=== PATIENT | female | born 1940 | race Caucasian/White ===

== ENCOUNTER 2017-07-27 16:49 | Inpatient (IN) | payer MEDICARE, SELFPAY ==
[2017-07-27] VITALS (15 sets, daily range): BP systolic 124–160; BP diastolic 57–112; PULSE 88–135; RESP 16–28; TEMP 36.9–37.1; O2SAT 94–100; BMI 30.7; BMI 30.8
--- NOTE | 2017-07-27 17:00 | EKG12_ITS ---
Test Reason : CP/SOB Blood Pressure : / mmHG Vent. Rate : 104 BPM Atrial Rate : 104 BPM P-R Int : 168 ms QRS Dur : 090 ms QT Int : 366 ms P-R-T Axes : 075 -05 166 degrees QTc Int : 481 ms Sinus tachycardia Left ventricular hypertrophy with repolarization abnormality , inferior lateral ischemia Abnormal ECG Confirmed by SILVINA CHEW, NILSON ([id number]), editor greeting card THAD HOOKER ([id number]) on 08/01/2017 9:07:45 AM Referred By: DR PEREZ Confirmed By:NILSON COOL MD
--- NOTE | 2017-07-27 17:09 | CT_ITS ---
STUDY: CTA CHEST REASON FOR EXAM: Female, 77 years old. Extreme shortness of breath and abdominal pain RADIATION DOSAGE (If Supplied By Facility): CTDIvol = ( 22.83 ) mGy, DLP = ( 1308.29 ) mGycm TECHNIQUE: The examination was performed with the intravenous administration of 100ML ml of Isovue 370 contrast material. Post-processing of the angiographic images was performed, with multiplanar reformation and 3D reconstruction. Individualized dose optimization techniques were used for this CT. COMPARISON: None. FINDINGS: Unremarkable thyroid Normal enhancement of the main pulmonary artery and right and left pulmonary arteries. Normal enhancement of the bilateral peripheral pulmonary arteries. There is no demonstrated pulmonary embolism. Normal thoracic aorta and visualized great vessels. There is no demonstrated aortic dissection. There is cardiomegaly. Normal pericardium. Several small mediastinal lymph nodes. Normal hilar regions. Normal visualized trachea and bronchi. Lungs are mildly hypoinflated. Diffuse interstitial edema and vascular congestion is noted with air trapping. Bibasilar consolidation and effusions. Normal chest wall structures. There are degenerative changes of thoracic spine. IMPRESSION: 1. Negative for pulmonary embolism or thoracic aortic dissection. Diffuse interstitial edema, vascular congestion and CHF with bibasilar effusions 2. Small mediastinal lymph nodes Electronically Signed: Jhoan Myers DO at 19:06 EST Tel , Service support , STUDY: CTA OF THE ABDOMINAL AORTA REASON FOR EXAM: Female, 77 years old. Abdominal pain RADIATION DOSAGE (If Supplied By Facility): CTDIvol = ( ) mGy, DLP = ( ) mGycm TECHNIQUE: Axial CT angiography multi-detector data acquisition was obtained from the hemidiaphragms to the pubic symphysis following intravenous administration of 100ML ml of Isovue 370 contrast. Axial images and MIP images were reconstructed from the axial data set. Post-processing of the angiographic images was performed, with multiplanar reformation and 3D reconstruction. Individualized dose optimization techniques were used for this CT. TECHNICAL QUALITY: Good COMPARISON: None. Descriptors of Narrowing: None (0%) Mild (< 50%) Moderate (50-70%) Severe (70-90%) Subtotal/Total Occlusion (90-100%) Non-Evaluable (technically non-diagnostic FINDINGS: Abdominal aorta: There is mild diffuse narrowing. Celiac and superior mesenteric arteries: There is moderate diffuse narrowing. Inferior mesenteric artery: No demonstrated narrowing. Right renal artery(arteries): There is moderate diffuse narrowing. Left renal artery(arteries): There is mild diffuse narrowing. Right common iliac artery: There is mild diffuse narrowing. Right external iliac artery: There is mild diffuse narrowing. Right internal iliac artery: There is mild diffuse narrowing. Left common iliac artery: There is mild diffuse narrowing. Left external iliac artery: There is mild diffuse narrowing. Left internal iliac artery: There is mild diffuse narrowing. Grossly unremarkable liver outside of nodular contour suggesting cirrhosis. Status post cholecystectomy. Unremarkable spleen. Heavily calcified splenic artery. Fatty atrophy of the pancreas. Unremarkable adrenal glands. Mild atrophy of the kidneys, otherwise within normal limits. Unremarkable stomach and small bowel. Large bowel demonstrates chronic diverticulosis without evidence of acute diverticulitis. Nonvisualized appendix. No concerning lymphadenopathy. Unremarkable bladder. Atrophy of the uterus. No pelvic free fluid. Small fat-containing periumbilical hernia. Osseous degenerative changes CT/CTA Pelvis W/WO Contrast IMPRESSION: Mild to moderate atherosclerotic disease of the abdominal aorta with mild narrowing. 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 Remainder as detailed above. No dissection or aneurysm. Electronically Signed: Jhoan Myers DO at 19:09 EST Tel , Service support ,
--- NOTE | 2017-07-27 17:09 | CT_ITS ---
STUDY: CTA CHEST REASON FOR EXAM: Female, 77 years old. Extreme shortness of breath and abdominal pain RADIATION DOSAGE (If Supplied By Facility): CTDIvol = ( 22.83 ) mGy, DLP = ( 1308.29 ) mGycm TECHNIQUE: The examination was performed with the intravenous administration of 100ML ml of Isovue 370 contrast material. Post-processing of the angiographic images was performed, with multiplanar reformation and 3D reconstruction. Individualized dose optimization techniques were used for this CT. COMPARISON: None. FINDINGS: Unremarkable thyroid Normal enhancement of the main pulmonary artery and right and left pulmonary arteries. Normal enhancement of the bilateral peripheral pulmonary arteries. There is no demonstrated pulmonary embolism. Normal thoracic aorta and visualized great vessels. There is no demonstrated aortic dissection. There is cardiomegaly. Normal pericardium. Several small mediastinal lymph nodes. Normal hilar regions. Normal visualized trachea and bronchi. Lungs are mildly hypoinflated. Diffuse interstitial edema and vascular congestion is noted with air trapping. Bibasilar consolidation and effusions. Normal chest wall structures. There are degenerative changes of thoracic spine. IMPRESSION: 1. Negative for pulmonary embolism or thoracic aortic dissection. Diffuse interstitial edema, vascular congestion and CHF with bibasilar effusions 2. Small mediastinal lymph nodes Electronically Signed: Jhoan Myers DO at 19:06 EST Tel , Service support , STUDY: CTA OF THE ABDOMINAL AORTA REASON FOR EXAM: Female, 77 years old. Abdominal pain RADIATION DOSAGE (If Supplied By Facility): CTDIvol = ( ) mGy, DLP = ( ) mGycm TECHNIQUE: Axial CT angiography multi-detector data acquisition was obtained from the hemidiaphragms to the pubic symphysis following intravenous administration of 100ML ml of Isovue 370 contrast. Axial images and MIP images were reconstructed from the axial data set. Post-processing of the angiographic images was performed, with multiplanar reformation and 3D reconstruction. Individualized dose optimization techniques were used for this CT. TECHNICAL QUALITY: Good COMPARISON: None. Descriptors of Narrowing: None (0%) Mild (< 50%) Moderate (50-70%) Severe (70-90%) Subtotal/Total Occlusion (90-100%) Non-Evaluable (technically non-diagnostic FINDINGS: Abdominal aorta: There is mild diffuse narrowing. Celiac and superior mesenteric arteries: There is moderate diffuse narrowing. Inferior mesenteric artery: No demonstrated narrowing. Right renal artery(arteries): There is moderate diffuse narrowing. Left renal artery(arteries): There is mild diffuse narrowing. Right common iliac artery: There is mild diffuse narrowing. Right external iliac artery: There is mild diffuse narrowing. Right internal iliac artery: There is mild diffuse narrowing. Left common iliac artery: There is mild diffuse narrowing. Left external iliac artery: There is mild diffuse narrowing. Left internal iliac artery: There is mild diffuse narrowing. Grossly unremarkable liver outside of nodular contour suggesting cirrhosis. Status post cholecystectomy. Unremarkable spleen. Heavily calcified splenic artery. Fatty atrophy of the pancreas. Unremarkable adrenal glands. Mild atrophy of the kidneys, otherwise within normal limits. Unremarkable stomach and small bowel. Large bowel demonstrates chronic diverticulosis without evidence of acute diverticulitis. Nonvisualized appendix. No concerning lymphadenopathy. Unremarkable bladder. Atrophy of the uterus. No pelvic free fluid. Small fat-containing periumbilical hernia. 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 Remainder as detailed above. No dissection or aneurysm. Electronically Signed: Jhoan Myers DO at 19:09 EST Tel , Service support ,
--- NOTE | 2017-07-27 17:09 | CT_ITS ---
STUDY: CTA CHEST REASON FOR EXAM: Female, 77 years old. Extreme shortness of breath and abdominal pain RADIATION DOSAGE (If Supplied By Facility): CTDIvol = ( 22.83 ) mGy, DLP = ( 1308.29 ) mGycm TECHNIQUE: The examination was performed with the intravenous administration of 100ML ml of Isovue 370 contrast material. Post-processing of the angiographic images was performed, with multiplanar reformation and 3D reconstruction. Individualized dose optimization techniques were used for this CT. COMPARISON: None. FINDINGS: Unremarkable thyroid Normal enhancement of the main pulmonary artery and right and left pulmonary arteries. Normal enhancement of the bilateral peripheral pulmonary arteries. There is no demonstrated pulmonary embolism. Normal thoracic aorta and visualized great vessels. There is no demonstrated aortic dissection. There is cardiomegaly. Normal pericardium. Several small mediastinal lymph nodes. Normal hilar regions. Normal visualized trachea and bronchi. Lungs are mildly hypoinflated. Diffuse interstitial edema and vascular congestion is noted with air trapping. Bibasilar consolidation and effusions. Normal chest wall structures. There are degenerative changes of thoracic spine. IMPRESSION: 1. Negative for pulmonary embolism or thoracic aortic dissection. Diffuse interstitial edema, vascular congestion and CHF with bibasilar effusions 2. Small mediastinal lymph nodes Electronically Signed: Jhoan Myers DO at 19:06 EST Tel , Service support , STUDY: CTA OF THE ABDOMINAL AORTA REASON FOR EXAM: Female, 77 years old. Abdominal pain RADIATION DOSAGE (If Supplied By Facility): CTDIvol = ( ) mGy, DLP = ( ) mGycm TECHNIQUE: Axial CT angiography multi-detector data acquisition was obtained from the hemidiaphragms to the pubic symphysis following intravenous administration of 100ML ml of Isovue 370 contrast. Axial images and MIP images were reconstructed from the axial data set. Post-processing of the angiographic images was performed, with multiplanar reformation and 3D reconstruction. Individualized dose optimization techniques were used for this CT. TECHNICAL QUALITY: Good COMPARISON: None. Descriptors of Narrowing: None (0%) Mild (< 50%) Moderate (50-70%) Severe (70-90%) Subtotal/Total Occlusion (90-100%) Non-Evaluable (technically non-diagnostic FINDINGS: Abdominal aorta: There is mild diffuse narrowing. Celiac and superior mesenteric arteries: There is moderate diffuse narrowing. Inferior mesenteric artery: No demonstrated narrowing. Right renal artery(arteries): There is moderate diffuse narrowing. Left renal artery(arteries): There is mild diffuse narrowing. Right common iliac artery: There is mild diffuse narrowing. Right external iliac artery: There is mild diffuse narrowing. Right internal iliac artery: There is mild diffuse narrowing. Left common iliac artery: There is mild diffuse narrowing. Left external iliac artery: There is mild diffuse narrowing. Left internal iliac artery: There is mild diffuse narrowing. Grossly unremarkable liver outside of nodular contour suggesting cirrhosis. Status post cholecystectomy. Unremarkable spleen. Heavily calcified splenic artery. Fatty atrophy of the pancreas. Unremarkable adrenal glands. Mild atrophy of the kidneys, otherwise within normal limits. Unremarkable stomach and small bowel. Large bowel demonstrates chronic diverticulosis without evidence of acute diverticulitis. Nonvisualized appendix. No concerning lymphadenopathy. Unremarkable bladder. Atrophy of the uterus. No pelvic free fluid. Small fat-containing periumbilical hernia. 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 Remainder as detailed above. No dissection or aneurysm. Electronically Signed: Jhoan Myers DO at 19:09 EST Tel , Service support ,
[2017-07-27] MEDS: Ipratropium/Albuterol Sulfate 3 ML AMPUL.NEB INHALATION (17:42)
[2017-07-27] MEDS: Albuterol 2.5 MG/3 ML VIAL.NEB. INHALATION ×3 (17:42)
[2017-07-27] MEDS: LORazepam 1 MG Tablet PO (17:47)
[2017-07-27 18:18] LABS: Mucous, Urine 0 SEEN /hpf (<or=2+); White Blood Cells 0 SEEN /hpf (0-5)
[2017-07-27 18:20] LABS: Color, Urine Yellow (Yellow); Glucose, Dipstick 250 mg/dl (Normal); Ketone-Dipstick Negative (Negative); Leukocyte Esterase-Dipstick Negative /ul (Negative); Nitrite-Dipstick Negative (Negative); Occult Blood-Urine 25 /ul (Negative); Protein-Dipstick 500 mg/dl (Negative); Urine Bilirubin Dipstick Negative (Negative); Urine Clarity Sl. Cloudy (Clear); Urine Urobilinogen 1 mg/dl (Normal)
[2017-07-27 18:26] LABS: Absolute Lymphocyte Count 1.26 X10^3/ul (0.83-4.51); Absolute Neutrophil Count 3.8 X10^3/uL (2.0-7.7); Basophil# 0.03 X10^3/uL; Basophil% 0.5 % (0-1); Eosinophil# 0.18 X10^3/uL; Eosinophils% 3.3 % (0-5); Hematocrit 40.4 % (37-47); Lymphocyte # 1.26 X10^3/ul (4.0); Mean Corp Hgb Conc 32.2 g/gl (32-36); Mean Corpuscular Hgb 30.4 pg (27.0-32.0); Mean Corpuscular Volume 94.6 fL (81-99); Mean Platelet Vol. 9.8 fl (6.2-12.0); Monocyte# 0.25 X10^3/uL; Monocyte% 4.6 % (0-10); Neutrophil # 3.76 X10^3/uL (2.7-7.7); Neutrophil % 68.4 % (47-70); POSITIVE COUNT NO; POSITIVE DIFFERENTIAL NO; POSITIVE MORPHOLOGY NO; Platelet Count 132 K/mm3 (150-450); RBC Distribution Width CV 13.8 % (11.6-14.6); RBC Distribution Width SD 47.7 fl (35.1-43.9); Red Blood Count 4.27 M/mm3 (4.2-5.4); White Blood Count 5.5 K/mm3 (4.4-11.0)
[2017-07-27 18:29] LABS: Amorphous Sediment 2+ URATE; Bacteria RARE /hpf (None Seen); Hyaline Cast 0-5 SEEN /lpf (0-5); Red Blood Cells-Urine 5-10 SEEN /hpf (0-5); Squamous Epithelial Cells - UA 0-5 SEEN /hpf (5-10)
[2017-07-27] MEDS: Ondansetron 4 MG/2 ML Vial IV (18:37)
--- NOTE | 2017-07-27 18:41 | ED.VISSUMM ---
- ER Visit Summary Date of Service: 07/27/17 Chief Complaint: Shortness of breath History of Present Illness: The patient is a 77 F presenting with shortness of breath. Patient states that she suddenly became short of breath today. She is having trouble taking a deep breath. She is agitated on arrival. She complains of abdominal pain. She initially denies chest pain. She is agitated and continually states that she cannot breathe. Physical Examination: Vitals are stable. Patient is afebrile. Alert mild distress. HEENT exam is unremarkable. Neck is supple. Lungs are diminished bilaterally. Tachypnea. Retractions. Heart is regular and tachycardic. Abdomen is soft nontender nondistended. No guarding or rebound Extremities are unremarkable. Skin is warm and dry. No focal neurologic deficit. Remainder of exam is unremarkable. Emergency Department Course and Treatment: Patient refuses nonrebreather mask as well as BiPAP. She states she is unable to tolerate the mask. She was given Ativan p.o. She had some improvement and we are able to obtain an IV and blood work. EKG shows sinus tachycardia rate 104 with LVH, inferior lateral ST depression. This is changed from previous. CBC shows platelets 132. Chemistries show glucose 267. Urinalysis shows 5-10 red blood cells otherwise unremarkable. Troponin is 0.69. Lactic acid 3.9. When her lactic acid returned at 3.9 she was given IV fluids. She then had a CTA chest abdomen pelvis which showed no PE or dissection. Diffuse edema, vascular congestion, CHF. Bilateral effusions. CT abdomen and pelvis shows no evidence of dissection. Fluids were stopped and she was given IV Lasix. On repeat evaluation she has no chest pain. She has mild upper abdominal pain. She is resting comfortably on nasal cannula. Discussed with Dr. Rodas for admission. Disposition: Admission Impression: CHF exacerbation, elevated troponin This note was generated with [employer] dictation software. It may contain incorrect words, spelling, and punctuation that were not noted in review of the chart prior to signing ED Disposition - Plan for ED Patient: Chief Complaint: Shortness of Breath Referrals: Diana Cohen MD [Primary Care Provider] -
[2017-07-27] MEDS: Aspirin 81 MG TAB.CHEW 324 MG PO (18:42)
[2017-07-27 18:49] LABS: Lactic Acid 3.9 mmol/L (0.4-2.0)
[2017-07-27 18:51] LABS: Anion Gap 10 (5-15); BUN 11 mg/dL (7-18); BUN/Creat Ratio 15.1 RATIO (10-20); Chloride 104 mmol/L (98-107); Creatinine, Serum 0.73 mg/dL (0.55-1.02); EST Glomerular Filtration Rate 82 mL/min (>60); Est Glom Filt Rate - Afr Amer 99 mL/min (>60); Estimated Creatinine Clearance 45.09 ml/min; Glucose 267 mg/dL (70-110); Sodium Level 139 mmol/L (136-145)
--- NOTE | 2017-07-27 18:56 | ED.RN ---
LACTIC ACID 3.9 AND TROP 0.[address] LAB. DR PEREZ AWARE
[2017-07-27] MEDS: Furosemide 40 MG/4 ML Vial IV (20:00)
--- NOTE | 2017-07-27 20:49 | PCM.HP.STD ---
Problem List (1) Obesity (BMI 30.0-34.9) Status: Chronic (2) CAD (coronary artery disease) Status: Chronic Qualifiers: Coronary Disease-Associated Artery/Lesion type: unspecified vessel or lesion type [place] vs. 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 of insulin; Z79.4 - shelter (current) use of insulin; Z79.4 - assistant terminal manager (current) use of insulin; Z79.4 - shelter (current) use of insulin (4) Hyperlipidemia Status: Chronic Qualifiers: Hyperlipidemia type: unspecified Qualified Code(s): E78.5 - Hyperlipidemia, unspecified (5) Hypothyroidism Status: Chronic Qualifiers: Hypothyroidism type: unspecified Qualified Code(s): E03.9 - Hypothyroidism, unspecified (6) Hypertension Status: Chronic Qualifiers: Hypertension type: essential hypertension Qualified Code(s): I10 - Essential (primary) hypertension (7) Cognitive changes Status: Chronic (8) Pancytopenia Status: Chronic (9) S/P PTCA (percutaneous transluminal coronary angioplasty) Status: Chronic (10) Mitral valve insufficiency Status: Chronic Qualifiers: Cardiac valve disease etiology: etiology unspecified Qualified Code(s): I34.0 - Nonrheumatic mitral (valve) insufficiency (11) Tricuspid valve insufficiency Status: Chronic Qualifiers: Cardiac valve disease etiology: etiology unspecified Qualified Code(s): I07.1 - Rheumatic tricuspid insufficiency (12) CHF (congestive heart failure) Status: Chronic Qualifiers: Congestive heart failure type: diastolic Congestive heart failure chronicity: chronic Qualified Code(s): I50.32 - Chronic diastolic (congestive) heart failure (13) Venous insufficiency Status: Chronic History of Present Illness Date of Admission: 07/27/17 Chief Complaint: Dsypnea, epigastric pain The patient is a 77 y/o F w/ PMHx: Obesity, CAD, HTN, HLD, Diabetes mellitus type II, Chronic Pancytopenia, Valvular Heart Disease, PVD, Diastolic CHF, Cognitive changes, Hypothyroidism, recent admission 06/30/17-07/03/17 w/ NSTEMI, acute diastolic CHF exacerbation with notable history multivessel CAD not amenable to PCI w/ transfer to [facility] for consideration for CABG x 2 however declined per patient who now re-presents to the [facility] ED on 07/27/17 w/ progressively worsening dyspnea over the last several days, severely worse today with onset additionally epigastric pain with nausea. In the ED she was initially very agitated, would not calm down, noting severe shortness of breath with increased RR, accessory muscle usage, diaphoresis, but was eventually given ativan and following interventions and work-up were initiated. In the ED work-up included T 98.5, heart rate 125, BP 127/86, respiratory rate 25, 95% on 6 L nasal cannula, unremarkable CBC, BMP with glucose 267, lactic acid 3.9, troponin 0 0.69 with most recent end STEMI admission with last troponin 06/30/17 1.11, UA without evidence of UTI, influenza rapid negative, EKG w/ sinus tachycardia with inferior ST depressions worse than prior, CTA abdomen with moderate atherosclerotic disease of the abdominal aorta with mild narrowing, atherosclerotic disease of the takeoff of the SMA and bilateral renal arteries with mild to moderate ring with no evidence of dissection or aneurysm, CTA Chest w/ no evidence of PE or thoracic aortic dissection, diffuse interstitial edema, vascular congestion with bibasilar effusions, small mediastinal lymph nodes noted. In the ED patient administered zofran, ativan, lasix 40 mg IV x 1, asa 325 mg po x 1, duonebs, albuterol. Past Medical History Past Medical History (Chronic Problems): Chronic Problems Obesity (BMI 30.0-34.9) (Chronic) CAD (coronary artery disease) (Chronic) Diabetes mellitus, type II (Chronic) Hyperlipidemia (Chronic) Hypothyroidism (Chronic) Hypertension (Chronic) Cognitive changes (Chronic) Pancytopenia (Chronic) S/P PTCA (percutaneous transluminal coronary angioplasty) (Chronic) Mitral valve insufficiency (Chronic) Tricuspid valve insufficiency (Chronic) Intermittent claudication (Chronic) CHF (congestive heart failure) (Chronic) Venous insufficiency (Chronic) Allergies atorvastatin calcium [From Lipitor] Adverse Reaction (Verified 06/30/17 04:58) Unknown rosiglitazone maleate [From Avandia] Adverse Reaction (Verified 06/30/17 04:58) Other Home Medications: Ambulatory Orders Medication Instructions Recorded Aspirin [Aspirin, Baby] 81 mg PO DAILY@0800 06/30/17 Carvedilol [Coreg] 12.5 mg PO BID 06/30/17 Clopidogrel Bisulfate [Clopidogrel] 75 mg PO DAILY 06/30/17 Furosemide [Lasix] 40 mg PO DAILY 06/30/17 Insulin Glargine,Hum.rec.anlog 30 unit SQ DAILY 06/30/17 [[place]o Solostar] Insulin Regular, Human [Humulin R] 0 unit ACHS 06/30/17 Isosorbide Mononitrate [Isosorbide 30 mg PO DAILY 06/30/17 Mononitrate ER] Levothyroxine [Synthroid] 175 mcg PO DAILY 06/30/17 Losartan Potassium [Cozaar] 50 mg PO DAILY 06/30/17 Nitroglycerin [Nitrostat] 0.4 mg SL PRN PRN 06/30/17 Potassium Chloride [K-Tab ER] 8 meq PO DAILY 06/30/17 Pravastatin [Pravachol] 80 mg PO DAILY 06/30/17 Ranolazine [Ranexa] 500 mg PO BID 06/30/17 TraMADol [Ultram] 50 mg PO BID PRN 07/02/17 Surgical History: angioplasty, appendectomy, cholecystectomy, tonsillectomy, - - Spinal fusion Psychiatric History: No pertinent psych hx 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 Denies: Chills, Fever, Weight Change HEENT: Denies: Head Aches, Sinus Congestion, Sinus Drainage Cardiovascular: Denies: Chest Pain, Palpitations Respiratory: Reports: Shortness of Breath, Shortness of breath at rest, Shortness of breath upon exertion. Denies: Cough, Sputum production, Wheezing Gastrointestinal: Reports: Abdominal Pain, Nausea. Denies: Vomiting Genitourinary: Denies: Dysuria Musculoskeletal: Denies: Joint Pain, Joint Tenderness Skin: Denies: Rash, Wounds Neurological: Denies: Numbness, Tingling, Focal weakness Psychiatric: Denies: Anxiety, Depression, Homicidal Ideations, Suicidal Ideations Hematologic/ Lymphatic: Reports: Anemia, Easy Bruising, Easy Bleeding VTE Information - Inpt Only VTE Present on Admission: No VTE Mechan Device Prophylaxis: SCD's VTE Pharm Prophylaxis ordered?: Yes Subjective: Seated upright in the ED, currently more calm, RR decreased from initial presentation, not currently using accessory muscles which has improved since initial presentation. Objective: Physical Examination: General: awake, alert, oriented x 3 and cooperative, seated upright in the ED bed, now calm, improved RR, improved lessened accessory muscle usage. Skin: normal color, turgor, no icterus, cyanosis except occasional strongly ecchymoses. HEENT: AT/NC, EOMI, PERRLA, MMM, no carotid bruits, + JVD noted. Lungs: Severely diminished breath sounds diffusely, greater bases, close to midlung bilaterally, poor effort, no wheezing. Heart: Tachycardic with regular rhythm; no gallop, rub audible. Abdomen: soft, obese, NTTP, ND, normal BS, no HSM. Extremities: no cyanosis, clubbing, BL LE 2+ pitting edema foot to proximal thigh, L >R which is chronic she notes. Neurological: patient awake, alert, oriented x 3; cognitive function baseline intact, baseline decreased; pupils equally reactive to light and accomodation; cranial nerves II-XII grossly normal, moving all 4 extremities, no focal deficits, strength severely globally decreased secondary to acute presentation. Psychiatric: affect appears flat, no acute evidence of depressive or anxiety feelings. - Physical Exam Vital Signs Temp Pulse Resp BP Pulse Ox 98.5 F 104 H 19 H 144/78 H 100 07/27/17 20:00 07/27/17 20:00 07/27/17 20:00 07/27/17 20:00 07/27/17 20:00 Oxygen Flow Rate 4 Oxygen Delivery Method Nasal Cannula Weight: 196 lb 6.557 oz Body Mass Index (BMI) 30.7 Finger Stick Blood Glucose 270 Microbiology Past 72 Hours 07/27/17 17:35 Influenza Types A,B Direct FA (TARUN) - Final Mucosa - Nasopharyngeal Laboratory Tests Past 24 Hrs 07/27/17 07/27/17 07/27/17 18:00 18:00 18:00 WBC 5.5 RBC 4.27 Hgb 13.0 Hct 40.4 MCV 94.6 MCH 30.4 MCHC 32.2 RDW 13.8 RDW Differential 47.7 H Plt Count 132 L MPV 9.8 Immature Gran % (Auto) 0.200 Neut % (Auto) 68.4 Lymph % (Auto) 23.0 [place] % (Auto) 4.6 Eos % (Auto) 3.3 Baso % (Auto) 0.5 Absolute Neuts (auto) 3.8 Absolute Lymphs (auto) 1.26 Total Counted Not Reportable Sodium 139 Potassium 4.0 Chloride 104 Carbon Dioxide 25.0 Anion Gap 10 BUN 11 Creatinine 0.73 Estim Creat Clear Calc 45.09 Est GFR (MDRD) Af Amer 99 Est GFR (MDRD) Non-Af 82 BUN/Creatinine Ratio 15.1 Glucose 267 H Lactic Acid 3.9 H Calcium 9.0 Troponin I 0.69 H* Urine Color Urine Clarity Urine pH Ur Specific [place] Urine Protein Urine Glucose (UA) Urine Ketones Urine Occult Blood Urine Nitrite Urine Bilirubin Urine Urobilinogen Ur Leukocyte Esterase Urine RBC Urine WBC Ur Squamous Epith Cells Amorphous Sediment Urine Bacteria Hyaline Casts Urine Mucus 07/27/17 18:15 WBC RBC Hgb Hct MCV MCH MCHC RDW RDW Differential Plt Count MPV Immature Gran % (Auto) Neut % (Auto) Lymph % (Auto) [place] % (Auto) Eos % (Auto) Baso % (Auto) Absolute Neuts (auto) Absolute Lymphs (auto) Total Counted Sodium Potassium Chloride Carbon Dioxide Anion Gap BUN Creatinine Estim Creat Clear Calc Est GFR (MDRD) Af Amer Est GFR (MDRD) Non-Af BUN/Creatinine Ratio Glucose Lactic Acid Calcium Troponin I Urine Color Yellow Urine Clarity Sl. Cloudy Urine pH 6.0 Ur Specific [place] 1.020 Urine Protein 500 H Urine Glucose (UA) 250 H Urine Ketones Negative Urine Occult Blood 25 H Urine Nitrite Negative Urine Bilirubin Negative Urine Urobilinogen 1 H Ur Leukocyte Esterase Negative Urine RBC 5-10 SEEN Urine WBC 0 SEEN Ur Squamous Epith Cells 0-5 SEEN Amorphous Sediment 2+ URATE Urine Bacteria RARE Hyaline Casts 0-5 SEEN Urine Mucus 0 SEEN Assessment/Plan The patient is a 77 y/o F w/ PMHx: Obesity, CAD, HTN, HLD, Diabetes mellitus type II, Chronic Pancytopenia, Valvular Heart Disease, PVD, Diastolic CHF, Cognitive changes, Hypothyroidism, recent admission 06/30/17-07/03/17 w/ NSTEMI, acute diastolic CHF exacerbation with notable history multivessel CAD not amenable to PCI w/ transfer to [facility] for consideration for CABG x 2 however declined per patient who now re-presents to the [facility] ED on 07/27/17 w/ progressively worsening dyspnea over the last several days, severely worse today with onset additionally epigastric pain with nausea. (1) Acute Hypoxic Respiratory Failure secondary to Acute Decompensated Diastolic CHF: CTPA obtained in the ED w/ notable congestion, BL effusions, no evidence dissection or aneurysm on CTA abdomen and chest. Patient administered IV lasix in the ED, will admit to PCU, maintain on cardiac telemetry, obtain cardiac enzyme series, obtain serial EKGs, continue IV lasix diuresis, monitor I/Os, maintain on intake restriction, continue medical therapy w/ asa, statin, BB, ACEI, aldosterone antagonists. Will obtain TSH and magnesium level. Most recent ECHO noted 2014 thus will repeat. Cardiology consulted, pending. PRN morphine to decrease afterload, continue oxygen supplementation, if necessary will position w/ upright position with legs off bed to decrease preload. (2) Recent NSTEMI w/ Epigastric Discomfort w/ Inferior EKG depressions (Prior Noted Admission also): Unclear specific etiology, recent admission w/ NSTEMI w/ CAD w/ transfer to [facility] for CABG x 2 which she then declined and notes still declines currently. Admission trop 0.69, last 1.11 prior to this, will as noted maintain on telemetry, cycle cardiac enzymes, obtain magnesium and supplement if needed, repeat EKG in AM. Will obtain lipase also given atypical presentation. Maintain on asa, plavix, statin, coreg, ARB, isosorbide. Will consult Cardiology as noted #1. (2) Diabetes mellitus type II: Hold oral home regimen, continue home insulin regimen, ADA diet, accu checks w/ ISS. (3) CAD: Multivessel disease as noted, not candidate for PCI thus prior admission with transition to [facility] for planned CABG however she declined. Will continue home regimen asa, plavix, statin, BB. (4) Hypertension: Continue home regimen including Coreg, losartan, IV Lasix as noted, isosorbide, PRN hydralazine. (5) Hyperlipidemia: Continue home statin regimen. AM FLP. (6) Hypothyroidism: Continue home synthroid regimen, TSH pending. (7) Obesity: Weight loss and lifestyle changes encouraged. (8) DVT prophylaxis: SCD, lovenox. (9) CODE status: Discussed CODE status at length including difference between FULL code, DNR-CCA and DNR-CC status. Following discussions about the differences in these status, requested continued FULL CODE despite lengthy discussions about recent refusal of CABG. Advanced Care Planning Face to Face Time: 25 minutes. Code Visit Inpatient E&M: 84711 Init Hosp L3 Procedures: 72581 Advncd Care Plan 30 Min
--- NOTE | 2017-07-27 21:00 | HP.PCM_ITS ---
Problem List (1) Obesity (BMI 30.0-34.9) Status: Chronic (2) CAD (coronary artery disease) Status: Chronic Qualifiers: Coronary Disease-Associated Artery/Lesion type: unspecified vessel or lesion type [place] vs. transplanted heart: unspecified whether [place] or transplanted heart Associated angina: angina presence unspecified Qualified Code(s): I25.10 - Atherosclerotic heart disease of [place] coronary artery without angina pectoris (3) Diabetes mellitus, type II Status: Chronic Qualifiers: Diabetes mellitus complication status: with unspecified complications Diabetes mellitus [facility] insulin use: with [facility] use Qualified Code(s) : E11.8 - Type 2 diabetes mellitus with unspecified complications; Z79.4 - [facility] (current) use of insulin; Z79.4 - technician terminal and repeater (current) use of insulin; Z79.4 - technician terminal and repeater (current) use of insulin; Z79.4 - [facility] (current) use of insulin (4) Hyperlipidemia Status: Chronic Qualifiers: Hyperlipidemia type: unspecified Qualified Code(s): E78.5 - Hyperlipidemia , unspecified (5) Hypothyroidism Status: Chronic Qualifiers: Hypothyroidism type: unspecified Qualified Code(s): E03.9 - Hypothyroidism , unspecified (6) Hypertension Status: Chronic Qualifiers: Hypertension type: essential hypertension Qualified Code(s): I10 - Essential (primary) hypertension (7) Cognitive changes Status: Chronic (8) Pancytopenia Status: Chronic (9) S/P PTCA (percutaneous transluminal coronary angioplasty) Status: Chronic (10) Mitral valve insufficiency Status: Chronic Qualifiers: Cardiac valve disease etiology: etiology unspecified Qualified Code(s): I34.0 - Nonrheumatic mitral (valve) insufficiency (11) Tricuspid valve insufficiency Status: Chronic Qualifiers: Cardiac valve disease etiology: etiology unspecified Qualified Code(s): I07.1 - Rheumatic tricuspid insufficiency (12) CHF (congestive heart failure) Status: Chronic Qualifiers: Congestive heart failure type: diastolic Congestive heart failure chronicity: chronic Qualified Code(s): I50.32 - Chronic diastolic (congestive ) heart failure (13) Venous insufficiency Status: Chronic History of Present Illness Date of Admission: 07/27/17 Chief Complaint: Dsypnea, epigastric pain The patient is a 77 y/o F w/ PMHx: Obesity, CAD, HTN, HLD, Diabetes mellitus type II, Chronic Pancytopenia, Valvular Heart Disease, PVD, Diastolic CHF, Cognitive changes, Hypothyroidism, recent admission 06/30/17-07/03/17 w/ NSTEMI , acute diastolic CHF exacerbation with notable history multivessel CAD not amenable to PCI w/ transfer to [facility] for consideration for CABG x 2 however declined per patient who now re-presents to the [facility] ED on 07/27/17 w/ progressively worsening dyspnea over the last several days, severely worse today with onset additionally epigastric pain with nausea. In the ED she was initially very agitated, would not calm down, noting severe shortness of breath with increased RR, accessory muscle usage, diaphoresis, but was eventually given ativan and following interventions and work-up were initiated. In the ED work-up included T 98.5, heart rate 125, BP 127/86, respiratory rate 25, 95% on 6 L nasal cannula, unremarkable CBC, BMP with glucose 267, lactic acid 3.9, troponin 0 0.69 with most recent end STEMI admission with last troponin 1.11, UA without evidence of UTI, influenza rapid negative, EKG w/ sinus tachycardia with inferior ST depressions worse than prior, CTA abdomen with moderate atherosclerotic disease of the abdominal aorta with mild narrowing, atherosclerotic disease of the takeoff of the SMA and bilateral renal arteries with mild to moderate ring with no evidence of dissection or aneurysm, CTA Chest w/ no evidence of PE or thoracic aortic dissection, diffuse interstitial edema, vascular congestion with bibasilar effusions, small mediastinal lymph nodes noted. In the ED patient administered zofran, ativan, lasix 40 mg IV x 1, asa 325 mg po x 1, duonebs, albuterol. Past Medical History Past Medical History (Chronic Problems): Chronic Problems Obesity (BMI 30.0-34.9) (Chronic) CAD (coronary artery disease) (Chronic) Diabetes mellitus, type II (Chronic) Hyperlipidemia (Chronic) Hypothyroidism (Chronic) Hypertension (Chronic) Cognitive changes (Chronic) Pancytopenia (Chronic) S/P PTCA (percutaneous transluminal coronary angioplasty) (Chronic) Mitral valve insufficiency (Chronic) Tricuspid valve insufficiency (Chronic) Intermittent claudication (Chronic) CHF (congestive heart failure) (Chronic) Venous insufficiency (Chronic) Allergies atorvastatin calcium [From Lipitor] Adverse Reaction (Verified 06/30/17 04:58) Unknown rosiglitazone maleate [From Avandia] Adverse Reaction (Verified 06/30/17 04:58) Other Home Medications: Ambulatory Orders Medication Instructions Recorded Aspirin [Aspirin, Baby] 81 mg PO DAILY@0800 06/30/17 Carvedilol [Coreg] 12.5 mg PO BID 06/30/17 Clopidogrel Bisulfate [Clopidogrel] 75 mg PO DAILY 06/30/17 Furosemide [Lasix] 40 mg PO DAILY 06/30/17 Insulin Glargine,Hum.rec.anlog 30 unit SQ DAILY 06/30/17 [Toujeo Solostar] Insulin Regular, Human [Humulin R] 0 unit ACHS 06/30/17 Isosorbide Mononitrate [Isosorbide 30 mg PO DAILY 06/30/17 Mononitrate ER] Levothyroxine [Synthroid] 175 mcg PO DAILY 06/30/17 Losartan Potassium [Cozaar] 50 mg PO DAILY 06/30/17 Nitroglycerin [Nitrostat] 0.4 mg SL PRN PRN 06/30/17 Potassium Chloride [K-Tab ER] 8 meq PO DAILY 06/30/17 Pravastatin [Pravachol] 80 mg PO DAILY 06/30/17 Ranolazine [Ranexa] 500 mg PO BID 06/30/17 TraMADol [Ultram] 50 mg PO BID PRN 07/02/17 Surgical History: angioplasty, appendectomy, cholecystectomy, tonsillectomy, - - Spinal fusion Psychiatric History: No pertinent psych hx LEAD CASTER History: No pertinent LEAD CASTER history Lives: Alone Smoking Status: Never smoker Tobacco Use: Non-smoker Alcohol: None Drugs: None - *Family History Maternal History Items: No pertinent history Paternal History Items: No pertinent history Review of Systems Constitutional: Reports: Malaise, Weakness, Fatigue. Denies: Chills, Fever, Weight Change HEENT: Denies: Head Aches, Sinus Congestion, Sinus Drainage Cardiovascular: Denies: Chest Pain, Palpitations Respiratory: Reports: Shortness of Breath, Shortness of breath at rest, Shortness of breath upon exertion. Denies: Cough, Sputum production, Wheezing Gastrointestinal: Reports: Abdominal Pain, Nausea. Denies: Vomiting Genitourinary: Denies: Dysuria Musculoskeletal: Denies: Joint Pain, Joint Tenderness Skin: Denies: Rash, Wounds Neurological: Denies: Numbness, Tingling, Focal weakness Psychiatric: Denies: Anxiety, Depression, Homicidal Ideations, Suicidal Ideations Hematologic/ Lymphatic: Reports: Anemia, Easy Bruising, Easy Bleeding VTE Information - Inpt Only VTE Present on Admission: No VTE Mechan Device Prophylaxis: SCD's VTE Pharm Prophylaxis ordered?: Yes Subjective: Seated upright in the ED, currently more calm, RR decreased from initial presentation, not currently using accessory muscles which has improved since initial presentation. Objective: Physical Examination: General: awake, alert, oriented x 3 and cooperative, seated upright in the ED bed, now calm, improved RR, improved lessened accessory muscle usage. Skin: normal color, turgor, no icterus, cyanosis except occasional strongly ecchymoses. HEENT: AT/NC, EOMI, PERRLA, MMM, no carotid bruits, + JVD noted. Lungs: Severely diminished breath sounds diffusely, greater bases, close to midlung bilaterally, poor effort, no wheezing. Heart: Tachycardic with regular rhythm; no gallop, rub audible. Abdomen: soft, obese, NTTP, ND, normal BS, no HSM. Extremities: no cyanosis, clubbing, BL LE 2+ pitting edema foot to proximal thigh, L >R which is chronic she notes. Neurological: patient awake, alert, oriented x 3; cognitive function baseline intact, baseline decreased; pupils equally reactive to light and accomodation; cranial nerves II-XII grossly normal, moving all 4 extremities, no focal deficits, strength severely globally decreased secondary to acute presentation. Psychiatric: affect appears flat, no acute evidence of depressive or anxiety feelings. - Physical Exam Vital Signs Temp Pulse Resp BP Pulse Ox 98.5 F 104 H 19 H 144/78 H 100 07/27/17 20:00 07/27/17 20:00 07/27/17 20:00 07/27/17 20:00 07/27/17 20:00 Oxygen Flow Rate 4 Oxygen Delivery Method Nasal Cannula Weight: 196 lb 6.557 oz Body Mass Index (BMI) 30.7 Finger Stick Blood Glucose 270 Microbiology Past 72 Hours 07/27/17 17:35 Influenza Types A,B Direct FA (TARUN) - Final Mucosa - Nasopharyngeal Laboratory Tests Past 24 Hrs 07/27/17 07/27/17 07/27/17 18:00 18:00 18:00 WBC 5.5 RBC 4.27 Hgb 13.0 Hct 40.4 MCV 94.6 MCH 30.4 MCHC 32.2 RDW 13.8 RDW Differential 47.7 H Plt Count 132 L MPV 9.8 Immature Gran % (Auto) 0.200 Neut % (Auto) 68.4 Lymph % (Auto) 23.0 [place] % (Auto) 4.6 Eos % (Auto) 3.3 Baso % (Auto) 0.5 Absolute Neuts (auto) 3.8 Absolute Lymphs (auto) 1.26 Total Counted Not Reportable Sodium 139 Potassium 4.0 Chloride 104 Carbon Dioxide 25.0 Anion Gap 10 BUN 11 Creatinine 0.73 Estim Creat Clear Calc 45.09 Est GFR (MDRD) Af Amer 99 Est GFR (MDRD) Non-Af 82 BUN/Creatinine Ratio 15.1 Glucose 267 H Lactic Acid 3.9 H Calcium 9.0 Troponin I 0.69 H* Urine Color Urine Clarity Urine pH Ur Specific [place] Urine Protein Urine Glucose (UA) Urine Ketones Urine Occult Blood Urine Nitrite Urine Bilirubin Urine Urobilinogen Ur Leukocyte Esterase Urine RBC Urine WBC Ur Squamous Epith Cells Amorphous Sediment Urine Bacteria Hyaline Casts Urine Mucus 07/27/17 18:15 WBC RBC Hgb Hct MCV MCH MCHC RDW RDW Differential Plt Count MPV Immature Gran % (Auto) Neut % (Auto) Lymph % (Auto) [place] % (Auto) Eos % (Auto) Baso % (Auto) Absolute Neuts (auto) Absolute Lymphs (auto) Total Counted Sodium Potassium Chloride Carbon Dioxide Anion Gap BUN Creatinine Estim Creat Clear Calc Est GFR (MDRD) Af Amer Est GFR (MDRD) Non-Af BUN/Creatinine Ratio Glucose Lactic Acid Calcium Troponin I Urine Color Yellow Urine Clarity Sl. Cloudy Urine pH 6.0 Ur Specific [place] 1.020 Urine Protein 500 H Urine Glucose (UA) 250 H Urine Ketones Negative Urine Occult Blood 25 H Urine Nitrite Negative Urine Bilirubin Negative Urine Urobilinogen 1 H Ur Leukocyte Esterase Negative Urine RBC 5-10 SEEN Urine WBC 0 SEEN Ur Squamous Epith Cells 0-5 SEEN Amorphous Sediment 2+ URATE Urine Bacteria RARE Hyaline Casts 0-5 SEEN Urine Mucus 0 SEEN Assessment/Plan The patient is a 77 y/o F w/ PMHx: Obesity, CAD, HTN, HLD, Diabetes mellitus type II, Chronic Pancytopenia, Valvular Heart Disease, PVD, Diastolic CHF, Cognitive changes, Hypothyroidism, recent admission 06/30/17-07/03/17 w/ NSTEMI , acute diastolic CHF exacerbation with notable history multivessel CAD not amenable to PCI w/ transfer to [facility] for consideration for CABG x 2 however declined per patient who now re-presents to the [facility] ED on 07/27/17 w/ progressively worsening dyspnea over the last several days, severely worse today with onset additionally epigastric pain with nausea. (1) Acute Hypoxic Respiratory Failure secondary to Acute Decompensated Diastolic CHF: CTPA obtained in the ED w/ notable congestion, BL effusions, no evidence dissection or aneurysm on CTA abdomen and chest. Patient administered IV lasix in the ED, will admit to PCU, maintain on cardiac telemetry, obtain cardiac enzyme series, obtain serial EKGs, continue IV lasix diuresis, monitor I /Os, maintain on intake restriction, continue medical therapy w/ asa, statin, BB , ACEI, aldosterone antagonists. Will obtain TSH and magnesium level. Most recent ECHO noted 2014 thus will repeat. Cardiology consulted, pending. PRN morphine to decrease afterload, continue oxygen supplementation, if necessary will position w/ upright position with legs off bed to decrease preload. (2) Recent NSTEMI w/ Epigastric Discomfort w/ Inferior EKG depressions (Prior Noted Admission also): Unclear specific etiology, recent admission w/ NSTEMI w/ CAD w/ transfer to [facility] for CABG x 2 which she then declined and notes still declines currently. Admission trop 0.69, last 1.11 prior to this, will as noted maintain on telemetry, cycle cardiac enzymes, obtain magnesium and supplement if needed, repeat EKG in AM. Will obtain lipase also given atypical presentation. Maintain on asa, plavix, statin, coreg, ARB, isosorbide. Will consult Cardiology as noted #1. (2) Diabetes mellitus type II: Hold oral home regimen, continue home insulin regimen, ADA diet, accu checks w/ ISS. (3) CAD: Multivessel disease as noted, not candidate for PCI thus prior admission with transition to [facility] for planned CABG however she declined. Will continue home regimen asa, plavix, statin, BB. (4) Hypertension: Continue home regimen including Coreg, losartan, IV Lasix as noted, isosorbide, PRN hydralazine. (5) Hyperlipidemia: Continue home statin regimen. AM FLP. (6) Hypothyroidism: Continue home synthroid regimen, TSH pending. (7) Obesity: Weight loss and lifestyle changes encouraged. (8) DVT prophylaxis: SCD, lovenox. (9) CODE status: Discussed CODE status at length including difference between FULL code, DNR-CCA and DNR-CC status. Following discussions about the differences in these status, requested continued FULL CODE despite lengthy discussions about recent refusal of CABG. Advanced Care Planning Face to Face Time: 25 minutes. Code Visit Inpatient E&M: 41975 Init Hosp L3 Procedures: 95893 Advncd Care Plan 30 Min
[2017-07-27 22:14] LABS: Reflex Lactate? Y
[2017-07-28] VITALS (12 sets, daily range): BP systolic 95–115; BP diastolic 44–69; PULSE 64–80; RESP 15–18; TEMP 36.1–36.9; O2SAT 95–100
[2017-07-28] MEDS: Furosemide 40 MG/4 ML Vial IV ×4 (00:29→21:17)
[2017-07-28] MEDS: Ranolazine 500 MG Tablet PO ×3 (00:29→21:17)
[2017-07-28] MEDS: Carvedilol 12.5 MG Tablet PO ×3 (00:29→21:17)
[2017-07-28] MEDS: Enoxaparin 40 MG/0.4 ML Syringe SC (00:29)
[2017-07-28] MEDS: Famotidine 20 MG Tablet PO ×3 (00:29→21:17)
[2017-07-28 00:46] LABS: Bedside Glucose 292 mg/dL (70-110)
[2017-07-28 00:57] LABS: Lactic Acid 1.8 mmol/L (0.4-2.0)
[2017-07-28 01:19] LABS: Lipase 106 U/L (73-393); Thyroid Stim Hormone (TSH) 0.06 uIU/mL (0.358-3.74)
[2017-07-28] MEDS: Enoxaparin 60 MG/0.6 ML Syringe 50 MG SC (01:45)
[2017-07-28 04:57] LABS: Absolute Lymphocyte Count 0.92 X10^3/ul (0.83-4.51); Absolute Neutrophil Count 3.3 X10^3/uL (2.0-7.7); Basophil# 0.02 X10^3/uL; Basophil% 0.4 % (0-1); Eosinophil# 0.03 X10^3/uL; Eosinophils% 0.6 % (0-5); Hematocrit 35.7 % (37-47); Hemoglobin 11.5 g/dl (12.0-15.0); Lymphocyte # 0.92 X10^3/ul (4.0); Lymphocyte % 19.4 % (19-41); Mean Corp Hgb Conc 32.2 g/gl (32-36); Mean Corpuscular Hgb 31.2 pg (27.0-32.0); Mean Corpuscular Volume 96.7 fL (81-99); Mean Platelet Vol. 9.9 fl (6.2-12.0); Monocyte# 0.44 X10^3/uL; Monocyte% 9.3 % (0-10); Neutrophil # 3.32 X10^3/uL (2.7-7.7); Neutrophil % 70.1 % (47-70); Platelet Count 100 K/mm3 (150-450); RBC Distribution Width CV 13.9 % (11.6-14.6); RBC Distribution Width SD 47.4 fl (35.1-43.9); Red Blood Count 3.69 M/mm3 (4.2-5.4); White Blood Count 4.7 K/mm3 (4.4-11.0)
[2017-07-28] MEDS: Levothyroxine 175 MCG Tablet PO (05:12)
[2017-07-28 05:15] LABS: POSITIVE COUNT NO; POSITIVE DIFFERENTIAL NO; POSITIVE MORPHOLOGY NO
--- NOTE | 2017-07-28 05:55 | ECHOD_ITS ---
Reason For Study: CHF Procedure This was a 2D Doppler, Color Flow transthoracic echocardiogram. Exam performed portable in patient room. Left Ventricle Normal LV size. Mild concentric left ventricular hypertrophy. The estimated ejection fraction is 25 %. Moderately severe segmental systolic dysfunction (see wall motion). [place] : Akinetic. Mid- anteroseptal : Akinetic. There is moderate to severe global hypokinesis of the left ventricle. Right Ventricle Normal RV size. Normal systolic function. Atria The left atrium is mildly enlarged. Normal right atrium. Mitral Valve There is mild mitral annular calcification. Mild-Moderate (1-2+) eccentric mitral valve insufficiency. Tricuspid Valve Normal tricuspid valve. Mild to moderate (1-2+) tricuspid valve insufficiency. Pulmonary artery systolic pressure is 50 mmHg. Moderate pulmonary hypertension. Aortic Valve Trisinus/trileaflet aortic valve. Mild focal aortic valve calcification. Mild aortic stenosis. Mean aortic valve gradient is 6 mmHg. Pulmonic Valve Normal pulmonic valve. Great Vessels Normal aortic root. The pulmonary artery is normal size. Normal inferior vena cava. Pericardium/Pleural No pericardial effusion. MMode/2D Measurements & Calculations LVIDd: 4.8 cm IVSd: 1.4 cm LVOT diam: 2.0 cm LVIDs: 3.0 cm LVPWd: 1.4 cm LVOT area: 3.2 cm2 RVDd: 3.6 cm FS: 37.4 % Ao root diam: 3.0 cm LAV(MOD-bp): 68.5 ml LVAd ap4: 40.7 cm2 LA dimension: 4.1 cm LAV(MOD-bp) Indexed: 34.2 ml/m2 EDV(MOD-sp4): 146.2 ml LAV(MOD-sp2): 64.0 ml EDV(sp4-el): 146.5 ml LAV(MOD-sp4): 65.8 ml LVAs ap4: 26.8 cm2 ESV(MOD-sp4): 76.0 ml ESV(sp4-el): 78.3 ml EF(MOD-sp4): 48.0 % EF(sp4-el): 46.6 % SV(MOD-sp4): 70.3 ml SV(sp4-el): 68.3 ml LA A4 area: 21.7 cm2 RA A4 area: 15.7 cm2 Time Measurements MV dec time: 0.22 sec Doppler Measurements & Calculations MV E max melo: 114.3 cm/sec Lat Peak E' Melo: 6.4 cm/sec Med Peak E' Melo: 5.9 cm/sec MV A max melo: 104.1 cm/sec E/E' lat: 17.9 E/E' med: 19.3 MV E/A: 1.1 MV V2 max: 126.2 cm/sec MV P1/2t max melo: 127.1 cm/sec Ao V2 max: 180.8 cm/sec MV max P.4 mmHg MV P1/2t: 86.1 msec Ao max P.1 mmHg MV V2 mean: 72.1 cm/sec MV dec slope: 432.5 cm/sec2 Ao V2 mean: 116.5 cm/sec MV mean P.4 mmHg MVA(P1/2t): 2.6 cm2 Ao mean P.1 mmHg MV V2 VTI: 34.6 cm Ao V2 VTI: 38.0 cm MVA(VTI): 2.0 cm2 CASH(I,D): 1.8 cm2 CASH(V,D): 1.7 cm2 LV V1 max: 95.2 cm/sec SV(LVOT): 68.4 ml PA V2 max: 109.8 cm/sec LV V1 max P.6 mmHg LV V1 mean P.9 mmHg LV V1 mean: 64.0 cm/sec LV V1 VTI: 21.6 cm TR max melo: 333.8 cm/sec TR max P.6 mmHg Interpretation Summary Normal LV size. Mild concentric left ventricular hypertrophy. The estimated ejection fraction is 25 %. Moderately severe segmental systolic dysfunction (see wall motion). Mild-Moderate (1-2+) eccentric mitral valve insufficiency. Moderate pulmonary hypertension. Compared to the previous ther has been a sigificant decline in EF Ordering Physician: Keara Rodas Referring Physician: Diana Cohen Performed By: Brodwolf, Louie, RCS
--- NOTE | 2017-07-28 05:55 | EKG12_ITS ---
Test Reason : AM EKG Blood Pressure : / mmHG Vent. Rate : 080 BPM Atrial Rate : 080 BPM P-R Int : 172 ms QRS Dur : 088 ms QT Int : 448 ms P-R-T Axes : 062 006 198 degrees QTc Int : 516 ms Normal sinus rhythm ST & T wave abnormality, consider inferior ischemia ST & T wave abnormality, consider anterolateral ischemia Prolonged QT Abnormal ECG Confirmed by SILVINA CHEW, NILSON ([id number]), assistant film editor THAD HOOKER ([id number]) on 08/02/2017 12:56:43 PM Referred By: MODE Confirmed By:NILSON COOL MD
[2017-07-28 07:12] LABS: Cholesterol 165 mg/dL (200); High Density Lipoprotein 72 mg/dL; Triglycerides 64 mg/dL; Very Low Density Lipoprotein 13 mg/dL (5-40)
[2017-07-28 08:01] LABS: Bedside Glucose 290 mg/dL (70-110)
[2017-07-28] MEDS: Isosorbide Mononitrate 30 MG Tablet PO (10:19)
[2017-07-28] MEDS: Aspirin 81 MG TAB.CHEW PO (10:19)
[2017-07-28] MEDS: Losartan Potassium 50 MG Tablet PO (10:19)
[2017-07-28] MEDS: Clopidogrel Bisulfate 75 MG Tablet PO (10:20)
[2017-07-28 10:41] LABS: Bedside Glucose 254 mg/dL (70-110)
--- NOTE | 2017-07-28 10:44 | CASEMGMT ---
Addendum entered by Lucero Lizama 07/28/17 13:47: Social Work Call from [place] with [facility] confirming that they can see the pt for PT/OT and to let them know when discharge. Green sheet placed on the chart to follow. Plan: Home with [facility]. JERRI Packer Original Note: Social Work Face to face with the pt to discuss discharge planning. Introduced self and role at [facility]. The pt reports to live alone and denies access issues. She has aids 2 hrs/day 5 days/week through [facility] via her waiver program. Discuss that PT/OT is recommending home health care PT/OT and pt is agreeable. Will setup services through [facility]. Alexis Hinojosa updated via voicemail of admission and anticipate discharge plan. Will place green sheet on chart to follow in case pt discharges over holiday weekend. No additional needs identified at this time. Plan: Home with resumption of services, and initiation of C PT/OT. JERRI Packer
--- NOTE | 2017-07-28 11:12 | CON.PCM_ITS ---
Reason for Consult Date of Consultation: 07/28/17 Reason for Consultation: Shortness of breath and abnormal troponin enzymes History of Present Illness: The patient is a 77 year old F with an extensive cardiac history who presented to the emergency room yesterday complaining of shortness of breath. She was noted to be in mild congestive heart failure she was given intravenous Lasix and also had a CT scan performed of her abdomen because it was not clear whether she had a pulmonary problem going on. You do remember that she does have a history of hypertension diabetes mellitus hyperlipidemia and severe coronary artery disease. She is status post previous angioplasty and rotablation of the left anterior descending artery in 2013. Presented in 2013 with chest discomfort and underwent a cardiac catheterization which demonstrated a widely patent stent in the left anterior descending artery and significant proximal circumflex artery disease. The right coronary artery had moderate diffuse disease and medical therapy was recommended. In February 2015 she presented again with chest discomfort and underwent a repeat cardiac catheterization demonstrated similar disease and medical therapy was recommended. In February 2017 she presented again with chest discomfort repeat cardiac catheterization demonstrated a similar patent and medical therapy was once again recommended. In April 2017 she went to [facility] where she underwent balloon angioplasty with an angioscope of the ostium of the circumflex artery with a 2.75 noncompliant balloon angioplasty there was minimal dissection but no impediment of flow and medical therapy was pursued. She more recently in June 2018 presented with chest discomfort she underwent a cardiac catheterization which demonstrated a right coronary artery which was large dominant with mild diffuse disease a left main coronary artery [ ]Mild calcification and a 40-50% stenosis. The left anterior descending artery had a previously placed stent which was patent the distal LAD was diffusely diseased up to 75% stenosis in the first diagonal branch had a proximal 75% stenosis. The ostial circumflex artery had an 85% stenosis. She was transferred to [facility] where she underwent repeat angioplasty to the circumflex artery distribution. There was a consideration as to whether she should have coronary artery bypass surgery but the patient apparently refused and she was not thought to be the greatest candidate because of poor distal targets. She has been apparently compliant with her medications. At this particular time she denies any chest pain. Her shortness of breath she says has improved. Past Medical History Allergies/Adverse Reactions: Allergies atorvastatin calcium [From Lipitor] Adverse Reaction (Verified 06/30/17 04:58) Unknown rosiglitazone maleate [From Avandia] Adverse Reaction (Verified 06/30/17 04:58) Other Home Medications: Ambulatory Orders Medication Instructions Recorded Aspirin [Aspirin, Baby] 81 mg PO DAILY@0800 06/30/17 Carvedilol [Coreg] 12.5 mg PO BID 06/30/17 Clopidogrel Bisulfate [Clopidogrel] 75 mg PO DAILY 06/30/17 Furosemide [Lasix] 40 mg PO DAILY 06/30/17 Insulin Glargine,Hum.rec.anlog 30 unit SQ DAILY 06/30/17 [Toujeo Solostar] Insulin Regular, Human [Humulin R] 0 unit TID 06/30/17 Isosorbide Mononitrate [Isosorbide 30 mg PO DAILY 06/30/17 Mononitrate ER] Levothyroxine [Synthroid] 175 mcg PO DAILY 06/30/17 Losartan Potassium [Cozaar] 50 mg PO DAILY 06/30/17 Nitroglycerin [Nitrostat] 0.4 mg SL PRN PRN 06/30/17 Potassium Chloride [K-Tab ER] 8 meq PO DAILY 06/30/17 Pravastatin [Pravachol] 80 mg PO DAILY 06/30/17 Ranolazine [Ranexa] 500 mg PO BID 06/30/17 TraMADol [Ultram] 50 mg PO BID PRN 07/02/17 Past Medical History (Chronic Problems): Chronic Problems Obesity (BMI 30.0-34.9) (Chronic) CAD (coronary artery disease) (Chronic) Diabetes mellitus, type II (Chronic) Hyperlipidemia (Chronic) Hypothyroidism (Chronic) Hypertension (Chronic) Cognitive changes (Chronic) Pancytopenia (Chronic) S/P PTCA (percutaneous transluminal coronary angioplasty) (Chronic) Mitral valve insufficiency (Chronic) Tricuspid valve insufficiency (Chronic) Intermittent claudication (Chronic) CHF (congestive heart failure) (Chronic) Venous insufficiency (Chronic) Surgical History: angioplasty, appendectomy, cholecystectomy, tonsillectomy, - - Spinal fusion Psychiatric History: No pertinent psych hx [employer] History: No pertinent [employer] history - *Family History Maternal History Items: No pertinent history Paternal History Items: No pertinent history Lives: Alone Smoking Status: Never smoker Tobacco Use: Non-smoker Alcohol: None Drugs: None Review of Systems - Review of Systems General: Denies: Fever, Night Sweats, Fatigue Cardiovascular: Reports: Shortness of Breath. Denies: Chest Discomfort, Orthopnea, PND, Peripheral Edema, Palpitations, Lightheadedness, Dizziness, Near Syncope, Syncope Respiratory: Denies: Cough, Sputum Production, Hemoptysis Gastrointestinal: Denies: Hematemesis, Hematochezia, Melena Genitourinary: Denies: Dysuria, Hematuria Skin: Denies: Rash Subjectve: Pleasant lady in no apparent distress Objective: Vital Signs Temp Pulse Resp BP Pulse Ox 98 F 70 17 113/52 L 98 07/28/17 10:23 07/28/17 10:23 07/28/17 10:23 07/28/17 10:23 07/28/17 10:23 Oxygen Flow Rate 3 Oxygen Delivery Method Nasal Cannula Weight: 196 lb 6.91 oz Body Mass Index (BMI) 30.7 Intake and Output for Last 24 Hours 07/26/17 07/27/17 07/28/17 23:59 23:59 23:59 Intake Total 240 / 240 Output Total 200 / 200 Balance 40 / 40 General: Awake, Alert, Oriented x 3 HEENT: PERRL, EOMI, Sclera Non Icteric Neck: Supple, Good ROM, No Lymph Node Enlargement Lungs: Clear to auscultation Cardiovascular: Regular Rhythm, Normal S1, Normal S2, No Murmurs, No Rubs, No Gallops Vascular: No Carotid Bruits, Normal Femoral Pulses, Normal Radial Pulses, Normal Dorsalis Pedal Pulse, Normal Posterior Tibial Pulses Abdomen: Bowel Sounds Present, Soft, Non Tender, No HSM, No Organomegaly Extremities: No Cyanosis, No Clubbing, No edema Neurological: No Focal Motor or Sensory Deficit 07/28/17 00:07: Magnesium 2.0, Troponin I 10.70 H* 07/28/17 00:07: Triglycerides 64, Cholesterol 165, LDL Cholesterol 80, VLDL Cholesterol 13, HDL Cholesterol 72 07/28/17 00:07: Lactic Acid 1.8 07/28/17 04:15: WBC 4.7, RBC 3.69 L, Hgb 11.5 L, Hct 35.7 L, MCV 96.7, MCH 31.2 , MCHC 32.2, RDW 13.9, RDW Differential 47.4 H, Plt Count 100 L, MPV 9.9, Immature Gran % (Auto) 0.200, Neut % (Auto) 70.1 H, Lymph % (Auto) 19.4, George % (Auto) 9.3, Eos % (Auto) 0.6, Baso % (Auto) 0.4, Absolute Neuts (auto) 3.3, Total Counted Not Reportable 07/28/17 04:15: Troponin I 19.60 H* 07/28/17 08:25: Troponin I 30.50 H* Rhythm: EKG: Normal sinus rhythm with noted inferior lateral leads II, III and aVF and V4 through V6. Assessment/Plan 1. Non-ST elevation myocardial infarction. She presents once again with a non-ST elevation myocardial infarction. Her coronary anatomy has been reviewed in detail. It does not appear that she is a good candidate for either bypass surgery or repeat angioplasty. She has not been a candidate for EECP therapy either. At this time the recommendation will be to maintain her on maximum medical therapy with aspirin Plavix losartan and isosorbide Coreg and Ranexa. The patient does well with the above regimen we may consider a repeat cardiac catheterization later on to see whether the circumflex artery distribution is open or closed. Depending on what it is a decision about the left anterior descending artery and distal left main will be undertaken. This may involve stenting to this area. 2. Hyperlipidemia We will continue with her high intensity statin on the current medical therapy. 3. Congestive heart failure She did present with congestive heart failure secondary to coronary artery disease unlikely coronary occlusion. My recommendation will be to continue her on Lasix for the next 24 hours and then switch her to oral Lasix. Thank you for allowing me to participate in the care of this rather complicated lady.
[2017-07-28] MEDS: oxyCODONE 5 MG Tablet PO ×2 (12:31→21:24)
[2017-07-28 12:36] LABS: Bedside Glucose 282 mg/dL (70-110)
[2017-07-28] MEDS: 0.9% NaCl Peripheral Flush Adult/Peds IV (14:39)
[2017-07-28] MEDS: Enoxaparin 100 MG/ML Syringe 90 MG SC (17:32)
[2017-07-28 17:51] LABS: Bedside Glucose 181 mg/dL (70-110)
[2017-07-28] MEDS: Pravastatin 80 MG Tablet PO (21:17)
--- NOTE | 2017-07-28 21:18 | PN_ITS ---
Subjective: Patient is a 77-year-old female with a past medical history of obesity, CAD, diabetes mellitus type 2, hyperlipidemia, hypothyroidism, hypertension, cognitive dysfunction, pancytopenia, history of PTCA, mitral regurgitation, tricuspid regurgitation, chronic diastolic congestive heart failure, schizophrenia and venous insufficiency who presented to the [facility] emergency department on 07/27 with complaints of increasing dyspnea and epigastric pain with nausea. Troponin in the emergency room was increased to 0.69. Lactic acid was 3.9. Heart rate was 125 and she was 95% saturated on a 6 L nasal cannula. EKG showed sinus tachycardia with inferior ST depression. CTA of the abdomen with moderate atherosclerotic disease of the abdominal aorta with mild narrowing of the takeoff of the SMA and bilateral renal arteries. CTA of the chest showed no evidence of PE. She was admitted to the hospital with a diagnosis of non-ST segment elevation. Dr. Floyd Foster was consulted to see the patient. Today her troponin is 30.5. - Physical Exam General: Alert, Oriented x3, - - States her shortness of breath is somewhat better today. He still appears mildly anxious. HEENT: Atraumatic, Normocephalic Oral: Moist Mucosa Neck: JVD, Bilateral Lungs: No wheeze, Diminished, Rales - Bilateral bases Cardiovascular: Regular Rhythm, Normal S1, Normal S2, No Gallop, Tachycardic Abdomen: Bowel Sounds Present, Soft, Non Tender, Non-Distended Extremities: Edema Vital Signs Temp Pulse Resp BP Pulse Ox 97 F L 67 16 107/44 L 100 07/28/17 20:21 07/28/17 20:21 07/28/17 20:21 07/28/17 20:21 07/28/17 20:27 Oxygen Flow Rate 2 Oxygen Delivery Method Nasal Cannula Weight: 196 lb 6.91 oz Body Mass Index (BMI) 30.7 Intake and Output for Last 24 Hours 07/26/17 07/27/17 07/28/17 23:59 23:59 23:59 Intake Total 1200 / 1200 Output Total 450 / 450 Balance 750 / 750 Laboratory Tests Past 24 Hrs 07/28/17 07/28/17 07/28/17 00:07 00:07 00:07 WBC RBC Hgb Hct MCV MCH MCHC RDW RDW Differential Plt Count MPV Immature Gran % (Auto) Neut % (Auto) Lymph % (Auto) [place] % (Auto) Eos % (Auto) Baso % (Auto) Absolute Neuts (auto) Absolute Lymphs (auto) Total Counted Lactic Acid 1.8 Magnesium 2.0 Troponin I 10.70 H* Triglycerides 64 Cholesterol 165 LDL Cholesterol 80 VLDL Cholesterol 13 HDL Cholesterol 72 Lipase 106 TSH 0.06 L 07/28/17 07/28/17 07/28/17 04:15 04:15 08:25 WBC 4.7 RBC 3.69 L Hgb 11.5 L Hct 35.7 L MCV 96.7 MCH 31.2 MCHC 32.2 RDW 13.9 RDW Differential 47.4 H Plt Count 100 L MPV 9.9 Immature Gran % (Auto) 0.200 Neut % (Auto) 70.1 H Lymph % (Auto) 19.4 [place] % (Auto) 9.3 Eos % (Auto) 0.6 Baso % (Auto) 0.4 Absolute Neuts (auto) 3.3 Absolute Lymphs (auto) 0.92 Total Counted Not Reportable Lactic Acid Magnesium Troponin I 19.60 H* 30.50 H* Triglycerides Cholesterol LDL Cholesterol VLDL Cholesterol HDL Cholesterol Lipase TSH POC Glucose 07/28/17 07/28/17 07/28/17 17:24 12:24 10:16 POC Glucose 181 H 282 H 254 H 07/28/17 07/28/17 06:49 00:36 POC Glucose 290 H 292 H Assessment/Plan Impressions 1. NSTEMI with troponin of 30.5 today. 2. Acute congestive heart failure 3. Acute hypoxic respiratory failure 4. Coronary artery disease 5. Diabetes mellitus type 2 8. Hypertension 7. Hyperlipidemia 8. Hypothyroidism 9. Schizophrenia Discussed with Dr. Foster. 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 Patient tells me she does not want a CABG. She will be maintained on maximal medical therapy with aspirin, Plavix, losartan , Imdur, Coreg and Ranexa. Possible cardiac catheterization on Sunday. Continue Lasix IV Code Visit Inpatient E&M: 41368 Subs Hosp L3
[2017-07-28 21:41] LABS: Bedside Glucose 140 mg/dL (70-110)
[2017-07-29] VITALS (11 sets, daily range): BP systolic 94–135; BP diastolic 44–56; PULSE 59–72; RESP 15–18; TEMP 36.6–37; O2SAT 96–99
[2017-07-29] MEDS: Levothyroxine 175 MCG Tablet PO (07:45)
[2017-07-29] MEDS: Furosemide 40 MG/4 ML Vial IV ×3 (07:45→21:32)
[2017-07-29 09:18] LABS: Bedside Glucose 70 mg/dL (70-110)
--- NOTE | 2017-07-29 09:39 | PCM.PN.CARD ---
Subjectve: Doing better this am . sitting in chair Objective: Vital Signs Temp Pulse Resp BP Pulse Ox 98.2 F 62 16 94/48 L 98 07/29/17 02:20 07/29/17 03:23 07/29/17 02:20 07/29/17 02:20 07/29/17 06:40 Oxygen Flow Rate 2 Oxygen Delivery Method Nasal Cannula Weight: 196 lb 6.91 oz Body Mass Index (BMI) 30.7 Intake and Output for Last 24 Hours 07/27/17 07/28/17 07/29/17 23:59 23:59 23:59 Intake Total 1440 / 1440 Output Total 700 / 700 Balance 740 / 740 General: Awake, Alert, Oriented x 3 HEENT: PERRL, EOMI, Sclera Non Icteric Neck: Supple, Good ROM, No Lymph Node Enlargement Lungs: Diminished [place]ilo Bases Cardiovascular: Regular Rhythm, Normal S1, Normal S2, No Murmurs, No Rubs, No Gallops Vascular: No Carotid Bruits, Normal Femoral Pulses, Normal Radial Pulses, Normal Dorsalis Pedal Pulse, Normal Posterior Tibial Pulses Abdomen: Bowel Sounds Present, Soft, Non Tender, No HSM, No Organomegaly Extremities: No Cyanosis, No Clubbing, Bilateral Edema +1 Neurological: No Focal Motor or Sensory Deficit Rhythm:NSR EKG: ECHO: EF 25% global Assessment/Plan 1. Non-ST elevation myocardial infarction. She presents once again with a non-ST elevation myocardial infarction. Her coronary anatomy has been reviewed in detail. It does not appear that she is a good candidate for either bypass surgery or repeat angioplasty. She has not been a candidate for EECP therapy either. At this time the recommendation will be to maintain her on maximum medical therapy with aspirin Plavix losartan and isosorbide Coreg and Ranexa. The patient does well with the above regimen we may consider a repeat cardiac catheterization later on to see whether the circumflex artery distribution is open or closed. This will be undertaken prior to discharge. Depending on what it is a decision about the left anterior descending artery and distal left main will be undertaken. This may involve stenting to this area. 2. Hyperlipidemia We will continue with her high intensity statin on the current medical therapy. 3. Congestive heart failure She did present with congestive heart failure secondary to coronary artery disease with likely coronary occlusion. My recommendation will be to continue her on Lasix for the next 24 hours and then switch her to oral Lasix. Thank you for allowing me to participate in the care of this rather complicated lady.
[2017-07-29] MEDS: Carvedilol 12.5 MG Tablet PO ×2 (09:46→21:32)
[2017-07-29] MEDS: Clopidogrel Bisulfate 75 MG Tablet PO (09:46)
[2017-07-29] MEDS: Aspirin 81 MG TAB.CHEW PO (09:47)
[2017-07-29] MEDS: Ranolazine 500 MG Tablet PO ×2 (09:47→21:33)
[2017-07-29] MEDS: Isosorbide Mononitrate 30 MG Tablet PO (09:48)
[2017-07-29] MEDS: Famotidine 20 MG Tablet PO ×2 (09:48→21:33)
[2017-07-29 11:15] LABS: Absolute Lymphocyte Count 1.53 X10^3/ul (0.83-4.51); Absolute Neutrophil Count 1.3 X10^3/uL (2.0-7.7); Basophil# 0.01 X10^3/uL; Basophil% 0.3 % (0-1); Eosinophil# 0.11 X10^3/uL; Eosinophils% 3.4 % (0-5); Hematocrit 30.2 % (37-47); Hemoglobin 9.5 g/dl (12.0-15.0); Lymphocyte # 1.53 X10^3/ul (4.0); Lymphocyte % 46.8 % (19-41); Mean Corp Hgb Conc 31.5 g/gl (32-36); Mean Corpuscular Hgb 30.4 pg (27.0-32.0); Mean Corpuscular Volume 96.8 fL (81-99); Mean Platelet Vol. 10.4 fl (6.2-12.0); Monocyte# 0.28 X10^3/uL; Monocyte% 8.6 % (0-10); Neutrophil # 1.34 X10^3/uL (2.7-7.7); Neutrophil % 40.9 % (47-70); Platelet Count 90 K/mm3 (150-450); RBC Distribution Width CV 14.1 % (11.6-14.6); RBC Distribution Width SD 49.6 fl (35.1-43.9); Red Blood Count 3.12 M/mm3 (4.2-5.4); White Blood Count 3.3 K/mm3 (4.4-11.0)
[2017-07-29 11:18] LABS: POSITIVE COUNT NO; POSITIVE DIFFERENTIAL NO; POSITIVE MORPHOLOGY NO
[2017-07-29] MEDS: Enoxaparin 100 MG/ML Syringe 90 MG SC ×2 (11:55→18:07)
[2017-07-29 11:56] LABS: Bedside Glucose 184 mg/dL (70-110)
[2017-07-29] MEDS: 0.9% NaCl Peripheral Flush Adult/Peds IV (15:55)
[2017-07-29] MEDS: Losartan Potassium 50 MG Tablet PO (15:56)
[2017-07-29 16:16] LABS: Bedside Glucose 187 mg/dL (70-110)
[2017-07-29] MEDS: Pravastatin 80 MG Tablet PO (21:33)
[2017-07-29 22:52] LABS: Bedside Glucose 153 mg/dL (70-110)
[2017-07-29] MEDS: oxyCODONE 5 MG Tablet PO (23:16)
[2017-07-30] VITALS (11 sets, daily range): BP systolic 105–136; BP diastolic 46–58; PULSE 56–68; RESP 16; TEMP 36.2–36.8; O2SAT 93–98
[2017-07-30] MEDS: Levothyroxine 175 MCG Tablet PO (05:11)
[2017-07-30] MEDS: Furosemide 40 MG/4 ML Vial IV (05:11)
[2017-07-30] MEDS: Enoxaparin 100 MG/ML Syringe 90 MG SC ×2 (05:11→16:56)
[2017-07-30 06:39] LABS: Absolute Lymphocyte Count 1.18 X10^3/ul (0.83-4.51); Absolute Neutrophil Count 1.4 X10^3/uL (2.0-7.7); Basophil# 0.01 X10^3/uL; Basophil% 0.3 % (0-1); Eosinophil# 0.13 X10^3/uL; Eosinophils% 4.3 % (0-5); Hematocrit 33.5 % (37-47); Hemoglobin 10.9 g/dl (12.0-15.0); Lymphocyte # 1.18 X10^3/ul (4.0); Lymphocyte % 39.2 % (19-41); Mean Corp Hgb Conc 32.5 g/gl (32-36); Mean Corpuscular Hgb 31.4 pg (27.0-32.0); Mean Corpuscular Volume 96.5 fL (81-99); Mean Platelet Vol. 10.3 fl (6.2-12.0); Monocyte# 0.25 X10^3/uL; Monocyte% 8.3 % (0-10); Neutrophil # 1.44 X10^3/uL (2.7-7.7); Neutrophil % 47.9 % (47-70); Platelet Count 105 K/mm3 (150-450); RBC Distribution Width CV 13.3 % (11.6-14.6); RBC Distribution Width SD 44.1 fl (35.1-43.9); Red Blood Count 3.47 M/mm3 (4.2-5.4)
[2017-07-30 06:40] LABS: POSITIVE COUNT NO; POSITIVE DIFFERENTIAL NO; POSITIVE MORPHOLOGY NO
[2017-07-30 06:56] LABS: Bedside Glucose 83 mg/dL (70-110)
[2017-07-30] MEDS: Carvedilol 12.5 MG Tablet PO ×2 (09:19→21:41)
[2017-07-30] MEDS: Isosorbide Mononitrate 30 MG Tablet PO (09:19)
[2017-07-30] MEDS: Losartan Potassium 50 MG Tablet PO (09:19)
[2017-07-30] MEDS: Famotidine 20 MG Tablet PO ×2 (09:19→21:44)
[2017-07-30] MEDS: Aspirin 81 MG TAB.CHEW PO (09:19)
[2017-07-30] MEDS: Clopidogrel Bisulfate 75 MG Tablet PO (09:20)
[2017-07-30] MEDS: Ranolazine 500 MG Tablet PO ×2 (09:20→21:41)
--- NOTE | 2017-07-30 09:52 | PCM.PN.CARD ---
Subjectve: The patient was seen and evaluated and appears to be doing quite well. Objective: Vital Signs Temp Pulse Resp BP Pulse Ox 97.7 F L 59 L 16 105/46 L 97 07/30/17 09:11 07/30/17 09:11 07/30/17 09:11 07/30/17 09:11 07/30/17 09:11 Oxygen Flow Rate 2 Oxygen Delivery Method Room Air Weight: 191 lb 2.252 oz Body Mass Index (BMI) 30.7 Intake and Output for Last 24 Hours 07/28/17 07/29/17 07/30/17 23:59 23:59 23:59 Intake Total 1440 / 1440 910 / 910 660 / 660 Output Total 700 / 700 500 / 500 600 / 600 Balance 740 / 740 410 / 410 60 / 60 General: Awake, Alert, Oriented x 3 HEENT: PERRL, EOMI, Sclera Non Icteric Neck: Supple, Good ROM, No Lymph Node Enlargement Lungs: Clear to auscultation Cardiovascular: Regular Rhythm, Normal S1, Normal S2, No Murmurs, No Rubs, No Gallops Vascular: No Carotid Bruits, Normal Femoral Pulses, Normal Radial Pulses, Normal Dorsalis Pedal Pulse, Normal Posterior Tibial Pulses Abdomen: Bowel Sounds Present, Soft, Non Tender, No HSM, No Organomegaly Extremities: No Cyanosis, No Clubbing, No edema Neurological: No Focal Motor or Sensory Deficit 07/29/17 04:55: WBC 3.3 L, RBC 3.12 L, Hgb 9.5 L, Hct 30.2 L, MCV 96.8, MCH 30.4, MCHC 31.5 L, RDW 14.1, RDW Differential 49.6 H, Plt Count 90 L, MPV 10.4, Immature Gran % (Auto) 0.000, Neut % (Auto) 40.9 L, Lymph % (Auto) 46.8 H, [place] % (Auto) 8.6, Eos % (Auto) 3.4, Baso % (Auto) 0.3, Absolute Neuts (auto) 1.3 L, Total Counted Not Reportable 07/30/17 06:10: WBC 3.0 L, RBC 3.47 L, Hgb 10.9 L, Hct 33.5 L, MCV 96.5, MCH 31.4, MCHC 32.5, RDW 13.3, RDW Differential 44.1 H, Plt Count 105 L, MPV 10.3, Immature Gran % (Auto) 0.000, Neut % (Auto) 47.9, Lymph % (Auto) 39.2, [place] % (Auto) 8.3, Eos % (Auto) 4.3, Baso % (Auto) 0.3, Absolute Neuts (auto) 1.4 L, Total Counted Not Reportable Assessment/Plan 1. Non-ST elevation myocardial infarction. She presents once again with a non-ST elevation myocardial infarction. Her coronary anatomy has been reviewed in detail. It does not appear that she is a good candidate for either bypass surgery or repeat angioplasty. She has not been a candidate for EECP therapy either. At this time the recommendation will be to maintain her on maximum medical therapy with aspirin Plavix losartan and isosorbide Coreg and Ranexa. Due to the significant decline in her left ventricular ejection fraction it may be prudent to perform a cardiac catheterization at this time to figure out her coronary anatomy. Discussion will then be undertaken as to the best modality of revascularization or whether to continue on medical therapy only. I have discussed the above with her and she understands and agrees to proceed and the above will be performed tomorrow morning in the a.m. 2. Hyperlipidemia We will continue with her high intensity statin on the current medical therapy. 3. Congestive heart failure She did present with congestive heart failure secondary to coronary artery disease with likely coronary occlusion. We will switch to oral Lasix. Thank you for allowing me to participate in the care of this rather complicated lady.
[2017-07-30 10:49] LABS: Anion Gap 7 (5-15); BUN 16 mg/dL (7-18); BUN/Creat Ratio 20.9 RATIO (10-20); Calcium,Total 9.1 mg/dL (8.5-10.1); Chloride 100 mmol/L (98-107); Creatinine, Serum 0.77 mg/dL (0.55-1.02); EST Glomerular Filtration Rate 77 mL/min (>60); Est Glom Filt Rate - Afr Amer 94 mL/min (>60); Estimated Creatinine Clearance 45.09 ml/min; Glucose 176 mg/dL (70-110); Sodium Level 139 mmol/L (136-145)
--- NOTE | 2017-07-30 10:59 | PCM.PN.BLA ---
Progress Note late entry for 07/29/17 All events of the past 24 hours were reviewed. Urine output on 07/28 was 700 cc total. Intake was 1440. She is afebrile and vital signs are stable. She is 98% saturated on a 2 L nasal cannula. She tells me that her breathing is improving. She also has last lower extremity edema per her account. LDL was 80 and the HDL is 72. TSH is low at 0.06 T3 and T4 in June 2017 were within normal limits. Echocardiogram done on 07/28 showed mild concentric left ventricular hypertrophy with an ejection fraction of 25% which is significantly decreased over the preceding echocardiogram. There are moderately severe segmental wall motion abnormalities. She is awake, alert and oriented ?3 today. She is hearing voices but they are not telling her bad things to do. She tells me they are unhappy with her. Lungs-diminished in the bases with very minimal fine crackles Heart-regular rate and rhythm, no gallop, no rub Abdomen-soft, nontender, nondistended, no guarding with palpation, normal bowel sounds +1 bilateral peripheral edema, no cyanosis, no clubbing Skin is warm and dry Impressions 1. 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 Acute congestive heart failure 3. Acute hypoxic respiratory failure 4. Coronary artery disease 5. Diabetes mellitus type 2 8. Hypertension 7. Hyperlipidemia 8. Hypothyroidism 9. Schizophrenia discussed with Dr. Foster....plan on cardiac cath 07/31 Continue IV Lasix today Recheck lab in the a.m. Code Visit Inpatient E&M: 51260 Subs Hosp L2
--- NOTE | 2017-07-30 11:01 | PCM.PN.BLA ---
Progress Note No CP today. States breathing has improved since admission She is sitting in a chair and appears to be in no distress She is pleasant and oriented X 3 She is afebrile and vital signs are stable. Pulse ox is 97% on room air. Lab today shows normal electrolytes and the BUN is 16 with a creatinine of 0.77. CBC shows a low white blood cell count at 2.2 and hemoglobin stable at 10.2 with platelets of 94,000 Fluid balance is +2049 since admission despite intravenous Lasix. She was converted to oral Lasix by Dr. Foster today. Alert, oriented ?3, appears to be in no acute distress. She is not tachypneic and has no conversational dyspnea. Lungs very minimal crackles in the bases....much improved Heart-regular rate and rhythm, no gallop, no rub, no murmur, normal S1, normal S2 Abdomen-soft, nontender, nondistended, bowel sounds present improved LE edema Skin is warm and dry Nonfocal neurologic exam Impressions 1. NSTEMI with troponin of 30.5 and new ischemic cardiomyopathy with a 25% ejection fraction and segmental wall motion abnormalities 2. Acute systolic congestive heart failure 3. Acute hypoxic respiratory failure 4. Coronary artery disease 5. Diabetes mellitus type 2 8. Hypertension 7. Hyperlipidemia 8. Hypothyroidism 9. Schizophrenia Cath in the AM NPO after MN Pt does not want a CABG but, she is on maximal medical therapy She wants to be a full code. Code Visit Inpatient E&M: 59549 Subs Hosp L2
[2017-07-30 11:26] LABS: Bedside Glucose 176 mg/dL (70-110)
[2017-07-30] MEDS: Furosemide 40 MG Tablet PO ×2 (13:17→16:57)
[2017-07-30 17:06] LABS: Bedside Glucose 223 mg/dL (70-110)
[2017-07-30] MEDS: Pravastatin 80 MG Tablet PO (21:42)
[2017-07-30 22:36] LABS: Bedside Glucose 244 mg/dL (70-110)
[2017-07-31] VITALS (14 sets, daily range): BP systolic 105–129; BP diastolic 42–60; PULSE 56–71; RESP 16–18; TEMP 36.4–36.6; O2SAT 94–98
[2017-07-31] MEDS: oxyCODONE 5 MG Tablet PO (02:59)
[2017-07-31] MEDS: 0.9% Normal Saline 1,000 ML 15 ML IV (04:58)
--- NOTE | 2017-07-31 05:55 | EKG12_ITS ---
Test Reason : AM EKG Blood Pressure : / mmHG Vent. Rate : 060 BPM Atrial Rate : 060 BPM P-R Int : 160 ms QRS Dur : 086 ms QT Int : 508 ms P-R-T Axes : 043 -10 240 degrees QTc Int : 508 ms Normal sinus rhythm ST & T wave abnormality, consider inferior ischemia ST & T wave abnormality, consider anterolateral ischemia Confirmed by SILVINA CHEW, NILSON ([id number]), editor greeting card THAD HOOKER ([id number]) on 08/02/2017 12:51:35 PM Referred By: YANN Confirmed By:NILSON COOL MD
[2017-07-31 05:58] LABS: International Normalized Ratio 1.1; Prothrombin Time (Protime)PT. 13.8 SECONDS (11.7-14.9)
[2017-07-31 05:59] LABS: Partial Thromboplast Time 37.7 Seconds (24.1-36.2)
[2017-07-31] MEDS: Clopidogrel Bisulfate 75 MG Tablet PO (06:35)
[2017-07-31] MEDS: Isosorbide Mononitrate 30 MG Tablet PO (06:35)
[2017-07-31] MEDS: Levothyroxine 175 MCG Tablet PO (06:35)
[2017-07-31] MEDS: Aspirin 81 MG TAB.CHEW PO (06:35)
[2017-07-31] MEDS: Losartan Potassium 50 MG Tablet PO (06:35)
[2017-07-31] MEDS: Carvedilol 12.5 MG Tablet PO (06:35)
[2017-07-31 06:37] LABS: Absolute Lymphocyte Count 0.89 X10^3/ul (0.83-4.51); Absolute Neutrophil Count 0.9 X10^3/uL (2.0-7.7); Basophil# 0.01 X10^3/uL; Basophil% 0.5 % (0-1); Eosinophil# 0.09 X10^3/uL; Eosinophils% 4.1 % (0-5); Hematocrit 31.5 % (37-47); Hemoglobin 10.2 g/dl (12.0-15.0); Lymphocyte # 0.89 X10^3/ul (4.0); Lymphocyte % 40.5 % (19-41); Mean Corp Hgb Conc 32.4 g/gl (32-36); Mean Corpuscular Hgb 31.2 pg (27.0-32.0); Mean Corpuscular Volume 96.3 fL (81-99); Mean Platelet Vol. 10.9 fl (6.2-12.0); Monocyte# 0.27 X10^3/uL; Monocyte% 12.3 % (0-10); Neutrophil # 0.94 X10^3/uL (2.7-7.7); Neutrophil % 42.6 % (47-70); Platelet Count 94 K/mm3 (150-450); RBC Distribution Width CV 13.2 % (11.6-14.6); RBC Distribution Width SD 44.4 fl (35.1-43.9); Red Blood Count 3.27 M/mm3 (4.2-5.4); White Blood Count 2.2 K/mm3 (4.4-11.0)
[2017-07-31 06:39] LABS: Differential Indicated SCAN CRITERIA MET; POSITIVE COUNT NO; POSITIVE DIFFERENTIAL YES; POSITIVE MORPHOLOGY NO
[2017-07-31 07:06] LABS: Bedside Glucose 173 mg/dL (70-110)
[2017-07-31 07:28] LABS: Anion Gap 7 (5-15); BUN 17 mg/dL (7-18); BUN/Creat Ratio 25.4 RATIO (10-20); Chloride 99 mmol/L (98-107); Creatinine, Serum 0.67 mg/dL (0.55-1.02); EST Glomerular Filtration Rate 91 mL/min (>60); Est Glom Filt Rate - Afr Amer 110 mL/min (>60); Estimated Creatinine Clearance 45.09 ml/min; Glucose 191 mg/dL (70-110); Potassium 3.8 mmol/L (3.5-5.1); Sodium Level 138 mmol/L (136-145)
--- NOTE | 2017-07-31 08:55 | CASEMGMT ---
According to [facility] website, the following are in-network tertiary facilities: [facility], [place], [facility], [facility], [facility], [facility], [facility], and . Rolando TREVINO CM
--- NOTE | 2017-07-31 09:40 | PCM.PN.CARD ---
Subjectve: Seen and evaluated and underwent cardiac catheterization today Objective: Vital Signs Temp Pulse Resp BP Pulse Ox 98 F 67 16 120/53 L 95 07/31/17 06:31 07/31/17 06:55 07/31/17 06:31 07/31/17 06:31 07/31/17 07:51 Oxygen Flow Rate 2 Oxygen Delivery Method Room Air Weight: 190 lb 0.615 oz Body Mass Index (BMI) 30.7 Intake and Output for Last 24 Hours 07/29/17 07/30/17 07/31/17 23:59 23:59 23:59 Intake Total 910 / 910 1500 / 1500 Output Total 500 / 500 600 / 600 Balance 410 / 410 900 / 900 General: Awake, Alert, Oriented x 3 HEENT: PERRL, EOMI, Sclera Non Icteric Neck: Supple, Good ROM, No Lymph Node Enlargement Lungs: Clear to auscultation Cardiovascular: Regular Rhythm, Normal S1, Normal S2, No Murmurs, No Rubs, No Gallops Vascular: No Carotid Bruits, Normal Femoral Pulses, Normal Radial Pulses, Normal Dorsalis Pedal Pulse, Normal Posterior Tibial Pulses Abdomen: Bowel Sounds Present, Soft, Non Tender, No HSM, No Organomegaly Extremities: No Cyanosis, No Clubbing, No edema Neurological: No Focal Motor or Sensory Deficit 07/30/17 10:13: Sodium 139, Potassium 4.0, Chloride 100, Carbon Dioxide 32.0, Anion Gap 7, BUN 16, Creatinine 0.77, Est GFR (MDRD) Af Amer 94, Est GFR (MDRD) Non-Af 77, BUN/Creatinine Ratio 20.9 H, Glucose 176 H, Calcium 9.1 07/31/17 05:05: WBC 2.2 L, RBC 3.27 L, Hgb 10.2 L, Hct 31.5 L, MCV 96.3, MCH 31.2, MCHC 32.4, RDW 13.2, RDW Differential 44.4 H, Plt Count 94 L, MPV 10.9, Immature Gran % (Auto) 0.000, Neut % (Auto) 42.6 L, Lymph % (Auto) 40.5, [place] % (Auto) 12.3 H, Eos % (Auto) 4.1, Baso % (Auto) 0.5, Absolute Neuts (auto) 0.9 L, Total Counted Not Reportable 07/31/17 05:05: PT 13.8, INR 1.1, APTT 37.7 H 07/31/17 05:05: Sodium 138, Potassium 3.8, Chloride 99, Carbon Dioxide 32.0, Anion Gap 7, BUN 17, Creatinine 0.67, Est GFR (MDRD) Af Amer 110, Est GFR (MDRD) Non-Af 91, BUN/Creatinine Ratio 25.4 H, Glucose 191 H, Calcium 9.0 Rhythm: EKG: ECHO: Stress Test: Cardiac Cath: PCI: CT Surgery: Holter monitor: EPS: PPM: CXR: Chest CT Scan: Assessment/Plan 1. Non-ST elevation myocardial infarction. She presents once again with a non-ST elevation myocardial infarction. Cardiac catheterization today demonstrated the following: Main coronary artery with mild disease Left anterior descending artery with severe mid segments to distal segment disease. Disease also involving diagonal vessel 1 and 2. Left circumflex artery with ostial 40% stenosis. This vessel was recently stented. Moderate disease in the rest of the circumflex artery. Dominant right coronary artery with mild diffuse disease. Left ventricular ejection fraction reduction with anterior hypokinesis estimated ejection fraction of 40%. The Above is suggestive of a takotsubo like patent. This time I do not think that any intervention would need to be undertaken. Patient can be discharged later today on the current medications. 2. Hyperlipidemia We will continue with her high intensity statin on the current medical therapy. 3. Congestive heart failure She did present with congestive heart failure secondary to coronary artery disease with likely coronary occlusion. We will continue oral Lasix Thank you for allowing me to participate in the care of this rather complicated lady. Patient is stable for discharge later today.
--- NOTE | 2017-07-31 09:52 | CL.D_ITS ---
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 The above appeared to be moderate at this time and appear to be improved from her previo us study of 07/03/2017 RECOMMENDATIONS Medical therapy ASA Indefinitely Risk factor modification Plavix for at least 12 months DESCRIPTION OF PROCEDURE The patient arrived to the procedure lab. The risks and benefits of the procedure as well as a full d escription of our services here and current unavailability of surgical backup were fully explained to the patient and/or their significant other prior to the catheterization. The Timeout was completed, verifying the correct patient and procedure. The patient's procedural site was prepped and draped in the usual fashion. Local anesthetic was given subcutaneously to right radial region with Lidocaine 2% . Using a modified Seldinger technique, arterial access was obtained via the right radial artery, a 6 Fr sheath was inserted. Left Coronary Artery selective angiography was performed in multiple views u sing a 5 Fr. 4.0 Rhodes catheter. Left Ventriculography was performed in CEE projection using a 5 Fr. Pigtail catheter. LV to AO pullback pressures were then recorded.The arterial sheath was pulled and a TR Band was applied for hemostasis w/ 15ml air CORONARY ANGIOGRAPHY DOMINANCE: Right Dominant LEFT HEART ASSESSMENT Left Ventricular Ejection Fraction: by LV Gram 40 % Anterior Hypokinesis - Moderate Depressed Left Ventricular systolic function LEFT MAIN: Mild calcification, Mild luminal irregularities less than 30% LEFT ANTERIOR DECENDING ARTERY: MID LAD: Instent restenosis 10 %, Previously placed stent is patent DISTAL LAD: Diffusely diseased up to 75 % DIAGONAL 1: Ostial - 60 % Stenosis CIRCUMFLEX ARTERY: OSTIAL CIRC: 40 % Stenosis, Previously placed stent is patent MID CIRC: Mild luminal irregularities less than 30% RIGHT CORONARY ARTERY: Mild luminal irregularities less than 30% MID RCA: Mild luminal irregularities less than 30% DISTAL RCA: Previously placed stent is patent RT PLV: Previously placed stent is patent COMPLICATIONS No Complications PROCEDURE MEDICATIONS Fentanyl 50 mcg IV Versed 1 mg IV Oxygen: 2 L/min via nasal cannula Heparin diluted in 23cc Heparinized saline. Patient given 10cc IA of this solution. 07/31/2017 09:18 :42 Verapamil 2.5mg, Ntg 100mcgs, 2000 units of Heparin diluted in 23cc Heparinized saline. Patient give n 10cc IA of this solution. 07/31/2017 09:18:42 SUMMARY OF HEMODYNAMIC DATA Time AIR REST ECG 08:44:48 AO 108/40 (66) SA 09:22:04 LV 129/5, 19 09:29:33 LV 134/12, 22 09:29:52 LV 131/8, 21 09:31:35 LVp 132/6, 21 09:31:39 AOp 132/45 (79) 09:31:44 Signed By Floyd Foster MD On 07/31/2017 09:50:27 Floyd Foster MD
[2017-07-31] MEDS: Famotidine 20 MG Tablet PO (10:32)
[2017-07-31] MEDS: Furosemide 40 MG Tablet PO (10:32)
[2017-07-31] MEDS: Ranolazine 500 MG Tablet PO (10:32)
[2017-07-31] MEDS: 0.9% Normal Saline 1,000 ML 60 ML IV (10:33)
[2017-07-31 12:01] LABS: Bedside Glucose 204 mg/dL (70-110)
--- NOTE | 2017-07-31 12:36 | DCINST_ITS ---
You will use the following diet at home:: Calorie/Carbohydrate Controlled ( specify 1200, 1400, etc) Discharge Activity: Return to Normal Activity Allergies/Adverse Reactions: Allergies atorvastatin calcium [From Lipitor] Adverse Reaction (Verified 06/30/17 04:58) Unknown rosiglitazone maleate [From Avandia] Adverse Reaction (Verified 06/30/17 04:58) Other Medications to take at Discharge Aspirin [Aspirin, Baby] 81 mg PO DAILY@0800 06/30/17 Carvedilol [Coreg] 12.5 mg PO BID 06/30/17 Clopidogrel Bisulfate [Clopidogrel] 75 mg PO DAILY 06/30/17 Furosemide [Lasix] 40 mg PO DAILY 06/30/17 Insulin Glargine,Hum.rec.anlog [Toujeo Solostar] 30 unit SQ DAILY 06/30/17 Insulin Regular, Human [Humulin R] 0 unit TID 06/30/17 Isosorbide Mononitrate [Isosorbide Mononitrate ER] 30 mg PO DAILY 06/30/17 Levothyroxine [Synthroid] 175 mcg PO DAILY 06/30/17 Losartan Potassium [Cozaar] 50 mg PO DAILY 06/30/17 Nitroglycerin [Nitrostat] 0.4 mg SL PRN PRN 06/30/17 Potassium Chloride [K-Tab ER] 8 meq PO DAILY 06/30/17 Pravastatin [Pravachol] 80 mg PO DAILY 06/30/17 Ranolazine [Ranexa] 500 mg PO BID 06/30/17 TraMADol [Ultram] 50 mg PO BID PRN 07/02/17 Docusate Sodium [Colace] 200 mg PO BID PRN PRN capsule 07/31/17 Furosemide [Lasix] 40 mg PO DAILY 3 Days #30 tablet 07/31/17 The following prescriptions were given: Furosemide [Lasix] 40 mg PO DAILY 3 Days #30 tablet Primary Care Physician: Diana Cohen MD [Primary Care Provider] - Within 2 Weeks Proposed Discharge Date: 07/31/17
--- NOTE | 2017-07-31 12:36 | PCM.DC.SUM ---
Discharge Date and Diagnosis Date of Admission: 07/27/17 Date of Discharge: 07/31/17 - Secondary Discharge Diagnosis Chronic Problems Obesity (BMI 30.0-34.9) (Chronic) CAD (coronary artery disease) (Chronic) Diabetes mellitus, type II (Chronic) Hyperlipidemia (Chronic) Hypothyroidism (Chronic) Hypertension (Chronic) Cognitive changes (Chronic) Pancytopenia (Chronic) S/P PTCA (percutaneous transluminal coronary angioplasty) (Chronic) Mitral valve insufficiency (Chronic) Tricuspid valve insufficiency (Chronic) Intermittent claudication (Chronic) CHF (congestive heart failure) (Chronic) Venous insufficiency (Chronic) Hospital Course and Treatment Operations: None Summary of Care Provided: 1. NSTEMI ; treat as acute coronary syndrome with guideline directed medical therapy and she underwent left heart catheterization that did not require any stenting. 2. Acute congestive heart failure; treated with IV Lasix and transitioned to oral Lasix at the time of discharge. 3. Acute hypoxic respiratory failure; due to #1 improved 4. Coronary artery disease; will continue her on cardioprotective medications 5. Diabetes mellitus type 2 8. Hypertension; controlled at the time of discharge 7. Hyperlipidemia; will continue on his statin 8. Hypothyroidism; she is on Synthroid 9. Schizophrenia; this is stable This is a 77 year old F with an extensive cardiac history who presented to the emergency room complaining of shortness of breath. She was noted to be in mild congestive heart failure she was given intravenous Lasix and also had a CT scan performed of her chest because it was not clear whether she had a pulmonary problem going on. CT angiogram of the chest was negative for PE. Her troponin was elevated consistent with non-ST elevation myocardial infarction. Cardiology was consulted and Dr. Foster saw this patient and performed left heart catheterization on July 31, 2017 and it showed; Left anterior descending artery with severe mid segments to distal segment disease. Disease also involving diagonal vessel 1 and 2. Left circumflex artery with ostial 40% stenosis. This vessel was recently stented. Moderate disease in the rest of the circumflex artery. Dominant right coronary artery with mild diffuse disease. Left ventricular ejection fraction reduction with anterior hypokinesis estimated ejection fraction of 40%. The Above is suggestive of a takotsubo like patent. Patient was discharged home in a stable condition. On exam at the time of discharge; vital signs were stable. He was alert and oriented to time place and person. He did not appear to be any form of distress. S1 and S2 heard no murmur or gallop Lung exam was clear to auscultation with no adventitious sounds. Abdomen was soft nontender with normal bowel sounds. extremity exam did not reveal any edema, palpable pulses bilaterally. Neurologic exam was grossly intact. Discharge Diet: No Restrictions Discharge Activity: Return to Normal Activity Home Medications: Medications to take at Discharge Aspirin [Aspirin, Baby] 81 mg PO DAILY@0800 06/30/17 Carvedilol [Coreg] 12.5 mg PO BID 06/30/17 Clopidogrel Bisulfate [Clopidogrel] 75 mg PO DAILY 06/30/17 Furosemide [Lasix] 40 mg PO DAILY 06/30/17 Insulin Glargine,Hum.rec.anlog [Toujeo Solostar] 30 unit SQ DAILY 06/30/17 Insulin Regular, Human [Humulin R] 0 unit TID 06/30/17 Isosorbide Mononitrate [Isosorbide Mononitrate ER] 30 mg PO DAILY 06/30/17 Levothyroxine [Synthroid] 175 mcg PO DAILY 06/30/17 Losartan Potassium [Cozaar] 50 mg PO DAILY 06/30/17 Nitroglycerin [Nitrostat] 0.4 mg SL PRN PRN 06/30/17 Potassium Chloride [K-Tab ER] 8 meq PO DAILY 06/30/17 Pravastatin [Pravachol] 80 mg PO DAILY 06/30/17 Ranolazine [Ranexa] 500 mg PO BID 06/30/17 TraMADol [Ultram] 50 mg PO BID PRN 07/02/17 Docusate Sodium [Colace] 200 mg PO BID PRN PRN capsule 07/31/17 Furosemide [Lasix] 40 mg PO DAILY 3 Days #30 tablet 07/31/17 Following Prescrptions Were Given to Patient: Furosemide [Lasix] 40 mg PO DAILY 3 Days #30 tablet Primary Care Physician: Diana Cohen MD [Primary Care Provider] - Within 2 Weeks Meaningful Use Info Meaningful Use Diagnoses (Choose all that apply): None applicable Code Visit Inpatient E&M: 56428 Disch Hosp
--- NOTE | 2017-07-31 13:20 | CASEMGMT ---
Discharge instructions, as well as, HHC order, and F2F for [facility] and [facility] faxed to [facility] at this time. Message left with pt's embedded case manager thru waiver program to notify her of pt discharge at this time. Rolando TREVINO CM
== END 2017-07-31 13:56 | disposition home health service (06) | DRG 280 ==
LOC: ED 21:48 → PCU 23:26
PROVIDERS: Internal Medicine; Internal Medicine Cardiovascular Disease; Admitting Provider Family Medicine; Emergency Provider Emergency Medicine; Family Provider Internal Medicine; PCP Internal Medicine; Visit Provider Internal Medicine
DX: I22.2 Subsequent non-ST elevation (NSTEMI) myocardial infarction (principal); I50.33 Acute on chronic diastolic (congestive) heart failure; D61.818 Other pancytopenia; I21.4 Non-ST elevation (NSTEMI) myocardial infarction; E03.9 Hypothyroidism, unspecified; E78.5 Hyperlipidemia, unspecified; I11.0 Hypertensive heart disease with heart failure; Z79.4 Long term (current) use of insulin; I25.10 Atherosclerotic heart disease of native coronary artery without angina pectoris; E66.9 Obesity, unspecified; Z68.30 Body mass index [BMI] 30.0-30.9, adult; I87.2 Venous insufficiency (chronic) (peripheral); Z95.5 Presence of coronary angioplasty implant and graft; I08.1 Rheumatic disorders of both mitral and tricuspid valves; E11.9 Type 2 diabetes mellitus without complications; I73.9 Peripheral vascular disease, unspecified; F20.9 Schizophrenia, unspecified
CPT/HCPCS: 36415; 71275; 72191; 74175; 80048; 80061; 81001; 82962; 83605; 83690; 83735; 84443; 84484; 85025; 85610; 85730; 87804; 93005; 93306; 93458; 94640; 97110; 97162; 97166; 97530; 97535; 97802; 99152; 99153; 99285; J7030; Q9967; A4216; C1769; C1894; J1940; J2405

== ENCOUNTER 2017-09-15 22:40 | Emergency (ER) | payer MEDICARE, SELFPAY ==
[2017-09-15 22:43] VITALS: BP 163/68; PULSE 85; RESP 19; TEMP 36.8; O2SAT 96; BMI 31.4
--- NOTE | 2017-09-15 22:50 | EKG12_ITS ---
Test Reason : CP Blood Pressure : / mmHG Vent. Rate : 083 BPM Atrial Rate : 083 BPM P-R Int : 174 ms QRS Dur : 086 ms QT Int : 436 ms P-R-T Axes : 057 -05 092 degrees QTc Int : 512 ms Normal sinus rhythm ST & T wave abnormality, consider inferior and lateral ischemia Prolonged QT Abnormal ECG Confirmed by JUAN ALBERTO CHEW, RC ([id number]), science editor THAD HOOKER ([id number]) on 09/17/2017 1:27:15 PM Referred By: ALDAIR Confirmed By:RC AVENDANO MD
--- NOTE | 2017-09-15 22:50 | RAD_ITS ---
STUDY: X-RAY CHEST REASON FOR EXAM: Female, 77 years old. Chest pain TECHNIQUE: A single frontal view of the chest was obtained. COMPARISON: June 30, 2017 FINDINGS: The lungs are underaerated. There are increased interstitial markings throughout the lungs. There are no focal airspace opacities. There is no demonstrated pleural abnormality. There is borderline enlargement of the cardiac silhouette. The mediastinum and hilar regions are unremarkable. The central vessels are indistinct. There is atherosclerotic calcification of the thoracic aorta. There are diffuse degenerative changes of the visualized spine. There are degenerative changes in both shoulders. There is no demonstrated abnormality of the visualized upper abdomen. RAD/Chest 1 View (Portable) IMPRESSION: No acute cardiopulmonary abnormalities or changes. There is stable prominence of the cardiac silhouette with vascular congestion. There is no evidence of pleural effusion. There is stable diffuse fibrosis. Electronically Signed: Aziza Holland MD at 23:31 EST Tel Direct: [phone], Service support ,
[2017-09-15 23:20] VITALS: O2SAT 98
[2017-09-15 23:48] LABS: Absolute Lymphocyte Count 0.86 X10^3/ul (0.83-4.51); Absolute Neutrophil Count 1.2 X10^3/uL (2.0-7.7); Basophil# 0.03 X10^3/uL; Basophil% 1.3 % (0-1); Eosinophil# 0.12 X10^3/uL; Hematocrit 32.5 % (37-47); Hemoglobin 10.6 g/dl (12.0-15.0); Lymphocyte # 0.86 X10^3/ul (4.0); Mean Corp Hgb Conc 32.6 g/gl (32-36); Mean Corpuscular Hgb 30.9 pg (27.0-32.0); Mean Corpuscular Volume 94.8 fL (81-99); Mean Platelet Vol. 10.3 fl (6.2-12.0); Monocyte# 0.18 X10^3/uL; Monocyte% 7.5 % (0-10); Neutrophil % 50.2 % (47-70); Platelet Count 95 K/mm3 (150-450); RBC Distribution Width CV 13.2 % (11.6-14.6); RBC Distribution Width SD 43.6 fl (35.1-43.9); Red Blood Count 3.43 M/mm3 (4.2-5.4); White Blood Count 2.4 K/mm3 (4.4-11.0)
[2017-09-15 23:58] LABS: POSITIVE COUNT NO; POSITIVE DIFFERENTIAL NO; POSITIVE MORPHOLOGY NO
[2017-09-16 00:02] VITALS: BP 157/58; PULSE 71; RESP 15; O2SAT 100
[2017-09-16] MEDS: Furosemide 40 MG/4 ML Vial IV (00:16)
[2017-09-16] MEDS: 0.9% Normal Saline 1,000 ML 150 ML IV (00:16)
[2017-09-16 00:33] LABS: Anion Gap 8 (5-15); BUN 15 mg/dL (7-18); BUN/Creat Ratio 22.6 RATIO (10-20); Calcium,Total 8.3 mg/dL (8.5-10.1); Chloride 108 mmol/L (98-107); Creatinine, Serum 0.66 mg/dL (0.55-1.02); EST Glomerular Filtration Rate 91 mL/min (>60); Est Glom Filt Rate - Afr Amer 111 mL/min (>60); Estimated Creatinine Clearance 45.09 ml/min; Glucose 247 mg/dL (74-106); Potassium 3.7 mmol/L (3.5-5.1); Sodium Level 145 mmol/L (136-145)
--- NOTE | 2017-09-16 01:05 | EKG12_ITS ---
Test Reason : REPEAT Blood Pressure : / mmHG Vent. Rate : 067 BPM Atrial Rate : 067 BPM P-R Int : 180 ms QRS Dur : 090 ms QT Int : 466 ms P-R-T Axes : 053 000 115 degrees QTc Int : 492 ms Normal sinus rhythm Left ventricular hypertrophy ST/ T wave abnormality: consider LVH repolarization; myocardial ischemia Prolonged QT Abnormal ECG Confirmed by JUAN ALBERTO CHEW, RC ([id number]), order editor THAD HOOKER ([id number]) on 09/17/2017 1:28:35 PM Referred By: GUSTABO Confirmed By:RC AVENDANO MD
[2017-09-16 01:34] VITALS: BP 160/63; PULSE 66; RESP 15; O2SAT 100
[2017-09-16 02:19] VITALS: BP 140/82; PULSE 67; RESP 17; O2SAT 100
--- NOTE | 2017-09-16 02:47 | ED.VISSUMM ---
- ER Visit Summary Date of Service: 09/16/17 Chief Complaint: Chest pain History of Present Illness: The patient is a [address] Cohen and Dr. Malik. She is a poor informant. She reports that she has a burning chest pain that began approximately 1 week ago. It is 10 out of 10 with exertion and 6 out of 10 at rest. She reports that tonight it got acutely worse. She was nauseated and short of breath. Physical Examination: Vitals: Stable. Afebrile. General: Well-nourished and well-developed. Head: Normocephalic atraumatic. Neck: Supple, no lymphadenopathy. No JVD. Nontender. Cardiovascular: Regular rate and rhythm. 2 out of 6 systolic murmur. Respiratory: No respiratory distress. Crackles at the bases bilaterally. Abdominal: Soft, nontender, nondistended, normal bowel sounds. No guarding, rebound, or peritoneal signs. Back: Nontender. Extremities: Nontender, 2+ pitting edema of her lower extremities bilaterally. Skin: Normal color, no rash. Neurologic: Alert and oriented ?3. Cranial nerves II through XII are intact. Normal strength and sensation. Psych: Normal affect. Test Results: EKG is sinus at [address] depression. The ST depression is worse than her last EKG in July 2017. Repeat EKG shows the ST depression to have been improved from the prior tonight. Chest x-ray shows cardiomegaly and vascular congestion. CBC is marked for white count of 2.4, H&H of 10.6 and 32.5, platelets of 95. Chem-7 is more for chloride of 108, glucose of 247, calcium 8.3. Initial troponin is 0.22. Emergency Department Course and Treatment: Patient was treated with 40 mg of Lasix IV. She was given aspirin by EMS this was not repeated. She is given heparin IV. Treatment Plan: She was discussed with Dr. Kumar after reviewing her records. She has had multiple heart catheterizations in the past year that shows she has disease that is not amenable to stenting. I had a prolonged discussion with the patient about the fact that she needs to opt for either medical management or bypass grafting for this. She had a heart catheterization at [facility] last fall and at that time refused a bypass. After answering all of her questions in a prolonged discussion the patient reports that she is not ready to give up and just do medical management. She is asking for transfer back to [facility]. She was discussed with Dr. Cheung who has accepted her in transfer. Disposition: Transferred in improved but serious condition. Impression: 1. Chest pain. 2. Pancytopenia. 3. Critical care time 30 minutes. This note was generated with [employer] dictation software. It may contain incorrect words, spelling, and punctuation that were not noted in review of the chart prior to signing ED Disposition - Plan for ED Patient: Chief Complaint: Chest Pain Referrals: Diana Cohen MD [Primary Care Provider] -
--- NOTE | 2017-09-16 02:53 | ED.DCSUM_ITS ---
- ER Visit Summary Date of Service: 09/16/17 Chief Complaint: Chest pain History of Present Illness: The patient is a [address] Cohen and Dr. Malik. She is a poor informant. She reports that she has a burning chest pain that began approximately 1 week ago. It is 10 out of 10 with exertion and 6 out of 10 at rest. She reports that tonight it got acutely worse. She was nauseated and short of breath. Physical Examination: Vitals: Stable. Afebrile. General: Well-nourished and well-developed. Head: Normocephalic atraumatic. Neck: Supple, no lymphadenopathy. No JVD. Nontender. Cardiovascular: Regular rate and rhythm. 2 out of 6 systolic murmur. Respiratory: No respiratory distress. Crackles at the bases bilaterally. Abdominal: Soft, nontender, nondistended, normal bowel sounds. No guarding, rebound, or peritoneal signs. Back: Nontender. Extremities: Nontender, 2+ pitting edema of her lower extremities bilaterally. Skin: Normal color, no rash. Neurologic: Alert and oriented ?3. Cranial nerves II through XII are intact. Normal strength and sensation. Psych: Normal affect. Test Results: EKG is sinus at [address] depression. The ST depression is worse than her last EKG in July 2017. Repeat EKG shows the ST depression to have been improved from the prior tonight. Chest x-ray shows cardiomegaly and vascular congestion. CBC is marked for white count of 2.4, H& H of 10.6 and 32.5, platelets of 95. Chem-7 is more for chloride of 108, glucose of 247, calcium 8.3. Initial troponin is 0.22. Emergency Department Course and Treatment: Patient was treated with 40 mg of Lasix IV. She was given aspirin by EMS this was not repeated. She is given heparin IV. Treatment Plan: She was discussed with Dr. Kumar after reviewing her records. She has had multiple heart catheterizations in the past year that shows she has disease that is not amenable to stenting. I had a prolonged discussion with the patient about the fact that she needs to opt for either medical management or bypass grafting for this. She had a heart catheterization at [facility] last fall and at that time refused a bypass. After answering all of her questions in a prolonged discussion the patient reports that she is not ready to give up and just do medical management. She is asking for transfer back to [facility]. She was discussed with Dr. Cheung who has accepted her in transfer. Disposition: Transferred in improved but serious condition. Impression: 1. Chest pain. 2. Pancytopenia. 3. Critical care time 30 minutes. This note was generated with [employer] dictation software. It may contain incorrect words, spelling, and punctuation that were not noted in review of the chart prior to signing ED Disposition - Plan for ED Patient: Chief Complaint: Chest Pain Referrals: Diana Cohen MD [Primary Care Provider] -
[2017-09-16 03:06] VITALS: BP 155/57; PULSE 62; RESP 12; O2SAT 99
[2017-09-16] MEDS: HEPARIN/D5w 25,000 UNITS 25,000 UNITS/250 ML IV.SOLN. 14 UNITS IV (03:32)
[2017-09-16 03:37] LABS: International Normalized Ratio 1.1; Prothrombin Time (Protime)PT. 14.1 SECONDS (11.7-14.9)
[2017-09-16 04:21] VITALS: BP 161/67; PULSE 67; RESP 17; TEMP 36.7; O2SAT 99
--- NOTE | 2017-09-16 04:23 | ED.RN ---
PT TRANSFERRED TO [facility]. THIS RN ASSISTED PT IN DIALING PHONE CALL PRIOR TO LEAVING. PT DECLINED OFFER TO CONTACT FAMILY. PT REPORTS SHE WILL CALL WITH HER PHONE. PT ASSISTED TO BEDSIDE COMMODE. THIS RN ASSISTED PT TO TRANSFER COT. PT TAKING 4 PURSES FULL OF PERSONAL BELONGINGS, CELLPHONE, WALLET, PINK SHIRT, BLACK BOOTIES WITH HER ON TRANSPORT. [facility] UNABLE TO TRANSPORT PT WALKER. THIS RN LABELED PT WALER WITH BELONGING STICKER AND PLACED WALKER WITH MEDIATION COMMISSIONER. PT TO CONTACT SOMEONE TO PICK IT UP WITHIN A COUPLE DAYS. RN CONTACTED GENERAL AND INFORMED THEM OF PT DEPARTURE WITH TRANSPORT.
== END 2017-09-16 04:27 | disposition short-term general hospital (02) ==
LOC: ED 23:21
PROVIDERS: Emergency Provider Emergency Medicine; Family Provider Internal Medicine; PCP Internal Medicine
DX: R07.9 Chest pain, unspecified (principal); D61.818 Other pancytopenia; I51.7 Cardiomegaly; I25.10 Atherosclerotic heart disease of native coronary artery without angina pectoris; Z82.49 Family history of ischemic heart disease and other diseases of the circulatory system; Z79.82 Long term (current) use of aspirin; Z79.899 Other long term (current) drug therapy
CPT/HCPCS: 71045; 80048; 84484; 85025; 85610; 93005; 96361; 96365; 96375; 99285; J7030; A4216; J1940

== ENCOUNTER → 2017-10-16 11:05 | Outpatient (CLI) | payer MEDICARE, SELFPAY ==
[2017-10-16 11:59] LABS: Anion Gap 3 (5-15); BUN 18 mg/dL (7-18); BUN/Creat Ratio 23.7 RATIO (10-20); Calcium,Total 8.9 mg/dL (8.5-10.1); Chloride 103 mmol/L (98-107); Creatinine, Serum 0.76 mg/dL (0.55-1.02); EST Glomerular Filtration Rate 78 mL/min (>60); Est Glom Filt Rate - Afr Amer 95 mL/min (>60); Glucose 164 mg/dL (74-106); Potassium 3.9 mmol/L (3.5-5.1); Sodium Level 139 mmol/L (136-145)
== END ==
PROVIDERS: Physician Assistant Medical; Family Provider Internal Medicine; PCP Internal Medicine
DX: I25.119 Atherosclerotic heart disease of native coronary artery with unspecified angina pectoris (principal); I10 Essential (primary) hypertension; Z95.5 Presence of coronary angioplasty implant and graft
CPT/HCPCS: 36415; 80048

== ENCOUNTER 2017-11-03 14:51 | Inpatient (IN) | payer MEDICARE, MEDICAID, SELFPAY ==
[2017-11-03] VITALS (15 sets, daily range): BP systolic 118–230; BP diastolic 63–113; PULSE 72–106; RESP 13–26; TEMP 36.4–36.9; O2SAT 94–98; BMI 30.8; BMI 30.7
--- NOTE | 2017-11-03 15:25 | RAD_ITS ---
STUDY: X-RAY CHEST REASON FOR EXAM: Female, 77 years old. Chest pain and shortness of breath TECHNIQUE: Single AP portable view of the chest. COMPARISON: September 15, 2017 FINDINGS: The lungs are hypoinflated. Diffuse interstitial prominence noted throughout suggesting pulmonary edema or chronic process. There is no demonstrated pleural abnormality. There is mild cardiac enlargement. Normal mediastinum and rell. Normal visualized pulmonary arteries. Normal visualized aortic arch and descending thoracic aorta. There are diffuse degenerative changes of the visualized thoracic spine. There is degenerative osteoarthritis of the bilateral shoulders. There is no demonstrated abnormality of the visualized soft tissue structures of the upper abdomen. RAD/Chest 1 View (Portable) IMPRESSION: Stable diffuse interstitial prominence suggesting edema or interstitial chronic process Electronically Signed: Jhoan Myers DO at 16:21 EDT Tel , Service support ,
--- NOTE | 2017-11-03 15:25 | EKG12_ITS ---
Test Reason : CP Blood Pressure : / mmHG Vent. Rate : 085 BPM Atrial Rate : 085 BPM P-R Int : 178 ms QRS Dur : 090 ms QT Int : 412 ms P-R-T Axes : 074 -06 128 degrees QTc Int : 490 ms Normal sinus rhythm Left ventricular hypertrophy with repolarization abnormality Prolonged QT Abnormal ECG Anterolateral ischemia Confirmed by SILVINA CHEW, NILSON ([id number]), deputy editor in chief THAD HOOKER ([id number]) on 11/05/2017 1:45:55 PM Referred By: MANJULA Confirmed By:NILSON COOL MD
[2017-11-03] MEDS: 0.9% Normal Saline 1,000 ML 150 ML IV (16:01)
[2017-11-03] MEDS: Aspirin 81 MG TAB.CHEW 324 MG PO (16:01)
--- NOTE | 2017-11-03 16:01 | ED.RN ---
COMPUTER IN ROOM NOT WORKING, MULTI CRAFT MAINTENANCE TECHNICIAN NOTIFIED.
--- NOTE | 2017-11-03 16:15 | ED.RN ---
PT C/O CHEST PAIN AND TIGHTNESS. AWARE. NO ORDERS YET FOR PAIN MEDS.
[2017-11-03 16:17] LABS: Absolute Lymphocyte Count 1.05 X10^3/ul (0.83-4.51); Basophil# 0.01 X10^3/uL; Basophil% 0.3 % (0-1); Eosinophil# 0.12 X10^3/uL; Eosinophils% 3.6 % (0-5); Hematocrit 36.8 % (37-47); Lymphocyte # 1.05 X10^3/ul (4.0); Lymphocyte % 31.8 % (19-41); Mean Corp Hgb Conc 32.6 g/gl (32-36); Mean Corpuscular Hgb 30.4 pg (27.0-32.0); Mean Corpuscular Volume 93.2 fL (81-99); Mean Platelet Vol. 9.5 fl (6.2-12.0); Monocyte# 0.13 X10^3/uL; Monocyte% 3.9 % (0-10); Neutrophil # 1.99 X10^3/uL (2.7-7.7); Neutrophil % 60.4 % (47-70); Platelet Count 119 K/mm3 (150-450); RBC Distribution Width CV 13.6 % (11.6-14.6); RBC Distribution Width SD 46.3 fl (35.1-43.9); Red Blood Count 3.95 M/mm3 (4.2-5.4); White Blood Count 3.3 K/mm3 (4.4-11.0)
[2017-11-03 16:19] LABS: POSITIVE COUNT NO; POSITIVE DIFFERENTIAL NO; POSITIVE MORPHOLOGY NO
--- NOTE | 2017-11-03 16:27 | ED.DCSUM_ITS ---
- ER Visit Summary Date of Service: 11/03/17 Chief Complaint: Chest pain History of Present Illness: The patient is a 77 F presenting for evaluation secondary chest pain. Patient has a underlying history of coronary artery disease with multiple stents in the past. Patient states that she was evaluated for coronary artery bypass, and was told that she would be of no benefit from the surgery. Patient states that over the course of last 2 days she has been having continuous chest pain that is a aching type pain that goes from her left chest down her left arm. Patient states that it has not been alleviated by aspirin tramadol or nitroglycerin. She denies that there is any sort of exacerbating relieving factors no exertional component to this. Patient states that her chest pain seems to be worse on Fridays and Saturdays. Physical Examination: Vital signs are within normal limits, patient is afebrile. General: Patient is well-nourished well-developed and in no acute distress. Head: Normocephalic, atraumatic Eyes: Pupils equal round and reactive bilaterally, extra occular motion intact bialterally ENT: Moist mucous membranes Neck: Supple, no lymphadenopathy, no JVD, no meningismus CVS: Heart regular rate and rhythm, 3 out of 6 systolic murmur noted, radial pulses 2+ bilaterally Resp: Respirations nondistressed, lung sounds clear bilaterally Abdomen: Soft, nontender, nondistended, no palpable masses, normal bowel sounds Back: Nontender Extremities: Nontender, atraumatic, active full range of motion, 1+ bilaterally symmetric peripheral edema Skin: warm, no rashes, no petechia Neuro: Alert and oriented x 4, CN 2-12 intact, no lateralizing neurological defecits Psyc: Normal affect Test Results: EKG shows sinus rhythm of 85. QTc is prolonged at 490. There are T-wave inversions noted in leads I and aVL and chronic ST depressions noted anterolaterally in the precordium that are unchanged from prior EKG. CBC and chemistry unremarkable. Troponin elevated at 0.13. Chest x-ray shows chronic changes. Emergency Department Course and Treatment: Patient presented for evaluation secondary chest pain. I reviewed patient's records, she does have a history of significant coronary artery disease and her last stay in the hospital her troponin elevated to 30 and she required transfer to [facility]. Patient was worked up today, she was found to have an elevated troponin of 0.13 with no evidence of acute EKG changes. Patient's heart score is 7, her SUMMER score is 6. Her elevated troponin and her reports chest pain and do not believe that she can safely be sent home. I contacted the hospitalist, the patient will be admitted for further observation. Disposition: Admission Impression: 1. Elevated troponin 2. Chest pain 3. History of coronary artery disease This note was generated with [employer] dictation software. It may contain incorrect words, spelling, and punctuation that were not noted in review of the chart prior to signing ED Disposition - Plan for ED Patient: Chief Complaint: Chest Pain Referrals: Diana Cohen MD [Primary Care Provider] -
[2017-11-03 16:29] LABS: Anion Gap 7 (5-15); BUN 19 mg/dL (7-18); Chloride 105 mmol/L (98-107); Creatinine, Serum 0.66 mg/dL (0.55-1.02); EST Glomerular Filtration Rate 93 mL/min (>60); Est Glom Filt Rate - Afr Amer 112 mL/min (>60); Estimated Creatinine Clearance 45.09 ml/min; Glucose 224 mg/dL (74-106); Potassium 3.9 mmol/L (3.5-5.1); Sodium Level 141 mmol/L (136-145)
[2017-11-03] MEDS: Morphine 4 MG/ML Syringe IV (17:01)
--- NOTE | 2017-11-03 17:03 | PCM.HP.STD ---
Problem List (1) Schizophrenia Status: Chronic (2) S/P PTCA (percutaneous transluminal coronary angioplasty) Status: Chronic (3) History of coronary artery stent placement Status: Chronic (4) Atherosclerotic heart disease [place] coronary artery w/angina pectoris Status: Chronic (5) Hypertension Status: Chronic Qualifiers: (6) Hypothyroidism Status: Chronic Qualifiers: (7) Hyperlipidemia Status: Chronic Qualifiers: (8) Diabetes mellitus, type II Status: Chronic Qualifiers: (9) CHF (congestive heart failure) Status: Chronic Qualifiers: History of Present Illness Date of Admission: 11/03/17 Chief Complaint: Chest pain. The patient is a 77 year old F with multiple medical comorbidities as mentioned above presented to the emergency room because of chest pain. The patient is poor informant and not able to provide good history. She mentioned that her pain started today on walking, sharp pain, radiates to her left upper extremity as well as left shoulder, associated with shortness of breath and without aggravating or relieving factors. She informed the ER physician that her pain has been going on for the last 2 days. She mentioned that her pain is not alleviated by aspirin, tramadol or nitroglycerin. She has significant complicated cardiac history and recently, she was transferred to a tertiary care center for possible CABG but apparently, she is not a good candidate for CABG. She mentioned that she saw Dr. Malik after that and her dose of isosorbide mononitrate increased but she continued to have intermittent chest pain on exertion. In the emergency room, blood pressure was elevated, other vital signs were stable. Her routine blood work is remarkable for chronic leukopenia and thrombocytopenia, otherwise normal. Her troponin is 0.13. EKG revealed normal sinus rhythm with ST segment depression and T-wave inversion in lateral chest leads. Those changes are chronic. Chest x-ray revealed minimal pulmonary vascular congestion, no infiltrate. She is being admitted for chest pain with borderline elevated troponin for evaluation. 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[place] coronary artery w/angina pectoris (Chronic) Pancytopenia (Chronic) Cognitive changes (Chronic) Hypertension (Chronic) Hypothyroidism (Chronic) Hyperlipidemia (Chronic) Diabetes mellitus, type II (Chronic) Venous insufficiency (Chronic) CHF (congestive heart failure) (Chronic) NSTEMI (non-ST elevated myocardial infarction) (Chronic) Intermittent claudication (Chronic) Tricuspid valve insufficiency (Chronic) Mitral valve insufficiency (Chronic) Obesity (BMI 30.0-34.9) (Chronic) Allergies atorvastatin calcium [From Lipitor] Adverse Reaction (Verified 11/03/17 15:19) Unknown rosiglitazone maleate [From Avandia] Adverse Reaction (Verified 11/03/17 15:19) Other Home Medications: Ambulatory Orders Medication Instructions Recorded Aspirin [Aspirin, Baby] 81 mg PO DAILY@0800 06/30/17 Carvedilol [Coreg] 12.5 mg PO BID 06/30/17 Clopidogrel Bisulfate [Clopidogrel] 75 mg PO DAILY 06/30/17 Insulin Glargine,Hum.rec.anlog 30 unit SQ DAILY 06/30/17 [Touj[place]antelle Solostar] Insulin Regular, Human [Humulin R] 8 unit SQ TIDCM 06/30/17 Levothyroxine [Synthroid] 175 mcg PO DAILY 06/30/17 Losartan Potassium [Cozaar] 50 mg PO DAILY 06/30/17 Nitroglycerin [Nitrostat] 0.4 mg SL PRN PRN 06/30/17 Pravastatin [Pravachol] 80 mg PO DAILY 06/30/17 traMADol [Ultram] 50 mg PO BID PRN 07/02/17 Docusate Sodium [Colace] 200 mg PO BID PRN PRN capsule 07/31/17 furosemide 40 mg tablet 40 mg PO BID 3 Days #60 tab 10/02/17 potassium chloride ER 8 mEq 8 meq PO DAILY #90 tab 10/02/17 tablet,extended release isosorbide mononitrate ER 30 mg 60 mg PO DAILY #90 tab 10/16/17 tablet,extended release 24 hr ranolazine ER 1,000 mg 1,000 mg PO Q12H #180 tab 10/22/17 tablet,extended release,12 hr Ascorbic Acid [Vitamin C] 1,000 mg PO DAILY 11/03/17 Cholecalciferol (Vitamin D3) 5,000 unit PO DAILY 11/03/17 [Vitamin D3] Folic Acid 0.4 mg PO DAILY@0800 11/03/17 Multivitamin [Multiple Vitamins] 1 each PO DAILY 11/03/17 Surgical History: angioplasty, appendectomy, cholecystectomy, tonsillectomy, - - Spinal fusion Psychiatric History: No pertinent psych hx [employer] History: No pertinent [employer] 5 [employer] history Smoking Status: Never smoker Alcohol: None Drugs: None - *Family History Maternal History Items: No pertinent history Paternal History Items: No pertinent history Review of Systems Constitutional: Denies: Anorexia, Chills, Fever, Weakness Eyes: Denies: Blurred vision, Double vision, Drainage, Vision Change HEENT: Denies: Difficulty Hearing, Ear Pain, Eye Pain, Nasal Congestion, Sore Throat Cardiovascular: Reports: Chest Pain. Denies: Chest Pressure, Chest Tightness, Edema, Heaviness, Light Headedness, Orthopnea, Palpitations, Paroxysmal Noc. Dyspnea, Syncope Respiratory: Reports: Shortness of Breath. Denies: Cough, Pleuritic Pain, Sputum production, Wheezing Gastrointestinal: Reports: Nausea. Denies: Abdominal Pain, Constipation, Diarrhea, Vomiting Genitourinary: Denies: Dysuria, Frequency, Hematuria Musculoskeletal: Denies: Arm Pain, Back Pain, Foot Pain Skin: Denies: Dryness, Rash Neurological: Denies: Balance problems, Double vision, Slurred speech, Confusion, Headaches, Incoordination Psychiatric: Denies: Anxiety, Depression Endocrine: Denies: Change in Body Habitus, Polydipsia VTE Information - Inpt Only VTE Present on Admission: No VTE Mechan Device Prophylaxis: None VTE Pharm Prophylaxis ordered?: Yes - Physical Exam General: Alert, Oriented x3, Cooperative, No apparent distress HEENT: Atraumatic, PERRLA, EOMI Oral: Moist Mucosa, No Gingival or Mucosal Lesions/ Ulcerations Neck: Supple, No JVD, Negative Carotid Bruits, Trachea Midline, Thyroid Normal Size and Texture Lungs: Clear to auscultation, No rhonchi, No wheeze, No rales, Diminished Cardiovascular: Regular rate, Regular Rhythm, Normal S1, Normal S2, PMI Normal Abdomen: Bowel Sounds Present, Soft, Non Tender, Non-Distended, No Hepato-splenomegaly Extremities: No clubbing, No cyanosis, Edema - ++ Edema. Skin: No rashes, No breakdown Lymphatic: No Cervical, Supraclavicular, or Inguinal Adenopathy Neurological: Cranial nerves II-XII grossly intact, Motor Exam 5/5 strength throughout Psych/Mental Status: Normal Affect, Appropriate, Alert and oriented to time, place, person, mood and affect Vital Signs Temp Pulse Resp BP Pulse Ox 98.2 F 87 24 H 118/90 H 98 11/03/17 16:51 11/03/17 16:51 11/03/17 16:51 11/03/17 16:51 11/03/17 16:51 Oxygen Flow Rate (L/min) 2 Oxygen Delivery Method Nasal Cannula Weight: 197 lb Body Mass Index (BMI) 30.8 Finger Stick Blood Glucose 270 Laboratory Tests Past 24 Hrs 11/03/17 11/03/17 15:58 15:58 WBC 3.3 L RBC 3.95 L Hgb 12.0 Hct 36.8 L MCV 93.2 MCH 30.4 MCHC 32.6 RDW 13.6 RDW Differential 46.3 H Plt Count 119 L MPV 9.5 Immature Gran % (Auto) 0.000 Neut % (Auto) 60.4 Lymph % (Auto) 31.8 [place] % (Auto) 3.9 Eos % (Auto) 3.6 Baso % (Auto) 0.3 Absolute Neuts (auto) 2.0 Absolute Lymphs (auto) 1.05 Total Counted Not Reportable Sodium 141 Potassium 3.9 Chloride 105 Carbon Dioxide 29.0 Anion Gap 7 BUN 19 H Creatinine 0.66 Estim Creat Clear Calc 45.09 Est GFR (MDRD) Af Amer 112 Est GFR (MDRD) Non-Af 93 BUN/Creatinine Ratio 29.0 H Glucose 224 H Calcium 9.0 Troponin I 0.13 H Clinical Impression(s) from Imaging Studies Chest X-Ray 11/03/17 15:25 IMPRESSION: Stable diffuse interstitial prominence suggesting edema or interstitial chronic process Electronically Signed: Jhoan Myers DO at 16:21 EDT Tel , Service support , Assessment/Plan This is a 77 years old female patient with complicated past cardiac history presented to the medicine because of chest pain and she was found to have borderline elevated troponin and she is being admitted for evaluation. #1 chest pain/borderline elevated troponin: In context of history of complicated cardiac history with multivessel disease, not a candidate for CABG. her EKG revealed normal sinus rhythm with ST segment depression and T-wave inversion in lateral chest leads and those changes are chronic, no acute ST elevation. Her troponin is 0.13. At this time, she does have chest pain which seemed to be atypical. She had cardiac catheterization on July, that revealed triple-vessel disease of the LAD, ostial circumflex and proximal diagonal branch which appeared to be moderate and improved compared to previous cardiac catheterization that was done on June, and at that time, medical therapy recommended. Also, patient mentioned that her pain goes to the epigastric region and across her upper abdomen associated with heartburn and reflux. Plan: Admit to PCU, cardiac monitoring, serial cardiac enzymes, Nitropaste, IV morphine as needed, lipid profile, lipase, continue aspirin, Plavix, beta blockers and nitrates and losartan, cardiology consult, repeat CBC and BMP tomorrow morning. #2 CAD status post multiple stents: As mentioned above, cardiac catheterization on July 2017 and revealed triple-vessel disease which appears to be moderate and improved compared to heart cath on June,. Plan as above, continue aspirin, statins, Plavix, beta blockers and losartan, cardiology consult. #3 hypertension: Blood pressure upon arrival to ER was elevated, maximum was 176/76. Plan to continue Coreg, losartan, isosorbide mononitrate and start IV hydralazine as needed. #4 type 2 diabetes mellitus: ADA diet, Accu-Cheks, insulin sliding scale, continue home dosage of Levemir insulin and pre-meal NovoLog. #5 hypothyroidism: Continue levothyroxine. #6 hyperlipidemia: Continue statins. #7 chronic pancytopenia: Unclear etiology. She does have history of chronic anemia which is likely anemia of chronic disease. Her platelet count is chronically low as well as her total white blood cell count. No evidence of neutropenia. She is afebrile. #8 DVT prophylaxis: Subcu Lovenox. This note was generated with [employer] dictation software. It may contain incorrect words, spelling, and punctuation that were not noted in checking the note before signing. Code Visit Inpatient E&M: 70960 Init Hosp L3
--- NOTE | 2017-11-03 17:11 | HP.PCM_ITS ---
Problem List (1) Schizophrenia Status: Chronic (2) S/P PTCA (percutaneous transluminal coronary angioplasty) Status: Chronic (3) History of coronary artery stent placement Status: Chronic (4) Atherosclerotic heart disease [place] coronary artery w/angina pectoris Status: Chronic (5) Hypertension Status: Chronic Qualifiers: (6) Hypothyroidism Status: Chronic Qualifiers: (7) Hyperlipidemia Status: Chronic Qualifiers: (8) Diabetes mellitus, type II Status: Chronic Qualifiers: (9) CHF (congestive heart failure) Status: Chronic Qualifiers: History of Present Illness Date of Admission: 11/03/17 Chief Complaint: Chest pain. The patient is a 77 year old F with multiple medical comorbidities as mentioned above presented to the emergency room because of chest pain. The patient is poor informant and not able to provide good history. She mentioned that her pain started today on walking, sharp pain, radiates to her left upper extremity as well as left shoulder, associated with shortness of breath and without aggravating or relieving factors. She informed the ER physician that her pain has been going on for the last 2 days. She mentioned that her pain is not alleviated by aspirin, tramadol or nitroglycerin. She has significant complicated cardiac history and recently, she was transferred to a tertiary care center for possible CABG but apparently, she is not a good candidate for CABG. She mentioned that she saw Dr. Malik after that and her dose of isosorbide mononitrate increased but she continued to have intermittent chest pain on exertion. In the emergency room, blood pressure was elevated, other vital signs were stable. Her routine blood work is remarkable for chronic leukopenia and thrombocytopenia, otherwise normal. Her troponin is 0.13. EKG revealed normal sinus rhythm with ST segment depression and T-wave inversion in lateral chest leads. Those changes are chronic. Chest x-ray revealed minimal pulmonary vascular congestion, no infiltrate. She is being admitted for chest pain with borderline elevated troponin for evaluation. 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 (Chronic) Pancytopenia (Chronic) Cognitive changes (Chronic) Hypertension (Chronic) Hypothyroidism (Chronic) Hyperlipidemia (Chronic) Diabetes mellitus, type II (Chronic) Venous insufficiency (Chronic) CHF (congestive heart failure) (Chronic) NSTEMI (non-ST elevated myocardial infarction) (Chronic) Intermittent claudication (Chronic) Tricuspid valve insufficiency (Chronic) Mitral valve insufficiency (Chronic) Obesity (BMI 30.0-34.9) (Chronic) Allergies atorvastatin calcium [From Lipitor] Adverse Reaction (Verified 11/03/17 15:19) Unknown rosiglitazone maleate [From Avandia] Adverse Reaction (Verified 11/03/17 15:19) Other Home Medications: Ambulatory Orders Medication Instructions Recorded Aspirin [Aspirin, Baby] 81 mg PO DAILY@0800 06/30/17 Carvedilol [Coreg] 12.5 mg PO BID 06/30/17 Clopidogrel Bisulfate [Clopidogrel] 75 mg PO DAILY 06/30/17 Insulin Glargine,Hum.rec.anlog 30 unit SQ DAILY 06/30/17 [Toujehcantelle Solostar] Insulin Regular, Human [Humulin R] 8 unit SQ TIDCM 06/30/17 Levothyroxine [Synthroid] 175 mcg PO DAILY 06/30/17 Losartan Potassium [Cozaar] 50 mg PO DAILY 06/30/17 Nitroglycerin [Nitrostat] 0.4 mg SL PRN PRN 06/30/17 Pravastatin [Pravachol] 80 mg PO DAILY 06/30/17 traMADol [Ultram] 50 mg PO BID PRN 07/02/17 Docusate Sodium [Colace] 200 mg PO BID PRN PRN capsule 07/31/17 furosemide 40 mg tablet 40 mg PO BID 3 Days #60 tab 10/02/17 potassium chloride ER 8 mEq 8 meq PO DAILY #90 tab 10/02/17 tablet,extended release isosorbide mononitrate ER 30 mg 60 mg PO DAILY #90 tab 10/16/17 tablet,extended release 24 hr ranolazine ER 1,000 mg 1,000 mg PO Q12H #180 tab 10/22/17 tablet,extended release,12 hr Ascorbic Acid [Vitamin C] 1,000 mg PO DAILY 11/03/17 Cholecalciferol (Vitamin D3) 5,000 unit PO DAILY 11/03/17 [Vitamin D3] Folic Acid 0.4 mg PO DAILY@0800 11/03/17 Multivitamin [Multiple Vitamins] 1 each PO DAILY 11/03/17 Surgical History: angioplasty, appendectomy, cholecystectomy, tonsillectomy, - - Spinal fusion Psychiatric History: No pertinent psych hx [employer] History: No pertinent [employer] history Smoking Status: Never smoker Alcohol: None Drugs: None - *Family History Maternal History Items: No pertinent history Paternal History Items: No pertinent history Review of Systems Constitutional: Denies: Anorexia, Chills, Fever, Weakness Eyes: Denies: Blurred vision, Double vision, Drainage, Vision Change HEENT: Denies: Difficulty Hearing, Ear Pain, Eye Pain, Nasal Congestion, Sore Throat Cardiovascular: Reports: Chest Pain. Denies: Chest Pressure, Chest Tightness, Edema, Heaviness, Light Headedness, Orthopnea, Palpitations, Paroxysmal Noc. Dyspnea, Syncope Respiratory: Reports: Shortness of Breath. Denies: Cough, Pleuritic Pain, Sputum production, Wheezing Gastrointestinal: Reports: Nausea. Denies: Abdominal Pain, Constipation, Diarrhea, Vomiting Genitourinary: Denies: Dysuria, Frequency, Hematuria Musculoskeletal: Denies: Arm Pain, Back Pain, Foot Pain Skin: Denies: Dryness, Rash Neurological: Denies: Balance problems, Double vision, Slurred speech, Confusion , Headaches, Incoordination Psychiatric: Denies: Anxiety, Depression Endocrine: Denies: Change in Body Habitus, Polydipsia VTE Information - Inpt Only VTE Present on Admission: No VTE Mechan Device Prophylaxis: None VTE Pharm Prophylaxis ordered?: Yes - Physical Exam General: Alert, Oriented x3, Cooperative, No apparent distress HEENT: Atraumatic, PERRLA, EOMI Oral: Moist Mucosa, No Gingival or Mucosal Lesions/ Ulcerations Neck: Supple, No JVD, Negative Carotid Bruits, Trachea Midline, Thyroid Normal Size and Texture Lungs: Clear to auscultation, No rhonchi, No wheeze, No rales, Diminished Cardiovascular: Regular rate, Regular Rhythm, Normal S1, Normal S2, PMI Normal Abdomen: Bowel Sounds Present, Soft, Non Tender, Non-Distended, No Hepato- splenomegaly Extremities: No clubbing, No cyanosis, Edema - ++ Edema. Skin: No rashes, No breakdown Lymphatic: No Cervical, Supraclavicular, or Inguinal Adenopathy Neurological: Cranial nerves II-XII grossly intact, Motor Exam 5/5 strength throughout Psych/Mental Status: Normal Affect, Appropriate, Alert and oriented to time, place, person, mood and affect Vital Signs Temp Pulse Resp BP Pulse Ox 98.2 F 87 24 H 118/90 H 98 11/03/17 16:51 11/03/17 16:51 11/03/17 16:51 11/03/17 16:51 11/03/17 16:51 Oxygen Flow Rate (L/min) 2 Oxygen Delivery Method Nasal Cannula Weight: 197 lb Body Mass Index (BMI) 30.8 Finger Stick Blood Glucose 270 Laboratory Tests Past 24 Hrs 11/03/17 11/03/17 15:58 15:58 WBC 3.3 L RBC 3.95 L Hgb 12.0 Hct 36.8 L MCV 93.2 MCH 30.4 MCHC 32.6 RDW 13.6 RDW Differential 46.3 H Plt Count 119 L MPV 9.5 Immature Gran % (Auto) 0.000 Neut % (Auto) 60.4 Lymph % (Auto) 31.8 [place] % (Auto) 3.9 Eos % (Auto) 3.6 Baso % (Auto) 0.3 Absolute Neuts (auto) 2.0 Absolute Lymphs (auto) 1.05 Total Counted Not Reportable Sodium 141 Potassium 3.9 Chloride 105 Carbon Dioxide 29.0 Anion Gap 7 BUN 19 H Creatinine 0.66 Estim Creat Clear Calc 45.09 Est GFR (MDRD) Af Amer 112 Est GFR (MDRD) Non-Af 93 BUN/Creatinine Ratio 29.0 H Glucose 224 H Calcium 9.0 Troponin I 0.13 H Clinical Impression(s) from Imaging Studies Chest X-Ray 11/03/17 15:25 IMPRESSION: Stable diffuse interstitial prominence suggesting edema or interstitial chronic process Electronically Signed: Jhoan Myers DO at 16:21 EDT Tel , Service support , Assessment/Plan This is a 77 years old female patient with complicated past cardiac history presented to the medicine because of chest pain and she was found to have borderline elevated troponin and she is being admitted for evaluation. #1 chest pain/borderline elevated troponin: In context of history of complicated cardiac history with multivessel disease, not a candidate for CABG. her EKG revealed normal sinus rhythm with ST segment depression and T-wave inversion in lateral chest leads and those changes are chronic, no acute ST elevation. Her troponin is 0.13. At this time, she does have chest pain which seemed to be atypical. She had cardiac catheterization on July, that revealed triple-vessel disease of the LAD, ostial circumflex and proximal diagonal branch which appeared to be moderate and improved compared to previous cardiac catheterization that was done on June, and at that time, medical therapy recommended. Also, patient mentioned that her pain goes to the epigastric region and across her upper abdomen associated with heartburn and reflux. Plan: Admit to PCU, cardiac monitoring, serial cardiac enzymes, Nitropaste, IV morphine as needed, lipid profile, lipase, continue aspirin, Plavix, beta blockers and nitrates and losartan, cardiology consult, repeat CBC and BMP tomorrow morning. #2 CAD status post multiple stents: As mentioned above, cardiac catheterization on July 2017 and revealed triple-vessel disease which appears to be moderate and improved compared to heart cath on June,. Plan as above, continue aspirin, statins, Plavix, beta blockers and losartan, cardiology consult. #3 hypertension: Blood pressure upon arrival to ER was elevated, maximum was 176 /76. Plan to continue Coreg, losartan, isosorbide mononitrate and start IV hydralazine as needed. #4 type 2 diabetes mellitus: ADA diet, Accu-Cheks, insulin sliding scale, continue home dosage of Levemir insulin and pre-meal NovoLog. #5 hypothyroidism: Continue levothyroxine. #6 hyperlipidemia: Continue statins. #7 chronic pancytopenia: Unclear etiology. She does have history of chronic anemia which is likely anemia of chronic disease. Her platelet count is chronically low as well as her total white blood cell count. No evidence of neutropenia. She is afebrile. #8 DVT prophylaxis: Subcu Lovenox. This note was generated with [employer] dictation software. It may contain incorrect words, spelling, and punctuation that were not noted in checking the note before signing. Code Visit Inpatient E&M: 23047 Init Hosp L3
[2017-11-03 17:40] LABS: AST(SGOT) 47 U/L (15-37); Alanine Aminotransfer ALT/SGPT 34 U/L (13-56); Albumin, Serum 3.6 g/dL (3.2-5.0); Alkaline Phosphatase 146 U/L (45-117); Bilirubin, Direct 0.23 mg/dL (0.00-0.30); Globulin 4.1 g/dL (2.2-4.2); Lipase 151 U/L (73-393); Protein, Total 7.7 g/dL (6.4-8.2)
[2017-11-03] MEDS: Nitroglycerin Oint 1 INCH PACKET TRANSDERM. (18:08)
[2017-11-03] MEDS: Furosemide 40 MG Tablet PO (18:09)
[2017-11-03 18:20] LABS: Bedside Glucose 240 mg/dL (70-110)
[2017-11-03] MEDS: Morphine 2 MG/ML Syringe 1 MG IV (20:37)
[2017-11-03] MEDS: 0.9% NaCl Peripheral Flush Adult/Peds IV (20:38)
[2017-11-03] MEDS: Carvedilol 12.5 MG Tablet PO (21:59)
[2017-11-03] MEDS: Pravastatin 80 MG Tablet PO (22:00)
[2017-11-03] MEDS: Zolpidem Tartrate 5 MG Tablet PO (22:00)
[2017-11-03] MEDS: Ranolazine 500 MG Tablet 1000 MG PO (22:00)
[2017-11-03] MEDS: Pantoprazole Sodium 40 MG Tablet PO (22:00)
[2017-11-03 22:51] LABS: Bedside Glucose 218 mg/dL (70-110)
[2017-11-04] VITALS (11 sets, daily range): BP systolic 110–128; BP diastolic 52–59; PULSE 57–69; RESP 14–18; TEMP 36.6–37.1; O2SAT 96–97
[2017-11-04] MEDS: Clopidogrel Bisulfate 300 MG Tablet PO (01:17)
[2017-11-04] MEDS: Levothyroxine 175 MCG Tablet PO (05:19)
--- NOTE | 2017-11-04 05:55 | EKG12_ITS ---
Test Reason : AM EKG Blood Pressure : / mmHG Vent. Rate : 060 BPM Atrial Rate : 060 BPM P-R Int : 186 ms QRS Dur : 090 ms QT Int : 480 ms P-R-T Axes : 046 -03 174 degrees QTc Int : 480 ms Normal sinus rhythm Left ventricular hypertrophy with repolarization abnormality Abnormal ECG When compared with ECG of 03-NOV-2017 15:11, MANUAL COMPARISON REQUIRED, DATA IS UNCONFIRMED Confirmed by SILVINA CHEW, NILSON ([id number]), desk editor THAD HOOKER ([id number]) on 11/06/2017 1:39:33 PM Referred By: ANGEL Confirmed By:NILSON COOL MD
[2017-11-04 07:01] LABS: Bedside Glucose 142 mg/dL (70-110)
[2017-11-04 07:05] LABS: Basophil# 0.01 X10^3/uL; Basophil% 0.4 % (0-1); Eosinophils% 4.3 % (0-5); Hematocrit 29.3 % (37-47); Hemoglobin 9.5 g/dl (12.0-15.0); Lymphocyte % 43.5 % (19-41); Mean Corp Hgb Conc 32.4 g/gl (32-36); Mean Corpuscular Hgb 30.3 pg (27.0-32.0); Mean Corpuscular Volume 93.3 fL (81-99); Mean Platelet Vol. 9.9 fl (6.2-12.0); Monocyte# 0.22 X10^3/uL; Monocyte% 9.6 % (0-10); Neutrophil # 0.97 X10^3/uL (2.7-7.7); Neutrophil % 42.2 % (47-70); Platelet Count 92 K/mm3 (150-450); RBC Distribution Width CV 13.7 % (11.6-14.6); RBC Distribution Width SD 46.5 fl (35.1-43.9); Red Blood Count 3.14 M/mm3 (4.2-5.4); White Blood Count 2.3 K/mm3 (4.4-11.0)
[2017-11-04 07:14] LABS: Differential Indicated SCAN CRITERIA MET; POSITIVE COUNT NO; POSITIVE DIFFERENTIAL YES; POSITIVE MORPHOLOGY NO
--- NOTE | 2017-11-04 07:49 | PCM.PROGNOTE ---
Subjective: Chief complaint: Follow-up after admission for chest pain with borderline elevated troponin, found to have acute non-ST elevation DC. Patient seen and examined. No acute events overnight. This morning, she reports that her chest pain is getting better. She denied shortness of breath at rest but she is not sure what would happen with ambulation. Denied dizziness or lightheadedness. Her vital signs are stable. - Physical Exam General: Alert, Oriented x3, Cooperative, No apparent distress HEENT: Atraumatic, PERRLA, EOMI Oral: Moist Mucosa, No Gingival or Mucosal Lesions/ Ulcerations Neck: Supple, No JVD, Negative Carotid Bruits, Trachea Midline, Thyroid Normal Size and Texture Lungs: Clear to auscultation, No rhonchi, No wheeze, No rales, Diminished Cardiovascular: Regular rate, Regular Rhythm, Normal S1, Normal S2, PMI Normal Abdomen: Bowel Sounds Present, Soft, Non Tender, Non-Distended, No Hepato-splenomegaly Extremities: No clubbing, No cyanosis, Edema Skin: No rashes, No breakdown Lymphatic: No Cervical, Supraclavicular, or Inguinal Adenopathy Neurological: Cranial nerves II-XII grossly intact, Neuro grossly intact Psych/Mental Status: Normal Affect, Appropriate, Alert and oriented to time, place, person, mood and affect Vital Signs Temp Pulse Resp BP Pulse Ox 98.8 F 59 L 14 113/52 L 97 11/04/17 03:52 11/04/17 06:49 11/04/17 03:52 11/04/17 03:52 11/04/17 03:52 Oxygen Flow Rate (L/min) 2 Oxygen Delivery Method Room Air Weight: 195 lb 12.328 oz Body Mass Index (BMI) 30.7 Intake and Output for Last 24 Hours 11/02/17 11/03/17 11/04/17 23:59 23:59 23:59 Intake Total 340 / 340 220 / 220 Balance 340 / 340 220 / 220 Laboratory Tests Past 24 Hrs 11/03/17 11/03/17 11/04/17 19:45 23:40 05:50 WBC 2.3 L RBC 3.14 L Hgb 9.5 L Hct 29.3 L MCV 93.3 MCH 30.3 MCHC 32.4 RDW 13.7 RDW Differential 46.5 H Plt Count 92 L MPV 9.9 Immature Gran % (Auto) 0.000 Neut % (Auto) 42.2 L Lymph % (Auto) 43.5 H [place] % (Auto) 9.6 Eos % (Auto) 4.3 Baso % (Auto) 0.4 Absolute Neuts (auto) 1.0 L Absolute Lymphs (auto) 1.00 Total Counted Not Reportable Sodium Potassium Chloride Carbon Dioxide Anion Gap BUN Creatinine Est GFR (MDRD) Af Amer Est GFR (MDRD) Non-Af BUN/Creatinine Ratio Glucose Calcium Troponin I 0.63 H* 2.54 H* 11/04/17 11/04/17 05:50 05:50 WBC RBC Hgb Hct MCV MCH MCHC RDW RDW Differential Plt Count MPV Immature Gran % (Auto) Neut % (Auto) Lymph % (Auto) [place] % (Auto) Eos % (Auto) Baso % (Auto) Absolute Neuts (auto) Absolute Lymphs (auto) Total Counted Sodium Pending Potassium Pending Chloride Pending Carbon Dioxide Pending Anion Gap Pending BUN Pending Creatinine Pending Est GFR (MDRD) Af Amer Pending Est GFR (MDRD) Non-Af Pending BUN/Creatinine Ratio Pending Glucose Pending Calcium Pending Troponin I Pending POC Glucose 11/04/17 11/03/17 11/03/17 06:42 21:54 18:08 POC Glucose 142 H 218 H 240 H Medical Necessity - Tobacco Use Smoking Status: Never smoker Assessment/Plan This is a 77 years old female patient with complicated past cardiac history presented to the medicine because of chest pain and she was found to have borderline elevated troponin and she is being admitted for evaluation. #1 Acute non-ST elevation DC: Troponin went up to 4.6. Repeat EKG from today revealed same ST segment depression and T-wave inversion in lateral chest leads which are as prominent and chronic, no acute ST elevation. Patient still complaining of chest pain but improved. Her vital signs are stable, blood pressure improved. Her LFT and lipase were unremarkable. She is on aspirin, Plavix, Coreg, statins, losartan, isosorbide mononitrate and Ranexa. Cardiology consulted, plan for cardiac catheterization tomorrow morning. #2 CAD status post multiple stents: Plan as above. Cardiac catheterization on July 2017 and revealed triple-vessel disease which appears to be moderate and improved compared to heart cath on June,. continue aspirin, statins, Plavix, beta blockers and losartan. #3 hypertension: Blood pressure stabilized. continue Coreg, losartan, isosorbide mononitrate and continue IV hydralazine as needed. #4 type 2 diabetes mellitus: Blood sugar stable, continue ADA diet, Accu-Cheks, insulin sliding scale, continue home dosage of Levemir insulin and pre-meal NovoLog. #5 hypothyroidism: Continue levothyroxine. #6 hyperlipidemia: Continue statins. #7 chronic pancytopenia: Unclear etiology. She does have history of chronic anemia which is likely anemia of chronic disease. Her platelet count is chronically low as well as her total white blood cell count. No evidence of neutropenia. She is afebrile. #8 DVT prophylaxis: Subcu Lovenox. This note was generated with [employer] dictation software. It may contain incorrect words, spelling, and punctuation that were not noted in checking the note before signing. Code Visit Inpatient E&M: 42352 Subs Hosp L3
[2017-11-04] MEDS: Aspirin 81 MG TAB.CHEW PO (08:08)
[2017-11-04] MEDS: Folic Acid 1 MG Tablet 0.5 MG PO (08:08)
[2017-11-04 08:13] LABS: Anion Gap 6 (5-15); BUN 16 mg/dL (7-18); BUN/Creat Ratio 33.3 RATIO (10-20); Calcium,Total 8.2 mg/dL (8.5-10.1); Chloride 108 mmol/L (98-107); Creatinine, Serum 0.48 mg/dL (0.55-1.02); EST Glomerular Filtration Rate 133 mL/min (>60); Est Glom Filt Rate - Afr Amer 161 mL/min (>60); Estimated Creatinine Clearance 45.09 ml/min; Glucose 135 mg/dL (74-106); Potassium 3.5 mmol/L (3.5-5.1); Sodium Level 144 mmol/L (136-145)
[2017-11-04 08:24] LABS: Differential Comment SCANNED
[2017-11-04] MEDS: Pantoprazole Sodium 40 MG Tablet PO ×2 (09:43→21:43)
[2017-11-04] MEDS: Clopidogrel Bisulfate 75 MG Tablet PO (09:44)
[2017-11-04] MEDS: Carvedilol 12.5 MG Tablet PO ×2 (09:44→21:42)
[2017-11-04] MEDS: Furosemide 40 MG Tablet PO ×2 (09:44→17:48)
[2017-11-04] MEDS: Losartan Potassium 50 MG Tablet PO (09:44)
[2017-11-04] MEDS: Isosorbide Mononitrate 60 MG Tablet PO (09:44)
[2017-11-04] MEDS: Enoxaparin 30 MG/0.3 ML Syringe SC (09:45)
[2017-11-04] MEDS: Ranolazine 500 MG Tablet 1000 MG PO ×2 (09:45→21:43)
--- NOTE | 2017-11-04 10:29 | CON.PCM_ITS ---
Reason for Consult Date of Consultation: 11/04/17 Reason for Consultation: Chest tightness. History of Present Illness: The patient is a 77 year old F with an extensive cardiac history who presented to the emergency room yesterday complaining of chest discomfort. She says that the chest discomfort had been going on for approximately 2 days and was not getting any better. She did have some EKG changes when she presented with approximately [address] depression noted in the lateral leads. You do remember that she does have a history of hypertension diabetes mellitus hyperlipidemia and severe coronary artery disease. She is status post previous angioplasty and rotablation of the left anterior descending artery in 2013. She had presented in 2013 with chest discomfort and underwent a cardiac catheterization which demonstrated a widely patent stent in the left anterior descending artery and significant proximal circumflex artery disease. The right coronary artery had moderate diffuse disease and medical therapy was recommended. In February 2015 she presented again with chest discomfort and underwent a repeat cardiac catheterization demonstrated similar disease and medical therapy was recommended. In February 2017 she presented again with chest discomfort repeat cardiac catheterization demonstrated a similar patent and medical therapy was once again recommended. In April 2017 she went to [facility] where she underwent balloon angioplasty with an angiosculpt of the ostium of the circumflex artery with a 2.75 noncompliant balloon angioplasty there was minimal dissection but no impediment of flow and medical therapy was pursued. She more recently in June 2017 presented with chest discomfort she underwent a cardiac catheterization which demonstrated a right coronary artery which was large dominant with mild diffuse disease a left main coronary artery []Mild calcification and a 40-50% stenosis. The left anterior descending artery had a previously placed stent which was patent the distal LAD was diffusely diseased up to 75% stenosis in the first diagonal branch had a proximal 75% stenosis. The ostial circumflex artery had an 85% stenosis. She was transferred to [facility] where she underwent repeat angioplasty to the circumflex artery distribution. There was a consideration as to whether she should have coronary artery bypass surgery but the patient apparently refused and she was not thought to be the greatest candidate because of poor distal targets. In July 2017 she presented again and underwent a cardiac catheterization which demonstrated diffuse disease in the right coronary artery, the left main coronary artery had mild disease the left anterior descending artery had distal diffuse disease with severe long stenosis but no good targets for revascularization. The ostium of the left circumflex artery had disease but the entire vessel appeared to be much better than previously noted and medical therapy was recommended. She has been apparently compliant with her medications. At this particular time she denies any chest pain. Her shortness of breath she says has improved. [] Past Medical History Allergies/Adverse Reactions: Allergies atorvastatin calcium [From Lipitor] Adverse Reaction (Verified 11/03/17 15:19) Unknown rosiglitazone maleate [From Avandia] Adverse Reaction (Verified 11/03/17 15:19) Other Home Medications: Ambulatory Orders Medication Instructions Recorded Aspirin [Aspirin, Baby] 81 mg PO DAILY@0800 06/30/17 Carvedilol [Coreg] 12.5 mg PO BID 06/30/17 Clopidogrel Bisulfate [Clopidogrel] 75 mg PO DAILY 06/30/17 Insulin Glargine,Hum.rec.anlog 30 unit SQ DAILY 06/30/17 [Toujeo Solostar] Insulin Regular, Human [Humulin R] 8 unit SQ TIDCM 06/30/17 Levothyroxine [Synthroid] 175 mcg PO DAILY 06/30/17 Losartan Potassium [Cozaar] 50 mg PO DAILY 06/30/17 Nitroglycerin [Nitrostat] 0.4 mg SL PRN PRN 06/30/17 Pravastatin [Pravachol] 80 mg PO DAILY 06/30/17 traMADol [Ultram] 50 mg PO BID PRN 07/02/17 Docusate Sodium [Colace] 200 mg PO BID PRN PRN capsule 07/31/17 furosemide 40 mg tablet 40 mg PO BID 3 Days #60 tab 10/02/17 potassium chloride ER 8 mEq 8 meq PO DAILY #90 tab 10/02/17 tablet,extended release isosorbide mononitrate ER 30 mg 60 mg PO DAILY #90 tab 10/16/17 tablet,extended release 24 hr ranolazine ER 1,000 mg 1,000 mg PO Q12H #180 tab 10/22/17 tablet,extended release,12 hr Ascorbic Acid [Vitamin C] 1,000 mg PO DAILY 11/03/17 Cholecalciferol (Vitamin D3) 5,000 unit PO DAILY 11/03/17 [Vitamin D3] Folic Acid 0.4 mg PO DAILY@0800 11/03/17 Multivitamin [Multiple Vitamins] 1 each PO DAILY 11/03/17 Past Medical History (Chronic Problems): Chronic Problems (Last Updated 10/02/17 @ 14:47 by Ginna Fitzgerald) Schizophrenia (Chronic) S/P PTCA (percutaneous transluminal coronary angioplasty) (Chronic) History of coronary artery stent placement (Chronic) Atherosclerotic heart disease [place] coronary artery w/angina pectoris (Chronic) Pancytopenia (Chronic) Cognitive changes (Chronic) Hypertension (Chronic) Hypothyroidism (Chronic) Hyperlipidemia (Chronic) Diabetes mellitus, type II (Chronic) Venous insufficiency (Chronic) CHF (congestive heart failure) (Chronic) NSTEMI (non-ST elevated myocardial infarction) (Chronic) Intermittent claudication (Chronic) Tricuspid valve insufficiency (Chronic) Mitral valve insufficiency (Chronic) Obesity (BMI 30.0-34.9) (Chronic) Surgical History: angioplasty, appendectomy, cholecystectomy, tonsillectomy, - - Spinal fusion Psychiatric History: No pertinent psych hx 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 Denies: Fever, Night Sweats Cardiovascular: Reports: Chest Discomfort, Chest Discomfort at Rest, Chest Discomfort with Exertion. Denies: Shortness of Breath, Orthopnea, PND, Peripheral Edema, Palpitations, Lightheadedness, Dizziness, Near Syncope, Syncope Respiratory: Denies: Cough, Sputum Production, Hemoptysis Gastrointestinal: Denies: Hematemesis, Hematochezia, Melena Genitourinary: Denies: Dysuria, Hematuria Skin: Denies: Rash Subjectve: Pleasant lady in no apparent distress Objective: Vital Signs Temp Pulse Resp BP Pulse Ox 97.8 F 60 18 117/54 L 97 11/04/17 09:49 11/04/17 09:49 11/04/17 09:49 11/04/17 09:49 11/04/17 09:49 Oxygen Flow Rate (L/min) 2 Oxygen Delivery Method Room Air Weight: 195 lb 12.328 oz Body Mass Index (BMI) 30.7 Intake and Output for Last 24 Hours 11/02/17 11/03/17 11/04/17 23:59 23:59 23:59 Intake Total 340 / 340 220 / 220 Balance 340 / 340 220 / 220 General: Awake, Alert, Oriented x 3 HEENT: PERRL, EOMI, Sclera Non Icteric Neck: Supple, Good ROM, No Lymph Node Enlargement Lungs: Clear to auscultation Cardiovascular: Regular Rhythm, Normal S1, Normal S2, No Murmurs, No Rubs, No Gallops Vascular: No Carotid Bruits, Normal Femoral Pulses, Normal Radial Pulses, Normal Dorsalis Pedal Pulse, Normal Posterior Tibial Pulses Abdomen: Bowel Sounds Present, Soft, Non Tender, No HSM, No Organomegaly Extremities: No Cyanosis, No Clubbing, No edema Neurological: No Focal Motor or Sensory Deficit 11/03/17 19:45: Troponin I 0.63 H* 11/03/17 23:40: Troponin I 2.54 H* 11/04/17 05:50: WBC 2.3 L, RBC 3.14 L, Hgb 9.5 L, Hct 29.3 L, MCV 93.3, MCH 30.3 , MCHC 32.4, RDW 13.7, RDW Differential 46.5 H, Plt Count 92 L, MPV 9.9, Immature Gran % (Auto) 0.000, Neut % (Auto) 42.2 L, Lymph % (Auto) 43.5 H, [place] % (Auto) 9.6, Eos % (Auto) 4.3, Baso % (Auto) 0.4, Absolute Neuts (auto) 1.0 L, Total Counted Not Reportable 11/04/17 05:50: Sodium 144, Potassium 3.5, Chloride 108 H, Carbon Dioxide 30.0, Anion Gap 6, BUN 16, Creatinine 0.48 L, Est GFR (MDRD) Af Amer 161, Est GFR ( MDRD) Non-Af 133, BUN/Creatinine Ratio 33.3 H, Glucose 135 H, Calcium 8.2 L 11/04/17 05:50: Troponin I 4.60 H* Rhythm: EKG: Sinus rhythm with ST depression noted laterally; EKG from this morning demonstrates sinus rhythm with less ST depression laterally ECHO: Reduced global left ventricular systolic dysfunction estimated at 25% with segmental wall motion abnormalities involving the apex with apical akinesis present Stress Test: Cardiac Cath: See HPI Assessment/Plan 1. Non-ST elevation myocardial infarction. She presents once again with a non-ST elevation myocardial infarction barely 3 months after her previous catheterization. Her coronary anatomy is as described above in the history of presenting illness. Unfortunately we may have to relook at her coronary anatomy to see whether there is any vessel that can be revascularized. She certainly is high risk and chances at that she would need to be transferred to a tertiary care facility if she needs any interventional work done. I will suggest continuing her beta-radha aspirin clopidogrel and add Ranexa. She has had a drop in hemoglobin the etiology of which is not clear at this time. 2. Hypertension-benign Her blood pressure appears to be under good control on the current medical therapy. The plan will be to continue her current medical therapy without making any changes. 3. Risk factor modification. She will continue with aggressive risk factor modification.
[2017-11-04 11:41] LABS: Bedside Glucose 249 mg/dL (70-110)
--- NOTE | 2017-11-04 13:58 | CASEMGMT ---
See attached RN CM assessment. Met face to face with patient earlier today. States she is currently working on living will and DPOA for healthcare. States she has 2 case maker: Andie Sanders and Alexis Hinojosa from [facility]. Denies anticipating any additional needs upon returning home. Marnie Daniels RN, CCM.
--- NOTE | 2017-11-04 14:04 | CASEMGMT ---
Insurance review for possible cardiac intervention. According to [facility] mycare provider directory the following hospitals (among others) are in-network: [facility] For any questions, contact Case management.
[2017-11-04 14:33] LABS: Bacteria 0 SEEN /hpf (None Seen); Mucous, Urine 0 SEEN /hpf (<or=2+); Red Blood Cells-Urine 0 SEEN /hpf (0-5); Squamous Epithelial Cells - UA 0 SEEN /hpf (5-10)
[2017-11-04 14:41] LABS: Color, Urine Yellow (Yellow); Glucose, Dipstick Normal (Normal); Ketone-Dipstick Negative (Negative); Leukocyte Esterase-Dipstick 25 /ul (Negative); Nitrite-Dipstick Negative (Negative); Occult Blood-Urine Negative /ul (Negative); Protein-Dipstick Negative (Negative); Urine Bilirubin Dipstick Negative (Negative); Urine Clarity Clear (Clear); Urine Urobilinogen 1 mg/dl (Normal)
[2017-11-04 15:15] LABS: Hyaline Cast 0-5 SEEN /lpf (0-5); White Blood Cells 0-5 SEEN /hpf (0-5)
[2017-11-04 16:45] LABS: Bedside Glucose 169 mg/dL (70-110)
[2017-11-04] MEDS: Morphine 2 MG/ML Syringe 1 MG IV (19:56)
[2017-11-04] MEDS: 0.9% NaCl Peripheral Flush Adult/Peds IV (19:57)
[2017-11-04] MEDS: Pravastatin 80 MG Tablet PO (21:42)
[2017-11-04] MEDS: Zolpidem Tartrate 5 MG Tablet PO (21:47)
[2017-11-04 22:30] LABS: Bedside Glucose 71 mg/dL (70-110)
[2017-11-05] VITALS (14 sets, daily range): BP systolic 109–135; BP diastolic 40–72; PULSE 58–67; RESP 14–16; TEMP 36.6–36.9; O2SAT 95–98
[2017-11-05 05:41] LABS: Absolute Lymphocyte Count 1.11 X10^3/ul (0.83-4.51); Absolute Neutrophil Count 0.9 X10^3/uL (2.0-7.7); Eosinophil# 0.12 X10^3/uL; Eosinophils% 5.3 % (0-5); Hematocrit 27.5 % (37-47); Lymphocyte # 1.11 X10^3/ul (4.0); Lymphocyte % 49.3 % (19-41); Mean Corp Hgb Conc 32.7 g/gl (32-36); Mean Corpuscular Hgb 30.3 pg (27.0-32.0); Mean Corpuscular Volume 92.6 fL (81-99); Mean Platelet Vol. 9.4 fl (6.2-12.0); Monocyte# 0.14 X10^3/uL; Monocyte% 6.2 % (0-10); Neutrophil # 0.88 X10^3/uL (2.7-7.7); Neutrophil % 39.2 % (47-70); Platelet Count 84 K/mm3 (150-450); RBC Distribution Width CV 13.7 % (11.6-14.6); RBC Distribution Width SD 46.9 fl (35.1-43.9); Red Blood Count 2.97 M/mm3 (4.2-5.4); White Blood Count 2.3 K/mm3 (4.4-11.0)
[2017-11-05 05:43] LABS: BUN 17 mg/dL (7-18); Creatinine, Serum 0.66 mg/dL (0.55-1.02); Estimated Creatinine Clearance 45.09 ml/min; Glucose 95 mg/dL (74-106)
[2017-11-05 05:44] LABS: Anion Gap 7 (5-15); BUN/Creat Ratio 25.8 RATIO (10-20); Calcium,Total 8.2 mg/dL (8.5-10.1); Chloride 104 mmol/L (98-107); EST Glomerular Filtration Rate 92 mL/min (>60); Est Glom Filt Rate - Afr Amer 111 mL/min (>60); Potassium 3.3 mmol/L (3.5-5.1); Sodium Level 142 mmol/L (136-145)
[2017-11-05] MEDS: Clopidogrel Bisulfate 75 MG Tablet PO (05:50)
[2017-11-05] MEDS: Levothyroxine 175 MCG Tablet PO (05:50)
[2017-11-05] MEDS: 0.9% Normal Saline 1,000 ML 15 ML IV (05:50)
[2017-11-05] MEDS: Isosorbide Mononitrate 60 MG Tablet PO (05:51)
[2017-11-05] MEDS: Carvedilol 12.5 MG Tablet PO (05:52)
[2017-11-05] MEDS: Ranolazine 500 MG Tablet 1000 MG PO (05:52)
[2017-11-05] MEDS: Losartan Potassium 50 MG Tablet PO (05:53)
[2017-11-05 05:55] LABS: Partial Thromboplast Time 31.5 Seconds (24.1-36.2)
--- NOTE | 2017-11-05 05:55 | EKG12_ITS ---
Test Reason : AM EKG Blood Pressure : / mmHG Vent. Rate : 061 BPM Atrial Rate : 061 BPM P-R Int : 176 ms QRS Dur : 092 ms QT Int : 488 ms P-R-T Axes : 055 000 172 degrees QTc Int : 491 ms Normal sinus rhythm ST & T wave abnormality, consider anterolateral ischemia Prolonged QT Abnormal ECG When compared with ECG of 04-NOV-2017 04:57, MANUAL COMPARISON REQUIRED, DATA IS UNCONFIRMED Confirmed by SILVINA CHEW, NILSON ([id number]), managing editor THAD HOOKER ([id number]) on 11/06/2017 1:31:59 PM Referred By: ANGEL Confirmed By:NILSON COOL MD
[2017-11-05] MEDS: Aspirin 81 MG TAB.CHEW PO (05:58)
[2017-11-05 06:11] LABS: International Normalized Ratio 1.3; Prothrombin Time (Protime)PT. 15.7 SECONDS (11.7-14.9)
[2017-11-05 06:21] LABS: Differential Indicated SCAN CRITERIA MET; POSITIVE COUNT NO; POSITIVE DIFFERENTIAL YES; POSITIVE MORPHOLOGY NO
[2017-11-05 06:54] LABS: Differential Comment SCANNED
[2017-11-05 07:01] LABS: Bedside Glucose 84 mg/dL (70-110)
--- NOTE | 2017-11-05 07:40 | PCM.PROGNOTE ---
Subjective: Chief complaint: Follow-up after admission for acute non-STEMI. Patient seen and examined. No acute events overnight. Chest pain improved but still there, minimal. Her vital signs are stable - Physical Exam General: Alert, Oriented x3, Cooperative, No apparent distress HEENT: Atraumatic, PERRLA, EOMI Oral: Moist Mucosa, No Gingival or Mucosal Lesions/ Ulcerations Neck: Supple, No JVD, Negative Carotid Bruits, Trachea Midline, Thyroid Normal Size and Texture Lungs: Clear to auscultation, No rhonchi, No wheeze, No rales, Diminished Cardiovascular: Regular rate, Regular Rhythm, Normal S1, Normal S2, PMI Normal Abdomen: Bowel Sounds Present, Soft, Non Tender, Non-Distended, No Hepato-splenomegaly Extremities: No clubbing, No cyanosis, Edema - Trace edema. Skin: No rashes, No breakdown Lymphatic: No Cervical, Supraclavicular, or Inguinal Adenopathy Neurological: Cranial nerves II-XII grossly intact, Neuro grossly intact Psych/Mental Status: Normal Affect, Appropriate Vital Signs Temp Pulse Resp BP Pulse Ox 98.3 F 60 14 119/64 96 11/05/17 06:41 11/05/17 07:10 11/05/17 06:41 11/05/17 06:41 11/05/17 06:41 Oxygen Flow Rate (L/min) 2 Oxygen Delivery Method Room Air Weight: 195 lb 12.328 oz Body Mass Index (BMI) 30.7 Intake and Output for Last 24 Hours 11/03/17 11/04/17 11/05/17 23:59 23:59 23:59 Intake Total 340 / 340 900 / 900 120 / 120 Balance 340 / 340 900 / 900 120 / 120 Laboratory Tests Past 24 Hrs 11/04/17 11/04/17 11/04/17 05:50 05:50 05:50 WBC RBC Hgb Hct MCV MCH MCHC RDW RDW Differential Plt Count MPV Immature Gran % (Auto) Neut % (Auto) Lymph % (Auto) [place] % (Auto) Eos % (Auto) Baso % (Auto) Absolute Neuts (auto) Absolute Lymphs (auto) Total Counted Differential Comment SCANNED PT INR APTT Sodium 144 Potassium 3.5 Chloride 108 H Carbon Dioxide 30.0 Anion Gap 6 BUN 16 Creatinine 0.48 L Estim Creat Clear Calc 45.09 Est GFR (MDRD) Af Amer 161 Est GFR (MDRD) Non-Af 133 BUN/Creatinine Ratio 33.3 H Glucose 135 H Calcium 8.2 L Troponin I 4.60 H* Urine Color Urine Clarity Urine pH Ur Specific [place] Urine Protein Urine Glucose (UA) Urine Ketones Urine Occult Blood Urine Nitrite Urine Bilirubin Urine Urobilinogen Ur Leukocyte Esterase Urine RBC Urine WBC Ur Squamous Epith Cells Urine Bacteria Hyaline Casts Urine Mucus 11/04/17 11/05/17 11/05/17 14:25 05:15 05:15 WBC 2.3 L RBC 2.97 L Hgb 9.0 L Hct 27.5 L MCV 92.6 MCH 30.3 MCHC 32.7 RDW 13.7 RDW Differential 46.9 H Plt Count 84 L MPV 9.4 Immature Gran % (Auto) 0.000 Neut % (Auto) 39.2 L Lymph % (Auto) 49.3 H [place] % (Auto) 6.2 Eos % (Auto) 5.3 H Baso % (Auto) 0.0 Absolute Neuts (auto) 0.9 L Absolute Lymphs (auto) 1.11 Total Counted Not Reportable Differential Comment SCANNED PT 15.7 H INR 1.3 APTT 31.5 Sodium Potassium Chloride Carbon Dioxide Anion Gap BUN Creatinine Estim Creat Clear Calc Est GFR (MDRD) Af Amer Est GFR (MDRD) Non-Af BUN/Creatinine Ratio Glucose Calcium Troponin I Urine Color Yellow Urine Clarity Clear Urine pH 6.0 Ur Specific [place] 1.020 Urine Protein Negative Urine Glucose (UA) Normal Urine Ketones Negative Urine Occult Blood Negative Urine Nitrite Negative Urine Bilirubin Negative Urine Urobilinogen 1 H Ur Leukocyte Esterase 25 H Urine RBC 0 SEEN Urine WBC 0-5 SEEN Ur Squamous Epith Cells 0 SEEN Urine Bacteria 0 SEEN Hyaline Casts 0-5 SEEN Urine Mucus 0 SEEN 11/05/17 05:15 WBC RBC Hgb Hct MCV MCH MCHC RDW RDW Differential Plt Count MPV Immature Gran % (Auto) Neut % (Auto) Lymph % (Auto) [place] % (Auto) Eos % (Auto) Baso % (Auto) Absolute Neuts (auto) Absolute Lymphs (auto) Total Counted Differential Comment PT INR APTT Sodium 142 Potassium 3.3 L Chloride 104 Carbon Dioxide 31.0 Anion Gap 7 BUN 17 Creatinine 0.66 Estim Creat Clear Calc 45.09 Est GFR (MDRD) Af Amer 111 Est GFR (MDRD) Non-Af 92 BUN/Creatinine Ratio 25.8 H Glucose 95 Calcium 8.2 L Troponin I Urine Color Urine Clarity Urine pH Ur Specific [place] Urine Protein Urine Glucose (UA) Urine Ketones Urine Occult Blood Urine Nitrite Urine Bilirubin Urine Urobilinogen Ur Leukocyte Esterase Urine RBC Urine WBC Ur Squamous Epith Cells Urine Bacteria Hyaline Casts Urine Mucus POC Glucose 11/05/17 11/04/17 11/04/17 06:44 21:39 16:43 POC Glucose 84 71 169 H 11/04/17 11:27 POC Glucose 249 H Medical Necessity - Tobacco Use Smoking Status: Never smoker Assessment/Plan This is a 77 years old female patient with complicated past cardiac history presented to the medicine because of chest pain and she was found to have borderline elevated troponin and she is being admitted for evaluation. #1 Acute non-ST elevation PA: She is on aspirin, Plavix, nitrates, coronary and losartan as well as statins. Chest pain has improved. Vital signs are stable troponin went up to 4.6. Repeat EKG from today revealed same ST segment depression and T-wave inversion in lateral chest leads which are as prominent and chronic, no acute ST elevation. Plan for cardiac catheterization today. #2 CAD status post multiple stents: Plan as above. Cardiac catheterization on July 2017 and revealed triple-vessel disease which appears to be moderate and improved compared to heart cath on June,. continue aspirin, statins, Plavix, beta blockers and losartan. #3 hypertension: Blood pressure stable. continue Coreg, losartan, isosorbide mononitrate and continue IV hydralazine as needed. #4 type 2 diabetes mellitus: Blood sugar stable, continue ADA diet, Accu-Cheks, insulin sliding scale, continue home dosage of Levemir insulin and pre-meal NovoLog. #5 hypothyroidism: Continue levothyroxine. #6 hyperlipidemia: Continue statins. #7 chronic pancytopenia: Unclear etiology. According to the patient, she was diagnosed with nonalcoholic liver cirrhosis and she has been told that this was the reason for her low platelet count. She does have history of chronic anemia which is likely anemia of chronic disease. Her platelet count is chronically low as well as her total white blood cell count. No evidence of neutropenia. She is afebrile. #8 DVT prophylaxis: Subcu Lovenox. This note was generated with Dragon dictation software. It may contain incorrect words, spelling, and punctuation that were not noted in checking the note before signing.
--- NOTE | 2017-11-05 07:56 | NURSING ---
nOTIFIED monotype machinist, REPORT GIVEN TO RAKEL.
--- NOTE | 2017-11-05 09:05 | CASEMGMT ---
Addendum entered by Karina Simmons 11/05/17 11:02: SUAD called Helena Hinojosa and let her know that patient is going to be transferred to [facility]. Karina GUTHRIE Original Note: SUAD called [facility] and let Gage Chapin on the coverage line know that patient is in the hospital. Her Blow Down Operator is Helena Hinojosa ([phone]). She has [facility] and [employer] for home health aides. [facility] also does some skilled care. [facility] does 6 hrs a week of aides and [facility] does 10 hrs a week. She has a emergency response button and she gets 7 [employer] a week. SUAD reviewed PT/OT and she did really well. Plan: Home with resumption of [employer] services. Karina SERRATO CLERICAL ASSOCIATE
--- NOTE | 2017-11-05 09:15 | PCM.PN.CARD ---
Subjectve: Patient seen and evaluated and underwent cardiac catheterization today. Objective: Vital Signs Temp Pulse Resp BP Pulse Ox 98.3 F 60 14 119/64 96 11/05/17 06:41 11/05/17 07:10 11/05/17 06:41 11/05/17 06:41 11/05/17 07:45 Oxygen Flow Rate (L/min) 2 Oxygen Delivery Method Room Air Weight: 195 lb 12.328 oz Body Mass Index (BMI) 30.7 Intake and Output for Last 24 Hours 11/03/17 11/04/17 11/05/17 23:59 23:59 23:59 Intake Total 340 / 340 900 / 900 120 / 120 Balance 340 / 340 900 / 900 120 / 120 General: Awake, Alert, Oriented x 3 HEENT: PERRL, EOMI, Sclera Non Icteric Neck: Supple, Good ROM, No Lymph Node Enlargement Lungs: Clear to auscultation Cardiovascular: Regular Rhythm, Normal S1, Normal S2, No Murmurs, No Rubs, No Gallops Vascular: No Carotid Bruits, Normal Femoral Pulses, Normal Radial Pulses, Normal Dorsalis Pedal Pulse, Normal Posterior Tibial Pulses Abdomen: Bowel Sounds Present, Soft, Non Tender, No HSM, No Organomegaly Extremities: No Cyanosis, No Clubbing, No edema Neurological: No Focal Motor or Sensory Deficit 11/04/17 14:25: Urine Color Yellow, Urine Clarity Clear, Urine pH 6.0, Ur Specific [place] 1.020, Urine Protein Negative, Urine Glucose (UA) Normal, Urine Ketones Negative, Urine Occult Blood Negative, Urine Nitrite Negative, Urine Bilirubin Negative, Urine Urobilinogen 1 H, Ur Leukocyte Esterase 25 H, Urine RBC 0 SEEN, Urine WBC 0-5 SEEN 11/05/17 05:15: WBC 2.3 L, RBC 2.97 L, Hgb 9.0 L, Hct 27.5 L, MCV 92.6, MCH 30.3, MCHC 32.7, RDW 13.7, RDW Differential 46.9 H, Plt Count 84 L, MPV 9.4, Immature Gran % (Auto) 0.000, Neut % (Auto) 39.2 L, Lymph % (Auto) 49.3 H, [place] % (Auto) 6.2, Eos % (Auto) 5.3 H, Baso % (Auto) 0.0, Absolute Neuts (auto) 0.9 L, Total Counted Not Reportable 11/05/17 05:15: PT 15.7 H, INR 1.3, APTT 31.5 11/05/17 05:15: Sodium 142, Potassium 3.3 L, Chloride 104, Carbon Dioxide 31.0, Anion Gap 7, BUN 17, Creatinine 0.66, Est GFR (MDRD) Af Amer 111, Est GFR (MDRD) Non-Af 92, BUN/Creatinine Ratio 25.8 H, Glucose 95, Calcium 8.2 L Rhythm: EKG: ECHO: Stress Test: Cardiac Cath: PCI: CT Surgery: Holter monitor: EPS: PPM: CXR: Chest CT Scan: Medical Necessity - Tobacco Use Smoking Status: Never smoker Assessment/Plan 1. Non-ST elevation myocardial infarction. She presents once again with a non-ST elevation myocardial infarction barely 3 months after her previous catheterization. Her coronary anatomy is as described above in the history of presenting illness. She underwent a cardiac catheterization which demonstrated the following: Left main coronary artery with mild disease. Left anterior descending artery previously stented and patent proximally and mid with severe distal disease. Ostial 95% circumflex artery stenosis and a diffusely diseased vessel. First obtuse marginal branch with ostial stenosis. Second obtuse marginal branch with diffuse disease. Dominant right coronary artery with diffuse disease. Preserved ejection fraction. I discussed the above with his previous interventional list at [facility] and he does not think that there is anything else he can offer. I will make an attempt at contacting the [facility] to see whether they may be willing to perform an angioplasty to the circumflex artery. 2. Hypertension-benign Her blood pressure appears to be under good control on the current medical therapy. The plan will be to continue her current medical therapy without making any changes. 3. Risk factor modification. She will continue with aggressive risk factor modification. Thank you for allowing me to participate in the care of your patient. Please don't hesitate to call if any issues arise
--- NOTE | 2017-11-05 09:18 | PN.CARD_ITS ---
Subjectve: Patient seen and evaluated and underwent cardiac catheterization today. Objective: Vital Signs Temp Pulse Resp BP Pulse Ox 98.3 F 60 14 119/64 96 11/05/17 06:41 11/05/17 07:10 11/05/17 06:41 11/05/17 06:41 11/05/17 07:45 Oxygen Flow Rate (L/min) 2 Oxygen Delivery Method Room Air Weight: 195 lb 12.328 oz Body Mass Index (BMI) 30.7 Intake and Output for Last 24 Hours 11/03/17 11/04/17 11/05/17 23:59 23:59 23:59 Intake Total 340 / 340 900 / 900 120 / 120 Balance 340 / 340 900 / 900 120 / 120 General: Awake, Alert, Oriented x 3 HEENT: PERRL, EOMI, Sclera Non Icteric Neck: Supple, Good ROM, No Lymph Node Enlargement Lungs: Clear to auscultation Cardiovascular: Regular Rhythm, Normal S1, Normal S2, No Murmurs, No Rubs, No Gallops Vascular: No Carotid Bruits, Normal Femoral Pulses, Normal Radial Pulses, Normal Dorsalis Pedal Pulse, Normal Posterior Tibial Pulses Abdomen: Bowel Sounds Present, Soft, Non Tender, No HSM, No Organomegaly Extremities: No Cyanosis, No Clubbing, No edema Neurological: No Focal Motor or Sensory Deficit 11/04/17 14:25: Urine Color Yellow, Urine Clarity Clear, Urine pH 6.0, Ur Specific [place] 1.020, Urine Protein Negative, Urine Glucose (UA) Normal, Urine Ketones Negative, Urine Occult Blood Negative, Urine Nitrite Negative, Urine Bilirubin Negative, Urine Urobilinogen 1 H, Ur Leukocyte Esterase 25 H, Urine RBC 0 SEEN, Urine WBC 0-5 SEEN 11/05/17 05:15: WBC 2.3 L, RBC 2.97 L, Hgb 9.0 L, Hct 27.5 L, MCV 92.6, MCH 30.3 , MCHC 32.7, RDW 13.7, RDW Differential 46.9 H, Plt Count 84 L, MPV 9.4, Immature Gran % (Auto) 0.000, Neut % (Auto) 39.2 L, Lymph % (Auto) 49.3 H, Clinch % (Auto) 6.2, Eos % (Auto) 5.3 H, Baso % (Auto) 0.0, Absolute Neuts (auto) 0.9 L , Total Counted Not Reportable 11/05/17 05:15: PT 15.7 H, INR 1.3, APTT 31.5 11/05/17 05:15: Sodium 142, Potassium 3.3 L, Chloride 104, Carbon Dioxide 31.0, Anion Gap 7, BUN 17, Creatinine 0.66, Est GFR (MDRD) Af Amer 111, Est GFR (MDRD ) Non-Af 92, BUN/Creatinine Ratio 25.8 H, Glucose 95, Calcium 8.2 L Rhythm: EKG: ECHO: Stress Test: Cardiac Cath: PCI: CT Surgery: Holter monitor: EPS: PPM: CXR: Chest CT Scan: Medical Necessity - Tobacco Use Smoking Status: Never smoker Assessment/Plan 1. Non-ST elevation myocardial infarction. She presents once again with a non-ST elevation myocardial infarction barely 3 months after her previous catheterization. Her coronary anatomy is as described above in the history of presenting illness. She underwent a cardiac catheterization which demonstrated the following: Left main coronary artery with mild disease. Left anterior descending artery previously stented and patent proximally and mid with severe distal disease. Ostial 95% circumflex artery stenosis and a diffusely diseased vessel. First obtuse marginal branch with ostial stenosis. Second obtuse marginal branch with diffuse disease. Dominant right coronary artery with diffuse disease. Preserved ejection fraction. I discussed the above with his previous interventional list at [facility] and he does not think that there is anything else he can offer. I will make an attempt at contacting the [facility] to see whether they may be willing to perform an angioplasty to the circumflex artery. 2. Hypertension-benign Her blood pressure appears to be under good control on the current medical therapy. The plan will be to continue her current medical therapy without making any changes. 3. Risk factor modification. She will continue with aggressive risk factor modification. Thank you for allowing me to participate in the care of your patient. Please don't hesitate to call if any issues arise
--- NOTE | 2017-11-05 09:26 | CASEMGMT ---
According to [facility] website, the following are in-network tertiary facilities: [facility], [place], [facility], [place], [facility], [facility], [facility], [place], and . Rolando TREVINO CM
--- NOTE | 2017-11-05 09:34 | CL.D_ITS ---
Patient Name: DANI JOHNSON Study Date: 11/05/2017 Performing: Floyd Foster MD Ht: 67 inches 170 cm : 1940 Wt: 196.5 lbs 89 kg Age: 77 Gender: female BSA: 2 PROCEDURE(S) PERFORMED [id number] CLINICAL PROFILE AND INDICATIONS INDICATIONS: Unstable Angina, ACS <= 24 hrs, Acute Coronary Syndrome, Non-Q MD HEART FAILURE: None Stress/Imaging Stress/Image Study Performed: No CAD Presentations: Non-STEMI. Symptom onset Date/Time: 11/03/2017 Time Not Available CONCLUSIONS Severe [place] vessel disease involving the proximal/ostial circumflex artery, Severe disease involvin g the distal left anterior descending artery with patent proximal LAD stents and diffuse right otero ry artery stenosis RECOMMENDATIONS Referred for immediate PCI DESCRIPTION OF PROCEDURE The patient arrived to the procedure lab. The risks and benefits of the procedure as well as a full d escription of our services here and current unavailability of surgical backup were fully explained to the patient and/or their significant other prior to the catheterization. The Timeout was completed, verifying the correct patient and procedure. The patient's procedural site was prepped and draped in the usual fashion. Local anesthetic was given subcutaneously to right radial region with Lidocaine 2% . Using a modified Seldinger technique, arterial access was obtained via the right radial artery, a 6 Fr sheath was inserted. Left Coronary Artery selective angiography was performed in multiple views u sing a 5 Fr. 4.0 Center catheter. Right Coronary Artery selective angiography was then performed in mu ltiple views using a 5 Fr. 4.0 Center catheter. Left Ventriculography was performed in CEE projection using a 5 Fr. Pigtail catheter. LV to AO pullback pressures were then recorded.The arterial sheath wa s pulled and a TR Band was applied for hemostasis CORONARY ANGIOGRAPHY DOMINANCE: Right Dominant LEFT HEART ASSESSMENT Left Ventricular Ejection Fraction: by LV Gram 60 % Normal LV wall motion LEFT MAIN: Non-obstructive LEFT ANTERIOR DECENDING ARTERY: PROX LAD: Mild luminal irregularities less than 30%, Previously placed stent has an instent 30 % rest enosis MID LAD: Moderate luminal irregularities up to 50% DISTAL LAD: Severe diffuse disease with small distal targets CIRCUMFLEX ARTERY: OSTIAL CIRC: 95 % Stenosis OM 1: Proximal - Diffusely diseased up to 60 % OM 2: Ostial - Diffusely diseased up to 70 % RIGHT CORONARY ARTERY: Mild luminal irregularities less than 30% COMPLICATIONS No Complications PROCEDURE MEDICATIONS Versed 1 mg IV Fentanyl 25 mcg IV Oxygen: 2 L/min via nasal cannula Heparin diluted in 23cc Heparinized saline. Patient given 10cc IA of this solution. 11/05/2017 08:47:0 9 Verapamil 2.5mg, Ntg 100mcgs, 2000 units of Heparin diluted in 23cc Heparinized saline. Patient give n 10cc IA of this solution. 11/05/2017 08:47:09 SUMMARY OF HEMODYNAMIC DATA Time AIR REST ECG 08:27:34 AO 105/38 (62) SA 08:51:10 LV 130/9, 24 09:00:37 LV 129/9, 23 09:01:09 LV 127/9, 22 09:02:28 LVp 132/15, 35 09:02:37 AOp 125/44 (73) 09:02:42 Signed By Floyd Foster MD On 11/05/2017 9:33:57 AM Floyd Foster MD
[2017-11-05] MEDS: Folic Acid 1 MG Tablet 0.5 MG PO (10:21)
[2017-11-05] MEDS: Pantoprazole Sodium 40 MG Tablet PO (10:22)
[2017-11-05] MEDS: Furosemide 40 MG Tablet PO (10:22)
[2017-11-05 12:01] LABS: Bedside Glucose 129 mg/dL (70-110)
--- NOTE | 2017-11-05 13:53 | PCM.DC.SUM ---
Discharge Date and Diagnosis Date of Admission: 11/03/17 Date of Discharge: 11/05/17 - Primary Discharge Diagnosis #1 acute non-ST elevation [place]. #2 severe jena vessel disease of the proximal/ostial circumflex artery, severe disease of the distal left anterior descending artery with patent proximal LAD stent and diffuse right coronary artery stenosis. 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) Pancytopenia (Chronic) Cognitive changes (Chronic) Hypertension (Chronic) Hypothyroidism (Chronic) Hyperlipidemia (Chronic) Diabetes mellitus, type II (Chronic) Venous insufficiency (Chronic) CHF (congestive heart failure) (Chronic) NSTEMI (non-ST elevated myocardial infarction) (Chronic) Intermittent claudication (Chronic) Tricuspid valve insufficiency (Chronic) Mitral valve insufficiency (Chronic) Obesity (BMI 30.0-34.9) (Chronic) Hospital Course and Treatment Imaging Results: Clinical Impression(s) from Imaging Studies Chest X-Ray 11/03/17 15:25 IMPRESSION: Stable diffuse interstitial prominence suggesting edema or interstitial chronic process Electronically Signed: Jhoan Myers DO at 16:21 EDT Tel , Service support , Dr. Foster, cardiology. Operations: None Procedures: Cardiac catheterization, EKG Summary of Care Provided: The patient is a 77 year old F admitted because of chest pain with shortness of breath and she was found to have acute non-ST elevation [place]. This patient has history of complicated cardiac disease and she had cardiac catheterization back in July, that revealed triple-vessel disease which appeared to be moderate and improved compared to the cardiac catheterization that was done on June,. At that time, decision was made to treat the patient medically. During this admission, she was found to have acute non-ST elevation [place]. Her troponin was up to 4.6. His EKG revealed ST segment depression and T-wave inversion in lateral chest leads which are chronic changes. There was no evidence of acute ST elevation. She was treated with aspirin, Plavix, statins, beta blockers, nitrates and CAROL inhibitors as well as Ranexa. Cardiology consulted and patient underwent cardiac catheterization that revealed severe jena vessel disease of the proximal/ostial circumflex artery, severe disease of the distal left anterior descending artery with patent proximal LAD stents and diffuse RCA stenosis. Cardiology recommended to transfer patient to a tertiary care center for immediate PCI. Dr. Foster made the arrangements for the patient to be transferred to [facility] for PCI. Patient was transferred to [facility] in a stable medical condition. Home Medications: Medications to take at Discharge Aspirin [Aspirin, Baby] 81 mg PO DAILY@0800 06/30/17 Carvedilol [Coreg] 12.5 mg PO BID 06/30/17 Clopidogrel Bisulfate [Clopidogrel] 75 mg PO DAILY 06/30/17 Insulin Glargine,Hum.rec.anlog [Toujeo Solostar] 30 unit SQ DAILY 06/30/17 Insulin Regular, Human [Humulin R] 8 unit SQ TIDCM 06/30/17 Levothyroxine [Synthroid] 175 mcg PO DAILY 06/30/17 Losartan Potassium [Cozaar] 50 mg PO DAILY 06/30/17 Nitroglycerin [Nitrostat] 0.4 mg SL PRN PRN 06/30/17 Pravastatin [Pravachol] 80 mg PO DAILY 06/30/17 traMADol [Ultram] 50 mg PO BID PRN 07/02/17 Docusate Sodium [Colace] 200 mg PO BID PRN PRN capsule 07/31/17 furosemide 40 mg tablet 40 mg PO BID 3 Days #60 tab 10/02/17 potassium chloride ER 8 mEq tablet,extended release 8 meq PO DAILY #90 tab 10/02/17 isosorbide mononitrate ER 30 mg tablet,extended release 24 hr 60 mg PO DAILY #90 tab 10/16/17 ranolazine ER 1,000 mg tablet,extended release,12 hr 1,000 mg PO Q12H #180 tab 10/22/17 Ascorbic Acid [Vitamin C] 1,000 mg PO DAILY 11/03/17 Cholecalciferol (Vitamin D3) [Vitamin D3] 5,000 unit PO DAILY 11/03/17 Folic Acid 0.4 mg PO DAILY@0800 11/03/17 Multivitamin [Multiple Vitamins] 1 each PO DAILY 11/03/17 Primary Care Physician: Diana Cohen MD [Primary Care Provider] - Disposition: Acute care Hospital Minutes spent on discharge:: 32 Patient Condition:: Stable Medical Necessity - Tobacco Use Smoking Status: Never smoker Meaningful Use Info Meaningful Use Diagnoses (Choose all that apply): None applicable Code Visit Inpatient E&M: 86158 Disch Hosp
--- NOTE | 2017-11-05 13:59 | DS.PCM_ITS ---
Discharge Date and Diagnosis Date of Admission: 11/03/17 Date of Discharge: 11/05/17 - Primary Discharge Diagnosis #1 acute non-ST elevation [place]. #2 severe [place] vessel disease of the proximal/ostial circumflex artery, severe disease of the distal left anterior descending artery with patent proximal LAD stent and diffuse right coronary artery stenosis. - Secondary Discharge Diagnosis Chronic Problems (Last Updated 10/02/17 @ 14:47 by Ginna Fitzgerald) Schizophrenia (Chronic) S/P PTCA (percutaneous transluminal coronary angioplasty) (Chronic) History of coronary artery stent placement (Chronic) Atherosclerotic heart disease [place] coronary artery w/angina pectoris (Chronic) Pancytopenia (Chronic) Cognitive changes (Chronic) Hypertension (Chronic) Hypothyroidism (Chronic) Hyperlipidemia (Chronic) Diabetes mellitus, type II (Chronic) Venous insufficiency (Chronic) CHF (congestive heart failure) (Chronic) NSTEMI (non-ST elevated myocardial infarction) (Chronic) Intermittent claudication (Chronic) Tricuspid valve insufficiency (Chronic) Mitral valve insufficiency (Chronic) Obesity (BMI 30.0-34.9) (Chronic) Hospital Course and Treatment Imaging Results: Clinical Impression(s) from Imaging Studies Chest X-Ray 11/03/17 15:25 IMPRESSION: Stable diffuse interstitial prominence suggesting edema or interstitial chronic process Electronically Signed: Jhoan Myers DO at 16:21 EDT Tel , Service support , Dr. Foster, cardiology. Operations: None Procedures: Cardiac catheterization, EKG Summary of Care Provided: The patient is a 77 year old F admitted because of chest pain with shortness of breath and she was found to have acute non-ST elevation [place]. This patient has history of complicated cardiac disease and she had cardiac catheterization back in July, that revealed triple-vessel disease which appeared to be moderate and improved compared to the cardiac catheterization that was done on June,. At that time, decision was made to treat the patient medically. During this admission, she was found to have acute non-ST elevation [place]. Her troponin was up to 4.6. His EKG revealed ST segment depression and T- wave inversion in lateral chest leads which are chronic changes. There was no evidence of acute ST elevation. She was treated with aspirin, Plavix, statins, beta blockers, nitrates and CAROL inhibitors as well as Ranexa. Cardiology consulted and patient underwent cardiac catheterization that revealed severe [place] vessel disease of the proximal/ostial circumflex artery, severe disease of the distal left anterior descending artery with patent proximal LAD stents and diffuse RCA stenosis. Cardiology recommended to transfer patient to a tertiary care center for immediate PCI. Dr. Foster made the arrangements for the patient to be transferred to [facility] for PCI. Patient was transferred to [facility] in a stable medical condition. Home Medications: Medications to take at Discharge Aspirin [Aspirin, Baby] 81 mg PO DAILY@0800 06/30/17 Carvedilol [Coreg] 12.5 mg PO BID 06/30/17 Clopidogrel Bisulfate [Clopidogrel] 75 mg PO DAILY 06/30/17 Insulin Glargine,Hum.rec.anlog [Toujeo Solostar] 30 unit SQ DAILY 06/30/17 Insulin Regular, Human [Humulin R] 8 unit SQ TIDCM 06/30/17 Levothyroxine [Synthroid] 175 mcg PO DAILY 06/30/17 Losartan Potassium [Cozaar] 50 mg PO DAILY 06/30/17 Nitroglycerin [Nitrostat] 0.4 mg SL PRN PRN 06/30/17 Pravastatin [Pravachol] 80 mg PO DAILY 06/30/17 traMADol [Ultram] 50 mg PO BID PRN 07/02/17 Docusate Sodium [Colace] 200 mg PO BID PRN PRN capsule 07/31/17 furosemide 40 mg tablet 40 mg PO BID 3 Days #60 tab 10/02/17 potassium chloride ER 8 mEq tablet,extended release 8 meq PO DAILY #90 tab 10/02 isosorbide mononitrate ER 30 mg tablet,extended release 24 hr 60 mg PO DAILY # 90 tab 10/16/17 ranolazine ER 1,000 mg tablet,extended release,12 hr 1,000 mg PO Q12H #180 tab 10/22/17 Ascorbic Acid [Vitamin C] 1,000 mg PO DAILY 11/03/17 Cholecalciferol (Vitamin D3) [Vitamin D3] 5,000 unit PO DAILY 11/03/17 Folic Acid 0.4 mg PO DAILY@0800 11/03/17 Multivitamin [Multiple Vitamins] 1 each PO DAILY 11/03/17 Primary Care Physician: Diana Cohen MD [Primary Care Provider] - Disposition: Acute care Hospital Minutes spent on discharge:: 32 Patient Condition:: Stable Medical Necessity - Tobacco Use Smoking Status: Never smoker Meaningful Use Info Meaningful Use Diagnoses (Choose all that apply): None applicable Code Visit Inpatient E&M: 64546 Disch Hosp
== END 2017-11-05 13:44 | disposition short-term general hospital (02) | DRG 281 ==
LOC: ED 15:41 → PCU 17:07
PROVIDERS: Emergency Medicine; Internal Medicine Cardiovascular Disease; Admitting Provider Hospitalist; Emergency Provider Emergency Medicine; Family Provider Internal Medicine; PCP Internal Medicine; Visit Provider Hospitalist
DX: I21.4 Non-ST elevation (NSTEMI) myocardial infarction (principal); D61.818 Other pancytopenia; I11.0 Hypertensive heart disease with heart failure; I50.9 Heart failure, unspecified; F20.9 Schizophrenia, unspecified; E03.9 Hypothyroidism, unspecified; E11.9 Type 2 diabetes mellitus without complications; D63.8 Anemia in other chronic diseases classified elsewhere; I25.110 Atherosclerotic heart disease of native coronary artery with unstable angina pectoris; I25.2 Old myocardial infarction; R41.89 Other symptoms and signs involving cognitive functions and awareness; E78.5 Hyperlipidemia, unspecified; I87.2 Venous insufficiency (chronic) (peripheral); E66.9 Obesity, unspecified; K74.60 Unspecified cirrhosis of liver; Z68.30 Body mass index [BMI] 30.0-30.9, adult; Z79.82 Long term (current) use of aspirin; Z79.899 Other long term (current) drug therapy; Z79.01 Long term (current) use of anticoagulants; Z79.4 Long term (current) use of insulin; Z95.5 Presence of coronary angioplasty implant and graft; Z98.1 Arthrodesis status
CPT/HCPCS: 36415; 71045; 80048; 80076; 81001; 82962; 83690; 84484; 85025; 85610; 85730; 87086; 87088; 93005; 93458; 97161; 97165; 99152; 99153; 99285; J3010; J7030; Q9967; A4216; C1769; C1894

== ENCOUNTER 2018-02-01 22:56 | Inpatient (IN) | payer MEDICARE, MEDICAID, SELFPAY ==
[2018-02-01 22:57] VITALS: BP 176/84; PULSE 93; RESP 24; TEMP 36.8; O2SAT 94; BMI 33.7
--- NOTE | 2018-02-01 23:12 | EKG12_ITS ---
Test Reason : CP Blood Pressure : / mmHG Vent. Rate : 092 BPM Atrial Rate : 092 BPM P-R Int : 138 ms QRS Dur : 094 ms QT Int : 362 ms P-R-T Axes : 085 000 127 degrees QTc Int : 447 ms Normal sinus rhythm Marked ST abnormality, possible inferior subendocardial injury Marked ST abnormality, possible anterolateral subendocardial injury Abnormal ECG Confirmed by SILVINA CHEW, NILSON ([id number]), assignment editor THAD HOOKER ([id number]) on 02/07/2018 3:34:34 PM Referred By: DR QUINTEROS Confirmed By:NILSON COOL MD
[2018-02-01 23:20] VITALS: PULSE 90; RESP 12; RESP 22; O2SAT 97
[2018-02-01 23:25] VITALS: O2SAT 99
--- NOTE | 2018-02-01 23:30 | RAD_ITS ---
STUDY: X-RAY CHEST REASON FOR EXAM: Female, 77 years old. Chest pain TECHNIQUE: A single frontal view of the chest was obtained. COMPARISON: November 03, 2017 FINDINGS: The lungs are underaerated. There are increased interstitial markings throughout the lungs. There are no focal airspace opacities. There is no demonstrated pleural abnormality. The cardiac silhouette is normal in size. The mediastinum and hilar regions are unremarkable. Normal visualized pulmonary arteries. There is atherosclerotic calcification of the thoracic aorta. There are diffuse degenerative changes of the visualized spine. There are degenerative changes in both shoulders. There is no demonstrated abnormality of the visualized upper abdomen. RAD/Chest 1 View (Portable) IMPRESSION: No acute cardiopulmonary abnormalities. Diffuse coarse interstitial opacities likely represent fibrosis. Electronically Signed: Aziza Holland MD at 0:22 EDT Tel Direct: [phone], Service support ,
[2018-02-01 23:31] LABS: Absolute Lymphocyte Count 1.05 X10^3/ul (0.83-4.51); Absolute Neutrophil Count 1.9 X10^3/uL (2.0-7.7); Basophil# 0.02 X10^3/uL; Basophil% 0.6 % (0-1); Eosinophils% 3.1 % (0-5); Hemoglobin 10.5 g/dl (12.0-15.0); Lymphocyte # 1.05 X10^3/ul (4.0); Lymphocyte % 32.5 % (19-41); Mean Corp Hgb Conc 32.8 g/gl (32-36); Mean Corpuscular Hgb 30.4 pg (27.0-32.0); Mean Corpuscular Volume 92.8 fL (81-99); Monocyte# 0.17 X10^3/uL; Monocyte% 5.3 % (0-10); Neutrophil # 1.89 X10^3/uL (2.7-7.7); Neutrophil % 58.5 % (47-70); Platelet Count 138 K/mm3 (150-450); RBC Distribution Width CV 13.9 % (11.6-14.6); RBC Distribution Width SD 46.2 fl (35.1-43.9); Red Blood Count 3.45 M/mm3 (4.2-5.4); White Blood Count 3.2 K/mm3 (4.4-11.0)
[2018-02-01 23:32] LABS: POSITIVE COUNT NO; POSITIVE DIFFERENTIAL NO; POSITIVE MORPHOLOGY NO
[2018-02-01 23:45] VITALS: BP 147/62; PULSE 72; RESP 16; O2SAT 100
[2018-02-01 23:54] LABS: Anion Gap 8 (5-15); BUN 18 mg/dL (7-18); BUN/Creat Ratio 19.5 RATIO (10-20); Calcium,Total 8.6 mg/dL (8.5-10.1); Chloride 107 mmol/L (98-107); Creatinine, Serum 0.92 mg/dL (0.55-1.02); EST Glomerular Filtration Rate 62 mL/min (>60); Est Glom Filt Rate - Afr Amer 75 mL/min (>60); Estimated Creatinine Clearance 49.01 ml/min; Glucose 319 mg/dL (74-106); Sodium Level 142 mmol/L (136-145)
[2018-02-02] VITALS (17 sets, daily range): BP systolic 122–167; BP diastolic 53–83; PULSE 53–87; RESP 12–18; TEMP 36.4–36.9; O2SAT 97–100; BMI 30.9
[2018-02-02] LABS: BNP,B-Type NATRIURETIC PEPTIDE 141.9 pg/mL (0-100)
--- NOTE | 2018-02-02 01:12 | PCM.HP.STD ---
Problem List (1) Chest pain Status: Acute Qualifiers: Chest pain type: precordial pain Qualified Code(s): R07.2 - Precordial pain History of Present Illness Date of Admission: 02/02/18 Chief Complaint: Chest pain The patient is a 77 year old F who was seen in the emergency room at [facility] with a chief complaint of precordial chest pain which she described as sharp in nature, nonradiating, started at rest, chest pain started at 7 PM tonight, she took 4 nitros at home without relief and was given 1 nitro in the squad. Patient also complained of dyspnea but was nonspecific about the dyspnea. Patient has a long history of coronary artery disease and has multivessel coronary artery disease, patient had a stent put in her circumflex ostial artery in November of this year at [facility]. It has been recommended in 2016 that the patient undergo bypass surgery but according to the ER physician who talked with Dr. Foster early this morning, patient refused bypass surgery. Evaluation in the emergency room included labs which revealed an elevated troponin 0.213, glucose was 319, white blood cell count was 3.2, hemoglobin was 10.5. Patient's beta natruretic peptide was 141, chest x-ray revealed evidence of pulmonary fibrosis but no evidence of congestive heart failure or pneumonia. Patient had an EKG performed that showed a normal sinus rhythm at [address]-T wave depressions and aVL, aVF, and leads V4 through V6. This was compared to an EKG which had been done in October 2017 before she had her stent placement at [facility] and was very similar to this EKG. Dr. Foster was aware of this according to the emergency room physician. Dr. Foster was contacted by the emergency room physician and he recommended admission with cycling of cardiac enzymes. Patient will be admitted to PCU for non-STEMI. Past Medical History Past Medical History (Chronic Problems): Chronic Problems (Last Updated 11/19/17 @ 11:02 by Ginna Fitzgerald) Non-rheumatic aortic stenosis (Chronic) History of coronary artery stent placement (Chronic) PTCA-ostail/prox LCx @ [facility] 11/09/2017 PTCA-Cutting Balloon Atherectomy w/ placement of 2.5 x 20 mm Synergy Stent, Distal LM-into the Ostium of LAD Stented w/ 4.0 x 16 mm Synergy Stent 06/2017[facility] 04/2017 PCI-LAD with a 2.75x38 Promus Premier drug eluting stent. 12/15/13 RAYMON of Right Posterior Lateral (Mid) wIth 3.0 x 2.8 Cypher, followed upstream with 3.0 x 8 Cypher, RAYMON of Right PDA (Ostial) with 25 x 28 Cypher 09/17/2007 Chronic systolic (congestive) heart failure (Chronic) Schizophrenia (Chronic) S/P PTCA (percutaneous transluminal coronary angioplasty) (Chronic ~11/09/17) PTCA-ostail/prox LCx @ [facility] 11/09/2017 PTCA-Cutting Balloon Atherectomy w/ placement of 2.5 x 20 mm Synergy Stent, Distal LM-into the Ostium of LAD Stented w/ 4.0 x 16 mm Synergy Stent 06/2017[facility] 04/2017 PCI-LAD with a 2.75x38 Promus Premier drug eluting stent. 12/15/13 RAYMON of Right Posterior Lateral (Mid) wIth 3.0 x 2.8 Cypher, followed upstream with 3.0 x 8 Cypher, RAYMON of Right PDA (Ostial) with 25 x 28 Cypher 09/17/2007 History of coronary artery stent placement (Chronic) Atherosclerotic heart disease [place] coronary artery w/angina pectoris (Chronic) PTCA-ostail/prox LCx @ [facility] 11/09/2017 PTCA-Cutting Balloon Atherectomy w/ placement of 2.5 x 20 mm Synergy Stent, Distal LM-into the Ostium of LAD Stented w/ 4.0 x 16 mm Synergy Stent 06/2017[facility]- 04/2017 PCI-LAD with a 2.75x38 Promus Premier drug eluting stent. 12/15/13 RAYMON of Right Posterior Lateral (Mid) wIth 3.0 x 2.8 Cypher, followed upstream with 3.0 x 8 Cypher, RAYMON of Right PDA (Ostial) with 25 x 28 Cypher 09/17/2007 Pancytopenia (Chronic) Hypertension (Chronic) Hypothyroidism (Chronic) Hyperlipidemia (Chronic) Diabetes mellitus, type II (Chronic) Venous insufficiency (Chronic) CHF (congestive heart failure) (Chronic) NSTEMI (non-ST elevated myocardial infarction) (Chronic ~09/16/17) Intermittent claudication (Chronic) Tricuspid valve insufficiency (Chronic) Mitral valve insufficiency (Chronic) Obesity (BMI 30.0-34.9) (Chronic) Medical History: Medical History (Last Updated 11/19/17 @ 11:02 by Ginna Fitzgerald) Non-rheumatic aortic stenosis (Chronic) I35.0 Chronic systolic (congestive) heart failure (Chronic) I50.22 Schizophrenia (Chronic) F20.9 History of coronary artery stent placement (Chronic) Z95.5 Atherosclerotic heart disease [place] coronary artery w/angina pectoris (Chronic) I25.119 PTCA-ostail/prox LCx @ [facility] 11/09/2017 PTCA-Cutting Balloon Atherectomy w/ placement of 2.5 x 20 mm Synergy Stent, Distal LM-into the Ostium of LAD Stented w/ 4.0 x 16 mm Synergy Stent 06/2017[facility] 04/2017 PCI-LAD with a 2.75x38 Promus Premier drug eluting stent. 12/15/13 RAYMON of Right Posterior Lateral (Mid) wIth 3.0 x 2.8 Cypher, followed upstream with 3.0 x 8 Cypher, RAYMON of Right PDA (Ostial) with 25 x 28 Cypher 09/17/2007 Pancytopenia (Chronic) D61.818 Hypertension (Chronic) I10 Hypothyroidism (Chronic) E03.9 Hyperlipidemia (Chronic) E78.5 Diabetes mellitus, type II (Chronic) E11.9 Venous insufficiency (Chronic) CHF (congestive heart failure) (Chronic) I50.9 NSTEMI (non-ST elevated myocardial infarction) (Chronic) Onset Date: ~09/16/17 I21.4 Intermittent claudication (Chronic) I73.9 Tricuspid valve insufficiency (Chronic) I07.1 Mitral valve insufficiency (Chronic) I34.0 Obesity (BMI 30.0-34.9) (Chronic) E66.9 Anemia D64.[address] Joyce 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) K75.81, K74.60 Allergies atorvastatin calcium [From Lipitor] Adverse Reaction (Verified 11/30/17 10:22) Unknown rosiglitazone maleate [From Avandia] Adverse Reaction (Verified 11/30/17 10:22) Other Home Medications: Ambulatory Orders Medication Instructions Recorded Aspirin [Aspirin, Baby] 81 mg PO DAILY@0800 06/30/17 Carvedilol [Coreg] 12.5 mg PO BIDCM 06/30/17 Clopidogrel Bisulfate [Clopidogrel] 75 mg PO DAILY 06/30/17 Insulin Glargine,Hum.rec.anlog 30 unit SQ DAILY 06/30/17 [Toujeo Solostar] Insulin Regular, Human [Humulin R] 8 unit SQ TIDCM 06/30/17 Losartan Potassium [Cozaar] 50 mg PO DAILY 06/30/17 Nitroglycerin [Nitrostat] 0.4 mg SL PRN PRN 06/30/17 Pravastatin [Pravachol] 80 mg PO DAILY 06/30/17 potassium chloride ER 8 mEq 8 meq PO DAILY #90 tab 10/02/17 tablet,extended release Ascorbic Acid [Vitamin C] 1,000 mg PO DAILY 11/03/17 Cholecalciferol (Vitamin D3) 5,000 unit PO DAILY 11/03/17 [Vitamin D3] Folic Acid 0.4 mg PO DAILY@0800 11/03/17 Multivitamin [Multiple Vitamins] 1 tablet PO DAILY 11/03/17 furosemide 40 mg tablet 40 mg PO BID tab 11/19/17 olanzapine 5 mg tablet 5 mg PO QHS tab 11/19/17 ranolazine ER 1,000 mg 1,000 mg PO Q12H tab 11/30/17 tablet,extended release,12 hr Isosorbide Mononitrate [Isosorbide 60 mg PO BID 02/01/18 Mononitrate ER] Levothyroxine Sodium [Synthroid] 125 mcg PO DAILY 02/01/18 Multivitamins,Therapeutic 1 tablet PO DAILY 02/01/18 [Multivitamin] Albuterol Inhaler [Ventolin Hfa 2 puff INHALATION PRN PRN 02/02/18 (SP)] Surgical History: Surgical History (Last Reviewed 11/30/17 @ 10:22 by Leydi Potts) History of coronary artery stent placement (Chronic) Z95.5 PTCA-ostail/prox LCx @ [facility] 11/09/2017 PTCA-Cutting Balloon Atherectomy w/ placement of 2.5 x 20 mm Synergy Stent, Distal LM-into the Ostium of LAD Stented w/ 4.0 x 16 mm Synergy Stent 06/2017[facility] 04/2017 PCI-LAD with a 2.75x38 Promus Premier drug eluting stent. 12/15/13 RAYMON of Right Posterior Lateral (Mid) wIth 3.0 x 2.8 Cypher, followed upstream with 3.0 x 8 Cypher, RAYMON of Right PDA (Ostial) with 25 x 28 Cypher 09/17/2007 S/P PTCA (percutaneous transluminal coronary angioplasty) (Chronic) Onset Date: ~11/09/17 Z98.61 PTCA-ostail/prox LCx @ [facility] 11/09/2017 PTCA-Cutting Balloon Atherectomy w/ placement of 2.5 x 20 mm Synergy Stent, Distal LM-into the Ostium of LAD Stented w/ 4.0 x 16 mm Synergy Stent 06/2017[facility] 04/2017 PCI-LAD with a 2.75x38 Promus Premier drug eluting stent. 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: No pertinent CLINICAL TRIALS ASSISTANT history Lives: Alone Smoking Status: Never smoker Tobacco Use: Non-smoker Alcohol: None Drugs: None - *Family History Maternal Family History: Family History (Last Reviewed 11/30/17 @ 10:22 by Leydi Potts) Mother CAD (coronary artery disease) Father CAD (coronary artery disease) History Items: No pertinent history Paternal Family History: Family History (Last Reviewed 11/30/17 @ 10:22 by Leydi Potts) Mother CAD (coronary artery disease) Father CAD (coronary artery disease) History Items: No pertinent history Review of Systems Constitutional: Denies: Anorexia, Chills, Fever, Night Sweats, Malaise, Weakness, Weight Change, Fatigue Eyes: Denies: Blurred vision, Cataracts, Conjunctivae Inflammation, Double vision, Drainage, Eyelid Inflammation HEENT: Denies: Difficulty Hearing, Difficulty Swallowing, Dysphasia, Ear Pain, Head Aches, Hearing Changes, Nasal bleeding, Nasal Congestion Cardiovascular: Reports: Chest Pain. Denies: Claudication, Chest Pressure, Chest Tightness, Edema, Heaviness, Light Headedness, Palpitations, Syncope Respiratory: Reports: Shortness of Breath, Shortness of breath at rest. Denies: Cough, Hemoptysis, Pleuritic Pain, Shortness of breath upon exertion, Sputum production, Wheezing Gastrointestinal: Denies: Abdominal Pain, Constipation, Diarrhea, Hematemesis, Hematochezia, Nausea, Melena, Vomiting Genitourinary: Denies: Dysuria, Frequency, Hematuria, Hesitancy, Incontinence, Nocturia, Urgency Gynecological: Denies: Breast symptoms Musculoskeletal: Denies: Foot Pain, Hand Pain, Joint Pain, Joint stiffness, Joint swelling, Joint Tenderness, Leg Pain Skin: Denies: Dryness, Pruritis, Rash Neurological: Denies: Blurred vision, Double vision, Slurred speech, Difficulty swallowing, Focal weakness, Headaches, Incoordination, Numbness, Tingling Psychiatric: Denies: Anxiety, Depression, Homicidal Ideations, Suicidal Ideations Endocrine: Denies: Change in Body Habitus, Heat/ Cold Intolerance, Polydipsia, Polyuria Hematologic/ Lymphatic: Denies: Adenopathy, Anemia, Easy Bruising, Easy Bleeding, Petechiae, Purpura VTE Information - Inpt Only VTE Present on Admission: No VTE Mechan Device Prophylaxis: None VTE Pharm Prophylaxis ordered?: Yes Patient Problems: Active and Suspected Problems (Last Updated 11/19/17 @ 11:02 by Ginna Fitzgerald) Chest pain (Acute) - Physical Exam General: Alert, Oriented x3, Cooperative, No apparent distress, Well developed, Well nourished HEENT: Atraumatic, PERRLA, EOMI, Normocephalic Oral: Moist Mucosa Neck: Supple, No JVD, Negative Carotid Bruits, No Nuchal Rigidity, Trachea Midline, Thyroid Normal Size and Texture Lungs: Normal air movement, Rales - Inspiratory rales are noted over the lower lung clemente bilaterally Cardiovascular: Regular rate, Regular Rhythm, Normal S1, Normal S2, No murmurs, No Ectopic Activity, PMI Normal, No rub noted, No Gallop Abdomen: Bowel Sounds Present, Soft, Non Tender, Non-Distended, No hernias noted Extremities: No clubbing, No cyanosis, No edema, Capillary Refill Less than 3 Seconds Skin: No rashes, No breakdown Musculoskeletal: No Tenderness to Palpation of Joints or Extremities Neurological: Cranial nerves II-XII grossly intact, Neuro grossly intact, Sensory exam intact to light touch and pain, Coordination normal Psych/Mental Status: Normal Affect, Appropriate, Alert and oriented to time, place, person, mood and affect Vital Signs Temp Pulse Resp BP Pulse Ox 98.2 F 64 13 142/75 H 99 02/01/18 22:57 02/02/18 00:55 02/02/18 00:55 02/02/18 00:55 02/02/18 00:55 Oxygen Delivery Method Bi-pap Weight: 97.6 kg Body Mass Index (BMI) 33.7 Finger Stick Blood Glucose 270 Laboratory Tests Past 24 Hrs 02/01/18 02/01/18 02/01/18 23:20 23:20 23:20 WBC 3.2 L RBC 3.45 L Hgb 10.5 L Hct 32.0 L MCV 92.8 MCH 30.4 MCHC 32.8 RDW 13.9 RDW Differential 46.2 H Plt Count 138 L MPV 10.0 Immature Gran % (Auto) 0.000 Neut % (Auto) 58.5 Lymph % (Auto) 32.5 [place] % (Auto) 5.3 Eos % (Auto) 3.1 Baso % (Auto) 0.6 Absolute Neuts (auto) 1.9 L Absolute Lymphs (auto) 1.05 Total Counted Not Reportable Sodium 142 Potassium 4.0 Chloride 107 Carbon Dioxide 27.0 Anion Gap 8 BUN 18 Creatinine 0.92 Estim Creat Clear Calc 49.01 Est GFR (MDRD) Af Amer 75 Est GFR (MDRD) Non-Af 62 BUN/Creatinine Ratio 19.5 Glucose 319 H Calcium 8.6 Troponin I 0.213 H B-Natriuretic Peptide 141.9 H Assessment/Plan All Active Problems (Last Updated 11/19/17 @ 11:02 by Ginna Fitzgerald) Chest pain (Acute) Cognitive changes (Resolved) NSTEMI (non-ST elevated myocardial infarction) (Resolved) Unstable angina (Resolved) #1 [id number] will be admitted to PCU, she will be seen in consultation by cardiology, cardiac enzymes will be cycled, she will be medicated for chest pain as needed. Patient's current medications will be continued. #2 dyspnea-etiology unclear, patient's pulse ox on room air is 94%, continue to monitor O2 sat #3 schizophrenia #4 type 2 diabetes-blood sugars will be monitored and she will be given sliding scale insulin per protocol #5 Chronic anemia-etiology unclear, iron studies were ordered #6 Chronic leukopenia-etiology unclear #7 pulmonary fibrosis Code Visit Inpatient E&M: 43309 Init Hosp L3
--- NOTE | 2018-02-02 01:22 | HP.PCM_ITS ---
Problem List (1) Chest pain Status: Acute Qualifiers: Chest pain type: precordial pain Qualified Code(s): R07.2 - Precordial pain History of Present Illness Date of Admission: 02/02/18 Chief Complaint: Chest pain The patient is a 77 year old F who was seen in the emergency room at [facility] with a chief complaint of precordial chest pain which she described as sharp in nature, nonradiating, started at rest, chest pain started at 7 PM tonight, she took 4 nitros at home without relief and was given 1 nitro in the squad. Patient also complained of dyspnea but was nonspecific about the dyspnea. Patient has a long history of coronary artery disease and has multivessel coronary artery disease, patient had a stent put in her circumflex ostial artery in November of this year at [facility]. It has been recommended in 2016 that the patient undergo bypass surgery but according to the ER physician who talked with Dr. Foster early this morning, patient refused bypass surgery. Evaluation in the emergency room included labs which revealed an elevated troponin 0.213, glucose was 319, white blood cell count was 3.2, hemoglobin was 10.5. Patient's beta natruretic peptide was 141, chest x-ray revealed evidence of pulmonary fibrosis but no evidence of congestive heart failure or pneumonia. Patient had an EKG performed that showed a normal sinus rhythm at [address]-T wave depressions and aVL, aVF, and leads V4 through V6. This was compared to an EKG which had been done in October 2017 before she had her stent placement at [facility] and was very similar to this EKG. Dr. Foster was aware of this according to the emergency room physician. Dr. Foster was contacted by the emergency room physician and he recommended admission with cycling of cardiac enzymes. Patient will be admitted to PCU for non-STEMI. Past Medical History Past Medical History (Chronic Problems): Chronic Problems (Last Updated 11/19/17 @ 11:02 by Ginna Fitzgerald) Non-rheumatic aortic stenosis (Chronic) History of coronary artery stent placement (Chronic) PTCA-ostail/prox LCx @ [facility] 11/09/2017 PTCA-Cutting Balloon Atherectomy w/ placement of 2.5 x 20 mm Synergy Stent, Distal LM-into the Ostium of LAD Stented w/ 4.0 x 16 mm Synergy Stent 2016[facility] 04/2017 PCI-LAD with a 2.75x38 Promus Premier drug eluting stent. 12/15/13 RAYMON of Right Posterior Lateral (Mid) wIth 3.0 x 2.8 Cypher, followed upstream with 3.0 x 8 Cypher, RAYMON of Right PDA (Ostial) with 25 x 28 Cypher 09/17/2007 Chronic systolic (congestive) heart failure (Chronic) Schizophrenia (Chronic) S/P PTCA (percutaneous transluminal coronary angioplasty) (Chronic ~11/09/17) PTCA-ostail/prox LCx @ [facility] 11/09/2017 PTCA-Cutting Balloon Atherectomy w/ placement of 2.5 x 20 mm Synergy Stent, Distal LM-into the Ostium of LAD Stented w/ 4.0 x 16 mm Synergy Stent 2016[facility] 04/2017 PCI-LAD with a 2.75x38 Promus Premier drug eluting stent. 12/15/13 RAYMON of Right Posterior Lateral (Mid) wIth 3.0 x 2.8 Cypher, followed upstream with 3.0 x 8 Cypher, RAYMON of Right PDA (Ostial) with 25 x 28 Cypher 09/17/2007 History of coronary artery stent placement (Chronic) Atherosclerotic heart disease [place] coronary artery w/angina pectoris (Chronic) PTCA-ostail/prox LCx @ [facility] 11/09/2017 PTCA-Cutting Balloon Atherectomy w/ placement of 2.5 x 20 mm Synergy Stent, Distal LM-into the Ostium of LAD Stented w/ 4.0 x 16 mm Synergy Stent 2016[facility]- 04/2017 PCI-LAD with a 2.75x38 Promus Premier drug eluting stent. 12/15/13 RAYMON of Right Posterior Lateral (Mid) wIth 3.0 x 2.8 Cypher, followed upstream with 3.0 x 8 Cypher, RAYMON of Right PDA (Ostial) with 25 x 28 Cypher 09/17/2007 Pancytopenia (Chronic) Hypertension (Chronic) Hypothyroidism (Chronic) Hyperlipidemia (Chronic) Diabetes mellitus, type II (Chronic) Venous insufficiency (Chronic) CHF (congestive heart failure) (Chronic) NSTEMI (non-ST elevated myocardial infarction) (Chronic ~09/16/17) Intermittent claudication (Chronic) Tricuspid valve insufficiency (Chronic) Mitral valve insufficiency (Chronic) Obesity (BMI 30.0-34.9) (Chronic) Medical History: Medical History (Last Updated 11/19/17 @ 11:02 by Ginna Fitzegrald) Non-rheumatic aortic stenosis (Chronic) I35.0 Chronic systolic (congestive) heart failure (Chronic) I50.22 Schizophrenia (Chronic) F20.9 History of coronary artery stent placement (Chronic) Z95.5 Atherosclerotic heart disease [place] coronary artery w/angina pectoris (Chronic ) I25.119 PTCA-ostail/prox LCx @ [facility] 11/09/2017 PTCA-Cutting Balloon Atherectomy w/ placement of 2.5 x 20 mm Synergy Stent, Distal LM-into the Ostium of LAD Stented w/ 4.0 x 16 mm Synergy Stent 2016[facility] 04/2017 PCI-LAD with a 2.75x38 Promus Premier drug eluting stent. 12/15/13 RAYMON of Right Posterior Lateral (Mid) wIth 3.0 x 2.8 Cypher, followed upstream with 3.0 x 8 Cypher, RAYMON of Right PDA (Ostial) with 25 x 28 Cypher 09/17/2007 Pancytopenia (Chronic) D61.818 Hypertension (Chronic) I10 Hypothyroidism (Chronic) E03.9 Hyperlipidemia (Chronic) E78.5 Diabetes mellitus, type II (Chronic) E11.9 Venous insufficiency (Chronic) CHF (congestive heart failure) (Chronic) I50.9 NSTEMI (non-ST elevated myocardial infarction) (Chronic) Onset Date: ~ I21.4 Intermittent claudication (Chronic) I73.9 Tricuspid valve insufficiency (Chronic) I07.1 Mitral valve insufficiency (Chronic) I34.0 Obesity (BMI 30.0-34.9) (Chronic) E66.9 Anemia D64.[address] Joyce 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) K75.81, K74.60 Allergies atorvastatin calcium [From Lipitor] Adverse Reaction (Verified 11/30/17 10:22) Unknown rosiglitazone maleate [From Avandia] Adverse Reaction (Verified 11/30/17 10:22) Other Home Medications: Ambulatory Orders Medication Instructions Recorded Aspirin [Aspirin, Baby] 81 mg PO DAILY@0800 06/30/17 Carvedilol [Coreg] 12.5 mg PO BIDCM 06/30/17 Clopidogrel Bisulfate [Clopidogrel] 75 mg PO DAILY 06/30/17 Insulin Glargine,Hum.rec.anlog 30 unit SQ DAILY 06/30/17 [Toujeo Solostar] Insulin Regular, Human [Humulin R] 8 unit SQ TIDCM 06/30/17 Losartan Potassium [Cozaar] 50 mg PO DAILY 06/30/17 Nitroglycerin [Nitrostat] 0.4 mg SL PRN PRN 06/30/17 Pravastatin [Pravachol] 80 mg PO DAILY 06/30/17 potassium chloride ER 8 mEq 8 meq PO DAILY #90 tab 10/02/17 tablet,extended release Ascorbic Acid [Vitamin C] 1,000 mg PO DAILY 11/03/17 Cholecalciferol (Vitamin D3) 5,000 unit PO DAILY 11/03/17 [Vitamin D3] Folic Acid 0.4 mg PO DAILY@0800 11/03/17 Multivitamin [Multiple Vitamins] 1 tablet PO DAILY 11/03/17 furosemide 40 mg tablet 40 mg PO BID tab 11/19/17 olanzapine 5 mg tablet 5 mg PO QHS tab 11/19/17 ranolazine ER 1,000 mg 1,000 mg PO Q12H tab 11/30/17 tablet,extended release,12 hr Isosorbide Mononitrate [Isosorbide 60 mg PO BID 02/01/18 Mononitrate ER] Levothyroxine Sodium [Synthroid] 125 mcg PO DAILY 02/01/18 Multivitamins,Therapeutic 1 tablet PO DAILY 02/01/18 [Multivitamin] Albuterol Inhaler [Ventolin Hfa 2 puff INHALATION PRN PRN 02/02/18 (SP)] Surgical History: Surgical History (Last Reviewed 11/30/17 @ 10:22 by Leydi Potts) History of coronary artery stent placement (Chronic) Z95.5 PTCA-ostail/prox LCx @ [facility] 11/09/2017 PTCA-Cutting Balloon Atherectomy w/ placement of 2.5 x 20 mm Synergy Stent, Distal LM-into the Ostium of LAD Stented w/ 4.0 x 16 mm Synergy Stent 2016[facility] 04/2017 PCI-LAD with a 2.75x38 Promus Premier drug eluting stent. 12/15/13 RAYMON of Right Posterior Lateral (Mid) wIth 3.0 x 2.8 Cypher, followed upstream with 3.0 x 8 Cypher, RAYMON of Right PDA (Ostial) with 25 x 28 Cypher 09/17/2007 S/P PTCA (percutaneous transluminal coronary angioplasty) (Chronic) Onset Date : ~11/09/17 Z98.61 PTCA-ostail/prox LCx @ [facility] 11/09/2017 PTCA-Cutting Balloon Atherectomy w/ placement of 2.5 x 20 mm Synergy Stent, Distal LM-into the Ostium of LAD Stented w/ 4.0 x 16 mm Synergy Stent 2016[facility] 04/2017 PCI-LAD with a 2.75x38 Promus Premier drug eluting stent. 12/15/13 RAYMON of Right Posterior Lateral (Mid) wIth 3.0 x 2.8 Cypher, followed upstream with 3.0 x 8 Cypher, RAYMON of Right PDA (Ostial) with 25 x 28 Cypher 09/17/2007 Surgical History: angioplasty, appendectomy, cholecystectomy, tonsillectomy, - - Spinal fusion Psychiatric History: No pertinent psych hx TAX SPECIALIST History: No pertinent TAX SPECIALIST history Lives: Alone Smoking Status: Never smoker Tobacco Use: Non-smoker Alcohol: None Drugs: None - *Family History Maternal Family History: Family History (Last Reviewed 11/30/17 @ 10:22 by Leydi Potts) Mother CAD (coronary artery disease) Father CAD (coronary artery disease) History Items: No pertinent history Paternal Family History: Family History (Last Reviewed 11/30/17 @ 10:22 by Leydi Potts) Mother CAD (coronary artery disease) Father CAD (coronary artery disease) History Items: No pertinent history Review of Systems Constitutional: Denies: Anorexia, Chills, Fever, Night Sweats, Malaise, Weakness , Weight Change, Fatigue Eyes: Denies: Blurred vision, Cataracts, Conjunctivae Inflammation, Double vision, Drainage, Eyelid Inflammation HEENT: Denies: Difficulty Hearing, Difficulty Swallowing, Dysphasia, Ear Pain, Head Aches, Hearing Changes, Nasal bleeding, Nasal Congestion Cardiovascular: Reports: Chest Pain. Denies: Claudication, Chest Pressure, Chest Tightness, Edema, Heaviness, Light Headedness, Palpitations, Syncope Respiratory: Reports: Shortness of Breath, Shortness of breath at rest. Denies : Cough, Hemoptysis, Pleuritic Pain, Shortness of breath upon exertion, Sputum production, Wheezing Gastrointestinal: Denies: Abdominal Pain, Constipation, Diarrhea, Hematemesis, Hematochezia, Nausea, Melena, Vomiting Genitourinary: Denies: Dysuria, Frequency, Hematuria, Hesitancy, Incontinence, Nocturia, Urgency Gynecological: Denies: Breast symptoms Musculoskeletal: Denies: Foot Pain, Hand Pain, Joint Pain, Joint stiffness, Joint swelling, Joint Tenderness, Leg Pain Skin: Denies: Dryness, Pruritis, Rash Neurological: Denies: Blurred vision, Double vision, Slurred speech, Difficulty swallowing, Focal weakness, Headaches, Incoordination, Numbness, Tingling Psychiatric: Denies: Anxiety, Depression, Homicidal Ideations, Suicidal Ideations Endocrine: Denies: Change in Body Habitus, Heat/ Cold Intolerance, Polydipsia, Polyuria Hematologic/ Lymphatic: Denies: Adenopathy, Anemia, Easy Bruising, Easy Bleeding , Petechiae, Purpura VTE Information - Inpt Only VTE Present on Admission: No VTE Mechan Device Prophylaxis: None VTE Pharm Prophylaxis ordered?: Yes Patient Problems: Active and Suspected Problems (Last Updated 11/19/17 @ 11:02 by Ginna Fitzgerald) Chest pain (Acute) - Physical Exam General: Alert, Oriented x3, Cooperative, No apparent distress, Well developed, Well nourished HEENT: Atraumatic, PERRLA, EOMI, Normocephalic Oral: Moist Mucosa Neck: Supple, No JVD, Negative Carotid Bruits, No Nuchal Rigidity, Trachea Midline, Thyroid Normal Size and Texture Lungs: Normal air movement, Rales - Inspiratory rales are noted over the lower lung clemente bilaterally Cardiovascular: Regular rate, Regular Rhythm, Normal S1, Normal S2, No murmurs, No Ectopic Activity, PMI Normal, No rub noted, No Gallop Abdomen: Bowel Sounds Present, Soft, Non Tender, Non-Distended, No hernias noted Extremities: No clubbing, No cyanosis, No edema, Capillary Refill Less than 3 Seconds Skin: No rashes, No breakdown Musculoskeletal: No Tenderness to Palpation of Joints or Extremities Neurological: Cranial nerves II-XII grossly intact, Neuro grossly intact, Sensory exam intact to light touch and pain, Coordination normal Psych/Mental Status: Normal Affect, Appropriate, Alert and oriented to time, place, person, mood and affect Vital Signs Temp Pulse Resp BP Pulse Ox 98.2 F 64 13 142/75 H 99 02/01/18 22:57 02/02/18 00:55 02/02/18 00:55 02/02/18 00:55 02/02/18 00:55 Oxygen Delivery Method Bi-pap Weight: 97.6 kg Body Mass Index (BMI) 33.7 Finger Stick Blood Glucose 270 Laboratory Tests Past 24 Hrs 02/01/18 02/01/18 02/01/18 23:20 23:20 23:20 WBC 3.2 L RBC 3.45 L Hgb 10.5 L Hct 32.0 L MCV 92.8 MCH 30.4 MCHC 32.8 RDW 13.9 RDW Differential 46.2 H Plt Count 138 L MPV 10.0 Immature Gran % (Auto) 0.000 Neut % (Auto) 58.5 Lymph % (Auto) 32.5 [place] % (Auto) 5.3 Eos % (Auto) 3.1 Baso % (Auto) 0.6 Absolute Neuts (auto) 1.9 L Absolute Lymphs (auto) 1.05 Total Counted Not Reportable Sodium 142 Potassium 4.0 Chloride 107 Carbon Dioxide 27.0 Anion Gap 8 BUN 18 Creatinine 0.92 Estim Creat Clear Calc 49.01 Est GFR (MDRD) Af Amer 75 Est GFR (MDRD) Non-Af 62 BUN/Creatinine Ratio 19.5 Glucose 319 H Calcium 8.6 Troponin I 0.213 H B-Natriuretic Peptide 141.9 H Assessment/Plan All Active Problems (Last Updated 11/19/17 @ 11:02 by Ginna Fitzgerald) Chest pain (Acute) Cognitive changes (Resolved) NSTEMI (non-ST elevated myocardial infarction) (Resolved) Unstable angina (Resolved) #1 [id number] will be admitted to PCU, she will be seen in consultation by cardiology, cardiac enzymes will be cycled, she will be medicated for chest pain as needed. Patient's current medications will be continued. #2 dyspnea-etiology unclear, patient's pulse ox on room air is 94%, continue to monitor O2 sat #3 schizophrenia #4 type 2 diabetes-blood sugars will be monitored and she will be given sliding scale insulin per protocol #5 Chronic anemia-etiology unclear, iron studies were ordered #6 Chronic leukopenia-etiology unclear #7 pulmonary fibrosis Code Visit Inpatient E&M: 57121 Init Hosp L3
--- NOTE | 2018-02-02 01:30 | ED.VISSUMM ---
- ER Visit Summary Date of Service: 02/02/18 Chief Complaint: Chest pain History of Present Illness: The patient is a [address] Malik and Dr. Cohen. Patient is a poor informant. She reports that she has chest pain that began today at 7 PM. There is a continuous sharp pain that is 10 out of 10 at worst and 8 out of 10 currently. States that it is worsened by exertion and transiently had minimal relief with nitroglycerin. Reports she has been nauseated and short of breath as well. She denies any diaphoresis or vomiting. On review of systems patient complains of a nonproductive cough, sneezing, and runny nose. She also reports she has generalized weakness. Physical Examination: Vitals: Stable. Afebrile. General: Well-nourished and well-developed. Head: Normocephalic atraumatic. Neck: Supple, no lymphadenopathy. No JVD. Nontender. Cardiovascular: Regular rate and rhythm. No murmurs. Respiratory: Mild respiratory distress. Clear to auscultation bilaterally. Abdominal: Soft, nontender, nondistended, normal bowel sounds. No guarding, rebound, or peritoneal signs. Back: Nontender. Extremities: Nontender, 3+ pitting edema of her lower extremities bilaterally Skin: Normal color, no rash. Neurologic: Alert and oriented ?3. Cranial nerves II through XII are intact. Normal strength and sensation. Psych: Normal affect. Test Results: EKG is sinus at 92 with 1-[address] depression inferiorly, lead I, leads V4 to V6. This is unchanged from November 032017. However, it is changed from November 052017. Chest x-ray shows chronic interstitial changes and cardiomegaly. No overt pulmonary edema. No change from previous. CBC is marked for white count of 3.2, H&H of 10.5 and 32.0, platelets 138. Chem-7 is more for glucose of 319. Initial troponin 0 0.213. 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 Emergency Department Course and Treatment: Patient was treated with aspirin. She was placed on BiPAP for her comfort. The patient's charts were reviewed. She has a very complicated cardiac history. She had a heart catheterization in November here and was transferred to [facility] where it appears she received a stent to the ostial and proximal circumflex artery. Treatment Plan: Patient was discussed with Dr. Foster who asked that she be admitted here. She was discussed with Dr. Jose who is seen her in the emergency department. Disposition: Admitted in serious condition. Impression: 1. Chest pain. 2. Indeterminate troponin. 3. Inferolateral ST depression. 4. SUMMER score 5. This note was generated with [employer] dictation software. It may contain incorrect words, spelling, and punctuation that were not noted in review of the chart prior to signing ED Disposition - Plan for ED Patient: Chief Complaint: Chest Pain
--- NOTE | 2018-02-02 01:33 | ED.DCSUM_ITS ---
- ER Visit Summary Date of Service: 02/02/18 Chief Complaint: Chest pain History of Present Illness: The patient is a [address] Malik and Dr. Cohen. Patient is a poor informant. She reports that she has chest pain that began today at 7 PM. There is a continuous sharp pain that is 10 out of 10 at worst and 8 out of 10 currently. States that it is worsened by exertion and transiently had minimal relief with nitroglycerin. Reports she has been nauseated and short of breath as well. She denies any diaphoresis or vomiting. On review of systems patient complains of a nonproductive cough, sneezing, and runny nose. She also reports she has generalized weakness. Physical Examination: Vitals: Stable. Afebrile. General: Well-nourished and well-developed. Head: Normocephalic atraumatic. Neck: Supple, no lymphadenopathy. No JVD. Nontender. Cardiovascular: Regular rate and rhythm. No murmurs. Respiratory: Mild respiratory distress. Clear to auscultation bilaterally. Abdominal: Soft, nontender, nondistended, normal bowel sounds. No guarding, rebound, or peritoneal signs. Back: Nontender. Extremities: Nontender, 3+ pitting edema of her lower extremities bilaterally Skin: Normal color, no rash. Neurologic: Alert and oriented ?3. Cranial nerves II through XII are intact. Normal strength and sensation. Psych: Normal affect. Test Results: EKG is sinus at 92 with 1-[address] depression inferiorly, lead I , leads V4 to V6. This is unchanged from November 032017. However, it is changed from November 052017. Chest x-ray shows chronic interstitial changes and cardiomegaly. No overt pulmonary edema. No change from previous. CBC is marked for white count of 3.2, H&H of 10.5 and 32.0, platelets 138. Chem-7 is more for glucose of 319. Initial troponin 0 0.213. 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 Emergency Department Course and Treatment: Patient was treated with aspirin. She was placed on BiPAP for her comfort. The patient's charts were reviewed. She has a very complicated cardiac history. She had a heart catheterization in November here and was transferred to [facility] where it appears she received a stent to the ostial and proximal circumflex artery. Treatment Plan: Patient was discussed with Dr. Foster who asked that she be admitted here. She was discussed with Dr. Jose who is seen her in the emergency department. Disposition: Admitted in serious condition. Impression: 1. Chest pain. 2. Indeterminate troponin. 3. Inferolateral ST depression. 4. SUMMER score 5. This note was generated with [employer] dictation software. It may contain incorrect words, spelling, and punctuation that were not noted in review of the chart prior to signing ED Disposition - Plan for ED Patient: Chief Complaint: Chest Pain
[2018-02-02 01:56] LABS: Iron 54 ug/dL (50-170); Iron Binding Capacity,Total 399 ug/dL (250-450); PERCENT IRON SATURATION 13.5 % (15.0-55.0)
[2018-02-02] MEDS: Morphine 4 MG/ML Syringe IV (02:15)
[2018-02-02] MEDS: 0.9% NaCl Peripheral Flush Adult/Peds IV ×2 (02:15→08:52)
--- NOTE | 2018-02-02 02:33 | CPS ---
decreased IPAP to 14 cm H2O and FIO2 to 35%
[2018-02-02 02:41] LABS: Bedside Glucose 251 mg/dL (70-110)
[2018-02-02] MEDS: Acetaminophen 325 MG Tablet 650 MG PO ×2 (05:22→16:44)
[2018-02-02] MEDS: Heparin Injection (Vial) 5,000 UNIT/ML VIAL 5000 UNIT SC (05:23)
[2018-02-02] MEDS: Levothyroxine 125 MCG Tablet PO (05:23)
--- NOTE | 2018-02-02 05:55 | EKG12_ITS ---
Test Reason : ADMIT EKG Blood Pressure : / mmHG Vent. Rate : 071 BPM Atrial Rate : 071 BPM P-R Int : 174 ms QRS Dur : 092 ms QT Int : 436 ms P-R-T Axes : 049 002 156 degrees QTc Int : 473 ms Normal sinus rhythm Left ventricular hypertrophy with repolarization abnormality Abnormal ECG When compared with ECG of 05-NOV-2017 05:22, No significant change was found Confirmed by SILVINA CHEW, NILSON ([id number]), scientific editor THAD HOOKER ([id number]) on 02/07/2018 3:59:19 PM Referred By: EDUARDO Confirmed By:NILSON COOL MD
--- NOTE | 2018-02-02 05:55 | ECHOD_ITS ---
Reason For Study: CAD/ASHD Procedure This was a 2D Doppler, Color Flow transthoracic echocardiogram. Exam performed portable in patient room. Left Ventricle Normal LV size. Transmitral diastolic flow velocities suggest mild (stage 1) diastolic dysfunction (reversed pattern). Left ventricular systolic function is lower limits of normal. The estimated ejection fraction is 50 %. [place] : Hypokinetic. Right Ventricle Normal RV size. Normal systolic function. Atria Normal left atrium. Normal right atrium. Mitral Valve Normal mitral valve. Mild (1+) eccentric mitral valve insufficiency. Tricuspid Valve Normal tricuspid valve. Mild to moderate (1-2+) tricuspid valve insufficiency. Pulmonary artery systolic pressure is 50 mmHg. Aortic Valve Trisinus/trileaflet aortic valve. Mild focal aortic valve calcification. Peak aortic valve gradient 17 mmHg. Mean aortic valve gradient 8 mmHg. Mild aortic stenosis. Calculated aortic valve area (continuity equation) is 1.5 cm2. Mild (1+) aortic valve insufficiency. Pulmonic Valve Normal pulmonic valve. Great Vessels Normal aortic root. The pulmonary artery is normal size. Normal inferior vena cava. Pericardium/Pleural No pericardial effusion. MMode/2D Measurements & Calculations LVIDd: 5.2 cm IVSd: 1.0 cm LVOT diam: 2.0 cm LVIDs: 3.2 cm LVPWd: 1.1 cm LVOT area: 3.2 cm2 RVDd: 3.9 cm FS: 37.5 % Ao root diam: 3.5 cm LAV(MOD-sp4): 83.5 ml LVAd ap4: 37.1 cm2 LA dimension: 3.7 cm EDV(MOD-sp4): 124.3 ml EDV(sp4-el): 130.3 ml LVAs ap4: 23.5 cm2 ESV(MOD-sp4): 57.4 ml ESV(sp4-el): 59.1 ml EF(MOD-sp4): 53.8 % EF(sp4-el): 54.7 % SV(MOD-sp4): 66.9 ml SV(sp4-el): 71.2 ml LA A4 area: 25.9 cm2 RA A4 area: 17.2 cm2 Time Measurements MV dec time: 0.24 sec Doppler Measurements & Calculations MV E max melo: 98.5 cm/sec Lat Peak E' Melo: 11.2 cm/sec Med Peak E' Melo: 7.3 cm/sec MV A max melo: 118.9 cm/sec E/E' lat: 8.8 E/E' med: 13.5 MV E/A: 0.83 MV V2 max: 117.8 cm/sec MV P1/2t max melo: 97.4 cm/sec Ao V2 max: 206.1 cm/sec MV max P.5 mmHg MV P1/2t: 66.6 msec Ao max P.0 mmHg MV V2 mean: 60.2 cm/sec MV dec slope: 428.1 cm/sec2 Ao V2 mean: 136.5 cm/sec MV mean P.7 mmHg MVA(P1/2t): 3.3 cm2 Ao mean P.4 mmHg MV V2 VTI: 35.5 cm Ao V2 VTI: 53.1 cm MVA(VTI): 2.6 cm2 CASH(I,D): 1.8 cm2 CASH(V,D): 1.5 cm2 AI max melo: 286.0 cm/sec LV V1 max: 96.6 cm/sec SV(LVOT): 93.6 ml AI max P.7 mmHg LV V1 max P.7 mmHg AI dec slope: 177.8 cm/sec2 LV V1 mean P.2 mmHg AI P1/2t: 471.1 msec LV V1 mean: 69.7 cm/sec LV V1 VTI: 29.3 cm PA V2 max: 98.9 cm/sec TR max melo: 339.6 cm/sec TR max P.1 mmHg Interpretation Summary Normal LV size. Transmitral diastolic flow velocities suggest mild (stage 1) diastolic dysfunction (reversed pattern). Mild (1+) eccentric mitral valve insufficiency. Mild (1+) aortic valve insufficiency. Calculated aortic valve area (continuity equation) is 1.5 cm2. The estimated ejection fraction is 50 %. [place] : Hypokinetic. Compared to the previous improvement noted Ordering Physician: Zenon Jose Referring Physician: VERONICA HERR Performed By: Louie Ledbetter RCS
[2018-02-02 07:01] LABS: Bedside Glucose 95 mg/dL (70-110)
[2018-02-02] MEDS: Insulin Lispro 100 UNIT/ML INSULN.PEN 8 UNIT SC ×3 (08:48→16:47)
[2018-02-02] MEDS: Aspirin 81 MG TAB.CHEW PO (08:49)
[2018-02-02] MEDS: Carvedilol 12.5 MG Tablet PO ×2 (08:50→16:48)
[2018-02-02] MEDS: Losartan Potassium 50 MG Tablet PO (08:50)
[2018-02-02] MEDS: Isosorbide Mononitrate 60 MG Tablet PO ×2 (08:50→21:33)
[2018-02-02] MEDS: Clopidogrel Bisulfate 75 MG Tablet PO (08:51)
[2018-02-02] MEDS: Nystatin Powder 15gm Bottle 1 APPLIC TOPICAL ×2 (08:51→21:35)
[2018-02-02] MEDS: Furosemide 40 MG Tablet PO ×2 (08:51→16:48)
[2018-02-02] MEDS: Ranolazine 500 MG Tablet 1000 MG PO ×2 (08:52→21:34)
[2018-02-02] MEDS: Enoxaparin 80 MG/0.8 ML Syringe SC ×2 (09:06→16:49)
--- NOTE | 2018-02-02 09:40 | PCM.CONS.C ---
Reason for Consult Date of Consultation: 02/02/18 Reason for Consultation: Chest pain an abnormal cardiac enzymes History of Present Illness: The patient is a 77 year old F with a complicated cardiac history who presented to the emergency room with chest discomfort. She describes some of this as sharp and others as dull but radiating to the right side of her neck. She says that she has had similar pain to this before and this was preceded by what appeared to be an upper respiratory tract infection. She does have a past medical history significant for hypertension coronary artery disease nonalcoholic steatohepatitis is aortic valve disease. You do remember that she had sustained an non-ST elevation myocardial infarction previously and had undergone multiple cardiac procedures. In August 2017 she had a non-ST elevation myocardial infarction she was transferred to [facility] where she underwent a cardiac catheterization which demonstrated left main coronary artery which had mild disease of proximal LAD which had disease for which she underwent fractional flow reserve which was 0.86. She had a 99% left circumflex artery stenosis for which she underwent angioplasty atherectomy and the placement of a 2.5?20 mm Synergy stent. The distal left main to the LAD also had a 70-80% stenosis for which she underwent a 4.0?16 mm Synergy stent. In November of this year she presented again with chest discomfort was the hospital underwent a repeat cardiac catheterization demonstrated a left main coronary artery with no significant stenosis, a left anterior descending artery with the proximal to mid 30% in-stent stenotic area and a mid 50% stenotic lesion. The ostium of the circumflex artery had a 95% stenotic lesion with a proximal 60% and a distal 70% stenosis. Due to the complexity and the right angle bend of this vessel she was transferred to the [facility]. While there she went a PET scan which demonstrated 20% ischemia noted in the anterior anterolateral and apical regions with transient ischemic dilatation. On the basis of this she underwent angioplasty with a 3.5?12 mm TR EK balloon. No stenting was done. She had apparently been doing well had an office follow-up and then presented to the emergency room with yesterday's issues. She was noted to have T-wave inversions in 1 and aVL as well as ST depression in V4 to V6. She is currently not having pain but her troponin did elevate to 8. [] Past Medical History Allergies/Adverse Reactions: Allergies atorvastatin calcium [From Lipitor] Adverse Reaction (Verified 02/02/18 01:54) Unknown rosiglitazone maleate [From [employer]] Adverse Reaction (Verified 02/02/18 01:54) Other Home Medications: Ambulatory Orders Medication Instructions Recorded Aspirin [Aspirin, Baby] 81 mg PO DAILY@0800 06/30/17 Carvedilol [Coreg] 12.5 mg PO BIDCM 06/30/17 Clopidogrel Bisulfate [Clopidogrel] 75 mg PO DAILY 06/30/17 Insulin Glargine,Hum.rec.anlog 30 unit SQ DAILY 06/30/17 [Toujeo Solostar] Insulin Regular, Human [Humulin R] 8 unit SQ TIDCM 06/30/17 Losartan Potassium [Cozaar] 50 mg PO DAILY 06/30/17 Nitroglycerin [Nitrostat] 0.4 mg SL PRN PRN 06/30/17 Pravastatin [Pravachol] 80 mg PO DAILY 06/30/17 potassium chloride ER 8 mEq 8 meq PO DAILY #90 tab 10/02/17 tablet,extended release Ascorbic Acid [Vitamin C] 1,000 mg PO DAILY 11/03/17 Cholecalciferol (Vitamin D3) 5,000 unit PO DAILY 11/03/17 [Vitamin D3] Folic Acid 0.4 mg PO DAILY@0800 11/03/17 Multivitamin [Multiple Vitamins] 1 tablet PO DAILY 11/03/17 furosemide 40 mg tablet 40 mg PO BID tab 11/19/17 olanzapine 5 mg tablet 5 mg PO QHS tab 11/19/17 ranolazine ER 1,000 mg 1,000 mg PO Q12H tab 11/30/17 tablet,extended release,12 hr Isosorbide Mononitrate [Isosorbide 60 mg PO BID 02/01/18 Mononitrate ER] Levothyroxine Sodium [Synthroid] 125 mcg PO DAILY 02/01/18 Multivitamins,Therapeutic 1 tablet PO DAILY 02/01/18 [Multivitamin] Albuterol Inhaler [Ventolin Hfa 2 puff INHALATION PRN PRN 02/02/18 (SP)] Past Medical History (Chronic Problems): Chronic Problems (Last Updated 11/19/17 @ 11:02 by Ginna Fitzgerald) Non-rheumatic aortic stenosis (Chronic) History of coronary artery stent placement (Chronic) PTCA-ostail/prox LCx @ [facility] 11/09/2017 PTCA-Cutting Balloon Atherectomy w/ placement of 2.5 x 20 mm Synergy Stent, Distal LM-into the Ostium of LAD Stented w/ 4.0 x 16 mm Synergy Stent 06/2017[facility] 04/2017 PCI-LAD with a 2.75x38 Promus Premier drug eluting stent. 12/15/13 RAYMON of Right Posterior Lateral (Mid) wIth 3.0 x 2.8 Cypher, followed upstream with 3.0 x 8 Cypher, RAYMON of Right PDA (Ostial) with 25 x 28 Cypher 09/17/2007 Chronic systolic (congestive) heart failure (Chronic) Schizophrenia (Chronic) S/P PTCA (percutaneous transluminal coronary angioplasty) (Chronic ~11/09/17) PTCA-ostail/prox LCx @ [facility] 11/09/2017 PTCA-Cutting Balloon Atherectomy w/ placement of 2.5 x 20 mm Synergy Stent, Distal LM-into the Ostium of LAD Stented w/ 4.0 x 16 mm Synergy Stent 06/2017[facility] 04/2017 PCI-LAD with a 2.75x38 Promus Premier drug eluting stent. 12/15/13 RAYMON of Right Posterior Lateral (Mid) wIth 3.0 x 2.8 Cypher, followed upstream with 3.0 x 8 Cypher, RAYMON of Right PDA (Ostial) with 25 x 28 Cypher 09/17/2007 History of coronary artery stent placement (Chronic) Atherosclerotic heart disease [place] coronary artery w/angina pectoris (Chronic) PTCA-ostail/prox LCx @ [facility] 11/09/2017 PTCA-Cutting Balloon Atherectomy w/ placement of 2.5 x 20 mm Synergy Stent, Distal LM-into the Ostium of LAD Stented w/ 4.0 x 16 mm Synergy Stent 06/2017[facility]- 04/2017 PCI-LAD with a 2.75x38 Promus Premier drug eluting stent. 12/15/13 RAYMON of Right Posterior Lateral (Mid) wIth 3.0 x 2.8 Cypher, followed upstream with 3.0 x 8 Cypher, RAYMON of Right PDA (Ostial) with 25 x 28 Cypher 09/17/2007 Pancytopenia (Chronic) Hypertension (Chronic) Hypothyroidism (Chronic) Hyperlipidemia (Chronic) Diabetes mellitus, type II (Chronic) Venous insufficiency (Chronic) CHF (congestive heart failure) (Chronic) NSTEMI (non-ST elevated myocardial infarction) (Chronic ~09/16/17) Intermittent claudication (Chronic) Tricuspid valve insufficiency (Chronic) Mitral valve insufficiency (Chronic) Obesity (BMI 30.0-34.9) (Chronic) Surgical History: angioplasty, appendectomy, cholecystectomy, tonsillectomy, - - Spinal fusion 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 - *Family History Maternal Family History: Family History (Last Reviewed 11/30/17 @ 10:22 by Leydi Potts) Mother CAD (coronary artery disease) Father CAD (coronary artery disease) History Items: No pertinent history Paternal Family History: Family History (Last Reviewed 11/30/17 @ 10:22 by Leydi Potts) Mother CAD (coronary artery disease) Father CAD (coronary artery disease) History Items: No pertinent history Lives: Alone Smoking Status: Never smoker Tobacco Use: Non-smoker Alcohol: None Drugs: None Review of Systems - Review of Systems General: Denies: Fever, Night Sweats, Fatigue Cardiovascular: Reports: Chest Discomfort, Chest Discomfort at Rest. Denies: Shortness of Breath, Orthopnea, PND, Peripheral Edema, Palpitations, Lightheadedness, Dizziness, Near Syncope, Syncope Respiratory: Denies: Cough, Sputum Production, Hemoptysis Gastrointestinal: Denies: Hematemesis, Hematochezia, Melena Genitourinary: Denies: Dysuria, Hematuria Skin: Denies: Rash Subjectve: Pleasant lady no apparent distress at this time Objective: Vital Signs Temp Pulse Resp BP Pulse Ox 97.7 F L 62 17 144/76 H 99 02/02/18 08:50 02/02/18 08:50 02/02/18 08:50 02/02/18 08:50 02/02/18 08:50 Oxygen Flow Rate (L/min) 2 Oxygen Delivery Method Nasal Cannula Weight: 197 lb 5.019 oz Body Mass Index (BMI) 30.9 Intake and Output for Last 24 Hours 01/31/18 02/01/18 02/02/18 23:59 23:59 23:59 Intake Total 60 / 60 Balance 60 / 60 General: Awake, Alert, Oriented x 3 HEENT: PERRL, EOMI, Sclera Non Icteric Neck: Supple, Good ROM, No Lymph Node Enlargement Lungs: Clear to auscultation Cardiovascular: Regular Rhythm, Normal S1, Normal S2, No Rubs, No Gallops Murmur Murmur: Grade 2/6, Early Systolic, LLSB Vascular: No Carotid Bruits, Normal Femoral Pulses, Normal Radial Pulses, Normal Dorsalis Pedal Pulse, Normal Posterior Tibial Pulses Abdomen: Bowel Sounds Present, Soft, Non Tender, No HSM, No Organomegaly Extremities: Bilateral Edema +1 Neurological: No Focal Motor or Sensory Deficit 02/02/18 02:28: Troponin I 3.690 H* 02/02/18 05:25: Troponin I 8.180 H* Rhythm: EKG: Normal sinus rhythm with ST depression noted in V4 through V6. Assessment/Plan 1.1. Atherosclerosis of [place] coronary artery of [place] heart with non-ST elevation myocardial infarction. She presents with chest discomfort and has previously undergone the following procedures: PTCA-ostail/prox LCx @ [facility] 11/09/2017; PTCA-Cutting Balloon Atherectomy w/ placement of 2.5 x 20 mm Synergy Stent, Distal LM-into the Ostium of LAD Stented w/ 4.0 x 16 mm Synergy Stent 06/2017[facility] 04/2017 PCI-LAD with a 2.75x38 Promus Premier drug eluting stent. 12/15/13 RAYMON of Right Posterior Lateral (Mid) wIth 3.0 x 2.8 Cypher, followed upstream with 3.0 x 8 Cypher, RAYMON of Right PDA (Ostial) with 25 x 28 Cypher 09/17/2007 Based on the above as well as the complexity of her disease it would be prudent to transfer her back to the tertiary care facility to see whether she can be further intervened on. I have discussed the above with her and her primary care physician. She will be anticoagulated with Lovenox continue her statin as well as her clopidogrel and aspirin. Her beta-radha would also be continued. 2. Hypertension She does have a history of hypertension which appears to be under good control at this time. I would not recommend we make any changes. 3. Aortic valve disease. She does have aortic valve stenosis which appears to be mild to moderate. She appears to be tolerating this well though she may be in mild heart failure. She will be cautiously diuresed. 4. Mild diastolic heart failure acute She does appear to be mild diastolic heart failure likely secondary to her coronary disease on top of her concomitant valvular heart disease. She will be given a dose of diuretic prior to her transfer. 5. Hyperlipidemia She does have a history of hyperlipidemia and will be treated with aggressive risk factor modification. Thank you for allowing me to participate in the care of your patient. Please don't hesitate to call if any issues arise
--- NOTE | 2018-02-02 09:49 | CON.PCM_ITS ---
Reason for Consult Date of Consultation: 02/02/18 Reason for Consultation: Chest pain an abnormal cardiac enzymes History of Present Illness: The patient is a 77 year old F with a complicated cardiac history who presented to the emergency room with chest discomfort. She describes some of this as sharp and others as dull but radiating to the right side of her neck. She says that she has had similar pain to this before and this was preceded by what appeared to be an upper respiratory tract infection. She does have a past medical history significant for hypertension coronary artery disease nonalcoholic steatohepatitis is aortic valve disease. You do remember that she had sustained an non-ST elevation myocardial infarction previously and had undergone multiple cardiac procedures. In August 2017 she had a non-ST elevation myocardial infarction she was transferred to [facility] where she underwent a cardiac catheterization which demonstrated left main coronary artery which had mild disease of proximal LAD which had disease for which she underwent fractional flow reserve which was 0.86. She had a 99% left circumflex artery stenosis for which she underwent angioplasty atherectomy and the placement of a 2.5?20 mm Synergy stent. The distal left main to the LAD also had a 70-80% stenosis for which she underwent a 4.0?16 mm Synergy stent. In November of this year she presented again with chest discomfort was the hospital underwent a repeat cardiac catheterization demonstrated a left main coronary artery with no significant stenosis, a left anterior descending artery with the proximal to mid 30% in-stent stenotic area and a mid 50% stenotic lesion. The ostium of the circumflex artery had a 95% stenotic lesion with a proximal 60% and a distal 70% stenosis. Due to the complexity and the right angle bend of this vessel she was transferred to the [facility]. While there she went a PET scan which demonstrated 20% ischemia noted in the anterior anterolateral and apical regions with transient ischemic dilatation. On the basis of this she underwent angioplasty with a 3.5?12 mm TR EK balloon. No stenting was done. She had apparently been doing well had an office follow-up and then presented to the emergency room with yesterday's issues. She was noted to have T-wave inversions in 1 and aVL as well as ST depression in V4 to V6. She is currently not having pain but her troponin did elevate to 8. [] Past Medical History Allergies/Adverse Reactions: Allergies atorvastatin calcium [From Lipitor] Adverse Reaction (Verified 02/02/18 01:54) Unknown rosiglitazone maleate [From [employer]] Adverse Reaction (Verified 02/02/18 01:54) Other Home Medications: Ambulatory Orders Medication Instructions Recorded Aspirin [Aspirin, Baby] 81 mg PO DAILY@0800 06/30/17 Carvedilol [Coreg] 12.5 mg PO BIDCM 06/30/17 Clopidogrel Bisulfate [Clopidogrel] 75 mg PO DAILY 06/30/17 Insulin Glargine,Hum.rec.anlog 30 unit SQ DAILY 06/30/17 [Toujeo Solostar] Insulin Regular, Human [Humulin R] 8 unit SQ TIDCM 06/30/17 Losartan Potassium [Cozaar] 50 mg PO DAILY 06/30/17 Nitroglycerin [Nitrostat] 0.4 mg SL PRN PRN 06/30/17 Pravastatin [Pravachol] 80 mg PO DAILY 06/30/17 potassium chloride ER 8 mEq 8 meq PO DAILY #90 tab 10/02/17 tablet,extended release Ascorbic Acid [Vitamin C] 1,000 mg PO DAILY 11/03/17 Cholecalciferol (Vitamin D3) 5,000 unit PO DAILY 11/03/17 [Vitamin D3] Folic Acid 0.4 mg PO DAILY@0800 11/03/17 Multivitamin [Multiple Vitamins] 1 tablet PO DAILY 11/03/17 furosemide 40 mg tablet 40 mg PO BID tab 11/19/17 olanzapine 5 mg tablet 5 mg PO QHS tab 11/19/17 ranolazine ER 1,000 mg 1,000 mg PO Q12H tab 11/30/17 tablet,extended release,12 hr Isosorbide Mononitrate [Isosorbide 60 mg PO BID 02/01/18 Mononitrate ER] Levothyroxine Sodium [Synthroid] 125 mcg PO DAILY 02/01/18 Multivitamins,Therapeutic 1 tablet PO DAILY 02/01/18 [Multivitamin] Albuterol Inhaler [Ventolin Hfa 2 puff INHALATION PRN PRN 02/02/18 (SP)] Past Medical History (Chronic Problems): Chronic Problems (Last Updated 11/19/17 @ 11:02 by Ginna Fitzgerald) Non-rheumatic aortic stenosis (Chronic) History of coronary artery stent placement (Chronic) PTCA-ostail/prox LCx @ [facility] 11/09/2017 PTCA-Cutting Balloon Atherectomy w/ placement of 2.5 x 20 mm Synergy Stent, Distal LM-into the Ostium of LAD Stented w/ 4.0 x 16 mm Synergy Stent 2016[facility] 04/2017 PCI-LAD with a 2.75x38 Promus Premier drug eluting stent. 12/15/13 RAYMON of Right Posterior Lateral (Mid) wIth 3.0 x 2.8 Cypher, followed upstream with 3.0 x 8 Cypher, RAYMON of Right PDA (Ostial) with 25 x 28 Cypher 09/17/2007 Chronic systolic (congestive) heart failure (Chronic) Schizophrenia (Chronic) S/P PTCA (percutaneous transluminal coronary angioplasty) (Chronic ~11/09/17) PTCA-ostail/prox LCx @ [facility] 11/09/2017 PTCA-Cutting Balloon Atherectomy w/ placement of 2.5 x 20 mm Synergy Stent, Distal LM-into the Ostium of LAD Stented w/ 4.0 x 16 mm Synergy Stent 2016[facility] 04/2017 PCI-LAD with a 2.75x38 Promus Premier drug eluting stent. 12/15/13 RAYMON of Right Posterior Lateral (Mid) wIth 3.0 x 2.8 Cypher, followed upstream with 3.0 x 8 Cypher, RAYMON of Right PDA (Ostial) with 25 x 28 Cypher 09/17/2007 History of coronary artery stent placement (Chronic) Atherosclerotic heart disease [place] coronary artery w/angina pectoris (Chronic) PTCA-ostail/prox LCx @ [facility] 11/09/2017 PTCA-Cutting Balloon Atherectomy w/ placement of 2.5 x 20 mm Synergy Stent, Distal LM-into the Ostium of LAD Stented w/ 4.0 x 16 mm Synergy Stent 2016[facility]- 04/2017 PCI-LAD with a 2.75x38 Promus Premier drug eluting stent. 12/15/13 RAYMON of Right Posterior Lateral (Mid) wIth 3.0 x 2.8 Cypher, followed upstream with 3.0 x 8 Cypher, RAYMON of Right PDA (Ostial) with 25 x 28 Cypher 09/17/2007 Pancytopenia (Chronic) Hypertension (Chronic) Hypothyroidism (Chronic) Hyperlipidemia (Chronic) Diabetes mellitus, type II (Chronic) Venous insufficiency (Chronic) CHF (congestive heart failure) (Chronic) NSTEMI (non-ST elevated myocardial infarction) (Chronic ~09/16/17) Intermittent claudication (Chronic) Tricuspid valve insufficiency (Chronic) Mitral valve insufficiency (Chronic) Obesity (BMI 30.0-34.9) (Chronic) Surgical History: angioplasty, appendectomy, cholecystectomy, tonsillectomy, - - Spinal fusion Psychiatric 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 - *Family History Maternal Family History: Family History (Last Reviewed 11/30/17 @ 10:22 by Leydi Potts) Mother CAD (coronary artery disease) Father CAD (coronary artery disease) History Items: No pertinent history Paternal Family History: Family History (Last Reviewed 11/30/17 @ 10:22 by Leydi Potts) Mother CAD (coronary artery disease) Father CAD (coronary artery disease) History Items: No pertinent history Lives: Alone Smoking Status: Never smoker Tobacco Use: Non-smoker Alcohol: None Drugs: None Review of Systems - Review of Systems General: Denies: Fever, Night Sweats, Fatigue Cardiovascular: Reports: Chest Discomfort, Chest Discomfort at Rest. Denies: Shortness of Breath, Orthopnea, PND, Peripheral Edema, Palpitations, Lightheadedness, Dizziness, Near Syncope, Syncope Respiratory: Denies: Cough, Sputum Production, Hemoptysis Gastrointestinal: Denies: Hematemesis, Hematochezia, Melena Genitourinary: Denies: Dysuria, Hematuria Skin: Denies: Rash Subjectve: Pleasant lady no apparent distress at this time Objective: Vital Signs Temp Pulse Resp BP Pulse Ox 97.7 F L 62 17 144/76 H 99 02/02/18 08:50 02/02/18 08:50 02/02/18 08:50 02/02/18 08:50 02/02/18 08:50 Oxygen Flow Rate (L/min) 2 Oxygen Delivery Method Nasal Cannula Weight: 197 lb 5.019 oz Body Mass Index (BMI) 30.9 Intake and Output for Last 24 Hours 01/31/18 02/01/18 02/02/18 23:59 23:59 23:59 Intake Total 60 / 60 Balance 60 / 60 General: Awake, Alert, Oriented x 3 HEENT: PERRL, EOMI, Sclera Non Icteric Neck: Supple, Good ROM, No Lymph Node Enlargement Lungs: Clear to auscultation Cardiovascular: Regular Rhythm, Normal S1, Normal S2, No Rubs, No Gallops Murmur Murmur: Grade 2/6, Early Systolic, LLSB Vascular: No Carotid Bruits, Normal Femoral Pulses, Normal Radial Pulses, Normal Dorsalis Pedal Pulse, Normal Posterior Tibial Pulses Abdomen: Bowel Sounds Present, Soft, Non Tender, No HSM, No Organomegaly Extremities: Bilateral Edema +1 Neurological: No Focal Motor or Sensory Deficit 02/02/18 02:28: Troponin I 3.690 H* 02/02/18 05:25: Troponin I 8.180 H* Rhythm: EKG: Normal sinus rhythm with ST depression noted in V4 through V6. Assessment/Plan 1.1. Atherosclerosis of [place] coronary artery of [place] heart with non-ST elevation myocardial infarction. She presents with chest discomfort and has previously undergone the following procedures: PTCA-ostail/prox LCx @ [facility] 11/09/2017; PTCA-Cutting Balloon Atherectomy w/ placement of 2.5 x 20 mm Synergy Stent , Distal LM-into the Ostium of LAD Stented w/ 4.0 x 16 mm Synergy Stent 2016[facility] 04/2017 PCI-LAD with a 2.75x38 Promus Premier drug eluting stent. 12/15/13 RAYMON of Right Posterior Lateral (Mid) wIth 3.0 x 2.8 Cypher, followed upstream with 3.0 x 8 Cypher, RAYMON of Right PDA (Ostial) with 25 x 28 Cypher 09/17 Based on the above as well as the complexity of her disease it would be prudent to transfer her back to the tertiary care facility to see whether she can be further intervened on. I have discussed the above with her and her primary care physician. She will be anticoagulated with Lovenox continue her statin as well as her clopidogrel and aspirin. Her beta-radha would also be continued. 2. Hypertension She does have a history of hypertension which appears to be under good control at this time. I would not recommend we make any changes. 3. Aortic valve disease. She does have aortic valve stenosis which appears to be mild to moderate. She appears to be tolerating this well though she may be in mild heart failure. She will be cautiously diuresed. 4. Mild diastolic heart failure acute She does appear to be mild diastolic heart failure likely secondary to her coronary disease on top of her concomitant valvular heart disease. She will be given a dose of diuretic prior to her transfer. 5. Hyperlipidemia She does have a history of hyperlipidemia and will be treated with aggressive risk factor modification. Thank you for allowing me to participate in the care of your patient. Please don't hesitate to call if any issues arise
[2018-02-02] MEDS: Morphine 2 MG/ML Syringe IV (10:20)
[2018-02-02 11:30] LABS: Bedside Glucose 116 mg/dL (70-110)
--- NOTE | 2018-02-02 16:27 | DS.PCM_ITS ---
Discharge Date and Diagnosis - Problem List Patient Problems: Active and Suspected Problems (Last Updated 11/19/17 @ 11:02 by Ginna Fitzgerald) Chest pain (Acute) Date of Admission: 02/02/18 Date of Discharge: 02/02/18 - Primary Discharge Diagnosis Active and Suspected Problems (Last Updated 11/19/17 @ 11:02 by Ginna Fitzgerald) Chest pain (Acute) - Secondary Discharge Diagnosis Chronic Problems (Last Updated 11/19/17 @ 11:02 by Ginna Fitzgerald) Non-rheumatic aortic stenosis (Chronic) History of coronary artery stent placement (Chronic) PTCA-ostail/prox LCx @ [facility] 11/09/2017 PTCA-Cutting Balloon Atherectomy w/ placement of 2.5 x 20 mm Synergy Stent, Distal LM-into the Ostium of LAD Stented w/ 4.0 x 16 mm Synergy Stent 2016PTCA- 04/2017 PCI-LAD with a 2.75x38 Promus Premier drug eluting stent. 12/15/13 RAYMON of Right Posterior Lateral (Mid) wIth 3.0 x 2.8 Cypher, followed upstream with 3.0 x 8 Cypher, RAYMON of Right PDA (Ostial) with 25 x 28 Cypher 09/17/2007 Chronic systolic (congestive) heart failure (Chronic) Schizophrenia (Chronic) S/P PTCA (percutaneous transluminal coronary angioplasty) (Chronic ~11/09/17) PTCA-ostail/prox LCx @ [facility] 11/09/2017 PTCA-Cutting Balloon Atherectomy w/ placement of 2.5 x 20 mm Synergy Stent, Distal LM-into the Ostium of LAD Stented w/ 4.0 x 16 mm Synergy Stent 2016PTCA-OM 04/2017 PCI-LAD with a 2.75x38 Promus Premier drug eluting stent. 12/15/13 RAYMON of Right Posterior Lateral (Mid) wIth 3.0 x 2.8 Cypher, followed upstream with 3.0 x 8 Cypher, RAYMON of Right PDA (Ostial) with 25 x 28 Cypher 09/17/2007 History of coronary artery stent placement (Chronic) Atherosclerotic heart disease [place] coronary artery w/angina pectoris (Chronic) PTCA-ostail/prox LCx @ [facility] 11/09/2017 PTCA-Cutting Balloon Atherectomy w/ placement of 2.5 x 20 mm Synergy Stent, Distal LM-into the Ostium of LAD Stented w/ 4.0 x 16 mm Synergy Stent 2016PTCA-OM 04/2017 PCI-LAD with a 2.75x38 Promus Premier drug eluting stent. 12/15/13 RAYMON of Right Posterior Lateral (Mid) wIth 3.0 x 2.8 Cypher, followed upstream with 3.0 x 8 Cypher, RYAMON of Right PDA (Ostial) with 25 x 28 Cypher 09/17/2007 Pancytopenia (Chronic) Hypertension (Chronic) Hypothyroidism (Chronic) Hyperlipidemia (Chronic) Diabetes mellitus, type II (Chronic) Venous insufficiency (Chronic) CHF (congestive heart failure) (Chronic) NSTEMI (non-ST elevated myocardial infarction) (Chronic ~09/16/17) Intermittent claudication (Chronic) Tricuspid valve insufficiency (Chronic) Mitral valve insufficiency (Chronic) Obesity (BMI 30.0-34.9) (Chronic) Hospital Course and Treatment Imaging Results: Clinical Impression(s) from Imaging Studies Chest X-Ray 02/01/18 23:30 IMPRESSION: No acute cardiopulmonary abnormalities. Diffuse coarse interstitial opacities likely represent fibrosis. Electronically Signed: Aziza Holland MD at 0:22 EDT Tel Direct: [phone], Service support , Operations: None Summary of Care Provided: The patient is a 77 year old F [] Home Medications: Medications to take at Discharge Aspirin [Aspirin, Baby] 81 mg PO DAILY@0800 06/30/17 Carvedilol [Coreg] 12.5 mg PO BIDCM 06/30/17 Clopidogrel Bisulfate [Clopidogrel] 75 mg PO DAILY 06/30/17 Insulin Glargine,Hum.rec.anlog [Toujeo Solostar] 30 unit SQ DAILY 06/30/17 Insulin Regular, Human [Humulin R] 8 unit SQ TIDCM 06/30/17 Losartan Potassium [Cozaar] 50 mg PO DAILY 06/30/17 Nitroglycerin [Nitrostat] 0.4 mg SL PRN PRN 06/30/17 Pravastatin [Pravachol] 80 mg PO DAILY 06/30/17 potassium chloride ER 8 mEq tablet,extended release 8 meq PO DAILY #90 tab 10/02 Ascorbic Acid [Vitamin C] 1,000 mg PO DAILY 11/03/17 Cholecalciferol (Vitamin D3) [Vitamin D3] 5,000 unit PO DAILY 11/03/17 Folic Acid 0.4 mg PO DAILY@0800 11/03/17 Multivitamin [Multiple Vitamins] 1 tablet PO DAILY 11/03/17 furosemide 40 mg tablet 40 mg PO BID tab 11/19/17 olanzapine 5 mg tablet 5 mg PO QHS tab 11/19/17 ranolazine ER 1,000 mg tablet,extended release,12 hr 1,000 mg PO Q12H tab 11/30 Isosorbide Mononitrate [Isosorbide Mononitrate ER] 60 mg PO BID 02/01/18 Levothyroxine Sodium [Synthroid] 125 mcg PO DAILY 02/01/18 Multivitamins,Therapeutic [Multivitamin] 1 tablet PO DAILY 02/01/18 Albuterol Inhaler [Ventolin Hfa (SP)] 2 puff INHALATION PRN PRN 02/02/18 Primary Care Physician: Diana Cohen MD [Primary Care Provider] - Medical Necessity - Tobacco Use Smoking Status: Never smoker Tobacco Use: Non-smoker
[2018-02-02 17:36] LABS: Bedside Glucose 107 mg/dL (70-110)
[2018-02-02] MEDS: Pravastatin 80 MG Tablet PO (21:34)
[2018-02-02] MEDS: OLANZapine 5 MG/TAB TAB.RAPDIS PO (21:41)
[2018-02-02 21:51] LABS: Bedside Glucose 104 mg/dL (70-110)
[2018-02-03 02:20] VITALS: BP 107/44; PULSE 63; RESP 16; TEMP 37.2; O2SAT 97
[2018-02-03 03:12] VITALS: PULSE 63
[2018-02-03 06:50] VITALS: BP 125/45; PULSE 63; RESP 16; TEMP 36.9; O2SAT 99
[2018-02-03 07:14] VITALS: PULSE 66
[2018-02-03 07:30] LABS: Bedside Glucose 87 mg/dL (70-110)
--- NOTE | 2018-02-03 07:37 | PCM.DC.SUM ---
Discharge Date and Diagnosis Date of Admission: 02/02/18 Date of Discharge: 02/03/18 - Primary Discharge Diagnosis Active and Suspected Problems (Last Updated 11/19/17 @ 11:02 by Ginna Fitzgerald) #1 acute non-ST elevation NC. #2 mild acute on chronic diastolic CHF. - Secondary Discharge Diagnosis Chronic Problems (Last Updated 11/19/17 @ 11:02 by Ginna Fitzgerald) Non-rheumatic aortic stenosis (Chronic) History of coronary artery stent placement (Chronic) PTCA-ostail/prox LCx @ [facility] 11/09/2017 PTCA-Cutting Balloon Atherectomy w/ placement of 2.5 x 20 mm Synergy Stent, Distal LM-into the Ostium of LAD Stented w/ 4.0 x 16 mm Synergy Stent 06/2017PTCA- 04/2017 PCI-LAD with a 2.75x38 Promus Premier drug eluting stent. 12/15/13 RAYMON of Right Posterior Lateral (Mid) wIth 3.0 x 2.8 Cypher, followed upstream with 3.0 x 8 Cypher, RAYMON of Right PDA (Ostial) with 25 x 28 Cypher 09/17/2007 Chronic systolic (congestive) heart failure (Chronic) Schizophrenia (Chronic) S/P PTCA (percutaneous transluminal coronary angioplasty) (Chronic ~11/09/17) PTCA-ostail/prox LCx @ [facility] 11/09/2017 PTCA-Cutting Balloon Atherectomy w/ placement of 2.5 x 20 mm Synergy Stent, Distal LM-into the Ostium of LAD Stented w/ 4.0 x 16 mm Synergy Stent 06/2017PTCA-OM 04/2017 PCI-LAD with a 2.75x38 Promus Premier drug eluting stent. 12/15/13 RAYMON of Right Posterior Lateral (Mid) wIth 3.0 x 2.8 Cypher, followed upstream with 3.0 x 8 Cypher, RAYMON of Right PDA (Ostial) with 25 x 28 Cypher 09/17/2007 History of coronary artery stent placement (Chronic) Atherosclerotic heart disease [place] coronary artery w/angina pectoris (Chronic) PTCA-ostail/prox LCx @ [facility] 11/09/2017 PTCA-Cutting Balloon Atherectomy w/ placement of 2.5 x 20 mm Synergy Stent, Distal LM-into the Ostium of LAD Stented w/ 4.0 x 16 mm Synergy Stent 06/2017PTCA-OM 04/2017 PCI-LAD with a 2.75x38 Promus Premier drug eluting stent. 12/15/13 RAYMON of Right Posterior Lateral (Mid) wIth 3.0 x 2.8 Cypher, followed upstream with 3.0 x 8 Cypher, RAYMON of Right PDA (Ostial) with 25 x 28 Cypher 09/17/2007 Pancytopenia (Chronic) Hypertension (Chronic) Hypothyroidism (Chronic) Hyperlipidemia (Chronic) Diabetes mellitus, type II (Chronic) Venous insufficiency (Chronic) CHF (congestive heart failure) (Chronic) NSTEMI (non-ST elevated myocardial infarction) (Chronic ~09/16/17) Intermittent claudication (Chronic) Tricuspid valve insufficiency (Chronic) Mitral valve insufficiency (Chronic) Obesity (BMI 30.0-34.9) (Chronic) Hospital Course and Treatment Imaging Results: Clinical Impression(s) from Imaging Studies Chest X-Ray 02/01/18 23:30 IMPRESSION: No acute cardiopulmonary abnormalities. Diffuse coarse interstitial opacities likely represent fibrosis. Electronically Signed: Aziza Holland MD at 0:22 EDT Tel Direct: [phone], Service support , Dr. Foster, cardiology. Operations: None Procedures: EKG Summary of Care Provided: Patient seen and examined on the day of the transfer. She mentioned that her chest pain is improved but still having some chest soreness as she described it denies shortness of breath today. Her vital signs are stable. - Physical Exam General: Alert, Oriented x3, Cooperative, No apparent distress. HEENT: Atraumatic, PERRLA, EOMI. Neck: Supple, No JVD, Negative Carotid Bruits, Trachea Midline, Thyroid Normal. Lungs: Decreased breath sounds bilateral, bilateral basal crackles, no rhonchi or wheezes.. Cardiovascular: Regular rate, Regular Rhythm, Normal S1, Normal S2, PMI Normal. Abdomen: Bowel Sounds Present, Soft, Non Tender, Non-Distended, No Hepato-splenomegaly. Extremities: No clubbing, No cyanosis, No edema Skin: No rashes, No breakdown Neurological: Neuro grossly intact Vital Signs are stable. Hospital course: The patient is a 77 year old F admitted because of chest pain and she was found to have acute non-ST elevation NC. An EKG revealed deep ST segment depression in leads V4, V5 and V6 and those changes are new compared to her previous EKG. Her troponin was elevated and went up to 8.18. On November,, patient was admitted because of chest pain and she underwent cardiac catheterization that revealed 30% in-stent stenotic area of the left anterior descending artery, ostium of the circumflex artery had 95% stenotic lesion, proximal 60% and distal 70% stenosis of the circumflex artery and at that time, she was transferred to [facility] for further evaluation. She underwent angioplasty without stenting at [facility]. She was treated with aspirin, Plavix, therapeutic Lovenox twice daily, Coreg, isosorbide mononitrate and losartan. Her vital signs were stable. Her routine blood work was remarkable for chronic anemia, otherwise normal. Cardiology consulted and recommended to transfer patient to [facility] for further treatment. I spoke with the [facility] transfer line, arrangement was made for the patient to be transferred to [facility] for further management. Patient transferred to [facility] in a stable medical condition. Home Medications: Medications to take at Discharge Aspirin [Aspirin, Baby] 81 mg PO DAILY@0800 06/30/17 Carvedilol [Coreg] 12.5 mg PO BIDCM 06/30/17 Clopidogrel Bisulfate [Clopidogrel] 75 mg PO DAILY 06/30/17 Insulin Glargine,Hum.rec.anlog [[place]yungo Solostmarisabel] 30 unit SQ DAILY 06/30/17 Insulin Regular, Human [Humulin R] 8 unit SQ TIDCM 06/30/17 Losartan Potassium [Cozaar] 50 mg PO DAILY 06/30/17 Nitroglycerin [Nitrostat] 0.4 mg SL PRN PRN 06/30/17 Pravastatin [Pravachol] 80 mg PO DAILY 06/30/17 potassium chloride ER 8 mEq tablet,extended release 8 meq PO DAILY #90 tab 10/02/17 Ascorbic Acid [Vitamin C] 1,000 mg PO DAILY 11/03/17 Cholecalciferol (Vitamin D3) [Vitamin D3] 5,000 unit PO DAILY 11/03/17 Folic Acid 0.4 mg PO DAILY@0800 11/03/17 Multivitamin [Multiple Vitamins] 1 tablet PO DAILY 11/03/17 furosemide 40 mg tablet 40 mg PO BID tab 11/19/17 olanzapine 5 mg tablet 5 mg PO QHS tab 11/19/17 ranolazine ER 1,000 mg tablet,extended release,12 hr 1,000 mg PO Q12H tab 11/30/17 Isosorbide Mononitrate [Isosorbide Mononitrate ER] 60 mg PO BID 02/01/18 Levothyroxine Sodium [Synthroid] 125 mcg PO DAILY 02/01/18 Multivitamins,Therapeutic [Multivitamin] 1 tablet PO DAILY 02/01/18 Albuterol Inhaler [Ventolin Hfa (SP)] 2 puff INHALATION PRN PRN 02/02/18 Primary Care Physician: Diana Cohen MD [Primary Care Provider] - Disposition: Acute care Hospital Minutes spent on discharge:: 32 Patient Condition:: Guarded Medical Necessity - Tobacco Use Smoking Status: Never smoker Tobacco Use: Non-smoker Meaningful Use Info Meaningful Use Diagnoses (Choose all that apply): None applicable
--- NOTE | 2018-02-03 07:41 | DS.PCM_ITS ---
Discharge Date and Diagnosis Date of Admission: 02/02/18 Date of Discharge: 02/03/18 - Primary Discharge Diagnosis Active and Suspected Problems (Last Updated 11/19/17 @ 11:02 by Ginna Fitzgerald) #1 acute non-ST elevation CT. #2 mild acute on chronic diastolic CHF. - Secondary Discharge Diagnosis Chronic Problems (Last Updated 11/19/17 @ 11:02 by Ginna Fitzgerald) Non-rheumatic aortic stenosis (Chronic) History of coronary artery stent placement (Chronic) PTCA-ostail/prox LCx @ [facility] 11/09/2017 PTCA-Cutting Balloon Atherectomy w/ placement of 2.5 x 20 mm Synergy Stent, Distal LM-into the Ostium of LAD Stented w/ 4.0 x 16 mm Synergy Stent 2016PTCA- 04/2017 PCI-LAD with a 2.75x38 Promus Premier drug eluting stent. 12/15/13 RAYMON of Right Posterior Lateral (Mid) wIth 3.0 x 2.8 Cypher, followed upstream with 3.0 x 8 Cypher, RAYMON of Right PDA (Ostial) with 25 x 28 Cypher 09/17/2007 Chronic systolic (congestive) heart failure (Chronic) Schizophrenia (Chronic) S/P PTCA (percutaneous transluminal coronary angioplasty) (Chronic ~11/09/17) PTCA-ostail/prox LCx @ [facility] 11/09/2017 PTCA-Cutting Balloon Atherectomy w/ placement of 2.5 x 20 mm Synergy Stent, Distal LM-into the Ostium of LAD Stented w/ 4.0 x 16 mm Synergy Stent 2016PTCA-OM 04/2017 PCI-LAD with a 2.75x38 Promus Premier drug eluting stent. 12/15/13 RAYMON of Right Posterior Lateral (Mid) wIth 3.0 x 2.8 Cypher, followed upstream with 3.0 x 8 Cypher, RAYMON of Right PDA (Ostial) with 25 x 28 Cypher 09/17/2007 History of coronary artery stent placement (Chronic) Atherosclerotic heart disease [place] coronary artery w/angina pectoris (Chronic) PTCA-ostail/prox LCx @ [facility] 11/09/2017 PTCA-Cutting Balloon Atherectomy w/ placement of 2.5 x 20 mm Synergy Stent, Distal LM-into the Ostium of LAD Stented w/ 4.0 x 16 mm Synergy Stent 2016PTCA-OM 04/2017 PCI-LAD with a 2.75x38 Promus Premier drug eluting stent. 12/15/13 RAYMON of Right Posterior Lateral (Mid) wIth 3.0 x 2.8 Cypher, followed upstream with 3.0 x 8 Cypher, RAYMON of Right PDA (Ostial) with 25 x 28 Cypher 09/17/2007 Pancytopenia (Chronic) Hypertension (Chronic) Hypothyroidism (Chronic) Hyperlipidemia (Chronic) Diabetes mellitus, type II (Chronic) Venous insufficiency (Chronic) CHF (congestive heart failure) (Chronic) NSTEMI (non-ST elevated myocardial infarction) (Chronic ~09/16/17) Intermittent claudication (Chronic) Tricuspid valve insufficiency (Chronic) Mitral valve insufficiency (Chronic) Obesity (BMI 30.0-34.9) (Chronic) Hospital Course and Treatment Imaging Results: Clinical Impression(s) from Imaging Studies Chest X-Ray 02/01/18 23:30 IMPRESSION: No acute cardiopulmonary abnormalities. Diffuse coarse interstitial opacities likely represent fibrosis. Electronically Signed: Aziza Holland MD at 0:22 EDT Tel Direct: [phone], Service support , Dr. Foster, cardiology. Operations: None Procedures: EKG Summary of Care Provided: Patient seen and examined on the day of the transfer. She mentioned that her chest pain is improved but still having some chest soreness as she described it denies shortness of breath today. Her vital signs are stable. - Physical Exam General: Alert, Oriented x3, Cooperative, No apparent distress. HEENT: Atraumatic, PERRLA, EOMI. Neck: Supple, No JVD, Negative Carotid Bruits, Trachea Midline, Thyroid Normal. Lungs: Decreased breath sounds bilateral, bilateral basal crackles, no rhonchi or wheezes.. Cardiovascular: Regular rate, Regular Rhythm, Normal S1, Normal S2, PMI Normal. Abdomen: Bowel Sounds Present, Soft, Non Tender, Non-Distended, No Hepato- splenomegaly. Extremities: No clubbing, No cyanosis, No edema Skin: No rashes, No breakdown Neurological: Neuro grossly intact Vital Signs are stable. Hospital course: The patient is a 77 year old F admitted because of chest pain and she was found to have acute non-ST elevation CT. An EKG revealed deep ST segment depression in leads V4, V5 and V6 and those changes are new compared to her previous EKG. Her troponin was elevated and went up to 8.18. On November,, patient was admitted because of chest pain and she underwent cardiac catheterization that revealed 30% in-stent stenotic area of the left anterior descending artery, ostium of the circumflex artery had 95% stenotic lesion, proximal 60% and distal 70% stenosis of the circumflex artery and at that time, she was transferred to [facility] for further evaluation. She underwent angioplasty without stenting at [facility]. She was treated with aspirin, Plavix, therapeutic Lovenox twice daily, Coreg, isosorbide mononitrate and losartan. Her vital signs were stable. Her routine blood work was remarkable for chronic anemia, otherwise normal. Cardiology consulted and recommended to transfer patient to [facility] for further treatment. I spoke with the [facility] transfer line, arrangement was made for the patient to be transferred to [facility] for further management. Patient transferred to [facility] in a stable medical condition. Home Medications: Medications to take at Discharge Aspirin [Aspirin, Baby] 81 mg PO DAILY@0800 06/30/17 Carvedilol [Coreg] 12.5 mg PO BIDCM 06/30/17 Clopidogrel Bisulfate [Clopidogrel] 75 mg PO DAILY 06/30/17 Insulin Glargine,Hum.rec.anlog [[place]o Solostmarisabel] 30 unit SQ DAILY 06/30/17 Insulin Regular, Human [Humulin R] 8 unit SQ TIDCM 06/30/17 Losartan Potassium [Cozaar] 50 mg PO DAILY 06/30/17 Nitroglycerin [Nitrostat] 0.4 mg SL PRN PRN 06/30/17 Pravastatin [Pravachol] 80 mg PO DAILY 06/30/17 potassium chloride ER 8 mEq tablet,extended release 8 meq PO DAILY #90 tab 10/02 Ascorbic Acid [Vitamin C] 1,000 mg PO DAILY 11/03/17 Cholecalciferol (Vitamin D3) [Vitamin D3] 5,000 unit PO DAILY 11/03/17 Folic Acid 0.4 mg PO DAILY@0800 11/03/17 Multivitamin [Multiple Vitamins] 1 tablet PO DAILY 11/03/17 furosemide 40 mg tablet 40 mg PO BID tab 11/19/17 olanzapine 5 mg tablet 5 mg PO QHS tab 11/19/17 ranolazine ER 1,000 mg tablet,extended release,12 hr 1,000 mg PO Q12H tab 11/30 Isosorbide Mononitrate [Isosorbide Mononitrate ER] 60 mg PO BID 02/01/18 Levothyroxine Sodium [Synthroid] 125 mcg PO DAILY 02/01/18 Multivitamins,Therapeutic [Multivitamin] 1 tablet PO DAILY 02/01/18 Albuterol Inhaler [Ventolin Hfa (SP)] 2 puff INHALATION PRN PRN 02/02/18 Primary Care Physician: Diana Cohen MD [Primary Care Provider] - Disposition: Acute care Hospital Minutes spent on discharge:: 32 Patient Condition:: Guarded Medical Necessity - Tobacco Use Smoking Status: Never smoker Tobacco Use: Non-smoker Meaningful Use Info Meaningful Use Diagnoses (Choose all that apply): None applicable
== END 2018-02-03 07:39 | disposition short-term general hospital (02) | DRG 280 ==
LOC: ED 23:23 → PCU 02-02 01:24
PROVIDERS: Admitting Provider Internal Medicine; Emergency Provider Emergency Medicine; Family Provider Internal Medicine; PCP Internal Medicine; Visit Provider Hospitalist
DX: I21.4 Non-ST elevation (NSTEMI) myocardial infarction (principal); I50.33 Acute on chronic diastolic (congestive) heart failure; D61.818 Other pancytopenia; F20.9 Schizophrenia, unspecified; I11.0 Hypertensive heart disease with heart failure; E66.9 Obesity, unspecified; Z68.30 Body mass index [BMI] 30.0-30.9, adult; E78.5 Hyperlipidemia, unspecified; E03.9 Hypothyroidism, unspecified; I87.2 Venous insufficiency (chronic) (peripheral); E11.9 Type 2 diabetes mellitus without complications; Z95.5 Presence of coronary angioplasty implant and graft; Z79.4 Long term (current) use of insulin; Z82.49 Family history of ischemic heart disease and other diseases of the circulatory system; I25.10 Atherosclerotic heart disease of native coronary artery without angina pectoris; I35.0 Nonrheumatic aortic (valve) stenosis; I08.1 Rheumatic disorders of both mitral and tricuspid valves
CPT/HCPCS: 36415; 71045; 80048; 82962; 83540; 83550; 83880; 84484; 85025; 93005; 93306; 94002; 94003; 99285; J7030; A4216

== ENCOUNTER 2018-02-24 19:48 | Emergency (ER) | payer MEDICARE, MEDICAID, SELFPAY ==
[2018-02-24] VITALS (9 sets, daily range): BP systolic 93–144; BP diastolic 40–87; PULSE 54–78; RESP 12–18; TEMP 36.6; O2SAT 97–99; BMI 31.8
--- NOTE | 2018-02-24 20:04 | EKG12_ITS ---
Test Reason : CP Blood Pressure : / mmHG Vent. Rate : 074 BPM Atrial Rate : 074 BPM P-R Int : 180 ms QRS Dur : 088 ms QT Int : 438 ms P-R-T Axes : 054 -05 090 degrees QTc Int : 486 ms Normal sinus rhythm Left ventricular hypertrophy Nonspecific ST and T wave abnormality Abnormal ECG Confirmed by JUAN ALBERTO CHEW, RC ([id number]), science editor THAD HOOKER ([id number] on 02/26/2018 1:13:01 PM Referred By: RADHA/SRAVANI Confirmed By:RC AVENDANO MD
--- NOTE | 2018-02-24 20:04 | RAD_ITS ---
STUDY: X-RAY CHEST REASON FOR EXAM: Female, 77 years old. Chest pain TECHNIQUE: Single AP portable view of the chest. COMPARISON: Prior study of 02/01/2018 FINDINGS: pvc monitor leads are present. The lungs are clear and expanded. There is no demonstrated pleural abnormality. Normal size heart. Normal mediastinum and rell. There has been interval resolution of CHF noted on the previous study. Normal visualized aortic arch and descending thoracic aorta. There are diffuse degenerative changes of the visualized thoracic spine. Normal visualized ribs, clavicles, and shoulders. There is no demonstrated abnormality of the visualized soft tissue structures of the upper abdomen. RAD/Chest 1 View (Portable) IMPRESSION: Degenerative changes of the thoracic spine. No acute cardiopulmonary disease process is seen. There has been interval resolution of CHF noted on the previous study. Electronically Signed: Paul Barrow MD at 20:44 EDT , Service support ,
--- NOTE | 2018-02-24 20:04 | ED.RN ---
CALLED FOR EKG PER RN REQUEST, PULLED OLD EKG'S FOR
[2018-02-24] MEDS: Morphine 4 MG/ML Syringe IV ×2 (20:46→22:34)
[2018-02-24] MEDS: Ondansetron 4 MG/2 ML Vial IV (20:47)
[2018-02-24 20:48] LABS: Absolute Lymphocyte Count 0.89 X10^3/ul (0.83-4.51); Absolute Neutrophil Count 1.4 X10^3/uL (2.0-7.7); Basophil# 0.02 X10^3/uL; Basophil% 0.8 % (0-1); Eosinophil# 0.06 X10^3/uL; Eosinophils% 2.4 % (0-5); Hematocrit 29.2 % (37-47); Hemoglobin 9.6 g/dl (12.0-15.0); Lymphocyte # 0.89 X10^3/ul (4.0); Lymphocyte % 36.3 % (19-41); Mean Corp Hgb Conc 32.9 g/gl (32-36); Mean Corpuscular Volume 91.3 fL (81-99); Mean Platelet Vol. 9.6 fl (6.2-12.0); Monocyte# 0.07 X10^3/uL; Monocyte% 2.9 % (0-10); Neutrophil # 1.41 X10^3/uL (2.7-7.7); Neutrophil % 57.6 % (47-70); POSITIVE COUNT NO; POSITIVE DIFFERENTIAL NO; POSITIVE MORPHOLOGY NO; Platelet Count 128 K/mm3 (150-450); RBC Distribution Width CV 15.1 % (11.6-14.6); RBC Distribution Width SD 50.4 fl (35.1-43.9); White Blood Count 2.5 K/mm3 (4.4-11.0)
[2018-02-24 20:57] LABS: Anion Gap 8 (5-15); BUN 16 mg/dL (7-18); Calcium,Total 8.5 mg/dL (8.5-10.1); Chloride 109 mmol/L (98-107); Creatinine, Serum 0.84 mg/dL (0.55-1.02); EST Glomerular Filtration Rate 69 mL/min (>60); Est Glom Filt Rate - Afr Amer 84 mL/min (>60); Estimated Creatinine Clearance 53.68 ml/min; Glucose 234 mg/dL (74-106); Potassium 3.9 mmol/L (3.5-5.1); Sodium Level 142 mmol/L (136-145)
--- NOTE | 2018-02-24 21:12 | ED.VISSUMM ---
- ER Visit Summary Date of Service: 02/24/18 Chief Complaint: Chest pain History of Present Illness: The patient is a 77 F who presents with chest pain. It is been occurring intermittently for the past 1 week. It can last hours at a time. Her current episode of pain began about 2 hours prior to presentation. She describes this as in the left side of the chest rated at 7 out of 10. She does report sweats nausea and shortness of breath. She also complains of numbness in her fingertips. She was recently admitted to this facility in January. She has high risk disease and had a ostial circumflex stenosis as well as in-stent stenosis and was felt to be high risk so was transferred to [facility]. She had a laser atherectomy. Physical Examination: Afebrile vitals are stable Moist mucous members Heart regular rate and rhythm Lungs clear Abdomen soft 2+ radial pulses Alert Test Results: EKG shows sinus rhythm at a rate of [address] depression in leads I and aVL. She has ST depression in leads V3 through V6. Overall this appears similar to prior. Labs notable for pancytopenia which has been seen on prior labs. Troponin is 0.183. Chest x-ray shows no acute process. Emergency Department Course and Treatment: Patient was given aspirin, sublingual nitroglycerin, morphine and Zofran here for symptomatic treatment. She does have an elevated troponin. I spoke to Dr. Malik who was familiar with the patient. Given that she is high risk felt that she should be transferred back to [facility]. Treatment Plan: [] Disposition: Transfer Impression: Chest pain Elevated troponin This note was generated with [employer] dictation software. It may contain incorrect words, spelling, and punctuation that were not noted in review of the chart prior to signing ED Disposition - Plan for ED Patient: Chief Complaint: Chest Pain Referrals: Diana Cohen MD [Primary Care Provider] -
--- NOTE | 2018-02-24 21:15 | ED.DCSUM_ITS ---
- ER Visit Summary Date of Service: 02/24/18 Chief Complaint: Chest pain History of Present Illness: The patient is a 77 F who presents with chest pain. It is been occurring intermittently for the past 1 week. It can last hours at a time. Her current episode of pain began about 2 hours prior to presentation. She describes this as in the left side of the chest rated at 7 out of 10. She does report sweats nausea and shortness of breath. She also complains of numbness in her fingertips. She was recently admitted to this facility in January. She has high risk disease and had a ostial circumflex stenosis as well as in-stent stenosis and was felt to be high risk so was transferred to [facility]. She had a laser atherectomy. Physical Examination: Afebrile vitals are stable Moist mucous members Heart regular rate and rhythm Lungs clear Abdomen soft 2+ radial pulses Alert Test Results: EKG shows sinus rhythm at a rate of [address] depression in leads I and aVL. She has ST depression in leads V3 through V6. Overall this appears similar to prior. Labs notable for pancytopenia which has been seen on prior labs. Troponin is 0.183. Chest x-ray shows no acute process. Emergency Department Course and Treatment: Patient was given aspirin, sublingual nitroglycerin, morphine and Zofran here for symptomatic treatment. She does have an elevated troponin. I spoke to Dr. Malik who was familiar with the patient. Given that she is high risk felt that she should be transferred back to [facility]. Treatment Plan: [] Disposition: Transfer Impression: Chest pain Elevated troponin This note was generated with [employer] dictation software. It may contain incorrect words, spelling, and punctuation that were not noted in review of the chart prior to signing ED Disposition - Plan for ED Patient: Chief Complaint: Chest Pain Referrals: Diana Cohen MD [Primary Care Provider] -
== END 2018-02-24 23:57 | disposition short-term general hospital (02) ==
PROVIDERS: Emergency Provider Emergency Medicine; Family Provider Internal Medicine; PCP Internal Medicine
DX: R07.9 Chest pain, unspecified (principal); R79.89 Other specified abnormal findings of blood chemistry; I25.10 Atherosclerotic heart disease of native coronary artery without angina pectoris; I25.2 Old myocardial infarction; I11.0 Hypertensive heart disease with heart failure; I50.9 Heart failure, unspecified; E11.9 Type 2 diabetes mellitus without complications; E78.00 Pure hypercholesterolemia, unspecified; E03.9 Hypothyroidism, unspecified; Z95.5 Presence of coronary angioplasty implant and graft; Z79.4 Long term (current) use of insulin; Z79.82 Long term (current) use of aspirin; Z79.899 Other long term (current) drug therapy
CPT/HCPCS: 71045; 80048; 84484; 85025; 93005; 96374; 96375; 96376; 99285; A4216; J2405

== ENCOUNTER 2018-06-21 17:15 | Inpatient (IN) | payer MEDICARE, MEDICAID, SELFPAY ==
[2018-06-21] VITALS (9 sets, daily range): BP systolic 149–189; BP diastolic 54–72; PULSE 61–69; RESP 12–20; TEMP 36.6–37.3; O2SAT 96–100; BMI 29.5; BMI 30.4; BMI 30.5
--- NOTE | 2018-06-21 17:18 | NURSING ---
NO OLD EKGS
--- NOTE | 2018-06-21 17:47 | EKG12_ITS ---
Test Reason : CP Blood Pressure : / mmHG Vent. Rate : 069 BPM Atrial Rate : 069 BPM P-R Int : 176 ms QRS Dur : 088 ms QT Int : 410 ms P-R-T Axes : 059 -09 056 degrees QTc Int : 439 ms Normal sinus rhythm Left ventricular hypertrophy with repolarization abnormality Abnormal ECG Confirmed by SILVINA CHEW, NILSON ([id number]), supervising film or videotape editor THAD HOOKER ([id number]) on 06/26/2018 11:38:50 AM Referred By: NIHARIKA Confirmed By:NILSON COOL MD
[2018-06-21] MEDS: Aspirin 81 MG TAB.CHEW 324 MG PO (17:57)
--- NOTE | 2018-06-21 18:05 | RAD_ITS ---
STUDY: X-RAY CHEST REASON FOR EXAM: Female, 78 years old. Chest pain TECHNIQUE: Frontal view of the chest COMPARISON: 02/24/2018 FINDINGS: The lungs are clear. There are no pleural effusions. There is no pneumothorax. The heart is normal in size. The visualized osseous structures are within normal limits. RAD/Chest 1 View (Portable) IMPRESSION: No acute thoracic pathology. Electronically Signed: Roge Win, at 18:35 EST Tel , Service support ,
[2018-06-21 18:06] LABS: Absolute Lymphocyte Count 1.21 X10^3/ul (0.83-4.51); Basophil# 0.02 X10^3/uL; Basophil% 0.6 % (0-1); Eosinophil# 0.13 X10^3/uL; Eosinophils% 3.7 % (0-5); Hematocrit 32.7 % (37-47); Hemoglobin 10.6 g/dl (12.0-15.0); Lymphocyte # 1.21 X10^3/ul (4.0); Lymphocyte % 34.6 % (19-41); Mean Corp Hgb Conc 32.4 g/gl (32-36); Mean Corpuscular Hgb 30.5 pg (27.0-32.0); Mean Platelet Vol. 9.8 fl (6.2-12.0); Monocyte# 0.12 X10^3/uL; Monocyte% 3.4 % (0-10); Neutrophil # 2.02 X10^3/uL (2.7-7.7); Neutrophil % 57.7 % (47-70); Platelet Count 134 K/mm3 (150-450); RBC Distribution Width SD 47.8 fl (35.1-43.9); Red Blood Count 3.48 M/mm3 (4.2-5.4); White Blood Count 3.5 K/mm3 (4.4-11.0)
[2018-06-21 18:08] LABS: POSITIVE COUNT NO; POSITIVE DIFFERENTIAL NO; POSITIVE MORPHOLOGY NO
[2018-06-21 18:26] LABS: Anion Gap 4 (5-15); BUN 18 mg/dL (7-18); BUN/Creat Ratio 21.1 RATIO (10-20); Chloride 106 mmol/L (98-107); Creatinine, Serum 0.86 mg/dL (0.55-1.02); EST Glomerular Filtration Rate 68 mL/min (>60); Est Glom Filt Rate - Afr Amer 82 mL/min (>60); Estimated Creatinine Clearance 51.58 ml/min; Glucose 295 mg/dL (74-106); Potassium 3.9 mmol/L (3.5-5.1); Sodium Level 140 mmol/L (136-145)
[2018-06-21 18:34] LABS: BNP,B-Type NATRIURETIC PEPTIDE 112.8 pg/mL (0-100)
--- NOTE | 2018-06-21 19:14 | ED.VISSUMM ---
- ER Visit Summary Date of Service: 06/21/18 Chief Complaint: Chest pain History of Present Illness: The patient is a 78 F with substernal chest pain and right-sided chest pain that started today. Patient has some mild shortness of breath with this and was worried she had a pneumonia. She denies any fevers or sputum. She denies any history of PE. She does have an extensive history of coronary disease and had similar chest pain in the past with MIs. She is taking her medications faithfully. She had a cardiac catheterization in February of this year with diffuse coronary disease. They advised aggressive medical management. Physical Examination: Hypertensive but otherwise vitals unremarkable. Afebrile. No acute distress. Heart regular rate and rhythm. Lungs clear except for mild rales in the right base. Abdomen soft. Pulses strong and equal. Calf soft and supple. Test Results: EKG showed diffuse ST depression, mild, slightly worsening since February of this year. No sign of infarction. White count 3.5 and hemoglobin 10.6, stable. Troponin indeterminate, not new. BNP 112. Chest x-ray showed no acute findings. Emergency Department Course and Treatment: Patient received aspirin and was placed on the monitor. I reviewed her old records. I spoke with Dr. Morgan who advised that she may benefit from increased carvedilol to 25 mg twice daily if her blood pressure will tolerate. He advised admission for rule out ACS. I spoke with the hospitalist who will admit for observation. Treatment Plan: As above Disposition: Admission Impression: 1. Chest pain This note was generated with [employer] dictation software. It may contain incorrect words, spelling, and punctuation that were not noted in review of the chart prior to signing ED Disposition - Plan for ED Patient: Chief Complaint: Chest Pain Referrals: Diana Cohen MD [Primary Care Provider] -
--- NOTE | 2018-06-21 19:20 | PCM.HP.STD ---
Problem List (1) Chest pain Status: Acute Qualifiers: Chest pain type: unspecified Qualified Code(s): R07.9 - Chest pain, unspecified (2) Non-rheumatic aortic stenosis Status: Chronic (3) History of coronary artery stent placement Status: Chronic Comment: PTCA-ostail/prox LCx @ [facility] 11/09/2017 PTCA-Cutting Balloon Atherectomy w/ placement of 2.5 x 20 mm Synergy Stent, Distal LM-into the Ostium of LAD Stented w/ 4.0 x 16 mm Synergy Stent 06/2017PTCA-OM 04/2017 PCI-LAD with a 2.75x38 Promus Premier drug eluting stent. 12/15/13 RAYMON of Right Posterior Lateral (Mid) wIth 3.0 x 2.8 Cypher, followed upstream with 3.0 x 8 Cypher, RAYMON of Right PDA (Ostial) with 25 x 28 Cypher 09/17/2007 (4) Chronic systolic (congestive) heart failure Status: Chronic (5) Schizophrenia Status: Chronic Qualifiers: Schizophrenia type: unspecified Qualified Code(s): F20.9 - Schizophrenia, unspecified (6) Hypertension Status: Chronic Qualifiers: Hypertension type: essential hypertension Qualified Code(s): I10 - Essential (primary) hypertension (7) Hypothyroidism Status: Chronic Qualifiers: Hypothyroidism type: unspecified (8) Hyperlipidemia Status: Chronic Qualifiers: Hyperlipidemia type: unspecified Qualified Code(s): E78.5 - Hyperlipidemia, unspecified (9) Diabetes mellitus, type II Status: Chronic Qualifiers: 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: with skilled nursing use Diabetes mellitus complication status: with unspecified complications Qualified Code(s): E11.8 - Type 2 diabetes mellitus with unspecified complications; 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 She states that she has had this chest pain but she has been ignoring it. It comes and goes. In the last few days chest pain is not relieved with nitro. Denies any diaphoresis or dizziness or palpitations or orthopnea or PND. Vitals in the ED, temperature of 99.2F, heart rate of 68, blood pressure 149/57, respiratory rate of 18, SPO2 is 98% on room air. Admitting blood work showed WBC count of 3.5, hemoglobin 10.6, platelet count 134, BMP was unremarkable except for elevated blood sugar of 295, troponin was 0.096. Her admitting EKG was unchanged from previous, no acute ST-T changes, showed diffuse T wave inversion which is no new Past Medical History Past Medical History (Chronic Problems): Chronic Problems (Last Reviewed 04/05/18 @ 13:48 by Genet Barger) History of spinal fusion (Chronic) anterior Non-rheumatic aortic stenosis (Chronic) History of coronary artery stent placement (Chronic) PTCA-ostail/prox LCx @ [facility] 11/09/2017 PTCA-Cutting Balloon Atherectomy w/ placement of 2.5 x 20 mm Synergy Stent, Distal LM-into the Ostium of LAD Stented w/ 4.0 x 16 mm Synergy Stent 06/2017PTCA-OM 04/2017 PCI-LAD with a 2.75x38 Promus Premier drug eluting stent. 12/15/13 RAYMON of Right Posterior Lateral (Mid) wIth 3.0 x 2.8 Cypher, followed upstream with 3.0 x 8 Cypher, RAYMON of Right PDA (Ostial) with 25 x 28 Cypher 09/17/2007 Chronic systolic (congestive) heart failure (Chronic) Schizophrenia (Chronic) S/P PTCA (percutaneous transluminal coronary angioplasty) (Chronic ~11/09/17) PCI PTCA and laser atherectomy of proximal Circumflex 02/03/2018 PTCA-ostial/prox LCx @ [facility] 11/09/2017 PTCA-Cutting Balloon Atherectomy w/ placement of 2.5 x 20 mm Synergy Stent, Distal LM-into the Ostium of LAD Stented w/ 4.0 x 16 mm Synergy Stent 06/2017PTCA-OM 04/2017 PCI-LAD with a 2.75x38 Promus Premier drug eluting stent. 12/15/13 RAYMON of Right Posterior Lateral (Mid) wIth 3.0 x 2.8 Cypher, followed upstream with 3.0 x 8 Cypher, RAYMON of Right PDA (Ostial) with 25 x 28 Cypher 09/17/2007 History of coronary artery stent placement (Chronic) Atherosclerotic heart disease [place] coronary artery w/angina pectoris (Chronic) PCI PTCA and laser atherectomy of proximal Circumflex 02/03/2018 PTCA-ostail/prox LCx @ [facility] 11/09/2017 PTCA-Cutting Balloon Atherectomy w/ placement of 2.5 x 20 mm Synergy Stent, Distal LM-into the Ostium of LAD Stented w/ 4.0 x 16 mm Synergy Stent 06/2017PTCA- 04/2017 PCI-LAD with a 2.75x38 Promus Premier drug eluting stent. 12/15/13 RAYMON of Right Posterior Lateral (Mid) wIth 3.0 x 2.8 Cypher, followed upstream with 3.0 x 8 Cypher, RAYMON of Right PDA (Ostial) with 25 x 28 Cypher 09/17/2007 Pancytopenia (Chronic) Hypertension (Chronic) Hypothyroidism (Chronic) Hyperlipidemia (Chronic) Diabetes mellitus, type II (Chronic) Venous insufficiency (Chronic) CHF (congestive heart failure) (Chronic) NSTEMI (non-ST elevated myocardial infarction) (Chronic ~09/16/17) Intermittent claudication (Chronic) Tricuspid valve insufficiency (Chronic) Mitral valve insufficiency (Chronic) Obesity (BMI 30.0-34.9) (Chronic) Medical History: Medical History (Last Reviewed 04/05/18 @ 13:48 by Genet Barger) Non-rheumatic aortic stenosis (Chronic) I35.0 Chronic systolic (congestive) heart failure (Chronic) I50.22 Schizophrenia (Chronic) F20.9 Atherosclerotic heart disease [place] coronary artery w/angina pectoris (Chronic) I25.119 PCI PTCA and laser atherectomy of proximal Circumflex 02/03/2018 PTCA-ostail/prox LCx @ [facility] 11/09/2017 PTCA-Cutting Balloon Atherectomy w/ placement of 2.5 x 20 mm Synergy Stent, Distal LM-into the Ostium of LAD Stented w/ 4.0 x 16 mm Synergy Stent 06/2017PTCA- 04/2017 PCI-LAD with a 2.75x38 Promus Premier drug eluting stent. 12/15/13 RAYMON of Right Posterior Lateral (Mid) wIth 3.0 x 2.8 Cypher, followed upstream with 3.0 x 8 Cypher, RAYMON of Right PDA (Ostial) with 25 x 28 Cypher 09/17/2007 Pancytopenia (Chronic) D61.818 Hypertension (Chronic) I10 Hypothyroidism (Chronic) E03.9 Hyperlipidemia (Chronic) E78.5 Diabetes mellitus, type II (Chronic) E11.9 Venous insufficiency (Chronic) CHF (congestive heart failure) (Chronic) I50.9 NSTEMI (non-ST elevated myocardial infarction) (Chronic) Onset Date: ~09/16/17 I21.4 Intermittent claudication (Chronic) I73.9 Tricuspid valve insufficiency (Chronic) I07.1 Mitral valve insufficiency (Chronic) I34.0 Obesity (BMI 30.0-34.9) (Chronic) E66.9 Anemia D64.[address] Joyce 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) K75.81, K74.60 Allergies atorvastatin calcium [From Lipitor] Adverse Reaction (Verified 06/21/18 17:15) Unknown rosiglitazone maleate [From Avandia] Adverse Reaction (Verified 06/21/18 17:15) Other Home Medications: Ambulatory Orders Medication Instructions Recorded Aspirin [Aspirin, Baby] 81 mg PO DAILY@0800 06/30/17 Nitroglycerin [Nitrostat] 0.4 mg SL PRN PRN 06/30/17 Pravastatin [Pravachol] 80 mg PO DAILY 06/30/17 Folic Acid 1 mg PO DAILY@0800 11/03/17 furosemide 40 mg tablet 40 mg PO BID tab 11/19/17 Multivitamins,Therapeutic 1 tab PO DAILY 02/01/18 [Multivitamin] Albuterol Inhaler [Ventolin Hfa 2 puff INHALATION PRN PRN 02/02/18 (SP)] Ticagrelor [Brilinta] 90 mg PO BID 02/24/18 isosorbide mononitrate ER 60 mg 60 mg PO QDAY tab 03/01/18 tablet,extended release 24 hr ranolazine ER 1,000 mg 500 mg PO Q12H tab 03/01/18 tablet,extended release,12 hr carvedilol 12.5 mg tablet 6.25 mg PO BID 04/05/18 losartan 50 mg tablet 50 mg PO DAILY #90 tab 04/05/18 amlodipine 5 mg tablet 2.5 mg PO QDAY tab 04/30/18 insulin glargine (U-300) conc. 300 30 unit SC DAILY ml 04/30/18 unit/mL (3 mL) subcutaneous pen levothyroxine 175 mcg tablet 175 mcg PO DAILY 04/30/18 tramadol 50 mg tablet 50 mg PO Q6H PRN 04/30/18 Cholecalciferol (Vitamin D3) 1,000 unit PO DAILY 06/21/18 [Vitamin D3] Insulin Regular, Human [Humulin R] 8 units SQ TID 06/21/18 Levothyroxine Sodium [Synthroid] 100 mcg PO DAILY 06/21/18 Surgical History: Surgical History (Last Reviewed 04/05/18 @ 13:48 by Genet Barger) History of spinal fusion (Chronic) Z98.1 anterior History of coronary artery stent placement (Chronic) Z95.5 PTCA-ostail/prox LCx @ [facility] 11/09/2017 PTCA-Cutting Balloon Atherectomy w/ placement of 2.5 x 20 mm Synergy Stent, Distal LM-into the Ostium of LAD Stented w/ 4.0 x 16 mm Synergy Stent 06/2017[facility] 04/2017 PCI-LAD with a 2.75x38 Promus Premier drug eluting stent. 12/15/13 RAYMON of Right Posterior Lateral (Mid) wIth 3.0 x 2.8 Cypher, followed upstream with 3.0 x 8 Cypher, RAYMON of Right PDA (Ostial) with 25 x 28 Cypher 09/17/2007 S/P PTCA (percutaneous transluminal coronary angioplasty) (Chronic) Onset Date: ~11/09/17 Z98.61 PCI PTCA and laser atherectomy of proximal Circumflex 02/03/2018 PTCA-ostial/prox LCx @ [facility] 11/09/2017 PTCA-Cutting Balloon Atherectomy w/ placement of 2.5 x 20 mm Synergy Stent, Distal LM-into the Ostium of LAD Stented w/ 4.0 x 16 mm Synergy Stent 06/2017PTCA- 04/2017 PCI-LAD with a 2.75x38 Promus Premier drug eluting stent. 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 Denies: Anorexia, Chills, Fever, Malaise, Weight Change Eyes: Denies: Blurred vision, Conjunctivae Inflammation, Pain HEENT: Denies: Difficulty Hearing, Difficulty Swallowing, Head Aches, Hearing Changes, Nasal bleeding, Sinus Congestion, Sinus Drainage Cardiovascular: Reports: Chest Pain, Chest Pressure, Chest Tightness. Denies: Claudication, Orthopnea, Palpitations, Paroxysmal Noc. Dyspnea Respiratory: Denies: Cough, Hemoptysis, Pleuritic Pain, Shortness of breath at rest, Shortness of breath upon exertion, Sputum production, Wheezing Gastrointestinal: Denies: Abdominal Pain, Hematemesis, Hematochezia, Nausea, Vomiting Genitourinary: Denies: Dysuria, Frequency, Incontinence Musculoskeletal: Denies: Joint Pain, Joint Tenderness Skin: Denies: Rash, Wounds Neurological: Denies: Difficulty swallowing, Focal weakness, Numbness, Tingling Psychiatric: Denies: Anxiety, Depression, Homicidal Ideations, Suicidal Ideations Hematologic/ Lymphatic: Denies: Easy Bruising, Easy Bleeding VTE Information - Inpt Only VTE Present on Admission: No VTE Pharm Prophylaxis ordered?: Yes - Physical Exam General: Alert, Oriented x3, Cooperative, No apparent distress, - - on 2L oxygen HEENT: Atraumatic, PERRLA, EOMI, Normocephalic Oral: Moist Mucosa Neck: Supple, No JVD, Negative Carotid Bruits Lungs: Clear to auscultation, Normal air movement Cardiovascular: Regular rate, Regular Rhythm, Normal S1, Normal S2, No murmurs, - - Tenderness over anterior chest wall Abdomen: Bowel Sounds Present, Soft, Non Tender, Non-Distended, No Hepato-splenomegaly Extremities: No edema Skin: No rashes, No breakdown Musculoskeletal: No Tenderness to Palpation of Joints or Extremities Lymphatic: No Cervical, Supraclavicular, or Inguinal Adenopathy Neurological: Cranial nerves II-XII grossly intact, Neuro grossly intact Psych/Mental Status: Normal Affect, Appropriate Vital Signs Temp Pulse Resp BP Pulse Ox 99.2 F H 63 12 162/59 H 100 06/21/18 17:16 18 18:24 06/21/18 18:24 06/21/18 18:24 06/21/18 18:24 Oxygen Flow Rate (L/min) 2 Oxygen Delivery Method Nasal Cannula Weight: 85.4 kg Body Mass Index (BMI) 29.5 Finger Stick Blood Glucose 270 Laboratory Tests Past 24 Hrs 06/21/18 06/21/18 06/21/18 17:30 17:30 17:30 WBC 3.5 L RBC 3.48 L Hgb 10.6 L Hct 32.7 L MCV 94.0 MCH 30.5 MCHC 32.4 RDW 14.0 RDW Differential 47.8 H Plt Count 134 L MPV 9.8 Immature Gran % (Auto) 0.000 Neut % (Auto) 57.7 Lymph % (Auto) 34.6 [place] % (Auto) 3.4 Eos % (Auto) 3.7 Baso % (Auto) 0.6 Absolute Neuts (auto) 2.0 Absolute Lymphs (auto) 1.21 Total Counted Not Reportable Sodium 140 Potassium 3.9 Chloride 106 Carbon Dioxide 30.0 Anion Gap 4 L BUN 18 Creatinine 0.86 Estim Creat Clear Calc 51.58 Est GFR (MDRD) Af Amer 82 Est GFR (MDRD) Non-Af 68 BUN/Creatinine Ratio 21.1 H Glucose 295 H Calcium 9.0 Troponin I 0.096 H B-Natriuretic Peptide 112.8 H Assessment/Plan All Active Problems (Last Reviewed 04/05/18 @ 13:48 by Genet Barger) Chest pain (Acute) Cognitive changes (Resolved) NSTEMI (non-ST elevated myocardial infarction) (Resolved) Unstable angina (Resolved) 78 year old F past medical history of schizophrenia, type II DM, chronic systolic CHF, hypertension, hyperlipidemia, hypothyroidism, CAD status post stent to her ostial/proximal circumflex seen with complaints of chest pain that is across her whole chest but sometimes in the left side ongoing for days. 1. Chest pain, atypical, history of CAD status post stent, no acute ST changes, troponin on admission is indeterminate Plan: Mid to PCU, monitor on telemetry, trend cardiac enzymes, cardiology consult-Dr. Morgan, informed by the ED 2. Hypertension, uncontrolled, will increase carvedilol to 25 mg p.o. twice daily, to to monitor vitals 3. Type 2 DM, on insulin, continue same home regimen, would add Accu-Cheks with insulin sliding scale 4. Hyperlipidemia, on statin, lipid profile in a.m. 5. Hypothyroidism, on levothyroxine 100mcg daily 6. Chronic schizophrenia, not on medications according to med list 7. Chronic systolic CHF, not in acute exacerbation, continue with losartan and Lasix 8. DVT prophylaxis - Lovenox SC Code Visit OBSV E&M: [id number] Initial observation care L3
--- NOTE | 2018-06-21 19:55 | EKG12_ITS ---
Test Reason : CP ADMIT Blood Pressure : / mmHG Vent. Rate : 063 BPM Atrial Rate : 063 BPM P-R Int : 172 ms QRS Dur : 092 ms QT Int : 454 ms P-R-T Axes : 055 000 031 degrees QTc Int : 464 ms Normal sinus rhythm ST & T wave abnormality, consider lateral ischemia Abnormal ECG When compared with ECG of 21-JUN-2018 17:14, MANUAL COMPARISON REQUIRED, DATA IS UNCONFIRMED Confirmed by SILVINA CHEW, NILSON ([id number]), editor news THAD HOOKER ([id number]) on 06/28/2018 2:01:15 PM Referred By: DR SOLORZANO Confirmed By:NILSON COOL MD
[2018-06-21] MEDS: Ranolazine 500 MG Tablet PO (21:50)
[2018-06-21] MEDS: Furosemide 40 MG Tablet PO (21:51)
[2018-06-21] MEDS: Pravastatin 80 MG Tablet PO (21:51)
[2018-06-21] MEDS: TICAGRELOR 90 MG TABLET PO (21:51)
[2018-06-21] MEDS: Carvedilol 25 MG Tablet PO (21:51)
[2018-06-21] MEDS: Insulin Lispro 100 UNIT/ML INSULN.PEN SQ (21:59)
[2018-06-21 22:36] LABS: Bedside Glucose 197 mg/dL (70-110)
[2018-06-21] MEDS: Ipratropium/Albuterol Sulfate 3 ML AMPUL.NEB INHALATION (23:14)
[2018-06-22] VITALS (20 sets, daily range): BP systolic 96–135; BP diastolic 37–51; PULSE 40–64; RESP 14–18; TEMP 36.4–37.1; O2SAT 96–100
[2018-06-22] MEDS: traMADol 50 MG Tablet PO (04:48)
--- NOTE | 2018-06-22 05:46 | EKG12_ITS ---
Test Reason : BRADYCARDIA Blood Pressure : / mmHG Vent. Rate : 047 BPM Atrial Rate : 047 BPM P-R Int : 180 ms QRS Dur : 092 ms QT Int : 564 ms P-R-T Axes : 049 -11 010 degrees QTc Int : 499 ms Sinus bradycardia Left ventricular hypertrophy with repolarization abnormality Prolonged QT Abnormal ECG When compared with ECG of 22-JUN-2018 05:54, MANUAL COMPARISON REQUIRED, DATA IS UNCONFIRMED Confirmed by SILVINA CHEW, NILSON ([id number]), editor city THAD HOOKER ([id number]) on 06/28/2018 2:00:26 PM Referred By: JEANINE Confirmed By:NILSON COOL MD
[2018-06-22] MEDS: Levothyroxine 100 MCG Tablet PO (05:50)
[2018-06-22] MEDS: Ipratropium/Albuterol Sulfate 3 ML AMPUL.NEB INHALATION ×4 (06:43→19:20)
[2018-06-22 06:55] LABS: Bedside Glucose 205 mg/dL (70-110)
[2018-06-22 06:56] LABS: Anion Gap 10 (5-15); BUN 16 mg/dL (7-18); BUN/Creat Ratio 21.3 RATIO (10-20); Calcium,Total 8.4 mg/dL (8.5-10.1); Chloride 105 mmol/L (98-107); Cholesterol 126 mg/dL (200); Creatinine, Serum 0.75 mg/dL (0.55-1.02); EST Glomerular Filtration Rate 79 mL/min (>60); Est Glom Filt Rate - Afr Amer 96 mL/min (>60); Estimated Creatinine Clearance 44.36 ml/min; Glucose 230 mg/dL (74-106); High Density Lipoprotein 55 mg/dL; Potassium 3.4 mmol/L (3.5-5.1); Sodium Level 142 mmol/L (136-145); Triglycerides 73 mg/dL; Very Low Density Lipoprotein 15 mg/dL (5-40)
[2018-06-22] MEDS: Insulin Lispro 100 UNIT/ML INSULN.PEN SQ ×4 (08:34→22:02)
--- NOTE | 2018-06-22 09:55 | PCM.PROGNOTE ---
Subjective: Pt state that she is still having intermittent CP. Reports that exertion makes it worse. Nitro does seem to help. She states that she has also had a dry non-productive cough, runny nose, sneezing and watery eyes. Denies fever or chills. States that she has chronic leg swelling and that her legs look better now than they usually do. Did have LE doppler 2 weeks ago and states that it was negative. - Physical Exam General: Alert, Oriented x3, Cooperative, No apparent distress, Well developed, Well nourished, - - up in a chair and appears comfortable HEENT: Atraumatic, PERRLA, EOMI, Normocephalic, EAC Clear Oral: Moist Mucosa, No Gingival or Mucosal Lesions/ Ulcerations, - - upper dentures in place Neck: Supple, No JVD, Negative Carotid Bruits, No Nodes Lungs: Normal air movement, No rhonchi, No wheeze, - - crackles at bases B Cardiovascular: Regular rate, Regular Rhythm, Normal S1, Normal S2, Murmur - 3/6 SM loudest at R upper sternal border Abdomen: Bowel Sounds Present, Soft, Non Tender, Non-Distended, No Hepato-splenomegaly, Obese, No hernias noted Extremities: No clubbing, No cyanosis, Edema - trace R LE and 1+ L LE, Peripheral Pulses Normal, Tenderness - anterior tibia, calves not tender Skin: No rashes, No breakdown Musculoskeletal: No Tenderness to Palpation of Joints or Extremities, No Muscle Wasting, Arthritic Changes Vital Signs Temp Pulse Resp BP Pulse Ox 98.8 F 57 L 18 105/40 L 96 06/22/18 08:28 06/22/18 08:28 06/22/18 08:28 06/22/18 08:28 06/22/18 08:28 Oxygen Flow Rate (L/min) 2 Oxygen Delivery Method Room Air Weight: 86.772 kg Body Mass Index (BMI) 30.4 Finger Stick Blood Glucose 270 Laboratory Tests Past 24 Hrs 06/21/18 06/21/18 06/21/18 17:30 17:30 17:30 WBC 3.5 L RBC 3.48 L Hgb 10.6 L Hct 32.7 L MCV 94.0 MCH 30.5 MCHC 32.4 RDW 14.0 RDW Differential 47.8 H Plt Count 134 L MPV 9.8 Immature Gran % (Auto) 0.000 Neut % (Auto) 57.7 Lymph % (Auto) 34.6 [place] % (Auto) 3.4 Eos % (Auto) 3.7 Baso % (Auto) 0.6 Absolute Neuts (auto) 2.0 Absolute Lymphs (auto) 1.21 Total Counted Not Reportable Sodium 140 Potassium 3.9 Chloride 106 Carbon Dioxide 30.0 Anion Gap 4 L BUN 18 Creatinine 0.86 Estim Creat Clear Calc 51.58 Est GFR (MDRD) Af Amer 82 Est GFR (MDRD) Non-Af 68 BUN/Creatinine Ratio 21.1 H Glucose 295 H Calcium 9.0 Troponin I 0.096 H B-Natriuretic Peptide 112.8 H Triglycerides Cholesterol LDL Cholesterol VLDL Cholesterol HDL Cholesterol 06/21/18 06/21/18 06/22/18 20:38 23:19 05:15 WBC RBC Hgb Hct MCV MCH MCHC RDW RDW Differential Plt Count MPV Immature Gran % (Auto) Neut % (Auto) Lymph % (Auto) [place] % (Auto) Eos % (Auto) Baso % (Auto) Absolute Neuts (auto) Absolute Lymphs (auto) Total Counted Sodium 142 Potassium 3.4 L Chloride 105 Carbon Dioxide 27.0 Anion Gap 10 BUN 16 Creatinine 0.75 Estim Creat Clear Calc 44.36 Est GFR (MDRD) Af Amer 96 Est GFR (MDRD) Non-Af 79 BUN/Creatinine Ratio 21.3 H Glucose 230 H Calcium 8.4 L Troponin I 0.107 H 0.109 H B-Natriuretic Peptide Triglycerides 73 Cholesterol 126 LDL Cholesterol 56 VLDL Cholesterol 15 HDL Cholesterol 55 POC Glucose 06/22/18 06/21/18 06:41 21:55 POC Glucose 205 H 197 H Medical Necessity - Tobacco Use Smoking Status: Never smoker Tobacco Use: Non-smoker Assessment/Plan All Active Problems (Last Reviewed 04/05/18 @ 13:48 by Genet Barger) Chest pain (Acute) Cognitive changes (Resolved) NSTEMI (non-ST elevated myocardial infarction) (Resolved) Unstable angina (Resolved) 1. CP -no ECG changes -Troponins are elevated slightly and trending up-->cycling -still with intermittent CP--> states Nitro does help -Cards consulted -PCI to prox circ 02/20/NSTEMI 07/22 with RAYMON to distal LM/Angio and rotablade to LAD 2013--> pt states she has had recent cath at [facility] main 2.DM-2 -increase Lantus to 36 units -pt NPO-->SSI -when eating 8 units tid -npo now in case need intervention 3. HFpEF -last EF was 66% -stage 1 diastolic dysfunction 4. HTN/CAD/HPL/PAD -continue Norvasc 2.5 mg daily -continue ASA 81 mg daily -continue Coreg 25 mg BID -continue Imdur 60 mg -continue Losartan 50 mg -continue Pravastatin 80 mg daily -continue Ranolazine 500 mg BID -continue Brilinta 90 mg BID -prn nitro 5. Hypothyroidism -continue home Synthroid 6. CHENEY -aggressive medical mgt 7. Pancytopenia -follow with Dr. Son 8. Obesity -recommend wgt loss -appears that wgt is stable 9. Recent Suicide -documented in Dr. Malik note from 03/23 10. Prolonged Qtc-chronic -521 -electrolyte replacement 11. Hypokalemia -PO Kdur 40 mEq -check am Mag 12. LE Edema -states this is chronic for her and that she has had multiple US in past 13. Dry Cough -non-productive -CXR WNL--> reviewed by me this date and compared to last available film--> stable -new in last few weeks -eliezer blanco -add IS
--- NOTE | 2018-06-22 10:46 | PN_ITS ---
Subjective: Pt state that she is still having intermittent CP. Reports that exertion makes it worse. Nitro does seem to help. She states that she has also had a dry non- productive cough, runny nose, sneezing and watery eyes. Denies fever or chills. States that she has chronic leg swelling and that her legs look better now than they usually do. Did have LE doppler 2 weeks ago and states that it was negative. - Physical Exam General: Alert, Oriented x3, Cooperative, No apparent distress, Well developed, Well nourished, - - up in a chair and appears comfortable HEENT: Atraumatic, PERRLA, EOMI, Normocephalic, EAC Clear Oral: Moist Mucosa, No Gingival or Mucosal Lesions/ Ulcerations, - - upper dentures in place Neck: Supple, No JVD, Negative Carotid Bruits, No Nodes Lungs: Normal air movement, No rhonchi, No wheeze, - - crackles at bases B Cardiovascular: Regular rate, Regular Rhythm, Normal S1, Normal S2, Murmur - 3/6 SM loudest at R upper sternal border Abdomen: Bowel Sounds Present, Soft, Non Tender, Non-Distended, No Hepato- splenomegaly, Obese, No hernias noted Extremities: No clubbing, No cyanosis, Edema - trace R LE and 1+ L LE, Peripheral Pulses Normal, Tenderness - anterior tibia, calves not tender Skin: No rashes, No breakdown Musculoskeletal: No Tenderness to Palpation of Joints or Extremities, No Muscle Wasting, Arthritic Changes Vital Signs Temp Pulse Resp BP Pulse Ox 98.8 F 57 L 18 105/40 L 96 06/22/18 08:28 06/22/18 08:28 06/22/18 08:28 06/22/18 08:28 06/22/18 08:28 Oxygen Flow Rate (L/min) 2 Oxygen Delivery Method Room Air Weight: 86.772 kg Body Mass Index (BMI) 30.4 Finger Stick Blood Glucose 270 Laboratory Tests Past 24 Hrs 06/21/18 06/21/18 06/21/18 17:30 17:30 17:30 WBC 3.5 L RBC 3.48 L Hgb 10.6 L Hct 32.7 L MCV 94.0 MCH 30.5 MCHC 32.4 RDW 14.0 RDW Differential 47.8 H Plt Count 134 L MPV 9.8 Immature Gran % (Auto) 0.000 Neut % (Auto) 57.7 Lymph % (Auto) 34.6 [place] % (Auto) 3.4 Eos % (Auto) 3.7 Baso % (Auto) 0.6 Absolute Neuts (auto) 2.0 Absolute Lymphs (auto) 1.21 Total Counted Not Reportable Sodium 140 Potassium 3.9 Chloride 106 Carbon Dioxide 30.0 Anion Gap 4 L BUN 18 Creatinine 0.86 Estim Creat Clear Calc 51.58 Est GFR (MDRD) Af Amer 82 Est GFR (MDRD) Non-Af 68 BUN/Creatinine Ratio 21.1 H Glucose 295 H Calcium 9.0 Troponin I 0.096 H B-Natriuretic Peptide 112.8 H Triglycerides Cholesterol LDL Cholesterol VLDL Cholesterol HDL Cholesterol 06/21/18 06/21/18 06/22/18 20:38 23:19 05:15 WBC RBC Hgb Hct MCV MCH MCHC RDW RDW Differential Plt Count MPV Immature Gran % (Auto) Neut % (Auto) Lymph % (Auto) [place] % (Auto) Eos % (Auto) Baso % (Auto) Absolute Neuts (auto) Absolute Lymphs (auto) Total Counted Sodium 142 Potassium 3.4 L Chloride 105 Carbon Dioxide 27.0 Anion Gap 10 BUN 16 Creatinine 0.75 Estim Creat Clear Calc 44.36 Est GFR (MDRD) Af Amer 96 Est GFR (MDRD) Non-Af 79 BUN/Creatinine Ratio 21.3 H Glucose 230 H Calcium 8.4 L Troponin I 0.107 H 0.109 H B-Natriuretic Peptide Triglycerides 73 Cholesterol 126 LDL Cholesterol 56 VLDL Cholesterol 15 HDL Cholesterol 55 POC Glucose 06/22/18 06/21/18 06:41 21:55 POC Glucose 205 H 197 H Medical Necessity - Tobacco Use Smoking Status: Never smoker Tobacco Use: Non-smoker Assessment/Plan All Active Problems (Last Reviewed 04/05/18 @ 13:48 by Genet Barger) Chest pain (Acute) Cognitive changes (Resolved) NSTEMI (non-ST elevated myocardial infarction) (Resolved) Unstable angina (Resolved) 1. CP -no ECG changes -Troponins are elevated slightly and trending up-->cycling -still with intermittent CP--> states Nitro does help -Cards consulted -PCI to prox circ 02/20/NSTEMI 07/22 with RAYOMN to distal LM/Angio and rotablade to LAD 2013--> pt states she has had recent cath at [facility] main 2.DM-2 -increase Lantus to 36 units -pt NPO-->SSI -when eating 8 units tid -npo now in case need intervention 3. HFpEF -last EF was 66% -stage 1 diastolic dysfunction 4. HTN/CAD/HPL/PAD -continue Norvasc 2.5 mg daily -continue ASA 81 mg daily -continue Coreg 25 mg BID -continue Imdur 60 mg -continue Losartan 50 mg -continue Pravastatin 80 mg daily -continue Ranolazine 500 mg BID -continue Brilinta 90 mg BID -prn nitro 5. Hypothyroidism -continue home Synthroid 6. CHENEY -aggressive medical mgt 7. Pancytopenia -follow with Dr. Son 8. Obesity -recommend wgt loss -appears that wgt is stable 9. Recent Suicide -documented in Dr. Malik note from 03/23 10. Prolonged Qtc-chronic -521 -electrolyte replacement 11. Hypokalemia -PO Kdur 40 mEq -check am Mag 12. LE Edema -states this is chronic for her and that she has had multiple US in past 13. Dry Cough -non-productive -CXR WNL--> reviewed by me this date and compared to last available film--> stable -new in last few weeks -eliezer blanco -add IS
[2018-06-22] MEDS: Aspirin 81 MG TAB.CHEW PO (11:14)
[2018-06-22] MEDS: Multivitamins,Therapeutic Tablet 1 TABLET PO (11:14)
[2018-06-22] MEDS: Carvedilol 25 MG Tablet PO (11:15)
[2018-06-22] MEDS: TICAGRELOR 90 MG TABLET PO ×2 (11:15→22:01)
[2018-06-22] MEDS: Losartan Potassium 50 MG Tablet PO (11:15)
[2018-06-22] MEDS: Furosemide 40 MG Tablet PO ×2 (11:16→17:44)
[2018-06-22] MEDS: amLODIPine 2.5 MG Tablet PO (11:16)
[2018-06-22] MEDS: Ranolazine 500 MG Tablet PO ×2 (11:16→22:01)
[2018-06-22] MEDS: Isosorbide Mononitrate 60 MG Tablet PO (11:16)
[2018-06-22] MEDS: Enoxaparin 40 MG/0.4 ML Syringe SC (11:19)
[2018-06-22] MEDS: Insulin Lispro 100 UNIT/ML INSULN.PEN 8 UNIT SC ×2 (11:23→16:08)
--- NOTE | 2018-06-22 11:26 | PCM.CONS.C ---
Problem List (1) Chest pain Status: Acute Qualifiers: Chest pain type: unspecified Qualified Code(s): R07.9 - Chest pain, unspecified Reason for Consult Date of Consultation: 06/22/18 History of Present Illness: The patient is a 78 year old F with past medical history significant for schizophrenia and extensive coronary artery disease. He has had multiple cardiac catheterizations in the past with numerous percutaneous interventions. ER physician reported to me that her last heart catheterization was at an outside facility in February of this year. It showed diffuse coronary artery disease and medical management was recommended. According to the patient, she presented at an urgent care center with complaints of right-sided chest discomfort. This was worse with coughing. According to patient, she was worried that she may have pneumonia or even 'tuberculosis'. According to her, she was advised at the urgent care center to go to the emergency room. According to her, they advised her this as they did not have any electricity. Per patient, she also gets some left-sided chest pains. She describes these as sharp, lasting only a second or two. Not related to exertion. Not associated with shortness of breath. She denies any exertional angina. No orthopnea. No PND. No palpitations. [] Past Medical History Allergies/Adverse Reactions: Allergies atorvastatin calcium [From Lipitor] Adverse Reaction (Verified 06/21/18 17:15) Unknown rosiglitazone maleate [From Avandia] Adverse Reaction (Verified 06/21/18 17:15) Other Home Medications: Ambulatory Orders Medication Instructions Recorded Aspirin [Aspirin, Baby] 81 mg PO DAILY@0800 06/30/17 Nitroglycerin [Nitrostat] 0.4 mg SL PRN PRN 06/30/17 Pravastatin [Pravachol] 80 mg PO DAILY 06/30/17 furosemide 40 mg tablet 40 mg PO BID tab 11/19/17 Multivitamins,Therapeutic 1 tab PO DAILY 02/01/18 [Multivitamin] Albuterol Inhaler [Ventolin Hfa 2 puff INHALATION PRN PRN 02/02/18 (SP)] Ticagrelor [Brilinta] 90 mg PO BID 02/24/18 isosorbide mononitrate ER 60 mg 60 mg PO QDAY tab 03/01/18 tablet,extended release 24 hr ranolazine ER 1,000 mg 500 mg PO Q12H tab 03/01/18 tablet,extended release,12 hr carvedilol 12.5 mg tablet 6.25 mg PO BID 04/05/18 losartan 50 mg tablet 50 mg PO DAILY #90 tab 04/05/18 amlodipine 5 mg tablet 2.5 mg PO QDAY tab 04/30/18 insulin glargine (U-300) conc. 300 30 unit SC DAILY ml 04/30/18 unit/mL (3 mL) subcutaneous pen tramadol 50 mg tablet 50 mg PO Q6H PRN 04/30/18 Cholecalciferol (Vitamin D3) 1,000 unit PO DAILY 06/21/18 [Vitamin D3] Insulin Regular, Human [Humulin R] 8 units SQ TID 06/21/18 Levothyroxine Sodium [Synthroid] 100 mcg PO DAILY 06/21/18 Past Medical History (Chronic Problems): Chronic Problems (Last Reviewed 04/05/18 @ 13:48 by Genet Barger) History of spinal fusion (Chronic) anterior Non-rheumatic aortic stenosis (Chronic) History of coronary artery stent placement (Chronic) PTCA-ostail/prox LCx @ [facility] 11/09/2017 PTCA-Cutting Balloon Atherectomy w/ placement of 2.5 x 20 mm Synergy Stent, Distal LM-into the Ostium of LAD Stented w/ 4.0 x 16 [facility]-LAD with a 2.75x38 Promus Premier drug eluting stent. 12/15/13 RAYMON of Right Posterior Lateral (Mid) wIth 3.0 x 2.8 Cypher, followed upstream with 3.0 x 8 Cypher, RAYMON of Right PDA (Ostial) with 25 x 28 Cypher 09/17/2007 Chronic systolic (congestive) heart failure (Chronic) Schizophrenia (Chronic) S/P PTCA (percutaneous transluminal coronary angioplasty) (Chronic ~11/09/17) PCI PTCA and laser atherectomy of proximal Circumflex 02/03/2018 PTCA-ostial/prox LCx @ [facility] 11/09/2017 PTCA-Cutting Balloon Atherectomy w/ placement of 2.5 x 20 mm Synergy Stent, Distal LM-into the Ostium of LAD Stented w/ 4.0 x 16 mm Synergy Stent 06/2017[facility] 04/2017 PCI-LAD with a 2.75x38 Promus Premier drug eluting stent. 12/15/13 RAYMON of Right Posterior Lateral (Mid) wIth 3.0 x 2.8 Cypher, followed upstream with 3.0 x 8 Cypher, RAYMON of Right PDA (Ostial) with 25 x 28 Cypher 09/17/2007 History of coronary artery stent placement (Chronic) Atherosclerotic heart disease [place] coronary artery w/angina pectoris (Chronic) PCI PTCA and laser atherectomy of proximal Circumflex 02/03/2018 PTCA-ostail/prox LCx @ [facility] 11/09/2017 PTCA-Cutting Balloon Atherectomy w/ placement of 2.5 x 20 mm Synergy Stent, Distal LM-into the Ostium of LAD Stented w/ 4.0 x 16 mm Synergy Stent 06/2017[facility] 04/2017 PCI-LAD with a 2.75x38 Promus Premier drug eluting stent. 12/15/13 RAYMON of Right Posterior Lateral (Mid) wIth 3.0 x 2.8 Cypher, followed upstream with 3.0 x 8 Cypher, RAYMON of Right PDA (Ostial) with 25 x 28 Cypher 09/17/2007 Pancytopenia (Chronic) Hypertension (Chronic) Hypothyroidism (Chronic) Hyperlipidemia (Chronic) Diabetes mellitus, type II (Chronic) Venous insufficiency (Chronic) CHF (congestive heart failure) (Chronic) NSTEMI (non-ST elevated myocardial infarction) (Chronic ~09/16/17) Intermittent claudication (Chronic) Tricuspid valve insufficiency (Chronic) Mitral valve insufficiency (Chronic) Obesity (BMI 30.0-34.9) (Chronic) Surgical History: angioplasty, appendectomy, cholecystectomy, tonsillectomy, - - Spinal fusion Psychiatric History: No pertinent psych hx [employer] History: No pertinent [employer] history - *Family History Maternal Family History: Family History (Last Reviewed 04/05/18 @ 13:48 by Genet Barger) Mother CAD (coronary artery disease) Father CAD (coronary artery disease) History Items: Heart Disease - CAD, - - Schizophrenia Paternal Family History: Family History (Last Reviewed 04/05/18 @ 13:48 by Genet Barger) Mother CAD (coronary artery disease) Father CAD (coronary artery disease) History Items: Heart Disease Lives: Alone Smoking Status: Never smoker Tobacco Use: Non-smoker Alcohol: Occasional Drugs: None Review of Systems - Review of Systems General: Denies: Fever, Chills Cardiovascular: Reports: Chest Discomfort - As noted in history of presenting illness. Denies: Shortness of Breath, Orthopnea, PND Gastrointestinal: Denies: Abdominal Discomfort, Hematemesis Neurological: Denies: History of TIA, History of CVA Psychiatric: Reports: - - History of schizophrenia Hematologic/ Lymphatic: Denies: Easy Brusing, Easy Bleeding Subjectve: Comfortable. No apparent distress. Sitting up in a chair Objective: Vital Signs Temp Pulse Resp BP Pulse Ox 98.8 F 57 L 18 105/40 L 96 06/22/18 08:28 06/22/18 08:28 06/22/18 08:28 06/22/18 08:28 06/22/18 08:28 Oxygen Flow Rate (L/min) 2 Oxygen Delivery Method Room Air Weight: 86.772 kg Body Mass Index (BMI) 30.4 Finger Stick Blood Glucose 270 General: Healthy Appearing, Awake, Alert, Oriented x 3, No Acute Distress HEENT: Atraumatic, Normocephalic Oral: Moist Mucosa Neck: No JVD Lungs: Diminished Kilo Bases Cardiovascular: Regular Rhythm, Normal S1, Normal S2 Murmur Murmur: Grade 2/6 - Systolic murmur at base Extremities: No edema Neurological: No Focal Motor or Sensory Deficit Psych/Mental Status: Appropriate 06/21/18 17:30: WBC 3.5 L, RBC 3.48 L, Hgb 10.6 L, Hct 32.7 L, MCV 94.0, MCH 30.5, MCHC 32.4, RDW 14.0, RDW Differential 47.8 H, Plt Count 134 L, MPV 9.8, Immature Gran % (Auto) 0.000, Neut % (Auto) 57.7, Lymph % (Auto) 34.6, [place] % (Auto) 3.4, Eos % (Auto) 3.7, Baso % (Auto) 0.6, Absolute Neuts (auto) 2.0, Total Counted Not Reportable 06/21/18 17:30: Sodium 140, Potassium 3.9, Chloride 106, Carbon Dioxide 30.0, Anion Gap 4 L, BUN 18, Creatinine 0.86, Est GFR (MDRD) Af Amer 82, Est GFR (MDRD) Non-Af 68, BUN/Creatinine Ratio 21.1 H, Glucose 295 H, Calcium 9.0, Troponin I 0.096 H 06/21/18 17:30: B-Natriuretic Peptide 112.8 H 06/21/18 20:38: Troponin I 0.107 H 06/21/18 23:19: Troponin I 0.109 H 06/22/18 05:15: Sodium 142, Potassium 3.4 L, Chloride 105, Carbon Dioxide 27.0, Anion Gap 10, BUN 16, Creatinine 0.75, Est GFR (MDRD) Af Amer 96, Est GFR (MDRD) Non-Af 79, BUN/Creatinine Ratio 21.3 H, Glucose 230 H, Calcium 8.4 L, Triglycerides 73, Cholesterol 126, LDL Cholesterol 56, VLDL Cholesterol 15, HDL Cholesterol 55 Rhythm: Normal sinus rhythm EKG: EKG with ST depressions. No new change. ECHO: Stress Test: Cardiac Cath: PCI: CT Surgery: Holter monitor: EPS: PPM: CXR: Chest CT Scan: Assessment/Plan 1. Sharp left-sided chest pain lasting a few seconds only. Atypical. Consider noncardiac. 2. History of extensive coronary artery disease. Medical management recommended after last heart catheterization in February of this year. Continue. 3. Right-sided chest pain exacerbated with coughing. Manage as per internal medicine 4. Diabetes mellitus. 5. Schizophrenia. 6. Hypertension. 7. Dyslipidemia 8. Continue to follow with Dr. Malik as outpatient. Recommend follow-up as outpatient in 1-2 weeks.
--- NOTE | 2018-06-22 11:31 | CON.PCM_ITS ---
Problem List (1) Chest pain Status: Acute Qualifiers: Chest pain type: unspecified Qualified Code(s): R07.9 - Chest pain, unspecified Reason for Consult Date of Consultation: 06/22/18 History of Present Illness: The patient is a 78 year old F with past medical history significant for schizophrenia and extensive coronary artery disease. He has had multiple cardiac catheterizations in the past with numerous percutaneous interventions. ER physician reported to me that her last heart catheterization was at an outside facility in February of this year. It showed diffuse coronary artery disease and medical management was recommended. According to the patient, she presented at an urgent care center with complaints of right-sided chest discomfort. This was worse with coughing. According to patient, she was worried that she may have pneumonia or even 'tuberculosis'. According to her, she was advised at the urgent care center to go to the emergency room. According to her, they advised her this as they did not have any electricity. Per patient, she also gets some left-sided chest pains. She describes these as sharp, lasting only a second or two. Not related to exertion. Not associated with shortness of breath. She denies any exertional angina. No orthopnea. No PND. No palpitations. [] Past Medical History Allergies/Adverse Reactions: Allergies atorvastatin calcium [From Lipitor] Adverse Reaction (Verified 06/21/18 17:15) Unknown rosiglitazone maleate [From Avandia] Adverse Reaction (Verified 06/21/18 17:15) Other Home Medications: Ambulatory Orders Medication Instructions Recorded Aspirin [Aspirin, Baby] 81 mg PO DAILY@0800 06/30/17 Nitroglycerin [Nitrostat] 0.4 mg SL PRN PRN 06/30/17 Pravastatin [Pravachol] 80 mg PO DAILY 06/30/17 furosemide 40 mg tablet 40 mg PO BID tab 11/19/17 Multivitamins,Therapeutic 1 tab PO DAILY 02/01/18 [Multivitamin] Albuterol Inhaler [Ventolin Hfa 2 puff INHALATION PRN PRN 02/02/18 (SP)] Ticagrelor [Brilinta] 90 mg PO BID 02/24/18 isosorbide mononitrate ER 60 mg 60 mg PO QDAY tab 03/01/18 tablet,extended release 24 hr ranolazine ER 1,000 mg 500 mg PO Q12H tab 03/01/18 tablet,extended release,12 hr carvedilol 12.5 mg tablet 6.25 mg PO BID 04/05/18 losartan 50 mg tablet 50 mg PO DAILY #90 tab 04/05/18 amlodipine 5 mg tablet 2.5 mg PO QDAY tab 04/30/18 insulin glargine (U-300) conc. 300 30 unit SC DAILY ml 04/30/18 unit/mL (3 mL) subcutaneous pen tramadol 50 mg tablet 50 mg PO Q6H PRN 04/30/18 Cholecalciferol (Vitamin D3) 1,000 unit PO DAILY 06/21/18 [Vitamin D3] Insulin Regular, Human [Humulin R] 8 units SQ TID 06/21/18 Levothyroxine Sodium [Synthroid] 100 mcg PO DAILY 06/21/18 Past Medical History (Chronic Problems): Chronic Problems (Last Reviewed 04/05/18 @ 13:48 by Genet Barger) History of spinal fusion (Chronic) anterior Non-rheumatic aortic stenosis (Chronic) History of coronary artery stent placement (Chronic) PTCA-ostail/prox LCx @ [facility] 11/09/2017 PTCA-Cutting Balloon Atherectomy w/ placement of 2.5 x 20 mm Synergy Stent, Distal LM-into the Ostium of LAD Stented w/ 4.0 x 16 mm Synergy Stent 06/2017[facility] 04/2017 PCI-LAD with a 2.75x38 Promus Premier drug eluting stent. 12/15/13 RAYMON of Right Posterior Lateral (Mid) wIth 3.0 x 2.8 Cypher, followed upstream with 3.0 x 8 Cypher, RAYMON of Right PDA (Ostial) with 25 x 28 Cypher 09/17/2007 Chronic systolic (congestive) heart failure (Chronic) Schizophrenia (Chronic) S/P PTCA (percutaneous transluminal coronary angioplasty) (Chronic ~11/09/17) PCI PTCA and laser atherectomy of proximal Circumflex 02/03/2018 PTCA-ostial/prox LCx @ [facility] 11/09/2017 PTCA-Cutting Balloon Atherectomy w/ placement of 2.5 x 20 mm Synergy Stent, Distal LM-into the Ostium of LAD Stented w/ 4.0 x 16 mm Synergy Stent 06/[facility] 04/2017 PCI-LAD with a 2.75x38 Promus Premier drug eluting stent. 12/15/13 RAYMON of Right Posterior Lateral (Mid) wIth 3.0 x 2.8 Cypher, followed upstream with 3.0 x 8 Cypher, RAYMON of Right PDA (Ostial) with 25 x 28 Cypher 09/17/2007 History of coronary artery stent placement (Chronic) Atherosclerotic heart disease [place] coronary artery w/angina pectoris (Chronic) PCI PTCA and laser atherectomy of proximal Circumflex 02/03/2018 PTCA-ostail/prox LCx @ [facility] 11/09/2017 PTCA-Cutting Balloon Atherectomy w/ placement of 2.5 x 20 mm Synergy Stent, Distal LM-into the Ostium of LAD Stented w/ 4.0 x 16 mm Synergy Stent 06/2017[facility] 04/2017 PCI-LAD with a 2.75x38 Promus Premier drug eluting stent. 12/15/13 RAYMON of Right Posterior Lateral (Mid) wIth 3.0 x 2.8 Cypher, followed upstream with 3.0 x 8 Cypher, RAYMON of Right PDA (Ostial) with 25 x 28 Cypher 09/17/2007 Pancytopenia (Chronic) Hypertension (Chronic) Hypothyroidism (Chronic) Hyperlipidemia (Chronic) Diabetes mellitus, type II (Chronic) Venous insufficiency (Chronic) CHF (congestive heart failure) (Chronic) NSTEMI (non-ST elevated myocardial infarction) (Chronic ~09/16/17) Intermittent claudication (Chronic) Tricuspid valve insufficiency (Chronic) Mitral valve insufficiency (Chronic) Obesity (BMI 30.0-34.9) (Chronic) Surgical History: angioplasty, appendectomy, cholecystectomy, tonsillectomy, - - Spinal fusion Psychiatric History: No pertinent psych hx [employer] 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 - *Family History Maternal Family History: Family History (Last Reviewed 04/05/18 @ 13:48 by Genet Barger) Mother CAD (coronary artery disease) Father CAD (coronary artery disease) History Items: Heart Disease - CAD, - - Schizophrenia Paternal Family History: Family History (Last Reviewed 04/05/18 @ 13:48 by Genet Barger) Mother CAD (coronary artery disease) Father CAD (coronary artery disease) History Items: Heart Disease Lives: Alone Smoking Status: Never smoker Tobacco Use: Non-smoker Alcohol: Occasional Drugs: None Review of Systems - Review of Systems General: Denies: Fever, Chills Cardiovascular: Reports: Chest Discomfort - As noted in history of presenting illness. Denies: Shortness of Breath, Orthopnea, PND Gastrointestinal: Denies: Abdominal Discomfort, Hematemesis Neurological: Denies: History of TIA, History of CVA Psychiatric: Reports: - - History of schizophrenia Hematologic/ Lymphatic: Denies: Easy Brusing, Easy Bleeding Subjectve: Comfortable. No apparent distress. Sitting up in a chair Objective: Vital Signs Temp Pulse Resp BP Pulse Ox 98.8 F 57 L 18 105/40 L 96 06/22/18 08:28 06/22/18 08:28 06/22/18 08:28 06/22/18 08:28 06/22/18 08:28 Oxygen Flow Rate (L/min) 2 Oxygen Delivery Method Room Air Weight: 86.772 kg Body Mass Index (BMI) 30.4 Finger Stick Blood Glucose 270 General: Healthy Appearing, Awake, Alert, Oriented x 3, No Acute Distress HEENT: Atraumatic, Normocephalic Oral: Moist Mucosa Neck: No JVD Lungs: Diminished Kilo Bases Cardiovascular: Regular Rhythm, Normal S1, Normal S2 Murmur Murmur: Grade 2/6 - Systolic murmur at base Extremities: No edema Neurological: No Focal Motor or Sensory Deficit Psych/Mental Status: Appropriate 06/21/18 17:30: WBC 3.5 L, RBC 3.48 L, Hgb 10.6 L, Hct 32.7 L, MCV 94.0, MCH 30.5, MCHC 32.4, RDW 14.0, RDW Differential 47.8 H, Plt Count 134 L, MPV 9.8, Immature Gran % (Auto) 0.000, Neut % (Auto) 57.7, Lymph % (Auto) 34.6, [place] % (Auto) 3.4, Eos % (Auto) 3.7, Baso % (Auto) 0.6, Absolute Neuts (auto) 2.0, Tot al Counted Not Reportable 06/21/18 17:30: Sodium 140, Potassium 3.9, Chloride 106, Carbon Dioxide 30.0, Anion Gap 4 L, BUN 18, Creatinine 0.86, Est GFR (MDRD) Af Amer 82, Est GFR (MDRD) Non-Af 68, BUN/Creatinine Ratio 21.1 H, Glucose 295 H, Calcium 9.0, Troponin I 0.096 H 06/21/18 17:30: B-Natriuretic Peptide 112.8 H 06/21/18 20:38: Troponin I 0.107 H 06/21/18 23:19: Troponin I 0.109 H 06/22/18 05:15: Sodium 142, Potassium 3.4 L, Chloride 105, Carbon Dioxide 27.0, Anion Gap 10, BUN 16, Creatinine 0.75, Est GFR (MDRD) Af Amer 96, Est GFR (MDRD) Non-Af 79, BUN/Creatinine Ratio 21.3 H, Glucose 230 H, Calcium 8.4 L, Triglycerides 73, Cholesterol 126, LDL Cholesterol 56, VLDL Cholesterol 15, HDL Cholesterol 55 Rhythm: Normal sinus rhythm EKG: EKG with ST depressions. No new change. ECHO: Stress Test: Cardiac Cath: PCI: CT Surgery: Holter monitor: EPS: PPM: CXR: Chest CT Scan: Assessment/Plan 1. Sharp left-sided chest pain lasting a few seconds only. Atypical. Consider noncardiac. 2. History of extensive coronary artery disease. Medical management recommended after last heart catheterization in February of this year. Continue. 3. Right-sided chest pain exacerbated with coughing. Manage as per internal medicine 4. Diabetes mellitus. 5. Schizophrenia. 6. Hypertension. 7. Dyslipidemia 8. Continue to follow with Dr. Malik as outpatient. Recommend follow-up as outpatient in 1-2 weeks.
[2018-06-22 11:41] LABS: Bedside Glucose 205 mg/dL (70-110)
--- NOTE | 2018-06-22 12:22 | CT_ITS ---
STUDY: CTA CHEST REASON FOR EXAM: Female, 78 years old. Left-sided chest pain RADIATION DOSAGE (If Supplied By Facility): CTDIvol = ( 17.56 ) mGy, DLP = ( 553.42 ) mGycm TECHNIQUE: The examination was performed with the intravenous administration of 100CC ml of Isovue 370 contrast material. Post-processing of the angiographic images was performed, with multiplanar reformation and 3D reconstruction. Individualized dose optimization techniques were used for this CT. COMPARISON: None. FINDINGS: There is dependent atelectasis is noted in the lung bases. There are no pulmonary infiltrates or pleural effusions. There is no pneumothorax. There is no evidence of pulmonary embolus. There is no evidence of thoracic aortic aneurysm or dissection. The heart is normal in size. There is no pericardial effusion. There are coronary artery calcifications noted. There is no thoracic lymphadenopathy. Images through the upper abdomen demonstrate nodularity of the liver, suggesting cirrhosis. The spleen is enlarged, measuring 14.2 cm. There are no destructive osseous lesions. CT/CTA Chest W/WO Contrast IMPRESSION: No evidence of pulmonary embolus. No evidence of thoracic aortic aneurysm or dissection. Bibasilar atelectasis. Otherwise, clear lungs. Coronary artery disease. Nodular liver, suggesting cirrhosis. Clinically. Electronically Signed: Roge iWn, at 14:30 EST Tel , Service support ,
--- NOTE | 2018-06-22 13:14 | EKG12_ITS ---
Test Reason : CP Blood Pressure : / mmHG Vent. Rate : 056 BPM Atrial Rate : 056 BPM P-R Int : 186 ms QRS Dur : 090 ms QT Int : 540 ms P-R-T Axes : 053 -02 010 degrees QTc Int : [address] & T wave abnormality, consider anterolateral ischemia Prolonged QT Abnormal ECG When compared with ECG of 21-JUN-2018 20:28, MANUAL COMPARISON REQUIRED, DATA IS UNCONFIRMED Confirmed by SILVINA CHEW, NILSON ([id number]), makeup editor THAD HOOKER ([id number]) on 06/28/2018 2:01:00 PM Referred By: DR RIOS Confirmed By:NILSON COOL MD
[2018-06-22 13:15] LABS: Bedside Glucose 312 mg/dL (70-110)
--- NOTE | 2018-06-22 16:12 | CM.UR ---
See network infrastructure architect. Met face to face with patient. Denies any additional needs upon returning home. Is aware that CM is available should any needs arise. Marnie Daniels RN, CCM.
[2018-06-22 16:16] LABS: Bedside Glucose 341 mg/dL (70-110)
[2018-06-22] MEDS: Benzonatate 100 MG Capsule PO (17:45)
[2018-06-22] MEDS: Pravastatin 80 MG Tablet PO (22:01)
[2018-06-22 22:16] LABS: Bedside Glucose 275 mg/dL (70-110)
[2018-06-23] VITALS (10 sets, daily range): BP systolic 101–117; BP diastolic 36–62; PULSE 53–78; RESP 16–18; TEMP 36.3–37.1; O2SAT 95–99
[2018-06-23] MEDS: Enoxaparin 40 MG/0.4 ML Syringe SC (05:34)
[2018-06-23] MEDS: Levothyroxine 100 MCG Tablet PO (05:34)
[2018-06-23 06:08] LABS: International Normalized Ratio 1.2
[2018-06-23 06:22] LABS: Magnesium 2.1 mg/dL (1.6-2.6)
[2018-06-23] MEDS: Ipratropium/Albuterol Sulfate 3 ML AMPUL.NEB INHALATION ×2 (06:41→10:55)
[2018-06-23 07:01] LABS: Bedside Glucose 133 mg/dL (70-110)
[2018-06-23 07:32] LABS: Hemoglobin A1c 8.3 % (4.2-6.3)
[2018-06-23 07:37] LABS: Absolute Lymphocyte Count 1.38 X10^3/ul (0.83-4.51); Absolute Neutrophil Count 1.8 X10^3/uL (2.0-7.7); Basophil# 0.01 X10^3/uL; Basophil% 0.3 % (0-1); Eosinophil# 0.16 X10^3/uL; Eosinophils% 4.5 % (0-5); Hematocrit 29.1 % (37-47); Hemoglobin 9.4 g/dl (12.0-15.0); Lymphocyte # 1.38 X10^3/ul (4.0); Lymphocyte % 38.4 % (19-41); Mean Corp Hgb Conc 32.3 g/gl (32-36); Mean Corpuscular Hgb 30.3 pg (27.0-32.0); Mean Corpuscular Volume 93.9 fL (81-99); Mean Platelet Vol. 9.9 fl (6.2-12.0); Monocyte% 5.6 % (0-10); Neutrophil # 1.84 X10^3/uL (2.7-7.7); Neutrophil % 51.2 % (47-70); Platelet Count 119 K/mm3 (150-450); RBC Distribution Width SD 47.8 fl (35.1-43.9); White Blood Count 3.6 K/mm3 (4.4-11.0)
[2018-06-23 07:40] LABS: Anion Gap 7 (5-15); BUN 19 mg/dL (7-18); BUN/Creat Ratio 22.5 RATIO (10-20); Calcium,Total 8.3 mg/dL (8.5-10.1); Chloride 105 mmol/L (98-107); Creatinine, Serum 0.85 mg/dL (0.55-1.02); EST Glomerular Filtration Rate 69 mL/min (>60); Est Glom Filt Rate - Afr Amer 83 mL/min (>60); Estimated Creatinine Clearance 52.19 ml/min; Glucose 144 mg/dL (74-106); Potassium 3.7 mmol/L (3.5-5.1); Sodium Level 141 mmol/L (136-145)
[2018-06-23 07:44] LABS: POSITIVE COUNT NO; POSITIVE DIFFERENTIAL NO; POSITIVE MORPHOLOGY NO
[2018-06-23] MEDS: Insulin Lispro 100 UNIT/ML INSULN.PEN 8 UNIT SC ×2 (08:25→11:01)
[2018-06-23] MEDS: Aspirin 81 MG TAB.CHEW PO (08:25)
[2018-06-23] MEDS: Multivitamins,Therapeutic Tablet 1 TABLET PO (08:26)
[2018-06-23] MEDS: amLODIPine 2.5 MG Tablet PO (09:51)
[2018-06-23] MEDS: Furosemide 40 MG Tablet PO (09:51)
[2018-06-23] MEDS: Ranolazine 500 MG Tablet PO (09:51)
[2018-06-23] MEDS: Losartan Potassium 50 MG Tablet PO (09:51)
[2018-06-23] MEDS: TICAGRELOR 90 MG TABLET PO (09:51)
[2018-06-23] MEDS: Isosorbide Mononitrate 60 MG Tablet PO (09:52)
[2018-06-23] MEDS: Insulin Lispro 100 UNIT/ML INSULN.PEN SQ (11:00)
[2018-06-23 11:16] LABS: Bedside Glucose 155 mg/dL (70-110)
--- NOTE | 2018-06-23 12:25 | DS.PCM_ITS ---
Discharge Date and Diagnosis Date of Admission: 06/21/18 Date of Discharge: 06/23/18 - Primary Discharge Diagnosis CHEST PAIN - Secondary Discharge Diagnosis Chronic Problems (Last Reviewed 04/05/18 @ 13:48 by Genet Barger) History of spinal fusion (Chronic) anterior Non-rheumatic aortic stenosis (Chronic) History of coronary artery stent placement (Chronic) PTCA-ostail/prox LCx @ [facility] 11/09/2017 PTCA-Cutting Balloon Atherectomy w/ placement of 2.5 x 20 mm Synergy Stent, Distal LM-into the Ostium of LAD Stented w/ 4.0 x 16 mm Synergy Stent 06/2017PTCA-OM 04/2017 PCI-LAD with a 2.75x38 Promus Premier drug eluting stent. 12/15/13 RAYMON of Right Posterior Lateral (Mid) wIth 3.0 x 2.8 Cypher, followed upstream with 3.0 x 8 Cypher, RAYMON of Right PDA (Ostial) with 25 x 28 Cypher 09/17/2007 Chronic systolic (congestive) heart failure (Chronic) Schizophrenia (Chronic) S/P PTCA (percutaneous transluminal coronary angioplasty) (Chronic ~11/09/17) PCI PTCA and laser atherectomy of proximal Circumflex 02/03/2018 PTCA-ostial/prox LCx @ [facility] 11/09/2017 PTCA-Cutting Balloon Atherectomy w/ placement of 2.5 x 20 mm Synergy Stent, Distal LM-into the Ostium of LAD Stented w/ 4.0 x 16 mm Synergy Stent 06/2017PTCA-OM 04/2017 PCI-LAD with a 2.75x38 Promus Premier drug eluting stent. 12/15/13 RAYMON of Right Posterior Lateral (Mid) wIth 3.0 x 2.8 Cypher, followed upstream with 3.0 x 8 Cypher, RAYMON of Right PDA (Ostial) with 25 x 28 Cypher 09/17/2007 History of coronary artery stent placement (Chronic) Atherosclerotic heart disease [place] coronary artery w/angina pectoris (Chronic) PCI PTCA and laser atherectomy of proximal Circumflex 02/03/2018 PTCA-ostail/prox LCx @ [facility] 11/09/2017 PTCA-Cutting Balloon Atherectomy w/ placement of 2.5 x 20 mm Synergy Stent, Distal LM-into the Ostium of LAD Stented w/ 4.0 x 16 mm Synergy Stent 06/2017PTCA-OM 04/2017 PCI-LAD with a 2.75x38 Promus Premier drug eluting stent. 12/15/13 RAYMON of Right Posterior Lateral (Mid) wIth 3.0 x 2.8 Cypher, followed upstream with 3.0 x 8 Cypher, RAYMON of Right PDA (Ostial) with 25 x 28 Cypher 09/17/2007 Pancytopenia (Chronic) Hypertension (Chronic) Hypothyroidism (Chronic) Hyperlipidemia (Chronic) Diabetes mellitus, type II (Chronic) Venous insufficiency (Chronic) CHF (congestive heart failure) (Chronic) NSTEMI (non-ST elevated myocardial infarction) (Chronic ~09/16/17) Intermittent claudication (Chronic) Tricuspid valve insufficiency (Chronic) Mitral valve insufficiency (Chronic) Obesity (BMI 30.0-34.9) (Chronic) Hospital Course and Treatment Imaging Results: Ms Zaidi is a 78 year old F past medical history of schizophrenia, type II DM, chronic systolic CHF, hypertension, hyperlipidemia, hypothyroidism, CAD status post stent to her ostial/proximal circumflex who presented to the ED on 06/21/18 with c/o chest pain that was across her whole chest but sometimes had been on the L the left side and had been ongoing for days. She stated that she had this chest pain but she had been ignoring it. It had waxed and wane and she reported that exertion sometimes made it worse. In the few days prior to admission her chest pain was not relieved with nitro but it had been helping in the past. She denied any diaphoresis or dizziness or palpitations or orthopnea or PND. Her troponin on admission was 0.096 and repeat was roughly the same. Her admitting EKG was unchanged from previous, no acute ST-T changes, showed diffuse T wave inversion which is not new. Cardiology saw her and was not concerned that this was cardiac in nature and a CTA was done which was essentially neg except for atelectasis and cirrhotic liver. She did have a vagal event on the afternoon of the with having a BM but was fine through the night and this am. Her A1c was 8.3 and he basal insulin was increased to 36 units and her bolus insulin was increased to 11 units with meals. She was discharged in stable condition. Assessment and Plan 1. CP -no ECG changes -CTA without PE or other significant findings -CP resolved -Cards feels that this is non -cardiac and has s/o -PCI to prox circ 02/20/NSTEMI 07/22 with RAYMON to distal LM/Angio and rotablade to LAD 2013--> pt states she has had recent cath at [facility] [id number] -increased Lantus to 36 units--> am fasting BGT better -increase to 11 units tid with meals -A1c was 8.3 -need tighter control if able with cardiac disease 3. HFpEF -last EF was 66% -stage 1 diastolic dysfunction 4. HTN/CAD/HPL/PAD -continue Norvasc 2.5 mg daily -continue ASA 81 mg daily -decrease back to home dose of Coreg 12.5 mg BID -continue Imdur 60 mg -continue Losartan 50 mg -continue Pravastatin 80 mg daily -continue Ranolazine 500 mg BID -continue Brilinta 90 mg BID -prn nitro -will try to improve DM control 5. Hypothyroidism -continue home Synthroid 6. CHENEY/Cirrhosis -aggressive medical mgt -cirrhosis noted on CT--> may explain thrombocytopenia -INR remains normal -severity of cirrhosis remains low at this time--> will need followed/discussed with pt 7. Pancytopenia -follow with Dr. Son 8. Obesity -recommend wgt loss -appears that wgt is stable 9. Recent Suicide -documented in Dr. Malik note from 03/23 10. Prolonged Qtc-chronic -521 -electrolyte replacement 11. Hypokalemia -resolved -Mg wnl 12. LE Edema -states this is chronic for her and that she has had multiple US in past 13. Dry Cough -non-productive -seems improved today 14. Dispo -d/c home CARDIOLOGY Operations: None Summary of Care Provided: The patient is a 78 year old F [] Subjective: Vagal episode yesterday afternoon with BR and BM. Has been fine since. Feeling well with resolved CP today. Asking if she gets to go home. - Physical Exam General: Alert, Oriented x3, Cooperative, No apparent distress, Well developed, Well nourished, - - sitting up in chair, non-toxic HEENT: Atraumatic, PERRLA, EOMI, Normocephalic, EAC Clear Oral: Moist Mucosa, No Gingival or Mucosal Lesions/ Ulcerations Neck: Supple, No JVD, Negative Carotid Bruits, Negative Hepatojugular Reflux, No Nodes, Trachea Midline, Thyroid Normal Size and Texture Lungs: Clear to auscultation, Normal air movement, No rhonchi, No wheeze, No rales - crackles at bases resolved Cardiovascular: Regular rate, Regular Rhythm, Normal S1, Normal S2, Murmur - 3/6 sm, No rub noted, No Gallop Abdomen: Bowel Sounds Present, Soft, Non Tender, Non-Distended, No Hepato- splenomegaly, Obese, No hernias noted Extremities: No clubbing, No cyanosis, Edema - B LE L > R-chronic Skin: No rashes, No breakdown Musculoskeletal: No Muscle Wasting, Arthritic Changes, Tenderness - B LE at pretibial area Lymphatic: No Cervical, Supraclavicular, or Inguinal Adenopathy Neurological: Cranial nerves II-XII grossly intact, Neuro grossly intact Psych/Mental Status: Normal Affect, Appropriate, Alert and oriented to time, place, person, mood and affect Vital Signs Temp Pulse Resp BP Pulse Ox 97.4 F L 68 16 107/47 L 96 06/23/18 09:54 06/23/18 10:55 06/23/18 10:55 06/23/18 09:55 06/23/18 09:54 Oxygen Flow Rate (L/min) 2 Oxygen Delivery Method Room Air Weight: 87.5 kg Body Mass Index (BMI) 30.4 Finger Stick Blood Glucose 270 Intake and Output for Last 24 Hours 06/21/18 06/22/18 06/23/18 23:59 23:59 23:59 Intake Total 1300 / 1300 120 / 120 Balance 1300 / 1300 120 / 120 Laboratory Tests Past 24 Hrs 06/23/18 06/23/18 06/23/18 05:29 05:29 05:29 WBC RBC Hgb Hct MCV MCH MCHC RDW RDW Differential Plt Count MPV Immature Gran % (Auto) Neut % (Auto) Lymph % (Auto) [place] % (Auto) Eos % (Auto) Baso % (Auto) Absolute Neuts (auto) Absolute Lymphs (auto) Total Counted PT 15.0 H INR 1.2 Sodium Potassium Chloride Carbon Dioxide Anion Gap BUN Creatinine Estim Creat Clear Calc Est GFR (MDRD) Af Amer Est GFR (MDRD) Non-Af BUN/Creatinine Ratio Glucose Hemoglobin A1c 8.3 H Calcium Magnesium 2.1 06/23/18 06/23/18 05:29 05:29 WBC 3.6 L RBC 3.10 L Hgb 9.4 L Hct 29.1 L MCV 93.9 MCH 30.3 MCHC 32.3 RDW 14.0 RDW Differential 47.8 H Plt Count 119 L MPV 9.9 Immature Gran % (Auto) 0.000 Neut % (Auto) 51.2 Lymph % (Auto) 38.4 [place] % (Auto) 5.6 Eos % (Auto) 4.5 Baso % (Auto) 0.3 Absolute Neuts (auto) 1.8 L Absolute Lymphs (auto) 1.38 Total Counted Not Reportable PT INR Sodium 141 Potassium 3.7 Chloride 105 Carbon Dioxide 29.0 Anion Gap 7 BUN 19 H Creatinine 0.85 Estim Creat Clear Calc 52.19 Est GFR (MDRD) Af Amer 83 Est GFR (MDRD) Non-Af 69 BUN/Creatinine Ratio 22.5 H Glucose 144 H Hemoglobin A1c Calcium 8.3 L Magnesium POC Glucose 06/23/18 06/23/18 06/22/18 10:58 06:54 21:59 POC Glucose 155 H 133 H 275 H 06/22/18 06/22/18 16:06 13:11 POC Glucose 341 H 312 H Discharge Diet: Low fat/ Low Cholesterol, Carb Control Diet Discharge Activity: Return to Normal Activity May resume sexual activity in: No Restrictions Call your doctor if you observe: Fever of 101 or Higher, Numbness or Tingling, Shortness of breath, Dizziness, Fainting spells, Chest pain, Increased palpitations (irregular heartbeat) Home Medications: Medications to take at Discharge Aspirin [Aspirin, Baby] 81 mg PO DAILY@0800 06/30/17 Nitroglycerin [Nitrostat] 0.4 mg SL PRN PRN 06/30/17 Pravastatin [Pravachol] 80 mg PO DAILY 06/30/17 furosemide 40 mg tablet 40 mg PO BID tab 11/19/17 Multivitamins,Therapeutic [Multivitamin] 1 tab PO DAILY 02/01/18 Albuterol Inhaler [Ventolin Hfa (SP)] 2 puff INHALATION PRN PRN 02/02/18 Ticagrelor [Brilinta] 90 mg PO BID 02/24/18 isosorbide mononitrate ER 60 mg tablet,extended release 24 hr 60 mg PO QDAY tab 03/01/18 ranolazine ER 1,000 mg tablet,extended release,12 hr 500 mg PO Q12H tab 03/01/18 carvedilol 12.5 mg tablet 6.25 mg PO BID 04/05/18 losartan 50 mg tablet 50 mg PO DAILY #90 tab 04/05/18 amlodipine 5 mg tablet 2.5 mg PO QDAY tab 04/30/18 insulin glargine (U-300) conc. 300 unit/mL (3 mL) subcutaneous pen 30 unit SC DAILY ml 04/30/18 tramadol 50 mg tablet 50 mg PO Q6H PRN 04/30/18 Cholecalciferol (Vitamin D3) [Vitamin D3] 1,000 unit PO DAILY 06/21/18 Insulin Regular, Human [Humulin R] 8 units SQ TID 06/21/18 Levothyroxine Sodium [Synthroid] 100 mcg PO DAILY 06/21/18 Primary Care Physician: Diana Cohen MD [Primary Care Provider] - Disposition: Home Patient Condition:: Good Medical Necessity - Tobacco Use Smoking Status: Never smoker Tobacco Use: Non-smoker Meaningful Use Info Meaningful Use Diagnoses (Choose all that apply): None applicable Code Visit Inpatient E&M: 13721 Disch Hosp
--- NOTE | 2018-06-23 12:31 | DCINST_ITS ---
- Discharge Diagnoses Current Active Problems: CP-resolved Reason(s) for Visit for Discharge Instructions: CP You will use the following diet at home:: Calorie/Carbohydrate Controlled (specify 1200, 1400, etc), Cardiac Your food should be the consistency of: Regular Your liquids should be the consistency of: Regular/Thin Discharge Activity: Return to Normal Activity May resume sexual activity in: No Restrictions Call your doctor if you observe: Fever of 101 or Higher, Numbness or Tingling, Shortness of breath, Dizziness, Fainting spells, Chest pain, Increased palpit ations (irregular heartbeat) Instructions: ED Chest Pain NonCardiac Allergies/Adverse Reactions: Allergies atorvastatin calcium [From Lipitor] Adverse Reaction (Verified 06/21/18 17:15) Unknown rosiglitazone maleate [From Avandia] Adverse Reaction (Verified 06/21/18 17:15) Other Medications to take at Discharge Aspirin [Aspirin, Baby] 81 mg PO DAILY@0800 06/30/17 Nitroglycerin [Nitrostat] 0.4 mg SL PRN PRN 06/30/17 Pravastatin [Pravachol] 80 mg PO DAILY 06/30/17 furosemide 40 mg tablet 40 mg PO BID tab 11/19/17 Multivitamins,Therapeutic [Multivitamin] 1 tab PO DAILY 02/01/18 Albuterol Inhaler [Ventolin Hfa (SP)] 2 puff INHALATION PRN PRN 02/02/18 Ticagrelor [Brilinta] 90 mg PO BID 02/24/18 isosorbide mononitrate ER 60 mg tablet,extended release 24 hr 60 mg PO QDAY tab 03/01/18 ranolazine ER 1,000 mg tablet,extended release,12 hr 500 mg PO Q12H tab 03/01/18 carvedilol 12.5 mg tablet 6.25 mg PO BID 04/05/18 losartan 50 mg tablet 50 mg PO DAILY #90 tab 04/05/18 amlodipine 5 mg tablet 2.5 mg PO QDAY tab 04/30/18 insulin glargine (U-300) conc. 300 unit/mL (3 mL) subcutaneous pen 30 unit SC DAILY ml 04/30/18 tramadol 50 mg tablet 50 mg PO Q6H PRN 04/30/18 Cholecalciferol (Vitamin D3) [Vitamin D3] 1,000 unit PO DAILY 06/21/18 Insulin Regular, Human [Humulin R] 8 units SQ TID 06/21/18 Levothyroxine Sodium [Synthroid] 100 mcg PO DAILY 06/21/18 Primary Care Physician: Diana Cohen MD [Primary Care Provider] - Test Results: Test results from this visit will be discussed in further detail at your follow- up appointment, if applicable.
--- NOTE | 2018-06-24 15:29 | CASEMGMT ---
RN CM Discharge F/U Phone Call LACE: 12 Strata: 4 Discharge date: 06/21/18 Call date: 06/24/18 Call time: 1531 Attempted to reach pt without success at this time, message left for pt to call this RN CM back when able. SStaten RN CM Admission dx: Chest pain
== END 2018-06-23 14:55 | disposition home or self-care (01) | DRG 313 ==
LOC: ED 19:21 → PCU 19:33
PROVIDERS: Admitting Provider Internal Medicine; Emergency Provider Emergency Medicine; Family Provider Internal Medicine; PCP Internal Medicine; Visit Provider Internal Medicine
DX: R07.89 Other chest pain (principal); D61.818 Other pancytopenia; I50.30 Unspecified diastolic (congestive) heart failure; I25.10 Atherosclerotic heart disease of native coronary artery without angina pectoris; F20.9 Schizophrenia, unspecified; E78.5 Hyperlipidemia, unspecified; E03.9 Hypothyroidism, unspecified; Z95.5 Presence of coronary angioplasty implant and graft; Z79.4 Long term (current) use of insulin; Z98.1 Arthrodesis status; I25.2 Old myocardial infarction; I11.0 Hypertensive heart disease with heart failure; K75.81 Nonalcoholic steatohepatitis (NASH); E66.9 Obesity, unspecified; Z68.30 Body mass index [BMI] 30.0-30.9, adult; E87.6 Hypokalemia; E11.65 Type 2 diabetes mellitus with hyperglycemia; K74.60 Unspecified cirrhosis of liver; R05 Cough
CPT/HCPCS: 36415; 71045; 71275; 80048; 80061; 82962; 83036; 83735; 83880; 84484; 85025; 85610; 93005; 94640; 99283; Q9967; A4216

== ENCOUNTER 2018-08-16 15:28 | Observation (INO) | payer MEDICARE, MEDICAID, SELFPAY ==
[2018-06-21 20:06] VITALS: BMI 30.4
[2018-08-16] VITALS (8 sets, daily range): BP systolic 109–137; BP diastolic 49–59; PULSE 53–70; RESP 12–18; TEMP 36.6–37.2; O2SAT 97–100; BMI 32.1; BMI 31.5
--- NOTE | 2018-08-16 16:09 | RAD_ITS ---
STUDY: X-RAY CHEST REASON FOR EXAM: Female, 78 years old. Chest pain TECHNIQUE: 1 view COMPARISON: Prior chest radiograph of June 21, 2018 FINDINGS: The lungs are clear and expanded. There is no demonstrated pleural abnormality. Normal size heart. Normal mediastinum and rell. Normal visualized pulmonary arteries. Normal visualized aortic arch and descending thoracic aorta. Normal visualized thoracic spine. Normal visualized ribs, clavicles, and shoulders. There is no demonstrated abnormality of the visualized soft tissue structures of the upper abdomen. RAD/Chest 1 View (Portable) IMPRESSION: Normal x-ray examination of the chest. Electronically Signed: Maria Alejandra Mullen MD at 20:03 EST , Service support ,
--- NOTE | 2018-08-16 16:09 | EKG12_ITS ---
Test Reason : CP Blood Pressure : / mmHG Vent. Rate : 073 BPM Atrial Rate : 073 BPM P-R Int : 170 ms QRS Dur : 084 ms QT Int : 462 ms P-R-T Axes : 058 000 103 degrees QTc Int : 508 ms Normal sinus rhythm Nonspecific ST and T wave abnormality Prolonged QT Abnormal ECG Confirmed by SILVINA CHEW, NILSON ([id number]), visual effects editor THAD HOOKER ([id number]) on 08/20/2018 5:05:42 PM Referred By: RADHA Confirmed By:NILSON COOL MD
[2018-08-16] MEDS: Nitroglycerin Oint 1 INCH PACKET TRANSDERM. (16:37)
[2018-08-16] MEDS: 0.9% Normal Saline 1,000 ML 150 ML IV (16:37)
[2018-08-16] MEDS: Aspirin 81 MG TAB.CHEW 324 MG PO (16:37)
[2018-08-16 17:08] LABS: Absolute Lymphocyte Count 0.93 X10^3/ul (0.83-4.51); Absolute Neutrophil Count 1.7 X10^3/uL (2.0-7.7); Basophil# 0.02 X10^3/uL; Basophil% 0.7 % (0-1); Eosinophil# 0.13 X10^3/uL; Eosinophils% 4.5 % (0-5); Hematocrit 31.5 % (37-47); Hemoglobin 10.2 g/dl (12.0-15.0); Lymphocyte # 0.93 X10^3/ul (4.0); Lymphocyte % 32.1 % (19-41); Mean Corp Hgb Conc 32.4 g/gl (32-36); Mean Corpuscular Hgb 30.4 pg (27.0-32.0); Mean Corpuscular Volume 93.8 fL (81-99); Mean Platelet Vol. 10.2 fl (6.2-12.0); Monocyte# 0.13 X10^3/uL; Monocyte% 4.5 % (0-10); Neutrophil # 1.69 X10^3/uL (2.7-7.7); Neutrophil % 58.2 % (47-70); Platelet Count 36 K/mm3 (150-450); RBC Distribution Width CV 14.2 % (11.6-14.6); RBC Distribution Width SD 48.4 fl (35.1-43.9); Red Blood Count 3.36 M/mm3 (4.2-5.4); White Blood Count 2.9 K/mm3 (4.4-11.0)
[2018-08-16 17:09] LABS: POSITIVE COUNT YES; POSITIVE DIFFERENTIAL NO
[2018-08-16 17:10] LABS: Differential Indicated SCAN CRITERIA MET; POSITIVE MORPHOLOGY NO
[2018-08-16 17:13] LABS: Anion Gap 9 (5-15); BUN 14 mg/dL (7-18); BUN/Creat Ratio 17.9 RATIO (10-20); Calcium,Total 8.5 mg/dL (8.5-10.1); Chloride 106 mmol/L (98-107); Creatinine, Serum 0.78 mg/dL (0.55-1.02); EST Glomerular Filtration Rate 76 mL/min (>60); Est Glom Filt Rate - Afr Amer 91 mL/min (>60); Estimated Creatinine Clearance 44.36 ml/min; Glucose 257 mg/dL (74-106); Potassium 4.6 mmol/L (3.5-5.1); Sodium Level 139 mmol/L (136-145)
[2018-08-16 17:43] LABS: Platelet Estimate MKD DEC (ADEQ); Red Cell Morphology NORM C+C NORMAL (NORM C&C)
--- NOTE | 2018-08-16 17:46 | CT_ITS ---
STUDY: CTA CHEST REASON FOR EXAM: Female, 78 years old. Chest pain for one week RADIATION DOSAGE (If Supplied By Facility): CTDIvol = ( 17.55 ) mGy, DLP = ( 575.69 ) mGycm TECHNIQUE: The examination was performed with the intravenous administration of 100 ml of Isovue 370 contrast material. Post-processing of the angiographic images was performed, with multiplanar reformation and 3D reconstruction. Individualized dose optimization techniques were used for this CT. COMPARISON: 06/22/2018 FINDINGS: Normal enhancement of the main pulmonary artery and right and left pulmonary arteries. Normal enhancement of the bilateral peripheral pulmonary arteries. There is no demonstrated pulmonary embolism. Normal thoracic aorta and visualized great vessels. There is no demonstrated aortic dissection. Normal heart and pericardium. There are calcifications of the coronary arteries. Normal mediastinum. Normal hilar regions. Normal visualized trachea and bronchi. The lungs are well expanded. There are bandlike parenchymal changes most consistent with atelectasis of the bilateral lungs. Normal pleura. Normal chest wall structures. Normal osseous structures. Nodular contours of the liver with recanalized umbilical vein and splenomegaly compatible with cirrhosis. No abdominal ascites demonstrated. CT/CTA Chest W/WO Contrast IMPRESSION: 1. No central or segmental pulmonary embolism. 2. Coronary artery atherosclerosis. 3. Atelectasis. 4. Cirrhosis with splenomegaly and recanalized umbilical vein. Electronically Signed: Zen Barnett MD at 18:56 EST , Service support ,
--- NOTE | 2018-08-16 17:48 | ED.RN ---
lab called platelets of 36. dr schwartz aware
--- NOTE | 2018-08-16 19:21 | ED.VISSUMM ---
- ER Visit Summary Date of Service: 08/16/18 Chief Complaint: [Chest pain] History of Present Illness: The patient is a 78 F [presents the emergency department complaint of chest discomfort that she is had off and on for the last 2 weeks. Patient describes the pain is sharp at times and a full feeling in the left chest and at times radiating to her left arm. Patient feels short of breath with it. Patient states she has been taking frequent nitroglycerin at home which seems to help her pain. Patient's complaint of some swelling in her right leg which she states is been there for years off and on. Patient has history of coronary artery disease with cardiac stents x6. Patient has history of diabetes, hypertension, high cholesterol, CHF, schizophrenia, and hypothyroidism. Patient denies recent travel or surgery.] Physical Examination: [JOSE JUAREZ. Cranial nerves II through XII grossly intact. TMs clear. Mucous membranes moist. No adenopathy. Cardiovascular-regular rate and rhythm without murmur or ectopy Lungs-clear to auscultation, chest wall stable without crepitus or subcu emphysema Abdomen-normoactive bowel sounds, soft, nontender, no rebound or rigidity, no peritoneal signs. Extremities-intact ?4, normal range of motion, normal pulses, atraumatic]. Patient does have +2 edema of lower extremity and +1 edema right lower extremity. Negative Homans sign. No ropes or cords palpated. Test Results: [EKG obtained on arrival showed a sinus rhythm with a ventricular rate of [address] changes noted with flipped T waves in 1 and aVL. There is subtle ST depression in V4, V5, and V6. When compared with prior EKG these changes appear to be new. Prior EKG is from June 22, 2018. CBC with differential showing a 2.9, hemoglobin 10, hematocrit 31, platelets 36,000. Chemistries unremarkable. BUN was 14 and creatinine 0.78. Troponin was 0.181. D-dimer was elevated 2.[address] of the chest was obtained which showed no PE or dissection. Patient was noted to have some cirrhosis of the liver.] Emergency Department Course and Treatment: [Patient had already taken aspirin at home and Brilinta therefore none was given here. Patient had an inch of Nitropaste placed to the anterior chest wall. Patient was ordered morphine 4 mg IV.] Treatment Plan: [Case was discussed with hospitalist will evaluate patient for admission] Disposition: [Admit] Impression: [Chest pain-rule out acute coronary syndrome Pancytopenia] This note was generated with [employer] dictation software. It may contain incorrect words, spelling, and punctuation that were not noted in review of the chart prior to signing ED Disposition - Plan for ED Patient: Chief Complaint: Chest Pain Referrals: Diana Cohen MD [Primary Care Provider] -
--- NOTE | 2018-08-16 19:24 | ED.DCSUM_ITS ---
- ER Visit Summary Date of Service: 08/16/18 Chief Complaint: [Chest pain] History of Present Illness: The patient is a 78 F [presents the emergency department complaint of chest discomfort that she is had off and on for the last 2 weeks. Patient describes the pain is sharp at times and a full feeling in t he left chest and at times radiating to her left arm. Patient feels short of breath with it. Patient states she has been taking frequent nitroglycerin at home which seems to help her pain. Patient's complaint of some swelling in her right leg which she states is been there for years off and on. Patient has history of coronary artery disease with cardiac stents x6. Patient has history of diabetes, hypertension, high cholesterol, CHF, schizophrenia, and hypothyroidism. Patient denies recent travel or surgery.] Physical Examination: [HEROMEL-PERRLA, JAVEDMI. Cranial nerves II through XII grossly intact. TMs clear. Mucous membranes moist. No adenopathy. Cardiovascular-regular rate and rhythm without murmur or ectopy Lungs-clear to auscultation, chest wall stable without crepitus or subcu emphysema Abdomen-normoactive bowel sounds, soft, nontender, no rebound or rigidity, no peritoneal signs. Extremities-intact ?4, normal range of motion, normal pulses, atraumatic]. Patient does have +2 edema of lower extremity and +1 edema right lower extremity. Negative Homans sign. No ropes or cords palpated. Test Results: [EKG obtained on arrival showed a sinus rhythm with a ventricular rate of [address] changes noted with flipped T waves in 1 and aVL. There is subtle ST depression in V4, V5, and V6. When compared with prior EKG these changes appear to be new. Prior EKG is from June 22, 2018. CBC with differential showing a 2.9, hemoglobin 10, hematocrit 31, platelets 36,000. Chemistries unremarkable. BUN was 14 and creatinine 0.78. Troponin was 0.181. D-dimer was elevated 2.[address] of the chest was obtained which showed no PE or dissection. Patient was noted to have some cirrhosis of the liver.] Emergency Department Course and Treatment: [Patient had already taken aspirin at home and Brilinta therefore none was given here. Patient had an inch of Ni tropaste placed to the anterior chest wall. Patient was ordered morphine 4 mg IV.] Treatment Plan: [Case was discussed with hospitalist will evaluate patient for admission] Disposition: [Admit] Impression: [Chest pain-rule out acute coronary syndrome Pancytopenia] This note was generated with [employer] dictation software. It may contain incorrect words, spelling, and punctuation that were not noted in review of the chart prior to signing ED Disposition - Plan for ED Patient: Chief Complaint: Chest Pain Referrals: Diana Cohen MD [Primary Care Provider] -
[2018-08-16] MEDS: Morphine 4 MG/ML Syringe IV (19:29)
--- NOTE | 2018-08-16 20:08 | PCM.HP.STD ---
Problem List (1) Chest pain Status: Acute (2) Elevated troponin Status: Acute (3) Thrombocytopenia Status: Acute History of Present Illness Date of Admission: 08/16/18 Chief Complaint: chest pain The patient is a 78 year old F presents with several day history of chest pain. Patient states that she has been taking nitroglycerin sublingual 6-8 times per day. Given the symptoms have not abated patient present for evaluation. In the emergency room, patient was noted to have troponin of 0.18, platelets of 36,000 and a d-dimer of 2.5. CT angiogram of the chest was negative for pulmonary embolism, pneumonia or any granulomatous disease. Patient stated this chest pain is similar to prior episodes including times where she is required stents. Patient did have intervention to [facility] this summer but she does not recall when. Patient was seen here in June and to have noncardiac chest pain. 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 She is also concerned with having pneumonia because she had pneumonia 20 years ago. [] Past Medical History Past Medical History (Chronic Problems): Chronic Problems (Last Reviewed 04/05/18 @ 13:48 by Genet Barger) History of spinal fusion (Chronic) anterior Non-rheumatic aortic stenosis (Chronic) History of coronary artery stent placement (Chronic) PTCA-ostail/prox LCx @ [facility] 11/09/2017 PTCA-Cutting Balloon Atherectomy w/ placement of 2.5 x 20 mm Synergy Stent, Distal LM-into the Ostium of LAD Stented w/ 4.0 x 16 mm Synergy Stent 06/2017PTCA-OM 04/2017 PCI-LAD with a 2.75x38 Promus Premier drug eluting stent. 12/15/13 RAYMON of Right Posterior Lateral (Mid) wIth 3.0 x 2.8 Cypher, followed upstream with 3.0 x 8 Cypher, RAYMON of Right PDA (Ostial) with 25 x 28 Cypher 09/17/2007 Chronic systolic (congestive) heart failure (Chronic) Schizophrenia (Chronic) S/P PTCA (percutaneous transluminal coronary angioplasty) (Chronic ~11/09/17) PCI PTCA and laser atherectomy of proximal Circumflex 02/03/2018 PTCA-ostial/prox LCx @ [facility] 11/09/2017 PTCA-Cutting Balloon Atherectomy w/ placement of 2.5 x 20 mm Synergy Stent, Distal LM-into the Ostium of LAD Stented w/ 4.0 x 16 mm Synergy Stent 06/2017PTCA-OM 04/2017 PCI-LAD with a 2.75x38 Promus Premier drug eluting stent. 12/15/13 RAYMON of Right Posterior Lateral (Mid) wIth 3.0 x 2.8 Cypher, followed upstream with 3.0 x 8 Cypher, RAYMON of Right PDA (Ostial) with 25 x 28 Cypher 09/17/2007 History of coronary artery stent placement (Chronic) Atherosclerotic heart disease [place] coronary artery w/angina pectoris (Chronic) PCI PTCA and laser atherectomy of proximal Circumflex 02/03/2018 PTCA-ostail/prox LCx @ [facility] 11/09/2017 PTCA-Cutting Balloon Atherectomy w/ placement of 2.5 x 20 mm Synergy Stent, Distal LM-into the Ostium of LAD Stented w/ 4.0 x 16 mm Synergy Stent 06/2017PTCA-OM 04/2017 PCI-LAD with a 2.75x38 Promus Premier drug eluting stent. 12/15/13 RAYMON of Right Posterior Lateral (Mid) wIth 3.0 x 2.8 Cypher, followed upstream with 3.0 x 8 Cypher, RAYMON of Right PDA (Ostial) with 25 x 28 Cypher 09/17/2007 Pancytopenia (Chronic) Hypertension (Chronic) Hypothyroidism (Chronic) Hyperlipidemia (Chronic) Diabetes mellitus, type II (Chronic) Venous insufficiency (Chronic) CHF (congestive heart failure) (Chronic) NSTEMI (non-ST elevated myocardial infarction) (Chronic ~09/16/17) Intermittent claudication (Chronic) Tricuspid valve insufficiency (Chronic) Mitral valve insufficiency (Chronic) Obesity (BMI 30.0-34.9) (Chronic) Medical History: Medical History (Last Reviewed 08/16/18 @ 20:11 by Marty Castillo DO) Non-rheumatic aortic stenosis (Chronic) I35.0 Chronic systolic (congestive) heart failure (Chronic) I50.22 Schizophrenia (Chronic) F20.9 Atherosclerotic heart disease [place] coronary artery w/angina pectoris (Chronic) I25.119 PCI PTCA and laser atherectomy of proximal Circumflex 02/03/2018 PTCA-ostail/prox LCx @ [facility] 11/09/2017 PTCA-Cutting Balloon Atherectomy w/ placement of 2.5 x 20 mm Synergy Stent, Distal LM-into the Ostium of LAD Stented w/ 4.0 x 16 mm Synergy Stent 06/2017PTCA-OM 04/2017 PCI-LAD with a 2.75x38 Promus Premier drug eluting stent. 12/15/13 RAYMON of Right Posterior Lateral (Mid) wIth 3.0 x 2.8 Cypher, followed upstream with 3.0 x 8 Cypher, RAYMON of Right PDA (Ostial) with 25 x 28 Cypher 09/17/2007 Pancytopenia (Chronic) D61.818 Hypertension (Chronic) I10 Hypothyroidism (Chronic) E03.9 Hyperlipidemia (Chronic) E78.5 Diabetes mellitus, type II (Chronic) E11.9 Venous insufficiency (Chronic) CHF (congestive heart failure) (Chronic) I50.9 NSTEMI (non-ST elevated myocardial infarction) (Chronic) Onset Date: ~09/16/17 I21.4 Intermittent claudication (Chronic) I73.9 Tricuspid valve insufficiency (Chronic) I07.1 Mitral valve insufficiency (Chronic) I34.0 Obesity (BMI 30.0-34.9) (Chronic) E66.9 Anemia D64.[address] Joyce 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) K75.81, K74.60 Allergies atorvastatin calcium [From Lipitor] Adverse Reaction (Verified 08/16/18 15:29) Unknown rosiglitazone maleate [From Avandia] Adverse Reaction (Verified 08/16/18 15:29) Other Home Medications: Ambulatory Orders Medication Instructions Recorded Aspirin [Aspirin, Baby] 81 mg PO DAILY@0800 06/30/17 Nitroglycerin [Nitrostat] 0.4 mg SL PRN PRN 06/30/17 Pravastatin [Pravachol] 80 mg PO DAILY 06/30/17 furosemide 40 mg tablet 40 mg PO BID tab 11/19/17 Multivitamins,Therapeutic 1 tab PO DAILY 02/01/18 [Multivitamin] Albuterol Inhaler [Ventolin Hfa] 2 puff INHALATION PRN PRN 02/02/18 Ticagrelor [Brilinta] 90 mg PO BID 02/24/18 isosorbide mononitrate ER 60 mg 60 mg PO BID tab 03/01/18 tablet,extended release 24 hr ranolazine ER 1,000 mg 500 mg PO BID tab 03/01/18 tablet,extended release,12 hr carvedilol 12.5 mg tablet 6.25 mg PO BID 04/05/18 losartan 50 mg tablet 50 mg PO DAILY #90 tab 04/05/18 amlodipine 5 mg tablet 2.5 mg PO QDAY tab 04/30/18 tramadol 50 mg tablet 50 mg PO Q6H PRN 04/30/18 Cholecalciferol (Vitamin D3) 5,000 unit PO DAILY 06/21/18 [Vitamin D3] Levothyroxine Sodium [Synthroid] 100 mcg PO DAILY 06/21/18 Insulin Glargine,Hum.rec.anlog 30 unit SC DAILY 08/16/18 [Toujeo Max Solostar] Insulin Regular, Human [Humulin R] 8 units SQ TID 08/16/18 Surgical History: Surgical History (Last Reviewed 08/16/18 @ 20:11 by Marty Castillo DO) History of spinal fusion (Chronic) Z98.1 anterior History of coronary artery stent placement (Chronic) Z95.5 PTCA-ostail/prox LCx @ [facility] 11/09/2017 PTCA-Cutting Balloon Atherectomy w/ placement of 2.5 x 20 mm Synergy Stent, Distal LM-into the Ostium of LAD Stented w/ 4.0 x 16 mm Synergy Stent 06/2017PTCA-OM 04/2017 PCI-LAD with a 2.75x38 Promus Premier drug eluting stent. 12/15/13 RAYMON of Right Posterior Lateral (Mid) wIth 3.0 x 2.8 Cypher, followed upstream with 3.0 x 8 Cypher, RAYMON of Right PDA (Ostial) with 25 x 28 Cypher 09/17/2007 S/P PTCA (percutaneous transluminal coronary angioplasty) (Chronic) Onset Date: ~11/09/17 Z98.61 PCI PTCA and laser atherectomy of proximal Circumflex 02/03/2018 PTCA-ostial/prox LCx @ [facility] 11/09/2017 PTCA-Cutting Balloon Atherectomy w/ placement of 2.5 x 20 mm Synergy Stent, Distal LM-into the Ostium of LAD Stented w/ 4.0 x 16 mm Synergy Stent 06/2017PTCA-OM 04/2017 PCI-LAD with a 2.75x38 Promus Premier drug eluting stent. 12/15/13 RAYMON of Right Posterior Lateral (Mid) wIth 3.0 x 2.8 Cypher, followed upstream with 3.0 x 8 Cypher, RAYMON of Right PDA (Ostial) with 25 x 28 Cypher 09/17/2007 History of coronary artery stent placement (Chronic) Z95.5 History of appendectomy Z90.49 History of cholecystectomy Z90.49 History of tonsillectomy and adenoidectomy Z98.890 Surgical History: angioplasty, appendectomy, cholecystectomy, tonsillectomy, - - Spinal fusion Psychiatric History: No pertinent psych hx NEONATOLOGIST History: No pertinent NEONATOLOGIST history Smoking Status: Never smoker Tobacco Use: Non-smoker Alcohol: None Drugs: None - *Family History Maternal Family History: Family History (Last Reviewed 08/16/18 @ 20:11 by Marty Castillo DO) Mother CAD (coronary artery disease) Father CAD (coronary artery disease) History Items: Heart Disease - CAD, - - Schizophrenia Paternal Family History: Family History (Last Reviewed 08/16/18 @ 20:11 by Marty Castillo DO) Mother CAD (coronary artery disease) Father CAD (coronary artery disease) History Items: Heart Disease Review of Systems Constitutional: Denies: Anorexia, Chills, Fever Eyes: Denies: Blurred vision, Double vision HEENT: Denies: Head Aches, Sinus Congestion, Sinus Drainage Cardiovascular: Reports: Chest Pain, Edema Respiratory: Reports: Cough, Shortness of Breath, Shortness of breath upon exertion Gastrointestinal: Reports: Nausea, Vomiting. Denies: Abdominal Pain Genitourinary: Denies: Dysuria Musculoskeletal: Denies: Joint Pain, Joint Tenderness Skin: Denies: Dryness, Jaundice Neurological: Denies: Numbness, Tingling, Focal weakness Psychiatric: Denies: Anxiety, Depression Hematologic/ Lymphatic: Denies: Easy Bruising, Easy Bleeding, Hx of blood clot Comment: A 10 point review of systems were negative except as mentioned in the history of present illness and the other review of systems. VTE Information - Inpt Only VTE Present on Admission: No VTE Mechan Device Prophylaxis: SCD's VTE Pharm Prophylaxis ordered?: No Reason prophylaxis not ordered:: Medical Contraindication Patient Problems: Active and Suspected Problems (Last Reviewed 04/05/18 @ 13:48 by Genet Barger) Chest pain (Acute) Elevated troponin (Acute) Thrombocytopenia (Acute) - Physical Exam General: Alert, Cooperative, No apparent distress, Well developed, Well nourished HEENT: Atraumatic, Normocephalic, - - No scleral icterus Oral: Moist Mucosa, No Gingival or Mucosal Lesions/ Ulcerations Neck: No Nodes, Thyroid Normal Size and Texture Lungs: Clear to auscultation, Normal air movement, No rhonchi, No wheeze Cardiovascular: Regular rate, Regular Rhythm, Normal S1, Normal S2, No murmurs Abdomen: Bowel Sounds Present, Soft, Non Tender, Non-Distended Extremities: No Calf Tenderness, Edema Skin: No rashes, No breakdown Musculoskeletal: No Tenderness to Palpation of Joints or Extremities, No Muscle Wasting Neurological: Sensory exam intact to light touch and pain Psych/Mental Status: Appropriate, Anxious Vital Signs Temp Pulse Resp BP Pulse Ox 37.2 C 55 L 14 133/58 H 99 08/16/18 15:29 08/16/18 18:07 08/16/18 18:07 08/16/18 18:07 08/16/18 18:07 Oxygen Delivery Method Room Air Weight: 93.077 kg Body Mass Index (BMI) 32.1 Finger Stick Blood Glucose 270 Laboratory Tests Past 24 Hrs 08/16/18 08/16/18 08/16/18 16:30 16:30 16:30 WBC 2.9 L RBC 3.36 L Hgb 10.2 L Hct 31.5 L MCV 93.8 MCH 30.4 MCHC 32.4 RDW 14.2 RDW Differential 48.4 H Plt Count 36 L* MPV 10.2 Immature Gran % (Auto) 0.000 Neut % (Auto) 58.2 Lymph % (Auto) 32.1 [place] % (Auto) 4.5 Eos % (Auto) 4.5 Baso % (Auto) 0.7 Absolute Neuts (auto) 1.7 L Absolute Lymphs (auto) 0.93 Total Counted Not Reportable Diff Path Review May foll Platelet Estimate MKD DEC RBC Morphology NORM C+C D-Dimer Quant (PE/DVT) 2.50 H* Sodium 139 Potassium 4.6 Chloride 106 Carbon Dioxide 24.0 Anion Gap 9 BUN 14 Creatinine 0.78 Estim Creat Clear Calc 44.36 Est GFR (MDRD) Af Amer 91 Est GFR (MDRD) Non-Af 76 BUN/Creatinine Ratio 17.9 Glucose 257 H Calcium 8.5 Troponin I 0.181 H Assessment/Plan All Active Problems (Last Reviewed 04/05/18 @ 13:48 by Genet Barger) Chest pain (Acute) Elevated troponin (Acute) Thrombocytopenia (Acute) Chest pain (Acute) Cognitive changes (Resolved) NSTEMI (non-ST elevated myocardial infarction) (Resolved) Unstable angina (Resolved) 1. Chest pain Concern is for cardiac equivalent given the patient's extensive coronary artery disease She had a left circumflex stent placed in November Heart cath in February showed severe diffuse disease involving the LAD, left circumflex RCA and PDA. It was recommended that time for the patient to continue with aggressive medical management. Discussed with Dr. Kumar, plan as of right now is to have her undergo a nuclear chemical stress test in the morning Patient will continue with aspirin, carvedilol, ticagrelor 2. Elevated troponins Has consistently been elevated and her labs back to 2016 We will continue to monitor and make adjustments accordingly 3. Thrombocytopenia Appears to be chronic Unclear etiology Given the patient's elevated d-dimer I think be important to rule out an indolent DIC We will check a peripheral smear as well as an INR Would be a limitation if patient does require repeat cardiac catheterization 4. Diabetes mellitus type 2 Continue with her home insulins plus sliding scale to supplement prandial insulin regimen if needed 5. Psychiatric disorder Per history, patient has schizophrenia Given the patient's concern about things have been adequately treated, including tuberculosis and a remote history of pneumonia, patient is very perseverant on these issues. I brought this up to the patient's attention and express that her CT angiogram of the chest was completely normal rule ruling out pneumonia and did not show any evidence of any tuberculosis though the patient is never been diagnosed with tuberculosis itself but may have had latent TB. Nonetheless, patient has a salmon health anxiety and I did encourage patient follow-up with counselor which she stated that she saw several days ago. Patient seem to be dismissive that it would be of benefit for her but I did continue to encourage her to follow-up to help her coping with her multiple medical issues. 6. DVT prophylaxis with SCDs. Hold off on chemical prophylaxis given thrombocytopenia 7. Advanced care planning: Discussed with the patient. Patient wishes to be full CODE STATUS. She wishes to have intubation in the event of respiratory arrest and PEG tube in the event that she cannot swallow safely on her own. Code Visit OBSV E&M: [id number] Initial observation care L3
[2018-08-16 20:43] LABS: International Normalized Ratio 1.2; Prothrombin Time (Protime)PT. 14.7 SECONDS (11.7-14.9)
[2018-08-16 21:25] LABS: Bedside Glucose 217 mg/dL (70-110)
[2018-08-16] MEDS: traMADol 50 MG Tablet PO (23:15)
[2018-08-16] MEDS: Isosorbide Mononitrate 60 MG Tablet PO (23:16)
[2018-08-16] MEDS: TICAGRELOR 90 MG TABLET PO (23:16)
[2018-08-16] MEDS: Carvedilol 6.25 MG Tablet PO (23:16)
[2018-08-16] MEDS: Ranolazine 500 MG Tablet PO (23:16)
[2018-08-16] MEDS: Pravastatin 80 MG Tablet PO (23:16)
[2018-08-16] MEDS: Furosemide 40 MG Tablet PO (23:18)
[2018-08-16 23:26] LABS: Bedside Glucose 194 mg/dL (70-110)
[2018-08-17] VITALS (11 sets, daily range): BP systolic 97–129; BP diastolic 48–69; PULSE 50–60; RESP 12–18; TEMP 36.4–36.7; O2SAT 97–99
[2018-08-17] MEDS: Losartan Potassium 50 MG Tablet PO (05:50)
[2018-08-17] MEDS: Levothyroxine 100 MCG Tablet PO (05:50)
[2018-08-17] MEDS: Aspirin 81 MG TAB.CHEW PO (05:50)
[2018-08-17] MEDS: TICAGRELOR 90 MG TABLET PO ×2 (05:50→22:30)
--- NOTE | 2018-08-17 05:55 | EKG12_ITS ---
Test Reason : AM EKG Blood Pressure : / mmHG Vent. Rate : 049 BPM Atrial Rate : 049 BPM P-R Int : 202 ms QRS Dur : 096 ms QT Int : 596 ms P-R-T Axes : 057 -02 091 degrees QTc Int : [address] & T wave abnormality, consider lateral ischemia Prolonged QT Abnormal ECG When compared with ECG of 16-AUG-2018 20:19, MANUAL COMPARISON REQUIRED, DATA IS UNCONFIRMED Confirmed by SILVINA CHEW, NILSON ([id number]), editor continuity and script THAD HOOKER ([id number]) on 08/20/2018 5:34:10 PM Referred By: MARLENE Confirmed By:NILSON COOL MD
[2018-08-17 06:05] LABS: Bedside Glucose 166 mg/dL (70-110)
[2018-08-17 06:47] LABS: Hematocrit 28.5 % (37-47); Hemoglobin 9.3 g/dl (12.0-15.0); Mean Corp Hgb Conc 32.6 g/gl (32-36); Mean Corpuscular Hgb 30.5 pg (27.0-32.0); Mean Corpuscular Volume 93.4 fL (81-99); Mean Platelet Vol. 9.7 fl (6.2-12.0); Platelet Count 112 K/mm3 (150-450); RBC Distribution Width CV 14.2 % (11.6-14.6); RBC Distribution Width SD 48.1 fl (35.1-43.9); Red Blood Count 3.05 M/mm3 (4.2-5.4); White Blood Count 2.7 K/mm3 (4.4-11.0)
[2018-08-17 06:52] LABS: International Normalized Ratio 1.2; Prothrombin Time (Protime)PT. 14.8 SECONDS (11.7-14.9)
[2018-08-17 06:53] LABS: Partial Thromboplast Time 30.8 Seconds (24.1-36.2)
[2018-08-17 06:54] LABS: Scan Indicated on CBC? Y/N NO
[2018-08-17 07:06] LABS: ALB/GLOB Ratio 0.9 RATIO (0.9-2.4); AST(SGOT) 32 U/L (15-37); Alanine Aminotransfer ALT/SGPT 27 U/L (13-56); Alkaline Phosphatase 82 U/L (45-117); Anion Gap 10 (5-15); BUN 14 mg/dL (7-18); BUN/Creat Ratio 21.2 RATIO (10-20); Chloride 105 mmol/L (98-107); Cholesterol 123 mg/dL (200); Creatinine, Serum 0.66 mg/dL (0.55-1.02); EST Glomerular Filtration Rate 92 mL/min (>60); Est Glom Filt Rate - Afr Amer 111 mL/min (>60); Estimated Creatinine Clearance 44.36 ml/min; Globulin 3.2 g/dL (2.2-4.2); Glucose 152 mg/dL (74-106); High Density Lipoprotein 52 mg/dL; Potassium 3.5 mmol/L (3.5-5.1); Protein, Total 6.2 g/dL (6.4-8.2); Sodium Level 142 mmol/L (136-145); Triglycerides 75 mg/dL; Very Low Density Lipoprotein 15 mg/dL (5-40)
--- NOTE | 2018-08-17 10:45 | PCM.CONS.C ---
Problem List (1) Chest pain Status: Acute (2) Elevated troponin Status: Acute (3) CAD (coronary artery disease) Status: Chronic Qualifiers: Coronary Disease-Associated Artery/Lesion type: jackson artery [place] vs. transplanted heart: jackson heart (4) S/P PTCA (percutaneous transluminal coronary angioplasty) Status: Chronic Comment: PCI PTCA and laser atherectomy of proximal Circumflex 02/03/2018 PTCA-ostial/prox LCx @ [facility] 11/09/2017 PTCA-Cutting Balloon Atherectomy w/ placement of 2.5 x 20 mm Synergy Stent, Distal LM-into the Ostium of LAD Stented w/ 4.0 x 16 mm Synergy Stent 06/2017PTCA-OM 04/2017 PCI-LAD with a 2.75x38 Promus Premier drug eluting stent. 12/15/13 RAYMON of Right Posterior Lateral (Mid) wIth 3.0 x 2.8 Cypher, followed upstream with 3.0 x 8 Cypher, RAYMON of Right PDA (Ostial) with 25 x 28 Cypher 09/17/2007 (5) Non-rheumatic aortic stenosis Status: Chronic (6) Hyperlipidemia Status: Chronic Qualifiers: Hyperlipidemia type: unspecified Qualified Code(s): E78.5 - Hyperlipidemia, unspecified (7) Hypertension Status: Chronic Qualifiers: Hypertension type: essential hypertension Qualified Code(s): I10 - Essential (primary) hypertension (8) Diabetes mellitus, type II Status: Chronic Qualifiers: Diabetes mellitus long-term insulin use: with tank terminal gauger use Diabetes mellitus complication status: with unspecified complications Qualified Code(s): E11.8 - Type 2 diabetes mellitus with unspecified complications; Z79.4 - alf (current) use of insulin (9) Pancytopenia Status: Chronic (10) Schizophrenia Status: Chronic Qualifiers: Schizophrenia type: unspecified Qualified Code(s): F20.9 - Schizophrenia, unspecified Reason for Consult Date of Consultation: 08/17/18 History of Present Illness: The patient is a 78 year old F White female with a past cardiovascular history which has included hyperlipidemia, hypertension, CAD, PCI, superimposed upon diabetes mellitus, pancytopenia, and a report of schizophrenia who was referred for evaluation of recurrent chest pain and recurrent indeterminate troponin I levels. The patient states she has had chest pain which has been both sharp and off. She describes it over the left side of her chest to her left shoulder. May or may not have been associated with any sensation of nausea or emesis. She does not recall having any acute respiratory issues are becoming acutely diaphoretic. There has been no near syncope or syncope. She has chronic lower extremity peripheral pitting edema especially of the left lower extremity. She presented back to the hospital for her 4 mentioned symptoms. She was found to have indeterminate troponin levels which she has had notation of chronically indeterminate and/or elevated troponin I levels in the past. Her ECG did not appear to demonstrate any acute changes. Her chest x-ray did not appear to demonstrate any acute changes per radiology. She was placed in the PCU for further evaluation care. She was requested to have further evaluation with a pharmacologic stress nuclear imaging study. She has denied any obvious ongoing orthopnea or PND. There has been no obvious palpitations. Again there has been no near syncope or syncope. Past Medical History Allergies/Adverse Reactions: Allergies atorvastatin calcium [From Lipitor] Adverse Reaction (Verified 08/16/18 15:29) Unknown rosiglitazone maleate [From Avandia] Adverse Reaction (Verified 08/16/18 15:29) Other Home Medications: Ambulatory Orders Medication Instructions Recorded RX: Aspirin [Aspirin, Baby] 81 mg PO DAILY@0800 06/30/17 RX: Nitroglycerin [Nitrostat] 0.4 mg SL PRN PRN 06/30/17 RX: Pravastatin [Pravachol] 80 mg PO DAILY 06/30/17 furosemide 40 mg tablet 40 mg PO BID tab 11/19/17 RX: Multivitamins,Therapeutic 1 tab PO DAILY 02/01/18 [Multivitamin] RX: Albuterol Inhaler [Ventolin 2 puff INHALATION PRN PRN 02/02/18 Hfa] RX: Ticagrelor [Brilinta] 90 mg PO BID 02/24/18 isosorbide mononitrate ER 60 mg 60 mg PO BID tab 03/01/18 tablet,extended release 24 hr ranolazine ER 1,000 mg 500 mg PO BID tab 03/01/18 tablet,extended release,12 hr carvedilol 12.5 mg tablet 6.25 mg PO BID 04/05/18 losartan 50 mg tablet 50 mg PO DAILY #90 tab 04/05/18 amlodipine 5 mg tablet 2.5 mg PO QDAY tab 04/30/18 tramadol 50 mg tablet 50 mg PO Q6H PRN 04/30/18 RX: Cholecalciferol (Vitamin D3) 5,000 unit PO DAILY 06/21/18 [Vitamin D3] RX: Levothyroxine Sodium 100 mcg PO DAILY 06/21/18 [Synthroid] RX: Insulin Glargine,Hum.rec.anlog 30 unit SC DAILY 08/16/18 [Toujeo Max Solostar] RX: Insulin Regular, Human 8 units SQ TID 08/16/18 [Humulin R] Past Medical History (Chronic Problems): Chronic Problems (Last Reviewed 08/16/18 @ 20:11 by Marty Castillo DO) Thrombocytopenia (Chronic) CAD (coronary artery disease) (Chronic) History of spinal fusion (Chronic) anterior Non-rheumatic aortic stenosis (Chronic) History of coronary artery stent placement (Chronic) PTCA-ostail/prox LCx @ [facility] 11/09/2017 PTCA-Cutting Balloon Atherectomy w/ placement of 2.5 x 20 mm Synergy Stent, Distal LM-into the Ostium of LAD Stented w/ 4.0 x 16 mm Synergy Stent 06/2017PTCA- 04/2017 PCI-LAD with a 2.75x38 Promus Premier drug eluting stent. 12/15/13 RAYMON of Right Posterior Lateral (Mid) wIth 3.0 x 2.8 Cypher, followed upstream with 3.0 x 8 Cypher, RAYMON of Right PDA (Ostial) with 25 x 28 Cypher 09/17/2007 Chronic systolic (congestive) heart failure (Chronic) Schizophrenia (Chronic) S/P PTCA (percutaneous transluminal coronary angioplasty) (Chronic ~11/09/17) PCI PTCA and laser atherectomy of proximal Circumflex 02/03/2018 PTCA-ostial/prox LCx @ [facility] 11/09/2017 PTCA-Cutting Balloon Atherectomy w/ placement of 2.5 x 20 mm Synergy Stent, Distal LM-into the Ostium of LAD Stented w/ 4.0 x 16 mm Synergy Stent 06/2017PTCA- 04/2017 PCI-LAD with a 2.75x38 Promus Premier drug eluting stent. 12/15/13 RAYMON of Right Posterior Lateral (Mid) wIth 3.0 x 2.8 Cypher, followed upstream with 3.0 x 8 Cypher, RAYMON of Right PDA (Ostial) with 25 x 28 Cypher 09/17/2007 History of coronary artery stent placement (Chronic) Atherosclerotic heart disease jackson coronary artery w/angina pectoris (Chronic) PCI PTCA and laser atherectomy of proximal Circumflex 02/03/2018 PTCA-ostail/prox LCx @ [facility] 11/09/2017 PTCA-Cutting Balloon Atherectomy w/ placement of 2.5 x 20 mm Synergy Stent, Distal LM-into the Ostium of LAD Stented w/ 4.0 x 16 mm Synergy Stent 06/2017PTCA-OM 04/2017 PCI-LAD with a 2.75x38 Promus Premier drug eluting stent. 12/15/13 RAYMON of Right Posterior Lateral (Mid) wIth 3.0 x 2.8 Cypher, followed upstream with 3.0 x 8 Cypher, RAYMON of Right PDA (Ostial) with 25 x 28 Cypher 09/17/2007 Pancytopenia (Chronic) Hypertension (Chronic) Hypothyroidism (Chronic) Hyperlipidemia (Chronic) Diabetes mellitus, type II (Chronic) Venous insufficiency (Chronic) CHF (congestive heart failure) (Chronic) NSTEMI (non-ST elevated myocardial infarction) (Chronic ~09/16/17) Intermittent claudication (Chronic) Tricuspid valve insufficiency (Chronic) Mitral valve insufficiency (Chronic) Obesity (BMI 30.0-34.9) (Chronic) Surgical History: angioplasty, appendectomy, cholecystectomy, tonsillectomy, - - Spinal fusion Psychiatric History: No pertinent psych hx 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: 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 history - *Family History Maternal Family History: Family History (Last Reviewed 08/16/18 @ 20:11 by Marty Castillo DO) Mother CAD (coronary artery disease) Father CAD (coronary artery disease) History Items: Heart Disease - CAD, - - Schizophrenia Paternal Family History: Family History (Last Reviewed 08/16/18 @ 20:11 by Marty Castillo DO) Mother CAD (coronary artery disease) Father CAD (coronary artery disease) History Items: Heart Disease Smoking Status: Never smoker Tobacco Use: Non-smoker Alcohol: None Drugs: None Review of Systems - Review of Systems General: Denies: Fever, Night Sweats, Fatigue Cardiovascular: Reports: Chest Discomfort, Chest Discomfort at Rest. Denies: Shortness of Breath, Orthopnea, PND, Peripheral Edema, Palpitations, Lightheadedness, Dizziness, Near Syncope, Syncope Respiratory: Denies: Cough, Sputum Production, Hemoptysis Gastrointestinal: Reports: Nausea, Emesis. Denies: Hematemesis, Hematochezia, Melena Genitourinary: Denies: Dysuria, Hematuria Skin: Denies: Rash Subjectve: This is a 78-year-old white female who appears be resting comfortably at the moment in no acute distress. Objective: Vital Signs Temp Pulse Resp BP Pulse Ox 97.9 F 60 18 101/59 L 99 08/17/18 05:48 08/17/18 07:32 08/17/18 05:48 08/17/18 05:48 08/17/18 05:48 Oxygen Delivery Method Room Air Weight: 198 lb 6.656 oz Body Mass Index (BMI) 31.5 Finger Stick Blood Glucose 270 Intake and Output for Last 24 Hours 08/15/18 08/16/18 08/17/18 23:59 23:59 23:59 Intake Total 300 / 300 Balance 300 / 300 General: Awake, Alert, Oriented x 3, Cooperative, No Acute Distress HEENT: Atraumatic, Normocephalic, PERRL, EOMI, Sclera Non Icteric Oral: Moist Mucosa Neck: Supple, Good ROM, No JVD Lungs: Clear to auscultation Cardiovascular: Regular Rhythm, Normal S1, Normal S2 Murmur Murmur: Grade 2/6, Soft, Mid Systolic, LLSB, LVOT, Sternal Notch Vascular: No Carotid Bruits Abdomen: Bowel Sounds Present, Soft, Non Tender Extremities: Trace RLE Edema, Mild LLE Edema Psych/Mental Status: Appropriate 08/16/18 16:30: WBC 2.9 L, RBC 3.36 L, Hgb 10.2 L, Hct 31.5 L, MCV 93.8, MCH 30.4, MCHC 32.4, RDW 14.2, RDW Differential 48.4 H, Plt Count 36 L*, MPV 10.2, Immature Gran % (Auto) 0.000, Neut % (Auto) 58.2, Lymph % (Auto) 32.1, Dickson % (Auto) 4.5, Eos % (Auto) 4.5, Baso % (Auto) 0.7, Absolute Neuts (auto) 1.7 L, Total Counted Not Reportable 08/16/18 16:30: D-Dimer Quant (PE/DVT) 2.50 H* 08/16/18 16:30: Sodium 139, Potassium 4.6, Chloride 106, Carbon Dioxide 24.0, Anion Gap 9, BUN 14, Creatinine 0.78, Est GFR (MDRD) Af Amer 91, Est GFR (MDRD) Non-Af 76, BUN/Creatinine Ratio 17.9, Glucose 257 H, Calcium 8.5, Troponin I 0.181 H 08/16/18 20:27: PT 14.7, INR 1.2 08/16/18 20:27: Troponin I 0.197 H 08/16/18 22:54: Troponin I 0.184 H 08/17/18 02:36: Troponin I 0.181 H 08/17/18 06:11: WBC 2.7 L, RBC 3.05 L, Hgb 9.3 L, Hct 28.5 L, MCV 93.4, MCH 30.5, MCHC 32.6, RDW 14.2, RDW Differential 48.1 H, Plt Count 112 L, MPV 9.7 08/17/18 06:11: Sodium 142, Potassium 3.5, Chloride 105, Carbon Dioxide 27.0, Anion Gap 10, BUN 14, Creatinine 0.66, Est GFR (MDRD) Af Amer 111, Est GFR (MDRD) Non-Af 92, BUN/Creatinine Ratio 21.2 H, Glucose 152 H, Calcium 8.0 L, Total Bilirubin 1.00, Triglycerides 75, Cholesterol 123, LDL Cholesterol 56, VLDL Cholesterol 15, HDL Cholesterol 52 08/17/18 06:11: PT 14.8, INR 1.2, APTT 30.8 Rhythm:Sinus rhythm EKG:Sinus rhythm; nonspecific ST/T-wave abnormality Echocardiogram: 02/25/2018, [facility]: Left ventricular systolic function were reported as mildly decreased; sclerotic aortic valve; no pericardial effusion reported 70 09/25/17: [facility]: Left ventricle considered to have mild concentric LVH with mildly decreased LVEF of 53% was subtle hypokinesis in the mid lateral and posterior clarke on some views; mild left atrial enlargement; aortic valve sclerosis without significant stenosis; trivial to 1+ AI; mild to moderate MR; mild TR; estimated RV systolic pressure approximately 45 mmHg Cardiac Cath: 02/26/2018: [facility]: Impression: Severe diffuse disease involving the mid to distal aspect of the LAD; overall patent LCx stent in the proximal segment with the distal LCx has severe diffuse disease that appears similar to the previous angiogram; mild disease involving the proximal RCA and severe diffuse disease involving the distal RCA and PDA and a right dominant system; recommendation for medical therapy PCI: 02/05/20: F: PTCA and laser atherectomy of the proximal LCx with severe in-stent restenosis CXR:Preliminary evaluation: No acute cardiopulmonary disease process reported Chest CT no reported great vessel disease or thromboembolic disease Assessment/Plan 1. Chest pain The patient has recurrent chest pain. It appears to be somewhat atypical. Mrs. Coupled with chronically indeterminate troponin I levels. This is superimposed on a history of underlying CAD requiring tertiary care center evaluation and care/intervention. At the present time the patient will continue non invasive evaluation. This will include a pharmacologic stress nuclear imaging study. Depending upon the evaluation/findings she may or may not need repeat evaluation in the cardiac catheterization laboratory. If this does require consideration can be given, based on her past history, if she requires transferred back to a tertiary care center as such as the [facility] for additional evaluation and care. 2. Indeterminate troponin I level The patient has chronically elevated troponin I levels. This does make it challenging to further evaluate her symptoms, etc., without additional objective findings. This at the present time she will continue her current medical management is deemed appropriate and she will undergo her noninvasive evaluation. 3. CAD status post PCI The patient has a history of previous LAD and PCI. Again she has had intervention performed at the [facility] based upon the complexity of her underlying disease process. At the present time she will continue to be monitored. She will continue medical management. She will continue her noninvasive evaluation. 4. Aortic valve disease She does have a history of aortic valve sclerosis with no report of significant aortic valve stenosis. The same time she does have a reported both MR and TR. Her valvular heart disease can be reassessed is deemed appropriate. 5. Hyperlipidemia She will continue risk factor evaluation care is deemed appropriate. 6. Hypertension Her blood pressures will be followed. She will continue medical therapy. 7. Diabetes mellitus She will continue under the care of internal medicine. 8. Pancytopenia The patient has had waxing and waning concerns with respect to her WBC, H&H, and her platelet level. This has to be taken into consideration with respect to her medical therapy and her candidacy for further invasive evaluation her care. 9. Schizophrenia The patient carries a diagnosis of schizophrenia. It is unclear as to how this interacts with her ongoing symptoms, etc. Comment: The patient's case was discussed and reviewed with patient and previously with The [facility] emergency department staff. This note was generated using a voice recognition system and there may be incorrect words, spelling or punctuation that were not noted when reviewing the office note prior to saving.
--- NOTE | 2018-08-17 10:49 | CON.PCM_ITS ---
Problem List (1) Chest pain Status: Acute (2) Elevated troponin Status: Acute (3) CAD (coronary artery disease) Status: Chronic Qualifiers: Coronary Disease-Associated Artery/Lesion type: comanche artery [place] vs. transplanted heart: comanche heart (4) S/P PTCA (percutaneous transluminal coronary angioplasty) Status: Chronic Comment: PCI PTCA and laser atherectomy of proximal Circumflex 02/03/2018 PTCA-ostial/prox LCx @ [facility] 11/09/2017 PTCA-Cutting Balloon Atherectomy w/ placement of 2.5 x 20 mm Synergy Stent, Dis james LM-into the Ostium of LAD Stented w/ 4.0 x 16 mm Synergy Stent 06/2017PTCA- OM 04/2017 PCI-LAD with a 2.75x38 Promus Premier drug eluting stent. 12/15/13 RAYMON of Right Posterior Lateral (Mid) wIth 3.0 x 2.8 Cypher, followed upstream with 3.0 x 8 Cypher, RAYMON of Right PDA (Ostial) with 25 x 28 Cypher 09/17/2007 (5) Non-rheumatic aortic stenosis Status: Chronic (6) Hyperlipidemia Status: Chronic Qualifiers: Hyperlipidemia type: unspecified Qualified Code(s): E78.5 - Hyperlipidemia, unspecified (7) Hypertension Status: Chronic Qualifiers: Hypertension type: essential hypertension Qualified Code(s): I10 - Essential (primary) hypertension (8) Diabetes mellitus, type II Status: Chronic Qualifiers: Diabetes mellitus termite exterminator insulin use: with termite exterminator use Diabetes mellitus complication status: with unspecified complications Qualified Code(s): E11.8 - Type 2 diabetes mellitus with unspecified complications; Z79.4 - termite exterminator (current) use of insulin (9) Pancytopenia Status: Chronic (10) Schizophrenia Status: Chronic Qualifiers: Schizophrenia type: unspecified Qualified Code(s): F20.9 - Schizophrenia, unspecified Reason for Consult Date of Consultation: 08/17/18 History of Present Illness: The patient is a 78 year old F White female with a past cardiovascular history which has included hyperlipidemia, hypertension, CAD, PCI, superimposed upon diabetes mellitus, pancytopenia, and a report of schizophrenia who was referred for evaluation of recurrent chest pain and recurrent indeterminate troponin I levels. The patient states she has had chest pain which has been both sharp and off. She describes it over the left side of her chest to her left shoulder. May or may not have been associated with any sensation of nausea or emesis. She does not recall having any acute respiratory issues are becoming acutely diaphoretic. There has been no near syncope or syncope. She has chronic lower extremity peripheral pitting edema especially of the left lower extremity. She presented back to the hospital for her 4 mentioned symptoms. She was found to have indeterminate troponin levels which she has had notation of chronically indeterminate and/or elevated troponin I levels in the past. Her ECG did not appear to demonstrate any acute changes. Her chest x-ray did not appear to demonstrate any acute changes per radiology. She was placed in the PCU for further evaluation care. She was requested to have further evaluation with a pharmacologic stress nuclear imaging study. She has denied any obvious ongoing orthopnea or PND. There has been no obvious palpitations. Again there has been no near syncope or syncope. Past Medical History Allergies/Adverse Reactions: Allergies atorvastatin calcium [From Lipitor] Adverse Reaction (Verified 08/16/18 15:29) Unknown rosiglitazone maleate [From Avandia] Adverse Reaction (Verified 08/16/18 15:29) Other Home Medications: Ambulatory Orders Medication Instructions Recorded RX: Aspirin [Aspirin, Baby] 81 mg PO DAILY@0800 06/30/17 RX: Nitroglycerin [Nitrostat] 0.4 mg SL PRN PRN 06/30/17 RX: Pravastatin [Pravachol] 80 mg PO DAILY 06/30/17 furosemide 40 mg tablet 40 mg PO BID tab 11/19/17 RX: Multivitamins,Therapeutic 1 tab PO DAILY 02/01/18 [Multivitamin] RX: Albuterol Inhaler [Ventolin 2 puff INHALATION PRN PRN 02/02/18 Hfa] RX: Ticagrelor [Brilinta] 90 mg PO BID 02/24/18 isosorbide mononitrate ER 60 mg 60 mg PO BID tab 03/01/18 tablet,extended release 24 hr ranolazine ER 1,000 mg 500 mg PO BID tab 03/01/18 tablet,extended release,12 hr carvedilol 12.5 mg tablet 6.25 mg PO BID 04/05/18 losartan 50 mg tablet 50 mg PO DAILY #90 tab 04/05/18 amlodipine 5 mg tablet 2.5 mg PO QDAY tab 04/30/18 tramadol 50 mg tablet 50 mg PO Q6H PRN 04/30/18 RX: Cholecalciferol (Vitamin D3) 5,000 unit PO DAILY 06/21/18 [Vitamin D3] RX: Levothyroxine Sodium 100 mcg PO DAILY 06/21/18 [Synthroid] RX: Insulin Glargine,Hum.rec.anlog 30 unit SC DAILY 08/16/18 [Toujeo Max Solostar] RX: Insulin Regular, Human 8 units SQ TID 08/16/18 [Humulin R] Past Medical History (Chronic Problems): Chronic Problems (Last Reviewed 08/16/18 @ 20:11 by Marty Castillo DO) Thrombocytopenia (Chronic) CAD (coronary artery disease) (Chronic) History of spinal fusion (Chronic) anterior Non-rheumatic aortic stenosis (Chronic) History of coronary artery stent placement (Chronic) PTCA-ostail/prox LCx @ [facility] 11/09/2017 PTCA-Cutting Balloon Atherectomy w/ placement of 2.5 x 20 mm Synergy Stent, Distal LM-into the Ostium of LAD Stented w/ 4.0 x 16 mm Synergy Stent 06/2017PTCA- 04/2017 PCI-LAD with a 2.75x38 Promus Premier drug eluting stent. 12/15/13 RAYMON of Right Posterior Lateral (Mid) wIth 3.0 x 2.8 Cypher, followed upstream with 3.0 x 8 Cypher, RAYMON of Right PDA (Ostial) with 25 x 28 Cypher 09/17/2007 Chronic systolic (congestive) heart failure (Chronic) Schizophrenia (Chronic) S/P PTCA (percutaneous transluminal coronary angioplasty) (Chronic ~11/09/17) PCI PTCA and laser atherectomy of proximal Circumflex 02/03/2018 PTCA-ostial/prox LCx @ [facility] 11/09/2017 PTCA-Cutting Balloon Atherectomy w/ placement of 2.5 x 20 mm Synergy Stent, Distal LM-into the Ostium of LAD Stented w/ 4.0 x 16 mm Synergy Stent 06/2017PTCA- 04/2017 PCI-LAD with a 2.75x38 Promus Premier drug eluting stent. 12/15/13 RAYMON of Right Posterior Lateral (Mid) wIth 3.0 x 2.8 Cypher, followed upstream with 3.0 x 8 Cypher, RAYMON of Right PDA (Ostial) with 25 x 28 Cypher 09/17/2007 History of coronary artery stent placement (Chronic) Atherosclerotic heart disease comanche coronary artery w/angina pectoris (Chronic) PCI PTCA and laser atherectomy of proximal Circumflex 02/03/2018 PTCA-ostail/prox LCx @ [facility] 11/09/2017 PTCA-Cutting Balloon Atherectomy w/ placement of 2.5 x 20 mm Synergy Stent, Distal LM-into the Ostium of LAD Stented w/ 4.0 x 16 mm Synergy Stent 06/2017PTCA-OM 04/2017 PCI-LAD with a 2.75x38 Promus Premier drug eluting stent. 12/15/13 RAYMON of Right Posterior Lateral (Mid) wIth 3.0 x 2.8 Cypher, followed upstream with 3.0 x 8 Cypher, RAYMON of Right PDA (Ostial) with 25 x 28 Cypher 09/17/2007 Pancytopenia (Chronic) Hypertension (Chronic) Hypothyroidism (Chronic) Hyperlipidemia (Chronic) Diabetes mellitus, type II (Chronic) Venous insufficiency (Chronic) CHF (congestive heart failure) (Chronic) NSTEMI (non-ST elevated myocardial infarction) (Chronic ~09/16/17) Intermittent claudication (Chronic) Tricuspid valve insufficiency (Chronic) Mitral valve insufficiency (Chronic) Obesity (BMI 30.0-34.9) (Chronic) Surgical History: angioplasty, appendectomy, cholecystectomy, tonsillectomy, - - Spinal fusion Psychiatric History: No pertinent psych hx TELECOMMUNICATIONS 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 History: No pertinent TELECOMMUNICATIONS ENGINEER history - *Family History Maternal Family History: Family History (Last Reviewed 08/16/18 @ 20:11 by Marty Castillo DO) Mother CAD (coronary artery disease) Father CAD (coronary artery disease) History Items: Heart Disease - CAD, - - Schizophrenia Paternal Family History: Family History (Last Reviewed 08/16/18 @ 20:11 by Marty Castillo DO) Mother CAD (coronary artery disease) Father CAD (coronary artery disease) History Items: Heart Disease Smoking Status: Never smoker Tobacco Use: Non-smoker Alcohol: None Drugs: None Review of Systems - Review of Systems General: Denies: Fever, Night Sweats, Fatigue Cardiovascular: Reports: Chest Discomfort, Chest Discomfort at Rest. Denies: Shortness of Breath, Orthopnea, PND, Peripheral Edema, Palpitations, Lightheadedness, Dizziness, Near Syncope, Syncope Respiratory: Denies: Cough, Sputum Production, Hemoptysis Gastrointestinal: Reports: Nausea, Emesis. Denies: Hematemesis, Hematochezia, Melena Genitourinary: Denies: Dysuria, Hematuria Skin: Denies: Rash Subjectve: This is a 78-year-old white female who appears be resting comfortably at the moment in no acute distress. Objective: Vital Signs Temp Pulse Resp BP Pulse Ox 97.9 F 60 18 101/59 L 99 08/17/18 05:48 08/17/18 07:32 08/17/18 05:48 08/17/18 05:48 08/17/18 05:48 Oxygen Delivery Method Room Air Weight: 198 lb 6.656 oz Body Mass Index (BMI) 31.5 Finger Stick Blood Glucose 270 Intake and Output for Last 24 Hours 08/15/18 08/16/18 08/17/18 23:59 23:59 23:59 Intake Total 300 / 300 Balance 300 / 300 General: Awake, Alert, Oriented x 3, Cooperative, No Acute Distress HEENT: Atraumatic, Normocephalic, PERRL, EOMI, Sclera Non Icteric Oral: Moist Mucosa Neck: Supple, Good ROM, No JVD Lungs: Clear to auscultation Cardiovascular: Regular Rhythm, Normal S1, Normal S2 Murmur Murmur: Grade 2/6, Soft, Mid Systolic, LLSB, LVOT, Sternal Notch Vascular: No Carotid Bruits Abdomen: Bowel Sounds Present, Soft, Non Tender Extremities: Trace RLE Edema, Mild LLE Edema Psych/Mental Status: Appropriate 08/16/18 16:30: WBC 2.9 L, RBC 3.36 L, Hgb 10.2 L, Hct 31.5 L, MCV 93.8, MCH 30.4, MCHC 32.4, RDW 14.2, RDW Differential 48.4 H, Plt Count 36 L*, MPV 10.2, Immature Gran % (Auto) 0.000, Neut % (Auto) 58.2, Lymph % (Auto) 32.1, [place] % (Auto) 4.5, Eos % (Auto) 4.5, Baso % (Auto) 0.7, Absolute Neuts (auto) 1.7 L, Total Counted Not Reportable 08/16/18 16:30: D-Dimer Quant (PE/DVT) 2.50 H* 08/16/18 16:30: Sodium 139, Potassium 4.6, Chloride 106, Carbon Dioxide 24.0, Anion Gap 9, BUN 14, Creatinine 0.78, Est GFR (MDRD) Af Amer 91, Est GFR (MDRD) Non-Af 76, BUN/Creatinine Ratio 17.9, Glucose 257 H, Calcium 8.5, Troponin I 0.181 H 08/16/18 20:27: PT 14.7, INR 1.2 08/16/18 20:27: Troponin I 0.197 H 08/16/18 22:54: Troponin I 0.184 H 08/17/18 02:36: Troponin I 0.181 H 08/17/18 06:11: WBC 2.7 L, RBC 3.05 L, Hgb 9.3 L, Hct 28.5 L, MCV 93.4, MCH 30.5, MCHC 32.6, RDW 14.2, RDW Differential 48.1 H, Plt Count 112 L, MPV 9.7 08/17/18 06:11: Sodium 142, Potassium 3.5, Chloride 105, Carbon Dioxide 27.0, Anion Gap 10, BUN 14, Creatinine 0.66, Est GFR (MDRD) Af Amer 111, Est GFR (MDRD) Non-Af 92, BUN/Creatinine Ratio 21.2 H, Glucose 152 H, Calcium 8.0 L, Total Bilirubin 1.00, Triglycerides 75, Cholesterol 123, LDL Cholesterol 56, VLDL Cholesterol 15, HDL Cholesterol 52 08/17/18 06:11: PT 14.8, INR 1.2, APTT 30.8 Rhythm:Sinus rhythm EKG:Sinus rhythm; nonspecific ST/T-wave abnormality Echocardiogram: 02/25/2018, [facility]: Left ventricular systolic function were reported as mildly decreased; sclerotic aortic valve; no pericardial effusion reported 70 09/25/17: [facility]: Left ventricle considered to have mild concentric LVH with mildly decreased LVEF of 53% was subtle hypokinesis in the mid lateral and posterior clarke on some views; mild left atrial enlargement; aortic valve sclerosis without significant stenosis; trivial to 1+ AI; mild to moderate MR; mild TR; estimated RV systolic pressure approximately 45 mmHg Cardiac Cath: 02/26/2018: [facility]: Impression: Severe diffuse disease involving the mid to distal aspect of the LAD; overall patent LCx stent in the proximal segment with the distal LCx has severe diffuse disease that appears similar to the previous angiogram; mild disease involving the proximal RCA and severe diffuse disease involving the distal RCA and PDA and a right dominant system; recommendation for medical therapy PCI: 02/05/20: F: PTCA and laser atherectomy of the proximal LCx with severe in- stent restenosis CXR:Preliminary evaluation: No acute cardiopulmonary disease process reported Chest CT no reported great vessel disease or thromboembolic disease Assessment/Plan 1. Chest pain The patient has recurrent chest pain. It appears to be somewhat atypical. Mrs. Coupled with chronically indeterminate troponin I levels. This is superimposed on a history of underlying CAD requiring tertiary care center evaluation and care/intervention. At the present time the patient will continue non invasive evaluation. This will include a pharmacologic stress nuclear imaging study. Depending upon the evaluation/findings she may or may not need repeat evaluation in the cardiac catheterization laboratory. If this does require consideration can be given, based on her past history, if she requires transferred back to a tertiary care center as such as the [facility] for additional evaluation and care. 2. Indeterminate troponin I level The patient has chronically elevated troponin I levels. This does make it challenging to further evaluate her symptoms, etc., without additional objective findings. This at the present time she will continue her current medical management is deemed appropriate and she will undergo her noninvasive evaluation. 3. CAD status post PCI The patient has a history of previous LAD and PCI. Again she has had intervention performed at the [facility] based upon the complexity of her underlying disease process. At the present time she will continue to be monitored. She will continue medical management. She will continue her noninvasive evaluation. 4. Aortic valve disease She does have a history of aortic valve sclerosis with no report of significant aortic valve stenosis. The same time she does have a reported both MR and TR. Her valvular heart disease can be reassessed is deemed appropriate. 5. Hyperlipidemia She will continue risk factor evaluation care is deemed appropriate. 6. Hypertension Her blood pressures will be followed. She will continue medical therapy. 7. Diabetes mellitus She will continue under the care of internal medicine. 8. Pancytopenia The patient has had waxing and waning concerns with respect to her WBC, H&H, and her platelet level. This has to be taken into consideration with respect to her medical therapy and her candidacy for further invasive evaluation her care. 9. Schizophrenia The patient carries a diagnosis of schizophrenia. It is unclear as to how this interacts with her ongoing symptoms, etc. Comment: The patient's case was discussed and reviewed with patient and previously with The [facility] emergency department staff. This note was generated using a voice recognition system and there may be incorrect words, spelling or punctuation that were not noted when reviewing the office note prior to saving.
--- NOTE | 2018-08-17 12:07 | PCM.PN.HOSP ---
Patient Problems: Active and Suspected Problems (Last Reviewed 08/16/18 @ 20:11 by Marty Castillo DO) Chest pain (Acute) Elevated troponin (Acute) Subjective: Patient was admitted overnight with a complaint of chest pain of several days for which she had been taking sublingual nitroglycerin about 6-8 times daily. Symptoms did not improve and so she came to the ED. She was initially noted to have troponin of 0.18 with platelets of 36,000 and d-dimer of 2.5. CT angiogram was negative for PE. She has a history of CAD status post stents. She was admitted and managed for chest pain to rule out ACS. Patient seen and examined. Chest pain had resolved. She denied any fever or chills, any palpitations or dizziness, any chest pain, any abdominal pain, any diarrhea vomiting. Review of systems otherwise negative. Labs and vitals reviewed. Cardiology on board. Vitals/I&O's: Vital Signs Temp Pulse Resp BP Pulse Ox 97.9 F 60 18 101/59 L 99 08/17/18 05:48 08/17/18 07:32 08/17/18 05:48 08/17/18 05:48 08/17/18 05:48 Oxygen Delivery Method Room Air Weight: 198 lb 6.656 oz Body Mass Index (BMI) 31.5 Finger Stick Blood Glucose 270 Intake and Output for Last 24 Hours 08/15/18 08/16/18 08/17/18 23:59 23:59 23:59 Intake Total 300 / 300 Balance 300 / 300 General: Alert, Oriented x3, Cooperative, No apparent distress HEENT: Atraumatic, PERRLA, EOMI, Normocephalic Oral: Moist Mucosa Neck: Supple, No JVD, Negative Carotid Bruits, Negative Hepatojugular Reflux, No Nodes, No Nuchal Rigidity Lungs: - - has coarse crackles in mid and lower lung clemente bilaterally. No wheezing or rhonchi Cardiovascular: Regular rate, Regular Rhythm, Normal S1, Normal S2, No murmurs Abdomen: Bowel Sounds Present, Soft, Non Tender, Non-Distended, No Hepato-splenomegaly Extremities: No clubbing, No cyanosis, No edema, Capillary Refill Less than 3 Seconds Skin: No rashes, No breakdown Musculoskeletal: No Tenderness to Palpation of Joints or Extremities Lymphatic: No Cervical, Supraclavicular, or Inguinal Adenopathy Neurological: Cranial nerves II-XII grossly intact, Neuro grossly intact, Motor Exam 5/5 strength throughout Psych/Mental Status: Flat Affect, Alert and oriented to time, place, person, mood and affect Laboratory Results 08/16/18 16:30: WBC 2.9 L, RBC 3.36 L, Hgb 10.2 L, Hct 31.5 L, MCV 93.8, MCH 30.4, MCHC 32.4, RDW 14.2, RDW Differential 48.4 H, Plt Count 36 L*, MPV 10.2, Immature Gran % (Auto) 0.000, Neut % (Auto) 58.2, Lymph % (Auto) 32.1, [place] % (Auto) 4.5, Eos % (Auto) 4.5, Baso % (Auto) 0.7, Absolute Neuts (auto) 1.7 L, Absolute Lymphs (auto) 0.93, Total Counted Not Reportable, Diff Path Review December, Platelet Estimate MKD DEC, RBC Morphology NORM C+C 08/16/18 16:30: D-Dimer Quant (PE/DVT) 2.50 H* 08/16/18 16:30: Sodium 139, Potassium 4.6, Chloride 106, Carbon Dioxide 24.0, Anion Gap 9, BUN 14, Creatinine 0.78, Estim Creat Clear Calc 44.36, Est GFR (MDRD) Af Amer 91, Est GFR (MDRD) Non-Af 76, BUN/Creatinine Ratio 17.9, Glucose 257 H, Calcium 8.5, Troponin I 0.181 H 08/16/18 20:27: PT 14.7, INR 1.2 08/16/18 20:27: Troponin I 0.197 H 08/16/18 20:42: POC Glucose 217 H 08/16/18 22:54: Troponin I 0.184 H 08/16/18 23:22: POC Glucose 194 H 08/17/18 02:36: Troponin I 0.181 H 08/17/18 05:58: POC Glucose 166 H 08/17/18 06:11: WBC 2.7 L, RBC 3.05 L, Hgb 9.3 L, Hct 28.5 L, MCV 93.4, MCH 30.5, MCHC 32.6, RDW 14.2, RDW Differential 48.1 H, Plt Count 112 L, MPV 9.7 08/17/18 06:11: Sodium 142, Potassium 3.5, Chloride 105, Carbon Dioxide 27.0, Anion Gap 10, BUN 14, Creatinine 0.66, Estim Creat Clear Calc 44.36, Est GFR (MDRD) Af Amer 111, Est GFR (MDRD) Non-Af 92, BUN/Creatinine Ratio 21.2 H, Glucose 152 H, Calcium 8.0 L, Total Bilirubin 1.00, AST 32, ALT 27, Alkaline Phosphatase 82, Total Protein 6.2 L, Albumin 3.0 L, Globulin 3.2, Albumin/Globulin Ratio 0.9, Triglycerides 75, Cholesterol 123, LDL Cholesterol 56, VLDL Cholesterol 15, HDL Cholesterol 52 08/17/18 06:11: PT 14.8, INR 1.2, APTT 30.8 Current Medications Albuterol Sulfate (Ventolin Aerosols) 2.5 mg INHALATION Q4H PRN PRN PRN Reason: SHORTNESS OF BREATH Amlodipine Besylate (Norvasc) 2.5 mg PO DAILY [facility] Aspirin (Aspirin, Baby) 81 mg PO DAILY@0800 [facility] Last Admin: 08/17/18 05:50 Dose: 81 mg Carvedilol (Coreg) 6.25 mg PO BID [facility] Last Admin: 08/16/18 23:16 Dose: 6.25 mg Cholecalciferol (Vitamin D) 5,000 unit PO DAILY [facility] Dextrose (D50w Syringe) 0 gm IV X1 PRN; Protocol PRN Reason: Hypoglycemia Furosemide (Lasix) 40 mg PO BIDLX [facility] Last Admin: 08/16/18 23:18 Dose: 40 mg Glucagon () 1 mg IM .X1 PRN PRN Reason: Hypoglycemia Insulin Glargine (Lantus (Bkc)) 30 units SC DAILY [facility] Insulin Human Lispro (Humalog Kwikpen (Bkc)) 0 unit SQ TIDAC [facility]; Protocol Last Admin: 08/17/18 10:46 Dose: Not Given Insulin Human Lispro (Humalog Kwikpen (Bkc)) 8 unit SC TIDAC [facility] Last Admin: 08/17/18 10:46 Dose: Not Given Isosorbide Mononitrate (Imdur) 60 mg PO BID [facility] Last Admin: 08/16/18 23:16 Dose: 60 mg Levothyroxine Sodium (Synthroid) 100 mcg PO DAILY@0600 [facility] Last Admin: 08/17/18 05:50 Dose: 100 mcg Losartan Potassium (Cozaar) 50 mg PO DAILY [facility] Last Admin: 08/17/18 05:50 Dose: 50 mg Magnesium Hydroxide (Milk Of Magnesia) 30 ml PO DAILY PRN PRN Reason: Constipation [facility] Nitroglycerin (Nitrostat) 0.4 mg SUBLINGUAL Q5M PRN PRN Reason: CHEST PAIN Nitroglycerin (Nitrobid) 1 inch TRANSDERM. Q6 [facility] Last Admin: 08/17/18 05:51 Dose: Not Given Pravastatin Sodium (Pravachol) 80 mg PO DAILY@2200 [facility] Last Admin: 08/16/18 23:16 Dose: 80 mg Ranolazine (Ranexa) 500 mg PO BID [facility] Last Admin: 08/16/18 23:16 Dose: 500 mg Sodium Chloride () 5 - 15 ml IV UD PRN PRN Reason: SALINE FLUSH Ticagrelor (Brilinta) 90 mg PO BID [facility] Last Admin: 08/17/18 05:50 Dose: 90 mg Tramadol HCl (Ultram) 50 mg PO Q6H PRN PRN PRN Reason: PAIN Last Admin: 08/16/18 23:15 Dose: 50 mg Medical Necessity - Tobacco Use Smoking Status: Never smoker Tobacco Use: Non-smoker Assessment/Plan All Active Problems (Last Reviewed 08/16/18 @ 20:11 by Marty Castillo DO) Chest pain (Acute) Elevated troponin (Acute) Chest pain (Acute) Cognitive changes (Resolved) NSTEMI (non-ST elevated myocardial infarction) (Resolved) Unstable angina (Resolved) 1. Chest pain to rule out ACS chest pain has resolved. troponins x 3 were 0.181->0.197->1.184 has CAD with stents in place and left heart cath in February showed severe diffuse disease involving th LAD, left circumflexa RCA and PDA. on aspirin, statin and Sl nitroglycerin prn as well as Brilinta for stress test today 2. CAD s/p stents: On aspirin, statin, carvedilol and Brilinta. 3. Type 2 diabetes mellitus: -80 units daily. Insulin sliding scale. Accu-Cheks AC at bedtime. 4. Thrombocytopenia: Improved. Will monitor. 5. Hypertension: On amlodipine, carvedilol as well as losartan. 6. Hypothyroidism: On Synthroid 7. Schizophrenia: Not on any medication for schizophrenia. To follow-up with PCP and psychiatrist upon discharge. DVT prophylaxis: SCDs. CODE STATUS: Full code Code Visit OBSV E&M: 35674 Subsequent observation care L3
--- NOTE | 2018-08-17 12:11 | PN_ITS ---
Patient Problems: Active and Suspected Problems (Last Reviewed 08/16/18 @ 20:11 by Marty Castillo DO) Chest pain (Acute) Elevated troponin (Acute) Subjective: Patient was admitted overnight with a complaint of chest pain of several days for which she had been taking sublingual nitroglycerin about 6-8 times daily. Symptoms did not improve and so she came to the ED. She was initially noted to have troponin of 0.18 with platelets of 36,000 and d-dimer of 2.5. CT angiogram was negative for PE. She has a history of CAD status post stents. She was admitted and managed for chest pain to rule out ACS. Patient seen and examined. Chest pain had resolved. She denied any fever or chills, any palpitations or dizziness, any chest pain, any abdominal pain, any diarrhea vomiting. Review of systems otherwise negative. Labs and vitals reviewed. Cardiology on board. Vitals/I&O's: Vital Signs Temp Pulse Resp BP Pulse Ox 97.9 F 60 18 101/59 L 99 08/17/18 05:48 08/17/18 07:32 08/17/18 05:48 08/17/18 05:48 08/17/18 05:48 Oxygen Delivery Method Room Air Weight: 198 lb 6.656 oz Body Mass Index (BMI) 31.5 Finger Stick Blood Glucose 270 Intake and Output for Last 24 Hours 08/15/18 08/16/18 08/17/18 23:59 23:59 23:59 Intake Total 300 / 300 Balance 300 / 300 General: Alert, Oriented x3, Cooperative, No apparent distress HEENT: Atraumatic, PERRLA, EOMI, Normocephalic Oral: Moist Mucosa Neck: Supple, No JVD, Negative Carotid Bruits, Negative Hepatojugular Reflux, No Nodes, No Nuchal Rigidity Lungs: - - has coarse crackles in mid and lower lung clemente bilaterally. No wheezing or rhonchi Cardiovascular: Regular rate, Regular Rhythm, Normal S1, Normal S2, No murmurs Abdomen: Bowel Sounds Present, Soft, Non Tender, Non-Distended, No Hepato- splenomegaly Extremities: No clubbing, No cyanosis, No edema, Capillary Refill Less than 3 Seconds Skin: No rashes, No breakdown Musculoskeletal: No Tenderness to Palpation of Joints or Extremities Lymphatic: No Cervical, Supraclavicular, or Inguinal Adenopathy Neurological: Cranial nerves II-XII grossly intact, Neuro grossly intact, Motor Exam 5/5 strength throughout Psych/Mental Status: Flat Affect, Alert and oriented to time, place, person, mood and affect Laboratory Results 08/16/18 16:30: WBC 2.9 L, RBC 3.36 L, Hgb 10.2 L, Hct 31.5 L, MCV 93.8, MCH 30.4, MCHC 32.4, RDW 14.2, RDW Differential 48.4 H, Plt Count 36 L*, MPV 10.2, Immature Gran % (Auto) 0.000, Neut % (Auto) 58.2, Lymph % (Auto) 32.1, [place] % (Auto) 4.5, Eos % (Auto) 4.5, Baso % (Auto) 0.7, Absolute Neuts (auto) 1.7 L, Absolute Lymphs (auto) 0.93, Total Counted Not Reportable, Diff Path Review December, Platelet Estimate MKD DEC, RBC Morphology NORM C+C 08/16/18 16:30: D-Dimer Quant (PE/DVT) 2.50 H* 08/16/18 16:30: Sodium 139, Potassium 4.6, Chloride 106, Carbon Dioxide 24.0, Anion Gap 9, BUN 14, Creatinine 0.78, Estim Creat Clear Calc 44.36, Est GFR (MDRD) Af Amer 91, Est GFR (MDRD) Non-Af 76, BUN/Creatinine Ratio 17.9, Glucose 257 H, Calcium 8.5, Troponin I 0.181 H 08/16/18 20:27: PT 14.7, INR 1.2 08/16/18 20:27: Troponin I 0.197 H 08/16/18 20:42: POC Glucose 217 H 08/16/18 22:54: Troponin I 0.184 H 08/16/18 23:22: POC Glucose 194 H 08/17/18 02:36: Troponin I 0.181 H 08/17/18 05:58: POC Glucose 166 H 08/17/18 06:11: WBC 2.7 L, RBC 3.05 L, Hgb 9.3 L, Hct 28.5 L, MCV 93.4, MCH 30.5, MCHC 32.6, RDW 14.2, RDW Differential 48.1 H, Plt Count 112 L, MPV 9.7 08/17/18 06:11: Sodium 142, Potassium 3.5, Chloride 105, Carbon Dioxide 27.0, Anion Gap 10, BUN 14, Creatinine 0.66, Estim Creat Clear Calc 44.36, Est GFR (MDRD) Af Amer 111, Est GFR (MDRD) Non-Af 92, BUN/Creatinine Ratio 21.2 H, Glucose 152 H, Calcium 8.0 L, Total Bilirubin 1.00, AST 32, ALT 27, Alkaline Phosphatase 82, Total Protein 6.2 L, Albumin 3.0 L, Globulin 3.2, Albumin/ Globulin Ratio 0.9, Triglycerides 75, Cholesterol 123, LDL Cholesterol 56, VLDL Cholesterol 15, HDL Cholesterol 52 08/17/18 06:11: PT 14.8, INR 1.2, APTT 30.8 Current Medications Albuterol Sulfate (Ventolin Aerosols) 2.5 mg INHALATION Q4H PRN PRN PRN Reason: SHORTNESS OF BREATH Amlodipine Besylate (Norvasc) 2.5 mg PO DAILY [facility] Aspirin (Aspirin, Baby) 81 mg PO DAILY@0800 [facility] Last Admin: 08/17/18 05:50 Dose: 81 mg Carvedilol (Coreg) 6.25 mg PO BID [facility] Last Admin: 08/16/18 23:16 Dose: 6.25 mg Cholecalciferol (Vitamin D) 5,000 unit PO DAILY [facility] Dextrose (D50w Syringe) 0 gm IV X1 PRN; Protocol PRN Reason: Hypoglycemia Furosemide (Lasix) 40 mg PO BIDLX [facility] Last Admin: 08/16/18 23:18 Dose: 40 mg Glucagon () 1 mg IM .X1 PRN PRN Reason: Hypoglycemia Insulin Glargine (Lantus (Bkc)) 30 units SC DAILY [facility] Insulin Human Lispro (Humalog Kwikpen (Bkc)) 0 unit SQ TIDAC [facility]; Protocol Last Admin: 08/17/18 10:46 Dose: Not Given Insulin Human Lispro (Humalog Kwikpen (Bkc)) 8 unit SC TIDAC [facility] Last Admin: 08/17/18 10:46 Dose: Not Given Isosorbide Mononitrate (Imdur) 60 mg PO BID [facility] Last Admin: 08/16/18 23:16 Dose: 60 mg Levothyroxine Sodium (Synthroid) 100 mcg PO DAILY@0600 [facility] Last Admin: 08/17/18 05:50 Dose: 100 mcg Losartan Potassium (Cozaar) 50 mg PO DAILY [facility] Last Admin: 08/17/18 05:50 Dose: 50 mg Magnesium Hydroxide (Milk Of Magnesia) 30 ml PO DAILY PRN PRN Reason: Constipation [facility] ([facility] Nitroglycerin (Nitrostat) 0.4 mg SUBLINGUAL Q5M PRN PRN Reason: CHEST PAIN Nitroglycerin (Nitrobid) 1 inch TRANSDERM. Q6 [facility] Last Admin: 08/17/18 05:51 Dose: Not Given Pravastatin Sodium (Pravachol) 80 mg PO DAILY@2200 [facility] Last Admin: 08/16/18 23:16 Dose: 80 mg Ranolazine (Ranexa) 500 mg PO BID [facility] Last Admin: 08/16/18 23:16 Dose: 500 mg Sodium Chloride () 5 - 15 ml IV UD PRN PRN Reason: SALINE FLUSH Ticagrelor (Brilinta) 90 mg PO BID [facility] Last Admin: 08/17/18 05:50 Dose: 90 mg Tramadol HCl (Ultram) 50 mg PO Q6H PRN PRN PRN Reason: PAIN Last Admin: 08/16/18 23:15 Dose: 50 mg Medical Necessity - Tobacco Use Smoking Status: Never smoker Tobacco Use: Non-smoker Assessment/Plan All Active Problems (Last Reviewed 08/16/18 @ 20:11 by Marty Castillo DO) Chest pain (Acute) Elevated troponin (Acute) Chest pain (Acute) Cognitive changes (Resolved) NSTEMI (non-ST elevated myocardial infarction) (Resolved) Unstable angina (Resolved) 1. Chest pain to rule out ACS * chest pain has resolved. * troponins x 3 were 0.181->0.197->1.184 * has CAD with stents in place and left heart cath in February showed severe diffuse disease involving th LAD, left circumflexa RCA and PDA. * on aspirin, statin and Sl nitroglycerin prn as well as Brilinta * for stress test today * 2. CAD s/p stents: On aspirin, statin, carvedilol and Brilinta. 3. Type 2 diabetes mellitus: -80 units daily. Insulin sliding scale. Accu- Cheks AC at bedtime. 4. Thrombocytopenia: Improved. Will monitor. 5. Hypertension: On amlodipine, carvedilol as well as losartan. 6. Hypothyroidism: On Synthroid 7. Schizophrenia: Not on any medication for schizophrenia. To follow-up with PCP and psychiatrist upon discharge. DVT prophylaxis: SCDs. CODE STATUS: Full code Code Visit OBSV E&M: 11580 Subsequent observation care L3
[2018-08-17] MEDS: Nitroglycerin Oint 1 INCH PACKET TRANSDERM. ×2 (12:34→17:51)
[2018-08-17] MEDS: traMADol 50 MG Tablet PO ×2 (12:44→18:44)
[2018-08-17 12:51] LABS: Bedside Glucose 149 mg/dL (70-110)
[2018-08-17 14:04] LABS: BNP,B-Type NATRIURETIC PEPTIDE 140.4 pg/mL (0-100)
--- NOTE | 2018-08-17 14:12 | STRESSREP_ITS ---
Stress Test Report Date: 08/17/18 Procedure: Pharmacologic stress nuclear imaging study Indications: Chest pain; CAD; PCI Consent: Per the patient Procedure: The patient underwent pharmacologic (regadenoson) evaluation with a peak heart rate of 75 beats per minute (53% predicted maximal heart rate) and a peak blood pressure of 140/60 mmHg. The baseline ECG demonstrated sinus bradycardia with nonspecific ST and T-wave abnormality. The peak pharmacologic ECG demonstrated continue nonspecific ST and T-wave abnormality. There were no cardiac dysrhythmias pretest, during pharmacologic infusion, or recovery. The patient had no complaint of chest discomfort during pharmacologic infusion or recovery. The examination was discontinued secondary to completion of protocol. Impression: 1. Pharmacologic (regadenoson) evaluation 2. Peak pharmacologic ECG with continued nonspecific ST-T wave abnormality 3. Nuclear images pending Myocardial perfusion imaging study: Technique: The patient was injected with 4.0 mci of technetium-99m Cardiolite and subsequently rest SPECT Cardiolite nuclear imaging was obtained in the horizontal long, vertical long, and short axis views. The patient underwent pharmacologic (regadenoson) evaluation with a peak heart rate of 75 beats per minute (33% predicted maximal heart rate) with peak blood pressure of 140/60 mmHg. The patient was injected with 36.0 mci of technetium-99m Cardiolite and subsequently stress SPECT Cardiolite nuclear imaging was obtained in the horizontal, vertical loading, and short axis views. Gated Cardiolite study at peak stress was obtained. Interpretation: Rest and stress SPECT Cardiolite nuclear imaging status post realignment, normalization, and attenuation correction, demonstrates at rest a small area diminished tracer uptake near the distal plantar lateral segments. Status post stressors notation diminished myocardial perfusion sinus tracer uptake and portions of the mid to distal anterior lateral, distal inferior lateral, anterior apical, lateral apical, and inferior apical segments. There is diminished LV systolic thickening on brightening. The gated Cardiolite study demonstrates myocardial thickening and wall motion. A reported LVEF is 58%. Impression: 1. Rest and stress SPECT Cardiolite nuclear imaging demonstrates myocardial perfusion changes potentially compatible with an small area of previous myocardial injury site infarction portions of the distal anterolateral segments and with post stress myocardial perfusion changes appearing compatible with asso ciated stress induced myocardial ischemia and portions of the mid to distal anterior lateral, distal infra lateral, anterior apical, lateral apical, and inferoapical segments. 2. The gated LVEF was reported at 58%. This note was generated using a voice recognition system and there may be incorrect words, spelling or punctuation that were not noted when reviewing the office note prior to saving.
[2018-08-17] MEDS: Multivitamins,Therapeutic Tablet 1 TABLET PO (15:22)
[2018-08-17] MEDS: Furosemide 40 MG Tablet PO ×2 (15:22→17:51)
[2018-08-17] MEDS: Ranolazine 500 MG Tablet PO ×2 (15:23→22:30)
[2018-08-17] MEDS: Carvedilol 6.25 MG Tablet PO ×2 (15:23→22:30)
[2018-08-17] MEDS: amLODIPine 2.5 MG Tablet PO (15:24)
[2018-08-17] MEDS: Isosorbide Mononitrate 60 MG Tablet PO (15:24)
[2018-08-17 16:46] LABS: Bedside Glucose 126 mg/dL (70-110)
[2018-08-17] MEDS: Insulin Lispro 100 UNIT/ML INSULN.PEN 8 UNIT SC (17:56)
[2018-08-17] MEDS: Pravastatin 80 MG Tablet PO (22:30)
[2018-08-18] VITALS (15 sets, daily range): BP systolic 103–129; BP diastolic 40–55; PULSE 50–66; RESP 12–16; TEMP 36.3–36.8; O2SAT 98–100
[2018-08-18] LABS: Bedside Glucose 68 mg/dL (70-110)
[2018-08-18 00:20] LABS: Bedside Glucose 82 mg/dL (70-110)
[2018-08-18] MEDS: Nitroglycerin Oint 1 INCH PACKET TRANSDERM. ×4 (01:04→17:44)
[2018-08-18] MEDS: Levothyroxine 100 MCG Tablet PO (06:00)
[2018-08-18 06:45] LABS: Bedside Glucose 116 mg/dL (70-110)
[2018-08-18 06:56] LABS: Bedside Glucose 84 mg/dL (70-110)
[2018-08-18 07:33] LABS: Absolute Lymphocyte Count 1.11 X10^3/ul (0.83-4.51); Absolute Neutrophil Count 1.5 X10^3/uL (2.0-7.7); Basophil# 0.01 X10^3/uL; Basophil% 0.3 % (0-1); Eosinophil# 0.15 X10^3/uL; Hematocrit 31.3 % (37-47); Hemoglobin 10.2 g/dl (12.0-15.0); Lymphocyte # 1.11 X10^3/ul (4.0); Mean Corp Hgb Conc 32.6 g/gl (32-36); Mean Corpuscular Hgb 30.2 pg (27.0-32.0); Mean Corpuscular Volume 92.6 fL (81-99); Mean Platelet Vol. 9.3 fl (6.2-12.0); Monocyte# 0.25 X10^3/uL; Monocyte% 8.3 % (0-10); Neutrophil # 1.48 X10^3/uL (2.7-7.7); Neutrophil % 49.4 % (47-70); Platelet Count 112 K/mm3 (150-450); RBC Distribution Width CV 14.3 % (11.6-14.6); RBC Distribution Width SD 48.4 fl (35.1-43.9); Red Blood Count 3.38 M/mm3 (4.2-5.4)
[2018-08-18 07:35] LABS: POSITIVE COUNT NO; POSITIVE DIFFERENTIAL NO; POSITIVE MORPHOLOGY NO
[2018-08-18 08:10] LABS: Anion Gap 8 (5-15); BUN 16 mg/dL (7-18); BUN/Creat Ratio 17.6 RATIO (10-20); Calcium,Total 8.3 mg/dL (8.5-10.1); Chloride 102 mmol/L (98-107); Creatinine, Serum 0.91 mg/dL (0.55-1.02); EST Glomerular Filtration Rate 63 mL/min (>60); Est Glom Filt Rate - Afr Amer 77 mL/min (>60); Estimated Creatinine Clearance 48.75 ml/min; Glucose 83 mg/dL (74-106); Potassium 3.4 mmol/L (3.5-5.1); Sodium Level 140 mmol/L (136-145)
[2018-08-18] MEDS: Insulin Lispro 100 UNIT/ML INSULN.PEN 8 UNIT SC (08:39)
[2018-08-18] MEDS: Aspirin 81 MG TAB.CHEW PO (08:50)
[2018-08-18] MEDS: Multivitamins,Therapeutic Tablet 1 TABLET PO (08:50)
[2018-08-18] MEDS: amLODIPine 2.5 MG Tablet PO (08:51)
[2018-08-18] MEDS: Ranolazine 500 MG Tablet PO (08:51)
[2018-08-18] MEDS: TICAGRELOR 90 MG TABLET PO ×2 (08:51→21:58)
[2018-08-18] MEDS: Carvedilol 6.25 MG Tablet PO ×2 (08:51→21:58)
[2018-08-18] MEDS: Furosemide 40 MG Tablet PO ×2 (08:51→17:44)
[2018-08-18] MEDS: Losartan Potassium 50 MG Tablet PO (08:51)
[2018-08-18] MEDS: Isosorbide Mononitrate 60 MG Tablet PO ×2 (08:51→21:59)
[2018-08-18] MEDS: traMADol 50 MG Tablet PO (09:08)
--- NOTE | 2018-08-18 11:47 | NURSING ---
Addendum entered by Genet Bonilla 08/18/18 11:53: pt is alert, and oriented x4, sitting up in bed, asymptomatic except for stating that I felt funny, kind of like I was going to faint Original Note: Pt called nurse into the room stating that she feels funny and needs her blood sugar checked. blood glucose result was 38, pt was given 8 ounces of orange juice and some ronna crackers with peanut butter. test repeated and was 42
[2018-08-18 12:05] LABS: Bedside Glucose 72 mg/dL (70-110)
--- NOTE | 2018-08-18 12:15 | PCM.PN.HOSP ---
Patient Problems: Active and Suspected Problems (Last Reviewed 08/16/18 @ 20:11 by Marty Castillo DO) Chest pain (Acute) Elevated troponin (Acute) Subjective: Patient seen and examined. She had no active complaints. Chest pain did not recur overnight. She denies any palpitations or dizziness, lightheadedness, shortness of breath, abdominal pain, diarrhea or vomiting. Review of systems otherwise negative. Patient was informed about her abnormal stress test and need for further workup. Patient has a lot of concerns about having another cath again as he had one recently. She is unable to decide whether she wants to stay in [place] for the cardiac cath or go to [place] where she had her previous catheterization. She wishes to speak to cardiology for further information before she makes up her mind. Vitals/I&O's: Vital Signs Temp Pulse Resp BP Pulse Ox 97.4 F L 58 L 16 113/43 L 98 08/18/18 08:45 08/18/18 12:07 08/18/18 08:45 08/18/18 12:07 08/18/18 08:55 Oxygen Delivery Method Room Air Weight: 198 lb 6.656 oz Body Mass Index (BMI) 31.5 Finger Stick Blood Glucose 270 Intake and Output for Last 24 Hours 08/16/18 08/17/18 08/18/18 23:59 23:59 23:59 Intake Total 1190 / 1190 800 / 800 Balance 1190 / 1190 800 / 800 General: Alert, Oriented x3, Cooperative, No apparent distress HEENT: Atraumatic, PERRLA, EOMI, Normocephalic Oral: Moist Mucosa Neck: Supple, No JVD, Negative Carotid Bruits, Negative Hepatojugular Reflux, No Nodes, No Nuchal Rigidity Lungs: - - has coarse crackles in mid and lower lung clemente bilaterally. No wheezing or rhonchi Cardiovascular: Regular rate, Regular Rhythm, Normal S1, Normal S2, No murmurs Abdomen: Bowel Sounds Present, Soft, Non Tender, Non-Distended, No Hepato-splenomegaly Extremities: No clubbing, No cyanosis, No edema, Capillary Refill Less than 3 Seconds Skin: No rashes, No breakdown Musculoskeletal: No Tenderness to Palpation of Joints or Extremities Lymphatic: No Cervical, Supraclavicular, or Inguinal Adenopathy Neurological: Cranial nerves II-XII grossly intact, Neuro grossly intact, Motor Exam 5/5 strength throughout Psych/Mental Status: Flat Affect, Alert and oriented to time, place, person, mood and affect Laboratory Results 08/17/18 06:11: B-Natriuretic Peptide 140.4 H 08/17/18 12:30: POC Glucose 149 H 08/17/18 16:15: POC Glucose 126 H 08/17/18 22:34: POC Glucose 82 08/17/18 23:52: POC Glucose 68 L 08/18/18 00:30: POC Glucose 116 H 08/18/18 06:46: POC Glucose 84 08/18/18 06:55: WBC 3.0 L, RBC 3.38 L, Hgb 10.2 L, Hct 31.3 L, MCV 92.6, MCH 30.2, MCHC 32.6, RDW 14.3, RDW Differential 48.4 H, Plt Count 112 L, MPV 9.3, Immature Gran % (Auto) 0.000, Neut % (Auto) 49.4, Lymph % (Auto) 37.0, [place] % (Auto) 8.3, Eos % (Auto) 5.0, Baso % (Auto) 0.3, Absolute Neuts (auto) 1.5 L, Absolute Lymphs (auto) 1.11, Total Counted Not Reportable 08/18/18 06:55: Sodium 140, Potassium 3.4 L, Chloride 102, Carbon Dioxide 30.0, Anion Gap 8, BUN 16, Creatinine 0.91, Estim Creat Clear Calc 48.75, Est GFR (MDRD) Af Amer 77, Est GFR (MDRD) Non-Af 63, BUN/Creatinine Ratio 17.6, Glucose 83, Calcium 8.3 L 08/18/18 12:03: POC Glucose 72 Current Medications Albuterol Sulfate (Ventolin Aerosols) 2.5 mg INHALATION Q4H PRN PRN PRN Reason: SHORTNESS OF BREATH Amlodipine Besylate (Norvasc) 2.5 mg PO DAILY [facility] Last Admin: 08/18/18 08:51 Dose: 2.5 mg Aspirin (Aspirin, Baby) 81 mg PO DAILY@0800 [facility] Last Admin: 08/18/18 08:50 Dose: 81 mg Carvedilol (Coreg) 6.25 mg PO BID [facility] Last Admin: 08/18/18 08:51 Dose: 6.25 mg Cholecalciferol (Vitamin D) 5,000 unit PO DAILY [facility] Last Admin: 08/18/18 08:50 Dose: 5,000 unit Dextrose (D50w Syringe) 0 gm IV X1 PRN; Protocol PRN Reason: Hypoglycemia Furosemide (Lasix) 40 mg PO BIDLX [facility] Last Admin: 08/18/18 08:51 Dose: 40 mg Glucagon () 1 mg IM .X1 PRN PRN Reason: Hypoglycemia Insulin Glargine (Lantus (Bkc)) 30 units SC DAILY [facility] Last Admin: 08/18/18 08:41 Dose: 30 u Insulin Human Lispro (Humalog Kwikpen ([facility])) 0 unit SQ TIDAC [facility]; Protocol Last Admin: 08/18/18 12:04 Dose: Not Given Insulin Human Lispro (Humalog Kwikpen ([facility])) 8 unit SC TIDAC [facility] Last Admin: 08/18/18 12:04 Dose: Not Given Isosorbide Mononitrate (Imdur) 60 mg PO BID [facility] Last Admin: 08/18/18 08:51 Dose: 60 mg Levothyroxine Sodium (Synthroid) 100 mcg PO DAILY@0600 [facility] Last Admin: 08/18/18 06:00 Dose: 100 mcg Losartan Potassium (Cozaar) 50 mg PO DAILY [facility] Last Admin: 08/18/18 08:51 Dose: 50 mg Magnesium Hydroxide (Milk Of Magnesia) 30 ml PO DAILY PRN PRN Reason: Constipation Multivitamins (Multivitamin) 1 tablet PO DAILYCM [facility] Last Admin: 08/18/18 08:50 Dose: 1 tablet Nitroglycerin (Nitrostat) 0.4 mg SUBLINGUAL Q5M PRN PRN Reason: CHEST PAIN Nitroglycerin (Nitrobid) 1 inch TRANSDERM. Q6 [facility] Last Admin: 08/18/18 12:07 Dose: 1 inch Pravastatin Sodium (Pravachol) 80 mg PO DAILY@2200 [facility] Last Admin: 08/17/18 22:30 Dose: 80 mg Ranolazine (Ranexa) 1,000 mg PO BID [facility] Sodium Chloride () 5 - 15 ml IV UD PRN PRN Reason: SALINE FLUSH Ticagrelor (Brilinta) 90 mg PO BID [facility] Last Admin: 08/18/18 08:51 Dose: 90 mg Tramadol HCl (Ultram) 50 mg PO Q6H PRN PRN PRN Reason: PAIN Last Admin: 08/18/18 09:08 Dose: 50 mg Medical Necessity - Tobacco Use Smoking Status: Never smoker Tobacco Use: Non-smoker Assessment/Plan All Active Problems (Last Reviewed 08/16/18 @ 20:11 by Marty Castillo DO) Chest pain (Acute) Elevated troponin (Acute) Chest pain (Acute) Cognitive changes (Resolved) NSTEMI (non-ST elevated myocardial infarction) (Resolved) Unstable angina (Resolved) 1. Chest pain to rule out ACS chest pain has resolved. troponins x 3 were 0.181->0.197->1.184 has CAD with stents in place and left heart cath in February showed severe diffuse disease involving the LAD, left circumflex, RCA and PDA. on aspirin, statin and Sl nitroglycerin prn as well as Brilinta stress test showed stress-induced ischemia in portions of the mid to distal anterior lateral, distal inferior lateral, anterior apical, lateral apical and inferoapical segments. EF was 58%. Cardiology on board. Patient to make up her mind about whether she will not stay in [place] for further intervention or to be transferred to [place] for cardiac cath. 2. CAD s/p stents: On aspirin, statin, carvedilol and Brilinta. 3. Type 2 diabetes mellitus: -80 units daily. Insulin sliding scale. Accu-Cheks AC at bedtime. 4. Thrombocytopenia: Improved. Will monitor. 5. Hypertension: On amlodipine, carvedilol as well as losartan. 6. Hypothyroidism: On Synthroid 7. Schizophrenia: Not on any medication for schizophrenia. To follow-up with PCP and psychiatrist upon discharge. 8. Pancytopenia: wbc is 3 with hemoglobin of 10.2 and platelets of 112. This is chronic. Will monitor. DVT prophylaxis: SCDs. CODE STATUS: Full code Code Visit OBSV E&M: 04275 Subsequent observation care L3
--- NOTE | 2018-08-18 12:19 | PN_ITS ---
Patient Problems: Active and Suspected Problems (Last Reviewed 08/16/18 @ 20:11 by Marty Castillo DO) Chest pain (Acute) Elevated troponin (Acute) Subjective: Patient seen and examined. She had no active complaints. Chest pain did not recur overnight. She denies any palpitations or dizziness, lightheadedness, shortness of breath, abdominal pain, diarrhea or vomiting. Review of systems otherwise negative. Patient was informed about her abnormal stress test and need for further workup. Patient has a lot of concerns about having another cath again as he had one recently. She is unable to decide whether she wants to stay in [place] for the cardiac cath or go to [place] where she had her previous catheterization. She wishes to speak to cardiology for further information before she makes up her mind. Vitals/I&O's: Vital Signs Temp Pulse Resp BP Pulse Ox 97.4 F L 58 L 16 113/43 L 98 08/18/18 08:45 08/18/18 12:07 08/18/18 08:45 08/18/18 12:07 08/18/18 08:55 Oxygen Delivery Method Room Air Weight: 198 lb 6.656 oz Body Mass Index (BMI) 31.5 Finger Stick Blood Glucose 270 Intake and Output for Last 24 Hours 08/16/18 08/17/18 08/18/18 23:59 23:59 23:59 Intake Total 1190 / 1190 800 / 800 Balance 1190 / 1190 800 / 800 General: Alert, Oriented x3, Cooperative, No apparent distress HEENT: Atraumatic, PERRLA, EOMI, Normocephalic Oral: Moist Mucosa Neck: Supple, No JVD, Negative Carotid Bruits, Negative Hepatojugular Reflux, No Nodes, No Nuchal Rigidity Lungs: - - has coarse crackles in mid and lower lung clemente bilaterally. No wheezing or rhonchi Cardiovascular: Regular rate, Regular Rhythm, Normal S1, Normal S2, No murmurs Abdomen: Bowel Sounds Present, Soft, Non Tender, Non-Distended, No Hepato- splenomegaly Extremities: No clubbing, No cyanosis, No edema, Capillary Refill Less than 3 Seconds Skin: No rashes, No breakdown Musculoskeletal: No Tenderness to Palpation of Joints or Extremities Lymphatic: No Cervical, Supraclavicular, or Inguinal Adenopathy Neurological: Cranial nerves II-XII grossly intact, Neuro grossly intact, Motor Exam 5/5 strength throughout Psych/Mental Status: Flat Affect, Alert and oriented to time, place, person, mood and affect Laboratory Results 08/17/18 06:11: B-Natriuretic Peptide 140.4 H 08/17/18 12:30: POC Glucose 149 H 08/17/18 16:15: POC Glucose 126 H 08/17/18 22:34: POC Glucose 82 08/17/18 23:52: POC Glucose 68 L 08/18/18 00:30: POC Glucose 116 H 08/18/18 06:46: POC Glucose 84 08/18/18 06:55: WBC 3.0 L, RBC 3.38 L, Hgb 10.2 L, Hct 31.3 L, MCV 92.6, MCH 30.2, MCHC 32.6, RDW 14.3, RDW Differential 48.4 H, Plt Count 112 L, MPV 9.3, Immature Gran % (Auto) 0.000, Neut % (Auto) 49.4, Lymph % (Auto) 37.0, [place] % (Auto) 8.3, Eos % (Auto) 5.0, Baso % (Auto) 0.3, Absolute Neuts (auto) 1.5 L, Absolute Lymphs (auto) 1.11, Total Counted Not Reportable 08/18/18 06:55: Sodium 140, Potassium 3.4 L, Chloride 102, Carbon Dioxide 30.0, Anion Gap 8, BUN 16, Creatinine 0.91, Estim Creat Clear Calc 48.75, Est GFR (MDRD) Af Amer 77, Est GFR (MDRD) Non-Af 63, BUN/Creatinine Ratio 17.6, Glucose 83, Calcium 8.3 L 08/18/18 12:03: POC Glucose 72 Current Medications Albuterol Sulfate (Ventolin Aerosols) 2.5 mg INHALATION Q4H PRN PRN PRN Reason: SHORTNESS OF BREATH Amlodipine Besylate (Norvasc) 2.5 mg PO DAILY [facility] Last Admin: 08/18/18 08:51 Dose: 2.5 mg Aspirin (Aspirin, Baby) 81 mg PO DAILY@0800 [facility] Last Admin: 08/18/18 08:50 Dose: 81 mg Carvedilol (Coreg) 6.25 mg PO BID [facility] Last Admin: 08/18/18 08:51 Dose: 6.25 mg Cholecalciferol (Vitamin D) 5,000 unit PO DAILY [facility] Last Admin: 08/18/18 08:50 Dose: 5,000 unit Dextrose (D50w Syringe) 0 gm IV X1 PRN; Protocol PRN Reason: Hypoglycemia Furosemide (Lasix) 40 mg PO BIDLX [facility] Last Admin: 08/18/18 08:51 Dose: 40 mg Glucagon () 1 mg IM .X1 PRN PRN Reason: Hypoglycemia Insulin Glargine (Lantus (Bkc)) 30 units SC DAILY [facility] Last Admin: 08/18/18 08:41 Dose: 30 u Insulin Human Lispro (Humalog Kwikpen ([facility])) 0 unit SQ TIDAC [facility]; Protocol Last Admin: 08/18/18 12:04 Dose: Not Given Insulin Human Lispro (Humalog Kwikpen ([facility])) 8 unit SC TIDAC [facility] Last Admin: 08/18/18 12:04 Dose: Not Given Isosorbide Mononitrate (Imdur) 60 mg PO BID [facility] Last Admin: 08/18/18 08:51 Dose: 60 mg Levothyroxine Sodium (Synthroid) 100 mcg PO DAILY@0600 [facility] Last Admin: 08/18/18 06:00 Dose: 100 mcg Losartan Potassium (Cozaar) 50 mg PO DAILY [facility] Last Admin: 08/18/18 08:51 Dose: 50 mg Magnesium Hydroxide (Milk Of Magnesia) 30 ml PO DAILY PRN PRN Reason: Constipation Multivitamins (Multivitamin) 1 tablet PO DAILYCM [facility] Last Admin: 08/18/18 08:50 Dose: 1 tablet Nitroglycerin (Nitrostat) 0.4 mg SUBLINGUAL Q5M PRN PRN Reason: CHEST PAIN Nitroglycerin (Nitrobid) 1 inch TRANSDERM. Q6 [facility] Last Admin: 08/18/18 12:07 Dose: 1 inch Pravastatin Sodium (Pravachol) 80 mg PO DAILY@2200 [facility] Last Admin: 08/17/18 22:30 Dose: 80 mg Ranolazine (Ranexa) 1,000 mg PO BID [facility] Sodium Chloride () 5 - 15 ml IV UD PRN PRN Reason: SALINE FLUSH Ticagrelor (Brilinta) 90 mg PO BID [facility] Last Admin: 08/18/18 08:51 Dose: 90 mg Tramadol HCl (Ultram) 50 mg PO Q6H PRN PRN PRN Reason: PAIN Last Admin: 08/18/18 09:08 Dose: 50 mg Medical Necessity - Tobacco Use Smoking Status: Never smoker Tobacco Use: Non-smoker Assessment/Plan All Active Problems (Last Reviewed 08/16/18 @ 20:11 by Marty Castillo DO) Chest pain (Acute) Elevated troponin (Acute) Chest pain (Acute) Cognitive changes (Resolved) NSTEMI (non-ST elevated myocardial infarction) (Resolved) Unstable angina (Resolved) 1. Chest pain to rule out ACS * chest pain has resolved. * troponins x 3 were 0.181->0.197->1.184 * has CAD with stents in place and left heart cath in February showed severe diffuse disease involving the LAD, left circumflex, RCA and PDA. * on aspirin, statin and Sl nitroglycerin prn as well as Brilinta * stress test showed stress-induced ischemia in portions of the mid to distal anterior lateral, distal inferior lateral, anterior apical, lateral apical and inferoapical segments. EF was 58%. * Cardiology on board. Patient to make up her mind about whether she will not stay in [place] for further intervention or to be transferred to [place] for cardiac cath. * 2. CAD s/p stents: On aspirin, statin, carvedilol and Brilinta. 3. Type 2 diabetes mellitus: -80 units daily. Insulin sliding scale. Accu- Cheks AC at bedtime. 4. Thrombocytopenia: Improved. Will monitor. 5. Hypertension: On amlodipine, carvedilol as well as losartan. 6. Hypothyroidism: On Synthroid 7. Schizophrenia: Not on any medication for schizophrenia. To follow-up with PCP and psychiatrist upon discharge. 8. Pancytopenia: * wbc is 3 with hemoglobin of 10.2 and platelets of 112. * This is chronic. * Will monitor. * DVT prophylaxis: SCDs. CODE STATUS: Full code Code Visit OBSV E&M: 93403 Subsequent observation care L3
--- NOTE | 2018-08-18 12:42 | CASEMGMT ---
RN CM [facility], [facility], [facility], [facility], [facility], [facility].
--- NOTE | 2018-08-18 13:13 | PCM.PN.CARD ---
Subjectve: The patient's denies any acute chest discomfort or difficulty breathing since yesterday evening. Objective: Vital Signs Temp Pulse Resp BP Pulse Ox 97.4 F L 58 L 16 113/43 L 98 08/18/18 08:45 08/18/18 12:07 08/18/18 08:45 08/18/18 12:07 08/18/18 08:55 Oxygen Delivery Method Room Air Weight: 198 lb 6.656 oz Body Mass Index (BMI) 31.5 Finger Stick Blood Glucose 270 Intake and Output for Last 24 Hours 08/16/18 08/17/18 08/18/18 23:59 23:59 23:59 Intake Total 1190 / 1190 800 / 800 Balance 1190 / 1190 800 / 800 General: Awake, Cooperative, No Acute Distress HEENT: Atraumatic Oral: Moist Mucosa Neck: No JVD Lungs: Clear to auscultation Cardiovascular: Regular Rhythm, Normal S1, Normal S2 Murmur Murmur: Grade 2/6, Soft, Mid Systolic, LLSB, LVOT, Sternal Notch Abdomen: Bowel Sounds Present, Soft, Non Tender Extremities: No edema Psych/Mental Status: - - The patient does admit to hearing voices . 08/17/18 06:11: B-Natriuretic Peptide 140.4 H 08/18/18 06:55: WBC 3.0 L, RBC 3.38 L, Hgb 10.2 L, Hct 31.3 L, MCV 92.6, MCH 30.2, MCHC 32.6, RDW 14.3, RDW Differential 48.4 H, Plt Count 112 L, MPV 9.3, Immature Gran % (Auto) 0.000, Neut % (Auto) 49.4, Lymph % (Auto) 37.0, [place] % (Auto) 8.3, Eos % (Auto) 5.0, Baso % (Auto) 0.3, Absolute Neuts (auto) 1.5 L, Total Counted Not Reportable 08/18/18 06:55: Sodium 140, Potassium 3.4 L, Chloride 102, Carbon Dioxide 30.0, Anion Gap 8, BUN 16, Creatinine 0.91, Est GFR (MDRD) Af Amer 77, Est GFR (MDRD) Non-Af 63, BUN/Creatinine Ratio 17.6, Glucose 83, Calcium 8.3 L Rhythm: Sinus rhythm Stress Test: 08/17/2018 Pharmacologic stress nuclear imaging study: Impression: 1. Rest and stress SPECT Cardiolite nuclear imaging demonstrates myocardial perfusion changes potentially compatible with an small area of previous myocardial injury site infarction portions of the distal anterolateral segments and with post stress myocardial perfusion changes appearing compatible with associated stress induced myocardial ischemia and portions of the mid to distal anterior lateral, distal infra lateral, anterior apical, lateral apical, and inferoapical segments. 2. The gated LVEF was reported at 58%. Medical Necessity - Tobacco Use Smoking Status: Never smoker Tobacco Use: Non-smoker Assessment/Plan 1. Chest pain The patient has recurrent chest pain. It appears to be somewhat atypical. Patient has been noted to have indeterminate troponin I levels. This is superimposed on a history of underlying CAD requiring tertiary care center evaluation and care/intervention. She has undergone evaluation with a pharmacologic stress nuclear imaging study. The results are as noted above. 2. Indeterminate troponin I level The patient has chronically elevated troponin I levels. This does make it challenging to further evaluate her symptoms, etc., without additional objective findings. She has undergone further noninvasive evaluation. Her pharmacologic stress nuclear imaging study is as noted above. 3. CAD status post PCI The patient has a history of previous LAD and PCI. Again she has had intervention performed at the [facility] main campus based upon the complexity of her underlying disease process. She is continuing medical management. Her Ranexa dose has been increased. She has been recommended to consider reevaluation in the cardiac catheterization laboratory. Lengthy discussions have been held with her with respect to the pros and cons and risks and benefits. At the present time she appears agreeable to doing so at [facility]. Thus she will be tentatively scheduled for a diagnostic cardiac catheterization performed by her primary plisse machine operator helper-Dr. Malik. 4. Aortic valve disease She does have a history of aortic valve sclerosis with no report of significant aortic valve stenosis. The same time she does have a reported both MR and TR. Her valvular heart disease can be reassessed is deemed appropriate. 5. Hyperlipidemia She will continue risk factor evaluation care is deemed appropriate. 6. Hypertension Her blood pressures will be followed. She will continue medical therapy. 7. Diabetes mellitus She will continue under the care of internal medicine. 8. Pancytopenia The patient has had waxing and waning concerns with respect to her WBC, H&H, and her platelet level. At the present time her platelet counts are greater than 100,000. Thus she will be tenably scheduled for her upcoming diagnostic cardiac catheterization. If her laboratory studies change then her clinical course and procedure will need to be reconsidered. 9. Schizophrenia The patient carries a diagnosis of schizophrenia. She does admit to hearing voices . She will continue evaluation care by internal medicine. Comment: The patient's case was discussed and reviewed with patient. This note was generated using a voice recognition system and there may be incorrect words, spelling or punctuation that were not noted when reviewing the office note prior to saving.
[2018-08-18 14:26] LABS: Bedside Glucose 42 mg/dL (70-110)
[2018-08-18 14:26] LABS: Bedside Glucose 38 mg/dL (70-110)
[2018-08-18 14:26] LABS: Bedside Glucose 156 mg/dL (70-110)
[2018-08-18 16:41] LABS: Bedside Glucose 189 mg/dL (70-110)
[2018-08-18] MEDS: Pravastatin 80 MG Tablet PO (21:59)
[2018-08-18] MEDS: Ranolazine 500 MG Tablet 1000 MG PO (22:00)
[2018-08-18 23:10] LABS: Bedside Glucose 153 mg/dL (70-110)
[2018-08-19] VITALS (21 sets, daily range): BP systolic 103–125; BP diastolic 42–59; PULSE 55–66; RESP 10–16; TEMP 36.6–37; O2SAT 98–100
[2018-08-19] MEDS: Nitroglycerin Oint 1 INCH PACKET TRANSDERM. ×2 (00:09→06:45)
--- NOTE | 2018-08-19 05:55 | EKG12_ITS ---
Test Reason : AM EKG Blood Pressure : / mmHG Vent. Rate : 061 BPM Atrial Rate : 061 BPM P-R Int : 198 ms QRS Dur : 094 ms QT Int : 496 ms P-R-T Axes : 064 -05 042 degrees QTc Int : 499 ms Normal sinus rhythm ST & T wave abnormality, consider lateral ischemia Prolonged QT Abnormal ECG When compared with ECG of 17-AUG-2018 05:05, MANUAL COMPARISON REQUIRED, DATA IS UNCONFIRMED Confirmed by SILVINA CHEW, NILSON ([id number]), loan expeditor THAD HOOKER ([id number]) on 08/20/2018 5:30:05 PM Referred By: DR KRUSE Confirmed By:NILSON COOL MD
[2018-08-19 06:27] LABS: International Normalized Ratio 1.1; Prothrombin Time (Protime)PT. 14.5 SECONDS (11.7-14.9)
[2018-08-19 06:28] LABS: Partial Thromboplast Time 30.9 Seconds (24.1-36.2)
[2018-08-19 06:29] LABS: Absolute Lymphocyte Count 1.15 X10^3/ul (0.83-4.51); Absolute Neutrophil Count 1.6 X10^3/uL (2.0-7.7); Basophil# 0.02 X10^3/uL; Basophil% 0.6 % (0-1); Eosinophil# 0.14 X10^3/uL; Eosinophils% 4.4 % (0-5); Hematocrit 31.2 % (37-47); Hemoglobin 10.2 g/dl (12.0-15.0); Lymphocyte # 1.15 X10^3/ul (4.0); Lymphocyte % 35.8 % (19-41); Mean Corp Hgb Conc 32.7 g/gl (32-36); Mean Corpuscular Hgb 30.8 pg (27.0-32.0); Mean Corpuscular Volume 94.3 fL (81-99); Mean Platelet Vol. 10.2 fl (6.2-12.0); Monocyte# 0.28 X10^3/uL; Monocyte% 8.7 % (0-10); Neutrophil # 1.61 X10^3/uL (2.7-7.7); Neutrophil % 50.2 % (47-70); Platelet Count 118 K/mm3 (150-450); RBC Distribution Width CV 13.9 % (11.6-14.6); RBC Distribution Width SD 45.9 fl (35.1-43.9); Red Blood Count 3.31 M/mm3 (4.2-5.4); White Blood Count 3.2 K/mm3 (4.4-11.0)
[2018-08-19 06:33] LABS: Anion Gap 7 (5-15); BUN 17 mg/dL (7-18); BUN/Creat Ratio 18.6 RATIO (10-20); Calcium,Total 8.5 mg/dL (8.5-10.1); Chloride 104 mmol/L (98-107); Creatinine, Serum 0.91 mg/dL (0.55-1.02); EST Glomerular Filtration Rate 63 mL/min (>60); Est Glom Filt Rate - Afr Amer 76 mL/min (>60); Estimated Creatinine Clearance 48.75 ml/min; Glucose 130 mg/dL (74-106); Potassium 3.8 mmol/L (3.5-5.1); Sodium Level 140 mmol/L (136-145)
[2018-08-19] MEDS: Aspirin 81 MG TAB.CHEW PO (06:46)
[2018-08-19] MEDS: TICAGRELOR 90 MG TABLET PO (06:46)
[2018-08-19] MEDS: Levothyroxine 100 MCG Tablet PO (06:46)
[2018-08-19 07:11] LABS: POSITIVE COUNT NO; POSITIVE DIFFERENTIAL NO; POSITIVE MORPHOLOGY NO
--- NOTE | 2018-08-19 09:56 | CL.D_ITS ---
Patient Name: DANI JOHNSON Study Date: 08/19/2018 Performing: Yvan Malik MD Ht: 26.37 inches 67 cm : 1940 Wt: 198.99 lbs 90.26 kg Age: 78 Gender: female BSA: 1.03 PROCEDURE(S) PERFORMED [id number]/LV CLINICAL PROFILE AND INDICATIONS Indications: Worsening Angina, Stable Known CAD Heart Failure: None Stress/Imaging Stress Test w/SPECT MPI: Yes Result: Positive Intermediate RiskStress Test with SP ECT MPI: Positive Intermediate Risk Angina Classification Anginal Classification w/in 2 Weeks: CCS III CAD Presentations: Unstable angina. Comorbidities/Risk Factors: Hypertension Dyslipidemia Prior PCI CONCLUSIONS Single vessel CAD of the proximal LCX ISR of 85% Non obstructive coronary arteries Normal LV size, wall motion,and systolic function RECOMMENDATIONS Referred for immediate PCI Manual sheath removal, tx to [facility] or [facility] for high risk PCI of LCX ISR at bifurcation of LM/LAD. DESCRIPTION OF PROCEDURE The patient arrived to the procedure lab. The risks and benefits of the procedure as well as a full d escription of our services here and current unavailability of surgical backup were fully explained to the patient and/or their significant other prior to the catheterization. The Timeout was completed, verifying the correct patient and procedure. The patient's procedural site was prepped and draped in the usual fashion. Local anesthetic was given subcutaneously to right groin region with Lidocaine 2%. Using a modified Seldinger technique, arterial access was obtained via the right femoral artery, a 4 Fr sheath was inserted Left Coronary Artery selective angiography was performed in multiple views us ing a 4 Fr. JL5 catheter. Right Coronary Artery selective angiography was then performed in multiple views using a 4 Fr. 3DRC catheter. Left Ventriculography was performed in CEE projection using a 4 Fr . Pigtail catheter. LV to AO pullback pressures were then recorded.The arterial sheath was pulled and manual compression applied until hemostasis is achieved. CORONARY ANGIOGRAPHY DOMINANCE: Right Dominant LEFT HEART ASSESSMENT Left Ventricular Ejection Fraction: by LV Gram 65 % Normal LV wall motion Normal Left Ventricular systolic function Normal Left Ventricular End Diastolic Pressure LVEDP: 9 mmHg LEFT MAIN: Instent restenosis 10 % LEFT ANTERIOR DECENDING ARTERY: PROX LAD: Instent restenosis 20 % MID LAD: Instent restenosis 30 % DISTAL LAD: 75 % Stenosis DIAGONAL 1: Proximal - 75% Stenosis, small vessel CIRCUMFLEX ARTERY: OSTIAL CIRC: Instent restenosis 85 % RIGHT CORONARY ARTERY: DISTAL RCA: Moderate calcification RT PLV: Instent restenosis 10 % COMPLICATIONS No Complications PROCEDURE MEDICATIONS Oxygen: 2 L/min via nasal cannula SUMMARY OF HEMODYNAMIC DATA Time AIR REST ECG 08:38:06 AO 116/51 (78) SA 08:42:52 LV 149/-12, 11 08:47:47 LV 147/-13, 9 08:47:53 LV 143/-12, 13 08:48:44 LVp 147/-11, 10 08:48:58 AOp 141/45 (80) 08:49:03 Signed By Yvan Malik MD On 08/19/2018 09:02:22 Yvan Malik MD
[2018-08-19] MEDS: Multivitamins,Therapeutic Tablet 1 TABLET PO (10:17)
[2018-08-19] MEDS: Isosorbide Mononitrate 60 MG Tablet PO (10:18)
[2018-08-19 11:20] LABS: Bedside Glucose 120 mg/dL (70-110)
[2018-08-19 11:41] LABS: Bedside Glucose 125 mg/dL (70-110)
[2018-08-19] MEDS: Furosemide 40 MG Tablet PO ×2 (12:50→17:59)
[2018-08-19] MEDS: Carvedilol 6.25 MG Tablet PO (12:50)
[2018-08-19] MEDS: Ranolazine 500 MG Tablet 1000 MG PO (12:50)
[2018-08-19 14:45] LABS: Pathologist Review Reviewed
[2018-08-19 16:40] LABS: Bedside Glucose 163 mg/dL (70-110)
--- NOTE | 2018-08-19 16:50 | NURSING ---
report called to [facility] [id number] [id number]
--- NOTE | 2018-08-20 08:47 | PCM.DC.SUM ---
Discharge Date and Diagnosis Date of Admission: 08/16/18 Date of Discharge: 08/19/18 - Primary Discharge Diagnosis #1 angina #2 coronary artery disease-occlusive #3 intermediate troponin-etiology unknown #4 hypertension #5 type 2 diabetes #6 aortic valve disease #7 schizophrenia #8 pancytopenia-etiology unknown - Secondary Discharge Diagnosis Chronic Problems (Last Reviewed 08/16/18 @ 20:11 by Marty Castillo DO) Thrombocytopenia (Chronic) CAD (coronary artery disease) (Chronic) History of spinal fusion (Chronic) anterior Non-rheumatic aortic stenosis (Chronic) History of coronary artery stent placement (Chronic) PTCA-ostail/prox LCx @ [facility] 11/09/2017 PTCA-Cutting Balloon Atherectomy w/ placement of 2.5 x 20 mm Synergy Stent, Distal LM-into the Ostium of LAD Stented w/ 4.0 x 16 mm Synergy Stent 06/2017PTCA-OM 04/2017 PCI-LAD with a 2.75x38 Promus Premier drug eluting stent. 12/15/13 RAYMON of Right Posterior Lateral (Mid) wIth 3.0 x 2.8 Cypher, followed upstream with 3.0 x 8 Cypher, RAYMON of Right PDA (Ostial) with 25 x 28 Cypher 09/17/2007 Chronic systolic (congestive) heart failure (Chronic) Schizophrenia (Chronic) S/P PTCA (percutaneous transluminal coronary angioplasty) (Chronic ~11/09/17) PCI PTCA and laser atherectomy of proximal Circumflex 02/03/2018 PTCA-ostial/prox LCx @ [facility] 11/09/2017 PTCA-Cutting Balloon Atherectomy w/ placement of 2.5 x 20 mm Synergy Stent, Distal LM-into the Ostium of LAD Stented w/ 4.0 x 16 mm Synergy Stent 06/2017PTCA-OM 04/2017 PCI-LAD with a 2.75x38 Promus Premier drug eluting stent. 12/15/13 RAYMON of Right Posterior Lateral (Mid) wIth 3.0 x 2.8 Cypher, followed upstream with 3.0 x 8 Cypher, RAYMON of Right PDA (Ostial) with 25 x 28 Cypher 09/17/2007 History of coronary artery stent placement (Chronic) Atherosclerotic heart disease [place] coronary artery w/angina pectoris (Chronic) PCI PTCA and laser atherectomy of proximal Circumflex 02/03/2018 PTCA-ostail/prox LCx @ [facility] 11/09/2017 PTCA-Cutting Balloon Atherectomy w/ placement of 2.5 x 20 mm Synergy Stent, Distal LM-into the Ostium of LAD Stented w/ 4.0 x 16 mm Synergy Stent 06/2017PTCA-OM 04/2017 PCI-LAD with a 2.75x38 Promus Premier drug eluting stent. 12/15/13 RAYMON of Right Posterior Lateral (Mid) wIth 3.0 x 2.8 Cypher, followed upstream with 3.0 x 8 Cypher, RAYMON of Right PDA (Ostial) with 25 x 28 Cypher 09/17/2007 Pancytopenia (Chronic) Hypertension (Chronic) Hypothyroidism (Chronic) Hyperlipidemia (Chronic) Diabetes mellitus, type II (Chronic) Venous insufficiency (Chronic) CHF (congestive heart failure) (Chronic) NSTEMI (non-ST elevated myocardial infarction) (Chronic ~09/16/17) Intermittent claudication (Chronic) Tricuspid valve insufficiency (Chronic) Mitral valve insufficiency (Chronic) Obesity (BMI 30.0-34.9) (Chronic) Hospital Course and Treatment Operations: None Procedures: Cardiac catheterization, Nuclear stress test Summary of Care Provided: The patient is a 78 year old F who was seen in the emergency room at [facility] with chief complaint of chest pain which have been intermittent over 2 weeks. Patient has a history of coronary arterie disease with stent placement in the past. Workup in the emergency room included an EKG which showed a sinus rhythm and nonspecific ST-T wave changes with flipped T waves in 1 and aVL. CBC showed a pancytopenia, troponin was 0.18, CTA of the chest was obtained due to an elevated d-dimer and this did not show any evidence of thrombosis. Patient was placed into observation status on PCU and her cardiac enzymes were cycled, they remained in the intermediate range, she was seen in consultation by cardiology who performed a nuclear stress test on the patient which showed reversible ischemia. Patient then underwent a cardiac catheterization on 08/19/18, it showed single-vessel coronary artery disease with occlusion of the circumflex artery at 85%. Interventional cardiology recommended that the patient be transferred to an acute care facility for further treatment and possible stent placement. On 08/19/18, patient was seen and examined: On examination she appeared in good health and spirits. Vital signs as documented. Skin warm and dry and without overt rashes. Neck without JVD. Lungs clear. Heart exam notable for regular rhythm, normal sounds and absence of murmurs, rubs or gallops. Abdomen unremarkable and without evidence of organomegaly, masses, or abdominal aortic enlargement. Extremities nonedematous. Neuro: Cranial nerves II through XII are grossly intact, no focal motor deficits were noted, sensation to light touch and pinprick is intact. Psych: Patient is alert and oriented x3, she does not appear anxious or depressed On 08/19/18, patient was seen and examined and felt to be in stable condition for transfer to [facility] for further treatment. - Physical Exam Vital Signs Temp Pulse Resp BP Pulse Ox 97.9 F 66 16 118/51 L 99 08/19/18 20:08 08/19/18 20:08 08/19/18 20:08 08/19/18 20:08 08/19/18 20:08 Oxygen Delivery Method Room Air Weight: 90 kg Body Mass Index (BMI) 31.5 Finger Stick Blood Glucose 270 Intake and Output for Last 24 Hours 08/18/18 08/19/18 08/20/18 23:59 23:59 23:59 Intake Total 1620 / 1620 890 / 890 Balance 1620 / 1620 890 / 890 Laboratory Tests Past 24 Hrs 08/16/18 16:30 Diff Path Review Reviewed POC Glucose 08/19/18 08/19/18 08/19/18 16:33 11:35 06:55 POC Glucose 163 H 125 H 120 H Home Medications: Medications to take at Discharge Aspirin [Aspirin, Baby] 81 mg PO DAILY@0800 06/30/17 Nitroglycerin [Nitrostat] 0.4 mg SL PRN PRN 06/30/17 Pravastatin [Pravachol] 80 mg PO DAILY 06/30/17 furosemide 40 mg tablet 40 mg PO BID tab 11/19/17 Multivitamins,Therapeutic [Multivitamin] 1 tab PO DAILY 02/01/18 Albuterol Inhaler [Ventolin Hfa] 2 puff INHALATION PRN PRN 02/02/18 Ticagrelor [Brilinta] 90 mg PO BID 02/24/18 isosorbide mononitrate ER 60 mg tablet,extended release 24 hr 60 mg PO BID tab 03/01/18 ranolazine ER 1,000 mg tablet,extended release,12 hr 500 mg PO BID tab 03/01/18 carvedilol 12.5 mg tablet 6.25 mg PO BID 04/05/18 losartan 50 mg tablet 50 mg PO DAILY #90 tab 04/05/18 amlodipine 5 mg tablet 2.5 mg PO QDAY tab 04/30/18 tramadol 50 mg tablet 50 mg PO Q6H PRN 04/30/18 Cholecalciferol (Vitamin D3) [Vitamin D3] 5,000 unit PO DAILY 06/21/18 Levothyroxine Sodium [Synthroid] 100 mcg PO DAILY 06/21/18 Insulin Glargine,Hum.rec.anlog [Toujeo Max Solostar] 30 unit SC DAILY 08/16/18 Insulin Regular, Human [Humulin R] 8 units SQ TID 08/16/18 Primary Care Physician: Diana Cohen MD [Primary Care Provider] - Disposition: Acute care Hospital Minutes spent on discharge:: 30 Patient Condition:: Stable Medical Necessity - Tobacco Use Smoking Status: Never smoker Tobacco Use: Non-smoker Meaningful Use Info Meaningful Use Diagnoses (Choose all that apply): None applicable Code Visit OBSV E&M: 17886 Observation care discharge
--- NOTE | 2018-08-20 08:53 | DS.PCM_ITS ---
Discharge Date and Diagnosis Date of Admission: 08/16/18 Date of Discharge: 08/19/18 - Primary Discharge Diagnosis #1 angina #2 coronary artery disease-occlusive #3 intermediate troponin-etiology unknown #4 hypertension #5 type 2 diabetes #6 aortic valve disease #7 schizophrenia #8 pancytopenia-etiology unknown - Secondary Discharge Diagnosis Chronic Problems (Last Reviewed 08/16/18 @ 20:11 by Marty Castillo DO) Thrombocytopenia (Chronic) CAD (coronary artery disease) (Chronic) History of spinal fusion (Chronic) anterior Non-rheumatic aortic stenosis (Chronic) History of coronary artery stent placement (Chronic) PTCA-ostail/prox LCx @ [facility] 11/09/2017 PTCA-Cutting Balloon Atherectomy w/ placement of 2.5 x 20 mm Synergy Stent, Distal LM-into the Ostium of LAD Stented w/ 4.0 x 16 mm Synergy Stent 06/2017PTCA-OM 04/2017 PCI-LAD with a 2.75x38 Promus Premier drug eluting stent. 12/15/13 RAYMON of Right Posterior Lateral (Mid) wIth 3.0 x 2.8 Cypher, followed upstream with 3.0 x 8 Cypher, RAYMON of Right PDA (Ostial) with 25 x 28 Cypher 09/17/2007 Chronic systolic (congestive) heart failure (Chronic) Schizophrenia (Chronic) S/P PTCA (percutaneous transluminal coronary angioplasty) (Chronic ~11/09/17) PCI PTCA and laser atherectomy of proximal Circumflex 02/03/2018 PTCA-ostial/prox LCx @ [facility] 11/09/2017 PTCA-Cutting Balloon Atherectomy w/ placement of 2.5 x 20 mm Synergy Stent, Distal LM-into the Ostium of LAD Stented w/ 4.0 x 16 mm Synergy Stent 06/2017PTCA-OM 04/2017 PCI-LAD with a 2.75x38 Promus Premier drug eluting stent. 12/15/13 RAYMON of Right Posterior Lateral (Mid) wIth 3.0 x 2.8 Cypher, followed upstream with 3.0 x 8 Cypher, RAYMON of Right PDA (Ostial) with 25 x 28 Cypher 09/17/2007 History of coronary artery stent placement (Chronic) Atherosclerotic heart disease [place] coronary artery w/angina pectoris (Chronic) PCI PTCA and laser atherectomy of proximal Circumflex 02/03/2018 PTCA-ostail/prox LCx @ [facility] 11/09/2017 PTCA-Cutting Balloon Atherectomy w/ placement of 2.5 x 20 mm Synergy Stent, Distal LM-into the Ostium of LAD Stented w/ 4.0 x 16 mm Synergy Stent 06/2017PTCA-OM 04/2017 PCI-LAD with a 2.75x38 Promus Premier drug eluting stent. 12/15/13 RAYMON of Right Posterior Lateral (Mid) wIth 3.0 x 2.8 Cypher, followed upstream with 3.0 x 8 Cypher, RAYMON of Right PDA (Ostial) with 25 x 28 Cypher 09/17/2007 Pancytopenia (Chronic) Hypertension (Chronic) Hypothyroidism (Chronic) Hyperlipidemia (Chronic) Diabetes mellitus, type II (Chronic) Venous insufficiency (Chronic) CHF (congestive heart failure) (Chronic) NSTEMI (non-ST elevated myocardial infarction) (Chronic ~09/16/17) Intermittent claudication (Chronic) Tricuspid valve insufficiency (Chronic) Mitral valve insufficiency (Chronic) Obesity (BMI 30.0-34.9) (Chronic) Hospital Course and Treatment Operations: None Procedures: Cardiac catheterization, Nuclear stress test Summary of Care Provided: The patient is a 78 year old F who was seen in the emergency room at [facility] with chief complaint of chest pain which have been intermittent over 2 weeks. Patient has a history of coronary arterie disease w ith stent placement in the past. Workup in the emergency room included an EKG which showed a sinus rhythm and nonspecific ST-T wave changes with flipped T waves in 1 and aVL. CBC showed a pancytopenia, troponin was 0.18, CTA of the chest was obtained due to an elevated d-dimer and this did not show any evidence of thrombosis. Patient was placed into observation status on PCU and her cardiac enzymes were cycled, they remained in the intermediate range, she was seen in consultation by cardiology who performed a nuclear stress test on the patient which showed reversible ischemia. Patient then underwent a cardiac catheterization on 08/19/18, it showed single-vessel coronary artery disease with occlusion of the circumflex artery at 85%. Interventional cardiology recommended that the patient be transferred to an acute care facility for further treatment and possible stent placement. On 08/19/18, patient was seen and examined: On examination she appeared in good health and spirits. Vital signs as documented. Skin warm and dry and without overt rashes. Neck without JVD. Lungs clear. Heart exam notable for regular rhythm, normal sounds and absence of murmurs, rubs or gallops. Abdomen un remarkable and without evidence of organomegaly, masses, or abdominal aortic enlargement. Extremities nonedematous. Neuro: Cranial nerves II through XII are grossly intact, no focal motor deficits were noted, sensation to light touch and pinprick is intact. Psych: Patient is alert and oriented x3, she does not appear anxious or depressed On 08/19/18, patient was seen and examined and felt to be in stable condition for transfer to [facility] for further treatment. - Physical Exam Vital Signs Temp Pulse Resp BP Pulse Ox 97.9 F 66 16 118/51 L 99 08/19/18 20:08 08/19/18 20:08 08/19/18 20:08 08/19/18 20:08 08/19/18 20:08 Oxygen Delivery Method Room Air Weight: 90 kg Body Mass Index (BMI) 31.5 Finger Stick Blood Glucose 270 Intake and Output for Last 24 Hours 08/18/18 08/19/18 08/20/18 23:59 23:59 23:59 Intake Total 1620 / 1620 890 / 890 Balance 1620 / 1620 890 / 890 Laboratory Tests Past 24 Hrs 08/16/18 16:30 Diff Path Review Reviewed POC Glucose 08/19/18 08/19/18 08/19/18 16:33 11:35 06:55 POC Glucose 163 H 125 H 120 H Home Medications: Medications to take at Discharge Aspirin [Aspirin, Baby] 81 mg PO DAILY@0800 06/30/17 Nitroglycerin [Nitrostat] 0.4 mg SL PRN PRN 06/30/17 Pravastatin [Pravachol] 80 mg PO DAILY 06/30/17 furosemide 40 mg tablet 40 mg PO BID tab 11/19/17 Multivitamins,Therapeutic [Multivitamin] 1 tab PO DAILY 02/01/18 Albuterol Inhaler [Ventolin Hfa] 2 puff INHALATION PRN PRN 02/02/18 Ticagrelor [Brilinta] 90 mg PO BID 02/24/18 isosorbide mononitrate ER 60 mg tablet,extended release 24 hr 60 mg PO BID tab 03/01/18 ranolazine ER 1,000 mg tablet,extended release,12 hr 500 mg PO BID tab 03/01/18 carvedilol 12.5 mg tablet 6.25 mg PO BID 04/05/18 losartan 50 mg tablet 50 mg PO DAILY #90 tab 04/05/18 amlodipine 5 mg tablet 2.5 mg PO QDAY tab 04/30/18 tramadol 50 mg tablet 50 mg PO Q6H PRN 04/30/18 Cholecalciferol (Vitamin D3) [Vitamin D3] 5,000 unit PO DAILY 06/21/18 Levothyroxine Sodium [Synthroid] 100 mcg PO DAILY 06/21/18 Insulin Glargine,Hum.rec.anlog [Toujeo Max Solostar] 30 unit SC DAILY 08/16/18 Insulin Regular, Human [Humulin R] 8 units SQ TID 08/16/18 Primary Care Physician: Diaan Cohen MD [Primary Care Provider] - Disposition: Acute care Hospital Minutes spent on discharge:: 30 Patient Condition:: Stable Medical Necessity - Tobacco Use Smoking Status: Never smoker Tobacco Use: Non-smoker Meaningful Use Info Meaningful Use Diagnoses (Choose all that apply): None applicable Code Visit OBSV E&M: 03848 Observation care discharge
== END 2018-08-19 20:15 | disposition short-term general hospital (02) ==
LOC: ED 17:10 → PCU 19:35
PROVIDERS: Internal Medicine Cardiovascular Disease; Student in an Organized Health Care Education/Training Program; Emergency Provider Emergency Medicine; Family Provider Internal Medicine; PCP Internal Medicine; Visit Provider Internal Medicine
DX: I25.119 Atherosclerotic heart disease of native coronary artery with unspecified angina pectoris (principal); Z95.5 Presence of coronary angioplasty implant and graft; E11.9 Type 2 diabetes mellitus without complications; I11.0 Hypertensive heart disease with heart failure; I50.9 Heart failure, unspecified; M79.89 Other specified soft tissue disorders; Z79.899 Other long term (current) drug therapy; Z79.4 Long term (current) use of insulin; Z79.82 Long term (current) use of aspirin; R60.0 Localized edema; K74.60 Unspecified cirrhosis of liver; D61.818 Other pancytopenia; I25.2 Old myocardial infarction; E66.9 Obesity, unspecified; Z68.31 Body mass index [BMI] 31.0-31.9, adult; Z71.3 Dietary counseling and surveillance; F20.9 Schizophrenia, unspecified; E78.5 Hyperlipidemia, unspecified
CPT/HCPCS: 36415; 71045; 71275; 78452; 80048; 80053; 80061; 82962; 83880; 84484; 85025; 85027; 85379; 85610; 85730; 93005; 93017; 93458; 96361; 96374; 97802; 99218; 99285; A9500; J7030; Q9967; A4216; C1769; G0378; J2785

== ENCOUNTER 2018-09-25 21:49 | Emergency (ER) | payer MEDICARE, MEDICAID, SELFPAY ==
[2018-09-16 10:54] VITALS: BMI 30.2
[2018-09-25 21:50] VITALS: PULSE 74; RESP 17; TEMP 37; O2SAT 99; BMI 32.8
--- NOTE | 2018-09-25 22:19 | EKG12_ITS ---
Test Reason : Blood Pressure : / mmHG Vent. Rate : 067 BPM Atrial Rate : 174 BPM P-R Int : 000 ms QRS Dur : 086 ms QT Int : 440 ms P-R-T Axes : 000 -04 070 degrees QTc Int : 464 ms Normal rhythm Nonspecific ST and T wave abnormality Prolonged QT Abnormal ECG Confirmed by SILVINA CHEW, NILSON ([id number]), department editor FRANNIE MARTI ([id number] on 09/30/2018 5:10:14 PM Referred By: SANJUANA Confirmed By:NILSON COOL MD
[2018-09-25 22:22] VITALS: BP 152/71; PULSE 74; RESP 17; TEMP 37; O2SAT 99
[2018-09-25 22:31] LABS: Absolute Lymphocyte Count 0.74 X10^3/ul (0.83-4.51); Absolute Neutrophil Count 0.9 X10^3/uL (2.0-7.7); Basophil# 0.01 X10^3/uL; Basophil% 0.5 % (0-1); Eosinophil# 0.08 X10^3/uL; Eosinophils% 4.2 % (0-5); Hematocrit 29.4 % (37-47); Hemoglobin 9.5 g/dl (12.0-15.0); Lymphocyte # 0.74 X10^3/ul (4.0); Lymphocyte % 39.2 % (19-41); Mean Corp Hgb Conc 32.3 g/gl (32-36); Mean Corpuscular Hgb 30.2 pg (27.0-32.0); Mean Corpuscular Volume 93.3 fL (81-99); Mean Platelet Vol. 10.1 fl (6.2-12.0); Monocyte# 0.13 X10^3/uL; Monocyte% 6.9 % (0-10); Neutrophil # 0.93 X10^3/uL (2.7-7.7); Neutrophil % 49.2 % (47-70); Platelet Count 119 K/mm3 (150-450); RBC Distribution Width CV 13.8 % (11.6-14.6); RBC Distribution Width SD 47.1 fl (35.1-43.9); Red Blood Count 3.15 M/mm3 (4.2-5.4); White Blood Count 1.9 K/mm3 (4.4-11.0)
[2018-09-25] MEDS: Ipratropium/Albuterol Sulfate 3 ML AMPUL.NEB INHALATION (22:31)
[2018-09-25 22:32] VITALS: PULSE 67; RESP 16
[2018-09-25 22:32] LABS: Differential Indicated SCAN CRITERIA MET; POSITIVE COUNT NO; POSITIVE DIFFERENTIAL YES; POSITIVE MORPHOLOGY NO
--- NOTE | 2018-09-25 22:40 | RAD_ITS ---
STUDY: X-RAY CHEST REASON FOR EXAM: Female, 78 years old. Cough TECHNIQUE: PA and lateral views of the chest. COMPARISON: 08/16/2018 chest x-ray and CT chest. FINDINGS: There are superimposed monitor leads. Stable areas of hyperinflation. There is no focal parenchymal abnormality. There is no demonstrated pleural abnormality. There are calcifications of the coronary arteries. Possible stent placement. Normal mediastinum and rell. Normal visualized pulmonary arteries. There is atherosclerotic calcification of the aortic arch with tortuosity. There are diffuse degenerative changes of the visualized thoracic spine. There is degenerative osteoarthritis of the bilateral shoulders. There is no demonstrated abnormality of the visualized soft tissue structures of the upper abdomen. RAD/Chest PA and Lateral IMPRESSION: Stable areas of hyperinflation and interstitial prominence. No pulmonary edema, congestive heart failure or confluent pneumonia. Other nonacute findings as outlined above. Electronically Signed: Cesia Vines MD at 23:35 EST , Service support ,
[2018-09-25 22:42] LABS: Anion Gap 9 (5-15); BUN 17 mg/dL (7-18); BUN/Creat Ratio 18.6 RATIO (10-20); Chloride 107 mmol/L (98-107); Creatinine, Serum 0.91 mg/dL (0.55-1.02); EST Glomerular Filtration Rate 63 mL/min (>60); Est Glom Filt Rate - Afr Amer 76 mL/min (>60); Estimated Creatinine Clearance 48.75 ml/min; Glucose 267 mg/dL (74-106); Potassium 3.8 mmol/L (3.5-5.1); Sodium Level 145 mmol/L (136-145)
[2018-09-25 22:52] LABS: Differential Comment SCANNED
[2018-09-26 00:07] VITALS: BP 147/61; PULSE 69; RESP 14; O2SAT 97
--- NOTE | 2018-09-26 00:13 | ED.DCSUM_ITS ---
- ER Visit Summary Date of Service: 09/26/18 Chief Complaint: Cough and abdominal pain is History of Present Illness: The patient is a 78 F presents with cough and abdominal pain that is been getting worse over the past 2-3 days. Patient states she has pressure over her upper abdomen. Patient states the pain goes into her chest. Patient states her chest pain is different from her cardiac chest pain. Patient admits to some nausea but denies any vomiting. Patient admits to some shortness of breath and a cough. Patient states she has noted some swelling in her legs. Patient also admits to some rhinorrhea and upper respiratory congestion. Patient denies any fevers or chills. Physical Examination: Vital signs are stable. Patient is afebrile. Patient is in no acute distress. Oral mucosa is pink and moist. Neck is supple. Trachea is midline. There is no JVD noted. Heart was regular rate and rhythm. Lungs were diminished in the bases bilaterally. Abdomen is soft. Bowel sounds are normal. There is some mild upper abdominal tenderness. There is no rebound or guarding noted. Cranial nerves II through XII are intact. There are no focal motor or sensory deficits noted. The remaining physical exam is within normal limits. Test Results: PA and lateral chest x-ray shows hyperinflation. There is no evidence of pulmonary edema or congestive heart failure. There is no evidence of pneumonia. EKG showed normal sinus rhythm with a rate of 67. There are no acute ST or T wave changes. This is unchanged compared to previous EKG dated 09/16/2018. CBC shows white blood cell count of 1.9, hemoglobin of 9.5, and platelet count of 119. Patient has a history of pancytopenia. Basic metabolic profile was essentially within normal limits. Troponin was 0.089. This was improved compared to previous result of 0.18. Emergency Department Course and Treatment: Patient states that after she ate she did feel a little bloated. Patient was advised to eat smaller amounts of food. Patient was instructed to follow-up with her primary care physician in 5-7 days. Patient understood and was agreeable with the plan. All questions were answered. Disposition: Discharge home Impression: Abdominal pain This note was generated with [employer] dictation software. It may contain incorrect words, spelling, and punctuation that were not noted in review of the chart prior to signing ED Disposition - Plan for ED Patient: Disposition: Home or Assisted Living Diagnosis: Abdominal pain Instructions: ED Abdominal Pain Unkn Cause Referrals: Diana Cohen MD [Primary Care Provider] -
--- NOTE | 2018-09-26 00:32 | ED.RN ---
PT CALLING TAXI FOR A RIDE HOME. PT INFORMED THAT SHE COULD WAIT IN ROOM UNTIL TAXI COMES. IV REMOVED.
--- NOTE | 2018-09-26 00:50 | ED.RN ---
PT NEEDED TO USE RESTROOM. USED HER ROLLATOR TO USE RESTROOM IN LOBBY AND TOOK ALL OF HER PERSONAL BELONGINGS AND CHOSE TO WAIT IN LOBBY.
== END 2018-09-26 00:51 | disposition home or self-care (01) ==
PROVIDERS: Emergency Provider Emergency Medicine; Family Provider Internal Medicine; PCP Internal Medicine
DX: R10.10 Upper abdominal pain, unspecified (principal); R05 Cough; I25.10 Atherosclerotic heart disease of native coronary artery without angina pectoris; I50.9 Heart failure, unspecified; E11.9 Type 2 diabetes mellitus without complications; D61.818 Other pancytopenia; Z79.4 Long term (current) use of insulin; Z79.82 Long term (current) use of aspirin; Z79.899 Other long term (current) drug therapy
CPT/HCPCS: 71046; 80048; 84484; 85025; 93005; 94640; 99285

== ENCOUNTER 2018-10-06 09:10 | Observation (INO) | payer MEDICARE, MEDICAID, SELFPAY ==
[2018-10-06] VITALS (11 sets, daily range): BP systolic 117–141; BP diastolic 44–69; PULSE 62–75; RESP 13–18; TEMP 36.4–38.8; O2SAT 96–99; BMI 30.5; BMI 29.7
--- NOTE | 2018-10-06 09:12 | EKG12_ITS ---
Test Reason : SOB Blood Pressure : / mmHG Vent. Rate : 068 BPM Atrial Rate : 068 BPM P-R Int : 194 ms QRS Dur : 090 ms QT Int : 484 ms P-R-T Axes : 059 -07 036 degrees QTc Int : 514 ms Normal sinus rhythm Nonspecific ST and T wave abnormality Prolonged QT Abnormal ECG Confirmed by PAOLO CUEVAS ([id number]), features editor THAD HOOKER ([id number]) on 10/11/2018 1:39:56 PM Referred By: FRANK Confirmed By:PAOLO CUEVAS
--- NOTE | 2018-10-06 09:18 | RAD_ITS ---
STUDY: X-RAY CHEST REASON FOR EXAM: Female, 78 years old. Cough. TECHNIQUE: Single AP portable view of the chest. COMPARISON: September 25, 2018. FINDINGS: The lungs are clear and expanded. There is no demonstrated pleural abnormality. There are endovascular stent(s) present. Normal mediastinum and rell. Normal visualized pulmonary arteries. Normal visualized aortic arch and descending thoracic aorta. There is demineralization of the osseous structures. There are diffuse degenerative changes of the visualized thoracic spine. Normal visualized ribs, clavicles, and shoulders. There is no demonstrated abnormality of the visualized soft tissue structures of the upper abdomen. RAD/Chest 1 View (Portable) IMPRESSION: Degenerative changes, as described above. No demonstrated acute cardiopulmonary process. Electronically Signed: Manny Lopez MD at 9:49 EST , Service support ,
[2018-10-06] MEDS: Ipratropium/Albuterol Sulfate 3 ML AMPUL.NEB INHALATION (09:26)
[2018-10-06 09:42] LABS: Absolute Lymphocyte Count 0.62 X10^3/ul (0.83-4.51); Absolute Neutrophil Count 1.6 X10^3/uL (2.0-7.7); Basophil# 0.01 X10^3/uL; Basophil% 0.4 % (0-1); Eosinophil# 0.11 X10^3/uL; Eosinophils% 4.2 % (0-5); Hemoglobin 9.2 g/dl (12.0-15.0); Lymphocyte # 0.62 X10^3/ul (4.0); Lymphocyte % 23.8 % (19-41); Mean Corp Hgb Conc 31.7 g/gl (32-36); Mean Corpuscular Hgb 29.9 pg (27.0-32.0); Mean Corpuscular Volume 94.2 fL (81-99); Mean Platelet Vol. 9.1 fl (6.2-12.0); Monocyte# 0.23 X10^3/uL; Monocyte% 8.8 % (0-10); Neutrophil # 1.64 X10^3/uL (2.7-7.7); Neutrophil % 62.8 % (47-70); Platelet Count 107 K/mm3 (150-450); RBC Distribution Width CV 13.5 % (11.6-14.6); RBC Distribution Width SD 44.5 fl (35.1-43.9); Red Blood Count 3.08 M/mm3 (4.2-5.4); White Blood Count 2.6 K/mm3 (4.4-11.0)
[2018-10-06 09:43] LABS: POSITIVE COUNT NO; POSITIVE DIFFERENTIAL NO; POSITIVE MORPHOLOGY NO
[2018-10-06 09:53] LABS: D-Dimer Quantitative (DVT/PE) 2.17 FEU/ug/m (0.27-0.49)
[2018-10-06 09:57] LABS: Anion Gap 6 (5-15); BUN 14 mg/dL (7-18); BUN/Creat Ratio 18.3 RATIO (10-20); Calcium,Total 8.3 mg/dL (8.5-10.1); Chloride 105 mmol/L (98-107); Creatinine, Serum 0.76 mg/dL (0.55-1.02); EST Glomerular Filtration Rate 78 mL/min (>60); Est Glom Filt Rate - Afr Amer 94 mL/min (>60); Estimated Creatinine Clearance 44.36 ml/min; Glucose 133 mg/dL (74-106); Potassium 3.3 mmol/L (3.5-5.1); Sodium Level 138 mmol/L (136-145)
--- NOTE | 2018-10-06 10:08 | CT_ITS ---
STUDY: CTA CHEST REASON FOR EXAM: Female, 78 years old. Elevated d-dimer. CHF. RADIATION DOSAGE (If Supplied By Facility): CTDIvol = ( 16.47 ) mGy, DLP = ( 665.85 ) mGycm TECHNIQUE: The examination was performed with the intravenous administration of Isovue 370 100 IV. Post-processing of the angiographic images was performed, with multiplanar reformation and 3D reconstruction. Individualized dose optimization techniques were used for this CT. COMPARISON: Chest x-ray October 06, 2018. Chest CT August 16, 2018 FINDINGS: Normal enhancement of the main pulmonary artery and right and left pulmonary arteries. Normal enhancement of the bilateral peripheral pulmonary arteries. There is no demonstrated pulmonary embolism. There is atherosclerotic calcification of the aortic arch. There is no demonstrated aortic dissection. There are calcifications of the coronary arteries. There are endovascular stent(s) present. Normal mediastinum. Normal hilar regions. Normal visualized trachea and bronchi. The lungs are well expanded. There are patchy groundglass opacities in the right upper lobe, series 2 images 134/231 through 160/231. Normal pleura. Normal chest wall structures. There are degenerative changes of thoracic spine. There is a diffuse contour abnormality of the liver consistent with cirrhotic changes. There is splenomegaly.. A small hiatal hernia. There are cholecystectomy clips CT/CTA Chest W/WO Contrast IMPRESSION: CTA chest examination, without a demonstrated pulmonary embolism or arterial dissection. Right upper lung infiltrate or edema. Electronically Signed: Manny Lopez MD at 11:33 EST , Service support ,
--- NOTE | 2018-10-06 10:40 | ED.VISSUMM ---
- ER Visit Summary Date of Service: 10/06/18 Chief Complaint: [] Cough for months History of Present Illness: The patient is a 78 F [] she believes she might have COPD she has a history of chronic coughing for months she has had an extensive outpatient and ED evaluation by her history that was unremarkable she was seen by her physicians put on a cough suppressant type medicine that did not help she presents today again complaining of the cough, she denies actual shortness of breath chest pain no numbness weakness paresthesias normal bowel bladder habits she does report she has chronic pain in multiple joints for which she takes tramadol and none of that is no Physical Examination: [] Vital signs show blood pressure of 117/55 her pulse ox is 98% she is afebrile General, no distress resting comfortably HEENT is generally unremarkable The neck is supple no adenopathy Cardiovascular, regular rate and rhythm Lungs, clear bilateral there is no cough she has good excursion Abdomen, soft nontender Extremities, no clubbing cyanosis or edema Neurologic, awake alert answering questions appropriately moving all 4 extremities Test Results: [] Emergency Department Course and Treatment: [] All the above screening labs are obtained that are generally unremarkable, except her d-dimer is elevated at 2.5 her EKG shows a sinus rhythm and her troponin slightly elevated to about 0.075, CTA of the chest is ordered Patient screening labs are otherwise unremarkable chronic anemia to 9.2, CTA shows no PE but right upper lobe infiltrate versus edema given the abnormal chest x-ray the chronic coughing failure outpatient therapy the abnormal troponin we have asked the hospital see her for admission Treatment Plan: [] Disposition: [] Admit stable Impression: [] rt Upper lobe pneumonia, chronic cough, abnormal troponin, failed outpatient therapy This note was generated with [employer] dictation software. It may contain incorrect words, spelling, and punctuation that were not noted in review of the chart prior to signing ED Disposition - Plan for ED Patient: Referrals: Diana Cohen MD [Primary Care Provider] -
--- NOTE | 2018-10-06 12:26 | HP.PCM_ITS ---
Problem List (1) URI Status: Acute (2) Atypical chest pain Status: Acute (3) Non-rheumatic mitral regurgitation Status: Chronic (4) Nonrheumatic tricuspid valve regurgitation Status: Chronic (5) Essential hypertension Status: Chronic (6) Elevated troponin Status: Acute (7) Thrombocytopenia Status: Chronic (8) CAD (coronary artery disease) Status: Chronic Qualifiers: Coronary Disease-Associated Artery/Lesion type: [place] artery [place] vs. transplanted heart: [place] heart (9) History of spinal fusion Status: Chronic Comment: anterior (10) Non-rheumatic aortic stenosis Status: Chronic (11) History of coronary artery stent placement Status: Chronic Comment: PTCA-ostail/prox LCx @ [facility] 11/09/2017 PTCA-Cutting Balloon Atherectomy w/ placement of 2.5 x 20 mm Synergy Stent, Distal LM-into the Ostium of LAD Stented w/ 4.0 x 16 mm Synergy Stent 06/2017PTCA-OM 04/2017 PCI-LAD with a 2.75x38 Promus Premier drug eluting stent. 12/15/13 RAYMON of Right Posterior Lateral (Mid) wIth 3.0 x 2.8 Cypher, followed upstream with 3.0 x 8 Cypher, RAYMON of Right PDA (Ostial) with 25 x 28 Cypher 09/17/2007 (12) Chronic systolic (congestive) heart failure Status: Chronic (13) Schizophrenia Status: Chronic Qualifiers: Schizophrenia type: unspecified Qualified Code(s): F20.9 - Schizophrenia, unspecified (14) S/P PTCA (percutaneous transluminal coronary angioplasty) Status: Chronic Comment: PCI of ostial and mid LCX in-stent restenosis with laser atherectomy, balloon angioplasty per Dr. Rodriguez [facility] 08/20/18 PCI PTCA and laser atherectomy of proximal Circumflex 02/03/2018 PTCA-ostial/prox LCx @ [facility] 11/09/2017 PTCA-Cutting Balloon Atherectomy w/ placement of 2.5 x 20 mm Synergy Stent, Distal LM-into the Ostium of LAD Stented w/ 4.0 x 16 mm Synergy Stent 06/2017PTCA-OM 04/2017 PCI-LAD with a 2.75x38 Promus Premier drug eluting stent. 12/15/13 RAYMON of Right Posterior Lateral (Mid) wIth 3.0 x 2.8 Cypher, followed upstream with 3.0 x 8 Cypher, RAYMON of Right PDA (Ostial) with 25 x 28 Cypher 09/17/2007 (15) History of coronary artery stent placement Status: Chronic (16) Atherosclerotic heart disease [place] coronary artery w/angina pectoris Status: Chronic Qualifiers: [place] vs. transplanted heart: [place] heart Qualified Code(s): I25.119 - Atherosclerotic heart disease of [place] coronary artery with unspecified angina pectoris Comment: PCI of ostial and mid LCX in-stent restenosis with laser atherectomy, balloon angioplasty per Dr. Rodriguez [facility] 08/20/18 PCI PTCA and laser atherectomy of proximal Circumflex 02/03/2018 PTCA-ostail/prox LCx @ [facility] 11/09/2017 PTCA-Cutting Balloon Atherectomy w/ placement of 2.5 x 20 mm Synergy Stent, Distal LM-into the Ostium of LAD Stented w/ 4.0 x 16 mm Synergy Stent 06/2017PTCA-OM 04/2017 PCI-LAD with a 2.75x38 Promus Premier drug eluting stent. 12/15/13 RAYMON of Right Posterior Lateral (Mid) wIth 3.0 x 2.8 Cypher, followed upstream with 3.0 x 8 Cypher, RAYMON of Right PDA (Ostial) with 25 x 28 Cypher 09/17/2007 (17) Pancytopenia Status: Chronic (18) Hypothyroidism Status: Chronic Qualifiers: Hypothyroidism type: unspecified (19) Hyperlipidemia Status: Chronic Qualifiers: Hyperlipidemia type: unspecified Qualified Code(s): E78.5 - Hyperlipidemia, unspecified (20) Diabetes mellitus, type II Status: Chronic Qualifiers: Diabetes mellitus fdc insulin use: with terminal gauger use Diabetes mellitus complication status: with unspecified complications Qualified Code(s): E11.8 - Type 2 diabetes mellitus with unspecified complications; Z79.4 - MCFP (current) use of insulin (21) Venous insufficiency Status: Chronic (22) NSTEMI (non-ST elevated myocardial infarction) Status: Chronic (23) Intermittent claudication Status: Chronic (24) Obesity (BMI 30.0-34.9) Status: Chronic History of Present Illness Date of Admission: 10/06/18 Chief Complaint: Multiple symptoms including shortness of breath, URI for 2 weeks The patient is a 78 year old F with multiple comorbidities including coronary artery disease status post multiple stents, last one in August 2017 came to ED with URI symptoms including sore throat, postnasal drip for 2 weeks. Patient also for subjective chills, generalized muscle weakness, on and off chest wall pain in front and left scapular region, seems mainly pleuritic/musculoskeletal type for about 2 weeks. Patient does not have shortness of breath at rest but it gets worse on walking/exertion. Bilateral lower leg edema, swelling and chronic pain, gotten worse after discharge. 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 Denies new lower urinary tract symptoms including burning micturition/dysuria. Has chronic urinary incontinence and urgency. In ED, she was found mild hypokalemic. Chest x-ray did not show acute process but later CTA was done most probably from positive d-dimer and reported as right upper lung infiltrate/edema. It more looks like atelectasis but does not seem typical pneumonic consolidation. Patient was given vancomycin and Zosyn in the ED because of recent hospital visit. [] Past Medical History Past Medical History (Chronic Problems): Chronic Problems (Last Reviewed 09/16/18 @ 11:02 by Zoila Piedra) Non-rheumatic mitral regurgitation (Chronic) Nonrheumatic tricuspid valve regurgitation (Chronic) Essential hypertension (Chronic) Thrombocytopenia (Chronic) CAD (coronary artery disease) (Chronic) History of spinal fusion (Chronic) anterior Non-rheumatic aortic stenosis (Chronic) History of coronary artery stent placement (Chronic) PTCA-ostail/prox LCx @ [facility] 11/09/2017 PTCA-Cutting Balloon Atherectomy w/ placement of 2.5 x 20 mm Synergy Stent, Distal LM-into the Ostium of LAD Stented w/ 4.0 x 16 mm Synergy Stent 06/2017PTCA-OM 04/2017 PCI-LAD with a 2.75x38 Promus Premier drug eluting stent. 12/15/13 RAYMON of Right Posterior Lateral (Mid) wIth 3.0 x 2.8 Cypher, followed upstream with 3.0 x 8 Cypher, RAYMON of Right PDA (Ostial) with 25 x 28 Cypher 09/17/2007 Chronic systolic (congestive) heart failure (Chronic) Schizophrenia (Chronic) S/P PTCA (percutaneous transluminal coronary angioplasty) (Chronic ~11/09/17) PCI of ostial and mid LCX in-stent restenosis with laser atherectomy, balloon angioplasty per Dr. Rodriguez [facility] 08/20/18 PCI PTCA and laser atherectomy of proximal Circumflex 02/03/2018 PTCA-ostial/prox LCx @ [facility] 11/09/2017 PTCA-Cutting Balloon Atherectomy w/ placement of 2.5 x 20 mm Synergy Stent, Distal LM-into the Ostium of LAD Stented w/ 4.0 x 16 mm Synergy Stent 06/2017PTCA-OM 04/2017 PCI-LAD with a 2.75x38 Promus Premier drug eluting stent. 12/15/13 RAYMON of Right Posterior Lateral (Mid) wIth 3.0 x 2.8 Cypher, followed upstream with 3.0 x 8 Cypher, RAYMON of Right PDA (Ostial) with 25 x 28 Cypher 09/17/2007 History of coronary artery stent placement (Chronic) Atherosclerotic heart disease [place] coronary artery w/angina pectoris (Chronic) PCI of ostial and mid LCX in-stent restenosis with laser atherectomy, balloon angioplasty per Dr. Rodriguez [facility] 08/20/18 PCI PTCA and laser atherectomy of proximal Circumflex 02/03/2018 PTCA-ostail/prox LCx @ [facility] 11/09/2017 PTCA-Cutting Balloon Atherectomy w/ placement of 2.5 x 20 mm Synergy Stent, Distal LM-into the Ostium of LAD Stented w/ 4.0 x 16 mm Synergy Stent 06/2017PTCA-OM 04/2017 PCI-LAD with a 2.75x38 Promus Premier drug eluting stent. 12/15/13 RAYMON of Right Posterior Lateral (Mid) wIth 3.0 x 2.8 Cypher, followed upstream with 3.0 x 8 Cypher, RAYMON of Right PDA (Ostial) with 25 x 28 Cypher 09/17/2007 Pancytopenia (Chronic) Hypothyroidism (Chronic) Hyperlipidemia (Chronic) Diabetes mellitus, type II (Chronic) Venous insufficiency (Chronic) NSTEMI (non-ST elevated myocardial infarction) (Chronic ~09/16/17) Intermittent claudication (Chronic) Obesity (BMI 30.0-34.9) (Chronic) Medical History: Medical History (Last Reviewed 09/16/18 @ 11:02 by Zoila Piedra) Non-rheumatic mitral regurgitation (Chronic) I34.0 Nonrheumatic tricuspid valve regurgitation (Chronic) I36.1 Essential hypertension (Chronic) I10 Non-rheumatic aortic stenosis (Chronic) I35.0 Chronic systolic (congestive) heart failure (Chronic) I50.22 Schizophrenia (Chronic) F20.9 Atherosclerotic heart disease [place]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 Rodriguez [facility] 08/20/18 PCI PTCA and laser atherectomy of proximal Circumflex 02/03/2018 PTCA-ostail/prox LCx @ [facility] 11/09/2017 PTCA-Cutting Balloon Atherectomy w/ placement of 2.5 x 20 mm Synergy Stent, Distal LM-into the Ostium of LAD Stented w/ 4.0 x 16 mm Synergy Stent 06/2017PTCA-OM 04/2017 PCI-LAD with a 2.75x38 Promus Premier drug eluting stent. 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) K75.81, K74.60 CHF (congestive heart failure) (Inactive) I50.9 Hypertension (Inactive) I10 Mitral valve insufficiency (Inactive) I34.0 Tricuspid valve insufficiency (Inactive) I07.1 Allergies atorvastatin calcium [From Lipitor] Adverse Reaction (Verified 09/16/18 10:57) Unknown rosiglitazone maleate [From Avandia] Adverse Reaction (Verified 09/16/18 10:57) Other Home Medications: Ambulatory Orders Medication Instructions Recorded Aspirin [Aspirin, Baby] 81 mg PO DAILY@0800 06/30/17 Nitroglycerin [Nitrostat] 0.4 mg SL PRN PRN 06/30/17 Multivitamins,Therapeutic 1 tab PO DAILY 02/01/18 [Multivitamin] Albuterol Inhaler [Ventolin Hfa] 2 puff INHALATION PRN PRN 02/02/18 tramadol 50 mg tablet 50 mg PO Q6H PRN 04/30/18 Levothyroxine Sodium [Synthroid] 100 mcg PO DAILY 06/21/18 ascorbic acid (vitamin C) 500 mg 500 mg PO DAILY 09/13/18 tablet benzonatate 100 mg capsule 100 mg PO TID PRN 09/13/18 fluticasone 50 mcg/actuation nasal 2 spray INTRANASAL DAILY 09/13/18 spray,suspension folic acid 1 mg tablet 1 mg PO DAILY 09/13/18 insulin U- 100 regular human 100 0.8 unit SC TID ml 09/13/18 unit/mL injection solution insulin glargine (U-300) conc. 300 30 unit SC DAILY 09/13/18 unit/mL (3 mL) subcutaneous pen cholecalciferol (vitamin D3) 1,000 2,000 unit PO DAILY cap 09/16/18 unit capsule amlodipine 2.5 mg tablet 2.5 mg PO DAILY #30 tab 10/03/18 carvedilol 6.25 mg tablet 6.25 mg PO BID #60 tab 10/03/18 furosemide 40 mg tablet 40 mg PO BID #60 tab 10/03/18 isosorbide mononitrate ER 60 mg 60 mg PO DAILY #30 tab 10/03/18 tablet,extended release 24 hr losartan 50 mg tablet 50 mg PO DAILY #30 tab 10/03/18 pravastatin 80 mg tablet 80 mg PO DAILY #30 tab 10/03/18 ranolazine ER 1,000 mg 1,000 mg PO BID #60 tab 10/03/18 tablet,extended release,12 hr ticagrelor 90 mg tablet 90 mg PO BID #60 tab 10/03/18 Surgical History: Surgical History (Last Reviewed 09/16/18 @ 11:02 by Zoila Piedra) History of spinal fusion (Chronic) Z98.1 anterior History of coronary artery stent placement (Chronic) Z95.5 PTCA-ostail/prox LCx @ [facility] 11/09/2017 PTCA-Cutting Balloon Atherectomy w/ placement of 2.5 x 20 mm Synergy Stent, Distal LM-into the Ostium of LAD Stented w/ 4.0 x 16 mm Synergy Stent 06/2017PTCA-OM 04/2017 PCI-LAD with a 2.75x38 Promus Premier drug eluting stent. 12/15/13 RAYMON of Right Posterior Lateral (Mid) wIth 3.0 x 2.8 Cypher, followed upstream with 3.0 x 8 Cypher, RAYMON of Right PDA (Ostial) with 25 x 28 Cypher 09/17/2007 S/P PTCA (percutaneous transluminal coronary angioplasty) (Chronic) Onset Date: ~11/09/17 Z98.61 PCI of ostial and mid LCX in-stent restenosis with laser atherectomy, balloon angioplasty per Dr. Rodriguez [facility] 08/20/18 PCI PTCA and laser atherectomy of proximal Circumflex 02/03/2018 PTCA-ostial/prox LCx @ [facility] 11/09/2017 PTCA-Cutting Balloon Atherectomy w/ placement of 2.5 x 20 mm Synergy Stent, Distal LM-into the Ostium of LAD Stented w/ 4.0 x 16 mm Synergy Stent 06/2017PTCA-OM 04/2017 PCI-LAD with a 2.75x38 Promus Premier drug eluting stent. 12/15/13 RAYMON of Right Posterior Lateral (Mid) wIth 3.0 x 2.8 Cypher, followed upstream with 3.0 x 8 Cypher, RAYMON of Right PDA (Ostial) with 25 x 28 Cypher 09/17/2007 History of coronary artery stent placement (Chronic) Z95.5 History of appendectomy Z90.49 History of cholecystectomy Z90.49 History of tonsillectomy and adenoidectomy Z98.890 Surgical History: angioplasty, appendectomy, cholecystectomy, tonsillectomy, - - Spinal fusion Psychiatric History: No pertinent psych hx OSD CLERK History: No pertinent OSD CLERK history Smoking Status: Unknown if ever smoked - *Family History Maternal Family History: Family History (Last Reviewed 09/16/18 @ 11:02 by Zoila Piedra) Mother CAD (coronary artery disease) Father CAD (coronary artery disease) History Items: Heart Disease - CAD, - - Schizophrenia Paternal Family History: Family History (Last Reviewed 09/16/18 @ 11:02 by Zoila Piedra) Mother CAD (coronary artery disease) Father CAD (coronary artery disease) History Items: Heart Disease Review of Systems Constitutional: Reports: Chills, Malaise, Weakness, Fatigue. Denies: Fever HEENT: Reports: Difficulty Hearing, Difficulty Swallowing - Due to sore throat, Post Nasal Drip, Sore Throat. Denies: Head Aches, Sinus Congestion, Sinus Drainage Cardiovascular: Reports: Chest Pain. Denies: Palpitations Respiratory: Reports: Cough - For 2-3 months on and off, Shortness of breath upon exertion. Denies: Shortness of breath at rest, Sputum production Gastrointestinal: Denies: Abdominal Pain, Nausea, Vomiting Genitourinary: Reports: Incontinence - Chronic. Denies: Dysuria Musculoskeletal: Denies: Joint Pain, Joint Tenderness Skin: Denies: Rash, Wounds Neurological: Denies: Numbness, Tingling, Focal weakness Psychiatric: Denies: Anxiety, Depression, Homicidal Ideations, Suicidal Ideations Hematologic/ Lymphatic: Denies: Easy Bruising, Easy Bleeding VTE Information - Inpt Only VTE Present on Admission: No VTE Mechan Device Prophylaxis: None VTE Pharm Prophylaxis ordered?: Yes Patient Problems: Active and Suspected Problems (Last Reviewed 09/16/18 @ 11:02 by Zoila Piedra) URI (Acute) Atypical chest pain (Acute) - Physical Exam General: Alert, Oriented x3, Cooperative, - - Cognitive deficit possible MDI or dementia HEENT: Atraumatic, PERRLA, EOMI, Normocephalic Oral: Dry Mucosa, - - Inflammation of deep pharyngeal wall/soft palate Neck: Supple, No JVD, Negative Carotid Bruits Lungs: Diminished - Diminished in bilateral lung bases, Rhonchi Cardiovascular: Regular rate, Normal S1, Normal S2, No murmurs, Murmur - Systolic murmur present over left lower sternal border Abdomen: Bowel Sounds Present, Soft, Non Tender, Non-Distended Extremities: Capillary Refill Less than 3 Seconds, Edema Skin: No rashes, No breakdown Musculoskeletal: No Tenderness to Palpation of Joints or Extremities, Arthritic Changes, Muscle Wasting Neurological: Cranial nerves II-XII grossly intact, Deep Tendon Reflexes 2+/4 and Symmetrical, Neuro grossly intact Psych/Mental Status: Normal Affect, Appropriate Vital Signs Temp Pulse Resp BP Pulse Ox 97.6 F L 62 13 117/55 L 98 10/06/18 09:11 10/06/18 11:11 10/06/18 11:11 10/06/18 09:11 10/06/18 11:11 Oxygen Delivery Method Room Air Weight: 195 lb Body Mass Index (BMI) 30.5 Finger Stick Blood Glucose 270 Laboratory Tests Past 24 Hrs 10/06/18 10/06/18 10/06/18 07:33 07:33 07:33 WBC 2.6 L RBC 3.08 L Hgb 9.2 L Hct 29.0 L MCV 94.2 MCH 29.9 MCHC 31.7 L RDW 13.5 RDW Differential 44.5 H Plt Count 107 L MPV 9.1 Immature Gran % (Auto) 0.000 Neut % (Auto) 62.8 Lymph % (Auto) 23.8 [place] % (Auto) 8.8 Eos % (Auto) 4.2 Baso % (Auto) 0.4 Absolute Neuts (auto) 1.6 L Absolute Lymphs (auto) 0.62 L Total Counted Not Reportable D-Dimer Quant (PE/DVT) 2.17 H* Sodium 138 Potassium 3.3 L Chloride 105 Carbon Dioxide 27.0 Anion Gap 6 BUN 14 Creatinine 0.76 Estim Creat Clear Calc 44.36 Est GFR (MDRD) Af Amer 94 Est GFR (MDRD) Non-Af 78 BUN/Creatinine Ratio 18.3 Glucose 133 H Calcium 8.3 L Troponin I 0.076 H Assessment/Plan All Active Problems (Last Reviewed 09/16/18 @ 11:02 by Zoila Piedra) URI (Acute) Atypical chest pain (Acute) Elevated troponin (Acute) Cognitive changes (Resolved) NSTEMI (non-ST elevated myocardial infarction) (Resolved) Unstable angina (Resolved) The patient is a 78 year old F with multiple comorbidities including coronary artery disease status post multiple stents, last one in August 2017 came to ED with URI symptoms including sore throat, postnasal drip for 2 weeks. Patient also for subjective chills, generalized muscle weakness, on and off chest wall pain in front and left scapular region, seems mainly pleuritic/musculoskeletal type for about 2 weeks. Patient has on and off chronic cough, mainly dry for about 3 months since July 2018. Patient does not have shortness of breath at rest but it gets worse on walking/exertion. Bilateral lower leg edema, swelling and chronic pain, gotten worse after discharge. 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 Denies new lower urinary tract symptoms including burning micturition/dysuria. Has chronic urinary incontinence and urgency. In ED, she was found mild hypokalemic. Troponin mildly elevated. Chest x-ray did not show acute process but later CTA was done most probably from positive d- dimer and reported as right upper lung infiltrate/edema. It more looks like atelectasis but does not seem typical pneumonic consolidation. Patient was given vancomycin and Zosyn in the ED because of recent hospital visit. 1. URI, most probably viral bronchitis with low suspicion of right upper lobe pneumonia: Patient is being admitted on PCU. Pneumonia workup. Empirically started on IV Rocephin and Zithromax. Respiratory panel, sputum culture ordered. Bronchodilator as needed. Incentive spirometry and chest physiotherapy. History of COPD not clear. It seems patient has never had PFT. 2. Atypical chest pain with intermittent troponin: The patient's chest pain is not typical of angina. Cycle serial troponins. During patient's last admission in August 2018, patient was admitted for unstable angina but nuclear stress test shows reversible ischemia and patient underwent heart cath on August 19, 2018 showed single-vessel coronary artery disease, occlusion of 85% proximal circumflex for which patient was transferred to [facility] for PCI on gas shovel operator recommendation and had stenting done. Patient states she is compliant to her antiplatelet regimen. Normal LV size, wall motion and systolic function was noted on cardiac cath. EF by LV gram 65%. patient does not have echo here; we will try to get echo from [facility] if it was done there. 3. Chronic heart failure most probably his heart failure of preserved EF,: As mentioned above. Continue heart medications. Patient has MR,TR initially problem list but has not had echo in our record. 4. Diabetes mellitus type 2, Accu-Chek before meals and at bedtime and cover with NovoLog sliding scale. 5. Hypothyroidism, dyslipidemia, chronic venous insufficiency: TSH and free T4 tomorrow a.m. Fasting profile done on August 17, 2018 shows LDL 56, HDL 52, total cholesterol 123 and TG 75. Multiple comorbidities complicates the present care and expect difficult and delay recovery 6. Schizophrenia and possible mild cognitive deficit, MDR early dementia: Complete history is unobtainable DVT prophylaxis: On Lovenox 40 mg subcu daily. Discontinue if platelet count drops less than 50,000 or hemoglobin less than 8 g% Laboratory Results 10/06/18 07:33: WBC 2.6 L, RBC 3.08 L, Hgb 9.2 L, Hct 29.0 L, MCV 94.2, MCH 29.9, MCHC 31.7 L, RDW 13.5, RDW Differential 44.5 H, Plt Count 107 L, MPV 9.1, Immature Gran % (Auto) 0.000, Neut % (Auto) 62.8, Lymph % (Auto) 23.8, [place] % (Auto) 8.8, Eos % (Auto) 4.2, Baso % (Auto) 0.4, Absolute Neuts (auto) 1.6 L, Absolute Lymphs (auto) 0.62 L, Total Counted Not Reportable 10/06/18 07:33: D-Dimer Quant (PE/DVT) 2.17 H* 10/06/18 07:33: Sodium 138, Potassium 3.3 L, Chloride 105, Carbon Dioxide 27.0, Anion Gap 6, BUN 14, Creatinine 0.76, Estim Creat Clear Calc 44.36, Est GFR (MDRD) Af Amer 94, Est GFR (MDRD) Non-Af 78, BUN/Creatinine Ratio 18.3, Glucose 133 H, Calcium 8.3 L, Troponin I 0.076 H Clinical Impression(s) from Imaging Studies Chest X-Ray 10/06/18 09:18 IMPRESSION: Degenerative changes, as described above. No demonstrated acute cardiopulmonary process. Chest CTA 10/06/18 10:08 IMPRESSION: CTA chest examination, without a demonstrated pulmonary embolism or arterial dissection. Right upper lung infiltrate or edema. Code Visit OBSV E&M: [id number] Initial observation care L3
--- NOTE | 2018-10-06 12:45 | ED.RN ---
CALLED PHARMACY FOR ATJames.
[2018-10-06] MEDS: Doxycycline 100 MG CAPSULE PO ×2 (15:32→22:55)
[2018-10-06] MEDS: 0.9% Normal Saline 1,000 ML 75 ML IV (15:32)
[2018-10-06] MEDS: Enoxaparin 40 MG/0.4 ML Syringe SC (15:33)
[2018-10-06] MEDS: Ceftriaxone 1 GM/50 ML BAG IV (15:33)
[2018-10-06] MEDS: Furosemide 40 MG Tablet PO (15:33)
[2018-10-06 15:51] LABS: Bedside Glucose 76 mg/dL (70-110)
[2018-10-06 19:54] LABS: Color, Urine Yellow (Yellow); Glucose, Dipstick Normal (Normal); Ketone-Dipstick Negative (Negative); Leukocyte Esterase-Dipstick Negative /ul (Negative); Nitrite-Dipstick Negative (Negative); Occult Blood-Urine Negative /ul (Negative); Protein-Dipstick Negative (Negative); Specific Gravity, Urine 1.005 (1.002-1.030); Urine Bilirubin Dipstick Negative (Negative); Urine Clarity Clear (Clear); Urine Urobilinogen Normal (Normal)
[2018-10-06] MEDS: Ranolazine 500 MG Tablet 1000 MG PO (22:53)
[2018-10-06] MEDS: TICAGRELOR 90 MG TABLET PO (22:53)
[2018-10-06] MEDS: Acetaminophen 325 MG Tablet 650 MG PO (22:53)
[2018-10-06] MEDS: Pravastatin 80 MG Tablet PO (22:53)
[2018-10-06] MEDS: Benzonatate 100 MG Capsule PO (22:53)
[2018-10-06] MEDS: guaiFENesin 1,200 MG Tablet 1200 MG PO (22:53)
[2018-10-06] MEDS: Famotidine 20 MG Tablet PO (22:53)
[2018-10-06] MEDS: Carvedilol 6.25 MG Tablet PO (22:53)
[2018-10-07] VITALS (7 sets, daily range): BP systolic 114–127; BP diastolic 49–63; PULSE 60–74; RESP 15–18; TEMP 36.6–37.7; O2SAT 95–97
[2018-10-07 00:50] LABS: Bedside Glucose 161 mg/dL (70-110)
[2018-10-07] MEDS: Levothyroxine 100 MCG Tablet PO (05:27)
--- NOTE | 2018-10-07 05:55 | EKG12_ITS ---
Test Reason : AM EKG Blood Pressure : / mmHG Vent. Rate : 059 BPM Atrial Rate : 059 BPM P-R Int : 148 ms QRS Dur : 092 ms QT Int : 506 ms P-R-T Axes : 035 006 022 degrees QTc Int : 500 ms Sinus bradycardia Nonspecific ST and T wave abnormality Prolonged QT Abnormal ECG When compared with ECG of 06-OCT-2018 09:24, MANUAL COMPARISON REQUIRED, DATA IS UNCONFIRMED Confirmed by SILVINA CEHW, NILSON ([id number]), senior editor THAD HOOKER ([id number]) on 10/08/2018 1:08:36 PM Referred By: WALI Confirmed By:NILSON COOL MD
[2018-10-07 06:31] LABS: Absolute Lymphocyte Count 0.86 X10^3/ul (0.83-4.51); Absolute Neutrophil Count 1.3 X10^3/uL (2.0-7.7); Basophil# 0.01 X10^3/uL; Basophil% 0.4 % (0-1); Eosinophil# 0.09 X10^3/uL; Eosinophils% 3.6 % (0-5); Hematocrit 29.4 % (37-47); Hemoglobin 9.5 g/dl (12.0-15.0); Lymphocyte # 0.86 X10^3/ul (4.0); Lymphocyte % 34.1 % (19-41); Mean Corp Hgb Conc 32.3 g/gl (32-36); Mean Corpuscular Hgb 30.1 pg (27.0-32.0); Mean Platelet Vol. 9.9 fl (6.2-12.0); Monocyte# 0.24 X10^3/uL; Monocyte% 9.5 % (0-10); Neutrophil # 1.32 X10^3/uL (2.7-7.7); Neutrophil % 52.4 % (47-70); Platelet Count 105 K/mm3 (150-450); RBC Distribution Width CV 14.1 % (11.6-14.6); RBC Distribution Width SD 47.9 fl (35.1-43.9); Red Blood Count 3.16 M/mm3 (4.2-5.4); White Blood Count 2.5 K/mm3 (4.4-11.0)
[2018-10-07 06:37] LABS: POSITIVE COUNT NO; POSITIVE DIFFERENTIAL NO; POSITIVE MORPHOLOGY NO
[2018-10-07 06:52] LABS: Anion Gap 10 (5-15); BUN 12 mg/dL (7-18); BUN/Creat Ratio 14.5 RATIO (10-20); Calcium,Total 8.5 mg/dL (8.5-10.1); Chloride 108 mmol/L (98-107); Creatinine, Serum 0.83 mg/dL (0.55-1.02); EST Glomerular Filtration Rate 71 mL/min (>60); Est Glom Filt Rate - Afr Amer 85 mL/min (>60); Estimated Creatinine Clearance 53.45 ml/min; Glucose 94 mg/dL (74-106); Potassium 3.6 mmol/L (3.5-5.1); Sodium Level 143 mmol/L (136-145); T4 Free Direct 1.12 ng/dL (0.76-1.46)
[2018-10-07 06:56] LABS: Bedside Glucose 102 mg/dL (70-110)
[2018-10-07 08:18] LABS: BNP,B-Type NATRIURETIC PEPTIDE 156.5 pg/mL (0-100)
[2018-10-07] MEDS: Folic Acid 1 MG Tablet PO (08:48)
[2018-10-07] MEDS: Ascorbic Acid 500 MG Tablet PO (08:48)
[2018-10-07] MEDS: Multivitamins,Therapeutic Tablet 1 TABLET PO (08:48)
[2018-10-07] MEDS: Aspirin 81 MG TAB.CHEW PO (08:48)
[2018-10-07] MEDS: TICAGRELOR 90 MG TABLET PO (08:54)
[2018-10-07] MEDS: Furosemide 40 MG Tablet PO (08:55)
[2018-10-07] MEDS: guaiFENesin 1,200 MG Tablet 1200 MG PO (08:55)
[2018-10-07] MEDS: Carvedilol 6.25 MG Tablet PO (08:55)
[2018-10-07] MEDS: Doxycycline 100 MG CAPSULE PO (08:55)
[2018-10-07] MEDS: Losartan Potassium 50 MG Tablet PO (08:55)
[2018-10-07] MEDS: Famotidine 20 MG Tablet PO (08:55)
[2018-10-07] MEDS: Isosorbide Mononitrate 60 MG Tablet PO (08:57)
[2018-10-07] MEDS: Enoxaparin 40 MG/0.4 ML Syringe SC (08:57)
[2018-10-07] MEDS: Fluticasone 0.05% 1 SPRAY NASAL.SRY 2 SPRAY NASAL (09:10)
[2018-10-07] MEDS: Ranolazine 500 MG Tablet 1000 MG PO (09:10)
[2018-10-07] MEDS: Ceftriaxone 1 GM/50 ML BAG IV (09:11)
[2018-10-07] MEDS: Insulin Lispro 100 UNIT/ML INSULN.PEN 8 UNIT SC ×2 (09:11→12:06)
[2018-10-07] MEDS: Polyethylene Glycol 3350 17 GM PACKET PO (09:19)
[2018-10-07] MEDS: 0.9% NaCl Peripheral Flush Adult/Peds IV (09:23)
[2018-10-07 12:15] LABS: Bedside Glucose 176 mg/dL (70-110)
--- NOTE | 2018-10-07 12:24 | DCINST_ITS ---
- Discharge Diagnoses Current Active Problems: Current Active and Chronic Problems (Last Reviewed 09/16/18 @ 11:02 by Zoila Piedra) URI (Acute) Atypical chest pain (Acute) Reason(s) for Visit for Discharge Instructions: Cough, Shortness of breath You will use the following diet at home:: Calorie/Carbohydrate Controlled (specify 1200, 1400, etc), Cardiac Your food should be the consistency of: Regular Your liquids should be the consistency of: Regular/Thin Discharge Activity: Return to Normal Activity Additional Instructions: Complete your antibiotics and prednisone. Continue to use your inhaler as needed for shortness of breath, wheezing or coughing spells. Follow-up with your primary care doctor within 1-2 weeks Allergies/Adverse Reactions: Allergies atorvastatin calcium [From Lipitor] Adverse Reaction (Verified 09/16/18 10:57) Unknown rosiglitazone maleate [From Avandia] Adverse Reaction (Verified 09/16/18 10:57) Other Medications to take at Discharge Aspirin [Aspirin, Baby] 81 mg PO DAILY@0800 06/30/17 Nitroglycerin [Nitrostat] 0.4 mg SL PRN PRN 06/30/17 Multivitamins,Therapeutic [Multivitamin] 1 tab PO DAILY 02/01/18 tramadol 50 mg tablet 50 mg PO Q6H PRN 04/30/18 Levothyroxine Sodium [Synthroid] 100 mcg PO DAILY 06/21/18 ascorbic acid (vitamin C) 500 mg tablet 500 mg PO DAILY 09/13/18 benzonatate 100 mg capsule 100 mg PO TID PRN 09/13/18 fluticasone 50 mcg/actuation nasal spray,suspension 2 spray INTRANASAL DAILY 09/13/18 folic acid 1 mg tablet 1 mg PO DAILY 09/13/18 insulin U- 100 regular human 100 unit/mL injection solution 8 unit SC TID ml 09/13/18 insulin glargine (U-300) conc. 300 unit/mL (3 mL) subcutaneous pen 30 unit SC DAILY 09/13/18 cholecalciferol (vitamin D3) 1,000 unit capsule 2,000 unit PO DAILY cap 09/16/18 amlodipine 2.5 mg tablet 2.5 mg PO DAILY #30 tab 10/03/18 carvedilol 6.25 mg tablet 6.25 mg PO BID #60 tab 10/03/18 furosemide 40 mg tablet 40 mg PO BID #60 tab 10/03/18 isosorbide mononitrate ER 60 mg tablet,extended release 24 hr 60 mg PO DAILY #30 tab 10/03/18 losartan 50 mg tablet 50 mg PO DAILY #30 tab 10/03/18 pravastatin 80 mg tablet 80 mg PO DAILY #30 tab 10/03/18 ranolazine ER 1,000 mg tablet,extended release,12 hr 1,000 mg PO BID #60 tab 10/03/18 ticagrelor 90 mg tablet 90 mg PO BID #60 tab 10/03/18 Albuterol Inhaler [Ventolin Hfa] 2 puff INHALATION PRN PRN #1 inhaler 10/07/18 Amox/Clavulanate Tablet [Augmentin Tablet] 875 mg PO Q12H #14 tablet 10/07/18 Guaifenesin [Mucinex] 1,200 mg PO BID #20 tablet 10/07/18 Prednisone 40 mg PO DAILY #10 tablet 10/07/18 The following prescriptions were given: Albuterol Inhaler [Ventolin Hfa] 2 puff INHALATION PRN PRN #1 inhaler PRN Reason: Shortness Of Breath Amox/Clavulanate Tablet [Augmentin Tablet] 875 mg PO Q12H #14 tablet Prednisone 40 mg PO DAILY #10 tablet Guaifenesin [Mucinex] 1,200 mg PO BID #20 tablet Primary Care Physician: Diana Cohen MD [Primary Care Provider] - Please follow up with your Primary Care Physician in: within 1-2 weeks Test Results: Test results from this visit will be discussed in further detail at your follow- up appointment, if applicable. Proposed Discharge Date: 10/07/18
--- NOTE | 2018-10-07 12:32 | DS.PCM_ITS ---
Discharge Date and Diagnosis Date of Admission: 10/06/18 Date of Discharge: 10/07/18 - Primary Discharge Diagnosis Active and Suspected Problems (Last Reviewed 09/16/18 @ 11:02 by Zoila Piedra) URI (Acute) Atypical chest pain (Acute) Community-acquired pneumonia Hypokalemia Indeterminate troponins - Secondary Discharge Diagnosis Chronic Problems (Last Reviewed 09/16/18 @ 11:02 by Zoila Piedra) Non-rheumatic mitral regurgitation (Chronic) Nonrheumatic tricuspid valve regurgitation (Chronic) Essential hypertension (Chronic) Thrombocytopenia (Chronic) CAD (coronary artery disease) (Chronic) History of spinal fusion (Chronic) anterior Non-rheumatic aortic stenosis (Chronic) History of coronary artery stent placement (Chronic) PTCA-ostail/prox LCx @ [facility] 11/09/2017 PTCA-Cutting Balloon Atherectomy w/ placement of 2.5 x 20 mm Synergy Stent, Distal LM-into the Ostium of LAD Stented w/ 4.0 x 16 mm Synergy Stent 06/2017PTCA- 04/2017 PCI-LAD with a 2.75x38 Promus Premier drug eluting stent. 12/15/13 RAYMON of Right Posterior Lateral (Mid) wIth 3.0 x 2.8 Cypher, followed upstream with 3.0 x 8 Cypher, RAYMON of Right PDA (Ostial) with 25 x 28 Cypher 09/17/2007 Chronic systolic (congestive) heart failure (Chronic) Schizophrenia (Chronic) S/P PTCA (percutaneous transluminal coronary angioplasty) (Chronic ~11/09/17) PCI of ostial and mid LCX in-stent restenosis with laser atherectomy, balloon angioplasty per Dr. Rodriguez [facility] 08/20/18 PCI PTCA and laser atherectomy of proximal Circumflex 02/03/2018 PTCA-ostial/prox LCx @ [facility] 11/09/2017 PTCA-Cutting Balloon Atherectomy w/ placement of 2.5 x 20 mm Synergy Stent, Distal LM-into the Ostium of LAD Stented w/ 4.0 x 16 mm Synergy Stent 06/2017PTCA-OM 04/2017 PCI-LAD with a 2.75x38 Promus Premier drug eluting stent. 12/15/13 RAYMON of Right Posterior Lateral (Mid) wIth 3.0 x 2.8 Cypher, followed upstream with 3.0 x 8 Cypher, RAYMON of Right PDA (Ostial) with 25 x 28 Cypher 09/17/2007 History of coronary artery stent placement (Chronic) Atherosclerotic heart disease [place] coronary artery w/angina pectoris (Chronic) PCI of ostial and mid LCX in-stent restenosis with laser atherectomy, balloon angioplasty per Dr. Rodriguez [facility] 08/20/18 PCI PTCA and laser atherectomy of proximal Circumflex 02/03/2018 PTCA-ostail/prox LCx @ [facility] 11/09/2017 PTCA-Cutting Balloon Atherectomy w/ placement of 2.5 x 20 mm Synergy Stent, Distal LM-into the Ostium of LAD Stented w/ 4.0 x 16 mm Synergy Stent 06/2017PTCA-OM 04/2017 PCI-LAD with a 2.75x38 Promus Premier drug eluting stent. 12/15/13 RAYMON of Right Posterior Lateral (Mid) wIth 3.0 x 2.8 Cypher, followed upstream with 3.0 x 8 Cypher, RAYMON of Right PDA (Ostial) with 25 x 28 Cypher 09/17/2007 Pancytopenia (Chronic) Hypothyroidism (Chronic) Hyperlipidemia (Chronic) Diabetes mellitus, type II (Chronic) Venous insufficiency (Chronic) NSTEMI (non-ST elevated myocardial infarction) (Chronic ~09/16/17) Intermittent claudication (Chronic) Obesity (BMI 30.0-34.9) (Chronic) Hospital Course and Treatment Imaging Results: Clinical Impression(s) from Imaging Studies Chest X-Ray 10/06/18 09:18 IMPRESSION: Degenerative changes, as described above. No demonstrated acute cardiopulmonary process. Electronically Signed: Manny Lopez MD at 9:49 EST , Service support , Chest CTA 10/06/18 10:08 IMPRESSION: CTA chest examination, without a demonstrated pulmonary embolism or arterial dissection. Right upper lung infiltrate or edema. Electronically Signed: Manny Lopez MD at 11:33 EST , Service support , None Operations: None Procedures: None Summary of Care Provided: The patient is a 78 year old female with multiple comorbidities including CAD status post stents, type II DM, heart failure with preserved EF, hypothyroidism, schizophrenia who comes in with complaints of sore throat, postnasal drip, subjective chills, generalized muscle weakness ongoing for about 2 weeks. Patient admitted to an on and off cough ongoing for more than 3 months. She had shortness of breath with exertion. She was seen in the emergency department, found to be hypokalemic, with potassium 3.3 which was replaced, troponins was mildly elevated. Chest x-ray did not show any acute process. D-dimer was elevated. CT of the chest did not show any PE but showed right upper lung infiltrate. Patient was admitted to the telemetry bed, patient panel showed human meta pneumo virus. She was started on IV ceftriaxone and azithromycin. Continue to improve and was much better the next day. She had an appointment with pain management Dr. Jiménez to adjust her pain pump. She was discharged on Augmentin to complete 1 week. She also received a prednisone taper. She did not qualify for oxygen on ambulation Subjective: On the day of discharge, patient denied any new complaints. She was found dressed in sitting the chair. She had an 8:30 appointment with pain management, Dr. Jiménez - Physical Exam General: Alert, Oriented x3, Cooperative, No apparent distress HEENT: Atraumatic, PERRLA, EOMI, Normocephalic Oral: Moist Mucosa Neck: Supple Lungs: Clear to auscultation, Normal air movement Cardiovascular: Regular rate, Regular Rhythm, Normal S1, Normal S2, No murmurs Abdomen: Bowel Sounds Present, Soft, Non Tender, Non-Distended, No Hepato- splenomegaly Extremities: No edema Skin: No rashes, No breakdown Musculoskeletal: No Tenderness to Palpation of Joints or Extremities Lymphatic: No Cervical, Supraclavicular, or Inguinal Adenopathy Neurological: Cranial nerves II-XII grossly intact, Neuro grossly intact Psych/Mental Status: Normal Affect, Appropriate Vital Signs Temp Pulse Resp BP Pulse Ox 98.5 F 62 18 127/63 H 97 10/07/18 08:52 10/07/18 11:01 10/07/18 08:52 10/07/18 08:52 10/07/18 08:52 Oxygen Delivery Method Room Air Weight: 86.3 kg Body Mass Index (BMI) 29.7 Finger Stick Blood Glucose 270 Intake and Output for Last 24 Hours 10/05/18 10/06/18 10/07/18 23:59 23:59 23:59 Intake Total 1231 / 1231 Output Total 1100 / 1100 Balance 131 / 131 Microbiology Past 72 Hours 10/06/18 15:25 Respiratory Panel (PCR) - Final Mucosa - Nasopharyngeal Human [place] 10/06/18 19:00 Streptococcus pneumoniae Antigen (M - Final Urine, Clean Catch 10/06/18 19:00 Legionella Antigen - Final Urine, Clean Catch Laboratory Tests Past 24 Hrs 10/06/18 10/06/18 10/06/18 14:45 17:53 19:00 WBC RBC Hgb Hct MCV MCH MCHC RDW RDW Differential Plt Count MPV Immature Gran % (Auto) Neut % (Auto) Lymph % (Auto) [place] % (Auto) Eos % (Auto) Baso % (Auto) Absolute Neuts (auto) Absolute Lymphs (auto) Total Counted Sodium Potassium Chloride Carbon Dioxide Anion Gap BUN Creatinine Estim Creat Clear Calc Est GFR (MDRD) Af Amer Est GFR (MDRD) Non-Af BUN/Creatinine Ratio Glucose Calcium Troponin I 0.069 H 0.069 H B-Natriuretic Peptide TSH Free T4 Urine Color Yellow Urine Clarity Clear Urine pH 7.0 Ur Specific [place] 1.005 Urine Protein Negative Urine Glucose (UA) Normal Urine Ketones Negative Urine Occult Blood Negative Urine Nitrite Negative Urine Bilirubin Negative Urine Urobilinogen Normal Ur Leukocyte Esterase Negative 10/06/18 10/07/18 10/07/18 20:40 06:00 06:00 WBC 2.5 L RBC 3.16 L Hgb 9.5 L Hct 29.4 L MCV 93.0 MCH 30.1 MCHC 32.3 RDW 14.1 RDW Differential 47.9 H Plt Count 105 L MPV 9.9 Immature Gran % (Auto) 0.000 Neut % (Auto) 52.4 Lymph % (Auto) 34.1 [place] % (Auto) 9.5 Eos % (Auto) 3.6 Baso % (Auto) 0.4 Absolute Neuts (auto) 1.3 L Absolute Lymphs (auto) 0.86 Total Counted Not Reportable Sodium 143 Potassium 3.6 Chloride 108 H Carbon Dioxide 25.0 Anion Gap 10 BUN 12 Creatinine 0.83 Estim Creat Clear Calc 53.45 Est GFR (MDRD) Af Amer 85 Est GFR (MDRD) Non-Af 71 BUN/Creatinine Ratio 14.5 Glucose 94 Calcium 8.5 Troponin I 0.074 H B-Natriuretic Peptide TSH 1.50 Free T4 1.12 Urine Color Urine Clarity Urine pH Ur Specific [place] Urine Protein Urine Glucose (UA) Urine Ketones Urine Occult Blood Urine Nitrite Urine Bilirubin Urine Urobilinogen Ur Leukocyte Esterase 10/07/18 06:00 WBC RBC Hgb Hct MCV MCH MCHC RDW RDW Differential Plt Count MPV Immature Gran % (Auto) Neut % (Auto) Lymph % (Auto) [place] % (Auto) Eos % (Auto) Baso % (Auto) Absolute Neuts (auto) Absolute Lymphs (auto) Total Counted Sodium Potassium Chloride Carbon Dioxide Anion Gap BUN Creatinine Estim Creat Clear Calc Est GFR (MDRD) Af Amer Est GFR (MDRD) Non-Af BUN/Creatinine Ratio Glucose Calcium Troponin I B-Natriuretic Peptide 156.5 H TSH Free T4 Urine Color Urine Clarity Urine pH Ur Specific [place] Urine Protein Urine Glucose (UA) Urine Ketones Urine Occult Blood Urine Nitrite Urine Bilirubin Urine Urobilinogen Ur Leukocyte Esterase POC Glucose 10/07/18 10/07/18 10/06/18 12:04 06:52 23:07 POC Glucose 176 H 102 161 H 10/06/18 15:45 POC Glucose 76 Discharge Diet: No Restrictions Discharge Activity: Return to Normal Activity Home Medications: Medications to take at Discharge Aspirin [Aspirin, Baby] 81 mg PO DAILY@0800 06/30/17 Nitroglycerin [Nitrostat] 0.4 mg SL PRN PRN 06/30/17 Multivitamins,Therapeutic [Multivitamin] 1 tab PO DAILY 02/01/18 tramadol 50 mg tablet 50 mg PO Q6H PRN 04/30/18 Levothyroxine Sodium [Synthroid] 100 mcg PO DAILY 06/21/18 ascorbic acid (vitamin C) 500 mg tablet 500 mg PO DAILY 09/13/18 benzonatate 100 mg capsule 100 mg PO TID PRN 09/13/18 fluticasone 50 mcg/actuation nasal spray,suspension 2 spray INTRANASAL DAILY 09/13/18 folic acid 1 mg tablet 1 mg PO DAILY 09/13/18 insulin U- 100 regular human 100 unit/mL injection solution 8 unit SC TID ml 09/13/18 insulin glargine (U-300) conc. 300 unit/mL (3 mL) subcutaneous pen 30 unit SC DAILY 09/13/18 cholecalciferol (vitamin D3) 1,000 unit capsule 2,000 unit PO DAILY cap 09/16/18 amlodipine 2.5 mg tablet 2.5 mg PO DAILY #30 tab 10/03/18 carvedilol 6.25 mg tablet 6.25 mg PO BID #60 tab 10/03/18 furosemide 40 mg tablet 40 mg PO BID #60 tab 10/03/18 isosorbide mononitrate ER 60 mg tablet,extended release 24 hr 60 mg PO DAILY #30 tab 10/03/18 losartan 50 mg tablet 50 mg PO DAILY #30 tab 10/03/18 pravastatin 80 mg tablet 80 mg PO DAILY #30 tab 10/03/18 ranolazine ER 1,000 mg tablet,extended release,12 hr 1,000 mg PO BID #60 tab 10/03/18 ticagrelor 90 mg tablet 90 mg PO BID #60 tab 10/03/18 Albuterol Inhaler [Ventolin Hfa] 2 puff INHALATION PRN PRN #1 inhaler 10/07/18 Amox/Clavulanate Tablet [Augmentin Tablet] 875 mg PO Q12H #14 tablet 10/07/18 Guaifenesin [Mucinex] 1,200 mg PO BID #20 tablet 10/07/18 Prednisone 40 mg PO DAILY #10 tablet 10/07/18 Following Prescrptions Were Given to Patient: Albuterol Inhaler [Ventolin Hfa] 2 puff INHALATION PRN PRN #1 inhaler PRN Reason: Shortness Of Breath Amox/Clavulanate Tablet [Augmentin Tablet] 875 mg PO Q12H #14 tablet Prednisone 40 mg PO DAILY #10 tablet Guaifenesin [Mucinex] 1,200 mg PO BID #20 tablet Primary Care Physician: Diana Cohen MD [Primary Care Provider] - Please follow up with your Primary Care Physician in: within 1-2 weeks Disposition: Home Minutes spent on discharge:: 40 Patient Condition:: Stable Medical Necessity - Tobacco Use Smoking Status: Never smoker Tobacco Use: Non-smoker Meaningful Use Info Meaningful Use Diagnoses (Choose all that apply): None applicable Code Visit Inpatient E&M: 26080 Disch Hosp OBSV E&M: 09479 Observation care discharge
[2018-10-07] MEDS: Benzonatate 100 MG Capsule PO (15:15)
[2018-10-07] MEDS: traMADol 50 MG Tablet PO (15:16)
--- NOTE | 2018-10-08 13:29 | PCM.DC.SUM ---
Discharge Date and Diagnosis Date of Admission: 10/06/18 Date of Discharge: 10/07/18 - Primary Discharge Diagnosis URI (Acute) Atypical chest pain (Acute) Community-acquired pneumonia Hypokalemia Indeterminate troponins - Secondary Discharge Diagnosis Chronic Problems (Last Reviewed 09/16/18 @ 11:02 by Zoila Piedra) Non-rheumatic mitral regurgitation (Chronic) Nonrheumatic tricuspid valve regurgitation (Chronic) Essential hypertension (Chronic) Thrombocytopenia (Chronic) CAD (coronary artery disease) (Chronic) History of spinal fusion (Chronic) anterior Non-rheumatic aortic stenosis (Chronic) History of coronary artery stent placement (Chronic) PTCA-ostail/prox LCx @ [facility] 11/09/2017 PTCA-Cutting Balloon Atherectomy w/ placement of 2.5 x 20 mm Synergy Stent, Distal LM-into the Ostium of LAD Stented w/ 4.0 x 16 mm Synergy Stent 06/2017PTCA-OM 04/2017 PCI-LAD with a 2.75x38 Promus Premier drug eluting stent. 12/15/13 RAYMON of Right Posterior Lateral (Mid) wIth 3.0 x 2.8 Cypher, followed upstream with 3.0 x 8 Cypher, RAYMON of Right PDA (Ostial) with 25 x 28 Cypher 09/17/2007 Chronic systolic (congestive) heart failure (Chronic) Schizophrenia (Chronic) S/P PTCA (percutaneous transluminal coronary angioplasty) (Chronic ~11/09/17) PCI of ostial and mid LCX in-stent restenosis with laser atherectomy, balloon angioplasty per Dr. Rodriguez [facility] 08/20/18 PCI PTCA and laser atherectomy of proximal Circumflex 02/03/2018 PTCA-ostial/prox LCx @ [facility] 11/09/2017 PTCA-Cutting Balloon Atherectomy w/ placement of 2.5 x 20 mm Synergy Stent, Distal LM-into the Ostium of LAD Stented w/ 4.0 x 16 mm Synergy Stent 06/2017PTCA-OM 04/2017 PCI-LAD with a 2.75x38 Promus Premier drug eluting stent. 12/15/13 RAYMON of Right Posterior Lateral (Mid) wIth 3.0 x 2.8 Cypher, followed upstream with 3.0 x 8 Cypher, RAYMON of Right PDA (Ostial) with 25 x 28 Cypher 09/17/2007 History of coronary artery stent placement (Chronic) Atherosclerotic heart disease [place] coronary artery w/angina pectoris (Chronic) PCI of ostial and mid LCX in-stent restenosis with laser atherectomy, balloon angioplasty per Dr. Rodriguez [facility] 08/20/18 PCI PTCA and laser atherectomy of proximal Circumflex 02/03/2018 PTCA-ostail/prox LCx @ [facility] 11/09/2017 PTCA-Cutting Balloon Atherectomy w/ placement of 2.5 x 20 mm Synergy Stent, Distal LM-into the Ostium of LAD Stented w/ 4.0 x 16 mm Synergy Stent 06/2017PTCA-OM 04/2017 PCI-LAD with a 2.75x38 Promus Premier drug eluting stent. 12/15/13 RAYMON of Right Posterior Lateral (Mid) wIth 3.0 x 2.8 Cypher, followed upstream with 3.0 x 8 Cypher, RAYMON of Right PDA (Ostial) with 25 x 28 Cypher 09/17/2007 Pancytopenia (Chronic) Hypothyroidism (Chronic) Hyperlipidemia (Chronic) Diabetes mellitus, type II (Chronic) Venous insufficiency (Chronic) NSTEMI (non-ST elevated myocardial infarction) (Chronic ~09/16/17) Intermittent claudication (Chronic) Obesity (BMI 30.0-34.9) (Chronic) Hospital Course and Treatment Imaging Results: Clinical Impression(s) from Imaging Studies Chest X-Ray 10/06/18 09:18 IMPRESSION: Degenerative changes, as described above. No demonstrated acute cardiopulmonary process. Electronically Signed: Manny Lopez MD at 9:49 EST , Service support , Chest CTA 10/06/18 10:08 IMPRESSION: CTA chest examination, without a demonstrated pulmonary embolism or arterial dissection. Right upper lung infiltrate or edema. Electronically Signed: Manny Lopez MD at 11:33 EST , Service support , None Operations: None Procedures: None Summary of Care Provided: The patient is a 78 year old female with multiple comorbidities including CAD status post stents, type II DM, heart failure with preserved EF, hypothyroidism, schizophrenia who comes in with complaints of sore throat, postnasal drip, subjective chills, generalized muscle weakness ongoing for about 2 weeks. Patient admitted to an on and off cough ongoing for more than 3 months. She had shortness of breath with exertion. She was seen in the emergency department, found to be hypokalemic, with potassium 3.3 which was replaced, troponins was mildly elevated. Chest x-ray did not show any acute process. D-dimer was elevated. CT of the chest did not show any PE but showed right upper lung infiltrate. Patient was admitted to the telemetry bed, patient panel showed human meta pneumo virus. She was started on IV ceftriaxone and azithromycin. Continue to improve and was much better the next day. She was discharged on Augmentin to complete 1 week. She also received a prednisone taper. She did not qualify for oxygen on ambulation Subjective: On the day of discharge, patient felt improved. She had no complains. Denied fever or chills. Objective: Physical Exam General: Alert, Oriented x3, Cooperative, No apparent distress HEENT: Atraumatic, PERRLA, EOMI, Normocephalic Oral: Moist Mucosa Neck: Supple Lungs: Clear to auscultation, Normal air movement Cardiovascular: Regular rate, Regular Rhythm, Normal S1, Normal S2, No murmurs Abdomen: Bowel Sounds Present, Soft, Non Tender, Non-Distended, No Hepato-splenomegaly Extremities: No edema Skin: No rashes, No breakdown Musculoskeletal: No Tenderness to Palpation of Joints or Extremities Lymphatic: No Cervical, Supraclavicular, or Inguinal Adenopathy Neurological: Cranial nerves II-XII grossly intact, Neuro grossly intact Psych/Mental Status: Normal Affect, Appropriate - Physical Exam Vital Signs Temp Pulse Resp BP Pulse Ox 97.9 F 67 15 122/59 H 97 10/07/18 15:19 10/07/18 15:19 10/07/18 15:19 10/07/18 15:19 10/07/18 15:19 Oxygen Delivery Method Room Air Weight: 86.3 kg Body Mass Index (BMI) 29.7 Finger Stick Blood Glucose 270 Intake and Output for Last 24 Hours 10/06/18 10/07/18 10/08/18 23:59 23:59 23:59 Intake Total 1851 / 1851 Output Total 1100 / 1100 Balance 751 / 751 Microbiology Past 72 Hours 10/06/18 15:25 Respiratory Panel (PCR) - Final Mucosa - Nasopharyngeal Human [place] 10/06/18 19:00 Streptococcus pneumoniae Antigen (M - Final Urine, Clean Catch 10/06/18 19:00 Legionella Antigen - Final Urine, Clean Catch Discharge Diet: No Restrictions Discharge Activity: Return to Normal Activity Home Medications: Medications to take at Discharge Aspirin [Aspirin, Baby] 81 mg PO DAILY@0800 06/30/17 Nitroglycerin [Nitrostat] 0.4 mg SL PRN PRN 06/30/17 Multivitamins,Therapeutic [Multivitamin] 1 tab PO DAILY 02/01/18 tramadol 50 mg tablet 50 mg PO Q6H PRN 04/30/18 Levothyroxine Sodium [Synthroid] 100 mcg PO DAILY 06/21/18 ascorbic acid (vitamin C) 500 mg tablet 500 mg PO DAILY 09/13/18 benzonatate 100 mg capsule 100 mg PO TID PRN 09/13/18 fluticasone 50 mcg/actuation nasal spray,suspension 2 spray INTRANASAL DAILY 09/13/18 folic acid 1 mg tablet 1 mg PO DAILY 09/13/18 insulin U- 100 regular human 100 unit/mL injection solution 8 unit SC TID ml 09/13/18 insulin glargine (U-300) conc. 300 unit/mL (3 mL) subcutaneous pen 30 unit SC DAILY 09/13/18 cholecalciferol (vitamin D3) 1,000 unit capsule 2,000 unit PO DAILY cap 09/16/18 amlodipine 2.5 mg tablet 2.5 mg PO DAILY #30 tab 10/03/18 carvedilol 6.25 mg tablet 6.25 mg PO BID #60 tab 10/03/18 furosemide 40 mg tablet 40 mg PO BID #60 tab 10/03/18 isosorbide mononitrate ER 60 mg tablet,extended release 24 hr 60 mg PO DAILY #30 tab 10/03/18 losartan 50 mg tablet 50 mg PO DAILY #30 tab 10/03/18 pravastatin 80 mg tablet 80 mg PO DAILY #30 tab 10/03/18 ranolazine ER 1,000 mg tablet,extended release,12 hr 1,000 mg PO BID #60 tab 10/03/18 ticagrelor 90 mg tablet 90 mg PO BID #60 tab 10/03/18 Albuterol Inhaler [Ventolin Hfa] 2 puff INHALATION PRN PRN #1 inhaler 10/07/18 Amox/Clavulanate Tablet [Augmentin Tablet] 875 mg PO Q12H #14 tablet 10/07/18 Guaifenesin [Mucinex] 1,200 mg PO BID #20 tablet 10/07/18 Prednisone 40 mg PO DAILY #10 tablet 10/07/18 Following Prescrptions Were Given to Patient: Albuterol Inhaler [Ventolin Hfa] 2 puff INHALATION PRN PRN #1 inhaler PRN Reason: Shortness Of Breath Amox/Clavulanate Tablet [Augmentin Tablet] 875 mg PO Q12H #14 tablet Prednisone 40 mg PO DAILY #10 tablet Guaifenesin [Mucinex] 1,200 mg PO BID #20 tablet Primary Care Physician: Diana Cohen MD [Primary Care Provider] - Please follow up with your Primary Care Physician in: within 1-2 weeks Disposition: Home Minutes spent on discharge:: 40 Patient Condition:: Stable Medical Necessity - Tobacco Use Smoking Status: Never smoker Tobacco Use: Non-smoker Meaningful Use Info Meaningful Use Diagnoses (Choose all that apply): None applicable Code Visit Inpatient E&M: 60987 Disch Hosp
--- NOTE | 2018-10-08 13:33 | DS.PCM_ITS ---
Discharge Date and Diagnosis Date of Admission: 10/06/18 Date of Discharge: 10/07/18 - Primary Discharge Diagnosis URI (Acute) Atypical chest pain (Acute) Community-acquired pneumonia Hypokalemia Indeterminate troponins - Secondary Discharge Diagnosis Chronic Problems (Last Reviewed 09/16/18 @ 11:02 by Zoila Piedra) Non-rheumatic mitral regurgitation (Chronic) Nonrheumatic tricuspid valve regurgitation (Chronic) Essential hypertension (Chronic) Thrombocytopenia (Chronic) CAD (coronary artery disease) (Chronic) History of spinal fusion (Chronic) anterior Non-rheumatic aortic stenosis (Chronic) History of coronary artery stent placement (Chronic) PTCA-ostail/prox LCx @ [facility] 11/09/2017 PTCA-Cutting Balloon Atherectomy w/ placement of 2.5 x 20 mm Synergy Stent, Distal LM-into the Ostium of LAD Stented w/ 4.0 x 16 mm Synergy Stent 06/2017PTCA-OM 04/2017 PCI-LAD with a 2.75x38 Promus Premier drug eluting stent. 12/15/13 RAYMON of Right Posterior Lateral (Mid) wIth 3.0 x 2.8 Cypher, followed upstream with 3.0 x 8 Cypher, RAYMON of Right PDA (Ostial) with 25 x 28 Cypher 09/17/2007 Chronic systolic (congestive) heart failure (Chronic) Schizophrenia (Chronic) S/P PTCA (percutaneous transluminal coronary angioplasty) (Chronic ~11/09/17) PCI of ostial and mid LCX in-stent restenosis with laser atherectomy, balloon angioplasty per Dr. Rodriguez [facility] 08/20/18 PCI PTCA and laser atherectomy of proximal Circumflex 02/03/2018 PTCA-ostial/prox LCx @ [facility] 11/09/2017 PTCA-Cutting Balloon Atherectomy w/ placement of 2.5 x 20 mm Synergy Stent, Distal LM-into the Ostium of LAD Stented w/ 4.0 x 16 mm Synergy Stent 06/2017PTCA-OM 04/2017 PCI-LAD with a 2.75x38 Promus Premier drug eluting stent. 12/15/13 RAYMON of Right Posterior Lateral (Mid) wIth 3.0 x 2.8 Cypher, followed upstream with 3.0 x 8 Cypher, RAYMON of Right PDA (Ostial) with 25 x 28 Cypher 09/17/2007 History of coronary artery stent placement (Chronic) Atherosclerotic heart disease rincon coronary artery w/angina pectoris (Chronic) PCI of ostial and mid LCX in-stent restenosis with laser atherectomy, balloon angioplasty per Dr. Rodriguez [facility] 08/20/18 PCI PTCA and laser atherectomy of proximal Circumflex 02/03/2018 PTCA-ostail/prox LCx @ [facility] 11/09/2017 PTCA-Cutting Balloon Atherectomy w/ placement of 2.5 x 20 mm Synergy Stent, Distal LM-into the Ostium of LAD Stented w/ 4.0 x 16 mm Synergy Stent 06/2017PTCA-OM 04/2017 PCI-LAD with a 2.75x38 Promus Premier drug eluting stent. 12/15/13 RAYMON of Right Posterior Lateral (Mid) wIth 3.0 x 2.8 Cypher, followed upstream with 3.0 x 8 Cypher, RAYMON of Right PDA (Ostial) with 25 x 28 Cypher 09/17/2007 Pancytopenia (Chronic) Hypothyroidism (Chronic) Hyperlipidemia (Chronic) Diabetes mellitus, type II (Chronic) Venous insufficiency (Chronic) NSTEMI (non-ST elevated myocardial infarction) (Chronic ~09/16/17) Intermittent claudication (Chronic) Obesity (BMI 30.0-34.9) (Chronic) Hospital Course and Treatment Imaging Results: Clinical Impression(s) from Imaging Studies Chest X-Ray 10/06/18 09:18 IMPRESSION: Degenerative changes, as described above. No demonstrated acute cardiopulmonary process. Electronically Signed: Manny Lopez MD at 9:49 EST , Service support , Chest CTA 10/06/18 10:08 IMPRESSION: CTA chest examination, without a demonstrated pulmonary embolism or arterial dissection. Right upper lung infiltrate or edema. Electronically Signed: Manny Lopez MD at 11:33 EST , Service support , None Operations: None Procedures: None Summary of Care Provided: The patient is a 78 year old female with multiple comorbidities including CAD status post stents, type II DM, heart failure with preserved EF, hypothyroidism, schizophrenia who comes in with complaints of sore throat, postnasal drip, subjective chills, generalized muscle weakness ongoing for about 2 weeks. Patient admitted to an on and off cough ongoing for more than 3 months. She had shortness of breath with exertion. She was seen in the emergency department, found to be hypokalemic, with potassium 3.3 which was replaced, troponins was mildly elevated. Chest x-ray did not show any acute process. D-dimer was elevated. CT of the chest did not show any PE but showed right upper lung infiltrate. Patient was admitted to the telemetry bed, patient panel showed human meta pneumo virus. She was started on IV ceftriaxone and azithromycin. Continue to improve and was much better the next day. She was discharged on Augmentin to complete 1 week. She also received a prednisone taper. She did not qualify for oxygen on ambulation Subjective: On the day of discharge, patient felt improved. She had no complains. Denied fever or chills. Objective: Physical Exam General: Alert, Oriented x3, Cooperative, No apparent distress HEENT: Atraumatic, PERRLA, EOMI, Normocephalic Oral: Moist Mucosa Neck: Supple Lungs: Clear to auscultation, Normal air movement Cardiovascular: Regular rate, Regular Rhythm, Normal S1, Normal S2, No murmurs Abdomen: Bowel Sounds Present, Soft, Non Tender, Non-Distended, No Hepato- splenomegaly Extremities: No edema Skin: No rashes, No breakdown Musculoskeletal: No Tenderness to Palpation of Joints or Extremities Lymphatic: No Cervical, Supraclavicular, or Inguinal Adenopathy Neurological: Cranial nerves II-XII grossly intact, Neuro grossly intact Psych/Mental Status: Normal Affect, Appropriate - Physical Exam Vital Signs Temp Pulse Resp BP Pulse Ox 97.9 F 67 15 122/59 H 97 10/07/18 15:19 10/07/18 15:19 10/07/18 15:19 10/07/18 15:19 10/07/18 15:19 Oxygen Delivery Method Room Air Weight: 86.3 kg Body Mass Index (BMI) 29.7 Finger Stick Blood Glucose 270 Intake and Output for Last 24 Hours 10/06/18 10/07/18 10/08/18 23:59 23:59 23:59 Intake Total 1851 / 1851 Output Total 1100 / 1100 Balance 751 / 751 Microbiology Past 72 Hours 10/06/18 15:25 Respiratory Panel (PCR) - Final Mucosa - Nasopharyngeal Human [place] 10/06/18 19:00 Streptococcus pneumoniae Antigen (M - Final Urine, Clean Catch 10/06/18 19:00 Legionella Antigen - Final Urine, Clean Catch Discharge Diet: No Restrictions Discharge Activity: Return to Normal Activity Home Medications: Medications to take at Discharge Aspirin [Aspirin, Baby] 81 mg PO DAILY@0800 06/30/17 Nitroglycerin [Nitrostat] 0.4 mg SL PRN PRN 06/30/17 Multivitamins,Therapeutic [Multivitamin] 1 tab PO DAILY 02/01/18 tramadol 50 mg tablet 50 mg PO Q6H PRN 04/30/18 Levothyroxine Sodium [Synthroid] 100 mcg PO DAILY 06/21/18 ascorbic acid (vitamin C) 500 mg tablet 500 mg PO DAILY 09/13/18 benzonatate 100 mg capsule 100 mg PO TID PRN 09/13/18 fluticasone 50 mcg/actuation nasal spray,suspension 2 spray INTRANASAL DAILY 09/13/18 folic acid 1 mg tablet 1 mg PO DAILY 09/13/18 insulin U- 100 regular human 100 unit/mL injection solution 8 unit SC TID ml 09/13/18 insulin glargine (U-300) conc. 300 unit/mL (3 mL) subcutaneous pen 30 unit SC DAILY 09/13/18 cholecalciferol (vitamin D3) 1,000 unit capsule 2,000 unit PO DAILY cap 09/16/18 amlodipine 2.5 mg tablet 2.5 mg PO DAILY #30 tab 10/03/18 carvedilol 6.25 mg tablet 6.25 mg PO BID #60 tab 10/03/18 furosemide 40 mg tablet 40 mg PO BID #60 tab 10/03/18 isosorbide mononitrate ER 60 mg tablet,extended release 24 hr 60 mg PO DAILY #30 tab 10/03/18 losartan 50 mg tablet 50 mg PO DAILY #30 tab 10/03/18 pravastatin 80 mg tablet 80 mg PO DAILY #30 tab 10/03/18 ranolazine ER 1,000 mg tablet,extended release,12 hr 1,000 mg PO BID #60 tab 10/03/18 ticagrelor 90 mg tablet 90 mg PO BID #60 tab 10/03/18 Albuterol Inhaler [Ventolin Hfa] 2 puff INHALATION PRN PRN #1 inhaler 10/07/18 Amox/Clavulanate Tablet [Augmentin Tablet] 875 mg PO Q12H #14 tablet 10/07/18 Guaifenesin [Mucinex] 1,200 mg PO BID #20 tablet 10/07/18 Prednisone 40 mg PO DAILY #10 tablet 10/07/18 Following Prescrptions Were Given to Patient: Albuterol Inhaler [Ventolin Hfa] 2 puff INHALATION PRN PRN #1 inhaler PRN Reason: Shortness Of Breath Amox/Clavulanate Tablet [Augmentin Tablet] 875 mg PO Q12H #14 tablet Prednisone 40 mg PO DAILY #10 tablet Guaifenesin [Mucinex] 1,200 mg PO BID #20 tablet Primary Care Physician: Diana Cohen MD [Primary Care Provider] - Please follow up with your Primary Care Physician in: within 1-2 weeks Disposition: Home Minutes spent on discharge:: 40 Patient Condition:: Stable Medical Necessity - Tobacco Use Smoking Status: Never smoker Tobacco Use: Non-smoker Meaningful Use Info Meaningful Use Diagnoses (Choose all that apply): None applicable Code Visit Inpatient E&M: 92009 Disch Hosp
== END 2018-10-07 14:16 | disposition home or self-care (01) ==
LOC: ED 10:22 → PCU 10-07 07:09
PROVIDERS: Admitting Provider Internal Medicine; Emergency Provider Emergency Medicine; Family Provider Internal Medicine; PCP Internal Medicine; Visit Provider Internal Medicine
DX: J18.9 Pneumonia, unspecified organism (principal); I25.10 Atherosclerotic heart disease of native coronary artery without angina pectoris; E11.9 Type 2 diabetes mellitus without complications; I11.0 Hypertensive heart disease with heart failure; I50.22 Chronic systolic (congestive) heart failure; F20.9 Schizophrenia, unspecified; E78.5 Hyperlipidemia, unspecified; I25.2 Old myocardial infarction; I87.2 Venous insufficiency (chronic) (peripheral); E87.6 Hypokalemia; N39.41 Urge incontinence; D61.818 Other pancytopenia; K75.81 Nonalcoholic steatohepatitis (NASH); E03.9 Hypothyroidism, unspecified; Z79.899 Other long term (current) drug therapy; Z79.82 Long term (current) use of aspirin; Z79.51 Long term (current) use of inhaled steroids; Z79.4 Long term (current) use of insulin; Z95.5 Presence of coronary angioplasty implant and graft; Z98.1 Arthrodesis status
CPT/HCPCS: 36415; 71045; 71275; 80048; 81002; 82962; 83880; 84439; 84443; 84484; 85025; 85379; 87449; 87633; 93005; 94640; 94667; 96361; 96365; 96366; 96367; 96372; 99218; 99285; J7030; J7040; J7050; Q9967; A4216; G0378

== ENCOUNTER → 2018-11-12 | Outpatient (CLI) | payer MEDICARE, MEDICAID, SELFPAY ==
[2018-10-06 14:38] VITALS: BMI 29.7
--- NOTE | 2018-11-12 11:22 | CDU_ITS ---
Reason For Study: stenosis Rt. Velocities/BP Lt. Velocities/BP Prox CCA 69.5/10.8 cm/sec. Prox CCA 91.3/10.2 cm/sec. Mid CCA 85.2/10.8 cm/sec. Mid CCA 81.4/10.2 cm/sec. Dist CCA 79.9/13.4 cm/sec. Dist CCA 72.8/10.2 cm/sec. Prox ICA 202.8/29.3 cm/sec. Prox ICA 95.5/11.5 cm/sec. Mid ICA 187.3/29.3 cm/sec. Mid ICA 82.7/20.6 cm/sec. Dist ICA 110.8/24.9 cm/sec. Dist ICA 75.4/17.0 cm/sec. Rt. ICA/CCA = 2.4. Lt. ICA/CCA = 1.2. Prox ECA 156.5 cm/sec. Prox ECA 137.5/6.0 cm/sec. Rt. Vert. 56.4/16.0 cm/sec. Lt. Vert. 42.1/9.1 cm/sec. Right Extracranial There is intimal thickening but no significant atherosclerotic plaque noted in the right common carotid artery. There is heterogeneous, irregular atherosclerotic plaque noted in the right internal carotid artery. There is heterogeneous, irregular atherosclerotic plaque noted in the right external carotid artery. Antegrade flow is noted in the right vertebral artery. Left Extracranial There is intimal thickening but no significant atherosclerotic plaque noted in the left common carotid artery. There is heterogeneous, irregular atherosclerotic plaque noted in the left internal carotid artery. There is intimal thickening but no significant atherosclerotic plaque noted in the left external carotid artery. Antegrade flow is noted in the left vertebral artery. Procedure Carotid Duplex [id number]. The exam was diagnostic. Exam performed in department. Interpretation Summary Moderate (50-69%) stenosis right extracranial internal carotid. Mild (<50%) stenosis left extracranial internal carotid. Flow within the vertebral arteries is antegrade bilaterally. Ordering Physician: Manfred Tom Performed By: Joshua Morris RVT
== END | disposition home or self-care (01) ==
PROVIDERS: Family Provider Internal Medicine; PCP Internal Medicine; Referring Provider Ophthalmology; Visit Provider Ophthalmology
DX: I25.10 Atherosclerotic heart disease of native coronary artery without angina pectoris (principal); H53.10 Unspecified subjective visual disturbances; E11.319 Type 2 diabetes mellitus with unspecified diabetic retinopathy without macular edema
CPT/HCPCS: 93880

== ENCOUNTER → 2018-12-19 10:40 | Outpatient (CLI) | payer MEDICARE, MEDICAID, SELFPAY ==
[2018-12-12 10:55] VITALS: BMI 30.7
[2018-12-19 11:33] LABS: Anion Gap 6 (5-15); BUN 18 mg/dL (7-18); BUN/Creat Ratio 19.5 RATIO (10-20); Calcium,Total 8.9 mg/dL (8.5-10.1); Chloride 104 mmol/L (98-107); Creatinine, Serum 0.92 mg/dL (0.55-1.02); EST Glomerular Filtration Rate 62 mL/min (>60); Est Glom Filt Rate - Afr Amer 75 mL/min (>60); Glucose 163 mg/dL (74-106); Potassium 3.8 mmol/L (3.5-5.1); Sodium Level 141 mmol/L (136-145)
== END ==
PROVIDERS: Family Provider Internal Medicine; PCP Internal Medicine; Referring Provider Internal Medicine Cardiovascular Disease; Visit Provider Internal Medicine Cardiovascular Disease
DX: I50.22 Chronic systolic (congestive) heart failure (principal)
CPT/HCPCS: 36415; 80048

== ENCOUNTER 2018-12-31 15:04 | Emergency (ER) | payer MEDICARE, MEDICAID, SELFPAY ==
[2018-12-19 11:04] VITALS: BMI 29.9
[2018-12-31 15:06] VITALS: BP 128/62; PULSE 65; PULSE 66; RESP 17; RESP 18; TEMP 36.9; O2SAT 97; O2SAT 98; BMI 29.5
--- NOTE | 2018-12-31 17:20 | EKG12_ITS ---
Test Reason : SOB Blood Pressure : / mmHG Vent. Rate : 058 BPM Atrial Rate : 058 BPM P-R Int : 176 ms QRS Dur : 094 ms QT Int : 488 ms P-R-T Axes : 050 -10 022 degrees QTc Int : 479 ms Sinus bradycardia Minimal voltage criteria for LVH, may be normal variant Nonspecific ST and T wave abnormality Prolonged QT Abnormal ECG Confirmed by PAOLO CUEVAS ([id number]), supervising film or videotape editor LAURIE MCCLELLAND ([id number]) on 01/02/2019 8:30:34 AM Referred By: EDILSON Confirmed By:PAOLO CUEVAS
--- NOTE | 2018-12-31 17:30 | RAD_ITS ---
STUDY: X-RAY CHEST REASON FOR EXAM: Female, 78 years old. CHEST PAIN, SOB, DIZZINESS TECHNIQUE: Single AP portable view of the chest. COMPARISON: 10/06/2018 FINDINGS: The lungs are clear and expanded. There is no demonstrated pleural abnormality. There are endovascular stent(s) present. Normal heart size. Normal mediastinum and rell. Normal visualized pulmonary arteries. Normal visualized aortic arch and descending thoracic aorta. There are diffuse degenerative changes of the visualized thoracic spine. There is degenerative osteoarthritis of the bilateral shoulders. There is no demonstrated abnormality of the visualized soft tissue structures of the upper abdomen. RAD/Chest 1 View (Portable) IMPRESSION: No change and no acute chest disease. Electronically Signed: Vishal Hsieh MD at 17:55 EDT , Service support ,
[2018-12-31 17:43] VITALS: O2SAT 99
[2018-12-31 17:52] VITALS: O2SAT 99
[2018-12-31 17:57] LABS: Absolute Lymphocyte Count 1.13 X10^3/ul (0.83-4.51); Absolute Neutrophil Count 1.8 X10^3/uL (2.0-7.7); Basophil# 0.01 X10^3/uL; Basophil% 0.3 % (0-1); Eosinophil# 0.09 X10^3/uL; Eosinophils% 2.8 % (0-5); Hematocrit 32.5 % (37-47); Hemoglobin 10.7 g/dl (12.0-15.0); Lymphocyte # 1.13 X10^3/ul (4.0); Lymphocyte % 35.2 % (19-41); Mean Corp Hgb Conc 32.9 g/gl (32-36); Mean Corpuscular Hgb 30.1 pg (27.0-32.0); Mean Corpuscular Volume 91.3 fL (81-99); Mean Platelet Vol. 9.7 fl (6.2-12.0); Monocyte# 0.23 X10^3/uL; Monocyte% 7.2 % (0-10); Neutrophil # 1.75 X10^3/uL (2.7-7.7); Neutrophil % 54.5 % (47-70); POSITIVE COUNT NO; POSITIVE DIFFERENTIAL NO; POSITIVE MORPHOLOGY NO; Platelet Count 127 K/mm3 (150-450); RBC Distribution Width CV 14.5 % (11.6-14.6); RBC Distribution Width SD 48.7 fl (35.1-43.9); Red Blood Count 3.56 M/mm3 (4.2-5.4); White Blood Count 3.2 K/mm3 (4.4-11.0)
[2018-12-31 18:34] LABS: Anion Gap 5 (5-15); BUN 21 mg/dL (7-18); BUN/Creat Ratio 20.4 RATIO (10-20); Chloride 96 mmol/L (98-107); Creatinine, Serum 1.03 mg/dL (0.55-1.02); EST Glomerular Filtration Rate 55 mL/min (>60); Est Glom Filt Rate - Afr Amer 66 mL/min (>60); Estimated Creatinine Clearance 41.46 ml/min; Glucose 177 mg/dL (74-106); Potassium 3.2 mmol/L (3.5-5.1); Sodium Level 137 mmol/L (136-145)
[2018-12-31 20:34] VITALS: BP 118/70; PULSE 65; RESP 14; O2SAT 98
--- NOTE | 2018-12-31 21:08 | ED.VISSUMM ---
- ER Visit Summary Date of Service: 12/31/18 Chief Complaint: Shortness of breath History of Present Illness: The patient is a 78 F history of cardiac stents, TIA, CAD, CHF insulin-dependent diabetes. Patient has a upcoming appointment with a gardener florist at [facility] in late January. She denies any chest pain. No recent travel or surgery. No recent hospitalization. Mild nonproductive cough. No fever. No hemoptysis. Physical Examination: Elderly female no acute distress. Vital signs are stable. Pulse ox 90% on room air no signs of hypoxia. HEENT exam unremarkable neck nontender no JVD lungs clear to auscultation bilaterally. Heart regular rate and rhythm no murmur rate about 60. Abdomen is soft and nontender normal bowel sounds no peritoneal signs. Extremities moves all 4. Calves nontender without edema or cords. Normal motor strength. Back nontender. Neurologically she is awake and alert with no focal motor deficits. Test Results: CBC shows a white count of 3. Hemoglobin of 10 with her baseline chronic anemia. Electrolytes unremarkable potassium 3.2 she is on potassium replacement at home. Normal creatinine and gap. Troponin is slightly elevated 0.069. She is not having chest pain. And her last troponin was 0.074. Is a history of chronic heart disease and has elevated troponins. EKG is a sinus rhythm rate of 58 with chronic changes but no change from prior EKG from 10/17/2018. Chest x-ray shows chronic changes no acute process read both by myself and the radiologist. Emergency Department Course and Treatment: Repeat exam patient is doing well. She is a extended period time in the emergency department due to the volume and acuity today. She was ambulated and her pulse ox remained in the mid to high 90s. And she had no labored breathing. Treatment Plan: Follow-up with her primary care physician and she has appointment to see a gardener florist in the end of January. Disposition: dc Impression: Dyspnea of uncertain etiology Chronic anemia Chronic coronary disease with cardiac stents and chronically elevated troponin History of diabetes This note was generated with [employer] dictation software. It may contain incorrect words, spelling, and punctuation that were not noted in review of the chart prior to signing ED Disposition - Plan for ED Patient: Referrals: Diana Cohen MD [Primary Care Provider] -
--- NOTE | 2018-12-31 21:12 | ED.DCSUM_ITS ---
- ER Visit Summary Date of Service: 12/31/18 Chief Complaint: Shortness of breath History of Present Illness: The patient is a 78 F history of cardiac stents, TIA, CAD, CHF insulin-dependent diabetes. Patient has a upcoming appointment with a orchid superintendent at [facility] in late January. She denies any chest pain. No recent travel or surgery. No recent hospitalization. Mild nonproductive cough. No fever. No hemoptysis. Physical Examination: Elderly female no acute distress. Vital signs are stable. Pulse ox 90% on room air no signs of hypoxia. HEENT exam unremarkable neck nontender no JVD lungs clear to auscultation bilaterally. Heart regular rate and rhythm no murmur rate about 60. Abdomen is soft and nontender normal bowel sounds no peritoneal signs. Extremities moves all 4. Calves nontender without edema or cords. Normal motor strength. Back nontender. Neurologically she is awake and alert with no focal motor deficits. Test Results: CBC shows a white count of 3. Hemoglobin of 10 with her baseline chronic anemia. Electrolytes unremarkable potassium 3.2 she is on potassium replacement at home. Normal creatinine and gap. Troponin is slightly elevated 0.069. She is not having chest pain. And her last troponin was 0.074. Is a history of chronic heart disease and has elevated troponins. EKG is a sinus rhythm rate of 58 with chronic changes but no change from prior EKG from 10/17/2018. Chest x-ray shows chronic changes no acute process read both by myself and the radiologist. Emergency Department Course and Treatment: Repeat exam patient is doing well. She is a extended period time in the emergency department due to the volume and acuity today. She was ambulated and her pulse ox remained in the mid to high 90s. And she had no labored breathing. Treatment Plan: Follow-up with her primary care physician and she has appointment to see a orchid superintendent in the end of January. Disposition: dc Impression: Dyspnea of uncertain etiology Chronic anemia Chronic coronary disease with cardiac stents and chronically elevated troponin History of diabetes This note was generated with [employer] dictation software. It may contain incorrect words, spelling, and punctuation that were not noted in review of the chart prior to signing ED Disposition - Plan for ED Patient: Referrals: Diana Cohen MD [Primary Care Provider] -
--- NOTE | 2018-12-31 21:12 | ED.DEP ---
ED Disposition - Plan for ED Patient: Disposition: Home or Assisted Living Instructions: ED Dyspnea Shortness of Breath Referrals: Diana Cohen MD [Primary Care Provider] - As soon as possible Additional Instructions: Call follow-up with your doctor. Your labs are not specifically different today than they have been in the past. Your chest x-ray was unremarkable.
[2018-12-31 21:23] VITALS: BP 115/74; PULSE 60; RESP 14; O2SAT 98
== END 2018-12-31 21:25 | disposition home or self-care (01) ==
PROVIDERS: Emergency Provider Emergency Medicine; Family Provider Internal Medicine; PCP Internal Medicine
DX: R06.02 Shortness of breath (principal); D64.9 Anemia, unspecified; I25.10 Atherosclerotic heart disease of native coronary artery without angina pectoris; R79.89 Other specified abnormal findings of blood chemistry; E11.9 Type 2 diabetes mellitus without complications; Z95.5 Presence of coronary angioplasty implant and graft; I50.9 Heart failure, unspecified; Z79.4 Long term (current) use of insulin; Z79.82 Long term (current) use of aspirin; Z79.899 Other long term (current) drug therapy; Z86.73 Personal history of transient ischemic attack (TIA), and cerebral infarction without residual deficits
CPT/HCPCS: 71045; 80048; 84484; 85025; 93005; 99285; A4216

== ENCOUNTER → 2019-02-04 11:42 | Outpatient (CLI) | payer MEDICARE, MEDICAID, SELFPAY ==
[2019-01-13 09:57] VITALS: BMI 30.3
[2019-02-04 12:53] LABS: Anion Gap 8 (5-15); BUN 23 mg/dL (7-18); BUN/Creat Ratio 21.1 RATIO (10-20); Calcium,Total 9.2 mg/dL (8.5-10.1); Chloride 100 mmol/L (98-107); Creatinine, Serum 1.09 mg/dL (0.55-1.02); EST Glomerular Filtration Rate 51 mL/min (>60); Est Glom Filt Rate - Afr Amer 62 mL/min (>60); Glucose 361 mg/dL (74-106); Potassium 4.2 mmol/L (3.5-5.1); Sodium Level 139 mmol/L (136-145)
== END ==
PROVIDERS: Family Provider Internal Medicine; PCP Internal Medicine; Referring Provider Physician Assistant Medical; Visit Provider Physician Assistant Medical
DX: I25.10 Atherosclerotic heart disease of native coronary artery without angina pectoris (principal); I87.2 Venous insufficiency (chronic) (peripheral); I10 Essential (primary) hypertension; E78.5 Hyperlipidemia, unspecified
CPT/HCPCS: 36415; 80048

== ENCOUNTER 2019-04-23 18:36 | Emergency (ER) | payer MEDICARE, MEDICAID, SELFPAY ==
[2019-04-16 13:06] VITALS: BMI 31.4
[2019-04-23 18:36] VITALS: BP 129/51; PULSE 64; RESP 16; TEMP 36.6; O2SAT 97; BMI 29.9
--- NOTE | 2019-04-23 18:58 | RAD_ITS ---
STUDY: X-RAY - LEFT SHOULDER REASON FOR EXAM: Female, 78 years old. Fall. TECHNIQUE: 4 view(s) of the shoulder. COMPARISON: 08/30/15 FINDINGS: Normal glenohumeral articulation. There is degenerative arthrosis of the acromioclavicular joint without inferior osseous spur formation. Normal acromion. Normal humeral head and visualized proximal humerus. The soft tissue structures are unremarkable. There is no demonstrated fracture. Normal visualized pulmonary apex. RAD/Shoulder min 2 Views IMPRESSION: Degenerative changes of the AC joint. No acute fracture or dislocation. Electronically Signed: Vishal Hsieh MD at 20:15 EDT , Service support ,
--- NOTE | 2019-04-23 18:58 | RAD_ITS ---
STUDY: X-RAY CHEST REASON FOR EXAM: Female, 78 years old. Fall. TECHNIQUE: Frontal and lateral views of the chest. COMPARISON: 12/31/2018. FINDINGS: The lungs are clear and expanded. There is no demonstrated pleural abnormality. Normal size heart. Normal mediastinum and rell. Normal visualized pulmonary arteries. Normal visualized aortic arch and descending thoracic aorta. There are diffuse degenerative changes of the visualized thoracic spine. Normal visualized ribs, clavicles, and shoulders. There is no demonstrated abnormality of the visualized soft tissue structures of the upper abdomen. RAD/Chest PA and Lateral IMPRESSION: There is no acute abnormality. Electronically Signed: Vishal Hsieh MD at 20:10 EDT , Service support ,
--- NOTE | 2019-04-23 18:58 | RAD_ITS ---
STUDY: X-RAY - PELVIS AND LEFT HIP REASON FOR EXAM: Female, 78 years old. Fall. Pain. TECHNIQUE: 3 views of the pelvis and hip. COMPARISON: None. FINDINGS: There is a non-specific bowel gas pattern. Normal visualized soft tissue structures. Normal bilateral iliac wings, sacroiliac joints and visualized sacrum. Normal bilateral superior and inferior pubic rami. Normal pubic symphysis. Normal bilateral ischial tuberosities. Moderate osteoarthritic changes are seen including tiny subchondral cysts. Sclerosis of the acetabulum. There is mild articular joint space narrowing of the hip. RAD/HIP, UNI W/ Pelvis 2-3 Views IMPRESSION: No acute fracture or dislocation. 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 Electronically Signed: Vishal Hsieh MD at 20:18 EDT , Service support ,
--- NOTE | 2019-04-23 18:58 | CT_ITS ---
STUDY: CT BRAIN WITHOUT CONTRAST REASON FOR EXAM: Female, 78 years old. Injury. Fall. RADIATION DOSAGE (If Supplied By Facility): CTDIvol = ( 44.99 ) mGy, DLP = ( 829.85 ) mGycm TECHNIQUE: Transaxial CT imaging of the brain was performed without administration of intravenous contrast material. Individualized dose optimization techniques were used for this CT. COMPARISON: 06/28/2016 FINDINGS: Normal soft tissue structures. Normal calvarium. There is mild cerebral atrophy with widening of the extra-axial spaces and ventricular dilatation. There are areas of decreased attenuation within the white matter tracts of the supratentorial brain, consistent with microvascular disease changes. There are bilateral lacunar infarcts of the basal ganglia and thalami. Normal brainstem. Normal cerebellum. There is no intracranial hemorrhage. There are no findings of an acute ischemic infarction. Normal visualized paranasal sinuses. CT/Brain/Head without Contrast IMPRESSION: No acute abnormality or change. Mild atrophy and white matter disease. Electronically Signed: Vishal Hsieh MD at 19:47 EDT , Service support ,
--- NOTE | 2019-04-23 18:58 | EKG12_ITS ---
Test Reason : FALL Blood Pressure : / mmHG Vent. Rate : 056 BPM Atrial Rate : 056 BPM P-R Int : 122 ms QRS Dur : 098 ms QT Int : 432 ms P-R-T Axes : -24 -09 073 degrees QTc Int : 416 ms Sinus bradycardia Left ventricular hypertrophy with repolarization abnormality Abnormal ECG Confirmed by SEVERINO CHEW, LIN ([id number]), video tape editor LAURIE MCCLELLAND ([id number]) on 04/25/2019 1:30:11 PM Referred By: ALDAIR Confirmed By:RICHIE HAQ MD
[2019-04-23] MEDS: Acetaminophen 500 MG Tablet 1000 MG PO (19:26)
--- NOTE | 2019-04-23 19:36 | ED.DCSUM_ITS ---
- ER Visit Summary Date of Service: 04/23/19 Chief Complaint: Fall History of Present Illness: The patient is a [address] Malik and Dr. Uriostegui. She reports that 2 days ago she bent over to pick something up and lost her balance. She fell and hit her head. She did not have a loss of consciousness. However, she is on Brilinta and aspirin. She reports that she has had left hip pain that is 8 out of 10 severity and left shoulder pain that is 4 out of 10 in severity. Reports the pain is worsened by moving. Is relieved by tramadol and rest. Patient reports that she was seen by the home health nurse who said that she had fluid in her lungs after listening with her stethoscope. Patient reports that she has chest pain that she describes as a soreness for the past few days. She been taking nitro once a day. She is unable to further describe this. She is a poor informant. She does report she is short of breath with exertion. However, this sounds to be chronic and unchanged. Physical Examination: Vitals: Stable. Afebrile. General: Well-nourished and well-developed. Head: Normocephalic, there is a faint contusion to the right side of her forehead. Neck: Supple, no lymphadenopathy. No JVD. Nontender. Cardiovascular: Regular rate and rhythm. 2 out of 6 systolic murmur. Respiratory: No respiratory distress. Clear to auscultation bilaterally. Chest is nontender. Abdominal: Soft, nontender, nondistended, normal bowel sounds. No guarding, rebound, or peritoneal signs. Back: Nontender. Extremities: She has a contusion just inferior to her left buttock. She has moderate tenderness palpation of her greater trochanter. There is no pain with internal or external rotation of her legs. She has 2+ pitting edema without extremes bilaterally. She has mild tenderness palpation over the posterior surface of her left shoulder. There is no pain over the deltoid. She has good range of motion without any difficulty. She is neurovascular intact distal to these injuries. Skin: Normal color, no rash. Neurologic: Alert and oriented ?3. Cranial nerves II through XII are intact. Normal strength and sensation. Psych: Normal affect. Test Results: EKG shows sinus bradycardia rate of 56. Is unchanged from December of this year. Troponin is 0.039. This is the lowest troponin she has had since November 03, 2017. Chem-7 shows a potassium of 2.8, chloride 95, CO2 of 38, BUN 32, creatinine 1.3, glucose of 244. Creatinine is range between 0.66 and 1.09 and 2019. CBC shows an H&H 10.9 and 31.8, platelets 128. Clinical Impression(s) from Imaging Studies Brain CT 04/23/19 18:58 IMPRESSION: No acute abnormality or change. Mild atrophy and white matter disease. Electronically Signed: Vishal Hsieh MD at 19:47 EDT , Service support , Chest X-Ray 04/23/19 18:58 IMPRESSION: There is no acute abnormality. Electronically Signed: Vishal Hsieh MD at 20:10 EDT , Service support , Hip/Pelvis X-Ray 04/23/19 18:58 IMPRESSION: No acute fracture or dislocation. 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 Electronically Signed: Vishal Hsieh MD at 20:18 EDT , Service support , Shoulder X-Ray 04/23/19 18:58 IMPRESSION: Degenerative changes of the AC joint. No acute fracture or dislocation. Electronically Signed: Vishal Hsieh MD at 20:15 EDT , Service support , Emergency Department Course and Treatment: Patient was treated with Tylenol. She is resting comfortably. Patient was given 40 mEq of potassium p.o. 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 Malik. He would like her potassium increased from 10 mEq to 20 mEq a day. He wants to continue the Lasix at the same rate. She will be discharged instructions to follow-up with her primary care physician in 1 week for another exam. Return to the emergency department for any worsening symptoms. Disposition: To home in [facility] and stable condition. Impression: 1. Fall. 2. Hypokalemia. 3. Stable chronic chest pain. 4. Left buttock contusion. This note was generated with [employer] dictation software. It may contain incorrect words, spelling, and punctuation that were not noted in review of the chart prior to signing ED Disposition - Plan for ED Patient: Disposition: Home or Assisted Living Instructions: Hypokalemia, Hip Contusion Prescriptions: Potassium Chloride [K-Dur] 20 meq PO DAILY #30 tab Prescription Printed Referrals: Diana Cohen MD [Primary Care Provider] - 1 Week
[2019-04-23 20:30] LABS: Absolute Lymphocyte Count 1.52 X10^3/uL (0.83-4.51); Basophil# 0.02 X10^3/uL; Basophil% 0.4 % (0-1); Eosinophil# 0.11 X10^3/uL; Eosinophils% 2.2 % (0-5); Hematocrit 31.8 % (37-47); Hemoglobin 10.9 g/dL (12.0-15.0); Lymphocyte # 1.52 X10^3/ul (4.0); Lymphocyte % 30.2 % (19-41); Mean Corp Hgb Conc 34.3 g/dL (32-36); Mean Corpuscular Hgb 32.3 pg (27.0-32.0); Mean Corpuscular Volume 94.4 fL (81-99); Mean Platelet Vol. 9.5 fl (6.2-12.0); Monocyte# 0.39 X10^3/uL; Monocyte% 7.7 % (0-10); NRBC Flagged by Analyzer 0 % (0-5); Neutrophil # 2.99 X10^3/uL (2.7-7.7); Neutrophil % 59.3 % (47-70); Platelet Count 128 K/mm3 (150-450); RBC Distribution Width CV 13.4 % (11.6-14.6); RBC Distribution Width SD 46.4 fl (35.1-43.9); Red Blood Count 3.37 M/mm3 (4.2-5.4)
[2019-04-23 20:47] LABS: Anion Gap 3 (5-15); BUN 32 mg/dL (7-18); BUN/Creat Ratio 24.6 RATIO (10-20); Calcium,Total 8.9 mg/dL (8.5-10.1); Chloride 95 mmol/L (98-107); EST Glomerular Filtration Rate 42 mL/min (>60); Est Glom Filt Rate - Afr Amer 51 mL/min (>60); Estimated Creatinine Clearance 34.12 ml/min; Glucose 244 mg/dL (74-106); Potassium 2.8 mmol/L (3.5-5.1); Sodium Level 136 mmol/L (136-145)
[2019-04-23 20:49] VITALS: BP 108/50; PULSE 54; RESP 16; O2SAT 99
[2019-04-23 21:45] VITALS: BP 102/64; PULSE 54; RESP 17; O2SAT 100
== END 2019-04-23 21:55 | disposition home or self-care (01) ==
LOC: ED 19:04
PROVIDERS: Emergency Provider Emergency Medicine; Family Provider Internal Medicine; PCP Internal Medicine
DX: S30.0XXA Contusion of lower back and pelvis, initial encounter (principal); W19.XXXA Unspecified fall, initial encounter; Y93.89 Activity, other specified; E87.6 Hypokalemia; R07.9 Chest pain, unspecified; G89.29 Other chronic pain; M19.012 Primary osteoarthritis, left shoulder; M16.12 Unilateral primary osteoarthritis, left hip; I25.10 Atherosclerotic heart disease of native coronary artery without angina pectoris; I11.0 Hypertensive heart disease with heart failure; I50.9 Heart failure, unspecified; E11.9 Type 2 diabetes mellitus without complications; F20.9 Schizophrenia, unspecified; E03.9 Hypothyroidism, unspecified; K75.81 Nonalcoholic steatohepatitis (NASH); Z79.4 Long term (current) use of insulin; Z79.82 Long term (current) use of aspirin; Z79.899 Other long term (current) drug therapy
CPT/HCPCS: 70450; 71046; 73030; 73502; 80048; 84484; 85025; 93005; 99285; A4216

== ENCOUNTER 2019-06-24 14:26 | Observation (INO) | payer MEDICARE, MEDICAID, SELFPAY ==
[2019-06-24 14:27] VITALS: BP 109/54; PULSE 71; RESP 18; TEMP 36.8; O2SAT 96; BMI 34.6
--- NOTE | 2019-06-24 14:45 | RAD_ITS ---
STUDY: X-RAY CHEST REASON FOR EXAM: Female, 79 years old. Chest pain. TECHNIQUE: Single AP portable view of the chest. COMPARISON: Comparison is made with prior study dated April 23, 2019. FINDINGS: EKG electrodes are seen. The lungs are clear and expanded. There is no demonstrated pleural abnormality. Normal size heart. Normal mediastinum and rell. Normal visualized pulmonary arteries. There is atherosclerotic tortuosity of the aortic arch and descending thoracic aorta. There are diffuse degenerative changes of the visualized thoracic spine. There is degenerative osteoarthritis of the bilateral shoulders. There is no demonstrated abnormality of the visualized soft tissue structures of the upper abdomen. RAD/Chest 1 View (Portable) IMPRESSION: No acute abnormalities. Electronically Signed: Jasiel Luna, at 15:11 EST , Service support ,
--- NOTE | 2019-06-24 14:45 | EKG12_ITS ---
Test Reason : CP Blood Pressure : / mmHG Vent. Rate : 070 BPM Atrial Rate : 070 BPM P-R Int : 184 ms QRS Dur : 086 ms QT Int : 482 ms P-R-T Axes : 053 -13 -05 degrees QTc Int : 520 ms Normal sinus rhythm Left ventricular hypertrophy with repolarization abnormality Prolonged QT Abnormal ECG Confirmed by SEVERINO CHEW, LIN ([id number]), tape editor MAO MAIER ([id number]) on 06/27/2019 12:21:40 PM Referred By: ОЛЕГ Confirmed By:RICHIE HAQ MD
[2019-06-24 15:19] LABS: Absolute Lymphocyte Count 0.77 X10^3/uL (0.83-4.51); Absolute Neutrophil Count 1.4 X10^3/uL (2.0-7.7); Basophil# 0.03 X10^3/uL; Basophil% 1.2 % (0-1); Eosinophil# 0.09 X10^3/uL; Eosinophils% 3.7 % (0-5); Hemoglobin 9.8 g/dL (12.0-15.0); Lymphocyte # 0.77 X10^3/ul (4.0); Lymphocyte % 31.3 % (19-41); Mean Corp Hgb Conc 32.7 g/dL (32-36); Mean Platelet Vol. 9.7 fl (6.2-12.0); Monocyte# 0.19 X10^3/uL; Monocyte% 7.7 % (0-10); NRBC Flagged by Analyzer 0 % (0-5); Neutrophil # 1.38 X10^3/uL (2.7-7.7); Neutrophil % 56.1 % (47-70); Platelet Count 108 K/mm3 (150-450); RBC Distribution Width CV 13.3 % (11.6-14.6); RBC Distribution Width SD 47.7 fl (35.1-43.9); Red Blood Count 3.06 M/mm3 (4.2-5.4); White Blood Count 2.5 K/mm3 (4.4-11.0)
[2019-06-24 15:36] LABS: Anion Gap 5 (5-15); BUN 14 mg/dL (7-18); BUN/Creat Ratio 14.6 RATIO (10-20); Chloride 104 mmol/L (98-107); Creatinine, Serum 0.96 mg/dL (0.55-1.02); EST Glomerular Filtration Rate 60 mL/min (>60); Est Glom Filt Rate - Afr Amer 72 mL/min (>60); Estimated Creatinine Clearance 42.06 ml/min; Glucose 418 mg/dL (74-106); Potassium 3.8 mmol/L (3.5-5.1); Sodium Level 139 mmol/L (136-145)
[2019-06-24 16:25] VITALS: BP 125/56; PULSE 61; RESP 14; O2SAT 97
--- NOTE | 2019-06-24 16:28 | ED.DCSUM_ITS ---
History of Present Illness Chief Complaint: Chest Pain Informant: Patient Onset: Days - 3 Narrative: Patient sent here from urgent care due to chest pain symptoms. She reports cough, production for 3 days with pulsatile left-sided chest symptoms. History of coronary disease with stenting, states she has been cath multiple times last year. She is followed by Dr. Malik. Denies fever. She is on aspirin and Brilinta took her doses this morning. No recent travel, surgeries, or immobilizations. No history of PE or DVT. Denies tobacco history. Last seen cardiology this past April. Her last heart cath was August of this year. Denies history of COPD. Prior similar symptoms: Yes Past Medical History - Allergies and Home Meds Allergies/Adverse Reactions: Allergies aripiprazole [From Abilify] Allergy (Intermediate, Verified 06/24/19 14:32) it over powered me lisinopril Allergy (Intermediate, Verified 06/24/19 14:32) GI upset atorvastatin calcium [From Lipitor] Adverse Reaction (Verified 06/24/19 14:32) Unknown rosiglitazone maleate [From Avandia] Adverse Reaction (Verified 06/24/19 14:32) Other Primary Care Physician: Diana Cohen MD [Primary Care Provider] - Surgical History: angioplasty, appendectomy, cholecystectomy, tonsillectomy, - - Spinal fusion Smoking Status: Never smoker - Family History Maternal Family History: Family History (Last Reviewed 01/13/19 @ 10:12 by Cesia Lucero) Mother CAD (coronary artery disease) Father CAD (coronary artery disease) Family History: Reports: Heart Disease - CAD, - - Schizophrenia Paternal Family History: Family History (Last Reviewed 01/13/19 @ 10:12 by Cesia Lucero) Mother CAD (coronary artery disease) Father CAD (coronary artery disease) Family History: Reports: Heart Disease Review of Systems General: Denies: Chills, Fever, Sweats Eyes: Denies: Visual changes - bilaterally, Diplopia ENT: Denies: Rhinorrhea, Sore throat Cardiovascular: Reports: Chest pain. Denies: Palpitations Respiratory: Reports: Dyspnea, Cough, Sputum. Denies: Dyspnea on exertion Gastrointestinal: Denies: Abdominal pain, Nausea, Vomiting, Diarrhea, Melena, Hematochezia Genitourinary: Denies: Dysuria, Hematuria, Frequency Musculoskeletal: Denies: Back pain, Extremity Pain Skin: Denies: Rash, Wounds Neurological: Denies: Headache, Weakness, Numbness Physical Exam Vital Signs/Narrative: Vital Signs Temp Pulse Resp BP Pulse Ox 06/24/19 16:25 61 14 125/56 H 97 06/24/19 14:27 98.3 F 71 18 109/54 L 96 Inital Vital Signs reviewed: Yes General: Well nourished, Well developed, No Acute Distress Head: Normocephalic, Atraumatic Eyes: Perrl, EOMI ENT: Moist mucous membranes, No rhinorrhea Neck: Supple, Nontender Cardiovascular: Regular rate, Regular rhythm, No murmurs Respiratory: No distress, CTA bilaterally, Chest nontender Abdomen: Soft, Nontender, Nondistended, Normal bowel sounds Back: Nontender, Normal Inspection Extremities: Nontender, No edema Skin: Normal color, No rash Neurological: Alert, Oriented x3, Cranial nerves II-XII grossly intact, Normal Strength, Normal Sensation Psychological: Normal affect, Normal Mood Diagnostic/Tx/Re-eval Clinical Impression(s) from Imaging Studies Chest X-Ray 06/24/19 14:45 IMPRESSION: No acute abnormalities. Electronically Signed: Jasiel uLna, at 15:11 EST , Service support , Abnormal Lab Results 06/24/19 06/24/19 15:14 15:14 WBC 2.5 L RBC 3.06 L Hgb 9.8 L Hct 30.0 L MCV 98.0 MCH 32.0 MCHC 32.7 RDW Std Deviation 47.7 H RDW Coeff of Conchis 13.3 Plt Count 108 L MPV 9.7 Immature Gran % (Auto) 0.000 Neut % (Auto) 56.1 Lymph % (Auto) 31.3 Wagoner % (Auto) 7.7 Eos % (Auto) 3.7 Baso % (Auto) 1.2 H Absolute Neuts (auto) 1.4 L Absolute Lymphs (auto) 0.77 L Nucleated RBC % 0 Sodium 139 Potassium 3.8 Chloride 104 Carbon Dioxide 30.0 Anion Gap 5 BUN 14 Creatinine 0.96 Estim Creat Clear Calc 42.06 Est GFR (MDRD) Af Amer 72 Est GFR (MDRD) Non-Af 60 BUN/Creatinine Ratio 14.6 Glucose 418 H Calcium 9.0 Troponin I 0.067 H - Medical Decision Making Patient EKG with no acute findings. Chest x-ray with no infiltrates. Patient with labs noting slight neutropenia however is been neutropenic previously. Troponin elevated at 0.067, she has had chronic elevations in the past, most recent elevation was in December of this year 0.069. She had normalized troponin this past April. For evaluation and notes and records she had no chest pains on her recent elevation however today complaint of chest pain symptoms over 3 days. On reevaluation she is symptom-free. She had concerns of dyspnea however she is 100% room air, she has no PE risk factors. With her significant cardiac history multiple heart caths, and now slight elevation of troponin I do feel she will benefit from inpatient management. Will discussed with hospitalist for admission. 1651: Discussed with Dr. Madrid, accepts admission to PCU for further management. ED Disposition - Plan for ED Patient: Disposition: Acute Care Hospital [facility] Diagnosis: Chest pain, Elevated troponin, URI Referrals: Diana Cohen MD [Primary Care Provider] -
--- NOTE | 2019-06-24 17:01 | NURSING ---
105 OBS CP, ELEVATED TROP STACIE
[2019-06-24 17:02] VITALS: BMI 34.6
[2019-06-24 17:08] VITALS: PULSE 67
[2019-06-24 17:20] VITALS: BMI 31.4
[2019-06-24 17:28] VITALS: BP 132/66; PULSE 74; RESP 16; TEMP 36.9; O2SAT 98
--- NOTE | 2019-06-24 18:38 | HP.PCM_ITS ---
History of Present Illness Date of Admission: 06/24/19 The patient is a 79 year old F with a past medical history of schizophrenia, DM-2, hypertension, hyperlipidemia, hypothyroidism, CAD status post stent to her ostial/proximal circumflex. She does have a complicated history of coronary artery disease with angioplasty and rotablation of her LAD in 2013. She then had an acute non-ST myocardial infarction in July 2017. The patient was transferred to [facility] at that time where she did have angioplasty and stenting of her distal left main into the ostium of her LAD. In November 2017 she was hospitalized for a non-ST myocardial infarction. She underwent a diagnostic heart catheterization which demonstrated Left main coronary artery with mild disease. Left anterior descending artery previously stented and patent proximally and mid with severe distal disease. Ostial 95% circumflex artery stenosis and a diffusely diseased vessel. First obtuse marginal branch with ostial stenosis. Second obtuse marginal branch with diffuse disease. Dominant right coronary artery with diffuse disease. She had a preserved ejection fraction at that time. In August 2018 she presented with unstable angina and repeat catheterization demonstrated a critical in-stent restenosis i at the bifurcation of her left main and left circumflex. She was transferred to [facility] where she underwent successful laser atherectomy for mid left circumflex in-stent restenosis, followed by balloon angioplasty only with a 3.0 ex-15 noncompliant balloon with minimal residual stenosis. Her last ECHO showed an EF of 50% 10/06/18.She presented to the ED today after being sent from an Urgent care where she reported for CP and SOB. She is a poor historian. She states that she has a cough but it is chronic. Her primary complaint is SOB that was relieved by nitro SL. She has had multiple cardiac interventions as noted above. She takes asa and Brilinta and took her doses this am. Her last cardiac cath was 08/2018. She follows with Dr. Malik and it appears that he last saw her in December with f/u scheduled for October 2019. Her troponins are mildly elevated currently but when I reviewed her overall trend it appears that they are always a bit elevated. She currently is pain free and ordering dinner. Past Medical History Past Medical History (Chronic Problems): Chronic Problems (Last Reviewed 12/19/18 @ 11:18 by Genet Barger) Non-rheumatic mitral regurgitation (Chronic) Nonrheumatic tricuspid valve regurgitation (Chronic) Essential hypertension (Chronic) Thrombocytopenia (Chronic) CAD (coronary artery disease) (Chronic) History of spinal fusion (Chronic) anterior Non-rheumatic aortic stenosis (Chronic) History of coronary artery stent placement (Chronic) PTCA-ostail/prox LCx @ [facility] 11/09/2017 PTCA-Cutting Balloon Atherectomy w/ placement of 2.5 x 20 mm Synergy Stent, Distal LM-into the Ostium of LAD Stented w/ 4.0 x 16 mm Synergy Stent 06/2017PTCA-OM 04/2017 PCI-LAD with a 2.75x38 Promus Premier drug eluting stent. 12/15/13 RAYMON of Right Posterior Lateral (Mid) wIth 3.0 x 2.8 Cypher, followed upstream with 3.0 x 8 Cypher, RAYMON of Right PDA (Ostial) with 25 x 28 Cypher 09/17/2007 Chronic systolic (congestive) heart failure (Chronic) Schizophrenia (Chronic) S/P PTCA (percutaneous transluminal coronary angioplasty) (Chronic ~11/09/17) PCI of ostial and mid LCX in-stent restenosis with laser atherectomy, balloon angioplasty per Dr. Rodriguez [facility] 08/20/18 PCI PTCA and laser atherectomy of proximal Circumflex 02/03/2018 PTCA-ostial/prox LCx @ [facility] 11/09/2017 PTCA-Cutting Balloon Atherectomy w/ placement of 2.5 x 20 mm Synergy Stent, Distal LM-into the Ostium of LAD Stented w/ 4.0 x 16 mm Synergy Stent 06/2017PTCA-OM 04/2017 PCI-LAD with a 2.75x38 Promus Premier drug eluting stent. 12/15/13 RAYMON of Right Posterior Lateral (Mid) wIth 3.0 x 2.8 Cypher, followed upstream with 3.0 x 8 Cypher, RAYMON of Right PDA (Ostial) with 25 x 28 Cypher 09/17/2007 History of coronary artery stent placement (Chronic) Atherosclerotic heart disease [place] coronary artery w/angina pectoris (Chronic) PCI of ostial and mid LCX in-stent restenosis with laser atherectomy, balloon angioplasty per Dr. Rodriguez [facility] 08/20/18 PCI PTCA and laser atherectomy of proximal Circumflex 02/03/2018 PTCA-ostail/prox LCx @ [facility] 11/09/2017 PTCA-Cutting Balloon Atherectomy w/ placement of 2.5 x 20 mm Synergy Stent, Distal LM-into the Ostium of LAD Stented w/ 4.0 x 16 mm Synergy Stent 06/2017PTCA- 04/2017 PCI-LAD with a 2.75x38 Promus Premier drug eluting stent. 12/15/13 RAYMON of Right Posterior Lateral (Mid) wIth 3.0 x 2.8 Cypher, followed upstream with 3.0 x 8 Cypher, RAYMON of Right PDA (Ostial) with 25 x 28 Cypher 09/17/2007 Pancytopenia (Chronic) Hypothyroidism (Chronic) Hyperlipidemia (Chronic) Diabetes mellitus, type II (Chronic) Venous insufficiency (Chronic) NSTEMI (non-ST elevated myocardial infarction) (Chronic ~09/16/17) Intermittent claudication (Chronic) Obesity (BMI 30.0-34.9) (Chronic) Medical History: Medical History (Last Reviewed 12/19/18 @ 11:18 by Genet Barger) Non-rheumatic mitral regurgitation (Chronic) I34.0 Nonrheumatic tricuspid valve regurgitation (Chronic) I36.1 Essential hypertension (Chronic) I10 Non-rheumatic aortic stenosis (Chronic) I35.0 Chronic systolic (congestive) heart failure (Chronic) I50.22 Schizophrenia (Chronic) F20.9 Atherosclerotic heart disease [place]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 Rodriguez [facility] 08/20/18 PCI PTCA and laser atherectomy of proximal Circumflex 02/03/2018 PTCA-ostail/prox LCx @ [facility] 11/09/2017 PTCA-Cutting Balloon Atherectomy w/ placement of 2.5 x 20 mm Synergy Stent, Distal LM-into the Ostium of LAD Stented w/ 4.0 x 16 mm Synergy Stent 06/2017PTCA-OM 04/2017 PCI-LAD with a 2.75x38 Promus Premier drug eluting stent. 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) K75.81, K74.60 CHF (congestive heart failure) (Inactive) I50.9 Hypertension (Inactive) I10 Mitral valve insufficiency (Inactive) I34.0 Tricuspid valve insufficiency (Inactive) I07.1 Allergies aripiprazole [From Abilify] Allergy (Intermediate, Verified 06/24/19 14:32) it over powered me lisinopril Allergy (Intermediate, Verified 06/24/19 17:00) Unknown atorvastatin calcium [From Lipitor] Adverse Reaction (Verified 06/24/19 14:32) Unknown rosiglitazone maleate [From Avandia] Adverse Reaction (Verified 06/24/19 14:32) Other Home Medications: Ambulatory Orders Medication Instructions Recorded Aspirin [Aspirin, Baby] 81 mg PO DAILY@0800 06/30/17 Nitroglycerin [Nitrostat] 0.4 mg SL PRN PRN 06/30/17 Multivitamins,Therapeutic 1 tab PO DAILY 02/01/18 [Multivitamin] Levothyroxine Sodium [Synthroid] 100 mcg PO DAILY 06/21/18 ascorbic acid (vitamin C) 500 mg 500 mg PO DAILY 09/13/18 tablet insulin U-100 regular human 100 5 - 10 unit SC TID ml 09/13/18 unit/mL injection solution amlodipine 2.5 mg tablet 2.5 mg PO DAILY #30 tab 10/03/18 losartan 50 mg tablet 50 mg PO DAILY #30 tab 10/03/18 pravastatin 80 mg tablet 80 mg PO DAILY #30 tab 10/03/18 ranolazine ER 1,000 mg 1,000 mg PO BID #60 tab 10/03/18 tablet,extended release,12 hr ticagrelor 90 mg tablet 90 mg PO BID #60 tab 10/03/18 Insulin Glargine,Hum.rec.anlog 34 unit SC DAILY 04/23/19 [Soha Vianneydeonna] Potassium Chloride [K-Dur] 20 meq PO DAILY #30 tab 04/23/19 Carvedilol [Coreg] 3.125 mg PO BIDCM 06/24/19 Cholecalciferol (Vitamin D3) 5,000 unit PO DAILY 06/24/19 [Vitamin D3] Fluphenazine Decanoate 12.5 mg IJ UD 06/24/19 Folic Acid 0.4 mg PO DAILY@0800 06/24/19 Furosemide 40 mg PO BID 06/24/19 Isosorbide Mononitrate [Imdur] 60 mg PO DAILY 06/24/19 Metolazone 2.5 mg PO WE 06/24/19 Surgical History: Surgical History (Last Reviewed 01/13/19 @ 10:11 by Cesia Lucero) History of spinal fusion (Chronic) Z98.1 anterior History of coronary artery stent placement (Chronic) Z95.5 PTCA-ostail/prox LCx @ [facility] 11/09/2017 PTCA-Cutting Balloon Atherectomy w/ placement of 2.5 x 20 mm Synergy Stent, Distal LM-into the Ostium of LAD Stented w/ 4.0 x 16 mm Synergy Stent 06/2017PTCA-OM 04/2017 PCI-LAD with a 2.75x38 Promus Premier drug eluting stent. 12/15/13 RAYMON of Right Posterior Lateral (Mid) wIth 3.0 x 2.8 Cypher, followed upstream with 3.0 x 8 Cypher, RAYMON of Right PDA (Ostial) with 25 x 28 Cypher 09/17/2007 S/P PTCA (percutaneous transluminal coronary angioplasty) (Chronic) Onset Date: ~11/09/17 Z98.61 PCI of ostial and mid LCX in-stent restenosis with laser atherectomy, balloon angioplasty per Dr. Rodriguez [facility] 08/20/18 PCI PTCA and laser atherectomy of proximal Circumflex 02/03/2018 PTCA-ostial/prox LCx @ [facility] 11/09/2017 PTCA-Cutting Balloon Atherectomy w/ placement of 2.5 x 20 mm Synergy Stent, Distal LM-into the Ostium of LAD Stented w/ 4.0 x 16 mm Synergy Stent 06/2017PTCA-OM 04/2017 PCI-LAD with a 2.75x38 Promus Premier drug eluting stent. 12/15/13 RAYMON of Right Posterior Lateral (Mid) wIth 3.0 x 2.8 Cypher, followed upstream with 3.0 x 8 Cypher, RAYMON of Right PDA (Ostial) with 25 x 28 Cypher 09/17/2007 History of coronary artery stent placement (Chronic) Z95.5 History of appendectomy Z90.49 History of cholecystectomy Z90.49 History of tonsillectomy and adenoidectomy Z98.890 Surgical History: angioplasty, appendectomy, cholecystectomy, tonsillectomy, - - Spinal fusion Psychiatric History: No pertinent psych hx [employer] History: No pertinent [employer] history Lives: Alone Smoking Status: Never smoker Tobacco Use: Non-smoker Alcohol: None Drugs: None - *Family History Maternal Family History: Family History (Last Reviewed 01/13/19 @ 10:12 by Cesia Lucero) Mother CAD (coronary artery disease) Father CAD (coronary artery disease) History Items: Heart Disease - CAD, - - Schizophrenia Paternal Family History: Family History (Last Reviewed 01/13/19 @ 10:12 by Cesia Lucero) Mother CAD (coronary artery disease) Father CAD (coronary artery disease) History Items: Heart Disease Review of Systems Constitutional: Denies: Anorexia, Chills, Fever, Night Sweats, Malaise, Weakness, Weight Change, Fatigue Eyes: Denies: Blurred vision, Cataracts, Conjunctivae Inflammation, Double vision, Drainage, Eyelid Inflammation, Pain, Redness, Vision Change HEENT: Denies: Difficulty Hearing, Difficulty Swallowing, Dysphasia, Ear Pain, Eye Pain, Hard of Hearing, Head Aches, Hearing Changes, Nasal bleeding, Nasal Congestion, Post Nasal Drip, Sinus Congestion, Sinus Drainage, Sore Throat, Visual Changes Cardiovascular: Reports: Chest Pain, Chest Pressure, Chest Tightness, Edema - chronic. Denies: Heaviness, Light Headedness, Orthopnea, Palpitations, Paroxysmal Noc. Dyspnea, Syncope Respiratory: Reports: Cough - chronic, Shortness of Breath - none currently, Shortness of breath upon exertion. Denies: Hemoptysis, Pleuritic Pain, Shortness of breath at rest, Sputum production, Wheezing Gastrointestinal: Denies: Abdominal Pain, Constipation, Diarrhea, Dyspepsia, Hematemesis, Hematochezia, Nausea, Melena, Vomiting Genitourinary: Denies: Dysuria, Frequency, Hematuria, Hesitancy, Incontinence, Nocturia, Retention, Urgency Musculoskeletal: Reports: Leg Pain - R 2/2 trauma recently, Neck Pain, Shoulder Pain. Denies: Arm Pain, Back Pain, Foot Pain, Hand Pain, Joint Pain, Joint stiffness, Joint swelling, Joint Tenderness, Muscle pain Skin: Reports: Dryness, - - ecchymosis R LE. Denies: Jaundice, Lesions, Pruritis, Rash, Skin Changes, Wounds Neurological: Denies: Balance problems, Blurred vision, Double vision, Change in Speech, Slurred speech, Confusion, Difficulty swallowing, Focal weakness, Headaches, Incoordination, Numbness, Tingling, Tremor, Seizures Psychiatric: Reports: Anxiety, Depression. Denies: Suicidal Ideations Endocrine: Denies: Change in Body Habitus, Heat/ Cold Intolerance, Polydipsia, Polyuria Hematologic/ Lymphatic: Reports: Easy Bruising, Easy Bleeding. Denies: Adenopathy, Anemia, Petechiae, Purpura VTE Information - Inpt Only VTE Present on Admission: No VTE Mechan Device Prophylaxis: SCD's VTE Pharm Prophylaxis ordered?: Yes Patient Problems: Active and Suspected Problems (Last Reviewed 12/19/18 @ 11:18 by Genet Barger) Chest pain (Acute) Elevated troponin (Acute) - Physical Exam Vitals/I&O's: Vital Signs Temp Pulse Resp BP Pulse Ox 98.4 F 74 16 132/66 H 98 06/24/19 17:28 06/24/19 17:28 06/24/19 17:28 06/24/19 17:28 06/24/19 17:28 Oxygen Flow Rate (L/min) 2 Oxygen Delivery Method Room Air Weight: 88.3 kg Body Mass Index (BMI) 31.4 Finger Stick Blood Glucose 270 General: Alert, Oriented x3, Cooperative, No apparent distress, Well developed, Well nourished, - - sitting up but reclining in bed, on phone upon my arrival, non-toxic and appears comfortable HEENT: Atraumatic, PERRLA, EOMI, Normocephalic, EAC Clear Oral: Moist Mucosa, No Gingival or Mucosal Lesions/ Ulcerations, - - upper dentures Neck: Supple, No JVD, Negative Carotid Bruits, Negative Hepatojugular Reflux, Trachea Midline, Thyroid Normal Size and Texture Lungs: Clear to auscultation, Normal air movement, No rhonchi, No wheeze, No rales Cardiovascular: Regular rate, Regular Rhythm, Normal S1, Normal S2, No murmurs, No rub noted, No Gallop, - - tender anterior chest wall Abdomen: Bowel Sounds Present, Soft, Non Tender, Non-Distended, No Hepato- splenomegaly, Passing Flatus, Obese, No hernias noted Extremities: No clubbing, No cyanosis, Capillary Refill Less than 3 Seconds, Edema - trace B LE, Peripheral Pulses Normal Skin: No rashes, No breakdown, - - ecchymosis R LE, tender Musculoskeletal: No Tenderness to Palpation of Joints or Extremities, No Muscle Wasting Lymphatic: No Cervical, Supraclavicular, or Inguinal Adenopathy Neurological: Cranial nerves II-XII grossly intact, Deep Tendon Reflexes 2+/4 and Symmetrical, Neuro grossly intact, Motor Exam 5/5 strength throughout Psych/Mental Status: Appropriate, Anxious - mild Laboratory Results 06/24/19 15:14: WBC 2.5 L, RBC 3.06 L, Hgb 9.8 L, Hct 30.0 L, MCV 98.0, MCH 32.0, MCHC 32.7, RDW Std Deviation 47.7 H, RDW Coeff of Conchis 13.3, Plt Count 108 L, MPV 9.7, Immature Gran % (Auto) 0.000, Neut % (Auto) 56.1, Lymph % (Auto) 31.3, Millard % (Auto) 7.7, Eos % (Auto) 3.7, Baso % (Auto) 1.2 H, Absolute Neuts (auto) 1.4 L, Absolute Lymphs (auto) 0.77 L, Nucleated RBC % 0 06/24/19 15:14: Sodium 139, Potassium 3.8, Chloride 104, Carbon Dioxide 30.0, Anion Gap 5, BUN 14, Creatinine 0.96, Estim Creat Clear Calc 42.06, Est GFR (MDRD) Af Amer 72, Est GFR (MDRD) Non-Af 60, BUN/Creatinine Ratio 14.6, Glucose 418 H, Calcium 9.0, Troponin I 0.067 H Current Medications Sodium Chloride () 10 - 40 ml IV UD PRN PRN Reason: SALINE FLUSH Assessment/Plan All Active Problems (Last Reviewed 12/19/18 @ 11:18 by Genet Hdz Chest pain (Acute) URI (Acute) Atypical chest pain (Acute) Elevated troponin (Acute) Cognitive changes (Resolved) NSTEMI (non-ST elevated myocardial infarction) (Resolved) Unstable angina (Resolved) CP -no ECG changes -troponin with mild elevation -cycle x3 -CP resolved -Cards consulted -continue home meds [id number] -Lantus to 34 units -6 units tid with meals -ssi HFpEF -last EF was 50% -restart metolazone and Lasix HTN/CAD/HPL/PAD -continue Norvasc 2.5 mg daily -continue ASA 81 mg daily -Coreg 3.125 mg BID -continue Imdur 60 mg -continue Losartan 50 mg -continue Pravastatin 80 mg daily -continue Ranolazine 1000 mg BID -continue Brilinta 90 mg BID -prn nitro Hypothyroidism -continue home Synthroid CHENEY/Cirrhosis -aggressive medical mgt -cirrhosis noted on previous CT Pancytopenia -follow with Dr. Son -chronic Obesity -recommend wgt loss -appears that wgt is stable LE Edema -states this is chronic for her and that she has had multiple US in past -appears to be at baseline per pt Dry Cough -non-productive -chronic -lung exam WNL Code Visit Inpatient E&M: 84802 Init Hosp L3
[2019-06-24 19:00] VITALS: PULSE 68
[2019-06-24 22:20] VITALS: BP 141/60; PULSE 66; RESP 16; TEMP 36.8; O2SAT 97
[2019-06-24] MEDS: Ranolazine 500 MG Tablet 1000 MG PO (22:28)
[2019-06-24] MEDS: TICAGRELOR 90 MG TABLET PO (22:29)
[2019-06-24] MEDS: Heparin Injection (Vial) 5,000 UNIT/ML VIAL 5000 UNIT SC (22:29)
[2019-06-24] MEDS: Pravastatin 80 MG Tablet PO (22:29)
[2019-06-24] MEDS: Carvedilol 3.125 MG TABLET PO (22:29)
[2019-06-24 22:30] LABS: Magnesium 2.1 mg/dL (1.6-2.6)
[2019-06-24] MEDS: Insulin Lispro 100 UNIT/ML INSULN.PEN SC (22:53)
[2019-06-24] MEDS: traMADol 50 MG Tablet PO (23:01)
[2019-06-24 23:11] LABS: Bedside Glucose 272 mg/dL (70-110)
[2019-06-25 03:00] VITALS: PULSE 64
[2019-06-25 03:55] VITALS: BP 117/52; PULSE 65; RESP 18; TEMP 36.6; O2SAT 96
[2019-06-25 05:03] LABS: Hematocrit 28.5 % (37-47); Hemoglobin 9.5 g/dL (12.0-15.0); Mean Corp Hgb Conc 33.3 g/dL (32-36); Mean Corpuscular Hgb 32.2 pg (27.0-32.0); Mean Corpuscular Volume 96.6 fL (81-99); Mean Platelet Vol. 9.4 fl (6.2-12.0); POSITIVE COUNT YES; Platelet Count 96 K/mm3 (150-450); RBC Distribution Width CV 13.1 % (11.6-14.6); RBC Distribution Width SD 46.6 fl (35.1-43.9); Red Blood Count 2.95 M/mm3 (4.2-5.4); White Blood Count 2.3 K/mm3 (4.4-11.0)
[2019-06-25] MEDS: Levothyroxine 100 MCG Tablet PO (05:25)
[2019-06-25 05:33] LABS: ALB/GLOB Ratio 0.9 RATIO (0.9-2.4); AST(SGOT) 23 U/L (15-37); Alanine Aminotransfer ALT/SGPT 25 U/L (13-56); Alkaline Phosphatase 77 U/L (45-117); Anion Gap 7 (5-15); BUN 11 mg/dL (7-18); BUN/Creat Ratio 17.2 RATIO (10-20); Bilirubin, Direct 0.27 mg/dL (0.00-0.30); Calcium,Total 8.4 mg/dL (8.5-10.1); Chloride 108 mmol/L (98-107); Cholesterol 136 mg/dL (200); Creatinine, Serum 0.64 mg/dL (0.55-1.02); EST Glomerular Filtration Rate 95 mL/min (>60); Est Glom Filt Rate - Afr Amer 115 mL/min (>60); Globulin 3.3 g/dL (2.2-4.2); Glucose 100 mg/dL (74-106); High Density Lipoprotein 55 mg/dL; Potassium 3.5 mmol/L (3.5-5.1); Protein, Total 6.3 g/dL (6.4-8.2); Sodium Level 144 mmol/L (136-145); Triglycerides 69 mg/dL; Very Low Density Lipoprotein 14 mg/dL (5-40)
--- NOTE | 2019-06-25 05:55 | EKG12_ITS ---
Test Reason : AM EKG Blood Pressure : / mmHG Vent. Rate : 061 BPM Atrial Rate : 061 BPM P-R Int : 184 ms QRS Dur : 092 ms QT Int : 480 ms P-R-T Axes : 062 002 077 degrees QTc Int : 483 ms Normal sinus rhythm ST & T wave abnormality, consider lateral ischemia Prolonged QT Abnormal ECG When compared with ECG of 24-JUN-2019 17:26, MANUAL COMPARISON REQUIRED, DATA IS UNCONFIRMED Confirmed by SILVINA CHEW, NILSON ([id number]), newspaper photo editor MAO MAIER ([id number]) on 06/30/2019 10:05:32 AM Referred By: DR QUINONES Confirmed By:NILSON COOL MD
[2019-06-25 06:22] LABS: Scan Indicated on CBC? Y/N NO
[2019-06-25 06:50] VITALS: BP 144/78; PULSE 69; RESP 18; TEMP 36.4; O2SAT 98
[2019-06-25] MEDS: Carvedilol 3.125 MG TABLET PO (06:58)
[2019-06-25] MEDS: TICAGRELOR 90 MG TABLET PO (06:58)
[2019-06-25] MEDS: Losartan Potassium 50 MG Tablet PO (06:59)
[2019-06-25] MEDS: Isosorbide Mononitrate 60 MG Tablet PO (06:59)
[2019-06-25] MEDS: Ranolazine 500 MG Tablet 1000 MG PO (07:00)
[2019-06-25 07:03] VITALS: PULSE 71
[2019-06-25] MEDS: amLODIPine 2.5 MG Tablet PO (07:03)
[2019-06-25] MEDS: Aspirin 81 MG TAB.CHEW PO (07:03)
[2019-06-25 07:05] LABS: Bedside Glucose 104 mg/dL (70-110)
--- NOTE | 2019-06-25 08:04 | NURSING ---
Called report to Sulema TREVINO in ICU
--- NOTE | 2019-06-25 08:09 | CL.D_ITS ---
Patient Name: DANI JOHNSON Study Date: 06/25/2019 Performing: Yvan Malik MD Ht: 66.14 inches 168 cm : 1940 Wt: 194.01 lbs 88 kg Age: 79 Gender: female BSA: 1.98 PROCEDURE(S) PERFORMED CG63-DLR/COR/LV CLINICAL PROFILE AND INDICATIONS Patient presents with NSTEMI for urgent cardiac cath Indications: New Onset Angina <= 2 months, Worsening Angina, Stable Known CAD, LV Dysfunction Heart Failure: NYHA Class: 1, Heart Failure Type: Systolic, Newly Diagnosed: No Stress/Imaging Stress/Image Study Performed: No Angina Classification Anginal Classification w/in 2 Weeks: CCS IV CAD Presentations: Unstable angina. Non-STEMI. Symptom onset Date/Time: 06/24/2019 Time Not Avail able Other: Dyspnea on exertion Comorbidities/Risk Factors: Hypertension Dyslipidemia Prior PCI Diabetes Mellitus: Diabetes Therapy: Insulin CONCLUSIONS Global LV systolic dysfunction- Mild LVEF: by LV gram 45-50 % Depressed Left Ventricular systolic function - Mild Single vessel CAD of the ostial/proximal LCX in stent restenosis. Non obstructive coronary arteries of LM, LAD and RCA. RECOMMENDATIONS Referred for immediate PCI to Dr Yao at [facility] given high risk nature and proximity to LM and LAD. Suture sheath in place and place on pressure bag. D/w Dr Najma Urbina notified of findings and plan for care. DESCRIPTION OF PROCEDURE The patient arrived to the procedure lab. The risks and benefits of the procedure as well as a full d escription of our services here and current unavailability of surgical backup were fully explained to the patient and/or their significant other prior to the catheterization. The Timeout was completed, verifying the correct patient and procedure. The patient's procedural site was prepped and draped in the usual fashion. Local anesthetic was given subcutaneously to right groin region with Lidocaine 2%. Using a modified Seldinger technique, arterial access was obtained via the right femoral artery, a 4 Fr sheath was inserted Left Coronary Artery selective angiography was performed in multiple views us ing a 4 Fr. JL5 catheter. Right Coronary Artery selective angiography was then performed in multiple views using a 4 Fr. 3DRC catheter. Left Ventriculography was performed in CEE projection using a 4 Fr . Pigtail catheter. LV to AO pullback pressures were then recorded.The arterial sheath was sutured in place with heparinized normal saline under pressure CORONARY ANGIOGRAPHY DOMINANCE: Right Dominant LEFT HEART ASSESSMENT Left Ventricular Ejection Fraction: by LV Gram 45-50 % Global Hypokinesis - Mild Depressed Left Ventricular systolic function LVEDP: 12 mmHg LEFT MAIN: Instent restenosis 10 % LEFT ANTERIOR DESCENDING ARTERY: PROX LAD: Previously placed stent is patent MID LAD: Instent restenosis 20 % DISTAL LAD: Severe calcification CIRCUMFLEX ARTERY: OSTIAL CIRC: Instent restenosis 90 % PROX CIRC: Instent restenosis 85 % RIGHT CORONARY ARTERY: PROX RCA: Moderate calcification RT PLV: Previously placed stent is patent RT PDA: Mid - Previously placed stent is patent COLLATERAL FLOW: Collateral flow from Right to Left COMPLICATIONS No Complications PROCEDURE MEDICATIONS Oxygen: 2 L/min via nasal cannula SUMMARY OF HEMODYNAMIC DATA Time AIR REST ECG 07:24:29 ECG 07:25:55 AO 136/53 (85) SA 07:39:11 LV 139/-9, 14 07:45:32 LV 145/-8, 15 07:45:40 LVp 142/-7, 12 07:45:58 AOp 138/44 (80) 07:46:03 Signed By Yvan Malik MD On 06/25/2019 08:08:47 Yvan Malik MD
--- NOTE | 2019-06-25 09:56 | PCM.DC.SUM ---
Discharge Date and Diagnosis Date of Admission: 06/24/19 Date of Discharge: 06/25/19 - Primary Discharge Diagnosis Active and Suspected Problems (Last Reviewed 12/19/18 @ 11:18 by Genet Barger) Chest pain (Acute) Elevated troponin (Acute) - Secondary Discharge Diagnosis Chronic Problems (Last Reviewed 12/19/18 @ 11:18 by Genet Barger) Non-rheumatic mitral regurgitation (Chronic) Nonrheumatic tricuspid valve regurgitation (Chronic) Essential hypertension (Chronic) Thrombocytopenia (Chronic) CAD (coronary artery disease) (Chronic) History of spinal fusion (Chronic) anterior Non-rheumatic aortic stenosis (Chronic) History of coronary artery stent placement (Chronic 06/25/19) PTCA-ostial/prox LCx @ [facility] 11/09/2017 PTCA-Cutting Balloon Atherectomy w/ placement of 2.5 x 20 mm Synergy Stent, Distal LM-into the Ostium of LAD Stented w/ 4.0 x 16 mm Synergy Stent 06/2017PTCA-OM 04/2017 PCI-LAD with a 2.75x38 Promus Premier drug eluting stent. 12/15/13 RAYMON of Right Posterior Lateral (Mid) wIth 3.0 x 2.8 Cypher, followed upstream with 3.0 x 8 Cypher, RAYMON of Right PDA (Ostial) with 25 x 28 Cypher 09/17/2007; 06/25/2019:LVEF: by LV gram 45-50 % Depressed Left Ventricular systolic function - Mild; Single vessel CAD of the ostial/proximal LCX in stent restenosis. Non obstructive coronary arteries of LM, LAD and RCA. Referred for immediate PCI to Dr Yao at [facility] given high risk nature and proximity to LM and LAD. Chronic systolic (congestive) heart failure (Chronic) Schizophrenia (Chronic) S/P PTCA (percutaneous transluminal coronary angioplasty) (Chronic ~11/09/17) PCI of ostial and mid LCX in-stent restenosis with laser atherectomy, balloon angioplasty per Dr. Rodriguez [facility] 08/20/18 PCI PTCA and laser atherectomy of proximal Circumflex 02/03/2018 PTCA-ostial/prox LCx @ [facility] 11/09/2017 PTCA-Cutting Balloon Atherectomy w/ placement of 2.5 x 20 mm Synergy Stent, Distal LM-into the Ostium of LAD Stented w/ 4.0 x 16 mm Synergy Stent 06/2017PTCA-OM 04/2017 PCI-LAD with a 2.75x38 Promus Premier drug eluting stent. 12/15/13 RAYMON of Right Posterior Lateral (Mid) wIth 3.0 x 2.8 Cypher, followed upstream with 3.0 x 8 Cypher, RAYMON of Right PDA (Ostial) with 25 x 28 Cypher 09/17/2007 History of coronary artery stent placement (Chronic) Atherosclerotic heart disease [place] coronary artery w/angina pectoris (Chronic) PCI of ostial and mid LCX in-stent restenosis with laser atherectomy, balloon angioplasty per Dr. Rodriguez [facility] 08/20/18 PCI PTCA and laser atherectomy of proximal Circumflex 02/03/2018 PTCA-ostail/prox LCx @ [facility] 11/09/2017 PTCA-Cutting Balloon Atherectomy w/ placement of 2.5 x 20 mm Synergy Stent, Distal LM-into the Ostium of LAD Stented w/ 4.0 x 16 mm Synergy Stent 06/2017PTCA-OM 04/2017 PCI-LAD with a 2.75x38 Promus Premier drug eluting stent. 12/15/13 RAYMON of Right Posterior Lateral (Mid) wIth 3.0 x 2.8 Cypher, followed upstream with 3.0 x 8 Cypher, RAYMON of Right PDA (Ostial) with 25 x 28 Cypher 09/17/2007 Pancytopenia (Chronic) Hypothyroidism (Chronic) Hyperlipidemia (Chronic) Diabetes mellitus, type II (Chronic) Venous insufficiency (Chronic) NSTEMI (non-ST elevated myocardial infarction) (Chronic ~09/16/17) Intermittent claudication (Chronic) Obesity (BMI 30.0-34.9) (Chronic) Hospital Course and Treatment Imaging Results: Diagnostic Data Chest X-Ray 06/24/19 14:45 IMPRESSION: No acute abnormalities. Electronically Signed: Jasiel Luna, at 15:11 EST , Service support , cardiology- dr Malik Operations: None Procedures: Cardiac catheterization Summary of Care Provided: The patient is a 79 year old F with an extensive past medical history as listed. History includes CAD status post angioplasty of her LAD in 2013 followed by non-STEMI in July 2017 when she was transferred to [facility] and had angioplasty and stenting of her distal left main into the ostium of the LAD. In November 2017 she had non-STEMI and underwent diagnostic cardiac cath which showed left main coronary artery with mild disease. February 2019 she was also seen with unstable angina and repeat cath showed a critical in-stent stenosis was transferred to [facility] where she had successful laser atherectomy of the left mid circumflex in-stent restenosis followed by angioplasty. She was admitted through the ED on 06/24/2019 with a complaint of chest pain and shortness of breath. She had presented to an urgent care center for the symptoms and said her shortness of breath was relieved by sublingual nitroglycerin. On admission, initial troponin was 0.067 and this gradually trended up to a peak of 0.085 and trended down slightly to 0.072. EKG showed no acute EKG changes. She was admitted to be managed for nonstemi. Cardiology was consulted in light of her extensive cardiac history. She had cardiac cath on 06/25/2019 which demonstrated single-vessel coronary artery disease of the ostial and proximal left circumflex with in-stent restenosis. Per cardiology recommendation, she was referred for immediate PCI to Dr. Yao at [facility] giving her high risk nature and proximity to left marginal and LAD. She was transferred to [facility] on 06/25/19. Patient was seen and examined in the [facility] prior to transfer to [facility]. She felt well and had no complaints. Review of systems otherwise negative. Labs and vitals reviewed. [] o/e: Vital Signs Height 5 ft 6 in Weight: 194 lb 10.691 oz Weight in Pounds 194.7 lbs Pulse Ox 98 Temperature 97.5 F Pulse Rate 71 Respiratory Rate 18 Blood Pressure 144/78 Blood Pressure Position Semi-Fowlers - Physical Exam Vitals/I&O's: Vital Signs Temp Pulse Resp BP Pulse Ox 97.5 F L 71 18 144/78 H 98 06/25/19 06:50 06/25/19 07:03 06/25/19 06:50 06/25/19 06:50 06/25/19 06:50 Oxygen Flow Rate (L/min) 2 Oxygen Delivery Method Room Air Weight: 194 lb 10.691 oz Body Mass Index (BMI) 31.4 Finger Stick Blood Glucose 270 General: Alert, Oriented x3, Cooperative, No apparent distress HEENT: Atraumatic, PERRLA, EOMI, Normocephalic Oral: Moist Mucosa Neck: Supple, No JVD, Negative Carotid Bruits Lungs: Clear to auscultation, Normal air movement, No rhonchi, No wheeze, No rales Cardiovascular: Regular rate, Regular Rhythm, Normal S1, Normal S2, No murmurs Abdomen: Bowel Sounds Present, Soft, Non Tender, Non-Distended, No Hepato-splenomegaly Extremities: No clubbing, No cyanosis, No edema, Capillary Refill Less than 3 Seconds Skin: No rashes, No breakdown Musculoskeletal: No Tenderness to Palpation of Joints or Extremities, - - sheath in right groin Lymphatic: No Cervical, Supraclavicular, or Inguinal Adenopathy Neurological: Cranial nerves II-XII grossly intact, Neuro grossly intact, Motor Exam 5/5 strength throughout Psych/Mental Status: Normal Affect, Appropriate, Alert and oriented to time, place, person, mood and affect Laboratory Results 06/24/19 15:14: WBC 2.5 L, RBC 3.06 L, Hgb 9.8 L, Hct 30.0 L, MCV 98.0, MCH 32.0, MCHC 32.7, RDW Std Deviation 47.7 H, RDW Coeff of Conchis 13.3, Plt Count 108 L, MPV 9.7, Immature Gran % (Auto) 0.000, Neut % (Auto) 56.1, Lymph % (Auto) 31.3, [place] % (Auto) 7.7, Eos % (Auto) 3.7, Baso % (Auto) 1.2 H, Absolute Neuts (auto) 1.4 L, Absolute Lymphs (auto) 0.77 L, Nucleated RBC % 0 06/24/19 15:14: Sodium 139, Potassium 3.8, Chloride 104, Carbon Dioxide 30.0, Anion Gap 5, BUN 14, Creatinine 0.96, Estim Creat Clear Calc 42.06, Est GFR (MDRD) Af Amer 72, Est GFR (MDRD) Non-Af 60, BUN/Creatinine Ratio 14.6, Glucose 418 H, Calcium 9.0, Troponin I 0.067 H 06/24/19 18:48: Troponin I 0.067 H 06/24/19 21:54: Troponin I 0.085 H 06/24/19 21:54: Magnesium 2.1 06/24/19 22:25: POC Glucose 272 H 06/25/19 04:38: WBC 2.3 L, RBC 2.95 L, Hgb 9.5 L, Hct 28.5 L, MCV 96.6, MCH 32.2 H, MCHC 33.3, RDW Std Deviation 46.6 H, RDW Coeff of Conchis 13.1, Plt Count 96 L, MPV 9.4 06/25/19 04:38: Sodium 144, Potassium 3.5, Chloride 108 H, Carbon Dioxide 29.0, Anion Gap 7, BUN 11, Creatinine 0.64, Estim Creat Clear Calc 42.00, Est GFR (MDRD) Af Amer 115, Est GFR (MDRD) Non-Af 95, BUN/Creatinine Ratio 17.2, Glucose 100, Calcium 8.4 L, Total Bilirubin 0.80, Direct Bilirubin 0.27, AST 23, ALT 25, Alkaline Phosphatase 77, Troponin I 0.072 H, Total Protein 6.3 L, Albumin 3.0 L, Globulin 3.3, Albumin/Globulin Ratio 0.9, Triglycerides 69, Cholesterol 136, LDL Cholesterol 67, VLDL Cholesterol 14, HDL Cholesterol 55, TSH 2.90 06/25/19 06:56: POC Glucose 104 Current Medications Acetaminophen (Tylenol) 650 mg PO Q6H PRN PRN PRN Reason: Non-cardiac pain (-05/15) Al Hydroxide/Mg Hydroxide (Mylanta Ii) 15 - 30 ml PO Q4H PRN PRN PRN Reason: INDIGESTION Amlodipine Besylate (Norvasc) 2.5 mg PO DAILY [facility] Last Admin: 06/25/19 07:03 Dose: 2.5 mg Documented by: Aspirin (Aspirin, Baby) 81 mg PO DAILY@0800 [facility] Last Admin: 06/25/19 07:03 Dose: 81 mg Documented by: Carvedilol (Coreg) 3.125 mg PO BID [facility] Last Admin: 06/25/19 06:58 Dose: 3.125 mg Documented by: Dextrose (D50w Syringe) 0 gm IV X1 PRN; Protocol PRN Reason: Hypoglycemia Folic Acid (Folic Acid) 0.5 mg PO DAILY@0800 [facility] Furosemide (Lasix) 40 mg PO BID@1000,1800 [facility] Glucagon () 1 mg IM .X1 PRN PRN Reason: Hypoglycemia Heparin Sodium (Beef Lung) (Heparin 500 Unit/5 Ml (100/Ml)) 500 unit IV UD PRN PRN Reason: HEPARIN FLUSH Heparin Sodium (Porcine) (Heparin Na) 5,000 unit SC Q8 [facility] Last Admin: 06/25/19 05:26 Dose: Not Given Documented by: Hydralazine HCl (Apresoline Iv) 10 mg IV Q4H PRN PRN PRN Reason: SBP > 160 Insulin Glargine (Lantus (Bkc)) 34 units SC BREAKFAST [facility] Insulin Human Lispro (Humalog Kwikpen ([facility])) 6 unit SC TIDAC [facility] Insulin Human Lispro (Humalog Kwikpen ([facility])) 0 unit SC ACHS [facility]; Protocol Last Admin: 06/25/19 07:35 Dose: Not Given Documented by: Isosorbide Mononitrate (Imdur) 60 mg PO DAILY [facility] Last Admin: 06/25/19 06:59 Dose: 60 mg Documented by: Labetalol HCl (Trandate) 5 mg IV X1 PRN PRN Reason: SBP > 160 prior to sheath pull Stop: 06/27/19 07:52 Levothyroxine Sodium (Synthroid) 100 mcg PO DAILY@0600 [facility] Last Admin: 06/25/19 05:25 Dose: 100 mcg Documented by: Losartan Potassium (Cozaar) 50 mg PO DAILY [facility] Last Admin: 06/25/19 06:59 Dose: 50 mg Documented by: Magnesium Hydroxide (Milk Of Magnesia) 30 ml PO DAILY PRN PRN Reason: Constipation Metolazone (Zaroxolyn) 2.5 mg PO X1 ONE Stop: 06/25/19 10:01 Morphine Sulfate () 1 - 2 mg IV Q4H PRN PRN PRN Reason: Pain Score 1-10/10 Nitroglycerin (Nitrostat) 0.4 mg SUBLINGUAL Q5M PRN PRN Reason: CHEST PAIN Potassium Chloride (K-Dur) 20 meq PO DAILYCM [facility] Pravastatin Sodium (Pravachol) 80 mg PO QHS [facility] Last Admin: 06/24/19 22:29 Dose: 80 mg Documented by: Ranolazine (Ranexa) 1,000 mg PO BID [facility] Last Admin: 06/25/19 07:00 Dose: 1,000 mg Documented by: Sodium Chloride () 10 - 40 ml IV UD PRN PRN Reason: SALINE FLUSH Ticagrelor (Brilinta) 90 mg PO BID [facility] Last Admin: 06/25/19 06:58 Dose: 90 mg Documented by: Tramadol HCl (Ultram) 50 mg PO Q6H PRN PRN PRN Reason: pain (4-05/15) Last Admin: 06/24/19 23:01 Dose: 50 mg Documented by: Home Medications: Medications to take at Discharge Aspirin [Aspirin, Baby] 81 mg PO DAILY@0800 06/30/17 Nitroglycerin [Nitrostat] 0.4 mg SL PRN PRN 06/30/17 Multivitamins,Therapeutic [Multivitamin] 1 tab PO DAILY 02/01/18 Levothyroxine Sodium [Synthroid] 100 mcg PO DAILY 06/21/18 ascorbic acid (vitamin C) 500 mg tablet 500 mg PO DAILY 09/13/18 insulin U-100 regular human 100 unit/mL injection solution 5 - 10 unit SC TID ml 09/13/18 amlodipine 2.5 mg tablet 2.5 mg PO DAILY #30 tab 10/03/18 losartan 50 mg tablet 50 mg PO DAILY #30 tab 10/03/18 pravastatin 80 mg tablet 80 mg PO DAILY #30 tab 10/03/18 ranolazine ER 1,000 mg tablet,extended release,12 hr 1,000 mg PO BID #60 tab 10/03/18 ticagrelor 90 mg tablet 90 mg PO BID #60 tab 10/03/18 Insulin Glargine,Hum.rec.anlog [Torola Bejarano] 34 unit SC DAILY 04/23/19 Potassium Chloride [K-Dur] 20 meq PO DAILY #30 tab 04/23/19 Carvedilol [Coreg] 3.125 mg PO BIDCM 06/24/19 Cholecalciferol (Vitamin D3) [Vitamin D3] 5,000 unit PO DAILY 06/24/19 Fluphenazine Decanoate 12.5 mg IJ UD 06/24/19 Folic Acid 0.4 mg PO DAILY@0800 06/24/19 Furosemide 40 mg PO BID 06/24/19 Isosorbide Mononitrate [Imdur] 60 mg PO DAILY 06/24/19 Metolazone 2.5 mg PO WE 06/24/19 Other Amb Orders: Phase II, Outpatient Cardiac Rehab Location: None Selected Primary Care Physician: Diana Cohen MD [Primary Care Provider] - Please follow up with your Primary Care Physician in: 1-2 weeks Disposition: Acute care Hospital Minutes spent on discharge:: 40 Patient Condition:: Stable Medical Necessity - Tobacco Use Smoking Status: Never smoker Tobacco Use: Non-smoker Meaningful Use Info Meaningful Use Diagnoses (Choose all that apply): AMI - AMI Aspirin given w/in 24hrs of arrival?: Yes ASA at discharge?: Yes Statins at discharge?: Yes Grupo/ARB at discharge?: Yes Beta Slade at discharge?: Yes Done w/ Acute UT measure.: Yes Documented LVEF (%): 45 Code Visit OBSV E&M: 92407 Observation care discharge
== END 2019-06-25 11:19 | disposition short-term general hospital (02) ==
LOC: ED 16:54 → PCU 17:05 → ICU 06-25 08:13
PROVIDERS: Family Medicine; Admitting Provider Internal Medicine; Emergency Provider Emergency Medicine; Family Provider Internal Medicine; PCP Internal Medicine; Visit Provider Student in an Organized Health Care Education/Training Program
DX: I21.4 Non-ST elevation (NSTEMI) myocardial infarction (principal); E78.5 Hyperlipidemia, unspecified; E03.9 Hypothyroidism, unspecified; F20.9 Schizophrenia, unspecified; I25.2 Old myocardial infarction; I25.110 Atherosclerotic heart disease of native coronary artery with unstable angina pectoris; T82.858A Stenosis of other vascular prosthetic devices, implants and grafts, initial encounter; I11.0 Hypertensive heart disease with heart failure; I50.9 Heart failure, unspecified; K75.81 Nonalcoholic steatohepatitis (NASH); K74.60 Unspecified cirrhosis of liver; E66.9 Obesity, unspecified; E11.51 Type 2 diabetes mellitus with diabetic peripheral angiopathy without gangrene; D61.818 Other pancytopenia; Z79.899 Other long term (current) drug therapy; Y71.8 Miscellaneous cardiovascular devices associated with adverse incidents, not elsewhere classified; Z79.82 Long term (current) use of aspirin; Z79.4 Long term (current) use of insulin; Z68.31 Body mass index [BMI] 31.0-31.9, adult; Z71.3 Dietary counseling and surveillance
CPT/HCPCS: 36415; 71045; 80048; 80053; 80061; 82248; 82962; 83735; 84443; 84484; 85025; 85027; 93005; 93458; 96372; 99218; 99251; 99285; J7040; A4216; C1769; C1894; G0378; G0463; Q9967

== ENCOUNTER 2019-07-24 19:22 | Inpatient (IN) | payer MEDICARE, MEDICAID, SELFPAY ==
[2019-07-24] VITALS (7 sets, daily range): BP systolic 128–159; BP diastolic 53–88; PULSE 73–94; RESP 13–18; TEMP 36.4–36.7; O2SAT 94–99; BMI 34.0; BMI 31.6
--- NOTE | 2019-07-24 20:28 | RAD_ITS ---
STUDY: X-RAY CHEST REASON FOR EXAM: Female, 79 years old. Chest pain TECHNIQUE: Single AP portable view of the chest. COMPARISON: 06/24/2019 FINDINGS: The lungs are clear and expanded. There is no demonstrated pleural abnormality. Normal size heart. Normal mediastinum and rell. Normal visualized pulmonary arteries. Normal visualized aortic arch and descending thoracic aorta. Normal visualized thoracic spine. Normal visualized ribs, clavicles, and shoulders. There is no demonstrated abnormality of the visualized soft tissue structures of the upper abdomen. RAD/Chest 1 View (Portable) IMPRESSION: Normal x-ray examination of the chest. Electronically Signed: Jhoan Myers DO at 20:57 EST Tel , Service support ,
--- NOTE | 2019-07-24 20:28 | EKG12_ITS ---
Test Reason : CP Blood Pressure : / mmHG Vent. Rate : 085 BPM Atrial Rate : 085 BPM P-R Int : 188 ms QRS Dur : 092 ms QT Int : 356 ms P-R-T Axes : 073 -10 213 degrees QTc Int : 423 ms Normal sinus rhythm Marked ST abnormality, possible inferior subendocardial injury Marked ST abnormality, possible anterior subendocardial injury Abnormal ECG Confirmed by NILSON COOL MD ([id number]), editor at large LAURIE MCCLELLAND ([id number]) on 07/28/2019 11:34:23 AM Referred By: Reji Galindo Confirmed By:NILSON COOL MD
[2019-07-24 20:41] LABS: Absolute Lymphocyte Count 0.77 X10^3/uL (0.83-4.51); Absolute Neutrophil Count 1.4 X10^3/uL (2.0-7.7); Basophil# 0.01 X10^3/uL; Basophil% 0.4 % (0-1); Eosinophil# 0.05 X10^3/uL; Eosinophils% 2.1 % (0-5); Hematocrit 29.8 % (37-47); Hemoglobin 9.7 g/dL (12.0-15.0); Lymphocyte # 0.77 X10^3/ul (4.0); Mean Corp Hgb Conc 32.6 g/dL (32-36); Mean Corpuscular Hgb 32.1 pg (27.0-32.0); Mean Corpuscular Volume 98.7 fL (81-99); Mean Platelet Vol. 10.2 fl (6.2-12.0); Monocyte# 0.16 X10^3/uL; Monocyte% 6.6 % (0-10); NRBC Flagged by Analyzer 0 % (0-5); Neutrophil # 1.41 X10^3/uL (2.7-7.7); Neutrophil % 58.5 % (47-70); Platelet Count 120 K/mm3 (150-450); RBC Distribution Width CV 13.5 % (11.6-14.6); RBC Distribution Width SD 48.3 fl (35.1-43.9); Red Blood Count 3.02 M/mm3 (4.2-5.4); White Blood Count 2.4 K/mm3 (4.4-11.0)
[2019-07-24] MEDS: 0.9% Normal Saline 1,000 ML 150 ML IV (20:41)
[2019-07-24] MEDS: Nitroglycerin SL (ED/IMG/CATH) 0.4 MG TABLET SUBLINGUAL (20:45)
[2019-07-24 21:00] LABS: Anion Gap 6 (5-15); BUN 16 mg/dL (7-18); BUN/Creat Ratio 16.9 RATIO (10-20); Calcium,Total 8.6 mg/dL (8.5-10.1); Chloride 108 mmol/L (98-107); Creatinine, Serum 0.95 mg/dL (0.55-1.02); EST Glomerular Filtration Rate 60 mL/min (>60); Est Glom Filt Rate - Afr Amer 73 mL/min (>60); Estimated Creatinine Clearance 44.21 ml/min; Glucose 224 mg/dL (74-106); Potassium 3.9 mmol/L (3.5-5.1); Sodium Level 144 mmol/L (136-145)
--- NOTE | 2019-07-24 21:27 | ED.DCSUM_ITS ---
- ER Visit Summary Date of Service: 07/24/19 Chief Complaint: [Chest pain] History of Present Illness: The patient is a 79 F [presents to the emergency department complaint of chest pain for the last 2 days. Patient states that she has been taking nitroglycerin at home and it has helped with her discomfort but today did not help so she called the squad to bring her in. Patient states that she received a nitro by EMS on the way to the hospital and that seemed to help her discomfort somewhat now rates her pain about a 6 out of 10. Patient states that she was admitted to this hospital about a month ago with complaint of chest pain and had a heart catheterization and she states that she was then transferred with the sheath in place over 2 [facility] however once there no further intervention was undertaken. Patient states that she is not a surgical candidate. Patient states that I told her she would be medical management. Patient also has had a cough and cold symptoms for several days and is currently on doxycycline. Patient has history of diabetes, hypertension, prior NV, high cholesterol. Patient has had multiple cardiac stents.] Physical Examination: [HEENT-PERRLA, EOMI. Cranial nerves II through XII grossly intact. TMs clear. Mucous membranes moist. No adenopathy. Cardiovascular-regular rate and rhythm without murmur or ectopy Lungs-clear to auscultation, chest wall stable without crepitus or subcu emphysema Abdomen-normoactive bowel sounds, soft, nontender, no rebound or rigidity, no peritoneal signs. Extremities-intact ?4, normal range of motion, normal pulses, atraumatic] Test Results: [EKG obtained arrival showed a sinus rhythm with a ventricular rate of 86 bpm with some subtle ST depression in V3 V4, V5, and V6. When compared with prior EKG from June 25 these changes appear to be somewhat chronic. CBC with differential obtained showed regular 2.4, hemoglobin 9.7, hematocrit 30, platelets 120. Chemistries unremarkable. Troponin was 0.56 which is more elevated than her prior troponins. Patient always seems to have a slight elevation in troponin however.] Emergency Department Course and Treatment: [Patient received a nitroglycerin tablet in the emergency department and is currently pain-free. Patient was placed on alarm security or surveillance monitor and had an IV line established with normal saline.] Treatment Plan: [Admit] Disposition: [Admit] Impression: [Chest pain-rule out acute coronary syndrome] This note was generated with Figure [employer] dictation software. It may contain incorrect words, spelling, and punctuation that were not noted in review of the chart prior to signing ED Disposition - Plan for ED Patient: Referrals: Diana Cohen MD [Primary Care Provider] -
--- NOTE | 2019-07-24 21:33 | HP.PCM_ITS ---
Problem List (1) NSTEMI (non-ST elevated myocardial infarction) Status: Acute (2) Chest pain Status: Acute (3) URI Status: Acute (4) Atypical chest pain Status: Acute (5) Non-rheumatic mitral regurgitation Status: Chronic (6) Nonrheumatic tricuspid valve regurgitation Status: Chronic (7) Essential hypertension Status: Chronic (8) Elevated troponin Status: Acute (9) Thrombocytopenia Status: Chronic (10) CAD (coronary artery disease) Status: Chronic Qualifiers: Coronary Disease-Associated Artery/Lesion type: [place] artery [place] vs. transplanted heart: [place] heart Associated angina: without angina Qualified Code(s): I25.10 - Atherosclerotic heart disease of [place] coronary artery without angina pectoris (11) History of spinal fusion Status: Chronic Comment: anterior (12) Non-rheumatic aortic stenosis Status: Chronic (13) History of coronary artery stent placement Status: Chronic Comment: PTCA-ostial/prox LCx @ [facility] 11/09/2017 PTCA-Cutting Balloon Atherectomy w/ placement of 2.5 x 20 mm Synergy Stent, Distal LM-into the Ostium of LAD Stented w/ 4.0 x 16 mm Synergy Stent 06/2017PTCA-OM 04/2017 PCI-LAD with a 2.75x38 Promus Premier drug eluting stent. 12/15/13 RAYMON of Right Posterior Lateral (Mid) wIth 3.0 x 2.8 Cypher, followed upstream wi th 3.0 x 8 Cypher, RAYMON of Right PDA (Ostial) with 25 x 28 Cypher 09/17/2007; 06/25/2019:LVEF: by LV gram 45-50 % Depressed Left Ventricular systolic function - Mild; Single vessel CAD of the ostial/proximal LCX in stent restenosis. Non obstructive coronary arteries of LM, LAD and RCA. Referred for immediate PCI to Dr Yao at [facility] given high risk nature and proximity to LM and LAD. (14) Chronic systolic (congestive) heart failure Status: Chronic (15) Schizophrenia Status: Chronic Qualifiers: Schizophrenia type: unspecified Qualified Code(s): F20.9 - Schizophrenia, unspecified (16) S/P PTCA (percutaneous transluminal coronary angioplasty) Status: Chronic Comment: PCI of ostial and mid LCX in-stent restenosis with laser atherectomy, balloon angioplasty per Dr. Rodriguez [facility] 08/20/18 PCI PTCA and laser atherectomy of proximal Circumflex 02/03/2018 PTCA-ostial/prox LCx @ [facility] 11/09/2017 PTCA-Cutting Balloon Atherectomy w/ placement of 2.5 x 20 mm Synergy Stent, Distal LM-into the Ostium of LAD Stented w/ 4.0 x 16 mm Synergy Stent 06/2017PTCA-OM 04/2017 PCI-LAD with a 2.75x38 Promus Premier drug eluting stent. 12/15/13 RAYMON of Right Posterior Lateral (Mid) wIth 3.0 x 2.8 Cypher, followed upstream with 3.0 x 8 Cypher, RAYMON of Right PDA (Ostial) with 25 x 28 Cypher 09/17/2007 (17) History of coronary artery stent placement Status: Chronic (18) Atherosclerotic heart disease [place] coronary artery w/angina pectoris Status: Chronic Qualifiers: [place] vs. transplanted heart: [place] heart Qualified Code(s): I25.119 - Atherosclerotic heart disease of [place] coronary artery with unspecified angina pectoris Comment: PCI of ostial and mid LCX in-stent restenosis with laser atherectomy, balloon angioplasty per Dr. Rodriguez [facility] 08/20/18 PCI PTCA and laser atherectomy of proximal Circumflex 02/03/2018 PTCA-ostail/prox LCx @ [facility] 11/09/2017 PTCA-Cutting Balloon Atherectomy w/ placement of 2.5 x 20 mm Synergy Stent, Distal LM-into the Ostium of LAD Stented w/ 4.0 x 16 mm Synergy Stent 06/2017PTCA-OM 04/2017 PCI-LAD with a 2.75x38 Promus Premier drug eluting stent. 12/15/13 RAYMON of Right Posterior Lateral (Mid) wIth 3.0 x 2.8 Cypher, followed upstream with 3.0 x 8 Cypher, RAYMON of Right PDA (Ostial) with 25 x 28 Cypher 09/17/2007 (19) Pancytopenia Status: Chronic (20) Hypothyroidism Status: Chronic Qualifiers: Hypothyroidism type: unspecified Qualified Code(s): E03.9 - Hypothyroidism, unspecified (21) Hyperlipidemia Status: Chronic Qualifiers: Hyperlipidemia type: unspecified Qualified Code(s): E78.5 - Hyperlipidemia, unspecified (22) Diabetes mellitus, type II Status: Chronic Qualifiers: Diabetes mellitus extermination inspector insulin use: with extermination inspector use Diabetes mellitus complication status: with unspecified complications (23) Venous insufficiency Status: Chronic (24) NSTEMI (non-ST elevated myocardial infarction) Status: Chronic (25) Intermittent claudication Status: Chronic (26) Obesity (BMI 30.0-34.9) Status: Chronic (27) NSTEMI (non-ST elevated myocardial infarction) Status: Acute History of Present Illness Date of Admission: 07/24/19 Chief Complaint: CHEST PAIN The patient is a 79 year old F with a significant history of hypertension; hy pothyroidism; hyperlipidemia who presented to emergency department with chest pain. Her chest pain started a day before presentation. Her chest pain is located under her left breast and also to the substernal area. It radiates to her epigastric area. The intensity of the pain is 9 out of 10. The pain is sharp; dull and burning. Nitroglycerin gives her relief but the relief is not long acting up. She has been taking increased amounts of nitroglycerin tablets. On the way to the hospital she received some nitroglycerin by the [facility] that help her chest pain bringing the pain level to 6 out of 10. However at the emergency department the pain came back. Patient was seen last month by mail reader Dr. Malik. Heart cath showed single-vessel CAD of the ostial/proximal left circumflex in-stent restenosis. Patient was transferred to [facility] where she saw Dr. Yao and a cardiac sheath placed in our hospital ([facility]) pulled out. Patient was told that she was not a candidate for any percutaneous intervention because of increased risk. Past Medical History Past Medical History (Chronic Problems): Chronic Problems (Last Reviewed 07/25/19 @ 09:00 by Reji Galindo MD) Non-rheumatic mitral regurgitation (Chronic) Nonrheumatic tricuspid valve regurgitation (Chronic) Essential hypertension (Chronic) Thrombocytopenia (Chronic) CAD (coronary artery disease) (Chronic) History of spinal fusion (Chronic) anterior Non-rheumatic aortic stenosis (Chronic) History of coronary artery stent placement (Chronic 06/25/19) PTCA-ostial/prox LCx @ [facility] 11/09/2017 PTCA-Cutting Balloon Atherectomy w/ placement of 2.5 x 20 mm Synergy Stent, Distal LM-into the Ostium of LAD Stented w/ 4.0 x 16 mm Synergy Stent 06/2017PTCA-OM 04/2017 PCI-LAD with a 2.75x38 Promus Premier drug eluting stent. 12/15/13 RAYMON of Right Posterior Lateral (Mid) wIth 3.0 x 2.8 Cypher, followed upstream with 3.0 x 8 Cypher, RAYMON of Right PDA (Ostial) with 25 x 28 Cypher 09/17/2007; 06/25/2019:LVEF: by LV gram 45-50 % Depressed Left Ventricular systolic function - Mild; Single vessel CAD of the ostial/proximal LCX in stent restenosis. Non obstructive coronary arteries of LM, LAD and RCA. Referred for immediate PCI to Dr Yao at [facility] given high risk nature and proximity to LM and LAD. Chronic systolic (congestive) heart failure (Chronic) Schizophrenia (Chronic) S/P PTCA (percutaneous transluminal coronary angioplasty) (Chronic ~11/09/17) PCI of ostial and mid LCX in-stent restenosis with laser atherectomy, balloon angioplasty per Dr. Rodriguez [facility] 08/20/18 PCI PTCA and laser atherectomy of proximal Circumflex 02/03/2018 PTCA-ostial/prox LCx @ [facility] 11/09/2017 PTCA-Cutting Balloon Atherectomy w/ placement of 2.5 x 20 mm Synergy Stent, Distal LM-into the Ostium of LAD Stented w/ 4.0 x 16 mm Synergy Stent 06/2017PTCA-OM 04/2017 PCI-LAD with a 2.75x38 Promus Premier drug eluting stent. 12/15/13 RAYMON of Right Posterior Lateral (Mid) wIth 3.0 x 2.8 Cypher, followed upstream with 3.0 x 8 Cypher, RAYMON of Right PDA (Ostial) with 25 x 28 Cypher 09/17/2007 History of coronary artery stent placement (Chronic) Atherosclerotic heart disease [place] coronary artery w/angina pectoris (Chronic) PCI of ostial and mid LCX in-stent restenosis with laser atherectomy, balloon angioplasty per Dr. Rodriguez [facility] 08/20/18 PCI PTCA and laser atherectomy of proximal Circumflex 02/03/2018 PTCA-ostail/prox LCx @ [facility] 11/09/2017 PTCA-Cutting Balloon Atherectomy w/ placement of 2.5 x 20 mm Synergy Stent, Distal LM-into the Ostium of LAD Stented w/ 4.0 x 16 mm Synergy Stent 06/2017PTCA-OM 04/2017 PCI-LAD with a 2.75x38 Promus Premier drug eluting stent. 12/15/13 RAYMON of Right Posterior Lateral (Mid) wIth 3.0 x 2.8 Cypher, followed upstream with 3.0 x 8 Cypher, RAYMON of Right PDA (Ostial) with 25 x 28 Cypher 09/17/2007 Pancytopenia (Chronic) Hypothyroidism (Chronic) Hyperlipidemia (Chronic) Diabetes mellitus, type II (Chronic) Venous insufficiency (Chronic) NSTEMI (non-ST elevated myocardial infarction) (Chronic ~09/16/17) Intermittent claudication (Chronic) Obesity (BMI 30.0-34.9) (Chronic) Medical History: Medical History (Last Reviewed 07/25/19 @ 09:00 by Reji Galindo MD) Non-rheumatic mitral regurgitation (Chronic) I34.0 Nonrheumatic tricuspid valve regurgitation (Chronic) I36.1 Essential hypertension (Chronic) I10 Non-rheumatic aortic stenosis (Chronic) I35.0 Chronic systolic (congestive) heart failure (Chronic) I50.22 Schizophrenia (Chronic) F20.9 Atherosclerotic heart disease [place]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 Rodriguez [facility] 08/20/18 PCI PTCA and laser atherectomy of proximal Circumflex 02/03/2018 PTCA-ostail/prox LCx @ [facility] 11/09/2017 PTCA-Cutting Balloon Atherectomy w/ placement of 2.5 x 20 mm Synergy Stent, Distal LM-into the Ostium of LAD Stented w/ 4.0 x 16 mm Synergy Stent 06/2017PTCA-OM 04/2017 PCI-LAD with a 2.75x38 Promus Premier drug eluting stent. 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) K75.81, K74.60 CHF (congestive heart failure) (Inactive) I50.9 Hypertension (Inactive) I10 Mitral valve insufficiency (Inactive) I34.0 Tricuspid valve insufficiency (Inactive) I07.1 Allergies aripiprazole [From Abilify] Allergy (Intermediate, Verified 07/24/19 19:24) it over powered me lisinopril Allergy (Intermediate, Verified 07/24/19 19:24) Unknown atorvastatin calcium [From Lipitor] Adverse Reaction (Verified 07/24/19 19:24) Unknown rosiglitazone maleate [From Avandia] Adverse Reaction (Verified 07/24/19 19:24) Other Home Medications: Ambulatory Orders Medication Instructions Recorded Aspirin [Aspirin, Baby] 81 mg PO DAILY@0800 06/30/17 Nitroglycerin [Nitrostat] 0.4 mg SL PRN PRN 06/30/17 Multivitamins,Therapeutic 1 tab PO DAILY 02/01/18 [Multivitamin] ascorbic acid (vitamin C) 500 mg 500 mg PO DAILY 09/13/18 tablet insulin regular human 100 unit/mL 5 - 10 unit SC TID ml 09/13/18 injection solution amlodipine 2.5 mg tablet 2.5 mg PO DAILY #30 tab 10/03/18 losartan 50 mg tablet 50 mg PO DAILY #30 tab 10/03/18 pravastatin 80 mg tablet 80 mg PO DAILY #30 tab 10/03/18 ranolazine 1,000 mg 1,000 mg PO BID #60 tab 10/03/18 tablet,extended release,12 hr ticagrelor 90 mg tablet 90 mg PO BID #60 tab 10/03/18 Insulin Glargine,Hum.rec.anlog 34 unit SC DAILY 04/23/19 [Soha Bejarano] Potassium Chloride [K-Dur] 20 meq PO DAILY #30 tab 04/23/19 Carvedilol [Coreg] 3.125 mg PO BIDCM 06/24/19 Cholecalciferol (Vitamin D3) 5,000 unit PO DAILY 06/24/19 [Vitamin D3] Folic Acid 0.4 mg PO DAILY@0800 06/24/19 Furosemide 40 mg PO BID 06/24/19 Isosorbide Mononitrate [Imdur] 60 mg PO DAILY 06/24/19 Metolazone 2.5 mg PO WE 06/24/19 Doxycycline Hyclate 100 mg PO BID 07/24/19 Levothyroxine [Synthroid] 100 mcg PO DAILY 07/24/19 Surgical History: Surgical History (Last Reviewed 07/25/19 @ 09:00 by Reji Galindo MD) History of spinal fusion (Chronic) Z98.1 anterior History of coronary artery stent placement (Chronic) Onset Date: 06/25/19 Z95.5 PTCA-ostial/prox LCx @ [facility] 11/09/2017 PTCA-Cutting Balloon Atherectomy w/ placement of 2.5 x 20 mm Synergy Stent, Distal LM-into the Ostium of LAD Stented w/ 4.0 x 16 mm Synergy Stent 06/2017PTCA-OM 04/2017 PCI-LAD with a 2.75x38 Promus Premier drug eluting stent. 12/15/13 RAYMON of Right Posterior Lateral (Mid) wIth 3.0 x 2.8 Cypher, followed upstream with 3.0 x 8 Cypher, RAYMON of Right PDA (Ostial) with 25 x 28 Cypher 09/17/2007; 06/25/2019:LVEF: by LV gram 45-50 % Depressed Left Ventricular systolic function - Mild; Single vessel CAD of the ostial/proximal LCX in stent restenosis. Non obstructive coronary arteries of LM, LAD and RCA. Referred for immediate PCI to Dr Yao at [facility] given high risk nature and proximity to LM and LAD. S/P PTCA (percutaneous transluminal coronary angioplasty) (Chronic) Onset Date: ~11/09/17 Z98.61 PCI of ostial and mid LCX in-stent restenosis with laser atherectomy, balloon angioplasty per Dr. Rodriguez [facility] 08/20/18 PCI PTCA and laser atherectomy of proximal Circumflex 02/03/2018 PTCA-ostial/prox LCx @ [facility] 11/09/2017 PTCA-Cutting Balloon Atherectomy w/ placement of 2.5 x 20 mm Synergy Stent, Distal LM-into the Ostium of LAD Stented w/ 4.0 x 16 mm Synergy Stent 06/2017PTCA-OM 04/2017 PCI-LAD with a 2.75x38 Promus Premier drug eluting stent. 12/15/13 RAYMON of Right Posterior Lateral (Mid) wIth 3.0 x 2.8 Cypher, followed upstream with 3.0 x 8 Cypher, RAYMON of Right PDA (Ostial) with 25 x 28 Cypher 09/17/2007 History of coronary artery stent placement (Chronic) Z95.5 History of appendectomy Z90.49 History of cholecystectomy Z90.49 History of tonsillectomy and adenoidectomy Z98.890 Surgical History: angioplasty, appendectomy, cholecystectomy, tonsillectomy, - - Spinal fusion Psychiatric History: No pertinent psych hx PHARMACY STOCK CLERK History: No pertinent PHARMACY STOCK CLERK history Smoking Status: Never smoker Tobacco Use: Non-smoker - *Family History Maternal Family History: Family History (Last Reviewed 07/25/19 @ 09:00 by Reji Galindo MD) Mother CAD (coronary artery disease) Father CAD (coronary artery disease) History Items: Heart Disease - CAD, - - Schizophrenia Paternal Family History: Family History (Last Reviewed 07/25/19 @ 09:00 by Reji Galindo MD) Mother CAD (coronary artery disease) Father CAD (coronary artery disease) History Items: Heart Disease Review of Systems Constitutional: Denies: Chills, Fever, Weight Change HEENT: Denies: Head Aches, Sinus Congestion, Sinus Drainage Cardiovascular: Reports: Chest Pain. Denies: Palpitations Respiratory: Reports: Cough, Shortness of Breath Gastrointestinal: Reports: Abdominal Pain - Epigastric. Denies: Nausea, Vomiting Genitourinary: Denies: Dysuria Musculoskeletal: Denies: Joint Pain, Joint Tenderness Skin: Denies: Rash, Wounds Neurological: Denies: Numbness, Tingling, Focal weakness Psychiatric: Denies: Anxiety, Depression, Homicidal Ideations, Suicidal Ideations Hematologic/ Lymphatic: Denies: Easy Bruising, Easy Bleeding VTE Information - Inpt Only VTE Present on Admission: No VTE Mechan Device Prophylaxis: None VTE Pharm Prophylaxis ordered?: No Reason prophylaxis not ordered:: Treatment Not Indicated - Heparin drip has been started for non-ST elevation LA Patient Problems: Active and Suspected Problems (Last Reviewed 07/25/19 @ 09:00 by Reji Galindo MD) NSTEMI (non-ST elevated myocardial infarction) (Acute) NSTEMI (non-ST elevated myocardial infarction) (Acute) - Physical Exam Vitals/I&O's: Vital Signs Temp Pulse Resp BP Pulse Ox 98.1 F 74 16 128/53 H 98 07/24/19 19:24 07/24/19 21:09 07/24/19 21:09 07/24/19 21:09 07/24/19 21:09 Oxygen Delivery Method Room Air Weight: 95.5 kg Body Mass Index (BMI) 34.0 Finger Stick Blood Glucose 270 General: Alert, Oriented x3, Cooperative HEENT: Atraumatic, PERRLA, EOMI, Normocephalic Neck: Supple, No Nuchal Rigidity, Trachea Midline Lungs: Clear to auscultation, Normal air movement Cardiovascular: Regular rate, Normal S1, Normal S2, No murmurs Abdomen: Bowel Sounds Present, Soft, Non Tender Extremities: No edema, Capillary Refill Less than 3 Seconds Skin: No rashes, No breakdown Musculoskeletal: No Tenderness to Palpation of Joints or Extremities Neurological: Cranial nerves II-XII grossly intact Psych/Mental Status: Normal Affect, Appropriate Laboratory Results 07/24/19 19:55: WBC 2.4 L, RBC 3.02 L, Hgb 9.7 L, Hct 29.8 L, MCV 98.7, MCH 32.1 H, MCHC 32.6, RDW Std Deviation 48.3 H, RDW Coeff of Conchis 13.5, Plt Count 120 L, MPV 10.2, Immature Gran % (Auto) 0.400, Neut % (Auto) 58.5, Lymph % (Auto) 32.0, [place] % (Auto) 6.6, Eos % (Auto) 2.1, Baso % (Auto) 0.4, Absolute Neuts (auto) 1.4 L, Absolute Lymphs (auto) 0.77 L, Nucleated RBC % 0 07/24/19 19:55: Sodium 144, Potassium 3.9, Chloride 108 H, Carbon Dioxide 30.0, Anion Gap 6, BUN 16, Creatinine 0.95, Estim Creat Clear Calc 44.21, Est GFR (MDRD) Af Amer 73, Est GFR (MDRD) Non-Af 60, BUN/Creatinine Ratio 16.9, Glucose 224 H, Calcium 8.6, Troponin I 0.567 H Current Medications Sodium Chloride () 1,000 mls @ 150 mls/hr IV .[id number] GEORGES Last Admin: 07/24/19 20:41 Dose: 150 mls/hr Documented by: Nitroglycerin (Nitrostat) 0.4 mg SUBLINGUAL Q5M PRN PRN Reason: Chest pain Last Admin: 07/24/19 20:45 Dose: 0.4 mg Documented by: Assessment/Plan All Active Problems (Last Reviewed 07/25/19 @ 09:00 by Reji Galindo MD) NSTEMI (non-ST elevated myocardial infarction) (Acute) NSTEMI (non-ST elevated myocardial infarction) (Acute) Chest pain (Acute) URI (Acute) Atypical chest pain (Acute) Elevated troponin (Acute) Cognitive changes (Resolved) NSTEMI (non-ST elevated myocardial infarction) (Resolved) Unstable angina (Resolved) The patient is a 79 year old F with a significant history of hypertension; hypothyroidism; hyperlipidemia who presented to emergency department with chest pain and found to have ST depression in multiple leads and with increased troponin consistent with non-ST elevation LA Non ST Elevation LA EKG is at the emergency department was no change from previous. However repeat EKG showed significant ST depressions in leads V3 to V6; and mild ST depressions in leads I and aVL. Place on a monitored bed at PCU CXR independently reviewed confirms no acute cardiopulmonary process. Old records reviewed showed worsening of ST depression as stated above. Received aspirin by the paramedics. ASA 81 mg p.o. daily Brilinta continued. Imdur continued. Losartan continued. Ranexa continued. Coreg continued. Nitroglycerin as needed ordered The case was discussed with mail reader and heparin bolus and drip was started Serial cardiac enzymes ordered Stat EKG as needed for chest pain Cardiology consult Leukopenia Chronic Thrombocytopenia Chronic. Monitor platelets while on heparin drip. URI Was started on doxycycline outpatient; continued Was on home Delysm. PRN guaifenesin ordered. Hypothyyroidism Synthroid continued Diabetes mellitus with hyperglycemia On presentation his blood glucose was elevated. Continue home basal insulin; with de-escalated dose. Continue correction scale insulin. Accu-Chek QA [facility]. Congestive heart failure Home diuretics continued DVT prophylaxis Not indicated since patient has been started on heparin drip Code Visit Inpatient E&M: 98003 Init Hosp L3
--- NOTE | 2019-07-24 22:37 | EKG12_ITS ---
Test Reason : CP Blood Pressure : / mmHG Vent. Rate : 086 BPM Atrial Rate : 086 BPM P-R Int : 194 ms QRS Dur : 092 ms QT Int : 426 ms P-R-T Axes : 055 -12 084 degrees QTc Int : 509 ms Normal sinus rhythm Left ventricular hypertrophy with repolarization abnormality Prolonged QT Abnormal ECG Confirmed by SILVINA CHEW, NILSON ([id number]), editor & co founder LAURIE MCCLELLAND ([id number]) on 07/28/2019 11:33:50 AM Referred By: Reji Galindo Confirmed By:NILSON COOL MD
[2019-07-24] MEDS: Nitroglycerin Oint 1 INCH PACKET TRANSDERM. (22:49)
--- NOTE | 2019-07-24 23:16 | EKG12_ITS ---
Test Reason : CP ADMIT Blood Pressure : / mmHG Vent. Rate : 080 BPM Atrial Rate : 080 BPM P-R Int : 184 ms QRS Dur : 094 ms QT Int : 458 ms P-R-T Axes : 058 -06 093 degrees QTc Int : 528 ms Normal sinus rhythm ST & T wave abnormality, consider anterolateral ischemia Prolonged QT Abnormal ECG No previous ECGs available Confirmed by SEVERINO CHEW, LIN ([id number]), city editor THAD HOOKER ([id number]) on 08/01/2019 10:38:12 AM Referred By: Reji Galindo Confirmed By:RICHIE HAQ MD
[2019-07-25] VITALS (12 sets, daily range): BP systolic 111–126; BP diastolic 48–62; PULSE 62–81; RESP 15–18; TEMP 36.5–37.2; O2SAT 89–100
[2019-07-25] MEDS: Furosemide 40 MG Tablet PO ×3 (00:25→21:40)
[2019-07-25] MEDS: TICAGRELOR 90 MG TABLET PO ×3 (00:25→21:38)
[2019-07-25 00:37] LABS: Partial Thromboplast Time 28.4 Seconds (24.1-36.2)
[2019-07-25] MEDS: Heparin Injection (Vial) 5,000 UNIT/ML VIAL 7500 UNIT IV (01:04)
[2019-07-25] MEDS: HEPARIN/D5w 25,000 UNITS 25,000 UNITS/250 ML IV.SOLN. 14 UNITS IV (01:10)
[2019-07-25 01:20] LABS: Bedside Glucose 91 mg/dL (70-110)
[2019-07-25] MEDS: Levothyroxine 100 MCG Tablet PO (05:25)
[2019-07-25 06:56] LABS: Bedside Glucose 129 mg/dL (70-110)
[2019-07-25 07:57] LABS: Partial Thromboplast Time > 250.0 Seconds (24.1-36.2)
[2019-07-25] MEDS: Folic Acid 1 MG Tablet 0.5 MG PO (09:04)
[2019-07-25] MEDS: Losartan Potassium 50 MG Tablet PO (09:05)
[2019-07-25] MEDS: Carvedilol 3.125 MG TABLET PO ×2 (09:05→17:39)
[2019-07-25] MEDS: Ranolazine 500 MG Tablet 1000 MG PO ×2 (09:05→21:40)
[2019-07-25] MEDS: Doxycycline 100 MG CAPSULE PO ×2 (09:05→21:38)
[2019-07-25] MEDS: Multivitamins,Therapeutic Tablet 1 TABLET PO (09:05)
[2019-07-25] MEDS: Aspirin 81 MG TAB.CHEW PO (09:05)
[2019-07-25] MEDS: amLODIPine 2.5 MG Tablet PO (09:05)
[2019-07-25] MEDS: Ascorbic Acid 500 MG Tablet PO (09:05)
[2019-07-25] MEDS: Isosorbide Mononitrate 60 MG Tablet PO ×2 (09:06→21:39)
[2019-07-25] MEDS: amLODIPine 5 MG Tablet PO (09:23)
[2019-07-25] MEDS: 0.9% Saline Lock 10 ML Syringe IV (09:25)
--- NOTE | 2019-07-25 10:57 | CON.PCM_ITS ---
Problem List (1) NSTEMI (non-ST elevated myocardial infarction) Status: Acute (2) Chest pain Status: Acute (3) Essential hypertension Status: Chronic (4) Elevated troponin Status: Acute (5) Thrombocytopenia Status: Chronic (6) CAD (coronary artery disease) Status: Chronic Qualifiers: Coronary Disease-Associated Artery/Lesion type: [place] artery [place] vs. transplanted heart: [place] heart Associated angina: without angina Qualified Code(s): I25.10 - Atherosclerotic heart disease of [place] coronary artery without angina pectoris (7) Non-rheumatic aortic stenosis Status: Chronic (8) History of coronary artery stent placement Status: Chronic Comment: PTCA-ostial/prox LCx @ [facility] 11/09/2017 PTCA-Cutting Balloon Atherectomy w/ placement of 2.5 x 20 mm Synergy Stent, Distal LM-into the Ostium of LAD Stented w/ 4.0 x 16 mm Synergy Stent 06/2017PTCA-OM 04/2017 PCI-LAD with a 2.75x38 Promus Premier drug eluting stent. 12/15/13 RAYMON of Right Posterior Lateral (Mid) wIth 3.0 x 2.8 Cypher, followed upstream with 3.0 x 8 Cypher, RAYMON of Right PDA (Ostial) with 25 x 28 Cypher 09/17/2007; 06/25/2019:LVEF: by LV gram 45-50 % Depressed Left Ventricular systolic function - Mild; Single vessel CAD of the ostial/proximal LCX in stent restenosis. Non obstructive coronary arteries of LM, LAD and RCA. Referred for immediate PCI to Dr Yao at [facility] given high risk nature and proximity to LM and LAD. (9) S/P PTCA (percutaneous transluminal coronary angioplasty) Status: Chronic Comment: PCI of ostial and mid LCX in-stent restenosis with laser atherectomy, balloon angioplasty per Dr. Rodriguez [facility] 08/20/18 PCI PTCA and laser atherectomy of proximal Circumflex 02/03/2018 PTCA-ostial/prox LCx @ [facility] 11/09/2017 PTCA-Cutting Balloon Atherectomy w/ placement of 2.5 x 20 mm Synergy Stent, Distal LM-into the Ostium of LAD Stented w/ 4.0 x 16 mm Synergy Stent 06/2017PTCA-OM 04/2017 PCI-LAD with a 2.75x38 Promus Premier drug eluting stent. 12/15/13 RAYMON of Right Posterior Lateral (Mid) wIth 3.0 x 2.8 Cypher, followed upstream with 3.0 x 8 Cypher, RAYMON of Right PDA (Ostial) with 25 x 28 Cypher 09/17/2007 Reason for Consult Date of Consultation: 07/25/19 Reason for Consultation: Unstable angina, non-correctable coronary disease, status post PCI in the past, hypertension, hypercholesterolemia, aortic stenosis History of Present Illness: The patient is a 79 year old F with a complicated history of coronary artery disease with angioplasty and rotablation of her LAD in 2013. She then had an acute non-ST myocardial infarction in July 2017. Her troponin was elevated to 4.6. Patient was transferred to [facility] at that time where she did have angioplasty and stenting of her distal left main into the ostium of her LAD. In November 2017 she was hospitalized for a non-ST myocardial infarction. She underwent a diagnostic heart catheterization which demonstrated Left main coronary artery with mild disease. Left anterior descending artery previously stented and patent proximally, and mid with severe distal disease. Ostial 95% circumflex artery stenosis and a diffusely diseased vessel. First obtuse marginal branch with ostial stenosis. Second obtuse marginal branch with diffuse disease. Dominant right coronary artery with diffuse disease. Preserved ejection fraction. She was transferred to [facility] where she underwent stenting to her ostial/proximal circumflex. She also has a history of hypertension, hyperlipidemia, and schizophrenia. In February2017 she was admitted to [facility] for chest discomfort and was noted to have any elevated troponin. She did undergo PCI, PTCA only of the proximal circumflex on 02/03/2018. She then presented back to the emergency room on February 25 2018 with chest discomfort, she was transferred up to [facility]. She did have a mildly elevated troponin. Repeat heart catheterization did not demonstrate any new findings from a heart catheterization earlier that month. Patient was noted to have low blood pressure so her Coreg and Norvasc were decreased. In the past she has tried multiple different medications for her chest discom fort in addition to cardiac rehab in the ECP therapy. She was unable to tolerate ECP therapy. Cardiac rehab did not work for her due to transportation issues. Patient returned in August 2018 with unstable angina and repeat catheterization demonstrated a critical in-stent restenosis at the bifurcation of her left main and left circumflex. She was transferred to [facility] where she underwent successful laser atherectomy for mid left circumflex in-stent restenosis, followed by balloon angioplasty only with a 3.0 ex-15 noncompliant balloon with minimal residual stenosis. The post angioplasty films, showed a well apposed stent with a heavily calcified ostium in the ostium was smaller in diameter than the proximal left circumflex due to the calcification. On 10/06/2018 she was admitted for atypical chest pain, community acquired pneumonia and hypokalemia as well as indeterminate troponins. At that time she had on and off coughing going on for about 3 months and shortness of breath with exertion. She was treated with antibiotic therapy, and subsequently sent home. We did not have a cardiology consultation on this most recent admission. Patient then returned this past summer, while I was out of town, with recurrent chest pain symptoms and was transferred to [facility] once again but based upon her anatomy, she was declined for bypass surgery or additional angioplasty. She then returned in June 2019 with recurrent substernal chest pain and non-ST elevation myocardial infarction. I repeated her catheterization which demonstrated critical in-stent restenosis of the ostium of her left circumflex and distal left main. She was then transferred [facility] once again where she was seen by Dr. Yao. Once it was determined the patient was declined for revascularization by the [facility], given the complexity of her coronary anatomy, it was elected that the patient be treated with medical therapy only going forward. Patient had recurrent substernal chest pain last evening superimposed on significant hypertension and came to the emergency room for evaluation. She apparently took 6 nitroglycerin tablets with resolution of her chest pain. Her EKG showed normal sinus rhythm with dynamic anterolateral T wave inversion and ST segment depression. She felt much better after application of O2 nasal cannula and her chest pain resolved. She has had no further chest pain symptoms while on O2 therapy nasal cannula. Her peak troponin is 1.0 today. Past Medical History Allergies/Adverse Reactions: Allergies aripiprazole [From Abilify] Allergy (Intermediate, Verified 07/24/19 19:24) it over powered me lisinopril Allergy (Intermediate, Verified 07/24/19 19:24) Unknown atorvastatin calcium [From Lipitor] Adverse Reaction (Verified 07/24/19 19:24) Unknown rosiglitazone maleate [From Avandia] Adverse Reaction (Verified 07/24/19 19:24) Other Home Medications: Ambulatory Orders Medication Instructions Recorded Aspirin [Aspirin, Baby] 81 mg PO DAILY@0800 06/30/17 Nitroglycerin [Nitrostat] 0.4 mg SL PRN PRN 06/30/17 Multivitamins,Therapeutic 1 tab PO DAILY 02/01/18 [Multivitamin] ascorbic acid (vitamin C) 500 mg 500 mg PO DAILY 09/13/18 tablet insulin regular human 100 unit/mL 5 - 10 unit SC TID ml 09/13/18 injection solution amlodipine 2.5 mg tablet 2.5 mg PO DAILY #30 tab 10/03/18 losartan 50 mg tablet 50 mg PO DAILY #30 tab 10/03/18 pravastatin 80 mg tablet 80 mg PO DAILY #30 tab 10/03/18 ranolazine 1,000 mg 1,000 mg PO BID #60 tab 10/03/18 tablet,extended release,12 hr ticagrelor 90 mg tablet 90 mg PO BID #60 tab 10/03/18 Insulin Glargine,Hum.rec.anlog 34 unit SC DAILY 04/23/19 [Torola Bejarano] Potassium Chloride [K-Dur] 20 meq PO DAILY #30 tab 04/23/19 Carvedilol [Coreg] 3.125 mg PO BIDCM 06/24/19 Cholecalciferol (Vitamin D3) 5,000 unit PO DAILY 06/24/19 [Vitamin D3] Folic Acid 0.4 mg PO DAILY@0800 06/24/19 Furosemide 40 mg PO BID 06/24/19 Isosorbide Mononitrate [Imdur] 60 mg PO DAILY 06/24/19 Metolazone 2.5 mg PO WE 06/24/19 Doxycycline Hyclate 100 mg PO BID 07/24/19 Levothyroxine [Synthroid] 100 mcg PO DAILY 07/24/19 Past Medical History (Chronic Problems): Chronic Problems (Last Reviewed 07/25/19 @ 09:00 by Reji Galindo MD) Non-rheumatic mitral regurgitation (Chronic) Nonrheumatic tricuspid valve regurgitation (Chronic) Essential hypertension (Chronic) Thrombocytopenia (Chronic) CAD (coronary artery disease) (Chronic) History of spinal fusion (Chronic) anterior Non-rheumatic aortic stenosis (Chronic) History of coronary artery stent placement (Chronic 06/25/19) PTCA-ostial/prox LCx @ [facility] 11/09/2017 PTCA-Cutting Balloon Atherectomy w/ placement of 2.5 x 20 mm Synergy Stent, Distal LM-into the Ostium of LAD Stented w/ 4.0 x 16 mm Synergy Stent 06/2017PTCA-OM 04/2017 PCI-LAD with a 2.75x38 Promus Premier drug eluting stent. 12/15/13 RAYMON of Right Posterior Lateral (Mid) wIth 3.0 x 2.8 Cypher, followed upstream with 3.0 x 8 Cypher, RAYMON of Right PDA (Ostial) with 25 x 28 Cypher 09/17/2007; 06/25/2019:LVEF: by LV gram 45-50 % Depressed Left Ventricular systolic function - Mild; Single vessel CAD of the ostial/proximal LCX in stent restenosis. Non obstructive coronary arteries of LM, LAD and RCA. Referred for immediate PCI to Dr Yao at [facility] given high risk nature and proximity to LM and LAD. Chronic systolic (congestive) heart failure (Chronic) Schizophrenia (Chronic) S/P PTCA (percutaneous transluminal coronary angioplasty) (Chronic ~11/09/17) PCI of ostial and mid LCX in-stent restenosis with laser atherectomy, balloon angioplasty per Dr. Rodriguez [facility] 08/20/18 PCI PTCA and laser atherectomy of proximal Circumflex 02/03/2018 PTCA-ostial/prox LCx @ [facility] 11/09/2017 PTCA-Cutting Balloon Atherectomy w/ placement of 2.5 x 20 mm Synergy Stent, Distal LM-into the Ostium of LAD Stented w/ 4.0 x 16 mm Synergy Stent 06/2017PTCA-OM 04/2017 PCI-LAD with a 2.75x38 Promus Premier drug eluting stent. 12/15/13 RAYMON of Right Posterior Lateral (Mid) wIth 3.0 x 2.8 Cypher, followed upstream with 3.0 x 8 Cypher, RAYMON of Right PDA (Ostial) with 25 x 28 Cypher 09/17/2007 History of coronary artery stent placement (Chronic) Atherosclerotic heart disease [place] coronary artery w/angina pectoris (Chronic) PCI of ostial and mid LCX in-stent restenosis with laser atherectomy, balloon angioplasty per Dr. Rodriguez [facility] 08/20/18 PCI PTCA and laser atherectomy of proximal Circumflex 02/03/2018 PTCA-ostail/prox LCx @ [facility] 11/09/2017 PTCA-Cutting Balloon Atherectomy w/ placement of 2.5 x 20 mm Synergy Stent, Distal LM-into the Ostium of LAD Stented w/ 4.0 x 16 mm Synergy Stent 06/2017PTCA-OM 04/2017 PCI-LAD with a 2.75x38 Promus Premier drug eluting stent. 12/15/13 RAYMON of Right Posterior Lateral (Mid) wIth 3.0 x 2.8 Cypher, followed upstream with 3.0 x 8 Cypher, RAYMON of Right PDA (Ostial) with 25 x 28 Cypher 09/17/2007 Pancytopenia (Chronic) Hypothyroidism (Chronic) Hyperlipidemia (Chronic) Diabetes mellitus, type II (Chronic) Venous insufficiency (Chronic) NSTEMI (non-ST elevated myocardial infarction) (Chronic ~09/16/17) Intermittent claudication (Chronic) Obesity (BMI 30.0-34.9) (Chronic) Surgical History: angioplasty, appendectomy, cholecystectomy, tonsillectomy, - - Spinal fusion Psychiatric History: No pertinent psych hx INDUSTRIAL COOK History: No pertinent INDUSTRIAL COOK history - *Family History Maternal Family History: Family History (Last Reviewed 07/25/19 @ 09:00 by Reji Galindo MD) Mother CAD (coronary artery disease) Father CAD (coronary artery disease) History Items: Heart Disease - CAD, - - Schizophrenia Paternal Family History: Family History (Last Reviewed 07/25/19 @ 09:00 by eRji Galindo MD) Mother CAD (coronary artery disease) Father CAD (coronary artery disease) History Items: Heart Disease Smoking Status: Never smoker Tobacco Use: Non-smoker Review of Systems - Review of Systems General: Denies: Fever, Night Sweats, Fatigue Cardiovascular: Reports: Chest Discomfort, Chest Discomfort at Rest, Chest Discomfort with Exertion, Shortness of Breath at Rest. Denies: Shortness of Breath, Orthopnea, PND, Peripheral Edema, Palpitations, Lightheadedness, Dizziness, Near Syncope, Syncope Respiratory: Denies: Cough, Sputum Production, Hemoptysis Gastrointestinal: Denies: Hematemesis, Hematochezia, Melena Genitourinary: Denies: Dysuria, Hematuria Skin: Denies: Rash Subjectve: Patient resting comfortably, no acute distress. Objective: Vital Signs Temp Pulse Resp BP Pulse Ox 99.0 F 67 15 126/62 H 100 07/25/19 08:58 07/25/19 08:58 07/25/19 08:58 07/25/19 08:58 07/25/19 08:58 Oxygen Flow Rate (L/min) 2 Oxygen Delivery Method Nasal Cannula Weight: 202 lb 6.15 oz Body Mass Index (BMI) 31.6 Finger Stick Blood Glucose 270 Intake and Output for Last 24 Hours 07/23/19 07/24/19 07/25/19 23:59 23:59 23:59 Intake Total 980 / 980 215.67 / 215.67 Output Total 650 / 650 200 / 200 Balance 330 / 330 15.67 / 15.67 General: Awake, Alert, Oriented x 3 HEENT: PERRL, EOMI, Sclera Non Icteric Neck: Supple, Good ROM, No Lymph Node Enlargement Lungs: Clear to auscultation Cardiovascular: Regular Rhythm, Normal S2, No Rubs, No Gallops Murmur Murmur: Grade 2/6, Crescendo-Decrescendo Vascular: No Carotid Bruits, Normal Femoral Pulses, Normal Radial Pulses, Normal Dorsalis Pedal Pulse, Normal Posterior Tibial Pulses Abdomen: Bowel Sounds Present, Soft, Non Tender, No HSM, No Organomegaly Extremities: No Cyanosis, No Clubbing, No edema Neurological: No Focal Motor or Sensory Deficit 07/24/19 19:55: WBC 2.4 L, RBC 3.02 L, Hgb 9.7 L, Hct 29.8 L, MCV 98.7, MCH 32.1 H, MCHC 32.6, Plt Count 120 L, MPV 10.2, Immature Gran % (Auto) 0.400, Neut % (Auto) 58.5, Lymph % (Auto) 32.0, [place] % (Auto) 6.6, Eos % (Auto) 2.1, Baso % (Auto) 0.4, Absolute Neuts (auto) 1.4 L, Nucleated RBC % 0 07/24/19 19:55: Sodium 144, Potassium 3.9, Chloride 108 H, Carbon Dioxide 30.0, Anion Gap 6, BUN 16, Creatinine 0.95, Est GFR (MDRD) Af Amer 73, Est GFR (MDRD) Non-Af 60, BUN/Creatinine Ratio 16.9, Glucose 224 H, Calcium 8.6, Troponin I 0.567 H 07/24/19 23:54: Troponin I 0.669 H* 07/24/19 23:54: APTT 28.4 07/25/19 02:54: Troponin I 0.802 H* 07/25/19 06:02: Troponin I 1.040 H* 07/25/19 07:06: APTT > 250.0 H* Rhythm: EKG: ECHO: Pending Stress Test: Cardiac Cath: PCI: CT Surgery: Holter monitor: EPS: PPM: CXR: Chest CT Scan: Assessment/Plan 1. Coronary artery disease: The patient has non-correctable coronary artery disease evaluated by several general embedder, technical sales representatives, and CV surgeons both here at [facility], [facility], and the [facility]. I believe the patient's hypertension is a triggering point for her chest pain, and would recommend aggressive reduction of her blood pressure to avoid recurrent anginal symptoms. To this end I recommend increasing her Imdur to 60 mg p.o. twice daily, and increasing her amlodipine to 5 mg a day. I would not recommend repeat stress testing, or repeat catheterization at this time as she just had a heart catheter ization in June 2019 which confirmed her non-correctable coronary occlusive disease. Despite her aortic stenosis she appears to be tolerating nitrate based therapy fairly well. In addition I believe the patient would benefit from chronic O2 therapy as this appears to increase her oxygen carrying capacity, and decreases her anginal symptoms. She has been evaluated for this in the past but does apparently not qualify based upon a pulmonary situation but would recommend reevaluation for possible control of anginal symptoms. Fortunately patient is not a candidate for EECP therapy. Given her non-STEMI, unstable angina, I recommend lifelong baby aspirin, Brilinta, Ranexa, Imdur, Lasix, Coreg, and amlodipine. I would recommend a repeat echocardiogram to determine if her aortic valve munir nosis is in any way worsened since his last echocardiogram in 2018. 2. Hyperlipidemia: Continue Pravachol therapy. 3. Thank you very much for the opportunity to participate in the cardiac care of your patient. If we are able to secure O2 therapy and her blood pressure is well controlled with the above adjustments to her antihypertensive therapy, she may be discharged home. Agitation time took place between 815 and 845 aM.
--- NOTE | 2019-07-25 11:03 | ECHOD_ITS ---
Reason For Study: Chest Pain Procedure This was a 2D Doppler, Color Flow transthoracic echocardiogram. Exam performed portable in patient room. Left Ventricle Normal size and thickness. The estimated ejection fraction is 55 %. Stage 1 diastolic dysfunction. No regional wall motion abnormalities noted. Right Ventricle Mildly dilated right ventricle. Normal systolic function. Atria Normal left atrium. Normal right atrium. Normal atrial septum. Mitral Valve The mitral valve is structurally normal. No prolapse or stenosis seen. Mild (1+) mitral valve insufficiency. Tricuspid Valve Normal tricuspid valve. Trivial tricuspid valve insufficiency. Right ventricular systolic pressure estimated to be 31 mmHg. Aortic Valve Moderate focal aortic valve thickening. Mild diffuse aortic valve thickening. Mild restriction of the aortic valve. Mild aortic stenosis. Peak aortic valve gradient 21 mmHg. Mean aortic valve gradient 12 mmHg. Calculated aortic valve area (continuity equation) is 1.5 cm2. Trivial aortic valve insufficiency. Pulmonic Valve Normal pulmonic valve. Great Vessels Calcified aortic root. Normal arch. Normal inferior vena cava. Inferior vena cava collapse with sniff. Pericardium/Pleural No pericardial effusion. MMode/2D Measurements & Calculations LVIDd: 4.7 cm IVSd: 1.6 cm LVOT diam: 2.2 cm LVIDs: 3.1 cm LVPWd: 1.0 cm LVOT area: 3.7 cm2 RVDd: 4.3 cm FS: 33.5 % Ao root diam: 3.4 cm LAV(MOD-bp): 61.8 ml LVAd ap4: 30.7 cm2 LAV(MOD-bp) Indexed: 30.4 ml/m2 EDV(MOD-sp4): 98.9 ml LAV(MOD-sp2): 60.3 ml EDV(sp4-el): 102.0 ml LAV(MOD-sp4): 56.3 ml LVAs ap4: 16.1 cm2 ESV(MOD-sp4): 34.5 ml ESV(sp4-el): 34.8 ml EF(MOD-sp4): 65.1 % EF(sp4-el): 65.9 % SV(MOD-sp4): 64.4 ml SV(sp4-el): 67.2 ml LA A4 area: 19.3 cm2 LA dimension(2D): 4.6 cm RA A4 area: 14.9 cm2 Doppler Measurements & Calculations MV E max melo: 81.5 cm/sec Lat Peak E' Melo: 7.2 cm/sec Med Peak E' Melo: 6.9 cm/sec MV A max melo: 93.6 cm/sec E/E' lat: 11.3 E/E' med: 11.8 MV E/A: 0.87 Ao V2 max: 230.1 cm/sec AI max melo: 271.8 cm/sec LV V1 max: 89.8 cm/sec Ao max P.2 mmHg AI max P.6 mmHg LV V1 max P.2 mmHg Ao V2 mean: 165.5 cm/sec LV V1 mean P.0 mmHg Ao mean P.9 mmHg AI dec slope: 145.3 cm/sec2 LV V1 mean: 67.7 cm/sec Ao V2 VTI: 58.6 cm AI P1/2t: 547.7 msec LV V1 VTI: 27.0 cm CASH(I,D): 1.7 cm2 CASH(V,D): 1.4 cm2 SV(LVOT): 100.0 ml PA V2 max: 111.3 cm/sec TR max melo: 254.7 cm/sec TR max P.0 mmHg Interpretation Summary The estimated ejection fraction is 55 %. Stage 1 diastolic dysfunction. Mildly dilated right ventricle. Mild (1+) mitral valve insufficiency. Trivial tricuspid valve insufficiency. Right ventricular systolic pressure estimated to be 31 mmHg. Mild aortic stenosis. Trivial aortic valve insufficiency. Compared to echo report dated 02/02/2018, no appreciable changes noted. Ordering Physician: Yvan Malik Referring Physician: Diana Cohen Performed By: Genet [place], CHACE, RVT
[2019-07-25] MEDS: Insulin Lispro 100 UNIT/ML INSULN.PEN SC ×3 (12:09→21:38)
[2019-07-25 12:10] LABS: Bedside Glucose 197 mg/dL (70-110)
[2019-07-25] MEDS: guaiFENesin 10 ML UDC (200MG/10ML) PO (12:10)
--- NOTE | 2019-07-25 13:07 | CASEMGMT ---
RN CM Assessment Presentation: NSTEMI Intro role of CM and purpose of RN CM assessment. Demographics, PCP and Pharmacy verified. PCP: Dr. Cohen Specialists: Dr. Malik, cardiology. Preferred Pharmacy: [facility] Insurance: [employer] Advantage Prescription Benefit: yes Passport Services: [place] TRACEY -[employer] aides 3hrs weekly -global meals 7x week -medical alert LNO[place]: [place], [place] Living Arrangements: lives in apartment alone. Has rollator and scooter. States generally does own bathing, and ADL's. Has aides that come Tues/Thurs through [employer]. Transportation: [employer] or [employer] DME: rollator, scooter. Pt states she would like home oxygen even if I have to pay for it. -first choice for [employer] supplier is [employer]. ([employer] does not provide self pay oxygen). [employer] cost if self pay would be approx. ~$160/mth. -will do Home oxygen testing prior to dc to evaluate if pt qualifies for oxygen under her insurance. HHC/SNF: pt not sure. Patient DC goals: home DC PLAN: anticipate home. Home oxygen testing prior to dc. Agustin NANCE RN ACM
--- NOTE | 2019-07-25 13:19 | CASEMGMT ---
Patient asked for someone to call her assistant case manager at [facility]. SW called [facility] and notified Gage Chapin on the coverage line that patient is in the hospital. She has up to 3 hours of aide services per week from [employer], 7 meals a week delivered from [employer], and a medical alert button. Her assistant case manager is Helena De León ([phone]). Karina SERRATO MSW
--- NOTE | 2019-07-25 13:22 | PN_ITS ---
<Lucero Valera - Last Filed: 07/25/19 13:36> Patient Problems: Active and Suspected Problems (Last Reviewed 07/25/19 @ 09:00 by Reji Galindo MD) NSTEMI (non-ST elevated myocardial infarction) (Acute) NSTEMI (non-ST elevated myocardial infarction) (Acute) Subjective: Patient seen and examined. Reports her chest pain is improved. States she would like to be discharged with oxygen as she feels more comfortable when wearing it. Denies other complaints. - Physical Exam Vitals/I&O's: Vital Signs Temp Pulse Resp BP Pulse Ox 99.0 F 67 15 126/62 H 100 07/25/19 08:58 07/25/19 08:58 07/25/19 08:58 07/25/19 08:58 07/25/19 08:58 Oxygen Flow Rate (L/min) 2 Oxygen Delivery Method Nasal Cannula Weight: 202 lb 6.15 oz Body Mass Index (BMI) 31.6 Finger Stick Blood Glucose 270 Intake and Output for Last 24 Hours 07/23/19 07/24/19 07/25/19 23:59 23:59 23:59 Intake Total 980 / 980 755.67 / 755.67 Output Total 650 / 650 2400 / 2400 Balance 330 / 330 -1644.33 / -1644.33 General: Alert, Oriented x3, Cooperative HEENT: Atraumatic, PERRLA, EOMI, Normocephalic Neck: Supple, No JVD, Negative Carotid Bruits Lungs: Clear to auscultation, Normal air movement Cardiovascular: Regular rate, Regular Rhythm, Normal S1, Normal S2, Murmur Abdomen: Bowel Sounds Present, Soft, Non Tender, Non-Distended Extremities: No clubbing, No cyanosis, Capillary Refill Less than 3 Seconds, Edema - Nonpitting bilateral lower extremities Skin: No rashes, No breakdown Musculoskeletal: No Tenderness to Palpation of Joints or Extremities Neurological: Cranial nerves II-XII grossly intact, Neuro grossly intact Psych/Mental Status: Normal Affect, Appropriate Laboratory Results 07/24/19 19:55: WBC 2.4 L, RBC 3.02 L, Hgb 9.7 L, Hct 29.8 L, MCV 98.7, MCH 32.1 H, MCHC 32.6, RDW Std Deviation 48.3 H, RDW Coeff of Conchis 13.5, Plt Count 120 L, MPV 10.2, Immature Gran % (Auto) 0.400, Neut % (Auto) 58.5, Lymph % (Auto) 32.0, Faulk % (Auto) 6.6, Eos % (Auto) 2.1, Baso % (Auto) 0.4, Absolute Neuts (auto) 1.4 L, Absolute Lymphs (auto) 0.77 L, Nucleated RBC % 0 07/24/19 19:55: Sodium 144, Potassium 3.9, Chloride 108 H, Carbon Dioxide 30.0, Anion Gap 6, BUN 16, Creatinine 0.95, Estim Creat Clear Calc 44.21, Est GFR (MDRD) Af Amer 73, Est GFR (MDRD) Non-Af 60, BUN/Creatinine Ratio 16.9, Glucose 224 H, Calcium 8.6, Troponin I 0.567 H 07/24/19 23:54: Troponin I 0.669 H* 07/24/19 23:54: APTT 28.4 07/25/19 00:18: POC Glucose 91 07/25/19 02:54: Troponin I 0.802 H* 07/25/19 06:02: Troponin I 1.040 H* 07/25/19 06:48: POC Glucose 129 H 07/25/19 07:06: APTT > 250.0 H* 07/25/19 12:02: POC Glucose 197 H Current Medications Acetaminophen (Tylenol) 650 mg PO Q6H PRN PRN PRN Reason: Pain Score 1-10/Temp > 100.7 F Amlodipine Besylate (Norvasc) 5 mg PO DAILY [facility] Last Admin: 07/25/19 09:23 Dose: 2.5 mg Documented by: Ascorbic Acid (Vitamin C) 500 mg PO DAILY [facility] Last Admin: 07/25/19 09:05 Dose: 500 mg Documented by: Aspirin (Aspirin, Baby) 81 mg PO DAILY@0800 [facility] Last Admin: 07/25/19 09:05 Dose: 81 mg Documented by: Carvedilol (Coreg) 3.125 mg PO BIDCM [facility] Last Admin: 07/25/19 09:05 Dose: 3.125 mg Documented by: Cholecalciferol (Vitamin D) 5,000 unit PO DAILY [facility] Last Admin: 07/25/19 09:04 Dose: 5,000 unit Documented by: Doxycycline Monohydrate (Doxycycline) 100 mg PO BID [facility] Stop: 07/26/19 10:01 Last Admin: 07/25/19 09:05 Dose: 100 mg Documented by: Folic Acid (Folic Acid) 0.5 mg PO DAILY@0800 [facility] Last Admin: 07/25/19 09:04 Dose: 0.5 mg Documented by: Furosemide (Lasix) 40 mg PO BID [facility] Last Admin: 07/25/19 09:04 Dose: 40 mg Documented by: Glucagon () 1 mg IM .X1 PRN PRN Reason: Hypoglycemia Glucagon () 1 mg IM .X1 PRN PRN Reason: Hypoglycemia Guaifenesin (Robitussin) 10 ml PO Q4H PRN PRN PRN Reason: COUGH Last Admin: 07/25/19 12:10 Dose: 10 ml Documented by: Heparin Sodium (Porcine) (Heparin Na) 0 unit IV UD PRN; Protocol Sodium Chloride () 250 mls @ 15 mls/hr IV .[id number] PRN PRN Reason: Saline Flush Sodium Chloride () 250 mls @ 15 mls/hr IV .[id number] PRN PRN Reason: Additional IVPB Infusion Dextrose (Dextrose 10%-Water) 250 mls @ 999 mls/hr IV .Q16M PRN; Protocol PRN Reason: HYPOGLYCEMIA Insulin Glargine (Lantus (Bkc)) 30 units SC QHS [facility] Last Admin: 07/25/19 00:37 Dose: Not Given Documented by: Insulin Human Lispro (Humalog Kwikpen (Bk)) 0 unit SC ACHS [facility]; Protocol Last Admin: 07/25/19 12:09 Dose: 2 u Documented by: Isosorbide Mononitrate (Imdur) 60 mg PO BID [facility] Last Admin: 07/25/19 09:15 Dose: Not Given Documented by: Levothyroxine Sodium (Synthroid) 100 mcg PO DAILY@0600 [facility] Last Admin: 07/25/19 05:25 Dose: 100 mcg Documented by: Losartan Potassium (Cozaar) 50 mg PO DAILY [facility] Last Admin: 07/25/19 09:05 Dose: 50 mg Documented by: Metolazone (Zaroxolyn) 2.5 mg PO WE [facility] Multivitamins (Multivitamin) 1 tablet PO DAILYCM [facility] Last Admin: 07/25/19 09:05 Dose: 1 tablet Documented by: Nitroglycerin (Nitrostat) 0.4 mg SUBLINGUAL Q5M PRN PRN Reason: Angina pain Ondansetron HCl (Zofran) 4 mg IV Q8H PRN PRN PRN Reason: NAUSEA/VOMITING Potassium Chloride (K-Dur) 20 meq PO DAILY [facility] Last Admin: 07/25/19 09:04 Dose: 20 meq Documented by: Pravastatin Sodium (Pravachol) 80 mg PO QHS [facility] Ranolazine (Ranexa) 1,000 mg PO BID [facility] Last Admin: 07/25/19 09:05 Dose: 1,000 mg Documented by: Sodium Chloride () 10 - 40 ml IV UD PRN PRN Reason: SALINE FLUSH Last Admin: 07/25/19 09:25 Dose: 10 ml Documented by: Ticagrelor (Brilinta) 90 mg PO BID [facility] Last Admin: 07/25/19 09:11 Dose: 90 mg Documented by: Medical Necessity - Tobacco Use Smoking Status: Never smoker Tobacco Use: Non-smoker Assessment/Plan All Active Problems (Last Reviewed 07/25/19 @ 09:00 by Reji Galindo MD) NSTEMI (non-ST elevated myocardial infarction) (Acute) NSTEMI (non-ST elevated myocardial infarction) (Acute) Chest pain (Acute) URI (Acute) Atypical chest pain (Acute) Elevated troponin (Acute) Cognitive changes (Resolved) NSTEMI (non-ST elevated myocardial infarction) (Resolved) Unstable angina (Resolved) 1. NSTEMI/CAD-cardiology following. Patient follows with Dr. Malik. Patient had recent evaluation at [facility]. Per cardiology, she has non-correctable CAD. Plan to continue aggressive medical management. Her Imdur was increased to 60 mg twice daily. Amlodipine increased to 5 mg daily. Echocardiogram ordered. Continue aspirin, Brilinta, Ranexa, Lasix, carvedilol. Patient feels her symptoms are improved on supplemental oxygen. Walking pulse ox prior to discharge. Case management assisting with O2 set up if qualifies. 2. Chronic pancytopenia-stable, trend CBC. 3. Hypothyroidism-continue Synthroid regimen. 4. Recent URI-continue previously prescribed doxycycline regimen. Mostly resolved. 5. Type 2 diabetes [id number] AC at bedtime with sliding scale insulin. 6. Chronic diastolic CHF-echocardiogram in 2018 demonstrated an EF of 53%. Repeat echo pending. Continue medication regimen as noted above. DVT prophylaxis-heparin subcu This patient was seen by MARTY Ugalde under the supervision of Dr. Russell. <Jp Russell - Last Filed: 07/25/19 16:41> Subjective: Seen and examined. Patient chest pain has improved. Patient recently had a heart cath in June 2019. Still seems short of breath on conversation. Troponins are elevated in the range of non-STEMI. - Physical Exam Vitals/I&O's: Vital Signs Temp Pulse Resp BP Pulse Ox 98.2 F 63 16 111/51 L 100 07/25/19 15:30 07/25/19 16:00 07/25/19 15:30 07/25/19 15:30 07/25/19 15:30 Oxygen Flow Rate (L/min) 1 Oxygen Delivery Method Nasal Cannula Weight: 202 lb 6.15 oz Body Mass Index (BMI) 31.6 Finger Stick Blood Glucose 270 Intake and Output for Last 24 Hours 07/23/19 07/24/19 07/25/19 23:59 23:59 23:59 Intake Total 980 / 980 755.67 / 755.67 Output Total 650 / 650 2400 / 2400 Balance 330 / 330 -1644.33 / -1644.33 General: Alert, Oriented x3, Cooperative HEENT: Atraumatic, PERRLA, EOMI, Normocephalic Neck: Supple, No JVD, Negative Carotid Bruits Lungs: Clear to auscultation, Normal air movement Cardiovascular: Regular rate, Regular Rhythm, Normal S1, Normal S2, Murmur - Systolic murmur present over left lower sternal border and holosystolic murmur over mitral area. Abdomen: Bowel Sounds Present, Soft, Non Tender, Non-Distended Extremities: No clubbing, No cyanosis, Capillary Refill Less than 3 Seconds, Edema Skin: No rashes, No breakdown Musculoskeletal: No Tenderness to Palpation of Joints or Extremities, Arthritic Changes Neurological: Cranial nerves II-XII grossly intact, Neuro grossly intact Psych/Mental Status: Normal Affect, Appropriate Laboratory Results 07/24/19 19:55: WBC 2.4 L, RBC 3.02 L, Hgb 9.7 L, Hct 29.8 L, MCV 98.7, MCH 32.1 H, MCHC 32.6, RDW Std Deviation 48.3 H, RDW Coeff of Conchis 13.5, Plt Count 120 L, MPV 10.2, Immature Gran % (Auto) 0.400, Neut % (Auto) 58.5, Lymph % (Auto) 32.0, Faulk % (Auto) 6.6, Eos % (Auto) 2.1, Baso % (Auto) 0.4, Absolute Neuts (auto) 1.4 L, Absolute Lymphs (auto) 0.77 L, Nucleated RBC % 0 07/24/19 19:55: Sodium 144, Potassium 3.9, Chloride 108 H, Carbon Dioxide 30.0, Anion Gap 6, BUN 16, Creatinine 0.95, Estim Creat Clear Calc 44.21, Est GFR (MDRD) Af Amer 73, Est GFR (MDRD) Non-Af 60, BUN/Creatinine Ratio 16.9, Glucose 224 H, Calcium 8.6, Troponin I 0.567 H 07/24/19 23:54: Troponin I 0.669 H* 07/24/19 23:54: APTT 28.4 07/25/19 00:18: POC Glucose 91 07/25/19 02:54: Troponin I 0.802 H* 07/25/19 06:02: Troponin I 1.040 H* 07/25/19 06:48: POC Glucose 129 H 07/25/19 07:06: APTT > 250.0 H* 07/25/19 12:02: POC Glucose 197 H 07/25/19 15:52: POC Glucose 223 H Current Medications Acetaminophen (Tylenol) 650 mg PO Q6H PRN PRN PRN Reason: Pain Score 1-10/Temp > 100.7 F Amlodipine Besylate (Norvasc) 5 mg PO DAILY [facility] Last Admin: 07/25/19 09:23 Dose: 2.5 mg Documented by: Ascorbic Acid (Vitamin C) 500 mg PO DAILY [facility] Last Admin: 07/25/19 09:05 Dose: 500 mg Documented by: Aspirin (Aspirin, Baby) 81 mg PO DAILY@0800 [facility] Last Admin: 07/25/19 09:05 Dose: 81 mg Documented by: [facility] Last Admin: 07/25/19 09:05 Dose: 3.125 mg Documented by: Cholecalciferol (Vitamin D) 5,000 unit PO DAILY [facility] Last Admin: 07/25/19 09:04 Dose: 5,000 unit Documented by: Doxycycline Monohydrate (Doxycycline) 100 mg PO BID [facility] Stop: 07/26/19 10:01 Last Admin: 07/25/19 09:05 Dose: 100 mg Documented by: Folic Acid (Folic Acid) 0.5 mg PO DAILY@0800 [facility] Last Admin: 07/25/19 09:04 Dose: 0.5 mg Documented by: Furosemide (Lasix) 40 mg PO BID [facility] Last Admin: 07/25/19 09:04 Dose: 40 mg Documented by: Glucagon () 1 mg IM .X1 PRN PRN Reason: Hypoglycemia Glucagon () 1 mg IM .X1 PRN PRN Reason: Hypoglycemia Guaifenesin (Robitussin) 10 ml PO Q4H PRN PRN PRN Reason: COUGH Last Admin: 07/25/19 12:10 Dose: 10 ml Documented by: Heparin Sodium (Porcine) (Heparin Na) 0 unit IV UD PRN; Protocol Sodium Chloride () 250 mls @ 15 mls/hr IV .[id number] PRN PRN Reason: Saline Flush Sodium Chloride () 250 mls @ 15 mls/hr IV .[id number] PRN PRN Reason: Additional IVPB Infusion Dextrose (Dextrose 10%-Water) 250 mls @ 999 mls/hr IV .Q16M PRN; Protocol PRN Reason: HYPOGLYCEMIA Insulin Glargine (Lantus (Bkc)) 30 units SC QHS [facility] Last Admin: 07/25/19 00:37 Dose: Not Given Documented by: Insulin Human Lispro (Humalog Kwikpen (Bkc)) 0 unit SC ACHS [facility]; Protocol Last Admin: 07/25/19 12:09 Dose: 2 u Documented by: Isosorbide Mononitrate (Imdur) 60 mg PO BID [facility] Last Admin: 07/25/19 09:15 Dose: Not Given Documented by: Levothyroxine Sodium (Synthroid) 100 mcg PO DAILY@0600 [facility] Last Admin: 07/25/19 05:25 Dose: 100 mcg Documented by: Losartan Potassium (Cozaar) 50 mg PO DAILY [facility] Last Admin: 07/25/19 09:05 Dose: 50 mg Documented by: Metolazone (Zaroxolyn) 2.5 mg PO [facility]) [facility] Last Admin: 07/25/19 09:05 Dose: 1 tablet Documented by: Nitroglycerin (Nitrostat) 0.4 mg SUBLINGUAL Q5M PRN PRN Reason: Angina pain Ondansetron HCl (Zofran) 4 mg IV Q8H PRN PRN PRN Reason: NAUSEA/VOMITING Potassium Chloride (K-Dur) 20 meq PO DAILY [facility] Last Admin: 07/25/19 09:04 Dose: 20 meq Documented by: Pravastatin Sodium (Pravachol) 80 mg PO QHS [facility] Ranolazine (Ranexa) 1,000 mg PO BID [facility] Last Admin: 07/25/19 09:05 Dose: 1,000 mg Documented by: Sodium Chloride () 10 - 40 ml IV UD PRN PRN Reason: SALINE FLUSH Last Admin: 07/25/19 09:25 Dose: 10 ml Documented by: Ticagrelor (Brilinta) 90 mg PO BID [facility] Last Admin: 07/25/19 09:11 Dose: 90 mg Documented by: Assessment/Plan This patient was seen in conjunction with Lucero MONTANO. I have independently interviewed and examined the patient and reviewed pertinent history, examination findings, laboratory and plan of management. I have reviewed the note and agree with the documented findings with the few additional points. In brief, patient is admitted for chest pain and was found to have ST depression in multiple leads with elevated troponins consistent with non-ST elevation PR. 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 She was then transferred to [facility] and was seen by Dr. Oliveira. There, it was reminded that coronary anatomy is not suitable for revascularization by [facility], patient is on medical management. On aspirin, Brilinta, Ranexa, Lasix, losartan and carvedilol. Patient has other comorbidities as mentioned above. Has pancytopenia, chronic in nature. H&H 9.03/03. Platelet count 120,000. I have discussed my assessment with MAINSPRING WINDERLucero and orders have been reviewed. Code Visit Inpatient E&M: 87951 Subs Hosp L3
[2019-07-25 16:01] LABS: Bedside Glucose 223 mg/dL (70-110)
[2019-07-25] MEDS: Pravastatin 80 MG Tablet PO (21:40)
[2019-07-25 21:55] LABS: Bedside Glucose 206 mg/dL (70-110)
[2019-07-26 02:59] VITALS: PULSE 58
[2019-07-26 03:20] VITALS: BP 111/50; PULSE 63; RESP 16; TEMP 36.6; O2SAT 99
[2019-07-26 06:17] LABS: Hematocrit 26.8 % (37-47); Hemoglobin 8.7 g/dL (12.0-15.0); Mean Corp Hgb Conc 32.5 g/dL (32-36); Mean Corpuscular Hgb 31.6 pg (27.0-32.0); Mean Corpuscular Volume 97.5 fL (81-99); Mean Platelet Vol. 9.9 fl (6.2-12.0); Platelet Count 106 K/mm3 (150-450); RBC Distribution Width CV 13.3 % (11.6-14.6); RBC Distribution Width SD 47.7 fl (35.1-43.9); Red Blood Count 2.75 M/mm3 (4.2-5.4); White Blood Count 2.8 K/mm3 (4.4-11.0)
[2019-07-26] MEDS: Levothyroxine 100 MCG Tablet PO (06:32)
[2019-07-26 06:41] LABS: Bedside Glucose 65 mg/dL (70-110)
[2019-07-26 07:00] VITALS: O2SAT 95
[2019-07-26 07:01] LABS: Bedside Glucose 86 mg/dL (70-110)
[2019-07-26 09:20] VITALS: BP 106/67; PULSE 72; RESP 18; TEMP 36.7; O2SAT 96
[2019-07-26] MEDS: Aspirin 81 MG TAB.CHEW PO (09:42)
[2019-07-26] MEDS: Carvedilol 3.125 MG TABLET PO (09:43)
[2019-07-26] MEDS: Folic Acid 1 MG Tablet 0.5 MG PO (09:43)
[2019-07-26] MEDS: Multivitamins,Therapeutic Tablet 1 TABLET PO (09:44)
[2019-07-26] MEDS: Losartan Potassium 50 MG Tablet PO (09:45)
[2019-07-26] MEDS: Doxycycline 100 MG CAPSULE PO (09:45)
[2019-07-26] MEDS: Isosorbide Mononitrate 60 MG Tablet PO (09:45)
[2019-07-26] MEDS: Ascorbic Acid 500 MG Tablet PO (09:46)
[2019-07-26] MEDS: Ranolazine 500 MG Tablet 1000 MG PO (09:46)
[2019-07-26] MEDS: Furosemide 40 MG Tablet PO (09:46)
[2019-07-26] MEDS: amLODIPine 5 MG Tablet PO (09:47)
[2019-07-26] MEDS: Heparin Injection (Vial) 5,000 UNIT/ML VIAL 5000 UNIT SC (09:47)
[2019-07-26] MEDS: guaiFENesin 10 ML UDC (200MG/10ML) PO (09:48)
[2019-07-26] MEDS: Acetaminophen 325 MG Tablet 650 MG PO (09:50)
[2019-07-26] MEDS: TICAGRELOR 90 MG TABLET PO (09:50)
--- NOTE | 2019-07-26 10:31 | PCM.DC ---
- Discharge Diagnoses Current Active Problems: Current Active and Chronic Problems (Last Reviewed 07/25/19 @ 09:00 by Reji Galindo MD) NSTEMI (non-ST elevated myocardial infarction) (Acute) NSTEMI (non-ST elevated myocardial infarction) (Acute) You will use the following diet at home:: Calorie/Carbohydrate Controlled (specify 1200, 1400, etc), Cardiac Discharge Activity: Return to Normal Activity Call your doctor if you observe: Shortness of breath, Dizziness, Fainting spells, Chest pain Allergies/Adverse Reactions: Allergies aripiprazole [From Abilify] Allergy (Intermediate, Verified 07/24/19 19:24) it over powered me lisinopril Allergy (Intermediate, Verified 07/24/19 19:24) Unknown atorvastatin calcium [From Lipitor] Adverse Reaction (Verified 07/24/19 19:24) Unknown rosiglitazone maleate [From Avandia] Adverse Reaction (Verified 07/24/19 19:24) Other Medications to take at Discharge Aspirin [Aspirin, Baby] 81 mg PO DAILY@0800 06/30/17 Nitroglycerin [Nitrostat] 0.4 mg SL PRN PRN 06/30/17 Multivitamins,Therapeutic [Multivitamin] 1 tab PO DAILY 02/01/18 ascorbic acid (vitamin C) 500 mg tablet 500 mg PO DAILY 09/13/18 insulin regular human 100 unit/mL injection solution 5 - 10 unit SC TID ml 09/13/18 losartan 50 mg tablet 50 mg PO DAILY #30 tab 10/03/18 pravastatin 80 mg tablet 80 mg PO DAILY #30 tab 10/03/18 ranolazine 1,000 mg tablet,extended release,12 hr 1,000 mg PO BID #60 tab 10/03/18 ticagrelor 90 mg tablet 90 mg PO BID #60 tab 10/03/18 Insulin Glargine,Hum.rec.anlog [Toujeo Solostar] 34 unit SC DAILY 04/23/19 Potassium Chloride [K-Dur] 20 meq PO DAILY #30 tab 04/23/19 Carvedilol [Coreg] 3.125 mg PO BIDCM 06/24/19 Cholecalciferol (Vitamin D3) [Vitamin D3] 5,000 unit PO DAILY 06/24/19 Folic Acid 0.4 mg PO DAILY@0800 06/24/19 Furosemide 40 mg PO BID 06/24/19 Metolazone 2.5 mg PO WE 06/24/19 Levothyroxine [Synthroid] 100 mcg PO DAILY 07/24/19 Amlodipine [Norvasc] 5 mg PO DAILY #30 tab 07/26/19 Isosorbide Mononitrate [Imdur] 60 mg PO BID #60 tab 07/26/19 The following prescriptions were given: Isosorbide Mononitrate [Imdur] 60 mg PO BID #60 tab Transmission Status: Pending to [facility] Amlodipine [Norvasc] 5 mg PO DAILY #30 tab Transmission Status: Pending to [facility] Primary Care Physician: Diana Cohen MD [Primary Care Provider] - Please follow up with your Primary Care Physician in: 1 Week Test Results: Test results from this visit will be discussed in further detail at your follow-up appointment, if applicable. 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
--- NOTE | 2019-07-26 10:40 | PCM.DC.SUM ---
<Jp Russell - Last Filed: 07/26/19 12:14> Discharge Date and Diagnosis - Secondary Discharge Diagnosis Chronic Problems (Last Reviewed 07/25/19 @ 09:00 by Reji Galindo MD) Non-rheumatic mitral regurgitation (Chronic) Nonrheumatic tricuspid valve regurgitation (Chronic) Essential hypertension (Chronic) Thrombocytopenia (Chronic) CAD (coronary artery disease) (Chronic) History of spinal fusion (Chronic) anterior Non-rheumatic aortic stenosis (Chronic) History of coronary artery stent placement (Chronic 06/25/19) PTCA-ostial/prox LCx @ [facility] 11/09/2017 PTCA-Cutting Balloon Atherectomy w/ placement of 2.5 x 20 mm Synergy Stent, Distal LM-into the Ostium of LAD Stented w/ 4.0 x 16 mm Synergy Stent 06/2017PTCA-OM 04/2017 PCI-LAD with a 2.75x38 Promus Premier drug eluting stent. 12/15/13 RAYMON of Right Posterior Lateral (Mid) wIth 3.0 x 2.8 Cypher, followed upstream with 3.0 x 8 Cypher, RAYMON of Right PDA (Ostial) with 25 x 28 Cypher 09/17/2007; 06/25/2019:LVEF: by LV gram 45-50 % Depressed Left Ventricular systolic function - Mild; Single vessel CAD of the ostial/proximal LCX in stent restenosis. Non obstructive coronary arteries of LM, LAD and RCA. Referred for immediate PCI to Dr Yao at [facility] given high risk nature and proximity to LM and LAD. Chronic systolic (congestive) heart failure (Chronic) Schizophrenia (Chronic) S/P PTCA (percutaneous transluminal coronary angioplasty) (Chronic ~11/09/17) PCI of ostial and mid LCX in-stent restenosis with laser atherectomy, balloon angioplasty per Dr. Rodriguez [facility] 08/20/18 PCI PTCA and laser atherectomy of proximal Circumflex 02/03/2018 PTCA-ostial/prox LCx @ [facility] 11/09/2017 PTCA-Cutting Balloon Atherectomy w/ placement of 2.5 x 20 mm Synergy Stent, Distal LM-into the Ostium of LAD Stented w/ 4.0 x 16 mm Synergy Stent 06/2017PTCA-OM 04/2017 PCI-LAD with a 2.75x38 Promus Premier drug eluting stent. 12/15/13 RAYMON of Right Posterior Lateral (Mid) wIth 3.0 x 2.8 Cypher, followed upstream with 3.0 x 8 Cypher, RAYMON of Right PDA (Ostial) with 25 x 28 Cypher 09/17/2007 History of coronary artery stent placement (Chronic) Atherosclerotic heart disease havasupai coronary artery w/angina pectoris (Chronic) PCI of ostial and mid LCX in-stent restenosis with laser atherectomy, balloon angioplasty per Dr. Rodriguez [facility] 08/20/18 PCI PTCA and laser atherectomy of proximal Circumflex 02/03/2018 PTCA-ostail/prox LCx @ [facility] 11/09/2017 PTCA-Cutting Balloon Atherectomy w/ placement of 2.5 x 20 mm Synergy Stent, Distal LM-into the Ostium of LAD Stented w/ 4.0 x 16 mm Synergy Stent 06/2017PTCA-OM 04/2017 PCI-LAD with a 2.75x38 Promus Premier drug eluting stent. 12/15/13 RAYMON of Right Posterior Lateral (Mid) wIth 3.0 x 2.8 Cypher, followed upstream with 3.0 x 8 Cypher, RAYMON of Right PDA (Ostial) with 25 x 28 Cypher 09/17/2007 Pancytopenia (Chronic) Hypothyroidism (Chronic) Hyperlipidemia (Chronic) Diabetes mellitus, type II (Chronic) Venous insufficiency (Chronic) NSTEMI (non-ST elevated myocardial infarction) (Chronic ~09/16/17) Intermittent claudication (Chronic) Obesity (BMI 30.0-34.9) (Chronic) Hospital Course and Treatment Summary of Care Provided: This patient was seen in conjunction with SCHOOL ADMINISTRATORLucero. I have independently interviewed and examined the patient and reviewed pertinent history, examination findings, laboratory and plan of management. I have reviewed the note and agree with the documented findings with the few additional points. In brief, patient is admitted for chest pain and was found to have ST depression in multiple leads with elevated troponins consistent with non-ST elevation [place]. 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 She was then transferred to [facility] and was seen by Dr. Oliveira. There, it was reminded that coronary anatomy is not suitable for revascularization by [facility] [place], patient is on medical management. Patient has multiple valvular heart disease including mild MR and mild aortic stenosis. EF 55% with stage I diastolic dysfunction. Imdur was increased to 60 mg twice daily, amlodipine increased to 5 mg daily. She has subjective improvement; feeling better on oxygen although does not qualify for oxygen as per insurance requirement. On aspirin, Brilinta, Ranexa, Lasix, losartan and carvedilol. Patient hemodynamically stable blood pressure 111/50. Pulse ox 95 to 96% on 1 L of oxygen. Heart rate in 60s. Discharge medication reconciliation done. Discharge follow-up instructions completed. Discharge process discussed with the patient and all questions were answered to patient's satisfaction. Total time spent, exact 35 minutes on discharge meds reconciliation, examination, review of imaging and blood test and discussion with the patient on follow-up instructions. Patient has other comorbidities as mentioned above. Has pancytopenia, chronic in nature. H&H 9.03/03. Platelet count 120,000. I have discussed my assessment with SCHOOL ADMINISTRATORLucero and orders have been reviewed. [] Subjective: Patient concern for the need of oxygen. Patient was told that her oxygen level was 96% on 1 L of oxygen and therefore does not qualify for home oxygen aspiration is required. Patient states she gets mild short of breath on walking otherwise no shortness of breath or chest pain at rest. - Physical Exam Vitals/I&O's: Vital Signs Temp Pulse Resp BP Pulse Ox 98.1 F 72 18 106/67 96 07/26/19 09:20 07/26/19 09:20 07/26/19 09:20 07/26/19 09:20 07/26/19 09:20 Oxygen Flow Rate (L/min) 1 Oxygen Delivery Method Nasal Cannula Weight: 202 lb 6.15 oz Body Mass Index (BMI) 31.6 Finger Stick Blood Glucose 270 Intake and Output for Last 24 Hours 07/24/19 07/25/19 07/26/19 23:59 23:59 23:59 Intake Total 980 / 980 1555.67 / 1555.67 120 / 120 Output Total 650 / 650 2400 / 2400 Balance 330 / 330 -844.33 / -844.33 120 / 120 General: Alert, Oriented x3, Cooperative HEENT: Atraumatic, PERRLA, EOMI, Normocephalic Neck: Supple, No JVD, Negative Carotid Bruits Lungs: Clear to auscultation, No rhonchi, No wheeze, No rales, Diminished Cardiovascular: Regular rate, Regular Rhythm, Normal S1, Normal S2, Murmur Abdomen: Bowel Sounds Present, Soft, Non Tender, Non-Distended Extremities: Capillary Refill Less than 3 Seconds, Edema Skin: No rashes, No breakdown Musculoskeletal: No Tenderness to Palpation of Joints or Extremities, Arthritic Changes Neurological: Cranial nerves II-XII grossly intact, Deep Tendon Reflexes 2+/4 and Symmetrical, Neuro grossly intact Psych/Mental Status: Normal Affect, Appropriate Laboratory Results 07/25/19 15:52: POC Glucose 223 H 07/25/19 21:37: POC Glucose 206 H 07/26/19 05:35: WBC 2.8 L, RBC 2.75 L, Hgb 8.7 L, Hct 26.8 L, MCV 97.5, MCH 31.6, MCHC 32.5, RDW Std Deviation 47.7 H, RDW Coeff of Conchis 13.3, Plt Count 106 L, MPV 9.9 07/26/19 06:34: POC Glucose 65 L 07/26/19 06:57: POC Glucose 86 Current Medications Acetaminophen (Tylenol) 650 mg PO Q6H PRN PRN PRN Reason: Pain Score 1-10/Temp > 100.7 F Last Admin: 07/26/19 09:50 Dose: 650 mg Documented by: Amlodipine Besylate (Norvasc) 5 mg PO DAILY [facility] Last Admin: 07/26/19 09:47 Dose: 5 mg Documented by: Ascorbic Acid (Vitamin C) 500 mg PO DAILY [facility] Last Admin: 07/26/19 09:46 Dose: 500 mg Documented by: Aspirin (Aspirin, Baby) 81 mg PO DAILY@0800 [facility] Last Admin: 07/26/19 09:42 Dose: 81 mg Documented by: Carvedilol (Coreg) 3.[facility] Last Admin: 07/26/19 09:43 Dose: 3.125 mg Documented by: Cholecalciferol (Vitamin D) 5,000 unit PO DAILY [facility] Last Admin: 07/26/19 09:46 Dose: 5,000 unit Documented by: Folic Acid (Folic Acid) 0.5 mg PO DAILY@0800 [facility] Last Admin: 07/26/19 09:43 Dose: 0.5 mg Documented by: Furosemide (Lasix) 40 mg PO BID [facility] Last Admin: 07/26/19 09:46 Dose: 40 mg Documented by: Glucagon () 1 mg IM .X1 PRN PRN Reason: Hypoglycemia Glucagon () 1 mg IM .X1 PRN PRN Reason: Hypoglycemia Guaifenesin (Robitussin) 10 ml PO Q4H PRN PRN PRN Reason: COUGH Last Admin: 07/26/19 09:48 Dose: 10 ml Documented by: Heparin Sodium (Porcine) (Heparin Na) 5,000 unit SC BID [facility] Last Admin: 07/26/19 09:47 Dose: 5,000 unit Documented by: Sodium Chloride () 250 mls @ 15 mls/hr IV .[id number] PRN PRN Reason: Saline Flush Sodium Chloride () 250 mls @ 15 mls/hr IV .[id number] PRN PRN Reason: Additional IVPB Infusion Dextrose (Dextrose 10%-Water) 250 mls @ 999 mls/hr IV .Q16M PRN; Protocol PRN Reason: HYPOGLYCEMIA Insulin Glargine (Lantus (Bk)) 35 units SC QHS [facility] Last Admin: 07/25/19 21:51 Dose: 35 units Documented by: Insulin Human Lispro (Humalog Kwikpen ([facility])) 0 unit SC ACHS [facility]; Protocol Last Admin: 07/26/19 07:00 Dose: Not Given Documented by: Isosorbide Mononitrate (Imdur) 60 mg PO BID [facility] Last Admin: 07/26/19 09:45 Dose: 60 mg Documented by: Levothyroxine Sodium (Synthroid) 100 mcg PO DAILY@0600 [facility] Last Admin: 07/26/19 06:32 Dose: 100 mcg Documented by: Losartan Potassium (Cozaar) 50 mg PO DAILY [facility] Last Admin: 07/26/19 09:45 Dose: 50 mg Documented by: Metolazone (Zaroxolyn) 2.[address] [facility] Multivitamins (Multivitamin) 1 tablet [facility] Last Admin: 07/26/19 09:44 Dose: 1 tablet Documented by: Nitroglycerin (Nitrostat) 0.4 mg SUBLINGUAL Q5M PRN PRN Reason: Angina pain Ondansetron HCl (Zofran) 4 mg IV Q8H PRN PRN PRN Reason: NAUSEA/VOMITING Potassium Chloride (K-Dur) 20 meq PO DAILY [facility] Last Admin: 07/26/19 09:45 Dose: 20 meq Documented by: Pravastatin Sodium (Pravachol) 80 mg PO QHS [facility] Last Admin: 07/25/19 21:40 Dose: 80 mg Documented by: Ranolazine (Ranexa) 1,000 mg PO BID [facility] Last Admin: 07/26/19 09:46 Dose: 1,000 mg Documented by: Sodium Chloride () 10 - 40 ml IV UD PRN PRN Reason: SALINE FLUSH Last Admin: 07/25/19 09:25 Dose: 10 ml Documented by: Ticagrelor (Brilinta) 90 mg PO BID [facility] Last Admin: 07/26/19 09:50 Dose: 90 mg Documented by: Home Medications: Medications to take at Discharge Aspirin [Aspirin, Baby] 81 mg PO DAILY@0800 06/30/17 Nitroglycerin [Nitrostat] 0.4 mg SL PRN PRN 06/30/17 Multivitamins,Therapeutic [Multivitamin] 1 tab PO DAILY 02/01/18 ascorbic acid (vitamin C) 500 mg tablet 500 mg PO DAILY 09/13/18 insulin regular human 100 unit/mL injection solution 5 - 10 unit SC TID ml 09/13/18 losartan 50 mg tablet 50 mg PO DAILY #30 tab 10/03/18 pravastatin 80 mg tablet 80 mg PO DAILY #30 tab 10/03/18 ranolazine 1,000 mg tablet,extended release,12 hr 1,000 mg PO BID #60 tab 10/03/18 ticagrelor 90 mg tablet 90 mg PO BID #60 tab 10/03/18 Insulin Glargine,Hum.rec.anlog [Soha Bejarano] 34 unit SC DAILY 04/23/19 Potassium Chloride [K-Dur] 20 meq PO DAILY #30 tab 04/23/19 Carvedilol [Coreg] 3.125 mg PO BIDCM 06/24/19 Cholecalciferol (Vitamin D3) [Vitamin D3] 5,000 unit PO DAILY 06/24/19 Folic Acid 0.4 mg PO DAILY@0800 06/24/19 Furosemide 40 mg PO BID 06/24/19 Metolazone 2.5 mg PO WE 06/24/19 Levothyroxine [Synthroid] 100 mcg PO DAILY 07/24/19 Amlodipine [Norvasc] 5 mg PO DAILY #30 tab 07/26/19 Isosorbide Mononitrate [Imdur] 60 mg PO BID #60 tab 07/26/19 Following Prescrptions Were Given to Patient: Isosorbide Mononitrate [Imdur] 60 mg PO BID #60 tab Transmission Status: Received by [facility] Amlodipine [Norvasc] 5 mg PO DAILY #30 tab Transmission Status: Received by [facility] Primary Care Physician: Diana Cohen MD [Primary Care Provider] - Code Visit Inpatient E&M: [id number] Disch Hosp <Lucero Valera - Last Filed: 07/26/19 12:22> Discharge Date and Diagnosis Date of Admission: 07/24/19 Date of Discharge: 07/26/19 - Primary Discharge Diagnosis Active and Suspected Problems (Last Reviewed 07/25/19 @ 09:00 by Reji Galindo MD) 1. NSTEMI/CAD 2. Chronic pancytopenia 3. Hypothyroidism 4. Recent URI 5. Type 2 diabetes mellitus 6. Chronic diastolic CHF - Secondary Discharge Diagnosis Chronic Problems (Last Reviewed 07/25/19 @ 09:00 by Reji Galindo MD) Non-rheumatic mitral regurgitation (Chronic) Nonrheumatic tricuspid valve regurgitation (Chronic) Essential hypertension (Chronic) Thrombocytopenia (Chronic) CAD (coronary artery disease) (Chronic) History of spinal fusion (Chronic) anterior Non-rheumatic aortic stenosis (Chronic) History of coronary artery stent placement (Chronic 06/25/19) PTCA-ostial/prox LCx @ [facility] 11/09/2017 PTCA-Cutting Balloon Atherectomy w/ placement of 2.5 x 20 mm Synergy Stent, Distal LM-into the Ostium of LAD Stented w/ 4.0 x 16 mm Synergy Stent 06/2017PTCA-OM 04/2017 PCI-LAD with a 2.75x38 Promus Premier drug eluting stent. 12/15/13 RAYMON of Right Posterior Lateral (Mid) wIth 3.0 x 2.8 Cypher, followed upstream with 3.0 x 8 Cypher, RAYMON of Right PDA (Ostial) with 25 x 28 Cypher 09/17/2007; 06/25/2019:LVEF: by LV gram 45-50 % Depressed Left Ventricular systolic function - Mild; Single vessel CAD of the ostial/proximal LCX in stent restenosis. Non obstructive coronary arteries of LM, LAD and RCA. Referred for immediate PCI to Dr Yao at [facility] given high risk nature and proximity to LM and LAD. Chronic systolic (congestive) heart failure (Chronic) Schizophrenia (Chronic) S/P PTCA (percutaneous transluminal coronary angioplasty) (Chronic ~11/09/17) PCI of ostial and mid LCX in-stent restenosis with laser atherectomy, balloon angioplasty per Dr. Rodriguez [facility] 08/20/18 PCI PTCA and laser atherectomy of proximal Circumflex 02/03/2018 PTCA-ostial/prox LCx @ [facility] 11/09/2017 PTCA-Cutting Balloon Atherectomy w/ placement of 2.5 x 20 mm Synergy Stent, Distal LM-into the Ostium of LAD Stented w/ 4.0 x 16 mm Synergy Stent 06/2017PTCA- 04/2017 PCI-LAD with a 2.75x38 Promus Premier drug eluting stent. 12/15/13 RAYMON of Right Posterior Lateral (Mid) wIth 3.0 x 2.8 Cypher, followed upstream with 3.0 x 8 Cypher, RAYMON of Right PDA (Ostial) with 25 x 28 Cypher 09/17/2007 History of coronary artery stent placement (Chronic) Atherosclerotic heart disease havasupai coronary artery w/angina pectoris (Chronic) PCI of ostial and mid LCX in-stent restenosis with laser atherectomy, balloon angioplasty per Dr. Rodriguez [facility] 08/20/18 PCI PTCA and laser atherectomy of proximal Circumflex 02/03/2018 PTCA-ostail/prox LCx @ [facility] 11/09/2017 PTCA-Cutting Balloon Atherectomy w/ placement of 2.5 x 20 mm Synergy Stent, Distal LM-into the Ostium of LAD Stented w/ 4.0 x 16 mm Synergy Stent 06/2017PTCA-OM 04/2017 PCI-LAD with a 2.75x38 Promus Premier drug eluting stent. 12/15/13 RAYMON of Right Posterior Lateral (Mid) wIth 3.0 x 2.8 Cypher, followed upstream with 3.0 x 8 Cypher, RAYMON of Right PDA (Ostial) with 25 x 28 Cypher 09/17/2007 Pancytopenia (Chronic) Hypothyroidism (Chronic) Hyperlipidemia (Chronic) Diabetes mellitus, type II (Chronic) Venous insufficiency (Chronic) NSTEMI (non-ST elevated myocardial infarction) (Chronic ~09/16/17) Intermittent claudication (Chronic) Obesity (BMI 30.0-34.9) (Chronic) Hospital Course and Treatment Imaging Results: Diagnostic Data Chest X-Ray 07/24/19 20:28 IMPRESSION: Normal x-ray examination of the chest. Electronically Signed: Jhoan Myers DO at 20:57 EST Tel , Service support , Dr. Malik- Cardiology Operations: None Procedures: 2-D Echocardiogram Summary of Care Provided: The patient is a 79 year old F admitted 07/24/2019 due to chest pain. 1. NSTEMI/CAD-cardiology consulted during admission. Patient follows with Dr. Malik. Patient had recent evaluation at [facility]. Per cardiology, she has non-correctable CAD. Plan to continue aggressive medical management. Her Imdur was increased to 60 mg twice daily. Amlodipine increased to 5 mg daily. Echocardiogram demonstrated EF 55%, stage I diastolic dysfunction, mild mitral valve insufficiency, RVSP estimated to be 31 mmHg, mild aortic stenosis. Continue aspirin, Brilinta, Ranexa, Lasix, carvedilol. Patient feels her symptoms are improved on supplemental oxygen however walking pulse ox completed and patient did not qualify for home oxygen. Follow up with PCP for further assessment. 2. Chronic pancytopenia-stable, continue outpatient monitoring of CBC. 3. Hypothyroidism-continue Synthroid regimen. 4. Recent URI-completed previously prescribed course of doxycycline. 5. Type 2 diabetes mellitus-continue home insulin regimen. 6. Chronic diastolic CHF-echocardiogram in 2018 demonstrated an EF of 53%. Repeat echo as noted above. Continue medication regimen as noted above. General: Alert, Oriented x3, Cooperative HEENT: Atraumatic, PERRLA, EOMI, Normocephalic Neck: Supple, No JVD, Negative Carotid Bruits Lungs: Clear to auscultation, Normal air movement Cardiovascular: Regular rate, Regular Rhythm, Normal S1, Normal S2, Murmur Abdomen: Bowel Sounds Present, Soft, Non Tender, Non-Distended Extremities: No clubbing, No cyanosis, Capillary Refill Less than 3 Seconds, Edema - Nonpitting bilateral lower extremities Skin: No rashes, No breakdown Musculoskeletal: No Tenderness to Palpation of Joints or Extremities Neurological: Cranial nerves II-XII grossly intact, Neuro grossly intact Psych/Mental Status: Normal Affect, Appropriate Patient seen and examined prior to discharge. Physical assessment as noted above. Patient is stable for discharge with follow up recommendations as noted above. This patient was seen by MARTY Ugalde under the supervision of Dr. Russell. - Physical Exam Vitals/I&O's: Vital Signs Temp Pulse Resp BP Pulse Ox 98.1 F 72 18 106/67 96 07/26/19 09:20 07/26/19 09:20 07/26/19 09:20 07/26/19 09:20 07/26/19 09:20 Oxygen Flow Rate (L/min) 1 Oxygen Delivery Method Nasal Cannula Weight: 202 lb 6.15 oz Body Mass Index (BMI) 31.6 Finger Stick Blood Glucose 270 Intake and Output for Last 24 Hours 07/24/19 07/25/19 07/26/19 23:59 23:59 23:59 Intake Total 980 / 980 1555.67 / 1555.67 120 / 120 Output Total 650 / 650 2400 / 2400 Balance 330 / 330 -844.33 / -844.33 120 / 120 Laboratory Results 07/25/19 12:02: POC Glucose 197 H 07/25/19 15:52: POC Glucose 223 H 07/25/19 21:37: POC Glucose 206 H 07/26/19 05:35: WBC 2.8 L, RBC 2.75 L, Hgb 8.7 L, Hct 26.8 L, MCV 97.5, MCH 31.6, MCHC 32.5, RDW Std Deviation 47.7 H, RDW Coeff of Conchis 13.3, Plt Count 106 L, MPV 9.9 07/26/19 06:34: POC Glucose 65 L 07/26/19 06:57: POC Glucose 86 Current Medications Acetaminophen (Tylenol) 650 mg PO Q6H PRN PRN PRN Reason: Pain Score 1-10/Temp > 100.7 F Last Admin: 07/26/19 09:50 Dose: 650 mg Documented by: Amlodipine Besylate (Norvasc) 5 mg PO DAILY [facility] Last Admin: 07/26/19 09:47 Dose: 5 mg Documented by: Ascorbic Acid (Vitamin C) 500 mg PO DAILY [facility] Last Admin: 07/26/19 09:46 Dose: 500 mg Documented by: Aspirin (Aspirin, Baby) 81 mg PO DAILY@0800 [facility] Last Admin: 07/26/19 09:42 Dose: 81 mg Documented by: Carvedilol (Coreg) 3.125 mg PO BIDCM [facility] Last Admin: 07/26/19 09:43 Dose: 3.125 mg Documented by: Cholecalciferol (Vitamin D) 5,000 unit PO DAILY [facility] Last Admin: 07/26/19 09:46 Dose: 5,000 unit Documented by: Folic Acid (Folic Acid) 0.5 mg PO DAILY@0800 [facility] Last Admin: 07/26/19 09:43 Dose: 0.5 mg Documented by: Furosemide (Lasix) 40 mg PO BID [facility] Last Admin: 07/26/19 09:46 Dose: 40 mg Documented by: Glucagon () 1 mg IM .X1 PRN PRN Reason: Hypoglycemia Glucagon () 1 mg IM .X1 PRN PRN Reason: Hypoglycemia Guaifenesin (Robitussin) 10 ml PO Q4H PRN PRN PRN Reason: COUGH Last Admin: 07/26/19 09:48 Dose: 10 ml Documented by: Heparin Sodium (Porcine) (Heparin Na) 5,000 unit SC BID [facility] Last Admin: 07/26/19 09:47 Dose: 5,000 unit Documented by: Sodium Chloride () 250 mls @ 15 mls/hr IV .[id number] PRN PRN Reason: Saline Flush Sodium Chloride () 250 mls @ 15 mls/hr IV .[id number] PRN PRN Reason: Additional IVPB Infusion Dextrose (Dextrose 10%-Water) 250 mls @ 999 mls/hr IV .Q16M PRN; Protocol PRN Reason: HYPOGLYCEMIA Insulin Glargine (Lantus ([facility])) 35 units SC QHS [facility] Last Admin: 07/25/19 21:51 Dose: 35 units Documented by: Insulin Human Lispro (Humalog Kwikpen ([facility])) 0 unit SC ACHS [facility]; Protocol Last Admin: 07/26/19 07:00 Dose: Not Given Documented by: Isosorbide Mononitrate (Imdur) 60 mg PO BID [facility] Last Admin: 07/26/19 09:45 Dose: 60 mg Documented by: Levothyroxine Sodium (Synthroid) 100 mcg PO DAILY@0600 [facility] Last Admin: 07/26/19 06:32 Dose: 100 mcg Documented by: Losartan Potassium (Cozaar) 50 mg PO DAILY [facility] Last Admin: 07/26/19 09:45 Dose: 50 mg Documented by: Metolazone (Zaroxolyn) 2.[address] [facility] Multivitamins (Multivitamin) [facility] Last Admin: 07/26/19 09:44 Dose: 1 tablet Documented by: Nitroglycerin (Nitrostat) 0.4 mg SUBLINGUAL Q5M PRN PRN Reason: Angina pain Ondansetron HCl (Zofran) 4 mg IV Q8H PRN PRN PRN Reason: NAUSEA/VOMITING Potassium Chloride (K-Dur) 20 meq PO DAILY [facility] Last Admin: 07/26/19 09:45 Dose: 20 meq Documented by: Pravastatin Sodium (Pravachol) 80 mg PO QHS [facility] Last Admin: 07/25/19 21:40 Dose: 80 mg Documented by: Ranolazine (Ranexa) 1,000 mg PO BID [facility] Last Admin: 07/26/19 09:46 Dose: 1,000 mg Documented by: Sodium Chloride () 10 - 40 ml IV UD PRN PRN Reason: SALINE FLUSH Last Admin: 07/25/19 09:25 Dose: 10 ml Documented by: Ticagrelor (Brilinta) 90 mg PO BID [facility] Last Admin: 07/26/19 09:50 Dose: 90 mg Documented by: Discharge Diet: Low fat/ Low Cholesterol, 1800 Calorie Control Diet, Carb Control Diet Discharge Activity: Return to Normal Activity Call your doctor if you observe: Shortness of breath, Dizziness, Fainting spells, Chest pain Please follow up with your Primary Care Physician in: 1 Week Please Follow Up With: Yvan Malik MD When: 1-2 Weeks, may see customer success intern/pa Disposition: Home Minutes spent on discharge:: 35 Patient Condition:: Stable Medical Necessity - Tobacco Use Smoking Status: Never smoker Tobacco Use: Non-smoker Meaningful Use Info Meaningful Use Diagnoses (Choose all that apply): AMI - AMI Aspirin given w/in 24hrs of arrival?: Yes ASA at discharge?: Yes Statins at discharge?: Yes Grupo/ARB at discharge?: Yes Beta Slade at discharge?: Yes Done w/ Acute VA measure.: Yes Documented LVEF (%): 55
[2019-07-26 10:47] VITALS: O2SAT 90
--- NOTE | 2019-07-26 13:12 | PN.CARD_ITS ---
Subjectve: 79-year-old white female was admitted for recurrence of chest pain and elevated troponin. For the last 10 years, patient has had multivessel angioplasty and stenting for triple-vessel coronary artery disease. And also involved stenting of the left main into the left anterior descending. The last PCI was done August 2018. At that time patient had laser atherectomy of the in-stent restenosis of the proximal left circumflex. June of this year, patient had repeat cardiac catheterization and showed recurrence of in-stent restenosis of the left circumflex. She has been treated conservatively this time with no further intervention. At the moment vital signs normal. Echocardiogram showed mild to moderate aortic stenoses as well as normal wall motion. Objective: Vital Signs Temp Pulse Resp BP Pulse Ox 98.1 F 72 18 106/67 90 07/26/19 09:20 07/26/19 09:20 07/26/19 09:20 07/26/19 09:20 07/26/19 10:47 Oxygen Flow Rate (L/min) 1 Oxygen Delivery Method Nasal Cannula Weight: 202 lb 6.15 oz Body Mass Index (BMI) 31.6 Finger Stick Blood Glucose 270 Intake and Output for Last 24 Hours 07/24/19 07/25/19 07/26/19 23:59 23:59 23:59 Intake Total 980 / 980 1555.67 / 1555.67 360 / 360 Output Total 650 / 650 2400 / 2400 Balance 330 / 330 -844.33 / -844.33 360 / 360 General: Awake, Alert, Oriented x 3, Cooperative Lungs: Clear to auscultation Cardiovascular: Regular Rhythm 2/6 systolic ejection murmur best heard at the base of the heart Murmur: Grade 2/6, Harsh, Mid Systolic Abdomen: Bowel Sounds Present, Soft, Non Tender Neurological: No Focal Motor or Sensory Deficit 07/26/19 05:35: WBC 2.8 L, RBC 2.75 L, Hgb 8.7 L, Hct 26.8 L, MCV 97.5, MCH 31.6, MCHC 32.5, Plt Count 106 L, MPV 9.9 Rhythm: EKG: ECHO: Stress Test: Cardiac Cath: PCI: CT Surgery: Holter monitor: EPS: PPM: CXR: Chest CT Scan: Medical Necessity - Tobacco Use Smoking Status: Never smoker Tobacco Use: Non-smoker Assessment/Plan #1 non-STEMI with no recurrence of chest pain, hemodynamically stable, #2 multivessel angioplasty and stenting of left main and triple-vessel disease over the last 10 years. Last cardiac catheterization showed recurrence of in- stent restenosis of the left circumflex. Because of high risk situation, patient did not have further PCI. #3 mild to moderate aortic stenosis Plan: Patient will continue optimal medical therapy and ambulate. No further PCI or cardiac catheterization to be considered at this time because of high syntax score from assessment of cardiac catheterization June Code Visit Inpatient E&M: [id number] [facility] Hosp L1
== END 2019-07-26 13:25 | disposition home or self-care (01) | DRG 281 ==
LOC: ED 20:18 → PCU 22:06
PROVIDERS: Nurse Practitioner Family; Admitting Provider Hospitalist; Emergency Provider Emergency Medicine; Family Provider Internal Medicine; PCP Internal Medicine; Referring Provider Hospitalist; Visit Provider Internal Medicine
DX: I21.4 Non-ST elevation (NSTEMI) myocardial infarction (principal); D61.818 Other pancytopenia; T82.855A Stenosis of coronary artery stent, initial encounter; I50.32 Chronic diastolic (congestive) heart failure; I11.0 Hypertensive heart disease with heart failure; J06.9 Acute upper respiratory infection, unspecified; E03.9 Hypothyroidism, unspecified; E11.9 Type 2 diabetes mellitus without complications; I35.0 Nonrheumatic aortic (valve) stenosis; E78.5 Hyperlipidemia, unspecified; I25.110 Atherosclerotic heart disease of native coronary artery with unstable angina pectoris; I34.0 Nonrheumatic mitral (valve) insufficiency; E66.9 Obesity, unspecified; Z68.31 Body mass index [BMI] 31.0-31.9, adult; I87.2 Venous insufficiency (chronic) (peripheral); Z79.82 Long term (current) use of aspirin; Z79.4 Long term (current) use of insulin; Z95.5 Presence of coronary angioplasty implant and graft; Z98.1 Arthrodesis status
CPT/HCPCS: 36415; 71045; 80048; 82962; 84484; 85025; 85027; 85730; 93005; 93306; 97162; 97166; 97530; 99285; J7030; Q9957; A4216

== ENCOUNTER → 2019-08-14 07:44 | Outpatient (CLI) | payer MEDICARE, MEDICAID, SELFPAY ==
[2019-07-24 23:15] VITALS: BMI 31.6
--- NOTE | 2019-08-14 08:36 | PCM.CR.ITP ---
General Information - General Information Admitting Diagnosis: PCI w/coronary stent, NSTEMI - Education/Goals Barriers to Learning: Vision Impairment Individual Counseling: Initial Assessment: Abnormal Cholesterol Levels - Hyperlipidemia, High Blood Pressure - Hypertension, Overweight/Obesity - Overweight BMI 31.4, Diabetes Cardiac Rehabilitation Goals: 1. Maintain the individual as the primary focus of care. 2. To improve the patient's quality of life. 3. Identification of cardiac risk factors and provide cardiac risk factor management. 4. Enhance the psychosocial status of the patient. 5. Reconditioning enough to allow the patient to resume customary activities. 6. Control symptoms of cardiac disease Scale for measuring improvement of personal goals: Enter appropriate number in Comments. 2 = Unchanged. 3 = Slightly Better. 4 = Moderate Improvement. 5 = Met my Goal Personal Goals: Initial Assessment: Improve management of stress and emotions, Improve energy level, Improve muscle strength and endurance, Improve diet and eating habits (eat healthier), Control risk factors (learn risk factor modification) - DM, CHOLESTEROL, WEIGHT Exercise - Initial Assessment - Visit Date of Eval: 08/14/19 Session #:: 0 - Scheduled to start CR on 09/01/2019 @ 9:15. [facility] Van Transportation scheduled for patient. - Stages of Change Stages of Change:: Action - Physician Prescribed Exercise Modalities: Treadmill - as tolerated due to claudication venous insufficiency, Airdyne, NuStep, SciFit Frequency (days/week): 3x/week for 12 weeks [36 sessions] Intensity: 60-80% age predicted maximum heart rate reserve METs - Progression: 0.5-1.0 MET, RPE 11-14 WEEK: 2.0 Target Heart Rate:: 91-119 - Hypertension Do any of the following apply?: Yes, Medication, Diet Resting Blood Pressure:: 97/59 - Intervention Home Exercise/Activity Goal:: Sitting Time <3 hrs/day - Education Goals:: Warm-up, RPE QUAN Scale, S/S, Safe Exercise, Self-Monitoring - Exercise Program Goals Exercise Program Goals: Aerobic Activity >30 min Nutrition - Initial Assessment - Program Goals Nutrition Program Goals: LDL <70. Total Cholesterol <200. HDL >45. Triglycerides <150. HgbA1C <7%. BMI <25 - Visit Date of Assessment:: 08/14/19 - Stages of Change Stages of Change:: Action - Lipids Total Cholesterol (mg/dL) Goal = less than 200 mg/dL: 136 - 06/25/2019 HDL Cholesterol (mg/dL) Goal = less than 45 mg/dL: 69 LDL Cholesterol (mg/dL) Goal = less than 70 mg/dL: 67 Triglycerides (mg/dL) Goal = less than 150 mg/dL: 55 - Diabetes Diabetes:: Yes Fasting blood glucose:: 224 - 07/24/2019 Hgb A1C: 8.3 Insulin: Yes Non-Insulin Dependent?: Yes Do you monitor your blood sugar at home?: Yes - Weight Management Height: 5 ft 6 in - Weight:: 195 lb Body Fat %:: 31.4 - Intervention Referral to dietitian:: Yes - Why Weight Program Referral to Diabetic Clinic:: Yes - Intial DSMNT & MNGT Will attend diet classes:: Yes - Education Gave educational materials for:: Signs & symptoms of hypoglycemia, Signs & symptoms of hyperglycemia, Relate diabetes to coronary artery disease, Healthy eating Tobacco - Initial Assessment - Program Goals Tobacco Program Goals: Complete smoking cessation. Attend education classes. Improve Knowledge Test score - Stage of Change Stages of Change:: Action - Learning Barriers Learning Barriers: Vision, Ready to Learn - Family Support Do you have family support?: Yes - Tobacco Use Tobacco Use: Non-smoker Do you use smokeless tobacco?: No - Intervention Smoking Cessation Referral:: No Individual Education/Counseling:: No Education Schedule Given:: Yes - Education Attended class for:: Treating Heart Disease, How The Heart Works, What it means to have Heart Disease, How Coronary Artery Disease is Diagnosed, Heart Procedures, What Heart Medications Do, Risk Factors & Modifications, Living an Active Life, Nutrition, Emotions & Heart Disease, Stress Management & Relaxation, Sleep Disorders & Heart Disease Psychosocial - Initial Assess - Target Goals Target Goals: Assess presence or absence of depression. Using a valid screening tool, maximizes coping skills. Positive support system - Stages of Change Stages of Change:: Action - Psychosocial Test Tool Used:: HANDS Depression Questionnaire - Intervention PS - Interventions: Yes Attend Stress Management Classes, No Referral to Mental Health, No Referral to [facility] Case Management, No Referral to Physician, No Uses Stress Management Skills - Education Gave educational materials for:: Coping techniques, Signs & symptoms of depression, Stress management, Relaxation techniques - Patient/Program Goal Preventative Medication(s):: Aspirin - Patient report compliance with daily prescribed medications., CAROL inhibitor, Clopidogrel, Beta radha, Statin/lipid - Assistive Devices Assistive Devices:: Walker - Rollator (wheeled) walker Fall Risk Assessed:: Yes Patient Health Questionnaire Initial Assessment 1. Little interest or pleasure in doing things: Several days 2. Feeling down, depressed, or hopeless: Not at all 3. Trouble falling or staying asleep, or sleeping too much: Nearly every day 4. Feeling tired or having little energy: Nearly every day 5. Poor appetite or overeating: Several days 6. Feeling bad about yourself -- or that you are a failure or have let yourself or your family down: Several days 7. Trouble concentrating on things, such as reading the newspaper or watching television: More than half the days 8. Moving or speaking so slowly that other people could have noticed. Or the opposite - being so fidgety or restless that you have been moving around a lot more than usual: More than half the days 9. Thoughts that you would be better off , or of hurting yourself in some way: Not at all How difficult have these problems made it for you to do your work, take care of things at home, or get along with other people?: Somewhat difficult Total Score: 13 JERRY-Q SV Test - Statements CAD is a disease of the arteries in the heart: False Examples of risk factors for heart disease: True Angina is chest pain or discomfort: True The benefits of resistance training include: True Eating more meat and dairy products: I Don't Know Anti-platelet medications such as aspirin are important: True The only effective way to manage stress: False An exercise warm-up slowly increases heart rate: True Prepared, processed foods usually have high sodium: True Depression is common after a heart attack: True The statin medications lower cholesterol: True To control blood pressure, lower the amount of sodium: True If someone gets chest discomfort during walking: False Transfats are partially hydrogenated vegetable oils: True Sleep apnea that is not treated increases the risk: False To control cholesterol, one should become a vegetarian: False Someone knows if he/she is exercising at the right level: False Diabetes cannot be prevented with exercise & health eating: False Stress is a large risk for heart attack: I Don't Know A diet that can help lower blood pressure is rich in: True - Total Score Total Correct Responses: 17 Self-Efficacy Initial Assessment We would like to know how confident you are in doing certain activities. Please select your confidence level for:: Select your confidence level for the following using the scale 1-10 where 1 is not at all confident and 10 is totally confident. Your score is the average of all 6 responses. Fatigue: How confident are you that you can keep the fatigue caused by your disease from interfering with the things you want to do? Select Number: 1 Physical Discomfort or Pain: How confident are you that you can keep the physical discomfort or pain of your disease from interfering with the things you want to do? Select Number: 1 Emotional Distress: How confident are you that you can keep the emotional distress caused by your disease from interfering with the things you want to do? Select Number: 2 Other Symptoms or Health Problems: How confident are you that you can keep other symptoms or health problems from interfering with the things you want to do? Select Number: 1 Different Tasks and Activities: How confident are you that you can do the different tasks and activities needed to manage your health condition so as to reduce your need to see a doctor? Select Number: 1 Medication: How confident are you that you can do things other than just taking medication to reduce how much your illness affects your everyday life? Select Number: 2 Total Score:: 1 Nutrition Survey - Nutrition Survey Instructions Scoring Instructions: Scoring is as follows: Yes = 1 points. No = 0 point. Patient score that is >/=12 is considered to be at potential nutritional risk and could benefit from a referral to a registered dietitian. - Nutrition Survey Initial Have you lost >10 lbs over the past 2 months without trying?: No Are you following a special diet at home for diabetes, low fat, or low salt?: Yes Are you interested in meeting with a dietitian for help understanding your diet?: Yes Do you eat less than 3 meals a day?: Yes Do you eat fatty meats (miller, sausage, ribs, etc), fried foods, desserts, large amounts of salad dressings, margarine, butter, or cheese most days?: Yes Do you have food allergies? [Enter types in comment field]: No Do you eat in restaurants more than 3 times a week?: No Do you season food with salt, seasoning salt, or garlic salt?: No Do you used canned, boxed, frozen meals, or soups, seasoning packets?: Yes Total Score:: 5
[2019-08-14 08:56] VITALS: BP 97/59
--- NOTE | 2019-08-14 09:21 | PCM.CR.HP2 ---
CR - History & Physical - General Arrival date:: 08/14/19 Arrival time:: 09:21 Date of Referral:: 06/25/19 Date of CR Evaluation:: 08/14/19 Referring Physician: Dr. Harini Malik Primary Diagnosis: PCI with stent - History of Present Cardiac Event Onset Date: Enter Onset Date of cardiac illnesses in Comment field below Current stable Angina Pectoris:: Yes - states takes nitros for CP, doctor said there is nothing that can be done. Acute Myocardial Infarction within 12 months:: Yes Coronary Artery Bypass Graft:: No Heart valve replacement or repair:: No PTCA or coronary stenting:: Yes Heart or Heart-Lung Transplant:: No Heart Failure EF <35%:: No - 45% Type of Symptoms:: cough and chest pain. Interventions with present event:: cardiac cath, transported to [facility] for futher procedures. Were there any complications?: no - Medications Home Medications: Ambulatory Orders Medication Instructions Recorded Aspirin [Aspirin, Baby] 81 mg PO DAILY@0800 06/30/17 Nitroglycerin [Nitrostat] 0.4 mg SL PRN PRN 06/30/17 Multivitamins,Therapeutic 1 tab PO DAILY 02/01/18 [Multivitamin] ascorbic acid (vitamin C) 500 mg 500 mg PO DAILY 09/13/18 tablet insulin regular human 100 unit/mL 5 - 10 unit SC TID ml 09/13/18 injection solution losartan 50 mg tablet 50 mg PO DAILY #30 tab 10/03/18 pravastatin 80 mg tablet 80 mg PO DAILY #30 tab 10/03/18 ranolazine 1,000 mg 1,000 mg PO BID #60 tab 10/03/18 tablet,extended release,12 hr ticagrelor 90 mg tablet 90 mg PO BID #60 tab 10/03/18 Insulin Glargine,Hum.rec.anlog 34 unit SC DAILY 04/23/19 [Touroman Solostmarisabel] Potassium Chloride [K-Dur] 20 meq PO DAILY #30 tab 04/23/19 Carvedilol [Coreg] 3.125 mg PO BIDCM 06/24/19 Cholecalciferol (Vitamin D3) 5,000 unit PO DAILY 06/24/19 [Vitamin D3] Folic Acid 0.4 mg PO DAILY@0800 06/24/19 Furosemide 40 mg PO BID 06/24/19 Metolazone 2.5 mg PO WE 06/24/19 Levothyroxine [Synthroid] 100 mcg PO DAILY 07/24/19 Amlodipine [Norvasc] 5 mg PO DAILY #30 tab 07/26/19 Isosorbide Mononitrate [Imdur] 60 mg PO BID #60 tab 07/26/19 Home Oxygen and Equipment #1 ea 07/28/19 - Allergies Allergies/Adverse Reactions: Allergies aripiprazole [From Abilify] Allergy (Intermediate, Verified 07/24/19 19:24) it over powered me lisinopril Allergy (Intermediate, Verified 07/24/19 19:24) Unknown atorvastatin calcium [From Lipitor] Adverse Reaction (Verified 07/24/19 19:24) Unknown rosiglitazone maleate [From Avandia] Adverse Reaction (Verified 07/24/19 19:24) Other - Sleep Disorder Evaluation Hx of Sleep Apnea: No Do you snore loudly (louder than talking or can be heard through closed doors)?: No Do you often feel tired/ fatigued/ sleepy during daytime?: Yes Has anyone observed you stop breathing during sleep?: No History of Hypertension (for STOP score): Yes STOP Results: Positive Advanced Directives - Advanced Directives Power of Diesel Retrofit [employer]er: No Living Will: No Advance Directives Information Provided: Yes Advance Directives on File: No Past Medical History - Past Medical Illness Medical History: Past Medical History (Last Reviewed 07/25/19 @ 09:00 by Reji Galindo MD) Non-rheumatic mitral regurgitation (Chronic) I34.0 Nonrheumatic tricuspid valve regurgitation (Chronic) I36.1 Essential hypertension (Chronic) I10 Non-rheumatic aortic stenosis (Chronic) I35.0 Chronic systolic (congestive) heart failure (Chronic) I50.22 Schizophrenia (Chronic) F20.9 Atherosclerotic heart disease tangirnaq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 Rodriguez [facility] 08/20/18 PCI PTCA and laser atherectomy of proximal Circumflex 02/03/2018 PTCA-ostail/prox LCx @ [facility] 11/09/2017 PTCA-Cutting Balloon Atherectomy w/ placement of 2.5 x 20 mm Synergy Stent, Distal LM-into the Ostium of LAD Stented w/ 4.0 x 16 mm Synergy Stent 06/2017PTCA-OM 04/2017 PCI-LAD with a 2.75x38 Promus Premier drug eluting stent. 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) K75.81, K74.60 CHF (congestive heart failure) (Inactive) I50.9 Hypertension (Inactive) I10 Mitral valve insufficiency (Inactive) I34.0 Tricuspid valve insufficiency (Inactive) I07.1 - Past Surgical History Surgical History: Past Surgical History (Last Reviewed 07/25/19 @ 09:00 by Reji Galindo MD) History of spinal fusion (Chronic) Z98.1 anterior History of coronary artery stent placement (Chronic) Onset Date: 06/25/19 Z95.5 PTCA-ostial/prox LCx @ [facility] 11/09/2017 PTCA-Cutting Balloon Atherectomy w/ placement of 2.5 x 20 mm Synergy Stent, Distal LM-into the Ostium of LAD Stented w/ 4.0 x 16 mm Synergy Stent 06/2017PTCA-OM 04/2017 PCI-LAD with a 2.75x38 Promus Premier drug eluting stent. 12/15/13 RAYMON of Right Posterior Lateral (Mid) wIth 3.0 x 2.8 Cypher, followed upstream with 3.0 x 8 Cypher, RAYMON of Right PDA (Ostial) with 25 x 28 Cypher 09/17/2007; 06/25/2019:LVEF: by LV gram 45-50 % Depressed Left Ventricular systolic function - Mild; Single vessel CAD of the ostial/proximal LCX in stent restenosis. Non obstructive coronary arteries of LM, LAD and RCA. Referred for immediate PCI to Dr Yao at [facility] given high risk nature and proximity to LM and LAD. S/P PTCA (percutaneous transluminal coronary angioplasty) (Chronic) Onset Date: ~11/09/17 Z98.61 PCI of ostial and mid LCX in-stent restenosis with laser atherectomy, balloon angioplasty per Dr. Rodriguez [facility] 08/20/18 PCI PTCA and laser atherectomy of proximal Circumflex 02/03/2018 PTCA-ostial/prox LCx @ [facility] 11/09/2017 PTCA-Cutting Balloon Atherectomy w/ placement of 2.5 x 20 mm Synergy Stent, Distal LM-into the Ostium of LAD Stented w/ 4.0 x 16 mm Synergy Stent 06/2017PTCA-OM 04/2017 PCI-LAD with a 2.75x38 Promus Premier drug eluting stent. 12/15/13 RAYMON of Right Posterior Lateral (Mid) wIth 3.0 x 2.8 Cypher, followed upstream with 3.0 x 8 Cypher, RAYMON of Right PDA (Ostial) with 25 x 28 Cypher 09/17/2007 History of coronary artery stent placement (Chronic) Z95.5 History of appendectomy Z90.49 History of cholecystectomy Z90.49 History of tonsillectomy and adenoidectomy Z98.890 Surgical History: angioplasty, appendectomy, cholecystectomy, tonsillectomy, - - Spinal fusion - Family History Summary Family History: Family History (Last Reviewed 07/25/19 @ 09:00 by Reji Galindo MD) Mother CAD (coronary artery disease) Father CAD (coronary artery disease) Social History - Smoking History Smoking Status: Never smoker Hx Tobacco Use: No Hx Smoking Exposure: Yes - exposed in the past - Alcohol Use Alcohol Usage: No - Substance Abuse Hx Substance Use: No - Occupation Occupation (List type of work in comments):: Retired - disabled - Hobbies, Recreation, Social Activities Hobbies: Sewing Recreational Activities: I am able to engage in all my recreational activities Social Environment - Status Marital Status: - Current Living Arrangements Living Environment:: Alone - Children How many children do you have?: 2 Do any of your children live nearby?: No - Safety Do you feel safe in your surroundings?: Yes - Assistance Do you need any assistance at home?: yes, has a health aid. Review of Systems - Review of Systems Hints: Right click = Denies (Slash). Left click = Reports ([place]) Review of Present Symptoms: Reports: Shortness of Breath at Rest - at times, PVD, Angina - takes nitros, Dizziness/Lightheadedness - at times, Fatigue, Appetite - Normal, Appetite - Special Diet - cardiac diabetic diet with fluid limitation, Sleep - Normal. Denies: Shortness of Breath with Exertion - yes, walks slowly, Operative Discomfort, Wound Healing, Heart Arrhythmia/Irregularities, Sexual Changes - Pain Is Patient Pain Free?: No Pain Location: abdomen Pain Level: / Previous experience dealing with pain?: nothing Risk Factor Assessment - Vital Signs Pulse Ox: 99 - Pulse Pulse Rate: 58 Pulse Rhythm: Regular - Hypertension How long have you been treated?: 2002 On medication(s)?: yes Blood Pressure Sitting - Right Arm: 130/60 Blood Pressure Sitting - Left Arm: 110/46 - Stress Stress: Recent, Long-standing, Home/Family - Blood Cholesterol/Lipids Total Cholesterol (mg/dL) Goal = less than 200 mg/dL: 136 HDL Cholesterol (mg/dL) Goal = less than 40 mg/dL: 55 LDL Cholesterol (mg/dL) Goal = less than 70 mg/dL: 67 Triglycerides (mg/dL) Goal = less than 150 mg/dL: 69 - Diabetes Diabetic History: Type II Nutrition Referral for Diabetes: Yes - Obesity Height: 5 ft 6 in - Weight:: 195 lb Weight in Pounds: 195.0 lbs Weight Source: Stated by Patient Body Mass Index (BMI): 31.4 Desired Body Weight: 160 Realistic Weight Goal (Loss of 1-2 lbs/week): 171 Nutritional Referral for Obesity: Yes - Physical Inactivity Physical Inactivity: Reg Exercise 30 min/day Exercise Limitations: leg edema limits her at times, but does walking and arm exercises. - Risk Stratification Risk Guidelines: Lowest Risk: Risk Factor for Smoking, Risk Factor for Dyslipidemia, Moderate Risk: Risk Factor for Diabetes, Risk Factor for Hypertension, Risk Factor for Depression, Highest Risk: Risk Factor for Obesity, Risk Factor for Sedentary Lifestyle - For Smoking Smoking Risk Guidelines: Smoking Low Risk: None or quit greater than 6 months ago. Smoking Moderate Risk: Smoker or quit 6 months or less ago. Smoking High Risk: Smoker - For Dyslipidemia Dyslipidemia Risk Guidelines: Low Risk: Moderate Risk: High Risk: 15-25% fat 25.1-29% fat >/= 30% fat. <7% sat fat 7-9% sat fat >9% sat fat. <150 mg chol 150-299 mg chol >/= 300 mg chol. LDL <100 LDL 100-129 LDL >/= 130. Chol/HDL ratio <5.0 Chol/HDL ratio 5.0-6.0 Chol/HDL ratio >6.0. Triglycerides <100 Triglycerides 100-149 Triglycerides >/= 150 - For Diabetes Mellitus Diabetes Risk Guidelines: Diabetes Low Risk: HgA1c <6.5% and/or FBG <120. Diabetes Moderate Risk: HgA1c 6.6-7.9% and/or FBG 120-180. Diabetes High Risk: HgA1c >/= 8% and/or FBG >180 - For Obesity/Overweight Obesity/Overweight Risk Guidelines: Obesity Low Risk: BMI <25.0. Obesity Moderate Risk: BMI 25-29.9. Obesity High Risk: BMI >/= 30.0 - For Hypertension Hypertension Risk Guidelines: Hypertension Low Risk: Systolic <120 and Diastolic <80. Hypertension Moderate Risk: Systolic 120-139 and Diastolic 80-89. Hypertension High Risk: Systolic >/= 140 and Diastolic >/= 90 - For Sedentary Lifestyle Sedentary Lifestyle Risk Guidelines: Sedentary Lifestyle Low Risk: >/= 1,500 kcal/week. Sedentary Lifestyle Moderate Risk: 700-1,499 kcal/week. Sedentary Lifestyle High Risk: < 700 kcal/week - For Depression Depression Risk Guidelines: Depression Low Risk: Not clinically depressed. Depression Moderate Risk: Mildly depressed. Depression High Risk: Clinically depressed - Family History Family History: Family History (Last Reviewed 07/25/19 @ 09:00 by Reji Galindo MD) Mother CAD (coronary artery disease) Father CAD (coronary artery disease) Motivation - Motivation to Participate On a scale of 1 to 10, how prepared are you to commit to attending program?: 8
[2019-08-14 10:01] VITALS: BP 110/46; BP 130/60; PULSE 58; O2SAT 99; BMI 31.4
== END ==
PROVIDERS: Family Provider Internal Medicine; PCP Internal Medicine; Referring Provider Internal Medicine Cardiovascular Disease; Visit Provider Internal Medicine Cardiovascular Disease
DX: Z95.5 Presence of coronary angioplasty implant and graft (principal); I25.10 Atherosclerotic heart disease of native coronary artery without angina pectoris; I25.2 Old myocardial infarction; I11.0 Hypertensive heart disease with heart failure; I50.22 Chronic systolic (congestive) heart failure; E03.9 Hypothyroidism, unspecified; E11.9 Type 2 diabetes mellitus without complications; E66.9 Obesity, unspecified; Z79.4 Long term (current) use of insulin

== ENCOUNTER 2019-09-01 06:30 | Outpatient (RCR) | payer MEDICARE, MEDICAID, SELFPAY ==
[2019-07-24 23:15] VITALS: BMI 31.6
[2019-08-14 10:01] VITALS: BMI 31.4
== END 2019-09-05 23:59 ==
LOC: CR 06:30
PROVIDERS: Family Provider Internal Medicine; PCP Internal Medicine; Referring Provider Internal Medicine Cardiovascular Disease; Visit Provider Internal Medicine Cardiovascular Disease
DX: I21.4 Non-ST elevation (NSTEMI) myocardial infarction (principal); R07.9 Chest pain, unspecified; I25.119 Atherosclerotic heart disease of native coronary artery with unspecified angina pectoris; Z98.61 Coronary angioplasty status
CPT/HCPCS: 93798

== ENCOUNTER 2019-09-29 08:30 | Outpatient (RCR) | payer MEDICARE, MEDICAID, SELFPAY ==
[2019-08-14 10:01] VITALS: BMI 31.4
== END 2019-09-29 23:59 | disposition home or self-care (01) ==
LOC: DC 08:30
PROVIDERS: PCP Internal Medicine; Visit Provider Internal Medicine Cardiovascular Disease
DX: Z71.3 Dietary counseling and surveillance (principal); E66.9 Obesity, unspecified; E11.9 Type 2 diabetes mellitus without complications; I11.0 Hypertensive heart disease with heart failure; I50.22 Chronic systolic (congestive) heart failure; E03.9 Hypothyroidism, unspecified; I25.10 Atherosclerotic heart disease of native coronary artery without angina pectoris
CPT/HCPCS: 97802; 97803; G0108

== ENCOUNTER 2019-11-12 10:33 | Emergency (ER) | payer MEDICARE, MEDICAID, SELFPAY ==
[2019-08-14 10:01] VITALS: BMI 31.4
[2019-11-12 10:34] VITALS: BP 130/60; PULSE 70; RESP 18; TEMP 36.6; O2SAT 99; BMI 31.0
[2019-11-12 10:54] VITALS: O2SAT 99
--- NOTE | 2019-11-12 10:54 | RAD_ITS ---
STUDY: X-RAY CHEST REASON FOR EXAM: Female, 79 years old. PT C/O COUGH, AND SOB THAT HAS BEEN GOING ON FOR MONTHS THAT HAS BEEN GETTING WORSE. PT ALSO C/O NAUSEA, VOMITING AND DRYNESS OF MOUTH, CAD, CHF, HTN TECHNIQUE: Single AP portable view of the chest. COMPARISON: Comparison is made with prior examination dated July 24, 2019. FINDINGS: EKG electrodes are seen. The lungs are clear and expanded. There is no demonstrated pleural abnormality. Normal size heart. Normal mediastinum and rell. Normal visualized pulmonary arteries. Normal visualized aortic arch and descending thoracic aorta. There are diffuse degenerative changes of the visualized thoracic spine. Normal visualized ribs, clavicles, and shoulders. There is no demonstrated abnormality of the visualized soft tissue structures of the upper abdomen. RAD/Chest 1 View (Portable) IMPRESSION: Normal x-ray examination of the chest. Electronically Signed: Jasiel Luna, at 11:44 EDT , Service support ,
--- NOTE | 2019-11-12 10:54 | EKG12_ITS ---
Test Reason : Blood Pressure : / mmHG Vent. Rate : 065 BPM Atrial Rate : 065 BPM P-R Int : 180 ms QRS Dur : 096 ms QT Int : 402 ms P-R-T Axes : 053 -07 111 degrees QTc Int : 418 ms Normal sinus rhythm ST & T wave abnormality, consider anterolateral ischemia Abnormal ECG Confirmed by SEVERINO CHEW, LIN ([id number]), video effects editor THAD HOOKER ([id number] on 11/14/2019 9:35:17 AM Referred By: LAURA Confirmed By:RICHIE HAQ MD
--- NOTE | 2019-11-12 10:55 | ED.VIS.GEN ---
History of Present Illness Chief Complaint: Cough Informant: Patient Onset: Month(s) Current Severity: Mild Maximum Severity: Moderate Narrative: Patient presents with cough and shortness of breath that is been ongoing for several months. She states was admitted to the hospital last year with similar symptoms. She felt her shortness of breath was worse this morning so she presented to the emergency room. She has not noted fever or symptoms at home. She has had occasional nausea and vomiting as well but states she has not vomited at all in the last 3 days. She does report orthopnea. She states her legs are always swollen and unchanged from baseline. - Past Medical History (1) NSTEMI (non-ST elevated myocardial infarction) Status: Resolved (2) CAD (coronary artery disease) Status: Chronic (3) Chronic systolic (congestive) heart failure Status: Chronic (4) Diabetes mellitus, type II Status: Chronic (5) Essential hypertension Status: Chronic (6) History of coronary artery stent placement Status: Chronic (7) Hyperlipidemia Status: Chronic (8) Hypothyroidism Status: Chronic (9) Schizophrenia Status: Chronic Past Medical History - Allergies and Home Meds Allergies/Adverse Reactions: Allergies aripiprazole [From Abilify] Allergy (Intermediate, Verified 11/12/19 10:33) it over powered me lisinopril Allergy (Intermediate, Verified 11/12/19 10:33) Unknown atorvastatin calcium [From Lipitor] Adverse Reaction (Verified 11/12/19 10:33) Unknown rosiglitazone maleate [From Avandia] Adverse Reaction (Verified 11/12/19 10:33) Other Primary Care Physician: Diana Cohen MD [Primary Care Provider] - Prior records reviewed: Yes Surgical History: angioplasty, appendectomy, cholecystectomy, tonsillectomy, - - Spinal fusion Lives: Alone Smoking Status: Never smoker - Family History Maternal Family History: Family History (Last Reviewed 07/25/19 @ 09:[address] Reji Galindo MD) Mother CAD (coronary artery disease) Father CAD (coronary artery disease) Family History: Reports: Heart Disease - CAD, - - Schizophrenia Paternal Family History: Family History (Last Reviewed 07/25/19 @ 09:[address] Reji Galindo MD) Mother CAD (coronary artery disease) Father CAD (coronary artery disease) Family History: Reports: Heart Disease Review of Systems General: Denies: Chills, Fever Eyes: Denies: Visual changes - bilaterally ENT: Denies: Bilateral ear pain Cardiovascular: Denies: Chest pain Respiratory: Reports: Dyspnea, Cough. Denies: Sputum Gastrointestinal: Reports: Vomiting. Denies: Abdominal pain, Diarrhea Musculoskeletal: Reports: Swelling. Denies: Extremity Pain Skin: Denies: Rash Neurological: Denies: Headache Hematologic: Denies: Easy bruising, Easy bleeding Allergy: Denies: Uticaria Physical Exam Vital Signs/Narrative: Vital Signs Temp Pulse Resp BP Pulse Ox 11/12/19 10:34 97.8 F 70 18 130/60 H 99 Inital Vital Signs reviewed: Yes General: Well nourished, Well developed Head: Normocephalic ENT: Moist mucous membranes Neck: Supple Cardiovascular: Regular rate, Regular rhythm Respiratory: No distress, CTA bilaterally Abdomen: Soft, Nontender Extremities: - - 2+ right lower extremity edema, 3+ left lower extremity edema Skin: Normal color Neurological: Alert, Oriented x3, Normal Strength, Normal Sensation Psychological: Normal affect Diagnostic/Tx/Re-eval Impressions Chest X-Ray 11/12/19 10:54 IMPRESSION: Normal x-ray examination of the chest. Electronically Signed: Jasiel Cehryl, at 11:44 EDT , Service support , 11/12/19 10:54 Chest 1 View (Portable) [RAD] Stat Laboratory Results 11/12/19 11/12/19 11/12/19 11:19 11:19 11:19 WBC 2.6 L RBC 3.04 L Hgb 9.6 L Hct 29.5 L MCV 97.0 MCH 31.6 MCHC 32.5 RDW Std Deviation 49.1 H RDW Coeff of Conchis 13.9 Plt Count 111 L MPV 10.0 Immature Gran % (Auto) 0.400 Neut % (Auto) 57.9 Lymph % (Auto) 30.5 [place] % (Auto) 8.5 Eos % (Auto) 1.9 Baso % (Auto) 0.8 Absolute Neuts (auto) 1.5 L Absolute Lymphs (auto) 0.79 L Nucleated RBC % 0 Sodium 142 Potassium 4.3 Chloride 110 H Carbon Dioxide 28.0 Anion Gap 4 L BUN 21 H Creatinine 0.98 Estim Creat Clear Calc 44.52 Est GFR (MDRD) Af Amer 70 Est GFR (MDRD) Non-Af 58 L BUN/Creatinine Ratio 21.4 H Glucose 241 H Calcium 9.0 Troponin I 0.100 H B-Natriuretic Peptide 61.7 11/12/19 14:20 WBC RBC Hgb Hct MCV MCH MCHC RDW Std Deviation RDW Coeff of [place]chis Plt Count MPV Immature Gran % (Auto) Neut % (Auto) Lymph % (Auto) [place] % (Auto) Eos % (Auto) Baso % (Auto) Absolute Neuts (auto) Absolute Lymphs (auto) Nucleated RBC % Sodium Potassium Chloride Carbon Dioxide Anion Gap BUN Creatinine Estim Creat Clear Calc Est GFR (MDRD) Af Amer Est GFR (MDRD) Non-Af BUN/Creatinine Ratio Glucose Calcium Troponin I 0.098 H B-Natriuretic Peptide - EKG Initial EKG Interpretation: Sinus Rhythm - Sinus at 65. Anterolateral ST depression that is actually improved when compared to prior study of July 25, 2019. Follow-up EKG Interpretation: Sinus Rhythm - Sinus at [address] depression. Unchanged from previous. - Medical Decision Making Patient's chart is reviewed. She had a heart cath in June 2019 that showed a in-stent restenosis. Patient is had this occur multiple times and decision was made at that point to treat her medically only. She is not a further candidate for intervention. Patient was actually seen in July for an NSTEMI. She was managed medically at that time. Patient's initial troponin is mildly elevated at 0.10. Patient's health promotion educator is not available but I did see Dr. Kumar. After reviewing her case we agreed to perform a 3-hour repeat troponin and EKG. Patient is having no chest pain at this time. Repeat troponin is 0.098 and repeat EKG is unchanged. At this time patient be discharged with a prescription for Zithromax. If she develops further symptoms or chest pressure she is to return. She voices understanding and agreement. ED Disposition - Plan for ED Patient: Disposition: Home or Assisted Living Diagnosis: Bronchitis Instructions: ED Upper Resp Infec Abx Tx Prescriptions: Azithromycin [Zithromax] 250 mg PO DAILY #4 tab Transmission Status: Pending to [facility], [place] - [place] - [id number] Referrals: Diana Cohen MD [Primary Care Provider] - 1 Week
[2019-11-12 11:28] LABS: Absolute Lymphocyte Count 0.79 X10^3/uL (0.83-4.51); Absolute Neutrophil Count 1.5 X10^3/uL (2.0-7.7); Basophil# 0.02 X10^3/uL; Basophil% 0.8 % (0-1); Eosinophil# 0.05 X10^3/uL; Eosinophils% 1.9 % (0-5); Hematocrit 29.5 % (37-47); Hemoglobin 9.6 g/dL (12.0-15.0); Lymphocyte # 0.79 X10^3/ul (4.0); Lymphocyte % 30.5 % (19-41); Mean Corp Hgb Conc 32.5 g/dL (32-36); Mean Corpuscular Hgb 31.6 pg (27.0-32.0); Monocyte# 0.22 X10^3/uL; Monocyte% 8.5 % (0-10); NRBC Flagged by Analyzer 0 % (0-5); Neutrophil % 57.9 % (47-70); Platelet Count 111 K/mm3 (150-450); RBC Distribution Width CV 13.9 % (11.6-14.6); RBC Distribution Width SD 49.1 fl (35.1-43.9); Red Blood Count 3.04 M/mm3 (4.2-5.4); White Blood Count 2.6 K/mm3 (4.4-11.0)
[2019-11-12 11:44] LABS: Anion Gap 4 (5-15); BUN 21 mg/dL (7-18); BUN/Creat Ratio 21.4 RATIO (10-20); Chloride 110 mmol/L (98-107); Creatinine, Serum 0.98 mg/dL (0.55-1.02); EST Glomerular Filtration Rate 58 mL/min (>60); Est Glom Filt Rate - Afr Amer 70 mL/min (>60); Estimated Creatinine Clearance 44.52 ml/min; Glucose 241 mg/dL (74-106); Potassium 4.3 mmol/L (3.5-5.1); Sodium Level 142 mmol/L (136-145)
[2019-11-12 12:10] LABS: BNP,B-Type NATRIURETIC PEPTIDE 61.7 pg/mL (0-100)
[2019-11-12 12:17] VITALS: BP 135/55; PULSE 65; RESP 14; O2SAT 99
[2019-11-12] MEDS: Acetaminophen 500 MG Tablet 1000 MG PO (12:55)
--- NOTE | 2019-11-12 14:15 | EKG12_ITS ---
Test Reason : Blood Pressure : / mmHG Vent. Rate : 064 BPM Atrial Rate : 064 BPM P-R Int : 208 ms QRS Dur : 102 ms QT Int : 514 ms P-R-T Axes : 056 -14 057 degrees QTc Int : 530 ms Normal sinus rhythm Left ventricular hypertrophy with repolarization abnormality Prolonged QT Abnormal ECG Confirmed by SEVERINO CHEW, LIN ([id number]), state editor THAD HOOKER ([id number]) on 11/14/2019 9:35:29 AM Referred By: LAURA Confirmed By:RICHIE HAQ MD
[2019-11-12 14:25] VITALS: BP 140/58; PULSE 66; RESP 12; O2SAT 99
[2019-11-12 15:20] VITALS: BP 141/59; PULSE 67; RESP 14; O2SAT 99
[2019-11-12] MEDS: Azithromycin 250 MG Tablet 500 MG PO (15:37)
== END 2019-11-12 15:49 | disposition home or self-care (01) ==
PROVIDERS: Emergency Provider Emergency Medicine; PCP Internal Medicine
DX: J40 Bronchitis, not specified as acute or chronic (principal); I11.0 Hypertensive heart disease with heart failure; I50.22 Chronic systolic (congestive) heart failure; I25.10 Atherosclerotic heart disease of native coronary artery without angina pectoris; I25.2 Old myocardial infarction; E11.9 Type 2 diabetes mellitus without complications; E03.9 Hypothyroidism, unspecified; E78.5 Hyperlipidemia, unspecified; F20.9 Schizophrenia, unspecified; Z95.5 Presence of coronary angioplasty implant and graft; Z79.4 Long term (current) use of insulin
CPT/HCPCS: 36415; 71045; 80048; 83880; 84484; 85025; 93005; 99285; A4216

== ENCOUNTER → 2020-01-10 08:22 | Outpatient (CLI) | payer MEDICARE, MEDICAID, SELFPAY ==
[2020-01-10 08:59] LABS: AST(SGOT) 30 U/L (15-37); Alanine Aminotransfer ALT/SGPT 27 U/L (13-56); Albumin, Serum 3.2 g/dL (3.2-5.0); Alkaline Phosphatase 74 U/L (45-117); Bilirubin, Direct 0.28 mg/dL (0.00-0.30); Cholesterol 144 mg/dL (200); Globulin 3.6 g/dL (2.2-4.2); High Density Lipoprotein 55 mg/dL; Protein, Total 6.8 g/dL (6.4-8.2); Triglycerides 111 mg/dL; Very Low Density Lipoprotein 22 mg/dL (5-40)
== END ==
PROVIDERS: PCP Internal Medicine; Referring Provider Internal Medicine Cardiovascular Disease; Visit Provider Internal Medicine Cardiovascular Disease
DX: E78.5 Hyperlipidemia, unspecified (principal); I25.119 Atherosclerotic heart disease of native coronary artery with unspecified angina pectoris
CPT/HCPCS: 36415; 80061; 80076

== ENCOUNTER 2020-02-10 11:38 | Inpatient (IN) | payer MEDICARE, MEDICAID, SELFPAY ==
[2020-02-10] VITALS (24 sets, daily range): BP systolic 105–138; BP diastolic 52–104; PULSE 90–122; RESP 12–322; TEMP 36.4–37.4; O2SAT 97–100; BMI 31.0; BMI 30.3; BMI 30.4
--- NOTE | 2020-02-10 11:52 | EKG12_ITS ---
Test Reason : SOB Blood Pressure : / mmHG Vent. Rate : 137 BPM Atrial Rate : 137 BPM P-R Int : 150 ms QRS Dur : 108 ms QT Int : 290 ms P-R-T Axes : 020 -40 160 degrees QTc Int : 437 ms Probable Atrial Flutter with a 2:1 block Left axis deviation Incomplete left bundle branch block Minimal voltage criteria for LVH, may be normal variant Marked ST abnormality, possible inferior subendocardial injury Marked ST abnormality, possible anterolateral subendocardial injury Abnormal ECG Confirmed by NILSON COOL MD ([id number]), dictionary editor MAO MAIER ([id number]) on 02/12/2020 1:20:14 PM Referred By: NIHARIKA Confirmed By:NILSON COOL MD
--- NOTE | 2020-02-10 12:03 | ED.VIS.GEN ---
History of Present Illness Chief Complaint: Alt LOC Informant: Patient, [employer] Onset: Today - Was [address] [place] AND. Bed reviewing of the right stroke Narrative: Patient brought from EMS from home for reported altered mental status. Reported batter depositor noted patient not being herself today. Patient reports been having some dysuria for a while. States had a dry cough. Denies fevers or chest pain. States nausea. Denies vomiting or diarrhea. History of diabetes EMS reports glucose 250s. Patient states she ambulates with a wheeled walker, she lives alone. Past Medical History - Allergies and Home Meds Allergies/Adverse Reactions: Allergies aripiprazole [From Abilify] Allergy (Intermediate, Verified 02/10/20 11:47) it over powered me lisinopril Allergy (Intermediate, Verified 02/10/20 11:47) Unknown atorvastatin calcium [From Lipitor] Adverse Reaction (Verified 02/10/20 11:47) Unknown rosiglitazone maleate [From Avandia] Adverse Reaction (Verified 02/10/20 11:47) Other Primary Care Physician: Diana Cohen MD [Primary Care Provider] - Past Medical History: - - Hypertension, hyperlipidemia, diabetes, NSTEMI, coronary disease, CHF Surgical History: angioplasty, appendectomy, cholecystectomy, tonsillectomy, - - Spinal fusion Smoking Status: Never smoker - Family History Maternal Family History: Family History (Last Reviewed 07/25/19 @ 09:[address] Reji Galindo MD) Mother CAD (coronary artery disease) Father CAD (coronary artery disease) Family History: Reports: Heart Disease - CAD, - - Schizophrenia Paternal Family History: Family History (Last Reviewed 07/25/19 @ 09:[address] Reji Galindo MD) Mother CAD (coronary artery disease) Father CAD (coronary artery disease) Family History: Reports: Heart Disease Review of Systems General: Denies: Chills, Fever, Sweats Eyes: Denies: Visual changes - bilaterally, Diplopia ENT: Denies: Rhinorrhea, Sore throat Cardiovascular: Denies: Chest pain, Palpitations Respiratory: Reports: Cough. Denies: Dyspnea, Dyspnea on exertion Gastrointestinal: Reports: Nausea. Denies: Abdominal pain, Vomiting, Diarrhea, Melena, Hematochezia Genitourinary: Reports: Dysuria. Denies: Hematuria, Frequency Musculoskeletal: Denies: Back pain, Extremity Pain Skin: Denies: Rash, Wounds Neurological: Denies: Headache, Weakness, Numbness Physical Exam Vital Signs/Narrative: Vital Signs Temp Pulse Resp BP Pulse Ox 02/10/20 11:45 99.2 F H 91 22 H 125/79 H 97 02/10/20 11:42 99.2 F H 91 22 H 125/79 H 97 Inital Vital Signs reviewed: Yes General: Well nourished, Well developed, No Acute Distress, - - Overall slow to respond, nontoxic, protecting airway. Head: Normocephalic, Atraumatic Eyes: Perrl, EOMI ENT: Moist mucous membranes, No rhinorrhea Neck: Supple, Nontender Cardiovascular: Regular rate, Regular rhythm, No murmurs Respiratory: No distress, CTA bilaterally, Chest nontender Abdomen: Soft, Nontender, Nondistended, Normal bowel sounds Back: Nontender, Normal Inspection Extremities: Nontender, No edema, - - Moving all 4 extremities. Skin: Normal color, No rash Neurological: Alert, Cranial nerves II-XII grossly intact, Normal Strength, Normal Sensation, - - Alert and oriented to person and place, could not tell me the month or year. Psychological: Normal affect, Normal Mood Diagnostic/Tx/Re-eval Clinical Impression(s) from Imaging Studies Chest X-Ray 02/10/20 13:55 IMPRESSION: Interstitial CHF. Electronically Signed: Jasiel Luna, at 14:25 EDT , Service support , Chest X-Ray 02/10/20 15:19 IMPRESSION: The tip of the right central venous catheter is in the proximal portion of the superior vena cava. Stable interstitial CHF. Electronically Signed: Jasiel Luna, at 15:48 EDT , Service support , Abnormal Lab Results 02/10/20 02/10/20 02/10/20 12:20 14:10 14:10 WBC 12.0 H RBC 3.43 L Hgb 10.8 L Hct 33.5 L MCV 97.7 MCH 31.5 MCHC 32.2 RDW Std Deviation 50.5 H RDW Coeff of Conchis 14.3 Plt Count 224 MPV 9.5 Immature Gran % (Auto) 0.300 Neut % (Auto) 54.3 Lymph % (Auto) 38.2 [place] % (Auto) 6.0 Eos % (Auto) 0.8 Baso % (Auto) 0.4 Absolute Neuts (auto) 6.5 Absolute Lymphs (auto) 4.57 H Nucleated RBC % 0 PT Cancelled INR Cancelled APTT Cancelled Sodium Potassium Chloride Carbon Dioxide Anion Gap BUN Creatinine Estim Creat Clear Calc Est GFR (MDRD) Af Amer Est GFR (MDRD) Non-Af BUN/Creatinine Ratio Glucose Lactic Acid Calcium Magnesium Total Bilirubin AST ALT Alkaline Phosphatase Troponin I B-Natriuretic Peptide Total Protein Albumin Globulin Albumin/Globulin Ratio Urine Color Yellow Urine Clarity Sl. Cloudy Urine pH 6.0 Ur Specific [place] 1.015 Urine Protein 30 H Urine Glucose (UA) 50 H Urine Ketones 15 H Urine Occult Blood 10 H Urine Nitrite Negative Urine Bilirubin Negative Urine Urobilinogen 1 H Ur Leukocyte Esterase 100 H Urine RBC 0 SEEN Urine WBC 0-5 SEEN Ur Squamous Epith Cells 0-5 SEEN Urine Bacteria RARE Urine Mucus RARE 02/10/20 02/10/20 02/10/20 14:10 14:10 14:10 WBC RBC Hgb Hct MCV MCH MCHC RDW Std Deviation RDW Coeff of Conchis Plt Count MPV Immature Gran % (Auto) Neut % (Auto) Lymph % (Auto) [place] % (Auto) Eos % (Auto) Baso % (Auto) Absolute Neuts (auto) Absolute Lymphs (auto) Nucleated RBC % PT INR APTT Sodium 144 Potassium 3.1 L Chloride 110 H Carbon Dioxide 22.0 Anion Gap 12 BUN 14 Creatinine 0.98 Estim Creat Clear Calc 46.19 Est GFR (MDRD) Af Amer 70 Est GFR (MDRD) Non-Af 58 L BUN/Creatinine Ratio 14.2 Glucose 294 H Lactic Acid 5.1 H* Calcium 8.5 Magnesium Total Bilirubin 1.30 H AST 41 H ALT 28 Alkaline Phosphatase 90 Troponin I 2.700 H* B-Natriuretic Peptide 1273.2 H Total Protein 7.3 Albumin 3.5 Globulin 3.8 Albumin/Globulin Ratio 0.9 Urine Color Urine Clarity Urine pH Ur Specific [place] Urine Protein Urine Glucose (UA) Urine Ketones Urine Occult Blood Urine Nitrite Urine Bilirubin Urine Urobilinogen Ur Leukocyte Esterase Urine RBC Urine WBC Ur Squamous Epith Cells Urine Bacteria Urine Mucus 02/10/20 14:10 WBC RBC Hgb Hct MCV MCH MCHC RDW Std Deviation RDW Coeff of Conchis Plt Count MPV Immature Gran % (Auto) Neut % (Auto) Lymph % (Auto) [place] % (Auto) Eos % (Auto) Baso % (Auto) Absolute Neuts (auto) Absolute Lymphs (auto) Nucleated RBC % PT INR APTT Sodium Potassium Chloride Carbon Dioxide Anion Gap BUN Creatinine Estim Creat Clear Calc Est GFR (MDRD) Af Amer Est GFR (MDRD) Non-Af BUN/Creatinine Ratio Glucose Lactic Acid Calcium Magnesium 2.3 Total Bilirubin AST ALT Alkaline Phosphatase Troponin I B-Natriuretic Peptide Total Protein Albumin Globulin Albumin/Globulin Ratio Urine Color Urine Clarity Urine pH Ur Specific [place] Urine Protein Urine Glucose (UA) Urine Ketones Urine Occult Blood Urine Nitrite Urine Bilirubin Urine Urobilinogen Ur Leukocyte Esterase Urine RBC Urine WBC Ur Squamous Epith Cells Urine Bacteria Urine Mucus - EKG Initial EKG Interpretation: Sinus Rhythm - Sinus rate of 102, diffuse ST depressions inferior anterior lateral leads. T wave inversions on 1 and aVL. Elevation in aVR. New changes compared to November 2019 of this year. - Medical Decision Making EKG #1: Sinus rate of 102, ST depressions inferior lateral leads with slight elevation in aVR. EKG #2: Sinus rate of [address] depressions in inferior lateral leads with slight elevation in aVR. Patient initial presentation of confusion dysuria and nausea. She heart rate was greater than 90 and respiratory rate greater than 20, she is afebrile. Sepsis protocol initiated due to her reported dysuria with concerning UTI findings. Urine cath was obtained noted leukocytes, she was started on Rocephin after cultures were obtained. However with only mild leukocytes with urine and her confusion I did add on CT head for further evaluation which is still pending. She was sent to CT reported to me that she was complained of increased dyspnea and was unable to lay down however her oxygen was normal. She was ordered for Ativan IV. She is sent back to the room for stabilization. At that time heart rate seemed to increase to the 130s on the monitor complaining of now shortness of breath to deny chest pain. Repeat EKG similar changes at the first. I spoke with her general labor Dr. Malik at 1400 due to her now complains of dyspnea with her cardiac history. 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 along with [facility]. He discussed medical management with patient and aggressive diuretics if chest x-ray shows pulmonary edema. He states she would not be a cath candidate even with an elevated troponin. Results are pending at that time. After review of chest x-ray had concerns for pulmonary edema with a BNP of 1200, therefore 80 of IV Lasix was ordered. Shortly after, reported me patient lost peripheral IV access, therefore central line was placed for access for medications. Patient was placed on a BiPAP due to her dyspnea and was stable from that, after central line x-ray she will be sent for CT of head for further evaluation. Her lactic acid returned at 5.1, will not give IV fluids due to already being fluid overload. With her slight urinary tract infection she does not meet septic shock criteria blood pressure currently is stable. Repeat chest x-ray notes interstitial fluid as similar to the first 1. Troponin returned at 2.7. Potassium at 3.1, magnesium added at 2.3, IV potassium ordered. I did speak with cook helper vegetable Dr. Carr updated patient's presentation and findings. I spoke with hospitalist Dr. Castillo for admission to ICU. Procedure note: Central line placement. Patient confused therefore unable to consent, access required due to no IV access. Normal sterile conditions. Ultrasound performed pre-procedure with a good right internal jugular. A full sterile conditions. Time out 1500. Ultrasound used. Skin was anesthetized, ultrasound-guided Seldinger technique with dark blood on first stick. Guidewire advanced, skin incision dilation performed. Triple-lumen catheter was placed at 17 cm. Biopatch and secured down to the skin. Dressing was placed. Patient tolerate procedure well. Post procedure chest x-ray confirms good placement no complications. ED Disposition - Plan for ED Patient: Disposition: [facility] Diagnosis: Acute CHF, Respiratory failure, UTI (urinary tract infection), Septic shock, Hypokalemia, Elevated troponin, Abnormal EKG Referrals: Diana Cohen MD [Primary Care Provider] -
[2020-02-10 12:26] LABS: Red Blood Cells-Urine 0 SEEN /hpf (0-5)
[2020-02-10 12:28] LABS: Color, Urine Yellow (Yellow); Glucose, Dipstick 50 mg/dl (Normal); Ketone-Dipstick 15 mg/dl (Negative); Leukocyte Esterase-Dipstick 100 /ul (Negative); Nitrite-Dipstick Negative (Negative); Occult Blood-Urine 10 /ul (Negative); Protein-Dipstick 30 mg/dl (Negative); Specific Gravity, Urine 1.015 (1.002-1.030); Urine Bilirubin Dipstick Negative (Negative); Urine Clarity Sl. Cloudy (Clear); Urine Urobilinogen 1 mg/dl (Normal)
[2020-02-10] MEDS: Ondansetron 4 MG/2 ML Vial IV (12:37)
[2020-02-10] MEDS: 0.9% Normal Saline 1,000 ML 150 ML IV (12:37)
[2020-02-10 12:39] LABS: Bacteria RARE /hpf (None Seen); Mucous, Urine RARE /hpf (<or=2+); Squamous Epithelial Cells - UA 0-5 SEEN /hpf (5-10); White Blood Cells 0-5 SEEN /hpf (0-5)
--- NOTE | 2020-02-10 12:43 | CT_ITS ---
STUDY: CT BRAIN WITHOUT CONTRAST REASON FOR EXAM: Female, 79 years old. Confusion. Altered mental status. Hypertension. RADIATION DOSAGE (If Supplied By Facility): CTDIvol = ( 60.81 ) mGy, DLP = ( 1067.08 ) mGycm TECHNIQUE: Transaxial CT imaging of the brain was performed without administration of intravenous contrast material. Individualized dose optimization techniques were used for this CT. COMPARISON: April 23, 2019. FINDINGS: Normal soft tissue structures. Normal calvarium. There is mild cerebral atrophy with widening of the extra-axial spaces and ventricular dilatation. There are areas of decreased attenuation within the white matter tracts of the supratentorial brain, consistent with microvascular disease changes. Again seen is a large lacunar infarct and old right basal ganglia. Normal left basal ganglia and thalami. Normal brainstem. Normal cerebellum. There is no intracranial hemorrhage. There are no findings of an acute ischemic infarction. Normal visualized paranasal sinuses. CT/Brain/Head without Contrast IMPRESSION: Chronic involutional changes without evidence of acute intracranial or calvarial abnormality. There is no acute interval change. Electronically Signed: Garrett Pineda DO at 16:58 EDT Tel [phone], Service support ,
[2020-02-10] MEDS: Ceftriaxone 1 GM/50 ML BAG IV (13:22)
--- NOTE | 2020-02-10 13:47 | EKG12_ITS ---
Test Reason : ALT LOC Blood Pressure : / mmHG Vent. Rate : 102 BPM Atrial Rate : 102 BPM P-R Int : 176 ms QRS Dur : 090 ms QT Int : 356 ms P-R-T Axes : 071 -26 226 degrees QTc Int : 463 ms Sinus tachycardia Marked ST abnormality, possible inferior subendocardial injury Marked ST abnormality, possible anteroseptal subendocardial injury Abnormal ECG Confirmed by SILVINA CHEW, NILSON ([id number]), research editor MAO MAIER ([id number]) on 02/12/2020 1:20:33 PM Referred By: NIHARIKA Confirmed By:NILSON COOL MD
[2020-02-10] MEDS: LORazepam 2 MG/ML Syringe 0.5 MG IV (13:49)
--- NOTE | 2020-02-10 13:55 | RAD_ITS ---
STUDY: X-RAY CHEST REASON FOR EXAM: Female, 79 years old. Sudden onset shortness of breath TECHNIQUE: Single AP portable view of the chest. COMPARISON: Comparison is made with prior study dated November 12, 2019. FINDINGS: EKG electrodes are seen. There is evidence of a increased interstitial markings in both lungs with CHF. There is no demonstrated pleural abnormality. Normal size heart. Normal mediastinum and rell. Normal visualized pulmonary arteries. There is atherosclerotic calcification of the aortic arch with tortuosity. Normal visualized thoracic spine. Normal visualized ribs, clavicles, and shoulders. There is no demonstrated abnormality of the visualized soft tissue structures of the upper abdomen. RAD/Chest 1 View (Portable) IMPRESSION: Interstitial CHF. Electronically Signed: Jasiel Luna, at 14:25 EDT , Service support ,
[2020-02-10] MEDS: Ipratropium/Albuterol Sulfate 3 ML AMPUL.NEB INHALATION (14:10)
[2020-02-10 14:19] LABS: Absolute Lymphocyte Count 4.57 X10^3/uL (0.83-4.51); Absolute Neutrophil Count 6.5 X10^3/uL (2.0-7.7); Basophil# 0.05 X10^3/uL; Basophil% 0.4 % (0-1); Eosinophil# 0.09 X10^3/uL; Eosinophils% 0.8 % (0-5); Hematocrit 33.5 % (37-47); Hemoglobin 10.8 g/dL (12.0-15.0); Lymphocyte # 4.57 X10^3/ul (4.0); Lymphocyte % 38.2 % (19-41); Mean Corp Hgb Conc 32.2 g/dL (32-36); Mean Corpuscular Hgb 31.5 pg (27.0-32.0); Mean Corpuscular Volume 97.7 fL (81-99); Mean Platelet Vol. 9.5 fl (6.2-12.0); Monocyte# 0.72 X10^3/uL; NRBC Flagged by Analyzer 0 % (0-5); Neutrophil % 54.3 % (47-70); Platelet Count 224 K/mm3 (150-450); RBC Distribution Width CV 14.3 % (11.6-14.6); RBC Distribution Width SD 50.5 fl (35.1-43.9); Red Blood Count 3.43 M/mm3 (4.2-5.4)
--- NOTE | 2020-02-10 14:32 | ED.RN ---
LACTIC AND BLOOD CULTURES ALREADY ORDERED. FLUIDS NOT ORDERED PER DR BUNDY D/T FLUID OVERLOAD.
[2020-02-10 14:43] LABS: ALB/GLOB Ratio 0.9 RATIO (0.9-2.4); AST(SGOT) 41 U/L (15-37); Alanine Aminotransfer ALT/SGPT 28 U/L (13-56); Albumin, Serum 3.5 g/dL (3.2-5.0); Alkaline Phosphatase 90 U/L (45-117); Anion Gap 12 (5-15); BUN 14 mg/dL (7-18); BUN/Creat Ratio 14.2 RATIO (10-20); Calcium,Total 8.5 mg/dL (8.5-10.1); Chloride 110 mmol/L (98-107); Creatinine, Serum 0.98 mg/dL (0.55-1.02); EST Glomerular Filtration Rate 58 mL/min (>60); Est Glom Filt Rate - Afr Amer 70 mL/min (>60); Estimated Creatinine Clearance 46.19 ml/min; Globulin 3.8 g/dL (2.2-4.2); Glucose 294 mg/dL (74-106); Lactic Acid 5.1 mmol/L (0.4-1.9); Potassium 3.1 mmol/L (3.5-5.1); Protein, Total 7.3 g/dL (6.4-8.2); Sodium Level 144 mmol/L (136-145)
[2020-02-10 14:52] LABS: BNP,B-Type NATRIURETIC PEPTIDE 1273.2 pg/mL (0-100)
--- NOTE | 2020-02-10 15:19 | RAD_ITS ---
STUDY: X-RAY CHEST REASON FOR EXAM: Female, 79 years old. Line placement TECHNIQUE: Single AP portable view of the chest. COMPARISON: Comparison is made with prior study done earlier today. FINDINGS: A right-sided central venous catheter has been placed. The tip is in the proximal aspect of the superior vena cava. EKG electrodes are seen. Stable increased interstitial markings in both lungs suggestive of CHF. There is no demonstrated pleural abnormality. Normal size heart. Normal mediastinum and rell. Normal visualized pulmonary arteries. There is atherosclerotic calcification of the aortic arch with tortuosity. There are diffuse degenerative changes of the visualized thoracic spine. Normal visualized ribs, clavicles, and shoulders. There is no demonstrated abnormality of the visualized soft tissue structures of the upper abdomen. RAD/Chest 1 View (Portable) IMPRESSION: The tip of the right central venous catheter is in the proximal portion of the superior vena cava. Stable interstitial CHF. Electronically Signed: Jasiel Luna, at 15:48 EDT , Service support ,
[2020-02-10] MEDS: Furosemide 100 MG/10 ML Vial 80 MG IV (15:27)
--- NOTE | 2020-02-10 15:30 | ED.RN ---
PT BECAME SOB, STATING I CAN'T BREATH, PULSE OX DROPPED INTO 80S, HR ELEVATED TO 130S, DR BUNDY MADE AWARE. PT RESTLESS AND AGITATED, ATIVAN GIVE, BIPAP APPLIED, PT CALMED. MULTIPLE STICKS TO ATTEMPT IV, UNABLE. LAB UNABLE TO OBTAIN LABS. CENTRAL LINE PLACED BY DR. BUNDY WITHOUT DIFFICULTY.
[2020-02-10 15:36] LABS: Magnesium 2.3 mg/dL (1.6-2.6)
[2020-02-10 15:54] LABS: International Normalized Ratio 1.2; Prothrombin Time (Protime)PT. 14.8 SECONDS (11.7-14.9)
[2020-02-10 15:55] LABS: Partial Thromboplast Time 23.7 Seconds (24.1-36.2)
--- NOTE | 2020-02-10 16:03 | ED.RN ---
SW ATTEMPTING TO CONTACT FAMILY
[2020-02-10] MEDS: Potassium Chloride 10mEq/100mL 10 MEQ/100 ML IV.SOLN. 100 MEQ IV BOLUS ×4 (16:18→19:35)
--- NOTE | 2020-02-10 16:34 | HP.PCM_ITS ---
Problem List (1) Acute CHF Status: Acute (2) Respiratory failure Status: Acute (3) UTI (urinary tract infection) Status: Acute (4) Septic shock Status: Acute (5) Hypokalemia Status: Acute (6) Abnormal EKG Status: Acute (7) NSTEMI (non-ST elevated myocardial infarction) Status: Resolved (8) NSTEMI (non-ST elevated myocardial infarction) Status: Acute (9) Chest pain Status: Acute (10) URI Status: Acute (11) Atypical chest pain Status: Acute (12) Non-rheumatic mitral regurgitation Status: Chronic (13) Nonrheumatic tricuspid valve regurgitation Status: Chronic (14) Essential hypertension Status: Chronic (15) Elevated troponin Status: Acute (16) Thrombocytopenia Status: Chronic (17) CAD (coronary artery disease) Status: Chronic Qualifiers: Coronary Disease-Associated Artery/Lesion type: [place] artery [place] vs. transplanted heart: [place] heart Associated angina: without angina Qualified Code(s): I25.10 - Atherosclerotic heart disease of [place] coronary artery without angina pectoris (18) History of spinal fusion Status: Chronic Comment: anterior (19) Non-rheumatic aortic stenosis Status: Chronic (20) History of coronary artery stent placement Status: Chronic Comment: PTCA-ostial/prox LCx @ [facility] 11/09/2017 PTCA-Cutting Balloon Atherectomy w/ placement of 2.5 x 20 mm Synergy Stent, Distal LM-into the Ostium of LAD Stented w/ 4.0 x 16 mm Synergy Stent 06/2017PTCA-OM 04/2017 PCI-LAD with a 2.75x38 Promus Premier drug eluting stent. 12/15/13 RAYMON of Right Posterior Lateral (Mid) wIth 3.0 x 2.8 Cypher, followed upstream with 3.0 x 8 Cypher, RAYMON of Right PDA (Ostial) with 25 x 28 Cypher 09/17/2007; 06/25/2019:LVEF: by LV gram 45-50 % Depressed Left Ventricular systolic function - Mild; Single vessel CAD of the ostial/proximal LCX in stent restenosis. Non obstructive coronary arteries of LM, LAD and RCA. Referred for immediate PCI to Dr Yao at [facility] given high risk nature and proximity to LM and LAD. (21) Chronic systolic (congestive) heart failure Status: Chronic (22) Schizophrenia Status: Chronic Qualifiers: Schizophrenia type: unspecified Qualified Code(s): F20.9 - Schizophrenia, unspecified (23) S/P PTCA (percutaneous transluminal coronary angioplasty) Status: Chronic Comment: PCI of ostial and mid LCX in-stent restenosis with laser atherectomy, balloon angioplasty per Dr. Rodriguez [facility] 08/20/18 PCI PTCA and laser atherectomy of proximal Circumflex 02/03/2018 PTCA-ostial/prox LCx @ [facility] 11/09/2017 PTCA-Cutting Balloon Atherectomy w/ placement of 2.5 x 20 mm Synergy Stent, Distal LM-into the Ostium of LAD Stented w/ 4.0 x 16 mm Synergy Stent 06/2017PTCA-OM 04/2017 PCI-LAD with a 2.75x38 Promus Premier drug eluting stent. 12/15/13 RAYMON of Right Posterior Lateral (Mid) wIth 3.0 x 2.8 Cypher, followed upstream with 3.0 x 8 Cypher, RAYMON of Right PDA (Ostial) with 25 x 28 Cypher 09/17/2007 (24) History of coronary artery stent placement Status: Chronic (25) Atherosclerotic heart disease [place] coronary artery w/angina pectoris Status: Chronic Qualifiers: [place] vs. transplanted heart: [place] heart Qualified Code(s): I25.119 - Atherosclerotic heart disease of [place] coronary artery with unspecified angina pectoris Comment: PCI of ostial and mid LCX in-stent restenosis with laser atherectomy, balloon angioplasty per Dr. Rodriguez [facility] 08/20/18 PCI PTCA and laser atherectomy of proximal Circumflex 02/03/2018 PTCA-ostail/prox LCx @ [facility] 11/09/2017 PTCA-Cutting Balloon Atherectomy w/ placement of 2.5 x 20 mm Synergy Stent, Distal LM-into the Ostium of LAD Stented w/ 4.0 x 16 mm Synergy Stent 06/2017PTCA-OM 04/2017 PCI-LAD with a 2.75x38 Promus Premier drug eluting stent. 12/15/13 RAYMON of Right Posterior Lateral (Mid) wIth 3.0 x 2.8 Cypher, followed upstream with 3.0 x 8 Cypher, RAYMON of Right PDA (Ostial) with 25 x 28 Cypher 09/17/2007 (26) Pancytopenia Status: Chronic (27) Hypothyroidism Status: Chronic Qualifiers: Hypothyroidism type: unspecified Qualified Code(s): E03.9 - Hypothyroidism, unspecified (28) Hyperlipidemia Status: Chronic Qualifiers: Hyperlipidemia type: unspecified Qualified Code(s): E78.5 - Hyperlipidemia, unspecified (29) Diabetes mellitus, type II Status: Chronic Qualifiers: Diabetes mellitus mcc insulin use: with manager intermediate use Diabetes mellitus complication status: with unspecified complications (30) Venous insufficiency Status: Chronic (31) NSTEMI (non-ST elevated myocardial infarction) Status: Chronic (32) Intermittent claudication Status: Chronic (33) Obesity (BMI 30.0-34.9) Status: Chronic History of Present Illness Date of Admission: 02/10/20 Chief Complaint: change in mental status The patient is a 79 year old F who is currently poor historian so history is obtained through the emergency room physician. 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 Patient was brought to the hospital for further evaluation. Patient had a head CT and had increased dyspnea and then was unable to lay flat and then started on BiPAP. Patient had chest x-ray that showed CHF and patient previously did receive antibiotics. Patient did receive 80 mg of IV furosemide as well as 40 mEq of IV potassium. Contacted by the emergency room physician to be made aware of the impending admission as well as cardiology. Patient was troponins were notified to cardiology and state that will be no need for a heart catheterization at this time.. [] Past Medical History Past Medical History (Chronic Problems): Chronic Problems (Last Reviewed 07/25/19 @ 09:[address] Reji Galindo MD) Non-rheumatic mitral regurgitation (Chronic) Nonrheumatic tricuspid valve regurgitation (Chronic) Essential hypertension (Chronic) Thrombocytopenia (Chronic) CAD (coronary artery disease) (Chronic) History of spinal fusion (Chronic) anterior Non-rheumatic aortic stenosis (Chronic) History of coronary artery stent placement (Chronic 06/25/19) PTCA-ostial/prox LCx @ [facility] 11/09/2017 PTCA-Cutting Balloon Atherectomy w/ placement of 2.5 x 20 mm Synergy Stent, Distal LM-into the Ostium of LAD Stented w/ 4.0 x 16 mm Synergy Stent 06/2017PTCA-OM 04/2017 PCI-LAD with a 2.75x38 Promus Premier drug eluting stent. 12/15/13 RAYMON of Right Posterior Lateral (Mid) wIth 3.0 x 2.8 Cypher, followed upstream with 3.0 x 8 Cypher, RAYMON of Right PDA (Ostial) with 25 x 28 Cypher 09/17/2007; 06/25/2019:LVEF: by LV gram 45-50 % Depressed Left Ventricular systolic function - Mild; Single vessel CAD of the ostial/proximal LCX in stent restenosis. Non obstructive coronary arteries of LM, LAD and RCA. Referred for immediate PCI to Dr Yao at [facility] given high risk nature and proximity to LM and LAD. Chronic systolic (congestive) heart failure (Chronic) Schizophrenia (Chronic) S/P PTCA (percutaneous transluminal coronary angioplasty) (Chronic ~11/09/17) PCI of ostial and mid LCX in-stent restenosis with laser atherectomy, balloon angioplasty per Dr. Rodriguez [facility] 08/20/18 PCI PTCA and laser atherectomy of proximal Circumflex 02/03/2018 PTCA-ostial/prox LCx @ [facility] 11/09/2017 PTCA-Cutting Balloon Atherectomy w/ placement of 2.5 x 20 mm Synergy Stent, Distal LM-into the Ostium of LAD Stented w/ 4.0 x 16 mm Synergy Stent 06/2017PTCA-OM 04/2017 PCI-LAD with a 2.75x38 Promus Premier drug eluting stent. 12/15/13 RAYMON of Right Posterior Lateral (Mid) wIth 3.0 x 2.8 Cypher, followed upstream with 3.0 x 8 Cypher, RAYMON of Right PDA (Ostial) with 25 x 28 Cypher 09/17/2007 History of coronary artery stent placement (Chronic) Atherosclerotic heart disease [place] coronary artery w/angina pectoris (Chronic) PCI of ostial and mid LCX in-stent restenosis with laser atherectomy, balloon angioplasty per Dr. Rodriguez [facility] 08/20/18 PCI PTCA and laser atherectomy of proximal Circumflex 02/03/2018 PTCA-ostail/prox LCx @ [facility] 11/09/2017 PTCA-Cutting Balloon Atherectomy w/ placement of 2.5 x 20 mm Synergy Stent, Distal LM-into the Ostium of LAD Stented w/ 4.0 x 16 mm Synergy Stent 06/2017PTCA-OM 04/2017 PCI-LAD with a 2.75x38 Promus Premier drug eluting stent. 12/15/13 RAYMON of Right Posterior Lateral (Mid) wIth 3.0 x 2.8 Cypher, followed upstream with 3.0 x 8 Cypher, RAYMON of Right PDA (Ostial) with 25 x 28 Cypher 09/17/2007 Pancytopenia (Chronic) Hypothyroidism (Chronic) Hyperlipidemia (Chronic) Diabetes mellitus, type II (Chronic) Venous insufficiency (Chronic) NSTEMI (non-ST elevated myocardial infarction) (Chronic ~09/16/17) Intermittent claudication (Chronic) Obesity (BMI 30.0-34.9) (Chronic) Medical History: Medical History (Last Reviewed 02/10/20 @ 16:[address] Marty Castillo, DO) Non-rheumatic mitral regurgitation (Chronic) I34.0 Nonrheumatic tricuspid valve regurgitation (Chronic) I36.1 Essential hypertension (Chronic) I10 Non-rheumatic aortic stenosis (Chronic) I35.0 Chronic systolic (congestive) heart failure (Chronic) I50.22 Schizophrenia (Chronic) F20.9 Atherosclerotic heart disease [place]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 Rodriguez [facility] 08/20/18 PCI PTCA and laser atherectomy of proximal Circumflex 02/03/2018 PTCA-ostail/prox LCx @ [facility] 11/09/2017 PTCA-Cutting Balloon Atherectomy w/ placement of 2.5 x 20 mm Synergy Stent, Distal LM-into the Ostium of LAD Stented w/ 4.0 x 16 mm Synergy Stent 06/2017PTCA-OM 04/2017 PCI-LAD with a 2.75x38 Promus Premier drug eluting stent. 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) K75.81, K74.60 CHF (congestive heart failure) (Inactive) I50.9 Hypertension (Inactive) I10 Mitral valve insufficiency (Inactive) I34.0 Tricuspid valve insufficiency (Inactive) I07.1 Allergies aripiprazole [From Abilify] Allergy (Intermediate, Verified 02/10/20 11:47) it over powered me lisinopril Allergy (Intermediate, Verified 02/10/20 11:47) Unknown atorvastatin calcium [From Lipitor] Adverse Reaction (Verified 02/10/20 11:47) Unknown rosiglitazone maleate [From Avandia] Adverse Reaction (Verified 02/10/20 11:47) Other Home Medications: Ambulatory Orders Medication Instructions Recorded Aspirin [Aspirin, Baby] 81 mg PO DAILY@0800 06/30/17 Nitroglycerin [Nitrostat] 0.4 mg SL PRN PRN 06/30/17 Multivitamins,Therapeutic 1 tab PO DAILY 02/01/18 [Multivitamin] ascorbic acid (vitamin C) 500 mg 500 mg PO DAILY 09/13/18 tablet Insulin Glargine,Hum.rec.anlog 34 unit SUBCUT DAILY 04/23/19 [Soha Bejarano] Potassium Chloride [K-Dur] 20 meq PO DAILY #30 tab 04/23/19 Carvedilol [Coreg] 3.125 mg PO BIDCM 06/24/19 Cholecalciferol (Vitamin D3) 5,000 unit PO DAILY 06/24/19 [Vitamin D3] Levothyroxine [Synthroid] 100 mcg PO DAILY 07/24/19 pravastatin 80 mg tablet 80 mg PO DAILY #30 tab 09/16/19 losartan 50 mg tablet 50 mg PO DAILY #30 tab 10/14/19 traMADol [Ultram (G)] 50 mg PO BID PRN PRN 11/12/19 metolazone 2.5 mg tablet 2.5 mg PO WE #4 tab 01/05/20 Amlodipine Besylate [Norvasc] 5 mg PO DAILY 02/10/20 Folic Acid 1 mg PO DAILY 02/10/20 Furosemide 40 mg PO BID 02/10/20 Insulin Regular, Human [Humulin R] 8 unit SQ TIDCM 02/10/20 Isosorbide Mononitrate [Isosorbide 30 mg PO DAILY 02/10/20 Mononitrate ER] Isosorbide Mononitrate [Isosorbide 60 mg PO DAILY 02/10/20 Mononitrate ER] Ranolazine [Ranexa] 1,000 mg PO BID 02/10/20 Ticagrelor [Brilinta] 90 mg PO BID 02/10/20 Surgical History: Surgical History (Last Reviewed 02/10/20 @ 16:[address] Marty Castillo, DO) History of spinal fusion (Chronic) Z98.1 anterior History of coronary artery stent placement (Chronic) Onset Date: 06/25/19 Z95.5 PTCA-ostial/prox LCx @ [facility] 11/09/2017 PTCA-Cutting Balloon Atherectomy w/ placement of 2.5 x 20 mm Synergy Stent, Distal LM-into the Ostium of LAD Stented w/ 4.0 x 16 mm Synergy Stent 06/2017PTCA-OM 04/2017 PCI-LAD with a 2.75x38 Promus Premier drug eluting stent. 12/15/13 RAYMON of Right Posterior Lateral (Mid) wIth 3.0 x 2.8 Cypher, followed upstream with 3.0 x 8 Cypher, RAYMON of Right PDA (Ostial) with 25 x 28 Cypher 09/17/2007; 06/25/2019:LVEF: by LV gram 45-50 % Depressed Left Ventricular systolic function - Mild; Single vessel CAD of the ostial/proximal LCX in stent restenosis. Non obstructive coronary arteries of LM, LAD and RCA. Referred for immediate PCI to Dr Yao at [facility] given high risk nature and proximity to LM and LAD. S/P PTCA (percutaneous transluminal coronary angioplasty) (Chronic) Onset Date: ~11/09/17 Z98.61 PCI of ostial and mid LCX in-stent restenosis with laser atherectomy, balloon angioplasty per Dr. Rodriguez [facility] 08/20/18 PCI PTCA and laser atherectomy of proximal Circumflex 02/03/2018 PTCA-ostial/prox LCx @ [facility] 11/09/2017 PTCA-Cutting Balloon Atherectomy w/ placement of 2.5 x 20 mm Synergy Stent, Distal LM-into the Ostium of LAD Stented w/ 4.0 x 16 mm Synergy Stent 06/2017PTCA-OM 04/2017 PCI-LAD with a 2.75x38 Promus Premier drug eluting stent. 12/15/13 RAYMON of Right Posterior Lateral (Mid) wIth 3.0 x 2.8 Cypher, followed upstream with 3.0 x 8 Cypher, RAYMON of Right PDA (Ostial) with 25 x 28 Cypher 09/17/2007 History of coronary artery stent placement (Chronic) Z95.5 History of appendectomy Z90.49 History of cholecystectomy Z90.49 History of tonsillectomy and adenoidectomy Z98.890 Surgical History: angioplasty, appendectomy, cholecystectomy, tonsillectomy, - - Spinal fusion Psychiatric History: No pertinent psych hx STATIONARY ENGINEER History: No pertinent STATIONARY ENGINEER history Smoking Status: Never smoker - *Family History Maternal Family History: Family History (Last Reviewed 02/10/20 @ 16:[address] Marty Castillo DO) Mother CAD (coronary artery disease) Father CAD (coronary artery disease) History Items: Heart Disease - CAD, - - Schizophrenia Paternal Family History: Family History (Last Reviewed 02/10/20 @ 16:[address] Marty Castillo DO) Mother CAD (coronary artery disease) Father CAD (coronary artery disease) History Items: Heart Disease Review of Systems Unable to obtain accurate/complete ROS d/t: Patient is lethargic and a poor historian. VTE Information - Inpt Only VTE Present on Admission: No VTE Mechan Device Prophylaxis: None VTE Pharm Prophylaxis ordered?: No Reason prophylaxis not ordered:: Treatment Not Indicated Patient Problems: Active and Suspected Problems (Last Reviewed 07/25/19 @ 09:[address] Reji Galindo MD) Acute CHF (Acute) Respiratory failure (Acute) UTI (urinary tract infection) (Acute) Septic shock (Acute) Hypokalemia (Acute) Abnormal EKG (Acute) Elevated troponin (Acute) - Physical Exam Vitals/I&O's: Vital Signs Temp Pulse Resp BP Pulse Ox 36.4 C L 106 H 22 H 122/55 H 100 02/10/20 16:03 02/10/20 16:05 02/10/20 16:05 02/10/20 16:03 02/10/20 16:05 Oxygen Delivery Method Bi-pap Weight: 92.5 kg Body Mass Index (BMI) 31.0 Finger Stick Blood Glucose 270 Intake and Output for Last 24 Hours 02/08/20 02/09/20 02/10/20 23:59 23:59 23:59 Intake Total 332.5 / 332.5 Balance 332.5 / 332.5 General: - - Awake. Lethargic. On BiPAP. HEENT: Atraumatic, Normocephalic, - - No Scleral icterus Oral: Moist Mucosa, No Gingival or Mucosal Lesions/ Ulcerations Neck: No Nodes, Thyroid Normal Size and Texture Lungs: Diminished, - - crackles Cardiovascular: Regular rate, Regular Rhythm, Normal S1, Normal S2, No murmurs Abdomen: Bowel Sounds Present, Soft, Non Tender, Non-Distended, No Hepato- splenomegaly Extremities: No Calf Tenderness, Edema Skin: No rashes, No breakdown Musculoskeletal: No Tenderness to Palpation of Joints or Extremities, No Muscle Wasting Neurological: Deep Tendon Reflexes 2+/4 and Symmetrical, - - no clonus Laboratory Results 02/10/20 12:20: Urine Color Yellow, Urine Clarity Sl. Cloudy, Urine pH 6.0, Ur Specific [place] 1.015, Urine Protein 30 H, Urine Glucose (UA) 50 H, Urine Ketones 15 H, Urine Occult Blood 10 H, Urine Nitrite Negative, Urine Bilirubin Negative, Urine Urobilinogen 1 H, Ur Leukocyte Esterase 100 H, Urine RBC 0 SEEN, Urine WBC 0-5 SEEN, Ur Squamous Epith Cells 0-5 SEEN, Urine Bacteria RARE, Urine Mucus RARE 02/10/20 14:10: WBC 12.0 H, RBC 3.43 L, Hgb 10.8 L, Hct 33.5 L, MCV 97.7, MCH 31.5, MCHC 32.2, RDW Std Deviation 50.5 H, RDW Coeff of Conchis 14.3, Plt Count 224, MPV 9.5, Immature Gran % (Auto) 0.300, Neut % (Auto) 54.3, Lymph % (Auto) 38.2, Roberts % (Auto) 6.0, Eos % (Auto) 0.8, Baso % (Auto) 0.4, Absolute Neuts (auto) 6.5, Absolute Lymphs (auto) 4.57 H, Nucleated RBC % 0 02/10/20 14:10: PT Cancelled, INR Cancelled, APTT Cancelled 02/10/20 14:10: Sodium 144, Potassium 3.1 L, Chloride 110 H, Carbon Dioxide 22.0, Anion Gap 12, BUN 14, Creatinine 0.98, Estim Creat Clear Calc 46.19, Est GFR (MDRD) Af Amer 70, Est GFR (MDRD) Non-Af 58 L, BUN/Creatinine Ratio 14.2, Glucose 294 H, Calcium 8.5, Total Bilirubin 1.30 H, AST 41 H, ALT 28, Alkaline Phosphatase 90, Troponin I 2.700 H*, Total Protein 7.3, Albumin 3.5, Globulin 3.8, Albumin/Globulin Ratio 0.9 02/10/20 14:10: Lactic Acid 5.1 H* 02/10/20 14:10: B-Natriuretic Peptide 1273.2 H 02/10/20 14:10: Magnesium 2.3 02/10/20 14:18: COVID-19 (ELLIOTT) Pending 02/10/20 15:25: PT 14.8, INR 1.2, APTT 23.7 L CXR showed pulmonary vascular congestion. RIJ positioned above the atrium. No PTX. EKG showed sinus tach with LBBB and ST depression in anterior, inferior and lateral leads. Current Medications Potassium Chloride () 10 meq in 100 mls @ 100 mls/hr IV BOLUS Q1H GEORGES Stop: 02/10/20 19:59 Last Admin: 02/10/20 16:18 Dose: 100 mls/hr Documented by: Assessment/Plan All Active Problems (Last Reviewed 07/25/19 @ 09:[address] Reji Galindo MD) Acute CHF (Acute) Respiratory failure (Acute) UTI (urinary tract infection) (Acute) Septic shock (Acute) Hypokalemia (Acute) Abnormal EKG (Acute) NSTEMI (non-ST elevated myocardial infarction) (Resolved) NSTEMI (non-ST elevated myocardial infarction) (Acute) Chest pain (Acute) URI (Acute) Atypical chest pain (Acute) Elevated troponin (Acute) Cognitive changes (Resolved) NSTEMI (non-ST elevated myocardial infarction) (Resolved) Unstable angina (Resolved) 1. acute hypoxic respiratory failure * 2/2 CHF exacerbation. doubt PNA * on BiPAP * admit to MICU * consult pulm 2. Acute HFpEF * EF 55% from echo on 07/25/2019 * IV furosemide * continue carvedilol, ARB * fluid restrict 1500cc/d 3. NSTEMI * suspect type II (demand) 2/2 above * on ASA, ticagrelor, pravastatin * cycle troponin * start therapeutic enoxaparin * consult cardiology * per Dr. Malik's note from 12/31: Patient returned in August 2018 with unstable angina and repeat catheterization demonstrated a critical in-stent restenosis at the bifurcation of her left main and left circumflex. She was transferred to [facility] where she underwent successful laser atherectomy for mid left circumflex in-stent restenosis, followed by balloon angioplasty only with a 3.0 ex-15 noncompliant balloon with minimal residual stenosis. The post angioplasty films, showed a well apposed stent with a heavily calcified ostium in the ostium was smaller in diameter than the proximal left circumflex due to the calcification. On 10/06/2018 she was admitted for atypical chest pain, community acquired pneumonia and hypokalemia as well as indeterminate troponins. At that time she had on and off coughing going on for about 3 months and shortness of breath with exertion. She was treated with antibiotic therapy, and subsequently sent home. We did not have a cardiology consultation on this most recent admission. 4. DM2: * continue glargine, R and SSI 5. VTE proph: not indicated as anticoagulated. Inpatient E&M: 81036 Init Hosp L3
[2020-02-10 16:58] LABS: Allen Test POS; Blood Gas Specimen Type ART; EPAP 6; FI02 50; IPAP 12; O2 Delivery Device Bi Pap; RR 12; SITE L BRACHIAL; Time Given 1425
[2020-02-10 16:59] LABS: Base Excess -15 mmol/L (-2 to +2); Bicarbonate 14.7 mmol/L (22-26); PO2 200 mmHG (75-100); SO2 99 % (95-99); Total Carbon Dioxide 16 mmol/L; pCO2 50.9 mmHg (35-45); pH 7.07 (7.35-7.45)
[2020-02-10] MEDS: Enoxaparin 100 MG/ML Syringe 90 MG SC (17:28)
[2020-02-10 18:13] LABS: Reflex Lactate? Y
[2020-02-10 19:31] LABS: Lactic Acid 2.1 mmol/L (0.4-1.9)
[2020-02-10] MEDS: 0.9% Saline Lock 10 ML Syringe IV (20:28)
[2020-02-10] MEDS: TICAGRELOR 90 MG TABLET PO (21:39)
[2020-02-10] MEDS: Pravastatin 80 MG Tablet PO (21:40)
[2020-02-10] MEDS: Ranolazine 500 MG Tablet 1000 MG PO (21:40)
[2020-02-10] MEDS: Isosorbide Mononitrate 60 MG Tablet PO (21:41)
[2020-02-10 21:51] LABS: Bedside Glucose 242 mg/dL (70-110)
[2020-02-11] VITALS (32 sets, daily range): BP systolic 92–127; BP diastolic 41–67; PULSE 69–101; RESP 12–27; TEMP 36.7–37.7; O2SAT 95–100
[2020-02-11] MEDS: 0.9% Saline Lock 10 ML Syringe IV ×2 (04:12→21:20)
[2020-02-11 04:30] LABS: Absolute Lymphocyte Count 1.22 X10^3/uL (0.83-4.51); Absolute Neutrophil Count 2.5 X10^3/uL (2.0-7.7); Basophil# 0.01 X10^3/uL; Basophil% 0.2 % (0-1); Eosinophil# 0.06 X10^3/uL; Eosinophils% 1.4 % (0-5); Hematocrit 24.7 % (37-47); Hemoglobin 7.9 g/dL (12.0-15.0); Lymphocyte # 1.22 X10^3/ul (4.0); Lymphocyte % 28.7 % (19-41); Mean Corpuscular Hgb 31.5 pg (27.0-32.0); Mean Corpuscular Volume 98.4 fL (81-99); Mean Platelet Vol. 9.6 fl (6.2-12.0); Monocyte# 0.43 X10^3/uL; Monocyte% 10.1 % (0-10); NRBC Flagged by Analyzer 0 % (0-5); Neutrophil # 2.52 X10^3/uL (2.7-7.7); Neutrophil % 59.4 % (47-70); Platelet Count 124 K/mm3 (150-450); RBC Distribution Width CV 14.4 % (11.6-14.6); Red Blood Count 2.51 M/mm3 (4.2-5.4); White Blood Count 4.3 K/mm3 (4.4-11.0)
[2020-02-11 04:39] LABS: Anion Gap 6 (5-15); BUN 14 mg/dL (7-18); BUN/Creat Ratio 18.4 RATIO (10-20); Calcium,Total 7.8 mg/dL (8.5-10.1); Chloride 109 mmol/L (98-107); Creatinine, Serum 0.76 mg/dL (0.55-1.02); EST Glomerular Filtration Rate 78 mL/min (>60); Est Glom Filt Rate - Afr Amer 94 mL/min (>60); Estimated Creatinine Clearance 45.26 ml/min; Glucose 192 mg/dL (74-106); Potassium 2.9 mmol/L (3.5-5.1); Sodium Level 145 mmol/L (136-145)
[2020-02-11 06:08] LABS: Absolute Lymphocyte Count 1.47 X10^3/uL (0.83-4.51); Absolute Neutrophil Count 2.9 X10^3/uL (2.0-7.7); Basophil# 0.02 X10^3/uL; Basophil% 0.4 % (0-1); Eosinophil# 0.08 X10^3/uL; Eosinophils% 1.6 % (0-5); Hematocrit 25.8 % (37-47); Hemoglobin 8.3 g/dL (12.0-15.0); Lymphocyte # 1.47 X10^3/ul (4.0); Lymphocyte % 29.5 % (19-41); Mean Corp Hgb Conc 32.2 g/dL (32-36); Mean Corpuscular Hgb 31.8 pg (27.0-32.0); Mean Corpuscular Volume 98.9 fL (81-99); Mean Platelet Vol. 9.1 fl (6.2-12.0); Monocyte# 0.47 X10^3/uL; Monocyte% 9.4 % (0-10); NRBC Flagged by Analyzer 0 % (0-5); Neutrophil # 2.92 X10^3/uL (2.7-7.7); Neutrophil % 58.7 % (47-70); Platelet Count 135 K/mm3 (150-450); RBC Distribution Width CV 14.5 % (11.6-14.6); RBC Distribution Width SD 51.3 fl (35.1-43.9); Red Blood Count 2.61 M/mm3 (4.2-5.4)
[2020-02-11] MEDS: Levothyroxine 100 MCG Tablet PO (06:50)
--- NOTE | 2020-02-11 06:51 | PCM.CON.CC ---
Problem List (1) Acute CHF Status: Acute Qualifiers: Heart failure type: systolic Qualified Code(s): I50.21 - Acute systolic (congestive) heart failure (2) Respiratory failure Status: Acute Qualifiers: Chronicity: acute Respiratory failure complication: hypoxia Qualified Code(s): J96.01 - Acute respiratory failure with hypoxia (3) Hypokalemia Status: Acute (4) NSTEMI (non-ST elevated myocardial infarction) Status: Acute (5) Non-rheumatic mitral regurgitation Status: Chronic (6) Nonrheumatic tricuspid valve regurgitation Status: Chronic (7) Essential hypertension Status: Chronic (8) Thrombocytopenia Status: Chronic (9) History of spinal fusion Status: Chronic Comment: anterior (10) Non-rheumatic aortic stenosis Status: Chronic (11) History of coronary artery stent placement Status: Chronic Comment: PTCA-ostial/prox LCx @ [facility] 11/09/2017 PTCA-Cutting Balloon Atherectomy w/ placement of 2.5 x 20 mm Synergy Stent, Distal LM-into the Ostium of LAD Stented w/ 4.0 x 16 mm Synergy Stent 06/2017PTCA-OM 04/2017 PCI-LAD with a 2.75x38 Promus Premier drug eluting stent. 12/15/13 RAYMON of Right Posterior Lateral (Mid) wIth 3.0 x 2.8 Cypher, followed upstream with 3.0 x 8 Cypher, RAYMON of Right PDA (Ostial) with 25 x 28 Cypher 09/17/2007; 06/25/2019:LVEF: by LV gram 45-50 % Depressed Left Ventricular systolic function - Mild; Single vessel CAD of the ostial/proximal LCX in stent restenosis. Non obstructive coronary arteries of LM, LAD and RCA. Referred for immediate PCI to Dr Yao at [facility] given high risk nature and proximity to LM and LAD. (12) Schizophrenia Status: Chronic Qualifiers: Schizophrenia type: unspecified Qualified Code(s): F20.9 - Schizophrenia, unspecified (13) S/P PTCA (percutaneous transluminal coronary angioplasty) Status: Chronic Comment: PCI of ostial and mid LCX in-stent restenosis with laser atherectomy, balloon angioplasty per Dr. Jennifer [facility] 08/20/18 PCI PTCA and laser atherectomy of proximal Circumflex 02/03/2018 PTCA-ostial/prox LCx @ [facility] 11/09/2017 PTCA-Cutting Balloon Atherectomy w/ placement of 2.5 x 20 mm Synergy Stent, Distal LM-into the Ostium of LAD Stented w/ 4.0 x 16 mm Synergy Stent 06/2017PTCA-OM 04/2017 PCI-LAD with a 2.75x38 Promus Premier drug eluting stent. 12/15/13 RAYMON of Right Posterior Lateral (Mid) wIth 3.0 x 2.8 Cypher, followed upstream with 3.0 x 8 Cypher, RAYMON of Right PDA (Ostial) with 25 x 28 Cypher 09/17/2007 (14) History of coronary artery stent placement Status: Chronic (15) Hypothyroidism Status: Chronic Qualifiers: Hypothyroidism type: unspecified Qualified Code(s): E03.9 - Hypothyroidism, unspecified (16) Hyperlipidemia Status: Chronic Qualifiers: Hyperlipidemia type: unspecified Qualified Code(s): E78.5 - Hyperlipidemia, unspecified (17) Diabetes mellitus, type II Status: Chronic Qualifiers: Diabetes mellitus mcc insulin use: with rn long term care use Diabetes mellitus complication status: with unspecified complications (18) Intermittent claudication Status: Chronic (19) Obesity (BMI 30.0-34.9) Status: Chronic Reason for Consult Date of Consultation: 02/11/20 Reason for Consultation: Respiratory failure History of Present Illness: The patient is an 79 year old F, with past medical history listed below, who presented to [facility] on 02/10/2020 secondary to altered mental status. 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 Patient reportedly had some nausea, but denied any vomiting or diarrhea. Patient reportedly had a history of diabetes mellitus, but EMS reported glucose in the 250s. Patient reportedly lives alone and ambulates using a wheeled walker. In the ER, patient was noted to have ST depressions on the inferior leads. There was some concern for sepsis secondary to UTI, so she was given Rocephin. Patient reportedly was ordered a CAT scan and then started to develop of increasing dyspnea. Patient was given Ativan and noted to have a heart rate in the 130s. Dr. 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 Patient was given 80 mg of Lasix and placed on BiPAP therapy. Patient had lost peripheral access, so a central line was placed by the ER attending. Further lab work showed an elevated troponin at 2.7 and a BNP over 1200. Patient was then transferred to the intensive care unit. Overnight, patient has had significant improvement in overall condition clinically, but is reporting no subjective improvement. Patient does state that she had some possible bloody bowel movements prior to presentation, but this cannot be confirmed. Patient was able to be taken off of BiPAP therapy, but did need minimal nasal cannula oxygen while sleeping. Patient is not reporting any current chest pain, nausea or vomiting. Patient is a relatively poor historian and unable to provide much of her history. Patient lives alone, so unclear if patient has had a GI bleed recently. No bleeding has been reported by nursing. Otherwise, review of systems otherwise negative from a constitutional, HEENT, respiratory, cardiovascular, GI, genitourinary, musculoskeletal, skin, neurologic, psychiatric and hematologic system unless stated above. Past Medical History Past Medical History (Chronic Problems): Chronic Problems (Last Reviewed 02/10/20 @ 16:[address] Marty Castillo, DO) Non-rheumatic mitral regurgitation (Chronic) Nonrheumatic tricuspid valve regurgitation (Chronic) Essential hypertension (Chronic) Thrombocytopenia (Chronic) CAD (coronary artery disease) (Chronic) History of spinal fusion (Chronic) anterior Non-rheumatic aortic stenosis (Chronic) History of coronary artery stent placement (Chronic 06/25/19) PTCA-ostial/prox LCx @ [facility] 11/09/2017 PTCA-Cutting Balloon Atherectomy w/ placement of 2.5 x 20 mm Synergy Stent, Distal LM-into the Ostium of LAD Stented w/ 4.0 x 16 mm Synergy Stent 06/2017PTCA-OM 04/2017 PCI-LAD with a 2.75x38 Promus Premier drug eluting stent. 12/15/13 RAYMON of Right Posterior Lateral (Mid) wIth 3.0 x 2.8 Cypher, followed upstream with 3.0 x 8 Cypher, RAYMON of Right PDA (Ostial) with 25 x 28 Cypher 09/17/2007; 06/25/2019:LVEF: by LV gram 45-50 % Depressed Left Ventricular systolic function - Mild; Single vessel CAD of the ostial/proximal LCX in stent restenosis. Non obstructive coronary arteries of LM, LAD and RCA. Referred for immediate PCI to Dr Yao at [facility] given high risk nature and proximity to LM and LAD. Chronic systolic (congestive) heart failure (Chronic) Schizophrenia (Chronic) S/P PTCA (percutaneous transluminal coronary angioplasty) (Chronic ~11/09/17) PCI of ostial and mid LCX in-stent restenosis with laser atherectomy, balloon angioplasty per Dr. Rodriguez [facility] 08/20/18 PCI PTCA and laser atherectomy of proximal Circumflex 02/03/2018 PTCA-ostial/prox LCx @ [facility] 11/09/2017 PTCA-Cutting Balloon Atherectomy w/ placement of 2.5 x 20 mm Synergy Stent, Distal LM-into the Ostium of LAD Stented w/ 4.0 x 16 mm Synergy Stent 06/2017PTCA-OM 04/2017 PCI-LAD with a 2.75x38 Promus Premier drug eluting stent. 12/15/13 RAYMON of Right Posterior Lateral (Mid) wIth 3.0 x 2.8 Cypher, followed upstream with 3.0 x 8 Cypher, RAYMON of Right PDA (Ostial) with 25 x 28 Cypher 09/17/2007 History of coronary artery stent placement (Chronic) Atherosclerotic heart disease [place] coronary artery w/angina pectoris (Chronic) PCI of ostial and mid LCX in-stent restenosis with laser atherectomy, balloon angioplasty per Dr. Rodriguez [facility] 08/20/18 PCI PTCA and laser atherectomy of proximal Circumflex 02/03/2018 PTCA-ostail/prox LCx @ [facility] 11/09/2017 PTCA-Cutting Balloon Atherectomy w/ placement of 2.5 x 20 mm Synergy Stent, Distal LM-into the Ostium of LAD Stented w/ 4.0 x 16 mm Synergy Stent 06/2017PTCA-OM 04/2017 PCI-LAD with a 2.75x38 Promus Premier drug eluting stent. 12/15/13 RAYMON of Right Posterior Lateral (Mid) wIth 3.0 x 2.8 Cypher, followed upstream with 3.0 x 8 Cypher, RAYMON of Right PDA (Ostial) with 25 x 28 Cypher 09/17/2007 Pancytopenia (Chronic) Hypothyroidism (Chronic) Hyperlipidemia (Chronic) Diabetes mellitus, type II (Chronic) Venous insufficiency (Chronic) NSTEMI (non-ST elevated myocardial infarction) (Chronic ~09/16/17) Intermittent claudication (Chronic) Obesity (BMI 30.0-34.9) (Chronic) Medical History: Medical History (Last Reviewed 02/10/20 @ 16:[address] Marty Castillo, DO) Non-rheumatic mitral regurgitation (Chronic) I34.0 Nonrheumatic tricuspid valve regurgitation (Chronic) I36.1 Essential hypertension (Chronic) I10 Non-rheumatic aortic stenosis (Chronic) I35.0 Chronic systolic (congestive) heart failure (Chronic) I50.22 Schizophrenia (Chronic) F20.9 Atherosclerotic heart disease [place]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 Rodriguez [facility] 08/20/18 PCI PTCA and laser atherectomy of proximal Circumflex 02/03/2018 PTCA-ostail/prox LCx @ [facility] 11/09/2017 PTCA-Cutting Balloon Atherectomy w/ placement of 2.5 x 20 mm Synergy Stent, Distal LM-into the Ostium of LAD Stented w/ 4.0 x 16 mm Synergy Stent 06/2017PTCA-OM 04/2017 PCI-LAD with a 2.75x38 Promus Premier drug eluting stent. 12/15/13 RAYMON of Right Posterior Lateral (Mid) wIth 3.0 x 2.8 Cypher, followed upstream with 3.0 x 8 Cypher, RAYMON of Right PDA (Ostial) with 25 x 28 Cypher 09/17/2007 Pancytopenia (Chronic) D61.818 Hypothyroidism (Chronic) E03.9 Hyperlipidemia (Chronic) E78.5 Diabetes mellitus, type II (Chronic) E11.9 Venous insufficiency (Chronic) NSTEMI (non-ST elevated myocardial infarction) (Chronic) Onset Date: ~09/16/17 I21.4 Intermittent claudication (Chronic) I73.9 Obesity (BMI 30.0-34.9) (Chronic) E66.9 Anemia D64.[address] Son Liver cirrhosis secondary to ZHANG (nonalcoholic steatohepatitis) K75.81, K74.60 CHF (congestive heart failure) (Inactive) I50.9 Hypertension (Inactive) I10 Mitral valve insufficiency (Inactive) I34.0 Tricuspid valve insufficiency (Inactive) I07.1 Allergies aripiprazole [From Abilify] Allergy (Intermediate, Verified 02/10/20 11:47) it over powered me lisinopril Allergy (Intermediate, Verified 02/10/20 11:47) Unknown atorvastatin calcium [From Lipitor] Adverse Reaction (Verified 02/10/20 11:47) Unknown rosiglitazone maleate [From Avandia] Adverse Reaction (Verified 02/10/20 11:47) Other Home Medications: Ambulatory Orders Medication Instructions Recorded Aspirin [Aspirin, Baby] 81 mg PO DAILY@0800 06/30/17 Nitroglycerin [Nitrostat] 0.4 mg SL PRN PRN 06/30/17 Multivitamins,Therapeutic 1 tab PO DAILY 02/01/18 [Multivitamin] ascorbic acid (vitamin C) 500 mg 500 mg PO DAILY 09/13/18 tablet Insulin Glargine,Hum.rec.anlog 34 unit SUBCUT DAILY 04/23/19 [Soha Bejarano] Potassium Chloride [K-Dur] 20 meq PO DAILY #30 tab 04/23/19 Carvedilol [Coreg] 3.125 mg PO BIDCM 06/24/19 Cholecalciferol (Vitamin D3) 5,000 unit PO DAILY 06/24/19 [Vitamin D3] Levothyroxine [Synthroid] 100 mcg PO DAILY 07/24/19 pravastatin 80 mg tablet 80 mg PO DAILY #30 tab 09/16/19 losartan 50 mg tablet 50 mg PO DAILY #30 tab 10/14/19 traMADol [Ultram (G)] 50 mg PO BID PRN PRN 11/12/19 metolazone 2.5 mg tablet 2.5 mg PO WE #4 tab 01/05/20 Amlodipine Besylate [Norvasc] 5 mg PO DAILY 02/10/20 Folic Acid 1 mg PO DAILY 02/10/20 Furosemide 40 mg PO BID 02/10/20 Insulin Regular, Human [Humulin R] 8 unit SQ TIDCM 02/10/20 Isosorbide Mononitrate [Isosorbide 30 mg PO DAILY 02/10/20 Mononitrate ER] Isosorbide Mononitrate [Isosorbide 60 mg PO DAILY 02/10/20 Mononitrate ER] Ranolazine [Ranexa] 1,000 mg PO BID 02/10/20 Ticagrelor [Brilinta] 90 mg PO BID 02/10/20 Surgical History: Surgical History (Last Reviewed 02/10/20 @ 16:[address] Marty Castillo, DO) History of spinal fusion (Chronic) Z98.1 anterior History of coronary artery stent placement (Chronic) Onset Date: 06/25/19 Z95.5 PTCA-ostial/prox LCx @ [facility] 11/09/2017 PTCA-Cutting Balloon Atherectomy w/ placement of 2.5 x 20 mm Synergy Stent, Distal LM-into the Ostium of LAD Stented w/ 4.0 x 16 mm Synergy Stent 06/2017PTCA-OM 04/2017 PCI-LAD with a 2.75x38 Promus Premier drug eluting stent. 12/15/13 RAYMON of Right Posterior Lateral (Mid) wIth 3.0 x 2.8 Cypher, followed upstream with 3.0 x 8 Cypher, RAYMON of Right PDA (Ostial) with 25 x 28 Cypher 09/17/2007; 06/25/2019:LVEF: by LV gram 45-50 % Depressed Left Ventricular systolic function - Mild; Single vessel CAD of the ostial/proximal LCX in stent restenosis. Non obstructive coronary arteries of LM, LAD and RCA. Referred for immediate PCI to Dr Yao at [facility] given high risk nature and proximity to LM and LAD. S/P PTCA (percutaneous transluminal coronary angioplasty) (Chronic) Onset Date: ~11/09/17 Z98.61 PCI of ostial and mid LCX in-stent restenosis with laser atherectomy, balloon angioplasty per Dr. Rodriguez [facility] 08/20/18 PCI PTCA and laser atherectomy of proximal Circumflex 02/03/2018 PTCA-ostial/prox LCx @ [facility] 11/09/2017 PTCA-Cutting Balloon Atherectomy w/ placement of 2.5 x 20 mm Synergy Stent, Distal LM-into the Ostium of LAD Stented w/ 4.0 x 16 mm Synergy Stent 06/2017PTCA-OM 04/2017 PCI-LAD with a 2.75x38 Promus Premier drug eluting stent. 12/15/13 RAYMON of Right Posterior Lateral (Mid) wIth 3.0 x 2.8 Cypher, followed upstream with 3.0 x 8 Cypher, RAYMON of Right PDA (Ostial) with 25 x 28 Cypher 09/17/2007 History of coronary artery stent placement (Chronic) Z95.5 History of appendectomy Z90.49 History of cholecystectomy Z90.49 History of tonsillectomy and adenoidectomy Z98.890 Surgical History: angioplasty, appendectomy, cholecystectomy, tonsillectomy, - - Spinal fusion Psychiatric History: No pertinent psych hx KENNEL HAND History: No pertinent KENNEL HAND history Smoking Status: Never smoker - *Family History Maternal Family History: Family History (Last Reviewed 02/10/20 @ 16:[address] Marty Castillo DO) Mother CAD (coronary artery disease) Father CAD (coronary artery disease) History Items: Heart Disease - CAD, - - Schizophrenia Paternal Family History: Family History (Last Reviewed 02/10/20 @ 16:[address] Marty Castillo DO) Mother CAD (coronary artery disease) Father CAD (coronary artery disease) History Items: Heart Disease Review of Systems Unable to obtain accurate/complete ROS d/t: Poor historian Patient Problems: Active and Suspected Problems (Last Reviewed 02/10/20 @ 16:[address] Marty Castillo DO) Acute CHF (Acute) Respiratory failure (Acute) UTI (urinary tract infection) (Acute) Septic shock (Acute) Hypokalemia (Acute) Abnormal EKG (Acute) Elevated troponin (Acute) Objective: All imaging was personally reviewed. Chest x-ray shows a right IJ in good position and bilateral infiltrates with cephalization and a pattern consistent with CHF. - Physical Exam Vitals/I&O's: Vital Signs Temp Pulse Resp BP Pulse Ox 37.6 C H 101 H 13 107/64 100 02/11/20 06:00 02/11/20 06:00 02/11/20 06:00 02/11/20 06:00 02/11/20 06:00 Oxygen Flow Rate (L/min) 2 Oxygen Delivery Method Nasal Cannula Weight: 90.6 kg Body Mass Index (BMI) 30.3 Finger Stick Blood Glucose 270 Intake and Output for Last 24 Hours 02/09/20 02/10/20 02/11/20 23:59 23:59 23:59 Intake Total 972.5 / 972.5 290 / 290 Output Total 1150 / 1150 150 / 150 Balance -177.5 / -177.5 140 / 140 General: Alert, Oriented x3, Cooperative, No apparent distress, - - Obese. Speaking in full sentences. Some difficulty with more complex questions HEENT: Atraumatic, PERRLA, EOMI, - - No scleral icterus or injection noted Oral: Moist Mucosa, No Gingival or Mucosal Lesions/ Ulcerations Neck: Supple, No JVD, No Nodes, Trachea Midline Lungs: No rhonchi, No wheeze, No rales, Diminished, - - Fair effort. Symmetric expansion. Cardiovascular: Regular rate, Regular Rhythm, Normal S1, Normal S2, No murmurs, No rub noted, No Gallop Abdomen: Bowel Sounds Present, Soft, Non Tender, Non-Distended, Obese Extremities: No clubbing, No cyanosis, Edema, Tenderness - Palpation bilateral lower extremities Skin: No rashes, No breakdown, - - No wounds noted on lower extremities, but significantly tender to palpation Musculoskeletal: Tenderness Lymphatic: No Cervical, Supraclavicular, or Inguinal Adenopathy Neurological: Cranial nerves II-XII grossly intact, Neuro grossly intact, Motor Exam 5/5 strength throughout Psych/Mental Status: Normal Affect, Appropriate Laboratory Results 02/10/20 12:20: Urine Color Yellow, Urine Clarity Sl. Cloudy, Urine pH 6.0, Ur Specific [place] 1.015, Urine Protein 30 H, Urine Glucose (UA) 50 H, Urine Ketones 15 H, Urine Occult Blood 10 H, Urine Nitrite Negative, Urine Bilirubin Negative, Urine Urobilinogen 1 H, Ur Leukocyte Esterase 100 H, Urine RBC 0 SEEN, Urine WBC 0-5 SEEN, Ur Squamous Epith Cells 0-5 SEEN, Urine Bacteria RARE, Urine Mucus RARE 02/10/20 14:10: WBC 12.0 H, RBC 3.43 L, Hgb 10.8 L, Hct 33.5 L, MCV 97.7, MCH 31.5, MCHC 32.2, RDW Std Deviation 50.5 H, RDW Coeff of Conchis 14.3, Plt Count 224, MPV 9.5, Immature Gran % (Auto) 0.300, Neut % (Auto) 54.3, Lymph % (Auto) 38.2, Falls % (Auto) 6.0, Eos % (Auto) 0.8, Baso % (Auto) 0.4, Absolute Neuts (auto) 6.5, Absolute Lymphs (auto) 4.57 H, Nucleated RBC % 0 02/10/20 14:10: PT Cancelled, INR Cancelled, APTT Cancelled 02/10/20 14:10: Sodium 144, Potassium 3.1 L, Chloride 110 H, Carbon Dioxide 22.0, Anion Gap 12, BUN 14, Creatinine 0.98, Estim Creat Clear Calc 46.19, Est GFR (MDRD) Af Amer 70, Est GFR (MDRD) Non-Af 58 L, BUN/Creatinine Ratio 14.2, Glucose 294 H, Calcium 8.5, Total Bilirubin 1.30 H, AST 41 H, ALT 28, Alkaline Phosphatase 90, Troponin I 2.700 H*, Total Protein 7.3, Albumin 3.5, Globulin 3.8, Albumin/Globulin Ratio 0.9 02/10/20 14:10: Lactic Acid 5.1 H* 02/10/20 14:10: B-Natriuretic Peptide 1273.2 H 02/10/20 14:10: Magnesium 2.3 02/10/20 14:18: COVID-19 (ELLIOTT) Not Detected 02/10/20 14:25: Specimen Type ART, Sample Site L BRACHIAL, pH 7.07 L*, Bicarbonate Actual 14.7 L, POC Total CO2 16, Base Excess -15 L, O2 Saturation 99, O2 % 50, ABG pCO2 50.9 H, ABG pO2 200 H, Perico Test POS, Respiration Rate 12, O2 Delivery Device Bi Pap, Vent Mode Pending, EPAP 6, IPAP 12, Blood Gas Notified Whom ED , Blood Gas Notified Time 1425 02/10/20 15:25: PT 14.8, INR 1.2, APTT 23.7 L 02/10/20 17:30: Troponin I 15.500 H* 02/10/20 18:30: Lactic Acid 2.1 H* 02/10/20 20:25: Troponin I 28.900 H* 02/10/20 21:34: POC Glucose 242 H 02/11/20 04:15: WBC 4.3 L, RBC 2.51 L, Hgb 7.9 L, Hct 24.7 L, MCV 98.4, MCH 31.5, MCHC 32.0, RDW Std Deviation 52.0 H, RDW Coeff of [place]chis 14.4, Plt Count 124 L, MPV 9.6, Immature Gran % (Auto) 0.200, Neut % (Auto) 59.4, Lymph % (Auto) 28.7, Falls % (Auto) 10.1 H, Eos % (Auto) 1.4, Baso % (Auto) 0.2, Absolute Neuts (auto) 2.5, Absolute Lymphs (auto) 1.22, Nucleated RBC % 0 02/11/20 04:15: Sodium 145, Potassium 2.9 L, Chloride 109 H, Carbon Dioxide 30.0, Anion Gap 6, BUN 14, Creatinine 0.76, Estim Creat Clear Calc 45.26, Est GFR (MDRD) Af Amer 94, Est GFR (MDRD) Non-Af 78, BUN/Creatinine Ratio 18.4, Glucose 192 H, Calcium 7.8 L 02/11/20 06:00: WBC 5.0, RBC 2.61 L, Hgb 8.3 L, Hct 25.8 L, MCV 98.9, MCH 31.8, MCHC 32.2, RDW Std Deviation 51.3 H, RDW Coeff of [place]chis 14.5, Plt Count 135 L, MPV 9.1, Immature Gran % (Auto) 0.400, Neut % (Auto) 58.7, Lymph % (Auto) 29.5, Falls % (Auto) 9.4, Eos % (Auto) 1.6, Baso % (Auto) 0.4, Absolute Neuts (auto) 2.9, Absolute Lymphs (auto) 1.47, Nucleated RBC % 0 Current Medications Acetaminophen (Tylenol) 650 mg PO Q6H PRN PRN PRN Reason: Pain Score 1-10/Temp > 100.7 F Amlodipine Besylate (Norvasc) 5 mg PO DAILY [facility] Ascorbic Acid (Vitamin C) 500 mg PO DAILY [facility] Aspirin (Ecotrin) 81 mg PO DAILY@0800 [facility] Carvedilol (Coreg) 3.125 mg PO BIDCM [facility] Last Admin: 02/10/20 17:28 Dose: Not Given Documented by: Cholecalciferol (Vitamin D (25mcg)) 5,000 unit PO DAILY [facility] Dextrose (D50w Syringe) 0 gm IV X1 PRN; Protocol PRN Reason: Hypoglycemia Enoxaparin Sodium (Lovenox) 90 mg 1 mg/kg (90 mg) SC Q12@0600,1800 [facility] Last Admin: 02/11/20 06:34 Dose: Not Given Documented by: Folic Acid (Folic Acid) 1 mg PO DAILYCM [facility] Furosemide (Lasix) 40 mg IV BID@1000,1800 [facility] Last Admin: 02/10/20 17:28 Dose: Not Given Documented by: Glucagon () 1 mg IM .X1 PRN PRN Reason: Hypoglycemia Potassium Chloride 40 meq/ (Sodium Chloride) 120 mls @ 100 mls/hr IV BOLUS X1 ONE Stop: 02/11/20 07:11 Sodium Chloride () 500 mls @ 15 mls/hr IV PRN PRN PRN Reason: Blood Transfusion Insulin Glargine (Lantus (Bk)) 34 units SC DAILY [facility] Insulin Human Lispro (Humalog Kwikpen ([facility])) 8 unit SC TIDCM [facility] Insulin Human Lispro (Humalog Kwikpen ([facility])) 0 unit SC TIDAC [facility]; Protocol Isosorbide Mononitrate (Imdur) 90 mg PO DAILY [facility] Isosorbide Mononitrate (Imdur) 60 mg PO DAILY@2200 [facility] Last Admin: 02/10/20 21:41 Dose: 60 mg Documented by: Levothyroxine Sodium (Synthroid) 100 mcg PO DAILY@0600 [facility] Losartan Potassium (Cozaar) 50 mg PO DAILY [facility] Metolazone (Zaroxolyn) 2.5 mg PO We@1000 [facility] Multivitamins (Multivitamin) 1 tablet PO DAILY@0800 [facility] Nitroglycerin (Nitrostat) 0.4 mg SUBLINGUAL PRN PRN Ondansetron HCl (Zofran) 4 mg IV Q8H PRN PRN PRN Reason: NAUSEA/VOMITING Potassium Chloride (K-Dur) 20 meq PO DAILY [facility] Pravastatin Sodium (Pravachol) 80 mg PO DAILY@2200 [facility] Last Admin: 02/10/20 21:40 Dose: 80 mg Documented by: Ranolazine (Ranexa) 1,000 mg PO BID [facility] Last Admin: 02/10/20 21:40 Dose: 1,000 mg Documented by: Sodium Chloride () 10 - 40 ml IV UD PRN PRN Reason: SALINE FLUSH Last Admin: 02/11/20 04:12 Dose: 20 ml Documented by: Ticagrelor (Brilinta) 90 mg PO BID [facility] Last Admin: 02/10/20 21:39 Dose: 90 mg Documented by: Tramadol HCl (Ultram) 50 mg PO BID PRN PRN PRN Reason: Pain 1-10/10 or Fever Clinical Impression(s) from Imaging Studies Brain CT 02/10/20 12:43 IMPRESSION: Chronic involutional changes without evidence of acute intracranial or calvarial abnormality. There is no acute interval change. Electronically Signed: Garrett Pineda DO at 16:58 EDT Tel [phone], Service support , Chest X-Ray 02/10/20 13:55 IMPRESSION: Interstitial CHF. Electronically Signed: Jasiel Luna, at 14:25 EDT , Service support , Chest X-Ray 02/10/20 15:19 IMPRESSION: The tip of the right central venous catheter is in the proximal portion of the superior vena cava. Stable interstitial CHF. Electronically Signed: Jasiel Luna at 15:48 EDT , Service support , Assessment/Plan Active and Suspected Problems (Last Reviewed 02/10/20 @ 16:[address] Marty Castillo DO) Acute CHF (Acute) Respiratory failure (Acute) UTI (urinary tract infection) (Acute) Septic shock (Acute) Hypokalemia (Acute) Abnormal EKG (Acute) Elevated troponin (Acute) RECOMMENDATIONS: 1. Consider echocardiogram 2. Possible transfusion of blood 3. Likely okay to resume baseline Lasix therapy 4. Change CODE STATUS to full code 5. Increase activity as tolerated IMPRESSIONS: 1. Acute hypoxic respiratory failure secondary to acute CHF secondary to non-ST elevation ND Patient with a known LAD lesion with medical management. Significant elevation in troponin overnight is suggestive of a non-ST elevation ND. This could be the inciting incident leading to presentation. Patient did have a good response to Lasix therapy and has been able to be taken off of BiPAP therapy. Blood pressures remain marginal. Cardiology has been consulted. Patient may benefit from an echocardiogram for comparison to baseline, but concern would be that the LAD lesion has occluded. Continue on ARB and carvedilol. Likely okay to transition to baseline diuretic therapy for now. Patient will receive potassium supplementation. 2. Possible acute blood loss anemia Patient with significant drop in her hemoglobin despite diuretic therapy. Patient gives a questionable history of possible GI bleed prior to presentation. We will continue to monitor clinically. Will discuss with cardiology about possible transfusion given the setting of acute ND. Patient is on antiplatelet therapy. 3. 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 Patient understands her guarded status, but still wishes to be a full code. We will have to watch blood sugars closely. Patient is on a fluid restriction and beta-radha for liver cirrhosis. Will need to verify the patient is her own guardian, but appears appropriate at this time. Inpatient E&M: 97661 Init Hosp L3
--- NOTE | 2020-02-11 08:13 | PCM.CONS.C ---
Problem List (1) Acute CHF Status: Acute Qualifiers: Heart failure type: systolic Qualified Code(s): I50.21 - Acute systolic (congestive) heart failure (2) NSTEMI (non-ST elevated myocardial infarction) Status: Acute (3) Atherosclerotic heart disease [place] coronary artery w/angina pectoris Status: Chronic Qualifiers: [place] vs. transplanted heart: [place] heart Qualified Code(s): I25.119 - Atherosclerotic heart disease of [place] coronary artery with unspecified angina pectoris Comment: PCI of ostial and mid LCX in-stent restenosis with laser atherectomy, balloon angioplasty per Dr. Rodriguez [facility] 08/20/18 PCI PTCA and laser atherectomy of proximal Circumflex 02/03/2018 PTCA-ostail/prox LCx @ [facility] 11/09/2017 PTCA-Cutting Balloon Atherectomy w/ placement of 2.5 x 20 mm Synergy Stent, Distal LM-into the Ostium of LAD Stented w/ 4.0 x 16 mm Synergy Stent 06/2017PTCA-OM 04/2017 PCI-LAD with a 2.75x38 Promus Premier drug eluting stent. 12/15/13 RAYMON of Right Posterior Lateral (Mid) wIth 3.0 x 2.8 Cypher, followed upstream with 3.0 x 8 Cypher, RAYMON of Right PDA (Ostial) with 25 x 28 Cypher 09/17/2007 (4) CAD (coronary artery disease) Status: Chronic Qualifiers: Coronary Disease-Associated Artery/Lesion type: [place] artery [place] vs. transplanted heart: [place] heart Associated angina: without angina Qualified Code(s): I25.10 - Atherosclerotic heart disease of [place] coronary artery without angina pectoris (5) Chronic systolic (congestive) heart failure Status: Chronic (6) Essential hypertension Status: Chronic (7) History of coronary artery stent placement Status: Chronic Comment: PTCA-ostial/prox LCx @ [facility] 11/09/2017 PTCA-Cutting Balloon Atherectomy w/ placement of 2.5 x 20 mm Synergy Stent, Distal LM-into the Ostium of LAD Stented w/ 4.0 x 16 mm Synergy Stent 06/2017PTCA-OM 04/2017 PCI-LAD with a 2.75x38 Promus Premier drug eluting stent. 12/15/13 RAYMON of Right Posterior Lateral (Mid) wIth 3.0 x 2.8 Cypher, followed upstream with 3.0 x 8 Cypher, RAYMON of Right PDA (Ostial) with 25 x 28 Cypher 09/17/2007; 06/25/2019:LVEF: by LV gram 45-50 % Depressed Left Ventricular systolic function - Mild; Single vessel CAD of the ostial/proximal LCX in stent restenosis. Non obstructive coronary arteries of LM, LAD and RCA. Referred for immediate PCI to Dr Yao at [facility] given high risk nature and proximity to LM and LAD. (8) Hyperlipidemia Status: Chronic Qualifiers: Hyperlipidemia type: unspecified Qualified Code(s): E78.5 - Hyperlipidemia, unspecified (9) NSTEMI (non-ST elevated myocardial infarction) Status: Chronic (10) S/P PTCA (percutaneous transluminal coronary angioplasty) Status: Chronic Comment: PCI of ostial and mid LCX in-stent restenosis with laser atherectomy, balloon angioplasty per Dr. Rodriguez [facility] 08/20/18 PCI PTCA and laser atherectomy of proximal Circumflex 02/03/2018 PTCA-ostial/prox LCx @ [facility] 11/09/2017 PTCA-Cutting Balloon Atherectomy w/ placement of 2.5 x 20 mm Synergy Stent, Distal LM-into the Ostium of LAD Stented w/ 4.0 x 16 mm Synergy Stent 06/2017PTCA-OM 04/2017 PCI-LAD with a 2.75x38 Promus Premier drug eluting stent. 12/15/13 RAYMON of Right Posterior Lateral (Mid) wIth 3.0 x 2.8 Cypher, followed upstream with 3.0 x 8 Cypher, RAYMON of Right PDA (Ostial) with 25 x 28 Cypher 09/17/2007 Reason for Consult Date of Consultation: 02/11/20 Reason for Consultation: Coronary artery disease, non-STEMI, hypertension, hypercholesterolemia, non-correctable coronary disease, schizophrenia. History of Present Illness: The patient is a 79 year old F, well-known to me, with an extensive cardiac history which is outlined in my note as an outpatient. Most recently, the patient was found to have non-correctable coronary artery disease of her ostial proximal left circumflex, requiring several admissions and several transfers to both [facility] as well as [facility]. It was felt due to the high risk nature of the bifurcating left main, LAD and left circumflex that she was not a candidate for additional intervention. The patient has had chronic stable angina which is been fairly well controlled over the last several months. Patient presented with new onset shortness of breath, chest pain, and EKG which showed normal sinus rhythm/sinus tachycardia and enhanced inferior lateral ST segment depression. Patient had been compliant with her aspirin and Brilinta. This morning the patient's hemoglobin dropped by 4 g and a repeat CBC demonstrated that it had dropped by 2 g. Patient was typed and crossed for 1 unit of PRBCs and perhaps 2. Currently the patient is chest pain-free, her breathing is much better, she is resting comfortably. Her peak troponin was 9. Telemetry was negative. Chest x-ray initially showed bilateral pulmonary edema. [] Past Medical History Allergies/Adverse Reactions: Allergies aripiprazole [From Abilify] Allergy (Intermediate, Verified 02/10/20 11:47) it over powered me lisinopril Allergy (Intermediate, Verified 02/10/20 11:47) Unknown atorvastatin calcium [From Lipitor] Adverse Reaction (Verified 02/10/20 11:47) Unknown rosiglitazone maleate [From Avandia] Adverse Reaction (Verified 02/10/20 11:47) Other Home Medications: Ambulatory Orders Medication Instructions Recorded Aspirin [Aspirin, Baby] 81 mg PO DAILY@0800 06/30/17 Nitroglycerin [Nitrostat] 0.4 mg SL PRN PRN 06/30/17 Multivitamins,Therapeutic 1 tab PO DAILY 02/01/18 [Multivitamin] ascorbic acid (vitamin C) 500 mg 500 mg PO DAILY 09/13/18 tablet Insulin Glargine,Hum.rec.anlog 34 unit SUBCUT DAILY 04/23/19 [Torola Faithostmarisabel] Potassium Chloride [K-Dur] 20 meq PO DAILY #30 tab 04/23/19 Carvedilol [Coreg] 3.125 mg PO BIDCM 06/24/19 Cholecalciferol (Vitamin D3) 5,000 unit PO DAILY 06/24/19 [Vitamin D3] Levothyroxine [Synthroid] 100 mcg PO DAILY 07/24/19 pravastatin 80 mg tablet 80 mg PO DAILY #30 tab 09/16/19 losartan 50 mg tablet 50 mg PO DAILY #30 tab 10/14/19 traMADol [Ultram (G)] 50 mg PO BID PRN PRN 11/12/19 metolazone 2.5 mg tablet 2.5 mg PO WE #4 tab 01/05/20 Amlodipine Besylate [Norvasc] 5 mg PO DAILY 02/10/20 Folic Acid 1 mg PO DAILY 02/10/20 Furosemide 40 mg PO BID 02/10/20 Insulin Regular, Human [Humulin R] 8 unit SQ TIDCM 02/10/20 Isosorbide Mononitrate [Isosorbide 30 mg PO DAILY 02/10/20 Mononitrate ER] Isosorbide Mononitrate [Isosorbide 60 mg PO DAILY 02/10/20 Mononitrate ER] Ranolazine [Ranexa] 1,000 mg PO BID 02/10/20 Ticagrelor [Brilinta] 90 mg PO BID 02/10/20 Past Medical History (Chronic Problems): Chronic Problems (Last Updated 02/11/20 @ 08:[address] Massimo Dye MD) Thrombocytopenia (Chronic) CAD (coronary artery disease) (Chronic) Essential hypertension (Chronic) Non-rheumatic aortic stenosis (Chronic) History of coronary artery stent placement (Chronic 06/25/19) PTCA-ostial/prox LCx @ [facility] 11/09/2017 PTCA-Cutting Balloon Atherectomy w/ placement of 2.5 x 20 mm Synergy Stent, Distal LM-into the Ostium of LAD Stented w/ 4.0 x 16 mm Synergy Stent 06/2017PTCA-OM 04/2017 PCI-LAD with a 2.75x38 Promus Premier drug eluting stent. 12/15/13 RAYMON of Right Posterior Lateral (Mid) wIth 3.0 x 2.8 Cypher, followed upstream with 3.0 x 8 Cypher, RAYMON of Right PDA (Ostial) with 25 x 28 Cypher 09/17/2007; 06/25/2019:LVEF: by LV gram 45-50 % Depressed Left Ventricular systolic function - Mild; Single vessel CAD of the ostial/proximal LCX in stent restenosis. Non obstructive coronary arteries of LM, LAD and RCA. Referred for immediate PCI to Dr Yao at [facility] given high risk nature and proximity to LM and LAD. Chronic systolic (congestive) heart failure (Chronic) Schizophrenia (Chronic) S/P PTCA (percutaneous transluminal coronary angioplasty) (Chronic ~11/09/17) PCI of ostial and mid LCX in-stent restenosis with laser atherectomy, balloon angioplasty per Dr. Rodriguez [facility] 08/20/18 PCI PTCA and laser atherectomy of proximal Circumflex 02/03/2018 PTCA-ostial/prox LCx @ [facility] 11/09/2017 PTCA-Cutting Balloon Atherectomy w/ placement of 2.5 x 20 mm Synergy Stent, Distal LM-into the Ostium of LAD Stented w/ 4.0 x 16 mm Synergy Stent 06/2017PTCA-OM 04/2017 PCI-LAD with a 2.75x38 Promus Premier drug eluting stent. 12/15/13 RAYMON of Right Posterior Lateral (Mid) wIth 3.0 x 2.8 Cypher, followed upstream with 3.0 x 8 Cypher, RAYMON of Right PDA (Ostial) with 25 x 28 Cypher 09/17/2007 History of coronary artery stent placement (Chronic) Atherosclerotic heart disease [place] coronary artery w/angina pectoris (Chronic) PCI of ostial and mid LCX in-stent restenosis with laser atherectomy, balloon angioplasty per Dr. Rodriguez [facility] 08/20/18 PCI PTCA and laser atherectomy of proximal Circumflex 02/03/2018 PTCA-ostail/prox LCx @ [facility] 11/09/2017 PTCA-Cutting Balloon Atherectomy w/ placement of 2.5 x 20 mm Synergy Stent, Distal LM-into the Ostium of LAD Stented w/ 4.0 x 16 mm Synergy Stent 06/2017PTCA-OM 04/2017 PCI-LAD with a 2.75x38 Promus Premier drug eluting stent. 12/15/13 RAYMON of Right Posterior Lateral (Mid) wIth 3.0 x 2.8 Cypher, followed upstream with 3.0 x 8 Cypher, RAYMON of Right PDA (Ostial) with 25 x 28 Cypher 09/17/2007 Pancytopenia (Chronic) Hypothyroidism (Chronic) Hyperlipidemia (Chronic) Diabetes mellitus, type II (Chronic) NSTEMI (non-ST elevated myocardial infarction) (Chronic ~09/16/17) Obesity (BMI 30.0-34.9) (Chronic) Surgical History: angioplasty, appendectomy, cholecystectomy, tonsillectomy, - - Spinal fusion Psychiatric History: No pertinent psych hx CLINICAL BIOCHEMICAL GENETICIST History: No pertinent CLINICAL BIOCHEMICAL GENETICIST history - *Family History Maternal Family History: Family History (Last Reviewed 02/10/20 @ 16:[address] Marty Castillo DO) Mother CAD (coronary artery disease) Father CAD (coronary artery disease) History Items: Heart Disease - CAD, - - Schizophrenia Paternal Family History: Family History (Last Reviewed 02/10/20 @ 16:[address] Marty Castillo DO) Mother CAD (coronary artery disease) Father CAD (coronary artery disease) History Items: Heart Disease Smoking Status: Never smoker Review of Systems - Review of Systems General: Denies: Fever, Night Sweats, Fatigue Cardiovascular: Reports: Chest Discomfort, Chest Discomfort at Rest, Shortness of Breath. Denies: Orthopnea, PND, Peripheral Edema, Palpitations, Lightheadedness, Dizziness, Near Syncope, Syncope Respiratory: Denies: Cough, Sputum Production, Hemoptysis Gastrointestinal: Denies: Hematemesis, Hematochezia, Melena Genitourinary: Denies: Dysuria, Hematuria Skin: Denies: Rash Subjectve: Patient resting comfortably, no acute distress. Objective: Vital Signs Temp Pulse Resp BP Pulse Ox 99.1 F 95 15 111/56 L 100 02/11/20 07:00 02/11/20 07:00 02/11/20 07:00 02/11/20 07:00 02/11/20 07:00 Oxygen Flow Rate (L/min) 2 Oxygen Delivery Method Nasal Cannula Weight: 199 lb 11.821 oz Body Mass Index (BMI) 30.3 Finger Stick Blood Glucose 270 Intake and Output for Last 24 Hours 02/09/20 02/10/20 02/11/20 23:59 23:59 23:59 Intake Total 972.5 / 972.5 290 / 290 Output Total 1150 / 1150 150 / 150 Balance -177.5 / -177.5 140 / 140 General: Awake, Alert, Oriented x 3 HEENT: PERRL, EOMI, Sclera Non Icteric Neck: Supple, Good ROM, No Lymph Node Enlargement Lungs: Rales - Kilo Bases Cardiovascular: Regular Rhythm, Normal S1, Normal S2, No Murmurs, No Rubs, No Gallops Vascular: No Carotid Bruits, Normal Femoral Pulses, Normal Radial Pulses, Normal Dorsalis Pedal Pulse, Normal Posterior Tibial Pulses Abdomen: Bowel Sounds Present, Soft, Non Tender, No HSM, No Organomegaly Extremities: No Cyanosis, No Clubbing, No edema Neurological: No Focal Motor or Sensory Deficit 02/10/20 12:20: Urine Color Yellow, Urine Clarity Sl. Cloudy, Urine pH 6.0, Ur Specific [place] 1.015, Urine Protein 30 H, Urine Glucose (UA) 50 H, Urine Ketones 15 H, Urine Occult Blood 10 H, Urine Nitrite Negative, Urine Bilirubin Negative, Urine Urobilinogen 1 H, Ur Leukocyte Esterase 100 H, Urine RBC 0 SEEN, Urine WBC 0-5 SEEN 02/10/20 14:10: WBC 12.0 H, RBC 3.43 L, Hgb 10.8 L, Hct 33.5 L, MCV 97.7, MCH 31.5, MCHC 32.2, Plt Count 224, MPV 9.5, Immature Gran % (Auto) 0.300, Neut % (Auto) 54.3, Lymph % (Auto) 38.2, [place] % (Auto) 6.0, Eos % (Auto) 0.8, Baso % (Auto) 0.4, Absolute Neuts (auto) 6.5, Nucleated RBC % 0 02/10/20 14:10: PT Cancelled, INR Cancelled, APTT Cancelled 02/10/20 14:10: Sodium 144, Potassium 3.1 L, Chloride 110 H, Carbon Dioxide 22.0, Anion Gap 12, BUN 14, Creatinine 0.98, Est GFR (MDRD) Af Amer 70, Est GFR (MDRD) Non-Af 58 L, BUN/Creatinine Ratio 14.2, Glucose 294 H, Calcium 8.5, Total Bilirubin 1.30 H, Troponin I 2.700 H* 02/10/20 14:10: Lactic Acid 5.1 H* 02/10/20 14:10: B-Natriuretic Peptide 1273.2 H 02/10/20 14:10: Magnesium 2.3 02/10/20 14:25: pH 7.07 L*, Bicarbonate Actual 14.7 L, POC Total CO2 16, Base Excess -15 L, O2 Saturation 99, ABG pCO2 50.9 H, ABG pO2 200 H, [place] Test POS 02/10/20 15:25: PT 14.8, INR 1.2, APTT 23.7 L 02/10/20 17:30: Troponin I 15.500 H* 02/10/20 18:30: Lactic Acid 2.1 H* 02/10/20 20:25: Troponin I 28.900 H* 02/11/20 04:15: WBC 4.3 L, RBC 2.51 L, Hgb 7.9 L, Hct 24.7 L, MCV 98.4, MCH 31.5, MCHC 32.0, Plt Count 124 L, MPV 9.6, Immature Gran % (Auto) 0.200, Neut % (Auto) 59.4, Lymph % (Auto) 28.7, [place] % (Auto) 10.1 H, Eos % (Auto) 1.4, Baso % (Auto) 0.2, Absolute Neuts (auto) 2.5, Nucleated RBC % 0 02/11/20 04:15: Sodium 145, Potassium 2.9 L, Chloride 109 H, Carbon Dioxide 30.0, Anion Gap 6, BUN 14, Creatinine 0.76, Est GFR (MDRD) Af Amer 94, Est GFR (MDRD) Non-Af 78, BUN/Creatinine Ratio 18.4, Glucose 192 H, Calcium 7.8 L 02/11/20 06:00: WBC 5.0, RBC 2.61 L, Hgb 8.3 L, Hct 25.8 L, MCV 98.9, MCH 31.8, MCHC 32.2, Plt Count 135 L, MPV 9.1, Immature Gran % (Auto) 0.400, Neut % (Auto) 58.7, Lymph % (Auto) 29.5, [place] % (Auto) 9.4, Eos % (Auto) 1.6, Baso % (Auto) 0.4, Absolute Neuts (auto) 2.9, Nucleated RBC % 0 Rhythm: EKG: ECHO: Stress Test: Cardiac Cath: PCI: CT Surgery: Holter monitor: EPS: PPM: CXR: Chest CT Scan: Assessment/Plan 1. Coronary artery disease: The patient presents with new onset chest pain and shortness of breath, evidence of bilateral pulmonary edema, and non-STEMI. The patient has known non-correctable coronary artery disease, and she may have had additional compromise of her left circumflex system if not complete occlusion. Currently she is stable and chest pain-free. I recommend the patient continue her baby aspirin, Brilinta, and transfuse her at least 1 unit of PRBCs to keep her hemoglobin above 10.0. Patient denies any bright red blood per rectum, but would recommend GI work-up. We can hold her Lovenox at this time. In the meantime I recommend a repeat echocardiogram to determine if her lateral wall has been compromised and update our knowledge of her LV function. Her most recent echocardiogram in 2019 is as follows: The estimated ejection fraction is 55 %. Stage 1 diastolic dysfunction. Mildly dilated right ventricle. Mild (1+) mitral valve insufficiency. Trivial tricuspid valve insufficiency. Right ventricular systolic pressure estimated to be 31 mmHg. Mild aortic stenosis. Trivial aortic valve insufficiency. Compared to echo report dated 02/02/2018, no appreciable changes noted. Once we are aware of her LV function, we can tailor her diuretic therapy. Recommend gentle diuresis to unload her pulmonary system and improve her pulmonary gas exchange. At this point we will hold off on any catheterization given her known non-correctable coronary artery disease. 2. Hyperlipidemia: Continue statin based medications. 3. Discussed with Dr. Carr. Thank you very much for the opportunity to participate in the cardiac care of your patient. Consultation time took place between 740 and 8:15 AM. Inpatient E&M: 62566 Init Hosp L2
--- NOTE | 2020-02-11 08:16 | ECHOD_ITS ---
Reason For Study: CAD/ASHD Procedure This was a 2D Doppler, Color Flow transthoracic echocardiogram. Exam performed portable in ICU/CCU. Left Ventricle Normal size and thickness. The estimated ejection fraction is 55 %. Stage 1 diastolic dysfunction. Anterior [place] : Mildly hypokinetic. Lateral [place] : Mildly hypokinetic. Right Ventricle Normal size and thickness. Normal systolic function. Atria The left atrium is moderately enlarged. Normal right atrium. Normal atrial septum. Mitral Valve Mild diffuse mitral valve thickening. Mild (1+) mitral valve insufficiency. Tricuspid Valve Normal tricuspid valve. Trivial tricuspid valve insufficiency. Right ventricular systolic pressure estimated to be 21 mmHg. Aortic Valve Mild diffuse aortic valve thickening. Moderate focal aortic valve thickening. Mild restriction of the aortic valve. Fusion of right and non coronary cusps. Mild aortic stenosis. Pulmonic Valve Normal pulmonic valve. Great Vessels Calcified aortic root. Mild atherosclerosis of the aortic arch. Normal inferior vena cava. Inferior vena cava collapse with sniff. Pericardium/Pleural No pericardial effusion. MMode/2D Measurements & Calculations LVIDd: 4.9 cm IVSd: 1.2 cm LVOT diam: 2.0 cm LVIDs: 3.4 cm LVPWd: 1.1 cm LVOT area: 3.2 cm2 FS: 31.2 % Ao root diam: 3.5 cm LAV(MOD-bp): 81.2 ml LA A4 area: 23.6 cm2 LAV(MOD-bp) Indexed: 39.7 ml/m2 LAV(MOD-sp2): 57.2 ml LAV(MOD-sp4): 75.8 ml RA A4 area: 14.4 cm2 Time Measurements MV dec time: 0.25 sec Doppler Measurements & Calculations MV E max melo: 80.8 cm/sec Lat Peak E' Melo: 7.8 cm/sec Med Peak E' Melo: 5.7 cm/sec MV A max melo: 100.4 cm/sec E/E' lat: 10.3 E/E' med: 14.1 MV E/A: 0.80 MV V2 max: 122.3 cm/sec MV P1/2t max melo: 93.4 cm/sec Ao V2 max: 211.4 cm/sec MV max P.0 mmHg MV P1/2t: 86.3 msec Ao max P.9 mmHg MV V2 mean: 65.9 cm/sec MV dec slope: 317.0 cm/sec2 Ao V2 mean: 146.8 cm/sec MV mean P.1 mmHg Ao mean P.9 mmHg MV V2 VTI: 30.7 cm MVA(P1/2t): 2.5 cm2 Ao V2 VTI: 42.1 cm MVA(VTI): 2.3 cm2 CASH(I,D): 1.7 cm2 CASH(V,D): 1.5 cm2 LV V1 max: 97.6 cm/sec MR max emlo: 470.2 cm/sec SV(LVOT): 70.1 ml LV V1 max P.8 mmHg MR max P.4 mmHg LV V1 mean P.1 mmHg MR mean melo: 347.0 cm/sec LV V1 mean: 67.5 cm/sec MR mean P.0 mmHg LV V1 VTI: 22.0 cm MR VTI: 151.9 cm PA V2 max: 131.9 cm/sec TR max melo: 198.5 cm/sec TR max P.8 mmHg Interpretation Summary The estimated ejection fraction is 55 %. Stage 1 diastolic dysfunction. The left atrium is moderately enlarged. Mild (1+) mitral valve insufficiency. Trivial tricuspid valve insufficiency. Right ventricular systolic pressure estimated to be 21 mmHg. Fusion of right and non coronary cusps. Mild aortic stenosis. Compared to echo report dated 07/25/2019, no appreciable changes noted. Ordering Physician: Yvan Malik Performed By: Louie Ledbetter RCS
--- NOTE | 2020-02-11 08:46 | PN_ITS ---
Patient Problems: Active and Suspected Problems (Last Updated 02/11/20 @ 08:[address] Massimo Dye MD) Acute [id number] myocardial infarction (Acute) Lactic acidosis (Acute) Acute on chronic CHF (Acute) Subjective: Chief complaint: Follow-up after admission for acute hypoxic and hypercapnic respiratory failure secondary to acute on chronic CHF and acute non-ST relation NV. Patient seen and examined. No acute events overnight. She mentioned that her breathing is getting better. Denied chest pain. Denied dizziness or lightheadedness. She has been afebrile, heart rate has been around 100, blood pressure is borderline, pulse ox is 100% on 2 L. She was on BiPAP early this morning. - Physical Exam Vitals/I&O's: Vital Signs Temp Pulse Resp BP Pulse Ox 99.1 F 95 15 111/56 L 100 02/11/20 07:00 02/11/20 07:00 02/11/20 07:00 02/11/20 07:00 02/11/20 07:00 Oxygen Flow Rate (L/min) 2 Oxygen Delivery Method Nasal Cannula Weight: 199 lb 11.821 oz Body Mass Index (BMI) 30.3 Finger Stick Blood Glucose 270 Intake and Output for Last 24 Hours 02/09/20 02/10/20 02/11/20 23:59 23:59 23:59 Intake Total 972.5 / 972.5 290 / 290 Output Total 1150 / 1150 150 / 150 Balance -177.5 / -177.5 140 / 140 General: Alert, Oriented x3, Cooperative, - - Minimal shortness of breath. HEENT: Atraumatic, PERRLA, EOMI, Normocephalic Oral: Moist Mucosa, No Gingival or Mucosal Lesions/ Ulcerations Neck: Supple, No JVD, Negative Carotid Bruits, Trachea Midline, Thyroid Normal Size and Texture Lungs: Clear to auscultation, No rhonchi, No wheeze, No rales, Diminished, - - Decreased breath sounds bilateral, otherwise clear. Cardiovascular: Regular rate, Regular Rhythm, Normal S1, Normal S2, PMI Normal, Murmur - Systolic murmur. Abdomen: Bowel Sounds Present, Soft, Non Tender, Non-Distended, No Hepato- splenomegaly Extremities: No clubbing, No cyanosis, Edema Lymphatic: No Cervical, Supraclavicular, or Inguinal Adenopathy Neurological: Cranial nerves II-XII grossly intact, Neuro grossly intact Psych/Mental Status: Normal Affect, Appropriate Laboratory Results 02/10/20 12:20: Urine Color Yellow, Urine Clarity Sl. Cloudy, Urine pH 6.0, Ur Specific [place] 1.015, Urine Protein 30 H, Urine Glucose (UA) 50 H, Urine Ketones 15 H, Urine Occult Blood 10 H, Urine Nitrite Negative, Urine Bilirubin Negative, Urine Urobilinogen 1 H, Ur Leukocyte Esterase 100 H, Urine RBC 0 SEEN, Urine WBC 0-5 SEEN, Ur Squamous Epith Cells 0-5 SEEN, Urine Bacteria RARE, Urine Mucus RARE 02/10/20 14:10: WBC 12.0 H, RBC 3.43 L, Hgb 10.8 L, Hct 33.5 L, MCV 97.7, MCH 31.5, MCHC 32.2, RDW Std Deviation 50.5 H, RDW Coeff of Conch[place] 14.3, Plt Count 224, MPV 9.5, Immature Gran % (Auto) 0.300, Neut % (Auto) 54.3, Lymph % (Auto) 38.2, [place] % (Auto) 6.0, Eos % (Auto) 0.8, Baso % (Auto) 0.4, Absolute Neuts (auto) 6.5, Absolute Lymphs (auto) 4.57 H, Nucleated RBC % 0 02/10/20 14:10: PT Cancelled, INR Cancelled, APTT Cancelled 02/10/20 14:10: Sodium 144, Potassium 3.1 L, Chloride 110 H, Carbon Dioxide 22.0, Anion Gap 12, BUN 14, Creatinine 0.98, Estim Creat Clear Calc 46.19, Est GFR (MDRD) Af Amer 70, Est GFR (MDRD) Non-Af 58 L, BUN/Creatinine Ratio 14.2, Glucose 294 H, Calcium 8.5, Total Bilirubin 1.30 H, AST 41 H, ALT 28, Alkaline Phosphatase 90, Troponin I 2.700 H*, Total Protein 7.3, Albumin 3.5, Globulin 3.8, Albumin/Globulin Ratio 0.9 02/10/20 14:10: Lactic Acid 5.1 H* 02/10/20 14:10: B-Natriuretic Peptide 1273.2 H 02/10/20 14:10: Magnesium 2.3 02/10/20 14:18: COVID-19 (ELLIOTT) Not Detected 02/10/20 14:25: Specimen Type ART, Sample Site L BRACHIAL, pH 7.07 L*, Bicarbonate Actual 14.7 L, POC Total CO2 16, Base Excess -15 L, O2 Saturation 99, O2 % 50, ABG pCO2 50.9 H, ABG pO2 200 H, Perico Test POS, Respiration Rate 12, O2 Delivery Device Bi Pap, Vent Mode Not Reportable, EPAP 6, IPAP 12, Blood Gas Notified Whom ED , Blood Gas Notified Time 1425 02/10/20 15:25: PT 14.8, INR 1.2, APTT 23.7 L 02/10/20 17:30: Troponin I 15.500 H* 02/10/20 18:30: Lactic Acid 2.1 H* 02/10/20 20:25: Troponin I 28.900 H* 02/10/20 21:34: POC Glucose 242 H 02/11/20 04:15: WBC 4.3 L, RBC 2.51 L, Hgb 7.9 L, Hct 24.7 L, MCV 98.4, MCH 31.5, MCHC 32.0, RDW Std Deviation 52.0 H, RDW Coeff of [place]ch[place] 14.4, Plt Count 124 L, MPV 9.6, Immature Gran % (Auto) 0.200, Neut % (Auto) 59.4, Lymph % (Auto) 28.7, [place] % (Auto) 10.1 H, Eos % (Auto) 1.4, Baso % (Auto) 0.2, Absolute Neuts (auto) 2.5, Absolute Lymphs (auto) 1.22, Nucleated RBC % 0 02/11/20 04:15: Sodium 145, Potassium 2.9 L, Chloride 109 H, Carbon Dioxide 30.0, Anion Gap 6, BUN 14, Creatinine 0.76, Estim Creat Clear Calc 45.26, Est GFR (MDRD) Af Amer 94, Est GFR (MDRD) Non-Af 78, BUN/Creatinine Ratio 18.4, Glucose 192 H, Calcium 7.8 L 02/11/20 06:00: WBC 5.0, RBC 2.61 L, Hgb 8.3 L, Hct 25.8 L, MCV 98.9, MCH 31.8, MCHC 32.2, RDW Std Deviation 51.3 H, RDW Coeff of [place] 14.5, Plt Count 135 L, MPV 9.1, Immature Gran % (Auto) 0.400, Neut % (Auto) 58.7, Lymph % (Auto) 29.5, [place] % (Auto) 9.4, Eos % (Auto) 1.6, Baso % (Auto) 0.4, Absolute Neuts (auto) 2.9, Absolute Lymphs (auto) 1.47, Nucleated RBC % 0 02/11/20 07:00: Blood Type Pending, Antibody Screen Pending, Crossmatch See Detail Clinical Impression(s) from Imaging Studies Brain CT 02/10/20 12:43 IMPRESSION: Chronic involutional changes without evidence of acute intracranial or calvarial abnormality. There is no acute interval change. Electronically Signed: Garrett Pineda DO at 16:58 EDT Tel [phone], Service support , Chest X-Ray 02/10/20 13:55 IMPRESSION: Interstitial CHF. Electronically Signed: Jasiel Luna, at 14:25 EDT , Service support , Chest X-Ray 02/10/20 15:19 IMPRESSION: The tip of the right central venous catheter is in the proximal portion of the superior vena cava. Stable interstitial CHF. Electronically Signed: Jasiel Luna, at 15:48 EDT , Service support , Current Medications Acetaminophen (Tylenol) 650 mg PO Q6H PRN PRN PRN Reason: Pain Score 1-10/Temp > 100.7 F Amlodipine Besylate (Norvasc) 5 mg PO DAILY PENDING SALE TO [facility] Ascorbic Acid (Vitamin C) 500 mg PO DAILY PENDING SALE TO [facility] Aspirin (Ecotrin) 81 mg PO DAILY@0800 PENDING SALE TO [facility] Carvedilol (Coreg) 3.125 mg PO BIDCM PENDING SALE TO [facility] Last Admin: 02/10/20 17:28 Dose: Not Given Documented by: Cholecalciferol (Vitamin D (25mcg)) 5,000 unit PO DAILY PENDING SALE TO [facility] Dextrose (D50w Syringe) 0 gm IV X1 PRN; Protocol PRN Reason: Hypoglycemia Enoxaparin Sodium (Lovenox) 90 mg 1 mg/kg (90 mg) SC Q12@0600,1800 PENDING SALE TO [facility] Last Admin: 02/11/20 06:34 Dose: Not Given Documented by: Folic Acid (Folic Acid) 1 mg PO DAILYCM PENDING SALE TO [facility] Furosemide (Lasix) 40 mg IV BID@1000,1800 PENDING SALE TO [facility] Last Admin: 02/10/20 17:28 Dose: Not Given Documented by: Glucagon () 1 mg IM .X1 PRN PRN Reason: Hypoglycemia Sodium Chloride () 500 mls @ 15 mls/hr IV PRN PRN PRN Reason: Blood Transfusion Insulin Glargine (Lantus (Bkc)) 34 units SC DAILY PENDING SALE TO [facility] Insulin Human Lispro (Humalog Kwikpen (Bkc)) 8 unit SC TIDCM PENDING SALE TO [facility] Insulin Human Lispro (Humalog Kwikpen (Bkc)) 0 unit SC TIDAC PENDING SALE TO [facility]; Protocol Isosorbide Mononitrate (Imdur) 90 mg PO DAILY PENDING SALE TO [facility] Isosorbide Mononitrate (Imdur) 60 mg PO DAILY@2200 PENDING SALE TO [facility] Last Admin: 02/10/20 21:41 Dose: 60 mg Documented by: Levothyroxine Sodium (Synthroid) 100 mcg PO DAILY@0600 PENDING SALE TO [facility] Last Admin: 02/11/20 06:50 Dose: 100 mcg Documented by: Losartan Potassium (Cozaar) 50 mg PO DAILY PENDING SALE TO [facility] Metolazone (Zaroxolyn) 2.5 mg PO We@1000 PENDING SALE TO [facility] Multivitamins (Multivitamin) 1 tablet PO DAILY@0800 PENDING SALE TO [facility] Nitroglycerin (Nitrostat) 0.4 mg SUBLINGUAL PRN PRN Ondansetron HCl (Zofran) 4 mg IV Q8H PRN PRN PRN Reason: NAUSEA/VOMITING Potassium Chloride (K-Dur) 20 meq PO DAILY PENDING SALE TO [facility] Pravastatin Sodium (Pravachol) 80 mg PO DAILY@2200 PENDING SALE TO [facility] Last Admin: 02/10/20 21:40 Dose: 80 mg Documented by: Ranolazine (Ranexa) 1,000 mg PO BID PENDING SALE TO [facility] Last Admin: 02/10/20 21:40 Dose: 1,000 mg Documented by: Sodium Chloride () 10 - 40 ml IV UD PRN PRN Reason: SALINE FLUSH Last Admin: 02/11/20 04:12 Dose: 20 ml Documented by: Ticagrelor (Brilinta) 90 mg PO BID [place] Last Admin: 02/10/20 21:39 Dose: 90 mg Documented by: Tramadol HCl (Ultram) 50 mg PO BID PRN PRN PRN Reason: Pain 1-10/10 or Fever Medical Necessity - Tobacco Use Smoking Status: Never smoker Assessment/Plan All Active Problems (Last Updated 02/11/20 @ 08:[address] Massimo Dye MD) Acute [id number] myocardial infarction (Acute) Lactic acidosis (Acute) Acute on chronic CHF (Acute) This is an 79 years old female patient presented to the emergency room because of change in mental status, found to have acute hypoxic and hypercapnic respiratory failure secondary to acute on chronic congestive heart failure and also found to have acute ST depression NV. #1 acute hypoxic and hypercapnic respiratory failure: Secondary to acute on chronic CHF. Chest x-ray reviewed, revealed bilateral pulmonary vascular congestion. ABG showed pH of 7.07, PCO2 50 and PO2 of 200. Patient was on BiPAP, this morning she is down to 2 L by nasal cannula and pulse ox was 70%. Symptoms are improving. No evidence of pneumonia, sepsis or severe sepsis. COVID-19 PCR was negative. She is on IV Lasix for diuresis as well as p.o. Zaroxolyn. Plan to continue IV diuresis, replace potassium. #2 acute on chronic CHF probably combined systolic and diastolic: She is on IV Lasix, on Coreg, isosorbide mononitrate and losartan. She had 2D echocardiogram on July, that revealed ejection fraction of 55%, stage I diastolic dysfunction, RVSP of 31 and mild aortic stenosis. Her ejection fraction was 45 to 50% on cardiac catheterization on June,. 2D echocardiogram ordered. Cardiology on the case. #[address] depression NV: Troponin is elevated. Patient is chest pain-free. She was on therapeutic Lovenox but was held because of significant drop in her hemoglobin. She is on aspirin, Coreg, statins, Brilinta, nitrate and losartan. 2D echocardiogram ordered as above. At this time, no plan for further cardiac testing according to cardiology. #4 lactic acidosis/metabolic acidosis: This is likely due to acute respiratory failure and tissue hypoxia. No evidence of infection, no UTI or pneumonia. Lactic acid improved. Patient has been afebrile, no leukocytosis today. #5 anemia/thrombocytopenia: Patient does have chronic anemia and chronic thrombocytopenia. Her baseline hemoglobin is been around anywhere from 8 to 10 g/dL. Admission hemoglobin was 10.8, Down to 8.3 today. No evidence of active bleeding. Plan to transfuse 1 unit of packed RBCs, monitor hemoglobin and hematocrit. #6 CAD status post stents: Plan as above, continue aspirin, Brilinta, statins, beta-blockers, losartan and nitrate. #7 type 2 diabetes mellitus: Continue ADA diet, Lantus daily, Humalog 3 times daily as well as sliding scale. #8 hypertension: Blood pressure was borderline, continue Norvasc, Coreg mononitrate and losartan. #9 hypothyroidism: Continue levothyroxine. #10 DVT prophylaxis: SCDs. This note was generated with Qustreet dictation software. It may contain incorrect words, spelling, and punctuation that were not noted in checking the note before signing. Inpatient E&M: 11974 Subs Hosp L2
[2020-02-11] MEDS: Carvedilol 3.125 MG TABLET PO ×2 (08:51→17:22)
[2020-02-11] MEDS: Folic Acid 1 MG Tablet PO (08:51)
[2020-02-11] MEDS: Multivitamins,Therapeutic Tablet 1 TABLET PO (08:51)
[2020-02-11] MEDS: Aspirin E.C. 81 MG Tablet PO (08:51)
[2020-02-11] MEDS: Insulin Lispro 100 UNIT/ML INSULN.PEN 8 UNIT SC ×2 (09:17→12:30)
[2020-02-11 09:26] LABS: Bedside Glucose 178 mg/dL (70-110)
--- NOTE | 2020-02-11 09:47 | CASEMGMT ---
Addendum entered by Jadyn Barfield 02/11/20 15:01: Social Work Return call from Counseling center and unable to provide any information at this time. No legal guardians noted, Pt is own decision maker. KARIN Ybarra Original Note: Social Work Pt admitted to ICU 02/09 and physician inquiring if pt is own decision maker. Phone call to leland Louis staff at [facility]. Pt is on the [employer]port program and Haleigh De León is CM. Pt receives 7 hours of aid service a week through [employer], 7 delivered meals a week and a lifeline. [employer] has no information on family contacts. Pt is a client at the [facility]. Phone call to counseling Center and VM left with pt Prosthetic Aides Teacher Luciana Roy. SW will await return call. KARIN Ybarra
[2020-02-11] MEDS: amLODIPine 5 MG Tablet PO (10:29)
[2020-02-11] MEDS: Losartan Potassium 50 MG Tablet PO (10:29)
[2020-02-11] MEDS: TICAGRELOR 90 MG TABLET PO ×2 (10:30→21:25)
[2020-02-11] MEDS: Ranolazine 500 MG Tablet 1000 MG PO ×2 (10:30→21:23)
[2020-02-11] MEDS: Ascorbic Acid 500 MG Tablet PO (10:30)
--- NOTE | 2020-02-11 12:00 | CASEMGMT ---
Addendum entered by Merry Osborne 02/11/20 14:24: Call received from Zoila @ [facility] and they are able to accept pt. Original Note: RN CM INSTRUMENT AND ELECTRICAL TECHNICIAN CM to room to meet with patient for initial transition planning/care coordination assessment. RN CM introduced self and role at [facility]. Pt voices understanding and consents to assessment at this time. Pt resting in bed in no distress at this time. Pt is A/O at this time and answers all questions appropriately. Care providers, pharmacy, and demographics verified/updated at this time. PCP: Dr Cohen Specialists: Dr Malik--cardiology, [facility] Preferred Pharmacy: [facility] Insurance: [employer] Prescription Benefit: Yes Lpaperwork. Piving Will/HPOA: does not have LW or HCPOA . Provided information on advanced directives and given Social Service rac card with number to call if chooses in the future to utilize [facility] social work for advanced directive completion. LNOK: tatyanaWagner newberry. 2 sons: one lives in [facility]) and one lives in [place] Passport Services: ALEXY Ray. Aides 7 hours a week through [employer]. Pt was getting meals delivered but she cancelled them. States she buys her own groceries and makes her own meals. Living Arrangements: Lives alone in an apartment. Has a rollator. does own bathing but aide would assist her if needed. Transportation: [place] or Taxi service DME: has the following DME: Rollator. No home O2. Pt states no need for further DME at this time. HHC/SNF: No history of SNF. has had HHC in the past but does not remember name of agency. Discussed options @ discharge, including SNF and HHC. Pt states she does not want to go to a SNF, that she wishes to return home. Pt would like HHC. Provided with list of local HHC agencies and 1st choice is [facility]. Call placed to Zoila @ [facility] and referral made for SN and PT/OT. Awaiting acceptance. Discussed Palliative care w/pt for symptom management of CHF and pt is agreeable. Jadyn, SUAD, aware. Pt wishes to return home w/HHC and has no concerns w/going home at discharge. CM to follow for any further discharge planning/needs. Pt voices no further concerns/needs at this time. Advised pt to ask for CM if any further questions/concerns/needs arise. Voices understanding. PLAN: Home w/HHC. Awaiting acceptance from [facility]. SW consult for Palliative referral. Darin CHOUN RN CM
[2020-02-11] MEDS: Insulin Lispro 100 UNIT/ML INSULN.PEN SC (12:30)
[2020-02-11] MEDS: Isosorbide Mononitrate 30 MG Tablet 90 MG PO (12:32)
[2020-02-11 12:41] LABS: Bedside Glucose 163 mg/dL (70-110)
[2020-02-11] MEDS: Ceftriaxone 1 GM/50 ML BAG IV (13:39)
[2020-02-11] MEDS: Furosemide 40 MG/4 ML Vial IV ×2 (13:39→21:19)
[2020-02-11 15:22] LABS: Absolute Lymphocyte Count 1.09 X10^3/uL (0.83-4.51); Absolute Neutrophil Count 2.3 X10^3/uL (2.0-7.7); Basophil# 0.01 X10^3/uL; Basophil% 0.3 % (0-1); Eosinophil# 0.05 X10^3/uL; Eosinophils% 1.3 % (0-5); Hematocrit 25.9 % (37-47); Hemoglobin 8.1 g/dL (12.0-15.0); Lymphocyte # 1.09 X10^3/ul (4.0); Lymphocyte % 28.2 % (19-41); Mean Corp Hgb Conc 31.3 g/dL (32-36); Mean Corpuscular Hgb 31.2 pg (27.0-32.0); Mean Corpuscular Volume 99.6 fL (81-99); Monocyte# 0.44 X10^3/uL; Monocyte% 11.4 % (0-10); NRBC Flagged by Analyzer 0 % (0-5); Neutrophil # 2.27 X10^3/uL (2.7-7.7); Neutrophil % 58.5 % (47-70); Platelet Count 107 K/mm3 (150-450); RBC Distribution Width CV 14.5 % (11.6-14.6); RBC Distribution Width SD 52.8 fl (35.1-43.9); White Blood Count 3.9 K/mm3 (4.4-11.0)
--- NOTE | 2020-02-11 15:50 | CASEMGMT ---
Social Work Palliative Medicine screen completed with score of 7. SW met with pt and discussed palliative medicine program. Pt is agreeable to referral. Phone call to Brandee at [facility] and referral made. Clinicals faxed and Palliative to contact pt after discharge. KARIN Ybarra
[2020-02-11 17:15] LABS: Bedside Glucose 67 mg/dL (70-110)
[2020-02-11] MEDS: traMADol 50 MG Tablet PO (18:59)
--- NOTE | 2020-02-11 19:17 | CPS ---
PT DID NOT WANT TO WEAR BIPAP AT HS -NO RESP DISTRESS NOTED PT 95% ON ROOM AIR
[2020-02-11] MEDS: Pravastatin 80 MG Tablet PO (21:24)
[2020-02-11] MEDS: Isosorbide Mononitrate 60 MG Tablet PO (21:25)
[2020-02-11 21:41] LABS: Bedside Glucose 165 mg/dL (70-110)
--- NOTE | 2020-02-11 23:22 | CPS ---
pt had on for about 10 min before calling the nurse to take off-
[2020-02-12] VITALS (15 sets, daily range): BP systolic 94–121; BP diastolic 42–56; PULSE 65–76; RESP 16–18; TEMP 36.7–37.1; O2SAT 94–99
[2020-02-12 05:43] LABS: Absolute Lymphocyte Count 1.38 X10^3/uL (0.83-4.51); Absolute Neutrophil Count 1.7 X10^3/uL (2.0-7.7); Basophil# 0.02 X10^3/uL; Basophil% 0.6 % (0-1); Eosinophil# 0.07 X10^3/uL; Hematocrit 25.5 % (37-47); Hemoglobin 8.2 g/dL (12.0-15.0); Lymphocyte # 1.38 X10^3/ul (4.0); Lymphocyte % 39.4 % (19-41); Mean Corp Hgb Conc 32.2 g/dL (32-36); Mean Corpuscular Hgb 31.3 pg (27.0-32.0); Mean Corpuscular Volume 97.3 fL (81-99); Mean Platelet Vol. 9.7 fl (6.2-12.0); Monocyte# 0.31 X10^3/uL; Monocyte% 8.9 % (0-10); NRBC Flagged by Analyzer 0 % (0-5); Neutrophil # 1.71 X10^3/uL (2.7-7.7); Neutrophil % 48.8 % (47-70); Platelet Count 111 K/mm3 (150-450); RBC Distribution Width CV 14.9 % (11.6-14.6); RBC Distribution Width SD 52.3 fl (35.1-43.9); Red Blood Count 2.62 M/mm3 (4.2-5.4); White Blood Count 3.5 K/mm3 (4.4-11.0)
[2020-02-12 05:58] LABS: Anion Gap 5 (5-15); BUN 16 mg/dL (7-18); BUN/Creat Ratio 18.6 RATIO (10-20); Calcium,Total 7.9 mg/dL (8.5-10.1); Chloride 110 mmol/L (98-107); Creatinine, Serum 0.86 mg/dL (0.55-1.02); EST Glomerular Filtration Rate 67 mL/min (>60); Est Glom Filt Rate - Afr Amer 82 mL/min (>60); Estimated Creatinine Clearance 52.63 ml/min; Glucose 111 mg/dL (74-106); Potassium 3.6 mmol/L (3.5-5.1); Sodium Level 143 mmol/L (136-145)
[2020-02-12] MEDS: Levothyroxine 100 MCG Tablet PO (06:15)
[2020-02-12 06:41] LABS: Bedside Glucose 100 mg/dL (70-110)
[2020-02-12] MEDS: Furosemide 40 MG/4 ML Vial IV ×2 (09:18→17:41)
[2020-02-12] MEDS: Folic Acid 1 MG Tablet PO (09:19)
[2020-02-12] MEDS: amLODIPine 5 MG Tablet PO (09:19)
[2020-02-12] MEDS: Multivitamins,Therapeutic Tablet 1 TABLET PO (09:19)
[2020-02-12] MEDS: Losartan Potassium 50 MG Tablet PO (09:19)
[2020-02-12] MEDS: Ascorbic Acid 500 MG Tablet PO (09:19)
[2020-02-12] MEDS: TICAGRELOR 90 MG TABLET PO ×2 (09:19→22:15)
[2020-02-12] MEDS: Carvedilol 3.125 MG TABLET PO ×2 (09:19→17:41)
[2020-02-12] MEDS: Isosorbide Mononitrate 30 MG Tablet 90 MG PO (09:19)
[2020-02-12] MEDS: Ranolazine 500 MG Tablet 1000 MG PO ×2 (09:20→22:15)
[2020-02-12] MEDS: Aspirin E.C. 81 MG Tablet PO (09:21)
--- NOTE | 2020-02-12 09:29 | PN_ITS ---
Subjective: Patient transferred out of the intensive care unit yesterday. Patient has done well on room air overnight. Patient feels that she is strong enough to go home. No respiratory complaints have been reported. Patient is denying any current chest pain. General: Alert, Oriented x3, Cooperative, No apparent distress, Well developed, Well nourished, - - Obese. Speaking full sentences. HEENT: Atraumatic, PERRLA, EOMI, Normocephalic, - - No scleral icterus or injection noted Oral: Moist Mucosa, No Gingival or Mucosal Lesions/ Ulcerations, - - Carotid posterior pharynx Neck: Supple, No JVD, No Nodes, Trachea Midline Lungs: No rhonchi, No wheeze, No rales, Diminished, - - Symmetric expansion. No dullness to percussion. Cardiovascular: Regular rate, Regular Rhythm, Normal S1, Normal S2, No murmurs, No rub noted, No Gallop Abdomen: Bowel Sounds Present, Soft, Non Tender, Non-Distended, Obese Extremities: No clubbing, No cyanosis, Capillary Refill Less than 3 Seconds, Edema Skin: - - No change compared to previous Musculoskeletal: No Tenderness to Palpation of Joints or Extremities Lymphatic: No Cervical, Supraclavicular, or Inguinal Adenopathy Neurological: Cranial nerves II-XII grossly intact, Neuro grossly intact, Motor Exam 5/5 strength throughout Psych/Mental Status: Alert and oriented to time, place, person, mood and affect Vital Signs Temp Pulse Resp BP Pulse Ox 36.9 C 75 18 108/49 L 97 02/12/20 09:13 02/12/20 09:13 02/12/20 09:13 02/12/20 09:13 02/12/20 09:13 Oxygen Flow Rate (L/min) 2 Oxygen Delivery Method Room Air Weight: 89.5 kg Body Mass Index (BMI) 30.3 Finger Stick Blood Glucose 270 Intake and Output for Last 24 Hours 02/10/20 02/11/20 02/12/20 23:59 23:59 23:59 Intake Total 972.5 / 972.5 1240 / 1240 230 / 230 Output Total 1150 / 1150 1350 / 1350 250 / 250 Balance -177.5 / -177.5 -110 / -110 -20 / -20 Labs (Last 48 Hours) 0702/10/20 02/10/20 12:20 14:10 14:10 WBC 12.0 H RBC 3.43 L Hgb 10.8 L Hct 33.5 L MCV 97.7 MCH 31.5 MCHC 32.2 RDW Std Deviation 50.5 H RDW Coeff of Conch[place] 14.3 Plt Count 224 MPV 9.5 Immature Gran % (Auto) 0.300 Neut % (Auto) 54.3 Lymph % (Auto) 38.2 [place] % (Auto) 6.0 Eos % (Auto) 0.8 Baso % (Auto) 0.4 Absolute Neuts (auto) 6.5 Absolute Lymphs (auto) 4.57 H Nucleated RBC % 0 PT Cancelled INR Cancelled APTT Cancelled Specimen Type Sample Site pH Bicarbonate Actual POC Total CO2 Base Excess O2 Saturation O2 % ABG pCO2 ABG pO2 Perico Test Respiration Rate O2 Delivery Device Vent Mode EPAP IPAP Blood Gas Notified Whom Blood Gas Notified Time Sodium Potassium Chloride Carbon Dioxide Anion Gap BUN Creatinine Estim Creat Clear Calc Est GFR (MDRD) Af Amer Est GFR (MDRD) Non-Af BUN/Creatinine Ratio Glucose Lactic Acid Calcium Magnesium Total Bilirubin AST ALT Alkaline Phosphatase Troponin I B-Natriuretic Peptide Total Protein Albumin Globulin Albumin/Globulin Ratio Urine Color Yellow Urine Clarity Sl. Cloudy Urine pH 6.0 Ur Specific [place] 1.015 Urine Protein 30 H Urine Glucose (UA) 50 H Urine Ketones 15 H Urine Occult Blood 10 H Urine Nitrite Negative Urine Bilirubin Negative Urine Urobilinogen 1 H Ur Leukocyte Esterase 100 H Urine RBC 0 SEEN Urine WBC 0-5 SEEN Ur Squamous Epith Cells 0-5 SEEN Urine Bacteria RARE Urine Mucus RARE COVID-19 (ELLIOTT) POC Glucose Blood Type Antibody Screen Crossmatch 02/10/20 02/10/20 02/10/20 14:10 14:10 14:10 WBC RBC Hgb Hct MCV MCH MCHC RDW Std Deviation RDW Coeff of [place] Plt Count MPV Immature Gran % (Auto) Neut % (Auto) Lymph % (Auto) [place] % (Auto) Eos % (Auto) Baso % (Auto) Absolute Neuts (auto) Absolute Lymphs (auto) Nucleated RBC % PT INR APTT Specimen Type Sample Site pH Bicarbonate Actual POC Total CO2 Base Excess O2 Saturation O2 % ABG pCO2 ABG pO2 Perico Test Respiration Rate O2 Delivery Device Vent Mode EPAP IPAP Blood Gas Notified Whom Blood Gas Notified Time Sodium 144 Potassium 3.1 L Chloride 110 H Carbon Dioxide 22.0 Anion Gap 12 BUN 14 Creatinine 0.98 Estim Creat Clear Calc 46.19 Est GFR (MDRD) Af Amer 70 Est GFR (MDRD) Non-Af 58 L BUN/Creatinine Ratio 14.2 Glucose 294 H Lactic Acid 5.1 H* Calcium 8.5 Magnesium Total Bilirubin 1.30 H AST 41 H ALT 28 Alkaline Phosphatase 90 Troponin I 2.700 H* B-Natriuretic Peptide 1273.2 H Total Protein 7.3 Albumin 3.5 Globulin 3.8 Albumin/Globulin Ratio 0.9 Urine Color Urine Clarity Urine pH Ur Specific [place] Urine Protein Urine Glucose (UA) Urine Ketones Urine Occult Blood Urine Nitrite Urine Bilirubin Urine Urobilinogen Ur Leukocyte Esterase Urine RBC Urine WBC Ur Squamous Epith Cells Urine Bacteria Urine Mucus COVID-19 ([facility]OTT) POC Glucose Blood Type Antibody Screen Crossmatch 02/10/20 02/10/20 02/10/20 14:10 14:18 14:25 WBC RBC Hgb Hct MCV MCH MCHC RDW Std Deviation RDW Coeff of [place] Plt Count MPV Immature Gran % (Auto) Neut % (Auto) Lymph % (Auto) [place] % (Auto) Eos % (Auto) Baso % (Auto) Absolute Neuts (auto) Absolute Lymphs (auto) Nucleated RBC % PT INR APTT Specimen Type ART Sample Site L BRACHIAL pH 7.07 L* Bicarbonate Actual 14.7 L POC Total CO2 16 Base Excess -15 L O2 Saturation 99 O2 % 50 ABG pCO2 50.9 H ABG pO2 200 H Perico Test POS Respiration Rate 12 O2 Delivery Device Bi Pap Vent Mode Not Reportable EPAP 6 IPAP 12 Blood Gas Notified Whom ED Blood Gas Notified Time 1425 Sodium Potassium Chloride Carbon Dioxide Anion Gap BUN Creatinine Estim Creat Clear Calc Est GFR (MDRD) Af Amer Est GFR (MDRD) Non-Af BUN/Creatinine Ratio Glucose Lactic Acid Calcium Magnesium 2.3 Total Bilirubin AST ALT Alkaline Phosphatase Troponin I B-Natriuretic Peptide Total Protein Albumin Globulin Albumin/Globulin Ratio Urine Color Urine Clarity Urine pH Ur Specific [place] Urine Protein Urine Glucose (UA) Urine Ketones Urine Occult Blood Urine Nitrite Urine Bilirubin Urine Urobilinogen Ur Leukocyte Esterase Urine RBC Urine WBC Ur Squamous Epith Cells Urine Bacteria Urine Mucus COVID-19 ([facility]OTT) Not Detected POC Glucose Blood Type Antibody Screen Crossmatch 02/10/20 02/10/20 02/10/20 15:25 17:30 18:30 WBC RBC Hgb Hct MCV MCH MCHC RDW Std Deviation RDW Coeff of [place] Plt Count MPV Immature Gran % (Auto) Neut % (Auto) Lymph % (Auto) [place] % (Auto) Eos % (Auto) Baso % (Auto) Absolute Neuts (auto) Absolute Lymphs (auto) Nucleated RBC % PT 14.8 INR 1.2 APTT 23.7 L Specimen Type Sample Site pH Bicarbonate Actual POC Total CO2 Base Excess O2 Saturation O2 % ABG pCO2 ABG pO2 Perico Test Respiration Rate O2 Delivery Device Vent Mode EPAP IPAP Blood Gas Notified Whom Blood Gas Notified Time Sodium Potassium Chloride Carbon Dioxide Anion Gap BUN Creatinine Estim Creat Clear Calc Est GFR (MDRD) Af Amer Est GFR (MDRD) Non-Af BUN/Creatinine Ratio Glucose Lactic Acid 2.1 H* Calcium Magnesium Total Bilirubin AST ALT Alkaline Phosphatase Troponin I 15.500 H* B-Natriuretic Peptide Total Protein Albumin Globulin Albumin/Globulin Ratio Urine Color Urine Clarity Urine pH Ur Specific [place] Urine Protein Urine Glucose (UA) Urine Ketones Urine Occult Blood Urine Nitrite Urine Bilirubin Urine Urobilinogen Ur Leukocyte Esterase Urine RBC Urine WBC Ur Squamous Epith Cells Urine Bacteria Urine Mucus COVID-19 ([facility]) POC Glucose Blood Type Antibody Screen Crossmatch 02/10/20 02/10/20 02/11/20 20:25 21:34 04:15 WBC 4.3 L RBC 2.51 L Hgb 7.9 L Hct 24.7 L MCV 98.4 MCH 31.5 MCHC 32.0 RDW Std Deviation 52.0 H RDW Coeff of [place] 14.4 Plt Count 124 L MPV 9.6 Immature Gran % (Auto) 0.200 Neut % (Auto) 59.4 Lymph % (Auto) 28.7 [place] % (Auto) 10.1 H Eos % (Auto) 1.4 Baso % (Auto) 0.2 Absolute Neuts (auto) 2.5 Absolute Lymphs (auto) 1.22 Nucleated RBC % 0 PT INR APTT Specimen Type Sample Site pH Bicarbonate Actual POC Total CO2 Base Excess O2 Saturation O2 % ABG pCO2 ABG pO2 Perico Test Respiration Rate O2 Delivery Device Vent Mode EPAP IPAP Blood Gas Notified Whom Blood Gas Notified Time Sodium Potassium Chloride Carbon Dioxide Anion Gap BUN Creatinine Estim Creat Clear Calc Est GFR (MDRD) Af Amer Est GFR (MDRD) Non-Af BUN/Creatinine Ratio Glucose Lactic Acid Calcium Magnesium Total Bilirubin AST ALT Alkaline Phosphatase Troponin I 28.900 H* B-Natriuretic Peptide Total Protein Albumin Globulin Albumin/Globulin Ratio Urine Color Urine Clarity Urine pH Ur Specific [place] Urine Protein Urine Glucose (UA) Urine Ketones Urine Occult Blood Urine Nitrite Urine Bilirubin Urine Urobilinogen Ur Leukocyte Esterase Urine RBC Urine WBC Ur Squamous Epith Cells Urine Bacteria Urine Mucus COVID-19 ([facility]) POC Glucose 242 H Blood Type Antibody Screen Crossmatch 02/11/20 02/11/20 02/11/20 04:15 06:00 07:00 WBC 5.0 RBC 2.61 L Hgb 8.3 L Hct 25.8 L MCV 98.9 MCH 31.8 MCHC 32.2 RDW Std Deviation 51.3 H RDW Coeff of [place] 14.5 Plt Count 135 L MPV 9.1 Immature Gran % (Auto) 0.400 Neut % (Auto) 58.7 Lymph % (Auto) 29.5 [place] % (Auto) 9.4 Eos % (Auto) 1.6 Baso % (Auto) 0.4 Absolute Neuts (auto) 2.9 Absolute Lymphs (auto) 1.47 Nucleated RBC % 0 PT INR APTT Specimen Type Sample Site pH Bicarbonate Actual POC Total CO2 Base Excess O2 Saturation O2 % ABG pCO2 ABG pO2 Perico Test Respiration Rate O2 Delivery Device Vent Mode EPAP IPAP Blood Gas Notified Whom Blood Gas Notified Time Sodium 145 Potassium 2.9 L Chloride 109 H Carbon Dioxide 30.0 Anion Gap 6 BUN 14 Creatinine 0.76 Estim Creat Clear Calc 45.26 Est GFR (MDRD) Af Amer 94 Est GFR (MDRD) Non-Af 78 BUN/Creatinine Ratio 18.4 Glucose 192 H Lactic Acid Calcium 7.8 L Magnesium Total Bilirubin AST ALT Alkaline Phosphatase Troponin I B-Natriuretic Peptide Total Protein Albumin Globulin Albumin/Globulin Ratio Urine Color Urine Clarity Urine pH Ur Specific [place] Urine Protein Urine Glucose (UA) Urine Ketones Urine Occult Blood Urine Nitrite Urine Bilirubin Urine Urobilinogen Ur Leukocyte Esterase Urine RBC Urine WBC Ur Squamous Epith Cells Urine Bacteria Urine Mucus COVID-19 ([facility]) POC Glucose Blood Type A POSITIVE Antibody Screen NEGATIVE Crossmatch See Detail 02/11/20 02/11/20 02/11/20 09:14 12:26 15:15 WBC 3.9 L RBC 2.60 L Hgb 8.1 L Hct 25.9 L MCV 99.6 H MCH 31.2 MCHC 31.3 L RDW Std Deviation 52.8 H RDW Coeff of [place] 14.5 Plt Count 107 L MPV 9.0 Immature Gran % (Auto) 0.300 Neut % (Auto) 58.5 Lymph % (Auto) 28.2 [place] % (Auto) 11.4 H Eos % (Auto) 1.3 Baso % (Auto) 0.3 Absolute Neuts (auto) 2.3 Absolute Lymphs (auto) 1.09 Nucleated RBC % 0 PT INR APTT Specimen Type Sample Site pH Bicarbonate Actual POC Total CO2 Base Excess O2 Saturation O2 % ABG pCO2 ABG pO2 Perico Test Respiration Rate O2 Delivery Device Vent Mode EPAP IPAP Blood Gas Notified Whom Blood Gas Notified Time Sodium Potassium Chloride Carbon Dioxide Anion Gap BUN Creatinine Estim Creat Clear Calc Est GFR (MDRD) Af Amer Est GFR (MDRD) Non-Af BUN/Creatinine Ratio Glucose Lactic Acid Calcium Magnesium Total Bilirubin AST ALT Alkaline Phosphatase Troponin I B-Natriuretic Peptide Total Protein Albumin Globulin Albumin/Globulin Ratio Urine Color Urine Clarity Urine pH Ur Specific [place] Urine Protein Urine Glucose (UA) Urine Ketones Urine Occult Blood Urine Nitrite Urine Bilirubin Urine Urobilinogen Ur Leukocyte Esterase Urine RBC Urine WBC Ur Squamous Epith Cells Urine Bacteria Urine Mucus COVID-19 ([facility]) POC Glucose 178 H 163 H Blood Type Antibody Screen Crossmatch 02/11/20 02/11/20 02/12/20 17:10 21:32 05:16 WBC 3.5 L RBC 2.62 L Hgb 8.2 L Hct 25.5 L MCV 97.3 MCH 31.3 MCHC 32.2 RDW Std Deviation 52.3 H RDW Coeff of [place] 14.9 H Plt Count 111 L MPV 9.7 Immature Gran % (Auto) 0.300 Neut % (Auto) 48.8 Lymph % (Auto) 39.4 [place] % (Auto) 8.9 Eos % (Auto) 2.0 Baso % (Auto) 0.6 Absolute Neuts (auto) 1.7 L Absolute Lymphs (auto) 1.38 Nucleated RBC % 0 PT INR APTT Specimen Type Sample Site pH Bicarbonate Actual POC Total CO2 Base Excess O2 Saturation O2 % ABG pCO2 ABG pO2 Perico Test Respiration Rate O2 Delivery Device Vent Mode EPAP IPAP Blood Gas Notified Whom Blood Gas Notified Time Sodium Potassium Chloride Carbon Dioxide Anion Gap BUN Creatinine Estim Creat Clear Calc Est GFR (MDRD) Af Amer Est GFR (MDRD) Non-Af BUN/Creatinine Ratio Glucose Lactic Acid Calcium Magnesium Total Bilirubin AST ALT Alkaline Phosphatase Troponin I B-Natriuretic Peptide Total Protein Albumin Globulin Albumin/Globulin Ratio Urine Color Urine Clarity Urine pH Ur Specific [place] Urine Protein Urine Glucose (UA) Urine Ketones Urine Occult Blood Urine Nitrite Urine Bilirubin Urine Urobilinogen Ur Leukocyte Esterase Urine RBC Urine WBC Ur Squamous Epith Cells Urine Bacteria Urine Mucus COVID-19 ([facility]) POC Glucose 67 L 165 H Blood Type Antibody Screen Crossmatch 02/12/20 02/12/20 05:16 06:37 WBC RBC Hgb Hct MCV MCH MCHC RDW Std Deviation RDW Coeff of [place] Plt Count MPV Immature Gran % (Auto) Neut % (Auto) Lymph % (Auto) [place] % (Auto) Eos % (Auto) Baso % (Auto) Absolute Neuts (auto) Absolute Lymphs (auto) Nucleated RBC % PT INR APTT Specimen Type Sample Site pH Bicarbonate Actual POC Total CO2 Base Excess O2 Saturation O2 % ABG pCO2 ABG pO2 Perico Test Respiration Rate O2 Delivery Device Vent Mode EPAP IPAP Blood Gas Notified Whom Blood Gas Notified Time Sodium 143 Potassium 3.6 Chloride 110 H Carbon Dioxide 28.0 Anion Gap 5 BUN 16 Creatinine 0.86 Estim Creat Clear Calc 52.63 Est GFR (MDRD) Af Amer 82 Est GFR (MDRD) Non-Af 67 BUN/Creatinine Ratio 18.6 Glucose 111 H Lactic Acid Calcium 7.9 L Magnesium Total Bilirubin AST ALT Alkaline Phosphatase Troponin I B-Natriuretic Peptide Total Protein Albumin Globulin Albumin/Globulin Ratio Urine Color Urine Clarity Urine pH Ur Specific [place] Urine Protein Urine Glucose (UA) Urine Ketones Urine Occult Blood Urine Nitrite Urine Bilirubin Urine Urobilinogen Ur Leukocyte Esterase Urine RBC Urine WBC Ur Squamous Epith Cells Urine Bacteria Urine Mucus COVID-19 ([facility]) POC Glucose 100 Blood Type Antibody Screen Crossmatch Microbiology 02/10/20 12:20 Urine Catheter - Catheter Urine Culture - Final Streptococcus agalactiae (B) Klebsiella pneumoniae sp pneum Medical Necessity - Tobacco Use Smoking Status: Never smoker Assessment/Plan All Active Problems (Last Updated 02/11/20 @ 08:[address] Massimo Dye MD) Acute respiratory failure with hypoxia and hypercapnia (Acute) Acute [id number] myocardial infarction (Acute) Lactic acidosis (Acute) Acute on chronic CHF (Acute) RECOMMENDATIONS: 1. Defer to cardiology on discharge planning 2. Walking oximetry prior to discharge 3. Likely okay to resume baseline Lasix therapy 4. Hemodynamically stable on room air. Will sign off from a critical care perspective IMPRESSIONS: 1. Acute hypoxic respiratory failure secondary to acute CHF secondary to non-ST elevation NM Patient with a known LAD lesion with medical management. Significant elevation in troponin on admission is suggestive of a non-ST elevation NM. This could be the inciting incident leading to presentation. Patient did have a good response to Lasix therapy and has been able to be taken off of BiPAP therapy. Blood pressures have done okay. Echocardiogram does not show any significant change compared to previous, but has had multiple heart catheterizations suggesting medical management. Continue on ARB and carvedilol. Likely okay to transition to baseline diuretic therapy for now. 2. Possible acute blood loss anemia Patient with significant drop in her hemoglobin despite diuretic therapy. Hemoglobin has remained stable over the last 24 hours. Patient gives a questionable history of possible GI bleed prior to presentation. We will continue to monitor clinically. Will discuss with cardiology about possible transfusion given the setting of acute NM. Patient is on antiplatelet therapy. 3. 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 Patient understands her guarded status, but still wishes to be a full code. We will have to watch blood sugars closely. Patient is on a fluid restriction and beta-radha for liver cirrhosis. Patient is reportedly her own guardian Inpatient E&M: [id number] Subs Hosp L2
[2020-02-12] MEDS: Insulin Lispro 100 UNIT/ML INSULN.PEN 8 UNIT SC ×3 (09:30→17:42)
[2020-02-12 10:35] LABS: Bedside Glucose 199 mg/dL (70-110)
[2020-02-12] MEDS: Insulin Lispro 100 UNIT/ML INSULN.PEN SC (11:14)
--- NOTE | 2020-02-12 11:26 | PCM.PROGNOTE ---
Patient Problems: Active and Suspected Problems (Last Updated 02/11/20 @ 08:[address] Massimo Dye MD) Acute respiratory failure with hypoxia and hypercapnia (Acute) Acute iwx-GA-fvbovrlly myocardial infarction (Acute) Lactic acidosis (Acute) Acute on chronic CHF (Acute) Subjective: Chief complaint: Follow-up after admission for acute hypoxic and hypercapnic respiratory failure secondary to acute on chronic CHF and acute non-ST relation IL. Patient seen and examined. No acute events overnight. This morning, she is feeling much better. Shortness of breath significantly improved. She came off oxygen. Denied chest pain. Her vital signs are stable. - Physical Exam Vitals/I&O's: Vital Signs Temp Pulse Resp BP Pulse Ox 98.4 F 75 18 108/49 L 98 02/12/20 09:13 02/12/20 09:13 02/12/20 09:13 02/12/20 09:13 02/12/20 11:22 Oxygen Flow Rate (L/min) 2 Oxygen Delivery Method Room Air Weight: 197 lb 5.019 oz Body Mass Index (BMI) 30.3 Finger Stick Blood Glucose 270 Intake and Output for Last 24 Hours 02/10/20 02/11/20 02/12/20 23:59 23:59 23:59 Intake Total 972.5 / 972.5 1240 / 1240 470 / 470 Output Total 1150 / 1150 1350 / 1350 500 / 500 Balance -177.5 / -177.5 -110 / -110 -30 / -30 General: Alert, Cooperative, No apparent distress HEENT: Atraumatic, PERRLA, EOMI, Normocephalic Oral: Moist Mucosa, No Gingival or Mucosal Lesions/ Ulcerations Neck: Supple, No JVD, Negative Carotid Bruits, Trachea Midline, Thyroid Normal Size and Texture Lungs: Clear to auscultation, No rhonchi, No wheeze, No rales, Diminished Cardiovascular: Regular rate, Regular Rhythm, Normal S1, Normal S2, PMI Normal Abdomen: Bowel Sounds Present, Soft, Non Tender, Non-Distended, No Hepato-splenomegaly Extremities: No clubbing, No cyanosis, Edema - Trace edema. Skin: No rashes, No breakdown Lymphatic: No Cervical, Supraclavicular, or Inguinal Adenopathy Neurological: Cranial nerves II-XII grossly intact, Neuro grossly intact Psych/Mental Status: Normal Affect, Appropriate Microbiology Past 72 Hours 02/10/20 12:00 Blood Culture (Wb) - Anticubital Right Blood Culture - Preliminary No growth in 48 hours. 02/10/20 13:05 Blood Culture (Wb) - Left Hand Blood Culture - Preliminary No growth in 48 hours. 02/10/20 12:20 Urine Catheter - Catheter Urine Culture - Final Streptococcus agalactiae (B) Klebsiella pneumoniae sp pneum Laboratory Results 02/11/20 07:00: Crossmatch See Detail 02/11/20 12:26: POC Glucose 163 H 02/11/20 15:15: WBC 3.9 L, RBC 2.60 L, Hgb 8.1 L, Hct 25.9 L, MCV 99.6 H, MCH 31.2, MCHC 31.3 L, RDW Std Deviation 52.8 H, RDW Coeff of Conchis 14.5, Plt Count 107 L, MPV 9.0, Immature Gran % (Auto) 0.300, Neut % (Auto) 58.5, Lymph % (Auto) 28.2, [place] % (Auto) 11.4 H, Eos % (Auto) 1.3, Baso % (Auto) 0.3, Absolute Neuts (auto) 2.3, Absolute Lymphs (auto) 1.09, Nucleated RBC % 0 02/11/20 17:10: POC Glucose 67 L 02/11/20 21:32: POC Glucose 165 H 02/12/20 05:16: WBC 3.5 L, RBC 2.62 L, Hgb 8.2 L, Hct 25.5 L, MCV 97.3, MCH 31.3, MCHC 32.2, RDW Std Deviation 52.3 H, RDW Coeff of [place]ch[place] 14.9 H, Plt Count 111 L, MPV 9.7, Immature Gran % (Auto) 0.300, Neut % (Auto) 48.8, Lymph % (Auto) 39.4, [place] % (Auto) 8.9, Eos % (Auto) 2.0, Baso % (Auto) 0.6, Absolute Neuts (auto) 1.7 L, Absolute Lymphs (auto) 1.38, Nucleated RBC % 0 02/12/20 05:16: Sodium 143, Potassium 3.6, Chloride 110 H, Carbon Dioxide 28.0, Anion Gap 5, BUN 16, Creatinine 0.86, Estim Creat Clear Calc 52.63, Est GFR (MDRD) Af Amer 82, Est GFR (MDRD) Non-Af 67, BUN/Creatinine Ratio 18.6, Glucose 111 H, Calcium 7.9 L 02/12/20 06:37: POC Glucose 100 02/12/20 09:29: POC Glucose 199 H Current Medications Acetaminophen (Tylenol) 650 mg PO Q6H PRN PRN PRN Reason: Pain Score 1-10/Temp > 100.7 F Amlodipine Besylate (Norvasc) 5 mg PO DAILY [facility] Last Admin: 02/12/20 09:19 Dose: 5 mg Documented by: Ascorbic Acid (Vitamin C) 500 mg PO DAILY [facility] Last Admin: 02/12/20 09:19 Dose: 500 mg Documented by: Aspirin (Ecotrin) 81 mg PO DAILY@0800 [facility] Last Admin: 02/12/20 09:21 Dose: 81 mg Documented by: [facility] Admin: 02/12/20 09:19 Dose: 3.125 mg Documented by: Cholecalciferol (Vitamin D (25mcg)) 5,000 unit PO DAILY [facility] Last Admin: 02/12/20 09:20 Dose: 5,000 unit Documented by: Dextrose (D50w Syringe) 0 gm IV X1 PRN; Protocol PRN Reason: Hypoglycemia Folic [facility] ([facility] Acid) [facility] Admin: 02/12/20 09:19 Dose: 1 mg Documented by: Furosemide (Lasix) 40 mg IV BID@1000,1800 [facility] Last Admin: 02/12/20 09:18 Dose: 40 mg Documented by: Glucagon () 1 mg IM .X1 PRN PRN Reason: Hypoglycemia Sodium Chloride () 500 mls @ 15 mls/hr IV PRN PRN PRN Reason: Blood Transfusion Insulin Glargine (Lantus (Bk)) 34 units SC DAILY [facility] Last Admin: 02/12/20 09:30 Dose: 34 u Documented by: Insulin Human Lispro (Humalog Kwikpen ([facility])) 8 unit SC TIDCM [facility] Last Admin: 02/12/20 11:14 Dose: 8 u Documented by: Insulin Human Lispro (Humalog Kwikpen ([facility])) 0 unit SC TIDAC [facility]; Protocol Last Admin: 02/12/20 11:14 Dose: 2 u Documented by: Isosorbide Mononitrate (Imdur) 90 mg PO DAILY [facility] Last Admin: 02/12/20 09:19 Dose: 90 mg Documented by: Isosorbide Mononitrate (Imdur) 60 mg PO DAILY@2200 [facility] Last Admin: 02/11/20 21:25 Dose: 60 mg Documented by: Levothyroxine Sodium (Synthroid) 100 mcg PO DAILY@0600 [facility] Last Admin: 02/12/20 06:15 Dose: 100 mcg Documented by: Losartan Potassium (Cozaar) 50 mg PO DAILY [facility] Last Admin: 02/12/20 09:19 Dose: 50 mg Documented by: Metolazone (Zaroxolyn) 2.5 mg PO We@1000 [facility] Last Admin: 02/11/20 13:28 Dose: Not Given Documented by: Multivitamins (Multivitamin) 1 tablet PO DAILY@0800 [facility] Last Admin: 02/12/20 09:19 Dose: 1 tablet Documented by: Nitroglycerin (Nitrostat) 0.4 mg SUBLINGUAL PRN PRN Ondansetron HCl (Zofran) 4 mg IV Q8H PRN PRN PRN Reason: NAUSEA/VOMITING Potassium Chloride (K-Dur) 40 meq PO BIDCM [facility] Last Admin: 02/12/20 09:20 Dose: 40 meq Documented by: Pravastatin Sodium (Pravachol) 80 mg PO DAILY@2200 [facility] Last Admin: 02/11/20 21:24 Dose: 80 mg Documented by: Ranolazine (Ranexa) 1,000 mg PO BID [facility] Last Admin: 02/12/20 09:20 Dose: 1,000 mg Documented by: Sodium Chloride () 10 - 40 ml IV UD PRN PRN Reason: SALINE FLUSH Last Admin: 02/11/20 21:20 Dose: 10 ml Documented by: Ticagrelor (Brilinta) 90 mg PO BID [facility] Last Admin: 02/12/20 09:19 Dose: 90 mg Documented by: Tramadol HCl (Ultram) 50 mg PO BID PRN PRN PRN Reason: Pain 1-10/10 or Fever Last Admin: 02/11/20 18:59 Dose: 50 mg Documented by: Medical Necessity - Tobacco Use Smoking Status: Never smoker Assessment/Plan All Active Problems (Last Updated 02/11/20 @ 08:[address] Massimo Dye MD) Acute respiratory failure with hypoxia and hypercapnia (Acute) Acute nmu-FD-herbzwrrt myocardial infarction (Acute) Lactic acidosis (Acute) Acute on chronic CHF (Acute) This is an 79 years old female patient presented to the emergency room because of change in mental status, found to have acute hypoxic and hypercapnic respiratory failure secondary to acute on chronic congestive heart failure and also found to have acute ST depression [place]. #1 acute hypoxic and hypercapnic respiratory failure: Secondary to acute on chronic CHF. She is on IV diuresis with IV Lasix and Zaroxolyn. Shortness of breath significant improved, she is off oxygen, pulse ox is 97% on room air. Chest x-ray reviewed, revealed bilateral pulmonary vascular congestion. ABG showed pH of 7.07, PCO2 50 and PO2 of 200. COVID-19 PCR was negative. Plan to continue IV diuresis, repeat BMP and CBC tomorrow morning, ambulatory pulse oximeter, anticipate discharge tomorrow. #2 acute on chronic CHF probably combined systolic and diastolic: Remained on IV Lasix, on Coreg, isosorbide mononitrate and losartan. 2D echocardiogram revealed ejection fraction 55%, stage I diastolic dysfunction, RVSP of 21 she had 2D echocardiogram on July, that revealed ejection fraction of 55%, stage I diastolic dysfunction, RVSP of 31 and mild aortic stenosis. Plan as above. #[address] depression IL: She remained chest pain-free. She is on aspirin, Brilinta, statins, beta-blockers, losartan and Imdur. Cardiology on the case, plan for medical treatment. 2D echocardiogram reviewed as above. #4 lactic acidosis/metabolic acidosis: This is likely due to acute respiratory failure and tissue hypoxia. No evidence of infection, no UTI or pneumonia. Lactic acid improved. Patient has been afebrile, no leukocytosis today. #5 Acute on chronic anemia/thrombocytopenia: Patient received 1 unit of packed RBCs, today's hemoglobin is 8.2 g/dL. Today's platelet count is 101,000. No evidence of active bleeding, denies any bleeding from body orifices. Cardiology recommended to give patient another unit of packed RBCs because of acute non-ST elevation IL. Plan to transfuse 1 unit of packed RBCs, repeat CBC tomorrow morning. #6 CAD status post stents: continue aspirin, Brilinta, statins, beta-blockers, losartan and nitrate. #7 type 2 diabetes mellitus: Continue ADA diet, Lantus daily, Humalog 3 times daily as well as sliding scale. #8 hypertension: Blood pressure stabilized, continue Norvasc, Coreg mononitrate and losartan. #9 hypothyroidism: Continue levothyroxine. #10 DVT prophylaxis: SCDs. This note was generated with [employer] dictation software. It may contain incorrect words, spelling, and punctuation that were not noted in checking the note before signing. Inpatient E&M: 55036 Subs Hosp L2
[2020-02-12 15:31] LABS: Bedside Glucose 224 mg/dL (70-110)
[2020-02-12] MEDS: 0.9% Saline Lock 10 ML Syringe IV (17:42)
[2020-02-12 18:11] LABS: Bedside Glucose 123 mg/dL (70-110)
[2020-02-12] MEDS: Isosorbide Mononitrate 60 MG Tablet PO (22:15)
[2020-02-12] MEDS: Pravastatin 80 MG Tablet PO (22:15)
[2020-02-12 22:30] LABS: Bedside Glucose 79 mg/dL (70-110)
--- NOTE | 2020-02-12 23:37 | CPS ---
pt sleeping. o2 sats good.
[2020-02-13 02:59] VITALS: PULSE 68
[2020-02-13 04:15] VITALS: BP 104/50; PULSE 70; RESP 18; TEMP 36.7; O2SAT 98
[2020-02-13] MEDS: Levothyroxine 100 MCG Tablet PO (05:47)
[2020-02-13 06:20] LABS: Absolute Lymphocyte Count 0.92 X10^3/uL (0.83-4.51); Absolute Neutrophil Count 1.7 X10^3/uL (2.0-7.7); Basophil# 0.02 X10^3/uL; Basophil% 0.7 % (0-1); Eosinophil# 0.08 X10^3/uL; Eosinophils% 2.7 % (0-5); Hematocrit 27.6 % (37-47); Hemoglobin 8.7 g/dL (12.0-15.0); Lymphocyte # 0.92 X10^3/ul (4.0); Lymphocyte % 30.9 % (19-41); Mean Corp Hgb Conc 31.5 g/dL (32-36); Mean Corpuscular Hgb 30.4 pg (27.0-32.0); Mean Corpuscular Volume 96.5 fL (81-99); Mean Platelet Vol. 9.4 fl (6.2-12.0); Monocyte# 0.26 X10^3/uL; Monocyte% 8.7 % (0-10); NRBC Flagged by Analyzer 0 % (0-5); Neutrophil # 1.69 X10^3/uL (2.7-7.7); Neutrophil % 56.7 % (47-70); Platelet Count 105 K/mm3 (150-450); RBC Distribution Width SD 62.8 fl (35.1-43.9); Red Blood Count 2.86 M/mm3 (4.2-5.4)
[2020-02-13 06:58] LABS: Anion Gap 5 (5-15); BUN 18 mg/dL (7-18); BUN/Creat Ratio 19.8 RATIO (10-20); Calcium,Total 8.3 mg/dL (8.5-10.1); Chloride 110 mmol/L (98-107); Creatinine, Serum 0.91 mg/dL (0.55-1.02); EST Glomerular Filtration Rate 63 mL/min (>60); Est Glom Filt Rate - Afr Amer 76 mL/min (>60); Estimated Creatinine Clearance 49.74 ml/min; Glucose 156 mg/dL (74-106); Potassium 4.3 mmol/L (3.5-5.1); Sodium Level 142 mmol/L (136-145)
[2020-02-13 07:07] VITALS: PULSE 71
[2020-02-13 07:52] VITALS: BP 115/48; PULSE 70; RESP 16; TEMP 36.7; O2SAT 98
[2020-02-13] MEDS: Insulin Lispro 100 UNIT/ML INSULN.PEN 8 UNIT SC (07:59)
[2020-02-13 08:06] VITALS: O2SAT 98
[2020-02-13] MEDS: amLODIPine 5 MG Tablet PO (08:40)
[2020-02-13] MEDS: Ranolazine 500 MG Tablet 1000 MG PO (08:40)
[2020-02-13] MEDS: Isosorbide Mononitrate 30 MG Tablet 90 MG PO (08:40)
[2020-02-13] MEDS: Furosemide 40 MG/4 ML Vial IV (08:40)
[2020-02-13] MEDS: Folic Acid 1 MG Tablet PO (08:40)
[2020-02-13] MEDS: TICAGRELOR 90 MG TABLET PO (08:41)
[2020-02-13] MEDS: Losartan Potassium 50 MG Tablet PO (08:41)
[2020-02-13] MEDS: Multivitamins,Therapeutic Tablet 1 TABLET PO (08:41)
[2020-02-13] MEDS: Aspirin E.C. 81 MG Tablet PO (08:41)
[2020-02-13] MEDS: Carvedilol 3.125 MG TABLET PO (08:42)
[2020-02-13] MEDS: Ascorbic Acid 500 MG Tablet PO (08:42)
[2020-02-13] MEDS: 0.9% Saline Lock 10 ML Syringe IV (08:42)
--- NOTE | 2020-02-13 09:31 | DCINST_ITS ---
- Discharge Diagnoses Current Active Problems: Current Active and Chronic Problems (Last Updated 02/11/20 @ 08:[address] Massimo Dye MD) Acute respiratory failure with hypoxia and hypercapnia (Acute) Acute ijv-EG-oxxweialk myocardial infarction (Acute) Lactic acidosis (Acute) Acute on chronic CHF (Acute) You will use the following diet at home:: Calorie/Carbohydrate Controlled (specify 1200, 1400, etc) - 1800 doreen., Cardiac, Fluid restricted (specify 2000 mls, 1500 mls) - 1500 cc daily. Your food should be the consistency of: Regular Discharge Activity: Return to Normal Activity Weight Bearing Status: Weight bearing as tolerated Call your doctor if you observe: Fever of 101 or Higher, Shortness of breath, Dizziness, Fainting spells, Swelling in the ankles, Chest pain, Increased palpitations (irregular heartbeat), Uncontrolled pain Instructions: Heart Failure Allergies/Adverse Reactions: Allergies aripiprazole [From Abilify] Allergy (Intermediate, Verified 02/10/20 11:47) it over powered me lisinopril Allergy (Intermediate, Verified 02/10/20 11:47) Unknown atorvastatin calcium [From Lipitor] Adverse Reaction (Verified 02/10/20 11:47) Unknown rosiglitazone maleate [From Avandia] Adverse Reaction (Verified 02/10/20 11:47) Other Medications to take at Discharge Aspirin [Aspirin, Baby] 81 mg PO DAILY@0800 06/30/17 Nitroglycerin [Nitrostat] 0.4 mg SL PRN PRN 06/30/17 Multivitamins,Therapeutic [Multivitamin] 1 tab PO DAILY 02/01/18 ascorbic acid (vitamin C) 500 mg tablet 500 mg PO DAILY 09/13/18 Insulin Glargine,Hum.rec.anlog [Soha Bejarano] 34 unit SUBCUT DAILY 04/23/19 Potassium Chloride [K-Dur] 20 meq PO DAILY #30 tab 04/23/19 Carvedilol [Coreg] 3.125 mg PO BIDCM 06/24/19 Cholecalciferol (Vitamin D3) [Vitamin D3] 5,000 unit PO DAILY 06/24/19 Levothyroxine [Synthroid] 100 mcg PO DAILY 07/24/19 pravastatin 80 mg tablet 80 mg PO DAILY #30 tab 09/16/19 losartan 50 mg tablet 50 mg PO DAILY #30 tab 10/14/19 traMADol [Ultram] 50 mg PO BID PRN PRN 11/12/19 metolazone 2.5 mg tablet 2.5 mg PO WE #4 tab 01/05/20 Amlodipine Besylate [Norvasc] 5 mg PO DAILY 02/10/20 Folic Acid 1 mg PO DAILY 02/10/20 Furosemide 40 mg PO BID 02/10/20 Insulin Regular, Human [Humulin R] 8 unit SQ TIDCM 02/10/20 Isosorbide Mononitrate [Isosorbide Mononitrate ER] 30 mg PO DAILY 02/10/20 Isosorbide Mononitrate [Isosorbide Mononitrate ER] 60 mg PO DAILY 02/10/20 Ranolazine [Ranolazine ER] 1,000 mg PO BID 02/10/20 Ticagrelor [Brilinta] 90 mg PO BID 02/10/20 Primary Care Physician: Diana Cohen MD [Primary Care Provider] - Please follow up with your Primary Care Physician in: 1 week. Test Results: Test results from this visit will be discussed in further detail at your follow- up appointment, if applicable. Please Follow Up With: Yvan Malik MD When: 2-3 weeks.
--- NOTE | 2020-02-13 09:38 | CASEMGMT ---
BELINDA TRACEY NOTE: Pt being discharged. Call placed to [facility] and she was made aware. She states plan is for start of care tomorrow, Sat 02/13. RN ALEXY to room and pt was made aware. She denies having any other discharged needs, concerns, or questions. Pt made aware to ask for CM if anything does arise. She voices understanding and appreciation. Darin NANCE RN, CM
--- NOTE | 2020-02-13 09:51 | CASEMGMT ---
Patient is ready for discharge. SUAD called [facility] and let person on coverage line know that patient is being discharged with [facility] long term, PT, and OT as well as Palliative Care referral. SUAD also faxed d/c instructions to [facility]. SUAD faxed d/c information to [facility]. SUAD received a voice mail from Andie Widows patient's [facility] Associate Professor Of [employer] wondering about d/c. SUAD called her and notified her of patient's d/c, referral to [facility], and [facility]. She said patient is already active with [facility]. SUAD called [facility] and canceled referral. SUAD also called [facility] and notified them of patient's discharge. Plan: Home with resumption of [facility] services, [facility] long term, PT, and OT. She is already active with [facility]. Karina SERRATO MSW
--- NOTE | 2020-02-13 10:33 | PHA.DC.MR ---
Pharmacy Service has performed discharge medication reconciliation for this patient. No new medications prescribed on discharge. Medications reviewed are from previously reported home medications. The patient's discharge medication list was reviewed for discrepancies and discrepancies were resolved. Home Medications Aspirin [Aspirin, Baby] 81 mg PO DAILY@0800 06/30/17 Nitroglycerin [Nitrostat] 0.4 mg SL PRN PRN 06/30/17 Multivitamins,Therapeutic [Multivitamin] 1 tab PO DAILY 02/01/18 ascorbic acid (vitamin C) 500 mg tablet 500 mg PO DAILY 09/13/18 Insulin Glargine,Hum.rec.anlog [Soha Bejarano] 34 unit SUBCUT DAILY 04/23/19 Potassium Chloride [K-Dur] 20 meq PO DAILY #30 tab 04/23/19 Carvedilol [Coreg] 3.125 mg PO BIDCM 06/24/19 Cholecalciferol (Vitamin D3) [Vitamin D3] 5,000 unit PO DAILY 06/24/19 Levothyroxine [Synthroid] 100 mcg PO DAILY 07/24/19 pravastatin 80 mg tablet 80 mg PO DAILY #30 tab 09/16/19 losartan 50 mg tablet 50 mg PO DAILY #30 tab 10/14/19 traMADol [Ultram] 50 mg PO BID PRN PRN 11/12/19 metolazone 2.5 mg tablet 2.5 mg PO WE #4 tab 01/05/20 Amlodipine Besylate [Norvasc] 5 mg PO DAILY 02/10/20 Folic Acid 1 mg PO DAILY 02/10/20 Furosemide 40 mg PO BID 02/10/20 Insulin Regular, Human [Humulin R] 8 unit SQ TIDCM 02/10/20 Isosorbide Mononitrate [Isosorbide Mononitrate ER] 30 mg PO DAILY 02/10/20 Isosorbide Mononitrate [Isosorbide Mononitrate ER] 60 mg PO DAILY 02/10/20 Ranolazine [Ranolazine ER] 1,000 mg PO BID 02/10/20 Ticagrelor [Brilinta] 90 mg PO BID 02/10/20
--- NOTE | 2020-02-13 10:39 | DS.PCM_ITS ---
Discharge Date and Diagnosis - Problem List Patient Problems: Active and Suspected Problems (Last Updated 02/11/20 @ 08:[address] Massimo Dye MD) Acute respiratory failure with hypoxia and hypercapnia (Acute) Acute qbn-QE-skcbtesgx myocardial infarction (Acute) Lactic acidosis (Acute) Acute on chronic CHF (Acute) Date of Admission: 02/10/20 Date of Discharge: 02/13/20 - Primary Discharge Diagnosis Acute Problems: Active Problems (Last Updated 02/11/20 @ 08:[address] Massimo Dye MD) #1 acute hypoxic and hypercapnic respiratory failure. 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 #[address] elevation SD. #4 acute on chronic anemia. #5 lactic acidosis/metabolic acidosis. - Secondary Discharge Diagnosis Chronic Problems: Chronic Problems (Last Updated 02/11/20 @ 08:[address] Massimo Dye MD) Thrombocytopenia (Chronic) CAD (coronary artery disease) (Chronic) Essential hypertension (Chronic) Non-rheumatic aortic stenosis (Chronic) History of coronary artery stent placement (Chronic 06/25/19) PTCA-ostial/prox LCx @ [facility] 11/09/2017 PTCA-Cutting Balloon Atherectomy w/ placement of 2.5 x 20 mm Synergy Stent, Distal LM-into the Ostium of LAD Stented w/ 4.0 x 16 mm Synergy Stent 06/2017PTCA-OM 04/2017 PCI-LAD with a 2.75x38 Promus Premier drug eluting stent. 12/15/13 RAYMON of Right Posterior Lateral (Mid) wIth 3.0 x 2.8 Cypher, followed upstream with 3.0 x 8 Cypher, RAYMON of Right PDA (Ostial) with 25 x 28 Cypher 09/17/2007; 06/25/2019:LVEF: by LV gram 45-50 % Depressed Left Ventricular systolic function - Mild; Single vessel CAD of the ostial/proximal LCX in stent restenosis. Non obstructive coronary arteries of LM, LAD and RCA. Referred for immediate PCI to Dr Yao at [facility] given high risk nature and proximity to LM and LAD. Chronic systolic (congestive) heart failure (Chronic) Schizophrenia (Chronic) S/P PTCA (percutaneous transluminal coronary angioplasty) (Chronic ~11/09/17) PCI of ostial and mid LCX in-stent restenosis with laser atherectomy, balloon angioplasty per Dr. Rodriguez [facility] 08/20/18 PCI PTCA and laser atherectomy of proximal Circumflex 02/03/2018 PTCA-ostial/prox LCx @ [facility] 11/09/2017 PTCA-Cutting Balloon Atherectomy w/ placement of 2.5 x 20 mm Synergy Stent, Distal LM-into the Ostium of LAD Stented w/ 4.0 x 16 mm Synergy Stent 06/2017PTCA-OM 04/2017 PCI-LAD with a 2.75x38 Promus Premier drug eluting stent. 12/15/13 RAYMON of Right Posterior Lateral (Mid) wIth 3.0 x 2.8 Cypher, followed upstream with 3.0 x 8 Cypher, RAYMON of Right PDA (Ostial) with 25 x 28 Cypher 09/17/2007 History of coronary artery stent placement (Chronic) Atherosclerotic heart disease [place] coronary artery w/angina pectoris (Chronic) PCI of ostial and mid LCX in-stent restenosis with laser atherectomy, balloon angioplasty per Dr. [facility] 08/20/18 PCI PTCA and laser atherectomy of proximal Circumflex 02/03/2018 PTCA-ostail/prox LCx @ [facility] 11/09/2017 PTCA-Cutting Balloon Atherectomy w/ placement of 2.5 x 20 mm Synergy Stent, Distal LM-into the Ostium of LAD Stented w/ 4.0 x 16 mm Synergy Stent 06/2017PTCA-OM 04/2017 PCI-LAD with a 2.75x38 Promus Premier drug eluting stent. 12/15/13 RAYMON of Right Posterior Lateral (Mid) wIth 3.0 x 2.8 Cypher, followed upstream with 3.0 x 8 Cypher, RAYMON of Right PDA (Ostial) with 25 x 28 Cypher 09/17/2007 Pancytopenia (Chronic) Hypothyroidism (Chronic) Hyperlipidemia (Chronic) Diabetes mellitus, type II (Chronic) NSTEMI (non-ST elevated myocardial infarction) (Chronic ~09/16/17) Obesity (BMI 30.0-34.9) (Chronic) Hospital Course and Treatment Imaging Results: Clinical Impression(s) from Imaging Studies Brain CT 02/10/20 12:43 IMPRESSION: Chronic involutional changes without evidence of acute intracranial or calvarial abnormality. There is no acute interval change. Electronically Signed: Garrett Pineda DO at 16:58 EDT Tel [phone], Service support , Chest X-Ray 02/10/20 13:55 IMPRESSION: Interstitial CHF. Electronically Signed: Jasiel Luna, at 14:25 EDT , Service support , Chest X-Ray 02/10/20 15:19 IMPRESSION: The tip of the right central venous catheter is in the proximal portion of the superior vena cava. Stable interstitial CHF. Electronically Signed: Jasiel Luna, at 15:48 EDT , Service support , Dr. Malik, cardiology. Dr. Carr, critical care. Operations: None Procedures: 2-D Echocardiogram, EKG Summary of Care Provided: Patient seen and examined on the day of discharge and appeared to be stable to be discharged home. She denied any more shortness of breath. Denied chest pain or palpitation. Her vital signs are stable. This is an 79 years old female patient presented to the emergency room because of change in mental status, found to have acute hypoxic and hypercapnic respiratory failure secondary to acute on chronic congestive heart failure and also found to have acute ST elevation SD. #1 acute hypoxic and hypercapnic respiratory failure: Attributed to acute on chronic CHF. Initially, patient was admitted to the intensive care unit, started on IV diuresis with Lasix and p.o. Zaroxolyn. Initially, she needed BiPAP and with IV diuresis, symptoms improved and she was able to come off oxygen. Chest x-ray reviewed, revealed bilateral pulmonary vascular congestion. ABG showed pH of 7.07, PCO2 50 and PO2 of 200. COVID-19 PCR was negative. #2 acute on chronic CHF probably combined systolic and diastolic: Treated with IV Lasix, Zaroxolyn, Coreg, isosorbide mononitrate and losartan. 2D echocardiogram revealed ejection fraction 55%, stage I diastolic dysfunction, RVSP of 21 and mild aortic stenosis. With IV diuresis, symptoms improved, was able to come off oxygen. Patient discharged home on Lasix, Zaroxolyn, continued on her other previous home medications. #[address] depression SD: Treated medically with aspirin, Brilinta, statins, beta-blockers, losartan and Imdur. Cardiology consulted, stated that there is no need for interventions or cardiac catheterization. #4 lactic acidosis/metabolic acidosis: Secondary to acute respiratory failure and tissue hypoxia. No evidence of infection, no UTI or pneumonia. Lactic acid improved. Urine culture revealed strep agalactiae and Klebsiella pneumonia. This is consistent with asymptomatic bacteriuria and there was no indication for treatment. #5 Acute on chronic anemia/thrombocytopenia: Patient received 2 unit of packed RBCs lowest hemoglobin during this hospital stay was 7.9 g/dL. Baseline hemoglobin has been around 8 to 9 g/dL. There was no evidence of active bleeding. Upon discharge, hemoglobin was 8.7 g/dL. #6 CAD status post stents: continued on aspirin, Brilinta, statins, beta- blockers, losartan and nitrate. #7 type 2 diabetes mellitus: Continued on Lantus daily, Humalog 3 times daily. #8 hypertension: continued on Norvasc, Coreg mononitrate and losartan. #9 hypothyroidism: Continued on levothyroxine. Patient discharged home with home health in a stable medical condition, discharged on her same dose of p.o. Lasix which is 40 mg p.o. twice daily, continued on her other previous home medications without any changes, recommended follow-up with PCP in 1 week and follow-up with cardiology in 2 to 3 weeks. This note was generated with [employer] dictation software. It may contain incorrect words, spelling, and punctuation that were not noted in checking the note before signing. Patient Problems: Active and Suspected Problems (Last Updated 02/11/20 @ 08:[address] Massimo Dye MD) Acute respiratory failure with hypoxia and hypercapnia (Acute) Acute pul-QX-asuncfbig myocardial infarction (Acute) Lactic acidosis (Acute) Acute on chronic CHF (Acute) - Physical Exam Vitals/I&O's: Vital Signs Temp Pulse Resp BP Pulse Ox 98.0 F 70 16 115/48 L 98 02/13/20 07:52 02/13/20 07:52 02/13/20 07:52 02/13/20 07:52 02/13/20 08:06 Oxygen Flow Rate (L/min) 2 Oxygen Delivery Method Room Air Weight: 194 lb 7.163 oz Body Mass Index (BMI) 30.3 Finger Stick Blood Glucose 270 Intake and Output for Last 24 Hours 02/11/20 02/12/20 02/13/20 23:59 23:59 23:59 Intake Total 1240 / 1240 1470 / 1470 120 / 120 Output Total 1350 / 1350 800 / 800 Balance -110 / -110 670 / 670 120 / 120 General: Alert, Oriented x3, Cooperative, No apparent distress HEENT: Atraumatic, PERRLA, EOMI, Normocephalic Oral: Moist Mucosa, No Gingival or Mucosal Lesions/ Ulcerations Neck: Supple, No JVD, Negative Carotid Bruits, Trachea Midline, Thyroid Normal Size and Texture Lungs: Clear to auscultation, Normal air movement, No rhonchi, No wheeze, No rales, Diminished Cardiovascular: Regular rate, Regular Rhythm, Normal S1, Normal S2, PMI Normal Abdomen: Bowel Sounds Present, Soft, Non Tender, Non-Distended, No Hepato- splenomegaly Extremities: No clubbing, No cyanosis, Edema Skin: No rashes, No breakdown Lymphatic: No Cervical, Supraclavicular, or Inguinal Adenopathy Neurological: Cranial nerves II-XII grossly intact, Neuro grossly intact Psych/Mental Status: Normal Affect, Appropriate Microbiology Past 72 Hours 02/10/20 12:00 Blood Culture (Wb) - Anticubital Right Blood Culture - Preliminary No growth in 48 hours. 02/10/20 13:05 Blood Culture (Wb) - Left Hand Blood Culture - Preliminary No growth in 48 hours. 02/10/20 12:20 Urine Catheter - Catheter Urine Culture - Final Streptococcus agalactiae (B) Klebsiella pneumoniae sp pneum Laboratory Results 02/11/20 07:00: Crossmatch See Detail 02/12/20 11:11: POC Glucose 224 H 02/12/20 17:37: POC Glucose 123 H 02/12/20 22:20: POC Glucose 79 02/13/20 05:47: WBC 3.0 L, RBC 2.86 L, Hgb 8.7 L, Hct 27.6 L, MCV 96.5, MCH 30.4, MCHC 31.5 L, RDW Std Deviation 62.8 H, RDW Coeff of [place]ch[place] 18.0 H, Plt Count 105 L, MPV 9.4, Immature Gran % (Auto) 0.300, Neut % (Auto) 56.7, Lymph % (Auto) 30.9, [place] % (Auto) 8.7, Eos % (Auto) 2.7, Baso % (Auto) 0.7, Absolute Neuts (auto) 1.7 L, Absolute Lymphs (auto) 0.92, Nucleated RBC % 0 02/13/20 05:47: Sodium 142, Potassium 4.3, Chloride 110 H, Carbon Dioxide 27.0, Anion Gap 5, BUN 18, Creatinine 0.91, Estim Creat Clear Calc 49.74, Est GFR (MDRD) Af Amer 76, Est GFR (MDRD) Non-Af 63, BUN/Creatinine Ratio 19.8, Glucose 156 H, Calcium 8.3 L Current Medications Acetaminophen (Tylenol) 650 mg PO Q6H PRN PRN PRN Reason: Pain Score 1-10/Temp > 100.7 F Amlodipine Besylate (Norvasc) 5 mg PO DAILY [facility] Last Admin: 02/13/20 08:40 Dose: 5 mg Documented by: Ascorbic Acid (Vitamin C) 500 mg PO DAILY [facility] Last Admin: 02/13/20 08:42 Dose: 500 mg Documented by: Aspirin (Ecotrin) 81 mg PO DAILY@0800 [facility] Last Admin: 02/13/20 08:41 Dose: 81 mg Documented by: [facility] Admin: 02/13/20 08:42 Dose: 3.125 mg Documented by: Cholecalciferol (Vitamin D (25mcg)) 5,000 unit PO DAILY [facility] Last Admin: 02/13/20 08:40 Dose: 5,000 unit Documented by: Dextrose (D50w Syringe) 0 gm IV X1 PRN; Protocol PRN Reason: Hypoglycemia Folic [facility] ([facility] Acid) [facility] Last Admin: 02/13/20 08:40 Dose: 1 mg Documented by: Furosemide (Lasix) 40 mg IV BID@1000,1800 [facility] Last Admin: 02/13/20 08:40 Dose: 40 mg Documented by: Glucagon () 1 mg IM .X1 PRN PRN Reason: Hypoglycemia Sodium Chloride () 500 mls @ 15 mls/hr IV PRN PRN PRN Reason: Blood Transfusion Insulin Glargine (Lantus (Bk)) 34 units SC DAILY [facility] Last Admin: 02/13/20 07:59 Dose: 34 u Documented by: Insulin Human Lispro (Humalog Kwikpen (Bk)) 8 unit SC TIDCM [facility] Last Admin: 02/13/20 07:59 Dose: 8 u Documented by: Insulin Human Lispro (Humalog Kwikpen ([facility])) 0 unit SC TIDAC [facility]; Protocol Last Admin: 02/13/20 08:42 Dose: Not Given Documented by: Isosorbide Mononitrate (Imdur) 90 mg PO DAILY [facility] Last Admin: 02/13/20 08:40 Dose: 90 mg Documented by: Isosorbide Mononitrate (Imdur) 60 mg PO DAILY@2199 [facility] Last Admin: 02/12/20 22:15 Dose: 60 mg Documented by: Levothyroxine Sodium (Synthroid) 100 mcg PO DAILY@0600 [facility] Last Admin: 02/13/20 05:47 Dose: 100 mcg Documented by: Losartan Potassium (Cozaar) 50 mg PO DAILY [facility] Last Admin: 02/13/20 08:41 Dose: 50 mg Documented by: Metolazone (Zaroxolyn) 2.5 mg PO We@1000 [facility] Last Admin: 02/11/20 13:28 Dose: Not Given Documented by: Multivitamins (Multivitamin) 1 tablet PO DAILY@0800 [facility] Last Admin: 02/13/20 08:41 Dose: 1 tablet Documented by: Nitroglycerin (Nitrostat) 0.4 mg SUBLINGUAL PRN PRN Ondansetron HCl (Zofran) 4 mg IV Q8H PRN PRN PRN Reason: NAUSEA/VOMITING Potassium Chloride (K-Dur) 40 meq PO BIDCM [facility] Last Admin: 02/13/20 08:42 Dose: 40 meq Documented by: Pravastatin Sodium (Pravachol) 80 mg PO DAILY@2200 [facility] Last Admin: 02/12/20 22:15 Dose: 80 mg Documented by: Ranolazine (Ranexa) 1,000 mg PO BID [facility] Last Admin: 02/13/20 08:40 Dose: 1,000 mg Documented by: Sodium Chloride () 10 - 40 ml IV UD PRN PRN Reason: SALINE FLUSH Last Admin: 02/13/20 08:42 Dose: 10 ml Documented by: Ticagrelor (Brilinta) 90 mg PO BID [facility] Last Admin: 02/13/20 08:41 Dose: 90 mg Documented by: Tramadol HCl (Ultram) 50 mg PO BID PRN PRN PRN Reason: Pain 1-05/15 or Fever Last Admin: 02/11/20 18:59 Dose: 50 mg Documented by: Discharge Activity: Return to Normal Activity Weight Bearing Status: Weight bearing as tolerated Call your doctor if you observe: Fever of 101 or Higher, Shortness of breath, Dizziness, Fainting spells, Swelling in the ankles, Chest pain, Increased palpitations (irregular heartbeat), Uncontrolled pain Home Medications: Medications to take at Discharge Aspirin [Aspirin, Baby] 81 mg PO DAILY@0800 06/30/17 Nitroglycerin [Nitrostat] 0.4 mg SL PRN PRN 06/30/17 Multivitamins,Therapeutic [Multivitamin] 1 tab PO DAILY 02/01/18 ascorbic acid (vitamin C) 500 mg tablet 500 mg PO DAILY 09/13/18 Insulin Glargine,Hum.rec.anlog [Soha Bejarano] 34 unit SUBCUT DAILY 04/23/19 Potassium Chloride [K-Dur] 20 meq PO DAILY #30 tab 04/23/19 Carvedilol [Coreg] 3.125 mg PO BIDCM 06/24/19 Cholecalciferol (Vitamin D3) [Vitamin D3] 5,000 unit PO DAILY 06/24/19 Levothyroxine [Synthroid] 100 mcg PO DAILY 07/24/19 pravastatin 80 mg tablet 80 mg PO DAILY #30 tab 09/16/19 losartan 50 mg tablet 50 mg PO DAILY #30 tab 10/14/19 traMADol [Ultram] 50 mg PO BID PRN PRN 11/12/19 metolazone 2.5 mg tablet 2.5 mg PO WE #4 tab 01/05/20 Amlodipine Besylate [Norvasc] 5 mg PO DAILY 02/10/20 Folic Acid 1 mg PO DAILY 02/10/20 Furosemide 40 mg PO BID 02/10/20 Insulin Regular, Human [Humulin R] 8 unit SQ TIDCM 02/10/20 Isosorbide Mononitrate [Isosorbide Mononitrate ER] 30 mg PO DAILY 02/10/20 Isosorbide Mononitrate [Isosorbide Mononitrate ER] 60 mg PO DAILY 02/10/20 Ranolazine [Ranolazine ER] 1,000 mg PO BID 02/10/20 Ticagrelor [Brilinta] 90 mg PO BID 02/10/20 Primary Care Physician: Diana Cohen MD [Primary Care Provider] - Please follow up with your Primary Care Physician in: 1 week. Please Follow Up With: Yvan Malik MD When: 2-3 weeks. Please Follow Up With: Diana Cohen MD Patient Instructions: Heart Failure Disposition: Home with Home Health Minutes spent on discharge:: 33 Patient Condition:: Stable Medical Necessity - Tobacco Use Smoking Status: Never smoker Meaningful Use Info Meaningful Use Diagnoses (Choose all that apply): CHF - CHF CAROL/ARB ordered at discharge?: Yes Documented LVEF (%): 55 Inpatient E&M: 28610 Disch Hosp
[2020-02-13 12:00] VITALS: BP 96/45; PULSE 68; RESP 18; TEMP 36.8; O2SAT 99
[2020-02-13 12:01] LABS: Bedside Glucose 136 mg/dL (70-110)
[2020-02-13 13:15] LABS: Bedside Glucose 120 mg/dL (70-110)
--- NOTE | 2020-02-16 15:43 | CASEMGMT ---
BELINDA TRACEY Discharge Follow-up Phone Call: MARLYN: Darlin Strata: 3 Call Date: 02/16/20 Discharge Date: 02/13/20 Time of Call: 1540 Duration: 3 min Admitting Diagnosis: Acute CHF, resp failure, encephalopathy, UTI BELINDA TRACEY completed follow-up phone call after recent hospitalization. Patient states that she is doing better. [facility] has been out to see the patient. Patient is scheduled to see her PCP. Patient had no questions regarding discharge instructions. Patient had no further questions or concerns.
== END 2020-02-13 12:28 | disposition home health service (06) | DRG 280 ==
LOC: ED 16:00 → ICU 16:20 → PCU 02-11 15:47
PROVIDERS: Internal Medicine Critical Care Medicine; Emergency Provider Emergency Medicine; PCP Internal Medicine; Visit Provider Hospitalist
DX: I11.0 Hypertensive heart disease with heart failure (principal); J96.01 Acute respiratory failure with hypoxia; I21.A1 Myocardial infarction type 2; J96.02 Acute respiratory failure with hypercapnia; E87.2 Acidosis; D61.818 Other pancytopenia; I50.43 Acute on chronic combined systolic (congestive) and diastolic (congestive) heart failure; D64.9 Anemia, unspecified; I35.0 Nonrheumatic aortic (valve) stenosis; F20.9 Schizophrenia, unspecified; E03.9 Hypothyroidism, unspecified; E78.5 Hyperlipidemia, unspecified; E11.9 Type 2 diabetes mellitus without complications; I25.118 Atherosclerotic heart disease of native coronary artery with other forms of angina pectoris; I34.0 Nonrheumatic mitral (valve) insufficiency; I36.1 Nonrheumatic tricuspid (valve) insufficiency; I25.2 Old myocardial infarction; E87.6 Hypokalemia; E66.9 Obesity, unspecified; Z68.31 Body mass index [BMI] 31.0-31.9, adult; Z79.82 Long term (current) use of aspirin; Z79.4 Long term (current) use of insulin; Z79.890 Hormone replacement therapy; Z79.02 Long term (current) use of antithrombotics/antiplatelets; Z79.899 Other long term (current) drug therapy
CPT/HCPCS: 36415; 36600; 70450; 71045; 80048; 80053; 81001; 82803; 82962; 83605; 83735; 83880; 84484; 85025; 85610; 85730; 86850; 86900; 86901; 86920; 86922; 87040; 87077; 87086; 87088; 87186; 87635; 93005; 93306; 94002; 94003; 94640; 97162; 97166; 97802; 99285; G2023; J7030; P9016; P9040; P9612; Q9957; A4216; C1751; J1940; J2405; U0003

== ENCOUNTER 2020-03-26 10:50 | Inpatient (IN) | payer MEDICARE, MEDICAID, SELFPAY ==
[2020-03-05 08:14] VITALS: BMI 33.2
[2020-03-26] VITALS (17 sets, daily range): BP systolic 124–166; BP diastolic 59–149; PULSE 78–123; RESP 12–32; TEMP 35.7–36.9; O2SAT 92–969; BMI 33.0; BMI 33.1
--- NOTE | 2020-03-26 10:55 | EKG12_ITS ---
Test Reason : REPEAT Blood Pressure : / mmHG Vent. Rate : 090 BPM Atrial Rate : 090 BPM P-R Int : 170 ms QRS Dur : 092 ms QT Int : 400 ms P-R-T Axes : 084 -06 -70 degrees QTc Int : 489 ms Normal sinus rhythm Marked ST abnormality, possible inferior subendocardial injury Marked ST abnormality, possible anterior subendocardial injury Abnormal ECG Confirmed by SEVERINO CHEW, LIN ([id number]), news editor LAURIE MCCLELLAND ([id number]) on 04/02/2020 11:22:18 A M Referred By: CECILLE Confirmed By:RICHIE HAQ MD
--- NOTE | 2020-03-26 10:55 | RAD_ITS ---
STUDY: X-RAY CHEST REASON FOR EXAM: Female, 79 years old. SOB, DYSPNEA TECHNIQUE: Single AP portable view of the chest. COMPARISON: None. FINDINGS: There is diffuse interstitial thickening in both lungs suggesting pulmonary edema. Ill-defined subpleural groundglass opacities are also seen more prominent in the lung bases , may represent atypical pneumonia or viral pneumonia (COVID-19 ?). There is small left pleural effusion. Normal size heart. Normal mediastinum and rell. Normal visualized pulmonary arteries. Normal visualized aortic arch and descending thoracic aorta. Normal visualized thoracic spine. There is degenerative osteoarthritis of the bilateral shoulders. There is no demonstrated abnormality of the visualized soft tissue structures of the upper abdomen. RAD/Chest 1 View (Portable) IMPRESSION: Congestive heart failure. Possible superimposed bilateral pneumonia. Electronically Signed: Chika Matta, at 11:23 EDT Tel , Service support ,
--- NOTE | 2020-03-26 11:03 | ED.DCSUM_ITS ---
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 Patient states it started up this morning. She states that her legs are about as swollen as they normally are. She states that she feels chest heaviness. Patient has a history of congestive heart failure with ejection fraction of 55%. She is non- correctable coronary artery disease. She is followed with Dr. Malik. She was admitted last in February 2020. She had an echocardiogram at that time. She does not recall what her weight normally is. Past Medical History - Allergies and Home Meds Allergies/Adverse Reactions: Allergies aripiprazole [From Abilify] Allergy (Intermediate, Verified 03/05/20 10:05) it over powered me lisinopril Allergy (Intermediate, Verified 03/05/20 10:05) Unknown atorvastatin calcium [From Lipitor] Adverse Reaction (Verified 03/05/20 10:05) Unknown rosiglitazone maleate [From Avandia] Adverse Reaction (Verified 03/05/20 10:05) Other Surgical History: angioplasty, appendectomy, cholecystectomy, tonsillectomy, - - Spinal fusion Smoking Status: Never smoker - Family History Maternal Family History: Family History (Last Reviewed 02/10/20 @ 16:[address] Marty Castillo DO) Mother CAD (coronary artery disease) Father CAD (coronary artery disease) Family History: Reports: Heart Disease - CAD, - - Schizophrenia Paternal Family History: Family History (Last Reviewed 02/10/20 @ 16:[address] Marty Castillo DO) Mother CAD (coronary artery disease) Father CAD (coronary artery disease) Family History: Reports: Heart Disease Review of Systems General: Denies: Chills, Fever, Sweats Eyes: Denies: Visual changes - bilaterally, Diplopia ENT: Denies: Rhinorrhea, Sore throat Cardiovascular: Reports: Chest pain, Palpitations, Heart racing Respiratory: Reports: Dyspnea, Dyspnea on exertion, Orthopnea. Denies: Cough Gastrointestinal: Denies: Abdominal pain, Nausea, Vomiting, Diarrhea, Melena, Hematochezia Genitourinary: Denies: Dysuria, Hematuria, Frequency Musculoskeletal: Reports: Swelling. Denies: Back pain, Extremity Pain Skin: Denies: Rash, Wounds Neurological: Denies: Headache, Weakness, Numbness Physical Exam Vital Signs/Narrative: Vital Signs Temp Pulse Resp BP Pulse Ox 03/26/20 10:52 97.6 F L 115 H 32 H 166/149 H 92 Inital Vital Signs reviewed: Yes General: Well nourished, Well developed, Acute Distress Head: Normocephalic, Atraumatic Eyes: Perrl, EOMI ENT: Moist mucous membranes, No rhinorrhea Neck: Supple, Nontender Cardiovascular: Regular rate, No murmurs, Tachycardia Respiratory: Chest nontender, Rales, - - Patient is in obvious respiratory distress Abdomen: Soft, Nontender, Nondistended, Normal bowel sounds Back: Nontender, Normal Inspection Extremities: Nontender, Edema - 2+ pitting edema of the lower extremity Skin: Normal color, No rash Neurological: Alert, Oriented x3, Cranial nerves II-XII grossly intact, Normal Strength, Normal Sensation Psychological: Normal affect, Normal Mood Diagnostic/Tx/Re-eval Clinical Impression(s) from Imaging Studies Chest X-Ray 03/26/20 10:55 IMPRESSION: Congestive heart failure. Possible superimposed bilateral pneumonia. Electronically Signed: Chika Matta, at 11:23 EDT Tel , Service support , Laboratory Last Values WBC 9.9 K/mm3 (4.4-11.0) 03/26/20 11:15 RBC 2.99 M/mm3 (4.2-5.4) L 03/26/20 11:15 Hgb 9.2 g/dL (12.0-15.0) L 03/26/20 11:15 Hct 29.5 % (37-47) L 03/26/20 11:15 MCV 98.7 fL (81-99) 03/26/20 11:15 MCH 30.8 pg (27.0-32.0) 03/26/20 11:15 MCHC 31.2 g/dL (32-36) L 03/26/20 11:15 RDW Std Deviation 55.7 fl (35.1-43.9) H 03/26/20 11:15 RDW Coeff of Conchis 15.5 % (11.6-14.6) H 03/26/20 11:15 Plt Count 235 K/mm3 (150-450) 03/26/20 11:15 MPV 10.3 fl (6.2-12.0) 03/26/20 11:15 Immature Gran % (Auto) 0.300 % (0.0-0.9) 03/26/20 11:15 Neut % (Auto) 62.3 % (47-70) 03/26/20 11:15 Lymph % (Auto) 31.1 % (19-41) 03/26/20 11:15 Stearns % (Auto) 4.9 % (0-10) 03/26/20 11:15 Eos % (Auto) 0.9 % (0-5) 03/26/20 11:15 Baso % (Auto) 0.5 % (0-1) 03/26/20 11:15 Absolute Neuts (auto) 6.2 X10^3/uL (2.0-7.7) 03/26/20 11:15 Absolute Lymphs (auto) 3.09 X10^3/uL (0.83-4.51) 03/26/20 11:15 Nucleated RBC % 0 % (0-5) 03/26/20 11:15 PT 14.4 SECONDS (11.7-14.9) 03/26/20 11:10 INR 1.2 03/26/20 11:10 APTT 24.3 Seconds (24.1-36.2) 03/26/20 11:10 Sodium 137 mmol/L (136-145) 03/26/20 11:15 Potassium 4.2 mmol/L (3.5-5.1) 03/26/20 11:15 Chloride 102 mmol/L (98-107) 03/26/20 11:15 Carbon Dioxide 26.0 mmol/L (21.0-32.0) 03/26/20 11:15 Anion Gap 9 (5-15) 03/26/20 11:15 BUN 23 mg/dL (7-18) H 03/26/20 11:15 Creatinine 1.21 mg/dL (0.55-1.02) H 03/26/20 11:15 Estim Creat Clear Calc 54.97 ml/min 03/26/20 11:15 Est GFR (MDRD) Af Amer 55 mL/min (>60) L 03/26/20 11:15 Est GFR (MDRD) Non-Af 45 mL/min (>60) L 03/26/20 11:15 BUN/Creatinine Ratio 19.0 RATIO (10-20) 03/26/20 11:15 Glucose 429 mg/dL (74-106) H 03/26/20 11:15 Lactic Acid 7.3 mmol/L (0.4-1.9) H* 03/26/20 10:55 Calcium 9.1 mg/dL (8.5-10.1) 03/26/20 11:15 Total Bilirubin 1.00 mg/dL (0.20-1.00) 03/26/20 11:15 AST 30 U/L (15-37) 03/26/20 11:15 ALT 31 U/L (13-56) 03/26/20 11:15 Alkaline Phosphatase 94 U/L (45-117) 03/26/20 11:15 Troponin I 1.210 ng/mL (<0.045) H* 03/26/20 11:15 B-Natriuretic Peptide 738.3 pg/mL (0-100) H 03/26/20 11:15 Total Protein 7.5 g/dL (6.4-8.2) 03/26/20 11:15 Albumin 3.6 g/dL (3.2-5.0) 03/26/20 11:15 Globulin 3.9 g/dL (2.2-4.2) 03/26/20 11:15 Albumin/Globulin Ratio 0.9 RATIO (0.9-2.4) 03/26/20 11:15 Urine Color Yellow (Yellow) 03/26/20 11:25 Urine Clarity Sl. Cloudy (Clear) 03/26/20 11:25 Urine pH 5.0 (5.0 - 8.0) 03/26/20 11:25 Ur Specific [place] 1.020 (1.002-1.030) 03/26/20 11:25 Urine Protein 100 mg/dl (Negative) H 03/26/20 11:25 Urine Glucose (UA) 1000 mg/dl (Normal) H 03/26/20 11:25 Urine Ketones 15 mg/dl (Negative) H 03/26/20 11:25 Urine Occult Blood Negative /ul (Negative) 03/26/20 11:25 Urine Nitrite Negative (Negative) 03/26/20 11:25 Urine Bilirubin Negative mg/dL (Negative) 03/26/20 11:25 Urine Urobilinogen Normal mg/dl (Normal) 03/26/20 11:25 Ur Leukocyte Esterase 25 /ul (Negative) H 03/26/20 11:25 Urine RBC 0 SEEN /hpf (0-5) 03/26/20 11:25 Urine WBC 0-5 SEEN /hpf (0-5) 03/26/20 11:25 Ur Squamous Epith Cells 0-5 SEEN /hpf (5-10) 03/26/20 11:25 Urine Bacteria RARE /hpf (None Seen) 03/26/20 11:25 Urine Mucus 0 SEEN /hpf (<or=2+) 03/26/20 11:25 - EKG Initial EKG Interpretation: Sinus Tachycardia - EKG demonstrates a sinus tachycardic rhythm at a rate of 115. There is some noted lateral ST depression. Follow-up EKG Interpretation: Sinus Rhythm - Follow-up EKG demonstrates a normal sinus rhythm at a rate of 90. The lateral ST segments appear improved. - Medical Decision Making Patient was immediately placed on BiPAP and her breathing significantly improved. He was resting comfortably on repeat examination. Chest x-ray shows CHF. Given how sudden her symptoms began I doubt that this is COVID-19 or pneumonia. She does not have a fever and has a normal white blood cell count. Her hemoglobin is supposed to be kept above 10 today is at 9. Her troponin is elevated but she does not have ST elevation on EKG. Her lactic acid is significantly elevated which I believe is due to hypoxemia and not sepsis. Case will be discussed with cardiology and plan will be admission into the ICU. Patient wishes to be a full code. - Critical Care Time Critical care time (excluding procedures): 30-74 minutes - 35 min, Discussing w/Patient &/or Family/Dry Transfer Worker, Discussing w/Consultants, Arranging Admission or Transfer, Performing Direct Patient Care at Bedside ED Disposition - Plan for ED Patient: Disposition: Acute Care Hospital [facility] Diagnosis: Acute on chronic CHF, Acute respiratory failure with hypoxia, NSTEMI (non-ST elevated myocardial infarction)
[2020-03-26 11:23] LABS: Absolute Lymphocyte Count 3.09 X10^3/uL (0.83-4.51); Absolute Neutrophil Count 6.2 X10^3/uL (2.0-7.7); Basophil# 0.05 X10^3/uL; Basophil% 0.5 % (0-1); Eosinophil# 0.09 X10^3/uL; Eosinophils% 0.9 % (0-5); Hematocrit 29.5 % (37-47); Hemoglobin 9.2 g/dL (12.0-15.0); Lymphocyte # 3.09 X10^3/ul (4.0); Lymphocyte % 31.1 % (19-41); Mean Corp Hgb Conc 31.2 g/dL (32-36); Mean Corpuscular Hgb 30.8 pg (27.0-32.0); Mean Corpuscular Volume 98.7 fL (81-99); Mean Platelet Vol. 10.3 fl (6.2-12.0); Monocyte# 0.49 X10^3/uL; Monocyte% 4.9 % (0-10); NRBC Flagged by Analyzer 0 % (0-5); Neutrophil # 6.19 X10^3/uL (2.7-7.7); Neutrophil % 62.3 % (47-70); Platelet Count 235 K/mm3 (150-450); RBC Distribution Width CV 15.5 % (11.6-14.6); RBC Distribution Width SD 55.7 fl (35.1-43.9); Red Blood Count 2.99 M/mm3 (4.2-5.4); White Blood Count 9.9 K/mm3 (4.4-11.0)
[2020-03-26 11:30] LABS: International Normalized Ratio 1.2; Partial Thromboplast Time 24.3 Seconds (24.1-36.2); Prothrombin Time (Protime)PT. 14.4 SECONDS (11.7-14.9)
[2020-03-26 11:33] LABS: Color, Urine Yellow (Yellow); Glucose, Dipstick 1000 mg/dl (Normal); Ketone-Dipstick 15 mg/dl (Negative); Leukocyte Esterase-Dipstick 25 /ul (Negative); Mucous, Urine 0 SEEN /hpf (<or=2+); Nitrite-Dipstick Negative (Negative); Occult Blood-Urine Negative /ul (Negative); Protein-Dipstick 100 mg/dl (Negative); Red Blood Cells-Urine 0 SEEN /hpf (0-5); Urine Bilirubin Dipstick Negative (Negative); Urine Clarity Sl. Cloudy (Clear); Urine Urobilinogen Normal (Normal)
[2020-03-26] MEDS: Furosemide 100 MG/10 ML Vial 80 MG IV (11:35)
[2020-03-26 11:40] LABS: ALB/GLOB Ratio 0.9 RATIO (0.9-2.4); AST(SGOT) 30 U/L (15-37); Alanine Aminotransfer ALT/SGPT 31 U/L (13-56); Albumin, Serum 3.6 g/dL (3.2-5.0); Alkaline Phosphatase 94 U/L (45-117); Anion Gap 9 (5-15); BUN 23 mg/dL (7-18); Calcium,Total 9.1 mg/dL (8.5-10.1); Chloride 102 mmol/L (98-107); Creatinine, Serum 1.21 mg/dL (0.55-1.02); EST Glomerular Filtration Rate 45 mL/min (>60); Est Glom Filt Rate - Afr Amer 55 mL/min (>60); Estimated Creatinine Clearance 54.97 ml/min; Globulin 3.9 g/dL (2.2-4.2); Glucose 429 mg/dL (74-106); Potassium 4.2 mmol/L (3.5-5.1); Protein, Total 7.5 g/dL (6.4-8.2); Sodium Level 137 mmol/L (136-145)
[2020-03-26 11:41] LABS: Bacteria RARE /hpf (None Seen); Squamous Epithelial Cells - UA 0-5 SEEN /hpf (5-10); White Blood Cells 0-5 SEEN /hpf (0-5)
[2020-03-26 11:45] LABS: BNP,B-Type NATRIURETIC PEPTIDE 738.3 pg/mL (0-100)
[2020-03-26 11:53] LABS: Lactic Acid 7.3 mmol/L (0.4-1.9)
--- NOTE | 2020-03-26 11:53 | ED.RN ---
lab called lactic of 7.3, dr aware. no further order
--- NOTE | 2020-03-26 12:09 | EKG12_ITS ---
Test Reason : SOB Blood Pressure : / mmHG Vent. Rate : 115 BPM Atrial Rate : 115 BPM P-R Int : 138 ms QRS Dur : 132 ms QT Int : 356 ms P-R-T Axes : 067 -44 120 degrees QTc Int : 492 ms Sinus tachycardia Left axis deviation Left ventricular hypertrophy with QRS widening and repolarization abnormality Abnormal ECG Confirmed by SEVERINO CHEW, LIN ([id number]), order editor LAURIE MCCLELLAND ([id number]) on 04/02/2020 11:21:09 A M Referred By: CECILLE Confirmed By:RICHIE HAQ MD
[2020-03-26] MEDS: Aspirin 325 MG Tablet PO (12:13)
--- NOTE | 2020-03-26 12:30 | ED.RN ---
pt requests no family to be called
[2020-03-26 15:28] LABS: Reflex Lactate? Y
[2020-03-26 16:18] LABS: Lactic Acid 2.6 mmol/L (0.4-1.9)
--- NOTE | 2020-03-26 16:29 | CASEMGMT ---
Social Work Pt know to this SW. Phone call to [employer] staff and notified of admission today. Pt is current with [facility] and receives 7 meals per week through [employer] and 7 hours a week of aid through [facility]. SW will continue to follow for further needs. KARIN Ybarra
--- NOTE | 2020-03-26 16:43 | PCM.CONS.C ---
Reason for Consult Date of Consultation: 03/26/20 History of Present Illness: 79-year-old female with past medical history of coronary artery disease status post PCI multiple times with severe diffuse disease in the distal LAD and multiple episodes of restenosis in the ostial circumflex stent that was eventually felt to be better managed by medical therapy in June 2019 coming to [facility] for shortness of breath and leg edema. Patient does not a great historian. She does admit to chest heaviness as well. About 1 month back she was in with non-STEMI and at that time she had an echo which showed preserved EF. She was managed medically and was discharged home. Today as well her troponin has gone up. Review of systems: All systems reviewed. All else is negative except that in HPI Past Medical History Allergies/Adverse Reactions: Allergies aripiprazole [From Abilify] Allergy (Intermediate, Verified 03/05/20 10:05) it over powered me lisinopril Allergy (Intermediate, Verified 03/05/20 10:05) Unknown atorvastatin calcium [From Lipitor] Adverse Reaction (Verified 03/05/20 10:05) Unknown rosiglitazone maleate [From Avandia] Adverse Reaction (Verified 03/05/20 10:05) Other Home Medications: Ambulatory Orders Medication Instructions Recorded Aspirin [Aspirin, Baby] 81 mg PO DAILY@0800 06/30/17 Nitroglycerin [Nitrostat] 0.4 mg SL PRN PRN 06/30/17 Multivitamins,Therapeutic 1 tab PO DAILY 02/01/18 [Multivitamin] ascorbic acid (vitamin C) 500 mg 500 mg PO DAILY 09/13/18 tablet Insulin Glargine,Hum.rec.anlog 34 unit SUBCUT DAILY 04/23/19 [Soha Bejarano] Carvedilol [Coreg] 3.125 mg PO BIDCM 06/24/19 Cholecalciferol (Vitamin D3) 5,000 unit PO DAILY 06/24/19 [Vitamin D3] Levothyroxine [Synthroid] 100 mcg PO DAILY 07/24/19 pravastatin 80 mg tablet 80 mg PO DAILY #30 tab 09/16/19 losartan 50 mg tablet 50 mg PO DAILY #30 tab 10/14/19 traMADol [Ultram] 50 mg PO BID PRN PRN 11/12/19 Amlodipine Besylate [Norvasc] 5 mg PO DAILY 02/10/20 Folic Acid 1 mg PO DAILY 02/10/20 Furosemide 40 mg PO BID 02/10/20 Insulin Regular, Human [Humulin R] 8 unit SQ TIDCM 02/10/20 Isosorbide Mononitrate [Isosorbide 30 mg PO DAILY 02/10/20 Mononitrate ER] Isosorbide Mononitrate [Isosorbide 60 mg PO DAILY 02/10/20 Mononitrate ER] Ranolazine [Ranolazine ER] 1,000 mg PO BID 02/10/20 Ticagrelor [Brilinta] 90 mg PO BID 02/10/20 metolazone 2.5 mg tablet 2.5 mg PO .COMPLEX #8 tab 02/19/20 potassium chloride 20 mEq 20 meq PO DAILY 03/05/20 tablet,extended release Past Medical History (Chronic Problems): Chronic Problems (Last Updated 02/11/20 @ 08:[address] Massimo Dye MD) Thrombocytopenia (Chronic) CAD (coronary artery disease) (Chronic) Essential hypertension (Chronic) Non-rheumatic aortic stenosis (Chronic) History of coronary artery stent placement (Chronic 06/25/19) PTCA-ostial/prox LCx @ [facility] 11/09/2017 PTCA-Cutting Balloon Atherectomy w/ placement of 2.5 x 20 mm Synergy Stent, Distal LM-into the Ostium of LAD Stented w/ 4.0 x 16 mm Synergy Stent 06/2017PTCA-OM 04/2017 PCI-LAD with a 2.75x38 Promus Premier drug eluting stent. 12/15/13 RAYMON of Right Posterior Lateral (Mid) wIth 3.0 x 2.8 Cypher, followed upstream with 3.0 x 8 Cypher, RAYMON of Right PDA (Ostial) with 25 x 28 Cypher 09/17/2007; 06/25/2019:LVEF: by LV gram 45-50 % Depressed Left Ventricular systolic function - Mild; Single vessel CAD of the ostial/proximal LCX in stent restenosis. Non obstructive coronary arteries of LM, LAD and RCA. Referred for immediate PCI to Dr Yoa at [facility] given high risk nature and proximity to LM and LAD. Chronic systolic (congestive) heart failure (Chronic) Schizophrenia (Chronic) S/P PTCA (percutaneous transluminal coronary angioplasty) (Chronic ~04/06/18) PCI of ostial and mid LCX in-stent restenosis with laser atherectomy, balloon angioplasty per Dr. Rodriguez [facility] 08/20/18 PCI PTCA and laser atherectomy of proximal Circumflex 02/03/2018 PTCA-ostial/prox LCx @ [facility] 11/09/2017 PTCA-Cutting Balloon Atherectomy w/ placement of 2.5 x 20 mm Synergy Stent, Distal LM-into the Ostium of LAD Stented w/ 4.0 x 16 mm Synergy Stent 06/2017PTCA- 04/2017 PCI-LAD with a 2.75x38 Promus Premier drug eluting stent. 12/15/13 RAYMON of Right Posterior Lateral (Mid) wIth 3.0 x 2.8 Cypher, followed upstream with 3.0 x 8 Cypher, RAYMON of Right PDA (Ostial) with 25 x 28 Cypher 09/17/2007 History of coronary artery stent placement (Chronic) Atherosclerotic heart disease [place] coronary artery w/angina pectoris (Chronic) PCI of ostial and mid LCX in-stent restenosis with laser atherectomy, balloon angioplasty per Dr. Rodriguez [facility] 08/20/18 PCI PTCA and laser atherectomy of proximal Circumflex 02/03/2018 PTCA-ostail/prox LCx @ [facility] 11/09/2017 PTCA-Cutting Balloon Atherectomy w/ placement of 2.5 x 20 mm Synergy Stent, Distal LM-into the Ostium of LAD Stented w/ 4.0 x 16 mm Synergy Stent 06/2017PTCA- 04/2017 PCI-LAD with a 2.75x38 Promus Premier drug eluting stent. 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 Marty Castillo DO) Mother CAD (coronary artery disease) Father CAD (coronary artery disease) History Items: Heart Disease - CAD, - - Schizophrenia Paternal Family History: Family History (Last Reviewed 02/10/20 @ 16:[address] Marty Castillo DO) Mother CAD (coronary artery disease) Father CAD (coronary artery disease) History Items: Heart Disease Smoking Status: Never smoker Objective: Vital Signs Temp Pulse Resp BP Pulse Ox 97.8 F 81 12 124/59 H 99 03/26/20 14:00 03/26/20 14:43 03/26/20 14:43 03/26/20 14:00 03/26/20 14:43 Oxygen Flow Rate (L/min) 3 Oxygen Delivery Method Nasal Cannula Weight: 205 lb 0.478 oz Body Mass Index (BMI) 33.0 Finger Stick Blood Glucose 270 Intake and Output for Last 24 Hours 03/24/20 03/25/20 03/26/20 23:59 23:59 23:59 Output Total 1300 / 1300 Balance -1300 / -1300 General: Awake, Alert, Oriented x 3 HEENT: Atraumatic Oral: Moist Mucosa Neck: Supple Lungs: Rales - Kilo Bases Abdomen: Soft Extremities: Bilateral Edema +3 Psych/Mental Status: Normal Affect 03/26/20 10:55: Lactic Acid 7.3 H* 03/26/20 11:10: PT 14.4, INR 1.2, APTT 24.3 03/26/20 11:15: WBC 9.9, RBC 2.99 L, Hgb 9.2 L, Hct 29.5 L, MCV 98.7, MCH 30.8, MCHC 31.2 L, Plt Count 235, MPV 10.3, Immature Gran % (Auto) 0.300, Neut % (Auto) 62.3, Lymph % (Auto) 31.1, [place]ike % (Auto) 4.9, Eos % (Auto) 0.9, Baso % (Auto) 0.5, Absolute Neuts (auto) 6.2, Nucleated RBC % 0 03/26/20 11:15: Sodium 137, Potassium 4.2, Chloride 102, Carbon Dioxide 26.0, Anion Gap 9, BUN 23 H, Creatinine 1.21 H, Est GFR (MDRD) Af Amer 55 L, Est GFR (MDRD) Non-Af 45 L, BUN/Creatinine Ratio 19.0, Glucose 429 H, Calcium 9.1, Total Bilirubin 1.00, Troponin I 1.210 H* 03/26/20 11:15: B-Natriuretic Peptide 738.3 H 03/26/20 11:25: Urine Color Yellow, Urine Clarity Sl. Cloudy, Urine pH 5.0, Ur Specific [place] 1.020, Urine Protein 100 H, Urine Glucose (UA) 1000 H, Urine Ketones 15 H, Urine Occult Blood Negative, Urine Nitrite Negative, Urine Bilirubin Negative, Urine Urobilinogen Normal, Ur Leukocyte Esterase 25 H, Urine RBC 0 SEEN, Urine WBC 0-5 SEEN 03/26/20 15:30: Troponin I 16.000 H* 03/26/20 15:30: Lactic Acid 2.6 H* Rhythm: EKG: ECHO: Stress Test: Cardiac Cath: PCI: CT Surgery: Holter monitor: EPS: PPM: CXR: Chest CT Scan: Assessment/Plan 1. Non-STEMI: Patient has known underlying severe CAD. Her RCA has stents which are patent in the RCA itself had mild disease.Her LAD has severe diffuse disease. Her circumflex has severe proximal disease due to in-stent restenosis which was felt to be better managed medically during prior admissions. At this time patient appears to be in decompensated heart failure. It will be reasonable to keep her on IV Lasix as has already been done and continue her other medications for coronary artery disease. If patient continues to have anginal symptoms despite medical therapy we could consider angiography to see if she has any new lesions that could be treated to provide relief from angina. However at this time we know that patient has severe underlying CAD that could explain patient's symptoms and it was felt to be non-revascularizable in the past. 2. CHF: Continue IV Lasix. Continue present management.
--- NOTE | 2020-03-26 17:29 | PCM.HP.STD ---
History of Present Illness Date of Admission: 03/26/20 Chief Complaint: Shortness of breath The patient is a 79 year old F with a PMH as below extensive cardiac history presents with shortness of breath. She states that the shortness of breath started this morning and she also has some chronic chest heaviness. She had a recent non-STEMI and an echo with an EF of 55% back in February. She did present with hypoxia at 81% on room air and this was felt to be the reason why she had an elevated lactic acid in the ER of 7.3. She is a little bit of a poor historian and therefore understanding the time course of her disease process is challenging. In the ER a chest x-ray was obtained that look like bilateral pulmonary edema, she does not have a white count or a fever to indicate infection of any kind and she denies having a cough. At this point in the ED physician made the correct decision with holding IV fluids and not giving her an antibiotic as this was all likely secondary to her cardiac disease. He did notify cardiology. Past Medical History Past Medical History (Chronic Problems): Chronic Problems (Last Updated 02/11/20 @ 08:[address] Massimo Dye MD) Thrombocytopenia (Chronic) CAD (coronary artery disease) (Chronic) Essential hypertension (Chronic) Non-rheumatic aortic stenosis (Chronic) History of coronary artery stent placement (Chronic 06/25/19) PTCA-ostial/prox LCx @ [facility] 11/09/2017 PTCA-Cutting Balloon Atherectomy w/ placement of 2.5 x 20 mm Synergy Stent, Distal LM-into the Ostium of LAD Stented w/ 4.0 x 16 mm Synergy Stent 06/2017PTCA-OM 04/2017 PCI-LAD with a 2.75x38 Promus Premier drug eluting stent. 12/15/13 RAYMON of Right Posterior Lateral (Mid) wIth 3.0 x 2.8 Cypher, followed upstream with 3.0 x 8 Cypher, RAYMON of Right PDA (Ostial) with 25 x 28 Cypher 09/17/2007; 06/25/2019:LVEF: by LV gram 45-50 % Depressed Left Ventricular systolic function - Mild; Single vessel CAD of the ostial/proximal LCX in stent restenosis. Non obstructive coronary arteries of LM, LAD and RCA. Referred for immediate PCI to Dr Yao at [facility] given high risk nature and proximity to LM and LAD. Chronic systolic (congestive) heart failure (Chronic) Schizophrenia (Chronic) S/P PTCA (percutaneous transluminal coronary angioplasty) (Chronic ~11/09/17) PCI of ostial and mid LCX in-stent restenosis with laser atherectomy, balloon angioplasty per Dr. Rodriguez [facility] 08/20/18 PCI PTCA and laser atherectomy of proximal Circumflex 02/03/2018 PTCA-ostial/prox LCx @ [facility] 11/09/2017 PTCA-Cutting Balloon Atherectomy w/ placement of 2.5 x 20 mm Synergy Stent, Distal LM-into the Ostium of LAD Stented w/ 4.0 x 16 mm Synergy Stent 06/2017PTCA-OM 04/2017 PCI-LAD with a 2.75x38 Promus Premier drug eluting stent. 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 Rodriguez [facility] 08/20/18 PCI PTCA and laser atherectomy of proximal Circumflex 02/03/2018 PTCA-ostail/prox LCx @ [facility] 11/09/2017 PTCA-Cutting Balloon Atherectomy w/ placement of 2.5 x 20 mm Synergy Stent, Distal LM-into the Ostium of LAD Stented w/ 4.0 x 16 mm Synergy Stent 06/2017PTCA-OM 04/2017 PCI-LAD with a 2.75x38 Promus Premier drug eluting stent. 12/15/13 RAYMON of Right Posterior Lateral (Mid) wIth 3.0 x 2.8 Cypher, followed upstream with 3.0 x 8 Cypher, RAYMON of Right PDA (Ostial) with 25 x 28 Cypher 09/17/2007 Pancytopenia (Chronic) Hypothyroidism (Chronic) Hyperlipidemia (Chronic) Diabetes mellitus, type II (Chronic) NSTEMI (non-ST elevated myocardial infarction) (Chronic ~09/16/17) Obesity (BMI 30.0-34.9) (Chronic) Medical History: Medical History (Last Updated 02/11/20 @ 08:[address] Massimo Dye MD) Essential hypertension (Chronic) I10 Non-rheumatic aortic stenosis (Chronic) I35.0 Chronic systolic (congestive) heart failure (Chronic) I50.22 Schizophrenia (Chronic) F20.9 Atherosclerotic heart disease t[place]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 Rodriguez [facility] 08/20/18 PCI PTCA and laser atherectomy of proximal Circumflex 02/03/2018 PTCA-ostail/prox LCx @ [facility] 11/09/2017 PTCA-Cutting Balloon Atherectomy w/ placement of 2.5 x 20 mm Synergy Stent, Distal LM-into the Ostium of LAD Stented w/ 4.0 x 16 mm Synergy Stent 06/2017PTCA-OM 04/2017 PCI-LAD with a 2.75x38 Promus Premier drug eluting stent. 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) K75.81, K74.60 Mitral valve insufficiency (Inactive) I34.0 Non-rheumatic mitral regurgitation (Inactive) I34.0 Nonrheumatic tricuspid valve regurgitation (Inactive) I36.1 Tricuspid valve insufficiency (Inactive) I07.1 Allergies aripiprazole [From Abilify] Allergy (Intermediate, Verified 03/05/20 10:05) it over powered me lisinopril Allergy (Intermediate, Verified 03/05/20 10:05) Unknown atorvastatin calcium [From Lipitor] Adverse Reaction (Verified 03/05/20 10:05) Unknown rosiglitazone maleate [From Avandia] Adverse Reaction (Verified 03/05/20 10:05) Other Home Medications: Ambulatory Orders Medication Instructions Recorded Aspirin [Aspirin, Baby] 81 mg PO DAILY@0800 06/30/17 Nitroglycerin [Nitrostat] 0.4 mg SL PRN PRN 06/30/17 Multivitamins,Therapeutic 1 tab PO DAILY 02/01/18 [Multivitamin] ascorbic acid (vitamin C) 500 mg 500 mg PO DAILY 09/13/18 tablet Insulin Glargine,Hum.rec.anlog 34 unit SUBCUT DAILY 04/23/19 [Toujeo Solostar] Carvedilol [Coreg] 3.125 mg PO BIDCM 06/24/19 Cholecalciferol (Vitamin D3) 5,000 unit PO DAILY 06/24/19 [Vitamin D3] Levothyroxine [Synthroid] 100 mcg PO DAILY 07/24/19 pravastatin 80 mg tablet 80 mg PO DAILY #30 tab 09/16/19 losartan 50 mg tablet 50 mg PO DAILY #30 tab 10/14/19 traMADol [Ultram] 50 mg PO BID PRN PRN 11/12/19 Amlodipine Besylate [Norvasc] 5 mg PO DAILY 02/10/20 Folic Acid 1 mg PO DAILY 02/10/20 Furosemide 40 mg PO BID 02/10/20 Insulin Regular, Human [Humulin R] 8 unit SQ TIDCM 02/10/20 Isosorbide Mononitrate [Isosorbide 30 mg PO DAILY 02/10/20 Mononitrate ER] Isosorbide Mononitrate [Isosorbide 60 mg PO DAILY 02/10/20 Mononitrate ER] Ranolazine [Ranolazine ER] 1,000 mg PO BID 02/10/20 Ticagrelor [Brilinta] 90 mg PO BID 02/10/20 metolazone 2.5 mg tablet 2.5 mg PO .COMPLEX #8 tab 02/19/20 potassium chloride 20 mEq 20 meq PO DAILY 03/05/20 tablet,extended release Surgical History: Surgical History (Last Updated 02/11/20 @ 08:[address] Massimo Dye MD) History of coronary artery stent placement (Chronic) Onset Date: 11/20/19 Z95.5 PTCA-ostial/prox LCx @ [facility] 11/09/2017 PTCA-Cutting Balloon Atherectomy w/ placement of 2.5 x 20 mm Synergy Stent, Distal LM-into the Ostium of LAD Stented w/ 4.0 x 16 mm Synergy Stent 06/2017PTCA-OM 04/2017 PCI-LAD with a 2.75x38 Promus Premier drug eluting stent. 12/15/13 RAYMON of Right Posterior Lateral (Mid) wIth 3.0 x 2.8 Cypher, followed upstream with 3.0 x 8 Cypher, RAYMON of Right PDA (Ostial) with 25 x 28 Cypher 09/17/2007; 06/25/2019:LVEF: by LV gram 45-50 % Depressed Left Ventricular systolic function - Mild; Single vessel CAD of the ostial/proximal LCX in stent restenosis. Non obstructive coronary arteries of LM, LAD and RCA. Referred for immediate PCI to Dr Yao at [facility] given high risk nature and proximity to LM and LAD. S/P PTCA (percutaneous transluminal coronary angioplasty) (Chronic) Onset Date: ~11/09/17 Z98.61 PCI of ostial and mid LCX in-stent restenosis with laser atherectomy, balloon angioplasty per Dr. Rodriguez [facility] 08/20/18 PCI PTCA and laser atherectomy of proximal Circumflex 02/03/2018 PTCA-ostial/prox LCx @ [facility] 11/09/2017 PTCA-Cutting Balloon Atherectomy w/ placement of 2.5 x 20 mm Synergy Stent, Distal LM-into the Ostium of LAD Stented w/ 4.0 [facility] with a 2.75x38 Promus Premier drug eluting stent. 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 Marty Castillo DO) Mother CAD (coronary artery disease) Father CAD (coronary artery disease) History Items: Heart Disease - CAD, - - Schizophrenia Paternal Family History: Family History (Last Reviewed 02/10/20 @ 16:[address] Marty Castillo DO) Mother CAD (coronary artery disease) Father CAD (coronary artery disease) History Items: Heart Disease Review of Systems Constitutional: Denies: Chills, Fever, Weight Change HEENT: Denies: Head Aches, Sinus Congestion, Sinus Drainage Cardiovascular: Reports: Chest Pressure, Heaviness. Denies: Chest Pain, Palpitations Respiratory: Reports: Shortness of Breath. Denies: Cough, Shortness of breath at rest, Sputum production Gastrointestinal: Denies: Abdominal Pain, Nausea, Vomiting Genitourinary: Denies: Dysuria Musculoskeletal: Denies: Joint Pain, Joint Tenderness Skin: Denies: Rash, Wounds Neurological: Denies: Numbness, Tingling, Focal weakness Psychiatric: Denies: Anxiety, Depression Hematologic/ Lymphatic: Denies: Easy Bruising, Easy Bleeding VTE Information - Inpt Only VTE Present on Admission: No Patient Problems: Active and Suspected Problems (Last Updated 02/11/20 @ 08:[address] Massimo Dye MD) Acute respiratory failure with hypoxia (Acute) NSTEMI (non-ST elevated myocardial infarction) (Acute) - Physical Exam Vitals/I&O's: Vital Signs Temp Pulse Resp BP Pulse Ox 97.8 F 81 12 124/59 H 99 03/26/20 14:00 03/26/20 14:43 03/26/20 14:43 03/26/20 14:00 03/26/20 14:43 Oxygen Flow Rate (L/min) 3 Oxygen Delivery Method Nasal Cannula Weight: 205 lb 0.478 oz Body Mass Index (BMI) 33.0 Finger Stick Blood Glucose 270 Intake and Output for Last 24 Hours 03/24/20 03/25/20 03/26/20 23:59 23:59 23:59 Output Total 1300 / 1300 Balance -1300 / -1300 General: Alert, Oriented x3, Cooperative, No apparent distress HEENT: Atraumatic, PERRLA, EOMI, Normocephalic Oral: Moist Mucosa Neck: Supple, No JVD Lungs: Clear to auscultation, Normal air movement, No rhonchi, No wheeze, Diminished, Rales Cardiovascular: Regular rate, Regular Rhythm, Normal S1, Normal S2, No murmurs Abdomen: Soft, Non Tender, Non-Distended, No Hepato-splenomegaly Extremities: Capillary Refill Less than 3 Seconds, Edema - 2-3+ pitting bilateral Skin: No rashes, No breakdown Neurological: Neuro grossly intact, Sensory exam intact to light touch and pain Psych/Mental Status: Normal Affect, Appropriate Laboratory Results 03/26/20 10:55: Lactic Acid 7.3 H* 03/26/20 11:10: PT 14.4, INR 1.2, APTT 24.3 03/26/20 11:15: WBC 9.9, RBC 2.99 L, Hgb 9.2 L, Hct 29.5 L, MCV 98.7, MCH 30.8, MCHC 31.2 L, RDW Std Deviation 55.7 H, RDW Coeff of Conchis 15.5 H, Plt Count 235, MPV 10.3, Immature Gran % (Auto) 0.300, Neut % (Auto) 62.3, Lymph % (Auto) 31.1, Hickman % (Auto) 4.9, Eos % (Auto) 0.9, Baso % (Auto) 0.5, Absolute Neuts (auto) 6.2, Absolute Lymphs (auto) 3.09, Nucleated RBC % 0 03/26/20 11:15: Sodium 137, Potassium 4.2, Chloride 102, Carbon Dioxide 26.0, Anion Gap 9, BUN 23 H, Creatinine 1.21 H, Estim Creat Clear Calc 54.97, Est GFR (MDRD) Af Amer 55 L, Est GFR (MDRD) Non-Af 45 L, BUN/Creatinine Ratio 19.0, Glucose 429 H, Calcium 9.1, Total Bilirubin 1.00, AST 30, ALT 31, Alkaline Phosphatase 94, Troponin I 1.210 H*, Total Protein 7.5, Albumin 3.6, Globulin 3.9, Albumin/Globulin Ratio 0.9 03/26/20 11:15: B-Natriuretic Peptide 738.3 H 03/26/20 11:25: Urine Color Yellow, Urine Clarity Sl. Cloudy, Urine pH 5.0, Ur Specific Chromo 1.020, Urine Protein 100 H, Urine Glucose (UA) 1000 H, Urine Ketones 15 H, Urine Occult Blood Negative, Urine Nitrite Negative, Urine Bilirubin Negative, Urine Urobilinogen Normal, Ur Leukocyte Esterase 25 H, Urine RBC 0 SEEN, Urine WBC 0-5 SEEN, Ur Squamous Epith Cells 0-5 SEEN, Urine Bacteria RARE, Urine Mucus 0 SEEN 03/26/20 11:45: Blood Type A POSITIVE, Antibody Screen NEGATIVE 03/26/20 15:30: Troponin I 16.000 H* 03/26/20 15:30: Lactic Acid 2.6 H* 03/26/20 17:20: Troponin I Pending Current Medications Acetaminophen (Tylenol) 650 mg PO Q6H PRN PRN PRN Reason: Pain Score 1-10/Temp > 100.7 F Amlodipine Besylate (Norvasc) 5 mg PO DAILY [facility] Aspirin (Aspirin, Baby) 81 mg PO DAILY@0800 [facility] Carvedilol (Coreg) 3.125 mg PO BIDCM [facility] Dextrose (D50w Syringe) 0 gm IV X1 PRN; Protocol PRN Reason: Hypoglycemia Enoxaparin Sodium (Lovenox) 40 mg SC DAILY [facility] Furosemide (Lasix) 40 mg IV Q8 [place] Glucagon () 1 mg IM .X1 PRN PRN Reason: Hypoglycemia Insulin Human Lispro (Humalog Kwikpen (Bkc)) 0 unit SC ACHS [facility]; Protocol Isosorbide Mononitrate (Imdur) 30 mg PO DAILY [facility] Isosorbide Mononitrate (Imdur) 60 mg PO DAILY [facility] Levothyroxine Sodium (Synthroid) 100 mcg PO DAILY [facility] Losartan Potassium (Cozaar) 50 mg PO DAILY [facility] Melatonin (Melatonin) 3 mg PO QHS PRN PRN PRN Reason: INSOMNIA Non-Formulary Medication (Insulin Glargine,Hum.Rec.Anlog) 34 unit subcut DAILY [facility] Non-Formulary Medication (Insulin Regular, Human [Humulin R]) 8 unit SQ TIDCM [facility] Ondansetron HCl (Zofran) 4 mg IV Q8H PRN PRN PRN Reason: NAUSEA/VOMITING Pravastatin Sodium (Pravachol) 80 mg PO DAILY [facility] Sodium Chloride () 10 - 40 ml IV UD PRN PRN Reason: SALINE FLUSH Ticagrelor (Brilinta) 90 mg PO BID [facility] Tramadol HCl (Ultram) 50 mg PO BID PRN PRN PRN Reason: Pain or Fever Assessment/Plan All Active Problems (Last Updated 02/11/20 @ 08:[address] Massimo Dye MD) Acute respiratory failure with hypoxia (Acute) NSTEMI (non-ST elevated myocardial infarction) (Acute) Acute respiratory failure with hypoxia and hypercapnia (Acute) Acute [id number] myocardial infarction (Acute) Lactic acidosis (Acute) Acute on chronic CHF (Acute) 1. Lactic acidosis secondary to acute hypoxic respiratory failure due to acute on chronic diastolic CHF and non-STEMI/CAD status post stent/HTN/HLD -Echo in February with an EF of 55% and stage I diastolic dysfunction, RVSP 21 mmHg -she has narrowing in her circumflex which is currently being treated with medications -Lactic acid is resolving on its own with diuresis and BiPAP -Continue with aggressive diuresis with Lasix 40 mg IV 3 times daily she did receive 80 mg IV in the ER -Troponin did increase to 16, cardiology recommends current medical management we will continue with Norvasc, Coreg, isosorbide mononitrate, losartan -We will continue to monitor her blood pressure -Continue with statins -We will also continue with Brilinta and aspirin as she does have a in-stent restenosis -Appreciate cardiology input -BNP on admission is 730, her dry weight tends to be around 199 pounds and she is 207 on admission. In February her BNP was elevated to over 1200 however in November of this year her BNP was 61 2. IDDM 2 -We will continue with her home insulin -Blood sugars elevated to the 420s, will continue to monitor with Accu-Cheks and add a sliding scale to make adjustments 3. Hypothyroidism -Stable -Continue with Synthroid DVT: Lovenox Inpatient E&M: [id number] Init Hosp L3
[2020-03-26 18:25] LABS: Bedside Glucose 355 mg/dL (70-110)
[2020-03-26] MEDS: TICAGRELOR 90 MG TABLET PO (21:24)
[2020-03-26] MEDS: Isosorbide Mononitrate 60 MG Tablet PO (21:25)
[2020-03-26] MEDS: Insulin Lispro 100 UNIT/ML INSULN.PEN SC (21:25)
[2020-03-26] MEDS: Furosemide 40 MG/4 ML Vial IV (21:29)
[2020-03-26] MEDS: Pravastatin 80 MG Tablet PO (21:29)
[2020-03-26] MEDS: 0.9% Saline Lock 10 ML Syringe IV (21:35)
[2020-03-26 21:45] LABS: Bedside Glucose 387 mg/dL (70-110)
[2020-03-27] VITALS (20 sets, daily range): BP systolic 90–114; BP diastolic 39–52; PULSE 70–95; RESP 12–18; TEMP 36.7–37.1; O2SAT 16–100
[2020-03-27] MEDS: Acetaminophen 325 MG Tablet 650 MG PO (00:05)
[2020-03-27] MEDS: Furosemide 40 MG/4 ML Vial IV ×2 (06:04→15:43)
[2020-03-27] MEDS: Levothyroxine 100 MCG Tablet PO (06:04)
[2020-03-27] MEDS: 0.9% Saline Lock 10 ML Syringe IV ×5 (06:10→19:23)
[2020-03-27 06:32] LABS: Absolute Lymphocyte Count 1.02 X10^3/uL (0.83-4.51); Absolute Neutrophil Count 2.8 X10^3/uL (2.0-7.7); Basophil# 0.01 X10^3/uL; Basophil% 0.2 % (0-1); Eosinophil# 0.05 X10^3/uL; Eosinophils% 1.2 % (0-5); Hematocrit 21.6 % (37-47); Hemoglobin 6.8 g/dL (12.0-15.0); Lymphocyte # 1.02 X10^3/ul (4.0); Lymphocyte % 24.5 % (19-41); Mean Corp Hgb Conc 31.5 g/dL (32-36); Mean Corpuscular Hgb 30.8 pg (27.0-32.0); Mean Corpuscular Volume 97.7 fL (81-99); Mean Platelet Vol. 9.5 fl (6.2-12.0); Monocyte# 0.29 X10^3/uL; NRBC Flagged by Analyzer 0 % (0-5); Neutrophil # 2.79 X10^3/uL (2.7-7.7); Neutrophil % 66.9 % (47-70); Platelet Count 114 K/mm3 (150-450); RBC Distribution Width CV 15.7 % (11.6-14.6); RBC Distribution Width SD 54.9 fl (35.1-43.9); Red Blood Count 2.21 M/mm3 (4.2-5.4); White Blood Count 4.2 K/mm3 (4.4-11.0)
[2020-03-27 06:55] LABS: Anion Gap 5 (5-15); BUN 20 mg/dL (7-18); BUN/Creat Ratio 22.1 RATIO (10-20); Calcium,Total 7.9 mg/dL (8.5-10.1); Chloride 102 mmol/L (98-107); EST Glomerular Filtration Rate 64 mL/min (>60); Est Glom Filt Rate - Afr Amer 77 mL/min (>60); Estimated Creatinine Clearance 46.67 ml/min; Glucose 269 mg/dL (74-106); Potassium 3.2 mmol/L (3.5-5.1); Sodium Level 139 mmol/L (136-145)
[2020-03-27] MEDS: Insulin Lispro 100 UNIT/ML INSULN.PEN 8 UNIT SC ×3 (07:52→17:11)
[2020-03-27] MEDS: Insulin Lispro 100 UNIT/ML INSULN.PEN SC ×2 (07:53→11:51)
[2020-03-27 08:31] LABS: Bedside Glucose 262 mg/dL (70-110)
[2020-03-27] MEDS: Isosorbide Mononitrate 30 MG Tablet PO (10:35)
[2020-03-27] MEDS: Carvedilol 3.125 MG TABLET PO (10:35)
[2020-03-27] MEDS: Losartan Potassium 50 MG Tablet PO (10:35)
[2020-03-27] MEDS: Isosorbide Mononitrate 60 MG Tablet PO ×2 (10:35→22:52)
[2020-03-27] MEDS: amLODIPine 5 MG Tablet PO (10:37)
--- NOTE | 2020-03-27 10:46 | PN_ITS ---
Patient Problems: Active and Suspected Problems (Last Updated 02/11/20 @ 08:[address] Massimo Dye MD) Acute respiratory failure with hypoxia (Acute) NSTEMI (non-ST elevated myocardial infarction) (Acute) Subjective: Doing well, no issues overnight. Still with some chest pressure which is common for her. Maintaining oxygen sats just on nasal cannula Vitals/I&O's: Vital Signs Temp Pulse Resp BP Pulse Ox 98.4 F 88 14 104/52 L 100 03/27/20 10:20 03/27/20 10:20 03/27/20 10:20 03/27/20 10:20 03/27/20 10:20 Oxygen Flow Rate (L/min) 2 Oxygen Delivery Method Nasal Cannula Weight: 198 lb 6.656 oz Body Mass Index (BMI) 33.0 Finger Stick Blood Glucose 270 Intake and Output for Last 24 Hours 03/25/20 03/26/20 03/27/20 23:59 23:59 23:59 Intake Total 240 / 460 460 / 460 Output Total 1750 / 2525 1000 / 1000 Balance -1510 / -2065 -540 / -540 General: Alert, Oriented x3, Cooperative, No apparent distress HEENT: Atraumatic, PERRLA, EOMI, Normocephalic Oral: Moist Mucosa Neck: Supple, No JVD Lungs: Clear to auscultation, Normal air movement, No rhonchi, No wheeze, Diminished, Rales Cardiovascular: Regular rate, Regular Rhythm, Normal S1, Normal S2, No murmurs Abdomen: Soft, Non Tender, Non-Distended, No Hepato-splenomegaly Extremities: Capillary Refill Less than 3 Seconds, Edema - 2+ pitting bilateral Skin: No rashes, No breakdown Neurological: Neuro grossly intact, Sensory exam intact to light touch and pain Psych/Mental Status: Normal Affect, Appropriate Laboratory Results 03/26/20 10:55: Lactic Acid 7.3 H* 03/26/20 11:10: PT 14.4, INR 1.2, APTT 24.3 03/26/20 11:15: WBC 9.9, RBC 2.99 L, Hgb 9.2 L, Hct 29.5 L, MCV 98.7, MCH 30.8, MCHC 31.2 L, RDW Std Deviation 55.7 H, RDW Coeff of [place] 15.5 H, Plt Count 235, MPV 10.3, Immature Gran % (Auto) 0.300, Neut % (Auto) 62.3, Lymph % (Auto) 31.1, [place] % (Auto) 4.9, Eos % (Auto) 0.9, Baso % (Auto) 0.5, Absolute Neuts (auto) 6.2, Absolute Lymphs (auto) 3.09, Nucleated RBC % 0 03/26/20 11:15: Sodium 137, Potassium 4.2, Chloride 102, Carbon Dioxide 26.0, Anion Gap 9, BUN 23 H, Creatinine 1.21 H, Estim Creat Clear Calc 54.97, Est GFR (MDRD) Af Amer 55 L, Est GFR (MDRD) Non-Af 45 L, BUN/Creatinine Ratio 19.0, Glucose 429 H, Calcium 9.1, Total Bilirubin 1.00, AST 30, ALT 31, Alkaline Phosphatase 94, Troponin I 1.210 H*, Total Protein 7.5, Albumin 3.6, Globulin 3.9, Albumin/Globulin Ratio 0.9 03/26/20 11:15: B-Natriuretic Peptide 738.3 H 03/26/20 11:25: Urine Color Yellow, Urine Clarity Sl. Cloudy, Urine pH 5.0, Ur Specific [place] 1.020, Urine Protein 100 H, Urine Glucose (UA) 1000 H, Urine Ketones 15 H, Urine Occult Blood Negative, Urine Nitrite Negative, Urine Bilirubin Negative, Urine Urobilinogen Normal, Ur Leukocyte Esterase 25 H, Urine RBC 0 SEEN, Urine WBC 0-5 SEEN, Ur Squamous Epith Cells 0-5 SEEN, Urine Bacteria RARE, Urine Mucus 0 SEEN 03/26/20 11:45: Blood Type A POSITIVE, Antibody Screen NEGATIVE 03/26/20 11:45: Crossmatch See Detail 03/26/20 15:30: Troponin I 16.000 H* 03/26/20 15:30: Lactic Acid 2.6 H* 03/26/20 17:20: Troponin I 26.400 H* 03/26/20 18:20: POC Glucose 355 H 03/26/20 21:14: POC Glucose 387 H 03/27/20 06:25: WBC 4.2 L, RBC 2.21 L, Hgb 6.8 L, Hct 21.6 L, MCV 97.7, MCH 30.8, MCHC 31.5 L, RDW Std Deviation 54.9 H, RDW Coeff of [place] 15.7 H, Plt Count 114 L, MPV 9.5, Immature Gran % (Auto) 0.200, Neut % (Auto) 66.9, Lymph % (Auto) 24.5, [place] % (Auto) 7.0, Eos % (Auto) 1.2, Baso % (Auto) 0.2, Absolute Neuts (auto) 2.8, Absolute Lymphs (auto) 1.02, Nucleated RBC % 0 03/27/20 06:25: Sodium 139, Potassium 3.2 L, Chloride 102, Carbon Dioxide 32.0, Anion Gap 5, BUN 20 H, Creatinine 0.90, Estim Creat Clear Calc 46.67, Est GFR (MDRD) Af Amer 77, Est GFR (MDRD) Non-Af 64, BUN/Creatinine Ratio 22.1 H, Glucose 269 H, Calcium 7.9 L 03/27/20 07:51: POC Glucose 262 H Current Medications Acetaminophen (Tylenol) 650 mg PO Q6H PRN PRN PRN Reason: Pain Score 1-10/Temp > 100.7 F Last Admin: 03/27/20 00:05 Dose: 650 mg Documented by: Amlodipine Besylate (Norvasc) 5 mg PO DAILY [facility] Last Admin: 03/27/20 10:37 Dose: 5 mg Documented by: Aspirin (Aspirin, Baby) 81 mg PO DAILY@0800 [facility] Last Admin: 03/27/20 07:57 Dose: Not Given Documented by: [facility]) [facility] Last Admin: 03/27/20 10:35 Dose: 3.125 mg Documented by: Dextrose (D50w Syringe) 0 gm IV X1 PRN; Protocol PRN Reason: Hypoglycemia Enoxaparin Sodium (Lovenox) 40 mg SC DAILY [facility] Furosemide (Lasix) 40 mg IV Q8 [facility] Last Admin: 03/27/20 06:04 Dose: 40 mg Documented by: Glucagon () 1 mg IM .X1 PRN PRN Reason: Hypoglycemia Insulin Glargine (Lantus ([facility])) 34 units SC DAILY [facility] Insulin Human Lispro (Humalog Kwikpen ([facility])) 8 unit SC 0800,1200,1700 [facility] Last Admin: 03/27/20 07:52 Dose: 8 u Documented by: Insulin Human Lispro (Humalog Kwikpen (B[facility])) 0 unit SC [facility]; Protocol Last Admin: 03/27/20 07:53 Dose: 6 units Documented by: Isosorbide Mononitrate (Imdur) 30 mg PO DAILY [facility] Last Admin: 03/27/20 10:35 Dose: 30 mg Documented by: Isosorbide Mononitrate (Imdur) 60 mg PO DAILY [facility] Last Admin: 03/27/20 10:35 Dose: 60 mg Documented by: Isosorbide Mononitrate (Imdur) 60 mg PO QHS [facility] Last Admin: 03/26/20 21:25 Dose: 60 mg Documented by: Levothyroxine Sodium (Synthroid) 100 mcg PO DAILY@0600 [facility] Last Admin: 03/27/20 06:04 Dose: 100 mcg Documented by: Losartan Potassium (Cozaar) 50 mg PO DAILY [facility] Last Admin: 03/27/20 10:35 Dose: 50 mg Documented by: Melatonin (Melatonin) 3 mg PO QHS PRN PRN PRN Reason: INSOMNIA Ondansetron HCl (Zofran) 4 mg IV Q8H PRN PRN PRN Reason: NAUSEA/VOMITING Pravastatin Sodium (Pravachol) 80 mg PO QHS [facility] Last Admin: 03/26/20 21:29 Dose: 80 mg Documented by: Sodium Chloride () 10 - 40 ml IV UD PRN PRN Reason: SALINE FLUSH Last Admin: 03/27/20 10:35 Dose: 10 ml Documented by: Ticagrelor (Brilinta) 90 mg PO BID [facility] Last Admin: 03/26/20 21:24 Dose: 90 mg Documented by: Tramadol HCl (Ultram) 50 mg PO BID PRN PRN PRN Reason: Pain 1-10/10 or Fever STROKE Vital Signs/Narrative: Vital Signs Temp Pulse Resp BP Pulse Ox 03/27/20 10:20 98.4 F 88 14 104/52 L 100 03/27/20 08:00 98.3 F 90 12 101/45 L 99 03/27/20 07:31 99 03/27/20 07:00 85 Medical Necessity - Tobacco Use Smoking Status: Never smoker Assessment/Plan All Active Problems (Last Updated 02/11/20 @ 08:[address] Massimo Dye MD) Acute respiratory failure with hypoxia (Acute) NSTEMI (non-ST elevated myocardial infarction) (Acute) Acute respiratory failure with hypoxia and hypercapnia (Acute) Acute [id number] myocardial infarction (Acute) Lactic acidosis (Acute) Acute on chronic CHF (Acute) 1. Lactic acidosis secondary to acute hypoxic respiratory failure due to acute on chronic diastolic CHF and non-STEMI/CAD status post stent/HTN/HLD -Echo in February with an EF of 55% and stage I diastolic dysfunction, RVSP 21 mmHg -she has narrowing in her circumflex which is currently being treated with medications -Lactic acid is resolving on its own with diuresis and BiPAP -Continue with aggressive diuresis with Lasix 40 mg IV 3 times daily she did receive 80 mg IV in the ER -Troponin did increase to 26, cardiology recommends current medical management we will continue with Norvasc, Coreg, isosorbide mononitrate, losartan -We will continue to monitor her blood pressure -Continue with statins -We will also continue with Brilinta and aspirin as she does have a in-stent restenosis -Appreciate cardiology input -BNP on admission is 730, her dry weight tends to be around 199 pounds and she is 207 on admission. In February her BNP was elevated to over 1200 however in November of this year her BNP was 61 2. Anemia unknown etiology -2018 she had iron studies and which were normal though she had a low iron saturation -No occult blood in the UA, and she was not complaining of any blood in her stools -Hemoglobin is 6.8, will transfuse 2 units. We will still continue with the Brilinta and the aspirin and will monitor -No abdominal pain -Occult stool is pending -She does not have any microcytosis, but could repeat iron studies 3. IDDM 2 -We will continue with her home insulin -Blood sugars elevated to the 420s, will continue to monitor with Accu-Cheks and add a sliding scale to make adjustments 4. Hypothyroidism -Stable -Continue with Synthroid DVT: SCDs Inpatient E&M: 22523 Subs Hosp L2
--- NOTE | 2020-03-27 11:04 | PCM.PN.CARD ---
Objective: Vital Signs Temp Pulse Resp BP Pulse Ox 98.4 F 91 16 104/48 L 99 03/27/20 10:47 03/27/20 10:47 03/27/20 10:47 03/27/20 10:47 03/27/20 10:47 Oxygen Flow Rate (L/min) 2 Oxygen Delivery Method Nasal Cannula Weight: 198 lb 6.656 oz Body Mass Index (BMI) 33.0 Finger Stick Blood Glucose 270 Intake and Output for Last 24 Hours 03/25/20 03/26/20 03/27/20 23:59 23:59 23:59 Intake Total 240 / 460 460 / 460 Output Total 1750 / 2525 1000 / 1000 Balance -1510 / -2065 -540 / -540 03/26/20 10:55: Lactic Acid 7.3 H* 03/26/20 11:10: PT 14.4, INR 1.2, APTT 24.3 03/26/20 11:15: WBC 9.9, RBC 2.99 L, Hgb 9.2 L, Hct 29.5 L, MCV 98.7, MCH 30.8, MCHC 31.2 L, Plt Count 235, MPV 10.3, Immature Gran % (Auto) 0.300, Neut % (Auto) 62.3, Lymph % (Auto) 31.1, [place] % (Auto) 4.9, Eos % (Auto) 0.9, Baso % (Auto) 0.5, Absolute Neuts (auto) 6.2, Nucleated RBC % 0 03/26/20 11:15: Sodium 137, Potassium 4.2, Chloride 102, Carbon Dioxide 26.0, Anion Gap 9, BUN 23 H, Creatinine 1.21 H, Est GFR (MDRD) Af Amer 55 L, Est GFR (MDRD) Non-Af 45 L, BUN/Creatinine Ratio 19.0, Glucose 429 H, Calcium 9.1, Total Bilirubin 1.00, Troponin I 1.210 H* 03/26/20 11:15: B-Natriuretic Peptide 738.3 H 03/26/20 11:25: Urine Color Yellow, Urine Clarity Sl. Cloudy, Urine pH 5.0, Ur Specific [place] 1.020, Urine Protein 100 H, Urine Glucose (UA) 1000 H, Urine Ketones 15 H, Urine Occult Blood Negative, Urine Nitrite Negative, Urine Bilirubin Negative, Urine Urobilinogen Normal, Ur Leukocyte Esterase 25 H, Urine RBC 0 SEEN, Urine WBC 0-5 SEEN 03/26/20 15:30: Troponin I 16.000 H* 03/26/20 15:30: Lactic Acid 2.6 H* 03/26/20 17:20: Troponin I 26.400 H* 03/27/20 06:25: WBC 4.2 L, RBC 2.21 L, Hgb 6.8 L, Hct 21.6 L, MCV 97.7, MCH 30.8, MCHC 31.5 L, Plt Count 114 L, MPV 9.5, Immature Gran % (Auto) 0.200, Neut % (Auto) 66.9, Lymph % (Auto) 24.5, [place] % (Auto) 7.0, Eos % (Auto) 1.2, Baso % (Auto) 0.2, Absolute Neuts (auto) 2.8, Nucleated RBC % 0 03/27/20 06:25: Sodium 139, Potassium 3.2 L, Chloride 102, Carbon Dioxide 32.0, Anion Gap 5, BUN 20 H, Creatinine 0.90, Est GFR (MDRD) Af Amer 77, Est GFR (MDRD) Non-Af 64, BUN/Creatinine Ratio 22.1 H, Glucose 269 H, Calcium 7.9 L Rhythm: EKG: ECHO: Stress Test: Cardiac Cath: PCI: CT Surgery: Holter monitor: EPS: PPM: CXR: Chest CT Scan: Medical Necessity - Tobacco Use Smoking Status: Never smoker Assessment/Plan 79-year-old patient, seen and evaluated this morning at bedside along with the nursing staff. This patient is extensive cardiac history, with prior multiple stents to the LAD and to the RCA. Has severe atherosclerosis of ostial circumflex artery This admission she presented with symptoms of shortness of breath, chest pain and has diastolic heart failure Last time echocardiogram showed LV function preserved. She was seen by her primary medical records technician in this admission, Dr.Nagajothi Marroquin and patient was on treatment with dual antiplatelet therapy including ticagrelor 90 mg twice a day in addition to low-dose aspirin she has anemia requiring blood transfusion she dropped her hemoglobin from 9-6.8. This morning she has no symptoms of chest pain and she diuresed very well on Lasix. Cardiac care plan discussed in detail to the patient by his primary medical records technician and recommendation is conservative treatment. I reinforce the cardiac care plan to the patient and to the nursing staff. Agreed to anemia with a low hemoglobin of 6.8 she is on blood transfusion and GI recommendation. We will hold the dual antiplatelet therapy and will continue to follow-up closely during this admission. She will continue on antianginal medication
[2020-03-27 11:20] LABS: Ferritin 15 ng/mL (8-252); Iron 19 ug/dL (50-170); Iron Binding Capacity,Total 267 ug/dL (250-450); PERCENT IRON SATURATION 7.1 % (15.0-55.0)
[2020-03-27 12:00] LABS: Bedside Glucose 156 mg/dL (70-110)
--- NOTE | 2020-03-27 15:28 | CASEMGMT ---
SOCIAL WORK Informant: BELINDA TRACEY Reason for Consult: Discharge Planning Met with patient in room. Introduced role and reason for referral. Patient reports lives home alone and has home health aides. Patient reports is feeling weak and unsure of needs/plan at this time. Emotional support provided. Informed patient a social research assistant will follow up on Sunday for discharge planning needs. Plan: TBD, Home with home health vs SNF-SW to follow up Sunday Harini Sandoval, IT CONSULTANT, PHYSICAL MEDICINE PHYSICIAN
[2020-03-27 17:21] LABS: Bedside Glucose 129 mg/dL (70-110)
[2020-03-27 22:02] LABS: Hematocrit 25.6 % (37-47); Hemoglobin 8.2 g/dL (12.0-15.0)
--- NOTE | 2020-03-27 22:07 | PCM.PN.BLA ---
Progress Note Per vaccines solutions specialist notes aspirin and Brilinta has been discontinued. STROKE Vital Signs/Narrative: Vital Signs Temp Pulse Resp BP Pulse Ox 03/27/20 18:56 85 03/27/20 18:40 98.6 F 82 14 99/48 L 99 03/27/20 18:39 98.6 F 82 14 99/48 L 99
[2020-03-27] MEDS: Pravastatin 80 MG Tablet PO (22:36)
[2020-03-27 23:51] LABS: Bedside Glucose 142 mg/dL (70-110)
[2020-03-28] VITALS (14 sets, daily range): BP systolic 96–117; BP diastolic 36–46; PULSE 60–78; RESP 13–15; TEMP 36.5–36.9; O2SAT 92–100
[2020-03-28] MEDS: Acetaminophen 325 MG Tablet 650 MG PO ×2 (00:41→16:39)
[2020-03-28] MEDS: Levothyroxine 100 MCG Tablet PO (05:21)
[2020-03-28 05:34] LABS: Absolute Lymphocyte Count 1.38 X10^3/uL (0.83-4.51); Absolute Neutrophil Count 1.9 X10^3/uL (2.0-7.7); Basophil# 0.02 X10^3/uL; Basophil% 0.5 % (0-1); Eosinophil# 0.06 X10^3/uL; Eosinophils% 1.6 % (0-5); Hematocrit 25.3 % (37-47); Lymphocyte # 1.38 X10^3/ul (4.0); Lymphocyte % 36.6 % (19-41); Mean Corp Hgb Conc 31.6 g/dL (32-36); Mean Corpuscular Volume 98.1 fL (81-99); Mean Platelet Vol. 9.8 fl (6.2-12.0); Monocyte# 0.36 X10^3/uL; Monocyte% 9.5 % (0-10); NRBC Flagged by Analyzer 0 % (0-5); Neutrophil # 1.94 X10^3/uL (2.7-7.7); Neutrophil % 51.5 % (47-70); Platelet Count 108 K/mm3 (150-450); RBC Distribution Width CV 15.6 % (11.6-14.6); RBC Distribution Width SD 55.1 fl (35.1-43.9); Red Blood Count 2.58 M/mm3 (4.2-5.4); White Blood Count 3.8 K/mm3 (4.4-11.0)
--- NOTE | 2020-03-28 05:35 | NURSING ---
Pt has not voided since Garcia was removed at 22:44. Pt bladder scanned for >177 at this time. Pt denies urge to void. Will continue to monitor.
[2020-03-28 06:03] LABS: Anion Gap 4 (5-15); BUN 18 mg/dL (7-18); BUN/Creat Ratio 23.7 RATIO (10-20); Calcium,Total 7.8 mg/dL (8.5-10.1); Chloride 103 mmol/L (98-107); Creatinine, Serum 0.76 mg/dL (0.55-1.02); EST Glomerular Filtration Rate 78 mL/min (>60); Est Glom Filt Rate - Afr Amer 94 mL/min (>60); Glucose 106 mg/dL (74-106); Magnesium 2.2 mg/dL (1.6-2.6); Phosphorus 2.6 mg/dL (2.5-4.9); Potassium 2.9 mmol/L (3.5-5.1); Sodium Level 139 mmol/L (136-145)
[2020-03-28] MEDS: Insulin Lispro 100 UNIT/ML INSULN.PEN 8 UNIT SC ×3 (09:46→16:44)
[2020-03-28] MEDS: Isosorbide Mononitrate 30 MG Tablet PO (09:47)
[2020-03-28] MEDS: Isosorbide Mononitrate 60 MG Tablet PO ×2 (09:47→22:50)
[2020-03-28 09:56] LABS: Bedside Glucose 113 mg/dL (70-110)
--- NOTE | 2020-03-28 11:38 | PCM.PN.HOSP ---
Patient Problems: Active and Suspected Problems (Last Updated 02/11/20 @ 08:[address] Massimo Dye MD) Acute respiratory failure with hypoxia (Acute) NSTEMI (non-ST elevated myocardial infarction) (Acute) Subjective: Feeling better than she did yesterday after the blood transfusions. She says it though she is feeling pretty weak. No current chest pain. Vitals/I&O's: Vital Signs Temp Pulse Resp BP Pulse Ox 97.8 F 72 15 96/36 L 92 03/28/20 09:40 03/28/20 11:00 03/28/20 09:40 03/28/20 09:40 03/28/20 09:40 Oxygen Flow Rate (L/min) 2 Oxygen Delivery Method Room Air Weight: 198 lb 10.184 oz Body Mass Index (BMI) 33.0 Finger Stick Blood Glucose 270 Intake and Output for Last 24 Hours 03/26/20 03/27/20 03/28/20 23:59 23:59 23:59 Intake Total 240 / 460 2350 / 2350 220 / 220 Output Total 1750 / 2525 2673 / 2673 0 / 0 Balance -1510 / -2065 -323 / -323 220 / 220 General: Alert, Oriented x3, Cooperative, No apparent distress HEENT: Atraumatic, PERRLA, EOMI, Normocephalic Oral: Moist Mucosa Neck: Supple, No JVD Lungs: Clear to auscultation, Normal air movement, No rhonchi, No wheeze, no rales, diminished Cardiovascular: Regular rate, Regular Rhythm, Normal S1, Normal S2, No murmurs Abdomen: Soft, Non Tender, Non-Distended, No Hepato-splenomegaly Extremities: Capillary Refill Less than 3 Seconds, Edema - 2+ pitting bilateral Skin: No rashes, No breakdown Neurological: Neuro grossly intact, Sensory exam intact to light touch and pain Psych/Mental Status: Normal Affect, Appropriate Laboratory Results 03/26/20 11:45: Crossmatch See Detail 03/27/20 11:49: POC Glucose 156 H 03/27/20 17:10: POC Glucose 129 H 03/27/20 21:40: Hgb 8.2 L, Hct 25.6 L 03/27/20 22:34: POC Glucose 142 H 03/28/20 05:20: WBC 3.8 L, RBC 2.58 L, Hgb 8.0 L, Hct 25.3 L, MCV 98.1, MCH 31.0, MCHC 31.6 L, RDW Std Deviation 55.1 H, RDW Coeff of [place] 15.6 H, Plt Count 108 L, MPV 9.8, Immature Gran % (Auto) 0.300, Neut % (Auto) 51.5, Lymph % (Auto) 36.6, [place] % (Auto) 9.5, Eos % (Auto) 1.6, Baso % (Auto) 0.5, Absolute Neuts (auto) 1.9 L, Absolute Lymphs (auto) 1.38, Nucleated RBC % 0 03/28/20 05:20: Sodium 139, Potassium 2.9 L, Chloride 103, Carbon Dioxide 32.0, Anion Gap 4 L, BUN 18, Creatinine 0.76, Estim Creat Clear Calc 42.00, Est GFR (MDRD) Af Amer 94, Est GFR (MDRD) Non-Af 78, BUN/Creatinine Ratio 23.7 H, Glucose 106, Calcium 7.8 L, Phosphorus 2.6, Magnesium 2.2 03/28/20 07:45: POC Glucose 113 H Current Medications Acetaminophen (Tylenol) 650 mg PO Q6H PRN PRN PRN Reason: Pain Score 1-10/Temp > 100.7 F Last Admin: 03/28/20 00:41 Dose: 650 mg Documented by: Amlodipine Besylate (Norvasc) 5 mg PO DAILY [facility] Last Admin: 03/28/20 09:41 Dose: Not Given Documented by: [facility] ([facility]) [facility] Last Admin: 03/28/20 09:40 Dose: Not Given Documented by: Dextrose (D50w Syringe) 0 gm IV X1 PRN; Protocol PRN Reason: Hypoglycemia Furosemide (Lasix) 40 mg IV BID@1000,1800 [facility] Glucagon () 1 mg IM .X1 PRN PRN Reason: Hypoglycemia Insulin Glargine (Lantus ([facility])) 34 units SC DAILY [facility] Last Admin: 03/27/20 11:50 Dose: 34 u Documented by: Insulin Human Lispro (Humalog Kwikpen ([facility])) 8 unit SC 0800,1200,1700 [facility] Last Admin: 03/28/20 09:46 Dose: 8 u Documented by: Insulin Human Lispro (Humalog Kwikpen ([facility])) 0 unit SC [facility]; Protocol Last Admin: 03/28/20 08:03 Dose: Not Given Documented by: Isosorbide Mononitrate (Imdur) 30 mg PO DAILY [facility] Last Admin: 03/28/20 09:47 Dose: 30 mg Documented by: Isosorbide Mononitrate (Imdur) 60 mg PO DAILY [facility] Last Admin: 03/28/20 09:47 Dose: 60 mg Documented by: Isosorbide Mononitrate (Imdur) 60 mg PO QHS [facility] Last Admin: 03/27/20 22:52 Dose: 60 mg Documented by: Levothyroxine Sodium (Synthroid) 100 mcg PO DAILY@0600 [facility] Last Admin: 03/28/20 05:21 Dose: 100 mcg Documented by: Losartan Potassium (Cozaar) 50 mg PO DAILY [facility] Last Admin: 03/28/20 09:40 Dose: Not Given Documented by: Melatonin (Melatonin) 3 mg PO QHS PRN PRN PRN Reason: INSOMNIA Ondansetron HCl (Zofran) 4 mg IV Q8H PRN PRN PRN Reason: NAUSEA/VOMITING Potassium Chloride (K[facility]Dur) [facility] Last Admin: 03/28/20 09:45 Dose: 20 meq Documented by: Potassium Chloride (K-Dur) [facility] Stop: 03/28/20 17:01 Last Admin: 03/28/20 09:45 Dose: 40 meq Documented by: Pravastatin Sodium (Pravachol) 80 mg PO QHS [facility] Last Admin: 03/27/20 22:36 Dose: 80 mg Documented by: Sodium Chloride () 10 - 40 ml IV UD PRN PRN Reason: SALINE FLUSH Last Admin: 03/27/20 19:23 Dose: 10 ml Documented by: Tramadol HCl (Ultram) 50 mg PO BID PRN PRN PRN Reason: Pain 1-10/10 or Fever STROKE Vital Signs/Narrative: Vital Signs Temp Pulse Resp BP Pulse Ox 03/28/20 11:00 72 03/28/20 09:40 97.8 F 70 15 96/36 L 92 Medical Necessity - Tobacco Use Smoking Status: Never smoker Assessment/Plan All Active Problems (Last Updated 02/11/20 @ 08:[address] Massimo Dye MD) Acute respiratory failure with hypoxia (Acute) NSTEMI (non-ST elevated myocardial infarction) (Acute) Acute respiratory failure with hypoxia and hypercapnia (Acute) Acute [id number] myocardial infarction (Acute) Lactic acidosis (Acute) Acute on chronic CHF (Acute) 1. Lactic acidosis secondary to acute hypoxic respiratory failure due to acute on chronic diastolic CHF and non-STEMI/CAD status post stent/HTN/HLD -Echo in February with an EF of 55% and stage I diastolic dysfunction, RVSP 21 mmHg -she has narrowing in her circumflex which is currently being treated with medications -Lactic acid is resolving on its own with diuresis and BiPAP -Decrease her Lasix to 40 mg IV twice daily -Troponin did increase to 26, cardiology recommends current medical management we will continue with Norvasc, Coreg, isosorbide mononitrate, losartan -We will continue to monitor her blood pressure -Continue with statins -Cardiology is okay with holding her antiplatelets given her drop in hemoglobin -Appreciate cardiology input -BNP on admission is 730, her dry weight tends to be around 199 pounds and she is 207 on admission. In February her BNP was elevated to over 1200 however in November of this year her BNP was 61 2. Anemia unknown etiology -2017 she had iron studies and which were normal though she had a low iron saturation -No occult blood in the UA, and she was not complaining of any blood in her stools -Hemoglobin is 6.8, will transfuse 2 units. Her recheck 1-8.2 and today she was 8.0 -No abdominal pain -Occult stool is pending -She does not have any microcytosis, but repeat iron studies demonstrate an iron of 19 with a TIBC of 267 and iron saturation of 7.1. We will start her on iron replacement 3. IDDM 2 -We will continue with her home insulin -Blood sugars elevated to the 420s, will continue to monitor with Accu-Cheks and add a sliding scale to make adjustments 4. Hypothyroidism -Stable -Continue with Synthroid Disposition: Discussed the possibility of [facility]pc facility for rehab which she is okay with. We will have PT/OT evaluate her today DVT: SCDs
[2020-03-28] MEDS: Furosemide 40 MG/4 ML Vial IV ×2 (11:42→17:25)
[2020-03-28] MEDS: Insulin Lispro 100 UNIT/ML INSULN.PEN SC ×2 (11:43→16:44)
[2020-03-28] MEDS: 0.9% Saline Lock 10 ML Syringe IV ×2 (11:45→17:30)
--- NOTE | 2020-03-28 12:36 | PN.CARD_ITS ---
Objective: Vital Signs Temp Pulse Resp BP Pulse Ox 97.8 F 71 15 96/36 L 99 03/28/20 09:40 03/28/20 11:53 03/28/20 09:40 03/28/20 09:40 03/28/20 11:53 Oxygen Flow Rate (L/min) 2 Oxygen Delivery Method Room Air Weight: 198 lb 10.184 oz Body Mass Index (BMI) 33.0 Finger Stick Blood Glucose 270 Intake and Output for Last 24 Hours 03/26/20 03/27/20 03/28/20 23:59 23:59 23:59 Intake Total 240 / 460 2350 / 2350 220 / 220 Output Total 1750 / 2525 2673 / 2673 0 / 0 Balance -1510 / -2065 -323 / -323 220 / 220 General: Awake, Alert, Oriented x 3 HEENT: PERRL, EOMI, Sclera Non Icteric Neck: Supple, Good ROM, No Lymph Node Enlargement Lungs: Clear to auscultation Cardiovascular: Regular Rhythm, Normal S1, Normal S2, No Murmurs, No Rubs, No Gallops 03/27/20 21:40: Hgb 8.2 L, Hct 25.6 L 03/28/20 05:20: WBC 3.8 L, RBC 2.58 L, Hgb 8.0 L, Hct 25.3 L, MCV 98.1, MCH 31.0, MCHC 31.6 L, Plt Count 108 L, MPV 9.8, Immature Gran % (Auto) 0.300, Neut % (Auto) 51.5, Lymph % (Auto) 36.6, [place] % (Auto) 9.5, Eos % (Auto) 1.6, Baso % (Auto) 0.5, Absolute Neuts (auto) 1.9 L, Nucleated RBC % 0 03/28/20 05:20: Sodium 139, Potassium 2.9 L, Chloride 103, Carbon Dioxide 32.0, Anion Gap 4 L, BUN 18, Creatinine 0.76, Est GFR (MDRD) Af Amer 94, Est GFR (MDRD) Non-Af 78, BUN/Creatinine Ratio 23.7 H, Glucose 106, Calcium 7.8 L, Phosphorus 2.6, Magnesium 2.2 Rhythm: EKG: ECHO: Stress Test: Cardiac Cath: PCI: CT Surgery: Holter monitor: EPS: PPM: CXR: Chest CT Scan: Medical Necessity - Tobacco Use Smoking Status: Never smoker Assessment/Plan 79-year-old patient, seen and evaluated this morning at bedside along with the nursing staff. This patient is extensive cardiac history, with prior multiple stents to the LAD and to the RCA. Has severe atherosclerosis of ostial circumflex artery This admission she presented with symptoms of shortness of breath, chest pain and has diastolic heart failure Last time echocardiogram showed LV function preserved. Today the patient is comfortable sitting out in a chair she does not have symptoms of chest pain. I discussed the cardiac care plan with the nurse and added Ranexa 500 mg twice a day. Discontinue Brilinta as she has anemia requiring blood transfusion and continue low-dose aspirin. Last time she had PCI and stent was in June 2019. Also I discussed the need of further evaluation possible by upper GI endoscopy to evaluate for bleeding. Should be a high risk patient for continuation of dual antiplatelet therapy and at this point recommendation is just a low-dose aspirin in addition to antianginal medication/maximize with Imdur/beta- radha/Ranexa Patient responded very well to diuresis and she has remarkable improvement in her lower extremity swelling From cardiac standpoint she is stable and she will be seen and followed up by her primary dust puller for continuation of cardiac care
[2020-03-28] MEDS: Ferrous Sulfate 325 MG Tablet PO ×3 (13:01→22:48)
--- NOTE | 2020-03-28 14:31 | NURSING ---
[facility] Per automated message pharmacy is closed on weekends. Pt doesn't recall all of medications. Unable to complete home medication list at this time.
[2020-03-28 15:56] LABS: Bedside Glucose 209 mg/dL (70-110)
[2020-03-28 17:46] LABS: Bedside Glucose 158 mg/dL (70-110)
--- NOTE | 2020-03-28 22:10 | CPS ---
pt requested not to wear BiPAP tonight and wanted just to wear oxygen
[2020-03-28] MEDS: Polyethylene Glycol 3350 17 GM PACKET PO (22:46)
[2020-03-28] MEDS: Ranolazine 500 MG Tablet PO (22:48)
[2020-03-28] MEDS: Pravastatin 80 MG Tablet PO (22:50)
[2020-03-28 22:51] LABS: Bedside Glucose 88 mg/dL (70-110)
[2020-03-29] VITALS (8 sets, daily range): BP systolic 93–111; BP diastolic 42–51; PULSE 69–76; RESP 14–15; TEMP 36.6–36.8; O2SAT 96–100
[2020-03-29] MEDS: Levothyroxine 100 MCG Tablet PO (06:15)
[2020-03-29 06:53] LABS: Absolute Lymphocyte Count 1.22 X10^3/uL (0.83-4.51); Absolute Neutrophil Count 1.6 X10^3/uL (2.0-7.7); Basophil# 0.02 X10^3/uL; Basophil% 0.6 % (0-1); Eosinophil# 0.07 X10^3/uL; Eosinophils% 2.1 % (0-5); Hematocrit 27.6 % (37-47); Hemoglobin 8.9 g/dL (12.0-15.0); Lymphocyte # 1.22 X10^3/ul (4.0); Lymphocyte % 36.6 % (19-41); Mean Corp Hgb Conc 32.2 g/dL (32-36); Mean Corpuscular Volume 99.3 fL (81-99); Mean Platelet Vol. 9.6 fl (6.2-12.0); Monocyte# 0.37 X10^3/uL; Monocyte% 11.1 % (0-10); NRBC Flagged by Analyzer 0 % (0-5); Neutrophil # 1.64 X10^3/uL (2.7-7.7); Neutrophil % 49.3 % (47-70); Platelet Count 117 K/mm3 (150-450); RBC Distribution Width CV 15.2 % (11.6-14.6); RBC Distribution Width SD 54.3 fl (35.1-43.9); Red Blood Count 2.78 M/mm3 (4.2-5.4); White Blood Count 3.3 K/mm3 (4.4-11.0)
[2020-03-29 06:56] LABS: Anion Gap 6 (5-15); BUN 13 mg/dL (7-18); BUN/Creat Ratio 20.2 RATIO (10-20); Calcium,Total 7.7 mg/dL (8.5-10.1); Chloride 108 mmol/L (98-107); Creatinine, Serum 0.64 mg/dL (0.55-1.02); EST Glomerular Filtration Rate 94 mL/min (>60); Est Glom Filt Rate - Afr Amer 114 mL/min (>60); Glucose 71 mg/dL (74-106); Potassium 3.7 mmol/L (3.5-5.1); Sodium Level 139 mmol/L (136-145)
--- NOTE | 2020-03-29 08:19 | RAD_ITS ---
STUDY: X-RAY CHEST REASON FOR EXAM: Female, 79 years old. INCREASED SOB, HX CHF TECHNIQUE: Single AP portable view of the chest. COMPARISON: Comparison is made with prior study dated 03/26/2020. FINDINGS: EKG electrodes are seen. A right-sided PICC line catheter is seen with the tip at the junction of the superior vena cava and right atrium. The previously seen CHF has almost completely resolved. Minimal residual changes persist. Mild increased markings at the lung bases suggestive of atelectasis with blunting of the left costophrenic angle. There is mild cardiac enlargement. Normal mediastinum and rell. Normal visualized pulmonary arteries. There is atherosclerotic calcification of the aortic arch with tortuosity. There are diffuse degenerative changes of the visualized thoracic spine. Normal visualized ribs, clavicles, and shoulders. There is no demonstrated abnormality of the visualized soft tissue structures of the upper abdomen. RAD/Chest 1 View (Portable) IMPRESSION: As compared to prior examination, the CHF has almost completely resolved with minimal residual increased linear markings at the lung bases and blunting of the left costophrenic angle. Electronically Signed: Jasiel Luna, at 12:26 EDT , Service support ,
[2020-03-29 08:50] LABS: Bedside Glucose 129 mg/dL (70-110)
[2020-03-29] MEDS: Carvedilol 3.125 MG TABLET PO (09:33)
[2020-03-29] MEDS: Ascorbic Acid 500 MG Tablet PO (09:33)
[2020-03-29] MEDS: Isosorbide Mononitrate 30 MG Tablet PO (09:33)
[2020-03-29] MEDS: Losartan Potassium 50 MG Tablet PO (09:34)
[2020-03-29] MEDS: Ranolazine 500 MG Tablet PO (09:34)
[2020-03-29] MEDS: Furosemide 40 MG/4 ML Vial IV (09:35)
[2020-03-29] MEDS: Polyethylene Glycol 3350 17 GM PACKET PO (09:35)
[2020-03-29] MEDS: Isosorbide Mononitrate 60 MG Tablet PO (09:37)
--- NOTE | 2020-03-29 11:20 | CASEMGMT ---
Addendum entered by Joyce Diego 03/29/20 12:14: Back to room to speak with pt regarding d/c plan at this time. Pt declines the need for therapy at discharge at this time. Pt states the only therapy she needs at home is the oxygen and 'you already explained to me about that'. Pt states she lives at [facility] independent living and states that therapy gave her some exercises to do at home at this time. Pt does agree to referral to [facility] at this time, order placed, and call to Jorge at [facility] to notify of referral at this time. Pt voices no further questions/concerns/needs at this time. Rolando TREVINO CM Original Note: This RN CM to room to discuss discharge plan with pt at this time. Pt is upset that she still does not qualify for home oxygen at this time. Pt is aware that she can pay out of pocket but that she will also need a script written. Advised pt that hospitalist may not be willing to write for script, but that her PCP may, pt voices understanding. This RN CM was starting to discuss plan for discharge when Dr. Adorno came in to see pt at this time. This RN CM will f/u with pt after physician done with his assessment. Rolando TREVINO CM
--- NOTE | 2020-03-29 11:21 | PCM.DC ---
- Discharge Diagnoses Current Active Problems: Current Active and Chronic Problems (Last Updated 02/11/20 @ 08:[address] Massimo Dye MD) Acute respiratory failure with hypoxia (Acute) NSTEMI (non-ST elevated myocardial infarction) (Acute) You will use the following diet at home:: Cardiac, Other - 1500 cc fluid daily. 2-3 grams sodium daily Your food should be the consistency of: Regular Your liquids should be the consistency of: Regular/Thin Discharge Activity: Return to Normal Activity Call your doctor if you observe: Shortness of breath, Swelling in the ankles, Chest pain Allergies/Adverse Reactions: Allergies aripiprazole [From Abilify] Allergy (Intermediate, Verified 03/05/20 10:05) it over powered me lisinopril Allergy (Intermediate, Verified 03/05/20 10:05) Unknown atorvastatin calcium [From Lipitor] Adverse Reaction (Verified 03/05/20 10:05) Unknown rosiglitazone maleate [From Avandia] Adverse Reaction (Verified 03/05/20 10:05) Other Medications to take at Discharge Aspirin [Aspirin, Baby] 81 mg PO DAILY@0800 06/30/17 Nitroglycerin [Nitrostat] 0.4 mg SL PRN PRN 06/30/17 Multivitamins,Therapeutic [Multivitamin] 1 tab PO DAILY 02/01/18 ascorbic acid (vitamin C) 500 mg tablet 500 mg PO DAILY 09/13/18 Insulin Glargine,Hum.rec.anlog [Soha Bejarano] 34 unit SUBCUT DAILY 04/23/19 Carvedilol [Coreg] 3.125 mg PO BIDCM 06/24/19 Cholecalciferol (Vitamin D3) [Vitamin D3] 5,000 unit PO DAILY 06/24/19 Levothyroxine [Synthroid] 100 mcg PO DAILY 07/24/19 pravastatin 80 mg tablet 80 mg PO DAILY #30 tab 09/16/19 losartan 50 mg tablet 50 mg PO DAILY #30 tab 10/14/19 traMADol [Ultram] 50 mg PO BID PRN PRN 11/12/19 Amlodipine Besylate [Norvasc] 5 mg PO DAILY 02/10/20 Folic Acid 1 mg PO DAILY 02/10/20 Furosemide 40 mg PO BID 02/10/20 Insulin Regular, Human [Humulin R] 8 unit SQ TIDCM 02/10/20 Isosorbide Mononitrate [Isosorbide Mononitrate ER] 30 mg PO DAILY 02/10/20 Isosorbide Mononitrate [Isosorbide Mononitrate ER] 60 mg PO DAILY 02/10/20 metolazone 2.5 mg tablet 2.5 mg PO .COMPLEX #8 tab 02/19/20 potassium chloride 20 mEq tablet,extended release 20 meq PO DAILY 03/05/20 Acetaminophen [Tylenol Tablet] 650 mg PO Q6H PRN PRN tab 03/29/20 Ferrous Sulfate 325 mg PO BID #60 tablet.dr 03/29/20 Isosorbide Mononitrate [Imdur] 60 mg PO QHS #30 tab 03/29/20 Pantoprazole Sodium [Protonix] 40 mg PO BID #60 tab 03/29/20 Ranolazine [Ranexa] 500 mg PO BID #60 tab 03/29/20 The following prescriptions were given: Ferrous Sulfate 325 mg PO BID #60 tablet.dr Transmission Status: Received by [facility] [id number] Isosorbide Mononitrate [Imdur] 60 mg PO QHS #30 tab Transmission Status: Received by [facility] [id number] Pantoprazole Sodium [Protonix] 40 mg PO BID #60 tab Transmission Status: Received by [facility] [id number] Ranolazine [Ranexa] 500 mg PO BID #60 tab Transmission Status: Received by [facility] [id number] Primary Care Physician: Diana Cohen MD [Primary Care Provider] - Please follow up with your Primary Care Physician in: 1-2 weeks Test Results: Test results from this visit will be discussed in further detail at your follow-up appointment, if applicable. Please Follow Up With: [facility] Cardiology When: 2 weeks Proposed Discharge Date: 03/29/20
[2020-03-29] MEDS: Insulin Lispro 100 UNIT/ML INSULN.PEN SC (12:05)
[2020-03-29] MEDS: Ferrous Sulfate 325 MG Tablet PO (12:05)
[2020-03-29] MEDS: Insulin Lispro 100 UNIT/ML INSULN.PEN 8 UNIT SC (12:05)
[2020-03-29 12:15] LABS: Bedside Glucose 208 mg/dL (70-110)
--- NOTE | 2020-03-29 12:31 | PHA.DC.MC ---
Pharmacy Service has performed discharge medication reconciliation and counseling for this patient. 1. FERROUS SULFATE 325MG PO BIDCM 2. PANTOPRAZOLE 40MG PO BID 3. RANOLAZINE 500MG PO BID The patient's discharge medication list was reviewed for discrepancies and discrepancies were resolved. Home Medications Aspirin [Aspirin, Baby] 81 mg PO DAILY@0800 06/30/17 Nitroglycerin [Nitrostat] 0.4 mg SL PRN PRN 06/30/17 Multivitamins,Therapeutic [Multivitamin] 1 tab PO DAILY 02/01/18 ascorbic acid (vitamin C) 500 mg tablet 500 mg PO DAILY 09/13/18 Insulin Glargine,Hum.rec.anlog [[place] Solostar] 34 unit SUBCUT DAILY 04/23/19 Carvedilol [Coreg] 3.125 mg PO BIDCM 06/24/19 Cholecalciferol (Vitamin D3) [Vitamin D3] 5,000 unit PO DAILY 06/24/19 Levothyroxine [Synthroid] 100 mcg PO DAILY 07/24/19 pravastatin 80 mg tablet 80 mg PO DAILY #30 tab 09/16/19 losartan 50 mg tablet 50 mg PO DAILY #30 tab 10/14/19 traMADol [Ultram] 50 mg PO BID PRN PRN 11/12/19 Amlodipine Besylate [Norvasc] 5 mg PO DAILY 02/10/20 Folic Acid 1 mg PO DAILY 02/10/20 Furosemide 40 mg PO BID 02/10/20 Insulin Regular, Human [Humulin R] 8 unit SQ TIDCM 02/10/20 Isosorbide Mononitrate [Isosorbide Mononitrate ER] 30 mg PO DAILY 02/10/20 Isosorbide Mononitrate [Isosorbide Mononitrate ER] 60 mg PO DAILY 02/10/20 metolazone 2.5 mg tablet 2.5 mg PO .COMPLEX #8 tab 02/19/20 potassium chloride 20 mEq tablet,extended release 20 meq PO DAILY 03/05/20 Acetaminophen [Tylenol Tablet] 650 mg PO Q6H PRN PRN tab 03/29/20 Ferrous Sulfate 325 mg PO BID #60 tablet. 03/29/20 Isosorbide Mononitrate [Imdur] 60 mg PO QHS #30 tab 03/29/20 Pantoprazole Sodium [Protonix] 40 mg PO BID #60 tab 03/29/20 Ranolazine [Ranexa] 500 mg PO BID #60 tab 03/29/20 The patient was counseled on the following discharge medications and changes in medications for homegoing were reviewed. The Reason for Use, instructions for use, and potential side effects were reviewed for all new medications. The patient's questions regarding all of their medications were answered. The patient was able to verbally demonstrate an understanding of their discharge medications. Patient counseled by shipyard painter helper, Carol.
--- NOTE | 2020-03-29 12:55 | CASEMGMT ---
Addendum entered by Gissell Cheek 03/29/20 15:06: SW did fax discharge instructions and H&P to [facility]. LIA Matthews Original Note: SW called [facility], message left for community case manager Haleigh letting her know pt was here and is being discharged today. SW also called the coverage line and let them know. SW called [facility] as well as pt has palliative care through [facility]([phone]) and will fax H&P and discharge instructions to [facility]. LIA Matthews
--- NOTE | 2020-03-29 14:16 | NURSING ---
Picc line dc'd per orders. Tip intact. Pressure held for 5 minutes. Vaseline guaze applied with 2x2 over top and secured with tegaderm. Instructed to lie flat x 30 minutes. Verbalizses understanding.
--- NOTE | 2020-03-29 14:39 | CHAPLAIN ---
Type of Pastoral Visit _x__ Initial Visit ___ Follow-up Visit ___ On-call Visit ___ General Patient Visit ___ Spiritual Assessment ___ Family Conference ___ Bereavement ___ Rapid Response ___ Code Blue ___ Other (describe below) Pastoral Care Referral From _x__ Patient ___ Family ___ Nurse ___ Physician ___ Rn Case Manager ___ Photoresist Printer ___ Other (describe below) Sacrament/Intervention _x__ Active listening ___ Anointing ___ Zoroastrian ___ Bereavement ___ Communion _x__ Rosa Maria exploration ___ ___ Life review _x__ Prayer ___ Reconciliation ___ Sacrament of Sick _x__ Supportive presence ___ Wedding ___ Other (describe below) Pastoral Comments patient talkative and explains some of her health history and her recent move; pt is open to spiritual support and prayer
--- NOTE | 2020-03-29 16:41 | DS.PCM_ITS ---
Discharge Date and Diagnosis Date of Admission: 03/26/20 Date of Discharge: 03/29/20 - Primary Discharge Diagnosis Acute Problems: NSTEMI, CAD, prior stent Anemia, iron deficiency acute hypoxic respiratory failure 2/2 Acute on chronic diastolic CHF - Secondary Discharge Diagnosis Chronic Problems: Chronic Problems (Last Updated 02/11/20 @ 08:[address] Massimo Dye MD) Thrombocytopenia (Chronic) CAD (coronary artery disease) (Chronic) Essential hypertension (Chronic) Non-rheumatic aortic stenosis (Chronic) History of coronary artery stent placement (Chronic 06/25/19) PTCA-ostial/prox LCx @ [facility] 11/09/2017 PTCA-Cutting Balloon Atherectomy w/ placement of 2.5 x 20 mm Synergy Stent, Distal LM-into the Ostium of LAD Stented w/ 4.0 x 16 mm Synergy Stent 06/2017PTCA- 04/2017 PCI-LAD with a 2.75x38 Promus Premier drug eluting stent. 12/15/13 RAYMON of Right Posterior Lateral (Mid) wIth 3.0 x 2.8 Cypher, followed upstream with 3.0 x 8 Cypher, RAYMON of Right PDA (Ostial) with 25 x 28 Cypher 09/17/2007; 06/25/2019:LVEF: by LV gram 45-50 % Depressed Left Ventricular systolic function - Mild; Single vessel CAD of the ostial/proximal LCX in stent restenosis. Non obstructive coronary arteries of LM, LAD and RCA. Referred for immediate PCI to Dr Yao at [facility] given high risk nature and proximity to LM and LAD. Chronic systolic (congestive) heart failure (Chronic) Schizophrenia (Chronic) S/P PTCA (percutaneous transluminal coronary angioplasty) (Chronic ~11/09/17) PCI of ostial and mid LCX in-stent restenosis with laser atherectomy, balloon angioplasty per Dr. Rodriguez [facility] 08/20/18 PCI PTCA and laser atherectomy of proximal Circumflex 02/03/2018 PTCA-ostial/prox LCx @ [facility] 11/09/2017 PTCA-Cutting Balloon Atherectomy w/ placement of 2.5 x 20 mm Synergy Stent, Distal LM-into the Ostium of LAD Stented w/ 4.0 x 16 mm Synergy Stent 06/2017PTCA-OM 04/2017 PCI-LAD with a 2.75x38 Promus Premier drug eluting stent. 12/15/13 RAYMON of Right Posterior Lateral (Mid) wIth 3.0 x 2.8 Cypher, followed upstream with 3.0 x 8 Cypher, RAYMON of Right PDA (Ostial) with 25 x 28 Cypher 09/17/2007 History of coronary artery stent placement (Chronic) Atherosclerotic heart disease [place] coronary artery w/angina pectoris (Chronic) PCI of ostial and mid LCX in-stent restenosis with laser atherectomy, balloon angioplasty per Dr. Rodriguez [facility] 08/20/18 PCI PTCA and laser atherectomy of proximal Circumflex 02/03/2018 PTCA-ostail/prox LCx @ [facility] 11/09/2017 PTCA-Cutting Balloon Atherectomy w/ placement of 2.5 x 20 mm Synergy Stent, Distal LM-into the Ostium of LAD Stented w/ 4.0 x 16 mm Synergy Stent 06/2017PTCA-OM 04/2017 PCI-LAD with a 2.75x38 Promus Premier drug eluting stent. 12/15/13 RAYMON of Right Posterior Lateral (Mid) wIth 3.0 x 2.8 Cypher, followed upstream with 3.0 x 8 Cypher, RAYMON of Right PDA (Ostial) with 25 x 28 Cypher 09/17/2007 Pancytopenia (Chronic) Hypothyroidism (Chronic) Hyperlipidemia (Chronic) Diabetes mellitus, type II (Chronic) NSTEMI (non-ST elevated myocardial infarction) (Chronic ~09/16/17) Obesity (BMI 30.0-34.9) (Chronic) Hospital Course and Treatment Imaging Results: IMAGING: RAD/Chest 1 View (Portable) IMPRESSION: Congestive heart failure. Possible superimposed bilateral pneumonia. RAD/Chest 1 View (Portable) IMPRESSION: As compared to prior examination, the CHF has almost completely resolved with minimal residual increased linear markings at the lung bases and blunting of the left costophrenic angle. Consults: Leroy - cardiology Operations: None Procedures: None Summary of Care Provided: Hospital Course: The patient is a 79 year old F with pmhx notable for CAD with recent stent 06/2019, otherwise as above, who presented to the ER with c/o SOB. The patient had a recent echo with EF 55%, and in the ER was felt to have CHF. She also had an elevated troponin, elevated bnp, and lactic acidosis. She was admitted to PCU for NSTEMI and diastolic CHF exacerbation. She had a dramatic troponin elevation to 26. Cardiology was consulted. As per her recent cath she has significant underlying circumflex disease. Unfortunately she had a decline in her Hgb to 6.8, with thrombocytopenia, and iron deficiency. She was transfused with 2 units of blood. Her brillinta was discontinued. Her Hgb remained stable after this. Cardiology recommended increasing her imdur and treating her with diuretics. She responded well with resolution of her SOB. Cardiology also recommended outpatient follow up with possible plans for outpatient heart cath, however they also recomended she first be evaluated for GI bleed. She was advised to follow up with general surgery in 2 weeks for possible endoscopy given her anemia. She was placed on protonix empirically. She was discharged home with home health care in stable condition. She will also need follow up with cardiology as directed and with her PCP in 1-2 weeks. This patient was seen by Brandon Méndez PA-C under the supervision of Dr. Jose. [] - Physical Exam Vitals/I&O's: Vital Signs Temp Pulse Resp BP Pulse Ox 98.2 F 75 15 93/51 L 99 03/29/20 14:30 03/29/20 14:30 03/29/20 14:30 03/29/20 14:30 03/29/20 14:30 Oxygen Flow Rate (L/min) 2 Oxygen Delivery Method Room Air Weight: 197 lb 5.019 oz Body Mass Index (BMI) 33.0 Finger Stick Blood Glucose 270 Intake and Output for Last 24 Hours 03/27/20 03/28/20 03/29/20 23:59 23:59 23:59 Intake Total 2350 / 2350 1550 / 1550 530 / 530 Output Total 2673 / 2673 900 / 900 890 / 890 Balance -323 / -323 650 / 650 -360 / -360 General: Alert, Oriented x3, Cooperative HEENT: Atraumatic, PERRLA, EOMI, Normocephalic Neck: Supple, No JVD, Negative Carotid Bruits Lungs: Clear to auscultation, Normal air movement Cardiovascular: Regular rate, No murmurs Abdomen: Bowel Sounds Present, Soft, Non Tender Extremities: No edema, Capillary Refill Less than 3 Seconds Skin: No rashes, No breakdown Musculoskeletal: No Tenderness to Palpation of Joints or Extremities Neurological: Cranial nerves II-XII grossly intact Psych/Mental Status: Anxious, Alert and oriented to time, place, person, mood and affect Laboratory Results 03/28/20 16:42: POC Glucose 158 H 03/28/20 22:43: POC Glucose 88 03/29/20 05:54: WBC Cancelled, Corrected WBC Cancelled, RBC Cancelled, Hgb Cancelled, Hct Cancelled, MCV Cancelled, MCH Cancelled, MCHC Cancelled, RDW Std Deviation Cancelled, RDW Coeff of Conchis Cancelled, Plt Count Cancelled, MPV Cancelled, Immature Gran % (Auto) Cancelled, Neut % (Auto) Cancelled, Lymph % (Auto) Cancelled, [place] % (Auto) Cancelled, Eos % (Auto) Cancelled, Baso % (Auto) Cancelled, Absolute Neuts (auto) Cancelled, Absolute Lymphs (auto) Cancelled, Total Counted Cancelled, Neutrophils % (Manual) Cancelled, Band Neutrophils % Cancelled, Lymphocytes % (Manual) Cancelled, Monocytes % (Manual) Cancelled, Eosinophils % (Manual) Cancelled, Basophils % (Manual) Cancelled, Metamyelocytes % Cancelled, Myelocytes % Cancelled, Promyelocytes % Cancelled, Blast Cells % Cancelled, Plasma Cell % (Manual) Cancelled, Other Cells % Cancelled, Nucleated RBC % Cancelled, Nucleated RBCs/100 WBC Cancelled, Differential Comment Cancelled, Diff Path Review Cancelled, Hypersegmented Neuts Cancelled, Atypical Lymphocytes Cancelled, Reactive Lymphocytes Cancelled, Smudge Cells Cancelled, Toxic Granulation Cancelled, Toxic Vacuolation Cancelled, Dohle Bodies Cancelled, Avi Rods Cancelled, Platelet Estimate Cancelled, Plt Morphology Comment Cancelled, RBC Morphology Cancelled, Polychromasia Cancelled, Hypochromasia Cancelled, Poikilocytosis Cancelled, Basophilic Stippling Cancelled, Anisocytosis Cancelled, Microcytosis Cancelled, Macrocytosis Cancelled, Spherocytes Cancelled, Sickle Cells Cancelled, Target Cells Cancelled, Tear Drop Cells Cancelled, Ovalocytes Cancelled, Stomatocytes Cancelled, [place] Bodies Cancelled, [place] Cells Cancelled, Bite Cells Cancelled, Crenated Cell Cancelled, Acanthocytes (Spur) Cancelled, Rouleaux Cancelled, Schistocytes Cancelled 03/29/20 05:54: Sodium 139, Potassium 3.7, Chloride 108 H, Carbon Dioxide 25.0, Anion Gap 6, BUN 13, Creatinine 0.64, Estim Creat Clear Calc 42.00, Est GFR (MDRD) Af Amer 114, Est GFR (MDRD) Non-Af 94, BUN/Creatinine Ratio 20.2 H, Glucose 71 L, Calcium 7.7 L 03/29/20 06:40: WBC 3.3 L, RBC 2.78 L, Hgb 8.9 L, Hct 27.6 L, MCV 99.3 H, MCH 32.0, MCHC 32.2, RDW Std Deviation 54.3 H, RDW Coeff of Conchis 15.2 H, Plt Count 117 L, MPV 9.6, Immature Gran % (Auto) 0.300, Neut % (Auto) 49.3, Lymph % (Auto) 36.6, [place] % (Auto) 11.1 H, Eos % (Auto) 2.1, Baso % (Auto) 0.6, Absolute Neuts (auto) 1.6 L, Absolute Lymphs (auto) 1.22, Nucleated RBC % 0 03/29/20 08:42: POC Glucose 129 H 03/29/20 12:02: POC Glucose 208 H Discharge Diet: Low fat/ Low Cholesterol, 2000 mg Sodium Diet Discharge Activity: Return to Normal Activity Call your doctor if you observe: Shortness of breath, Swelling in the ankles, Chest pain Home Medications: Medications to take at Discharge Aspirin [Aspirin, Baby] 81 mg PO DAILY@0800 06/30/17 Nitroglycerin [Nitrostat] 0.4 mg SL PRN PRN 06/30/17 Multivitamins,Therapeutic [Multivitamin] 1 tab PO DAILY 02/01/18 ascorbic acid (vitamin C) 500 mg tablet 500 mg PO DAILY 09/13/18 Insulin Glargine,Hum.rec.anlog [Soha Soldeonna] 34 unit SUBCUT DAILY 04/23/19 Carvedilol [Coreg] 3.125 mg PO BIDCM 06/24/19 Cholecalciferol (Vitamin D3) [Vitamin D3] 5,000 unit PO DAILY 06/24/19 Levothyroxine [Synthroid] 100 mcg PO DAILY 07/24/19 pravastatin 80 mg tablet 80 mg PO DAILY #30 tab 09/16/19 losartan 50 mg tablet 50 mg PO DAILY #30 tab 10/14/19 traMADol [Ultram] 50 mg PO BID PRN PRN 11/12/19 Amlodipine Besylate [Norvasc] 5 mg PO DAILY 02/10/20 Folic Acid 1 mg PO DAILY 02/10/20 Furosemide 40 mg PO BID 02/10/20 Insulin Regular, Human [Humulin R] 8 unit SQ TIDCM 02/10/20 Isosorbide Mononitrate [Isosorbide Mononitrate ER] 30 mg PO DAILY 02/10/20 Isosorbide Mononitrate [Isosorbide Mononitrate ER] 60 mg PO DAILY 02/10/20 metolazone 2.5 mg tablet 2.5 mg PO .COMPLEX #8 tab 02/19/20 potassium chloride 20 mEq tablet,extended release 20 meq PO DAILY 03/05/20 Acetaminophen [Tylenol Tablet] 650 mg PO Q6H PRN PRN tab 03/29/20 Ferrous Sulfate 325 mg PO BID #60 tablet.dr 03/29/20 Isosorbide Mononitrate [Imdur] 60 mg PO QHS #30 tab 03/29/20 Pantoprazole Sodium [Protonix] 40 mg PO BID #60 tab 03/29/20 Polyethylene Glycol 3350 [Miralax] 17 gm PO DAILY PRN PRN #30 packet 03/29/20 Ranolazine [Ranexa] 500 mg PO BID #60 tab 03/29/20 Following Prescriptions Were Given to Patient: Ferrous Sulfate 325 mg PO BID #60 tablet. Transmission Status: Received by [place] [id number] Isosorbide Mononitrate [Imdur] 60 mg PO QHS #30 tab Transmission Status: Received by [place] [id number] Polyethylene Glycol 3350 [Miralax] 17 gm PO DAILY PRN PRN #30 packet PRN Reason: Constipation Transmission Status: Received by [place] [id number] Pantoprazole Sodium [Protonix] 40 mg PO BID #60 tab Transmission Status: Received by [place] [id number] Ranolazine [Ranexa] 500 mg PO BID #60 tab Transmission Status: Received by [place] [id number] Primary Care Physician: Diana Cohen MD [Primary Care Provider] - Please follow up with your Primary Care Physician in: 1-2 weeks Please Follow Up With: [facility] Cardiology When: 2 weeks Please Follow Up With: Diana Cohen MD When: 1-2 weeks Please Follow Up With: Ian Burnett MD When: 2 weeks Disposition: Home with Home Health Minutes spent on discharge:: 35 Patient Condition:: Stable Medical Necessity - Tobacco Use Smoking Status: Never smoker Meaningful Use Info Meaningful Use Diagnoses (Choose all that apply): CHF - CHF CAROL/ARB ordered at discharge?: Yes Documented LVEF (%): 55
--- NOTE | 2020-03-30 15:19 | CCN.REFER ---
AGREES TO [facility].
--- NOTE | 2020-03-30 16:11 | CASEMGMT ---
BELINDA TRACEY DC PHONE CALL DC DATE: 03/29/2020 DC DISPOSITION: Home with CCN Referral DC DIAGNOSIS: NSTEMI, CAD LACE/STRATA: 13 F/U APPTS MADE PRIOR TO DC: yes-office will call patient for appointment PRESCRIPTIONS ACQUIRED BY PT: yes Intro role of CM to patient via phone. Pt denies any questions re: instructions, follow up or medicatons. No care improvement suggestions were given. Agustin NANCE RN ACM
== END 2020-03-29 14:51 | disposition home health service (06) | DRG 280 ==
LOC: ED 12:23 → PCU 13:06
PROVIDERS: Admitting Provider Family Medicine; Emergency Provider Emergency Medicine; PCP Internal Medicine; Visit Provider Internal Medicine
DX: I11.0 Hypertensive heart disease with heart failure (principal); I21.4 Non-ST elevation (NSTEMI) myocardial infarction; J96.01 Acute respiratory failure with hypoxia; J96.02 Acute respiratory failure with hypercapnia; D61.818 Other pancytopenia; E87.2 Acidosis; I50.43 Acute on chronic combined systolic (congestive) and diastolic (congestive) heart failure; D50.0 Iron deficiency anemia secondary to blood loss (chronic); I25.119 Atherosclerotic heart disease of native coronary artery with unspecified angina pectoris; I35.0 Nonrheumatic aortic (valve) stenosis; F20.9 Schizophrenia, unspecified; E03.9 Hypothyroidism, unspecified; E78.5 Hyperlipidemia, unspecified; E11.9 Type 2 diabetes mellitus without complications; E87.6 Hypokalemia; E66.9 Obesity, unspecified; Z68.33 Body mass index [BMI] 33.0-33.9, adult; I25.2 Old myocardial infarction; Z95.5 Presence of coronary angioplasty implant and graft; Z79.4 Long term (current) use of insulin; Z79.82 Long term (current) use of aspirin; Z79.890 Hormone replacement therapy; Z79.02 Long term (current) use of antithrombotics/antiplatelets; Z79.899 Other long term (current) drug therapy
CPT/HCPCS: 36415; 36569; 71045; 80048; 80053; 81001; 82728; 82962; 83540; 83550; 83605; 83735; 83880; 84100; 84484; 85014; 85018; 85025; 85610; 85730; 86850; 86900; 86901; 86920; 93005; 94002; 97110; 97116; 97162; 97165; 97530; 97802; 99285; P9016; A4216; J1940

== ENCOUNTER 2020-04-28 08:19 | Day surgery (SDC) | payer MEDICARE, MEDICAID, SELFPAY ==
--- NOTE | 2020-04-15 02:56 | HP_ITS ---
Intake Vital Signs 04/15/20 BP 114/66 04/15/20 Blood Pressure Location Rt brachial 04/15/20 Position Sitting 04/15/20 Respiration 18 04/15/20 Pulse 69 04/15/20 Temp 99.0 F 04/15/20 Temp Source Temporal 04/15/20 Pulse Oximetry (%) 98 04/15/20 Oxygen Delivery Method room air Intake Visit Reasons: C-Scope Chief Complaint: anemia Communications Maintainer Required: No Is patient in pain?: No Allergies aripiprazole [From Abilify] Allergy (Intermediate, Verified 04/15/20 13:51) it over powered me lisinopril Allergy (Intermediate, Verified 04/15/20 13:51) Unknown atorvastatin calcium [From Lipitor] Adverse Reaction (Verified 04/15/20 13:51) Unknown rosiglitazone maleate [From Avandia] Adverse Reaction (Verified 04/15/20 13:51) Other Medications Aspirin [Aspirin, Baby] 81 mg PO DAILY@0800 06/30/17 [History Confirmed 04/15/20] Nitroglycerin [Nitrostat] 0.4 mg SL PRN PRN 06/30/17 [History Confirmed 04/15/20] Multivitamins,Therapeutic [Multivitamin] 1 tab PO DAILY 02/01/18 [History Confirmed 04/15/20] ascorbic acid (vitamin C) 500 mg tablet 500 mg PO DAILY 09/13/18 [History Confirmed 04/15/20] Insulin Glargine,Hum.rec.anlog [Soha Bejarano] 34 unit SUBCUT DAILY 04/23/19 [History Confirmed 04/15/20] Carvedilol [Coreg] 3.125 mg PO BIDCM 06/24/19 [History Confirmed 04/15/20] Cholecalciferol (Vitamin D3) [Vitamin D3] 5,000 unit PO DAILY 06/24/19 [History Confirmed 04/15/20] Levothyroxine [Synthroid] 100 mcg PO DAILY 07/24/19 [History Confirmed 04/15/20] pravastatin 80 mg tablet 80 mg PO DAILY #30 tab 09/16/19 [Rx Confirmed 04/15/20] losartan 50 mg tablet 50 mg PO DAILY #30 tab 10/14/19 [Rx Confirmed 04/15/20] traMADol [Ultram] 50 mg PO BID PRN PRN 11/12/19 [History Confirmed 04/15/20] Amlodipine Besylate [Norvasc] 5 mg PO DAILY 02/10/20 [History Confirmed 04/15/20] Folic Acid 1 mg PO DAILY 02/10/20 [History Confirmed 04/15/20] Furosemide 40 mg PO BID 02/10/20 [History Confirmed 04/15/20] Insulin Regular, Human [Humulin R] 8 unit SQ TIDCM 02/10/20 [History Confirmed 04/15/20] Isosorbide Mononitrate [Isosorbide Mononitrate ER] 30 mg PO DAILY 02/10/20 [History Confirmed 04/15/20] Isosorbide Mononitrate [Isosorbide Mononitrate ER] 60 mg PO DAILY 02/10/20 [History Confirmed 04/15/20] metolazone 2.5 mg tablet 2.5 mg PO .COMPLEX #8 tab 02/19/20 [Rx Confirmed 04/15/20] potassium chloride 20 mEq tablet,extended release 20 meq PO DAILY 03/05/20 [History Confirmed 04/15/20] Acetaminophen [Tylenol Tablet] 650 mg PO Q6H PRN PRN tab 03/29/20 [Rx Confirmed 04/15/20] Ferrous Sulfate 325 mg PO BID #60 tablet.dr 03/29/20 [Rx Confirmed 04/15/20] Isosorbide Mononitrate [Imdur] 60 mg PO QHS #30 tab 03/29/20 [Rx Confirmed 04/15/20] Pantoprazole Sodium [Protonix] 40 mg PO BID #60 tab 03/29/20 [Rx Confirmed 04/15/20] Polyethylene Glycol 3350 [Miralax] 17 gm PO DAILY PRN PRN #30 packet 03/29/20 [Rx Confirmed 04/15/20] Ranolazine [Ranexa] 500 mg PO BID #60 tab 03/29/20 [Rx Confirmed 04/15/20] Is last menstrual period known: No Post menopausal: Yes Patient : No PFSH Medical History Essential hypertension (Chronic) Non-rheumatic aortic stenosis (Chronic) Chronic systolic (congestive) heart failure (Chronic) Schizophrenia (Chronic) Atherosclerotic heart disease [place] coronary artery w/angina pectoris (Chronic) Pancytopenia (Chronic) Hypothyroidism (Chronic) Hyperlipidemia (Chronic) Diabetes mellitus, type II (Chronic) NSTEMI (non-ST elevated myocardial infarction) (Chronic ~09/16/17) Obesity (BMI 30.0-34.9) (Chronic) Anemia (Chronic) 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) Mitral valve insufficiency (Inactive) Non-rheumatic mitral regurgitation (Inactive) Nonrheumatic tricuspid valve regurgitation (Inactive) Tricuspid valve insufficiency (Inactive) Surgical History History of coronary artery stent placement (Chronic 06/25/19) S/P PTCA (percutaneous transluminal coronary angioplasty) (Chronic ~11/09/17) History of coronary artery stent placement (Chronic) History of appendectomy (Resolved) History of cholecystectomy (Resolved) History of tonsillectomy and adenoidectomy (Resolved) History of spinal fusion (Inactive) Family History Mother CAD (coronary artery disease) Father CAD (coronary artery disease) Social History (Updated 04/15/20 @ 14:[address] Yvan Hatfield MD) Smoking Status: Never smoker alcohol intake: current details: occasional substance use type: does not use diet: low salt caffeine: No what type of physical activity do you participate in: walking frequency: daily seatbelt use: always do you feel safe at home: Yes HPI HPI Surgical H&P: Yes HPI: DANI JOHNSON, is a 79 F who presents to the office today for Evaluation for endoscopy. Patient has been suffering for anemia for a while. She has been hospitalized for exacerbation of CHF has been requiring blood transfusions for hemoglobins in the 6.8 range. Her Brilinta has been discontinued and cardiology have plans to do an outpatient heart cath but they also recommended that she first be evaluated for GI bleed. And she was advised to follow-up with me in 2 weeks for a possible endoscopy given her anemia. And she was subsequently placed on Protonix empirically. She does not have a follow-up with cardiology until the end of this month. Patient has been placed on iron she states that her stools are dark secondary to this. She has not noticed any bright red rectal bleeding or black tarry stools. ROS General General: Yes fatigue; no weight change, appetite, colon cancer, breast cancer or weakness HEENT HEENT: Yes difficulty swallowing; no eye injury, eye surgery, swollen glands or hoarseness Endo Endocrine: Yes thyroid disease and diabetes mellitus; no thyroid cancer, Hair loss, heat intolerance or cold intolerance Musc Musculoskeletal: Yes back problems and arthritis; no rheumatoid arthritis, gout or joint pain Cardio Cardiovascular: Yes murmur, heart disease, high blood pressure, heart attack and heart stent; no pacemaker, atrial fibrillation, palpitations, shortness of breat with exertion or chest pain Psych Psychiatric: No depression, anxiety or hearing voices Resp Respiratory: Yes shortness of breath, No sleep apnea, No cough, No COPD, No asthma, No emphysema, No wheezing Gastro Gastrointestinal: No abdominal pain, Yes nausea or vomiting, No diarrhea, Yes constipation, No blood in stool, No acid reflux, No hemorrhoids, No ulcers, Yes gallbladder problem, No black,tarry stools Rommel Hematologic: Yes blood thinners, No blood disorders, Yes bleeding, Yes anemia, No blood clots Neuro Neurologic: No weakness Exam Const General: no acute distress, well developed, well hydrated Orientation: oriented to person, oriented to place, oriented to time [facility] Head: normocephalic, atraumatic Ears: external ears normal Mouth: moist mucous membranes Eyes Sclera: sclerae normal Pupils: normal by confrontation Neck Neck: no lymphadenopathy noted Neck mass: No Thyroid: thyroid normal, symmetrical Chest Chest palpation & inspection: normal inspection of the chest Resp Effort & Inspection: normal respiratory effort Auscultation: clear to auscultation bilaterally Percussion: percussion normal Cardio Rate: regular rate Rhythm: regular rhythm Heart Sounds: murmur GI Palpation: soft, no hepatosplenomegaly, no masses, nontender Rectal Exam: other Other: Rectal exam deferred. Extrem General: normal to inspection, no clubbing, cyanosis or edema Assessment & Plan Problems 1. Iron deficiency anemia due to chronic blood loss D50.0 2. Gastrointestinal hemorrhage, unspecified gastrointestinal hemorrhage type K92.2 Plan I have discussed the above with the patient. I have offered the patient colonoscopy As well as an EGD for evaluation. I have explained the risks/benefits of the procedure and described the procedure. I have discussed the risks with the patient, including but not limited to: infection, bleeding, perforation of the GI tract requiring emergency surgery, inability to complete the procedure, injury to any internal organs, complications of anesthesia, etc. - the patient understands and agrees to proceed. I have answered all the patient's questions to the patient's satisfaction and the patient has no further questions. The patient has been given instructions for the colon cleansing preparation. I will send Dr. Kumar this note to make sure that it is okay to do her endoscopies prior to her being evaluated by him since she had been being seen by Dr. Malik who is no longer here. Orders Orders: Colonoscopy Today EGD Today Coding Level of Care Code Off vis,new,level 3 Diagnoses Iron deficiency anemia due to chronic blood loss D50.0 ??Anemia type: iron deficiency ??Iron deficiency anemia type: chronic blood loss Gastrointestinal hemorrhage, unspecified gastrointestinal hemorrhage type K92.2 ??GI bleed type/associated pathology: unspecified gastrointestinal hemorrhage type COVID (Procedure Consent) Procedure Criteria Procedure Criteria: Yes Elective The surgeon/proceduralist and patient have discussed in detail the risk of exposure to and/or potential harm posed by the COVID-19 virus with having a surgery/procedure at this time versus the risk of? delaying the surgery/procedure. It is not possible to know either the risk of delaying the surgery or procedure or chance of getting an infection with perfect accuracy, but a joint decision was made between the patient and the surgeon/proceduralist ?to proceed at this time with the scheduled surgery/procedure as indicated on the consent form. 04/15/20 1456 <Electronically signed by Yvan boyle MD> Date _ Yvan Hatfield MD I have re-examined the patient. There are no clinical changes since date of exam.
[2020-04-15 13:54] VITALS: BMI 33.0
[2020-04-28 08:45] VITALS: BP 112/54; PULSE 70; RESP 16; TEMP 37.7; O2SAT 100; BMI 31.6
[2020-04-28] MEDS: Lactated Ringers 1,000 ML 75 ML IV (09:20)
[2020-04-28 09:21] LABS: Bedside Glucose 112 mg/dL (70-110)
--- NOTE | 2020-04-28 10:15 | COLBX_PTH ---
PATIENT: DANI JOHNSON LOC: EN U#:[id number] AGE/SX: 79/F ROOM: RE04/28/[address]: Dr. Yvan Hatfield MD : 1940 BED: DIS: 04/28/2020 SPEC #: [id number] RECD: 04/28/20 15:06 STATUS: KELBY ALINA #: [id number] RODOLFO: 04/28/20 10:[address]: Yvan Hatfield DEPT: SURGICAL PATHOLOGY RECD BY: Irma Rangel ENTERED: 04/29/20 09:16 SP TYPE: COLON BX OTHR DR: Dr. Diana Cohen MD Tissues: A - Gastric mucous membrane B - Transverse colon C - Transverse colon D - Sigmoid colon biopsy Procedures: Special Stain Group I Surgery Specimen Level IV GMS Stain (control) HEADER OPERATION: Colonoscopy, EGD ([facility]) PRE-OP DIAGNOSIS: Iron deficiency anemia, GI hemorrhage TISSUE SUBMITTED: A - Antrum biopsy for histo and H. pylori, B - Proximal transverse colon polyps (3), C - Mid transverse colon polyp, D - Sigmoid polyp MICROSCOPIC DIAGNOSIS A. Gastric antrum, biopsy: Chronic gastritis, moderate. Intestinal metaplasia. No evidence of dysplasia. Fragments of detached squamous mucosa with fungal organisms consistent with Marlena. See comment. B. Transverse colon polyps, biopsy: Fragments of tubular adenoma. C. Mid transverse colon polyp, biopsy: Fragments of tubular adenoma. D. Sigmoid colon polyp, biopsy: Fragments of tubular adenoma. AM:melvin 04/30/20 COMMENT A. The results of immunohistochemistry for Helicobacter pylori will be reported separately ([id number]). Immunohistochemistry ([id number]) supports the above diagnosis. MICROSCOPIC DESCRIPTION Slides are reviewed. GROSS DESCRIPTION A - Received in fixative is one container labeled with the patient's name and designated antrum biopsy. The specimen consists of one irregular fragment of light dorantes soft tissue that measures 0.7 x 0.3 x 0.1 cm. The specimen is totally submitted in one cassette. B - Received in fixative is one container labeled with the patient's name and designated proximal transverse polyp. The specimen consists of a piece of dorantes-pink polyp measuring 0.9 x 0.5 x 0.3 cm. The specimen is totally submitted in one cassette. C - Received in fixative is one container labeled with the patient's name and designated mid transverse polyp. The specimen consists of multiple irregular fragments of dorantes-pink soft tissue mixed with fecal material that in aggregate measure 1.5 x 0.6 x 0.2 cm. The specimen is totally submitted in one cassette. D - Received in fixative is one container labeled with the patient's name and designated sigmoid polyp. The specimen consists of two fragments of dorantes-pink polyp that in aggregate measure 1 x 0.8 x 0.3 cm. The specimen is totally submitted in one cassette. / SJ:rg 04/29/20 TC:5 [facility]: [id number] x4, [id number] ADDENDUM ADDENDUM 06/01/2020 11:46 ADDENDUM 06/01/2020 11:46 ADDENDUM 06/01/2020 11:46 ADDENDUM 06/01/2020 11:46 ADDENDUM 06/01/2020 11:46 A. GMS stain with matched control supports the diagnosis.
--- NOTE | 2020-04-28 10:15 | IMM_PTH ---
PATIENT: DANI JOHNSON LOC: EN U#:[id number] AGE/SX: 79/F ROOM: RE04/28/[address]: Dr. Yvan Hatfield MD : 1940 BED: DIS: 04/28/2020 SPEC #: [id number] RECD: 04/29/20 09:26 STATUS: KELBY REQ #: [id number] RODOLFO: 04/28/20 10:[address]: Yvan Hatfield DEPT: IMMUNOHISTOCHEMISTRY RECD BY: Yaritza Mirza ENTERED: 04/29/20 09:27 SP TYPE: IMMUNO OTHR DR: Dr. Diana Cohen MD Tissues: A - Stomach, NOS Procedures: H Pylori (initial) KI-67 (add) P53 (add) PHYSICIAN & INSTITUTION [place] [id number] SPECIMEN INFORMATION: Tissue Source: A - Antrum biopsy Clinical Info: Iron deficiency anemia, GI hemorrhage Specimen Number: [id number] CPT code: 77054, 51947 x2 METHODOLOGY: Deparaffinized sections of prefer/formalin-fixed tissue or PAP/DQ stained slides are incubated with monoclonal/polyclonal antibodies/oligonucleotide probes. Localization is made via biotin free immunoperoxidase method. Appropriate controls are performed and reacted as expected. Results on target cell population are indicated in the following table: RESULTS: ANTIBODY / CLONE RESULT Block A H Pylori (polyclonal) negative P53 (DO-7) negative Ki-67 (30-9) negative These tests were developed and their performance characteristics determined by [facility]. They may not have been cleared or approved by the U.S. Food and Drug Administration. The FDA has determined that such clearance or approval is not necessary. The above immunohistochemical/dualISH markers are ordered and reviewed by the pathologist. INTERPRETATION: A. Antrum biopsy: Negative for Helicobacter pylori organisms. No evidence of dysplasia. AM:melvin 05/03/20
[2020-04-28 11:00] VITALS: BP 102/51; BP 112/54; PULSE 71; RESP 16; TEMP 37.2; O2SAT 100
--- NOTE | 2020-04-28 11:03 | OP.CCLET_ITS ---
04/28/2020 Diana Cohen [address] [id number] Re : Upper GI endoscopy procedure for Jaida Gordon Dear Dr. Cohen This procedure was performed on Tuesday, April 28, 2020. My impressions and recommendations are as follows: Impressions : - Normal esophagus. No specimens collected. - Erythematous mucosa in the prepyloric region of the stomach. Biopsied. - Normal examined duodenum. No specimens collected. Recommendations : - Discharge patient to home. - Resume previous diet. - Continue present medications. - Await pathology results. - Repeat upper endoscopy (date not yet determined) for surveillance. - Return to my office in 1 week. My findings are described in the full procedure note, which is enclosed. If I can be of further assistance, please feel free to contact me at Doctor phone number(s): , Fax: [phone], Work: . Sincerely, MD Yvan Jackson MD 04/28/2020 11:02:52 AM This report has been signed electronically.
--- NOTE | 2020-04-28 11:03 | OP.EGD_ITS ---
Patient Name: Jaida Gordon Procedure Date: 04/28/2020 10:03 AM Date of : 1940 Age: 79 Procedure: Upper GI endoscopy Indications: Iron deficiency anemia, Gastrointestinal bleeding of unknown origin Providers: Yvan Hatfield MD Referring MD: Diana Cohen Medicines: See the Anesthesia note for documentation of the administered medications Patient Profile: This is an 79 year old female. Refer to note in patient chart for documentation of history and physical. Complications: No immediate complications. Procedure: Pre-Anesthesia Assessment: - Prior to the procedure, a History and Physical was performed, and patient medications and allergies were reviewed. The patient's tolerance of previous anesthesia was also reviewed. The risks and benefits of the procedure and the sedation options and risks were discussed with the patient. All questions were answered, and informed consent was obtained. Prior Anticoagulants: The patient has taken aspirin, last dose was 7 days prior to procedure. ASA Grade Assessment: III - A patient with severe systemic disease. After reviewing the risks and benefits, the patient was deemed in satisfactory condition to undergo the procedure. After obtaining informed consent, the endoscope was passed under direct vision. Throughout the procedure, the patient's blood pressure, pulse, and oxygen saturations were monitored continuously. The gastroscope was introduced through the mouth, and advanced to the second part of duodenum. The upper GI endoscopy was accomplished without difficulty. The patient tolerated the procedure well. Scope In: 10:24:59 AM Scope Out: 10:28:45 AM Total Procedure Duration Time 0 hours 3 minutes 46 seconds Findings: The examined esophagus was normal. No biopsies or other specimens were collected for this exam. Localized mildly erythematous mucosa without bleeding was found in the prepyloric region of the stomach. Biopsies were taken with a cold forceps for Helicobacter pylori testing. The examined duodenum was normal. No biopsies or other specimens were collected for this exam. Impression: - Normal esophagus. No specimens collected. - Erythematous mucosa in the prepyloric region of the stomach. Biopsied. - Normal examined duodenum. No specimens collected. Recommendation: - Discharge patient to home. - Resume previous diet. - Continue present medications. - Await pathology results. - Repeat upper endoscopy (date not yet determined) for surveillance. - Return to my office in 1 week. Procedure Code(s): --- Professional --- 29954, Esophagogastroduodenoscopy, flexible, transoral; with biopsy, single or multiple Diagnosis Code(s): --- Professional --- K31.89, Other diseases of stomach and duodenum D50.9, Iron deficiency anemia, unspecified K92.2, Gastrointestinal hemorrhage, unspecified CPT copyright 2017 [employer] [place] [employer]. All rights reserved. The codes documented in this report are preliminary and upon project scientist review may be revised to meet current compliance requirements. MD Yvan Jackson MD 04/28/2020 11:02:52 AM This report has been signed electronically. Number of Addenda: 0 Note Initiated On: 04/28/2020 10:03 AM
[2020-04-28 11:05] VITALS: BP 112/54; BP 95/48; PULSE 70; RESP 16; O2SAT 100
--- NOTE | 2020-04-28 11:06 | OP.COLON_ITS ---
Patient Name: Jaida Gordon Procedure Date: 04/28/2020 10:28 AM Date of : 1940 Age: 79 Procedure: Colonoscopy Indications: Rectal bleeding, Iron deficiency anemia Providers: vYan Hatfield MD Referring MD: Diana Cohen Medicines: See the Anesthesia note for documentation of the administered medications Patient Profile: This is an 79 year old female. Refer to note in patient chart for documentation of history and physical. Last Colonoscopy: date unknown. Unable to locate last colonoscopy report. Complications: No immediate complications. Procedure: Pre-Anesthesia Assessment: - Prior to the procedure, a History and Physical was performed, and patient medications and allergies were reviewed. The patient's tolerance of previous anesthesia was also reviewed. The risks and benefits of the procedure and the sedation options and risks were discussed with the patient. All questions were answered, and informed consent was obtained. Prior Anticoagulants: The patient has taken aspirin, last dose was 7 days prior to procedure. ASA Grade Assessment: III - A patient with severe systemic disease. After reviewing the risks and benefits, the patient was deemed in satisfactory condition to undergo the procedure. After I obtained informed consent, the scope was passed under direct vision. Throughout the procedure, the patient's blood pressure, pulse, and oxygen saturations were monitored continuously. The adult colonoscope was introduced through the anus and advanced to the cecum, identified by appendiceal orifice and ileocecal valve. The colonoscopy was performed without difficulty. The patient tolerated the procedure well. The quality of the bowel preparation was good. Scope In: 10:30:31 AM Scope Withdrawal Time 0 hours 14 minutes 42 seconds Scope Out: 10:56:08 AM Total Procedure Duration Time 0 hours 25 minutes 37 seconds Findings: Five sessile polyps were found in the rectum and transverse colon. The polyps were 3 to 14 mm in size. These polyps were removed with a hot snare. Resection and retrieval were complete. A few small-mouthed diverticula were found in the sigmoid colon and descending colon. No biopsies or other specimens were collected for this exam. The exam was otherwise without abnormality. Impression: - Five 3 to 14 mm polyps in the rectum and in the transverse colon, removed with a hot snare. Resected and retrieved. - Diverticulosis in the sigmoid colon and in the descending colon. No specimens collected. - The examination was otherwise normal. Recommendation: - Discharge patient to home. - Resume previous diet. - Continue present medications. - Await pathology results. - Repeat colonoscopy in 5 years for surveillance. - Return to my office in 1 week. Procedure Code(s): --- Professional --- 94669, Colonoscopy, flexible; with removal of tumor(s), polyp(s), or other lesion(s) by snare technique Diagnosis Code(s): --- Professional --- K62.1, Rectal polyp D12.3, Benign neoplasm of transverse colon (hepatic flexure or splenic flexure) K62.5, Hemorrhage of anus and rectum D50.9, Iron deficiency anemia, unspecified K57.30, Diverticulosis of large intestine without perforation or abscess without bleeding CPT copyright 2017 [employer] [place] [employer]. All rights reserved. The codes documented in this report are preliminary and upon business objects consultant review may be revised to meet current compliance requirements. MD Yvan Jackson MD 04/28/2020 11:06:25 AM This report has been signed electronically. Number of Addenda: 0 Note Initiated On: 04/28/2020 10:28 AM
--- NOTE | 2020-04-28 11:07 | OP.CCLET_ITS ---
04/28/2020 Diana Cohen [address] [id number] Re : Colonoscopy procedure for Jaida Gordon Dear Dr. Cohen This procedure was performed on Tuesday, April 28, 2020. My impressions and recommendations are as follows: Impressions : - Five 3 to 14 mm polyps in the rectum and in the transverse colon, removed with a hot snare. Resected and retrieved. - Diverticulosis in the sigmoid colon and in the descending colon. No specimens collected. - The examination was otherwise normal. Recommendations : - Discharge patient to home. - Resume previous diet. - Continue present medications. - Await pathology results. - Repeat colonoscopy in 5 years for surveillance. - Return to my office in 1 week. My findings are described in the full procedure note, which is enclosed. If I can be of further assistance, please feel free to contact me at Doctor phone number(s): , Fax: [phone], Work: . Sincerely, MD Yvan Jackson MD 04/28/2020 11:06:25 AM This report has been signed electronically.
[2020-04-28 11:10] VITALS: BP 112/54; BP 97/51; PULSE 70; RESP 16; O2SAT 100
[2020-04-28 11:15] VITALS: BP 110/49; BP 112/54; PULSE 71; RESP 16; TEMP 36.7; O2SAT 100
[2020-04-28 11:58] VITALS: BP 112/54
== END 2020-04-28 12:13 | disposition home or self-care (01) ==
LOC: EN 08:19 → AC 08:20
PROVIDERS: Anesthesiology; PCP Internal Medicine; Referring Provider Internal Medicine; Visit Provider Surgery
PROC: 0DJD8ZZ Inspection of Lower Intestinal Tract, Via Natural or Artificial Opening Endoscopic (ICD-10-PCS; CPT 45378; principal; 2020-04-28 10:10)
DX: D12.3 Benign neoplasm of transverse colon (principal); D12.5 Benign neoplasm of sigmoid colon; K62.1 Rectal polyp; K31.89 Other diseases of stomach and duodenum; K92.2 Gastrointestinal hemorrhage, unspecified; D50.0 Iron deficiency anemia secondary to blood loss (chronic); D61.818 Other pancytopenia; Z11.59 Encounter for screening for other viral diseases; K21.9 Gastro-esophageal reflux disease without esophagitis; K75.81 Nonalcoholic steatohepatitis (NASH); I25.119 Atherosclerotic heart disease of native coronary artery with unspecified angina pectoris; I08.3 Combined rheumatic disorders of mitral, aortic and tricuspid valves; I11.0 Hypertensive heart disease with heart failure; I50.9 Heart failure, unspecified; I25.2 Old myocardial infarction; E03.9 Hypothyroidism, unspecified; E78.5 Hyperlipidemia, unspecified; E11.9 Type 2 diabetes mellitus without complications; E66.9 Obesity, unspecified; Z68.31 Body mass index [BMI] 31.0-31.9, adult; Z95.5 Presence of coronary angioplasty implant and graft; Z79.82 Long term (current) use of aspirin; Z79.4 Long term (current) use of insulin; Z79.899 Other long term (current) drug therapy; Z86.73 Personal history of transient ischemic attack (TIA), and cerebral infarction without residual deficits
CPT/HCPCS: 43239; 45385; 82962; 87635; 88305; 88312; 88341; 88342; C9803; J7120; J2405; U0003

== ENCOUNTER → 2020-04-29 11:41 | Outpatient (CLI) | payer MEDICARE, MEDICAID, SELFPAY ==
[2020-04-29 10:38] VITALS: BMI 32.1
--- NOTE | 2020-04-29 11:44 | RAD_ITS ---
STUDY: X-RAY CHEST REASON FOR EXAM: Female, 79 years old. Shortness of breath. History of MS with coronary stenting. TECHNIQUE: PA and lateral views of the chest. COMPARISON: 03/26/2020. FINDINGS: The lungs are well expanded and free of infiltrate or mass. There is complete resolution of the CHF noted on the prior study. There is no demonstrated pleural abnormality. Normal size heart. Normal mediastinum and rell. Normal visualized pulmonary arteries. There is atherosclerotic calcification of the aortic arch with tortuosity. There are diffuse degenerative changes of the visualized thoracic spine. Normal visualized ribs, clavicles, and shoulders. There is no demonstrated abnormality of the visualized soft tissue structures of the upper abdomen. RAD/Chest PA and Lateral IMPRESSION: Degenerative changes, as described above. No demonstrated acute cardiopulmonary process. Electronically Signed: Garrett Pineda DO at 20:39 EDT Tel [phone], Service support ,
== END ==
PROVIDERS: PCP Internal Medicine; Referring Provider Physician Assistant Medical; Visit Provider Physician Assistant Medical
DX: I50.22 Chronic systolic (congestive) heart failure (principal)
CPT/HCPCS: 71046

== ENCOUNTER 2020-05-06 06:13 | Observation (INO) | payer MEDICARE, MEDICAID, SELFPAY ==
[2020-04-29 10:38] VITALS: BMI 32.1
[2020-05-06] VITALS (18 sets, daily range): BP systolic 97–123; BP diastolic 41–55; PULSE 61–82; RESP 12–21; TEMP 36.1–36.8; O2SAT 97–100; BMI 32.3; BMI 31.1; BMI 31.2
--- NOTE | 2020-05-06 06:47 | ED.VIS.GEN ---
History of Present Illness Chief Complaint: GI Bleed Informant: Patient Narrative: She stated that she started having some rectal bleeding bright red blood this morning. She woke up at 4:00 this morning and went to the bathroom and had right red blood per rectum. She just had a colonoscopy approximately a week ago. She had 5 polyps removed. She resumed her oral Brilinta yesterday. She had small biopsy taken via EGD as well of her stomach mucosa. She followed up with Dr. Hatfield yesterday. History of iron deficient anemia requiring a few transfusions in the last few months. This is the reason why she had the scope in the first place. She was able to clean herself up called EMS for further evaluation. Denies any chest pain or abdominal pain or nausea or vomiting. - Past Medical History (1) Acute [id number] myocardial infarction Status: Acute (2) Acute on chronic CHF Status: Acute (3) Acute respiratory failure with hypoxia Status: Acute (4) Acute respiratory failure with hypoxia and hypercapnia Status: Acute (5) Lactic acidosis Status: Acute (6) NSTEMI (non-ST elevated myocardial infarction) Status: Acute (7) Atherosclerotic heart disease [place] coronary artery w/angina pectoris Status: Chronic Comment: PCI of ostial and mid LCX in-stent restenosis with laser atherectomy, balloon angioplasty per Dr. Rodriguez [facility] 08/20/18 PCI PTCA and laser atherectomy of proximal Circumflex 02/03/2018 PTCA-ostail/prox LCx @ [facility] 11/09/2017 PTCA-Cutting Balloon Atherectomy w/ placement of 2.5 x 20 mm Synergy Stent, Distal LM-into the Ostium of LAD Stented w/ 4.0 x 16 mm Synergy Stent 06/2017PTCA-OM 04/2017 PCI-LAD with a 2.75x38 Promus Premier drug eluting stent. 12/15/13 RAYMON of Right Posterior Lateral (Mid) wIth 3.0 x 2.8 Cypher, followed upstream with 3.0 x 8 Cypher, RAYMON of Right PDA (Ostial) with 25 x 28 Cypher 09/17/2007 (8) CAD (coronary artery disease) Status: Chronic (9) Chronic systolic (congestive) heart failure Status: Chronic (10) Diabetes mellitus, type II Status: Chronic (11) Essential hypertension Status: Chronic (12) History of coronary artery stent placement Status: Chronic (13) History of coronary artery stent placement Status: Chronic Comment: PTCA-ostial/prox LCx @ [facility] 11/09/2017 PTCA-Cutting Balloon Atherectomy w/ placement of 2.5 x 20 mm Synergy Stent, Distal LM-into the Ostium of LAD Stented w/ 4.0 x 16 mm Synergy Stent 06/2017PTCA- 04/2017 PCI-LAD with a 2.75x38 Promus Premier drug eluting stent. 12/15/13 RAYMON of Right Posterior Lateral (Mid) wIth 3.0 x 2.8 Cypher, followed upstream with 3.0 x 8 Cypher, RAYMON of Right PDA (Ostial) with 25 x 28 Cypher 09/17/2007; 06/25/2019:LVEF: by LV gram 45-50 % Depressed Left Ventricular systolic function - Mild; Single vessel CAD of the ostial/proximal LCX in stent restenosis. Non obstructive coronary arteries of LM, LAD and RCA. Referred for immediate PCI to Dr Yao at [facility] given high risk nature and proximity to LM and LAD. (14) Hyperlipidemia Status: Chronic (15) Hypothyroidism Status: Chronic (16) NSTEMI (non-ST elevated myocardial infarction) Status: Chronic (17) Non-rheumatic aortic stenosis Status: Chronic (18) Obesity (BMI 30.0-34.9) Status: Chronic (19) Pancytopenia Status: Chronic (20) S/P PTCA (percutaneous transluminal coronary angioplasty) Status: Chronic Comment: PCI of ostial and mid LCX in-stent restenosis with laser atherectomy, balloon angioplasty per Dr. Rodriguez [facility] 08/20/18 PCI PTCA and laser atherectomy of proximal Circumflex 02/03/2018 PTCA-ostial/prox LCx @ [facility] 11/09/2017 PTCA-Cutting Balloon Atherectomy w/ placement of 2.5 x 20 mm Synergy Stent, Distal LM-into the Ostium of LAD Stented w/ 4.0 x 16 mm Synergy Stent 06/2017PTCA- 04/2017 PCI-LAD with a 2.75x38 Promus Premier drug eluting stent. 12/15/13 RAYMON of Right Posterior Lateral (Mid) wIth 3.0 x 2.8 Cypher, followed upstream with 3.0 x 8 Cypher, RAYMON of Right PDA (Ostial) with 25 x 28 Cypher 09/17/2007 (21) Schizophrenia Status: Chronic (22) Thrombocytopenia Status: Chronic Past Medical History - Allergies and Home Meds Allergies/Adverse Reactions: Allergies aripiprazole [From Abilify] Allergy (Intermediate, Verified 05/05/20 08:43) it over powered me lisinopril Allergy (Intermediate, Verified 05/05/20 08:43) Unknown atorvastatin calcium [From Lipitor] Adverse Reaction (Verified 05/05/20 08:43) Unknown rosiglitazone maleate [From Avandia] Adverse Reaction (Verified 05/05/20 08:43) Other Primary Care Physician: Diana Cohen MD [Primary Care Provider] - Prior records reviewed: Yes Past Medical History: - - See problem list Surgical History: angioplasty, appendectomy, cholecystectomy, tonsillectomy, - - Spinal fusion Lives: With Family Smoking Status: Never smoker Alcohol: None Drugs: None - Family History Maternal Family History: Family History (Last Reviewed 05/05/20 @ 10:57 by Malorie Waller) Mother CAD (coronary artery disease) Father CAD (coronary artery disease) Family History: Reports: Heart Disease, - Paternal Family History: Family History (Last Reviewed 05/05/20 @ 10:57 by Malorie Waller) Mother CAD (coronary artery disease) Father CAD (coronary artery disease) Family History: Reports: Heart Disease Review of Systems General: Denies: Chills, Fever, Sweats Eyes: Denies: Visual changes - bilaterally, Diplopia ENT: Denies: Rhinorrhea, Sore throat Cardiovascular: Denies: Chest pain, Palpitations Respiratory: Denies: Dyspnea, Cough, Dyspnea on exertion Gastrointestinal: Reports: Hematochezia. Denies: Abdominal pain, Nausea, Vomiting, Diarrhea, Melena Genitourinary: Denies: Dysuria, Hematuria, Frequency Musculoskeletal: Denies: Back pain, Extremity Pain Skin: Denies: Rash, Wounds Neurological: Denies: Headache, Weakness, Numbness Physical Exam Vital Signs/Narrative: Vital Signs Temp Pulse Resp Pulse Ox 05/06/20 06:13 97 F L 65 18 98 General: Well nourished, Well developed, No Acute Distress Head: Normocephalic, Atraumatic Eyes: Perrl, EOMI ENT: Moist mucous membranes, No rhinorrhea Neck: Supple, Nontender Cardiovascular: Regular rate, Regular rhythm, No murmurs Respiratory: No distress, CTA bilaterally, Chest nontender Abdomen: Soft, Nontender, Nondistended, Normal bowel sounds Rectal: Nontender, - - Gross positive blood flecks in the finger red in nature Back: Nontender, Normal Inspection Extremities: Nontender, No edema Skin: Normal color, No rash Neurological: Alert, Oriented x3, Cranial nerves II-XII grossly intact, Normal Strength, Normal Sensation Psychological: Normal affect, Normal Mood Diagnostic/Tx/Re-eval - Medical Decision Making IV established and patient monitored. Resting comfortably. Lab work obtained including CBC BMP coagulation studies type and screen.. Lab work shows a hemoglobin 9.7. This is better than her prior hemoglobin check. She did appear to receive a transfusion just last month. Coags are negative. Patient has remained stable in the department. Discussed with the hospitalist as well as . Last ejection fraction on echo was 55% therefore given a bolus of 500 cc of fluid. Remained stable. I suspect she has a polyp site that is bleeding. Will be admitted to the hospital service - Critical Care Time Critical care time (excluding procedures): 30-74 minutes ED Disposition - Plan for ED Patient: Disposition: Acute Care Hospital [facility] Diagnosis: Postoperative haemorrhage
[2020-05-06 06:49] LABS: Absolute Lymphocyte Count 1.25 X10^3/uL (0.83-4.51); Absolute Neutrophil Count 3.1 X10^3/uL (2.0-7.7); Basophil# 0.03 X10^3/uL; Basophil% 0.6 % (0-1); Eosinophil# 0.11 X10^3/uL; Eosinophils% 2.3 % (0-5); Hematocrit 29.7 % (37-47); Hemoglobin 9.7 g/dL (12.0-15.0); Lymphocyte # 1.25 X10^3/ul (4.0); Lymphocyte % 25.9 % (19-41); Mean Corp Hgb Conc 32.7 g/dL (32-36); Mean Corpuscular Hgb 31.7 pg (27.0-32.0); Mean Corpuscular Volume 97.1 fL (81-99); Mean Platelet Vol. 9.9 fl (6.2-12.0); Monocyte% 6.2 % (0-10); NRBC Flagged by Analyzer 0 % (0-5); Neutrophil # 3.12 X10^3/uL (2.7-7.7); Neutrophil % 64.8 % (47-70); Platelet Count 176 K/mm3 (150-450); RBC Distribution Width CV 13.4 % (11.6-14.6); RBC Distribution Width SD 47.8 fl (35.1-43.9); Red Blood Count 3.06 M/mm3 (4.2-5.4); White Blood Count 4.8 K/mm3 (4.4-11.0)
[2020-05-06 06:55] LABS: International Normalized Ratio 1.2; Partial Thromboplast Time 26.4 Seconds (24.1-36.2); Prothrombin Time (Protime)PT. 14.7 SECONDS (11.7-14.9)
[2020-05-06 07:05] LABS: ALB/GLOB Ratio 0.9 RATIO (0.9-2.4); AST(SGOT) 46 U/L (15-37); Alanine Aminotransfer ALT/SGPT 28 U/L (13-56); Albumin, Serum 3.4 g/dL (3.2-5.0); Alkaline Phosphatase 105 U/L (45-117); Anion Gap 5 (5-15); BUN 21 mg/dL (7-18); BUN/Creat Ratio 18.6 RATIO (10-20); Chloride 100 mmol/L (98-107); Creatinine, Serum 1.13 mg/dL (0.55-1.02); EST Glomerular Filtration Rate 49 mL/min (>60); Est Glom Filt Rate - Afr Amer 59 mL/min (>60); Estimated Creatinine Clearance 37.17 ml/min; Globulin 3.7 g/dL (2.2-4.2); Glucose 98 mg/dL (74-106); Potassium 3.5 mmol/L (3.5-5.1); Protein, Total 7.1 g/dL (6.4-8.2); Sodium Level 140 mmol/L (136-145)
--- NOTE | 2020-05-06 09:13 | CASEMGMT ---
Addendum entered by Karina Simmons 05/06/20 10:18: SW received a return call from Gage at [facility]. Patient gets 7 meals a week from [employer], she also gets 7 hours a week of aid services from [employer], and she has a medical alert button. Her continuous pillowcase cutter is [place]. SW let him know it is possible patient may be discharged today, but SW will let him know. Karina GUTHRIE Original Note: Patient has [employer] services. SW called [facility] coverage line and spoke with Gage Chapin. SW let him know she was admitted and is observation status. He will call SW back with her services as his computer was slow. Karina SERRATO MSW
[2020-05-06 09:24] LABS: Hematocrit 27.2 % (37-47); Hemoglobin 8.4 g/dL (12.0-15.0)
[2020-05-06] MEDS: traMADol 50 MG Tablet PO (09:25)
--- NOTE | 2020-05-06 10:00 | HP.PCM_ITS ---
Problem List (1) GI bleed Status: Acute (2) CAD (coronary artery disease) Status: Chronic Qualifiers: Coronary Disease-Associated Artery/Lesion type: [place] artery [place] vs. transplanted heart: [place] heart Associated angina: without angina Qualified Code(s): I25.10 - Atherosclerotic heart disease of [place] coronary artery without angina pectoris (3) Chronic systolic (congestive) heart failure Status: Chronic (4) Schizophrenia Status: Chronic Qualifiers: Schizophrenia type: unspecified Qualified Code(s): F20.9 - Schizophrenia, unspecified (5) History of coronary artery stent placement Status: Chronic (6) Hypothyroidism Status: Chronic Qualifiers: Hypothyroidism type: unspecified Qualified Code(s): E03.9 - Hypothyroidism, unspecified (7) Hyperlipidemia Status: Chronic Qualifiers: Hyperlipidemia type: unspecified Qualified Code(s): E78.5 - Hyperlipidemia, unspecified (8) Diabetes mellitus, type II Status: Chronic Qualifiers: 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 She had a colonoscopy/egd last week and had some polyps removed per Dr. Hatfield. She had restarted brillinta yesterday which was held for the endoscopy. She was found to have mild anemia however this was not consistent with a significant change from her baseline iron deficiency anemia. Hgb was 9.7. Dr. Hatfield was contacted and did not feel the patient would require surgical workup. The patient had mild nausea, no abdominal pain, no diarrhea.[] Past Medical History Past Medical History (Chronic Problems): Chronic Problems (Last Reviewed 05/05/20 @ 10:57 by Malorie Waller) Thrombocytopenia (Chronic) CAD (coronary artery disease) (Chronic) Essential hypertension (Chronic) Non-rheumatic aortic stenosis (Chronic) History of coronary artery stent placement (Chronic 06/25/19) PTCA-ostial/prox LCx @ [facility] 11/09/2017 PTCA-Cutting Balloon Atherectomy w/ placement of 2.5 x 20 mm Synergy Stent, Distal LM-into the Ostium of LAD Stented w/ 4.0 x 16 mm Synergy Stent PTCA-OM 04/2017 PCI-LAD with a 2.75x38 Promus Premier drug eluting stent. 12/15/13 RAYMON of Right Posterior Lateral (Mid) wIth 3.0 x 2.8 Cypher, followed upstream with 3.0 x 8 Cypher, RAYMON of Right PDA (Ostial) with 25 x 28 Cypher 09/17/2007; 06/25/2019:LVEF: by LV gram 45-50 % Depressed Left Ventricular systolic function - Mild; Single vessel CAD of the ostial/proximal LCX in stent restenosis. Non obstructive coronary arteries of LM, LAD and RCA. Referred for immediate PCI to Dr Yao at [facility] given high risk nature and proximity to LM and LAD. Chronic systolic (congestive) heart failure (Chronic) Schizophrenia (Chronic) S/P PTCA (percutaneous transluminal coronary angioplasty) (Chronic ~11/09/17) PCI of ostial and mid LCX in-stent restenosis with laser atherectomy, balloon angioplasty per Dr. Rodriguez [facility] 08/20/18 PCI PTCA and laser atherectomy of proximal Circumflex 02/03/2018 PTCA-ostial/prox LCx @ [facility] 11/09/2017 PTCA-Cutting Balloon Atherectomy w/ placement of 2.5 x 20 mm Synergy Stent, Distal LM-into the Ostium of LAD Stented w/ 4.0 x 16 mm Synergy Stent 06/2017PTCA-OM 04/2017 PCI-LAD with a 2.75x38 Promus Premier drug eluting stent. 12/15/13 RAYMON of Right Posterior Lateral (Mid) wIth 3.0 x 2.8 Cypher, followed upstream with 3.0 x 8 Cypher, RAYMON of Right PDA (Ostial) with 25 x 28 Cypher 09/17/2007 History of coronary artery stent placement (Chronic) Atherosclerotic heart disease sh[place] coronary artery w/angina pectoris (Chronic) PCI of ostial and mid LCX in-stent restenosis with laser atherectomy, balloon angioplasty per Dr. Rodriguez [facility] 08/20/18 PCI PTCA and laser atherectomy of proximal Circumflex 02/03/2018 PTCA-ostail/prox LCx @ [facility] 11/09/2017 PTCA-Cutting Balloon Atherectomy w/ placement of 2.5 x 20 mm Synergy Stent, Distal LM-into the Ostium of LAD Stented w/ 4.0 x 16 mm Synergy Stent 06/2017PTCA-OM 04/2017 PCI-LAD with a 2.75x38 Promus Premier drug eluting stent. 12/15/13 RAYMON of Right Posterior Lateral (Mid) wIth 3.0 x 2.8 Cypher, followed upstream with 3.0 x 8 Cypher, RAYMON of Right PDA (Ostial) with 25 x 28 Cypher 09/17/2007 Pancytopenia (Chronic) Hypothyroidism (Chronic) Hyperlipidemia (Chronic) Diabetes mellitus, type II (Chronic) NSTEMI (non-ST elevated myocardial infarction) (Chronic ~09/16/17) Obesity (BMI 30.0-34.9) (Chronic) Medical History: Medical History (Last Reviewed 05/05/20 @ 10:57 by Malorie Waller) Essential hypertension (Chronic) I10 Non-rheumatic aortic stenosis (Chronic) I35.0 Chronic systolic (congestive) heart failure (Chronic) I50.22 Schizophrenia (Chronic) F20.9 Atherosclerotic heart disease [place]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 Rodriguez [facility] 08/20/18 PCI PTCA and laser atherectomy of proximal Circumflex 02/03/2018 PTCA-ostail/prox LCx @ [facility] 11/09/2017 PTCA-Cutting Balloon Atherectomy w/ placement of 2.5 x 20 mm Synergy Stent, Distal LM-into the Ostium of LAD Stented w/ 4.0 x 16 mm Synergy Stent 06/2017PTCA-OM 04/2017 PCI-LAD with a 2.75x38 Promus Premier drug eluting stent. 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) K75.81, K74.60 Mitral valve insufficiency (Inactive) I34.0 Non-rheumatic mitral regurgitation (Inactive) I34.0 Nonrheumatic tricuspid valve regurgitation (Inactive) I36.1 Tricuspid valve insufficiency (Inactive) I07.1 Allergies aripiprazole [From Abilify] Allergy (Intermediate, Verified 05/05/20 08:43) it over powered me lisinopril Allergy (Intermediate, Verified 05/05/20 08:43) Unknown atorvastatin calcium [From Lipitor] Adverse Reaction (Verified 05/05/20 08:43) Unknown rosiglitazone maleate [From Avandia] Adverse Reaction (Verified 05/05/20 08:43) Other Home Medications: Ambulatory Orders Medication Instructions Recorded Aspirin [Aspirin, Baby] 81 mg PO DAILY@0800 06/30/17 Nitroglycerin [Nitrostat] 0.4 mg SL PRN PRN 06/30/17 Multivitamins,Therapeutic 1 tab PO DAILY 02/01/18 [Multivitamin] ascorbic acid (vitamin C) 500 mg 500 mg PO DAILY 09/13/18 tablet Insulin Glargine,Hum.rec.anlog 34 unit SUBCUT DAILY 04/23/19 [Touroman Solostmarisabel] Carvedilol [Coreg] 3.125 mg PO BIDCM 06/24/19 Cholecalciferol (Vitamin D3) 5,000 unit PO DAILY 06/24/19 [Vitamin D3] Levothyroxine [Synthroid] 100 mcg PO DAILY 07/24/19 pravastatin 80 mg tablet 80 mg PO DAILY #30 tab 09/16/19 traMADol [Ultram] 50 mg PO BID PRN PRN 11/12/19 Amlodipine Besylate [Norvasc] 5 mg PO DAILY 02/10/20 Folic Acid 1 mg PO DAILY 02/10/20 Furosemide 40 mg PO BID 02/10/20 Insulin Regular, Human [Humulin R] 8 unit SQ TIDCM 02/10/20 metolazone 2.5 mg tablet 2.5 mg PO .COMPLEX #8 tab 02/19/20 potassium chloride 20 mEq 20 meq PO DAILY 03/05/20 tablet,extended release Acetaminophen [Tylenol Tablet] 650 mg PO Q6H PRN PRN tab 03/29/20 Ferrous Sulfate 325 mg PO BID #60 tablet. 03/29/20 Pantoprazole Sodium [Protonix] 40 mg PO BID #60 tab 03/29/20 Ranolazine [Ranexa] 500 mg PO BID #60 tab 03/29/20 Oxybutynin [Ditropan] 5 mg PO DAILY 04/21/20 isosorbide mononitrate 60 mg 60 mg PO BID #60 tab 04/29/20 tablet,extended release 24 hr losartan 25 mg tablet 25 mg PO DAILY #30 tab 04/29/20 nystatin 100,000 unit/mL oral 100,000 unit PO DAILY 7 Days #7 ml 05/05/20 suspension Clopidogrel Bisulfate [Plavix] 75 mg PO DAILY #30 tab 05/07/20 Surgical History: Surgical History (Last Reviewed 05/05/20 @ 10:57 by Malorie Waller) History of coronary artery stent placement (Chronic) Onset Date: 06/25/19 Z95.5 PTCA-ostial/prox LCx @ [facility] 11/09/2017 PTCA-Cutting Balloon Atherectomy w/ placement of 2.5 x 20 mm Synergy Stent, Distal LM-into the Ostium of LAD Stented w/ 4.0 x 16 mm Synergy Stent 06/2017PTCA-OM 04/2017 PCI-LAD with a 2.75x38 Promus Premier drug eluting stent. 12/15/13 RAYMON of Right Posterior Lateral (Mid) wIth 3.0 x 2.8 Cypher, followed upstream with 3.0 x 8 Cypher, RAYMON of Right PDA (Ostial) with 25 x 28 Cypher 09/17/2007; 06/25/2019:LVEF: by LV gram 45-50 % Depressed Left Ventricular systolic function - Mild; Single vessel CAD of the ostial/proximal LCX in stent restenosis. Non obstructive coronary arteries of LM, LAD and RCA. Referred for immediate PCI to Dr Yao at [facility] given high risk nature and proximity to LM and LAD. S/P PTCA (percutaneous transluminal coronary angioplasty) (Chronic) Onset Date: ~11/09/17 Z98.61 PCI of ostial and mid LCX in-stent restenosis with laser atherectomy, balloon angioplasty per Dr. Rodriguez [facility] 08/20/18 PCI PTCA and laser atherectomy of proximal Circumflex 02/03/2018 PTCA-ostial/prox LCx @ [facility] 11/09/2017 PTCA-Cutting Balloon Atherectomy w/ placement of 2.5 x 20 mm Synergy Stent, Distal LM-into the Ostium of LAD Stented w/ 4.0 x 16 mm Synergy Stent 06/2017PTCA-OM 04/2017 PCI-LAD with a 2.75x38 Promus Premier drug eluting stent. 12/15/13 RAYMON of Right Posterior Lateral (Mid) wIth 3.0 x 2.8 Cypher, followed upstream with 3.0 x 8 Cypher, RAYMON of Right PDA (Ostial) with 25 x 28 Cypher 09/17/2007 History of coronary artery stent placement (Chronic) Z95.5 History of colonoscopy Onset Date: ~04/2020 Z98.890 History of esophagogastroduodenoscopy (EGD) Onset Date: ~04/2020 Z98.890 History of appendectomy Z90.49 History of cholecystectomy Z90.49 History of tonsillectomy and adenoidectomy Z98.890 History of spinal fusion (Inactive) Z98.1 anterior Surgical History: angioplasty, appendectomy, cholecystectomy, tonsillectomy, - - Spinal fusion Psychiatric History: No pertinent psych hx 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 history Lives: With Family Smoking Status: Never smoker Alcohol: None Drugs: None - *Family History Maternal Family History: Family History (Last Reviewed 05/07/20 @ 14:49 by ZARINA Hardwick) Mother CAD (coronary artery disease) Father CAD (coronary artery disease) History Items: Heart Disease, - Paternal Family History: Family History (Last Reviewed 05/07/20 @ 14:49 by ZARINA Hardwick) Mother CAD (coronary artery disease) Father CAD (coronary artery disease) History Items: Heart Disease Review of Systems Constitutional: Denies: Chills, Fever, Weight Change HEENT: Denies: Head Aches, Sinus Congestion, Sinus Drainage Cardiovascular: Denies: Chest Pain, Light Headedness, Palpitations Respiratory: Denies: Cough, Shortness of Breath, Shortness of breath at rest, Sputum production Gastrointestinal: Reports: Hematochezia, Nausea. Denies: Abdominal Pain, Diarrhea, Vomiting Genitourinary: Denies: Dysuria, Hesitancy, Urgency Musculoskeletal: Denies: Joint Pain, Joint Tenderness, Muscle pain Skin: Denies: Lesions, Rash, Wounds Neurological: Denies: Numbness, Tingling, Focal weakness Psychiatric: Denies: Anxiety, Depression, Homicidal Ideations, Suicidal Ideations Hematologic/ Lymphatic: Denies: Easy Bruising, Easy Bleeding VTE Information - Inpt Only VTE Present on Admission: No VTE Mechan Device Prophylaxis: SCD's VTE Pharm Prophylaxis ordered?: No Patient Problems: Active and Suspected Problems (Last Reviewed 05/05/20 @ 10:57 by Malorie Waller) Postoperative haemorrhage (Acute) GI bleed (Acute) - Physical Exam Vitals/I&O's: Vital Signs Temp Pulse Resp BP Pulse Ox 97.7 F L 64 14 114/40 L 98 05/07/20 08:48 05/07/20 08:48 05/07/20 08:48 05/07/20 08:48 05/07/20 08:48 Oxygen Delivery Method Room Air Weight: 193 lb 1.999 oz Body Mass Index (BMI) 31.1 Finger Stick Blood Glucose 270 Intake and Output for Last 24 Hours 05/05/20 05/06/20 05/07/20 23:59 23:59 23:59 Intake Total 1262.5 / 1262.5 Output Total 1225 / 1225 401 / 401 Balance 37.5 / 37.5 -401 / -401 General: Alert, Oriented x3, Cooperative HEENT: Atraumatic, PERRLA, EOMI, Normocephalic Neck: Supple, No JVD, Negative Carotid Bruits Lungs: Clear to auscultation, Normal air movement Cardiovascular: Regular rate, No murmurs Abdomen: Bowel Sounds Present, Soft, Non Tender Extremities: No edema, Capillary Refill Less than 3 Seconds Skin: No rashes, No breakdown Musculoskeletal: No Tenderness to Palpation of Joints or Extremities Neurological: Cranial nerves II-XII grossly intact Psych/Mental Status: Anxious, Alert and oriented to time, place, person, mood and affect Laboratory Results 05/06/20 06:20: Crossmatch See Detail 05/06/20 17:03: POC Glucose 251 H 05/06/20 21:55: POC Glucose 240 H 05/06/20 22:56: Hgb 9.4 L, Hct 28.6 L 05/07/20 05:05: WBC 3.0 L, RBC 3.04 L, Hgb 9.3 L, Hct 28.1 L, MCV 92.4, MCH 30.6, MCHC 33.1, RDW Std Deviation 49.6 H, RDW Coeff of Conchis 14.6, Plt Count 110 L, MPV 9.8, Immature Gran % (Auto) 0.300, Neut % (Auto) 39.5 L, Lymph % (Auto) 49.0 H, [place] % (Auto) 7.8, Eos % (Auto) 2.7, Baso % (Auto) 0.7, Absolute Neuts (auto) 1.2 L, Absolute Lymphs (auto) 1.45, Nucleated RBC % 0 05/07/20 06:49: POC Glucose 83 05/07/20 11:18: POC Glucose 161 H Current Medications Acetaminophen (Tylenol) 650 mg PO Q6H PRN PRN PRN Reason: Pain Score 1-10/Temp > 100.7 F Amlodipine Besylate (Norvasc) 5 mg PO DAILY [facility] Last Admin: 05/07/20 08:51 Dose: 5 mg Documented by: Aspirin (Aspirin, Baby) 81 mg PO DAILY@0800 [facility] Last Admin: 05/07/20 08:51 Dose: 81 mg Documented by: [facility]) [facility] Last Admin: 05/07/20 08:51 Dose: 3.125 mg Documented by: Dextrose (D50w Syringe) 0 gm IV X1 PRN; Protocol PRN Reason: Hypoglycemia Glucagon () 1 mg IM .X1 PRN PRN Reason: Hypoglycemia Insulin Human Lispro (Humalog Kwikpen (Bkc)) 0 unit SC [facility]; Protocol Last Admin: 05/07/20 11:20 Dose: Not Given Documented by: Ondansetron HCl (Zofran) 4 mg IV Q8H PRN PRN PRN Reason: NAUSEA/VOMITING Ranolazine (Ranexa) 500 mg PO BID [facility] Last Admin: 05/07/20 08:51 Dose: 500 mg Documented by: Sodium Chloride () 10 - 40 ml IV UD PRN PRN Reason: SALINE FLUSH Last Admin: 05/06/20 21:59 Dose: 10 ml Documented by: Tramadol HCl (Ultram) 50 mg PO BID PRN PRN PRN Reason: Pain or Fever Last Admin: 05/06/20 09:25 Dose: 50 mg Documented by: Assessment/Plan All Active Problems (Last Reviewed 05/05/20 @ 10:57 by Malorie Waller) Postoperative haemorrhage (Acute) GI bleed (Acute) Acute respiratory failure with hypoxia (Acute) NSTEMI (non-ST elevated myocardial infarction) (Acute) Acute respiratory failure with hypoxia and hypercapnia (Acute) Acute srm-TP-qiuffopek myocardial infarction (Acute) Lactic acidosis (Acute) Acute on chronic CHF (Acute) 1. Acute blood loss anemia 2/2 GI bleed, lower- recently had upper and lower scope with Dr. Hatfield. Pt had polyps removed, diverticula on colonoscopy, upper endoscopy showed normal esophagus, erythematous mucosa prepyloric region of the stomach, normal duodenum. Pt does have frequent constipation. Pt follows Dr. Son as outpatient for anemia. Recently brillinta held for scope, resumed two days ago. Will hold brillinta. Pt to go back on plavix instead, in one week if blood counts stable/no bleeding. -Trend H/H. 2. Hx CHENEY - mildly abnormal LFTs. Plts normal. 3. Chronic systolic CHF - no exacerbation - will give lasix with blood 4. DMt2 - SSI, accuchecks 5. CAD - asa/coreg/ranexa/pravastatin. as above brillinta held. 6. Schizophrenia - complicating DVT ppx: SCDs DC planning: repeat H/H in the AM. Home if stable. This patient was seen by Brandon Méndez PA-C under the supervision of Dr. Jose.
[2020-05-06] MEDS: 0.9% Normal Saline 1,000 ML 75 ML IV (10:11)
[2020-05-06] MEDS: Carvedilol 3.125 MG TABLET PO (10:12)
[2020-05-06] MEDS: Ranolazine 500 MG Tablet PO ×2 (10:12→21:58)
[2020-05-06] MEDS: Aspirin 81 MG TAB.CHEW PO (10:12)
[2020-05-06] MEDS: 0.9% Saline Lock 10 ML Syringe IV ×2 (10:12→21:59)
--- NOTE | 2020-05-06 12:02 | CASEMGMT ---
Contact info for Laureano, pt's [facility] CM, . Laureano would like to be updated when pt discharged. Rloando RN CM
[2020-05-06 13:05] LABS: Bedside Glucose 252 mg/dL (70-110)
[2020-05-06 13:25] LABS: Hemoglobin 7.5 g/dL (12.0-15.0)
--- NOTE | 2020-05-06 14:30 | PN_ITS ---
Patient Problems: Active and Suspected Problems (Last Reviewed 05/05/20 @ 10:57 by Malorie Waller) Postoperative haemorrhage (Acute) Reason for Visit: BRBPR Subjective: No abd pain. No BM today. Mild nausea no vomiting. No fever/chills. No LH/dizziness. No palp. Vitals/I&O's: Vital Signs Temp Pulse Resp BP Pulse Ox 97.5 F L 75 14 101/54 L 99 05/06/20 08:56 05/06/20 08:56 05/06/20 08:56 05/06/20 08:56 05/06/20 08:56 Oxygen Delivery Method Room Air Weight: 193 lb 1.999 oz Body Mass Index (BMI) 31.1 Finger Stick Blood Glucose 270 Intake and Output for Last 24 Hours 05/04/20 05/05/20 05/06/20 23:59 23:59 23:59 Intake Total 742.5 / 742.5 Output Total 200 / 200 Balance 542.5 / 542.5 General: Alert, Oriented x3, Cooperative HEENT: Atraumatic, PERRLA, EOMI, Normocephalic Neck: Supple, No JVD, Negative Carotid Bruits Lungs: Clear to auscultation, Normal air movement Cardiovascular: Regular rate, No murmurs Abdomen: Bowel Sounds Present, Soft, Non Tender Extremities: No edema, Capillary Refill Less than 3 Seconds Skin: No rashes, No breakdown Musculoskeletal: No Tenderness to Palpation of Joints or Extremities Neurological: Cranial nerves II-XII grossly intact Psych/Mental Status: Flat Affect, Alert and oriented to time, place, person, mood and affect Laboratory Results 05/06/20 06:20: WBC 4.8, RBC 3.06 L, Hgb 9.7 L, Hct 29.7 L, MCV 97.1, MCH 31.7, MCHC 32.7, RDW Std Deviation 47.8 H, RDW Coeff of Conchis 13.4, Plt Count 176, MPV 9.9, Immature Gran % (Auto) 0.200, Neut % (Auto) 64.8, Lymph % (Auto) 25.9, [place] % (Auto) 6.2, Eos % (Auto) 2.3, Baso % (Auto) 0.6, Absolute Neuts (auto) 3.1, Absolute Lymphs (auto) 1.25, Nucleated RBC % 0 05/06/20 06:20: PT 14.7, INR 1.2, APTT 26.4 05/06/20 06:20: Sodium 140, Potassium 3.5, Chloride 100, Carbon Dioxide 35.0 H, Anion Gap 5, BUN 21 H, Creatinine 1.13 H, Estim Creat Clear Calc 37.17, Est GFR (MDRD) Af Amer 59 L, Est GFR (MDRD) Non-Af 49 L, BUN/Creatinine Ratio 18.6, Glucose 98, Calcium 9.0, Total Bilirubin 0.90, AST 46 H, ALT 28, Alkaline Phosphatase 105, Total Protein 7.1, Albumin 3.4, Globulin 3.7, Albumin/Globulin Ratio 0.9 05/06/20 06:20: Blood Type A POSITIVE, Antibody Screen NEGATIVE 05/06/20 09:16: Hgb 8.4 L, Hct 27.2 L 05/06/20 12:57: POC Glucose 252 H 05/06/20 13:18: Hgb 7.5 L, Hct 23.0 L Current Medications Acetaminophen (Tylenol) 650 mg PO Q6H PRN PRN PRN Reason: Pain Score 1-10/Temp > 100.7 F Amlodipine Besylate (Norvasc) 5 mg PO DAILY [facility] Last Admin: 05/06/20 10:05 Dose: Not Given Documented by: Aspirin (Aspirin, Baby) 81 mg PO DAILY@0800 [facility] Last Admin: 05/06/20 10:12 Dose: 81 mg Documented by: [facility]) [facility] Last Admin: 05/06/20 10:12 Dose: 3.125 mg Documented by: Ondansetron HCl (Zofran) 4 mg IV Q8H PRN PRN PRN Reason: NAUSEA/VOMITING Ranolazine (Ranexa) 500 mg PO BID [facility] Last Admin: 05/06/20 10:12 Dose: 500 mg Documented by: Sodium Chloride () 10 - 40 ml IV UD PRN PRN Reason: SALINE FLUSH Last Admin: 05/06/20 10:12 Dose: 10 ml Documented by: Tramadol HCl (Ultram) 50 mg PO BID PRN PRN PRN Reason: Pain or Fever Last Admin: 05/06/20 09:25 Dose: 50 mg Documented by: Medical Necessity - Tobacco Use Smoking Status: Never smoker Assessment/Plan All Active Problems (Last Reviewed 05/05/20 @ 10:57 by Malorie Waller) Postoperative haemorrhage (Acute) Acute respiratory failure with hypoxia (Acute) NSTEMI (non-ST elevated myocardial infarction) (Acute) Acute respiratory failure with hypoxia and hypercapnia (Acute) Acute ora-GL-ozencstyo myocardial infarction (Acute) Lactic acidosis (Acute) Acute on chronic CHF (Acute) 1. Acute blood loss anemia 2/2 GI bleed, lower- recently had upper and lower scope with Dr. Hatfield. Pt had polyps removed, diverticula on colonoscopy, upper endoscopy showed normal esophagus, erythematous mucosa prepyloric region of the stomach, normal duodenum. Pt does have frequent constipation. Pt follows Dr. Son as outpatient for anemia. Recently brillinta held for scope, resumed two days ago. Pt to go back on plavix instead, in one week if blood counts stable/no bleeding. 2. Hx CHENEY - mildly abnormal LFTs. Plts normal. 3. Chronic systolic CHF - no exacerbation - will give lasix with blood 4. DMt2 - SSI, accuchecks 5. CAD - asa/coreg/ranexa/pravastatin DVT ppx: SCDs DC planning: repeat H/H in the AM. Home if stable. This patient was seen by Brandon Méndez PA-C under the supervision of Dr. Jose.
--- NOTE | 2020-05-06 14:52 | EKG12_ITS ---
Test Reason : CP Blood Pressure : / mmHG Vent. Rate : 073 BPM Atrial Rate : 073 BPM P-R Int : 198 ms QRS Dur : 098 ms QT Int : 504 ms P-R-T Axes : 051 -26 -12 degrees QTc Int : 555 ms Normal sinus rhythm Nonspecific ST and T wave abnormality Prolonged QT Abnormal ECG Confirmed by JUAN ALBERTO CHEW, RC ([id number]), purchase request editor LAURIE MCCLELLAND ([id number]) on 05/12/2020 10:27:54 AM Referred By: Confirmed By:RC AVENDANO MD
[2020-05-06] MEDS: Insulin Lispro 100 UNIT/ML INSULN.PEN SC ×2 (17:10→21:58)
[2020-05-06 17:15] LABS: Bedside Glucose 251 mg/dL (70-110)
[2020-05-06] MEDS: Furosemide 40 MG/4 ML Vial IV (17:44)
[2020-05-06 22:11] LABS: Bedside Glucose 240 mg/dL (70-110)
[2020-05-06 23:08] LABS: Hematocrit 28.6 % (37-47); Hemoglobin 9.4 g/dL (12.0-15.0)
[2020-05-07 02:35] VITALS: BP 106/43; PULSE 61; RESP 18; TEMP 36.8; O2SAT 97
[2020-05-07 03:00] VITALS: PULSE 57
[2020-05-07 05:28] LABS: Absolute Lymphocyte Count 1.45 X10^3/uL (0.83-4.51); Absolute Neutrophil Count 1.2 X10^3/uL (2.0-7.7); Basophil# 0.02 X10^3/uL; Basophil% 0.7 % (0-1); Eosinophil# 0.08 X10^3/uL; Eosinophils% 2.7 % (0-5); Hematocrit 28.1 % (37-47); Hemoglobin 9.3 g/dL (12.0-15.0); Lymphocyte # 1.45 X10^3/ul (4.0); Mean Corp Hgb Conc 33.1 g/dL (32-36); Mean Corpuscular Hgb 30.6 pg (27.0-32.0); Mean Corpuscular Volume 92.4 fL (81-99); Mean Platelet Vol. 9.8 fl (6.2-12.0); Monocyte# 0.23 X10^3/uL; Monocyte% 7.8 % (0-10); NRBC Flagged by Analyzer 0 % (0-5); Neutrophil # 1.17 X10^3/uL (2.7-7.7); Neutrophil % 39.5 % (47-70); Platelet Count 110 K/mm3 (150-450); RBC Distribution Width CV 14.6 % (11.6-14.6); RBC Distribution Width SD 49.6 fl (35.1-43.9); Red Blood Count 3.04 M/mm3 (4.2-5.4)
[2020-05-07 07:00] VITALS: PULSE 62
[2020-05-07 07:00] LABS: Bedside Glucose 83 mg/dL (70-110)
[2020-05-07 08:48] VITALS: BP 114/40; PULSE 64; RESP 14; TEMP 36.5; O2SAT 98
[2020-05-07] MEDS: Carvedilol 3.125 MG TABLET PO (08:51)
[2020-05-07] MEDS: Ranolazine 500 MG Tablet PO (08:51)
[2020-05-07] MEDS: amLODIPine 5 MG Tablet PO (08:51)
[2020-05-07] MEDS: Aspirin 81 MG TAB.CHEW PO (08:51)
--- NOTE | 2020-05-07 10:28 | CASEMGMT ---
This RN CM to room to discuss discharge plan with pt at this time and pt declines HHC/OP therapy at this time. Pt states she would like to use [facility] van tranportation to get home at discharge today. Chris, PCU company secretary, aware, voices understanding. Igor TREVINO updated on all, voices understanding. Pt voices no further questions/concerns/needs at this time. Rolando TREVINO CM
--- NOTE | 2020-05-07 10:58 | PCM.DC ---
- Discharge Diagnoses Current Active Problems: Current Active and Chronic Problems (Last Reviewed 05/05/20 @ 10:57 by Malorie Waller) Postoperative haemorrhage (Acute) You will use the following diet at home:: Calorie/Carbohydrate Controlled (specify 1200, 1400, etc) - 1800 doreen / day, Cardiac Your food should be the consistency of: Regular Your liquids should be the consistency of: Regular/Thin Discharge Activity: Return to Normal Activity Allergies/Adverse Reactions: Allergies aripiprazole [From Abilify] Allergy (Intermediate, Verified 05/05/20 08:43) it over powered me lisinopril Allergy (Intermediate, Verified 05/05/20 08:43) Unknown atorvastatin calcium [From Lipitor] Adverse Reaction (Verified 05/05/20 08:43) Unknown rosiglitazone maleate [From Avandia] Adverse Reaction (Verified 05/05/20 08:43) Other Medications to take at Discharge Aspirin [Aspirin, Baby] 81 mg PO DAILY@0800 06/30/17 Nitroglycerin [Nitrostat] 0.4 mg SL PRN PRN 06/30/17 Multivitamins,Therapeutic [Multivitamin] 1 tab PO DAILY 02/01/18 ascorbic acid (vitamin C) 500 mg tablet 500 mg PO DAILY 09/13/18 Insulin Glargine,Hum.rec.anlog [Soha Bejarano] 34 unit SUBCUT DAILY 04/23/19 Carvedilol [Coreg] 3.125 mg PO BIDCM 06/24/19 Cholecalciferol (Vitamin D3) [Vitamin D3] 5,000 unit PO DAILY 06/24/19 Levothyroxine [Synthroid] 100 mcg PO DAILY 07/24/19 pravastatin 80 mg tablet 80 mg PO DAILY #30 tab 09/16/19 traMADol [Ultram] 50 mg PO BID PRN PRN 11/12/19 Amlodipine Besylate [Norvasc] 5 mg PO DAILY 02/10/20 Folic Acid 1 mg PO DAILY 02/10/20 Furosemide 40 mg PO BID 02/10/20 Insulin Regular, Human [Humulin R] 8 unit SQ TIDCM 02/10/20 metolazone 2.5 mg tablet 2.5 mg PO .COMPLEX #8 tab 02/19/20 potassium chloride 20 mEq tablet,extended release 20 meq PO DAILY 03/05/20 Acetaminophen [Tylenol Tablet] 650 mg PO Q6H PRN PRN tab 03/29/20 Ferrous Sulfate 325 mg PO BID #60 tablet.dr 03/29/20 Pantoprazole Sodium [Protonix] 40 mg PO BID #60 tab 03/29/20 Ranolazine [Ranexa] 500 mg PO BID #60 tab 03/29/20 Oxybutynin [Ditropan] 5 mg PO DAILY 04/21/20 isosorbide mononitrate 60 mg tablet,extended release 24 hr 60 mg PO BID #60 tab 04/29/20 losartan 25 mg tablet 25 mg PO DAILY #30 tab 04/29/20 nystatin 100,000 unit/mL oral suspension 100,000 unit PO DAILY 7 Days #7 ml 05/05/20 Clopidogrel Bisulfate [Plavix] 75 mg PO DAILY #30 tab 05/07/20 The following prescriptions were given: Clopidogrel Bisulfate [Plavix] 75 mg PO DAILY #30 tab Transmission Status: Pending to [facility], [place] - [address] Primary Care Physician: Diana Cohen MD [Primary Care Provider] - Please follow up with your Primary Care Physician in: 1-2 weeks Test Results: Test results from this visit will be discussed in further detail at your follow-up appointment, if applicable. Please Follow Up With: Zoila French PA When: Keep prior appointment Please Follow Up With: Yvan Hatfield MD When: 4 weeks Proposed Discharge Date: 05/07/20
--- NOTE | 2020-05-07 11:08 | CASEMGMT ---
Message left with pt's [facility] CM, Laureano, to notify of pt discharge at this time. SStsusie TREVINO CM
--- NOTE | 2020-05-07 11:13 | CASEMGMT ---
Patient is being discharged today. SUAD called [facility] and spoke with Gage Chapin on the coverage line letting him know patient is being discharged home today with no additional services. SUAD also left her caseworker intake, Helena a voice mail letting her know as well as faxed d/c instructions. Plan: d/c home with resumption of [employer] services. Karina SERRATO MSW
[2020-05-07 11:40] LABS: Bedside Glucose 161 mg/dL (70-110)
--- NOTE | 2020-05-07 11:49 | PHA.DC.MC ---
Pharmacy Service has performed discharge medication reconciliation and counseling for this patient. The patient was counseled on the following discharge medications and changes in medications for homegoing were reviewed. 1. PLAVIX - STOP BRILINTA The Reason for Use, instructions for use, and potential side effects were reviewed for all new medications. The patient's questions regarding all of their medications were answered. The patient was able to verbally demonstrate an understanding of their discharge medications. Home Medications Aspirin [Aspirin, Baby] 81 mg PO DAILY@0800 06/30/17 Nitroglycerin [Nitrostat] 0.4 mg SL PRN PRN 06/30/17 Multivitamins,Therapeutic [Multivitamin] 1 tab PO DAILY 02/01/18 ascorbic acid (vitamin C) 500 mg tablet 500 mg PO DAILY 09/13/18 Insulin Glargine,Hum.rec.anlog [Touroman Solostar] 34 unit SUBCUT DAILY 04/23/19 Carvedilol [Coreg] 3.125 mg PO BIDCM 06/24/19 Cholecalciferol (Vitamin D3) [Vitamin D3] 5,000 unit PO DAILY 06/24/19 Levothyroxine [Synthroid] 100 mcg PO DAILY 07/24/19 pravastatin 80 mg tablet 80 mg PO DAILY #30 tab 09/16/19 traMADol [Ultram] 50 mg PO BID PRN PRN 11/12/19 Amlodipine Besylate [Norvasc] 5 mg PO DAILY 02/10/20 Folic Acid 1 mg PO DAILY 02/10/20 Furosemide 40 mg PO BID 02/10/20 Insulin Regular, Human [Humulin R] 8 unit SQ TIDCM 02/10/20 metolazone 2.5 mg tablet 2.5 mg PO .COMPLEX #8 tab 02/19/20 potassium chloride 20 mEq tablet,extended release 20 meq PO DAILY 03/05/20 Acetaminophen [Tylenol Tablet] 650 mg PO Q6H PRN PRN tab 03/29/20 Ferrous Sulfate 325 mg PO BID #60 tablet.dr 03/29/20 Pantoprazole Sodium [Protonix] 40 mg PO BID #60 tab 03/29/20 Ranolazine [Ranexa] 500 mg PO BID #60 tab 03/29/20 Oxybutynin [Ditropan] 5 mg PO DAILY 04/21/20 isosorbide mononitrate 60 mg tablet,extended release 24 hr 60 mg PO BID #60 tab 04/29/20 losartan 25 mg tablet 25 mg PO DAILY #30 tab 04/29/20 nystatin 100,000 unit/mL oral suspension 100,000 unit PO DAILY 7 Days #7 ml 05/05/20 Clopidogrel Bisulfate [Plavix] 75 mg PO DAILY #30 tab 05/07/20 The patient's discharge medication list was reviewed for discrepancies and discrepancies were resolved.
--- NOTE | 2020-05-07 14:10 | PCM.DC.SUM ---
Discharge Date and Diagnosis - Problem List Patient Problems: Active and Suspected Problems (Last Reviewed 05/05/20 @ 10:57 by Malorie Waller) Postoperative haemorrhage (Acute) Date of Admission: 03/26/20 Date of Discharge: 05/07/20 - Primary Discharge Diagnosis Acute Problems: Active Problems (Last Reviewed 05/05/20 @ 10:57 by Malorie Waller) Acute blood loss anemia 2/2 GI bleed unclear etiology Hx CHENEY Chronic systolic CHF DMt2 CAD - Secondary Discharge Diagnosis Chronic Problems: Chronic Problems (Last Reviewed 05/05/20 @ 10:57 by Malorie Waller) Thrombocytopenia (Chronic) CAD (coronary artery disease) (Chronic) Essential hypertension (Chronic) Non-rheumatic aortic stenosis (Chronic) History of coronary artery stent placement (Chronic 06/25/19) PTCA-ostial/prox LCx @ [facility] 11/09/2017 PTCA-Cutting Balloon Atherectomy w/ placement of 2.5 x 20 mm Synergy Stent, Distal LM-into the Ostium of LAD Stented w/ 4.0 x 16 mm Synergy Stent 06/2017PTCA-OM 04/2017 PCI-LAD with a 2.75x38 Promus Premier drug eluting stent. 12/15/13 RAYMON of Right Posterior Lateral (Mid) wIth 3.0 x 2.8 Cypher, followed upstream with 3.0 x 8 Cypher, RAYMON of Right PDA (Ostial) with 25 x 28 Cypher 09/17/2007; 06/25/2019:LVEF: by LV gram 45-50 % Depressed Left Ventricular systolic function - Mild; Single vessel CAD of the ostial/proximal LCX in stent restenosis. Non obstructive coronary arteries of LM, LAD and RCA. Referred for immediate PCI to Dr Yao at [facility] given high risk nature and proximity to LM and LAD. Chronic systolic (congestive) heart failure (Chronic) Schizophrenia (Chronic) S/P PTCA (percutaneous transluminal coronary angioplasty) (Chronic ~11/09/17) PCI of ostial and mid LCX in-stent restenosis with laser atherectomy, balloon angioplasty per Dr. Rodriguez [facility] 08/20/18 PCI PTCA and laser atherectomy of proximal Circumflex 02/03/2018 PTCA-ostial/prox LCx @ [facility] 11/09/2017 PTCA-Cutting Balloon Atherectomy w/ placement of 2.5 x 20 mm Synergy Stent, Distal LM-into the Ostium of LAD Stented w/ 4.0 x 16 mm Synergy Stent 06/2017PTCA-OM 04/2017 PCI-LAD with a 2.75x38 Promus Premier drug eluting stent. 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 Rodriguez [facility] 08/20/18 PCI PTCA and laser atherectomy of proximal Circumflex 02/03/2018 PTCA-ostail/prox LCx @ [facility] 11/09/2017 PTCA-Cutting Balloon Atherectomy w/ placement of 2.5 x 20 mm Synergy Stent, Distal LM-into the Ostium of LAD Stented w/ 4.0 x 16 mm Synergy Stent 06/2017PTCA-OM 04/2017 PCI-LAD with a 2.75x38 Promus Premier drug eluting stent. 12/15/13 RAYMON of Right Posterior Lateral (Mid) wIth 3.0 x 2.8 Cypher, followed upstream with 3.0 x 8 Cypher, RAYMON of Right PDA (Ostial) with 25 x 28 Cypher 09/17/2007 Pancytopenia (Chronic) Hypothyroidism (Chronic) Hyperlipidemia (Chronic) Diabetes mellitus, type II (Chronic) NSTEMI (non-ST elevated myocardial infarction) (Chronic ~09/16/17) Obesity (BMI 30.0-34.9) (Chronic) Hospital Course and Treatment Operations: None Procedures: Blood transfusion Summary of Care Provided: Hospital Course: The patient is a 79 year old F with pmhx as above who recently had upper and lower endoscopy with Dr. Hatfield with polypectomy, who presented to the ER with bright red blood per rectum. Alysia was contacted and did not feel surgical workup was indicated.She had a Hgb not significantly worse than her baseline. She was admitted and brillinta was held. She did decline from 9.7 to 7.5 Hgb. She was given 2 units PRBC and had appropriate response in Hgb. She had no further drop in Hgb. Cardiology was contacted and recommended stopping brillinta for a week and in a week starting plavix instead. She was discharged home in stable condition. Follow up with cardiology in 2 weeks, general surgeon 4 weeks, PCP 1-2 weeks. This patient was seen by Brandon Méndez PA-C under the supervision of Dr. Jose [] Patient Problems: Active and Suspected Problems (Last Reviewed 05/05/20 @ 10:57 by Malorie Waller) Postoperative haemorrhage (Acute) - Physical Exam Vitals/I&O's: Vital Signs Temp Pulse Resp BP Pulse Ox 97.7 F L 64 14 114/40 L 98 05/07/20 08:48 05/07/20 08:48 05/07/20 08:48 05/07/20 08:48 05/07/20 08:48 Oxygen Delivery Method Room Air Weight: 193 lb 1.999 oz Body Mass Index (BMI) 31.1 Finger Stick Blood Glucose 270 Intake and Output for Last 24 Hours 05/05/20 05/06/20 05/07/20 23:59 23:59 23:59 Intake Total 1262.5 / 1262.5 Output Total 1225 / 1225 401 / 401 Balance 37.5 / 37.5 -401 / -401 General: Alert, Oriented x3, Cooperative HEENT: Atraumatic, PERRLA, EOMI, Normocephalic Neck: Supple, No JVD, Negative Carotid Bruits Lungs: Clear to auscultation, Normal air movement Cardiovascular: Regular rate, No murmurs Abdomen: Bowel Sounds Present, Soft, Non Tender Extremities: No edema, Capillary Refill Less than 3 Seconds Skin: No rashes, No breakdown Musculoskeletal: No Tenderness to Palpation of Joints or Extremities Neurological: Cranial nerves II-XII grossly intact Psych/Mental Status: Normal Affect, Appropriate, Alert and oriented to time, place, person, mood and affect Laboratory Results 05/06/20 06:20: Crossmatch See Detail 05/06/20 17:03: POC Glucose 251 H 05/06/20 21:55: POC Glucose 240 H 05/06/20 22:56: Hgb 9.4 L, Hct 28.6 L 05/07/20 05:05: WBC 3.0 L, RBC 3.04 L, Hgb 9.3 L, Hct 28.1 L, MCV 92.4, MCH 30.6, MCHC 33.1, RDW Std Deviation 49.6 H, RDW Coeff of Conchis 14.6, Plt Count 110 L, MPV 9.8, Immature Gran % (Auto) 0.300, Neut % (Auto) 39.5 L, Lymph % (Auto) 49.0 H, [place] % (Auto) 7.8, Eos % (Auto) 2.7, Baso % (Auto) 0.7, Absolute Neuts (auto) 1.2 L, Absolute Lymphs (auto) 1.45, Nucleated RBC % 0 05/07/20 06:49: POC Glucose 83 05/07/20 11:18: POC Glucose 161 H Current Medications Acetaminophen (Tylenol) 650 mg PO Q6H PRN PRN PRN Reason: Pain Score 1-10/Temp > 100.7 F Amlodipine Besylate (Norvasc) 5 mg PO DAILY [facility] Last Admin: 05/07/20 08:51 Dose: 5 mg Documented by: Aspirin (Aspirin, Baby) 81 mg PO DAILY@0800 [facility] Last Admin: 05/07/20 08:51 Dose: 81 mg Documented by: [facility] Last Admin: 05/07/20 08:51 Dose: 3.125 mg Documented by: Dextrose (D50w Syringe) 0 gm IV X1 PRN; Protocol PRN Reason: Hypoglycemia Glucagon () 1 mg IM .X1 PRN PRN Reason: Hypoglycemia Insulin Human Lispro (Humalog Kwikpen (Bkc)) 0 unit [facility]; Protocol Last Admin: 05/07/20 11:20 Dose: Not Given Documented by: Ondansetron HCl (Zofran) 4 mg IV Q8H PRN PRN PRN Reason: NAUSEA/VOMITING Ranolazine (Ranexa) 500 mg PO BID [facility] Last Admin: 05/07/20 08:51 Dose: 500 mg Documented by: Sodium Chloride () 10 - 40 ml IV UD PRN PRN Reason: SALINE FLUSH Last Admin: 05/06/20 21:59 Dose: 10 ml Documented by: Tramadol HCl (Ultram) 50 mg PO BID PRN PRN PRN Reason: Pain or Fever Last Admin: 05/06/20 09:25 Dose: 50 mg Documented by: Discharge Diet: Low fat/ Low Cholesterol, 2000 mg Sodium Diet Discharge Activity: Return to Normal Activity Home Medications: Medications to take at Discharge Aspirin [Aspirin, Baby] 81 mg PO DAILY@0800 06/30/17 Nitroglycerin [Nitrostat] 0.4 mg SL PRN PRN 06/30/17 Multivitamins,Therapeutic [Multivitamin] 1 tab PO DAILY 02/01/18 ascorbic acid (vitamin C) 500 mg tablet 500 mg PO DAILY 09/13/18 Insulin Glargine,Hum.rec.anlog [Soha Soldeonna] 34 unit SUBCUT DAILY 04/23/19 Carvedilol [Coreg] 3.125 mg PO BIDCM 06/24/19 Cholecalciferol (Vitamin D3) [Vitamin D3] 5,000 unit PO DAILY 06/24/19 Levothyroxine [Synthroid] 100 mcg PO DAILY 07/24/19 pravastatin 80 mg tablet 80 mg PO DAILY #30 tab 09/16/19 traMADol [Ultram] 50 mg PO BID PRN PRN 11/12/19 Amlodipine Besylate [Norvasc] 5 mg PO DAILY 02/10/20 Folic Acid 1 mg PO DAILY 02/10/20 Furosemide 40 mg PO BID 02/10/20 Insulin Regular, Human [Humulin R] 8 unit SQ TIDCM 02/10/20 metolazone 2.5 mg tablet 2.5 mg PO .COMPLEX #8 tab 02/19/20 potassium chloride 20 mEq tablet,extended release 20 meq PO DAILY 03/05/20 Acetaminophen [Tylenol Tablet] 650 mg PO Q6H PRN PRN tab 03/29/20 Ferrous Sulfate 325 mg PO BID #60 tablet.dr 03/29/20 Pantoprazole Sodium [Protonix] 40 mg PO BID #60 tab 03/29/20 Ranolazine [Ranexa] 500 mg PO BID #60 tab 03/29/20 Oxybutynin [Ditropan] 5 mg PO DAILY 04/21/20 isosorbide mononitrate 60 mg tablet,extended release 24 hr 60 mg PO BID #60 tab 04/29/20 losartan 25 mg tablet 25 mg PO DAILY #30 tab 04/29/20 nystatin 100,000 unit/mL oral suspension 100,000 unit PO DAILY 7 Days #7 ml 05/05/20 Clopidogrel Bisulfate [Plavix] 75 mg PO DAILY #30 tab 05/07/20 Following Prescriptions Were Given to Patient: Clopidogrel Bisulfate [Plavix] 75 mg PO DAILY #30 tab Transmission Status: Received by [facility] [employer] - [address] Primary Care Physician: Diana Cohen MD [Primary Care Provider] - Please follow up with your Primary Care Physician in: 1-2 weeks Please Follow Up With: Zoila French PA When: Keep prior appointment Please Follow Up With: Yvan Hatfield MD When: 4 weeks Disposition: Home Minutes spent on discharge:: 35 Patient Condition:: Stable Medical Necessity - Tobacco Use Smoking Status: Never smoker Meaningful Use Info Meaningful Use Diagnoses (Choose all that apply): None applicable
== END 2020-05-07 10:59 | disposition home or self-care (01) ==
LOC: ED 07:12 → PCU 07:28
PROVIDERS: Physician Assistant; Admitting Provider Internal Medicine; Emergency Provider Emergency Medicine; PCP Internal Medicine; Visit Provider Internal Medicine
DX: D62 Acute posthemorrhagic anemia (principal); K75.81 Nonalcoholic steatohepatitis (NASH); I11.0 Hypertensive heart disease with heart failure; I50.22 Chronic systolic (congestive) heart failure; I25.10 Atherosclerotic heart disease of native coronary artery without angina pectoris; E11.9 Type 2 diabetes mellitus without complications; Z79.899 Other long term (current) drug therapy; Z79.82 Long term (current) use of aspirin; Z79.4 Long term (current) use of insulin; Z79.02 Long term (current) use of antithrombotics/antiplatelets; I25.2 Old myocardial infarction; Z95.5 Presence of coronary angioplasty implant and graft; E78.5 Hyperlipidemia, unspecified; E03.9 Hypothyroidism, unspecified; E66.9 Obesity, unspecified; F20.9 Schizophrenia, unspecified
CPT/HCPCS: 36415; 36430; 80053; 82962; 85014; 85018; 85025; 85610; 85730; 86850; 86900; 86901; 86920; 93005; 96361; 96374; 96375; 97802; 99218; 99285; J7030; J7040; P9016; A4216; G0378; J1940; J3490

== ENCOUNTER → 2020-06-24 09:14 | Outpatient (CLI) | payer MEDICARE, MEDICAID, SELFPAY ==
[2020-06-17 08:27] VITALS: BMI 32.8
--- NOTE | 2020-06-24 09:20 | CDU_ITS ---
Reason For Study: bruit Rt. Velocities/BP Lt. Velocities/BP Prox CCA 76.0/13.4 cm/sec. Prox CCA 91.3/6.5 cm/sec. Mid CCA 72.1/8.2 cm/sec. Mid CCA 82.7/9.0 cm/sec. Dist CCA 69.5/10.8 cm/sec. Dist CCA 70.4/9.0 cm/sec. Prox ICA 128.4/20.6 cm/sec. Prox ICA 52.0/10.2 cm/sec. Mid ICA 193.8/24.8 cm/sec. Mid ICA 98.6/18.8 cm/sec. Dist ICA 132.4/20.4 cm/sec. Dist ICA 63.0/16.3 cm/sec. Rt. ICA/CCA = 2.7. Lt. ICA/CCA = 1.2. Prox ECA 164.9/4.2 cm/sec. Prox ECA 124.4/6.5 cm/sec. Rt. Vert. 73.1/16.0 cm/sec. Lt. Vert. 48.3/6.5 cm/sec. Right Extracranial There is intimal thickening but no significant atherosclerotic plaque noted in the right common carotid artery. There is heterogeneous, irregular atherosclerotic plaque noted in the right internal carotid artery. There is heterogeneous, irregular atherosclerotic plaque noted in the right external carotid artery. Antegrade flow is noted in the right vertebral artery. Left Extracranial There is intimal thickening but no significant atherosclerotic plaque noted in the left common carotid artery. There is heterogeneous, irregular atherosclerotic plaque noted in the left internal carotid artery. There is intimal thickening but no significant atherosclerotic plaque noted in the left external carotid artery. Antegrade flow is noted in the left vertebral artery. Procedure Carotid Duplex 38436. This is a Carotid Duplex examination using B-mode, color flow and specral Doppler. The exam was diagnostic. Exam performed in department. Interpretation Summary Moderate (50-69%) stenosis right extracranial internal carotid. Mild (<50%) stenosis left extracranial internal carotid. Flow within the vertebral arteries is antegrade bilaterally. Ordering Physician: Zoila French Performed By: Joshua Morris RVT
[2020-06-24 11:28] LABS: BNP,B-Type NATRIURETIC PEPTIDE 201.6 pg/mL (0-100)
== END ==
PROVIDERS: PCP Internal Medicine; Referring Provider Physician Assistant Medical; Visit Provider Physician Assistant Medical
DX: I25.119 Atherosclerotic heart disease of native coronary artery with unspecified angina pectoris (principal); I25.2 Old myocardial infarction; I11.0 Hypertensive heart disease with heart failure; I50.22 Chronic systolic (congestive) heart failure; R06.00 Dyspnea, unspecified; R09.89 Other specified symptoms and signs involving the circulatory and respiratory systems
CPT/HCPCS: 36415; 83880; 93880

== ENCOUNTER 2020-08-17 21:22 | Emergency (ER) | payer MEDICARE, MEDICAID, SELFPAY ==
[2020-08-11 08:13] VITALS: BMI 33.0
[2020-08-17 21:23] VITALS: BP 116/48; PULSE 78; RESP 18; TEMP 36.7; O2SAT 98; BMI 34.0
--- NOTE | 2020-08-17 21:44 | ED.VIS.INJ ---
History of Present Illness Chief Complaint: Fall Informant: Patient Onset: Today - 1 hour prior to presentation Mechanism/Context: Blunt Injury, Fall Quality of Pain: Dull, Aching Location: Right forehead near hairline and right hip Current Severity: Moderate Maximum Severity: Severe Worsened by: Initial trauma Relieved by: Nothing Associated Symptoms: Inability to ambulate, Loss of consciousness Length of loss of consciousness: Transient Narrative: Patient is an 80-year-old woman who fell at home. She struck a table that was 1 foot from the floor. She then struck the floor. She was dazed. She does complain of headache. She denies nausea or vomiting. She denies neck pain. She denies paresthesia, anesthesia or motor weakness in her upper or lower extremities. She denies chest pain or shortness of breath. She denies black or maroon stool. She states she had to crawl to the door. She was unable to ambulate. She localizes her right hip pain to the right inguinal area and lateral aspect of the right hip. She states she is on anticoagulant. She reports bruising easily. 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) Status: Chronic (9) Non-rheumatic aortic stenosis Status: Chronic (10) Schizophrenia Status: Chronic Past Medical History - Allergies and Home Meds Allergies/Adverse Reactions: Allergies aripiprazole [From Abilify] Allergy (Intermediate, Verified 08/17/20 21:33) it over powered me lisinopril Allergy (Intermediate, Verified 08/17/20 21:33) Unknown atorvastatin calcium [From Lipitor] Adverse Reaction (Verified 08/17/20 21:33) Unknown rosiglitazone maleate [From Avandia] Adverse Reaction (Verified 08/17/20 21:33) Other Primary Care Physician: Diana Cohen MD [Primary Care Provider] - Prior records reviewed: Yes Surgical History: angioplasty, appendectomy, cholecystectomy, tonsillectomy, - - Spinal fusion Lives: Alone Smoking Status: Never smoker Alcohol: None Drugs: None - Family History Maternal Family History: Family History (Last Reviewed 08/11/20 @ 14:[address] Floyd Foster MD) Mother CAD (coronary artery disease) Father CAD (coronary artery disease) Family History: Reports: Heart Disease, - Paternal Family History: Family History (Last Reviewed 08/11/20 @ 14:[address] Floyd Foster MD) Mother CAD (coronary artery disease) Father CAD (coronary artery disease) Family History: Reports: Heart Disease Review of Systems General: Denies: Chills, Fever, Malaise, Subjective, Sweats Eyes: Reports: Visual changes - bilaterally, Blurred Vision - bilaterally. Denies: Diplopia ENT: Reports: - - Denies epistaxis. Denies difficulty opening closing her mouth.. Denies: Bilateral ear pain, Rhinorrhea, Sore throat Cardiovascular: Reports: Chest pain, Palpitations Respiratory: Reports: Dyspnea, Dyspnea on exertion Gastrointestinal: Reports: Abdominal pain, Nausea, Vomiting Musculoskeletal: Reports: Myalgias, Arthralgias, Neck pain, Back pain, Extremity Pain Skin: Reports: Wounds - Bruises upper and lower extremity. Denies: Rash Neurological: Reports: Headache. Denies: Weakness, Parasthesia Endocrine: Reports: Polyuria. Denies: Polydipsia Physical Exam Vital Signs/Narrative: Vital Signs Temp Pulse Resp BP Pulse Ox 08/17/20 21:23 98.0 F 78 18 116/48 L 98 Inital Vital Signs reviewed: Yes General: Well nourished, Well developed Head: Normocephalic, Trauma, Tenderness - Right side of forehead near hairline. Negative for: Atraumatic Eyes: Perrl, EOMI, Pale conjunctiva, Scleral icterus. Negative for: - - No subconjunctival hemorrhage. ENT: TM's clear, No hemotympanum or drainage, No trauma, - - Raccoon or loo sign. Negative for: Hemotympanum, Otorrhea, Nasal trauma, Nasal septal hematoma Neck: Nontender, Full ROM. Negative for: Spinal Tenderness, Paraspinal Tenderness Cardiovascular: Regular rate, Regular rhythm, No murmurs Respiratory: No distress, CTA bilaterally, Chest nontender Abdomen: Soft, Nontender, Nondistended, Normal bowel sounds, No masses Back: Nontender. Negative for: CVA Tenderness - Right, CVA Tenderness - Left Skin: Normal color, Trauma. Negative for: Cyanosis, Diaphoresis, Jaundice Neurological: Alert, Oriented x3, Cranial nerves II-XII grossly intact, Normal Strength. Negative for: Normal Gait Psychological: Normal affect - Glascow Coma Scale Eye Opening: Spontaneous Motor: Obeys Commands Verbal: Oriented Coma Scale Total: 15 Diagnostic/Tx/Re-eval Chest X-Ray - ED: Read by ED Physician, - - 3 views of the right hip were performed. There is no evidence of fracture of the femoral neck, there is no intertrochanteric fracture. There is no evidence of fracture to the pelvis. Awaiting interpretation of head CT by radiologist. Per my review there is no evidence of intracranial bleed. 08/17/20 21:54 Brain/Head without Contrast [CT] Stat 08/17/20 22:07 HIP, UNI W/ Pelvis 2-3 Views [RAD] Stat Impressions Brain CT 08/17/20 21:54 IMPRESSION: No change or acute abnormality. Mild atrophy and White matter disease. Electronically Signed: Vishal Hsieh MD at 22:19 EST , Service support , Hip/Pelvis X-Ray 08/17/20 22:07 IMPRESSION: No acute fracture or dislocation. Age-appropriate degenerative changes of the hips. Electronically Signed: Vishal Hsieh MD at 22:22 EST , Service support , 08/17/20 21:54 Brain/Head without Contrast [CT] Stat 08/17/20 22:07 HIP, UNI W/ Pelvis 2-3 Views [RAD] Stat If patient is able to ambulate will discharge to home. Otherwise, she will need an MRI in the morning to rule out occult fracture. - Medical Decision Making A history of head trauma, blurred vision, transient loss of consciousness and on anticoagulant per patient per the [place] CT head rule radiologic imaging of the head is indicated to rule out intracranial bleed. X-ray of the hip was obtained to rule out contusion versus fracture. I was informed by patient's nurse that she is able to ambulate. She will be discharged home with appropriate home-going instructions. ED Disposition - Plan for ED Patient: Disposition: Home or Assisted Living Diagnosis: Injury due to fall, Head injury, closed, with brief LOC, Contusion of right hip, initial encounter Instructions: ED Head Injury (Adult), ED Hip Contusion Referrals: Diana Cohen MD [Primary Care Provider] - As Needed
--- NOTE | 2020-08-17 21:54 | CT_ITS ---
STUDY: CT BRAIN WITHOUT CONTRAST REASON FOR EXAM: Female, 80 years old. FELL AND HIT HER HEAD,DENIES LOC RADIATION DOSAGE (If Supplied By Facility): CTDIvol = ( 44.99 ) mGy, DLP = ( 829.85 ) mGycm TECHNIQUE: Transaxial CT imaging of the brain was performed without administration of intravenous contrast material. Individualized dose optimization techniques were used for this CT. COMPARISON: Numerous prior studies were reviewed including 02/10/2020 FINDINGS: Normal soft tissue structures. Normal calvarium. There is mild cerebral atrophy with widening of the extra-axial spaces and ventricular dilatation. There are areas of decreased attenuation within the white matter tracts of the supratentorial brain, consistent with microvascular disease changes. Persistent stable 1.2 cm CSF structure in the right basal ganglia which could be an old lacunar infarct or Virchow-Darius space. Otherwise normal basal ganglia and thalami. Normal brainstem. Normal cerebellum. There is no intracranial hemorrhage. There are no findings of an acute ischemic infarction. Normal visualized paranasal sinuses. CT/Brain/Head without Contrast IMPRESSION: No change or acute abnormality. Mild atrophy and White matter disease. Electronically Signed: Vishal Hsieh MD at 22:19 EST , Service support ,
--- NOTE | 2020-08-17 22:07 | RAD_ITS ---
STUDY: X-RAY - PELVIS AND RIGHT HIP REASON FOR EXAM: Female, 80 years old. RT HIP PAIN AFTER FALL TODAY TECHNIQUE: 3 views of the pelvis and hip. COMPARISON: 04/23/2019. FINDINGS: There is a non-specific bowel gas pattern. Normal visualized soft tissue structures. Normal bilateral iliac wings, sacroiliac joints and visualized sacrum. Normal bilateral superior and inferior pubic rami. Normal pubic symphysis. Normal bilateral ischial tuberosities. There are osteoarthritic changes of the femoral head with marginal osteophyte formation. Normal acetabulum. There is mild articular joint space narrowing of the hip. RAD/HIP, UNI W/ Pelvis 2-3 Views IMPRESSION: No acute fracture or dislocation. Age-appropriate degenerative changes of the hips. Electronically Signed: Vishal Hsieh MD at 22:22 EST , Service support ,
[2020-08-17] MEDS: Ondansetron 4 MG/2 ML Vial IV (22:51)
[2020-08-17] MEDS: Morphine 4 MG/ML Syringe IV (22:51)
[2020-08-17 23:49] VITALS: BP 118/78; PULSE 80; RESP 18; O2SAT 98
== END 2020-08-17 23:50 | disposition home or self-care (01) ==
PROVIDERS: Emergency Provider Emergency Medicine; PCP Internal Medicine
DX: S06.9X9A Unspecified intracranial injury with loss of consciousness of unspecified duration, initial encounter (principal); S70.01XA Contusion of right hip, initial encounter; W18.39XA Other fall on same level, initial encounter; Y93.9 Activity, unspecified; Y92.009 Unspecified place in unspecified non-institutional (private) residence as the place of occurrence of the external cause; Y99.9 Unspecified external cause status; E78.5 Hyperlipidemia, unspecified; E03.9 Hypothyroidism, unspecified; I11.0 Hypertensive heart disease with heart failure; I25.10 Atherosclerotic heart disease of native coronary artery without angina pectoris; I50.32 Chronic diastolic (congestive) heart failure; E11.9 Type 2 diabetes mellitus without complications; F20.9 Schizophrenia, unspecified; K75.81 Nonalcoholic steatohepatitis (NASH); D64.9 Anemia, unspecified; Z79.01 Long term (current) use of anticoagulants; Z79.82 Long term (current) use of aspirin; Z79.4 Long term (current) use of insulin; Z79.899 Other long term (current) drug therapy
CPT/HCPCS: 70450; 73502; 96374; 96375; 99285; A4216; J2405

== ENCOUNTER 2020-08-31 01:02 | Observation (INO) | payer MEDICARE, MEDICAID, SELFPAY ==
[2020-08-31] VITALS (12 sets, daily range): BP systolic 97–124; BP diastolic 40–61; PULSE 57–83; RESP 15–20; TEMP 36.3–36.9; O2SAT 96–99; BMI 31.9; BMI 31.0
--- NOTE | 2020-08-31 01:34 | RAD_ITS ---
STUDY: X-RAY CHEST REASON FOR EXAM: Female, 80 years old. weakness TECHNIQUE: Single AP portable view of the chest. COMPARISON: 04/29/2020. FINDINGS: The lungs are clear and expanded. There is no demonstrated pleural abnormality. Normal size heart. Normal mediastinum and rell. Mild fullness of the central vessels may indicate mild vascular congestion. There is atherosclerotic calcification of the aortic arch with tortuosity. There is demineralization of the osseous structures. There is degenerative osteoarthritis of the bilateral shoulders. Right upper quadrant surgical clips. RAD/Chest 1 View (Portable) IMPRESSION: Possible mild vascular congestion. Clinical correlation recommended. Electronically Signed: Aranza Toney MD at 2:49 EST , Service support ,
--- NOTE | 2020-08-31 01:34 | EKG12_ITS ---
Test Reason : WEAKNESS Blood Pressure : / mmHG Vent. Rate : 066 BPM Atrial Rate : 066 BPM P-R Int : 156 ms QRS Dur : 116 ms QT Int : 566 ms P-R-T Axes : 015 -28 035 degrees QTc Int : 593 ms Normal sinus rhythm Left ventricular hypertrophy with QRS widening Nonspecific ST and T wave abnormality Prolonged QT Abnormal ECG Confirmed by JUAN ALBERTO CHEW, RC ([id number]), commissioning editor MAO MAIER ([id number]) on 09/01/2020 11:14:54 AM Referred By: ALBERTA Confirmed By:RC AVENDANO MD
--- NOTE | 2020-08-31 01:35 | CT_ITS ---
STUDY: CT ABDOMEN AND PELVIS WITHOUT CONTRAST REASON FOR EXAM: Female, 80 years old. ABDOMINAL DISTENTION/VOMITING/WEAKNESS. Hx of HTN, HLD, hypothyroid, diabetes, prior appendectomy and cholecystectomy RADIATION DOSAGE (If Supplied By Facility): CTDIvol = ( 12.52 ) mGy, DLP = ( 638.10 ) mGycm TECHNIQUE: Transaxial images were obtained from the dome of the diaphragm to the symphysis pubis without oral contrast, and without intravenous contrast. Sagittal and coronal images were reconstructed. Individualized dose optimization techniques were used for this CT. COMPARISON: None. FINDINGS: Mild bilateral lower lobe atelectasis. Normal cardiac size with coronary artery calcifications. There is a diffuse contour abnormality of the liver consistent with cirrhotic changes. There are surgical clips in the gallbladder fossa consistent with a prior cholecystectomy. Normal spleen. Normal pancreas. Normal bilateral adrenal glands. Normal right kidney. Normal left kidney. Normal visualized stomach. Normal small intestine. Moderate to abundant fecal debris within the colon suggestive of constipation. Minimal scattered diverticulosis with no signs of diverticulitis. There is non-visualization of the appendix. There is diffuse atherosclerotic calcification of the abdominal aorta, without a demonstrated aneurysm. Calcified atherosclerotic disease to the celiac and superior mesenteric artery. Normal inferior vena cava. Normal retroperitoneum. Normal urinary bladder. The uterus is retroflexed with bulbous appearance suggestive of uterine fibroids. Small adjacent ventricle and prior ventral hernia in the umbilicus region and containing only fat. There are diffuse degenerative changes of the visualized lumbar spine. Minimal anterolisthesis of L5 on S1 with no pars defect. CT/Abdomen/Pelvis without Cont IMPRESSION: Possible constipation. Mild diverticulosis with no signs of diverticulitis. No bowel obstruction. Findings suggestive of cirrhosis. No signs of ascites. Possible fibromatous uterus, remainder of the pelvis structures unremarkable. Electronically Signed: Aranza Toney MD at 2:55 EST , Service support ,
--- NOTE | 2020-08-31 01:36 | ED.VIS.GEN ---
History of Present Illness Chief Complaint: Weakness Informant: Patient Context: Sudden Onset Timing: Continuous Quality: weak, shaky Location: all over Current Severity: Severe Maximum Severity: Severe Worsened by: unk Relieved by: nothing Associated Symptoms: n/v Narrative: Patient presents saying that she is nauseated, vomiting, feeling shaky/chills, and generally weak. She initially states that this started suddenly earlier today after I was doing some things but then states that this just started a couple of hours ago. She presents at 1:30 AM. She is very poor historian and that she answers questions in a very ambiguous and sometimes conflicting manner. For instance, when asked if she has a cough, she initially states yes, whenever I spray deodorant or cologne. When asked to clarify, she admits that she has had a bit of a nonproductive cough recently, unknown how long this has been present. She also admits to some mild runny nose. She denies having any chest pain, but when asked if she is having any shortness of breath, she states she does all the time intermittently, and she has been a little worse lately. She sleeps on 2 pillows to prevent orthopnea. She has been compliant with her furosemide 40mg BID. She states she has had abdominal distention for about the past week. She states she is chronically constipated, had a bowel movement she thinks earlier this past morning, does not remember anything else unusual about it or blood/melena, and denies having any abdominal pain at this time. She denies a headache or passing out. She denies any focal weakness or numbness, just feels weak all over. She tells me that she has a history of coronary disease and several stents in her heart. She also states that she received 6 units of blood over about a 5-month period from last January-June. She did not have any known reason for this, and as a result had a colonoscopy, had several polyps removed, and was told that these may or may not be the source of her bleeding. She is on clopidogrel and no anticoagulants. Also states she had an accidental fall about a week ago for which she was seen here in the emergency department and had negative x-rays, discharged home, she has been able to ambulate okay until tonight when she started feeling so weak that she could not. This is all the information the patient is able to provide to me. She presented by EMS alone from assisted living. - Past Medical History (1) CAD (coronary artery disease) Status: Chronic (2) Anemia Status: Chronic Comment: Follows with Dr Son (3) Chronic diastolic (congestive) heart failure Status: Chronic (4) Diabetes mellitus, type II Status: Chronic (5) Essential hypertension Status: Chronic (6) Hyperlipidemia Status: Chronic (7) Hypothyroidism Status: Chronic (8) 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) Status: Chronic (9) Non-rheumatic aortic stenosis Status: Chronic (10) Schizophrenia Status: Chronic (11) History of non-ST elevation myocardial infarction (NSTEMI) Status: Resolved Comment: 08/16/2018, 06/2019, 07/25/2019, 02/10/2020 Past Medical History - Allergies and Home Meds Allergies/Adverse Reactions: Allergies aripiprazole [From Abilify] Allergy (Intermediate, Verified 08/17/20 21:33) it over powered me lisinopril Allergy (Intermediate, Verified 08/17/20 21:33) Unknown atorvastatin calcium [From Lipitor] Adverse Reaction (Verified 08/17/20 21:33) Unknown rosiglitazone maleate [From Avandia] Adverse Reaction (Verified 08/17/20 21:33) Other Primary Care Physician: Diana Cohen MD [Primary Care Provider] - Surgical History: angioplasty, appendectomy, cholecystectomy, tonsillectomy, - - Spinal fusion Lives: Alone Smoking Status: Never smoker Drugs: None - Family History Maternal Family History: Family History (Last Reviewed 08/11/20 @ 14:[address] Floyd Foster MD) Mother CAD (coronary artery disease) Father CAD (coronary artery disease) Family History: Reports: Heart Disease, - Paternal Family History: Family History (Last Reviewed 08/11/20 @ 14:[address] Floyd Foster MD) Mother CAD (coronary artery disease) Father CAD (coronary artery disease) Family History: Reports: Heart Disease Review of Systems General: Reports: Chills, Malaise. Denies: Fever, Sweats Eyes: Denies: Visual changes - bilaterally, Diplopia ENT: Reports: Rhinorrhea. Denies: Bilateral ear pain, Sore throat Cardiovascular: Denies: Chest pain, Palpitations, Heart racing Respiratory: Reports: Dyspnea, Cough, Dyspnea on exertion, Orthopnea. Denies: Sputum Gastrointestinal: Reports: Nausea, Vomiting, Constipation. Denies: Abdominal pain, Diarrhea, Melena, Hematochezia Genitourinary: Denies: Dysuria, Hematuria, Frequency Musculoskeletal: Reports: Swelling - chronic BLE, often worse in left lower ext, Extremity Pain - both ankles, she thinks chronically. Denies: Back pain Skin: Denies: Rash, Wounds Neurological: Denies: Headache, Weakness - nothing focal, Numbness Endocrine: Denies: Polyuria, Polydipsia Physical Exam Vital Signs/Narrative: Vital Signs Temp Pulse Resp BP Pulse Ox 08/31/20 01:02 98.3 F 60 16 120/47 L 98 Inital Vital Signs reviewed: Yes General: Well nourished, Well developed, No Acute Distress - conversive in full sentences Head: Normocephalic, Atraumatic Eyes: Perrl, EOMI ENT: Moist mucous membranes, No rhinorrhea Neck: Supple, Nontender, No lymphadenopathy, No JVD Cardiovascular: Regular rate, Regular rhythm, Murmur - harsh decrescendo systolic 3/6 Respiratory: No distress, Chest nontender, Rhonchi - Bibasilar. Negative for: Rales, Wheezing Abdomen: Soft, Nontender, Normal bowel sounds, - - mild diffuse distension without obvious fluid wave. Negative for: Pulsatile mass Back: Nontender, Normal Inspection Extremities: Tenderness - diffuse superficially both distal lower legs without focal findings of acute cellulitis or abscess/lesion, Edema - BLE, worse on left, w/ chronic stasis dermatitis, - - Full range of motion throughout all joints of all 4 extremities without significant discomfort. Skin: Normal color, Rash - chronic BLE stasis dermatitis, Trauma - Subacute, with large contusion right lateral hip/buttock Neurological: Alert, Oriented x3, Cranial nerves II-XII grossly intact, Normal Strength, Normal Sensation Psychological: Normal affect, Normal Mood Diagnostic/Tx/Re-eval Impressions Chest X-Ray 08/31/20 01:34 IMPRESSION: Possible mild vascular congestion. Clinical correlation recommended. Electronically Signed: Aranza Toney MD at 2:49 EST , Service support , Abdomen/Pelvis CT 08/31/20 01:35 IMPRESSION: Possible constipation. Mild diverticulosis with no signs of diverticulitis. No bowel obstruction. Findings suggestive of cirrhosis. No signs of ascites. Possible fibromatous uterus, remainder of the pelvis structures unremarkable. Electronically Signed: Aranza Toney MD at 2:55 EST , Service support , 08/31/20 01:34 Chest 1 View (Portable) [RAD] Stat 08/31/20 01:35 Abdomen/Pelvis without Cont [CT] Stat 08/31/20 01:50 Mucosa - Nose SARS-CoV-2 Antigen (Rapid) - Final Laboratory Results 08/31/20 08/31/20 08/31/20 02:05 02:05 03:00 WBC 4.1 L RBC 3.30 L Hgb 10.7 L Hct 31.6 L MCV 95.8 MCH 32.4 H MCHC 33.9 RDW Std Deviation 48.9 H RDW Coeff of Conchis 13.9 Plt Count 113 L MPV 10.1 Immature Gran % (Auto) 0.500 Neut % (Auto) 65.5 Lymph % (Auto) 25.2 Carver % (Auto) 6.1 Eos % (Auto) 2.2 Baso % (Auto) 0.5 Absolute Neuts (auto) 2.7 Absolute Lymphs (auto) 1.04 Nucleated RBC % 0 Sodium 138 Potassium 3.0 L Chloride 97 L Carbon Dioxide 33.0 H Anion Gap 8 BUN 30 H Creatinine 1.20 H Estim Creat Clear Calc 34.42 Est GFR (MDRD) Af Amer 55 L Est GFR (MDRD) Non-Af 46 L BUN/Creatinine Ratio 25.0 H Glucose 175 H Calcium 9.4 Total Bilirubin 1.10 H AST 43 H ALT 33 Alkaline Phosphatase 73 Troponin I 0.124 H Total Protein 7.6 Albumin 3.8 Globulin 3.8 Albumin/Globulin Ratio 1.0 Lipase 222 Urine Color Yellow Urine Clarity Clear Urine pH 6.0 Ur Specific [place] 1.015 Urine Protein Negative Urine Glucose (UA) Normal Urine Ketones Negative Urine Occult Blood Negative Urine Nitrite Negative Urine Bilirubin Negative Urine Urobilinogen Normal Ur Leukocyte Esterase 100 H Urine RBC 0 SEEN Urine WBC 10-25 SEEN Ur Squamous Epith Cells 0 SEEN Urine Bacteria 0 SEEN Urine Mucus 0 SEEN - Rhythm Strip Rhythm Strip: Sinus Rhythm Rate: 66 Ectopy: PVC(s) - EKG Initial EKG Interpretation: Sinus Rhythm, No Acute Injury Pattern, Non-Specific ST Changes - limb leads, - - leftward axis Prior: Unchanged - Medical Decision Making Initially patient was given some gentle IV fluids, she received no more than 100 cc of normal saline. Her IV blew due to manipulating her arms in CT scan, she was not getting any IV dye. She was given some Zofran which did help her nausea although she for still felt shaking chills on occasion. Given her abdominal distention a CT was obtained, results are as above. Basically chronic findings nothing acute, possibly constipation. She is not complaining of obstipation-type symptoms. Urine shows 100 leukocyte esterase with some pyuria, but there are no bacteria. She has had no urinary symptoms, unknown if this is indicative of acute infection, but since there is no bacteria I assume not so we will send it for culture for now. She is not septic but feels too weak to stand or go home. She does sound a little wet and her chest x-ray is consistent with cephalization and vascular congestion so we will treat her with furosemide, potassium, and admit her to inpatient observation. With regards to her elevated troponin, this is chronic for her and the more elevated than usual. With regards to her acute kidney injury/elevated creatinine above baseline, she does not seem dehydrated and I suspect this is either due to intrinsic renal issues versus exacerbation of congestive heart failure. ED Disposition - Plan for ED Patient: Disposition: Acute Care Hospital [facility] Diagnosis: Generalized weakness, Hypokalemia, Vomiting, YOSELIN (acute kidney injury), Acute exacerbation of CHF (congestive heart failure) Referrals: Diana Cohen MD [Primary Care Provider] -
[2020-08-31] MEDS: 0.9% Normal Saline 1,000 ML 150 ML IV (02:14)
[2020-08-31] MEDS: Ondansetron 4 MG/2 ML Vial IV (02:14)
[2020-08-31 02:35] LABS: AST(SGOT) 43 U/L (15-37); Alanine Aminotransfer ALT/SGPT 33 U/L (13-56); Albumin, Serum 3.8 g/dL (3.2-5.0); Alkaline Phosphatase 73 U/L (45-117); Anion Gap 8 (5-15); BUN 30 mg/dL (7-18); Calcium,Total 9.4 mg/dL (8.5-10.1); Chloride 97 mmol/L (98-107); EST Glomerular Filtration Rate 46 mL/min (>60); Est Glom Filt Rate - Afr Amer 55 mL/min (>60); Estimated Creatinine Clearance 34.42 ml/min; Globulin 3.8 g/dL (2.2-4.2); Glucose 175 mg/dL (74-106); Lipase 222 U/L (73-393); Protein, Total 7.6 g/dL (6.4-8.2); Sodium Level 138 mmol/L (136-145)
[2020-08-31 02:44] LABS: Absolute Lymphocyte Count 1.04 X10^3/uL (0.83-4.51); Absolute Neutrophil Count 2.7 X10^3/uL (2.0-7.7); Basophil# 0.02 X10^3/uL; Basophil% 0.5 % (0-1); Eosinophil# 0.09 X10^3/uL; Eosinophils% 2.2 % (0-5); Hematocrit 31.6 % (37-47); Hemoglobin 10.7 g/dL (12.0-15.0); Lymphocyte # 1.04 X10^3/ul (4.0); Lymphocyte % 25.2 % (19-41); Mean Corp Hgb Conc 33.9 g/dL (32-36); Mean Corpuscular Hgb 32.4 pg (27.0-32.0); Mean Corpuscular Volume 95.8 fL (81-99); Mean Platelet Vol. 10.1 fl (6.2-12.0); Monocyte# 0.25 X10^3/uL; Monocyte% 6.1 % (0-10); NRBC Flagged by Analyzer 0 % (0-5); Neutrophil % 65.5 % (47-70); Platelet Count 113 K/mm3 (150-450); RBC Distribution Width CV 13.9 % (11.6-14.6); RBC Distribution Width SD 48.9 fl (35.1-43.9); White Blood Count 4.1 K/mm3 (4.4-11.0)
[2020-08-31 03:07] LABS: Bacteria 0 SEEN /hpf (None Seen); Mucous, Urine 0 SEEN /hpf (<or=2+); Red Blood Cells-Urine 0 SEEN /hpf (0-5); Squamous Epithelial Cells - UA 0 SEEN /hpf (5-10)
[2020-08-31 03:09] LABS: Glucose, Dipstick Normal (Normal); Ketone-Dipstick Negative (Negative); Leukocyte Esterase-Dipstick 100 /ul (Negative); Nitrite-Dipstick Negative (Negative); Occult Blood-Urine Negative /ul (Negative); Protein-Dipstick Negative (Negative); Specific Gravity, Urine 1.015 (1.002-1.030); Urine Bilirubin Dipstick Negative (Negative); Urine Urobilinogen Normal (Normal)
[2020-08-31 03:12] LABS: Color, Urine Yellow (Yellow); Urine Clarity Clear (Clear)
[2020-08-31 03:14] LABS: White Blood Cells 10-25 SEEN /hpf (0-5)
--- NOTE | 2020-08-31 04:03 | HP.PCM_ITS ---
Problem List (1) CAD (coronary artery disease) Status: Chronic (2) Generalized weakness Status: Acute (3) Hypokalemia Status: Acute (4) Vomiting Status: Acute (5) YOSELIN (acute kidney injury) Status: Acute (6) History of non-ST elevation myocardial infarction (NSTEMI) Status: Resolved Comment: 08/16/2018, 06/2019, 07/25/2019, 02/10/2020 (7) History of coronary artery stent placement Status: Chronic Comment: PCI of ostial and mid LCx ISR with laser atherectomy, balloon angioplasty 08/20/18 PTCA and laser atherectomy-Prox LCx 02/03/2018; POBA-ostial/prox LCx 11/09/2017; IXU-INE-Lwbo LCx w/ 2.5 x 20 mm Synergy Stent, RAYMON-Distal LM-into the Ostium of LAD w/ 4.0 x 16 mm Synergy Stent 07/05/2017; POBA-Ostium and Prox LCx 04/19/2017; PCI-Rotational Poxmgyagxjj-MEJ-QCB with a 2.75 x 38 mm Promus Premier drug eluting stent 12/15/13; RAYMON-Mid RPLB w/ 3.0 x 28 mm Cypher and Prox RPLB w/ 3.0 x 8 mm Cypher, RAYMON- Ostium RPDA w/ 2.5 x 28 mm Cypher 09/17/2007 (8) Non-rheumatic aortic stenosis Status: Chronic (9) Essential hypertension Status: Chronic (10) Hyperlipidemia Status: Chronic Qualifiers: Hyperlipidemia type: unspecified Qualified Code(s): E78.5 - Hyperlipidemia, unspecified (11) Diabetes mellitus, type II Status: Chronic Qualifiers: Diabetes mellitus chcf insulin use: with chcf use Diabetes mellitus complication status: with unspecified complications (12) Hypothyroidism Status: Chronic Qualifiers: Hypothyroidism type: unspecified Qualified Code(s): E03.9 - Hypothyroidism, unspecified (13) Schizophrenia Status: Chronic Qualifiers: Schizophrenia type: unspecified Qualified Code(s): F20.9 - Schizophrenia, unspecified (14) 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) Status: Chronic History of Present Illness Date of Admission: 08/31/20 Chief Complaint: generalized weakness The patient is a 80 year old patient with a significant past medical history of congestive heart failure, schizophrenia, diabetes, hypertension, hyperlipidemia who presents to the emergency room by squad from her assisted living apartment due to complaint of generalized weakness. The patient is a very poor historian with incoherent speech patterns. I was able to ascertain through her and from ER physician that she had been vomiting for the past 2 days approximately and continues to feel some nausea here in the emergency room. This has improved somewhat with a dose of Zofran. CT scan abdomen reveals constipation but no other acute findings, chest x-ray reveals mild vascular congestion. Laboratory studies are remarkable for troponin of 0.124 and a potassium of 3.0. Patient denies chest pain presently, (consider patient a very unreliable historian). She did suffer a fall last week and does have painful bruise on her right hip however x-rays done at that time were negative for fracture. There are no other focal areas of injury or pain at this time that arose during my questioning of her. Patient will be admitted for observation, electrolytes corrected and perhaps case management consulted to assist with discharge planning. Past Medical History Past Medical History (Chronic Problems): Chronic Problems (Last Reviewed 08/11/20 @ 14:[address] Floyd Foster MD) CAD (coronary artery disease) (Chronic) Acute exacerbation of CHF (congestive heart failure) (Chronic) Atherosclerotic heart disease [place] coronary artery w/angina pectoris (Chronic) History of coronary artery stent placement (Chronic 08/20/18) PCI of ostial and mid LCx ISR with laser atherectomy, balloon angioplasty 08/20/18 PTCA and laser atherectomy-Prox LCx 02/03/2018; POBA-ostial/prox LCx 11/09/2017; DBB-ZOF-Mypz LCx w/ 2.5 x 20 mm Synergy Stent, RAYMON-Distal LM-into the Ostium of LAD w/ 4.0 x 16 mm Synergy Stent 07/05/2017; POBA-Ostium and Prox LCx 04/19/2017; PCI-Rotational Omeciasqmdi-LLF-DZN with a 2.75 x 38 mm Promus Premier drug eluting stent 12/15/13; RAYMON-Mid RPLB w/ 3.0 x 28 mm Cypher and Prox RPLB w/ 3.0 x 8 mm Cypher, RAYMON- Ostium RPDA w/ 2.5 x 28 mm Cypher 09/17/2007 Chronic diastolic (congestive) heart failure (Chronic) Non-rheumatic aortic stenosis (Chronic) Essential hypertension (Chronic) Hyperlipidemia (Chronic) Diabetes mellitus, type II (Chronic) Hypothyroidism (Chronic) Schizophrenia (Chronic) Anemia (Chronic) Follows with Dr Son 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) Medical History: Medical History (Last Reviewed 08/11/20 @ 14:[address] Floyd Foster MD) Atherosclerotic heart disease [place] coronary artery w/angina pectoris (Chronic) I25.119 History of non-ST elevation myocardial infarction (NSTEMI) (Resolved) Onset Date: 03/26/20 I25.2 08/16/2018, 06/2019, 07/25/2019, 02/10/2020 Chronic diastolic (congestive) heart failure (Chronic) I50.32 Non-rheumatic aortic stenosis (Chronic) I35.0 Essential hypertension (Chronic) I10 Hyperlipidemia (Chronic) E78.5 Diabetes mellitus, type II (Chronic) E11.9 Hypothyroidism (Chronic) E03.9 Schizophrenia (Chronic) F20.9 Anemia (Chronic) D64.[address] Son 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) K75.81, K74.60 GI bleed (Resolved) Onset Date: 05/07/20 K92.2 Obesity (BMI 30.0-34.9) E66.9 Pancytopenia D61.818 Thrombocytopenia D69.6 Acute respiratory failure with hypoxia J96.01 Acute respiratory failure with hypoxia and hypercapnia J96.01, J96.02 Lactic acidosis E87.2 Postoperative haemorrhage Mitral valve insufficiency (Inactive) I34.0 NSTEMI (non-ST elevated myocardial infarction) (Inactive) I21.4 Non-rheumatic mitral regurgitation (Inactive) I34.0 Nonrheumatic tricuspid valve regurgitation (Inactive) I36.1 Tricuspid valve insufficiency (Inactive) I07.1 Allergies aripiprazole [From Abilify] Allergy (Intermediate, Verified 08/17/20 21:33) it over powered me lisinopril Allergy (Intermediate, Verified 08/17/20 21:33) Unknown atorvastatin calcium [From Lipitor] Adverse Reaction (Verified 08/17/20 21:33) Unknown rosiglitazone maleate [From Avandia] Adverse Reaction (Verified 08/17/20 21:33) Other Home Medications: Ambulatory Orders Medication Instructions Recorded Aspirin [Aspirin, Baby] 81 mg PO DAILY@0800 06/30/17 Nitroglycerin [Nitrostat] 0.4 mg SL PRN PRN 06/30/17 Multivitamins,Therapeutic 1 tab PO DAILY 02/01/18 [Multivitamin] ascorbic acid (vitamin C) 500 mg 500 mg PO DAILY 09/13/18 tablet Insulin Glargine,Hum.rec.anlog 34 unit SC DAILY 04/23/19 [Toujeo Solostar] Carvedilol [Coreg] 3.125 mg PO BIDCM 06/24/19 Cholecalciferol (Vitamin D3) 5,000 unit PO DAILY 06/24/19 [Vitamin D3] Levothyroxine [Synthroid] 100 mcg PO DAILY 07/24/19 Folic Acid 1 mg PO DAILY 02/10/20 Furosemide 40 mg PO BID 02/10/20 Insulin Regular, Human [Humulin R] 8 unit SQ TIDCM 02/10/20 potassium chloride 20 mEq 20 meq PO DAILY 03/05/20 tablet,extended release Acetaminophen [Tylenol Tablet] 650 mg PO Q6H PRN PRN tab 03/29/20 Pantoprazole Sodium [Protonix] 40 mg PO BID #60 tab 03/29/20 losartan 25 mg tablet 25 mg PO DAILY #30 tab 04/29/20 clopidogrel 75 mg tablet 75 mg PO DAILY #30 tab 05/25/20 isosorbide mononitrate 60 mg 60 mg PO BID tab 06/17/20 tablet,extended release 24 hr metolazone 2.5 mg tablet 2.5 mg PO .COMPLEX tab 06/17/20 mirabegron 25 mg tablet,extended 25 mg PO DAILY 06/17/20 release 24 hr albuterol sulfate 90 mcg/actuation 2 puff INHALATION Q6H PRN 08/11/20 aerosol inhaler ferrous sulfate 325 mg (65 mg 325 mg PO DAILY tab 08/11/20 iron) tablet,delayed release pravastatin 80 mg tablet 80 mg PO DAILY #90 tab 08/13/20 ranolazine 1,000 mg 1,000 mg PO BID #60 tab 08/20/20 tablet,extended release,12 hr Surgical History: Surgical History (Last Reviewed 08/11/20 @ 14:[address] Floyd Foster MD) History of coronary artery stent placement (Chronic) Onset Date: 08/20/18 Z95.5 PCI of ostial and mid LCx ISR with laser atherectomy, balloon angioplasty 08/20/18 PTCA and laser atherectomy-Prox LCx 02/03/2018; POBA-ostial/prox LCx 11/09/2017; UVL-XXZ-Razg LCx w/ 2.5 x 20 mm Synergy Stent, RAYMON-Distal LM-into the Ostium of LAD w/ 4.0 x 16 mm Synergy Stent 07/05/2017; POBA-Ostium and Prox LCx 04/19/2017; PCI-Rotational Nohfatytqdm-JEK-PGF with a 2.75 x 38 mm Promus Premier drug eluting stent 12/15/13; RAYMON-Mid RPLB w/ 3.0 x 28 mm Cypher and Prox RPLB w/ 3.0 x 8 mm Cypher, RAYMON- Ostium RPDA w/ 2.5 x 28 mm Cypher 09/17/2007 History of appendectomy Z90.49 History of cholecystectomy Z90.49 History of colonoscopy Onset Date: 04/2020 Z98.890 History of esophagogastroduodenoscopy (EGD) Onset Date: 04/2020 Z98.890 History of left heart catheterization Onset Date: 06/25/19 Z98.890 History of tonsillectomy and adenoidectomy Z98.890 History of spinal fusion (Inactive) Z98.1 anterior Surgical History: angioplasty, appendectomy, cholecystectomy, tonsillectomy, - - Spinal fusion Psychiatric History: No pertinent psych hx PATIENT TRANSPORT OFFICER History: No pertinent PATIENT TRANSPORT OFFICER history Lives: Alone Smoking Status: Never smoker Drugs: None - *Family History Maternal Family History: Family History (Last Reviewed 08/11/20 @ 14:[address] Floyd Foster MD) Mother CAD (coronary artery disease) Father CAD (coronary artery disease) History Items: Heart Disease, - Paternal Family History: Family History (Last Reviewed 08/11/20 @ 14:[address] Floyd Foster MD) Mother CAD (coronary artery disease) Father CAD (coronary artery disease) History Items: Heart Disease Review of Systems Constitutional: Reports: Weakness. Denies: Chills, Fever, Weight Change HEENT: Denies: Head Aches, Sinus Congestion, Sinus Drainage Cardiovascular: Denies: Chest Pain, Palpitations Respiratory: Denies: Cough, Shortness of breath at rest, Sputum production Gastrointestinal: Reports: Nausea, Vomiting. Denies: Abdominal Pain Genitourinary: Denies: Dysuria Musculoskeletal: Denies: Joint Pain, Joint Tenderness Skin: Denies: Rash, Wounds Neurological: Reports: Confusion. Denies: Focal weakness, Numbness, Tingling Psychiatric: Denies: Anxiety, Depression, Homicidal Ideations, Suicidal Ideations Hematologic/ Lymphatic: Denies: Easy Bruising, Easy Bleeding VTE Information - Inpt Only VTE Present on Admission: No VTE Mechan Device Prophylaxis: None VTE Pharm Prophylaxis ordered?: Yes Patient Problems: Active and Suspected Problems (Last Reviewed 08/11/20 @ 14:[address] Floyd Foster MD) Generalized weakness (Acute) Hypokalemia (Acute) Vomiting (Acute) YOSELIN (acute kidney injury) (Acute) - Physical Exam Vitals/I&O's: Vital Signs Temp Pulse Resp BP Pulse Ox 97.4 F L 79 15 121/61 H 96 08/31/20 03:58 08/31/20 03:58 08/31/20 03:58 08/31/20 03:58 08/31/20 03:58 Oxygen Delivery Method Room Air Weight: 197 lb 15.602 oz Body Mass Index (BMI) 31.9 Finger Stick Blood Glucose 270 Intake and Output for Last 24 Hours 08/29/20 08/30/20 08/31/20 23:59 23:59 23:59 Intake Total 115 / 115 Balance 115 / 115 General: Alert, Oriented x3, Cooperative HEENT: Atraumatic, PERRLA, EOMI, Normocephalic Neck: Supple Lungs: Clear to auscultation, Normal air movement Cardiovascular: Regular rate, Normal S1, Normal S2, Murmur Abdomen: Bowel Sounds Present, Soft, Non Tender Extremities: No edema Skin: No rashes Musculoskeletal: Tenderness - right hip bruise Neurological: Neuro grossly intact Psych/Mental Status: Normal Affect, Appropriate Microbiology Past 72 Hours 08/31/20 01:50 Mucosa - Nose SARS-CoV-2 Antigen (Rapid) - Final Laboratory Results 08/31/20 02:05: WBC 4.1 L, RBC 3.30 L, Hgb 10.7 L, Hct 31.6 L, MCV 95.8, MCH 32.4 H, MCHC 33.9, RDW Std Deviation 48.9 H, RDW Coeff of Conchis 13.9, Plt Count 113 L, MPV 10.1, Immature Gran % (Auto) 0.500, Neut % (Auto) 65.5, Lymph % (Auto) 25.2, [place] % (Auto) 6.1, Eos % (Auto) 2.2, Baso % (Auto) 0.5, Absolute Neuts (auto) 2.7, Absolute Lymphs (auto) 1.04, Nucleated RBC % 0 08/31/20 02:05: Sodium 138, Potassium 3.0 L, Chloride 97 L, Carbon Dioxide 33.0 H, Anion Gap 8, BUN 30 H, Creatinine 1.20 H, Estim Creat Clear Calc 34.42, Est GFR (MDRD) Af Amer 55 L, Est GFR (MDRD) Non-Af 46 L, BUN/Creatinine Ratio 25.0 H , Glucose 175 H, Calcium 9.4, Total Bilirubin 1.10 H, AST 43 H, ALT 33, Alkaline Phosphatase 73, Troponin I 0.124 H, Total Protein 7.6, Albumin 3.8, Globulin 3.8, Albumin/Globulin Ratio 1.0, Lipase 222 08/31/20 03:00: Urine Color Yellow, Urine Clarity Clear, Urine pH 6.0, Ur Specific [place] 1.015, Urine Protein Negative, Urine Glucose (UA) Normal, Urine Ketones Negative, Urine Occult Blood Negative, Urine Nitrite Negative, Urine Bilirubin Negative, Urine Urobilinogen Normal, Ur Leukocyte Esterase 100 H, Urine RBC 0 SEEN, Urine WBC 10-25 SEEN, Ur Squamous Epith Cells 0 SEEN, Urine Bacteria 0 SEEN, Urine Mucus 0 SEEN Assessment/Plan All Active Problems (Last Reviewed 08/11/20 @ 14:[address] Floyd Foster MD) Generalized weakness (Acute) Hypokalemia (Acute) Vomiting (Acute) YOSELIN (acute kidney injury) (Acute) History of non-ST elevation myocardial infarction (NSTEMI) (Resolved 03/26/20) GI bleed (Resolved 05/07/20) Chronic Problems (Last Reviewed 08/11/20 @ 14:[address] Floyd Foster MD) CAD (coronary artery disease) (Chronic) Acute exacerbation of CHF (congestive heart failure) (Chronic) Atherosclerotic heart disease [place] coronary artery w/angina pectoris (Chronic) History of coronary artery stent placement (Chronic 08/20/18) PCI of ostial and mid LCx ISR with laser atherectomy, balloon angioplasty 08/20/18 PTCA and laser atherectomy-Prox LCx 02/03/2018; POBA-ostial/prox LCx 11/09/2017; TCV-LKL-Hach LCx w/ 2.5 x 20 mm Synergy Stent, RAYMON-Distal LM-into the Ostium of LAD w/ 4.0 x 16 mm Synergy Stent 07/05/2017; POBA-Ostium and Prox LCx 04/19/2017; PCI-Rotational Hliswnfdyou-YZS-LJK with a 2.75 x 38 mm Promus Premier drug eluting stent 12/15/13; RAYMON-Mid RPLB w/ 3.0 x 28 mm Cypher and Prox RPLB w/ 3.0 x 8 mm Cypher, RAYMON- Ostium RPDA w/ 2.5 x 28 mm Cypher 09/17/2007 Chronic diastolic (congestive) heart failure (Chronic) Non-rheumatic aortic stenosis (Chronic) Essential hypertension (Chronic) Hyperlipidemia (Chronic) Diabetes mellitus, type II (Chronic) Hypothyroidism (Chronic) Schizophrenia (Chronic) Anemia (Chronic) Follows with Dr Son 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) Plan 1. Generalized weakness/debility with nausea and vomiting?admit patient to pcu floor consult case management for discharge planning, repeat CBC CMP in the morning, will maintain IV at KVO rate due to increased vascular congestion on chest x-ray. 2. Hypokalemia?replace potassium by p.o. 3. Elevated troponin?history of coronary artery disease and congestive heart failure we will cycle enzymes. Patient denies any chest pain at this time or shortness of breath 4. Hypertension?continue home medications 5. Diabetes?continue home routine medications 6. Schizophrenia?continue antipsychotics 7. Hyperlipidemia?continue statin medication 8. DVT prophylaxis?low molecular weight heparin OBSV E&M: [id number] Initial observation care L2
[2020-08-31] MEDS: Potassium Chloride 10mEq/100mL 10 MEQ/100 ML IV.SOLN. 100 MEQ IV BOLUS (04:47)
[2020-08-31] MEDS: Furosemide 40 MG/4 ML Vial IV (04:48)
[2020-08-31 05:36] LABS: Absolute Lymphocyte Count 0.81 X10^3/uL (0.83-4.51); Absolute Neutrophil Count 2.6 X10^3/uL (2.0-7.7); Basophil# 0.02 X10^3/uL; Basophil% 0.5 % (0-1); Eosinophil# 0.02 X10^3/uL; Eosinophils% 0.5 % (0-5); Hematocrit 32.4 % (37-47); Lymphocyte # 0.81 X10^3/ul (4.0); Lymphocyte % 22.1 % (19-41); Mean Corpuscular Hgb 32.1 pg (27.0-32.0); Mean Corpuscular Volume 94.5 fL (81-99); Monocyte# 0.16 X10^3/uL; Monocyte% 4.4 % (0-10); NRBC Flagged by Analyzer 0 % (0-5); Neutrophil # 2.64 X10^3/uL (2.7-7.7); Neutrophil % 72.2 % (47-70); Platelet Count 110 K/mm3 (150-450); RBC Distribution Width CV 13.8 % (11.6-14.6); RBC Distribution Width SD 47.6 fl (35.1-43.9); Red Blood Count 3.43 M/mm3 (4.2-5.4); White Blood Count 3.7 K/mm3 (4.4-11.0)
[2020-08-31] MEDS: Levothyroxine 100 MCG Tablet PO (06:04)
[2020-08-31 07:27] LABS: Anion Gap 9 (5-15); BUN 28 mg/dL (7-18); BUN/Creat Ratio 25.2 RATIO (10-20); Calcium,Total 9.1 mg/dL (8.5-10.1); Chloride 97 mmol/L (98-107); Creatinine, Serum 1.11 mg/dL (0.55-1.02); EST Glomerular Filtration Rate 50 mL/min (>60); Est Glom Filt Rate - Afr Amer 61 mL/min (>60); Estimated Creatinine Clearance 37.21 ml/min; Glucose 194 mg/dL (74-106); Sodium Level 137 mmol/L (136-145); Thyroid Stim Hormone (TSH) 0.98 uIU/mL (0.358-3.74)
[2020-08-31 07:35] LABS: Bedside Glucose 260 mg/dL (70-110)
--- NOTE | 2020-08-31 07:45 | PCM.HOSP.N ---
Hospitalist Note Patient states history of recurrent fall. Last one about a week ago. She feels that she is unstable on her ankle. Denies any dizziness. Patient was admitted with nausea and vomiting which is much improved and she tolerated her breakfast well. CT abdomen no acute abnormality. Physical exam General: Alert, Oriented x3, Cooperative HEENT: Atraumatic, PERRLA, EOMI, Normocephalic Oral: No Gingival or Mucosal Lesions/ Ulcerations Neck: Supple, No JVD, Negative Carotid Bruits Lungs: Air entry diminished in bilateral lung bases. No crepitation/rhonchi Cardiovascular: Regular rate, Regular Rhythm, Normal S1, Normal S2, No murmurs Abdomen: Bowel Sounds Present, Soft, Non Tender, Non-Distended, small reducible umbilical : No renal angle tenderness. No suprapubic tenderness. Extremities: Mild bilateral ankle edema, Capillary Refill Less than 3 Seconds Skin: No rashes, No breakdown Musculoskeletal: Mild weakness in both lower extremities, 4/5. No Tenderness to Palpation of Joints or Extremities Neurological: Cranial nerves II-XII grossly intact, Deep Tendon Reflexes 2+/4, Neuro grossly intact Psych/Mental Status: Normal Affect, Appropriate. 2D echo on 02/11/2020 Interpretation Summary The estimated ejection fraction is 55 %. Stage 1 diastolic dysfunction. The left atrium is moderately enlarged. Mild (1+) mitral valve insufficiency. Trivial tricuspid valve insufficiency. Right ventricular systolic pressure estimated to be 21 mmHg. Fusion of right and non coronary cusps. Mild aortic stenosis. This medical plan 1. Generalized weakness/debility with nausea and vomiting?admitted parts facilitator today. Discussed with the manager of case management. PT and OT. Home with home physical therapy. 2. Mild acute on chronic diastolic heart failure: Chest x-ray initially reviewed and shows mild hilar and interstitial congestion. Patient has mild elevated troponin 0 0.124, 0.1 troponin 0 0.127. Flat trend troponin. Patient does not have chest pain or shortness of breath. You may also take an additional 40 mg dose in the afternoon if you have increased swelling or weight gain 5 pounds in 1 week. 40 mg IV in the ER. On Lasix 40 mg twice daily. Started on spironolactone 25 mg daily as patient is chronic hypokalemia. On potassium supplement. Follow-up BMP, magnesium and phosphorus tomorrow a.m. 3. Elevated troponin?history of coronary artery disease and congestive heart failure we will cycle enzymes. Patient denies any chest pain at this time or shortness of breath 4. Hypertension?continue home medications 5. Diabetes type II with uncontrolled hyperglycemia: Lantus increased to 40 subcutaneously. Insulin lispro increased to 12 in subcutaneous 3 times daily with meals. continue Accu-Cheks before meals and at bedtime. 6. Schizophrenia?continue antipsychotics 7. Hyperlipidemia?continue statin medication 8. DVT prophylaxis?low molecular weight heparin Clinical Impression(s) from Imaging Studies Chest X-Ray 08/31/20 01:34 IMPRESSION: Possible mild vascular congestion. Clinical correlation recommended. Abdomen/Pelvis CT 08/31/20 01:35 IMPRESSION: Possible constipation. Mild diverticulosis with no signs of diverticulitis. No bowel obstruction. Findings suggestive of cirrhosis. No signs of ascites. Possible fibromatous uterus, remainder of the pelvis structures unremarkable. Microbiology Past 72 Hours 08/31/20 01:50 Mucosa - Nose SARS-CoV-2 Antigen (Rapid) - Final Laboratory Results 08/31/20 02:05: WBC 4.1 L, RBC 3.30 L, Hgb 10.7 L, Hct 31.6 L, MCV 95.8, MCH 32.4 H, MCHC 33.9, RDW Std Deviation 48.9 H, RDW Coeff of Conchis 13.9, Plt Count 113 L, MPV 10.1, Immature Gran % (Auto) 0.500, Neut % (Auto) 65.5, Lymph % (Auto) 25.2, [place] % (Auto) 6.1, Eos % (Auto) 2.2, Baso % (Auto) 0.5, Absolute Neuts (auto) 2.7, Absolute Lymphs (auto) 1.04, Nucleated RBC % 0 08/31/20 02:05: Sodium 138, Potassium 3.0 L, Chloride 97 L, Carbon Dioxide 33.0 H, Anion Gap 8, BUN 30 H, Creatinine 1.20 H, Estim Creat Clear Calc 34.42, Est GFR (MDRD) Af Amer 55 L, Est GFR (MDRD) Non-Af 46 L, BUN/Creatinine Ratio 25.0 H, Glucose 175 H, Calcium 9.4, Total Bilirubin 1.10 H, AST 43 H, ALT 33, Alkaline Phosphatase 73, Troponin I 0.124 H, Total Protein 7.6, Albumin 3.8, Globulin 3.8, Albumin/Globulin Ratio 1.0, Lipase 222 08/31/20 03:00: Urine Color Yellow, Urine Clarity Clear, Urine pH 6.0, Ur Specific [place] 1.015, Urine Protein Negative, Urine Glucose (UA) Normal, Urine Ketones Negative, Urine Occult Blood Negative, Urine Nitrite Negative, Urine Bilirubin Negative, Urine Urobilinogen Normal, Ur Leukocyte Esterase 100 H, Urine RBC 0 SEEN, Urine WBC 10-25 SEEN, Ur Squamous Epith Cells 0 SEEN, Urine Bacteria 0 SEEN, Urine Mucus 0 SEEN 08/31/20 05:20: WBC 3.7 L, RBC 3.43 L, Hgb 11.0 L, Hct 32.4 L, MCV 94.5, MCH 32.1 H, MCHC 34.0, RDW Std Deviation 47.6 H, RDW Coeff of Conchis 13.8, Plt Count 110 L, MPV 10.0, Immature Gran % (Auto) 0.300, Neut % (Auto) 72.2 H, Lymph % (Auto) 22.1, [place] % (Auto) 4.4, Eos % (Auto) 0.5, Baso % (Auto) 0.5, Absolute Neuts (auto) 2.6, Absolute Lymphs (auto) 0.81 L, Nucleated RBC % 0 08/31/20 05:20: Sodium 137, Potassium 3.0 L, Chloride 97 L, Carbon Dioxide 31.0, Anion Gap 9, BUN 28 H, Creatinine 1.11 H, Estim Creat Clear Calc 37.21, Est GFR (MDRD) Af Amer 61, Est GFR (MDRD) Non-Af 50 L, BUN/Creatinine Ratio 25.2 H, Glucose 194 H, Calcium 9.1, Troponin I 0.124 H, TSH 0.98 08/31/20 05:20: Phosphorus 3.0 08/31/20 07:30: POC Glucose 260 H 08/31/20 07:39: Magnesium 1.9, Troponin I 0.127 H 08/31/20 12:03: POC Glucose 232 H
[2020-08-31 08:11] LABS: Magnesium 1.9 mg/dL (1.6-2.6)
[2020-08-31] MEDS: Insulin Lispro 100 UNIT/ML INSULN.PEN 8 UNIT SC ×2 (08:58→12:05)
[2020-08-31] MEDS: Aspirin 81 MG TAB.CHEW PO (09:00)
[2020-08-31] MEDS: Carvedilol 3.125 MG TABLET PO ×2 (09:00→16:23)
[2020-08-31] MEDS: Ferrous Sulfate 325 MG Tablet PO (09:01)
[2020-08-31] MEDS: Multivitamins,Therapeutic Tablet 1 TABLET PO (09:01)
[2020-08-31] MEDS: Spironolactone 25 MG Tablet PO (10:18)
[2020-08-31] MEDS: Isosorbide Mononitrate 30 MG Tablet 90 MG PO (10:18)
[2020-08-31] MEDS: Furosemide 40 MG Tablet PO ×2 (10:18→16:23)
[2020-08-31] MEDS: Ranolazine 500 MG Tablet 1000 MG PO ×2 (10:19→21:31)
[2020-08-31] MEDS: Clopidogrel Bisulfate 75 MG Tablet PO (10:19)
[2020-08-31] MEDS: Mirabegron 25 MG TAB.ER.24H PO (10:19)
[2020-08-31] MEDS: Pantoprazole Sodium 40 MG Tablet PO ×2 (10:19→21:30)
[2020-08-31] MEDS: Ascorbic Acid 500 MG Tablet PO (10:19)
--- NOTE | 2020-08-31 11:42 | CASEMGMT ---
Patient is known to Social Work from previous admissions. She is active with [facility] through [facility]. Her Hvac Sheet Metal Installer Helper is Helena. SUAD called Helena and left her a voice mail letting her know patient is in the hospital. SUAD will also check with patient to see if she is still active with [facility]. She was also recently referred to [facility]. Karina SERRATO MSW
--- NOTE | 2020-08-31 12:01 | CASEMGMT ---
SW called [facility] and spoke with Viktoria. SW let her know about patient's admission to [facility]. SW obtained their fax number for discharge instructions. [facility] phone: [phone] and fax: [phone]. Karian GUTHRIE
[2020-08-31] MEDS: Losartan Potassium 25 MG Tablet PO (12:06)
[2020-08-31 12:25] LABS: Bedside Glucose 232 mg/dL (70-110)
[2020-08-31] MEDS: Insulin Lispro 100 UNIT/ML INSULN.PEN 12 UNIT SC (16:22)
[2020-08-31 16:36] LABS: Bedside Glucose 127 mg/dL (70-110)
[2020-08-31] MEDS: Acetaminophen 325 MG Tablet 650 MG PO (21:29)
[2020-08-31] MEDS: Isosorbide Mononitrate 60 MG Tablet PO (21:30)
[2020-08-31] MEDS: Pravastatin 80 MG Tablet PO (21:30)
--- NOTE | 2020-08-31 21:30 | NURSING ---
Pt blood sugar 59, denies s/sx of hypoglycemia, states I usually feel hungry. Pt given vanilla ice cream per request. No neuro deficits noted.
[2020-08-31 22:50] LABS: Bedside Glucose 59 mg/dL (70-110)
--- NOTE | 2020-09-01 00:40 | NURSING ---
Pt's blood sugar 75, offered pt another ice cream to help her sugar maintain until morning.
[2020-09-01 00:41] LABS: Bedside Glucose 75 mg/dL (70-110)
[2020-09-01 02:00] VITALS: BP 109/53; PULSE 59; RESP 13; TEMP 36.6; O2SAT 97
[2020-09-01 03:49] VITALS: PULSE 56
[2020-09-01 05:32] LABS: Absolute Lymphocyte Count 1.45 X10^3/uL (0.83-4.51); Absolute Neutrophil Count 1.4 X10^3/uL (2.0-7.7); Basophil# 0.02 X10^3/uL; Basophil% 0.6 % (0-1); Eosinophil# 0.14 X10^3/uL; Eosinophils% 4.3 % (0-5); Hematocrit 28.9 % (37-47); Hemoglobin 9.4 g/dL (12.0-15.0); Lymphocyte # 1.45 X10^3/ul (4.0); Lymphocyte % 44.8 % (19-41); Mean Corp Hgb Conc 32.5 g/dL (32-36); Mean Corpuscular Hgb 32.3 pg (27.0-32.0); Mean Corpuscular Volume 99.3 fL (81-99); Mean Platelet Vol. 9.8 fl (6.2-12.0); Monocyte# 0.24 X10^3/uL; Monocyte% 7.4 % (0-10); NRBC Flagged by Analyzer 0 % (0-5); Neutrophil # 1.38 X10^3/uL (2.7-7.7); Neutrophil % 42.6 % (47-70); Platelet Count 101 K/mm3 (150-450); RBC Distribution Width CV 14.4 % (11.6-14.6); RBC Distribution Width SD 52.1 fl (35.1-43.9); Red Blood Count 2.91 M/mm3 (4.2-5.4); White Blood Count 3.2 K/mm3 (4.4-11.0)
[2020-09-01] MEDS: Levothyroxine 100 MCG Tablet PO (05:38)
[2020-09-01 05:57] LABS: Anion Gap 5 (5-15); BUN 28 mg/dL (7-18); BUN/Creat Ratio 24.3 RATIO (10-20); Calcium,Total 8.6 mg/dL (8.5-10.1); Chloride 102 mmol/L (98-107); Creatinine, Serum 1.15 mg/dL (0.55-1.02); EST Glomerular Filtration Rate 48 mL/min (>60); Est Glom Filt Rate - Afr Amer 58 mL/min (>60); Estimated Creatinine Clearance 35.92 ml/min; Glucose 71 mg/dL (74-106); Magnesium 2.1 mg/dL (1.6-2.6); Phosphorus 2.9 mg/dL (2.5-4.9); Potassium 4.1 mmol/L (3.5-5.1); Sodium Level 139 mmol/L (136-145)
[2020-09-01 07:08] VITALS: PULSE 56
[2020-09-01 07:29] VITALS: BP 114/50; PULSE 62; RESP 14; TEMP 36.7; O2SAT 99
[2020-09-01 07:31] LABS: Bedside Glucose 54 mg/dL (70-110)
[2020-09-01] MEDS: Ranolazine 500 MG Tablet 1000 MG PO (07:35)
[2020-09-01] MEDS: Multivitamins,Therapeutic Tablet 1 TABLET PO (07:35)
[2020-09-01] MEDS: Carvedilol 3.125 MG TABLET PO (07:36)
[2020-09-01] MEDS: Pantoprazole Sodium 40 MG Tablet PO (07:36)
[2020-09-01] MEDS: Ferrous Sulfate 325 MG Tablet PO (07:36)
[2020-09-01] MEDS: Furosemide 40 MG Tablet PO (07:36)
[2020-09-01] MEDS: Clopidogrel Bisulfate 75 MG Tablet PO (07:36)
[2020-09-01] MEDS: Mirabegron 25 MG TAB.ER.24H PO (07:37)
[2020-09-01] MEDS: Metolazone 2.5 MG Tablet PO (07:37)
[2020-09-01] MEDS: Losartan Potassium 25 MG Tablet PO (07:38)
[2020-09-01] MEDS: Ascorbic Acid 500 MG Tablet PO (07:38)
[2020-09-01] MEDS: Spironolactone 25 MG Tablet PO (07:38)
[2020-09-01] MEDS: Aspirin 81 MG TAB.CHEW PO (07:38)
--- NOTE | 2020-09-01 08:36 | DS.PCM_ITS ---
Discharge Date and Diagnosis - Problem List Patient Problems: Active and Suspected Problems (Last Reviewed 08/11/20 @ 14:[address] Floyd Foster MD) Generalized weakness (Acute) Hypokalemia (Acute) Vomiting (Acute) YOSELIN (acute kidney injury) (Acute) Date of Admission: 08/31/20 Date of Discharge: 09/01/20 - Primary Discharge Diagnosis Acute Problems: Active Problems (Last Reviewed 08/11/20 @ 14:[address] Floyd Foster MD) Generalized weakness (Acute) Hypokalemia (Acute) Vomiting (Acute) YOSELIN (acute kidney injury) (Acute) - Secondary Discharge Diagnosis Chronic Problems: Chronic Problems (Last Reviewed 08/11/20 @ 14:[address] Floyd Foster MD) CAD (coronary artery disease) (Chronic) Acute exacerbation of CHF (congestive heart failure) (Chronic) Atherosclerotic heart disease [place] coronary artery w/angina pectoris (Chronic) History of coronary artery stent placement (Chronic 08/20/18) PCI of ostial and mid LCx ISR with laser atherectomy, balloon angioplasty 08/20/18 PTCA and laser atherectomy-Prox LCx 02/03/2018; POBA-ostial/prox LCx 11/09/2017; JWL-DON-Wzoe LCx w/ 2.5 x 20 mm Synergy Stent, RAYMON-Distal LM-into the Ostium of LAD w/ 4.0 x 16 mm Synergy Stent 07/05/2017; POBA-Ostium and Prox LCx 04/19/2017; PCI-Rotational Vpdcghjhsvo-LOY-RSV with a 2.75 x 38 mm Promus Premier drug eluting stent 12/15/13; RAYMON-Mid RPLB w/ 3.0 x 28 mm Cypher and Prox RPLB w/ 3.0 x 8 mm Cypher, RAYMON- Ostium RPDA w/ 2.5 x 28 mm Cypher 09/17/2007 Chronic diastolic (congestive) heart failure (Chronic) Non-rheumatic aortic stenosis (Chronic) Essential hypertension (Chronic) Hyperlipidemia (Chronic) Diabetes mellitus, type II (Chronic) Hypothyroidism (Chronic) Schizophrenia (Chronic) Anemia (Chronic) Follows with Dr Son 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) Hospital Course and Treatment Operations: None Summary of Care Provided: The patient is a 80 year old F with multiple comorbidities was admitted with generalized weakness, nausea and vomiting for past 2 days. Patient states history of recurrent fall. Last one about a week ago. Denies any dizziness. CT abdomen no acute abnormality, possible constipation. No bowel obstruction. 1. 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 Discussed with the manager of case. PT recommended further physical therapy but patient wants to go home therefore discharged home with home physical therapy. Nausea and vomiting resolved. 2. Mild acute on chronic diastolic heart failure: Chest x-ray initially reviewed and shows mild hilar and interstitial congestion. Patient has mild elevated troponin 0 0.124, 0.1 troponin 0 0.127 probably from heart failure. Flat indeterminant troponin. Patient does not have chest pain or shortness of breath. Patient had Lasix 40 mg IV in ED and then 40 mg twice daily continued. Started on spironolactone 25 mg daily as patient is chronic hypokalemia. On potassium supplement. Potassium level corrected 4.1. Patient is discharged on spironolactone 12.5 mg daily as it is preferred for heart failure and patient also history of CHENEY treated cirrhosis but normal spleen and pancreas as reported in CT abdomen./Creatinine is stable. Potassium supplement discontinued. Serum magnesium and phosphorus level normal. Follow-up BMP in 1 week with PCP. Follow-up BMP, magnesium and phosphorus tomorrow a.m. 2D echo on 02/11/2020 Interpretation Summary The estimated ejection fraction is 55 %. Stage 1 diastolic dysfunction. The left atrium is moderately enlarged. Mild (1+) mitral valve insufficiency. Trivial tricuspid valve insufficiency. Right ventricular systolic pressure estimated to be 21 mmHg. Fusion of right and non coronary cusps. Mild aortic stenosis. 3. Elevated troponin?most likely from heart failure. As mentioned above. Patient denies any chest pain at this time or shortness of breath 4. Hypertension?continue home medications 5. Diabetes type II with uncontrolled hyperglycemia: Episode of hypoglycemia after increasing the dose of Lantus and Humalog insulin. Patient was put back on her home dose. Follow-up PCP. 6. Schizophrenia?continue antipsychotics 7. Hyperlipidemia?continue statin medication 8. DVT prophylaxis?low molecular weight heparin Discharge medication reconciliation done. Discharge follow-up instructions completed. Discharge process discussed with the patient and all questions were answered to patient's satisfaction. Total time spent, exact 35 minutes on discharge meds reconciliation, examination, coordination of care with nurses and ancillary staff, review of imaging and blood test and discussion with the patient on follow-up instructions Clinical Impression(s) from Imaging Studies Chest X-Ray 08/31/20 01:34 IMPRESSION: Possible mild vascular congestion. Clinical correlation recommended. Abdomen/Pelvis CT 08/31/20 01:35 IMPRESSION: Possible constipation. Mild diverticulosis with no signs of diverticulitis. No bowel obstruction. Findings suggestive of cirrhosis. No signs of ascites. Possible fibromatous uterus, remainder of the pelvis structures unremarkable. Patient Problems: Active and Suspected Problems (Last Reviewed 08/11/20 @ 14:[address] Floyd Foster MD) Generalized weakness (Acute) Hypokalemia (Acute) Vomiting (Acute) YOSELIN (acute kidney injury) (Acute) Objective: Seen and examined. Heart rate and blood pressure in normal range. No fever. Patient on hypoglycemia, glucose 75, but parts order and stock clerk and 54 in the morning. Meal insulin was held and after breakfast it is normal 124. It happened after Lantus and blood insulin was increased yesterday. Physical exam General: Alert, Oriented x3, Cooperative HEENT: Atraumatic, PERRLA, EOMI, Normocephalic Oral: No Gingival or Mucosal Lesions/ Ulcerations Neck: Supple, No JVD, Negative Carotid Bruits Lungs: Air entry diminished in bilateral lung bases. No crepitation/rhonchi Cardiovascular: Regular rate, Regular Rhythm, Normal S1, Normal S2, No murmurs Abdomen: Bowel Sounds Present, Soft, Non Tender, Non-Distended, small reducible umbilical : No renal angle tenderness. No suprapubic tenderness. Extremities: Mild bilateral ankle edema, Capillary Refill Less than 3 Seconds Skin: No rashes, No breakdown Musculoskeletal: Mild weakness in both lower extremities, 4/5. No Tenderness to Palpation of Joints or Extremities Neurological: Cranial nerves II-XII grossly intact, Deep Tendon Reflexes 2+/4, Neuro grossly intact Psych/Mental Status: Normal Affect, Appropriate. - Physical Exam Vitals/I&O's: Vital Signs Temp Pulse Resp BP Pulse Ox 98.1 F 62 14 114/50 L 99 09/01/20 07:29 09/01/20 07:29 09/01/20 07:29 09/01/20 07:29 09/01/20 07:29 Oxygen Delivery Method Room Air Weight: 192 lb 3.889 oz Body Mass Index (BMI) 31.0 Finger Stick Blood Glucose 270 Intake and Output for Last 24 Hours 08/30/20 08/31/20 09/01/20 23:59 23:59 23:59 Intake Total 1355 / 1355 Balance 1355 / 1355 Microbiology Past 72 Hours 08/31/20 01:50 Mucosa - Nose SARS-CoV-2 Antigen (Rapid) - Final Laboratory Results 08/31/20 12:03: POC Glucose 232 H 08/31/20 16:21: POC Glucose 127 H 08/31/20 21:28: POC Glucose 59 L 09/01/20 00:38: POC Glucose 75 09/01/20 05:18: WBC 3.2 L, RBC 2.91 L, Hgb 9.4 L, Hct 28.9 L, MCV 99.3 H D, MCH 32.3 H, MCHC 32.5, RDW Std Deviation 52.1 H, RDW Coeff of Conchis 14.4, Plt Count 101 L, MPV 9.8, Immature Gran % (Auto) 0.300, Neut % (Auto) 42.6 L, Lymph % (Auto) 44.8 H, [facility] % (Auto) 7.4, Eos % (Auto) 4.3, Baso % (Auto) 0.6, Absolute Neuts (auto) 1.4 L, Absolute Lymphs (auto) 1.45, Nucleated RBC % 0 09/01/20 05:18: Sodium 139, Potassium 4.1, Chloride 102, Carbon Dioxide 32.0, Anion Gap 5, BUN 28 H, Creatinine 1.15 H, Estim Creat Clear Calc 35.92, Est GFR (MDRD) Af Amer 58 L, Est GFR (MDRD) Non-Af 48 L, BUN/Creatinine Ratio 24.3 H, Glucose 71 L, Calcium 8.6, Phosphorus 2.9, Magnesium 2.1 09/01/20 07:27: POC Glucose 54 L Current Medications Acetaminophen (Acetaminophen 325 Mg Tablet) 650 mg PO Q6H PRN PRN PRN Reason: Pain Score 1-10/Temp > 100.7 F Last Admin: 08/31/20 21:29 Dose: 650 mg Documented by: Albuterol Sulfate (Albuterol 2.5 Mg/3 Ml Vial.Neb.) 2.5 mg INHALATION Q4H PRN PRN PRN Reason: SHORTNESS OF BREATH Ascorbic Acid (Ascorbic Acid 500 Mg Tablet) 500 mg PO DAILY [facility] Last Admin: 09/01/20 07:38 Dose: 500 mg Documented by: Aspirin (Aspirin 81 Mg Tab.Chew) 81 mg PO DAILY@0800 [facility] Last Admin: 09/01/20 07:38 Dose: 81 mg Documented by: Carvedilol (Carvedilol 3.125 Mg Tablet) 3.125 mg PO BIDCM [facility] Last Admin: 09/01/20 07:36 Dose: 3.125 mg Documented by: Cholecalciferol (Cholecalciferol (Vit D3) 1,000 Unit (25mcg)) 5,000 unit PO DAILY [facility] Last Admin: 09/01/20 07:37 Dose: 5,000 unit Documented by: Clopidogrel Bisulfate (Clopidogrel Bisulfate 75 Mg Tablet) 75 mg PO DAILY [facility] Last Admin: 09/01/20 07:36 Dose: 75 mg Documented by: Ferrous Sulfate (Ferrous Sulfate 325 Mg Tablet) [facility] Last Admin: 09/01/20 07:36 Dose: 325 mg Documented by: Furosemide (Furosemide 40 Mg Tablet) 40 mg PO BID@1000,1800 [facility] Last Admin: 09/01/20 07:36 Dose: 40 mg Documented by: Insulin Glargine (Insulin Glargine 100 Units/Ml Pen) 40 units SC DAILY [facility] Insulin Human Lispro (Insulin Lispro 100 Unit/Ml Insuln.Pen) 12 unit SC TIDCM [facility] Last Admin: 09/01/20 07:33 Dose: Not Given Documented by: Isosorbide Mononitrate (Isosorbide Mononitrate 60 Mg Tablet) 60 mg PO 2200 [facility] Last Admin: 08/31/20 21:30 Dose: 60 mg Documented by: Isosorbide Mononitrate (Isosorbide Mononitrate 30 Mg Tablet) 90 mg PO QAM [facility] Last Admin: 08/31/20 10:18 Dose: 90 mg Documented by: Levothyroxine Sodium (Levothyroxine 100 Mcg Tablet) 100 mcg PO DAILY@0600 [facility] Last Admin: 09/01/20 05:38 Dose: 100 mcg Documented by: Losartan Potassium (Losartan Potassium 25 Mg Tablet) 25 mg PO DAILY [facility] Last Admin: 09/01/20 07:38 Dose: 25 mg Documented by: Metolazone (Metolazone 2.5 Mg Tablet) 2.5 mg PO WeFr@1000 [facility] Last Admin: 09/01/20 07:37 Dose: 2.5 mg Documented by: Mirabegron (Mirabegron 25 Mg Tab.Er.24h) 25 mg PO DAILY [facility] Last Admin: 09/01/20 07:37 Dose: 25 mg Documented by: Multivitamins (Multivitamins,Therapeutic Tablet) [facility] Last Admin: 09/01/20 07:35 Dose: 1 tablet Documented by: Ondansetron HCl (Ondansetron 4 Mg/2 Ml Vial) 4 mg IV Q8H PRN PRN PRN Reason: NAUSEA/VOMITING Pantoprazole Sodium (Pantoprazole Sodium 40 Mg Tablet) 40 mg PO BID [facility] Last Admin: 09/01/20 07:36 Dose: 40 mg Documented by: Potassium Chloride (Potassium Chloride 20 Meq Tablet) 40 meq [facility] Stop: 09/02/20 08:01 Last Admin: 09/01/20 07:35 Dose: 40 meq Documented by: Pravastatin Sodium (Pravastatin 80 Mg Tablet) 80 mg PO DAILY@2200 [facility] Last Admin: 08/31/20 21:30 Dose: 80 mg Documented by: Ranolazine (Ranolazine 500 Mg Tablet) 1,000 mg PO BID [facility] Last Admin: 09/01/20 07:35 Dose: 1,000 mg Documented by: Sodium Chloride (0.9% Saline Lock 10 Ml Syringe) 10 - 40 ml IV UD PRN PRN Reason: SALINE FLUSH Spironolactone (Spironolactone 25 Mg Tablet) 25 mg PO DAILY [facility] Last Admin: 09/01/20 07:38 Dose: 25 mg Documented by: Home Medications: Medications to take at Discharge Aspirin [Aspirin, Baby] 81 mg PO DAILY@0800 06/30/17 Nitroglycerin [Nitrostat] 0.4 mg SL PRN PRN 06/30/17 Multivitamins,Therapeutic [Multivitamin] 1 tab PO DAILY 02/01/18 ascorbic acid (vitamin C) 500 mg tablet 500 mg PO DAILY 09/13/18 Insulin Glargine,Hum.rec.anlog [Touroman Solostar] 34 unit SC DAILY 04/23/19 Carvedilol [Coreg] 3.125 mg PO BID 06/24/19 Cholecalciferol (Vitamin D3) [Vitamin D3] 5,000 unit PO DAILY 06/24/19 Levothyroxine [Synthroid] 100 mcg PO DAILY 07/24/19 Folic Acid 1 mg PO DAILY 02/10/20 Furosemide 40 mg PO BID 02/10/20 Insulin Regular, Human [Humulin R] 8 unit SQ TIDCM 02/10/20 Acetaminophen [Tylenol Tablet] 650 mg PO Q6H PRN PRN tab 03/29/20 Pantoprazole Sodium [Protonix] 40 mg PO BID #60 tab 03/29/20 losartan 25 mg tablet 25 mg PO DAILY #30 tab 04/29/20 isosorbide mononitrate 60 mg tablet,extended release 24 hr 60 mg PO BID tab 06/17/20 metolazone 2.5 mg tablet 2.5 mg PO .COMPLEX tab 06/17/20 mirabegron 25 mg tablet,extended release 24 hr 25 mg PO DAILY 06/17/20 albuterol sulfate 90 mcg/actuation aerosol inhaler 2 puff INHALATION Q6H PRN 08/11/20 ferrous sulfate 325 mg (65 mg iron) tablet,delayed release 325 mg PO DAILY tab 08/11/20 pravastatin 80 mg tablet 80 mg PO DAILY #90 tab 08/13/20 ranolazine 1,000 mg tablet,extended release,12 hr 1,000 mg PO BID #60 tab 08/20/20 Clopidogrel Bisulfate [Clopidogrel] 75 mg PO DAILY #30 tab 09/01/20 Spironolactone [Aldactone] 12.5 mg PO DAILY #30 tab 09/01/20 Following Prescriptions Were Given to Patient: Spironolactone [Aldactone] 12.5 mg PO DAILY #30 tab Transmission Status: Pending to [facility] Primary Care Physician: Diana Cohen MD [Primary Care Provider] - Medical Necessity - Tobacco Use Smoking Status: Never smoker Meaningful Use Info Meaningful Use Diagnoses (Choose all that apply): CHF - CHF CAROL/ARB ordered at discharge?: No Reason CAROL/ARB not ordered?: Allergy Documented LVEF (%): 55 OBSV E&M: 99048 Observation care discharge
--- NOTE | 2020-09-01 08:36 | PCM.DC ---
- Discharge Diagnoses Current Active Problems: Current Active and Chronic Problems (Last Reviewed 08/11/20 @ 14:[address] Floyd Foster MD) CAD (coronary artery disease) (Chronic) Generalized weakness (Acute) Hypokalemia (Acute) Vomiting (Acute) YOSELIN (acute kidney injury) (Acute) Acute exacerbation of CHF (congestive heart failure) (Chronic) History of coronary artery stent placement (Chronic 08/20/18) PCI of ostial and mid LCx ISR with laser atherectomy, balloon angioplasty 08/20/18 PTCA and laser atherectomy-Prox LCx 02/03/2018; POBA-ostial/prox LCx 11/09/2017; VTH-NLN-Xzie LCx w/ 2.5 x 20 mm Synergy Stent, RAYMON-Distal LM-into the Ostium of LAD w/ 4.0 x 16 mm Synergy Stent 07/05/2017; POBA-Ostium and Prox LCx 04/19/2017; PCI-Rotational Dvvglsyywel-GYS-DTT with a 2.75 x 38 mm Promus Premier drug eluting stent 12/15/13; RAYMON-Mid RPLB w/ 3.0 x 28 mm Cypher and Prox RPLB w/ 3.0 x 8 mm Cypher, RAYMON- Ostium RPDA w/ 2.5 x 28 mm Cypher 09/17/2007 Chronic diastolic (congestive) heart failure (Chronic) Non-rheumatic aortic stenosis (Chronic) Essential hypertension (Chronic) Hyperlipidemia (Chronic) Diabetes mellitus, type II (Chronic) Hypothyroidism (Chronic) Schizophrenia (Chronic) Anemia (Chronic) Follows with Dr Son 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) You will use the following diet at home:: Cardiac Your food should be the consistency of: Regular Discharge Activity: May Not Drive Weight Bearing Status: Weight bearing as tolerated Call your doctor if you observe: Fever of 101 or Higher, Coldness, Increased Pain, Numbness or Tingling, Change in Color, Inability to urinate, Inability to have a bowel movement, Shortness of breath, Dizziness, Fainting spells, Swelling in the ankles, Chest pain, Prolonged hiccoughing, Increased palpitations (irregular heartbeat), Calf discomfort, Uncontrolled pain Additional Instructions: Potassium was discontinued and replaced with the spironolactone. Spironolactone is preferred as patient has history of heart failure and CHENEY treated cirrhosis as documented. Follow-up BMP in [address] Cohen to check electrolytes Allergies/Adverse Reactions: Allergies aripiprazole [From Abilify] Allergy (Intermediate, Verified 08/17/20 21:33) it over powered me lisinopril Allergy (Intermediate, Verified 08/17/20 21:33) Unknown atorvastatin calcium [From Lipitor] Adverse Reaction (Verified 08/17/20 21:33) Unknown rosiglitazone maleate [From Avandia] Adverse Reaction (Verified 08/17/20 21:33) Other Medications to take at Discharge Aspirin [Aspirin, Baby] 81 mg PO DAILY@0800 06/30/17 Nitroglycerin [Nitrostat] 0.4 mg SL PRN PRN 06/30/17 Multivitamins,Therapeutic [Multivitamin] 1 tab PO DAILY 02/01/18 ascorbic acid (vitamin C) 500 mg tablet 500 mg PO DAILY 09/13/18 Insulin Glargine,Hum.rec.anlog [Toujeo Solostar] 34 unit SC DAILY 04/23/19 Carvedilol [Coreg] 3.125 mg PO BIDCM 06/24/19 Cholecalciferol (Vitamin D3) [Vitamin D3] 5,000 unit PO DAILY 06/24/19 Levothyroxine [Synthroid] 100 mcg PO DAILY 07/24/19 Folic Acid 1 mg PO DAILY 02/10/20 Furosemide 40 mg PO BID 02/10/20 Insulin Regular, Human [Humulin R] 8 unit SQ TIDCM 02/10/20 Acetaminophen [Tylenol Tablet] 650 mg PO Q6H PRN PRN tab 03/29/20 Pantoprazole Sodium [Protonix] 40 mg PO BID #60 tab 03/29/20 losartan 25 mg tablet 25 mg PO DAILY #30 tab 04/29/20 isosorbide mononitrate 60 mg tablet,extended release 24 hr 60 mg PO BID tab 06/17/20 metolazone 2.5 mg tablet 2.5 mg PO .COMPLEX tab 06/17/20 mirabegron 25 mg tablet,extended release 24 hr 25 mg PO DAILY 06/17/20 albuterol sulfate 90 mcg/actuation aerosol inhaler 2 puff INHALATION Q6H PRN 08/11/20 ferrous sulfate 325 mg (65 mg iron) tablet,delayed release 325 mg PO DAILY tab 08/11/20 pravastatin 80 mg tablet 80 mg PO DAILY #90 tab 08/13/20 ranolazine 1,000 mg tablet,extended release,12 hr 1,000 mg PO BID #60 tab 08/20/20 Clopidogrel Bisulfate [Clopidogrel] 75 mg PO DAILY #30 tab 09/01/20 Spironolactone [Aldactone] 12.5 mg PO DAILY #30 tab 09/01/20 The following prescriptions were given: Spironolactone [Aldactone] 12.5 mg PO DAILY #30 tab Transmission Status: Pending to [facility] Primary Care Physician: Diana Cohen MD [Primary Care Provider] - Please follow up with your Primary Care Physician in: In 2 weeks Test Results: Test results from this visit will be discussed in further detail at your follow-up appointment, if applicable.
[2020-09-01] MEDS: Isosorbide Mononitrate 30 MG Tablet 90 MG PO (10:43)
--- NOTE | 2020-09-01 11:29 | CASEMGMT ---
This RN CM to room to discuss discharge plan and ARMAS form at this time. This RN CM explained ARMAS at this time-pt voices understanding and signs ARMAS form at this time. Pt does not have MCR IP vs OBS booklet at bedside, so one provided to pt with a copy of ARMAS form at this time. Pt is active with [facility] and message left with Jorge at [facility] at this time. Pt declines HHC/OP at this time and is aware that if she decides she wants it once home then she can call PCP and have them order, voices understanding. Pt states 'I really don't need anyone else coming into my home at this time.' Pt states she has aide thru [facility] MWF for 3hours each day and normally gets 7 meals delivered weekly but she states she has them on hold at this time. Pt states Helena is her CM thru [facility]. Blade BORJAS is aware. Pt states she will call a cab to get home as she does not drive. Pt voices no further questions/concerns/needs at this time. SStsusie TREVINO CM
[2020-09-01 11:36] LABS: Bedside Glucose 124 mg/dL (70-110)
--- NOTE | 2020-09-01 12:16 | CASEMGMT ---
SUAD called Helena with [facility]. SUAD left her a voice mail letting her know patient is being discharged today with no additional services. SUAD also faxed her d/c information. SUAD also faxed d/c information to [facility]. Karina SERRATO MSW
--- NOTE | 2020-09-01 12:26 | PHA.DC.MC ---
Pharmacy Service has performed discharge medication reconciliation and counseling for this patient. 1. SPIRONOLACTONE 12.5MG PO DAILY The patient's discharge medication list was reviewed for discrepancies and discrepancies were resolved. Home Medications Aspirin [Aspirin, Baby] 81 mg PO DAILY@0800 06/30/17 Nitroglycerin [Nitrostat] 0.4 mg SL PRN PRN 06/30/17 Multivitamins,Therapeutic [Multivitamin] 1 tab PO DAILY 02/01/18 ascorbic acid (vitamin C) 500 mg tablet 500 mg PO DAILY 09/13/18 Insulin Glargine,Hum.rec.anlog [Toujeo Solostar] 34 unit SC DAILY 04/23/19 Carvedilol [Coreg] 3.125 mg PO BIDCM 06/24/19 Cholecalciferol (Vitamin D3) [Vitamin D3] 5,000 unit PO DAILY 06/24/19 Levothyroxine [Synthroid] 100 mcg PO DAILY 07/24/19 Folic Acid 1 mg PO DAILY 02/10/20 Furosemide 40 mg PO BID 02/10/20 Insulin Regular, Human [Humulin R] 8 unit SQ TIDCM 02/10/20 Acetaminophen [Tylenol Tablet] 650 mg PO Q6H PRN PRN tab 03/29/20 Pantoprazole Sodium [Protonix] 40 mg PO BID #60 tab 03/29/20 losartan 25 mg tablet 25 mg PO DAILY #30 tab 04/29/20 isosorbide mononitrate 60 mg tablet,extended release 24 hr 60 mg PO BID tab 06/17/20 metolazone 2.5 mg tablet 2.5 mg PO .COMPLEX tab 06/17/20 mirabegron 25 mg tablet,extended release 24 hr 25 mg PO DAILY 06/17/20 albuterol sulfate 90 mcg/actuation aerosol inhaler 2 puff INHALATION Q6H PRN 08/11/20 ferrous sulfate 325 mg (65 mg iron) tablet,delayed release 325 mg PO DAILY tab 08/11/20 pravastatin 80 mg tablet 80 mg PO DAILY #90 tab 08/13/20 ranolazine 1,000 mg tablet,extended release,12 hr 1,000 mg PO BID #60 tab 08/20/20 Clopidogrel Bisulfate [Clopidogrel] 75 mg PO DAILY #30 tab 09/01/20 Spironolactone [Aldactone] 12.5 mg PO DAILY #30 tab 09/01/20 The patient was counseled on the following discharge medications and changes in medications for homegoing were reviewed. The Reason for Use, instructions for use, and potential side effects were reviewed for all new medications. The patient's questions regarding all of their medications were answered. The patient was able to verbally demonstrate an understanding of their discharge medications. Patient counseled by director of pharmacy
--- NOTE | 2020-09-02 14:11 | CASEMGMT ---
Call back from Jorge at [facility] and she states that pt is no longer active with them at this time. Rolando TREVINO CM
== END 2020-09-01 11:34 | disposition home or self-care (01) ==
LOC: ED 03:36 → PCU 04:25
PROVIDERS: Admitting Provider Family Medicine; Emergency Provider Emergency Medicine; PCP Internal Medicine; Visit Provider Internal Medicine
DX: R53.1 Weakness (principal); E87.6 Hypokalemia; N17.9 Acute kidney failure, unspecified; I25.10 Atherosclerotic heart disease of native coronary artery without angina pectoris; G89.29 Other chronic pain; E78.5 Hyperlipidemia, unspecified; I11.0 Hypertensive heart disease with heart failure; I50.33 Acute on chronic diastolic (congestive) heart failure; E03.9 Hypothyroidism, unspecified; I25.2 Old myocardial infarction; K75.81 Nonalcoholic steatohepatitis (NASH); F20.9 Schizophrenia, unspecified; Z95.5 Presence of coronary angioplasty implant and graft; E11.9 Type 2 diabetes mellitus without complications; E66.9 Obesity, unspecified; Z68.31 Body mass index [BMI] 31.0-31.9, adult; R29.6 Repeated falls; Z79.899 Other long term (current) drug therapy; Z79.82 Long term (current) use of aspirin; Z79.02 Long term (current) use of antithrombotics/antiplatelets; Z79.4 Long term (current) use of insulin
CPT/HCPCS: 36415; 71045; 74176; 80048; 80053; 81001; 82962; 83690; 83735; 84100; 84443; 84484; 85025; 87077; 87086; 87088; 87186; 87426; 93005; 96361; 96374; 96375; 97110; 97162; 97166; 99218; 99285; J7030; A4216; G0378; J1940; J2405

== ENCOUNTER 2020-09-13 18:47 | Observation (INO) | payer MEDICARE, MEDICAID, SELFPAY ==
[2020-08-31 05:12] VITALS: BMI 31.0
[2020-09-13] VITALS (7 sets, daily range): BP systolic 118–134; BP diastolic 48–76; PULSE 72–81; RESP 12–18; TEMP 36.7–36.9; O2SAT 99–100; BMI 31.9; BMI 29.7
--- NOTE | 2020-09-13 18:57 | ED.RN ---
NO OLD EKG.
--- NOTE | 2020-09-13 19:24 | EKG12_ITS ---
Test Reason : CP ADMIT Blood Pressure : / mmHG Vent. Rate : 067 BPM Atrial Rate : 067 BPM P-R Int : 166 ms QRS Dur : 096 ms QT Int : 486 ms P-R-T Axes : 054 -20 -51 degrees QTc Int : 513 ms Normal sinus rhythm ST & T wave abnormality, consider inferior ischemia ST & T wave abnormality, consider anterolateral ischemia Prolonged QT Abnormal ECG Confirmed by JUAN ALBERTO CHEW, RC ([id number]), proposal editor MAO MAIER ([id number]) on 09/15/2020 9:00:03 AM Referred By: DR KRUSE Confirmed By:RC AVENDANO MD
[2020-09-13] MEDS: Aspirin 81 MG TAB.CHEW 324 MG PO (19:37)
--- NOTE | 2020-09-13 19:38 | RAD_ITS ---
STUDY: X-RAY CHEST REASON FOR EXAM: Female, 80 years old. EMESIS THIS AM, CHEST PAIN STARTED AROUND 1030, EMESIS THIS EVENING, COUGH TECHNIQUE: Single AP portable view of the chest. COMPARISON: August 31, 2020 FINDINGS: The lungs are clear and expanded. There is no demonstrated pleural abnormality. Normal size heart. Normal mediastinum and rell. Normal visualized pulmonary arteries. Normal visualized aortic arch and descending thoracic aorta. There is demineralization of the osseous structures. There is degenerative change of the spine. Normal visualized ribs, clavicles, and shoulders. There is no demonstrated abnormality of the visualized soft tissue structures of the upper abdomen. RAD/Chest 1 View (Portable) IMPRESSION: Degenerative changes, as described above. No demonstrated acute cardiopulmonary process. Electronically Signed: Manny Lopez MD at 20:03 EST , Service support ,
[2020-09-13 19:44] LABS: Absolute Neutrophil Count 2.8 X10^3/uL (2.0-7.7); Basophil# 0.02 X10^3/uL; Basophil% 0.5 % (0-1); Eosinophil# 0.09 X10^3/uL; Eosinophils% 2.2 % (0-5); Hematocrit 24.4 % (37-47); Hemoglobin 7.9 g/dL (12.0-15.0); Lymphocyte % 24.1 % (19-41); Mean Corp Hgb Conc 32.4 g/dL (32-36); Mean Corpuscular Hgb 32.6 pg (27.0-32.0); Mean Corpuscular Volume 100.8 fL (81-99); Mean Platelet Vol. 9.9 fl (6.2-12.0); Monocyte# 0.22 X10^3/uL; Monocyte% 5.3 % (0-10); NRBC Flagged by Analyzer 0 % (0-5); Neutrophil # 2.81 X10^3/uL (2.7-7.7); Neutrophil % 67.7 % (47-70); Platelet Count 134 K/mm3 (150-450); RBC Distribution Width CV 15.5 % (11.6-14.6); RBC Distribution Width SD 56.3 fl (35.1-43.9); Red Blood Count 2.42 M/mm3 (4.2-5.4); White Blood Count 4.2 K/mm3 (4.4-11.0)
[2020-09-13 20:05] LABS: Anion Gap 6 (5-15); BUN 36 mg/dL (7-18); BUN/Creat Ratio 28.6 RATIO (10-20); Calcium,Total 9.6 mg/dL (8.5-10.1); Chloride 97 mmol/L (98-107); Creatinine, Serum 1.26 mg/dL (0.55-1.02); EST Glomerular Filtration Rate 43 mL/min (>60); Est Glom Filt Rate - Afr Amer 52 mL/min (>60); Estimated Creatinine Clearance 32.78 ml/min; Glucose 397 mg/dL (74-106); Potassium 4.1 mmol/L (3.5-5.1); Sodium Level 133 mmol/L (136-145)
--- NOTE | 2020-09-13 21:43 | HP.PCM_ITS ---
History of Present Illness Date of Admission: 09/13/20 Chief Complaint: nausea, vomiting, The patient is a 80 year old F with an extensive PMH s outlined who was admitted with a complaint of chest pain and vomiting. She took 3 nitro for the pain, but it didnt help. She had ST depression in her V3-V6, which was persistent and was also seen on repeat EKG. She also complained of intermittent rectal bleeding, and hemoglobin was 7.9 on admission, with a baseline of ~ 9. She denied any lightheadedness or dizziness or palpitations or diarrhea. Review of systems otherwise negative. Vitals in the ED showed temperature of 98.1 Fahrenheit with blood pressure 130/53, pulse rate of 76 and respiratory of 18. She was saturating at 99% on room air. Chemistry showed sodium of 133 with creatinine of 1.26 and troponin of 0.184. CBC showed hemoglobin of 7.9 with WBC of 4.2 and platelets of 134. This x-ray showed no acute cardiopulmonary process. She has been admitted to be managed for chest pain and vomiting likely due to demand ischemia from acute on chronic anemia. Stool for occult blood done in the ED w as negative. [] Past Medical History Past Medical History (Chronic Problems): Chronic Problems (Last Reviewed 08/11/20 @ 14:[address] Floyd Foster MD) CAD (coronary artery disease) (Chronic) Acute exacerbation of CHF (congestive heart failure) (Chronic) Atherosclerotic heart disease [place] coronary artery w/angina pectoris (Chronic) History of coronary artery stent placement (Chronic 08/20/18) PCI of ostial and mid LCx ISR with laser atherectomy, balloon angioplasty 08/20/18 PTCA and laser atherectomy-Prox LCx 02/03/2018; POBA-ostial/prox LCx 11/09/2017; CQM-MKD-Kfjk LCx w/ 2.5 x 20 mm Synergy Stent, RAYMON-Distal LM-into the Ostium of LAD w/ 4.0 x 16 mm Synergy Stent 07/05/2017; POBA-Ostium and Prox LCx 04/19/2017; PCI-Rotational Ynqgkpagrsx-RCP-BNS with a 2.75 x 38 mm Promus Premier drug eluting stent 12/15/13; RAYMON-Mid RPLB w/ 3.0 x 28 mm Cypher and Prox RPLB w/ 3.0 x 8 mm Cypher, RAYMON- Ostium RPDA w/ 2.5 x 28 mm Cypher 09/17/2007 Chronic diastolic (congestive) heart failure (Chronic) Non-rheumatic aortic stenosis (Chronic) Essential hypertension (Chronic) Hyperlipidemia (Chronic) Diabetes mellitus, type II (Chronic) Hypothyroidism (Chronic) Schizophrenia (Chronic) Anemia (Chronic) Follows with Dr Son Liver cirrhosis secondary to CEHNEY (nonalcoholic steatohepatitis) (Chronic) Medical History: Medical History (Last Reviewed 08/11/20 @ 14:[address] Floyd Foster MD) Atherosclerotic heart disease [place] coronary artery w/angina pectoris (Chronic) I25.119 History of non-ST elevation myocardial infarction (NSTEMI) (Resolved) Onset Date: 03/26/20 I25.2 08/16/2018, 06/2019, 07/25/2019, 02/10/2020 Chronic diastolic (congestive) heart failure (Chronic) I50.32 Non-rheumatic aortic stenosis (Chronic) I35.0 Essential hypertension (Chronic) I10 Hyperlipidemia (Chronic) E78.5 Diabetes mellitus, type II (Chronic) E11.9 Hypothyroidism (Chronic) E03.9 Schizophrenia (Chronic) F20.9 Anemia (Chronic) D64.[address] Son 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) K75.81, K74.60 GI bleed (Resolved) Onset Date: 05/07/20 K92.2 Obesity (BMI 30.0-34.9) E66.9 Pancytopenia D61.818 Thrombocytopenia D69.6 Acute respiratory failure with hypoxia J96.01 Acute respiratory failure with hypoxia and hypercapnia J96.01, J96.02 Lactic acidosis E87.2 Postoperative haemorrhage Mitral valve insufficiency (Inactive) I34.0 NSTEMI (non-ST elevated myocardial infarction) (Inactive) I21.4 Non-rheumatic mitral regurgitation (Inactive) I34.0 Nonrheumatic tricuspid valve regurgitation (Inactive) I36.1 Tricuspid valve insufficiency (Inactive) I07.1 Allergies aripiprazole [From Abilify] Allergy (Intermediate, Verified 09/13/20 18:54) it over powered me lisinopril Allergy (Intermediate, Verified 09/13/20 18:54) Unknown atorvastatin calcium [From Lipitor] Adverse Reaction (Verified 09/13/20 18:54) Unknown rosiglitazone maleate [From AvApervitaia] Adverse Reaction (Verified 09/13/20 18:54) Other Home Medications: Ambulatory Orders Medication Instructions Recorded Aspirin [Aspirin, Baby] 81 mg PO DAILY@0800 06/30/17 Nitroglycerin [Nitrostat] 0.4 mg SL PRN PRN 06/30/17 Multivitamins,Therapeutic 1 tab PO DAILY 02/01/18 [Multivitamin] ascorbic acid (vitamin C) 500 mg 500 mg PO DAILY 09/13/18 tablet Insulin Glargine,Hum.rec.anlog 34 unit SC DAILY 04/23/19 [Toujeo Solostar] Carvedilol [Coreg] 3.125 mg PO BIDCM 06/24/19 Cholecalciferol (Vitamin D3) 5,000 unit PO DAILY 06/24/19 [Vitamin D3] Levothyroxine [Synthroid] 100 mcg PO DAILY 07/24/19 Folic Acid 1 mg PO DAILY 02/10/20 Furosemide 40 mg PO BID 02/10/20 Insulin Regular, Human [Humulin R] 8 unit SQ TIDCM 02/10/20 Acetaminophen [Tylenol Tablet] 650 mg PO Q6H PRN PRN tab 03/29/20 Pantoprazole Sodium [Protonix] 40 mg PO BID #60 tab 03/29/20 losartan 25 mg tablet 25 mg PO DAILY #30 tab 04/29/20 metolazone 2.5 mg tablet 2.5 mg PO .COMPLEX tab 06/17/20 mirabegron 25 mg tablet,extended 25 mg PO DAILY 06/17/20 release 24 hr albuterol sulfate 90 mcg/actuation 2 puff INHALATION Q6H PRN 08/11/20 aerosol inhaler pravastatin 80 mg tablet 80 mg PO DAILY #90 tab 08/13/20 ranolazine 1,000 mg 1,000 mg PO BID #60 tab 08/20/20 tablet,extended release,12 hr Clopidogrel Bisulfate [Clopidogrel] 75 mg PO DAILY #30 tab 09/01/20 spironolactone 25 mg tablet 25 mg PO Q OTHER DAY #16 tab 09/02/20 isosorbide mononitrate 30 mg 30 mg PO .COMPLEX #30 tab 09/03/20 tablet,extended release 24 hr isosorbide mononitrate 60 mg 60 mg PO .COMPLEX #60 tab 09/03/20 tablet,extended release 24 hr Surgical History: Surgical History (Last Reviewed 08/11/20 @ 14:[address] Floyd Foster MD) History of coronary artery stent placement (Chronic) Onset Date: 08/20/18 Z95.5 PCI of ostial and mid LCx ISR with laser atherectomy, balloon angioplasty 08/20/18 PTCA and laser atherectomy-Prox LCx 02/03/2018; POBA-ostial/prox LCx 11/09/2017; XVP-BBU-Kcet LCx w/ 2.5 x 20 mm Synergy Stent, RAYMON-Distal LM-into the Ostium of LAD w/ 4.0 x 16 mm Synergy Stent 07/05/2017; POBA-Ostium and Prox LCx 04/19/2017; PCI-Rotational Kbeosuntflm-KVL-YRW with a 2.75 x 38 mm Promus Premier drug eluting stent 12/15/13; RAYMON-Mid RPLB w/ 3.0 x 28 mm Cypher and Prox RPLB w/ 3.0 x 8 mm Cypher, RAYMON- Ostium RPDA w/ 2.5 x 28 mm Cypher 09/17/2007 History of appendectomy Z90.49 History of cholecystectomy Z90.49 History of colonoscopy Onset Date: 04/2020 Z98.890 History of esophagogastroduodenoscopy (EGD) Onset Date: 04/2020 Z98.890 History of left heart catheterization Onset Date: 06/25/19 Z98.890 History of tonsillectomy and adenoidectomy Z98.890 History of spinal fusion (Inactive) Z98.1 anterior Surgical History: angioplasty, appendectomy, cholecystectomy, tonsillectomy, - - Spinal fusion Psychiatric History: No pertinent psych hx 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 Floyd Foster MD) Mother CAD (coronary artery disease) Father CAD (coronary artery disease) History Items: Heart Disease, - Paternal Family History: Family History (Last Reviewed 08/11/20 @ 14:[address] Floyd Foster MD) Mother CAD (coronary artery disease) Father CAD (coronary artery disease) History Items: Heart Disease VTE Information - Inpt Only VTE Present on Admission: No - Physical Exam Vitals/I&O's: Vital Signs Temp Pulse Resp BP Pulse Ox 98.1 F 76 18 130/53 H 99 09/13/20 18:47 09/13/20 21:20 09/13/20 21:20 09/13/20 21:20 09/13/20 21:20 Oxygen Delivery Method Room Air Weight: 198 lb Body Mass Index (BMI) 31.9 Finger Stick Blood Glucose 270 General: Alert, Oriented x3, Cooperative, No apparent distress HEENT: Atraumatic, PERRLA, EOMI, Normocephalic Oral: Moist Mucosa Neck: Supple, No JVD, Negative Carotid Bruits Lungs: Clear to auscultation, Normal air movement, No rhonchi, No wheeze, No rales Cardiovascular: Regular rate, Regular Rhythm, Normal S1, Normal S2, No murmurs Abdomen: Bowel Sounds Present, Non Tender, Non-Distended, No Hepato-splenomegaly Extremities: No clubbing, No cyanosis, No edema, Capillary Refill Less than 3 Seconds Skin: No rashes, No breakdown Musculoskeletal: No Tenderness to Palpation of Joints or Extremities Lymphatic: No Cervical, Supraclavicular, or Inguinal Adenopathy Neurological: Cranial nerves II-XII grossly intact, Neuro grossly intact, Motor Exam 5/5 strength throughout Psych/Mental Status: Normal Affect, Appropriate, Alert and oriented to time, place, person, mood and affect Microbiology Past 72 Hours 09/13/20 20:50 Stool Stool Occult Blood (TARUN) - Final Laboratory Results 09/13/20 19:32: WBC 4.2 L, RBC 2.42 L, Hgb 7.9 L, Hct 24.4 L, MCV 100.8 H, MCH 32.6 H, MCHC 32.4, RDW Std Deviation 56.3 H, RDW Coeff of Conchis 15.5 H, Plt Count 134 L, MPV 9.9, Immature Gran % (Auto) 0.200, Neut % (Auto) 67.7, Lymph % (Auto) 24.1, Wallace % (Auto) 5.3, Eos % (Auto) 2.2, Baso % (Auto) 0.5, Absolute Neuts (auto) 2.8, Absolute Lymphs (auto) 1.00, Nucleated RBC % 0 09/13/20 19:32: Sodium 133 L, Potassium 4.1, Chloride 97 L, Carbon Dioxide 30.0, Anion Gap 6, BUN 36 H, Creatinine 1.26 H, Estim Creat Clear Calc 32.78, Est GFR (MDRD) Af Amer 52 L, Est GFR (MDRD) Non-Af 43 L, BUN/Creatinine Ratio 28.6 H, Glucose 397 H, Calcium 9.6, Troponin I 0.184 H Diagnostic Data Chest X-Ray 09/13/20 19:38 IMPRESSION: Degenerative changes, as described above. No demonstrated acute cardiopulmonary process. Electronically Signed: Manny Lopez MD at 20:03 EST , Service support , Assessment/Plan All Active Problems (Last Reviewed 08/11/20 @ 14:[address] Floyd Foster MD) Generalized weakness (Acute) Hypokalemia (Acute) Vomiting (Acute) YOSELIN (acute kidney injury) (Acute) History of non-ST elevation myocardial infarction (NSTEMI) (Resolved 03/26/20) GI bleed (Resolved 05/07/20) 80 y/o admitted with a complaint of nausea and vomiting as well as chest pain #Chest pain to r/o ACS * Patient has an extensive cardiac history and has [address]. She has been told by cardiology that she would now need optimization of her medical management as there is very little cardiac intervention that could be done. * EKG showed ST depression in leads V3 to V6 which is present in previous EKGs. * Initial troponin 0 0.184 which is similar to her baseline as her troponins are chronically elevated. * Will cycle troponin. Continue aspirin and nitrate. * Continue high intensity statin. * Discussed with cardiology. * Is with 1 unit of packed red blood cells as his symptoms could also be due to demand ischemia. * #Acute on chronic anemia * Globin is 7.9, she has a baseline of around 9. * She says she has had intermittent rectal bleeding though stool for occult blood is negative. * Transfused with 1 unit of packed red blood cells and consider general surgery consult. * She has had a colonoscopy and EGD within the past year, in May 2020 and had 5 polyps removed by surgery. Pathology showed there were tubular adenomas. * #CAD s/p stents x6: On aspirin, Plavix, high intensity statin and beta-radha #Hypothyroidism: On Synthroid #History of schizophrenia: Continue home meds #Type 2 diabetes mellitus; continue home insulin. Insulin sliding scale. Checks AC at bedtime. DVT prophylaxis: SCDs. No anticoagulation on account of complaint of rectal bleeding CODE STATUS:full code * Patient counseled extensively about different types of CODE STATUS including full code, DNR CCA and DNR CCA. Patient elects to be 17 mins. Total [id number] time 17 minutes. OBSV E&M: 06040 Initial observation care L2 Procedures: 05652 Advncd Care Plan 30 Min
--- NOTE | 2020-09-13 21:55 | ED.VISSUMM ---
- ER Visit Summary Date of Service: 09/13/20 Chief Complaint: Chest pain History of Present Illness: The patient is a 80 F presenting with chest pain. Patient states she started having vomiting this morning. Throughout the day she had chest pain. She took 3 nitro with some improvement at home. She then started vomiting again this evening. EMS was called. Patient has a history of CAD, CHF, diabetes, hypertension, hyperlipidemia. She is on aspirin and Plavix. She believes she has approximately 6 stents. She is not a smoker. Physical Examination: Vitals are stable. Patient is afebrile. Alert no acute distress. HEENT exam is unremarkable. Neck is supple. Lungs are clear and equal bilaterally. Heart is regular rate and rhythm, systolic murmur Abdomen is soft nontender nondistended. Extremities are unremarkable. Skin is warm and dry. Remainder of exam is unremarkable. Emergency Department Course and Treatment: EKG is sinus rate of 70 with LVH, ST depression V3 through V6. She was given aspirin on arrival. CBC shows hemoglobin 7.9, platelet 134. Patient has had a history of previous GI bleeds. She states that she has had blood in her stool in the past but she is not sure if she had blood in her stool today. Chemistries show sodium 133, glucose 397, BUN 36, creatinine 1.26. Troponin 0.184. Chest x-ray shows no acute process. Stool is guaiac negative. On reevaluation, she is resting comfortably. Discussed with Dr. Foster and hospitalist for admission. Disposition: Admission Impression: Chest pain This note was generated with [employer] dictation software. It may contain incorrect words, spelling, and punctuation that were not noted in review of the chart prior to signing ED Disposition - Plan for ED Patient: Referrals: Diana Cohen MD [Primary Care Provider] -
[2020-09-13] MEDS: Ondansetron 4 MG/2 ML Vial IV (21:57)
[2020-09-13] MEDS: Morphine 4 MG/ML Syringe IV (21:59)
--- NOTE | 2020-09-13 22:45 | EKG12_ITS ---
Test Reason : CP Blood Pressure : / mmHG Vent. Rate : 070 BPM Atrial Rate : 070 BPM P-R Int : 176 ms QRS Dur : 092 ms QT Int : 442 ms P-R-T Axes : 047 -21 -45 degrees QTc Int : 477 ms Normal sinus rhythm Left ventricular hypertrophy Nonspecific ST and T wave abnormality Abnormal ECG Confirmed by JUAN ALBERTO CHEW, RC ([id number]), commissioning editor LAURIE MCCLELLAND ([id number]) on 09/16/2020 9:30:02 AM Referred By: ANA Confirmed By:RC AVENDANO MD
[2020-09-14] VITALS (11 sets, daily range): BP systolic 110–128; BP diastolic 41–56; PULSE 63–75; RESP 16–18; TEMP 36.6–37.1; O2SAT 95–96
[2020-09-14 03:30] LABS: Absolute Lymphocyte Count 1.46 X10^3/uL (0.83-4.51); Basophil# 0.02 X10^3/uL; Basophil% 0.5 % (0-1); Eosinophil# 0.13 X10^3/uL; Eosinophils% 3.4 % (0-5); Hematocrit 21.1 % (37-47); Hemoglobin 7.1 g/dL (12.0-15.0); Lymphocyte # 1.46 X10^3/ul (4.0); Lymphocyte % 37.6 % (19-41); Mean Corp Hgb Conc 33.6 g/dL (32-36); Mean Corpuscular Hgb 33.3 pg (27.0-32.0); Mean Corpuscular Volume 99.1 fL (81-99); Mean Platelet Vol. 9.9 fl (6.2-12.0); Monocyte% 7.7 % (0-10); NRBC Flagged by Analyzer 0 % (0-5); Neutrophil # 1.96 X10^3/uL (2.7-7.7); Neutrophil % 50.5 % (47-70); Platelet Count 124 K/mm3 (150-450); RBC Distribution Width CV 15.5 % (11.6-14.6); RBC Distribution Width SD 54.6 fl (35.1-43.9); Red Blood Count 2.13 M/mm3 (4.2-5.4); White Blood Count 3.9 K/mm3 (4.4-11.0)
[2020-09-14 03:49] LABS: Anion Gap 4 (5-15); BUN 31 mg/dL (7-18); BUN/Creat Ratio 30.1 RATIO (10-20); Calcium,Total 8.9 mg/dL (8.5-10.1); Chloride 100 mmol/L (98-107); Creatinine, Serum 1.03 mg/dL (0.55-1.02); EST Glomerular Filtration Rate 55 mL/min (>60); Est Glom Filt Rate - Afr Amer 66 mL/min (>60); Glucose 313 mg/dL (74-106); Potassium 3.9 mmol/L (3.5-5.1); Sodium Level 135 mmol/L (136-145)
[2020-09-14] MEDS: Levothyroxine 100 MCG Tablet PO (06:35)
--- NOTE | 2020-09-14 07:55 | PN_ITS ---
Reason for Visit: Chest pain Symptomatic anemia Subjective: Patient is an 80-year-old lady admitted with nausea vomiting and chest pain. Patient was found to be anemic admitted to monitored bed for further management Objective: GENERAL: cooperative HEENT: Atraumatic; EYES; Anicteric, Normal Conjunctiva NECK; supple, normal thyroid, RESPIRATORY: Diminished to auscultation CARDIOVASCULAR: Regular S1 S2, GI: soft, normoactive bowel sounds, : No Renal angle tenderness; EXTREMITIES: No edema, no clubbing, MUSCULOSKELETAL: no muscle waisting NEURO: Awake; no lateralizing signs. SKIN: No Rash PSYCH; Flat affect Vitals/I&O's: Vital Signs Temp Pulse Resp BP Pulse Ox 98.2 F 69 16 128/56 H 95 09/14/20 07:21 09/14/20 07:21 09/14/20 07:21 09/14/20 07:21 09/14/20 07:21 Oxygen Delivery Method Room Air Weight: 83.5 kg Body Mass Index (BMI) 29.7 Finger Stick Blood Glucose 270 Intake and Output for Last 24 Hours 09/12/20 09/13/20 09/14/20 23:59 23:59 23:59 Intake Total 500 / 500 Output Total 600 / 600 Balance -100 / -100 Microbiology Past 72 Hours 09/13/20 20:50 Stool Stool Occult Blood (TARUN) - Final Laboratory Results 09/13/20 19:32: WBC 4.2 L, RBC 2.42 L, Hgb 7.9 L, Hct 24.4 L, MCV 100.8 H, MCH 32.6 H, MCHC 32.4, RDW Std Deviation 56.3 H, RDW Coeff of Conchis 15.5 H, Plt Count 134 L, MPV 9.9, Immature Gran % (Auto) 0.200, Neut % (Auto) 67.7, Lymph % (Auto) 24.1, Cochran % (Auto) 5.3, Eos % (Auto) 2.2, Baso % (Auto) 0.5, Absolute Neuts (auto) 2.8, Absolute Lymphs (auto) 1.00, Nucleated RBC % 0 09/13/20 19:32: Sodium 133 L, Potassium 4.1, Chloride 97 L, Carbon Dioxide 30.0, Anion Gap 6, BUN 36 H, Creatinine 1.26 H, Estim Creat Clear Calc 32.78, Est GFR (MDRD) Af Amer 52 L, Est GFR (MDRD) Non-Af 43 L, BUN/Creatinine Ratio 28.6 H, Glucose 397 H, Calcium 9.6, Troponin I 0.184 H 09/13/20 23:40: Troponin I 0.187 H 09/14/20 03:20: WBC 3.9 L, RBC 2.13 L, Hgb 7.1 L, Hct 21.1 L, MCV 99.1 H, MCH 33.3 H, MCHC 33.6, RDW Std Deviation 54.6 H, RDW Coeff of Conchis 15.5 H, Plt Count 124 L, MPV 9.9, Immature Gran % (Auto) 0.300, Neut % (Auto) 50.5, Lymph % (Auto) 37.6, Cochran % (Auto) 7.7, Eos % (Auto) 3.4, Baso % (Auto) 0.5, Absolute Neuts (auto) 2.0, Absolute Lymphs (auto) 1.46, Nucleated RBC % 0 09/14/20 03:20: Sodium 135 L, Potassium 3.9, Chloride 100, Carbon Dioxide 31.0, Anion Gap 4 L, BUN 31 H, Creatinine 1.03 H, Estim Creat Clear Calc 40.10, Est GFR (MDRD) Af Amer 66, Est GFR (MDRD) Non-Af 55 L, BUN/Creatinine Ratio 30.1 H, Glucose 313 H, Calcium 8.9 09/14/20 03:20: Blood Type A POSITIVE, Antibody Screen NEGATIVE, Crossmatch See Detail 09/14/20 03:20: Troponin I 0.175 H Current Medications Acetaminophen (Acetaminophen 325 Mg Tablet) 650 mg PO Q6H PRN PRN PRN Reason: Pain Score 1-10/Temp > 100.7 F Albuterol Sulfate (Albuterol 2.5 Mg/3 Ml Vial.Neb.) 2.5 mg INHALATION Q4H PRN PRN PRN Reason: SHORTNESS OF BREATH Ascorbic Acid (Ascorbic Acid 500 Mg Tablet) 500 mg PO DAILY [place] Aspirin (Aspirin 81 Mg Tab.Chew) 81 mg PO DAILY@0800 [facility] Carvedilol (Carvedilol 3.125 Mg Tablet) 3.125 mg PO BIDCM [facility] Cholecalciferol (Cholecalciferol (Vit D3) 1,000 Unit (25mcg)) 5,000 unit PO DAILY [facility] Clopidogrel Bisulfate (Clopidogrel Bisulfate 75 Mg Tablet) 75 mg PO DAILY [facility] Folic Acid (Folic Acid 1 Mg Tablet) 1 mg PO DAILYCM [facility] Furosemide (Furosemide 40 Mg Tablet) 40 mg PO BIDLX [facility] Insulin Glargine (Insulin Glargine 100 Units/Ml Pen) 34 units SC DAILY@0800 [facility] Insulin Human Lispro (Insulin Lispro 100 Unit/Ml Insuln.Pen) 8 unit SC TIDCM [facility] Isosorbide Mononitrate (Isosorbide Mononitrate 30 Mg Tablet) 90 mg PO QAM [facility] Isosorbide Mononitrate (Isosorbide Mononitrate 60 Mg Tablet) 60 mg PO 2200 [facility] Levothyroxine Sodium (Levothyroxine 100 Mcg Tablet) 100 mcg PO DAILY@0600 [facility] Last Admin: 09/14/20 06:35 Dose: 100 mcg Documented by: Losartan Potassium (Losartan Potassium 25 Mg Tablet) 25 mg PO DAILY [facility] Metolazone (Metolazone 2.5 Mg Tablet) 2.5 mg PO WeFr@1000 [facility] Mirabegron (Mirabegron 25 Mg Tab.Er.24h) 25 mg PO DAILY [facility] Nitroglycerin (Nitroglycerin (Inpatient Use) 0.4 Mg Tab.Subl) 0.4 mg SUBLINGUAL Q5M PRN PRN Reason: CHEST PAIN Ondansetron HCl (Ondansetron 4 Mg/2 Ml Vial) 4 mg IV Q8H PRN PRN PRN Reason: NAUSEA/VOMITING Pantoprazole Sodium (Pantoprazole Sodium 40 Mg Tablet) 40 mg PO BID [facility] Pravastatin Sodium (Pravastatin 80 Mg Tablet) 80 mg PO DAILY@2200 [facility] Ranolazine (Ranolazine 500 Mg Tablet) 1,000 mg PO BID [facility] Sodium Chloride (0.9% Saline Lock 10 Ml Syringe) 10 - 40 ml IV UD PRN PRN Reason: SALINE FLUSH Spironolactone (Spironolactone 25 Mg Tablet) 25 mg PO QODAY [facility] STROKE Vital Signs/Narrative: Vital Signs Temp Pulse Resp BP Pulse Ox 09/14/20 07:21 98.2 F 69 16 128/56 H 95 09/14/20 07:19 98.2 F 68 16 128/56 H 95 09/14/20 07:00 75 02/09/21 06:29 98.2 F 65 16 114/51 L 95 09/14/20 05:29 98.5 F 63 16 113/53 L 96 09/14/20 05:10 98.8 F 66 18 115/47 L 95 09/14/20 04:30 98.8 F 66 18 115/47 L 95 Medical Necessity - Tobacco Use Smoking Status: Never smoker Tobacco Use: Non-smoker Assessment/Plan All Active Problems (Last Reviewed 08/11/20 @ 14:[address] Floyd Foster MD) Generalized weakness (Acute) Hypokalemia (Acute) Vomiting (Acute) YOSELIN (acute kidney injury) (Acute) History of non-ST elevation myocardial infarction (NSTEMI) (Resolved 03/26/20) GI bleed (Resolved 05/07/20) Patient is an 80-year-old lady admitted with nausea vomiting and chest pain. Patient was found to be anemic admitted to monitored bed for further management 1. Chest pain ?Patient has extensive cardiac history with previous intervention. Admitted to monitored bed where patient is currently being managed with serial cardiac enzymes and EKG. Patient troponins appear to be stable. (Has chronically elevated troponin). Followed by cardiology 2. Anemia - Secondary to chronic disorder patient presented with hemoglobin of 7.9. With patient deemed to be symptomatic an order was given for patient to be transfused with 1 unit PRBC 3. Hypothyroidism - Patient is on levothyroxine home dose continued 4. Coronary artery disease ?With previous PCI (a total of six stent placement) 5. Dyslipidemia -Patient is on statin therapy, continued at home dose 6. Hypertension - Blood pressure controlled, home medications continued with dose adjustment as needed 7. Diabetes mellitus type II -Placed on long acting insulin, Accu-Cheks a.c. and at bedtime and covered with sliding scale insulin 8. Chronic congestive heart failure With preserved ejection fraction. 2D echo from 02/10/2020 demonstrated The estimated ejection fraction is 55 %. Stage 1 diastolic dysfunction. The left atrium is moderately enlarged. Mild (1+) mitral valve insufficiency. Trivial tricuspid valve insufficiency. Right ventricular systolic pressure estimated to be 21 mmHg. Fusion of right and non coronary cusps. Mild aortic stenosis. 9. Schizophrenia As per history 10. DVT prophylaxis ?SCDs for now
[2020-09-14 08:11] LABS: Bedside Glucose 261 mg/dL (70-110)
[2020-09-14 08:44] LABS: Hematocrit 25.9 % (37-47); Hemoglobin 8.5 g/dL (12.0-15.0)
[2020-09-14] MEDS: Ascorbic Acid 500 MG Tablet PO (09:37)
[2020-09-14] MEDS: Clopidogrel Bisulfate 75 MG Tablet PO (09:37)
[2020-09-14] MEDS: Furosemide 40 MG Tablet PO (09:37)
[2020-09-14] MEDS: Ranolazine 500 MG Tablet 1000 MG PO (09:37)
[2020-09-14] MEDS: Pantoprazole Sodium 40 MG Tablet PO (09:37)
[2020-09-14] MEDS: Mirabegron 25 MG TAB.ER.24H PO (09:38)
[2020-09-14] MEDS: Aspirin 81 MG TAB.CHEW PO (09:38)
[2020-09-14] MEDS: Losartan Potassium 25 MG Tablet PO (09:38)
[2020-09-14] MEDS: Folic Acid 1 MG Tablet PO (09:38)
[2020-09-14] MEDS: Carvedilol 3.125 MG TABLET PO (09:38)
[2020-09-14] MEDS: Isosorbide Mononitrate 30 MG Tablet 90 MG PO (09:39)
[2020-09-14] MEDS: Insulin Lispro 100 UNIT/ML INSULN.PEN 8 UNIT SC (09:43)
--- NOTE | 2020-09-14 10:19 | DCINST_ITS ---
You will use the following diet at home:: Calorie/Carbohydrate Controlled (specify 1200, 1400, etc) - 1800, Cardiac Your food should be the consistency of: Regular Discharge Activity: Return to Normal Activity Allergies/Adverse Reactions: Allergies aripiprazole [From Abilify] Allergy (Intermediate, Verified 09/13/20 18:54) it over powered me lisinopril Allergy (Intermediate, Verified 09/13/20 18:54) Unknown atorvastatin calcium [From Lipitor] Adverse Reaction (Verified 09/13/20 18:54) Unknown rosiglitazone maleate [From Avandia] Adverse Reaction (Verified 09/13/20 18:54) Other Medications to take at Discharge Aspirin [Aspirin, Baby] 81 mg PO DAILY@0800 06/30/17 Nitroglycerin [Nitrostat] 0.4 mg SL PRN PRN 06/30/17 Multivitamins,Therapeutic [Multivitamin] 1 tab PO DAILY 02/01/18 ascorbic acid (vitamin C) 500 mg tablet 500 mg PO DAILY 09/13/18 Insulin Glargine,Hum.rec.anlog [Touroman Solostar] 34 unit SC DAILY 04/23/19 Carvedilol [Coreg] 3.125 mg PO BIDCM 06/24/19 Cholecalciferol (Vitamin D3) [Vitamin D3] 5,000 unit PO DAILY 06/24/19 Levothyroxine [Synthroid] 100 mcg PO DAILY 07/24/19 Folic Acid 1 mg PO DAILY 02/10/20 Furosemide 40 mg PO BID 02/10/20 Insulin Regular, Human [Humulin R] 8 unit SQ TIDCM 02/10/20 Acetaminophen [Tylenol Tablet] 650 mg PO Q6H PRN PRN tab 03/29/20 Pantoprazole Sodium [Protonix] 40 mg PO BID #60 tab 03/29/20 losartan 25 mg tablet 25 mg PO DAILY #30 tab 04/29/20 metolazone 2.5 mg tablet 2.5 mg PO .COMPLEX tab 06/17/20 mirabegron 25 mg tablet,extended release 24 hr 25 mg PO DAILY 06/17/20 albuterol sulfate 90 mcg/actuation aerosol inhaler 2 puff INHALATION Q6H PRN 08/11/20 pravastatin 80 mg tablet 80 mg PO DAILY #90 tab 08/13/20 ranolazine 1,000 mg tablet,extended release,12 hr 1,000 mg PO BID #60 tab 08/20/20 Clopidogrel Bisulfate [Clopidogrel] 75 mg PO DAILY #30 tab 09/01/20 spironolactone 25 mg tablet 25 mg PO Q OTHER DAY #16 tab 09/02/20 isosorbide mononitrate 30 mg tablet,extended release 24 hr 30 mg PO .COMPLEX #30 tab 09/03/20 isosorbide mononitrate 60 mg tablet,extended release 24 hr 60 mg PO .COMPLEX #60 tab 09/03/20 Primary Care Physician: Diana Cohen MD [Primary Care Provider] - Please follow up with your Primary Care Physician in: in 1 week Test Results: Test results from this visit will be discussed in further detail at your follow- up appointment, if applicable. Proposed Discharge Date: 09/14/20
--- NOTE | 2020-09-14 10:23 | DS.PCM_ITS ---
Discharge Date and Diagnosis Date of Admission: 09/13/20 Date of Discharge: 09/14/20 - Primary Discharge Diagnosis Acute Problems: Symptomatic anemia - Secondary Discharge Diagnosis Chronic Problems: Chronic Problems (Last Reviewed 08/11/20 @ 14:[address] Floyd Foster MD) CAD (coronary artery disease) (Chronic) Acute exacerbation of CHF (congestive heart failure) (Chronic) Atherosclerotic heart disease [place] coronary artery w/angina pectoris (Chronic) History of coronary artery stent placement (Chronic 08/20/18) PCI of ostial and mid LCx ISR with laser atherectomy, balloon angioplasty 08/20/18 PTCA and laser atherectomy-Prox LCx 02/03/2018; POBA-ostial/prox LCx 11/09/2017; GBM-LHG-Dhzj LCx w/ 2.5 x 20 mm Synergy Stent, RAYMON-Distal LM-into the Ostium of LAD w/ 4.0 x 16 mm Synergy Stent 07/05/2017; POBA-Ostium and Prox LCx 04/19/2017; PCI-Rotational Jensjrxdtxw-NOF-GFN with a 2.75 x 38 mm Promus Premier drug eluting stent 12/15/13; RYAMON-Mid RPLB w/ 3.0 x 28 mm Cypher and Prox RPLB w/ 3.0 x 8 mm Cypher, RAYMON- Ostium RPDA w/ 2.5 x 28 mm Cypher 09/17/2007 Chronic diastolic (congestive) heart failure (Chronic) Non-rheumatic aortic stenosis (Chronic) Essential hypertension (Chronic) Hyperlipidemia (Chronic) Diabetes mellitus, type II (Chronic) Hypothyroidism (Chronic) Schizophrenia (Chronic) Anemia (Chronic) Follows with Dr Son 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) Hospital Course and Treatment Operations: None Summary of Care Provided: Patient is an 80-year-old lady admitted with nausea vomiting and chest pain. Patient was found to be anemic admitted to monitored bed for further management 1. Chest pain ?Patient has extensive cardiac history with previous intervention. Admitted to monitored bed where patient is currently being managed with serial cardiac enzymes and EKG. Patient troponins appear to be stable. (Has chronically elevated troponin). Followed by cardiology 2. Anemia - Secondary to chronic disorder patient presented with hemoglobin of 7.9. With patient deemed to be symptomatic an order was given for patient to be transfused with 1 unit PRBC -Hemoglobin after transfusion was 8.5. Discharge home instructed to follow-up with PCP within a week for subsequent care. Patient underwent colonoscopy 3 weeks prior to the current admission with no evidence of malignancy found 3. Hypothyroidism - Patient is on levothyroxine home dose continued 4. Coronary artery disease ?With previous PCI (a total of six stent placement) 5. Dyslipidemia -Patient is on statin therapy, continued at home dose 6. Hypertension - Blood pressure controlled, home medications continued with dose adjustment as needed 7. Diabetes mellitus type II -Placed on long acting insulin, Accu-Cheks a.c. and at bedtime and covered with sliding scale insulin 8. Chronic congestive heart failure With preserved ejection fraction. 2D echo from 02/10/2020 demonstrated The estimated ejection fraction is 55 %. Stage 1 diastolic dysfunction. The left atrium is moderately enlarged. Mild (1+) mitral valve insufficiency. Trivial tricuspid valve insufficiency. Right ventricular systolic pressure estimated to be 21 mmHg. Fusion of right and non coronary cusps. Mild aortic stenosis. 9. Schizophrenia As per history 10. DVT prophylaxis ?SCDs for now Objective: GENERAL: cooperative HEENT: Atraumatic; EYES; Anicteric, Normal Conjunctiva NECK; supple, normal thyroid, RESPIRATORY: Diminished to auscultation CARDIOVASCULAR: Regular S1 S2, GI: soft, normoactive bowel sounds, : No Renal angle tenderness; EXTREMITIES: No edema, no clubbing, MUSCULOSKELETAL: no muscle waisting NEURO: Awake; no lateralizing signs. SKIN: No Rash PSYCH; Flat affect - Physical Exam Vitals/I&O's: Vital Signs Temp Pulse Resp BP Pulse Ox 97.9 F 64 18 110/41 L 96 09/14/20 09:25 09/14/20 09:25 09/14/20 09:25 09/14/20 09:25 09/14/20 09:25 Oxygen Delivery Method Room Air Weight: 83.5 kg Body Mass Index (BMI) 29.7 Finger Stick Blood Glucose 270 Intake and Output for Last 24 Hours 09/12/20 09/13/20 09/14/20 23:59 23:59 23:59 Intake Total 500 / 500 Output Total 600 / 600 Balance -100 / -100 Microbiology Past 72 Hours 09/13/20 20:50 Stool Stool Occult Blood (TARUN) - Final Laboratory Results 09/13/20 19:32: WBC 4.2 L, RBC 2.42 L, Hgb 7.9 L, Hct 24.4 L, MCV 100.8 H, MCH 32.6 H, MCHC 32.4, RDW Std Deviation 56.3 H, RDW Coeff of Conchis 15.5 H, Plt Count 134 L, MPV 9.9, Immature Gran % (Auto) 0.200, Neut % (Auto) 67.7, Lymph % (Auto) 24.1, [place] % (Auto) 5.3, Eos % (Auto) 2.2, Baso % (Auto) 0.5, Absolute Neuts (auto) 2.8, Absolute Lymphs (auto) 1.00, Nucleated RBC % 0 09/13/20 19:32: Sodium 133 L, Potassium 4.1, Chloride 97 L, Carbon Dioxide 30.0, Anion Gap 6, BUN 36 H, Creatinine 1.26 H, Estim Creat Clear Calc 32.78, Est GFR (MDRD) Af Amer 52 L, Est GFR (MDRD) Non-Af 43 L, BUN/Creatinine Ratio 28.6 H, Glucose 397 H, Calcium 9.6, Troponin I 0.184 H 09/13/20 23:40: Troponin I 0.187 H 09/14/20 03:20: WBC 3.9 L, RBC 2.13 L, Hgb 7.1 L, Hct 21.1 L, MCV 99.1 H, MCH 33.3 H, MCHC 33.6, RDW Std Deviation 54.6 H, RDW Coeff of Conchis 15.5 H, Plt Count 124 L, MPV 9.9, Immature Gran % (Auto) 0.300, Neut % (Auto) 50.5, Lymph % (Auto) 37.6, [place] % (Auto) 7.7, Eos % (Auto) 3.4, Baso % (Auto) 0.5, Absolute Neuts (auto) 2.0, Absolute Lymphs (auto) 1.46, Nucleated RBC % 0 09/14/20 03:20: Sodium 135 L, Potassium 3.9, Chloride 100, Carbon Dioxide 31.0, Anion Gap 4 L, BUN 31 H, Creatinine 1.03 H, Estim Creat Clear Calc 40.10, Est GFR (MDRD) Af Amer 66, Est GFR (MDRD) Non-Af 55 L, BUN/Creatinine Ratio 30.1 H, Glucose 313 H, Calcium 8.9 09/14/20 03:20: Blood Type A POSITIVE, Antibody Screen NEGATIVE, Crossmatch See Detail 09/14/20 03:20: Troponin I 0.175 H 09/14/20 07:51: POC Glucose 261 H 09/14/20 08:20: Hgb 8.5 L, Hct 25.9 L Current Medications Acetaminophen (Acetaminophen 325 Mg Tablet) 650 mg PO Q6H PRN PRN PRN Reason: Pain Score 1-10/Temp > 100.7 F Albuterol Sulfate (Albuterol 2.5 Mg/3 Ml Vial.Neb.) 2.5 mg INHALATION Q4H PRN PRN PRN Reason: SHORTNESS OF BREATH Ascorbic Acid (Ascorbic Acid 500 Mg Tablet) 500 mg PO DAILY [facility] Last Admin: 09/14/20 09:37 Dose: 500 mg Documented by: Aspirin (Aspirin 81 Mg Tab.Chew) 81 mg PO DAILY@0800 [facility] Last Admin: 09/14/20 09:38 Dose: 81 mg Documented by: Carvedilol (Carvedilol 3.125 Mg Tablet) 3.125 mg PO BIDCM [facility] Last Admin: 09/14/20 09:38 Dose: 3.125 mg Documented by: Cholecalciferol (Cholecalciferol (Vit D3) 1,000 Unit (25mcg)) 5,000 unit PO DAILY [facility] Last Admin: 09/14/20 09:36 Dose: 5,000 unit Documented by: Clopidogrel Bisulfate (Clopidogrel Bisulfate 75 Mg Tablet) 75 mg PO DAILY [facility] Last Admin: 09/14/20 09:37 Dose: 75 mg Documented by: Folic Acid (Folic Acid 1 Mg Tablet) 1 mg PO DAILYCM [facility] Last Admin: 09/14/20 09:38 Dose: 1 mg Documented by: Furosemide (Furosemide 40 Mg Tablet) 40 mg PO BIDLX [facility] Last Admin: 09/14/20 09:37 Dose: 40 mg Documented by: Insulin Glargine (Insulin Glargine 100 Units/Ml Pen) 34 units SC DAILY@0800 [facility] Last Admin: 09/14/20 09:42 Dose: 34 u Documented by: Insulin Human Lispro (Insulin Lispro 100 Unit/Ml Insuln.Pen) 8 unit SC TIDCM [facility] Last Admin: 09/14/20 09:43 Dose: 8 u Documented by: Isosorbide Mononitrate (Isosorbide Mononitrate 30 Mg Tablet) 90 mg PO QAM [facility] Last Admin: 09/14/20 09:39 Dose: 90 mg Documented by: Isosorbide Mononitrate (Isosorbide Mononitrate 60 Mg Tablet) 60 mg PO 2200 [facility] Levothyroxine Sodium (Levothyroxine 100 Mcg Tablet) 100 mcg PO DAILY@0600 [facility] Last Admin: 09/14/20 06:35 Dose: 100 mcg Documented by: Losartan Potassium (Losartan Potassium 25 Mg Tablet) 25 mg PO DAILY [facility] Last Admin: 09/14/20 09:38 Dose: 25 mg Documented by: Metolazone (Metolazone 2.5 Mg Tablet) 2.5 mg PO WeFr@1000 [facility] Mirabegron (Mirabegron 25 Mg Tab.Er.24h) 25 mg PO DAILY [facility] Last Admin: 09/14/20 09:38 Dose: 25 mg Documented by: Nitroglycerin (Nitroglycerin (Inpatient Use) 0.4 Mg Tab.Subl) 0.4 mg SUBLINGUAL Q5M PRN PRN Reason: CHEST PAIN Ondansetron HCl (Ondansetron 4 Mg/2 Ml Vial) 4 mg IV Q8H PRN PRN PRN Reason: NAUSEA/VOMITING Pantoprazole Sodium (Pantoprazole Sodium 40 Mg Tablet) 40 mg PO BID [facility] Last Admin: 09/14/20 09:37 Dose: 40 mg Documented by: Pravastatin Sodium (Pravastatin 80 Mg Tablet) 80 mg PO DAILY@2200 [facility] Ranolazine (Ranolazine 500 Mg Tablet) 1,000 mg PO BID [facility] Last Admin: 09/14/20 09:37 Dose: 1,000 mg Documented by: Sodium Chloride (0.9% Saline Lock 10 Ml Syringe) 10 - 40 ml IV UD PRN PRN Reason: SALINE FLUSH Spironolactone (Spironolactone 25 Mg Tablet) 25 mg PO QODAY [facility] Discharge Diet: Low fat/ Low Cholesterol, 1800 Calorie Control Diet Discharge Activity: Return to Normal Activity Home Medications: Medications to take at Discharge Aspirin [Aspirin, Baby] 81 mg PO DAILY@0800 06/30/17 Nitroglycerin [Nitrostat] 0.4 mg SL PRN PRN 06/30/17 Multivitamins,Therapeutic [Multivitamin] 1 tab PO DAILY 06/29/18 ascorbic acid (vitamin C) 500 mg tablet 500 mg PO DAILY 09/13/18 Insulin Glargine,Hum.rec.anlog [[place] Solostar] 34 unit SC DAILY 04/23/19 Carvedilol [Coreg] 3.125 mg PO BIDCM 06/24/19 Cholecalciferol (Vitamin D3) [Vitamin D3] 5,000 unit PO DAILY 06/24/19 Levothyroxine [Synthroid] 100 mcg PO DAILY 07/24/19 Folic Acid 1 mg PO DAILY 02/10/20 Furosemide 40 mg PO BID 02/10/20 Insulin Regular, Human [Humulin R] 8 unit SQ TIDCM 02/10/20 Acetaminophen [Tylenol Tablet] 650 mg PO Q6H PRN PRN tab 03/29/20 Pantoprazole Sodium [Protonix] 40 mg PO BID #60 tab 03/29/20 losartan 25 mg tablet 25 mg PO DAILY #30 tab 04/29/20 metolazone 2.5 mg tablet 2.5 mg PO .COMPLEX tab 06/17/20 mirabegron 25 mg tablet,extended release 24 hr 25 mg PO DAILY 06/17/20 albuterol sulfate 90 mcg/actuation aerosol inhaler 2 puff INHALATION Q6H PRN 08/11/20 pravastatin 80 mg tablet 80 mg PO DAILY #90 tab 08/13/20 ranolazine 1,000 mg tablet,extended release,12 hr 1,000 mg PO BID #60 tab 08/20/20 Clopidogrel Bisulfate [Clopidogrel] 75 mg PO DAILY #30 tab 09/01/20 spironolactone 25 mg tablet 25 mg PO Q OTHER DAY #16 tab 09/02/20 isosorbide mononitrate 30 mg tablet,extended release 24 hr 30 mg PO .COMPLEX #30 tab 09/03/20 isosorbide mononitrate 60 mg tablet,extended release 24 hr 60 mg PO .COMPLEX #60 tab 09/03/20 Primary Care Physician: Diana Cohen MD [Primary Care Provider] - Please follow up with your Primary Care Physician in: in 1 week Disposition: Home Minutes spent on discharge:: 35 Patient Condition:: Stable Medical Necessity - Tobacco Use Smoking Status: Never smoker Tobacco Use: Non-smoker Meaningful Use Info Meaningful Use Diagnoses (Choose all that apply): None applicable OBSV E&M: 70919 Observation care discharge
--- NOTE | 2020-09-14 10:26 | CASEMGMT ---
Andie TRACEY at [facility] updated per request at this time on pt discharge at this time, voices understanding. Per Andie, pt will occasionally gets meds filled here at [facility] pharmacy which then confuses pt when she gets her meds from [facility]. Pt states preference for [facility] at this time and [facility] retail removed from pharmacy list at this time to avoid pt confusion. Rolando TREVINO CM
--- NOTE | 2020-09-14 10:27 | CASEMGMT ---
SUAD called [facility] with [facility] as this is patient's case mgr. SUAD left her a voice mail letting her know patient came in for cp and vomiting and she is observation status. Patient is now up for discharge. SUAD faxed her d/c instructions to [facility]. Plan: d/c home with resumption of [employer] services. Karina SERRATO PHP WEB DEVELOPER
--- NOTE | 2020-09-14 10:40 | PHA.DC.MR ---
Pharmacy Service has performed discharge medication reconciliation for this patient. No new medications at time of discharge review. Medications reviewed are from previously reported home medications. Home Medications Aspirin [Aspirin, Baby] 81 mg PO DAILY@0800 06/30/17 Nitroglycerin [Nitrostat] 0.4 mg SL PRN PRN 06/30/17 Multivitamins,Therapeutic [Multivitamin] 1 tab PO DAILY 02/01/18 ascorbic acid (vitamin C) 500 mg tablet 500 mg PO DAILY 09/13/18 Insulin Glargine,Hum.rec.anlog [[place] Solostar] 34 unit SC DAILY 04/23/19 Carvedilol [Coreg] 3.125 mg PO BIDCM 06/24/19 Cholecalciferol (Vitamin D3) [Vitamin D3] 5,000 unit PO DAILY 06/24/19 Levothyroxine [Synthroid] 100 mcg PO DAILY 07/24/19 Folic Acid 1 mg PO DAILY 02/10/20 Furosemide 40 mg PO BID 02/10/20 Insulin Regular, Human [Humulin R] 8 unit SQ TIDCM 02/10/20 Acetaminophen [Tylenol Tablet] 650 mg PO Q6H PRN PRN tab 03/29/20 Pantoprazole Sodium [Protonix] 40 mg PO BID #60 tab 03/29/20 losartan 25 mg tablet 25 mg PO DAILY #30 tab 04/29/20 metolazone 2.5 mg tablet 2.5 mg PO .COMPLEX tab 06/17/20 mirabegron 25 mg tablet,extended release 24 hr 25 mg PO DAILY 06/17/20 albuterol sulfate 90 mcg/actuation aerosol inhaler 2 puff INHALATION Q6H PRN 08/11/20 pravastatin 80 mg tablet 80 mg PO DAILY #90 tab 08/13/20 ranolazine 1,000 mg tablet,extended release,12 hr 1,000 mg PO BID #60 tab 08/20/20 Clopidogrel Bisulfate [Clopidogrel] 75 mg PO DAILY #30 tab 09/01/20 spironolactone 25 mg tablet 25 mg PO Q OTHER DAY #16 tab 09/02/20 isosorbide mononitrate 30 mg tablet,extended release 24 hr 30 mg PO .COMPLEX #30 tab 09/03/20 isosorbide mononitrate 60 mg tablet,extended release 24 hr 60 mg PO .COMPLEX #60 tab 09/03/20 The patient's discharge medication list was reviewed for discrepancies and discrepancies were resolved.
--- NOTE | 2020-09-14 11:28 | CASEMGMT ---
Per therapy, pt would benefit from [facility] PT/OT at this time. This RN CM to room and pt states she would like [facility] as she has had them in the recent past. Pt declines list of in-network [facility] agencies at this time. Message left with Emma at [facility] in regards to referral at this time. Order placed for PT/OT at this time. Pt voices no further questions/concerns/needs at this time. SStaten BELINDA TARCEY
--- NOTE | 2020-09-14 13:17 | CASEMGMT ---
RN CM Note: call received from [facility]. They accepted patient and start of care will be . Agustin NANCE RN ACM
== END 2020-09-14 10:19 | disposition home or self-care (01) ==
LOC: ED 19:38 → PCU 22:04
PROVIDERS: Admitting Provider Student in an Organized Health Care Education/Training Program; Emergency Provider Emergency Medicine; PCP Internal Medicine; Visit Provider Internal Medicine
DX: D64.9 Anemia, unspecified (principal); I25.10 Atherosclerotic heart disease of native coronary artery without angina pectoris; I11.0 Hypertensive heart disease with heart failure; K74.60 Unspecified cirrhosis of liver; K75.81 Nonalcoholic steatohepatitis (NASH); I50.32 Chronic diastolic (congestive) heart failure; Z95.5 Presence of coronary angioplasty implant and graft; E11.9 Type 2 diabetes mellitus without complications; E78.5 Hyperlipidemia, unspecified; E03.9 Hypothyroidism, unspecified; Z79.899 Other long term (current) drug therapy; Z79.02 Long term (current) use of antithrombotics/antiplatelets; Z79.82 Long term (current) use of aspirin; Z79.4 Long term (current) use of insulin; I25.2 Old myocardial infarction; E66.9 Obesity, unspecified; Z68.31 Body mass index [BMI] 31.0-31.9, adult; F20.9 Schizophrenia, unspecified
CPT/HCPCS: 36415; 36430; 71045; 80048; 82274; 82962; 84484; 85014; 85018; 85025; 86850; 86900; 86901; 86920; 86922; 93005; 96374; 96375; 97166; 99218; 99285; P9016; A4216; G0378; J2405

== ENCOUNTER → 2020-09-23 09:17 | Outpatient (CLI) | payer MEDICARE, MEDICAID, SELFPAY ==
[2020-09-13 22:29] VITALS: BMI 29.7
[2020-09-22 17:16] LABS: Xtra Tube EP Lab EXTRA TUBE
[2020-09-23] VITALS (10 sets, daily range): BP systolic 103–125; BP diastolic 36–48; PULSE 57–65; RESP 16; TEMP 35.9–36.8; O2SAT 99–100
[2020-09-23] MEDS: 0.9% NaCl Peripheral Flush Adult/Peds IV (09:51)
[2020-09-23] MEDS: proMETHazine 25 MG Tablet PO (09:58)
[2020-09-23] MEDS: Furosemide 20 MG/2 ML VIAL IV (09:58)
== END ==
PROVIDERS: PCP Internal Medicine; Referring Provider Internal Medicine; Visit Provider Internal Medicine
DX: D50.0 Iron deficiency anemia secondary to blood loss (chronic) (principal)
CPT/HCPCS: 36415; 36430; 86850; 86900; 86901; 86920; 86922; J7040; P9016; A4216; J1940

== ENCOUNTER 2020-10-20 16:57 | Observation (INO) | payer MEDICARE, MEDICAID, SELFPAY ==
[2020-10-20] VITALS (11 sets, daily range): BP systolic 112–132; BP diastolic 48–68; PULSE 72–85; RESP 12–18; TEMP 36.5–37.2; O2SAT 98–99; BMI 32.2
--- NOTE | 2020-10-20 17:22 | EKG12_ITS ---
Test Reason : DIZZINESS Blood Pressure : / mmHG Vent. Rate : 072 BPM Atrial Rate : 072 BPM P-R Int : 142 ms QRS Dur : 102 ms QT Int : 496 ms P-R-T Axes : 011 -25 029 degrees QTc Int : 543 ms Normal sinus rhythm Left ventricular hypertrophy with repolarization abnormality Prolonged QT Abnormal ECG Confirmed by SILVINA CHEW, NILSON ([id number]), market editor LAURIE MCCLELLAND ([id number]) on 10/21/2020 12:48:48 PM Referred By: YONNY Confirmed By:NILSON COOL MD
--- NOTE | 2020-10-20 17:45 | RAD_ITS ---
HISTORY: weakness XR Chest 1 View TECHNIQUE: Single frontal view of chest. # of images incl. paperwork: 1 COMPARISON: 09/13/2020 FINDINGS: LINES: None. CARDIOVASCULAR STRUCTURES: Upper limits of normal heart size. Pulmonary vasculature appears normal. LUNGS: Bibasilar opacities. Mid and upper lungs demonstrate no confluent areas of acute consolidation. PLEURA: No layering pleural effusions or pneumothorax. BONES: No acute osseous abnormality of the thorax. RAD/Chest 1 View (Portable) IMPRESSION: 1. Bibasilar subsegmental atelectasis. at 1834 Reported and signed by: Dax Rivera MD Electronically Signed: Dax Rivera MD at 18:32 EDT Tel , Service support ,
[2020-10-20 18:06] LABS: Absolute Lymphocyte Count 1.07 X10^3/uL (0.83-4.51); Absolute Neutrophil Count 1.5 X10^3/uL (2.0-7.7); Basophil# 0.02 X10^3/uL; Basophil% 0.7 % (0-1); Eosinophil# 0.05 X10^3/uL; Eosinophils% 1.7 % (0-5); Hematocrit 23.1 % (37-47); Hemoglobin 7.4 g/dL (12.0-15.0); Lymphocyte # 1.07 X10^3/ul (4.0); Lymphocyte % 37.4 % (19-41); Mean Corpuscular Hgb 31.2 pg (27.0-32.0); Mean Corpuscular Volume 97.5 fL (81-99); Mean Platelet Vol. 9.8 fl (6.2-12.0); Monocyte# 0.24 X10^3/uL; Monocyte% 8.4 % (0-10); NRBC Flagged by Analyzer 0 % (0-5); Neutrophil # 1.48 X10^3/uL (2.7-7.7); Neutrophil % 51.8 % (47-70); Platelet Count 145 K/mm3 (150-450); RBC Distribution Width CV 14.7 % (11.6-14.6); RBC Distribution Width SD 53.1 fl (35.1-43.9); Red Blood Count 2.37 M/mm3 (4.2-5.4); White Blood Count 2.9 K/mm3 (4.4-11.0)
[2020-10-20 18:12] LABS: Mucous, Urine 0 SEEN /hpf (<or=2+); Red Blood Cells-Urine 0 SEEN /hpf (0-5); Squamous Epithelial Cells - UA 0 SEEN /hpf (5-10)
[2020-10-20 18:16] LABS: Color, Urine Yellow (Yellow); Glucose, Dipstick Normal (Normal); Ketone-Dipstick Negative (Negative); Leukocyte Esterase-Dipstick 500 /ul (Negative); Nitrite-Dipstick Negative (Negative); Occult Blood-Urine 10 /ul (Negative); Protein-Dipstick 15 mg/dl (Negative); Urine Bilirubin Dipstick Negative (Negative); Urine Clarity Cloudy (Clear); Urine Urobilinogen Normal (Normal)
[2020-10-20 18:20] LABS: ALB/GLOB Ratio 0.9 RATIO (0.9-2.4); AST(SGOT) 33 U/L (15-37); Alanine Aminotransfer ALT/SGPT 28 U/L (13-56); Albumin, Serum 3.1 g/dL (3.2-5.0); Alkaline Phosphatase 68 U/L (45-117); Anion Gap 5 (5-15); BUN 36 mg/dL (7-18); BUN/Creat Ratio 21.7 RATIO (10-20); Calcium,Total 8.9 mg/dL (8.5-10.1); Chloride 96 mmol/L (98-107); Creatinine, Serum 1.66 mg/dL (0.55-1.02); EST Glomerular Filtration Rate 32 mL/min (>60); Est Glom Filt Rate - Afr Amer 38 mL/min (>60); Estimated Creatinine Clearance 23.92 ml/min; Globulin 3.4 g/dL (2.2-4.2); Glucose 269 mg/dL (74-106); Potassium 3.6 mmol/L (3.5-5.1); Protein, Total 6.5 g/dL (6.4-8.2); Sodium Level 134 mmol/L (136-145)
[2020-10-20 18:23] LABS: Bacteria 2+ /hpf (None Seen); White Blood Cells 50-100 SEEN /hpf (0-5)
--- NOTE | 2020-10-20 18:47 | ED.VIS.GEN ---
History of Present Illness Chief Complaint: Dizziness Informant: Patient Onset: Days Context: Gradual Onset Timing: Continuous Narrative: Patient is an 80 year old female denting with worsening weakness. She states previous time she is felt like this she had either urinary tract infection or anemia. Patient states she has chronic anemia requires multiple blood transfusions. She cannot remember while she is anemic. She states she recently did have an EGD and colonoscopy she does not member what it found but states that she did not have cancer. She notes that she has had some increased urinary frequency and dysuria since yesterday. She denies any chest pain or difficulty breathing. She notes that she lives home alone but questions whether she should go into assisted living because she thinks might need more help than she has at home. Patient denies any associated chest pain. She states she does feel shaky and nervous. She when she feels dizzy. No other complaints at this time. She denies any black or bloody stools. To review shows that patient is on Plavix and aspirin. She follows with Dr. Maguire for her anemia. 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 Reji Galindo MD) Mother CAD (coronary artery disease) Father CAD (coronary artery disease) Family History: Reports: Heart Disease, - Paternal Family History: Family History (Last Reviewed 10/20/20 @ 19:[address] Reji Galindo MD) Mother CAD (coronary artery disease) Father CAD (coronary artery disease) Family History: Reports: Heart Disease Review of Systems General: Reports: Malaise, - - Generalized weakness. Denies: Chills, Fever, Sweats Eyes: Denies: Visual changes - bilaterally, Diplopia ENT: Denies: Rhinorrhea, Sore throat Cardiovascular: Denies: Chest pain, Palpitations Respiratory: Denies: Dyspnea, Cough, Dyspnea on exertion Gastrointestinal: Denies: Abdominal pain, Nausea, Vomiting, Diarrhea, Melena, Hematochezia Genitourinary: Reports: Dysuria, Frequency. Denies: Hematuria Musculoskeletal: Denies: Back pain, Extremity Pain Skin: Denies: Rash, Wounds Neurological: Reports: Weakness - Generalized. Denies: Headache, Numbness Physical Exam Vital Signs/Narrative: Vital Signs Temp Pulse Resp BP Pulse Ox 10/20/20 18:38 82 18 114/52 L 99 10/20/20 16:58 98.1 F 74 12 112/48 L 99 Inital Vital Signs reviewed: Yes General: Well nourished, Well developed, No Acute Distress Head: Normocephalic, Atraumatic Eyes: Perrl, EOMI, Pale conjunctiva ENT: Moist mucous membranes, No rhinorrhea Neck: Supple, Nontender Cardiovascular: Regular rate, Regular rhythm, No murmurs Respiratory: No distress, CTA bilaterally, Chest nontender. Negative for: Diminished Abdomen: Soft, Nontender, Nondistended, Normal bowel sounds Back: Nontender, Normal Inspection Extremities: Nontender, No edema Skin: Normal color, No rash Neurological: Alert, Oriented x3, Cranial nerves II-XII grossly intact, Normal Strength, Normal Sensation Psychological: Normal affect, Normal Mood Diagnostic/Tx/Re-eval Chest X-Ray - ED: 1 View, Read by ED Physician, Read by Radiologist, No Acute Disease Clinical Impression(s) from Imaging Studies Chest X-Ray 10/20/20 17:45 IMPRESSION: 1. Bibasilar subsegmental atelectasis. at 1834 Reported and signed by: Dax Rivera MD Electronically Signed: Dax Rivera MD at 18:32 EDT Tel , Service support , Laboratory Data 10/20/20 10/20/20 10/20/20 17:40 17:40 17:40 WBC 2.9 L RBC 2.37 L Hgb 7.4 L Hct 23.1 L MCV 97.5 MCH 31.2 MCHC 32.0 RDW Std Deviation 53.1 H RDW Coeff of Conchis 14.7 H Plt Count 145 L MPV 9.8 Immature Gran % (Auto) 0.000 Neut % (Auto) 51.8 Lymph % (Auto) 37.4 [place] % (Auto) 8.4 Eos % (Auto) 1.7 Baso % (Auto) 0.7 Absolute Neuts (auto) 1.5 L Absolute Lymphs (auto) 1.07 Nucleated RBC % 0 Sodium 134 L Potassium 3.6 Chloride 96 L Carbon Dioxide 33.0 H Anion Gap 5 BUN 36 H Creatinine 1.66 H Estim Creat Clear Calc 23.92 Est GFR (MDRD) Af Amer 38 L Est GFR (MDRD) Non-Af 32 L BUN/Creatinine Ratio 21.7 H Glucose 269 H Calcium 8.9 Total Bilirubin 0.80 AST 33 ALT 28 Alkaline Phosphatase 68 Troponin I 0.141 H Total Protein 6.5 Albumin 3.1 L Globulin 3.4 Albumin/Globulin Ratio 0.9 Urine Color Urine Clarity Urine pH Ur Specific [place] Urine Protein Urine Glucose (UA) Urine Ketones Urine Occult Blood Urine Nitrite Urine Bilirubin Urine Urobilinogen Ur Leukocyte Esterase Urine RBC Urine WBC Ur Squamous Epith Cells Urine Bacteria Urine Mucus Blood Type A POSITIVE Antibody Screen NEGATIVE 10/20/20 18:06 WBC RBC Hgb Hct MCV MCH MCHC RDW Std Deviation RDW Coeff of Conchis Plt Count MPV Immature Gran % (Auto) Neut % (Auto) Lymph % (Auto) [place] % (Auto) Eos % (Auto) Baso % (Auto) Absolute Neuts (auto) Absolute Lymphs (auto) Nucleated RBC % Sodium Potassium Chloride Carbon Dioxide Anion Gap BUN Creatinine Estim Creat Clear Calc Est GFR (MDRD) Af Amer Est GFR (MDRD) Non-Af BUN/Creatinine Ratio Glucose Calcium Total Bilirubin AST ALT Alkaline Phosphatase Troponin I Total Protein Albumin Globulin Albumin/Globulin Ratio Urine Color Yellow Urine Clarity Cloudy Urine pH 8.0 Ur Specific [place] 1.010 Urine Protein 15 H Urine Glucose (UA) Normal Urine Ketones Negative Urine Occult Blood 10 H Urine Nitrite Negative Urine Bilirubin Negative Urine Urobilinogen Normal Ur Leukocyte Esterase 500 H Urine RBC 0 SEEN Urine WBC 50-100 SEEN Ur Squamous Epith Cells 0 SEEN Urine Bacteria 2+ Urine Mucus 0 SEEN Blood Type Antibody Screen - Rhythm Strip Rhythm Strip: Sinus Rhythm Rate: 72 Ectopy: None - EKG Initial EKG Interpretation: Sinus Rhythm, - - Normal sinus rhythm at a rate of 72 Left axis deviation Prolonged QTC at [address] [place] and QRS ST depressions in V4 through V6 Compared to prior EKG on 09/13/2020 no acute changes - Medical Decision Making Evaluated for worsening generalized weakness. She appears nontoxic in no acute distress. She does have dry mucosal membranes. Patient is given later fluids in the ER. Her hemoglobin is 7.4. Patient's baseline appears to be closer to 9 or 10. Patient actually has pancytopenia. However this is chronic for her and her platelets are actually improved from her baseline. In addition patient has a mild elevation of her creatinine of 1.66. Her baseline is closer to 1. She is hyperglycemic with a glucose of 269 however her anion gap is normal. Patient does have an elevated troponin of 0.141 however this is at her baseline. Patient had an NSTEMI last year and her troponin was as high as 28. Patient's urine is concerning for UTIs as 500 leukoesterase 50-100 white blood cells and 2+ bacteria with no squamous cells. I suspect patient has mixture of anemia and UTI that is contributed to her weakness. Patient is given IV Rocephin and 2 units of packed red blood cells in the ER as she does have history of coronary artery disease and symptomatic. She will be admitted for further treatment and evaluation. Patient is agreeable with plan of care. She is stable at time of disposition. ED Disposition - Plan for ED Patient: Disposition: Acute Care Hospital [facility] Diagnosis: YOSELIN (acute kidney injury), Generalized weakness, Anemia, CAD (coronary artery disease), UTI (urinary tract infection)
[2020-10-20] MEDS: Ceftriaxone 1 GM/50 ML BAG IV (19:13)
--- NOTE | 2020-10-20 19:32 | HP.PCM_ITS ---
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 transplanted heart: [place] heart Qualified Code(s): I25.119 - Atherosclerotic heart disease of [place] coronary artery with unspecified angina pectoris Comment: (9) History of non-ST elevation myocardial infarction (NSTEMI) Status: Resolved Comment: 08/16/2018, 06/2019, 07/25/2019, 02/10/2020 (10) History of coronary artery stent placement Status: Chronic Comment: PCI of ostial and mid LCx ISR with laser atherectomy, balloon angioplasty 08/20/18 PTCA and laser atherectomy-Prox LCx 02/03/2018; POBA-ostial/prox LCx 11/09/2017; [id number]-[id number] LCx w/ 2.5 x 20 mm Synergy Stent, RAYMON-Distal LM-into the Ostium of LAD w/ 4.0 x 16 mm Synergy Stent 07/05/2017; POBA-Ostium and Prox LCx 04/19/2017; PCI-Rotational Ktwznewoejg-ZQP-IDO with a 2.75 x 38 mm Promus Premier drug eluting stent 12/15/13; RAYMON-Mid RPLB w/ 3.0 x 28 mm Cypher and Prox RPLB w/ 3.0 x 8 mm Cypher, RAYMON- Ostium RPDA w/ 2.5 x 28 mm Cypher 09/17/2007 (11) Chronic diastolic (congestive) heart failure Status: Chronic (12) Non-rheumatic aortic stenosis Status: Chronic (13) Essential hypertension Status: Chronic (14) Hyperlipidemia Status: Chronic Qualifiers: Hyperlipidemia type: unspecified Qualified Code(s): E78.5 - Hyperlipidemia, unspecified (15) Diabetes mellitus, type II Status: Chronic Qualifiers: Diabetes mellitus halfway insulin use: with halfway use Diabetes mellitus complication status: with unspecified complications (16) Hypothyroidism Status: Chronic Qualifiers: Hypothyroidism type: unspecified Qualified Code(s): E03.9 - Hypothyroidism, unspecified (17) Schizophrenia Status: Chronic Qualifiers: Schizophrenia type: unspecified Qualified Code(s): F20.9 - Schizophrenia, unspecified (18) Anemia Status: Chronic Comment: Follows with Dr Son (19) 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) Status: Chronic (20) GI bleed Status: Resolved History of Present Illness Date of Admission: 10/20/20 Chief Complaint: Tremors The patient is a 80 year old F with a significant history of CAD status post stent; hypertension; diabetes mellitus; liver cirrhosis; schizophrenia and hypothyroidism who presents to the emergency department with a 2-day history of tremors. Further she reports unsteady gait. Because she has not been unable to take care of herself she has been packing and making herself ready to go to an assisted living facility. Also, she reports dysuria and burning with urination. She reports chest pain that radiated to his left arm when antibiotics was started. Past Medical History Past Medical History (Chronic Problems): Chronic Problems (Last Reviewed 10/20/20 @ 19:[address] Reji Galindo MD) CAD (coronary artery disease) (Chronic) Acute exacerbation of CHF (congestive heart failure) (Chronic) Atherosclerotic heart disease [place] coronary artery w/angina pectoris (Chronic) History of coronary artery stent placement (Chronic 08/20/18) PCI of ostial and mid LCx ISR with laser atherectomy, balloon angioplasty 08/20/18 PTCA and laser atherectomy-Prox LCx 02/03/2018; POBA-ostial/prox LCx 11/09/2017; LKK-[id number]-Qwfo LCx w/ 2.5 x 20 mm Synergy Stent, RAYMON-Distal LM-into the Ostium of LAD w/ 4.0 x 16 mm Synergy Stent 07/05/2017; POBA-Ostium and Prox LCx 04/19/2017; PCI-Rotational Zjvtaycbjce-CZE-KKS with a 2.75 x 38 mm Promus Premier drug eluting stent 12/15/13; RAYMON-Mid RPLB w/ 3.0 x 28 mm Cypher and Prox RPLB w/ 3.0 x 8 mm Cypher, RAYMON- Ostium RPDA w/ 2.5 x 28 mm Cypher 09/17/2007 Chronic diastolic (congestive) heart failure (Chronic) Non-rheumatic aortic stenosis (Chronic) Essential hypertension (Chronic) Hyperlipidemia (Chronic) Diabetes mellitus, type II (Chronic) Hypothyroidism (Chronic) Schizophrenia (Chronic) Anemia (Chronic) Follows with Dr Son 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) Medical History: Medical History (Last Reviewed 10/20/20 @ 19:[address] Reji Galindo MD) Atherosclerotic heart disease [place] coronary artery w/angina pectoris (Chronic) I25.119 History of non-ST elevation myocardial infarction (NSTEMI) (Resolved) Onset Date: 03/26/20 I25.2 08/16/2018, 06/2019, 07/25/2019, 02/10/2020 Chronic diastolic (congestive) heart failure (Chronic) I50.32 Non-rheumatic aortic stenosis (Chronic) I35.0 Essential hypertension (Chronic) I10 Hyperlipidemia (Chronic) E78.5 Diabetes mellitus, type II (Chronic) E11.9 Hypothyroidism (Chronic) E03.9 Schizophrenia (Chronic) F20.9 Anemia (Chronic) D64.[address] Son 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) K75.81, K74.60 GI bleed (Resolved) Onset Date: 05/07/20 K92.2 Obesity (BMI 30.0-34.9) E66.9 Pancytopenia D61.818 Thrombocytopenia D69.6 Acute respiratory failure with hypoxia J96.01 Acute respiratory failure with hypoxia and hypercapnia J96.01, J96.02 Lactic acidosis E87.2 Postoperative haemorrhage Mitral valve insufficiency (Inactive) I34.0 NSTEMI (non-ST elevated myocardial infarction) (Inactive) I21.4 Non-rheumatic mitral regurgitation (Inactive) I34.0 Nonrheumatic tricuspid valve regurgitation (Inactive) I36.1 Tricuspid valve insufficiency (Inactive) I07.1 Allergies aripiprazole [From Abilify] Allergy (Intermediate, Verified 10/20/20 17:00) it over powered me lisinopril Allergy (Intermediate, Verified 10/20/20 17:00) Unknown atorvastatin calcium [From Lipitor] Adverse Reaction (Verified 10/20/20 17:00) Unknown rosiglitazone maleate [From Avandia] Adverse Reaction (Verified 10/20/20 17:00) Other Home Medications: Ambulatory Orders Medication Instructions Recorded Aspirin [Aspirin, Baby] 81 mg PO DAILY@0800 06/30/17 Nitroglycerin [Nitrostat] 0.4 mg SL PRN PRN 06/30/17 Multivitamins,Therapeutic 1 tab PO DAILY 02/01/18 [Multivitamin] ascorbic acid (vitamin C) 500 mg 500 mg PO DAILY 09/13/18 tablet Insulin Glargine,Hum.rec.anlog 34 unit SC DAILY 04/23/19 [Toujeo Solostar] Carvedilol [Coreg] 3.125 mg PO BIDCM 06/24/19 Cholecalciferol (Vitamin D3) 5,000 unit PO DAILY 06/24/19 [Vitamin D3] Levothyroxine [Synthroid] 100 mcg PO DAILY 07/24/19 Folic Acid 1 mg PO DAILY 02/10/20 Furosemide 40 mg PO BID 02/10/20 Insulin Regular, Human [Humulin R] 8 unit SQ TIDCM 02/10/20 Acetaminophen [Tylenol Tablet] 650 mg PO Q6H PRN PRN tab 03/29/20 Pantoprazole Sodium [Protonix] 40 mg PO BID #60 tab 03/29/20 losartan 25 mg tablet 25 mg PO DAILY #30 tab 04/29/20 metolazone 2.5 mg tablet 2.5 mg PO .COMPLEX tab 06/17/20 mirabegron 25 mg tablet,extended 25 mg PO DAILY 06/17/20 release 24 hr albuterol sulfate 90 mcg/actuation 2 puff INHALATION Q6H PRN 08/11/20 aerosol inhaler pravastatin 80 mg tablet 80 mg PO DAILY #90 tab 08/13/20 ranolazine 1,000 mg 1,000 mg PO BID #60 tab 08/20/20 tablet,extended release,12 hr Clopidogrel Bisulfate [Clopidogrel] 75 mg PO DAILY #30 tab 09/01/20 isosorbide mononitrate 30 mg 30 mg PO .COMPLEX #30 tab 09/03/20 tablet,extended release 24 hr isosorbide mononitrate 60 mg 60 mg PO .COMPLEX #60 tab 09/03/20 tablet,extended release 24 hr spironolactone 25 mg tablet 12.5 mg PO DAILY #1 tab 09/29/20 Surgical History: Surgical History (Last Reviewed 10/20/20 @ 19:[address] Reji Galindo MD) History of coronary artery stent placement (Chronic) Onset Date: 08/20/18 Z95 .5 PCI of ostial and mid LCx ISR with laser atherectomy, balloon angioplasty 08/20/18 PTCA and laser atherectomy-Prox LCx 02/03/2018; POBA-ostial/prox LCx 11/09/2017; UZF-OGA-Zmcl LCx w/ 2.5 x 20 mm Synergy Stent, RAYMON-Distal LM-into the Ostium of LAD w/ 4.0 x 16 mm Synergy Stent 07/05/2017; POBA-Ostium and Prox LCx 04/19/2017; PCI-Rotational Olfyzgogyio-DRJ-SWI with a 2.75 x 38 mm Promus Premier drug eluting stent 12/15/13; RAYMON-Mid RPLB w/ 3.0 x 28 mm Cypher and Prox RPLB w/ 3.0 x 8 mm Cypher, RAYMON- Ostium RPDA w/ 2.5 x 28 mm Cypher 09/17/2007 History of appendectomy Z90.49 History of cholecystectomy Z90.49 History of colonoscopy Onset Date: 04/2020 Z98.890 History of esophagogastroduodenoscopy (EGD) Onset Date: 04/2020 Z98.890 History of left heart catheterization Onset Date: 06/25/19 Z98.890 History of tonsillectomy and adenoidectomy Z98.890 History of spinal fusion (Inactive) Z98.1 anterior Surgical History: angioplasty, appendectomy, cholecystectomy, tonsillectomy, - - Spinal fusion Psychiatric History: No pertinent psych hx DIRECT RESPONSE CONSULTANT History: No pertinent DIRECT RESPONSE CONSULTANT history Smoking Status: Never smoker - *Family History Maternal Family History: Family History (Last Reviewed 10/20/20 @ 19:[address] Reji Galindo MD) Mother CAD (coronary artery disease) Father CAD (coronary artery disease) History Items: Heart Disease, - Paternal Family History: Family History (Last Reviewed 10/20/20 @ 19:[address] Reji Galindo MD) Mother CAD (coronary artery disease) Father CAD (coronary artery disease) History Items: Heart Disease Review of Systems Constitutional: Reports: Weakness. Denies: Chills, Fever, Weight Change HEENT: Denies: Head Aches, Sinus Congestion, Sinus Drainage Cardiovascular: Reports: Chest Pain. Denies: Palpitations Respiratory: Denies: Cough, Shortness of breath at rest, Sputum production Gastrointestinal: Denies: Abdominal Pain, Nausea, Vomiting Genitourinary: Reports: Dysuria Musculoskeletal: Denies: Joint Pain, Joint Tenderness Skin: Denies: Rash, Wounds Neurological: Denies: Numbness, Tingling, Focal weakness Psychiatric: Denies: Anxiety, Depression, Homicidal Ideations, Suicidal Ideations Hematologic/ Lymphatic: Denies: Easy Bruising, Easy Bleeding VTE Information - Inpt Only VTE Present on Admission: No VTE Mechan Device Prophylaxis: SCD's VTE Pharm Prophylaxis ordered?: No Patient Problems: Active and Suspected Problems (Last Reviewed 10/20/20 @ 19:[address] Reji Galindo MD) YOSELIN (acute kidney injury) (Acute) UTI (urinary tract infection) (Acute) - Physical Exam Vitals/I&O's: Vital Signs Temp Pulse Resp BP Pulse Ox 98.1 F 82 18 114/52 L 99 10/20/20 16:58 10/20/20 18:38 10/20/20 18:38 10/20/20 18:38 10/20/20 18:38 Oxygen Delivery Method Nasal Cannula Weight: 87.9 kg Body Mass Index (BMI) 32.2 Finger Stick Blood Glucose 270 Intake and Output for Last 24 Hours 10/18/20 10/19/20 10/20/20 23:59 23:59 23:59 Intake Total 500 / 500 Balance 500 / 500 General: Alert, Oriented x3, Cooperative HEENT: Atraumatic, PERRLA, EOMI, Normocephalic Neck: Supple, No JVD, Negative Carotid Bruits Lungs: Clear to auscultation, Normal air movement Cardiovascular: Regular rate, Normal S1, Normal S2, No murmurs Abdomen: Bowel Sounds Present, Soft, Non Tender Extremities: Capillary Refill Less than 3 Seconds, Edema - Bilateral legs Skin: No rashes, No breakdown Musculoskeletal: No Tenderness to Palpation of Joints or Extremities Neurological: Cranial nerves II-XII grossly intact Psych/Mental Status: Anxious Laboratory Results 10/20/20 17:40: WBC 2.9 L, RBC 2.37 L, Hgb 7.4 L, Hct 23.1 L, MCV 97.5, MCH 31.2, MCHC 32.0, RDW Std Deviation 53.1 H, RDW Coeff of Conchis 14.7 H, Plt Count 145 L, MPV 9.8, Immature Gran % (Auto) 0.000, Neut % (Auto) 51.8, Lymph % (Auto) 37.4, [place] % (Auto) 8.4, Eos % (Auto) 1.7, Baso % (Auto) 0.7, Absolute Neuts (auto) 1.5 L, Absolute Lymphs (auto) 1.07, Nucleated RBC % 0 10/20/20 17:40: Sodium 134 L, Potassium 3.6, Chloride 96 L, Carbon Dioxide 33.0 H, Anion Gap 5, BUN 36 H, Creatinine 1.66 H, Estim Creat Clear Calc 23.92, Est GFR (MDRD) Af Amer 38 L, Est GFR (MDRD) Non-Af 32 L, BUN/Creatinine Ratio 21.7 H , Glucose 269 H, Calcium 8.9, Total Bilirubin 0.80, AST 33, ALT 28, Alkaline Phosphatase 68, Troponin I 0.141 H, Total Protein 6.5, Albumin 3.1 L, Globulin 3.4, Albumin/Globulin Ratio 0.9 10/20/20 17:40: Blood Type A POSITIVE, Antibody Screen NEGATIVE 10/20/20 18:06: Urine Color Yellow, Urine Clarity Cloudy, Urine pH 8.0, Ur Specific [place] 1.010, Urine Protein 15 H, Urine Glucose (UA) Normal, Urine Ketones Negative, Urine Occult Blood 10 H, Urine Nitrite Negative, Urine Bilirubin Negative, Urine Urobilinogen Normal, Ur Leukocyte Esterase 500 H, Urine RBC 0 SEEN, Urine WBC 50-100 SEEN, Ur Squamous Epith Cells 0 SEEN, Urine Bacteria 2+, Urine Mucus 0 SEEN Assessment/Plan All Active Problems (Last Reviewed 10/20/20 @ 19:[address] Reji Galindo MD) Generalized weakness (Resolved) Hypokalemia (Resolved) Vomiting (Resolved) YOSELIN (acute kidney injury) (Acute) UTI (urinary tract infection) (Acute) History of non-ST elevation myocardial infarction (NSTEMI) (Resolved 03/26/20) GI bleed (Resolved 05/07/20) The patient is a 80 year old F with a significant history of CAD status post stent; hypertension; diabetes mellitus; liver cirrhosis; schizophrenia and hypothyroidism who presents emergency department with a 2-day history of tremors; unsteady gait; inability to care for self; dysuria; burning with urination; chest pain; who was found to have worsening of anemia; elevated troponin but within baseline and elevated creatinine above her baseline. Acute UTI Review of emergency department labs showed urine protein of 15; urine occult blood; urine leukocyte Esterase of 500; urine WBC of 50-100; no squamous cell and with urine bacteria of 2+. Started on ceftriaxone IV at emergency department and continued. Trend CBC. Chest pain Current EKG and previous EKG was independently interpreted. EKG is unchanged. Troponin is within baseline Trend troponin Continue aspirin and Plavix. Acute on chronic symptomatic anemia Reportedly patient has had endoscopy and colonoscopy with Dr. Hatfield . Patient follows up with Dr. Son; otology/oncologist. The etiology of the anemia remains unclear. Stool for occult blood ordered. 2 units of packed red blood cells was ordered at emergency department to be transfused. CBC in a.m. YOSELIN on chronic kidney disease stage III CKD Likely from Diabetic nephropathy Baseline creatinine of around 1. Creatinine on admission was 1.66. BUN is 36. BUN over creatinine is 21.7. Likely prerenal Received 1 L normal saline bolus at emergency department. 2 units of packed red blood cells been ordered to be transfused. Of note patient has a history of congestive heart failure Hold home diuretics. Avoid other nephrotoxins. Trend BMP. Diabetes mellitus Patient with hyperglycemia on presentation Basal insulin continued. Prandial insulin ordered Accu-Chek QA [facility] with correction scale insulin ordered. General weakness/debility PT and OT to work with patient Case management consult for disposition. History of CAD with stent/non-ST elevation DC Aspirin and Plavix continued Chronic heart failure with preserved ejection fraction Echocardiogram on 02/11/2020 showed estimated ejection fraction of 55%. Stage I diastolic dysfunction was noted. Anterior apex was mildly hypokinetic. Lateral apex was mildly hypokinetic. Left atrium was moderately enlarged. Mild mitral valve insufficiency was noted. Trivial tricuspid valve insufficiency was noted. Right ventricular systolic pressure was 21mmHg. Mild aortic stenosis was noted. Stable Hold home diuretics for now. Obesity: BMI: 32.2. Complicates care. Lifestyle modification recommended. DVT Prophylaxis SCD ordered. Will avoid chemical thromboprophylaxis secondary to acute on chronic anemia. Inpatient E&M: 00545 Init Hosp L3
[2020-10-20] MEDS: Pravastatin 80 MG Tablet PO (22:56)
[2020-10-20] MEDS: Pantoprazole Sodium 40 MG Tablet PO (22:56)
[2020-10-20] MEDS: Ranolazine 500 MG Tablet 1000 MG PO (22:56)
[2020-10-20] MEDS: Isosorbide Mononitrate 60 MG Tablet PO (22:56)
[2020-10-20] MEDS: Insulin Lispro 100 UNIT/ML INSULN.PEN SC (23:01)
[2020-10-20 23:05] LABS: Bedside Glucose 196 mg/dL (70-110)
[2020-10-21] VITALS (11 sets, daily range): BP systolic 98–120; BP diastolic 47–50; PULSE 62–72; RESP 14–16; TEMP 36.8–37.4; O2SAT 93–98
[2020-10-21 05:45] LABS: Absolute Lymphocyte Count 1.16 X10^3/uL (0.83-4.51); Absolute Neutrophil Count 1.8 X10^3/uL (2.0-7.7); Basophil# 0.02 X10^3/uL; Basophil% 0.6 % (0-1); Eosinophil# 0.06 X10^3/uL; Eosinophils% 1.8 % (0-5); Hematocrit 25.8 % (37-47); Hemoglobin 8.3 g/dL (12.0-15.0); Lymphocyte # 1.16 X10^3/ul (4.0); Lymphocyte % 34.8 % (19-41); Mean Corp Hgb Conc 32.2 g/dL (32-36); Mean Corpuscular Hgb 30.3 pg (27.0-32.0); Mean Corpuscular Volume 94.2 fL (81-99); Mean Platelet Vol. 9.6 fl (6.2-12.0); Monocyte# 0.31 X10^3/uL; Monocyte% 9.3 % (0-10); NRBC Flagged by Analyzer 0 % (0-5); Neutrophil # 1.78 X10^3/uL (2.7-7.7); Neutrophil % 53.5 % (47-70); Platelet Count 120 K/mm3 (150-450); RBC Distribution Width CV 16.7 % (11.6-14.6); RBC Distribution Width SD 57.1 fl (35.1-43.9); Red Blood Count 2.74 M/mm3 (4.2-5.4); White Blood Count 3.3 K/mm3 (4.4-11.0)
[2020-10-21 06:13] LABS: Anion Gap 4 (5-15); BUN 30 mg/dL (7-18); Calcium,Total 8.4 mg/dL (8.5-10.1); Chloride 102 mmol/L (98-107); Creatinine, Serum 1.25 mg/dL (0.55-1.02); EST Glomerular Filtration Rate 44 mL/min (>60); Est Glom Filt Rate - Afr Amer 53 mL/min (>60); Estimated Creatinine Clearance 33.04 ml/min; Glucose 178 mg/dL (74-106); Potassium 3.5 mmol/L (3.5-5.1); Sodium Level 138 mmol/L (136-145)
[2020-10-21 06:51] LABS: Bedside Glucose 171 mg/dL (70-110)
[2020-10-21] MEDS: Folic Acid 1 MG Tablet PO (08:39)
[2020-10-21] MEDS: Aspirin 81 MG TAB.CHEW PO (08:40)
[2020-10-21] MEDS: Ascorbic Acid 500 MG Tablet PO (08:40)
[2020-10-21] MEDS: Clopidogrel Bisulfate 75 MG Tablet PO (08:40)
[2020-10-21] MEDS: Carvedilol 3.125 MG TABLET PO ×2 (08:40→17:40)
[2020-10-21] MEDS: Multivitamins,Therapeutic Tablet 1 TABLET PO (08:40)
[2020-10-21] MEDS: Pantoprazole Sodium 40 MG Tablet PO ×2 (08:40→21:01)
[2020-10-21] MEDS: Insulin Lispro 100 UNIT/ML INSULN.PEN SC ×6 (08:41→17:39)
--- NOTE | 2020-10-21 10:17 | CASEMGMT ---
SUAD received a call from Helena with [facility]. She is patient's case management rn. She said they are waiting for a move in date for [facility]. They thought they would get it this week, but they have not received the okay yet. She asked that SUAD let coverage know about patient's d/c plan as she will be out tomorrow. Karina SERRATO MSW
[2020-10-21] MEDS: Isosorbide Mononitrate 30 MG Tablet 90 MG PO (10:48)
[2020-10-21] MEDS: Ranolazine 500 MG Tablet 1000 MG PO ×2 (10:48→21:02)
[2020-10-21] MEDS: Mirabegron 25 MG TAB.ER.24H PO (10:48)
[2020-10-21 12:25] LABS: Bedside Glucose 217 mg/dL (70-110)
--- NOTE | 2020-10-21 13:06 | CASEMGMT ---
SUAD called Lastanastasiialai from [facility] and left her a voice mail requesting a return call. SW went to patient's room. Introduced self and role at [facility]. SW told her SW spoke with Helena and SW is aware she is waiting to move into [facility]. SW let her know that therapy is recommending she go to a half-way short term before she goes to assisted living. She said, No. SW asked where she was going to go. She said she would go home. Then patient said, I don't see why I need to go to a half-way if I am getting good care there. SW told her she isn't in assisted living yet. Patient then went on to tell SW she used to live at [facility] etc. SW told her SW will talk with Helena to see if it is even an option for patient to go to [facility] at d/c. Karina GUTHRIE
--- NOTE | 2020-10-21 14:00 | CASEMGMT ---
SUAD did talk with Myriamlai from [facility] again. She said [facility] has not given them a move in date yet. She also said they were going to have to get volunteers from a christian[employer] to help move patient so it wasn't going to be a quick thing. She is not sure how long [facility] will hold patient's room if she is at the SNF when her room opens up. SUAD will call [facility] to see if they can give more insight. Karina SERRATO [employer]
--- NOTE | 2020-10-21 15:34 | PCM.PN.HOSP ---
<aWgner Rebolledo - Last Filed: 10/21/20 16:33> Patient Problems: Active and Suspected Problems (Last Reviewed 10/20/20 @ 19:[address] Reji Galindo MD) YOSELIN (acute kidney injury) (Acute) UTI (urinary tract infection) (Acute) Generalized weakness (Acute) Subjective: Patient is an 80-year-old female comfortably resting in bed, alert and oriented x3. Patient has no complaints at this time and reports resolution of her symptoms at admission. Denies tremors, chest pain, burning with urination. Objective: Clinical Impression(s) from Imaging Studies Chest X-Ray 10/20/20 17:45 IMPRESSION: 1. Bibasilar subsegmental atelectasis. at 1834 Reported and signed by: Dax Rivera MD Electronically Signed: Dax Rivera MD at 18:32 EDT Tel , Service support , Vitals/I&O's: Vital Signs Temp Pulse Resp BP Pulse Ox 98.3 F 66 14 101/48 L 97 10/21/20 15:02 10/21/20 15:02 10/21/20 15:02 10/21/20 15:02 10/21/20 15:02 Oxygen Delivery Method Room Air Weight: 193 lb 12.581 oz Body Mass Index (BMI) 32.2 Finger Stick Blood Glucose 270 Intake and Output for Last 24 Hours 10/19/20 10/20/20 10/21/20 23:59 23:59 23:59 Intake Total 1190 / 1190 1090 / 1090 Output Total 250 / 250 600 / 600 Balance 940 / 940 490 / 490 General: Alert, Oriented x3, Cooperative HEENT: Atraumatic, PERRLA, EOMI, Normocephalic Neck: Supple, No JVD, Negative Carotid Bruits Lungs: Clear to auscultation, Normal air movement Cardiovascular: Regular rate, No murmurs Abdomen: Bowel Sounds Present, Soft, Non Tender Extremities: No edema, Capillary Refill Less than 3 Seconds Skin: No rashes, No breakdown Musculoskeletal: No Tenderness to Palpation of Joints or Extremities Neurological: Cranial nerves II-XII grossly intact Psych/Mental Status: Normal Affect, Appropriate Laboratory Results 10/20/20 17:40: WBC 2.9 L, RBC 2.37 L, Hgb 7.4 L, Hct 23.1 L, MCV 97.5, MCH 31.2, MCHC 32.0, RDW Std Deviation 53.1 H, RDW Coeff of Conchis 14.7 H, Plt Count 145 L, MPV 9.8, Immature Gran % (Auto) 0.000, Neut % (Auto) 51.8, Lymph % (Auto) 37.4, [place] % (Auto) 8.4, Eos % (Auto) 1.7, Baso % (Auto) 0.7, Absolute Neuts (auto) 1.5 L, Absolute Lymphs (auto) 1.07, Nucleated RBC % 0 10/20/20 17:40: Sodium 134 L, Potassium 3.6, Chloride 96 L, Carbon Dioxide 33.0 H, Anion Gap 5, BUN 36 H, Creatinine 1.66 H, Estim Creat Clear Calc 23.92, Est GFR (MDRD) Af Amer 38 L, Est GFR (MDRD) Non-Af 32 L, BUN/Creatinine Ratio 21.7 H, Glucose 269 H, Calcium 8.9, Total Bilirubin 0.80, AST 33, ALT 28, Alkaline Phosphatase 68, Troponin I 0.141 H, Total Protein 6.5, Albumin 3.1 L, Globulin 3.4, Albumin/Globulin Ratio 0.9 10/20/20 17:40: Blood Type A POSITIVE, Antibody Screen NEGATIVE 10/20/20 17:40: Crossmatch See Detail 10/20/20 18:06: Urine Color Yellow, Urine Clarity Cloudy, Urine pH 8.0, Ur Specific [place] 1.010, Urine Protein 15 H, Urine Glucose (UA) Normal, Urine Ketones Negative, Urine Occult Blood 10 H, Urine Nitrite Negative, Urine Bilirubin Negative, Urine Urobilinogen Normal, Ur Leukocyte Esterase 500 H, Urine RBC 0 SEEN, Urine WBC 50-100 SEEN, Ur Squamous Epith Cells 0 SEEN, Urine Bacteria 2+, Urine Mucus 0 SEEN 10/20/20 21:21: Troponin I 0.158 H 10/20/20 22:52: POC Glucose 196 H 10/20/20 23:40: Troponin I 0.182 H 10/21/20 05:08: WBC 3.3 L, RBC 2.74 L, Hgb 8.3 L, Hct 25.8 L, MCV 94.2, MCH 30.3, MCHC 32.2, RDW Std Deviation 57.1 H, RDW Coeff of Conchis 16.7 H, Plt Count 120 L, MPV 9.6, Immature Gran % (Auto) 0.000, Neut % (Auto) 53.5, Lymph % (Auto) 34.8, [place] % (Auto) 9.3, Eos % (Auto) 1.8, Baso % (Auto) 0.6, Absolute Neuts (auto) 1.8 L, Absolute Lymphs (auto) 1.16, Nucleated RBC % 0 10/21/20 05:08: Sodium 138, Potassium 3.5, Chloride 102, Carbon Dioxide 32.0, Anion Gap 4 L, BUN 30 H, Creatinine 1.25 H, Estim Creat Clear Calc 33.04, Est GFR (MDRD) Af Amer 53 L, Est GFR (MDRD) Non-Af 44 L, BUN/Creatinine Ratio 24.0 H, Glucose 178 H, Calcium 8.4 L, Troponin I 0.244 H 10/21/20 06:43: POC Glucose 171 H 10/21/20 12:13: POC Glucose 217 H Current Medications Acetaminophen (Acetaminophen 325 Mg Tablet) 650 mg PO Q6H PRN PRN PRN Reason: Pain Score 1-10/Temp > 100.7 F Albuterol Sulfate (Albuterol 2.5 Mg/3 Ml Vial.Neb.) 2.5 mg INHALATION Q2H PRN PRN PRN Reason: SOB/WHEEZING Ascorbic Acid (Ascorbic Acid 500 Mg Tablet) 500 mg PO DAILY [facility] Last Admin: 10/21/20 08:40 Dose: 500 mg Documented by: Aspirin (Aspirin 81 Mg Tab.Chew) 81 mg PO DAILY@0800 [facility] Last Admin: 10/21/20 08:40 Dose: 81 mg Documented by: Carvedilol (Carvedilol 3.125 Mg Tablet) 3.125 mg PO BIDCM [facility] Last Admin: 10/21/20 08:40 Dose: 3.125 mg Documented by: Cholecalciferol (Cholecalciferol (Vit D3) 1,000 Unit (25mcg)) 5,000 unit PO DAILY [facility] Last Admin: 10/21/20 08:39 Dose: 5,000 unit Documented by: Clopidogrel Bisulfate (Clopidogrel Bisulfate 75 Mg Tablet) 75 mg PO DAILY [facility] Last Admin: 10/21/20 08:40 Dose: 75 mg Documented by: Dextrose (Dextrose 50%-Water 25 Gm/50 Ml Disp.Syrin) 0 gm IV X1 PRN; Protocol PRN Reason: Hypoglycemia Folic Acid (Folic Acid 1 Mg Tablet) 1 mg PO DAILY@0800 [facility] Last Admin: 10/21/20 08:39 Dose: 1 mg Documented by: Glucagon (Glucagon 1 Mg/Ml Syringe) 1 mg IM .X1 PRN PRN Reason: Hypoglycemia Ceftriaxone Sodium (Rocephin) 1 gm in 50 mls @ 100 mls/hr IV Q24@2200 [facility] Insulin Glargine (Insulin Glargine 100 Units/Ml Pen) 34 units SC DAILY [facility] Last Admin: 10/21/20 10:49 Dose: 34 units Documented by: Insulin Human Lispro (Insulin Lispro 100 Unit/Ml Insuln.Pen) 5 unit SC BREAKFAST [facility] Last Admin: 10/21/20 08:41 Dose: 5 units Documented by: Insulin Human Lispro (Insulin Lispro 100 Unit/Ml Insuln.Pen) 5 unit SC DINNER [facility] Insulin Human Lispro (Insulin Lispro 100 Unit/Ml Insuln.Pen) 5 unit SC LUNCH [facility] Last Admin: 10/21/20 12:15 Dose: 5 units Documented by: Insulin Human Lispro (Insulin Lispro 100 Unit/Ml Insuln.Pen) 0 unit SC 4X/DAYCM [facility]; Protocol Last Admin: 10/21/20 12:15 Dose: 2 u Documented by: Isosorbide Mononitrate (Isosorbide Mononitrate 30 Mg Tablet) 90 mg PO DAILY [facility] Last Admin: 10/21/20 10:48 Dose: 90 mg Documented by: Isosorbide Mononitrate (Isosorbide Mononitrate 60 Mg Tablet) 60 mg PO QHS [facility] Last Admin: 10/20/20 22:56 Dose: 60 mg Documented by: Melatonin (Melatonin 3 Mg Tablet) 3 mg PO QHS PRN PRN PRN Reason: INSOMNIA Mirabegron (Mirabegron 25 Mg Tab.Er.24h) 25 mg PO DAILY [facility] Last Admin: 10/21/20 10:48 Dose: 25 mg Documented by: Multivitamins (Multivitamins,Therapeutic Tablet) 1 tablet PO DAILYCM [facility] Last Admin: 10/21/20 08:40 Dose: 1 tablet Documented by: Ondansetron HCl (Ondansetron 4 Mg/2 Ml Vial) 4 mg IV Q8H PRN PRN PRN Reason: NAUSEA/VOMITING Pantoprazole Sodium (Pantoprazole Sodium 40 Mg Tablet) 40 mg PO BID [facility] Last Admin: 10/21/20 08:40 Dose: 40 mg Documented by: Pravastatin Sodium (Pravastatin 80 Mg Tablet) 80 mg PO DAILY@2200 [facility] Last Admin: 10/20/20 22:56 Dose: 80 mg Documented by: Ranolazine (Ranolazine 500 Mg Tablet) 1,000 mg PO BID [facility] Last Admin: 10/21/20 10:48 Dose: 1,000 mg Documented by: Senna/Docusate Sodium (Senna/Docusate Sodium 1 Tablet) 2 tablet PO BID PRN PRN PRN Reason: Constipation Sodium Chloride (0.9% Saline Lock 10 Ml Syringe) 10 - 40 ml IV UD PRN PRN Reason: SALINE FLUSH Tramadol HCl (Tramadol 50 Mg Tablet) 50 mg PO Q6H PRN PRN PRN Reason: Pain 1-10 or Fever STROKE Vital Signs/Narrative: Vital Signs Temp Pulse Resp BP Pulse Ox 10/21/20 15:02 98.3 F 66 14 101/48 L 97 10/21/20 12:38 63 Medical Necessity - Tobacco Use Smoking Status: Never smoker Assessment/Plan All Active Problems (Last Reviewed 10/20/20 @ 19:[address] Reji Galindo MD) Generalized weakness (Resolved) Hypokalemia (Resolved) Vomiting (Resolved) YOSELIN (acute kidney injury) (Acute) UTI (urinary tract infection) (Acute) Generalized weakness (Acute) History of non-ST elevation myocardial infarction (NSTEMI) (Resolved 03/26/20) GI bleed (Resolved 05/07/20) Patient is an 80-year-old female comfortably resting in bed, alert and oriented x3. Patient has no complaints at this time and reports resolution of her symptoms at admission. Denies tremors, chest pain, burning with urination. Blood work and chemistries stable. Creatinine still elevated, however is downtrending. Patient is concerned about disposition and does not want to go to alf facility. Patient desires to go to assisted living, social work attempting to get patient into assisted living. Patient will remain admitted overnight. 1) Acute UTI Assessment - CBC unremarkable Plan -Continue on Rocephin 2) Chest pain Assessment - Troponins elevated throughout cycle - Troponins chronically elevated - EKG; NSR, left ventricular hypertrophy, prolonged QT Plan -Continue on aspirin and Plavix 3) Acute on chronic anemia Assessment - CBC unremarked - Managed outpatient with Dr. Son Plan - Continue to monitor 4) YOSELIN on CKD 3 Assessment - Creatinine 1.25 on 10/21/2020, trending down from admission Plan -Continue to hold home diuretics -Continue to trend BMP 5) DM 2 Assessment - POC glucose on 10/21/2020 Plan -Basal insulin continued. - Prandial insulin ordered - Accu-Chek QA CHS with correction scale insulin ordered 6) Debility Assessment - PT/OT eval recommends SNF Plan - Social work working to place patient into facility 7) Chronic heart failure with preserved ejection fraction Assessment - Echocardiogram on 02/11/2020 demonstrated; EF of 55%, Diastolic dysfunction, Mild , Mitral insufficeincy, Tricuspid insufficiency - Stable Plan - Continue to hold home diuretics until creatinine improves 8) CAD - continue Aspirin and plavix DVT prophylaxis - SCD's Patient seen by Wagner Rebolledo PA-C, under the supervision of Dr. Castillo <Marty Castillo - Last Filed: 10/21/20 16:46> Subjective: Does not want to go home. Does not want to go to SNF. Want to go directly to . Vitals/I&O's: Vital Signs Temp Pulse Resp BP Pulse Ox 36.8 C 66 14 101/48 L 97 10/21/20 15:02 10/21/20 16:21 10/21/20 15:02 10/21/20 15:02 10/21/20 15:02 Oxygen Delivery Method Room Air Weight: 87.9 kg Body Mass Index (BMI) 32.2 Finger Stick Blood Glucose 270 Intake and Output for Last 24 Hours 10/19/20 10/20/20 10/21/20 23:59 23:59 23:59 Intake Total 1190 / 1190 1090 / 1090 Output Total 250 / 250 600 / 600 Balance 940 / 940 490 / 490 General: Alert, Cooperative HEENT: Atraumatic, Normocephalic Lungs: Clear to auscultation, Normal air movement, No rhonchi, No wheeze Cardiovascular: Regular rate, No murmurs Laboratory Results 10/20/20 17:40: WBC 2.9 L, RBC 2.37 L, Hgb 7.4 L, Hct 23.1 L, MCV 97.5, MCH 31.2, MCHC 32.0, RDW Std Deviation 53.1 H, RDW Coeff of Conchis 14.7 H, Plt Count 145 L, MPV 9.8, Immature Gran % (Auto) 0.000, Neut % (Auto) 51.8, Lymph % (Auto) 37.4, [place] % (Auto) 8.4, Eos % (Auto) 1.7, Baso % (Auto) 0.7, Absolute Neuts (auto) 1.5 L, Absolute Lymphs (auto) 1.07, Nucleated RBC % 0 10/20/20 17:40: Sodium 134 L, Potassium 3.6, Chloride 96 L, Carbon Dioxide 33.0 H, Anion Gap 5, BUN 36 H, Creatinine 1.66 H, Estim Creat Clear Calc 23.92, Est GFR (MDRD) Af Amer 38 L, Est GFR (MDRD) Non-Af 32 L, BUN/Creatinine Ratio 21.7 H, Glucose 269 H, Calcium 8.9, Total Bilirubin 0.80, AST 33, ALT 28, Alkaline Phosphatase 68, Troponin I 0.141 H, Total Protein 6.5, Albumin 3.1 L, Globulin 3.4, Albumin/Globulin Ratio 0.9 10/20/20 17:40: Blood Type A POSITIVE, Antibody Screen NEGATIVE 10/20/20 17:40: Crossmatch See Detail 10/20/20 18:06: Urine Color Yellow, Urine Clarity Cloudy, Urine pH 8.0, Ur Specific [place] 1.010, Urine Protein 15 H, Urine Glucose (UA) Normal, Urine Ketones Negative, Urine Occult Blood 10 H, Urine Nitrite Negative, Urine Bilirubin Negative, Urine Urobilinogen Normal, Ur Leukocyte Esterase 500 H, Urine RBC 0 SEEN, Urine WBC 50-100 SEEN, Ur Squamous Epith Cells 0 SEEN, Urine Bacteria 2+, Urine Mucus 0 SEEN 10/20/20 21:21: Troponin I 0.158 H 10/20/20 22:52: POC Glucose 196 H 10/20/20 23:40: Troponin I 0.182 H 10/21/20 05:08: WBC 3.3 L, RBC 2.74 L, Hgb 8.3 L, Hct 25.8 L, MCV 94.2, MCH 30.3, MCHC 32.2, RDW Std Deviation 57.1 H, RDW Coeff of Conchis 16.7 H, Plt Count 120 L, MPV 9.6, Immature Gran % (Auto) 0.000, Neut % (Auto) 53.5, Lymph % (Auto) 34.8, [place] % (Auto) 9.3, Eos % (Auto) 1.8, Baso % (Auto) 0.6, Absolute Neuts (auto) 1.8 L, Absolute Lymphs (auto) 1.16, Nucleated RBC % 0 10/21/20 05:08: Sodium 138, Potassium 3.5, Chloride 102, Carbon Dioxide 32.0, Anion Gap 4 L, BUN 30 H, Creatinine 1.25 H, Estim Creat Clear Calc 33.04, Est GFR (MDRD) Af Amer 53 L, Est GFR (MDRD) Non-Af 44 L, BUN/Creatinine Ratio 24.0 H, Glucose 178 H, Calcium 8.4 L, Troponin I 0.244 H 10/21/20 06:43: POC Glucose 171 H 10/21/20 12:13: POC Glucose 217 H Current Medications Acetaminophen (Acetaminophen 325 Mg Tablet) 650 mg PO Q6H PRN PRN PRN Reason: Pain Score 1-10/Temp > 100.7 F Albuterol Sulfate (Albuterol 2.5 Mg/3 Ml Vial.Neb.) 2.5 mg INHALATION Q2H PRN PRN PRN Reason: SOB/WHEEZING Ascorbic Acid (Ascorbic Acid 500 Mg Tablet) 500 mg PO DAILY [facility] Last Admin: 10/21/20 08:40 Dose: 500 mg Documented by: Aspirin (Aspirin 81 Mg Tab.Chew) 81 mg PO DAILY@0800 [facility] Last Admin: 10/21/20 08:40 Dose: 81 mg Documented by: Carvedilol (Carvedilol 3.125 Mg Tablet) 3.125 mg PO BIDCM [facility] Last Admin: 10/21/20 08:40 Dose: 3.125 mg Documented by: Cholecalciferol (Cholecalciferol (Vit D3) 1,000 Unit (25mcg)) 5,000 unit PO DAILY [facility] Last Admin: 10/21/20 08:39 Dose: 5,000 unit Documented by: Clopidogrel Bisulfate (Clopidogrel Bisulfate 75 Mg Tablet) 75 mg PO DAILY [facility] Last Admin: 10/21/20 08:40 Dose: 75 mg Documented by: Dextrose (Dextrose 50%-Water 25 Gm/50 Ml Disp.Syrin) 0 gm IV X1 PRN; Protocol PRN Reason: Hypoglycemia Folic Acid (Folic Acid 1 Mg Tablet) 1 mg PO DAILY@0800 [facility] Last Admin: 10/21/20 08:39 Dose: 1 mg Documented by: Glucagon (Glucagon 1 Mg/Ml Syringe) 1 mg IM .X1 PRN PRN Reason: Hypoglycemia Ceftriaxone Sodium (Rocephin) 1 gm in 50 mls @ 100 mls/hr IV Q24@2200 [facility] Insulin Glargine (Insulin Glargine 100 Units/Ml Pen) 34 units SC DAILY [facility] Last Admin: 10/21/20 10:49 Dose: 34 units Documented by: Insulin Human Lispro (Insulin Lispro 100 Unit/Ml Insuln.Pen) 5 unit SC BREAKFAST [facility] Last Admin: 10/21/20 08:41 Dose: 5 units Documented by: Insulin Human Lispro (Insulin Lispro 100 Unit/Ml Insuln.Pen) 5 unit SC DINNER [facility] Insulin Human Lispro (Insulin Lispro 100 Unit/Ml Insuln.Pen) 5 unit SC LUNCH [facility] Last Admin: 10/21/20 12:15 Dose: 5 units Documented by: Insulin Human Lispro (Insulin Lispro 100 Unit/Ml Insuln.Pen) 0 unit SC 4X/DAYCM [facility]; Protocol Last Admin: 10/21/20 12:15 Dose: 2 u Documented by: Isosorbide Mononitrate (Isosorbide Mononitrate 30 Mg Tablet) 90 mg PO DAILY [facility] Last Admin: 10/21/20 10:48 Dose: 90 mg Documented by: Isosorbide Mononitrate (Isosorbide Mononitrate 60 Mg Tablet) 60 mg PO QHS [facility] Last Admin: 10/20/20 22:56 Dose: 60 mg Documented by: Melatonin (Melatonin 3 Mg Tablet) 3 mg PO QHS PRN PRN PRN Reason: INSOMNIA Mirabegron (Mirabegron 25 Mg Tab.Er.24h) 25 mg PO DAILY [facility] Last Admin: 10/21/20 10:48 Dose: 25 mg Documented by: Multivitamins (Multivitamins,Therapeutic Tablet) 1 tablet PO DAILYCM [facility] Last Admin: 10/21/20 08:40 Dose: 1 tablet Documented by: Ondansetron HCl (Ondansetron 4 Mg/2 Ml Vial) 4 mg IV Q8H PRN PRN PRN Reason: NAUSEA/VOMITING Pantoprazole Sodium (Pantoprazole Sodium 40 Mg Tablet) 40 mg PO BID [facility] Last Admin: 10/21/20 08:40 Dose: 40 mg Documented by: Pravastatin Sodium (Pravastatin 80 Mg Tablet) 80 mg PO DAILY@2200 [facility] Last Admin: 10/20/20 22:56 Dose: 80 mg Documented by: Ranolazine (Ranolazine 500 Mg Tablet) 1,000 mg PO BID [facility] Last Admin: 10/21/20 10:48 Dose: 1,000 mg Documented by: Senna/Docusate Sodium (Senna/Docusate Sodium 1 Tablet) 2 tablet PO BID PRN PRN PRN Reason: Constipation Sodium Chloride (0.9% Saline Lock 10 Ml Syringe) 10 - 40 ml IV UD PRN PRN Reason: SALINE FLUSH Tramadol HCl (Tramadol 50 Mg Tablet) 50 mg PO Q6H PRN PRN PRN Reason: Pain 1-10 or Fever STROKE Vital Signs/Narrative: Vital Signs Temp Pulse Resp BP Pulse Ox 10/21/20 16:21 66 10/21/20 15:02 36.8 C 66 14 101/48 L 97 Assessment/Plan Patient seen and examined independently. Data reviewed. I agree with the above note by the physician surgical first assistant. 1. Anemia improved after 2 units. No additional units necessary. Monitor. 2. Abnormal UA on CTX currently. Will change to nitrofurantoin 3. Dispo: CM to facilitate. Either home v Assisted living. Anticipate DC 10/21 Inpatient E&M: 59538 Subs Hosp L2
[2020-10-21 17:46] LABS: Bedside Glucose 156 mg/dL (70-110)
[2020-10-21] MEDS: Nitrofurantoin Macrocrystals 100 MG Capsule PO (20:59)
[2020-10-21] MEDS: Pravastatin 80 MG Tablet PO (21:00)
[2020-10-21 21:56] LABS: Bedside Glucose 136 mg/dL (70-110)
[2020-10-22 02:55] VITALS: BP 99/40; PULSE 60; RESP 14; TEMP 37.1; O2SAT 95; O2SAT 96
[2020-10-22 03:00] VITALS: PULSE 64
[2020-10-22 06:44] VITALS: PULSE 59
[2020-10-22 07:34] VITALS: O2SAT 94
--- NOTE | 2020-10-22 07:38 | CASEMGMT ---
SUAD did talk with Myriamlai from [facility] again. She said [facility] has not given them a move in date yet. She also said they were going to have to get volunteers from a anglic[employer] to help move patient so it wasn't going to be a quick thing. She is not sure how long [facility] will hold patient's room if she is at the SNF when her room opens up. SUAD will call [facility] to see if they can give more insight. Karina SERRATO PARTS CASTING MACHINE OPERATOR
[2020-10-22 08:02] VITALS: BP 118/57; PULSE 60; RESP 15; TEMP 36.9; O2SAT 99
[2020-10-22] MEDS: Folic Acid 1 MG Tablet PO (08:09)
[2020-10-22] MEDS: Ranolazine 500 MG Tablet 1000 MG PO (08:09)
[2020-10-22] MEDS: Multivitamins,Therapeutic Tablet 1 TABLET PO (08:09)
[2020-10-22] MEDS: Clopidogrel Bisulfate 75 MG Tablet PO (08:09)
[2020-10-22] MEDS: Aspirin 81 MG TAB.CHEW PO (08:10)
[2020-10-22] MEDS: Pantoprazole Sodium 40 MG Tablet PO (08:10)
[2020-10-22] MEDS: Carvedilol 3.125 MG TABLET PO (08:10)
[2020-10-22] MEDS: Ascorbic Acid 500 MG Tablet PO (08:11)
[2020-10-22] MEDS: Insulin Lispro 100 UNIT/ML INSULN.PEN SC ×3 (08:14→12:26)
[2020-10-22 08:16] LABS: Bedside Glucose 127 mg/dL (70-110)
--- NOTE | 2020-10-22 09:38 | CASEMGMT ---
SW spoke with patient again this am about going to a intermediate. SW told her SW did verify that she cannot go to [facility] at discharge as they have not called with her move in date. SW also told her that per [place] they have to coordinate with pentec[employer] volunteers to move her stuff. SUAD told her it is being strongly recommended that she go to a shelter facility short term for rehab. Then maybe her [place] apartment would open and she will be stronger to move in. She insists on going home at discharge. SUAD notified physician. Karina SERRATO MSW
[2020-10-22] MEDS: Isosorbide Mononitrate 30 MG Tablet 90 MG PO (10:26)
[2020-10-22] MEDS: Mirabegron 25 MG TAB.ER.24H PO (10:26)
[2020-10-22] MEDS: Nitrofurantoin Macrocrystals 100 MG Capsule PO (10:26)
[2020-10-22 11:36] LABS: Bedside Glucose 222 mg/dL (70-110)
--- NOTE | 2020-10-22 11:45 | CASEMGMT ---
Addendum entered by Karina Simmons 10/22/20 12:43: SUAD notified patient that because she already has [facility] for nursing her therapy has to be through them also. SUAD told her they would see her on Sunday. SUAD notified racing secretary that patient needs a cab ride home. Karina SERRATO LANGUAGE TEACHER Original Note: Patient did better with therapy today and she wants to go home with home health. She currently has group home with [facility] so her PT/OT will have to be through them. SUAD called with referral and they can accept patient. SUAD faxed order and d/c instructions to [facility]. SUAD also called [facility] and spoke with Missy on the coverage line. SUAD notified her of discharge and plan. Patient also needs a ride home via cab. Plan: d/c home with [facility] group home, PT, and OT. Patient's [employer] services will also be resumed. Karina SERRATO LANGUAGE TEACHER
--- NOTE | 2020-10-22 12:00 | CASEMGMT ---
This RN CM left a message with pt's [facility] CM, Andie, to notify her that pt to be discharged today with [facility], PT/OT. Rolando TREVINO CM
--- NOTE | 2020-10-22 13:33 | PCM.DC ---
- Discharge Diagnoses Current Active Problems: Current Active and Chronic Problems (Last Reviewed 10/20/20 @ 19:[address] Reji Galindo MD) CAD (coronary artery disease) (Chronic) YOSELIN (acute kidney injury) (Acute) Acute exacerbation of CHF (congestive heart failure) (Chronic) UTI (urinary tract infection) (Acute) Generalized weakness (Acute) Atherosclerotic heart disease [place] coronary artery w/angina pectoris (Chronic) History of coronary artery stent placement (Chronic 08/20/18) PCI of ostial and mid LCx ISR with laser atherectomy, balloon angioplasty 08/20/18 PTCA and laser atherectomy-Prox LCx 02/03/2018; POBA-ostial/prox LCx 11/09/2017; VSG-KPN-Qjlv LCx w/ 2.5 x 20 mm Synergy Stent, RAYMON-Distal LM-into the Ostium of LAD w/ 4.0 x 16 mm Synergy Stent 07/05/2017; POBA-Ostium and Prox LCx 04/19/2017; PCI-Rotational Nishfexuexm-ZVO-FTS with a 2.75 x 38 mm Promus Premier drug eluting stent 12/15/13; RAYMON-Mid RPLB w/ 3.0 x 28 mm Cypher and Prox RPLB w/ 3.0 x 8 mm Cypher, RAYMON- Ostium RPDA w/ 2.5 x 28 mm Cypher 09/17/2007 Chronic diastolic (congestive) heart failure (Chronic) Non-rheumatic aortic stenosis (Chronic) Essential hypertension (Chronic) Hyperlipidemia (Chronic) Diabetes mellitus, type II (Chronic) Hypothyroidism (Chronic) Schizophrenia (Chronic) Anemia (Chronic) Follows with Dr Son 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) You will use the following diet at home:: Cardiac Your food should be the consistency of: Regular Your liquids should be the consistency of: Regular/Thin Discharge Activity: Return to Normal Activity Allergies/Adverse Reactions: Allergies aripiprazole [From Abilify] Allergy (Intermediate, Verified 10/20/20 17:00) it over powered me lisinopril Allergy (Intermediate, Verified 10/20/20 17:00) Unknown atorvastatin calcium [From Lipitor] Adverse Reaction (Verified 10/20/20 17:00) Unknown rosiglitazone maleate [From Avandia] Adverse Reaction (Verified 10/20/20 17:00) Other Medications to take at Discharge Aspirin [Aspirin, Baby] 81 mg PO DAILY@0800 06/30/17 Nitroglycerin [Nitrostat] 0.4 mg SL PRN PRN 06/30/17 Multivitamins,Therapeutic [Multivitamin] 1 tab PO DAILY 02/01/18 ascorbic acid (vitamin C) 500 mg tablet 500 mg PO DAILY 09/13/18 Insulin Glargine,Hum.rec.anlog [Toujeo Solostar] 34 unit SC DAILY 04/23/19 Carvedilol [Coreg] 3.125 mg PO BIDCM 06/24/19 Cholecalciferol (Vitamin D3) [Vitamin D3] 5,000 unit PO DAILY 06/24/19 Levothyroxine [Synthroid] 100 mcg PO DAILY 07/24/19 Folic Acid 1 mg PO DAILY 02/10/20 Furosemide 40 mg PO BID 02/10/20 Insulin Regular, Human [Humulin R] 5 - 10 unit SQ TIDCM 02/10/20 Acetaminophen [Tylenol Tablet] 650 mg PO Q6H PRN PRN tab 03/29/20 losartan 25 mg tablet 25 mg PO DAILY #30 tab 04/29/20 metolazone 2.5 mg tablet 2.5 mg PO WEFR tab 06/17/20 mirabegron 25 mg tablet,extended release 24 hr 25 mg PO DAILY 06/17/20 albuterol sulfate 90 mcg/actuation aerosol inhaler 2 puff INHALATION Q6H PRN 08/11/20 pravastatin 80 mg tablet 80 mg PO DAILY #90 tab 08/13/20 isosorbide mononitrate 60 mg tablet,extended release 24 hr 60 mg PO .COMPLEX #60 tab 09/03/20 spironolactone 25 mg tablet 12.5 mg PO DAILY #1 tab 09/29/20 Clopidogrel Bisulfate [Clopidogrel] 75 mg PO DAILY 10/20/20 Isosorbide Mononitrate [Isosorbide Mononitrate ER] 30 mg PO .COMPLEX 10/20/20 Pantoprazole Sodium [Protonix] 40 mg PO BID 10/20/20 Ranolazine [Ranolazine ER] 1,000 mg PO BID 10/20/20 traMADol [Ultram (G)] 50 mg PO Q6H PRN PRN 10/20/20 Nitrofurantoin Macrocrystals [Macrobid] 100 mg PO Q12 #8 capsule 10/22/20 The following prescriptions were given: Nitrofurantoin Macrocrystals [Macrobid] 100 mg PO Q12 #8 capsule Transmission Status: Pending to [facility] Primary Care Physician: Diana Cohen MD [Primary Care Provider] - Please follow up with your Primary Care Physician in: Within the next 2 weeks Test Results: Test results from this visit will be discussed in further detail at your follow-up appointment, if applicable. Please Follow Up With: Rona Osei TOWER EXCAVATOR OPERATOR, TOWER EXCAVATOR OPERATOR-C Proposed Discharge Date: 10/22/20
--- NOTE | 2020-10-22 13:35 | PCM.DC.SUM ---
<Wagner Rebolledo - Last Filed: 10/22/20 13:35> Discharge Date and Diagnosis - Problem List Patient Problems: Active and Suspected Problems (Last Reviewed 10/20/20 @ 19:[address] Reji Galindo MD) YOSELIN (acute kidney injury) (Acute) UTI (urinary tract infection) (Acute) Generalized weakness (Acute) Date of Admission: 10/20/20 Date of Discharge: 10/22/20 - Primary Discharge Diagnosis Acute Problems: Active Problems (Last Reviewed 10/20/20 @ 19:[address] Reji Galindo MD) YOSELIN (acute kidney injury) (Acute) UTI (urinary tract infection) (Acute) Generalized weakness (Acute) - Secondary Discharge Diagnosis Chronic Problems: Chronic Problems (Last Reviewed 10/20/20 @ 19:[address] 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) History of coronary artery stent placement (Chronic 08/20/18) PCI of ostial and mid LCx ISR with laser atherectomy, balloon angioplasty 08/20/18 PTCA and laser atherectomy-Prox LCx 02/03/2018; POBA-ostial/prox LCx 11/09/2017; HMG-LEW-Ikhk LCx w/ 2.5 x 20 mm Synergy Stent, RAYMON-Distal LM-into the Ostium of LAD w/ 4.0 x 16 mm Synergy Stent 07/05/2017; POBA-Ostium and Prox LCx 04/19/2017; PCI-Rotational Azfsdcitwpx-FNX-KXL with a 2.75 x 38 mm Promus Premier drug eluting stent 12/15/13; RAYMON-Mid RPLB w/ 3.0 x 28 mm Cypher and Prox RPLB w/ 3.0 x 8 mm Cypher, RAYMON- Ostium RPDA w/ 2.5 x 28 mm Cypher 09/17/2007 Chronic diastolic (congestive) heart failure (Chronic) Non-rheumatic aortic stenosis (Chronic) Essential hypertension (Chronic) Hyperlipidemia (Chronic) Diabetes mellitus, type II (Chronic) Hypothyroidism (Chronic) Schizophrenia (Chronic) Anemia (Chronic) Follows with Dr Son 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) Hospital Course and Treatment Imaging Results: Clinical Impression(s) from Imaging Studies Chest X-Ray 10/20/20 17:45 IMPRESSION: 1. Bibasilar subsegmental atelectasis. at 1834 Reported and signed by: Dax Rivera MD Electronically Signed: Dax Rivera MD at 18:32 EDT Tel , Service support , Operations: None Procedures: EKG Summary of Care Provided: Patient is an 80-year-old female comfortably resting in bed, alert and oriented x3. She was admitted on 10/20/2020 for a 2-day history of tremors as well as unsteady gait. Patient also reported to have inability to perform ADLs and IADLs. Patient has no complaints at this time and reports resolution of her symptoms at admission. Denies tremors, chest pain, burning with urination. Blood work and chemistries stable. Creatinine still elevated, however is downtrending. Patient is concerned about disposition and does not want to go to jail facility. Home health was able to be organized by social work. Patient scheduled to move into assisted living within the next month. 1) Acute UTI Assessment - Abnormal UA Plan -Continue Macrobid x4 days twice daily 2) Chest pain Assessment - Troponins elevated throughout cycle - Troponins chronically elevated - EKG; NSR, left ventricular hypertrophy, prolonged QT Plan -Continue on aspirin and Plavix 3) Acute on chronic anemia Assessment - CBC unremarked - Managed outpatient with Dr. Son Plan -Continue to manage outpatient with Dr. Son 4) YOSELIN on CKD 3 Assessment - Creatinine 1.25 on 10/21/2020, trending down from admission Plan -Diuretics continued at discharge 5) DM 2 Assessment - POC glucose on 10/21/2020 Plan -Continue home insulin regimen 6) Debility Assessment - PT/OT eval recommends SNF Plan - Discharge to home with home health -Patient plans to move into assisted living within the next month 7) Chronic heart failure with preserved ejection fraction Assessment - Echocardiogram on 02/11/2020 demonstrated; EF of 55%, Diastolic dysfunction, Mild , Mitral insufficeincy, Tricuspid insufficiency - Stable - Legs are edematous bilaterally due to diuretics being held while admitted Plan - Home diuretics continued at discharge -Patient encouraged to wear compression stockings and elevate legs 8) CAD - continue Aspirin and plavix DVT prophylaxis - SCD's Patient seen by Wagner Rebolledo PA-C, under the supervision of Dr. Castillo Patient Problems: Active and Suspected Problems (Last Reviewed 10/20/20 @ 19:[address] Reji Galindo MD) YOSELIN (acute kidney injury) (Acute) UTI (urinary tract infection) (Acute) Generalized weakness (Acute) Subjective: Patient is an 80-year-old female who is comfortably resting in the chair, alert and oriented x3. Patient is in agreement about disposition. Objective: Clinical Impression(s) from Imaging Studies Chest X-Ray 10/20/20 17:45 IMPRESSION: 1. Bibasilar subsegmental atelectasis. at 1834 Reported and signed by: Dax Rivera MD Electronically Signed: Dax Rivera MD at 18:32 EDT Tel , Service support , - Physical Exam Vitals/I&O's: Vital Signs Temp Pulse Resp BP Pulse Ox 98.4 F 60 15 118/57 L 99 10/22/20 08:02 10/22/20 08:02 10/22/20 08:02 10/22/20 08:02 10/22/20 08:02 Oxygen Delivery Method Room Air Weight: 193 lb 12.581 oz Body Mass Index (BMI) 32.2 Finger Stick Blood Glucose 270 Intake and Output for Last 24 Hours 10/20/20 10/21/20 10/22/20 23:59 23:59 23:59 Intake Total 1190 / 1190 1465 / 1665 300 / 300 Output Total 250 / 250 1050 / 1700 950 / 950 Balance 940 / 940 415 / -35 -650 / -650 General: Alert, Oriented x3, Cooperative HEENT: Atraumatic, PERRLA, EOMI, Normocephalic Neck: Supple, No JVD, Negative Carotid Bruits Lungs: Clear to auscultation, Normal air movement Cardiovascular: Regular rate, No murmurs Abdomen: Bowel Sounds Present, Soft, Non Tender Extremities: Edema - Legs are edematous bilaterally Skin: No rashes, No breakdown Musculoskeletal: No Tenderness to Palpation of Joints or Extremities Neurological: Cranial nerves II-XII grossly intact Psych/Mental Status: Normal Affect, Appropriate Laboratory Results 10/21/20 17:37: POC Glucose 156 H 10/21/20 21:07: POC Glucose 136 H 10/22/20 08:08: POC Glucose 127 H 10/22/20 11:32: POC Glucose 222 H Current Medications Acetaminophen (Acetaminophen 325 Mg Tablet) 650 mg PO Q6H PRN PRN PRN Reason: Pain Score 1-10/Temp > 100.7 F Albuterol Sulfate (Albuterol 2.5 Mg/3 Ml Vial.Neb.) 2.5 mg INHALATION Q2H PRN PRN PRN Reason: SOB/WHEEZING Ascorbic Acid (Ascorbic Acid 500 Mg Tablet) 500 mg PO DAILY [facility] Last Admin: 10/22/20 08:11 Dose: 500 mg Documented by: Aspirin (Aspirin 81 Mg Tab.Chew) 81 mg PO DAILY@0800 [facility] Last Admin: 10/22/20 08:10 Dose: 81 mg Documented by: Carvedilol (Carvedilol 3.125 Mg Tablet) 3.125 mg PO BIDCM [facility] Last Admin: 10/22/20 08:10 Dose: 3.125 mg Documented by: Cholecalciferol (Cholecalciferol (Vit D3) 1,000 Unit (25mcg)) 5,000 unit PO DAILY [facility] Last Admin: 10/22/20 08:10 Dose: 5,000 unit Documented by: Clopidogrel Bisulfate (Clopidogrel Bisulfate 75 Mg Tablet) 75 mg PO DAILY [facility] Last Admin: 10/22/20 08:09 Dose: 75 mg Documented by: Dextrose (Dextrose 50%-Water 25 Gm/50 Ml Disp.Syrin) 0 gm IV X1 PRN; Protocol PRN Reason: Hypoglycemia Folic Acid (Folic Acid 1 Mg Tablet) 1 mg PO DAILY@0800 [facility] Last Admin: 10/22/20 08:09 Dose: 1 mg Documented by: Glucagon (Glucagon 1 Mg/Ml Syringe) 1 mg IM .X1 PRN PRN Reason: Hypoglycemia Insulin Glargine (Insulin Glargine 100 Units/Ml Pen) 34 units SC DAILY [facility] Last Admin: 10/22/20 10:26 Dose: 34 units Documented by: Insulin Human Lispro (Insulin Lispro 100 Unit/Ml Insuln.Pen) 5 unit SC BREAKFAST [facility] Last Admin: 10/22/20 08:14 Dose: 5 units Documented by: Insulin Human Lispro (Insulin Lispro 100 Unit/Ml Insuln.Pen) 5 unit SC DINNER [facility] Last Admin: 10/21/20 17:38 Dose: 5 units Documented by: Insulin Human Lispro (Insulin Lispro 100 Unit/Ml Insuln.Pen) 5 unit SC LUNCH [facility] Last Admin: 10/22/20 12:26 Dose: 5 units Documented by: Insulin Human Lispro (Insulin Lispro 100 Unit/Ml Insuln.Pen) 0 unit SC [facility]; Protocol Last Admin: 10/22/20 12:26 Dose: 2 u Documented by: Isosorbide Mononitrate (Isosorbide Mononitrate 30 Mg Tablet) 90 mg PO DAILY [facility] Last Admin: 10/22/20 10:26 Dose: 90 mg Documented by: Isosorbide Mononitrate (Isosorbide Mononitrate 60 Mg Tablet) 60 mg PO QHS [facility] Last Admin: 10/21/20 22:36 Dose: Not Given Documented by: Melatonin (Melatonin 3 Mg Tablet) 3 mg PO QHS PRN PRN PRN Reason: INSOMNIA Mirabegron (Mirabegron 25 Mg Tab.Er.24h) 25 mg PO DAILY [facility] Last Admin: 10/22/20 10:26 Dose: 25 mg Documented by: Multivitamins ([facility]ivitamins,Therapeutic Tablet) [facility] Admin: 10/22/20 08:09 Dose: 1 tablet Documented by: Nitrofurantoin Macrocrystals (Nitrofurantoin Macrocrystals 100 Mg Capsule) 100 mg PO BID [facility] Last Admin: 10/22/20 10:26 Dose: 100 mg Documented by: Ondansetron HCl (Ondansetron 4 Mg/2 Ml Vial) 4 mg IV Q8H PRN PRN PRN Reason: NAUSEA/VOMITING Pantoprazole Sodium (Pantoprazole Sodium 40 Mg Tablet) 40 mg PO BID [facility] Last Admin: 10/22/20 08:10 Dose: 40 mg Documented by: Pravastatin Sodium (Pravastatin 80 Mg Tablet) 80 mg PO DAILY@2200 [facility] Last Admin: 10/21/20 21:00 Dose: 80 mg Documented by: Ranolazine (Ranolazine 500 Mg Tablet) 1,000 mg PO BID [facility] Last Admin: 10/22/20 08:09 Dose: 1,000 mg Documented by: Senna/Docusate Sodium (Senna/Docusate Sodium 1 Tablet) 2 tablet PO BID PRN PRN PRN Reason: Constipation Sodium Chloride (0.9% Saline Lock 10 Ml Syringe) 10 - 40 ml IV UD PRN PRN Reason: SALINE FLUSH Tramadol HCl (Tramadol 50 Mg Tablet) 50 mg PO Q6H PRN PRN PRN Reason: Pain 1-10 or Fever Discharge Activity: Return to Normal Activity Home Medications: Medications to take at Discharge Aspirin [Aspirin, Baby] 81 mg PO DAILY@0800 06/30/17 Nitroglycerin [Nitrostat] 0.4 mg SL PRN PRN 06/30/17 Multivitamins,Therapeutic [Multivitamin] 1 tab PO DAILY 02/01/18 ascorbic acid (vitamin C) 500 mg tablet 500 mg PO DAILY 09/13/18 Insulin Glargine,Hum.rec.anlog [Toujeo Solostar] 34 unit SC DAILY 04/23/19 Carvedilol [Coreg] 3.125 mg PO BIDCM 06/24/19 Cholecalciferol (Vitamin D3) [Vitamin D3] 5,000 unit PO DAILY 06/24/19 Levothyroxine [Synthroid] 100 mcg PO DAILY 07/24/19 Folic Acid 1 mg PO DAILY 02/10/20 Furosemide 40 mg PO BID 02/10/20 Insulin Regular, Human [Humulin R] 5 - 10 unit SQ TIDCM 02/10/20 Acetaminophen [Tylenol Tablet] 650 mg PO Q6H PRN PRN tab 03/29/20 losartan 25 mg tablet 25 mg PO DAILY #30 tab 04/29/20 metolazone 2.5 mg tablet 2.5 mg PO WEFR tab 06/17/20 mirabegron 25 mg tablet,extended release 24 hr 25 mg PO DAILY 06/17/20 albuterol sulfate 90 mcg/actuation aerosol inhaler 2 puff INHALATION Q6H PRN 08/11/20 pravastatin 80 mg tablet 80 mg PO DAILY #90 tab 08/13/20 isosorbide mononitrate 60 mg tablet,extended release 24 hr 60 mg PO .COMPLEX #60 tab 09/03/20 spironolactone 25 mg tablet 12.5 mg PO DAILY #1 tab 09/29/20 Clopidogrel Bisulfate [Clopidogrel] 75 mg PO DAILY 10/20/20 Isosorbide Mononitrate [Isosorbide Mononitrate ER] 30 mg PO .COMPLEX 10/20/20 Pantoprazole Sodium [Protonix] 40 mg PO BID 10/20/20 Ranolazine [Ranolazine ER] 1,000 mg PO BID 10/20/20 traMADol [Ultram (G)] 50 mg PO Q6H PRN PRN 10/20/20 Nitrofurantoin Macrocrystals [Macrobid] 100 mg PO Q12 #8 capsule 10/22/20 Following Prescriptions Were Given to Patient: Nitrofurantoin Macrocrystals [Macrobid] 100 mg PO Q12 #8 capsule Transmission Status: Received by [facility] Primary Care Physician: Diana Cohen MD [Primary Care Provider] - Please follow up with your Primary Care Physician in: Within the next 2 weeks Please Follow Up With: Rona Osei VEHICLE DYNAMICS ENGINEER, VEHICLE DYNAMICS ENGINEER-C Disposition: Home with Home Health Minutes spent on discharge:: 35 Patient Condition:: Fair Medical Necessity - Tobacco Use Smoking Status: Never smoker Meaningful Use Info Meaningful Use Diagnoses (Choose all that apply): None applicable <Marty Castillo - Last Filed: 10/22/20 15:07> Discharge Date and Diagnosis - Primary Discharge Diagnosis Acute Problems: Active Problems (Last Reviewed 10/20/20 @ 19:[address] Reji Galindo MD) YOSELIN (acute kidney injury) (Acute) UTI (urinary tract infection) (Acute) Generalized weakness (Acute) - Secondary Discharge Diagnosis Chronic Problems: Chronic Problems (Last Reviewed 10/20/20 @ 19:[address] 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) History of coronary artery stent placement (Chronic 08/20/18) PCI of ostial and mid LCx ISR with laser atherectomy, balloon angioplasty 08/20/18 PTCA and laser atherectomy-Prox LCx 02/03/2018; POBA-ostial/prox LCx 11/09/2017; GFI-RSX-Ewgr LCx w/ 2.5 x 20 mm Synergy Stent, RAYMON-Distal LM-into the Ostium of LAD w/ 4.0 x 16 mm Synergy Stent 07/05/2017; POBA-Ostium and Prox LCx 04/19/2017; PCI-Rotational Gvedjwqnnau-PLV-KVU with a 2.75 x 38 mm Promus Premier drug eluting stent 12/15/13; RAYMON-Mid RPLB w/ 3.0 x 28 mm Cypher and Prox RPLB w/ 3.0 x 8 mm Cypher, RAYMON- Ostium RPDA w/ 2.5 x 28 mm Cypher 09/17/2007 Chronic diastolic (congestive) heart failure (Chronic) Non-rheumatic aortic stenosis (Chronic) Essential hypertension (Chronic) Hyperlipidemia (Chronic) Diabetes mellitus, type II (Chronic) Hypothyroidism (Chronic) Schizophrenia (Chronic) Anemia (Chronic) Follows with Dr Son 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) Hospital Course and Treatment Operations: None Procedures: EKG Summary of Care Provided: Patient seen and examined independently. Data reviewed. I agree with the above note by the physician assistant shift supervisor. The patient is a 80 year old F presents with weakness. Patient was anemic and transfused 2 units packed red cells. Patient had abnormal UA and was started on ceftriaxone but discharged with nitrofurantoin which she will complete for total 5 days. Patient has been very concerned about going to her assisted living. This is a process that was started prior to this admission. Patient was not interested in going to a jail facility. She had very extensive conversations with the patient but overall she did have improvement of her activity so the plan will be for the patient to go home with home health services. Patient will eventually get into her assisted living once that process has been finalized. [] - Physical Exam Vitals/I&O's: Vital Signs Temp Pulse Resp BP Pulse Ox 36.6 C 68 15 105/59 L 98 10/22/20 14:20 10/22/20 14:20 10/22/20 14:20 10/22/20 14:20 10/22/20 14:20 Oxygen Delivery Method Room Air Weight: 87.9 kg Body Mass Index (BMI) 32.2 Finger Stick Blood Glucose 270 Intake and Output for Last 24 Hours 10/20/20 10/21/20 10/22/20 23:59 23:59 23:59 Intake Total 1190 / 1190 1465 / 1665 300 / 300 Output Total 250 / 250 1050 / 1700 950 / 950 Balance 940 / 940 415 / -35 -650 / -650 General: Alert, Cooperative HEENT: Atraumatic, Normocephalic Lungs: Clear to auscultation, Normal air movement, No rhonchi, No wheeze Cardiovascular: Regular rate, Regular Rhythm, Normal S1, Normal S2, No murmurs Abdomen: Bowel Sounds Present, Soft, Non Tender, Non-Distended Extremities: Edema Laboratory Results 10/21/20 17:37: POC Glucose 156 H 10/21/20 21:07: POC Glucose 136 H 10/22/20 08:08: POC Glucose 127 H 10/22/20 11:32: POC Glucose 222 H Discharge Activity: Return to Normal Activity Disposition: Home with Home Health Minutes spent on discharge:: 35 Patient Condition:: Fair Medical Necessity - Tobacco Use Smoking Status: Never smoker Meaningful Use Info Meaningful Use Diagnoses (Choose all that apply): None applicable Inpatient E&M: 62222 Disch Hosp
--- NOTE | 2020-10-22 13:39 | CASEMGMT ---
Order to resume home health shelter and add PT/OT, H&P, D/C instructions, and med list was faxed to [facility]. Karina SERRATO BOSTON CUTTER
[2020-10-22 14:20] VITALS: BP 105/59; PULSE 68; RESP 15; TEMP 36.6; O2SAT 98
--- NOTE | 2020-10-22 14:22 | PHA.DC.MC ---
Pharmacy Service has performed discharge medication reconciliation and counseling for this patient. 1. NITROFURANTOIN 100MG PO Q12H X 4 DAYS The patient's discharge medication list was reviewed for discrepancies and discrepancies were resolved. Home Medications Aspirin [Aspirin, Baby] 81 mg PO DAILY@0800 06/30/17 Nitroglycerin [Nitrostat] 0.4 mg SL PRN PRN 06/30/17 Multivitamins,Therapeutic [Multivitamin] 1 tab PO DAILY 02/01/18 ascorbic acid (vitamin C) 500 mg tablet 500 mg PO DAILY 09/13/18 Insulin Glargine,Hum.rec.anlog [Toujeo Solostar] 34 unit SC DAILY 04/23/19 Carvedilol [Coreg] 3.125 mg PO BIDCM 06/24/19 Cholecalciferol (Vitamin D3) [Vitamin D3] 5,000 unit PO DAILY 06/24/19 Levothyroxine [Synthroid] 100 mcg PO DAILY 07/24/19 Folic Acid 1 mg PO DAILY 02/10/20 Furosemide 40 mg PO BID 02/10/20 Insulin Regular, Human [Humulin R] 5 - 10 unit SQ TIDCM 02/10/20 Acetaminophen [Tylenol Tablet] 650 mg PO Q6H PRN PRN tab 03/29/20 losartan 25 mg tablet 25 mg PO DAILY #30 tab 04/29/20 metolazone 2.5 mg tablet 2.5 mg PO WEFR tab 06/17/20 mirabegron 25 mg tablet,extended release 24 hr 25 mg PO DAILY 06/17/20 albuterol sulfate 90 mcg/actuation aerosol inhaler 2 puff INHALATION Q6H PRN 08/11/20 pravastatin 80 mg tablet 80 mg PO DAILY #90 tab 08/13/20 isosorbide mononitrate 60 mg tablet,extended release 24 hr 60 mg PO .COMPLEX #60 tab 09/03/20 spironolactone 25 mg tablet 12.5 mg PO DAILY #1 tab 09/29/20 Clopidogrel Bisulfate [Clopidogrel] 75 mg PO DAILY 10/20/20 Isosorbide Mononitrate [Isosorbide Mononitrate ER] 30 mg PO .COMPLEX 10/20/20 Pantoprazole Sodium [Protonix] 40 mg PO BID 10/20/20 Ranolazine [Ranolazine ER] 1,000 mg PO BID 10/20/20 traMADol [Ultram (G)] 50 mg PO Q6H PRN PRN 10/20/20 Nitrofurantoin Macrocrystals [Macrobid] 100 mg PO Q12 #8 capsule 10/22/20 The patient was counseled on the following discharge medications and changes in medications for homegoing were reviewed. The Reason for Use, instructions for use, and potential side effects were reviewed for all new medications. The patient's questions regarding all of their medications were answered. The patient was able to verbally demonstrate an understanding of their discharge medications.
--- NOTE | 2020-10-25 15:09 | CASEMGMT ---
BELINDA TRACEY Discharge Follow-up Phone Call: MARLYN: Darleen Strata: 3 Call Date: 10/25/20 Discharge Date: 10/22/20 Time of Call: 1510 Duration: 1 min Admitting Diagnosis: Acute cystitis, symptomatic anemia RN ALEXY attempted to complete follow-up phone call after recent hospitalization. No answer, unable to leave message as mailbox is full. Will attempt again at later time.
== END 2020-10-22 14:25 | disposition home health service (06) | DRG 690 ==
LOC: ED 19:16 → PCU 10-21 07:15
PROVIDERS: Admitting Provider Hospitalist; Emergency Provider Emergency Medicine; PCP Internal Medicine
DX: N39.0 Urinary tract infection, site not specified (principal); D61.818 Other pancytopenia; F20.9 Schizophrenia, unspecified; N17.9 Acute kidney failure, unspecified; I13.0 Hypertensive heart and chronic kidney disease with heart failure and stage 1 through stage 4 chronic kidney disease, or unspecified chronic kidney disease; I50.32 Chronic diastolic (congestive) heart failure; E11.649 Type 2 diabetes mellitus with hypoglycemia without coma; E11.21 Type 2 diabetes mellitus with diabetic nephropathy; E11.22 Type 2 diabetes mellitus with diabetic chronic kidney disease; I25.119 Atherosclerotic heart disease of native coronary artery with unspecified angina pectoris; Z79.4 Long term (current) use of insulin; N18.30 Chronic kidney disease, stage 3 unspecified; E78.5 Hyperlipidemia, unspecified; E03.9 Hypothyroidism, unspecified; K75.81 Nonalcoholic steatohepatitis (NASH); Z68.32 Body mass index [BMI] 32.0-32.9, adult; E66.9 Obesity, unspecified; I25.2 Old myocardial infarction; Z95.5 Presence of coronary angioplasty implant and graft; Z79.82 Long term (current) use of aspirin; Z79.899 Other long term (current) drug therapy
CPT/HCPCS: 36415; 36430; 71045; 80048; 80053; 81001; 82962; 84484; 85025; 86850; 86900; 86901; 86920; 93005; 96361; 96365; 97162; 97166; 97530; 99218; 99285; J7030; J7040; J7050; P9016; A4216; G0378

== ENCOUNTER 2020-11-13 17:52 | Observation (INO) | payer MEDICARE, MEDICAID, SELFPAY ==
[2020-10-20 16:58] VITALS: BMI 32.2
[2020-11-13 17:55] VITALS: BP 125/54; PULSE 61; RESP 16; TEMP 36.6; O2SAT 99; BMI 30.2
--- NOTE | 2020-11-13 18:12 | EKG12_ITS ---
Test Reason : DYSRYTHMIA Blood Pressure : / mmHG Vent. Rate : 066 BPM Atrial Rate : 061 BPM P-R Int : 000 ms QRS Dur : 102 ms QT Int : 486 ms P-R-T Axes : 000 -30 -21 degrees QTc Int : 509 ms Normal sinus rhythm Left axis deviation Moderate voltage criteria for LVH, may be normal variant ST & T wave abnormality, consider inferior ischemia Abnormal ECG Confirmed by SILVINA CHEW, NILSON ([id number]), editor sound LAURIE MCCLELLAND ([id number]) on 11/17/2020 10:53:34 AM Referred By: JANE Confirmed By:NILSON COOL MD
--- NOTE | 2020-11-13 18:12 | CT_ITS ---
STUDY: CT BRAIN WITHOUT CONTRAST REASON FOR EXAM: Female, 80 years old. head trauma RADIATION DOSAGE (If Supplied By Facility): CTDIvol = ( 44.99 ) mGy, DLP = ( 829.85 ) mGycm TECHNIQUE: Transaxial CT imaging of the brain was performed without administration of intravenous contrast material. Individualized dose optimization techniques were used for this CT. COMPARISON: 08/17/2020 FINDINGS: Normal soft tissue structures. Normal calvarium. There is mild cerebral atrophy with widening of the extra-axial spaces and ventricular dilatation. There are areas of decreased attenuation within the white matter tracts of the supratentorial brain, consistent with microvascular disease changes. Right basal ganglia lacunar infarction versus prominent perivascular space stable. Normal brainstem. Normal cerebellum. There is no intracranial hemorrhage. There are no findings of an acute ischemic infarction. Normal visualized paranasal sinuses. CT/Brain/Head without Contrast IMPRESSION: 1. No acute intracranial hemorrhage or mass effect. 2. Stable exam. Electronically Signed: Zen Barnett MD (Brooks) at 19:11 EDT , Service support ,
[2020-11-13 18:47] LABS: Bacteria 0 SEEN /hpf (None Seen); Mucous, Urine 0 SEEN /hpf (<or=2+); Red Blood Cells-Urine 0 SEEN /hpf (0-5); Squamous Epithelial Cells - UA 0 SEEN /hpf (5-10); White Blood Cells 0 SEEN /hpf (0-5)
[2020-11-13 18:50] LABS: Absolute Lymphocyte Count 1.22 X10^3/uL (0.83-4.51); Absolute Neutrophil Count 2.2 X10^3/uL (2.0-7.7); Basophil# 0.02 X10^3/uL; Basophil% 0.5 % (0-1); Eosinophil# 0.12 X10^3/uL; Hematocrit 31.5 % (37-47); Hemoglobin 10.4 g/dL (12.0-15.0); Lymphocyte # 1.22 X10^3/ul (4.0); Lymphocyte % 30.7 % (19-41); Mean Corpuscular Hgb 31.2 pg (27.0-32.0); Mean Corpuscular Volume 94.6 fL (81-99); Mean Platelet Vol. 9.8 fl (6.2-12.0); Monocyte# 0.38 X10^3/uL; Monocyte% 9.6 % (0-10); NRBC Flagged by Analyzer 0 % (0-5); Neutrophil # 2.22 X10^3/uL (2.7-7.7); Neutrophil % 55.9 % (47-70); Platelet Count 149 K/mm3 (150-450); RBC Distribution Width CV 15.6 % (11.6-14.6); RBC Distribution Width SD 54.4 fl (35.1-43.9); Red Blood Count 3.33 M/mm3 (4.2-5.4)
[2020-11-13 18:50] LABS: Color, Urine Yellow (Yellow); Glucose, Dipstick Normal (Normal); Ketone-Dipstick Negative (Negative); Leukocyte Esterase-Dipstick Negative /ul (Negative); Nitrite-Dipstick Negative (Negative); Occult Blood-Urine Negative /ul (Negative); Protein-Dipstick Negative (Negative); Urine Bilirubin Dipstick Negative (Negative); Urine Clarity Clear (Clear); Urine Urobilinogen Normal (Normal); Urine pH 6.5 (5.0 - 8.0)
[2020-11-13 18:58] LABS: Hyaline Cast 0-5 SEEN /lpf (0-5)
[2020-11-13] MEDS: 0.9% Normal Saline 1,000 ML 150 ML IV (19:00)
[2020-11-13 19:07] LABS: Anion Gap 8 (5-15); BUN 33 mg/dL (7-18); BUN/Creat Ratio 21.6 RATIO (10-20); Chloride 96 mmol/L (98-107); Creatinine, Serum 1.53 mg/dL (0.55-1.02); EST Glomerular Filtration Rate 35 mL/min (>60); Est Glom Filt Rate - Afr Amer 42 mL/min (>60); Glucose 161 mg/dL (74-106); Potassium 3.5 mmol/L (3.5-5.1); Sodium Level 138 mmol/L (136-145)
[2020-11-13 19:22] VITALS: BP 124/54; PULSE 67; RESP 16; O2SAT 97
--- NOTE | 2020-11-13 19:40 | ED.DCSUM_ITS ---
- ER Visit Summary Date of Service: 11/13/20 Chief Complaint: [Fall] History of Present Illness: The patient is a 80 F [presents to the emergency department via EMS from assisted living facility. Patient states that her knees got weak and she fell and she hit her head. She denies loss of consciousness. Patient had to call for help so they could help her get up because she could not. Patient normally walks with a Rollator and also has a wheelchair that she sometimes uses. Patient denies neck pain, chest pain, abdominal pain. Patient states that she is nauseated and has been for the last 3 months. Patient states that her speech is different since she is lost her upper dentures and is scheduled to be seen to have those replaced. She denies any focal weakness at this time. She denies visual changes. Patient has history of coronary artery disease, CHF, hypertension, high cholesterol, hypothyroidism, and schizophrenia.] Patient states that she has fallen 3 times in the last 3 months. Physical Examination: [HEENT-PERRLA, EOMI. Cranial nerves II through XII grossly intact. TMs clear. Mucous membranes moist. No adenopathy. External evidence of trauma to her head. No C-spine tenderness on palpation. Cardiovascular-regular rate and rhythm without murmur or ectopy Lungs-clear to auscultation, chest wall stable without crepitus or subcu emphysema Abdomen-normoactive bowel sounds, soft, nontender, no rebound or rigidity, no peritoneal signs. Neuro exam-no focal deficits noted. Patient speech slightly garbled due to the fact that she does not have upper dentures. No facial droop noted. NIH stroke scale 0. Extremities-intact ?4, normal range of motion, normal pulses, atraumatic] Test Results: [EKG obtained arrival shows sinus rhythm with a ventricular rate of [address] changes. CBC with differential showed a white count 4.0, hemoglobin 10, hematocrit 31, plates 149. Chemistries unremarkable. BUN 33 and creatinine 1.53. Urinalysis normal. Troponin was 0.16 and she is noted to chronically have a slightly elevated troponin. CT scan of the brain without contrast showed no acute injury.] Emergency Department Course and Treatment: [The line established on arrival. Discussed results with patient. Patient is feeling too weak to go back to the assisted living facility and is concerned that she will be able to care for herself there.] Treatment Plan: [Admit] Disposition: [Admit] Impression: [Mechanical fall Closed head injury Generalized weakness] This note was generated with [employer] dictation software. It may contain incorrect words, spelling, and punctuation that were not noted in review of the chart prior to signing ED Disposition - Plan for ED Patient: Referrals: Diana Cohen MD [Primary Care Provider] -
[2020-11-13 20:17] VITALS: BP 108/47; PULSE 72; RESP 12; TEMP 36.7; O2SAT 97
--- NOTE | 2020-11-13 20:45 | HP.PCM_ITS ---
History of Present Illness Date of Admission: 11/13/20 Chief Complaint: Fall The patient is a 80 year old F with a PMH as below who presents from assisted living after a fall. She said that she try to get up and had significant weakness and fell and hit her head. She denies any loss of consciousness. She called for help and was brought in by EMS for evaluation. In the ER she had a CT of her brain which did not demonstrate a bleed. She says that she has been getting weaker over the last several months is also been having issues with nausea for the last 3 months as well. She denies any focal weakness in the ER and lab work is unremarkable she is chronically anemic and her hemoglobin is 10.4. Her creatinine is close to baseline and her troponin is chronically elevated and therefore is also currently at her baseline. UA was unremarkable for UTI, shows no any signs of infection. Past Medical History Past Medical History (Chronic Problems): Chronic Problems (Last Reviewed 10/20/20 @ 19:[address] Reji Galindo MD) CAD (coronary artery disease) (Chronic) Acute exacerbation of CHF (congestive heart failure) (Chronic) Atherosclerotic heart disease [place] coronary artery w/angina pectoris (Chronic) History of coronary artery stent placement (Chronic 08/20/18) PCI of ostial and mid LCx ISR with laser atherectomy, balloon angioplasty 08/20/18 PTCA and laser atherectomy-Prox LCx 02/03/2018; POBA-ostial/prox LCx 11/09/2017; TVW-MJC-Clzi LCx w/ 2.5 x 20 mm Synergy Stent, RAYMON-Distal LM-into the Ostium of LAD w/ 4.0 x 16 mm Synergy Stent 07/05/2017; POBA-Ostium and Prox LCx 04/19/2017; PCI-Rotational Ynfwfelqmbk-BIA-XMA with a 2.75 x 38 mm Promus Premier drug eluting stent 12/15/13; RAYMON-Mid RPLB w/ 3.0 x 28 mm Cypher and Prox RPLB w/ 3.0 x 8 mm Cypher, RAYMON- Ostium RPDA w/ 2.5 x 28 mm Cypher 09/17/2007 Chronic diastolic (congestive) heart failure (Chronic) Non-rheumatic aortic stenosis (Chronic) Essential hypertension (Chronic) Hyperlipidemia (Chronic) Diabetes mellitus, type II (Chronic) Hypothyroidism (Chronic) Schizophrenia (Chronic) Anemia (Chronic) Follows with Dr Son 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) Medical History: Medical History (Last Reviewed 10/20/20 @ 19:[address] Reji Galindo MD) Atherosclerotic heart disease [place] coronary artery w/angina pectoris (Chronic) I25.119 History of non-ST elevation myocardial infarction (NSTEMI) (Resolved) Onset Date: 03/26/20 I25.2 08/16/2018, 06/2019, 07/25/2019, 02/10/2020 Chronic diastolic (congestive) heart failure (Chronic) I50.32 Non-rheumatic aortic stenosis (Chronic) I35.0 Essential hypertension (Chronic) I10 Hyperlipidemia (Chronic) E78.5 Diabetes mellitus, type II (Chronic) E11.9 Hypothyroidism (Chronic) E03.9 Schizophrenia (Chronic) F20.9 Anemia (Chronic) D64.[address] Son 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) K75.81, K74.60 GI bleed (Resolved) Onset Date: 05/07/20 K92.2 Obesity (BMI 30.0-34.9) E66.9 Pancytopenia D61.818 Thrombocytopenia D69.6 Acute respiratory failure with hypoxia J96.01 Acute respiratory failure with hypoxia and hypercapnia J96.01, J96.02 Lactic acidosis E87.2 Postoperative haemorrhage Mitral valve insufficiency (Inactive) I34.0 NSTEMI (non-ST elevated myocardial infarction) (Inactive) I21.4 Non-rheumatic mitral regurgitation (Inactive) I34.0 Nonrheumatic tricuspid valve regurgitation (Inactive) I36.1 Tricuspid valve insufficiency (Inactive) I07.1 Allergies aripiprazole [From Abilify] Allergy (Intermediate, Verified 11/13/20 17:53) it over powered me lisinopril Allergy (Intermediate, Verified 11/13/20 17:53) Unknown atorvastatin calcium [From Lipitor] Adverse Reaction (Verified 11/13/20 17:53) Unknown rosiglitazone maleate [From Avandia] Adverse Reaction (Verified 11/13/20 17:53) Other Home Medications: Ambulatory Orders Medication Instructions Recorded Aspirin [Aspirin, Baby] 81 mg PO DAILY@0800 06/30/17 Nitroglycerin [Nitrostat] 0.4 mg SL PRN PRN 06/30/17 Multivitamins,Therapeutic 1 tab PO DAILY 02/01/18 [Multivitamin] ascorbic acid (vitamin C) 500 mg 500 mg PO DAILY 09/13/18 tablet Insulin Glargine,Hum.rec.anlog 34 unit SC DAILY 04/23/19 [Toujechantelle Solostar] Carvedilol [Coreg] 3.125 mg PO BIDCM 06/24/19 Cholecalciferol (Vitamin D3) 5,000 unit PO DAILY 06/24/19 [Vitamin D3] Levothyroxine [Synthroid] 100 mcg PO DAILY 07/24/19 Folic Acid 1 mg PO DAILY 02/10/20 Furosemide 40 mg PO BID 02/10/20 Insulin Regular, Human [Humulin R] 5 - 10 unit SQ TIDCM 02/10/20 Acetaminophen [Tylenol Tablet] 650 mg PO Q6H PRN PRN tab 03/29/20 losartan 25 mg tablet 25 mg PO DAILY #30 tab 04/29/20 metolazone 2.5 mg tablet 2.5 mg PO WEFR tab 06/17/20 mirabegron 25 mg tablet,extended 25 mg PO DAILY 06/17/20 release 24 hr albuterol sulfate 90 mcg/actuation 2 puff INHALATION Q6H PRN 08/11/20 aerosol inhaler pravastatin 80 mg tablet 80 mg PO DAILY #90 tab 08/13/20 Clopidogrel Bisulfate [Clopidogrel] 75 mg PO DAILY 10/20/20 Isosorbide Mononitrate [Isosorbide 90 mg PO DAILY 10/20/20 Mononitrate ER] Pantoprazole Sodium [Protonix] 40 mg PO DAILY 10/20/20 Ranolazine [Ranolazine ER] 1,000 mg PO BID 10/20/20 Haloperidol [Haldol] 1 mg PO BID PRN 11/13/20 Potassium Citrate [Potassium 20 meq PO DAILY 11/13/20 Citrate ER] Spironolactone 12.5 mg PO QODAY 11/13/20 Surgical History: Surgical History (Last Reviewed 10/20/20 @ 19:[address] Reji Galindo MD) History of coronary artery stent placement (Chronic) Onset Date: 08/20/18 Z95.5 PCI of ostial and mid LCx ISR with laser atherectomy, balloon angioplasty 08/20/18 PTCA and laser atherectomy-Prox LCx 02/03/2018; POBA-ostial/prox LCx 11/09/2017; EOL-CNA-Whgo LCx w/ 2.5 x 20 mm Synergy Stent, RAYMON-Distal LM-into the Ostium of LAD w/ 4.0 x 16 mm Synergy Stent 07/05/2017; POBA-Ostium and Prox LCx 04/19/2017; PCI-Rotational Vbjarkpocca-WJO-OZK with a 2.75 x 38 mm Promus Premier drug eluting stent 12/15/13; RAYMON-Mid RPLB w/ 3.0 x 28 mm Cypher and Prox RPLB w/ 3.0 x 8 mm Cypher, RAYMON- Ostium RPDA w/ 2.5 x 28 mm Cypher 09/17/2007 History of appendectomy Z90.49 History of cholecystectomy Z90.49 History of colonoscopy Onset Date: 04/2020 Z98.890 History of esophagogastroduodenoscopy (EGD) Onset Date: 04/2020 Z98.890 History of left heart catheterization Onset Date: 06/25/19 Z98.890 History of tonsillectomy and adenoidectomy Z98.890 History of spinal fusion (Inactive) Z98.1 anterior Surgical History: angioplasty, appendectomy, cholecystectomy, tonsillectomy, - - Spinal fusion Psychiatric History: No pertinent psych hx [employer] History: No pertinent [employer] history Smoking Status: Former smoker Tobacco Use: Cigarettes Alcohol: None Drugs: None - *Family History Maternal Family History: Family History (Last Reviewed 10/20/20 @ 19:[address] Reji Galindo MD) Mother CAD (coronary artery disease) Father CAD (coronary artery disease) History Items: Heart Disease, - Paternal Family History: Family History (Last Reviewed 10/20/20 @ 19:[address] Reji Galindo MD) Mother CAD (coronary artery disease) Father CAD (coronary artery disease) History Items: Heart Disease Review of Systems Constitutional: Reports: Weakness. Denies: Chills, Fever, Weight Change HEENT: Reports: Head Aches. Denies: Sinus Congestion, Sinus Drainage Cardiovascular: Denies: Chest Pain, Palpitations Respiratory: Denies: Cough, Shortness of breath at rest, Sputum production Gastrointestinal: Reports: Nausea. Denies: Abdominal Pain, Vomiting Genitourinary: Denies: Dysuria Musculoskeletal: Denies: Joint Pain, Joint Tenderness Skin: Denies: Rash, Wounds Neurological: Denies: Numbness, Tingling, Focal weakness Psychiatric: Denies: Anxiety, Depression Hematologic/ Lymphatic: Denies: Easy Bruising, Easy Bleeding VTE Information - Inpt Only VTE Present on Admission: No - Physical Exam Vitals/I&O's: Vital Signs Temp Pulse Resp BP Pulse Ox 97.8 F 67 16 124/54 H 97 11/13/20 17:55 11/13/20 19:22 11/13/20 19:22 11/13/20 19:22 11/13/20 19:22 Oxygen Delivery Method Room Air Weight: 186 lb 15.232 oz Body Mass Index (BMI) 30.2 Finger Stick Blood Glucose 270 General: Alert, Oriented x3, Cooperative, No apparent distress HEENT: Atraumatic, PERRLA, EOMI, Normocephalic Oral: Moist Mucosa Neck: Supple, No JVD Lungs: Clear to auscultation, Normal air movement, No rhonchi, No wheeze, No rales, Diminished Cardiovascular: Regular rate, Regular Rhythm, Normal S1, Normal S2, No murmurs Abdomen: Soft, Non Tender, Non-Distended, No Hepato-splenomegaly Extremities: No edema, Capillary Refill Less than 3 Seconds Skin: No rashes, No breakdown Neurological: Neuro grossly intact, Sensory exam intact to light touch and pain Psych/Mental Status: Normal Affect, Appropriate Laboratory Results 11/13/20 18:15: WBC 4.0 L, RBC 3.33 L, Hgb 10.4 L, Hct 31.5 L, MCV 94.6, MCH 31.2, MCHC 33.0, RDW Std Deviation 54.4 H, RDW Coeff of Conchis 15.6 H, Plt Count 149 L, MPV 9.8, Immature Gran % (Auto) 0.300, Neut % (Auto) 55.9, Lymph % (Auto) 30.7, [place] % (Auto) 9.6, Eos % (Auto) 3.0, Baso % (Auto) 0.5, Absolute Neuts (auto) 2.2, Absolute Lymphs (auto) 1.22, Nucleated RBC % 0 11/13/20 18:15: Sodium 138, Potassium 3.5, Chloride 96 L, Carbon Dioxide 34.0 H, Anion Gap 8, BUN 33 H, Creatinine 1.53 H, Estim Creat Clear Calc 27.00, Est GFR (MDRD) Af Amer 42 L, Est GFR (MDRD) Non-Af 35 L, BUN/Creatinine Ratio 21.6 H, Glucose 161 H, Calcium 10.0, Troponin I 0.160 H 11/13/20 18:30: Urine Color Yellow, Urine Clarity Clear, Urine pH 6.5, Ur Specific [place] 1.010, Urine Protein Negative, Urine Glucose (UA) Normal, Urine Ketones Negative, Urine Occult Blood Negative, Urine Nitrite Negative, Urine Bilirubin Negative, Urine Urobilinogen Normal, Ur Leukocyte Esterase Negative, Urine RBC 0 SEEN, Urine WBC 0 SEEN, Ur Squamous Epith Cells 0 SEEN, Urine Bacteria 0 SEEN, Hyaline Casts 0-5 SEEN, Urine Mucus 0 SEEN Current Medications Sodium Chloride () 1,000 mls @ 150 mls/hr IV .[id number] GE[place]ES Last Admin: 11/13/20 19:00 Dose: 150 mls/hr Documented by: Assessment/Plan All Active Problems (Last Reviewed 10/20/20 @ 19:[address] Reji Galindo MD) Generalized weakness (Resolved) Hypokalemia (Resolved) Vomiting (Resolved) YOSELIN (acute kidney injury) (Acute) UTI (urinary tract infection) (Acute) Generalized weakness (Acute) History of non-ST elevation myocardial infarction (NSTEMI) (Resolved 03/26/20) GI bleed (Resolved 05/07/20) 1. Generalized weakness with inability to complete ADLs status post mechanical fall -We will have her evaluated by PT/OT -Consult to case management for possible placement -CT of the brain was unremarkable for head bleed, will continue to monitor her mental status 2. CAD status post stent/HTN/HLD/mild pulmonary hypertension -Blood pressure and vital signs are currently stable -We will continue with her home blood pressure medications -Continue with her aspirin and Plavix -Continue with her Lasix, Ranexa, Aldactone 3. IDDM 2 -We will continue with 5 scale insulin and monitor her blood sugars with Accu- Cheks AC at bedtime -We will make insulin adjustments as necessary 4. Hypothyroidism -Stable -Continue with Synthroid 5. GERD -Stable -Continue with PPI DVT: Heparin OBSV E&M: 71317 Initial observation care L3
[2020-11-13 21:00] VITALS: BP 136/53; PULSE 75; RESP 20; TEMP 36.5; O2SAT 99
--- NOTE | 2020-11-13 21:17 | NURSING ---
This RN called [facility] and spoke with Maureen the aid on for the night, per aid there is not a nurse there until the morning. This RN requesting code status records. Maureen stated she would leave a note for AM Nurse, number left for return phone call.
[2020-11-13 21:40] VITALS: BMI 29.5
[2020-11-13 21:42] VITALS: BMI 29.6
[2020-11-13] MEDS: Heparin Injection (Vial) 5,000 UNIT/ML VIAL 5000 UNIT SC (22:20)
[2020-11-13] MEDS: Insulin Lispro 100 UNIT/ML INSULN.PEN SC (22:20)
[2020-11-13] MEDS: Pravastatin 80 MG Tablet PO (22:21)
[2020-11-13] MEDS: Ranolazine 500 MG Tablet 1000 MG PO (22:21)
[2020-11-14 01:00] LABS: Bedside Glucose 157 mg/dL (70-110)
[2020-11-14 03:00] VITALS: BP 118/55; PULSE 60; RESP 16; TEMP 36.2; O2SAT 99
[2020-11-14] MEDS: Heparin Injection (Vial) 5,000 UNIT/ML VIAL 5000 UNIT SC ×3 (06:00→21:08)
[2020-11-14] MEDS: Isosorbide Mononitrate 30 MG Tablet PO (06:00)
[2020-11-14] MEDS: Isosorbide Mononitrate 60 MG Tablet PO (06:00)
[2020-11-14] MEDS: Levothyroxine 100 MCG Tablet PO (06:00)
[2020-11-14 06:25] LABS: Absolute Lymphocyte Count 1.56 X10^3/uL (0.83-4.51); Absolute Neutrophil Count 1.7 X10^3/uL (2.0-7.7); Basophil# 0.02 X10^3/uL; Basophil% 0.5 % (0-1); Eosinophils% 2.7 % (0-5); Hematocrit 30.3 % (37-47); Hemoglobin 9.6 g/dL (12.0-15.0); Lymphocyte # 1.56 X10^3/ul (4.0); Lymphocyte % 41.7 % (19-41); Mean Corp Hgb Conc 31.7 g/dL (32-36); Mean Corpuscular Volume 94.7 fL (81-99); Mean Platelet Vol. 9.9 fl (6.2-12.0); Monocyte# 0.35 X10^3/uL; Monocyte% 9.4 % (0-10); NRBC Flagged by Analyzer 0 % (0-5); Neutrophil # 1.71 X10^3/uL (2.7-7.7); Neutrophil % 45.7 % (47-70); Platelet Count 136 K/mm3 (150-450); RBC Distribution Width CV 15.6 % (11.6-14.6); RBC Distribution Width SD 54.3 fl (35.1-43.9); White Blood Count 3.7 K/mm3 (4.4-11.0)
[2020-11-14 06:30] LABS: Bedside Glucose 101 mg/dL (70-110)
[2020-11-14 07:07] LABS: Anion Gap 4 (5-15); BUN 30 mg/dL (7-18); BUN/Creat Ratio 25.6 RATIO (10-20); Calcium,Total 9.4 mg/dL (8.5-10.1); Chloride 98 mmol/L (98-107); Creatinine, Serum 1.17 mg/dL (0.55-1.02); EST Glomerular Filtration Rate 47 mL/min (>60); Est Glom Filt Rate - Afr Amer 57 mL/min (>60); Glucose 102 mg/dL (74-106); Potassium 2.5 mmol/L (3.5-5.1); Sodium Level 136 mmol/L (136-145)
[2020-11-14 07:59] LABS: Magnesium 2.2 mg/dL (1.6-2.6)
[2020-11-14 08:10] VITALS: BP 114/51; PULSE 55; RESP 18; TEMP 36.4; O2SAT 95
[2020-11-14] MEDS: Potassium Chloride 10mEq/100mL 10 MEQ/100 ML IV.SOLN. 100 MEQ IV BOLUS ×4 (08:16→12:52)
[2020-11-14] MEDS: Potassium Chloride Oral Tablet 20 MEQ 60 MEQ PO (08:25)
--- NOTE | 2020-11-14 08:25 | NURSING ---
talked with the nurse at [facility], aware they have no paperwork indicating code status and states pt is a full code as far as they know. Stated the patient is fairly new to them. Nurse states she will fax over the med list.
[2020-11-14] MEDS: Carvedilol 3.125 MG TABLET PO ×2 (08:26→17:31)
[2020-11-14] MEDS: Aspirin 81 MG TAB.CHEW PO (08:26)
[2020-11-14] MEDS: Spironolactone 25 MG Tablet 12.5 MG PO (08:27)
[2020-11-14] MEDS: Losartan Potassium 25 MG Tablet PO (08:28)
[2020-11-14] MEDS: Folic Acid 1 MG Tablet PO (08:28)
[2020-11-14] MEDS: Mirabegron 25 MG TAB.ER.24H PO (08:29)
[2020-11-14] MEDS: Pantoprazole Sodium 40 MG Tablet PO (08:29)
[2020-11-14] MEDS: Clopidogrel Bisulfate 75 MG Tablet PO (08:29)
[2020-11-14] MEDS: Furosemide 40 MG Tablet PO ×2 (08:29→17:31)
[2020-11-14] MEDS: Ascorbic Acid 500 MG Tablet PO (08:30)
[2020-11-14] MEDS: Ranolazine 500 MG Tablet 1000 MG PO ×2 (08:30→21:11)
--- NOTE | 2020-11-14 08:36 | RAD_ITS ---
STUDY: X-RAY - PELVIS AND RIGHT HIP REASON FOR EXAM: Female, 80 years old. C/O R HIP PAIN TECHNIQUE: 3 views of the pelvis and hip. COMPARISON: 08/17/2020 FINDINGS: There is a non-specific bowel gas pattern. Normal visualized soft tissue structures. Normal bilateral iliac wings, sacroiliac joints and visualized sacrum. Normal bilateral superior and inferior pubic rami. Normal pubic symphysis. Normal bilateral ischial tuberosities. Decreased femoral head neck offset predisposing to cam-type femoral acetabular impingement. Normal acetabulum. There is mild articular joint space narrowing of the hip. 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 Electronically Signed: Marshal Jiménez MD at 10:20 EDT Tel , Service support ,
[2020-11-14 11:15] LABS: Bedside Glucose 279 mg/dL (70-110)
[2020-11-14] MEDS: Insulin Lispro 100 UNIT/ML INSULN.PEN SC ×3 (11:16→21:08)
--- NOTE | 2020-11-14 12:16 | PCM.PN.HOSP ---
Subjective: Patient seen and examined. She complains of tremors in her UEs. She also complains of some pain in her right hip and pelvis o/a of mechanical fall. She is admitted on account of a mechanical fall. She states she hit her head. CT of the head was negative for any bleed. Patient states that she does have recurrent falls. She recently moved to an assisted living facility and states she has fallen twice. He has otherwise remained stable. Potassium is 2.5 today. With her tremors, she is unable to tell me whether it is a resting or intentional tremor.on observation, while she was at rest, she was noted to be having tremors of her upper extremities. Vitals/I&O's: Vital Signs Temp Pulse Resp BP Pulse Ox 97.5 F L 55 L 18 114/51 L 95 11/14/20 08:10 11/14/20 08:10 11/14/20 08:10 11/14/20 08:10 11/14/20 08:10 Oxygen Delivery Method Room Air Weight: 183 lb 3.266 oz Body Mass Index (BMI) 29.5 Finger Stick Blood Glucose 270 Intake and Output for Last 24 Hours 11/12/20 11/13/20 11/14/20 23:59 23:59 23:59 Intake Total 1200 / 1200 Output Total 400 / 400 Balance 800 / 800 General: Alert, Oriented x3, Cooperative HEENT: Atraumatic, PERRLA, EOMI, Normocephalic Oral: Dry Mucosa Neck: Supple, No JVD, Negative Carotid Bruits Lungs: Clear to auscultation, Normal air movement, No rhonchi, No wheeze, No rales Cardiovascular: Regular rate, Regular Rhythm, Normal S1, Normal S2, No murmurs Abdomen: Bowel Sounds Present, Soft, Non Tender, Non-Distended, No Hepato-splenomegaly Extremities: No clubbing, No cyanosis, No edema, Capillary Refill Less than 3 Seconds Skin: No rashes, No breakdown Musculoskeletal: No Tenderness to Palpation of Joints or Extremities Lymphatic: No Cervical, Supraclavicular, or Inguinal Adenopathy Neurological: Cranial nerves II-XII grossly intact, Neuro grossly intact, Motor Exam 5/5 strength throughout, - - has both resting and intentional tremors of UEs Psych/Mental Status: Normal Affect, Appropriate, Alert and oriented to time, place, person, mood and affect Laboratory Results 11/13/20 18:15: WBC 4.0 L, RBC 3.33 L, Hgb 10.4 L, Hct 31.5 L, MCV 94.6, MCH 31.2, MCHC 33.0, RDW Std Deviation 54.4 H, RDW Coeff of Conchis 15.6 H, Plt Count 149 L, MPV 9.8, Immature Gran % (Auto) 0.300, Neut % (Auto) 55.9, Lymph % (Auto) 30.7, [place] % (Auto) 9.6, Eos % (Auto) 3.0, Baso % (Auto) 0.5, Absolute Neuts (auto) 2.2, Absolute Lymphs (auto) 1.22, Nucleated RBC % 0 11/13/20 18:15: Sodium 138, Potassium 3.5, Chloride 96 L, Carbon Dioxide 34.0 H, Anion Gap 8, BUN 33 H, Creatinine 1.53 H, Estim Creat Clear Calc 27.00, Est GFR (MDRD) Af Amer 42 L, Est GFR (MDRD) Non-Af 35 L, BUN/Creatinine Ratio 21.6 H, Glucose 161 H, Calcium 10.0, Troponin I 0.160 H 11/13/20 18:30: Urine Color Yellow, Urine Clarity Clear, Urine pH 6.5, Ur Specific [place] 1.010, Urine Protein Negative, Urine Glucose (UA) Normal, Urine Ketones Negative, Urine Occult Blood Negative, Urine Nitrite Negative, Urine Bilirubin Negative, Urine Urobilinogen Normal, Ur Leukocyte Esterase Negative, Urine RBC 0 SEEN, Urine WBC 0 SEEN, Ur Squamous Epith Cells 0 SEEN, Urine Bacteria 0 SEEN, Hyaline Casts 0-5 SEEN, Urine Mucus 0 SEEN 11/13/20 22:14: POC Glucose 157 H 11/14/20 05:40: WBC 3.7 L, RBC 3.20 L, Hgb 9.6 L, Hct 30.3 L, MCV 94.7, MCH 30.0, MCHC 31.7 L, RDW Std Deviation 54.3 H, RDW Coeff of Conchis 15.6 H, Plt Count 136 L, MPV 9.9, Immature Gran % (Auto) 0.000, Neut % (Auto) 45.7 L, Lymph % (Auto) 41.7 H, [place] % (Auto) 9.4, Eos % (Auto) 2.7, Baso % (Auto) 0.5, Absolute Neuts (auto) 1.7 L, Absolute Lymphs (auto) 1.56, Nucleated RBC % 0 11/14/20 05:40: Sodium 136, Potassium 2.5 L*, Chloride 98, Carbon Dioxide 34.0 H, Anion Gap 4 L, BUN 30 H, Creatinine 1.17 H, Estim Creat Clear Calc 35.30, Est GFR (MDRD) Af Amer 57 L, Est GFR (MDRD) Non-Af 47 L, BUN/Creatinine Ratio 25.6 H, Glucose 102, Calcium 9.4 11/14/20 05:40: Magnesium 2.2 11/14/20 06:24: POC Glucose 101 11/14/20 11:13: POC Glucose 279 H Current Medications Acetaminophen (Acetaminophen 325 Mg Tablet) 650 mg PO Q6H PRN PRN PRN Reason: Pain Score 1-10/Temp > 100.7 F Ascorbic Acid (Ascorbic Acid 500 Mg Tablet) 500 mg PO DAILY [facility] Last Admin: 11/14/20 08:30 Dose: 500 mg Documented by: Aspirin (Aspirin 81 Mg Tab.Chew) 81 mg PO DAILY@0800 [facility] Last Admin: 11/14/20 08:26 Dose: 81 mg Documented by: Calamine/Phenol (Menthol/Lanolin/Calamine/Znox 113 Gm Tube) 1 applic TOPICAL TID [facility]; Protocol Carvedilol (Carvedilol 3.125 Mg Tablet) 3.125 mg PO BIDCM [facility] Last Admin: 11/14/20 08:26 Dose: 3.125 mg Documented by: Clopidogrel Bisulfate (Clopidogrel Bisulfate 75 Mg Tablet) 75 mg PO DAILY [facility] Last Admin: 11/14/20 08:29 Dose: 75 mg Documented by: Dextrose (Dextrose 50%-Water 25 Gm/50 Ml Disp.Syrin) 0 gm IV X1 PRN; Protocol PRN Reason: Hypoglycemia Folic Acid (Folic Acid 1 Mg Tablet) 1 mg PO DAILY [facility] Last Admin: 11/14/20 08:28 Dose: 1 mg Documented by: Furosemide (Furosemide 40 Mg Tablet) 40 mg PO 1000,1800 [facility] Last Admin: 11/14/20 08:29 Dose: 40 mg Documented by: Glucagon (Glucagon 1 Mg/Ml Syringe) 1 mg IM .X1 PRN PRN Reason: Hypoglycemia Haloperidol (Haloperidol 1 Mg Tablet) 1 mg PO BID PRN PRN Reason: NAUSEA Heparin Sodium (Porcine) (Heparin Injection (Vial) 5,000 Unit/Ml Vial) 5,000 unit SC Q8 [facility] Last Admin: 11/14/20 06:00 Dose: 5,000 unit Documented by: Sodium Chloride () 250 mls @ 15 mls/hr IV .[id number] PRN PRN Reason: Saline Flush Last Admin: 11/14/20 08:20 Dose: 15 mls/hr Documented by: Sodium Chloride () 250 mls @ 15 mls/hr IV .[id number] PRN PRN Reason: Additional IVPB Infusion Insulin Human Lispro (Insulin Lispro 100 Unit/Ml Insuln.Pen) 0 unit SC ACHS [facility]; Protocol Last Admin: 11/14/20 11:16 Dose: 6 u Documented by: Isosorbide Mononitrate (Isosorbide Mononitrate 60 Mg Tablet) 60 mg PO DAILY@0600 [facility] Last Admin: 11/14/20 06:00 Dose: 60 mg Documented by: Isosorbide Mononitrate (Isosorbide Mononitrate 30 Mg Tablet) 30 mg PO DAILY@0600 [facility] Last Admin: 11/14/20 06:00 Dose: 30 mg Documented by: Levothyroxine Sodium (Levothyroxine 100 Mcg Tablet) 100 mcg PO DAILY@0600 [facility] Last Admin: 11/14/20 06:00 Dose: 100 mcg Documented by: Losartan Potassium (Losartan Potassium 25 Mg Tablet) 25 mg PO DAILY [facility] Last Admin: 11/14/20 08:28 Dose: 25 mg Documented by: Melatonin (Melatonin 3 Mg Tablet) 3 mg PO QHS PRN PRN PRN Reason: INSOMNIA Mirabegron (Mirabegron 25 Mg Tab.Er.24h) 25 mg PO DAILY [facility] Last Admin: 11/14/20 08:29 Dose: 25 mg Documented by: Nystatin (Nystatin Powder 15gm Bottle) 1 applic TOPICAL BID [facility]; Protocol Ondansetron HCl (Ondansetron 4 Mg/2 Ml Vial) 4 mg IV Q8H PRN PRN PRN Reason: NAUSEA/VOMITING Pantoprazole Sodium (Pantoprazole Sodium 40 Mg Tablet) 40 mg PO DAILY [facility] Last Admin: 11/14/20 08:29 Dose: 40 mg Documented by: Pravastatin Sodium (Pravastatin 80 Mg Tablet) 80 mg PO QHS [facility] Last Admin: 11/13/20 22:21 Dose: 80 mg Documented by: Ranolazine (Ranolazine 500 Mg Tablet) 1,000 mg PO BID [facility] Last Admin: 11/14/20 08:30 Dose: 1,000 mg Documented by: Sodium Chloride (0.9% Saline Lock 10 Ml Syringe) 10 - 40 ml IV UD PRN PRN Reason: SALINE FLUSH Spironolactone (Spironolactone 25 Mg Tablet) 12.5 mg PO QODAY [facility] Last Admin: 11/14/20 08:27 Dose: 12.5 mg Documented by: Medical Necessity - Tobacco Use Smoking Status: Former smoker Tobacco Use: Cigarettes Assessment/Plan All Active Problems (Last Reviewed 10/20/20 @ 19:[address] Reji Galindo MD) Generalized weakness (Resolved) Hypokalemia (Resolved) Vomiting (Resolved) YOSELIN (acute kidney injury) (Acute) UTI (urinary tract infection) (Acute) Generalized weakness (Acute) History of non-ST elevation myocardial infarction (NSTEMI) (Resolved 03/26/20) GI bleed (Resolved 05/07/20) #Debility due to mechanical fall says she has fallen previously in her assisted living facility CT of the brain was negative for any brain bleed xrays of the hip and pelvis done today was negative for any fracture and showed mild arthrosis likely secondary to cam type femoral acetabular impingement PT/OT on board fall precautions #Hypokalemia: Potassium is 2.5. Magnesium is 2.2. Replace potassium aggressively and trend. #CAD s/p stents: On aspirin, beta-radha and Plavix as well as statin, losartan and imdur. #Hyperlipidemia: on statin #Hypertension; on BP meds #TYpe 2 diabetes mellitus Insulin sliding scale. Accu-Cheks AC at bedtime. #Hypothyroidism: on synthroid #Tremors: Complains of tremors of her upper extremities. This appears to be present at rest but is worsened with movement of her hands. She denies any recent forgetfulness. if tremors worsen, will consult neurology as this may be due to Parkinsonism in setting of frequent falls, as well as a component of intentional tremors #Indeterminate troponin: troponin was 0.16. Troponins are always chronically elevated. Chest no chest pain. Home monitor. #GERD: PPI #DVT prophylaxis: heparin OBSV E&M: 51788 Subsequent observation care L2
[2020-11-14] MEDS: Nystatin Powder 15gm Bottle 1 APPLIC TOPICAL ×2 (12:52→21:10)
[2020-11-14 13:57] VITALS: BP 125/53; PULSE 67; RESP 18; TEMP 36.3; O2SAT 100
[2020-11-14] MEDS: Menthol/Lanolin/Calamine/Znox 113 GM Tube 1 APPLIC TOPICAL ×2 (13:58→21:08)
--- NOTE | 2020-11-14 15:26 | NURSING ---
DR KRUSE NOTIFIED OF PT UOP 100ML THIS SHIFT. NEW ORDER RECEIVED.
--- NOTE | 2020-11-14 15:50 | NURSING ---
PT'S COUSIN, CLEO ALCARAZ, CALLED IN FOR UPDATE ON PT. PER CLEO, HE IS RELAYING THIS INFO TO PT'S SONS THAT LIE OUT OF STATE.
[2020-11-14] MEDS: 0.9% Saline Lock 10 ML Syringe IV (15:58)
[2020-11-14] MEDS: 0.9% Normal Saline 1,000 ML 100 ML IV (15:58)
[2020-11-14 16:35] LABS: Bedside Glucose 414 mg/dL (70-110)
--- NOTE | 2020-11-14 17:16 | NURSING ---
PT ACCUCHECK 414. PT GIVEN 11 UNITS HUMALOG PER S/S. DR KRUSE MADE AWARE & ORDERED TO RESUME PT'S HOME DOSE OF TOUJEO. ([facility] WILL BE OUR PHARMACY EQUIVALENT)
[2020-11-14] MEDS: Pravastatin 80 MG Tablet PO (21:08)
[2020-11-14] MEDS: Acetaminophen 325 MG Tablet 650 MG PO (21:15)
[2020-11-14 21:23] VITALS: BP 106/36; PULSE 64; RESP 18; TEMP 36.6; O2SAT 100
[2020-11-14 22:21] LABS: Bedside Glucose 306 mg/dL (70-110)
[2020-11-15] VITALS (7 sets, daily range): BP systolic 94–121; BP diastolic 31–56; PULSE 61–65; RESP 16–18; TEMP 36.3–36.6; O2SAT 97–98
[2020-11-15] MEDS: Heparin Injection (Vial) 5,000 UNIT/ML VIAL 5000 UNIT SC ×3 (04:47→22:03)
[2020-11-15] MEDS: Levothyroxine 100 MCG Tablet PO (04:47)
[2020-11-15] MEDS: Isosorbide Mononitrate 30 MG Tablet PO (04:47)
[2020-11-15] MEDS: Isosorbide Mononitrate 60 MG Tablet PO (04:47)
[2020-11-15] MEDS: Menthol/Lanolin/Calamine/Znox 113 GM Tube 1 APPLIC TOPICAL ×3 (04:52→22:03)
[2020-11-15] MEDS: 0.9% Normal Saline 1,000 ML 100 ML IV (04:53)
[2020-11-15] MEDS: Acetaminophen 325 MG Tablet 650 MG PO ×3 (05:09→22:19)
[2020-11-15 05:46] LABS: Absolute Lymphocyte Count 1.18 X10^3/uL (0.83-4.51); Absolute Neutrophil Count 1.6 X10^3/uL (2.0-7.7); Basophil# 0.02 X10^3/uL; Basophil% 0.6 % (0-1); Eosinophil# 0.11 X10^3/uL; Eosinophils% 3.4 % (0-5); Hematocrit 29.5 % (37-47); Hemoglobin 9.4 g/dL (12.0-15.0); Lymphocyte # 1.18 X10^3/ul (4.0); Lymphocyte % 36.4 % (19-41); Mean Corp Hgb Conc 31.9 g/dL (32-36); Mean Corpuscular Volume 94.2 fL (81-99); Mean Platelet Vol. 9.9 fl (6.2-12.0); Monocyte# 0.31 X10^3/uL; Monocyte% 9.6 % (0-10); NRBC Flagged by Analyzer 0 % (0-5); Neutrophil # 1.61 X10^3/uL (2.7-7.7); Neutrophil % 49.7 % (47-70); Platelet Count 113 K/mm3 (150-450); RBC Distribution Width CV 15.9 % (11.6-14.6); RBC Distribution Width SD 54.3 fl (35.1-43.9); Red Blood Count 3.13 M/mm3 (4.2-5.4); White Blood Count 3.2 K/mm3 (4.4-11.0)
[2020-11-15 06:19] LABS: Anion Gap 5 (5-15); BUN 28 mg/dL (7-18); BUN/Creat Ratio 25.2 RATIO (10-20); Calcium,Total 8.9 mg/dL (8.5-10.1); Chloride 101 mmol/L (98-107); Creatinine, Serum 1.11 mg/dL (0.55-1.02); EST Glomerular Filtration Rate 50 mL/min (>60); Est Glom Filt Rate - Afr Amer 61 mL/min (>60); Estimated Creatinine Clearance 37.21 ml/min; Glucose 63 mg/dL (74-106); Potassium 3.5 mmol/L (3.5-5.1); Sodium Level 137 mmol/L (136-145)
[2020-11-15 07:00] LABS: Bedside Glucose 57 mg/dL (70-110)
[2020-11-15 07:31] LABS: Bedside Glucose 68 mg/dL (70-110)
[2020-11-15] MEDS: Clopidogrel Bisulfate 75 MG Tablet PO (08:07)
[2020-11-15] MEDS: Furosemide 40 MG Tablet PO ×2 (08:08→16:40)
[2020-11-15] MEDS: Nystatin Powder 15gm Bottle 1 APPLIC TOPICAL ×2 (08:08→22:04)
[2020-11-15] MEDS: Ranolazine 500 MG Tablet 1000 MG PO ×2 (08:08→22:05)
[2020-11-15] MEDS: Ascorbic Acid 500 MG Tablet PO (08:08)
[2020-11-15] MEDS: Folic Acid 1 MG Tablet PO (08:08)
[2020-11-15] MEDS: Pantoprazole Sodium 40 MG Tablet PO (08:08)
[2020-11-15] MEDS: Aspirin 81 MG TAB.CHEW PO (08:08)
[2020-11-15] MEDS: Mirabegron 25 MG TAB.ER.24H PO (08:08)
[2020-11-15 08:21] LABS: Bedside Glucose 71 mg/dL (70-110)
--- NOTE | 2020-11-15 08:58 | CASEMGMT ---
Social Work Note SW updated that pt has Dental Appointment today at [facility] and requests her [facility] CM Andie Rosen be notified so appointment can be changed. [phone] ext. [phone]. SUAD placed a call to pt's [facility] CM Andie Rosen and updated her on pt's admission to [facility] and that pt's Dental Appointment will need to be rescheduled. Andie states she will reschedule appointment. Joyce Ortiz GRAPHIC DESIGNER, [employer]
--- NOTE | 2020-11-15 10:13 | PN_ITS ---
Subjective: Complains of nausea. Provides a meandering history: has had nausea and chest pain when she exerts herself. This may have begun in when she was sent to [facility], back to [place], then to [place]. Has no idea what they did for her. Vitals/I&O's: Vital Signs Temp Pulse Resp BP Pulse Ox 36.3 C L 64 16 94/41 L 98 11/15/20 08:03 11/15/20 09:14 11/15/20 08:03 11/15/20 09:14 11/15/20 08:03 Oxygen Delivery Method Room Air Weight: 83.1 kg Body Mass Index (BMI) 29.5 Finger Stick Blood Glucose 270 Intake and Output for Last 24 Hours 11/13/20 11/14/20 11/15/20 23:59 23:59 23:59 Intake Total 2347 / 2547 1200 / 1200 Output Total 1850 / 2550 1150 / 1150 Balance 497 / -3 50 / 50 General: Alert, No apparent distress HEENT: Atraumatic, Normocephalic Oral: Moist Mucosa, No Gingival or Mucosal Lesions/ Ulcerations Neck: No Nodes, Thyroid Normal Size and Texture Lungs: - - bibasilar crackles. Cardiovascular: Regular rate, Regular Rhythm, Normal S1, Normal S2, No murmurs Abdomen: Bowel Sounds Present, Soft, Non Tender, Non-Distended, No Hepato- splenomegaly Extremities: No edema, No Calf Tenderness Skin: - - venous stasis dermatitis bilateral lower extemities Musculoskeletal: No Tenderness to Palpation of Joints or Extremities, No Muscle Wasting Psych/Mental Status: Normal Affect, Appropriate Laboratory Results 11/14/20 11:13: POC Glucose 279 H 11/14/20 16:31: POC Glucose 414 H 11/14/20 21:05: POC Glucose 306 H 11/15/20 05:05: WBC 3.2 L, RBC 3.13 L, Hgb 9.4 L, Hct 29.5 L, MCV 94.2, MCH 30.0, MCHC 31.9 L, RDW Std Deviation 54.3 H, RDW Coeff of Conchis 15.9 H, Plt Count 113 L, MPV 9.9, Immature Gran % (Auto) 0.300, Neut % (Auto) 49.7, Lymph % (Auto) 36.4, Pondera % (Auto) 9.6, Eos % (Auto) 3.4, Baso % (Auto) 0.6, Absolute Neuts (auto) 1.6 L, Absolute Lymphs (auto) 1.18, Nucleated RBC % 0 11/15/20 05:05: Sodium 137, Potassium 3.5, Chloride 101, Carbon Dioxide 31.0, Anion Gap 5, BUN 28 H, Creatinine 1.11 H, Estim Creat Clear Calc 37.21, Est GFR (MDRD) Af Amer 61, Est GFR (MDRD) Non-Af 50 L, BUN/Creatinine Ratio 25.2 H, G lucose 63 L, Calcium 8.9 11/15/20 06:45: POC Glucose 57 L 11/15/20 07:21: POC Glucose 68 L 11/15/20 08:01: POC Glucose 71 Current Medications Acetaminophen (Acetaminophen 325 Mg Tablet) 650 mg PO Q6H PRN PRN PRN Reason: Pain Score 1-10/Temp > 100.7 F Last Admin: 11/15/20 05:09 Dose: 650 mg Documented by: Ascorbic Acid (Ascorbic Acid 500 Mg Tablet) 500 mg PO DAILY [facility] Last Admin: 11/15/20 08:08 Dose: 500 mg Documented by: Aspirin (Aspirin 81 Mg Tab.Chew) 81 mg PO DAILY@0800 [facility] Last Admin: 11/15/20 08:08 Dose: 81 mg Documented by: Calamine/Phenol (Menthol/Lanolin/Calamine/Znox 113 Gm Tube) 1 applic TOPICAL TID [facility]; Protocol Last Admin: 11/15/20 04:52 Dose: 1 applic Documented by: Carvedilol (Carvedilol 3.125 Mg Tablet) 3.125 mg PO BIDCM [facility] Last Admin: 11/14/20 17:31 Dose: 3.125 mg Documented by: Clopidogrel Bisulfate (Clopidogrel Bisulfate 75 Mg Tablet) 75 mg PO DAILY [facility] Last Admin: 11/15/20 08:07 Dose: 75 mg Documented by: Dextrose (Dextrose 50%-Water 25 Gm/50 Ml Disp.Syrin) 0 gm IV X1 PRN; Protocol PRN Reason: Hypoglycemia Folic Acid (Folic Acid 1 Mg Tablet) 1 mg PO DAILY [facility] Last Admin: 11/15/20 08:08 Dose: 1 mg Documented by: Furosemide (Furosemide 40 Mg Tablet) 40 mg PO 1000,1800 [facility] Last Admin: 11/15/20 08:08 Dose: 40 mg Documented by: Glucagon (Glucagon 1 Mg/Ml Syringe) 1 mg IM .X1 PRN PRN Reason: Hypoglycemia Haloperidol (Haloperidol 1 Mg Tablet) 1 mg PO BID PRN PRN Reason: NAUSEA Heparin Sodium (Porcine) (Heparin Injection (Vial) 5,000 Unit/Ml Vial) 5,000 unit SC Q8 [facility] Last Admin: 11/15/20 04:47 Dose: 5,000 unit Documented by: Sodium Chloride () 250 mls @ 15 mls/hr IV .[id number] PRN PRN Reason: Saline Flush Last Infusion: 11/14/20 15:28 Dose: 0 mls/hr Documented by: Sodium Chloride () 250 mls @ 15 mls/hr IV .[id number] PRN PRN Reason: Additional IVPB Infusion Sodium Chloride () 1,000 mls @ 100 mls/hr IV .Q10H [facility] Last Admin: 11/15/20 04:53 Dose: 100 mls/hr Documented by: Insulin Glargine (Insulin Glargine 100 Units/Ml Pen) 34 units SC DAILY [facility] Last Admin: 11/14/20 18:39 Dose: 34 units Documented by: Insulin Human Lispro (Insulin Lispro 100 Unit/Ml Insuln.Pen) 0 unit SC ACHS [facility]; Protocol Last Admin: 11/15/20 06:48 Dose: Not Given Documented by: Isosorbide Mononitrate (Isosorbide Mononitrate 60 Mg Tablet) 60 mg PO DAILY@0600 [facility] Last Admin: 11/15/20 04:47 Dose: 60 mg Documented by: Isosorbide Mononitrate (Isosorbide Mononitrate 30 Mg Tablet) 30 mg PO DAILY@0600 [facility] Last Admin: 11/15/20 04:47 Dose: 30 mg Documented by: Levothyroxine Sodium (Levothyroxine 100 Mcg Tablet) 100 mcg PO DAILY@0600 [facility] Last Admin: 11/15/20 04:47 Dose: 100 mcg Documented by: Losartan Potassium (Losartan Potassium 25 Mg Tablet) 25 mg PO DAILY [facility] Last Admin: 11/14/20 08:28 Dose: 25 mg Documented by: Melatonin (Melatonin 3 Mg Tablet) 3 mg PO QHS PRN PRN PRN Reason: INSOMNIA Mirabegron (Mirabegron 25 Mg Tab.Er.24h) 25 mg PO DAILY [facility] Last Admin: 11/15/20 08:08 Dose: 25 mg Documented by: Nystatin (Nystatin Powder 15gm Bottle) 1 applic TOPICAL BID [facility]; Protocol Last Admin: 11/15/20 08:08 Dose: 1 applic Documented by: Ondansetron HCl (Ondansetron 4 Mg/2 Ml Vial) 4 mg IV Q8H PRN PRN PRN Reason: NAUSEA/VOMITING Pantoprazole Sodium (Pantoprazole Sodium 40 Mg Tablet) 40 mg PO DAILY [facility] Last Admin: 11/15/20 08:08 Dose: 40 mg Documented by: Pravastatin Sodium (Pravastatin 80 Mg Tablet) 80 mg PO QHS [facility] Last Admin: 11/14/20 21:08 Dose: 80 mg Documented by: Ranolazine (Ranolazine 500 Mg Tablet) 1,000 mg PO BID [facility] Last Admin: 11/15/20 08:08 Dose: 1,000 mg Documented by: Sodium Chloride (0.9% Saline Lock 10 Ml Syringe) 10 - 40 ml IV UD PRN PRN Reason: SALINE FLUSH Last Admin: 11/14/20 15:58 Dose: 10 ml Documented by: Spironolactone (Spironolactone 25 Mg Tablet) 12.5 mg PO QODAY [facility] Last Admin: 11/14/20 08:27 Dose: 12.5 mg Documented by: STROKE Vital Signs/Narrative: Vital Signs Temp Pulse Resp BP BP Pulse Ox 11/15/20 09:14 64 94/41 L 11/15/20 08:03 36.3 C L 62 16 100/46 L 98 Medical Necessity - Tobacco Use Smoking Status: Former smoker Tobacco Use: Cigarettes Assessment/Plan All Active Problems (Last Reviewed 10/20/20 @ 19:[address] Reji Galindo MD) Generalized weakness (Resolved) Hypokalemia (Resolved) Vomiting (Resolved) YOSELIN (acute kidney injury) (Acute) UTI (urinary tract infection) (Acute) Generalized weakness (Acute) History of non-ST elevation myocardial infarction (NSTEMI) (Resolved 03/26/20) GI bleed (Resolved 05/07/20) 1. Debility PT OT eval and treat Likely will require SNF upon discharge 2. Atypical chest pain check EKG troponin was 0.16, but chronically elevated 3. Hypokalemia improved monitor 4. Anemia stable transfuse for Hg <8 monitor 5. CAD Complicated history as per Dr. Foster's note from 08/11/2020: * She does have a complicated history of coronary artery disease with her first catheterization in 2007 where she underwent a drug-eluting stent to the right posterior descending artery and posterior lateral branch. She then subsequently underwent angioplasty and rotablation of her LAD in 2013. She then had an acute non-ST myocardial infarction in July 2017. Her troponin was elevated to 4.6. Patient was transferred to [facility] at that time where she did have angioplasty and stenting of her distal left main into the ostium of her LAD. In November 2017 she was hospitalized for a non-ST myocardial infarction. She underwent a diagnostic heart catheterization which demonstrated Left main coronary artery with mild disease. Left anterior descending artery previously stented and patent proximally and mid with severe distal disease. Ostial 95% circumflex artery stenosis and a diffusely diseased vessel. First obtuse marginal branch with ostial stenosis. Second obtuse marginal branch with diffuse disease. Dominant right coronary artery with diffuse disease. Preserved ejection fraction. She was transferred to [facility] where she underwent stenting to her ostial/proximal circumflex. * In February2017 she was admitted to [facility] for chest discomfort and was noted to have any elevated chest discomfort. She did undergo PCI, PTCA only of the proximal circumflex on 02/03/2018. She then presented back to the emergency room on February 25 with chest discomfort, she was transferred up to [facility]. She did have a mildly elevated troponin. Repeat heart catheterization did not demonstrate any new findings from a heart catheterization earlier that month. Patient was noted to have low blood pr essure so her Coreg and Norvasc were decreased. * Patient returned in August 2018 with unstable angina and repeat catheterization demonstrated a critical in-stent restenosis at the bifurcation of her left main and left circumflex. She was transferred to [facility] where she underwent successful laser atherectomy for mid left circumflex in-stent restenosis, followed by balloon angioplasty only with a 3.0 ex-15 noncompliant balloon with minimal residual stenosis. The post angioplasty films, showed a well apposed stent with a heavily calcified ostium in the ostium was smaller in diameter than the proximal left circumflex due to the calcification. * Addition to this extensive history she does have previous history of hypertension, hyperlipidemia, hypothyroidism, and schizophrenia. She has more recently developed a lower GI bleed for which she was transfused her Brilinta was changed over to Plavix. Her ejection fraction has remained preserved based on her last echocardiogram from February of this year. The anterior apex was noted to be mildly hypokinetic and she has had mild restriction of her aortic valve. She tells me that she is scheduled to have a hemoglobin check in a few days. * In February of 2020, She presented to [facility] Emergency Department for altered mental status. She was admitted with non-ST elevated myocardial infarction with peak troponin of 9. Her hemoglobin was reduced and her she received 2 units of PRBCs. She was also treated for acute hypoxic and hypercapnic respiratory failure secondary to acute on chronic CHF. She was t reated with IV Lasix and metolazone. No further cardiac intervention was recommended as she has been deemed not a candidate for further intervention. * In March of 2020, Pt was hospitalized again in March for NSTEMI and diastolic CHF exacerbation. Troponin elevation to 26. Cardiology was consulted. As per her recent cath she has significant underlying circumflex disease. Unfortunately she had a decline in her Hgb to 6.8, with thrombocytopenia, and iron deficiency. She was transfused with 2 units of blood. Brillinta was discontinued. She was started on Isosorbide and diuretics were adjusted. It was felt that she first be evaluated for GI bleed. And then consider a heart cath on a OP basis. * In april she underwent an EGD and colonoscopy. On 05/06/2020 she presented with bright red blood per rectum and was hospitalized for post operative bleed. Her Brilinta was held for 1 week and she was started on Plavix. In the past she has tried multiple different medications for her chest discomfort in addition to cardiac rehab in the ECP therapy. She was unable to tolerate ECP therapy. Cardiac rehab did not work for her due to transportation issues. She is declining increasing her Ranexa d/t hand. Continue ASA, clopidogrel, carvedilol, losartan, isosorbide 6. Chronic HFpEF EF 55% from echo on 02/11/2020 Continue carvedilol, losartan, furosemide. metolazone, ranolazine 7. DM2 uncontrolled High and low on basal and SSI 8. VTE prophylaxis: SQ heparin OBSV E&M: [id number] Subsequent observation care L2
--- NOTE | 2020-11-15 10:19 | EKG12_ITS ---
Test Reason : Blood Pressure : / mmHG Vent. Rate : 063 BPM Atrial Rate : 063 BPM P-R Int : 172 ms QRS Dur : 098 ms QT Int : 540 ms P-R-T Axes : 053 -21 069 degrees QTc Int : 552 ms Normal sinus rhythm Prolonged QT Abnormal ECG Confirmed by JUAN ALBERTO CHEW, RC ([id number]), medical transcription editor LAURIE MCCLELLAND ([id number]) on 11/18/2020 11:25:59 AM Referred By: DOTTIE Confirmed By:RC AVENDANO MD
--- NOTE | 2020-11-15 10:38 | CASEMGMT ---
BELINDA CM in to discuss ARMAS form with patient. RN CM explained ARMAS form, patient voiced understanding. Pt signed form and filed in chart. Pt provided with a copy of signed ARMAS form. Patient had no further questions or concerns at this time.
--- NOTE | 2020-11-15 11:03 | CASEMGMT ---
Addendum entered by Joyce Ortiz 11/15/20 12:00: SW did ask pt if this worker could update any family on pt's discharge plans and pt denied. Pt states she can call them to update. Original Note: Social Work Note Pt is from [facility], recommendation is SNF. SW in to speak with pt. SW introduced self and role at [facility]. Pt is alert and orientated x3. Pt states she has been at [facility] for a couple weeks. Pt states she had one fall at [facility] and then one fall previously at [facility]? Pt states she was living at home in apartments through [facility] before she went to [facility]. SW informed pt that recommendation is SNF. Patient was provided a list of SNF providers including quality and resource use data and consistent with the patient?s preferred geographic region, medical needs, and insurance network. Pt's preferred provider is [facility]. Pt asked how she was going to move all of her furniture into [facility]. SW explained that W is fully furnished for skilled, pt's furniture will remain at [facility]. SW explained referral process and that pt will need pre-cert. SW informed pt that this worker did call Andie Widdows through [facility] who cancelled pt's dental appointment and who will reschedule appointment. Pt states understanding. SW reviewed chart, pt also has ALEXY Malik through [facility]. SW placed a call to Helena at [facility] and left message updating her on pt's admission to [facility] and plan of SNF. SUAD placed a call to Tahmina at [facility] and left message regarding referral. SW faxed referral. Plan: SNF pending acceptance and pre-cert Joyce Ortiz ALBERENE STONE SETTER, PROGRAM ANALYST
[2020-11-15] MEDS: Carvedilol 3.125 MG TABLET PO ×2 (11:21→16:40)
[2020-11-15] MEDS: Losartan Potassium 25 MG Tablet PO (11:21)
[2020-11-15] MEDS: Insulin Lispro 100 UNIT/ML INSULN.PEN SC ×3 (11:21→22:04)
[2020-11-15] MEDS: Potassium Chloride Oral Tablet 20 MEQ 40 MEQ PO (11:24)
[2020-11-15 11:26] LABS: Bedside Glucose 180 mg/dL (70-110)
--- NOTE | 2020-11-15 16:01 | CASEMGMT ---
Social Work Note SW updated pt that this worker is still waiting to hear from [facility] if they are able to accept pt or not. Pt states understanding, states she doesn't have a second choice if [facility] is not able to accept pt. Plan: [facility] pending acceptance and pre-cert Joyce Ortiz FIVE PIECE EXPANSION MAKER HAND, STAFF TRAINING AND DEVELOPMENT MANAGER
[2020-11-15] MEDS: Pravastatin 80 MG Tablet PO (22:05)
[2020-11-15 23:26] LABS: Bedside Glucose 179 mg/dL (70-110)
[2020-11-15 23:26] LABS: Bedside Glucose 273 mg/dL (70-110)
[2020-11-16 04:04] VITALS: BP 106/81; PULSE 60; RESP 18; TEMP 36.4; O2SAT 98
[2020-11-16] MEDS: Menthol/Lanolin/Calamine/Znox 113 GM Tube 1 APPLIC TOPICAL ×3 (06:24→21:57)
[2020-11-16] MEDS: Heparin Injection (Vial) 5,000 UNIT/ML VIAL 5000 UNIT SC ×3 (06:25→22:02)
[2020-11-16] MEDS: Isosorbide Mononitrate 60 MG Tablet PO (06:26)
[2020-11-16] MEDS: Levothyroxine 100 MCG Tablet PO (06:26)
[2020-11-16] MEDS: Isosorbide Mononitrate 30 MG Tablet PO (06:26)
[2020-11-16] MEDS: Insulin Lispro 100 UNIT/ML INSULN.PEN SC ×4 (06:31→22:01)
[2020-11-16 06:46] LABS: Bedside Glucose 184 mg/dL (70-110)
--- NOTE | 2020-11-16 08:55 | CASEMGMT ---
Addendum entered by Joyce Ortiz 11/16/20 12:29: SW updated pt on acceptance to [facility] pending Pre-cert. Pt states understanding, states she would like this worker to call [facility] and see if staff could bring her shoes, clothes and her teeth. SW informed pt that this worker will call, cannot guarantee [facility] will deliver items but can call. Pt states I can't go over to [place] with no clothes or shoes. SW explained that pt could transport in [place]. SW placed a call to [facility] and spoke with Aby. Aby states to let them know when pt is discharged and she will have staff deliver items to [facility]. SUAD faxed updated clinicals to [facility]. Plan: [facility] pending pre-cert Addendum entered by Joyce Ortiz 11/16/20 10:25: SUAD spoke with Tahmina at [facility] stating they are able to accept pt and will submit for pre-cert. Plan: [facility] pending pre-cert Original Note: Social Work Note SW placed a call to Tahmina at [facility] and left message regarding referral. SUAD waiting for call back. Plan: [facility] pending acceptance and pre-cert Joyce Ortiz DIE REAMER, REMOTE SENSING ENGINEER
[2020-11-16 10:30] VITALS: BP 103/36; PULSE 62; RESP 18; TEMP 36.8; O2SAT 98
[2020-11-16] MEDS: Losartan Potassium 25 MG Tablet PO (10:31)
[2020-11-16] MEDS: Ascorbic Acid 500 MG Tablet PO (10:31)
[2020-11-16] MEDS: Aspirin 81 MG TAB.CHEW PO (10:31)
[2020-11-16] MEDS: Furosemide 40 MG Tablet PO (10:31)
[2020-11-16] MEDS: Mirabegron 25 MG TAB.ER.24H PO (10:31)
[2020-11-16] MEDS: Pantoprazole Sodium 40 MG Tablet PO (10:31)
[2020-11-16] MEDS: Carvedilol 3.125 MG TABLET PO ×2 (10:31→17:58)
[2020-11-16] MEDS: Folic Acid 1 MG Tablet PO (10:31)
[2020-11-16] MEDS: Ranolazine 500 MG Tablet 1000 MG PO ×2 (10:31→22:00)
[2020-11-16] MEDS: Clopidogrel Bisulfate 75 MG Tablet PO (10:31)
[2020-11-16] MEDS: Nystatin Powder 15gm Bottle 1 APPLIC TOPICAL ×2 (10:32→21:58)
[2020-11-16] MEDS: Spironolactone 25 MG Tablet 12.5 MG PO (10:32)
[2020-11-16 12:11] LABS: Bedside Glucose 241 mg/dL (70-110)
[2020-11-16] MEDS: Acetaminophen 325 MG Tablet 650 MG PO (12:47)
--- NOTE | 2020-11-16 13:55 | PN_ITS ---
Subjective: No further chest pain. Feeling well. Vitals/I&O's: Vital Signs Temp Pulse Resp BP Pulse Ox 36.8 C 62 18 103/36 L 98 11/16/20 10:30 11/16/20 10:30 11/16/20 10:30 11/16/20 10:30 11/16/20 10:30 Oxygen Delivery Method Room Air Weight: 83.2 kg Body Mass Index (BMI) 29.5 Finger Stick Blood Glucose 270 Intake and Output for Last 24 Hours 11/14/20 11/15/20 11/16/20 23:59 23:59 23:59 Intake Total 2347 / 2547 2950 / 2950 240 / 240 Output Total 1850 / 2550 1950 / 1950 175 / 175 Balance 497 / -3 1000 / 1000 65 / 65 General: Alert, No apparent distress HEENT: Atraumatic, Normocephalic Oral: Moist Mucosa, No Gingival or Mucosal Lesions/ Ulcerations Neck: No Nodes, Thyroid Normal Size and Texture Lungs: Clear to auscultation, Normal air movement, No rhonchi, No wheeze Cardiovascular: Regular rate, Regular Rhythm, Normal S1, Normal S2 Abdomen: Bowel Sounds Present, Soft, Non Tender, Non-Distended Extremities: No edema, No Calf Tenderness Laboratory Results 11/15/20 16:38: POC Glucose 179 H 11/15/20 21:56: POC Glucose 273 H 11/16/20 06:31: POC Glucose 184 H 11/16/20 12:03: POC Glucose 241 H Current Medications Acetaminophen (Acetaminophen 325 Mg Tablet) 650 mg PO Q6H PRN PRN PRN Reason: Pain Score 1-10/Temp > 100.7 F Last Admin: 11/16/20 12:47 Dose: 650 mg Documented by: Ascorbic Acid (Ascorbic Acid 500 Mg Tablet) 500 mg PO DAILY [facility] Last Admin: 11/16/20 10:31 Dose: 500 mg Documented by: Aspirin (Aspirin 81 Mg Tab.Chew) 81 mg PO DAILY@0800 [facility] Last Admin: 11/16/20 10:31 Dose: 81 mg Documented by: Calamine/Phenol (Menthol/Lanolin/Calamine/Znox 113 Gm Tube) 1 applic TOPICAL TID [facility]; Protocol Last Admin: 11/16/20 06:24 Dose: 1 applic Documented by: Carvedilol (Carvedilol 3.125 Mg Tablet) 3.125 mg PO BIDCM [facility] Last Admin: 11/16/20 10:31 Dose: 3.125 mg Documented by: Clopidogrel Bisulfate (Clopidogrel Bisulfate 75 Mg Tablet) 75 mg PO DAILY [facility] Last Admin: 11/16/20 10:31 Dose: 75 mg Documented by: Dextrose (Dextrose 50%-Water 25 Gm/50 Ml Disp.Syrin) 0 gm IV X1 PRN; Protocol PRN Reason: Hypoglycemia Folic Acid (Folic Acid 1 Mg Tablet) 1 mg PO DAILY [facility] Last Admin: 11/16/20 10:31 Dose: 1 mg Documented by: Furosemide (Furosemide 40 Mg Tablet) 40 mg PO 1000,1800 [facility] Last Admin: 11/16/20 10:31 Dose: 40 mg Documented by: Glucagon (Glucagon 1 Mg/Ml Syringe) 1 mg IM .X1 PRN PRN Reason: Hypoglycemia Haloperidol (Haloperidol 1 Mg Tablet) 1 mg PO BID PRN PRN Reason: NAUSEA Heparin Sodium (Porcine) (Heparin Injection (Vial) 5,000 Unit/Ml Vial) 5,000 unit SC Q8 [facility] Last Admin: 11/16/20 06:25 Dose: 5,000 unit Documented by: Sodium Chloride () 250 mls @ 15 mls/hr IV .[id number] PRN PRN Reason: Saline Flush Last Infusion: 11/14/20 15:28 Dose: 0 mls/hr Documented by: Sodium Chloride () 250 mls @ 15 mls/hr IV .[id number] PRN PRN Reason: Additional IVPB Infusion Insulin Glargine (Insulin Glargine 100 Units/Ml Pen) 34 units SC DAILY [facility] Last Admin: 11/16/20 11:03 Dose: 34 units Documented by: Insulin Human Lispro (Insulin Lispro 100 Unit/Ml Insuln.Pen) 0 unit SC ACHS [facility]; Protocol Last Admin: 11/16/20 12:36 Dose: 4 u Documented by: Isosorbide Mononitrate (Isosorbide Mononitrate 60 Mg Tablet) 60 mg PO DAILY@0600 [facility] Last Admin: 11/16/20 06:26 Dose: 60 mg Documented by: Isosorbide Mononitrate (Isosorbide Mononitrate 30 Mg Tablet) 30 mg PO DAILY@0600 [facility] Last Admin: 11/16/20 06:26 Dose: 30 mg Documented by: Levothyroxine Sodium (Levothyroxine 100 Mcg Tablet) 100 mcg PO DAILY@0600 [facility] Last Admin: 11/16/20 06:26 Dose: 100 mcg Documented by: Losartan Potassium (Losartan Potassium 25 Mg Tablet) 25 mg PO DAILY [facility] Last Admin: 11/16/20 10:31 Dose: 25 mg Documented by: Melatonin (Melatonin 3 Mg Tablet) 3 mg PO QHS PRN PRN PRN Reason: INSOMNIA Mirabegron (Mirabegron 25 Mg Tab.Er.24h) 25 mg PO DAILY [facility] Last Admin: 11/16/20 10:31 Dose: 25 mg Documented by: Nystatin (Nystatin Powder 15gm Bottle) 1 applic TOPICAL BID [facility]; Protocol Last Admin: 11/16/20 10:32 Dose: 1 applic Documented by: Ondansetron HCl (Ondansetron 4 Mg/2 Ml Vial) 4 mg IV Q8H PRN PRN PRN Reason: NAUSEA/VOMITING Pantoprazole Sodium (Pantoprazole Sodium 40 Mg Tablet) 40 mg PO DAILY [facility] Last Admin: 11/16/20 10:31 Dose: 40 mg Documented by: Pravastatin Sodium (Pravastatin 80 Mg Tablet) 80 mg PO QHS [facility] Last Admin: 11/15/20 22:05 Dose: 80 mg Documented by: Ranolazine (Ranolazine 500 Mg Tablet) 1,000 mg PO BID [facility] Last Admin: 11/16/20 10:31 Dose: 1,000 mg Documented by: Sodium Chloride (0.9% Saline Lock 10 Ml Syringe) 10 - 40 ml IV UD PRN PRN Reason: SALINE FLUSH Last Admin: 11/14/20 15:58 Dose: 10 ml Documented by: Spironolactone (Spironolactone 25 Mg Tablet) 12.5 mg PO QODAY [facility] Last Admin: 11/16/20 10:32 Dose: 12.5 mg Documented by: STROKE Vital Signs/Narrative: Vital Signs Temp Pulse Resp BP Pulse Ox 11/16/20 10:30 36.8 C 62 18 103/36 L 98 Medical Necessity - Tobacco Use Smoking Status: Former smoker Tobacco Use: Cigarettes Assessment/Plan All Active Problems (Last Reviewed 10/20/20 @ 19:[address] Reji Galindo MD) Generalized weakness (Resolved) Hypokalemia (Resolved) Vomiting (Resolved) YOSELIN (acute kidney injury) (Acute) UTI (urinary tract infection) (Acute) Generalized weakness (Acute) History of non-ST elevation myocardial infarction (NSTEMI) (Resolved 03/26/20) GI bleed (Resolved 05/07/20) 1. Debility PT OT eval and treat Likely will require SNF upon discharge 2. Atypical chest pain resolved no additional work up troponin was 0.16, but chronically elevated 3. Hypokalemia improved monitor 4. Anemia stable transfuse for Hg <8 monitor 5. CAD Complicated history as per Dr. Foster's note from 08/11/2020: * She does have a complicated history of coronary artery disease with her first catheterization in 2007 where she underwent a drug-eluting stent to the right posterior descending artery and posterior lateral branch. She then subsequently underwent angioplasty and rotablation of her LAD in 2013. She then had an acute non-ST myocardial infarction in July 2017. Her troponin was elevated to 4.6. Patient was transferred to [facility] at that time where she did have angioplasty and stenting of her distal left main into the ostium of her LAD. In November 2017 she was hospitalized for a non-ST myocardial infarction. She underwent a diagnostic heart catheterization which demonstrated Left main coronary artery with mild disease. Left anterior descending artery previously stented and patent proximally and mid with severe distal disease. Ostial 95% circumflex artery stenosis and a diffusely diseased vessel. First obtuse marginal branch with ostial stenosis. Second obtuse marginal branch with diffuse disease. Dominant right coronary artery with diffuse disease. Preserved ejection fraction. She was transferred to [facility] where she underwent stenting to her ostial/proximal circumflex. * In February2017 she was admitted to [facility] for chest discomfort and was noted to have any elevated chest discomfort. She did undergo PCI, PTCA only of the proximal circumflex on 02/03/2018. She then presented back to the emergency room on February 25 with chest discomfort, she was transferred up to [facility]. She did have a mildly elevated troponin. Repeat heart catheterization did not demonstrate any new findings from a heart catheterization earlier that month. Patient was noted to have low blood pressure so her Coreg and Norvasc were decreased. * Patient returned in August 2018 with unstable angina and repeat catheterization demonstrated a critical in-stent restenosis at the bifurcation of her left main and left circumflex. She was transferred to [facility] where she underwent successful laser atherectomy for mid left circumflex in-stent restenosis, followed by balloon angioplasty only with a 3.0 ex-15 noncompliant balloon with minimal residual stenosis. The post angioplasty films, showed a well apposed stent with a heavily calcified ostium in the ostium was smaller in diameter than the proximal left circumflex due to the calcification. * Addition to this extensive history she does have previous history of hypertension, hyperlipidemia, hypothyroidism, and schizophrenia. She has more recently developed a lower GI bleed for which she was transfused her Brilinta was changed over to Plavix. Her ejection fraction has remained preserved based on her last echocardiogram from February of this year. The anterior apex was noted to be mildly hypokinetic and she has had mild restriction of her aortic valve. She tells me that she is scheduled to have a hemoglobin check in a few days. * In February of 2020, She presented to [facility] Emergency Department for altered mental status. She was admitted with non-ST elevated myocardial infarction with peak troponin of 9. Her hemoglobin was reduced and her she received 2 units of PRBCs. She was also treated for acute hypoxic and hypercapnic respiratory failure secondary to acute on chronic CHF. She was treated with IV Lasix and metolazone. No further cardiac intervention was recommended as she has been deemed not a candidate for further intervention. * In March of 2020, Pt was hospitalized again in March for NSTEMI and diastolic CHF exacerbation. Troponin elevation to 26. Cardiology was consulted. As per her recent cath she has significant underlying circumflex disease. Unfortunately she had a decline in her Hgb to 6.8, with thrombocytopenia, and iron deficiency. She was transfused with 2 units of blood. Brillinta was discontinued. She was started on Isosorbide and diuretics were adjusted. It was felt that she first be evaluated for GI bleed. And then consider a heart cath on a OP basis. * In april she underwent an EGD and colonoscopy. On 05/06/2020 she presented with bright red blood per rectum and was hospitalized for post operative bleed. Her Brilinta was held for 1 week and she was started on Plavix. In the past she has tried multiple different medications for her chest discomfort in addition to cardiac rehab in the ECP therapy. She was unable to tolerate ECP therapy. Cardiac rehab did not work for her due to transportation issues. She is declining increasing her Ranexa d/t hand. Continue ASA, clopidogrel, carvedilol, losartan, isosorbide 6. Chronic HFpEF EF 55% from echo on 02/11/2020 Continue carvedilol, losartan, furosemide. metolazone, ranolazine 7. DM2 uncontrolled High and low on basal and SSI 8. VTE prophylaxis: SQ heparin Inpatient E&M: [id number] Subs Hosp L2
[2020-11-16 15:07] VITALS: BP 86/28; PULSE 67; RESP 16; TEMP 36.8; O2SAT 98
[2020-11-16 15:14] VITALS: BP 89/33
[2020-11-16 16:40] LABS: Bedside Glucose 229 mg/dL (70-110)
[2020-11-16 17:57] VITALS: BP 112/46; PULSE 63
[2020-11-16 21:00] VITALS: BP 112/41; PULSE 60; RESP 18; TEMP 37; O2SAT 99
[2020-11-16] MEDS: Pravastatin 80 MG Tablet PO (21:59)
[2020-11-16 23:36] LABS: Bedside Glucose 194 mg/dL (70-110)
[2020-11-17 03:00] VITALS: BP 108/46; PULSE 60; RESP 16; TEMP 36.9; O2SAT 96
[2020-11-17] MEDS: Heparin Injection (Vial) 5,000 UNIT/ML VIAL 5000 UNIT SC ×3 (06:45→21:47)
[2020-11-17] MEDS: Levothyroxine 100 MCG Tablet PO (06:45)
[2020-11-17] MEDS: Menthol/Lanolin/Calamine/Znox 113 GM Tube 1 APPLIC TOPICAL ×3 (06:49→21:47)
[2020-11-17 06:55] LABS: Bedside Glucose 101 mg/dL (70-110)
--- NOTE | 2020-11-17 08:52 | PCM.PN.HOSP ---
Subjective: Upset that approval has not been obtained yet. Had some righter lateral chest pain, since resolved. Vitals/I&O's: Vital Signs Temp Pulse Resp BP Pulse Ox 36.9 C 60 16 108/46 L 96 11/17/20 03:00 11/17/20 03:00 11/17/20 03:00 11/17/20 03:00 11/17/20 03:00 Oxygen Delivery Method Room Air Weight: 83 kg Body Mass Index (BMI) 29.5 Finger Stick Blood Glucose 270 Intake and Output for Last 24 Hours 11/15/20 11/16/20 11/17/20 23:59 23:59 23:59 Intake Total 2950 / 2950 240 / 240 Output Total 1950 / 1950 175 / 625 850 / 850 Balance 1000 / 1000 65 / -385 -850 / -850 General: Alert, No apparent distress HEENT: Atraumatic, Normocephalic Oral: Moist Mucosa, No Gingival or Mucosal Lesions/ Ulcerations Neck: No Nodes, Thyroid Normal Size and Texture Lungs: Clear to auscultation, Normal air movement, No rhonchi, No wheeze Cardiovascular: Regular rate, Regular Rhythm Abdomen: Bowel Sounds Present, Soft, Non Tender, Non-Distended Extremities: Edema Laboratory Results 11/16/20 12:03: POC Glucose 241 H 11/16/20 16:30: POC Glucose 229 H 11/16/20 21:54: POC Glucose 194 H 11/17/20 06:43: POC Glucose 101 Current Medications Acetaminophen (Acetaminophen 325 Mg Tablet) 650 mg PO Q6H PRN PRN PRN Reason: Pain Score 1-10/Temp > 100.7 F Last Admin: 11/16/20 12:47 Dose: 650 mg Documented by: Ascorbic Acid (Ascorbic Acid 500 Mg Tablet) 500 mg PO DAILY [facility] Last Admin: 11/16/20 10:31 Dose: 500 mg Documented by: Aspirin (Aspirin 81 Mg Tab.Chew) 81 mg PO DAILY@0800 [facility] Last Admin: 11/16/20 10:31 Dose: 81 mg Documented by: Calamine/Phenol (Menthol/Lanolin/Calamine/Znox 113 Gm Tube) 1 applic TOPICAL TID [facility]; Protocol Last Admin: 11/17/20 06:49 Dose: 1 applic Documented by: Carvedilol (Carvedilol 3.125 Mg Tablet) 3.125 mg PO BIDCM [facility] Last Admin: 11/16/20 17:58 Dose: 3.125 mg Documented by: Clopidogrel Bisulfate (Clopidogrel Bisulfate 75 Mg Tablet) 75 mg PO DAILY [facility] Last Admin: 11/16/20 10:31 Dose: 75 mg Documented by: Dextrose (Dextrose 50%-Water 25 Gm/50 Ml Disp.Syrin) 0 gm IV X1 PRN; Protocol PRN Reason: Hypoglycemia Folic Acid (Folic Acid 1 Mg Tablet) 1 mg PO DAILY [facility] Last Admin: 11/16/20 10:31 Dose: 1 mg Documented by: Glucagon (Glucagon 1 Mg/Ml Syringe) 1 mg IM .X1 PRN PRN Reason: Hypoglycemia Haloperidol (Haloperidol 1 Mg Tablet) 1 mg PO BID PRN PRN Reason: NAUSEA Heparin Sodium (Porcine) (Heparin Injection (Vial) 5,000 Unit/Ml Vial) 5,000 unit SC Q8 [facility] Last Admin: 11/17/20 06:45 Dose: 5,000 unit Documented by: Sodium Chloride () 250 mls @ 15 mls/hr IV .[id number] PRN PRN Reason: Saline Flush Last Infusion: 11/14/20 15:28 Dose: 0 mls/hr Documented by: Sodium Chloride () 250 mls @ 15 mls/hr IV .[id number] PRN PRN Reason: Additional IVPB Infusion Insulin Glargine (Insulin Glargine 100 Units/Ml Pen) 34 units SC DAILY [facility] Last Admin: 11/16/20 11:03 Dose: 34 units Documented by: Insulin Human Lispro (Insulin Lispro 100 Unit/Ml Insuln.Pen) 0 unit SC ACHS [facility]; Protocol Last Admin: 11/17/20 06:45 Dose: Not Given Documented by: Isosorbide Mononitrate (Isosorbide Mononitrate 30 Mg Tablet) 30 mg PO DAILY@0600 [facility] Last Admin: 11/17/20 06:48 Dose: Not Given Documented by: Levothyroxine Sodium (Levothyroxine 100 Mcg Tablet) 100 mcg PO DAILY@0600 [facility] Last Admin: 11/17/20 06:45 Dose: 100 mcg Documented by: Losartan Potassium (Losartan Potassium 25 Mg Tablet) 25 mg PO DAILY [facility] Last Admin: 11/16/20 10:31 Dose: 25 mg Documented by: Melatonin (Melatonin 3 Mg Tablet) 3 mg PO QHS PRN PRN PRN Reason: INSOMNIA Mirabegron (Mirabegron 25 Mg Tab.Er.24h) 25 mg PO DAILY [facility] Last Admin: 11/16/20 10:31 Dose: 25 mg Documented by: Nystatin (Nystatin Powder 15gm Bottle) 1 applic TOPICAL BID [facility]; Protocol Last Admin: 11/16/20 21:58 Dose: 1 applic Documented by: Ondansetron HCl (Ondansetron 4 Mg/2 Ml Vial) 4 mg IV Q8H PRN PRN PRN Reason: NAUSEA/VOMITING Pantoprazole Sodium (Pantoprazole Sodium 40 Mg Tablet) 40 mg PO DAILY [facility] Last Admin: 11/16/20 10:31 Dose: 40 mg Documented by: Pravastatin Sodium (Pravastatin 80 Mg Tablet) 80 mg PO QHS [facility] Last Admin: 11/16/20 21:59 Dose: 80 mg Documented by: Ranolazine (Ranolazine 500 Mg Tablet) 1,000 mg PO BID [facility] Last Admin: 11/16/20 22:00 Dose: 1,000 mg Documented by: Sodium Chloride (0.9% Saline Lock 10 Ml Syringe) 10 - 40 ml IV UD PRN PRN Reason: SALINE FLUSH Last Admin: 11/14/20 15:58 Dose: 10 ml Documented by: Spironolactone (Spironolactone 25 Mg Tablet) 12.5 mg PO QODAY [facility] Last Admin: 11/16/20 10:32 Dose: 12.5 mg Documented by: Medical Necessity - Tobacco Use Smoking Status: Former smoker Tobacco Use: Cigarettes Assessment/Plan All Active Problems (Last Reviewed 10/20/20 @ 19:[address] Reji Galindo MD) Generalized weakness (Resolved) Hypokalemia (Resolved) Vomiting (Resolved) YOSELIN (acute kidney injury) (Acute) UTI (urinary tract infection) (Acute) Generalized weakness (Acute) History of non-ST elevation myocardial infarction (NSTEMI) (Resolved 03/26/20) GI bleed (Resolved 05/07/20) 1. Debility PT OT eval and treat Likely will require SNF upon discharge 2. Atypical chest pain resolved no additional work up troponin was 0.16, but chronically elevated 3. Hypokalemia improved monitor 4. Anemia stable transfuse for Hg <8 monitor 5. CAD Complicated history as per Dr. Foster's note from 08/11/2020: She does have a complicated history of coronary artery disease with her first catheterization in 2007 where she underwent a drug-eluting stent to the right posterior descending artery and posterior lateral branch. She then subsequently underwent angioplasty and rotablation of her LAD in 2013. She then had an acute non-ST myocardial infarction in July 2017. Her troponin was elevated to 4.6. Patient was transferred to [facility] at that time where she did have angioplasty and stenting of her distal left main into the ostium of her LAD. In November 2017 she was hospitalized for a non-ST myocardial infarction. She underwent a diagnostic heart catheterization which demonstrated Left main coronary artery with mild disease. Left anterior descending artery previously stented and patent proximally and mid with severe distal disease. Ostial 95% circumflex artery stenosis and a diffusely diseased vessel. First obtuse marginal branch with ostial stenosis. Second obtuse marginal branch with diffuse disease. Dominant right coronary artery with diffuse disease. Preserved ejection fraction. She was transferred to [facility] where she underwent stenting to her ostial/proximal circumflex. In February2017 she was admitted to [facility] for chest discomfort and was noted to have any elevated chest discomfort. She did undergo PCI, PTCA only of the proximal circumflex on 02/03/2018. She then presented back to the emergency room on February 25 with chest discomfort, she was transferred up to [facility]. She did have a mildly elevated troponin. Repeat heart catheterization did not demonstrate any new findings from a heart catheterization earlier that month. Patient was noted to have low blood pressure so her Coreg and Norvasc were decreased. Patient returned in August 2018 with unstable angina and repeat catheterization demonstrated a critical in-stent restenosis at the bifurcation of her left main and left circumflex. She was transferred to [facility] where she underwent successful laser atherectomy for mid left circumflex in-stent restenosis, followed by balloon angioplasty only with a 3.0 ex-15 noncompliant balloon with minimal residual stenosis. The post angioplasty films, showed a well apposed stent with a heavily calcified ostium in the ostium was smaller in diameter than the proximal left circumflex due to the calcification. Addition to this extensive history she does have previous history of hypertension, hyperlipidemia, hypothyroidism, and schizophrenia. She has more recently developed a lower GI bleed for which she was transfused her Brilinta was changed over to Plavix. Her ejection fraction has remained preserved based on her last echocardiogram from February of this year. The anterior apex was noted to be mildly hypokinetic and she has had mild restriction of her aortic valve. She tells me that she is scheduled to have a hemoglobin check in a few days. In February of 2020, She presented to [facility] Emergency Department for altered mental status. She was admitted with non-ST elevated myocardial infarction with peak troponin of 9. Her hemoglobin was reduced and her she received 2 units of PRBCs. She was also treated for acute hypoxic and hypercapnic respiratory failure secondary to acute on chronic CHF. She was treated with IV Lasix and metolazone. No further cardiac intervention was recommended as she has been deemed not a candidate for further intervention. In March of 2020, Pt was hospitalized again in March for NSTEMI and diastolic CHF exacerbation. Troponin elevation to 26. Cardiology was consulted. As per her recent cath she has significant underlying circumflex disease. Unfortunately she had a decline in her Hgb to 6.8, with thrombocytopenia, and iron deficiency. She was transfused with 2 units of blood. Brillinta was discontinued. She was started on Isosorbide and diuretics were adjusted. It was felt that she first be evaluated for GI bleed. And then consider a heart cath on a OP basis. In april she underwent an EGD and colonoscopy. On 05/06/2020 she presented with bright red blood per rectum and was hospitalized for post operative bleed. Her Brilinta was held for 1 week and she was started on Plavix. In the past she has tried multiple different medications for her chest discomfort in addition to cardiac rehab in the ECP therapy. She was unable to tolerate ECP therapy. Cardiac rehab did not work for her due to transportation issues. She is declining increasing her Ranexa d/t hand. Continue ASA, clopidogrel, carvedilol, losartan, isosorbide 6. Chronic HFpEF EF 55% from echo on 02/11/2020 Continue carvedilol, losartan, furosemide. metolazone, ranolazine 7. DM2 uncontrolled High and low on basal and SSI 8. VTE prophylaxis: SQ heparin 9. Disposition: pending insurance approval. [facility] pending approval. OBSV E&M: [id number] Subsequent observation care L2
--- NOTE | 2020-11-17 09:11 | CASEMGMT ---
Addendum entered by Joyce Ortiz 11/17/20 15:02: SUAD received message from Tahmina at [facility] stating she hasn't received authorization yet. Tahmina states she will be calling pt's insurance around 4:00pm for update if she doesn't receive authorization by then. Addendum entered by Joyce Ortiz 11/17/20 14:44: SW placed a call to Tahmina at [facility] and left message asking about pt's pre-cert. SW waiting for call back. Addendum entered by Joyce Ortiz 11/17/20 13:24: SW updated that pt wanted to speak to SW. SW in to speak with pt. Pt states she is staying too long in the hospital, asked why she can't discharge. SW explained that SUAD is waiting for insurance approval, pt cannot discharge to [facility] until pre-cert is obtained. SW confirmed with pt that she is only going to [facility] for short term rehabilitation. Pt states the therapy she is getting at [facility] is not adequate enough. SW explained that [facility] may be able to do different kinds of therapy. Pt states understanding. Plan: [facility] pending pre-cert Original Note: Social Work Note SUAD placed a call to Tahmina at [facility], pre-cert is still pending. SW asked Tahmina to let this worker know when pre-cert is obtained. Plan: [facility] pending pre-cert Joyce GUTHRIE, HAND OUTSIDE CUTTER
[2020-11-17 09:36] VITALS: BP 108/42; PULSE 60; RESP 18; TEMP 36.8; O2SAT 98
[2020-11-17] MEDS: Pantoprazole Sodium 40 MG Tablet PO (09:40)
[2020-11-17] MEDS: Ascorbic Acid 500 MG Tablet PO (09:40)
[2020-11-17] MEDS: Ranolazine 500 MG Tablet 1000 MG PO ×2 (09:40→21:48)
[2020-11-17] MEDS: Aspirin 81 MG TAB.CHEW PO (09:40)
[2020-11-17] MEDS: Mirabegron 25 MG TAB.ER.24H PO (09:41)
[2020-11-17] MEDS: Losartan Potassium 25 MG Tablet PO (09:41)
[2020-11-17] MEDS: Folic Acid 1 MG Tablet PO (09:41)
[2020-11-17] MEDS: Nystatin Powder 15gm Bottle 1 APPLIC TOPICAL ×2 (09:41→21:48)
[2020-11-17] MEDS: Clopidogrel Bisulfate 75 MG Tablet PO (09:41)
[2020-11-17] MEDS: Carvedilol 3.125 MG TABLET PO ×2 (09:41→17:31)
[2020-11-17 11:40] LABS: Bedside Glucose 189 mg/dL (70-110)
[2020-11-17] MEDS: Insulin Lispro 100 UNIT/ML INSULN.PEN SC ×3 (12:17→21:58)
[2020-11-17 15:02] VITALS: BP 119/47; PULSE 64; RESP 18; TEMP 36.8; O2SAT 98
[2020-11-17] MEDS: 0.9% Saline Lock 10 ML Syringe IV (15:39)
[2020-11-17] MEDS: Ondansetron 4 MG/2 ML Vial IV (15:39)
--- NOTE | 2020-11-17 16:28 | CASEMGMT ---
Social Work Note SW in to speak with pt. SW updated pt that pre-cert is still pending for [facility]. SW reviewed notes, pt walked 140ft contact guard. SW spoke with pt about how well she is doing with therapy, pt may get denied. Pt states I have a long way to walk to get my medications and food, I was told to go to a SNF. Pt states after I walked with therapy I became nauseas. Pt states that she has had recent falls at [facility] too. SW asked pt if she feels comfortable returning to [facility] with [facility], and pt again states she has a long way to walk at [facility] would like to wait for determination from [facility]. SW informed pt that she may get denied SNF and may need to return to [facility] regardless. SW asked pt about Mental Health Hx as pt has diagnosis of Schizophrenia and Aleta Calvin from [facility] is listed on pt's demographics from [facility]. Pt states that Aleta Calvin is a RN at [facility] and she has had phone calls with her about two months ago. Pt states she isn't prescribed any medications from [facility]. Pt states she used to take injections but is no longer taking any medications/injections. Pt states she received a letter from [facility] a few months ago asking if she still needed their services or not. Pt states she used to do their Day Treatment at [facility] but that was more than two years ago and denied any current use of Day Treatment Services. Pt states she did have a psychiatric hospitalization stay before but she was only there for 13 days and it was 50 or so years ago when she was to her . Pt denied any recent psychiatric hospitalizations. SW asked pt about income. Pt states she is on SSDI due to both Mental Health and Physical Health. Due to pt having Schizophrenia, pt utilizing case management services at [facility] and getting SSDI due to Mental Health, pt will trip the screen for the PAS/RR. Pt may get denied SNF as pt is moving well with PT/OT. Once PAS/RR is Submitted, pt HAS TO remain at [facility] (regardless of discharge plans) until approval from [facility] is obtained. If pt gets denied SNF and returns to [facility], PAS/RR will not be needed. At this time, pre-cert is still pending for SNF. SW to follow up with [facility] tomorrow regarding pt's pre-cert. Joyce Ortiz CUSTOMER SOLUTIONS COORDINATOR, WEB CONTENT EXECUTIVE
[2020-11-17 16:45] LABS: Bedside Glucose 170 mg/dL (70-110)
[2020-11-17] MEDS: Mag Hydrox/Al Hydrox/Simeth 30 ML UDC PO (19:16)
[2020-11-17] MEDS: Pravastatin 80 MG Tablet PO (21:49)
[2020-11-17 21:50] VITALS: BP 122/50; PULSE 70; RESP 16; TEMP 36.7; O2SAT 97
[2020-11-17] MEDS: Acetaminophen 325 MG Tablet 650 MG PO (22:08)
[2020-11-17 22:40] LABS: Bedside Glucose 198 mg/dL (70-110)
[2020-11-18 03:00] VITALS: BP 139/52; PULSE 69; RESP 16; TEMP 36.6; O2SAT 97
[2020-11-18] MEDS: Menthol/Lanolin/Calamine/Znox 113 GM Tube 1 APPLIC TOPICAL ×2 (06:19→14:33)
[2020-11-18] MEDS: Heparin Injection (Vial) 5,000 UNIT/ML VIAL 5000 UNIT SC ×2 (06:19→14:34)
[2020-11-18] MEDS: Isosorbide Mononitrate 30 MG Tablet PO (06:20)
[2020-11-18] MEDS: Levothyroxine 100 MCG Tablet PO (06:20)
[2020-11-18] MEDS: Insulin Lispro 100 UNIT/ML INSULN.PEN SC ×2 (06:23→12:24)
[2020-11-18 06:40] LABS: Bedside Glucose 211 mg/dL (70-110)
[2020-11-18 10:01] VITALS: BP 98/43; PULSE 57; RESP 18; TEMP 36.6; O2SAT 100
[2020-11-18] MEDS: Ascorbic Acid 500 MG Tablet PO (10:02)
[2020-11-18] MEDS: Ranolazine 500 MG Tablet 1000 MG PO (10:02)
[2020-11-18] MEDS: Clopidogrel Bisulfate 75 MG Tablet PO (10:02)
[2020-11-18] MEDS: Folic Acid 1 MG Tablet PO (10:02)
[2020-11-18] MEDS: Spironolactone 25 MG Tablet 12.5 MG PO (10:03)
[2020-11-18] MEDS: Carvedilol 3.125 MG TABLET PO (10:03)
[2020-11-18] MEDS: Mirabegron 25 MG TAB.ER.24H PO (10:03)
[2020-11-18] MEDS: Aspirin 81 MG TAB.CHEW PO (10:03)
[2020-11-18] MEDS: Pantoprazole Sodium 40 MG Tablet PO (10:04)
[2020-11-18] MEDS: Nystatin Powder 15gm Bottle 1 APPLIC TOPICAL (10:04)
[2020-11-18 10:09] VITALS: BP 105/44; PULSE 57
--- NOTE | 2020-11-18 10:41 | CASEMGMT ---
Social Work Note SUAD discussed case with physician, pt will likely get denied SNF as pt is moving well with therapy. (140ft contact guard). Pt can likely return to [facility] with [facility]. SUAD in to speak with pt. Pt states she is fine with returning to [facility] with [facility]. Pt states she was seeing Greogry for therapy (thinks it was through [facility]). Pt states whatever my insurance will cover. SUAD informed pt that she will discharge back to [facility] today with [facility] then. Pt states understanding, agreeable to plan. SUAD updated RN CM. Plan: Return to [facility] with [facility] today Joyce Ortiz PLUNGER SCOOP OPERATOR, CONFIGURATOR
--- NOTE | 2020-11-18 10:55 | CASEMGMT ---
Addendum entered by Rosalba Orellana 11/18/20 11:19: BELINDA TRACEY updated from that [facility] has PT and OT and will provide for pt. They are currently not letting agencies in at this time. BELINDA TRACEY in to pt room. Pt is agreeable to this. Updated via cortext of plan. Original Note: BELINDA TRACEY notified that pt will be going home and interested in HHC therapy. BELINDA TRACEY in to pt room to discuss discharge planning. Patient was provided a list of C providers including quality and resource use data and consistent with the patient?s preferred geographic region, medical needs, and insurance network. The patient?s preferred provider is 1. [facility], 2. [facility] 3. [facility]. TC to [facility] and left message on intake Elzbieta's line placing referral. Will await acceptance.
--- NOTE | 2020-11-18 11:16 | CASEMGMT ---
Social Work Note SUAD placed a call to [facility] again and spoke with Francia. SUAD updated Francia that pt is doing well with therapy, will return to [facility] with PT/OT. Francia states they have their own therapy that comes in Sunday and and they can use their therapy. Francia states she just needs order for PT/OT and they will arrange PT/OT when pt returns. SUAD asked Francia if pt needs COVID test and Francia states probably not, they have all been vaccinated. SUAD updated RN ALEXY who updated physician. SUAD placed a call to Tahmina at [facility] and updated her that pt will be returning to [facility] today as pt is doing well with therapy. SW to arrange wheelchair transportation once discharge is in. Plan: Return to [facility] today with PT/OT Joyce GUTHRIE, ASSOCIATE MANAGER
[2020-11-18 12:36] LABS: Bedside Glucose 240 mg/dL (70-110)
--- NOTE | 2020-11-18 12:48 | DCINST_ITS ---
You will use the following diet at home:: Cardiac Call your doctor if you observe: Fever of 101 or Higher, Shortness of breath Allergies/Adverse Reactions: Allergies aripiprazole [From Abilify] Allergy (Intermediate, Verified 11/13/20 17:53) it over powered me lisinopril Allergy (Intermediate, Verified 11/13/20 17:53) Unknown atorvastatin calcium [From Lipitor] Adverse Reaction (Verified 11/13/20 17:53) Unknown rosiglitazone maleate [From Avandia] Adverse Reaction (Verified 11/13/20 17:53) Other Medications to take at Discharge Aspirin [Aspirin, Baby] 81 mg PO DAILY@0800 06/30/17 Nitroglycerin [Nitrostat] 0.4 mg SL PRN PRN 06/30/17 Multivitamins,Therapeutic [Multivitamin] 1 tab PO DAILY 02/01/18 ascorbic acid (vitamin C) 500 mg tablet 500 mg PO DAILY 09/13/18 Insulin Glargine,Hum.rec.anlog [Cristianuroman Soldeonna] 34 unit SC DAILY 04/23/19 Carvedilol [Coreg] 3.125 mg PO BIDCM 06/24/19 Cholecalciferol (Vitamin D3) [Vitamin D3] 5,000 unit PO DAILY 06/24/19 Levothyroxine [Synthroid] 100 mcg PO DAILY 07/24/19 Folic Acid 1 mg PO DAILY 02/10/20 Insulin Regular, Human [Humulin R] 5 unit SQ TIDCM 02/10/20 losartan 25 mg tablet 25 mg PO DAILY #30 tab 04/29/20 mirabegron 25 mg tablet,extended release 24 hr 25 mg PO DAILY 06/17/20 albuterol sulfate 90 mcg/actuation aerosol inhaler 2 puff INHALATION Q6H PRN 08/11/20 pravastatin 80 mg tablet 80 mg PO DAILY #90 tab 08/13/20 Clopidogrel Bisulfate [Clopidogrel] 75 mg PO DAILY 10/20/20 Pantoprazole Sodium [Protonix] 40 mg PO DAILY 10/20/20 Ranolazine [Ranolazine ER] 1,000 mg PO BID 10/20/20 Haloperidol [Haldol] 1 mg PO BID PRN 11/13/20 Spironolactone 25 mg PO QODAY 11/13/20 Albuterol IH (ProAir) [Proair Hfa] 2 puff INHALATION Q4H PRN PRN 11/14/20 Pnv No.95/Ferrous Fum/Folic AC [ Caplet] 1 each PO 11/14/20 Polyethylene Glycol 3350 [Miralax] 17 gm PO DAILY PRN 11/14/20 Acetaminophen [Tylenol Tablet] 650 mg PO Q6H PRN PRN tablet 11/18/20 Isosorbide Mononitrate [Isosorbide Mononitrate ER] 30 mg PO DINNER #0 11/18/20 Primary Care Physician: Diana Cohen MD [Primary Care Provider] - Within 2 Weeks Test Results: Test results from this visit will be discussed in further detail at your follow- up appointment, if applicable. Please Follow Up With: Floyd Foster MD When: 02/10/2021 Proposed Discharge Date: 11/18/20
--- NOTE | 2020-11-18 12:49 | DS.PCM_ITS ---
Discharge Date and Diagnosis Date of Admission: 11/13/20 Date of Discharge: 11/18/20 - Primary Discharge Diagnosis Acute Problems: 1. Debility 2. atypical chest pain 3. YOSELIN 4. Hypokalemia - Secondary Discharge Diagnosis Chronic Problems: Chronic Problems (Last Reviewed 10/20/20 @ 19:[address] Reji Galindo MD) CAD (coronary artery disease) (Chronic) Acute exacerbation of CHF (congestive heart failure) (Chronic) Atherosclerotic heart disease [place] coronary artery w/angina pectoris (Chronic) History of coronary artery stent placement (Chronic 08/20/18) PCI of ostial and mid LCx ISR with laser atherectomy, balloon angioplasty 08/20/18 PTCA and laser atherectomy-Prox LCx 02/03/2018; POBA-ostial/prox LCx 11/09/2017; JPV-PEH-Xzqh LCx w/ 2.5 x 20 mm Synergy Stent, RAYMON-Distal LM-into the Ostium of LAD w/ 4.0 x 16 mm Synergy Stent 07/05/2017; POBA-Ostium and Prox LCx 04/19/2017; PCI-Rotational Ipnbnmvshgh-[id number] with a 2.75 x 38 mm Promus Premier drug eluting stent 12/15/13; RAYMON-Mid RPLB w/ 3.0 x 28 mm Cypher and Prox RPLB w/ 3.0 x 8 mm Cypher, RAYMON- Ostium RPDA w/ 2.5 x 28 mm Cypher 09/17/2007 Chronic diastolic (congestive) heart failure (Chronic) Non-rheumatic aortic stenosis (Chronic) Essential hypertension (Chronic) Hyperlipidemia (Chronic) Diabetes mellitus, type II (Chronic) Hypothyroidism (Chronic) Schizophrenia (Chronic) Anemia (Chronic) Follows with Dr Son 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) Hospital Course and Treatment Imaging Results: Clinical Impression(s) from Imaging Studies Brain CT 11/13/20 18:12 IMPRESSION: 1. No acute intracranial hemorrhage or mass effect. 2. Stable exam. 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 Electronically Signed: Marshal Jiménez MD at 10:20 EDT Tel , Service support , Operations: None Procedures: None Summary of Care Provided: The patient is a 80 year old F presents with a fall at her assisted living. Patient was getting try to get up and had weakness and fell and hit her head. Head CT showed no acute process. Patient did have some elevated creatinine at 1.53 concern for acute kidney injury so her diuretics were held. Overall the patient's creatinine did improve with holding her metolazone as well as furosemide. Patient did have some issues with hypotension so her isosorbide was changed from 60 and 90 daily at different times to 30 mg daily. Patient was a waiting a precertification but continue to be evaluated by physical therapy. Patient has been able to ambulate 140 feet. Initially felt patient be going to a care home facility but patient will be going back to [facility] with PT and OT services. Patient did have complaints of chest pain which is actually not a new complaint for her. Patient has been evaluated extensively and patient does have known coronary artery disease, however, not amenable to any further intervention. Per Dr. Foster's note 08/11/2020: * She does have a complicated history of coronary artery disease with her first catheterization in 2007 where she underwent a drug-eluting stent to the right posterior descending artery and posterior lateral branch. She then subsequently underwent angioplasty and rotablation of her LAD in 2013. She then had an acute non-ST myocardial infarction in July 2017. Her troponin was elevated to 4.6. Patient was transferred to [facility] at that time where she did have angioplasty and stenting of her distal left main into the ostium of her LAD. In November 2017 she was hospitalized for a non-ST myocardial infarction. She underwent a diagnostic heart catheterization which demonstrated Left main coronary artery with mild disease. Left anterior descending artery previously stented and patent proximally and mid with severe distal disease. Ostial 95% circumflex artery stenosis and a diffusely diseased vessel. First obtuse marginal branch with ostial stenosis. Second obtuse marginal branch with diffuse disease. Dominant right coronary artery with diffuse disease. Preserved ejection fraction. She was transferred to [facility] where she underwent stenting to her ostial/proximal circumflex. * In February2017 she was admitted to [facility] for chest discomfort and was noted to have any elevated chest discomfort. She did undergo PCI, PTCA only of the proximal circumflex on 02/03/2018. She then presented back to the emergency room on February 25 with chest discomfort, she was transferred up to [facility]. She did have a mildly elevated troponin. Repeat heart catheterization did not demonstrate any new findings from a heart c atheterization earlier that month. Patient was noted to have low blood pressure so her Coreg and Norvasc were decreased. * Patient returned in August 2018 with unstable angina and repeat catheterizat ion demonstrated a critical in-stent restenosis at the bifurcation of her left main and left circumflex. She was transferred to [facility] where she underwent successful laser atherectomy for mid left circumflex in- stent restenosis, followed by balloon angioplasty only with a 3.0 ex-15 noncompliant balloon with minimal residual stenosis. The post angioplasty films, showed a well apposed stent with a heavily calcified ostium in the ostium was smaller in diameter than the proximal left circumflex due to the calcification. * Addition to this extensive history she does have previous history of hypertension, hyperlipidemia, hypothyroidism, and schizophrenia. She has more recently developed a lower GI bleed for which she was transfused her Brilinta was changed over to Plavix. Her ejection fraction has remained preserved based on her last echocardiogram from February of this year. The anterior apex was noted to be mildly hypokinetic and she has had mild restriction of her aor tic valve. She tells me that she is scheduled to have a hemoglobin check in a few days. * In February of 2020, She presented to [facility] Emergency Department for altered mental status. She was admitted with non-ST elevated myocardial infarction with peak troponin of 9. Her hemoglobin was reduced and her she received 2 units of PRBCs. She was also treated for acute hypoxic and hypercapnic respiratory failure secondary to acute on chronic CHF. She was treated with IV Lasix and metolazone. No further cardiac intervention was recommended as she has been deemed not a candidate for further intervention. * In March of 2020, Pt was hospitalized again in March for NSTEMI and diastolic CHF exacerbation. Troponin elevation to 26. Cardiology was consulted. As per her recent cath she has significant underlying circumflex disease. Unfortunately she had a decline in her Hgb to 6.8, with thrombocytopenia, and iron deficiency. She was transfused with 2 units of blood. Brillinta was discontinued. She was started on Isosorbide and diuretics were adjusted. It was felt that she first be evaluated for GI bleed. And then consider a heart cath on a OP basis. * In april she underwent an EGD and colonoscopy. On 05/06/2020 she presented with bright red blood per rectum and was hospitalized for post operative bleed. Her Brilinta was held for 1 week and she was started on Plavix. In the past she has tried multiple different medications for her chest discomfort in addition to cardiac rehab in the ECP therapy. She was unable to tolerate ECP therapy. Cardiac rehab did not work for her due to transportation issues. She is declining increasing her Ranexa d/t hand. [] - Physical Exam Vitals/I&O's: Vital Signs Temp Pulse Resp BP Pulse Ox 36.6 C 57 L 18 105/44 L 100 11/18/20 10:01 11/18/20 10:09 11/18/20 10:01 11/18/20 10:09 11/18/20 10:01 Oxygen Delivery Method Room Air Weight: 84.4 kg Body Mass Index (BMI) 29.5 Finger Stick Blood Glucose 270 Intake and Output for Last 24 Hours 11/16/20 11/17/20 11/18/20 23:59 23:59 23:59 Intake Total 240 / 240 Output Total 175 / 625 1900 / 1900 Balance 65 / -385 -1900 / -1900 General: Alert, No apparent distress HEENT: Atraumatic, Normocephalic Oral: Moist Mucosa, No Gingival or Mucosal Lesions/ Ulcerations Neck: No Nodes, Thyroid Normal Size and Texture Lungs: Clear to auscultation, Normal air movement, No rhonchi, No wheeze Cardiovascular: Regular rate, Regular Rhythm Psych/Mental Status: Normal Affect Laboratory Results 11/17/20 16:39: POC Glucose 170 H 11/17/20 21:57: POC Glucose 198 H 11/18/20 06:22: POC Glucose 211 H 11/18/20 12:22: POC Glucose 240 H Current Medications Acetaminophen (Acetaminophen 325 Mg Tablet) 650 mg PO Q6H PRN PRN PRN Reason: Pain Score 1-10/Temp > 100.7 F Last Admin: 11/17/20 22:08 Dose: 650 mg Documented by: Al Hydroxide/Mg Hydroxide (Mag Hydrox/Al Hydrox/Simeth 30 Ml Udc) 30 ml PO Q4H PRN PRN PRN Reason: DYSPEPSIA Last Admin: 11/17/20 19:16 Dose: 30 ml Documented by: Ascorbic Acid (Ascorbic Acid 500 Mg Tablet) 500 mg PO DAILY [facility] Last Admin: 11/18/20 10:02 Dose: 500 mg Documented by: Aspirin (Aspirin 81 Mg Tab.Chew) 81 mg PO DAILY@0800 [facility] Last Admin: 11/18/20 10:03 Dose: 81 mg Documented by: Calamine/Phenol (Menthol/Lanolin/Calamine/Znox 113 Gm Tube) 1 applic TOPICAL TID [facility]; Protocol Last Admin: 11/18/20 06:19 Dose: 1 applic Documented by: Carvedilol (Carvedilol 3.125 Mg Tablet) 3.125 mg PO BIDCM [facility] Last Admin: 11/18/20 10:03 Dose: 3.125 mg Documented by: Clopidogrel Bisulfate (Clopidogrel Bisulfate 75 Mg Tablet) 75 mg PO DAILY [facility] Last Admin: 11/18/20 10:02 Dose: 75 mg Documented by: Dextrose (Dextrose 50%-Water 25 Gm/50 Ml Disp.Syrin) 0 gm IV X1 PRN; Protocol PRN Reason: Hypoglycemia Folic Acid (Folic Acid 1 Mg Tablet) 1 mg PO DAILY [facility] Last Admin: 11/18/20 10:02 Dose: 1 mg Documented by: Glucagon (Glucagon 1 Mg/Ml Syringe) 1 mg IM .X1 PRN PRN Reason: Hypoglycemia Haloperidol (Haloperidol 1 Mg Tablet) 1 mg PO BID PRN PRN Reason: NAUSEA Heparin Sodium (Porcine) (Heparin Injection (Vial) 5,000 Unit/Ml Vial) 5,000 unit SC Q8 [facility] Last Admin: 11/18/20 06:19 Dose: 5,000 unit Documented by: Sodium Chloride () 250 mls @ 15 mls/hr IV .[id number] PRN PRN Reason: Saline Flush Last Infusion: 11/14/20 15:28 Dose: 0 mls/hr Documented by: Sodium Chloride () 250 mls @ 15 mls/hr IV .[id number] PRN PRN Reason: Additional IVPB Infusion Insulin Glargine (Insulin Glargine 100 Units/Ml Pen) 34 units SC DAILY [facility] Last Admin: 11/18/20 10:05 Dose: 34 units Documented by: Insulin Human Lispro (Insulin Lispro 100 Unit/Ml Insuln.Pen) 0 unit SC ACHS [facility]; Protocol Last Admin: 11/18/20 12:24 Dose: 4 u Documented by: Isosorbide Mononitrate (Isosorbide Mononitrate 30 Mg Tablet) 30 mg PO DAILY@0600 [facility] Last Admin: 11/18/20 06:20 Dose: 30 mg Documented by: Levothyroxine Sodium (Levothyroxine 100 Mcg Tablet) 100 mcg PO DAILY@0600 [facility] Last Admin: 11/18/20 06:20 Dose: 100 mcg Documented by: Losartan Potassium (Losartan Potassium 25 Mg Tablet) 25 mg PO DAILY [facility] Last Admin: 11/18/20 10:03 Dose: Not Given Documented by: Melatonin (Melatonin 3 Mg Tablet) 3 mg PO QHS PRN PRN PRN Reason: INSOMNIA Mirabegron (Mirabegron 25 Mg Tab.Er.24h) 25 mg PO DAILY [facility] Last Admin: 11/18/20 10:03 Dose: 25 mg Documented by: Nystatin (Nystatin Powder 15gm Bottle) 1 applic TOPICAL BID [facility]; Protocol Last Admin: 11/18/20 10:04 Dose: 1 applic Documented by: Ondansetron HCl (Ondansetron 4 Mg/2 Ml Vial) 4 mg IV Q8H PRN PRN PRN Reason: NAUSEA/VOMITING Last Admin: 11/17/20 15:39 Dose: 4 mg Documented by: Pantoprazole Sodium (Pantoprazole Sodium 40 Mg Tablet) 40 mg PO DAILY [facility] Last Admin: 11/18/20 10:04 Dose: 40 mg Documented by: Pravastatin Sodium (Pravastatin 80 Mg Tablet) 80 mg PO QHS [facility] Last Admin: 11/17/20 21:49 Dose: 80 mg Documented by: Ranolazine (Ranolazine 500 Mg Tablet) 1,000 mg PO BID [facility] Last Admin: 11/18/20 10:02 Dose: 1,000 mg Documented by: Sodium Chloride (0.9% Saline Lock 10 Ml Syringe) 10 - 40 ml IV UD PRN PRN Reason: SALINE FLUSH Last Admin: 11/17/20 15:39 Dose: 10 ml Documented by: Spironolactone (Spironolactone 25 Mg Tablet) 12.5 mg PO QODAY [facility] Last Admin: 11/18/20 10:03 Dose: 12.5 mg Documented by: Discharge Diet: No Restrictions Call your doctor if you observe: Fever of 101 or Higher, Shortness of breath Home Medications: Medications to take at Discharge Aspirin [Aspirin, Baby] 81 mg PO DAILY@0800 06/30/17 Nitroglycerin [Nitrostat] 0.4 mg SL PRN PRN 06/30/17 Multivitamins,Therapeutic [Multivitamin] 1 tab PO DAILY 02/01/18 ascorbic acid (vitamin C) 500 mg tablet 500 mg PO DAILY 09/13/18 Insulin Glargine,Hum.rec.anlog [Soha Soldeonna] 34 unit SC DAILY 04/23/19 Carvedilol [Coreg] 3.125 mg PO BIDCM 06/24/19 Cholecalciferol (Vitamin D3) [Vitamin D3] 5,000 unit PO DAILY 06/24/19 Levothyroxine [Synthroid] 100 mcg PO DAILY 07/24/19 Folic Acid 1 mg PO DAILY 02/10/20 Insulin Regular, Human [Humulin R] 5 unit SQ TIDCM 02/10/20 losartan 25 mg tablet 25 mg PO DAILY #30 tab 04/29/20 mirabegron 25 mg tablet,extended release 24 hr 25 mg PO DAILY 06/17/20 albuterol sulfate 90 mcg/actuation aerosol inhaler 2 puff INHALATION Q6H PRN 08/11/20 pravastatin 80 mg tablet 80 mg PO DAILY #90 tab 08/13/20 Clopidogrel Bisulfate [Clopidogrel] 75 mg PO DAILY 10/20/20 Pantoprazole Sodium [Protonix] 40 mg PO DAILY 10/20/20 Ranolazine [Ranolazine ER] 1,000 mg PO BID 10/20/20 Haloperidol [Haldol] 1 mg PO BID PRN 11/13/20 Spironolactone 25 mg PO QODAY 11/13/20 Albuterol IH (ProAir) [Proair Hfa] 2 puff INHALATION Q4H PRN PRN 11/14/20 Pnv No.95/Ferrous Fum/Folic AC [ Caplet] 1 each PO 11/14/20 Polyethylene Glycol 3350 [Miralax] 17 gm PO DAILY PRN 11/14/20 Acetaminophen [Tylenol Tablet] 650 mg PO Q6H PRN PRN tablet 11/18/20 Isosorbide Mononitrate [Isosorbide Mononitrate ER] 30 mg PO DINNER #0 11/18/20 Primary Care Physician: Diana Cohen MD [Primary Care Provider] - Within 2 Weeks Please Follow Up With: Floyd Foster MD When: 02/10/2021 Disposition: Home with Home Health Minutes spent on discharge:: 32 Patient Condition:: Fair Medical Necessity - Tobacco Use Smoking Status: Former smoker Tobacco Use: Cigarettes Meaningful Use Info Meaningful Use Diagnoses (Choose all that apply): None applicable OBSV E&M: 95745 Observation care discharge
--- NOTE | 2020-11-18 14:34 | CASEMGMT ---
Addendum entered by Joyce Ortiz 11/18/20 15:25: SUAD also placed a call to pt's CM at [facility] and left message updating her on discharge. SUAD placed a call to [facility] RN number and left message updating them on transportation time. Addendum entered by Joyce Ortiz 11/18/20 15:19: SW received call from Mathieu at [facility]. Transportation is scheduled for 4:15pm. SW accessed trip assist and [facility] is scheduled to transport pt. SW completed transportation form and placed on CATHRYN folder and copy on pt's chart. SW updated pt on transportation time and discharge to [facility]. Pt states understanding, states she doesn't want this worker to call any family. SW updated RN on transportation time. SUAD placed a call to pt's [facility] CM Andie Keyevie and left message updating her on pt's discharge back to [facility]. Plan: Return to [facility] with PT/OT. Physician's transporting pt via wheelchair van at 4:15pm KARIN Evans Original Note: Social Work Note Pt is ready for discharge back to [facility]. Pt can transport via wheelchair van. Pt has [facility] insurance (secondary). SUAD placed a call to [facility] ( ) which is now [facility]. SUAD spoke with Mary at [facility] and requested wheelchair van transport and preferred provider is [facility]. Mary states she will submit request (transport ID# [id number]). Mary states it can take anywhere from half hour to four hours to get transportation scheduled. Once a provider is able to accept transport, the provider will call this worker and let this worker know. SUAD waiting for call back from provider once trip is accepted. Plan: Discharge back to [facility] KARIN Evans
[2020-11-18 15:24] VITALS: BP 103/42; PULSE 56; RESP 16; TEMP 36.8; O2SAT 99
--- NOTE | 2020-11-18 15:37 | PHA.DC.MR ---
Pharmacy Service has performed discharge medication reconciliation for this patient. The patient's discharge medication list was reviewed for discrepancies and discrepancies were resolved. Home Medications Aspirin [Aspirin, Baby] 81 mg PO DAILY@0800 06/30/17 Nitroglycerin [Nitrostat] 0.4 mg SL PRN PRN 06/30/17 Multivitamins,Therapeutic [Multivitamin] 1 tab PO DAILY 02/01/18 ascorbic acid (vitamin C) 500 mg tablet 500 mg PO DAILY 09/13/18 Insulin Glargine,Hum.rec.anlog [Toujeo Solostar] 34 unit SC DAILY 04/23/19 Carvedilol [Coreg] 3.125 mg PO BIDCM 06/24/19 Cholecalciferol (Vitamin D3) [Vitamin D3] 5,000 unit PO DAILY 06/24/19 Levothyroxine [Synthroid] 100 mcg PO DAILY 07/24/19 Folic Acid 1 mg PO DAILY 02/10/20 Insulin Regular, Human [Humulin R] 5 unit SQ TIDCM 02/10/20 losartan 25 mg tablet 25 mg PO DAILY #30 tab 04/29/20 mirabegron 25 mg tablet,extended release 24 hr 25 mg PO DAILY 06/17/20 albuterol sulfate 90 mcg/actuation aerosol inhaler 2 puff INHALATION Q6H PRN 08/11/20 pravastatin 80 mg tablet 80 mg PO DAILY #90 tab 08/13/20 Clopidogrel Bisulfate [Clopidogrel] 75 mg PO DAILY 10/20/20 Pantoprazole Sodium [Protonix] 40 mg PO DAILY 10/20/20 Ranolazine [Ranolazine ER] 1,000 mg PO BID 10/20/20 Haloperidol [Haldol] 1 mg PO BID PRN 11/13/20 Spironolactone 25 mg PO QODAY 11/13/20 Albuterol IH (ProAir) [Proair Hfa] 2 puff INHALATION Q4H PRN PRN 11/14/20 Pnv No.95/Ferrous Fum/Folic AC [ Caplet] 1 each PO 11/14/20 Polyethylene Glycol 3350 [Miralax] 17 gm PO DAILY PRN 11/14/20 Acetaminophen [Tylenol Tablet] 650 mg PO Q6H PRN PRN tablet 11/18/20 Isosorbide Mononitrate [Isosorbide Mononitrate ER] 30 mg PO DINNER #0 11/18/20
== END 2020-11-18 16:57 | disposition home health service (06) ==
LOC: ED 19:13 → MS3 20:29
PROVIDERS: Student in an Organized Health Care Education/Training Program; Admitting Provider Family Medicine; Emergency Provider Emergency Medicine; PCP Internal Medicine
DX: R07.89 Other chest pain (principal); N17.9 Acute kidney failure, unspecified; E87.6 Hypokalemia; S09.90XA Unspecified injury of head, initial encounter; W19.XXXA Unspecified fall, initial encounter; Y93.9 Activity, unspecified; Y92.199 Unspecified place in other specified residential institution as the place of occurrence of the external cause; I11.0 Hypertensive heart disease with heart failure; I25.10 Atherosclerotic heart disease of native coronary artery without angina pectoris; E78.5 Hyperlipidemia, unspecified; E03.9 Hypothyroidism, unspecified; K74.60 Unspecified cirrhosis of liver; K75.81 Nonalcoholic steatohepatitis (NASH); F20.9 Schizophrenia, unspecified; I50.32 Chronic diastolic (congestive) heart failure; I27.20 Pulmonary hypertension, unspecified; K21.9 Gastro-esophageal reflux disease without esophagitis; D64.9 Anemia, unspecified; E11.65 Type 2 diabetes mellitus with hyperglycemia; E11.649 Type 2 diabetes mellitus with hypoglycemia without coma; R29.700 NIHSS score 0; Z79.899 Other long term (current) drug therapy; Z79.4 Long term (current) use of insulin; Z79.82 Long term (current) use of aspirin; Z79.02 Long term (current) use of antithrombotics/antiplatelets; I25.2 Old myocardial infarction; E66.9 Obesity, unspecified; Z68.30 Body mass index [BMI] 30.0-30.9, adult; Z87.891 Personal history of nicotine dependence; Z95.5 Presence of coronary angioplasty implant and graft
CPT/HCPCS: 70450; 73502; 80048; 81001; 82962; 83735; 84484; 85025; 92507; 92526; 92610; 93005; 96361; 96365; 96366; 96372; 96375; 97110; 97161; 97165; 97530; 97535; 99218; 99285; J7030; J7050; A4216; G0378; J2405

== ENCOUNTER 2020-11-21 03:25 | Inpatient (IN) | payer MEDICARE, MEDICAID, SELFPAY ==
[2020-11-21] VITALS (19 sets, daily range): BP systolic 99–129; BP diastolic 44–58; PULSE 66–90; RESP 15–22; TEMP 36.6–37; O2SAT 95–99; BMI 32.5; BMI 31.4; BMI 31.5
--- NOTE | 2020-11-21 03:46 | EKG12_ITS ---
Test Reason : REPEAT-CHEST PAIN Blood Pressure : / mmHG Vent. Rate : 086 BPM Atrial Rate : 086 BPM P-R Int : 124 ms QRS Dur : 130 ms QT Int : 446 ms P-R-T Axes : -05 -42 121 degrees QTc Int : 533 ms Normal sinus rhythm Left axis deviation Left ventricular hypertrophy with QRS widening and repolarization abnormality Abnormal ECG Confirmed by SEVERINO CHEW, LIN ([id number]), make up editor LAURIE MCCLELLAND ([id number]) on 11/23/2020 8:51:17 AM Referred By: LAURA Confirmed By:RICHIE HAQ MD
[2020-11-21] MEDS: Metoclopramide 10 MG/2 ML Vial 5 MG IV (04:01)
[2020-11-21 04:07] LABS: Absolute Lymphocyte Count 1.22 X10^3/uL (0.83-4.51); Absolute Neutrophil Count 1.8 X10^3/uL (2.0-7.7); Basophil# 0.01 X10^3/uL; Basophil% 0.3 % (0-1); Eosinophil# 0.15 X10^3/uL; Eosinophils% 4.2 % (0-5); Hematocrit 23.4 % (37-47); Hemoglobin 7.5 g/dL (12.0-15.0); Lymphocyte # 1.22 X10^3/ul (0.83-4.51); Lymphocyte % 34.5 % (19-41); Mean Corp Hgb Conc 32.1 g/dL (32-36); Mean Corpuscular Volume 96.7 fL (81-99); Mean Platelet Vol. 10.2 fl (6.2-12.0); Monocyte# 0.32 X10^3/uL; NRBC Flagged by Analyzer 0 % (0-5); Neutrophil # 1.83 X10^3/uL (2.7-7.7); Neutrophil % 51.7 % (47-70); Platelet Count 126 K/mm3 (150-450); RBC Distribution Width SD 56.6 fl (35.1-43.9); Red Blood Count 2.42 M/mm3 (4.2-5.4); White Blood Count 3.5 K/mm3 (4.4-11.0)
[2020-11-21 04:12] LABS: Mucous, Urine 0 SEEN /hpf (<or=2+); Red Blood Cells-Urine 0 SEEN /hpf (0-5); Squamous Epithelial Cells - UA 0 SEEN /hpf (5-10)
[2020-11-21 04:20] LABS: Anion Gap 7 (5-15); BUN 47 mg/dL (7-18); BUN/Creat Ratio 35.3 RATIO (10-20); Chloride 100 mmol/L (98-107); Creatinine, Serum 1.33 mg/dL (0.55-1.02); EST Glomerular Filtration Rate 41 mL/min (>60); Est Glom Filt Rate - Afr Amer 49 mL/min (>60); Estimated Creatinine Clearance 29.85 ml/min; Glucose 188 mg/dL (74-106); Potassium 3.9 mmol/L (3.5-5.1); Sodium Level 136 mmol/L (136-145)
[2020-11-21 04:25] LABS: Glucose, Dipstick Normal (Normal); Ketone-Dipstick Negative (Negative); Leukocyte Esterase-Dipstick 500 /ul (Negative); Nitrite-Dipstick Negative (Negative); Occult Blood-Urine 10 /ul (Negative); Protein-Dipstick Negative (Negative); Specific Gravity, Urine 1.015 (1.002-1.030); Urine Bilirubin Dipstick Negative (Negative); Urine Urobilinogen Normal (Normal)
[2020-11-21 05:14] LABS: Color, Urine Yellow (Yellow); Urine Clarity Sl Cldy (Clear)
[2020-11-21 05:18] LABS: Bacteria 3+ /hpf (None Seen); White Blood Cells >100 SEEN /hpf (0-5)
--- NOTE | 2020-11-21 05:25 | ED.DCSUM_ITS ---
History of Present Illness Chief Complaint: Nausea/Vomiting Informant: Patient Onset: Yesterday Context: Gradual Onset Current Severity: Mild Maximum Severity: Moderate Narrative: Patient presents secondary to weakness and nausea. Patient states that she was admitted to the hospital November 13 with weakness. She is currently in assisted living. She states over the past day she has developed nausea with poor p.o. appetite. She still feels generally weak. She denies chest pain, shortness of breath, or cough. No focal abdominal pain. - Past Medical History (1) CAD (coronary artery disease) Status: Chronic (2) Chronic diastolic (congestive) heart failure Status: Chronic (3) Diabetes mellitus, type II Status: Chronic (4) Essential hypertension Status: Chronic (5) History of coronary artery stent placement Status: Chronic Comment: PCI of ostial and mid LCx ISR with laser atherectomy, balloon angioplasty 08/20/18 PTCA and laser atherectomy-Prox LCx 02/03/2018; POBA-ostial/prox LCx 11/09/2017; UOV-HZN-Nbiz LCx w/ 2.5 x 20 mm Synergy Stent, RAYMON-Distal LM-into the Ostium of LAD w/ 4.0 x 16 mm Synergy Stent 07/05/2017; POBA-Ostium and Prox LCx 04/19/2017; PCI-Rotational Zuygndnmlki-SSU-TJR with a 2.75 x 38 mm Promus Premier drug eluting stent 12/15/13; RAYMON-Mid RPLB w/ 3.0 x 28 mm Cypher and Prox RPLB w/ 3.0 x 8 mm Cypher, RAYMON- Ostium RPDA w/ 2.5 x 28 mm Cypher 09/17/2007 (6) Hyperlipidemia Status: Chronic (7) Hypothyroidism Status: Chronic (8) 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) Status: Chronic (9) Non-rheumatic aortic stenosis Status: Chronic (10) Schizophrenia Status: Chronic (11) History of non-ST elevation myocardial infarction (NSTEMI) Status: Resolved Comment: 08/16/2018, 06/2019, 07/25/2019, 02/10/2020 Past Medical History - Allergies and Home Meds Allergies/Adverse Reactions: Allergies aripiprazole [From Abilify] Allergy (Intermediate, Verified 11/21/20 03:29) it over powered me lisinopril Allergy (Intermediate, Verified 11/21/20 03:29) Unknown atorvastatin calcium [From Lipitor] Adverse Reaction (Verified 11/21/20 03:29) Unknown rosiglitazone maleate [From Avandia] Adverse Reaction (Verified 11/21/20 03:29) Other Prior records reviewed: Yes Surgical History: angioplasty, appendectomy, cholecystectomy, tonsillectomy, - - Spinal fusion Lives: - - Assisted living Smoking Status: Never smoker - Family History Maternal Family History: Family History (Last Reviewed 11/21/20 @ 06:[address] Reji Galindo MD) Mother CAD (coronary artery disease) Father CAD (coronary artery disease) Family History: Reports: Heart Disease, - Paternal Family History: Family History (Last Reviewed 11/21/20 @ 06:[address] Reji Galindo MD) Mother CAD (coronary artery disease) Father CAD (coronary artery disease) Family History: Reports: Heart Disease Review of Systems General: Denies: Chills, Fever Eyes: Denies: Visual changes - bilaterally ENT: Denies: Bilateral ear pain Cardiovascular: Denies: Chest pain Respiratory: Denies: Dyspnea, Cough Gastrointestinal: Reports: Nausea. Denies: Abdominal pain, Vomiting, Diarrhea Genitourinary: Denies: Dysuria Musculoskeletal: Denies: Swelling, Extremity Pain Skin: Denies: Rash Neurological: Denies: Headache Hematologic: Denies: Easy bruising, Easy bleeding Allergy: Denies: Uticaria Physical Exam Vital Signs/Narrative: Vital Signs Temp Pulse Resp BP Pulse Ox 11/21/20 03:26 98.6 F 70 18 129/55 H 99 Inital Vital Signs reviewed: Yes General: Well nourished, Well developed Head: Normocephalic Neck: Supple Cardiovascular: Regular rate, Regular rhythm, Irregular Respiratory: No distress, CTA bilaterally Abdomen: Soft, Nontender Extremities: - - Chronic venous skin changes bilateral lower extremities Neurological: Alert, Oriented x3, - - No focal neurologic deficits Psychological: Normal affect Diagnostic/Tx/Re-eval Laboratory Results 11/21/20 11/21/20 11/21/20 03:38 03:38 04:05 WBC 3.5 L RBC 2.42 L Hgb 7.5 L Hct 23.4 L MCV 96.7 MCH 31.0 MCHC 32.1 RDW Std Deviation 56.6 H RDW Coeff of Conchis 16.0 H Plt Count 126 L MPV 10.2 Immature Gran % (Auto) 0.300 Neut % (Auto) 51.7 Lymph % (Auto) 34.5 Christian % (Auto) 9.0 Eos % (Auto) 4.2 Baso % (Auto) 0.3 Absolute Neuts (auto) 1.8 L Absolute Lymphs (auto) 1.22 Nucleated RBC % 0 Sodium 136 Potassium 3.9 Chloride 100 Carbon Dioxide 29.0 Anion Gap 7 BUN 47 H Creatinine 1.33 H Estim Creat Clear Calc 29.85 Est GFR (MDRD) Af Amer 49 L Est GFR (MDRD) Non-Af 41 L BUN/Creatinine Ratio 35.3 H Glucose 188 H Calcium 9.0 Urine Color Yellow Urine Clarity Sl Cldy Urine pH 6.0 Ur Specific [place] 1.015 Urine Protein Negative Urine Glucose (UA) Normal Urine Ketones Negative Urine Occult Blood 10 H Urine Nitrite Negative Urine Bilirubin Negative Urine Urobilinogen Normal Ur Leukocyte Esterase 500 H Urine RBC 0 SEEN Urine WBC >100 SEEN Ur Squamous Epith Cells 0 SEEN Urine Bacteria 3+ Urine Mucus 0 SEEN - EKG Initial EKG Interpretation: Sinus Rhythm - Sinus at 70 with LVH and repull abnormalities. No significant change when compared to recent EKGs. - Medical Decision Making Patient's QTC is 503, therefore she was given Reglan for nausea. Blood work is reviewed. Hemoglobin has dropped again to 7.5, 2 g drop in the last 6 days. Patient reportedly has history of chronic anemia and requires frequent blood transfusions. She states that she has had upper and lower scopes done with no definitive source of blood loss. Rectal exam was performed and stool guaiac is pending. Patient is ordered 2 units PRBCs. Patient also has evidence of UTI. Urine culture is ordered and she is given a dose of Rocephin. Patient be discussed with hospitalist regarding admission for treatment of UTI and transfusion. Addendum: After the patient was discussed with hospitalist for admission nursing staff brought another EKG to me. They stated that when they hung the antibiotic she was complaining of some chest pain. This revealed sinus rhythm at 82 with repol abnormalities including lateral ST depression. This is slightly more pronounced when compared to the prior study of the same date. Patient was given aspirin and troponin was checked. This returns at 0.12, which is consistent with her baseline. Just prior to the patient going upstairs she again was complaining of some chest pain and another EKG was obtained. This is sinus rhythm at 86 with continued changes consistent with LVH and repol. At bedside patient states that she did will get chest pain when she gets anemic. 2 units of blood have been ordered for her. ED Disposition - Plan for ED Patient: Disposition: Acute Care Hospital [facility] Diagnosis: Anemia, UTI (urinary tract infection), Weakness
[2020-11-21] MEDS: Ceftriaxone 1 GM/50 ML BAG IV (05:35)
--- NOTE | 2020-11-21 05:56 | PCM.HP.STD ---
Problem List (1) CAD (coronary artery disease) Status: Chronic (2) Hypokalemia Status: Resolved (3) Vomiting Status: Resolved (4) YOSELIN (acute kidney injury) Status: Acute (5) Acute exacerbation of CHF (congestive heart failure) Status: Chronic (6) UTI (urinary tract infection) Status: Acute (7) Generalized weakness Status: Acute (8) Atherosclerotic heart disease [place] coronary artery w/angina pectoris Status: Chronic Qualifiers: Three Affiliated vs. transplanted heart: [place] heart Qualified Code(s): I25.119 - Atherosclerotic heart disease of [place] coronary artery with unspecified angina pectoris Comment: (9) History of non-ST elevation myocardial infarction (NSTEMI) Status: Resolved Comment: 08/16/2018, 06/2019, 07/25/2019, 02/10/2020 (10) History of coronary artery stent placement Status: Chronic Comment: PCI of ostial and mid LCx ISR with laser atherectomy, balloon angioplasty 08/20/18 PTCA and laser atherectomy-Prox LCx 02/03/2018; POBA-ostial/prox LCx 11/09/2017; KGX-SPF-Xifs LCx w/ 2.5 x 20 mm Synergy Stent, RAYMON-Distal LM-into the Ostium of LAD w/ 4.0 x 16 mm Synergy Stent 07/05/2017; POBA-Ostium and Prox LCx 04/19/2017; PCI-Rotational Gdtwhqgllku-XJO-HTY with a 2.75 x 38 mm Promus Premier drug eluting stent 12/15/13; RAYMON-Mid RPLB w/ 3.0 x 28 mm Cypher and Prox RPLB w/ 3.0 x 8 mm Cypher, RAYMON- Ostium RPDA w/ 2.5 x 28 mm Cypher 09/17/2007 (11) Chronic diastolic (congestive) heart failure Status: Chronic (12) Non-rheumatic aortic stenosis Status: Chronic (13) Essential hypertension Status: Chronic (14) Hyperlipidemia Status: Chronic Qualifiers: Hyperlipidemia type: unspecified Qualified Code(s): E78.5 - Hyperlipidemia, unspecified (15) Diabetes mellitus, type II Status: Chronic Qualifiers: Diabetes mellitus [facility] insulin 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 Diabetes mellitus complication status: with unspecified complications (16) Hypothyroidism Status: Chronic Qualifiers: Hypothyroidism type: unspecified Qualified Code(s): E03.9 - Hypothyroidism, unspecified (17) Schizophrenia Status: Chronic Qualifiers: Schizophrenia type: unspecified Qualified Code(s): F20.9 - Schizophrenia, unspecified (18) Anemia Status: Chronic Comment: Follows with Dr Son (19) 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) Status: Chronic (20) GI bleed Status: Resolved History of Present Illness Date of Admission: 11/21/20 Chief Complaint: weakness and tremors The patient is a 80 year old F who lives at an assistance nursing facility with a significant history of CAD status post stent; hypertension; diabetes mellitus; liver cirrhosis; schizophrenia and hypothyroidism who presents to the emergency department with persistent recurrent of tremors and weakness that started while packing boxes. Her symptoms started a day before presentation. Associated with her symptoms is nausea. While at emergency department patient complained of substernal chest pain. Patient was at our hospital due to same cluster of symptoms on 10/20/2020 and discharged on 10/22/2020. Also he was admitted back on 11/13/2020 and discharged on 11/18/2020 for debility; atypical chest pain; YOSELIN and hypokalemia. Past Medical History Past Medical History (Chronic Problems): Chronic Problems (Last Reviewed 11/21/20 @ 06:[address] Reji Galindo MD) CAD (coronary artery disease) (Chronic) Acute exacerbation of CHF (congestive heart failure) (Chronic) Atherosclerotic heart disease [place] coronary artery w/angina pectoris (Chronic) History of coronary artery stent placement (Chronic 08/20/18) PCI of ostial and mid LCx ISR with laser atherectomy, balloon angioplasty 08/20/18 PTCA and laser atherectomy-Prox LCx 02/03/2018; POBA-ostial/prox LCx 11/09/2017; BWM-PAX-Ojzj LCx w/ 2.5 x 20 mm Synergy Stent, RAYMON-Distal LM-into the Ostium of LAD w/ 4.0 x 16 mm Synergy Stent 07/05/2017; POBA-Ostium and Prox LCx 04/19/2017; PCI-Rotational Ctqjtmpnvsq-UPE-AHO with a 2.75 x 38 mm Promus Premier drug eluting stent 12/15/13; RAYMON-Mid RPLB w/ 3.0 x 28 mm Cypher and Prox RPLB w/ 3.0 x 8 mm Cypher, RAYMON- Ostium RPDA w/ 2.5 x 28 mm Cypher 09/17/2007 Chronic diastolic (congestive) heart failure (Chronic) Non-rheumatic aortic stenosis (Chronic) Essential hypertension (Chronic) Hyperlipidemia (Chronic) Diabetes mellitus, type II (Chronic) Hypothyroidism (Chronic) Schizophrenia (Chronic) Anemia (Chronic) Follows with Dr Son 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) Medical History: Medical History (Last Reviewed 11/21/20 @ 06:[address] Reji Galindo MD) Atherosclerotic heart disease [place] coronary artery w/angina pectoris (Chronic) I25.119 History of non-ST elevation myocardial infarction (NSTEMI) (Resolved) Onset Date: 03/26/20 I25.2 08/16/2018, 06/2019, 07/25/2019, 02/10/2020 Chronic diastolic (congestive) heart failure (Chronic) I50.32 Non-rheumatic aortic stenosis (Chronic) I35.0 Essential hypertension (Chronic) I10 Hyperlipidemia (Chronic) E78.5 Diabetes mellitus, type II (Chronic) E11.9 Hypothyroidism (Chronic) E03.9 Schizophrenia (Chronic) F20.9 Anemia (Chronic) D64.[address] Son 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) K75.81, K74.60 GI bleed (Resolved) Onset Date: 05/07/20 K92.2 Obesity (BMI 30.0-34.9) E66.9 Pancytopenia D61.818 Thrombocytopenia D69.6 Acute respiratory failure with hypoxia J96.01 Acute respiratory failure with hypoxia and hypercapnia J96.01, J96.02 Lactic acidosis E87.2 Postoperative haemorrhage Mitral valve insufficiency (Inactive) I34.0 NSTEMI (non-ST elevated myocardial infarction) (Inactive) I21.4 Non-rheumatic mitral regurgitation (Inactive) I34.0 Nonrheumatic tricuspid valve regurgitation (Inactive) I36.1 Tricuspid valve insufficiency (Inactive) I07.1 Allergies aripiprazole [From Abilify] Allergy (Intermediate, Verified 11/21/20 03:29) it over powered me lisinopril Allergy (Intermediate, Verified 11/21/20 03:29) Unknown atorvastatin calcium [From Lipitor] Adverse Reaction (Verified 11/21/20 03:29) Unknown rosiglitazone maleate [From Avandia] Adverse Reaction (Verified 11/21/20 03:29) Other Home Medications: Ambulatory Orders Medication Instructions Recorded Aspirin [Aspirin, Baby] 81 mg PO DAILY@0800 06/30/17 Nitroglycerin [Nitrostat] 0.4 mg SL PRN PRN 06/30/17 Multivitamins,Therapeutic 1 tab PO DAILY 02/01/18 [Multivitamin] ascorbic acid (vitamin C) 500 mg 500 mg PO DAILY 09/13/18 tablet Insulin Glargine,Hum.rec.anlog 34 unit SC DAILY 04/23/19 [[place] Solostar] Carvedilol [Coreg] 3.125 mg PO BIDCM 06/24/19 Cholecalciferol (Vitamin D3) 5,000 unit PO DAILY 06/24/19 [Vitamin D3] Levothyroxine [Synthroid] 100 mcg PO DAILY 07/24/19 Folic Acid 1 mg PO DAILY 02/10/20 Insulin Regular, Human [Humulin R] 5 unit SQ TIDCM 02/10/20 losartan 25 mg tablet 25 mg PO DAILY #30 tab 04/29/20 mirabegron 25 mg tablet,extended 25 mg PO DAILY 06/17/20 release 24 hr albuterol sulfate 90 mcg/actuation 2 puff INHALATION Q6H PRN 08/11/20 aerosol inhaler pravastatin 80 mg tablet 80 mg PO DAILY #90 tab 08/13/20 Clopidogrel Bisulfate [Clopidogrel] 75 mg PO DAILY 10/20/20 Pantoprazole Sodium [Protonix] 40 mg PO DAILY 10/20/20 Ranolazine [Ranolazine ER] 1,000 mg PO BID 10/20/20 Haloperidol [Haldol] 1 mg PO BID PRN 11/13/20 Spironolactone 25 mg PO QODAY 11/13/20 Albuterol IH (ProAir) [Proair Hfa] 2 puff INHALATION Q4H PRN PRN 11/14/20 Pnv No.95/Ferrous Fum/Folic AC 1 each PO 11/14/20 [ Caplet] Polyethylene Glycol 3350 [Miralax] 17 gm PO DAILY PRN 11/14/20 Acetaminophen [Tylenol Tablet] 650 mg PO Q6H PRN PRN tablet 11/18/20 Isosorbide Mononitrate [Isosorbide 30 mg PO DINNER #0 11/18/20 Mononitrate ER] Surgical History: Surgical History (Last Reviewed 11/21/20 @ 06:[address] Reji Galindo MD) History of coronary artery stent placement (Chronic) Onset Date: 08/20/18 Z95.5 PCI of ostial and mid LCx ISR with laser atherectomy, balloon angioplasty 08/20/18 PTCA and laser atherectomy-Prox LCx 02/03/2018; POBA-ostial/prox LCx 11/09/2017; VCW-KBT-Ikjj LCx w/ 2.5 x 20 mm Synergy Stent, RAYMON-Distal LM-into the Ostium of LAD w/ 4.0 x 16 mm Synergy Stent 07/05/2017; POBA-Ostium and Prox LCx 04/19/2017; PCI-Rotational Tktxpmenepa-CYX-ITE with a 2.75 x 38 mm Promus Premier drug eluting stent 12/15/13; RAYMON-Mid RPLB w/ 3.0 x 28 mm Cypher and Prox RPLB w/ 3.0 x 8 mm Cypher, RAYMON- Ostium RPDA w/ 2.5 x 28 mm Cypher 09/17/2007 History of appendectomy Z90.49 History of cholecystectomy Z90.49 History of colonoscopy Onset Date: 04/2020 Z98.890 History of esophagogastroduodenoscopy (EGD) Onset Date: 04/2020 Z98.890 History of left heart catheterization Onset Date: 06/25/19 Z98.890 History of tonsillectomy and adenoidectomy Z98.890 History of spinal fusion (Inactive) Z98.1 anterior Surgical History: angioplasty, appendectomy, cholecystectomy, tonsillectomy, - - Spinal fusion Psychiatric History: No pertinent psych hx 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 Reji Galindo MD) Mother CAD (coronary artery disease) Father CAD (coronary artery disease) History Items: Heart Disease, - Paternal Family History: Family History (Last Reviewed 11/21/20 @ 06:[address] Reji Galindo MD) Mother CAD (coronary artery disease) Father CAD (coronary artery disease) History Items: Heart Disease Review of Systems Constitutional: Reports: Weakness. Denies: Chills, Fever, Weight Change HEENT: Denies: Head Aches, Sinus Congestion, Sinus Drainage Cardiovascular: Reports: Chest Pain. Denies: Palpitations Respiratory: Denies: Cough, Shortness of breath at rest, Sputum production Gastrointestinal: Reports: Nausea. Denies: Abdominal Pain, Vomiting Genitourinary: Denies: Dysuria Musculoskeletal: Denies: Joint Pain, Joint Tenderness Skin: Denies: Rash, Wounds Neurological: Reports: Tremor. Denies: Focal weakness, Numbness, Tingling Psychiatric: Denies: Anxiety, Depression, Homicidal Ideations, Suicidal Ideations Hematologic/ Lymphatic: Denies: Easy Bruising, Easy Bleeding VTE Information - Inpt Only VTE Present on Admission: No VTE Mechan Device Prophylaxis: SCD's VTE Pharm Prophylaxis ordered?: No Patient Problems: Active and Suspected Problems (Last Reviewed 11/21/20 @ 06:[address] Reji Galindo MD) YOSELIN (acute kidney injury) (Acute) UTI (urinary tract infection) (Acute) Generalized weakness (Acute) - Physical Exam Vitals/I&O's: Vital Signs Temp Pulse Resp BP Pulse Ox 98.6 F 81 22 H 123/58 H 98 11/21/20 03:26 11/21/20 05:40 11/21/20 05:40 11/21/20 05:40 11/21/20 05:40 Oxygen Delivery Method Room Air Weight: 88.9 kg Body Mass Index (BMI) 32.5 Finger Stick Blood Glucose 270 General: Alert, Oriented x3, Cooperative HEENT: Atraumatic, PERRLA, EOMI, Normocephalic Neck: Supple, No JVD, Negative Carotid Bruits Lungs: Clear to auscultation, Normal air movement Cardiovascular: Regular rate, Normal S1, Normal S2, No murmurs Abdomen: Bowel Sounds Present, Soft, Non Tender Extremities: Capillary Refill Less than 3 Seconds, Edema - Mild; bilateral legs and feet left worse than right. Skin: No rashes, No breakdown Musculoskeletal: No Tenderness to Palpation of Joints or Extremities Neurological: Cranial nerves II-XII grossly intact Psych/Mental Status: Normal Affect, Appropriate Laboratory Results 11/21/20 03:38: WBC 3.5 L, RBC 2.42 L, Hgb 7.5 L, Hct 23.4 L, MCV 96.7, MCH 31.0, MCHC 32.1, RDW Std Deviation 56.6 H, RDW Coeff of [place] 16.0 H, Plt Count 126 L, MPV 10.2, Immature Gran % (Auto) 0.300, Neut % (Auto) 51.7, Lymph % (Auto) 34.5, [place] % (Auto) 9.0, Eos % (Auto) 4.2, Baso % (Auto) 0.3, Absolute Neuts (auto) 1.8 L, Absolute Lymphs (auto) 1.22, Nucleated RBC % 0 11/21/20 03:38: Sodium 136, Potassium 3.9, Chloride 100, Carbon Dioxide 29.0, Anion Gap 7, BUN 47 H, Creatinine 1.33 H, Estim Creat Clear Calc 29.85, Est GFR (MDRD) Af Amer 49 L, Est GFR (MDRD) Non-Af 41 L, BUN/Creatinine Ratio 35.3 H, Glucose 188 H, Calcium 9.0 11/21/20 04:05: Urine Color Yellow, Urine Clarity Sl Cldy, Urine pH 6.0, Ur Specific [place] 1.015, Urine Protein Negative, Urine Glucose (UA) Normal, Urine Ketones Negative, Urine Occult Blood 10 H, Urine Nitrite Negative, Urine Bilirubin Negative, Urine Urobilinogen Normal, Ur Leukocyte Esterase 500 H, Urine RBC 0 SEEN, Urine WBC >100 SEEN, Ur Squamous Epith Cells 0 SEEN, Urine Bacteria 3+, Urine Mucus 0 SEEN 11/21/20 05:29: Blood Type Pending, Antibody Screen Pending, Crossmatch See Detail Assessment/Plan All Active Problems (Last Reviewed 11/21/20 @ 06:[address] Reji Galindo MD) Hypokalemia (Resolved) Vomiting (Resolved) YOSELIN (acute kidney injury) (Acute) UTI (urinary tract infection) (Acute) Generalized weakness (Acute) History of non-ST elevation myocardial infarction (NSTEMI) (Resolved 03/26/20) GI bleed (Resolved 05/07/20) The patient is a 80 year old F with a significant history of CAD status post stent; hypertension; diabetes mellitus; liver cirrhosis; schizophrenia and hypothyroidism who presents emergency department with a 2-day history of tremors; unsteady gait; inability to care for self; dysuria; burning with urination; chest pain; who was found to have worsening of anemia; elevated troponin but within baseline and elevated creatinine above her baseline. Acute UTI Review of emergency department labs showed abnormal urinalysis Started on ceftriaxone IV at emergency department and continued. Trend CBC. Chest pain and prolonged QTC Repeat EKG at emergency department showed more ST depressions in leads V4 to V6 compared to initial EKG. Patient with prolonged QTC avoid QTC prolongation drugs. Aspirin 324 mg given at the emergency department. Trend troponin Continue aspirin and Plavix. Avoid QTC prolongation drugs. Reglan was given to emergency department for nausea. As needed Compazine IV ordered. Acute on chronic symptomatic anemia Review of emergency department labs showed hemoglobin of 7.5. Review of old records show that patient's hemoglobin a week ago was 9.4 to 10.4. Reportedly patient has had endoscopy and colonoscopy with Dr. Hatfield . Patient follows up with Dr. Son; otology/oncologist. The etiology of the anemia remains unclear. Stool for occult blood ordered at emergency department.. 2 units of packed red blood cells was ordered at emergency department to be transfused. Occult stools ordered emergency department returned negative.. H&H after second unit of blood have been transfused CBC in a.m. YOSELIN on chronic kidney disease stage III CKD Likely from Diabetic nephropathy Baseline creatinine of around 1. Creatinine on admission was 1.66. BUN is 47. BUN over creatinine is 21.7. Likely prerenal 2 units of packed red blood cells been ordered to be transfused. Of note patient has a history of congestive heart failure Hold home diuretics CAROL receptor blockers. Avoid other nephrotoxins. Trend BMP. Diabetes mellitus Patient with hyperglycemia on presentation Accu-Chek QA [facility] with correction scale insulin ordered. General weakness/debility PT and OT to work with patient Chronic heart failure with preserved ejection fraction Echocardiogram on 02/11/2020 showed estimated ejection fraction of 55%. Stage I diastolic dysfunction was noted. Anterior apex was mildly hypokinetic. Lateral apex was mildly hypokinetic. Left atrium was moderately enlarged. Mild mitral valve insufficiency was noted. Trivial tricuspid valve insufficiency was noted. Right ventricular systolic pressure was 21mmHg. Mild aortic stenosis was noted. Currently with chest pain. Transfuse blood. Hold home diuretics for now secondary to YOSELIN Obesity: BMI: 32.2. Complicates care. Lifestyle modification recommended. DVT Prophylaxis SCD ordered. Will avoid chemical thromboprophylaxis secondary to acute on chronic anemia. Inpatient E&M: [id number] Init Hosp L3
--- NOTE | 2020-11-21 06:01 | EKG12_ITS ---
Test Reason : CP Blood Pressure : / mmHG Vent. Rate : 082 BPM Atrial Rate : 082 BPM P-R Int : 152 ms QRS Dur : 130 ms QT Int : 454 ms P-R-T Axes : 004 -43 115 degrees QTc Int : 530 ms Normal sinus rhythm Left axis deviation Left ventricular hypertrophy with QRS widening and repolarization abnormality Abnormal ECG Confirmed by SEVERINO CHEW, LIN ([id number]), continuity editor LAURIE MCCLELLAND ([id number]) on 11/23/2020 8:53:52 AM Referred By: DR SANCHEZ Confirmed By:RICHIE HAQ MD
[2020-11-21] MEDS: Aspirin 81 MG TAB.CHEW 324 MG PO (06:07)
[2020-11-21 09:06] LABS: Bedside Glucose 242 mg/dL (70-110)
[2020-11-21 12:31] LABS: Bedside Glucose 274 mg/dL (70-110)
[2020-11-21] MEDS: Insulin Lispro 100 UNIT/ML INSULN.PEN SC ×3 (13:38→21:39)
[2020-11-21] MEDS: Enoxaparin 40 MG/0.4 ML Syringe SC (13:38)
--- NOTE | 2020-11-21 13:52 | NURSING ---
Attempted to contact Phi, patient's son with an update. No answer. Message left to return call [phone] for update.
--- NOTE | 2020-11-21 15:56 | PCM.HOSP.N ---
Hospitalist Note Mrs. Zaidi is an 80-year-old white female who presented to the emergency department on 11/21/2020 secondary to weakness and tremors. She was recently hospitalized here from 11/13 to 11/18/2020 after falling. The initial plan was for her to go to a skilled facility but by discharge she was able to ambulate far enough to go back to her assisted living facility. She reported on admission that her symptoms started while she was packing boxes. She complained of some coinciding nausea and substernal chest pain. She has had multiple admissions and emergency room visits this year, this being her sixth. After questioning she also reported an unsteady gait, the inability to care for herself, and dysuria. UA in the emergency department looked as if it might be infected with positive leuk esterase, greater than 100 white blood cells and 3+ bacteria. Cultures are pending and she was placed on antibiotics. Her cardiac enzymes were also cycled. She she always has baseline troponin elevation in her initial troponin was 0.126 which is consistent with her baseline elevation but her repeat troponin increased to 0.864. Her last cardiac catheterization was in 2018 and showed mild global LV dysfunction with an EF of 45 to 50% and single-vessel CAD of the left circumflex with in-stent restenosis and nonobstructive coronary disease of the left main, LAD and RCA. At that time, she was transferred to [facility] for immediate PCI. Upon my evaluation today she was not having any further chest pain. With her troponin elevation cardiology was consulted she will be maintained on her aspirin and therapeutic Lovenox was initiated until she can be seen by cardiology. She was maintained on her Plavix, Coreg, spironolactone, pravastatin, and ranolazine and losartan. With her YOSELIN I will hold her metolazone and Lasix. I will make her n.p.o. after midnight for possible cardiac catheterization tomorrow. Continue ceftriaxone until cultures and sensitivities are resulted.
[2020-11-21] MEDS: Isosorbide Mononitrate 30 MG Tablet PO (18:06)
[2020-11-21] MEDS: Carvedilol 3.125 MG TABLET PO (18:06)
[2020-11-21 18:31] LABS: Bedside Glucose 219 mg/dL (70-110)
[2020-11-21 18:35] LABS: Hematocrit 29.9 % (37-47); Hemoglobin 9.8 g/dL (12.0-15.0)
--- NOTE | 2020-11-21 18:57 | NURSING ---
Called Lauren nurse at [facility] with patient update.
[2020-11-21] MEDS: Ranolazine 500 MG Tablet 1000 MG PO (21:38)
[2020-11-21] MEDS: Pravastatin 80 MG Tablet PO (21:39)
[2020-11-21 21:45] LABS: Bedside Glucose 282 mg/dL (70-110)
--- NOTE | 2020-11-21 23:12 | PCM.CONS.C ---
Reason for Consult History of Present Illness: The patient is a 80 year old F [] Past Medical History Allergies/Adverse Reactions: Allergies aripiprazole [From Abilify] Allergy (Intermediate, Verified 11/21/20 03:29) it over powered me lisinopril Allergy (Intermediate, Verified 11/21/20 03:29) Unknown atorvastatin calcium [From Lipitor] Adverse Reaction (Verified 11/21/20 03:29) Unknown rosiglitazone maleate [From Avandia] Adverse Reaction (Verified 11/21/20 03:29) Other Home Medications: Ambulatory Orders Medication Instructions Recorded Aspirin [Aspirin, Baby] 81 mg PO DAILY@0800 06/30/17 Nitroglycerin [Nitrostat] 0.4 mg SL PRN PRN 06/30/17 ascorbic acid (vitamin C) 500 mg 500 mg PO DAILY 09/13/18 tablet Insulin Glargine,Hum.rec.anlog 34 unit SC DAILY 04/23/19 [Toujeo Solostar] Carvedilol [Coreg] 3.125 mg PO BIDCM 06/24/19 Cholecalciferol (Vitamin D3) 5,000 unit PO DAILY 06/24/19 [Vitamin D3] Levothyroxine [Synthroid] 100 mcg PO DAILY 07/24/19 Folic Acid 1 mg PO DAILY 02/10/20 Insulin Regular, Human [Humulin R] 5 unit SQ TIDCM 02/10/20 losartan 25 mg tablet 25 mg PO DAILY #30 tab 04/29/20 mirabegron 25 mg tablet,extended 25 mg PO DAILY 06/17/20 release 24 hr pravastatin 80 mg tablet 80 mg PO DAILY #90 tab 08/13/20 Clopidogrel Bisulfate [Clopidogrel] 75 mg PO DAILY 10/20/20 Pantoprazole Sodium [Protonix] 40 mg PO DAILY 10/20/20 Ranolazine [Ranolazine ER] 1,000 mg PO BID 10/20/20 Haloperidol [Haldol] 1 mg PO BID PRN 11/13/20 Spironolactone 25 mg PO QODAY 11/13/20 Albuterol IH (ProAir) [Proair Hfa] 2 puff INHALATION Q4H PRN PRN 11/14/20 Pnv No.95/Ferrous Fum/Folic AC 1 each PO DAILY 11/14/20 [ Caplet] Polyethylene Glycol 3350 [Miralax] 17 gm PO DAILY PRN 11/14/20 Furosemide 40 mg PO BID 11/21/20 Isosorbide Mononitrate [Isosorbide 30 mg PO DINNER 11/21/20 Mononitrate ER] Metolazone 2.5 mg PO WEFR 11/21/20 Potassium Chloride 20 meq PO DAILY 11/21/20 Past Medical History (Chronic Problems): Chronic Problems (Last Reviewed 11/21/20 @ 06:[address] Reji Galindo MD) CAD (coronary artery disease) (Chronic) Acute exacerbation of CHF (congestive heart failure) (Chronic) Atherosclerotic heart disease [place] coronary artery w/angina pectoris (Chronic) History of coronary artery stent placement (Chronic 08/20/18) PCI of ostial and mid LCx ISR with laser atherectomy, balloon angioplasty 08/20/18 PTCA and laser atherectomy-Prox LCx 02/03/2018; POBA-ostial/prox LCx 11/09/2017; JEV-EYP-Ujiv LCx w/ 2.5 x 20 mm Synergy Stent, RAYMON-Distal LM-into the Ostium of LAD w/ 4.0 x 16 mm Synergy Stent 07/05/2017; POBA-Ostium and Prox LCx 04/19/2017; PCI-Rotational [id number]-[id number] with a 2.75 x 38 mm Promus Premier drug eluting stent 12/15/13; RAYMON-Mid RPLB w/ 3.0 x 28 mm Cypher and Prox RPLB w/ 3.0 x 8 mm Cypher, RAYMON- Ostium RPDA w/ 2.5 x 28 mm Cypher 09/17/2007 Chronic diastolic (congestive) heart failure (Chronic) Non-rheumatic aortic stenosis (Chronic) Essential hypertension (Chronic) Hyperlipidemia (Chronic) Diabetes mellitus, type II (Chronic) Hypothyroidism (Chronic) Schizophrenia (Chronic) Anemia (Chronic) Follows with Dr Son 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 Reji Galindo MD) Mother CAD (coronary artery disease) Father CAD (coronary artery disease) History Items: Heart Disease, - Paternal Family History: Family History (Last Reviewed 11/21/20 @ 06:[address] Reji Galindo MD) Mother CAD (coronary artery disease) Father CAD (coronary artery disease) History Items: Heart Disease Lives: - - Assisted living Smoking Status: Never smoker Objective: Vital Signs Temp Pulse Resp BP Pulse Ox 98.1 F 67 18 106/50 L 97 11/21/20 21:22 11/21/20 23:00 11/21/20 21:22 11/21/20 21:22 11/21/20 21:22 Oxygen Delivery Method Room Air Weight: 189 lb 2.506 oz Body Mass Index (BMI) 31.4 Finger Stick Blood Glucose 270 Intake and Output for Last 24 Hours 11/19/20 11/20/20 11/21/20 23:59 23:59 23:59 Intake Total 1060 / 1060 Output Total 1200 / 1200 Balance -140 / -140 General: Healthy Appearing Neck: Supple Lungs: Clear to auscultation Cardiovascular: Regular Rhythm, Normal S1, Normal S2, No Murmurs, No Rubs, No Gallops Abdomen: Bowel Sounds Present, Soft Neurological: No Focal Motor or Sensory Deficit Psych/Mental Status: Appropriate 11/21/20 03:38: WBC 3.5 L, RBC 2.42 L, Hgb 7.5 L, Hct 23.4 L, MCV 96.7, MCH 31.0, MCHC 32.1, Plt Count 126 L, MPV 10.2, Immature Gran % (Auto) 0.300, Neut % (Auto) 51.7, Lymph % (Auto) 34.5, [place] % (Auto) 9.0, Eos % (Auto) 4.2, Baso % (Auto) 0.3, Absolute Neuts (auto) 1.8 L, Nucleated RBC % 0 11/21/20 03:38: Sodium 136, Potassium 3.9, Chloride 100, Carbon Dioxide 29.0, Anion Gap 7, BUN 47 H, Creatinine 1.33 H, Est GFR (MDRD) Af Amer 49 L, Est GFR (MDRD) Non-Af 41 L, BUN/Creatinine Ratio 35.3 H, Glucose 188 H, Calcium 9.0 11/21/20 04:05: Urine Color Yellow, Urine Clarity Sl Cldy, Urine pH 6.0, Ur Specific [place] 1.015, Urine Protein Negative, Urine Glucose (UA) Normal, Urine Ketones Negative, Urine Occult Blood 10 H, Urine Nitrite Negative, Urine Bilirubin Negative, Urine Urobilinogen Normal, Ur Leukocyte Esterase 500 H, Urine RBC 0 SEEN, Urine WBC >100 SEEN 11/21/20 06:11: Troponin I 0.126 H 11/21/20 08:45: Troponin I 0.220 H 11/21/20 11:45: Troponin I 0.864 H* 11/21/20 18:26: Hgb 9.8 L, Hct 29.9 L Rhythm: EKG: ECHO: Stress Test: Cardiac Cath: PCI: CT Surgery: Holter monitor: EPS: PPM: CXR: Chest CT Scan: Assessment/Plan 80-year-old patient admitted through the ER with symptoms of generalized weakness, substernal chest pain and nausea. She has frequent admission to hospital evidently she was here in November current every 15 when she was discharged home Patient has a prior cardiac catheterization [address] Malik where she had in-stent stenosis of the left circumflex with nonobstructive atherosclerosis of left main, LAD and RCA Mild LV systolic dysfunction ejection fraction in the range of 45 to 50%. Patient was transferred to [facility] at that time and however decision was made to treat with medical therapy and she has been followed by her primary addictions recovery specialist Dr. Foster I think the plan of management for this patient would be medical therapy at present time she is n.p.o. just to discuss the need for possible cardiac catheterization by Dr. Thorpe in am Patient is a medical problem include history of diabetes mellitus, hypertension hyperlipidemia. Her anemia with hemoglobin around 7 requiring continuous of blood transfusion hemoglobin now is around 9.1. On this admission she had urinary tract infection and currently she is on antibiotic ceftriaxone Assessment and plan;. 1. Patient had severe anemia requiring blood transfusion and Lovenox has been on hold as also she had YOSELIN with a creatinine of 1.3. 2. She has no active symptoms of chest pain. She has been on dual antiplatelet therapy with Plavix and aspirin. And she is a high risk patient for GI bleed with severe anemia. 3. Patient will be followed by Dr. Harper
[2020-11-22] VITALS (11 sets, daily range): BP systolic 94–114; BP diastolic 37–57; PULSE 63–68; RESP 18–20; TEMP 36.6–36.7; O2SAT 96–100
--- NOTE | 2020-11-22 04:34 | EKG12_ITS ---
Test Reason : AM Blood Pressure : / mmHG Vent. Rate : 064 BPM Atrial Rate : 064 BPM P-R Int : 184 ms QRS Dur : 096 ms QT Int : 492 ms P-R-T Axes : 038 -19 036 degrees QTc Int : 507 ms Normal sinus rhythm Nonspecific ST and T wave abnormality Prolonged QT Abnormal ECG Confirmed by JUAN ALBERTO CHEW, RC ([id number]), editor at large THAD HOOKER ([id number] on 11/25/2020 2:07:45 PM Referred By: STACIE Confirmed By:RC AVENDANO MD
--- NOTE | 2020-11-22 05:55 | EKG12_ITS ---
Test Reason : VOMITING Blood Pressure : / mmHG Vent. Rate : 070 BPM Atrial Rate : 312 BPM P-R Int : 000 ms QRS Dur : 110 ms QT Int : 466 ms P-R-T Axes : 015 -23 071 degrees QTc Int : 503 ms Sinus rhythm Left ventricular hypertrophy with repolarization abnormality Prolonged QT Abnormal ECG Confirmed by SEVERINO CHEW, LIN ([id number]), publishing editor LAURIE MCCLELLAND ([id number]) on 11/23/2020 8:54:20 AM Referred By: LAURA Confirmed By:RICHIE HAQ MD
[2020-11-22 06:05] LABS: Absolute Neutrophil Count 1.3 X10^3/uL (2.0-7.7); Basophil# 0.01 X10^3/uL; Basophil% 0.3 % (0-1); Eosinophils% 3.3 % (0-5); Hematocrit 28.1 % (37-47); Hemoglobin 8.6 g/dL (12.0-15.0); Lymphocyte % 42.8 % (19-41); Mean Corp Hgb Conc 30.6 g/dL (32-36); Mean Corpuscular Hgb 30.2 pg (27.0-32.0); Mean Corpuscular Volume 98.6 fL (81-99); Mean Platelet Vol. 10.5 fl (6.2-12.0); Monocyte# 0.33 X10^3/uL; Monocyte% 10.9 % (0-10); NRBC Flagged by Analyzer 0 % (0-5); Neutrophil # 1.29 X10^3/uL (2.7-7.7); Neutrophil % 42.4 % (47-70); POSITIVE COUNT YES; Platelet Count 96 K/mm3 (150-450); RBC Distribution Width CV 16.7 % (11.6-14.6); RBC Distribution Width SD 60.1 fl (35.1-43.9); Red Blood Count 2.85 M/mm3 (4.2-5.4)
[2020-11-22 06:27] LABS: Anion Gap 4 (5-15); BUN 39 mg/dL (7-18); BUN/Creat Ratio 39.3 RATIO (10-20); Calcium,Total 8.5 mg/dL (8.5-10.1); Chloride 106 mmol/L (98-107); Creatinine, Serum 0.99 mg/dL (0.55-1.02); EST Glomerular Filtration Rate 57 mL/min (>60); Est Glom Filt Rate - Afr Amer 69 mL/min (>60); Glucose 178 mg/dL (74-106); Potassium 3.8 mmol/L (3.5-5.1); Sodium Level 137 mmol/L (136-145)
[2020-11-22 06:45] LABS: Bedside Glucose 177 mg/dL (70-110)
[2020-11-22] MEDS: Clopidogrel Bisulfate 75 MG Tablet PO (06:47)
[2020-11-22] MEDS: Aspirin 81 MG TAB.CHEW PO (06:48)
[2020-11-22] MEDS: Ceftriaxone 1 GM/50 ML BAG IV (09:09)
[2020-11-22] MEDS: Carvedilol 3.125 MG TABLET PO (09:10)
[2020-11-22] MEDS: Spironolactone 25 MG Tablet PO (09:10)
[2020-11-22] MEDS: Ranolazine 500 MG Tablet 1000 MG PO ×2 (09:10→21:36)
[2020-11-22] MEDS: Levothyroxine 100 MCG Tablet PO (09:10)
[2020-11-22] MEDS: Folic Acid 1 MG Tablet PO (09:11)
[2020-11-22] MEDS: Ascorbic Acid 500 MG Tablet PO (09:11)
[2020-11-22] MEDS: Pantoprazole Sodium 40 MG Tablet PO (09:11)
[2020-11-22] MEDS: Losartan Potassium 25 MG Tablet PO (09:11)
[2020-11-22] MEDS: Mirabegron 25 MG TAB.ER.24H PO (09:11)
[2020-11-22 11:45] LABS: Bedside Glucose 174 mg/dL (70-110)
--- NOTE | 2020-11-22 12:03 | CASEMGMT ---
SUAD called [place] and left her a voice mail letting her know patient is in the hospital. Karina Simmons MECHANICAL DESIGN ENGINEER AMA
--- NOTE | 2020-11-22 12:18 | CASEMGMT ---
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 LIA Matthews
--- NOTE | 2020-11-22 14:08 | PN_ITS ---
<Wagner Rebolledo - Last Filed: 11/22/20 15:03> Patient Problems: Active and Suspected Problems (Last Reviewed 11/21/20 @ 06:[address] Reji Galindo MD) YOSELIN (acute kidney injury) (Acute) UTI (urinary tract infection) (Acute) Generalized weakness (Acute) Subjective: Patient is an 80-year-old female comfortably resting in bed, alert and oriented x3. Denies chest pain, shortness of breath, palpitations, fever, chills, N/V/D. Objective: Microbiology 11/21/20 04:05 Urine, Catheterized Urine Culture - Preliminary GPC Poss Enterococcus sp 11/21/20 05:12 Stool Stool Occult Blood (TARUN) - Final Vitals/I&O's: Vital Signs Temp Pulse Resp BP Pulse Ox 98 F 63 18 113/54 L 96 11/22/20 06:37 11/22/20 06:55 11/22/20 06:37 11/22/20 06:37 11/22/20 07:58 Oxygen Delivery Method Room Air Weight: 189 lb 2.506 oz Body Mass Index (BMI) 31.4 Finger Stick Blood Glucose 270 Intake and Output for Last 24 Hours 11/20/20 11/21/20 11/22/20 23:59 23:59 23:59 Intake Total 1060 / 1060 350 / 350 Output Total 1200 / 1200 750 / 750 Balance -140 / -140 -400 / -400 General: Alert, Oriented x3, Cooperative HEENT: Atraumatic, PERRLA, EOMI, Normocephalic Neck: Supple, No JVD, Negative Carotid Bruits Lungs: Clear to auscultation, Normal air movement Cardiovascular: Regular rate, No murmurs Abdomen: Tender - Tenderness to palpation about the lower abdominal quadrants. Extremities: No edema, Capillary Refill Less than 3 Seconds, Tenderness - Tenderness to palpation about the legs bilaterally, no swelling evident. Skin: No rashes, No breakdown Musculoskeletal: No Tenderness to Palpation of Joints or Extremities Neurological: Cranial nerves II-XII grossly intact Psych/Mental Status: Normal Affect, Appropriate Microbiology Past 72 Hours 11/21/20 04:05 Urine, Catheterized Urine Culture - Preliminary GPC Poss Enterococcus sp 11/21/20 05:12 Stool Stool Occult Blood (TARUN) - Final Laboratory Results 11/21/20 05:29: Blood Type A POSITIVE, Antibody Screen NEGATIVE, Crossmatch See Detail 11/21/20 17:58: POC Glucose 219 H 11/21/20 18:26: Hgb 9.8 L, Hct 29.9 L 11/21/20 21:30: POC Glucose 282 H 11/22/20 05:40: WBC 3.0 L, RBC 2.85 L, Hgb 8.6 L, Hct 28.1 L, MCV 98.6, MCH 30.2, MCHC 30.6 L, RDW Std Deviation 60.1 H, RDW Coeff of Conchis 16.7 H, Plt Count 96 L, MPV 10.5, Immature Gran % (Auto) 0.300, Neut % (Auto) 42.4 L, Lymph % ( Auto) 42.8 H, [place] % (Auto) 10.9 H, Eos % (Auto) 3.3, Baso % (Auto) 0.3, Absolute Neuts (auto) 1.3 L, Absolute Lymphs (auto) 1.30, Nucleated RBC % 0 11/22/20 05:40: Sodium 137, Potassium 3.8, Chloride 106, Carbon Dioxide 27.0, Anion Gap 4 L, BUN 39 H, Creatinine 0.99, Estim Creat Clear Calc 40.10, Est GFR (MDRD) Af Amer 69, Est GFR (MDRD) Non-Af 57 L, BUN/Creatinine Ratio 39.3 H, Glucose 178 H, Calcium 8.5 11/22/20 06:36: POC Glucose 177 H 11/22/20 11:36: POC Glucose 174 H Current Medications Acetaminophen (Acetaminophen 325 Mg Tablet) 650 mg PO Q6H PRN PRN PRN Reason: Pain Score 1-10/Temp > 100.7 F Ascorbic Acid (Ascorbic Acid 500 Mg Tablet) 500 mg PO DAILY [facility] Last Admin: 11/22/20 09:11 Dose: 500 mg Documented by: Aspirin (Aspirin 81 Mg Tab.Chew) 81 mg PO DAILY@0800 [facility] Last Admin: 11/22/20 06:48 Dose: 81 mg Documented by: Carvedilol (Carvedilol 3.125 Mg Tablet) 3.125 mg PO BIDCM [facility] Last Admin: 11/22/20 09:10 Dose: 3.125 mg Documented by: Clopidogrel Bisulfate (Clopidogrel Bisulfate 75 Mg Tablet) 75 mg PO DAILY [facility] Last Admin: 11/22/20 06:47 Dose: 75 mg Documented by: Dextrose (Dextrose 50%-Water 25 Gm/50 Ml Disp.Syrin) 0 gm IV X1 PRN; Protocol PRN Reason: Hypoglycemia Enoxaparin Sodium (Enoxaparin 100 Mg/Ml Syringe) 85 mg SC DAILY [facility] Last Admin: 11/22/20 06:32 Dose: Not Given Documented by: Folic Acid (Folic Acid 1 Mg Tablet) 1 mg PO DAILY [facility] Last Admin: 11/22/20 09:11 Dose: 1 mg Documented by: Glucagon (Glucagon 1 Mg/Ml Syringe) 1 mg IM .X1 PRN PRN Reason: Hypoglycemia Haloperidol (Haloperidol 1 Mg Tablet) 1 mg PO BID PRN PRN Reason: NAUSEA Ceftriaxone Sodium (Rocephin) 1 gm in 50 mls @ 100 mls/hr IV Q24 [facility] Last Infusion: 11/22/20 11:44 Dose: Infused Documented by: Sodium Chloride () 250 mls @ 15 mls/hr IV .[id number] PRN PRN Reason: Saline Flush Sodium Chloride () 250 mls @ 15 mls/hr IV .[id number] PRN PRN Reason: Additional IVPB Infusion Insulin Glargine (Insulin Glargine 100 Units/Ml Pen) 34 units SC 1100 [facility] Insulin Human Lispro (Insulin Lispro 100 Unit/Ml Insuln.Pen) 0 unit SC ACHS [facility]; Protocol Last Admin: 11/22/20 07:32 Dose: Not Given Documented by: Isosorbide Mononitrate (Isosorbide Mononitrate 30 Mg Tablet) 30 mg PO DINNER [facility] Last Admin: 11/21/20 18:06 Dose: 30 mg Documented by: Levothyroxine Sodium (Levothyroxine 100 Mcg Tablet) 100 mcg PO DAILY@0600 [facility] Last Admin: 11/22/20 09:10 Dose: 100 mcg Documented by: Losartan Potassium (Losartan Potassium 25 Mg Tablet) 25 mg PO DAILY [facility] Last Admin: 11/22/20 09:11 Dose: 25 mg Documented by: Mirabegron (Mirabegron 25 Mg Tab.Er.24h) 25 mg PO DAILY [facility] Last Admin: 11/22/20 09:11 Dose: 25 mg Documented by: Pantoprazole Sodium (Pantoprazole Sodium 40 Mg Tablet) 40 mg PO DAILY [facility] Last Admin: 11/22/20 09:11 Dose: 40 mg Documented by: Polyethylene Glycol (Polyethylene Glycol 3350 17 Gm Packet) 17 gm PO DAILY PRN PRN Reason: Constipation Pravastatin Sodium (Pravastatin 80 Mg Tablet) 80 mg PO QHS [facility] Last Admin: 11/21/20 21:39 Dose: 80 mg Documented by: Prochlorperazine Edisylate (Prochlorperazine 10 Mg/2 Ml Vial) 5 mg IV Q4H PRN PRN PRN Reason: Breakthrough nausea/vomiting Ranolazine (Ranolazine 500 Mg Tablet) 1,000 mg PO BID [facility] Last Admin: 11/22/20 09:10 Dose: 1,000 mg Documented by: Senna/Docusate Sodium (Senna/Docusate Sodium 1 Tablet) 2 tablet PO BID PRN PRN PRN Reason: Constipation Sodium Chloride (0.9% Saline Lock 10 Ml Syringe) 10 - 40 ml IV UD PRN PRN Reason: SALINE FLUSH Spironolactone (Spironolactone 25 Mg Tablet) 25 mg PO QODAY [facility] Last Admin: 11/22/20 09:10 Dose: 25 mg Documented by: Medical Necessity - Tobacco Use Smoking Status: Never smoker Assessment/Plan All Active Problems (Last Reviewed 11/21/20 @ 06:[address] Reji Galindo MD) Hypokalemia (Resolved) Vomiting (Resolved) YOSELIN (acute kidney injury) (Acute) UTI (urinary tract infection) (Acute) Generalized weakness (Acute) History of non-ST elevation myocardial infarction (NSTEMI) (Resolved 03/26/20) GI bleed (Resolved 05/07/20) Patient is an 80-year-old female who presented to the ED on 11/21/2020 with a chief complaint of 2-day history of tremors, unsteady gait, and inability to care for self, dysuria, burning with urination and chest pain. Patient was admitted for acute UTI, unspecified chest pain and prolonged QTC, acute on chronic symptomatic anemia and YOSELIN on CKD 3. The current plan is for cardiac catheterization by Dr. Harper on the morning of 11/23/2020 . Pending results of cardiac catheterization patient will most likely be managed medically, per cardiology. 1) Acute UTI Abnormal UA evident in the ED. WBCs are low at 3, remainder of CBC and BMP unremarkable. Vital signs stable, afebrile. Initiated on ceftriaxone in the ED. Plan; continue antibiotics, continue to monitor CBC. 2) Chest pain and prolonged QTC EKG demonstrated ST depressions in leads V4 to V6. Elevated troponins. Plan; continue aspirin and Plavix, avoid QTC prolonging drugs, cardiac catheterization scheduled for 11/23/[address] Harper. 3) YOSELIN on CKD III Creatinine currently back to baseline at 1, improved from admission where it was 1.33. Plan; trend BMP, avoid nephrotoxic agents/hold home CAROL-I. 4) Acute on chronic symptomatic anemia Patient's hemoglobin was 10 a week ago per old records, currently 8.6 after 2 u nits of packed red blood cells were infused. Unclear etiology, follows with Dr. Maguire (oncologist). Plan; continue to trend CBC. 5) CHF with preserved ejection fraction Recent echocardiogram demonstrates an EF of 55% with stage I diastolic dysfunction. Anterior apex was mildly hypokinetic. Lateral apex was mildly hypokinetic. Left atrium was moderately enlarged. Mild mitral valve insufficiency was noted. Trivial tricuspid valve insufficiency was noted. Right ventricular systolic pressure was 21mmHg. Mild aortic stenosis was noted. Plan; continue to hold home diuretics due to YOSELIN. DVT prophylaxis - SCDs Patient seen by Wagner Rebolledo PA-C, under the supervision of Dr. Kern. <Gage Kern - Last Filed: 11/22/20 15:26> Vitals/I&O's: Vital Signs Temp Pulse Resp BP Pulse Ox 98.0 F 68 20 H 94/57 L 97 11/22/20 12:30 11/22/20 14:50 11/22/20 12:30 11/22/20 12:30 11/22/20 12:30 Oxygen Delivery Method Room Air Weight: 85.8 kg Body Mass Index (BMI) 31.4 Finger Stick Blood Glucose 270 Intake and Output for Last 24 Hours 11/20/20 11/21/20 11/22/20 23:59 23:59 23:59 Intake Total 1060 / 1060 350 / 350 Output Total 1200 / 1200 1000 / 1000 Balance -140 / -140 -650 / -650 Microbiology Past 72 Hours 11/21/20 04:05 Urine, Catheterized Urine Culture - Preliminary GPC Poss Enterococcus sp 11/21/20 05:12 Stool Stool Occult Blood (TARUN) - Final Laboratory Results 11/21/20 05:29: Crossmatch See Detail 11/21/20 17:58: POC Glucose 219 H 11/21/20 18:26: Hgb 9.8 L, Hct 29.9 L 11/21/20 21:30: POC Glucose 282 H 11/22/20 05:40: WBC 3.0 L, RBC 2.85 L, Hgb 8.6 L, Hct 28.1 L, MCV 98.6, MCH 30.2, MCHC 30.6 L, RDW Std Deviation 60.1 H, RDW Coeff of Conchis 16.7 H, Plt Count 96 L, MPV 10.5, Immature Gran % (Auto) 0.300, Neut % (Auto) 42.4 L, Lymph % (Auto) 42.8 H, [place] % (Auto) 10.9 H, Eos % (Auto) 3.3, Baso % (Auto) 0.3, Absolute Neuts (auto) 1.3 L, Absolute Lymphs (auto) 1.30, Nucleated RBC % 0 11/22/20 05:40: Sodium 137, Potassium 3.8, Chloride 106, Carbon Dioxide 27.0, Anion Gap 4 L, BUN 39 H, Creatinine 0.99, Estim Creat Clear Calc 40.10, Est GFR (MDRD) Af Amer 69, Est GFR (MDRD) Non-Af 57 L, BUN/Creatinine Ratio 39.3 H, Glucose 178 H, Calcium 8.5 11/22/20 06:36: POC Glucose 177 H 11/22/20 11:36: POC Glucose 174 H Current Medications Acetaminophen (Acetaminophen 325 Mg Tablet) 650 mg PO Q6H PRN PRN PRN Reason: Pain Score 1-10/Temp > 100.7 F Ascorbic Acid (Ascorbic Acid 500 Mg Tablet) 500 mg PO DAILY [facility] Last Admin: 11/22/20 09:11 Dose: 500 mg Documented by: Aspirin (Aspirin 81 Mg Tab.Chew) 81 mg PO DAILY@0800 [facility] Last Admin: 11/22/20 06:48 Dose: 81 mg Documented by: Carvedilol (Carvedilol 3.125 Mg Tablet) 3.125 mg PO BIDCM [facility] Last Admin: 11/22/20 09:10 Dose: 3.125 mg Documented by: Clopidogrel Bisulfate (Clopidogrel Bisulfate 75 Mg Tablet) 75 mg PO DAILY [facility] Last Admin: 11/22/20 06:47 Dose: 75 mg Documented by: Dextrose (Dextrose 50%-Water 25 Gm/50 Ml Disp.Syrin) 0 gm IV X1 PRN; Protocol PRN Reason: Hypoglycemia Enoxaparin Sodium (Enoxaparin 100 Mg/Ml Syringe) 85 mg SC DAILY [facility] Last Admin: 11/22/20 06:32 Dose: Not Given Documented by: Folic Acid (Folic Acid 1 Mg Tablet) 1 mg PO DAILY [facility] Last Admin: 11/22/20 09:11 Dose: 1 mg Documented by: Glucagon (Glucagon 1 Mg/Ml Syringe) 1 mg IM .X1 PRN PRN Reason: Hypoglycemia Haloperidol (Haloperidol 1 Mg Tablet) 1 mg PO BID PRN PRN Reason: NAUSEA Ceftriaxone Sodium (Rocephin) 1 gm in 50 mls @ 100 mls/hr IV Q24 [facility] Last Infusion: 11/22/20 11:44 Dose: Infused Documented by: Sodium Chloride () 250 mls @ 15 mls/hr IV .[id number] PRN PRN Reason: Saline Flush Sodium Chloride () 250 mls @ 15 mls/hr IV .[id number] PRN PRN Reason: Additional IVPB Infusion Insulin Glargine (Insulin Glargine 100 Units/Ml Pen) 34 units SC 1100 [facility] Last Admin: 11/22/20 14:11 Dose: 34 units Documented by: Insulin Human Lispro (Insulin Lispro 100 Unit/Ml Insuln.Pen) 0 unit SC ACHS [facility]; Protocol Last Admin: 11/22/20 14:12 Dose: 1 units Documented by: Isosorbide Mononitrate (Isosorbide Mononitrate 30 Mg Tablet) 30 mg PO DINNER [facility] Last Admin: 11/21/20 18:06 Dose: 30 mg Documented by: Levothyroxine Sodium (Levothyroxine 100 Mcg Tablet) 100 mcg PO DAILY@0600 [facility] Last Admin: 11/22/20 09:10 Dose: 100 mcg Documented by: Losartan Potassium (Losartan Potassium 25 Mg Tablet) 25 mg PO DAILY [facility] Last Admin: 11/22/20 09:11 Dose: 25 mg Documented by: Mirabegron (Mirabegron 25 Mg Tab.Er.24h) 25 mg PO DAILY [facility] Last Admin: 11/22/20 09:11 Dose: 25 mg Documented by: Pantoprazole Sodium (Pantoprazole Sodium 40 Mg Tablet) 40 mg PO DAILY [facility] Last Admin: 11/22/20 09:11 Dose: 40 mg Documented by: Polyethylene Glycol (Polyethylene Glycol 3350 17 Gm Packet) 17 gm PO DAILY PRN PRN Reason: Constipation Pravastatin Sodium (Pravastatin 80 Mg Tablet) 80 mg PO QHS [facility] Last Admin: 11/21/20 21:39 Dose: 80 mg Documented by: Prochlorperazine Edisylate (Prochlorperazine 10 Mg/2 Ml Vial) 5 mg IV Q4H PRN PRN PRN Reason: Breakthrough nausea/vomiting Ranolazine (Ranolazine 500 Mg Tablet) 1,000 mg PO BID [facility] Last Admin: 11/22/20 09:10 Dose: 1,000 mg Documented by: Senna/Docusate Sodium (Senna/Docusate Sodium 1 Tablet) 2 tablet PO BID PRN PRN PRN Reason: Constipation Sodium Chloride (0.9% Saline Lock 10 Ml Syringe) 10 - 40 ml IV UD PRN PRN Reason: SALINE FLUSH Spironolactone (Spironolactone 25 Mg Tablet) 25 mg PO QODAY [facility] Last Admin: 11/22/20 09:10 Dose: 25 mg Documented by: STROKE Vital Signs/Narrative: Vital Signs Temp Pulse Resp BP Pulse Ox 11/22/20 14:50 68 11/22/20 12:30 98.0 F 64 20 H 94/57 L 97 Assessment/Plan This patient was seen in conjunction with Wagner Rebolledo PA-C. I have independently interviewed and examined the patient and reviewed pertinent historical, laboratory, and other data. Please refer to Wagner Rebolledo PA-C's note for details of this patient's presentation, findings, and recommendations. I have reviewed Wagner Rebolledo PA-C's note and concur with documented findings. In brief, patient is a 1-year-old lady admitted with progressive generalized weakness. She was found to be anemic. She was also found to have abnormal urinalysis consistent with UTI admitted to monitored bed for further management Physical Examination: GENERAL: cooperative HEENT: Atraumatic; EYES; Anicteric, Normal Conjunctiva NECK; supple, normal thyroid, RESPIRATORY: Diminished to auscultation CARDIOVASCULAR: Regular S1 S2, GI: soft, normoactive bowel sounds, : No Renal angle tenderness; EXTREMITIES: No edema, no clubbing, MUSCULOSKELETAL: no muscle waisting NEURO: Awake; no lateralizing signs. SKIN: No Rash PSYCH; Flat affect Assessment: 1. Acute cystitis with Enterococcus species 2. Angina pectoris secondary to coronary artery disease 3. Renal insufficiency?Resolved 4. Symptomatic anemia status post transfusion with 2 unit PRBC 5. Chronic congestive heart failure with preserved ejection fraction 6. Coronary artery disease 7. Hypothyroidism 8. GERD 9. Diabetes mellitus type 2 10. Dyslipidemia 11. Essential hypertension 12. Non Alcoholic fatty liver disease 13. Chronic thrombocytopenia secondary to #12 Recommendations: 1. I have discussed the results of my overview and impressions with the patient 2. Options for management were reviewed Inpatient E&M: 47829 Subs Hosp L2
[2020-11-22] MEDS: Insulin Lispro 100 UNIT/ML INSULN.PEN SC ×3 (14:12→21:36)
--- NOTE | 2020-11-22 15:08 | PN.CARD_ITS ---
Subjectve: Patient is resting comfortably. Denies any chest pain, shortness of breath. Objective: Vital Signs Temp Pulse Resp BP Pulse Ox 98.0 F 68 20 H 94/57 L 97 11/22/20 12:30 11/22/20 14:50 11/22/20 12:30 11/22/20 12:30 11/22/20 12:30 Oxygen Delivery Method Room Air Weight: 189 lb 2.506 oz Body Mass Index (BMI) 31.4 Finger Stick Blood Glucose 270 Intake and Output for Last 24 Hours 11/20/20 11/21/20 11/22/20 23:59 23:59 23:59 Intake Total 1060 / 1060 350 / 350 Output Total 1200 / 1200 1000 / 1000 Balance -140 / -140 -650 / -650 General: Awake, Alert, Oriented x 3 HEENT: Atraumatic Oral: Moist Mucosa 11/21/20 18:26: Hgb 9.8 L, Hct 29.9 L 11/22/20 05:40: WBC 3.0 L, RBC 2.85 L, Hgb 8.6 L, Hct 28.1 L, MCV 98.6, MCH 30.2, MCHC 30.6 L, Plt Count 96 L, MPV 10.5, Immature Gran % (Auto) 0.300, Neut % (Auto) 42.4 L, Lymph % (Auto) 42.8 H, [place] % (Auto) 10.9 H, Eos % (Auto) 3.3, Baso % (Auto) 0.3, Absolute Neuts (auto) 1.3 L, Nucleated RBC % 0 11/22/20 05:40: Sodium 137, Potassium 3.8, Chloride 106, Carbon Dioxide 27.0, Anion Gap 4 L, BUN 39 H, Creatinine 0.99, Est GFR (MDRD) Af Amer 69, Est GFR (MDRD) Non-Af 57 L, BUN/Creatinine Ratio 39.3 H, Glucose 178 H, Calcium 8.5 Rhythm: EKG: ECHO: Stress Test: Cardiac Cath: PCI: CT Surgery: Holter monitor: EPS: PPM: CXR: Chest CT Scan: Medical Necessity - Tobacco Use Smoking Status: Never smoker Assessment/Plan 1. Chest pain: Likely related to underlying significant CAD plus anemia. P atient received blood transfusion and her hemoglobin is better. She has not had any anginal symptoms today. 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 Patient's angiogram was reviewed. If patient continues to have anginal symptoms then we can first try increasing the Imdur to 90 mg p. o. daily. At this time we will try to manage her angina medically.
--- NOTE | 2020-11-22 15:09 | CASEMGMT ---
SUAD spoke with patient regarding her discharge plan. She said she thinks she will probably go back to [facility] at discharge. SW asked if she feels she needs to go somewhere fore rehab. She said not if insurance isn't paying for it. SUAD told her we could try and see if insurance will approve her. She was not sure. SUAD will review patient's therapy notes. Karina SERRATO
[2020-11-22] MEDS: Isosorbide Mononitrate 30 MG Tablet PO (17:11)
[2020-11-22] MEDS: Senna/Docusate Sodium 1 Tablet 2 TABLET PO (17:11)
[2020-11-22 17:26] LABS: Bedside Glucose 262 mg/dL (70-110)
[2020-11-22] MEDS: Pravastatin 80 MG Tablet PO (21:36)
[2020-11-22 22:30] LABS: Bedside Glucose 205 mg/dL (70-110)
[2020-11-22] MEDS: Lidocaine 5% Patch 2 PATCH TOPICAL (23:08)
[2020-11-23 02:59] VITALS: PULSE 60
[2020-11-23 03:26] VITALS: BP 109/44; PULSE 61; RESP 18; TEMP 36.6; O2SAT 98
[2020-11-23] MEDS: Levothyroxine 100 MCG Tablet PO (06:27)
[2020-11-23 06:35] LABS: Bedside Glucose 120 mg/dL (70-110)
[2020-11-23 06:36] VITALS: PULSE 64
[2020-11-23 07:00] LABS: Absolute Lymphocyte Count 1.41 X10^3/uL (0.83-4.51); Absolute Neutrophil Count 1.3 X10^3/uL (2.0-7.7); Basophil# 0.02 X10^3/uL; Basophil% 0.6 % (0-1); Eosinophil# 0.15 X10^3/uL; Eosinophils% 4.7 % (0-5); Hematocrit 27.1 % (37-47); Hemoglobin 8.6 g/dL (12.0-15.0); Lymphocyte # 1.41 X10^3/ul (0.83-4.51); Lymphocyte % 44.2 % (19-41); Mean Corp Hgb Conc 31.7 g/dL (32-36); Mean Corpuscular Hgb 30.3 pg (27.0-32.0); Mean Corpuscular Volume 95.4 fL (81-99); Mean Platelet Vol. 10.3 fl (6.2-12.0); Monocyte# 0.34 X10^3/uL; Monocyte% 10.7 % (0-10); NRBC Flagged by Analyzer 0 % (0-5); Neutrophil # 1.26 X10^3/uL (2.7-7.7); Neutrophil % 39.5 % (47-70); Platelet Count 113 K/mm3 (150-450); RBC Distribution Width CV 16.8 % (11.6-14.6); Red Blood Count 2.84 M/mm3 (4.2-5.4); White Blood Count 3.2 K/mm3 (4.4-11.0)
[2020-11-23 07:31] LABS: Anion Gap 4 (5-15); BUN 33 mg/dL (7-18); BUN/Creat Ratio 40.1 RATIO (10-20); Calcium,Total 8.5 mg/dL (8.5-10.1); Chloride 105 mmol/L (98-107); Creatinine, Serum 0.82 mg/dL (0.55-1.02); EST Glomerular Filtration Rate 71 mL/min (>60); Est Glom Filt Rate - Afr Amer 86 mL/min (>60); Estimated Creatinine Clearance 48.42 ml/min; Glucose 112 mg/dL (74-106); Magnesium 2.2 mg/dL (1.6-2.6); Potassium 3.8 mmol/L (3.5-5.1); Sodium Level 139 mmol/L (136-145)
[2020-11-23 08:00] VITALS: BP 114/54; PULSE 60; RESP 14; TEMP 36.6; O2SAT 100
[2020-11-23] MEDS: Carvedilol 3.125 MG TABLET PO (08:35)
[2020-11-23] MEDS: Aspirin 81 MG TAB.CHEW PO (08:37)
--- NOTE | 2020-11-23 09:28 | CASEMGMT ---
SUAD spoke with patient again this am regarding what she would like to do at discharge. She said she figured she would go back to [facility]. SW asked her if she feels like she will be able to care for herself at [facility]. She said she thinks so, but isn't sure. She said last week they tried to get her to a SNF and her insurance took so long that she was discharged back to assisted living. SUAD will see how she does with therapy today. SUAD called [facility] and spoke with Francia one of the nurses. She said patient can return. However, she has to be able to go to the dining room for meals. Patient does have a power wheelchair so if she can't walk she will use her wc. SUAD told her SW will let them know the plan. Karina SERRATO
[2020-11-23] MEDS: Ceftriaxone 1 GM/50 ML BAG IV (09:43)
[2020-11-23] MEDS: 0.9% Saline Lock 10 ML Syringe IV (09:45)
[2020-11-23] MEDS: Pantoprazole Sodium 40 MG Tablet PO (09:46)
[2020-11-23] MEDS: Folic Acid 1 MG Tablet PO (09:46)
[2020-11-23] MEDS: Losartan Potassium 25 MG Tablet PO (09:46)
[2020-11-23] MEDS: Ranolazine 500 MG Tablet 1000 MG PO (09:46)
[2020-11-23] MEDS: Lidocaine 5% Patch 2 PATCH TOPICAL (09:46)
[2020-11-23] MEDS: Ascorbic Acid 500 MG Tablet PO (09:46)
[2020-11-23] MEDS: Mirabegron 25 MG TAB.ER.24H PO (09:46)
[2020-11-23] MEDS: Clopidogrel Bisulfate 75 MG Tablet PO (09:46)
[2020-11-23 09:53] VITALS: O2SAT 100
--- NOTE | 2020-11-23 11:06 | PCM.DC ---
- Discharge Diagnoses Current Active Problems: Current Active and Chronic Problems (Last Reviewed 11/21/20 @ 06:[address] Reji Galindo MD) CAD (coronary artery disease) (Chronic) YOSELIN (acute kidney injury) (Acute) Acute exacerbation of CHF (congestive heart failure) (Chronic) UTI (urinary tract infection) (Acute) Generalized weakness (Acute) Atherosclerotic heart disease [place] coronary artery w/angina pectoris (Chronic) History of coronary artery stent placement (Chronic 08/20/18) PCI of ostial and mid LCx ISR with laser atherectomy, balloon angioplasty 08/20/18 PTCA and laser atherectomy-Prox LCx 02/03/2018; POBA-ostial/prox LCx 11/09/2017; VXF-WLQ-Ayet LCx w/ 2.5 x 20 mm Synergy Stent, RAYMON-Distal LM-into the Ostium of LAD w/ 4.0 x 16 mm Synergy Stent 07/05/2017; POBA-Ostium and Prox LCx 04/19/2017; PCI-Rotational Wmszojligap-XGK-HKS with a 2.75 x 38 mm Promus Premier drug eluting stent 12/15/13; RAYMON-Mid RPLB w/ 3.0 x 28 mm Cypher and Prox RPLB w/ 3.0 x 8 mm Cypher, RAYMON- Ostium RPDA w/ 2.5 x 28 mm Cypher 09/17/2007 Chronic diastolic (congestive) heart failure (Chronic) Non-rheumatic aortic stenosis (Chronic) Essential hypertension (Chronic) Hyperlipidemia (Chronic) Diabetes mellitus, type II (Chronic) Hypothyroidism (Chronic) Schizophrenia (Chronic) Anemia (Chronic) Follows with Dr Son 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) You will use the following diet at home:: No restrictions Your food should be the consistency of: Regular Your liquids should be the consistency of: Regular/Thin Discharge Activity: Return to Normal Activity Allergies/Adverse Reactions: Allergies aripiprazole [From Abilify] Allergy (Intermediate, Verified 11/21/20 03:29) it over powered me lisinopril Allergy (Intermediate, Verified 11/21/20 03:29) Unknown atorvastatin calcium [From Lipitor] Adverse Reaction (Verified 11/21/20 03:29) Unknown rosiglitazone maleate [From Avandia] Adverse Reaction (Verified 11/21/20 03:29) Other Medications to take at Discharge Aspirin [Aspirin, Baby] 81 mg PO DAILY@0800 06/30/17 Nitroglycerin [Nitrostat] 0.4 mg SL PRN PRN 06/30/17 ascorbic acid (vitamin C) 500 mg tablet 500 mg PO DAILY 09/13/18 Insulin Glargine,Hum.rec.anlog [[place] Solostar] 34 unit SC DAILY 04/23/19 Carvedilol [Coreg] 3.125 mg PO BIDCM 06/24/19 Cholecalciferol (Vitamin D3) [Vitamin D3] 5,000 unit PO DAILY 06/24/19 Levothyroxine [Synthroid] 100 mcg PO DAILY 07/24/19 Folic Acid 1 mg PO DAILY 02/10/20 Insulin Regular, Human [Humulin R] 5 unit SQ TIDCM 02/10/20 losartan 25 mg tablet 25 mg PO DAILY #30 tab 04/29/20 mirabegron 25 mg tablet,extended release 24 hr 25 mg PO DAILY 06/17/20 pravastatin 80 mg tablet 80 mg PO DAILY #90 tab 08/13/20 Clopidogrel Bisulfate [Clopidogrel] 75 mg PO DAILY 10/20/20 Pantoprazole Sodium [Protonix] 40 mg PO DAILY 10/20/20 Ranolazine [Ranolazine ER] 1,000 mg PO BID 10/20/20 Haloperidol [Haldol] 1 mg PO BID PRN 11/13/20 Spironolactone 25 mg PO QODAY 11/13/20 Albuterol IH (ProAir) [Proair Hfa] 2 puff INHALATION Q4H PRN PRN 11/14/20 Pnv No.95/Ferrous Fum/Folic AC [ Caplet] 1 each PO DAILY 11/14/20 Polyethylene Glycol 3350 [Miralax] 17 gm PO DAILY PRN 11/14/20 Furosemide 40 mg PO BID 11/21/20 Isosorbide Mononitrate [Isosorbide Mononitrate ER] 30 mg PO DINNER 11/21/20 Metolazone 2.5 mg PO WEFR 11/21/20 Potassium Chloride 20 meq PO DAILY 11/21/20 Cefdinir 300 mg PO BID #10 capsule 11/23/20 The following prescriptions were given: Cefdinir 300 mg PO BID #10 capsule Transmission Status: Pending to [facility] - [place] - [id number] Primary Care Physician: Diana Cohen MD [Primary Care Provider] - Please follow up with your Primary Care Physician in: Within the next 2 weeks Test Results: Test results from this visit will be discussed in further detail at your follow-up appointment, if applicable.
[2020-11-23] MEDS: Insulin Lispro 100 UNIT/ML INSULN.PEN SC (11:52)
[2020-11-23 12:00] LABS: Bedside Glucose 227 mg/dL (70-110)
[2020-11-23 13:25] VITALS: BP 98/52; PULSE 58; RESP 14; TEMP 36.8; O2SAT 100
--- NOTE | 2020-11-23 13:41 | CASEMGMT ---
Addendum entered by Karina Simmons 11/23/20 14:11: SUAD called [facility] and notified Aby that patient will be returning today and she will have her new prescription with her. SUAD called [facility] and talked with Darius requesting [facility]. [place] [id number] Await return call. SW looked at [facility] online schedule and patient was on there for 330. SW spoke with patient and she said she wants to take a cab because she needs to stop by the bank. SW called [facility] and canceled transport. Patient said she uses [facility]. SW called [facility] and arranged for patient to be picked up at . SUAD will notify RN as soon as she is available. Plan:d/c back to [facility] living. Patient used her taxi pass to go back per her request. Karina SERRATO Original Note: Therapy saw patient and she walked 160'. SUAD notified PA that patient can be discharged back to [facility]. SUAD made arrangements to have patient's new discharge medication filled at [facility] so she has it when she gets back. [facility] would not be able to get the medication today. SUAD will notify [facility] that patient is returning today and SUAD will set up transport. Karina SERRATO
--- NOTE | 2020-11-23 14:01 | CASEMGMT ---
Pt qualifies for palliative referral per [facility] palliative screening tool but Dr. Kern declines referral at this time. Rolando TREVINO CM
--- NOTE | 2020-11-23 14:51 | NURSING ---
Student nurse documentation reviewed.
--- NOTE | 2020-11-23 14:56 | PCM.DC.SUM ---
<Wagner Rebolledo - Last Filed: 11/23/20 14:56> Discharge Date and Diagnosis - Problem List Patient Problems: Active and Suspected Problems (Last Reviewed 11/21/20 @ 06:[address] Reji Galindo MD) YOSELIN (acute kidney injury) (Acute) UTI (urinary tract infection) (Acute) Generalized weakness (Acute) Date of Admission: 11/21/20 Date of Discharge: 11/23/20 - Primary Discharge Diagnosis Acute Problems: Active Problems (Last Reviewed 11/21/20 @ 06:[address] Reji Galindo MD) YOSELIN (acute kidney injury) (Acute) UTI (urinary tract infection) (Acute) Generalized weakness (Acute) - Secondary Discharge Diagnosis Chronic Problems: Chronic Problems (Last Reviewed 11/21/20 @ 06:[address] Reji Galindo MD) CAD (coronary artery disease) (Chronic) Acute exacerbation of CHF (congestive heart failure) (Chronic) Atherosclerotic heart disease otoe-[place]ouria coronary artery w/angina pectoris (Chronic) History of coronary artery stent placement (Chronic 08/20/18) PCI of ostial and mid LCx ISR with laser atherectomy, balloon angioplasty 08/20/18 PTCA and laser atherectomy-Prox LCx 02/03/2018; POBA-ostial/prox LCx 11/09/2017; DSI-MQL-Tpev LCx w/ 2.5 x 20 mm Synergy Stent, RAYMON-Distal LM-into the Ostium of LAD w/ 4.0 x 16 mm Synergy Stent 07/05/2017; POBA-Ostium and Prox LCx 04/19/2017; PCI-Rotational Ixddzudezke-EWB-JLO with a 2.75 x 38 mm Promus Premier drug eluting stent 12/15/13; RAYMON-Mid RPLB w/ 3.0 x 28 mm Cypher and Prox RPLB w/ 3.0 x 8 mm Cypher, RAYMON- Ostium RPDA w/ 2.5 x 28 mm Cypher 09/17/2007 Chronic diastolic (congestive) heart failure (Chronic) Non-rheumatic aortic stenosis (Chronic) Essential hypertension (Chronic) Hyperlipidemia (Chronic) Diabetes mellitus, type II (Chronic) Hypothyroidism (Chronic) Schizophrenia (Chronic) Anemia (Chronic) Follows with Dr Son 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) Hospital Course and Treatment Operations: None Summary of Care Provided: Patient is an 80-year-old female who presented to the ED on 11/21/2020 with a chief complaint of 2-day history of tremors, unsteady gait, and inability to care for self, dysuria, burning with urination and chest pain. Patient was admitted for acute UTI, unspecified chest pain and prolonged QTC, acute on chronic symptomatic anemia and YOSELIN on CKD 3. Dr. Harper has agreed to follow as an outpatient and believes patient can be managed medically. Fever and abdominal pain related to acute UTI have resolved and patient feels strong enough to go home. Discharge today. 1) Acute UTI Abnormal UA evident in the ED. WBCs are low at 3, remainder of CBC and BMP unremarkable. Vital signs stable, afebrile. Initiated on ceftriaxone in the ED. Plan; initiated cefdinir 300 mg p.o. twice daily x5 days on discharge. 2) Chest pain and prolonged QTC EKG demonstrated ST depressions in leads V4 to V6. Elevated troponins. Plan; follow-up with Dr. Hraper as an outpatient, continue isosorbide nitrate at 30 mg p.o. daily, aspirin, Plavix, statin and Nitro tab as needed. 3) YOSELIN on CKD III Resolved, creatinine 0.82. 4) Acute on chronic symptomatic anemia Patient's hemoglobin was 10 a week ago per old records, currently 8.6 after 2 units of packed red blood cells were infused. Unclear etiology, follows with Dr. Son (oncologist). Plan; follow with Dr. Son as an outpatient. 5) CHF with preserved ejection fraction Recent echocardiogram demonstrates an EF of 55% with stage I diastolic dysfunction. Anterior apex was mildly hypokinetic. Lateral apex was mildly hypokinetic. Left atrium was moderately enlarged. Mild mitral valve insufficiency was noted. Trivial tricuspid valve insufficiency was noted. Right ventricular systolic pressure was 21mmHg. Mild aortic stenosis was noted. Plan; continue Coreg, Losartan and Lasix at home. DVT prophylaxis - SCDs Patient seen by Wagner Rebolledo PA-C, under the supervision of Dr. Kern. Patient Problems: Active and Suspected Problems (Last Reviewed 11/21/20 @ 06:[address] Reji Galindo MD) YOSELIN (acute kidney injury) (Acute) UTI (urinary tract infection) (Acute) Generalized weakness (Acute) Subjective: Patient is an 80-year-old female comfortably resting in a chair, alert and oriented x3. Denies chest pain, shortness of breath, palpitations, fever, chills, N/V/D. Objective: Microbiology 11/21/20 04:05 Urine, Catheterized Urine Culture - Final Enterococcus spp 11/21/20 05:12 Stool Stool Occult Blood (TARUN) - Final - Physical Exam Vitals/I&O's: Vital Signs Temp Pulse Resp BP Pulse Ox 98.2 F 58 L 14 98/52 L 100 11/23/20 13:25 11/23/20 13:25 11/23/20 13:25 11/23/20 13:25 11/23/20 13:25 Oxygen Delivery Method Room Air Weight: 189 lb 2.506 oz Body Mass Index (BMI) 31.4 Finger Stick Blood Glucose 270 Intake and Output for Last 24 Hours 11/21/20 11/22/20 11/23/20 23:59 23:59 23:59 Intake Total 1060 / 1060 950 / 950 690 / 690 Output Total 1200 / 1200 1100 / 1100 550 / 550 Balance -140 / -140 -150 / -150 140 / 140 General: Alert, Oriented x3, Cooperative HEENT: Atraumatic, PERRLA, EOMI, Normocephalic Neck: Supple, No JVD, Negative Carotid Bruits Lungs: Clear to auscultation, Normal air movement Cardiovascular: Regular rate, No murmurs Abdomen: Bowel Sounds Present, Soft, Non Tender - Improvement from yesterday. Extremities: No edema, Capillary Refill Less than 3 Seconds, Tenderness - Patient reports chronic tenderness of her legs, no swelling evident. Skin: No rashes, No breakdown Musculoskeletal: No Tenderness to Palpation of Joints or Extremities Neurological: Cranial nerves II-XII grossly intact Psych/Mental Status: Normal Affect, Appropriate Microbiology Past 72 Hours 11/21/20 04:05 Urine, Catheterized Urine Culture - Final Enterococcus spp 11/21/20 05:12 Stool Stool Occult Blood (TARUN) - Final Laboratory Results 11/22/20 17:09: POC Glucose 262 H 11/22/20 21:34: POC Glucose 205 H 11/23/20 06:05: WBC 3.2 L, RBC 2.84 L, Hgb 8.6 L, Hct 27.1 L, MCV 95.4, MCH 30.3, MCHC 31.7 L, RDW Std Deviation 56.0 H, RDW Coeff of Conchis 16.8 H, Plt Count 113 L, MPV 10.3, Immature Gran % (Auto) 0.300, Neut % (Auto) 39.5 L, Lymph % (Auto) 44.2 H, Davis % (Auto) 10.7 H, Eos % (Auto) 4.7, Baso % (Auto) 0.6, Absolute Neuts (auto) 1.3 L, Absolute Lymphs (auto) 1.41, Nucleated RBC % 0 11/23/20 06:05: Sodium 139, Potassium 3.8, Chloride 105, Carbon Dioxide 30.0, Anion Gap 4 L, BUN 33 H, Creatinine 0.82, Estim Creat Clear Calc 48.42, Est GFR (MDRD) Af Amer 86, Est GFR (MDRD) Non-Af 71, BUN/Creatinine Ratio 40.1 H, Glucose 112 H, Calcium 8.5, Magnesium 2.2 11/23/20 06:31: POC Glucose 120 H 11/23/20 11:51: POC Glucose 227 H Current Medications Acetaminophen (Acetaminophen 325 Mg Tablet) 650 mg PO Q6H PRN PRN PRN Reason: Pain Score 1-10/Temp > 100.7 F Ascorbic Acid (Ascorbic Acid 500 Mg Tablet) 500 mg PO DAILY [facility] Last Admin: 11/23/20 09:46 Dose: 500 mg Documented by: Aspirin (Aspirin 81 Mg Tab.Chew) 81 mg PO DAILY@0800 [facility] Last Admin: 11/23/20 08:37 Dose: 81 mg Documented by: Carvedilol (Carvedilol 3.125 Mg Tablet) 3.125 mg PO BIDCM [facility] Last Admin: 11/23/20 08:35 Dose: 3.125 mg Documented by: Clopidogrel Bisulfate (Clopidogrel Bisulfate 75 Mg Tablet) 75 mg PO DAILY [facility] Last Admin: 11/23/20 09:46 Dose: 75 mg Documented by: Dextrose (Dextrose 50%-Water 25 Gm/50 Ml Disp.Syrin) 0 gm IV X1 PRN; Protocol PRN Reason: Hypoglycemia Enoxaparin Sodium (Enoxaparin 100 Mg/Ml Syringe) 85 mg SC DAILY [facility] Last Admin: 11/22/20 06:32 Dose: Not Given Documented by: Folic Acid (Folic Acid 1 Mg Tablet) 1 mg PO DAILY [facility] Last Admin: 11/23/20 09:46 Dose: 1 mg Documented by: Glucagon (Glucagon 1 Mg/Ml Syringe) 1 mg IM .X1 PRN PRN Reason: Hypoglycemia Haloperidol (Haloperidol 1 Mg Tablet) 1 mg PO BID PRN PRN Reason: NAUSEA Ceftriaxone Sodium (Rocephin) 1 gm in 50 mls @ 100 mls/hr IV Q24 [facility] Last Infusion: 11/23/20 10:33 Dose: Infused Documented by: Sodium Chloride () 250 mls @ 15 mls/hr IV .[id number] PRN PRN Reason: Saline Flush Sodium Chloride () 250 mls @ 15 mls/hr IV .[id number] PRN PRN Reason: Additional IVPB Infusion Insulin Glargine (Insulin Glargine 100 Units/Ml Pen) 34 units SC 1100 [facility] Last Admin: 11/23/20 11:52 Dose: 34 units Documented by: Insulin Human Lispro (Insulin Lispro 100 Unit/Ml Insuln.Pen) 0 unit SC ACHS [facility]; Protocol Last Admin: 11/23/20 11:52 Dose: 2 units Documented by: Isosorbide Mononitrate (Isosorbide Mononitrate 30 Mg Tablet) 30 mg PO DINNER [facility] Last Admin: 11/22/20 17:11 Dose: 30 mg Documented by: Levothyroxine Sodium (Levothyroxine 100 Mcg Tablet) 100 mcg PO DAILY@0600 [facility] Last Admin: 11/23/20 06:27 Dose: 100 mcg Documented by: Lidocaine (Lidocaine 5% Patch) 2 patch TOPICAL DAILY [facility]; Protocol Last Admin: 11/23/20 09:46 Dose: 2 patch Documented by: Losartan Potassium (Losartan Potassium 25 Mg Tablet) 25 mg PO DAILY [facility] Last Admin: 11/23/20 09:46 Dose: 25 mg Documented by: Mirabegron (Mirabegron 25 Mg Tab.Er.24h) 25 mg PO DAILY [facility] Last Admin: 11/23/20 09:46 Dose: 25 mg Documented by: Pantoprazole Sodium (Pantoprazole Sodium 40 Mg Tablet) 40 mg PO DAILY [facility] Last Admin: 11/23/20 09:46 Dose: 40 mg Documented by: Polyethylene Glycol (Polyethylene Glycol 3350 17 Gm Packet) 17 gm PO DAILY PRN PRN Reason: Constipation Pravastatin Sodium (Pravastatin 80 Mg Tablet) 80 mg PO QHS [facility] Last Admin: 11/22/20 21:36 Dose: 80 mg Documented by: Prochlorperazine Edisylate (Prochlorperazine 10 Mg/2 Ml Vial) 5 mg IV Q4H PRN PRN PRN Reason: Breakthrough nausea/vomiting Ranolazine (Ranolazine 500 Mg Tablet) 1,000 mg PO BID [facility] Last Admin: 11/23/20 09:46 Dose: 1,000 mg Documented by: Senna/Docusate Sodium (Senna/Docusate Sodium 1 Tablet) 2 tablet PO BID PRN PRN PRN Reason: Constipation Last Admin: 11/22/20 17:11 Dose: 2 tablet Documented by: Sodium Chloride (0.9% Saline Lock 10 Ml Syringe) 10 - 40 ml IV UD PRN PRN Reason: SALINE FLUSH Last Admin: 11/23/20 09:45 Dose: 10 ml Documented by: Spironolactone (Spironolactone 25 Mg Tablet) 25 mg PO QODAY [facility] Last Admin: 11/22/20 09:10 Dose: 25 mg Documented by: Discharge Diet: No Restrictions Discharge Activity: Return to Normal Activity Home Medications: Medications to take at Discharge Aspirin [Aspirin, Baby] 81 mg PO DAILY@0800 06/30/17 Nitroglycerin [Nitrostat] 0.4 mg SL PRN PRN 06/30/17 ascorbic acid (vitamin C) 500 mg tablet 500 mg PO DAILY 09/13/18 Insulin Glargine,Hum.rec.anlog [Soha Soljayroar] 34 unit SC DAILY 04/23/19 Carvedilol [Coreg] 3.125 mg PO BIDCM 06/24/19 Cholecalciferol (Vitamin D3) [Vitamin D3] 5,000 unit PO DAILY 06/24/19 Levothyroxine [Synthroid] 100 mcg PO DAILY 07/24/19 Folic Acid 1 mg PO DAILY 02/10/20 Insulin Regular, Human [Humulin R] 5 unit SQ TIDCM 02/10/20 losartan 25 mg tablet 25 mg PO DAILY #30 tab 04/29/20 mirabegron 25 mg tablet,extended release 24 hr 25 mg PO DAILY 06/17/20 pravastatin 80 mg tablet 80 mg PO DAILY #90 tab 08/13/20 Clopidogrel Bisulfate [Clopidogrel] 75 mg PO DAILY 10/20/20 Pantoprazole Sodium [Protonix] 40 mg PO DAILY 10/20/20 Ranolazine [Ranolazine ER] 1,000 mg PO BID 10/20/20 Haloperidol [Haldol] 1 mg PO BID PRN 11/13/20 Spironolactone 25 mg PO QODAY 11/13/20 Albuterol IH (ProAir) [Proair Hfa] 2 puff INHALATION Q4H PRN PRN 11/14/20 Pnv No.95/Ferrous Fum/Folic AC [ Caplet] 1 each PO DAILY 11/14/20 Polyethylene Glycol 3350 [Miralax] 17 gm PO DAILY PRN 11/14/20 Furosemide 40 mg PO BID 11/21/20 Isosorbide Mononitrate [Isosorbide Mononitrate ER] 30 mg PO DINNER 11/21/20 Metolazone 2.5 mg PO WEFR 11/21/20 Potassium Chloride 20 meq PO DAILY 11/21/20 Cefdinir 300 mg PO BID #10 capsule 11/23/20 Following Prescriptions Were Given to Patient: Cefdinir 300 mg PO BID #10 capsule Transmission Status: Received by [facility] - [place] - [address] Primary Care Physician: Diana Cohen MD [Primary Care Provider] - Please follow up with your Primary Care Physician in: Within the next 2 weeks Disposition: Asstd Living/Non-Skill MI Minutes spent on discharge:: 35 Patient Condition:: Good Medical Necessity - Tobacco Use Smoking Status: Never smoker Meaningful Use Info Meaningful Use Diagnoses (Choose all that apply): None applicable <Gage Kern - Last Filed: 11/23/20 15:34> Discharge Date and Diagnosis - Primary Discharge Diagnosis Acute Problems: Active Problems (Last Reviewed 11/21/20 @ 06:[address] Reji Galindo MD) YOSELIN (acute kidney injury) (Acute) UTI (urinary tract infection) (Acute) Generalized weakness (Acute) - Secondary Discharge Diagnosis Chronic Problems: Chronic Problems (Last Reviewed 11/21/20 @ 06:[address] Reji Galindo MD) CAD (coronary artery disease) (Chronic) Acute exacerbation of CHF (congestive heart failure) (Chronic) Atherosclerotic heart disease otoe-[place] coronary artery w/angina pectoris (Chronic) History of coronary artery stent placement (Chronic 08/20/18) PCI of ostial and mid LCx ISR with laser atherectomy, balloon angioplasty 08/20/18 PTCA and laser atherectomy-Prox LCx 02/03/2018; POBA-ostial/prox LCx 11/09/2017; ZXM-XOQ-Zbze LCx w/ 2.5 x 20 mm Synergy Stent, RAYMON-Distal LM-into the Ostium of LAD w/ 4.0 x 16 mm Synergy Stent 07/05/2017; POBA-Ostium and Prox LCx 04/19/2017; PCI-Rotational Fxubvgiyarv-QKZ-DUS with a 2.75 x 38 mm Promus Premier drug eluting stent 12/15/13; RAYMON-Mid RPLB w/ 3.0 x 28 mm Cypher and Prox RPLB w/ 3.0 x 8 mm Cypher, RAYMON- Ostium RPDA w/ 2.5 x 28 mm Cypher 09/17/2007 Chronic diastolic (congestive) heart failure (Chronic) Non-rheumatic aortic stenosis (Chronic) Essential hypertension (Chronic) Hyperlipidemia (Chronic) Diabetes mellitus, type II (Chronic) Hypothyroidism (Chronic) Schizophrenia (Chronic) Anemia (Chronic) Follows with Dr Son 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) Hospital Course and Treatment Summary of Care Provided: This patient was seen in conjunction with Wagner Rebolledo PA-C. I have independently interviewed and examined the patient and reviewed pertinent historical, laboratory, and other data. Please refer to Wagner Rebolledo PA-C's note for details of this patient's presentation, findings, and recommendations. I have reviewed Wagner Rebolledo PA-C's note and concur with documented findings. In brief, patient is a 80-year-old lady admitted with progressive generalized weakness. She was found to be anemic. She was also found to have abnormal urinalysis consistent with UTI admitted to monitored bed for further management Assessment: 1. Acute cystitis with Enterococcus species 2. Angina pectoris secondary to coronary artery disease 3. Renal insufficiency?Resolved 4. Symptomatic anemia status post transfusion with 2 unit PRBC 5. Chronic congestive heart failure with preserved ejection fraction 6. Coronary artery disease 7. Hypothyroidism 8. GERD 9. Diabetes mellitus type 2 10. Dyslipidemia 11. Essential hypertension 12. Non Alcoholic fatty liver disease 13. Chronic thrombocytopenia secondary to #12 Hospital course: As documented above - Physical Exam Vitals/I&O's: Vital Signs Temp Pulse Resp BP Pulse Ox 98.2 F 58 L 14 98/52 L 100 11/23/20 13:25 11/23/20 13:25 11/23/20 13:25 11/23/20 13:25 11/23/20 13:25 Oxygen Delivery Method Room Air Weight: 85.8 kg Body Mass Index (BMI) 31.4 Finger Stick Blood Glucose 270 Intake and Output for Last 24 Hours 11/21/20 11/22/20 11/23/20 23:59 23:59 23:59 Intake Total 1060 / 1060 950 / 950 690 / 690 Output Total 1200 / 1200 1100 / 1100 550 / 550 Balance -140 / -140 -150 / -150 140 / 140 Microbiology Past 72 Hours 11/21/20 04:05 Urine, Catheterized Urine Culture - Final Enterococcus spp 11/21/20 05:12 Stool Stool Occult Blood (TARUN) - Final Laboratory Results 11/22/20 17:09: POC Glucose 262 H 11/22/20 21:34: POC Glucose 205 H 11/23/20 06:05: WBC 3.2 L, RBC 2.84 L, Hgb 8.6 L, Hct 27.1 L, MCV 95.4, MCH 30.3, MCHC 31.7 L, RDW Std Deviation 56.0 H, RDW Coeff of Conchis 16.8 H, Plt Count 113 L, MPV 10.3, Immature Gran % (Auto) 0.300, Neut % (Auto) 39.5 L, Lymph % (Auto) 44.2 H, Davis % (Auto) 10.7 H, Eos % (Auto) 4.7, Baso % (Auto) 0.6, Absolute Neuts (auto) 1.3 L, Absolute Lymphs (auto) 1.41, Nucleated RBC % 0 11/23/20 06:05: Sodium 139, Potassium 3.8, Chloride 105, Carbon Dioxide 30.0, Anion Gap 4 L, BUN 33 H, Creatinine 0.82, Estim Creat Clear Calc 48.42, Est GFR (MDRD) Af Amer 86, Est GFR (MDRD) Non-Af 71, BUN/Creatinine Ratio 40.1 H, Glucose 112 H, Calcium 8.5, Magnesium 2.2 11/23/20 06:31: POC Glucose 120 H 04/20/21 11:51: POC Glucose 227 H Inpatient E&M: [id number] Disch Hosp
== END 2020-11-23 15:00 | disposition home or self-care (01) | DRG 690 ==
LOC: ED 05:30 → PCU 06:36
PROVIDERS: Internal Medicine; Admitting Provider Hospitalist; Emergency Provider Emergency Medicine; PCP Internal Medicine; Visit Provider Internal Medicine
DX: N30.00 Acute cystitis without hematuria (principal); N17.9 Acute kidney failure, unspecified; I50.32 Chronic diastolic (congestive) heart failure; I11.0 Hypertensive heart disease with heart failure; B95.2 Enterococcus as the cause of diseases classified elsewhere; I25.119 Atherosclerotic heart disease of native coronary artery with unspecified angina pectoris; I35.0 Nonrheumatic aortic (valve) stenosis; E78.5 Hyperlipidemia, unspecified; E03.9 Hypothyroidism, unspecified; F20.9 Schizophrenia, unspecified; E11.65 Type 2 diabetes mellitus with hyperglycemia; I25.2 Old myocardial infarction; D69.59 Other secondary thrombocytopenia; D64.9 Anemia, unspecified; K21.9 Gastro-esophageal reflux disease without esophagitis; K75.81 Nonalcoholic steatohepatitis (NASH); E66.9 Obesity, unspecified; R07.89 Other chest pain; R94.31 Abnormal electrocardiogram [ECG] [EKG]; R74.8 Abnormal levels of other serum enzymes; I27.20 Pulmonary hypertension, unspecified; E11.649 Type 2 diabetes mellitus with hypoglycemia without coma; E87.6 Hypokalemia; S09.90XA Unspecified injury of head, initial encounter; W19.XXXA Unspecified fall, initial encounter; Y93.9 Activity, unspecified; Y92.119 Unspecified place in children's home and orphanage as the place of occurrence of the external cause; K74.60 Unspecified cirrhosis of liver; Z95.5 Presence of coronary angioplasty implant and graft; Z68.32 Body mass index [BMI] 32.0-32.9, adult; Z79.02 Long term (current) use of antithrombotics/antiplatelets; Z79.4 Long term (current) use of insulin; Z79.82 Long term (current) use of aspirin; Z79.890 Hormone replacement therapy; Z79.899 Other long term (current) drug therapy; Z87.891 Personal history of nicotine dependence
CPT/HCPCS: 36415; 70450; 73502; 80048; 81001; 82274; 82962; 83735; 84484; 85014; 85018; 85025; 86850; 86900; 86901; 86920; 86922; 87077; 87086; 87088; 87186; 92507; 92526; 92610; 93005; 97110; 97161; 97162; 97165; 97166; 97530; 97535; 97802; 99285; J7030; J7040; J7050; P9016; A4216; J2405

== ENCOUNTER 2020-11-30 08:00 | Inpatient (IN) | payer MEDICARE, MEDICAID, SELFPAY ==
[2020-11-21 07:38] VITALS: BMI 31.4
[2020-11-30] VITALS (12 sets, daily range): BP systolic 89–109; BP diastolic 37–54; PULSE 58–66; RESP 14–16; TEMP 36.6–36.8; O2SAT 96–100; BMI 29.0
--- NOTE | 2020-11-30 09:03 | EKG12_ITS ---
Test Reason : SOB Blood Pressure : / mmHG Vent. Rate : 066 BPM Atrial Rate : 182 BPM P-R Int : 000 ms QRS Dur : 100 ms QT Int : 368 ms P-R-T Axes : 000 -11 194 degrees QTc Int : 385 ms Sinus vs Ectopic Atrial Rhythm ST & T wave abnormality, consider inferior ischemia ST & T wave abnormality, consider anterolateral ischemia Abnormal ECG Confirmed by JUAN ALBERTO CHEW, RC ([id number]), digital editor LAURIE MCCLELLAND ([id number]) on 12/02/2020 9:11:40 AM Referred By: Confirmed By:RC AVENDANO MD
[2020-11-30 09:06] LABS: Bacteria 0 SEEN /hpf (None Seen); Mucous, Urine 0 SEEN /hpf (<or=2+); Red Blood Cells-Urine 0 SEEN /hpf (0-5); White Blood Cells 0 SEEN /hpf (0-5)
[2020-11-30 09:12] LABS: Color, Urine Yellow (Yellow); Glucose, Dipstick Normal (Normal); Ketone-Dipstick Negative (Negative); Leukocyte Esterase-Dipstick Negative /ul (Negative); Nitrite-Dipstick Negative (Negative); Occult Blood-Urine Negative /ul (Negative); Protein-Dipstick Negative (Negative); Specific Gravity, Urine 1.015 (1.002-1.030); Urine Bilirubin Dipstick Negative (Negative); Urine Clarity Clear (Clear); Urine Urobilinogen Normal (Normal)
[2020-11-30 09:20] LABS: Squamous Epithelial Cells - UA 0-5 SEEN /hpf (5-10); Triple Phosphate Crystals Ur RARE /hpf (<or=1+)
--- NOTE | 2020-11-30 09:32 | EX.ED.DYSGE1 ---
HPI Narrative Narrative: Patient presenting for evaluation secondary to altered mental status. Patient resides in a fpc, underwent recent treatment for a urinary tract infection. Per fpc staff the patient had altered mental status today and was confused. She did not have any lateralizing weakness it was associated with this. Patient was brought to the emergency department. Patient is alert and oriented x3, really has no complaints currently denies any new illnesses, pain, or anything else on review of systems. Review of systems otherwise negative. [facility] Medical History (Updated 11/30/20 @ 10:[address] Dax Quintana MD) Acute respiratory failure with hypoxia Acute respiratory failure with hypoxia and hypercapnia Anemia Atherosclerotic heart disease [place] coronary artery w/angina pectoris Chronic diastolic (congestive) heart failure Diabetes mellitus, type II Essential hypertension GI bleed (05/07/20) History of non-ST elevation myocardial infarction (NSTEMI) (03/26/20) Hyperlipidemia Hypothyroidism Lactic acidosis 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) Mitral valve insufficiency Non-rheumatic aortic stenosis Non-rheumatic mitral regurgitation Nonrheumatic tricuspid valve regurgitation NSTEMI (non-ST elevated myocardial infarction) Obesity (BMI 30.0-34.9) Pancytopenia Postoperative haemorrhage Schizophrenia Thrombocytopenia Tricuspid valve insufficiency Home Medications aspirin 81 mg PO DAILY@0800 06/30/17 [History Last Taken 11/20/20] nitroglycerin 0.4 mg SL PRN PRN 06/30/17 [History Last Taken 09/13/20 15:00] ascorbic acid (vitamin C) 500 mg tablet 500 mg PO DAILY 09/13/18 [History Last Taken 11/20/20] insulin glargine U-300 conc 34 unit SC DAILY 04/23/19 [History Last Taken 11/15/20] carvedilol 3.125 mg PO BIDCM 06/24/19 [History Last Taken 11/20/20] cholecalciferol (vitamin D3) 5,000 unit PO DAILY 06/24/19 [History Last Taken 11/20/20] levothyroxine 100 mcg PO DAILY 07/24/19 [History Last Taken 11/13/20] folic acid 1 mg PO DAILY 02/10/20 [History Last Taken 11/13/20] insulin regular human 5 unit SQ TIDCM 02/10/20 [History Last Taken 11/15/20] losartan 25 mg tablet 25 mg PO DAILY #30 tab 04/29/20 [Rx Last Taken 11/13/20] mirabegron 25 mg tablet,extended release 24 hr 25 mg PO DAILY 06/17/20 [History Last Taken 11/13/20] pravastatin 80 mg tablet 80 mg PO DAILY #90 tab 08/13/20 [Rx Last Taken 11/20/20] clopidogrel 75 mg PO DAILY 10/20/20 [History Last Taken 11/13/20] pantoprazole 40 mg PO DAILY 10/20/20 [History Last Taken 11/13/20] ranolazine 1,000 mg PO BID 10/20/20 [History Last Taken 11/20/20] haloperidol 1 mg PO BID PRN 11/13/20 [History Last Taken Unknown] spironolactone 25 mg PO QODAY 11/13/20 [History Last Taken 11/12/20] PNV cmb#95-ferrous fumarate-FA 1 each PO DAILY 11/14/20 [History Last Taken 11/20/20] albuterol sulfate 2 puff INHALATION Q4H PRN PRN 11/14/20 [History Last Taken Unknown] polyethylene glycol 3350 17 gm PO DAILY PRN 11/14/20 [History Last Taken Unknown] furosemide 40 mg PO BID 11/21/20 [History Last Taken 11/20/20] isosorbide mononitrate 30 mg PO DINNER 11/21/20 [History Last Taken 11/20/20] metolazone 2.5 mg PO WEFR 11/21/20 [History Last Taken 11/12/20] potassium chloride 20 meq PO DAILY 11/21/20 [History Last Taken 11/13/20] cefdinir 300 mg PO BID #10 capsule 11/23/20 [Rx Last Taken Unknown] Allergy/AdvReac Type Severity Reaction Status Date / Time aripiprazole [From Abilify] Allergy Intermediate it over Verified 11/21/20 03:29 powered me lisinopril Allergy Intermediate Unknown Verified 11/21/20 03:29 atorvastatin calcium AdvReac Unknown Verified 11/21/20 03:29 [From Lipitor] rosiglitazone maleate AdvReac Other Verified 11/21/20 03:29 [From Avandia] Family History Mother CAD (coronary artery disease) Father CAD (coronary artery disease) Surgical History History of appendectomy History of cholecystectomy History of colonoscopy (04/2020) History of coronary artery stent placement (08/20/18) History of esophagogastroduodenoscopy (EGD) (04/2020) History of left heart catheterization (06/25/19) History of spinal fusion History of tonsillectomy and adenoidectomy Social History Smoking Status: Never smoker alcohol intake: current details: occasional substance use type: does not use diet: low salt caffeine: No what type of physical activity do you participate in: walking frequency: daily seatbelt use: always do you feel safe at home: Yes ROS ROS ED Constitutional Constitutional ED: Denies fever(s) Eyes Eyes: Denies change in vision ENT ENT ED: Denies ear pain, rhinorrhea or sore throat Cardiovascular Cardiovascular: Denies chest pain Respiratory/Chest Respiratory/Chest: Denies cough or dyspnea Gastrointestinal Gastrointestinal: Denies abdominal pain, nausea or vomiting Genitourinary Genitourinary ED: Denies dysuria Musculoskeletal Musculoskeletal: Denies myalgias Integumentary Denies rash Neurologic Neurologic: Denies headache(s), paresthesias or weakness Psychiatric Psychiatric: Denies depression Endocrine Endocrinology: Denies polyuria Allergic/Immunologic Allergic/Immunologic ED: Denies urticaria EXAM Physical Exam Const Vital Signs: 11/30/20 09:27 Pulse Rate 63 Respiratory Rate 14 Blood Pressure 101/43 L Blood Pressure Mean 62 Pulse Ox 99 Positive well nourished and well developed General Appearance ED: well developed and NAD HEENT Reports moist mucous membranes Negative for trauma or tenderness Eyes Negative for PERRL or EOMs intact bilaterally Neck No supple Resp No normal respiratory effort and No clear to auscultation bilaterally Auscultation: Negative for rales, rhonchi or wheezes Cardio regular rate, regular rhythm and no murmurs Cardio Narrative: 2+ radial pulses bilaterally symmetric GI normal to inspection, nondistended, normoactive bowel sounds and non-tender Palpation: soft Extremity normal to inspection Extremity Narrative: Trace bilateral lower extremity pitting edema is noted Neuro oriented x3 and CN's II-XII intact bilaterally Neuro Narrative: Patient is alert and oriented x3, no lateralizing deficits, NIH stroke scale is 0 Sensorium / Orientation: alert Skin no rashes or lesions noted MDM MDM MDM Narrative Medical decision making narrative: Patient presented secondary to undifferentiated altered mental status. Upon the patient's arrival and my physical exam she does not seem significantly altered as she is alert and oriented she has no lateralizing deficits I do not feel that this presentation of a stroke, or that CT imaging of the brain is indicated. An EKG was obtained on this patient shows a sinus rhythm of 66 with anterior and inferior ST changes that are present on a prior EKG on November 22, they do not appear to be exaggerated or worsened. Patient's urinalysis was negative for infection. Chemistry shows no significant electrolyte derangements patient was mildly hypokalemic at 3.1, creatinine was 1.3 with a BUN at 61. Patient's troponin however was pathologically elevated. Trending her back, it seems that she chronically has at least mildly elevated troponins but this is typically not more than 0.1-0.2 and today it is 2.4. She is not complaining of any active chest pain. I do believe that she requires admission for further observation. Patient will be admitted under the hospitalist. Lab Data Labs: Laboratory Results - last 24 hr 11/30/20 11/30/20 11/30/20 08:15 08:15 08:21 Sodium Cancelled Potassium Cancelled Chloride Cancelled Carbon Dioxide Cancelled Anion Gap Cancelled BUN Cancelled Creatinine Cancelled Estim Creat Clear Calc Cancelled Est GFR (MDRD) Af Amer Cancelled Est GFR (MDRD) Non-Af Cancelled BUN/Creatinine Ratio Cancelled Glucose Cancelled Calcium Cancelled Troponin I Cancelled Urine Color Yellow Urine Clarity Clear Urine pH 6.0 Ur Specific [place] 1.015 Urine Protein Negative Urine Glucose (UA) Normal Urine Ketones Negative Urine Occult Blood Negative Urine Nitrite Negative Urine Bilirubin Negative Urine Urobilinogen Normal Ur Leukocyte Esterase Negative Urine RBC 0 SEEN Urine WBC 0 SEEN Ur Squamous Epith Cells 0-5 SEEN Triple Phos Crystals RARE Urine Bacteria 0 SEEN Urine Mucus 0 SEEN POC Glucose 178 H 11/30/20 09:43 Sodium 134 L Potassium 3.1 L Chloride 97 L Carbon Dioxide 31.0 Anion Gap 6 BUN 61 H Creatinine 1.31 H Estim Creat Clear Calc Est GFR (MDRD) Af Amer 50 L Est GFR (MDRD) Non-Af 41 L BUN/Creatinine Ratio 46.6 H Glucose 177 H Calcium 8.9 Troponin I 2.480 H* Urine Color Urine Clarity Urine pH Ur Specific [place] Urine Protein Urine Glucose (UA) Urine Ketones Urine Occult Blood Urine Nitrite Urine Bilirubin Urine Urobilinogen Ur Leukocyte Esterase Urine RBC Urine WBC Ur Squamous Epith Cells Triple Phos Crystals Urine Bacteria Urine Mucus POC Glucose EKG Initial EKG: Attestation: I personally reviewed and interpreted this EKG as follows: Comments: Sinus rhythm at 66 with anterior and inferior ST changes consistent w prior Discharge Plan Dx/Rx/DC Orders Clinical Impression: Encephalopathy acute, Elevated troponin I level Disposition [facility]
[2020-11-30 10:00] LABS: Bedside Glucose 178 mg/dL (70-110)
[2020-11-30 10:13] LABS: Anion Gap 6 (5-15); BUN 61 mg/dL (7-18); BUN/Creat Ratio 46.6 RATIO (10-20); Calcium,Total 8.9 mg/dL (8.5-10.1); Chloride 97 mmol/L (98-107); Creatinine, Serum 1.31 mg/dL (0.55-1.02); EST Glomerular Filtration Rate 41 mL/min (>60); Est Glom Filt Rate - Afr Amer 50 mL/min (>60); Glucose 177 mg/dL (74-106); Potassium 3.1 mmol/L (3.5-5.1); Sodium Level 134 mmol/L (136-145)
--- NOTE | 2020-11-30 10:46 | ED.RN ---
DR. FAIR AWARE OF VITALS.
--- NOTE | 2020-11-30 11:04 | HP.PCM_ITS ---
HPI - General General Date of Admission: 11/30/20 HPI Narrative DANI JOHNSON, is a 80 F who presents to ED for elevated troponin. Pt is confused, but denies chest pain. In ED, troponin was 2.4. Pt was admitted 1 week ago and found to be anemic with UTI and also with troponin of and plan for medical mgmt. Troponin at that time went up to 0.864. [facility] Medical History (Updated 11/30/20 @ 11:[address] Marty Castillo, DO) Acute respiratory failure with hypoxia Acute respiratory failure with hypoxia and hypercapnia Anemia Atherosclerotic heart disease [place] coronary artery w/angina pectoris Chronic diastolic (congestive) heart failure Diabetes mellitus, type II Essential hypertension GI bleed (05/07/20) History of non-ST elevation myocardial infarction (NSTEMI) (03/26/20) Hyperlipidemia Hypothyroidism Lactic acidosis 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) Mitral valve insufficiency Non-rheumatic aortic stenosis Non-rheumatic mitral regurgitation Nonrheumatic tricuspid valve regurgitation NSTEMI (non-ST elevated myocardial infarction) Obesity (BMI 30.0-34.9) Pancytopenia Postoperative haemorrhage Schizophrenia Thrombocytopenia Tricuspid valve insufficiency Home Medications aspirin 81 mg PO DAILY@0800 06/30/17 [History Last Taken 11/20/20] nitroglycerin 0.4 mg SL PRN PRN 06/30/17 [History Last Taken 09/13/20 15:00] ascorbic acid (vitamin C) 500 mg tablet 500 mg PO DAILY 09/13/18 [History Last Taken 11/20/20] insulin glargine U-300 conc 34 unit SC DAILY 04/23/19 [History Last Taken 11/15/20] carvedilol 3.125 mg PO BIDCM 06/24/19 [History Last Taken 11/20/20] cholecalciferol (vitamin D3) 5,000 unit PO DAILY 06/24/19 [History Last Taken 11/20/20] levothyroxine 100 mcg PO DAILY 07/24/19 [History Last Taken 11/13/20] folic acid 1 mg PO DAILY 02/10/20 [History Last Taken 11/13/20] insulin regular human 5 unit SQ TIDCM 02/10/20 [History Last Taken 11/15/20] losartan 25 mg tablet 25 mg PO DAILY #30 tab 04/29/20 [Rx Last Taken 11/13/20] mirabegron 25 mg tablet,extended release 24 hr 25 mg PO DAILY 06/17/20 [History Last Taken 11/13/20] pravastatin 80 mg tablet 80 mg PO DAILY #90 tab 08/13/20 [Rx Last Taken 11/20/20] clopidogrel 75 mg PO DAILY 10/20/20 [History Last Taken 11/13/20] pantoprazole 40 mg PO DAILY 10/20/20 [History Last Taken 11/13/20] ranolazine 1,000 mg PO BID 10/20/20 [History Last Taken 11/20/20] haloperidol 1 mg PO BID PRN 11/13/20 [History Last Taken Unknown] spironolactone 25 mg PO QODAY 11/13/20 [History Last Taken 11/12/20] PNV cmb#95-ferrous fumarate-FA 1 each PO DAILY 11/14/20 [History Last Taken 11/20/20] albuterol sulfate 2 puff INHALATION Q4H PRN PRN 11/14/20 [History Last Taken Unknown] polyethylene glycol 3350 17 gm PO DAILY PRN 11/14/20 [History Last Taken Unknown] furosemide 40 mg PO BID 11/21/20 [History Last Taken 11/20/20] isosorbide mononitrate 30 mg PO DINNER 11/21/20 [History Last Taken 11/20/20] metolazone 2.5 mg PO WEFR 11/21/20 [History Last Taken 11/12/20] potassium chloride 20 meq PO DAILY 11/21/20 [History Last Taken 11/13/20] cefdinir 300 mg PO BID #10 capsule 11/23/20 [Rx Last Taken Unknown] Allergy/AdvReac Type Severity Reaction Status Date / Time aripiprazole [From Abilify] Allergy Intermediate it over Verified 11/21/20 03:29 powered me lisinopril Allergy Intermediate Unknown Verified 11/21/20 03:29 atorvastatin calcium AdvReac Unknown Verified 11/21/20 03:29 [From Lipitor] rosiglitazone maleate AdvReac Other Verified 11/21/20 03:29 [From Avandia] Family History Mother CAD (coronary artery disease) Father CAD (coronary artery disease) Surgical History History of appendectomy History of cholecystectomy History of colonoscopy (04/2020) History of coronary artery stent placement (08/20/18) History of esophagogastroduodenoscopy (EGD) (04/2020) History of left heart catheterization (06/25/19) History of spinal fusion History of tonsillectomy and adenoidectomy Social History Smoking Status: Never smoker alcohol intake: current details: occasional substance use type: does not use diet: low salt caffeine: No what type of physical activity do you participate in: walking frequency: daily seatbelt use: always do you feel safe at home: Yes ROS ROS Narrative All ROS negative except as above in HPI. Vital Signs Vital Signs Vital Signs: 11/30/20 09:27 11/30/20 10:45 Temperature 36.6 C Temperature Source Temporal Pulse Rate 63 62 Respiratory Rate 14 15 Blood Pressure 101/43 L 90/42 L Blood Pressure Mean 62 58 Pulse Ox 99 100 Oxygen Delivery Method Room Air Physical Exam Const Constitutional Narrative: pleasantly confuse. afebrile. HEENT HEENT Narrative: AT NC Resp normal respiratory effort and normal air movement Cardio regular rate and regular rhythm GI soft to palpation, non-tender and non-distended Extremity no clubbing, cyanosis or edema General Extremity: no tenderness to palpation of joints or extremities Skin General Skin Exam: turgor normal Neuro CN's II-XII intact bilaterally and no focal motor deficits Neuro Narrative: no clonus Lab / Micro Data Result Diagrams: 11/30/20 08:15 11/30/20 09:43 Labs: Laboratory Results - last 24 hr 11/30/20 11/30/20 11/30/20 08:15 08:15 08:21 Sodium Cancelled Potassium Cancelled Chloride Cancelled Carbon Dioxide Cancelled Anion Gap Cancelled BUN Cancelled Creatinine Cancelled Estim Creat Clear Calc Cancelled Est GFR (MDRD) Af Amer Cancelled Est GFR (MDRD) Non-Af Cancelled BUN/Creatinine Ratio Cancelled Glucose Cancelled Calcium Cancelled Troponin I Cancelled Urine Color Yellow Urine Clarity Clear Urine pH 6.0 Ur Specific [place] 1.015 Urine Protein Negative Urine Glucose (UA) Normal Urine Ketones Negative Urine Occult Blood Negative Urine Nitrite Negative Urine Bilirubin Negative Urine Urobilinogen Normal Ur Leukocyte Esterase Negative Urine RBC 0 SEEN Urine WBC 0 SEEN Ur Squamous Epith Cells 0-5 SEEN Triple Phos Crystals RARE Urine Bacteria 0 SEEN Urine Mucus 0 SEEN POC Glucose 178 H 11/30/20 09:43 Sodium 134 L Potassium 3.1 L Chloride 97 L Carbon Dioxide 31.0 Anion Gap 6 BUN 61 H Creatinine 1.31 H Estim Creat Clear Calc Est GFR (MDRD) Af Amer 50 L Est GFR (MDRD) Non-Af 41 L BUN/Creatinine Ratio 46.6 H Glucose 177 H Calcium 8.9 Troponin I 2.480 H* Urine Color Urine Clarity Urine pH Ur Specific [place] Urine Protein Urine Glucose (UA) Urine Ketones Urine Occult Blood Urine Nitrite Urine Bilirubin Urine Urobilinogen Ur Leukocyte Esterase Urine RBC Urine WBC Ur Squamous Epith Cells Triple Phos Crystals Urine Bacteria Urine Mucus POC Glucose Micro: Microbiology 11/30/20 08:15 SARS-CoV-2 Antigen (Rapid) - Final Mucosa - Nasopharyngeal Assessment & Plan Assessment/Plan (1) Elevated troponin I level: Status: Acute Code(s): R77.8 - Other specified abnormalities of plasma proteins Plan: Has been elevated previously. Known circ lesion. Now troponin higher. consult cardiology for recommendations, though likely to continue with medical mgmt, I feel we need a definitive plan given this patients frequent hospitalization to mitigate hospitalizations as much as possible. Per Dr. Foster's note 08/11/2020: She does have a complicated history of coronary artery disease with her first c atheterization in 2007 where she underwent a drug-eluting stent to the right posterior descending artery and posterior lateral branch. She then subsequently underwent angioplasty and rotablation of her LAD in 2013. She then had an acute non-ST myocardial infarction in July 2017. Her troponin was elevated to 4.6. Patient was transferred to [facility] at that time where she did have angioplasty and stenting of her distal left main into the ostium of her LAD. In November 2017 she was hospitalized for a non-ST myocardial infarction. She underwent a diagnostic heart catheterization which demonstrated Left main coronary artery with mild disease. Left anterior descending artery previously stented and patent proximally and mid with severe distal disease. Ostial 95% circumflex artery stenosis and a diffusely diseased vessel. First obtuse marginal branch with ostial stenosis. Second obtuse marginal branch with diffuse disease. Dominant right coronary artery with diffuse disease. Preserved ejection fraction. She was transferred to [facility] where she underwent stenting to her ostial/proximal circumflex. In February2017 she was admitted to [facility] for chest discomfort and was noted to have any elevated chest discomfort. She did undergo PCI, PTCA only of the proximal circumflex on 02/03/2018. She then presented back to the emergency room on February 25 with chest discomfort, she was transferred up to [facility]. She did have a mildly elevated troponin. Repeat heart catheterization did not demonstrate any new findings from a heart catheterization earlier that month. Patient was noted to have low blood pressure so her Coreg and Norvasc were decreased. Patient returned in August 2018 with unstable angina and repeat catheterization demonstrated a critical in-stent restenosis at the bifurcation of her left main and left circumflex. She was transferred to [facility] where she underwent successful laser atherectomy for mid left circumflex in-stent restenosis, followed by balloon angioplasty only with a 3.0 ex-15 noncompliant balloon with minimal residual stenosis. The post angioplasty films, showed a well apposed stent with a heavily calcified ostium in the ostium was smaller in diameter than the proximal left circumflex due to the calcification. Addition to this extensive history she does have previous history of hypertension, hyperlipidemia, hypothyroidism, and schizophrenia. She has more recently developed a lower GI bleed for which she was transfused her Brilinta was changed over to Plavix. Her ejection fraction has remained preserved based on her last echocardiogram from February of this year. The anterior apex was noted to be mildly hypokinetic and she has had mild restriction of her aortic valve. She tells me that she is scheduled to have a hemoglobin check in a few days. In February of 2020, She presented to [facility] Emergency Department for altered mental status. She was admitted with non-ST elevated myocardial infarction with peak troponin of 9. Her hemoglobin was reduced and her she received 2 units of PRBCs. She was also treated for acute hypoxic and hypercapnic respiratory failure secondary to acute on chronic CHF. She was treated with IV Lasix and metolazone. No further cardiac intervention was recommended as she has been deemed not a candidate for further intervention. In March of 2020, Pt was hospitalized again in March for NSTEMI and diastolic CHF exacerbation. Troponin elevation to 26. Cardiology was consulted. As per her recent cath she has significant underlying circumflex disease. Unfortunately she had a decline in her Hgb to 6.8, with thrombocytopenia, and iron deficiency. She was transfused with 2 units of blood. Brillinta was discontinued. She was started on Isosorbide and diuretics were adjusted. It was felt that she first be evaluated for GI bleed. And then consider a heart cath on a OP basis. In april she underwent an EGD and colonoscopy. On 05/06/2020 she presented with bright red blood per rectum and was hospitalized for post operative bleed. Her Brilinta was held for 1 week and she was started on Plavix. In the past she has tried multiple different medications for her chest discomfort in addition to cardiac rehab in the ECP therapy. She was unable to tolerate ECP therapy. Cardiac rehab did not work for her due to transportation issues. She is declining increasing her Ranexa d/t hand. [] (2) Encephalopathy acute: Status: Acute Code(s): G93.40 - Encephalopathy, unspecified Plan: May be metabolic. Pt confused at baseline. Check head CT. (3) YOSELIN (acute kidney injury): Status: Acute Code(s): N17.9 - Acute kidney failure, unspecified Plan: Suspect prerenal. Hold diuretics and CAROL-. Monitor. OBSV E&M: 34140 Initial observation care L3
[2020-11-30 12:26] LABS: Bedside Glucose 139 mg/dL (70-110)
[2020-11-30 14:38] LABS: Absolute Lymphocyte Count 1.29 X10^3/uL (0.83-4.51); Absolute Neutrophil Count 2.6 X10^3/uL (2.0-7.7); Basophil# 0.01 X10^3/uL; Basophil% 0.2 % (0-1); Eosinophil# 0.13 X10^3/uL; Eosinophils% 3.1 % (0-5); Hemoglobin 6.3 g/dL (12.0-15.0); Lymphocyte # 1.29 X10^3/ul (0.83-4.51); Lymphocyte % 30.4 % (19-41); Mean Corp Hgb Conc 31.5 g/dL (32-36); Mean Corpuscular Hgb 30.9 pg (27.0-32.0); Mean Platelet Vol. 11.1 fl (6.2-12.0); Monocyte# 0.21 X10^3/uL; Monocyte% 4.9 % (0-10); NRBC Flagged by Analyzer 0 % (0-5); Neutrophil # 2.59 X10^3/uL (2.7-7.7); Neutrophil % 60.9 % (47-70); Platelet Count 138 K/mm3 (150-450); RBC Distribution Width CV 18.6 % (11.6-14.6); RBC Distribution Width SD 64.7 fl (35.1-43.9); Red Blood Count 2.04 M/mm3 (4.2-5.4); White Blood Count 4.3 K/mm3 (4.4-11.0)
--- NOTE | 2020-11-30 14:50 | CON.PCM.CA_ITS ---
Assessment & Plan Assessment/Plan (1) Elevated troponin I level: Status: Acute Code(s): R77.8 - Other specified abnormalities of plasma proteins Plan: The patient does have abnormal cardiac enzymes/troponin I levels. These findings are concerning for an acute non-ST segment elevation OR. It is unclear at this time whether this is related to a type I event based on the patient's underlying known CAD process and previous multiple PCI procedures versus a type II event from supply demand mismatch being brought out by her marked anemia. At the moment she appears to be without acute symptoms. At the present time she will continue to be monitored. Her cardiac enzymes can be followed. Her ECG can be followed. It may not be unreasonable to obtain an echocardiogram to reassess her left ventricular wall motion and systolic function. She will need to continue medical therapy as she is able taken into consideration her multiple medical issues. At the moment taking into consideration a combination of her age with her multiple cardiovascular and noncardiovascular comorbidities especially with respect to ongoing anemia she does not appear to be an ideal candidate for invasive evaluation. If she would need invasive evaluation with repeat diagnostic cardiac catheterization then based upon her complex cardiovascular history as previously noted she would need to be transferred to a tertiary care center such as [facility] or the [facility] for additional evaluation and care. (2) CAD (coronary artery disease): Status: Chronic Code(s): I25.10 - Atherosclerotic heart disease of [place] coronary artery without angina pectoris Qualifiers: Coronary Disease-Associated Artery/Lesion type: [place] artery [place] vs. transplanted heart: [place] heart Plan: She does have an extensive CAD history requiring multiple cardiac annmarie terizations and multiple PCI procedures. Again at the moment she will continue medical therapy based upon her ongoing noncardiac comorbidities. Depending upon her clinical course if she does require repeat invasive evaluation then as noted above she would need to be transferred to a center such as [facility] or the [facility] for additional evaluation and care. (3) History of coronary artery stent placement: Status: Chronic Code(s): Z95.5 - Presence of coronary angioplasty implant and graft Plan: She does have an extensive history of multiple PTCA/stent procedures over the years. These have required additional catheter-based procedures such as laser atherectomy, etc. Thus, if she would require repeat evaluation and care in the cardiac catheterization laboratory this should be performed at a tertiary care center. (4) Non-rheumatic aortic stenosis: Status: Chronic Code(s): I35.0 - Nonrheumatic aortic (valve) stenosis Plan: She does have a history of aortic valve disorder with aortic valve stenosis. This can be reassessed with an echocardiogram. (5) Chronic diastolic (congestive) heart failure: Status: Chronic Code(s): I50.32 - Chronic diastolic (congestive) heart failure Plan: She does not appear to have any acute on chronic CHF symptoms at this time. She will need to be monitored for any concerns of volume overload. (6) Hyperlipidemia: Status: Chronic Code(s): E78.5 - Hyperlipidemia, unspecified Qualifiers: Hyperlipidemia type: unspecified Qualified Code(s): E78.5 - Hyperlipidemia, unspecified Plan: She should continue risk factor evaluation care as deemed appropriate. (7) Essential hypertension: Status: Chronic Code(s): I10 - Essential (primary) hypertension Plan: Her blood pressure can be followed and her medications can be adjusted accordingly. (8) Anemia: Status: Chronic Code(s): D64.9 - Anemia, unspecified Plan: She should be considered for PRBC transfusion to help increase her oxygen carrying capacity which would help benefit her underlying cardiovascular status. (9) Hypokalemia: Status: Resolved Code(s): E87.6 - Hypokalemia Plan: She should also be considered for electrolyte supplementation. (10) YOSELIN (acute kidney injury): Status: Acute Code(s): N17.9 - Acute kidney failure, unspecified Plan: Her renal function will need to be followed for any acute changes as her clinical course progresses. (11) Encephalopathy acute: Status: Acute Code(s): G93.40 - Encephalopathy, unspecified Plan: She does not appear to be alert and oriented x3 at this time. Thus this is also plays a role with respect to her ongoing evaluation and care and ability to undergo cardiovascular procedures especially invasive cardiovascular procedures. Addt'l Comments The aforementioned information / concerns has been forwarded to Dr. Castillo. HPI Consult Data Date of Consult: 11/30/20 HPI Narrative HPI Narrative: DANI JOHNSON, is a 80 white female who presents for cardiovascular consultation for concerns of abnormal cardiac enzymes/troponin I level superimposed upon a history of underlying CAD, PCI, aortic valve disorder/stenosis, chronic diastolic mediated CHF, superimposed upon a history of hyperlipidemia, hypertension, diabetes mellitus, GI bleeding process, anemia, pancytopenia, and schizophrenia. At the present time the patient does not appear to be alert and oriented x3 and thus the information obtained is also taken from the patient's electronic medical record. The patient does not complain, to the best of her recollection at this time, of ongoing chest discomfort or difficulty breathing. She appears to acknowledge a history of bleeding everywhere . She does not appear to be oriented to person, place, or time at the moment. According to the electronic medical record the patient apparently was brought to the hospital based upon concerns of confusion. She has subsequently been found to have evidence of an elevated troponin I level more so than previous abnormal troponin I levels. This appears to be in the setting of recurrent anemia with a hemoglobin of 6.3, hypokalemia with a potassium of 3.1, mild elevation of her creatinine level, and elevation of her troponin I level. She had an ECG that appeared to demonstrate sinus versus ectopic atrial rhythm with ST and T wave changes with consideration to myocardial ischemia in the anterior, lateral, and inferior distributions. She was placed in the PCU for further evaluation and care. Of note, based upon previous cardiovascular records available for review the patient has an extensive history of underlying CAD requiring multiple cardiac catheterization procedures/interventions at tertiary care centers including [facility] as well as [facility]. [facility] Medical History (Updated 11/30/20 @ 17:[address] Meet Kumar MD) Acute respiratory failure with hypoxia Acute respiratory failure with hypoxia and hypercapnia Anemia Atherosclerotic heart disease [place] coronary artery w/angina pectoris Chronic diastolic (congestive) heart failure Diabetes mellitus, type II Essential hypertension GI bleed (05/07/20) History of non-ST elevation myocardial infarction (NSTEMI) (03/26/20) Hyperlipidemia Hypothyroidism Lactic acidosis 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) Mitral valve insufficiency Non-rheumatic aortic stenosis Non-rheumatic mitral regurgitation Nonrheumatic tricuspid valve regurgitation NSTEMI (non-ST elevated myocardial infarction) Obesity (BMI 30.0-34.9) Pancytopenia Postoperative haemorrhage Schizophrenia Thrombocytopenia Tricuspid valve insufficiency Home Medications aspirin 81 mg PO DAILY@0800 06/30/17 [History Last Taken 11/29/20] nitroglycerin 0.4 mg SL PRN PRN 06/30/17 [History Last Taken 09/13/20 15:00] ascorbic acid (vitamin C) 500 mg tablet 500 mg PO DAILY 09/13/18 [History Last Taken 11/29/20] insulin glargine U-300 conc 34 unit SC DAILY 04/23/19 [History Last Taken 11/30/20] carvedilol 3.125 mg PO BIDCM 06/24/19 [History Last Taken 11/30/20] cholecalciferol (vitamin D3) 5,000 unit PO DAILY 06/24/19 [History Last Taken 11/29/20] levothyroxine 100 mcg PO DAILY 07/24/19 [History Last Taken 11/30/20] folic acid 1 mg PO DAILY 02/10/20 [History Last Taken 11/30/20] insulin regular human 5 unit SQ TIDCM 02/10/20 [History Last Taken 11/30/20] losartan 25 mg tablet 25 mg PO DAILY #30 tab 04/29/20 [Rx Last Taken 11/30/20] mirabegron 25 mg tablet,extended release 24 hr 25 mg PO DAILY 06/17/20 [History Last Taken 11/30/20] pravastatin 80 mg tablet 80 mg PO DAILY #90 tab 08/13/20 [Rx Last Taken 11/29/20] clopidogrel 75 mg PO DAILY 10/20/20 [History Last Taken 11/30/20] pantoprazole 40 mg PO DAILY 10/20/20 [History Last Taken 11/30/20] ranolazine 1,000 mg PO BID 10/20/20 [History Last Taken 11/30/20] haloperidol 1 mg PO BID PRN 11/13/20 [History Last Taken Unknown] spironolactone 25 mg PO QODAY 11/13/20 [History Last Taken 11/30/20] PNV cmb#95-ferrous fumarate-FA 1 each PO DAILY 11/14/20 [History Last Taken 11/29/20] albuterol sulfate 2 puff INHALATION Q4H PRN PRN 11/14/20 [History Last Taken Unknown] polyethylene glycol 3350 17 gm PO PRN PRN 11/14/20 [History Last Taken Unknown] furosemide 40 mg PO BID 11/21/20 [History Last Taken 11/30/20] isosorbide mononitrate 30 mg PO DINNER 11/21/20 [History Last Taken 11/29/20] metolazone 2.5 mg PO WEFR 11/21/20 [History Last Taken 11/26/20] potassium chloride 20 meq PO DAILY 11/21/20 [History Last Taken 11/30/20] Allergy/AdvReac Type Severity Reaction Status Date / Time aripiprazole [From Abilify] Allergy Intermediate it over Verified 11/21/20 03:29 powered me lisinopril Allergy Intermediate Unknown Verified 11/21/20 03:29 atorvastatin calcium AdvReac Unknown Verified 11/21/20 03:29 [From Lipitor] rosiglitazone maleate AdvReac Other Verified 11/21/20 03:29 [From Avandia] Family History Mother CAD (coronary artery disease) Father CAD (coronary artery disease) Surgical History History of appendectomy History of cholecystectomy History of colonoscopy (04/2020) History of coronary artery stent placement (08/20/18) History of esophagogastroduodenoscopy (EGD) (04/2020) History of left heart catheterization (06/25/19) History of spinal fusion History of tonsillectomy and adenoidectomy Social History Smoking Status: Never smoker alcohol intake: current details: occasional substance use type: does not use diet: low salt caffeine: No what type of physical activity do you participate in: walking frequency: daily seatbelt use: always do you feel safe at home: Yes ROS Review of Systems ROS Unobtainable: due to mental status Physical Exam Narrative This patient appears to be awake but not alert and oriented x3 and resting in the supine position comfortably at this time. Const Orientation / Consciousness: awake HEENT normocephalic and head/scalp atraumatic Eyes PERRL and EOMs intact bilaterally Neck full ROM and supple Chest inspection of chest normal Resp normal respiratory effort Cardio regular rate, regular rhythm, S1 normal heart sound and S2 normal heart sound Heart Sounds: murmur systolic III/ harsh mid left sternal border, LVOT and sternal notch GI normal to inspection, nondistended, normoactive bowel sounds Extremity General Extremity: edema bilateral lower extremity Details: mild Lab / Micro Data Result Diagrams: 11/30/20 08:15 11/30/20 09:43 Labs: Laboratory Results - last 24 hr 11/30/20 11/30/20 11/30/20 08:15 08:15 08:15 WBC 4.3 L RBC 2.04 L Hgb 6.3 L Hct 20.0 L MCV 98.0 MCH 30.9 MCHC 31.5 L RDW Std Deviation 64.7 H RDW Coeff of [place] 18.6 H Plt Count 138 L MPV 11.1 Immature Gran % (Auto) 0.500 Neut % (Auto) 60.9 Lymph % (Auto) 30.4 [place] % (Auto) 4.9 Eos % (Auto) 3.1 Baso % (Auto) 0.2 Absolute Neuts (auto) 2.6 Absolute Lymphs (auto) 1.29 Nucleated RBC % 0 Sodium Cancelled Potassium Cancelled Chloride Cancelled Carbon Dioxide Cancelled Anion Gap Cancelled BUN Cancelled Creatinine Cancelled Estim Creat Clear Calc Cancelled Est GFR (MDRD) Af Amer Cancelled Est GFR (MDRD) Non-Af Cancelled BUN/Creatinine Ratio Cancelled Glucose Cancelled Calcium Cancelled Troponin I Cancelled Urine Color Yellow Urine Clarity Clear Urine pH 6.0 Ur Specific [place] 1.015 Urine Protein Negative Urine Glucose (UA) Normal Urine Ketones Negative Urine Occult Blood Negative Urine Nitrite Negative Urine Bilirubin Negative Urine Urobilinogen Normal Ur Leukocyte Esterase Negative Urine RBC 0 SEEN Urine WBC 0 SEEN Ur Squamous Epith Cells 0-5 SEEN Triple Phos Crystals RARE Urine Bacteria 0 SEEN Urine Mucus 0 SEEN POC Glucose 11/30/20 11/30/20 11/30/20 08:21 09:43 12:23 WBC RBC Hgb Hct MCV MCH MCHC RDW Std Deviation RDW Coeff of [place] Plt Count MPV Immature Gran % (Auto) Neut % (Auto) Lymph % (Auto) [place] % (Auto) Eos % (Auto) Baso % (Auto) Absolute Neuts (auto) Absolute Lymphs (auto) Nucleated RBC % Sodium 134 L Potassium 3.1 L Chloride 97 L Carbon Dioxide 31.0 Anion Gap 6 BUN 61 H Creatinine 1.31 H Estim Creat Clear Calc Est GFR (MDRD) Af Amer 50 L Est GFR (MDRD) Non-Af 41 L BUN/Creatinine Ratio 46.6 H Glucose 177 H Calcium 8.9 Troponin I 2.480 H* Urine Color Urine Clarity Urine pH Ur Specific [place] Urine Protein Urine Glucose (UA) Urine Ketones Urine Occult Blood Urine Nitrite Urine Bilirubin Urine Urobilinogen Ur Leukocyte Esterase Urine RBC Urine WBC Ur Squamous Epith Cells Triple Phos Crystals Urine Bacteria Urine Mucus POC Glucose 178 H 139 H 11/30/20 13:07 WBC RBC Hgb Hct MCV MCH MCHC RDW Std Deviation RDW Coeff of [place] Plt Count MPV Immature Gran % (Auto) Neut % (Auto) Lymph % (Auto) [place] % (Auto) Eos % (Auto) Baso % (Auto) Absolute Neuts (auto) Absolute Lymphs (auto) Nucleated RBC % Sodium Potassium Chloride Carbon Dioxide Anion Gap BUN Creatinine Estim Creat Clear Calc Est GFR (MDRD) Af Amer Est GFR (MDRD) Non-Af BUN/Creatinine Ratio Glucose Calcium Troponin I 2.850 H* Urine Color Urine Clarity Urine pH Ur Specific [place] Urine Protein Urine Glucose (UA) Urine Ketones Urine Occult Blood Urine Nitrite Urine Bilirubin Urine Urobilinogen Ur Leukocyte Esterase Urine RBC Urine WBC Ur Squamous Epith Cells Triple Phos Crystals Urine Bacteria Urine Mucus POC Glucose Cardiac rhythm: Sinus versus ectopic atrial rhythm Electrocardiogram: As noted above Echocardiogram: 02-11-2020 Reason For Study: CAD/ASHD Procedure This was a 2D Doppler, Color Flow transthoracic echocardiogram. Exam performed portable in ICU/CCU. Left Ventricle Normal size and thickness. The estimated ejection fraction is 55 %. Stage 1 diastolic dysfunction. Anterior [place] : Mildly hypokinetic. Lateral [place] : Mildly hypokinetic. Right Ventricle Normal size and thickness. Normal systolic function. Atria The left atrium is moderately enlarged. Normal right atrium. Normal atrial septum. Mitral Valve Mild diffuse mitral valve thickening. Mild (1+) mitral valve insufficiency. Tricuspid Valve Normal tricuspid valve. Trivial tricuspid valve insufficiency. Right ventricular systolic pressure estimated to be 21 mmHg. Aortic Valve Mild diffuse aortic valve thickening. Moderate focal aortic valve thickening. Mild restriction of the aortic valve. Fusion of right and non coronary cusps. Mild aortic stenosis. Pulmonic Valve Normal pulmonic valve. Great Vessels Calcified aortic root. Mild atherosclerosis of the aortic arch. Normal inferior vena cava. Inferior vena cava collapse with sniff. Pericardium/Pleural No pericardial effusion. MMode/2D Measurements & Calculations LVIDd: 4.9 cm ? IVSd: 1.2 cm? LVOT diam: 2.0 cm LVIDs: 3.4 cm ? LVPWd: 1.1 cm ? LVOT area: 3.2 cm2 ? FS: 31.2 % ? Ao root diam: 3.5 cm? LAV(MOD-bp): 81.2 ml? LA A4 area: 23.6 cm2 ? LAV(MOD-bp) Indexed: 39.7 ml/m2 ? LAV(MOD-sp2): 57.2 ml ? LAV(MOD-sp4): 75.8 ml ? RA A4 area: 14.4 cm2 Time Measurements MV dec time: 0.25 sec Doppler Measurements & Calculations MV E max melo: 80.8 cm/sec ? ? ? Lat Peak E' Melo: 7.8 cm/sec? Med Peak E' Melo: 5.7 cm/sec MV A max melo: 100.4 cm/sec? ? ? E/E' lat: 10.3 ? E/E' med: 14.1 MV E/A: 0.80 ? MV V2 max: 122.3 cm/sec ? MV P1/2t max melo: 93.4 cm/sec? ? ? Ao V2 max: 211.4 cm/sec MV max P.0 mmHg ? MV P1/2t: 86.3 msec? Ao max P.9 mmHg MV V2 mean: 65.9 cm/sec ? MV dec slope: 317.0 cm/sec2? Ao V2 mean: 146.8 cm/sec MV mean P.1 mmHg ? Ao mean P.9 mmHg MV V2 VTI: 30.7 cm? MVA(P1/2t): 2.5 cm2? Ao V2 VTI: 42.1 cm MVA(VTI): 2.3 cm2? CASH(I,D): 1.7 cm2 ? CASH(V,D): 1.5 cm2 ? LV V1 max: 97.6 cm/sec? MR max melo: 470.2 cm/sec ? SV(LVOT): 70.1 ml LV V1 max P.8 mmHg? MR max P.4 mmHg LV V1 mean P.1 mmHg ? MR mean melo: 347.0 cm/sec LV V1 mean: 67.5 cm/sec ? MR mean P.0 mmHg LV V1 VTI: 22.0 cm? MR VTI: 151.9 cm ? PA V2 max: 131.9 cm/sec ? TR max melo: 198.5 cm/sec ? TR max P.8 mmHg Interpretation Summary The estimated ejection fraction is 55 %. Stage 1 diastolic dysfunction. The left atrium is moderately enlarged. Mild (1+) mitral valve insufficiency. Trivial tricuspid valve insufficiency. Right ventricular systolic pressure estimated to be 21 mmHg. Fusion of right and non coronary cusps. Mild aortic stenosis. Compared to echo report dated 07/25/2019, no appreciable changes noted. Micro: Microbiology 11/30/20 08:15 SARS-CoV-2 Antigen (Rapid) - Final Mucosa - Nasopharyngeal Procedure Criteria Procedure Type: Elective COVID Risk Discussion: The surgeon/proceduralist and patient have discussed in detail the risk of exposure to and/or potential harm posed by the COVID-19 virus with having a surgery/procedure at this time versus the risk of delaying the surgery/procedure. It is not possible to know either the risk of delaying the surgery or procedure or chance of getting an infection with perfect accuracy, but a joint decision was made between the patient and the surgeon/proceduralist to proceed at this time with the scheduled surgery/procedure as indicated on the consent form.
--- NOTE | 2020-11-30 15:12 | PCM.PN.HOSP ---
Objective Data Objective Data Vital Signs: Vital Signs Temp Pulse Resp BP Pulse Ox 36.6 C 58 L 16 108/54 L 99 11/30/20 11:00 11/30/20 11:58 11/30/20 11:00 11/30/20 11:00 11/30/20 11:00 Oxygen Delivery Method Room Air Weight: 84.1 kg Body Mass Index (BMI) 29.0 Finger Stick Blood Glucose 270 Intake & Output: Intake and Output for Last 24 Hours 11/28/20 11/29/20 11/30/20 23:59 23:59 23:59 Intake Total 500 / 500 Balance 500 / 500 Lab / Micro Data Result Diagrams: 11/30/20 08:15 11/30/20 09:43 Labs: Laboratory Results - last 24 hr 11/30/20 11/30/20 11/30/20 08:15 08:15 08:15 WBC 4.3 L RBC 2.04 L Hgb 6.3 L Hct 20.0 L MCV 98.0 MCH 30.9 MCHC 31.5 L RDW Std Deviation 64.7 H RDW Coeff of [place] 18.6 H Plt Count 138 L MPV 11.1 Immature Gran % (Auto) 0.500 Neut % (Auto) 60.9 Lymph % (Auto) 30.4 [place] % (Auto) 4.9 Eos % (Auto) 3.1 Baso % (Auto) 0.2 Absolute Neuts (auto) 2.6 Absolute Lymphs (auto) 1.29 Nucleated RBC % 0 Sodium Cancelled Potassium Cancelled Chloride Cancelled Carbon Dioxide Cancelled Anion Gap Cancelled BUN Cancelled Creatinine Cancelled Estim Creat Clear Calc Cancelled Est GFR (MDRD) Af Amer Cancelled Est GFR (MDRD) Non-Af Cancelled BUN/Creatinine Ratio Cancelled Glucose Cancelled Calcium Cancelled Troponin I Cancelled Urine Color Yellow Urine Clarity Clear Urine pH 6.0 Ur Specific [place] 1.015 Urine Protein Negative Urine Glucose (UA) Normal Urine Ketones Negative Urine Occult Blood Negative Urine Nitrite Negative Urine Bilirubin Negative Urine Urobilinogen Normal Ur Leukocyte Esterase Negative Urine RBC 0 SEEN Urine WBC 0 SEEN Ur Squamous Epith Cells 0-5 SEEN Triple Phos Crystals RARE Urine Bacteria 0 SEEN Urine Mucus 0 SEEN POC Glucose 11/30/20 11/30/20 11/30/20 08:21 09:43 12:23 WBC RBC Hgb Hct MCV MCH MCHC RDW Std Deviation RDW Coeff of [place] Plt Count MPV Immature Gran % (Auto) Neut % (Auto) Lymph % (Auto) [place] % (Auto) Eos % (Auto) Baso % (Auto) Absolute Neuts (auto) Absolute Lymphs (auto) Nucleated RBC % Sodium 134 L Potassium 3.1 L Chloride 97 L Carbon Dioxide 31.0 Anion Gap 6 BUN 61 H Creatinine 1.31 H Estim Creat Clear Calc Est GFR (MDRD) Af Amer 50 L Est GFR (MDRD) Non-Af 41 L BUN/Creatinine Ratio 46.6 H Glucose 177 H Calcium 8.9 Troponin I 2.480 H* Urine Color Urine Clarity Urine pH Ur Specific [place] Urine Protein Urine Glucose (UA) Urine Ketones Urine Occult Blood Urine Nitrite Urine Bilirubin Urine Urobilinogen Ur Leukocyte Esterase Urine RBC Urine WBC Ur Squamous Epith Cells Triple Phos Crystals Urine Bacteria Urine Mucus POC Glucose 178 H 139 H 11/30/20 13:07 WBC RBC Hgb Hct MCV MCH MCHC RDW Std Deviation RDW Coeff of [place] Plt Count MPV Immature Gran % (Auto) Neut % (Auto) Lymph % (Auto) [place] % (Auto) Eos % (Auto) Baso % (Auto) Absolute Neuts (auto) Absolute Lymphs (auto) Nucleated RBC % Sodium Potassium Chloride Carbon Dioxide Anion Gap BUN Creatinine Estim Creat Clear Calc Est GFR (MDRD) Af Amer Est GFR (MDRD) Non-Af BUN/Creatinine Ratio Glucose Calcium Troponin I 2.850 H* Urine Color Urine Clarity Urine pH Ur Specific [place] Urine Protein Urine Glucose (UA) Urine Ketones Urine Occult Blood Urine Nitrite Urine Bilirubin Urine Urobilinogen Ur Leukocyte Esterase Urine RBC Urine WBC Ur Squamous Epith Cells Triple Phos Crystals Urine Bacteria Urine Mucus POC Glucose Micro: Microbiology 11/30/20 08:15 Mucosa - Nasopharyngeal SARS-CoV-2 Antigen (Rapid) - Final
--- NOTE | 2020-11-30 16:42 | CT_ITS ---
STUDY: CT BRAIN WITHOUT CONTRAST REASON FOR EXAM: Female, 80 years old. Change in MS RADIATION DOSAGE (If Supplied By Facility): CTDIvol = ( 44.99 ) mGy, DLP = ( 762.36 ) mGycm TECHNIQUE: Transaxial CT imaging of the brain was performed without administration of intravenous contrast material. Individualized dose optimization techniques were used for this CT. COMPARISON: 11/13/2020 FINDINGS: Normal soft tissue structures. Normal calvarium. Normal size ventricles and extra-axial spaces for the patient''s age. Mild white matter microangiopathic ischemic changes of the cerebral hemispheres. Prominent perivascular space or old lacunar infarct in the right basal ganglia. Normal thalami. Normal brainstem. Normal cerebellum. There is no intracranial hemorrhage. There are no findings of an acute ischemic infarction. Normal visualized paranasal sinuses. CT/Brain/Head without Contrast IMPRESSION: No acute intracranial pathology of the brain. Electronically Signed: Gigi Roberto DO at 22:24 EDT Tel [phone], Service support ,
[2020-11-30] MEDS: Carvedilol 3.125 MG TABLET PO (18:14)
[2020-11-30] MEDS: Isosorbide Mononitrate 30 MG Tablet PO (18:14)
[2020-11-30 18:15] LABS: Bedside Glucose 117 mg/dL (70-110)
[2020-11-30] MEDS: Ranolazine 500 MG Tablet 1000 MG PO (22:30)
[2020-11-30 23:05] LABS: Bedside Glucose 81 mg/dL (70-110)
[2020-12-01] VITALS (18 sets, daily range): BP systolic 87–118; BP diastolic 38–50; PULSE 59–69; RESP 12–18; TEMP 36.4–37.2; O2SAT 97–100
[2020-12-01 03:06] LABS: Hematocrit 20.8 % (37-47)
[2020-12-01 06:05] LABS: Absolute Lymphocyte Count 1.48 X10^3/uL (0.83-4.51); Absolute Neutrophil Count 1.9 X10^3/uL (2.0-7.7); Basophil# 0.01 X10^3/uL; Basophil% 0.3 % (0-1); Eosinophil# 0.12 X10^3/uL; Eosinophils% 3.1 % (0-5); Hematocrit 21.3 % (37-47); Hemoglobin 6.9 g/dL (12.0-15.0); Lymphocyte # 1.48 X10^3/ul (0.83-4.51); Lymphocyte % 37.9 % (19-41); Mean Corp Hgb Conc 32.4 g/dL (32-36); Mean Corpuscular Hgb 30.7 pg (27.0-32.0); Mean Corpuscular Volume 94.7 fL (81-99); Mean Platelet Vol. 10.1 fl (6.2-12.0); Monocyte# 0.36 X10^3/uL; Monocyte% 9.2 % (0-10); NRBC Flagged by Analyzer 0 % (0-5); Neutrophil # 1.91 X10^3/uL (2.7-7.7); Platelet Count 120 K/mm3 (150-450); RBC Distribution Width CV 17.5 % (11.6-14.6); RBC Distribution Width SD 59.3 fl (35.1-43.9); Red Blood Count 2.25 M/mm3 (4.2-5.4); White Blood Count 3.9 K/mm3 (4.4-11.0)
[2020-12-01 06:31] LABS: Anion Gap 6 (5-15); BUN 50 mg/dL (7-18); BUN/Creat Ratio 50.6 RATIO (10-20); Calcium,Total 8.3 mg/dL (8.5-10.1); Chloride 101 mmol/L (98-107); Creatinine, Serum 0.99 mg/dL (0.55-1.02); EST Glomerular Filtration Rate 57 mL/min (>60); Est Glom Filt Rate - Afr Amer 69 mL/min (>60); Estimated Creatinine Clearance 43.34 ml/min; Glucose 66 mg/dL (74-106); Potassium 2.8 mmol/L (3.5-5.1); Sodium Level 139 mmol/L (136-145)
[2020-12-01] MEDS: Menthol/Lanolin/Calamine/Znox 113 GM Tube 1 APPLIC TOPICAL ×2 (06:32→21:49)
[2020-12-01] MEDS: Levothyroxine 100 MCG Tablet PO (06:32)
[2020-12-01] MEDS: 0.9% Saline Lock 10 ML Syringe IV ×2 (06:36→13:42)
[2020-12-01 06:40] LABS: Bedside Glucose 69 mg/dL (70-110)
[2020-12-01] MEDS: Aspirin 81 MG TAB.CHEW PO (09:00)
[2020-12-01] MEDS: Potassium Chloride Oral Tablet 20 MEQ PO (09:00)
[2020-12-01] MEDS: Acetaminophen 325 MG Tablet 650 MG PO ×2 (09:03→18:50)
[2020-12-01] MEDS: Insulin Lispro 100 UNIT/ML INSULN.PEN SC ×3 (09:05→16:53)
[2020-12-01 09:26] LABS: Bedside Glucose 134 mg/dL (70-110)
--- NOTE | 2020-12-01 10:52 | CASEMGMT ---
Patient's Passport Program Director/Morning Show Host is Paul. SW called her and left her a voice mail letting her know patient is in the hospital. Karina SERRATO
[2020-12-01] MEDS: Pantoprazole Sodium 40 MG Tablet PO (10:53)
[2020-12-01] MEDS: Cholecalciferol (VIT D3) 25 MCG TABLET (1,000 UNITS) 125 MCG PO (10:54)
[2020-12-01] MEDS: Mirabegron 25 MG TAB.ER.24H PO (10:54)
[2020-12-01] MEDS: Ascorbic Acid 500 MG Tablet PO (10:54)
[2020-12-01] MEDS: Ranolazine 500 MG Tablet 1000 MG PO (10:54)
[2020-12-01] MEDS: Pravastatin 80 MG Tablet PO (10:54)
[2020-12-01] MEDS: Prenatal Vits Tablet 1 TABLET PO (11:28)
--- NOTE | 2020-12-01 11:33 | PN.HOSP_ITS ---
Subjective Subjective: Denies any new complaints. Objective Data Objective Data Vital Signs: Vital Signs Temp Pulse Resp BP Pulse Ox 36.7 C 59 L 16 107/49 L 99 12/01/20 06:30 12/01/20 07:42 12/01/20 06:30 12/01/20 06:30 12/01/20 06:30 Oxygen Delivery Method Room Air Weight: 84.1 kg Body Mass Index (BMI) 29.0 Finger Stick Blood Glucose 270 Intake & Output: Intake and Output for Last 24 Hours 11/29/20 11/30/20 12/01/20 23:59 23:59 23:59 Intake Total 620 / 620 400 / 400 Output Total 500 / 500 Balance 120 / 120 400 / 400 Lab / Micro Data Result Diagrams: 12/01/20 05:50 12/01/20 05:50 Labs: Laboratory Results - last 24 hr 11/30/20 11/30/20 11/30/20 08:15 12:23 13:07 WBC 4.3 L RBC 2.04 L Hgb 6.3 L Hct 20.0 L MCV 98.0 MCH 30.9 MCHC 31.5 L RDW Std Deviation 64.7 H RDW Coeff of [place] 18.6 H Plt Count 138 L MPV 11.1 Immature Gran % (Auto) 0.500 Neut % (Auto) 60.9 Lymph % (Auto) 30.4 [place] % (Auto) 4.9 Eos % (Auto) 3.1 Baso % (Auto) 0.2 Absolute Neuts (auto) 2.6 Absolute Lymphs (auto) 1.29 Nucleated RBC % 0 Sodium Potassium Chloride Carbon Dioxide Anion Gap BUN Creatinine Estim Creat Clear Calc Est GFR (MDRD) Af Amer Est GFR (MDRD) Non-Af BUN/Creatinine Ratio Glucose Calcium Troponin I 2.850 H* POC Glucose 139 H Blood Type Antibody Screen Crossmatch 11/30/20 11/30/20 11/30/20 15:55 17:04 17:04 WBC RBC Hgb Hct MCV MCH MCHC RDW Std Deviation RDW Coeff of [place] Plt Count MPV Immature Gran % (Auto) Neut % (Auto) Lymph % (Auto) [place] % (Auto) Eos % (Auto) Baso % (Auto) Absolute Neuts (auto) Absolute Lymphs (auto) Nucleated RBC % Sodium Potassium Chloride Carbon Dioxide Anion Gap BUN Creatinine Estim Creat Clear Calc Est GFR (MDRD) Af Amer Est GFR (MDRD) Non-Af BUN/Creatinine Ratio Glucose Calcium Troponin I 2.550 H* POC Glucose Blood Type A POSITIVE Antibody Screen NEGATIVE Crossmatch See Detail See Detail 11/30/20 11/30/20 12/01/20 18:12 22:33 02:55 WBC RBC Hgb 7.0 L Hct 20.8 L MCV MCH MCHC RDW Std Deviation RDW Coeff of [place] Plt Count MPV Immature Gran % (Auto) Neut % (Auto) Lymph % (Auto) [place] % (Auto) Eos % (Auto) Baso % (Auto) Absolute Neuts (auto) Absolute Lymphs (auto) Nucleated RBC % Sodium Potassium Chloride Carbon Dioxide Anion Gap BUN Creatinine Estim Creat Clear Calc Est GFR (MDRD) Af Amer Est GFR (MDRD) Non-Af BUN/Creatinine Ratio Glucose Calcium Troponin I POC Glucose 117 H 81 Blood Type Antibody Screen Crossmatch 12/01/20 12/01/20 12/01/20 05:50 05:50 06:35 WBC 3.9 L RBC 2.25 L Hgb 6.9 L Hct 21.3 L MCV 94.7 MCH 30.7 MCHC 32.4 RDW Std Deviation 59.3 H RDW Coeff of [place] 17.5 H Plt Count 120 L MPV 10.1 Immature Gran % (Auto) 0.500 Neut % (Auto) 49.0 Lymph % (Auto) 37.9 [place] % (Auto) 9.2 Eos % (Auto) 3.1 Baso % (Auto) 0.3 Absolute Neuts (auto) 1.9 L Absolute Lymphs (auto) 1.48 Nucleated RBC % 0 Sodium 139 Potassium 2.8 L Chloride 101 Carbon Dioxide 32.0 Anion Gap 6 BUN 50 H Creatinine 0.99 Estim Creat Clear Calc 43.34 Est GFR (MDRD) Af Amer 69 Est GFR (MDRD) Non-Af 57 L BUN/Creatinine Ratio 50.6 H Glucose 66 L Calcium 8.3 L Troponin I POC Glucose 69 L Blood Type Antibody Screen Crossmatch 12/01/20 09:04 WBC RBC Hgb Hct MCV MCH MCHC RDW Std Deviation RDW Coeff of [place] Plt Count MPV Immature Gran % (Auto) Neut % (Auto) Lymph % (Auto) [place] % (Auto) Eos % (Auto) Baso % (Auto) Absolute Neuts (auto) Absolute Lymphs (auto) Nucleated RBC % Sodium Potassium Chloride Carbon Dioxide Anion Gap BUN Creatinine Estim Creat Clear Calc Est GFR (MDRD) Af Amer Est GFR (MDRD) Non-Af BUN/Creatinine Ratio Glucose Calcium Troponin I POC Glucose 134 H Blood Type Antibody Screen Crossmatch Micro: Microbiology 12/01/20 01:50 Stool Stool Occult Blood (TARUN) - Final Occult Blood Positive 11/30/20 08:15 Mucosa - Nasopharyngeal SARS-CoV-2 Antigen (Rapid) - Final Radiography Diagnostic Testing: Radiology Impression Brain CT 11/30/20 16:42 IMPRESSION: No acute intracranial pathology of the brain. Electronically Signed: Gigi Roberto DO at 22:24 EDT Tel [phone], Service support , Physical Exam Narrative up in chair Const alert and no apparent distress Resp normal respiratory effort, no use of accessory muscles and clear to auscultation bilaterally Cardio regular rate, regular rhythm, S1 normal heart sound and S2 normal heart sound GI normal to inspection, nondistended, normoactive bowel sounds and non-tender Extremity normal to inspection Assessment & Plan Assessment/Plan (1) Elevated troponin I level: Status: Acute Code(s): R77.8 - Other specified abnormalities of plasma proteins Plan: Still elevated. Cardiology following Complicated case given comorbidities, anemia On Carvedilol, ASA (2) Hypokalemia: Status: Resolved Code(s): E87.6 - Hypokalemia Plan: replace. Monitor (3) Generalized weakness: Status: Inactive Code(s): R53.1 - Weakness Plan: PT OT eval May need SNF (4) YOSELIN (acute kidney injury): Status: Acute Code(s): N17.9 - Acute kidney failure, unspecified Plan: resolved continue to hold metolazone, furosemide, losartan (5) Anemia: Status: Chronic Code(s): D64.9 - Anemia, unspecified Qualifiers: Anemia type: unspecified type Qualified Code(s): D64.9 - Anemia, unspecified Plan: Transfused 1 unit and went up from 6.3 to 6.9. Will transfuse another unit. (6) Encephalopathy acute: Status: Ruled-out Code(s): G93.40 - Encephalopathy, unspecified Plan: Chronic. Follow up with geriatrics for dementia evaluation. Inpatient E&M: [id number] Subs Hosp L2
[2020-12-01] MEDS: Potassium Chloride Oral Tablet 20 MEQ 40 MEQ PO (12:43)
[2020-12-01 12:46] LABS: Bedside Glucose 202 mg/dL (70-110)
--- NOTE | 2020-12-01 13:57 | CASEMGMT ---
BELINDA CM Readmission Note Previous Admission: 11/21/20-11/23/20 Diagnosis: UTI, YOSELIN DC Disposition: Pt dc'd back to [facility]. Current Admission Presentation: elevated troponins, encephalopathy Pt presented to ER from [place] due to altered mental status. Pt is A/Ox3 and wishes to have s/t therapy at a facility. Notified Karina BORJAS. Pt reports she did have a follow up appt with her PCP last week. The CT was giving her her meds so she was taking as ordered. Pt is active with [facility]. [phone]. TC to [place] to and made aware that pt is admitted. DC PLAN: SNF placement for s/t therapy. Pt screened with [facility] Tool and pt met criteria. Then it was noted pt was active with [facility].
--- NOTE | 2020-12-01 14:56 | CASEMGMT ---
Per RN CM patient is interested in trying [facility]. SUAD met with patient. She said she would like to go somewhere, but she is not sure if her insurance will pay for it. SUAD told her we can try and see what happens. She would prefer [facility]. She declined a list as she wants [facility]. She also said she does not have any of her belongings with her. She wondered how she could get them. SW asked if she had any friends that she could call. She named a few people, but she did not know numbers. SUAD told her SW will call [facility] to see if there is anything they can do to help her. SUAD called [facility] and spoke with Aby. SUAD told her patient is considering going to [facility] and she would like some of her belongings. Aby said they would be able to bring in patient's belongings when she knows where she is going. SUAD will let patient know this information. SUAD will send a referral to [facility]. Karina Simmons GAS TENDER AMA
--- NOTE | 2020-12-01 15:48 | CASEMGMT ---
SUAD faxed referral to [facility] and also left a message with referral. Karina Simmons FITNESS LEADER AMA
[2020-12-01] MEDS: Carvedilol 3.125 MG TABLET PO (16:56)
[2020-12-01] MEDS: Isosorbide Mononitrate 30 MG Tablet PO (16:56)
[2020-12-01 17:31] LABS: Bedside Glucose 125 mg/dL (70-110)
--- NOTE | 2020-12-01 18:26 | PN.CARD_ITS ---
Subjective Subjective: The patient remains in the PCU. She does not appear to complain of any acute cardiac concerns at this time. Objective Data Objective Data Vital Signs: Vital Signs Temp Pulse Resp BP Pulse Ox 98.9 F 65 12 118/42 L 100 12/01/20 17:00 12/01/20 17:00 12/01/20 17:00 12/01/20 17:00 12/01/20 17:00 Oxygen Delivery Method Room Air Weight: 185 lb 6.54 oz Body Mass Index (BMI) 29.0 Finger Stick Blood Glucose 270 Intake & Output: Intake and Output for Last 24 Hours 11/29/20 11/30/20 12/01/20 23:59 23:59 23:59 Intake Total 620 / 620 1560 / 1560 Output Total 500 / 500 Balance 120 / 120 1560 / 1560 Lab / Micro Data Result Diagrams: 12/01/20 05:50 12/01/20 05:50 Labs: Laboratory Results - last 24 hr 11/30/20 11/30/20 11/30/20 17:04 17:04 22:33 WBC RBC Hgb Hct MCV MCH MCHC RDW Std Deviation RDW Coeff of Conchis Plt Count MPV Immature Gran % (Auto) Neut % (Auto) Lymph % (Auto) [place] % (Auto) Eos % (Auto) Baso % (Auto) Absolute Neuts (auto) Absolute Lymphs (auto) Nucleated RBC % Sodium Potassium Chloride Carbon Dioxide Anion Gap BUN Creatinine Estim Creat Clear Calc Est GFR (MDRD) Af Amer Est GFR (MDRD) Non-Af BUN/Creatinine Ratio Glucose Calcium POC Glucose 81 Blood Type A POSITIVE Antibody Screen NEGATIVE Crossmatch See Detail See Detail 12/01/20 12/01/20 12/01/20 02:55 05:50 05:50 WBC 3.9 L RBC 2.25 L Hgb 7.0 L 6.9 L Hct 20.8 L 21.3 L MCV 94.7 MCH 30.7 MCHC 32.4 RDW Std Deviation 59.3 H RDW Coeff of [place]ch[place] 17.5 H Plt Count 120 L MPV 10.1 Immature Gran % (Auto) 0.500 Neut % (Auto) 49.0 Lymph % (Auto) 37.9 [place] % (Auto) 9.2 Eos % (Auto) 3.1 Baso % (Auto) 0.3 Absolute Neuts (auto) 1.9 L Absolute Lymphs (auto) 1.48 Nucleated RBC % 0 Sodium 139 Potassium 2.8 L Chloride 101 Carbon Dioxide 32.0 Anion Gap 6 BUN 50 H Creatinine 0.99 Estim Creat Clear Calc 43.34 Est GFR (MDRD) Af Amer 69 Est GFR (MDRD) Non-Af 57 L BUN/Creatinine Ratio 50.6 H Glucose 66 L Calcium 8.3 L POC Glucose Blood Type Antibody Screen Crossmatch 12/01/20 12/01/20 12/01/20 06:35 09:04 11:26 WBC RBC Hgb Hct MCV MCH MCHC RDW Std Deviation RDW Coeff of [place]chis Plt Count MPV Immature Gran % (Auto) Neut % (Auto) Lymph % (Auto) [place] % (Auto) Eos % (Auto) Baso % (Auto) Absolute Neuts (auto) Absolute Lymphs (auto) Nucleated RBC % Sodium Potassium Chloride Carbon Dioxide Anion Gap BUN Creatinine Estim Creat Clear Calc Est GFR (MDRD) Af Amer Est GFR (MDRD) Non-Af BUN/Creatinine Ratio Glucose Calcium POC Glucose 69 L 134 H 202 H Blood Type Antibody Screen Crossmatch 12/01/20 16:47 WBC RBC Hgb Hct MCV MCH MCHC RDW Std Deviation RDW Coeff of [place]chis Plt Count MPV Immature Gran % (Auto) Neut % (Auto) Lymph % (Auto) [place] % (Auto) Eos % (Auto) Baso % (Auto) Absolute Neuts (auto) Absolute Lymphs (auto) Nucleated RBC % Sodium Potassium Chloride Carbon Dioxide Anion Gap BUN Creatinine Estim Creat Clear Calc Est GFR (MDRD) Af Amer Est GFR (MDRD) Non-Af BUN/Creatinine Ratio Glucose Calcium POC Glucose 125 H Blood Type Antibody Screen Crossmatch Micro: Microbiology 12/01/20 01:50 Stool Stool Occult Blood (TARUN) - Final Occult Blood Positive 11/30/20 08:15 Mucosa - Nasopharyngeal SARS-CoV-2 Antigen (Rapid) - Final Radiography Diagnostic Testing: Radiology Impression Brain CT 11/30/20 16:42 IMPRESSION: No acute intracranial pathology of the brain. Electronically Signed: Gigi Roberto DO at 22:24 EDT Tel [phone], Service support , Physical Exam Narrative This patient appears to be awake but not alert and oriented x3 and resting in the supine position comfortably at this time. Const Orientation / Consciousness: awake HEENT normocephalic and head/scalp atraumatic Eyes PERRL and EOMs intact bilaterally Neck full ROM and supple Chest inspection of chest normal Resp normal respiratory effort Cardio regular rate, regular rhythm, S1 normal heart sound and S2 normal heart sound Heart Sounds: murmur systolic III/ harsh mid left sternal border, LVOT and sternal notch GI normal to inspection, nondistended, normoactive bowel sounds Extremity General Extremity: edema bilateral lower extremity Details: mild Assessment & Plan Assessment/Plan (1) Elevated troponin I level: Status: Acute Code(s): R77.8 - Other specified abnormalities of plasma proteins Plan: The patient does have abnormal cardiac enzymes/troponin I levels. These findings are concerning for an acute non-ST segment elevation ME. It is unclear at this time whether this is related to a type I event based on the patient's underlying known CAD process and previous multiple PCI procedures versus a type II event from supply demand mismatch being brought out by her marked anemia. Her troponin I levels have decreased. It may not be unreasonable to obtain an echocardiogram to reassess her left ventricular wall motion and systolic function. She will need to continue medical therapy as she is able taken into consideration her multiple medical issues. At the moment taking into consideration a combination of her age with her multiple cardiovascular and noncardiovascular comorbidities especially with respect to ongoing anemia she does not appear to be an ideal candidate for inva sive evaluation. If she would need invasive evaluation with repeat diagnostic cardiac catheterization then based upon her complex cardiovascular history as previously noted she would need to be transferred to a tertiary care center such as [facility] or the [facility] for additional evaluation and care. (2) CAD (coronary artery disease): Status: Chronic Code(s): I25.10 - Atherosclerotic heart disease of [place] coronary artery without angina pectoris Qualifiers: Coronary Disease-Associated Artery/Lesion type: [place] artery [place] vs. transplanted heart: [place] heart Plan: She does have an extensive CAD history requiring multiple cardiac catheterizations and multiple PCI procedures. Again at the moment she will continue medical therapy based upon her ongoing noncardiac comorbidities. Depending upon her clinical course if she does require repeat invasive evaluation then as noted above she would need to be transferred to a center such as [facility] or the [facility] for additional evaluation and care. (3) History of coronary artery stent placement: Status: Chronic Code(s): Z95.5 - Presence of coronary angioplasty implant and graft Plan: She does have an extensive history of multiple PTCA/stent procedures over the years. These have required additional catheter-based procedures such as laser atherectomy, etc. Thus, if she would require repeat evaluation and care in the cardiac catheterization laboratory this should be performed at a tertiary care center. (4) Non-rheumatic aortic stenosis: Status: Chronic Code(s): I35.0 - Nonrheumatic aortic (valve) stenosis Plan: She does have a history of aortic valve disorder with aortic valve stenosis. This can be reassessed with an echocardiogram. (5) Chronic diastolic (congestive) heart failure: Status: Chronic Code(s): I50.32 - Chronic diastolic (congestive) heart failure Plan: She does not appear to have any acute on chronic CHF symptoms at this time. She will need to be monitored for any concerns of volume overload. (6) Hyperlipidemia: Status: Chronic Code(s): E78.5 - Hyperlipidemia, unspecified Qualifiers: Hyperlipidemia type: unspecified Qualified Code(s): E78.5 - Hyperlipidemia, unspecified Plan: She should continue risk factor evaluation care as deemed appropriate. (7) Essential hypertension: Status: Chronic Code(s): I10 - Essential (primary) hypertension Plan: Her blood pressure can be followed and her medications can be adjusted accordingly. (8) Anemia: Status: Chronic Code(s): D64.9 - Anemia, unspecified Plan: She did receive 1 unit of PRBCs. Her hemoglobin increased somewhat but not significantly. She is scheduled to receive additional PRBCs. This may be beneficial for her cardiovascular status. (9) Hypokalemia: Status: Resolved Code(s): E87.6 - Hypokalemia Plan: Her potassium level remains low. She should also be considered for electrolyte supplementation. (10) YOSELIN (acute kidney injury): Status: Acute Code(s): N17.9 - Acute kidney failure, unspecified Plan: Her renal function will need to be followed for any acute changes as her clinical course progresses. (11) Encephalopathy acute: Status: Ruled-out Code(s): G93.40 - Encephalopathy, unspecified Plan: She has had issues with underlying mental status changes. This will require continued evaluation and care per internal medicine. This would impact her ability to go through any other cardiovascular studies especially invasive studies. Addt'l Comments This note was generated with [employer] software. It may contain incorrect words, spelling, and punctuation that were not noted in checking the note before signing.
[2020-12-01 22:00] LABS: Bedside Glucose 99 mg/dL (70-110)
[2020-12-02] VITALS (12 sets, daily range): BP systolic 101–122; BP diastolic 41–61; PULSE 56–71; RESP 12–18; TEMP 36.4–37.1; O2SAT 98–99
--- NOTE | 2020-12-02 05:55 | ECHOD_ITS ---
Reason For Study: S/P UT Procedure This was a 2D Doppler, Color Flow transthoracic echocardiogram. The exam was of adequate technical quality. Exam performed portable in patient room. Left Ventricle Normal LV size. Segmental dysfunction with preserved ejection fraction (see wall motion). The estimated ejection fraction is 55 %. Diastolic function is indeterminate. Mid-Anterior : Hypokinetic. Mid-Lateral : Hypokinetic. Anterior [place] : Akinetic. Inferior [place] : Akinetic. Lateral [place] : Hypokinetic. Septal [place] : Akinetic. Right Ventricle Normal RV size. Normal systolic function. Atria The left atrium is mildly enlarged. Normal right atrium. No doppler evidence for ASD. Mitral Valve There is no mitral annular calcification. Normal mitral valve. Mild (1+) mitral valve insufficiency. Tricuspid Valve Normal tricuspid valve. Mild tricuspid valve insufficiency. Right ventricular systolic pressure estimated to be 30 mmHg. Aortic Valve Trisinus/trileaflet aortic valve. Severe focal aortic valve calcification. Mild aortic stenosis. Pulmonic Valve The pulmonic valve is not well visualized. Great Vessels Normal sized aortic root. Pericardium/Pleural No pericardial effusion. MMode/2D Measurements & Calculations LVIDd: 4.9 cm IVSd: 1.2 cm LVOT diam: 2.2 cm LVIDs: 3.4 cm LVPWd: 0.98 cm LVOT area: 3.9 cm2 RVDd: 3.6 cm FS: 30.7 % Ao root diam: 3.5 cm LAV(MOD-bp): 78.7 ml LVAd ap4: 41.3 cm2 LAV(MOD-bp) Indexed: 40.3 ml/m2 LVLd ap4: 10.2 cm LAV(MOD-sp2): 59.2 ml EDV(MOD-sp4): 132.8 ml LAV(MOD-sp4): 75.9 ml EDV(sp4-el): 141.6 ml LVAs ap4: 27.1 cm2 LVLs ap4: 9.3 cm ESV(MOD-sp4): 62.7 ml ESV(sp4-el): 66.8 ml EF(MOD-sp4): 52.8 % EF(sp4-el): 52.9 % SV(MOD-sp4): 70.1 ml SV(sp4-el): 74.9 ml LA A4 area: 24.2 cm2 LA dimension(2D): 4.4 cm RA A4 area: 14.1 cm2 Doppler Measurements & Calculations MV E max melo: 81.6 cm/sec Lat Peak E' Melo: 10.5 cm/sec Med Peak E' Melo: 6.1 cm/sec MV A max melo: 102.4 cm/sec E/E' lat: 7.7 E/E' med: 13.4 MV E/A: 0.80 Ao V2 max: 245.2 cm/sec LV V1 max: 108.0 cm/sec SV(LVOT): 116.7 ml Ao max P.0 mmHg LV V1 max P.7 mmHg Ao V2 mean: 170.9 cm/sec LV V1 mean P.8 mmHg Ao mean P.1 mmHg LV V1 mean: 80.1 cm/sec Ao V2 VTI: 59.8 cm LV V1 VTI: 30.1 cm CASH(I,D): 2.0 cm2 CASH(V,D): 1.7 cm2 PA V2 max: 125.0 cm/sec TR max melo: 259.4 cm/sec TR max P.9 mmHg ECHO/Echo Complete Interpretation Summary Segmental dysfunction with preserved ejection fraction (see wall motion). The estimated ejection fraction is 55 %. The left atrium is mildly enlarged. Mild (1+) mitral valve insufficiency. Mild tricuspid valve insufficiency. Mild aortic stenosis. Right ventricular systolic pressure estimated to be 30 mmHg. Diastolic function is indeterminate. Ordering Physician: Meet Kumar Referring Physician: Diana Cohen Performed By: Luciana Collazo RDCS
[2020-12-02 05:59] LABS: Absolute Lymphocyte Count 1.23 X10^3/uL (0.83-4.51); Absolute Neutrophil Count 1.7 X10^3/uL (2.0-7.7); Basophil# 0.01 X10^3/uL; Basophil% 0.3 % (0-1); Eosinophil# 0.07 X10^3/uL; Eosinophils% 2.1 % (0-5); Hematocrit 22.6 % (37-47); Hemoglobin 7.3 g/dL (12.0-15.0); Lymphocyte # 1.23 X10^3/ul (0.83-4.51); Lymphocyte % 37.5 % (19-41); Mean Corp Hgb Conc 32.3 g/dL (32-36); Mean Corpuscular Hgb 31.2 pg (27.0-32.0); Mean Corpuscular Volume 96.6 fL (81-99); Monocyte% 9.1 % (0-10); NRBC Flagged by Analyzer 0 % (0-5); Neutrophil # 1.66 X10^3/uL (2.7-7.7); Neutrophil % 50.7 % (47-70); Platelet Count 115 K/mm3 (150-450); RBC Distribution Width CV 17.8 % (11.6-14.6); RBC Distribution Width SD 62.2 fl (35.1-43.9); Red Blood Count 2.34 M/mm3 (4.2-5.4); White Blood Count 3.3 K/mm3 (4.4-11.0)
[2020-12-02 06:20] LABS: Anion Gap 3 (5-15); BUN 39 mg/dL (7-18); BUN/Creat Ratio 44.6 RATIO (10-20); Calcium,Total 8.5 mg/dL (8.5-10.1); Chloride 106 mmol/L (98-107); Creatinine, Serum 0.88 mg/dL (0.55-1.02); EST Glomerular Filtration Rate 66 mL/min (>60); Est Glom Filt Rate - Afr Amer 80 mL/min (>60); Estimated Creatinine Clearance 48.76 ml/min; Glucose 76 mg/dL (74-106); Potassium 3.6 mmol/L (3.5-5.1); Sodium Level 140 mmol/L (136-145)
[2020-12-02] MEDS: Menthol/Lanolin/Calamine/Znox 113 GM Tube 1 APPLIC TOPICAL ×3 (06:37→20:17)
[2020-12-02] MEDS: Levothyroxine 100 MCG Tablet PO (06:37)
[2020-12-02 06:55] LABS: Bedside Glucose 89 mg/dL (70-110)
[2020-12-02 08:37] LABS: Ferritin 20 ng/mL (8-252); Iron Binding Capacity,Total 284 ug/dL (250-450)
--- NOTE | 2020-12-02 10:12 | PCM.PN.CARD ---
Subjective Subjective: The patient remains somewhat confused. She does not appear to have acute complaints this morning. Objective Data Objective Data Vital Signs: Vital Signs Temp Pulse Resp BP Pulse Ox 98.7 F 68 12 101/41 L 99 12/02/20 03:50 12/02/20 07:36 12/02/20 03:50 12/02/20 03:50 12/02/20 03:50 Oxygen Delivery Method Room Air Weight: 185 lb 6.54 oz Body Mass Index (BMI) 29.0 Finger Stick Blood Glucose 270 Intake & Output: Intake and Output for Last 24 Hours 11/30/20 12/01/20 12/02/20 23:59 23:59 23:59 Intake Total 620 / 620 2120 / 2120 Output Total 500 / 500 1000 / 1000 300 / 300 Balance 120 / 120 1120 / 1120 -300 / -300 Lab / Micro Data Result Diagrams: 12/02/20 05:28 12/02/20 05:28 Labs: Laboratory Results - last 24 hr 11/30/20 12/01/20 12/01/20 17:04 11:26 16:47 WBC RBC Hgb Hct MCV MCH MCHC RDW Std Deviation RDW Coeff of Conchis Plt Count MPV Immature Gran % (Auto) Neut % (Auto) Lymph % (Auto) [place] % (Auto) Eos % (Auto) Baso % (Auto) Absolute Neuts (auto) Absolute Lymphs (auto) Nucleated RBC % Sodium Potassium Chloride Carbon Dioxide Anion Gap BUN Creatinine Estim Creat Clear Calc Est GFR (MDRD) Af Amer Est GFR (MDRD) Non-Af BUN/Creatinine Ratio Glucose Calcium TIBC Ferritin POC Glucose 202 H 125 H Crossmatch See Detail 12/01/20 12/02/20 12/02/20 21:52 05:28 05:28 WBC 3.3 L RBC 2.34 L Hgb 7.3 L Hct 22.6 L MCV 96.6 MCH 31.2 MCHC 32.3 RDW Std Deviation 62.2 H RDW Coeff of Conchis 17.8 H Plt Count 115 L MPV 10.0 Immature Gran % (Auto) 0.300 Neut % (Auto) 50.7 Lymph % (Auto) 37.5 [place] % (Auto) 9.1 Eos % (Auto) 2.1 Baso % (Auto) 0.3 Absolute Neuts (auto) 1.7 L Absolute Lymphs (auto) 1.23 Nucleated RBC % 0 Sodium 140 Potassium 3.6 Chloride 106 Carbon Dioxide 31.0 Anion Gap 3 L BUN 39 H Creatinine 0.88 Estim Creat Clear Calc 48.76 Est GFR (MDRD) Af Amer 80 Est GFR (MDRD) Non-Af 66 BUN/Creatinine Ratio 44.6 H Glucose 76 Calcium 8.5 TIBC Ferritin POC Glucose 99 Crossmatch 12/02/20 12/02/20 05:28 06:32 WBC RBC Hgb Hct MCV MCH MCHC RDW Std Deviation RDW Coeff of [place] Plt Count MPV Immature Gran % (Auto) Neut % (Auto) Lymph % (Auto) [place] % (Auto) Eos % (Auto) Baso % (Auto) Absolute Neuts (auto) Absolute Lymphs (auto) Nucleated RBC % Sodium Potassium Chloride Carbon Dioxide Anion Gap BUN Creatinine Estim Creat Clear Calc Est GFR (MDRD) Af Amer Est GFR (MDRD) Non-Af BUN/Creatinine Ratio Glucose Calcium TIBC 284 Ferritin 20 POC Glucose 89 Crossmatch Micro: Microbiology 12/01/20 01:50 Stool Stool Occult Blood (TARUN) - Final Occult Blood Positive 11/30/20 08:15 Mucosa - Nasopharyngeal SARS-CoV-2 Antigen (Rapid) - Final Physical Exam Narrative This patient appears to be awake but not alert and oriented x3 and resting in the supine position comfortably at this time. Const Orientation / Consciousness: awake HEENT normocephalic and head/scalp atraumatic Eyes PERRL and EOMs intact bilaterally Neck full ROM and supple Chest inspection of chest normal Resp normal respiratory effort Cardio regular rate, regular rhythm, S1 normal heart sound and S2 normal heart sound Heart Sounds: murmur systolic III/ harsh mid left sternal border, LVOT and sternal notch GI normal to inspection, nondistended, normoactive bowel sounds Extremity General Extremity: edema bilateral lower extremity Details: mild Psych Psych Narrative: Confused Assessment & Plan Assessment/Plan (1) Elevated troponin I level: Status: Acute Code(s): R77.8 - Other specified abnormalities of plasma proteins Plan: The patient does have abnormal cardiac enzymes/troponin I levels. These findings are concerning for an acute non-ST segment elevation [place]. It is unclear at this time whether this is related to a type I event based on the patient's underlying known CAD process and previous multiple PCI procedures versus a type II event from supply demand mismatch being brought out by her marked anemia. Her troponin I levels have decreased. An echocardiogram is pending to reassess her left ventricular wall motion and systolic function. She will need to continue medical therapy as she is able taken into consideration her multiple medical issues. At the moment taking into consideration a combination of her age with her multiple cardiovascular and noncardiovascular comorbidities especially with respect to ongoing anemia she does not appear to be an ideal candidate for invasive evaluation. If she would need invasive evaluation with repeat diagnostic cardiac catheterization then based upon her complex cardiovascular history as previously noted she would need to be transferred to a tertiary care center such as [facility] or the [facility] for additional evaluation and care. (2) CAD (coronary artery disease): Status: Chronic Code(s): I25.10 - Atherosclerotic heart disease of [place] coronary artery without angina pectoris Qualifiers: Coronary Disease-Associated Artery/Lesion type: [place] artery [place] vs. transplanted heart: [place] heart Plan: She does have an extensive CAD history requiring multiple cardiac catheterizations and multiple PCI procedures. Again at the moment she will continue medical therapy based upon her ongoing noncardiac comorbidities. Depending upon her clinical course if she does require repeat invasive evaluation then as noted above she would need to be transferred to a center such as [facility] or the [facility] for additional evaluation and care. (3) History of coronary artery stent placement: Status: Chronic Code(s): Z95.5 - Presence of coronary angioplasty implant and graft Plan: She does have an extensive history of multiple PTCA/stent procedures over the years. These have required additional catheter-based procedures such as laser atherectomy, etc. Thus, if she would require repeat evaluation and care in the cardiac catheterization laboratory this should be performed at a tertiary care center. (4) Non-rheumatic aortic stenosis: Status: Chronic Code(s): I35.0 - Nonrheumatic aortic (valve) stenosis Plan: She does have a history of aortic valve disorder with aortic valve stenosis. She is undergoing an echocardiogram today to reassess her aortic valve anatomy and physiology. (5) Chronic diastolic (congestive) heart failure: Status: Chronic Code(s): I50.32 - Chronic diastolic (congestive) heart failure Plan: She does not appear to have any acute on chronic CHF symptoms at this time. She will need to be monitored for any concerns of volume overload. (6) Hyperlipidemia: Status: Chronic Code(s): E78.5 - Hyperlipidemia, unspecified Qualifiers: Hyperlipidemia type: unspecified Qualified Code(s): E78.5 - Hyperlipidemia, unspecified Plan: She should continue risk factor evaluation care as deemed appropriate. (7) Essential hypertension: Status: Chronic Code(s): I10 - Essential (primary) hypertension Plan: Her blood pressure can be followed and her medications can be adjusted accordingly. (8) Anemia: Status: Chronic Code(s): D64.9 - Anemia, unspecified Plan: She did receive 1 unit of PRBCs. Her hemoglobin increased somewhat but not significantly. Still need additional PRBCs. (9) Hypokalemia: Status: Resolved Code(s): E87.6 - Hypokalemia Plan: Her electrolytes will need to be followed and supplemented accordingly. (10) YOSELIN (acute kidney injury): Status: Acute Code(s): N17.9 - Acute kidney failure, unspecified Plan: Her renal function will need to be followed for any acute changes as her clinical course progresses. (11) Encephalopathy acute: Status: Ruled-out Code(s): G93.40 - Encephalopathy, unspecified Plan: She has had issues with underlying mental status changes. This will require continued evaluation and care per internal medicine. This would impact her ability to go through any other cardiovascular studies especially invasive studies. Addt'l Comments This note was generated with [employer] software. It may contain incorrect words, spelling, and punctuation that were not noted in checking the note before signing.
[2020-12-02] MEDS: Potassium Chloride Oral Tablet 20 MEQ 40 MEQ PO (10:21)
[2020-12-02] MEDS: Aspirin 81 MG TAB.CHEW PO (10:21)
[2020-12-02] MEDS: Carvedilol 3.125 MG TABLET PO ×2 (10:21→17:37)
[2020-12-02] MEDS: Mirabegron 25 MG TAB.ER.24H PO (10:22)
[2020-12-02] MEDS: Cholecalciferol (VIT D3) 25 MCG TABLET (1,000 UNITS) 125 MCG PO (10:22)
[2020-12-02] MEDS: Pantoprazole Sodium 40 MG Tablet PO (10:23)
[2020-12-02] MEDS: Pravastatin 80 MG Tablet PO (10:23)
[2020-12-02] MEDS: Ranolazine 500 MG Tablet 1000 MG PO ×2 (10:23→20:17)
[2020-12-02] MEDS: Ascorbic Acid 500 MG Tablet PO (10:24)
[2020-12-02] MEDS: Prenatal Vits Tablet 1 TABLET PO (10:53)
[2020-12-02] MEDS: Insulin Lispro 100 UNIT/ML INSULN.PEN SC ×2 (12:35→17:36)
[2020-12-02 12:40] LABS: Bedside Glucose 241 mg/dL (70-110)
--- NOTE | 2020-12-02 12:56 | CASEMGMT ---
SUAD spoke with patient this am and asked her if she wants [facility] to bring her clothes as well. She did and SUAD wrote down what she wanted. SUAD told her SW will continue to try and reach [facility]. SUAD has called [facility] a couple of times this am to see if they have decided on whether or not they can take patient. SUAD left a voice mail. Karina Simmons MSW AMA
[2020-12-02] MEDS: 0.9% Saline Lock 10 ML Syringe IV (14:21)
--- NOTE | 2020-12-02 14:30 | CASEMGMT ---
SUAD spoke with [facility] and they are still discussing patient. SUAD faxed a list of things patient wants from her apartment. SUAD called [facility] and spoke with Aby. SUAD let her know SW faxed a list to them. She will look out for it. Karina Simmons LINING MACHINE TENDER AMA
--- NOTE | 2020-12-02 15:14 | PN.HOSP_ITS ---
Subjective Subjective: No events overnight. Objective Data Objective Data Vital Signs: Vital Signs Temp Pulse Resp BP Pulse Ox 36.8 C 68 18 109/53 L 99 12/02/20 15:03 12/02/20 15:03 12/02/20 15:03 12/02/20 15:03 12/02/20 15:03 Oxygen Delivery Method Room Air Weight: 84.1 kg Body Mass Index (BMI) 29.0 Finger Stick Blood Glucose 270 Intake & Output: Intake and Output for Last 24 Hours 11/30/20 12/01/20 12/02/20 23:59 23:59 23:59 Intake Total 620 / 620 2120 / 2120 0 / 0 Output Total 500 / 500 1000 / 1000 500 / 500 Balance 120 / 120 1120 / 1120 -500 / -500 Lab / Micro Data Result Diagrams: 12/02/20 05:28 12/02/20 05:28 Labs: Laboratory Results - last 24 hr 11/30/20 11/30/20 12/01/20 17:04 17:04 16:47 WBC RBC Hgb Hct MCV MCH MCHC RDW Std Deviation RDW Coeff of Conchis Plt Count MPV Immature Gran % (Auto) Neut % (Auto) Lymph % (Auto) [place] % (Auto) Eos % (Auto) Baso % (Auto) Absolute Neuts (auto) Absolute Lymphs (auto) Nucleated RBC % Sodium Potassium Chloride Carbon Dioxide Anion Gap BUN Creatinine Estim Creat Clear Calc Est GFR (MDRD) Af Amer Est GFR (MDRD) Non-Af BUN/Creatinine Ratio Glucose Calcium TIBC Ferritin POC Glucose 125 H Crossmatch See Detail See Detail 12/01/20 12/02/20 12/02/20 21:52 05:28 05:28 WBC 3.3 L RBC 2.34 L Hgb 7.3 L Hct 22.6 L MCV 96.6 MCH 31.2 MCHC 32.3 RDW Std Deviation 62.2 H RDW Coeff of Conchis 17.8 H Plt Count 115 L MPV 10.0 Immature Gran % (Auto) 0.300 Neut % (Auto) 50.7 Lymph % (Auto) 37.5 [place] % (Auto) 9.1 Eos % (Auto) 2.1 Baso % (Auto) 0.3 Absolute Neuts (auto) 1.7 L Absolute Lymphs (auto) 1.23 Nucleated RBC % 0 Sodium 140 Potassium 3.6 Chloride 106 Carbon Dioxide 31.0 Anion Gap 3 L BUN 39 H Creatinine 0.88 Estim Creat Clear Calc 48.76 Est GFR (MDRD) Af Amer 80 Est GFR (MDRD) Non-Af 66 BUN/Creatinine Ratio 44.6 H Glucose 76 Calcium 8.5 TIBC Ferritin POC Glucose 99 Crossmatch 12/02/20 12/02/20 12/02/20 05:28 06:32 12:33 WBC RBC Hgb Hct MCV MCH MCHC RDW Std Deviation RDW Coeff of Conchis Plt Count MPV Immature Gran % (Auto) Neut % (Auto) Lymph % (Auto) [place] % (Auto) Eos % (Auto) Baso % (Auto) Absolute Neuts (auto) Absolute Lymphs (auto) Nucleated RBC % Sodium Potassium Chloride Carbon Dioxide Anion Gap BUN Creatinine Estim Creat Clear Calc Est GFR (MDRD) Af Amer Est GFR (MDRD) Non-Af BUN/Creatinine Ratio Glucose Calcium TIBC 284 Ferritin 20 POC Glucose 89 241 H Crossmatch Micro: Microbiology 12/01/20 01:50 Stool Stool Occult Blood (TARUN) - Final Occult Blood Positive 11/30/20 08:15 Mucosa - Nasopharyngeal SARS-CoV-2 Antigen (Rapid) - Final Radiography Diagnostic Testing: Radiology Impression Echocardiogram 12/02/20 05:55 Interpretation Summary Segmental dysfunction with preserved ejection fraction (see wall motion). The estimated ejection fraction is 55 %. The left atrium is mildly enlarged. Mild (1+) mitral valve insufficiency. Mild tricuspid valve insufficiency. Mild aortic stenosis. Right ventricular systolic pressure estimated to be 30 mmHg. Diastolic function is indeterminate. ____ Ordering Physician: Meet Kumar Referring Physician: Diana Cohen Performed By: Luciana Collazo, CHACE Physical Exam Const alert Exam Limitations: no limitations Resp normal respiratory effort and clear to auscultation bilaterally Cardio regular rate, regular rhythm, S1 normal heart sound and S2 normal heart sound GI normal to inspection, nondistended, normoactive bowel sounds, non-tender and non-distended Assessment & Plan Assessment/Plan (1) Elevated troponin I level: Status: Acute Code(s): R77.8 - Other specified abnormalities of plasma proteins Plan: Still elevated. Cardiology following Complicated case given comorbidities, anemia On Carvedilol, ASA Echo shows EF 55%, similiar to 02/11/2020 (2) Hypokalemia: Status: Resolved Code(s): E87.6 - Hypokalemia Plan: replace. Monitor (3) Generalized weakness: Status: Inactive Code(s): R53.1 - Weakness Plan: PT OT eval May need SNF (4) YOSELIN (acute kidney injury): Status: Acute Code(s): N17.9 - Acute kidney failure, unspecified Plan: resolved continue to hold metolazone, furosemide, losartan (5) Anemia: Status: Chronic Code(s): D64.9 - Anemia, unspecified Qualifiers: Anemia type: unspecified type Qualified Code(s): D64.9 - Anemia, unspecified Plan: transfuse a 3rd unit (6) Encephalopathy acute: Status: Ruled-out Code(s): G93.40 - Encephalopathy, unspecified Plan: Chronic. Follow up with geriatrics for dementia evaluation. Inpatient E&M: [id number] Subs Hosp L2
[2020-12-02] MEDS: Isosorbide Mononitrate 30 MG Tablet PO (17:37)
[2020-12-02 17:41] LABS: Bedside Glucose 240 mg/dL (70-110)
[2020-12-02] MEDS: Acetaminophen 325 MG Tablet 650 MG PO (20:13)
[2020-12-02 20:16] LABS: Bedside Glucose 308 mg/dL (70-110)
[2020-12-02] MEDS: Insulin Lispro 100 UNIT/ML INSULN.PEN 8 UNIT SC (22:06)
[2020-12-03] VITALS (9 sets, daily range): BP systolic 101–125; BP diastolic 40–55; PULSE 64–90; RESP 16–18; TEMP 36.8–37.3; O2SAT 96–99
[2020-12-03 01:51] LABS: Bedside Glucose 107 mg/dL (70-110)
[2020-12-03] MEDS: Levothyroxine 100 MCG Tablet PO (05:21)
[2020-12-03] MEDS: Menthol/Lanolin/Calamine/Znox 113 GM Tube 1 APPLIC TOPICAL ×3 (05:21→21:53)
[2020-12-03] MEDS: Insulin Lispro 100 UNIT/ML INSULN.PEN SC ×3 (08:23→16:51)
[2020-12-03] MEDS: Cholecalciferol (VIT D3) 25 MCG TABLET (1,000 UNITS) 125 MCG PO (08:24)
[2020-12-03] MEDS: Aspirin 81 MG TAB.CHEW PO (08:24)
[2020-12-03] MEDS: Ascorbic Acid 500 MG Tablet PO (08:24)
[2020-12-03] MEDS: Mirabegron 25 MG TAB.ER.24H PO (08:25)
[2020-12-03] MEDS: Pravastatin 80 MG Tablet PO (08:25)
[2020-12-03] MEDS: Ranolazine 500 MG Tablet 1000 MG PO (08:25)
[2020-12-03] MEDS: Potassium Chloride Oral Tablet 20 MEQ 40 MEQ PO (08:25)
[2020-12-03] MEDS: Pantoprazole Sodium 40 MG Tablet PO (08:25)
[2020-12-03] MEDS: Carvedilol 3.125 MG TABLET PO ×2 (08:26→16:47)
[2020-12-03 08:41] LABS: Bedside Glucose 91 mg/dL (70-110)
--- NOTE | 2020-12-03 09:15 | CASEMGMT ---
SUAD received a voice mail from [facility] and they cannot accept patient. SUAD spoke with patient and she agreed to try TCU. SUAD called [facility] and she will start the pre-cert. SUAD let patient know we are waiting on her insurance. SUAD also called [facility] and asked if they received SUAD's fax with the list of items patient wants. Aby said they did. Karina SERRATO
--- NOTE | 2020-12-03 09:29 | PN.CARD_ITS ---
Subjective Subjective: The patient appears to be resting comfortably. She has not voiced any acute complaints with respect to ongoing chest discomfort or difficulty breathing. Objective Data Vital Signs: Vital Signs Temp Pulse Resp BP Pulse Ox 98.3 F 64 16 101/46 L 96 12/03/20 02:50 12/03/20 08:00 12/03/20 02:50 12/03/20 02:50 12/03/20 02:50 Oxygen Delivery Method Room Air Weight: 185 lb 6.54 oz Body Mass Index (BMI) 29.0 Finger Stick Blood Glucose 270 Intake & Output: Intake and Output for Last 24 Hours 12/01/20 12/02/20 12/03/20 23:59 23:59 23:59 Intake Total 2120 / 2120 400 / 650 400 / 400 Output Total 1000 / 1000 600 / 1200 950 / 950 Balance 1120 / 1120 -200 / -550 -550 / -550 Lab / Micro Data Result Diagrams: 12/02/20 05:28 12/02/20 05:28 Labs: Laboratory Results - last 24 hr 11/30/20 11/30/20 12/02/20 17:04 17:04 05:28 TIBC 284 Ferritin 20 POC Glucose Crossmatch See Detail See Detail 12/02/20 12/02/20 12/02/20 12:33 17:35 20:06 TIBC Ferritin POC Glucose 241 H 240 H 308 H Crossmatch 12/03/20 12/03/20 01:44 08:22 TIBC Ferritin POC Glucose 107 91 Crossmatch Micro: Microbiology 12/01/20 01:50 Stool Stool Occult Blood (TARUN) - Final Occult Blood Positive 11/30/20 08:15 Mucosa - Nasopharyngeal SARS-CoV-2 Antigen (Rapid) - Final Cardiology Labs/Tests 12/02/20 05:28: TIBC 284, Ferritin 20 Rhythm: Sinus rhythm/sinus bradycardia Radiography Diagnostic Testing: Radiology Impression Echocardiogram 12/02/20 05:55 Interpretation Summary Segmental dysfunction with preserved ejection fraction (see wall motion). The estimated ejection fraction is 55 %. The left atrium is mildly enlarged. Mild (1+) mitral valve insufficiency. Mild tricuspid valve insufficiency. Mild aortic stenosis. Right ventricular systolic pressure estimated to be 30 mmHg. Diastolic function is indeterminate. _ Ordering Physician: Meet Kumar Referring Physician: Diana Cohen Performed By: Luciana Collazo YESENIA Physical Exam Narrative This patient appears to be awake but not alert and oriented x3 and resting in the supine position comfortably at this time. Const Orientation / Consciousness: awake HEENT normocephalic and head/scalp atraumatic Eyes PERRL and EOMs intact bilaterally Neck full ROM and supple Chest inspection of chest normal Resp normal respiratory effort Cardio regular rate, regular rhythm, S1 normal heart sound and S2 normal heart sound Heart Sounds: murmur systolic III/ harsh mid left sternal border, LVOT and sternal notch GI normal to inspection, nondistended, normoactive bowel sounds Extremity General Extremity: edema bilateral lower extremity Details: mild Psych Psych Narrative: Confused Assessment & Plan Assessment/Plan (1) Elevated troponin I level: Status: Acute Code(s): R77.8 - Other specified abnormalities of plasma proteins Plan: The patient does have abnormal cardiac enzymes/troponin I levels. These findings are concerning for an acute non-ST segment elevation [place]. It is unclear at this time whether this is related to a type I event based on the patient's underlying known CAD process and previous multiple PCI procedures versus a type II event from supply demand mismatch being brought out by her marked anemia. Her troponin I levels have decreased. Her echocardiogram is as noted above. She will need to continue medical therapy as she is able taken into consideration her multiple medical issues. At the moment taking into consideration a combination of her age with her multiple cardiovascular and noncardiovascular comorbidities especially with respect to ongoing anemia she does not appear to be an ideal candidate for invasive evaluation. If she would need invasive evaluation with repeat diagnostic cardiac catheterization then based upon her complex cardiovascular history as previously noted she would need to be transferred to a tertiary care center such as [facility] or the [facility] for additional evaluation and care. (2) CAD (coronary artery disease): Status: Chronic Code(s): I25.10 - Atherosclerotic heart disease of [place] coronary artery without angina pectoris Qualifiers: Coronary Disease-Associated Artery/Lesion type: [place] artery [place] vs. transplanted heart: [place] heart Plan: She does have an extensive CAD history requiring multiple cardiac catheterizations and multiple PCI procedures. Again at the moment she will continue medical therapy based upon her ongoing noncardiac comorbidities. An attempt will be made, based upon her lack of ongoing acute symptoms and taking into consideration her underlying mental status changes, to minimize her cardiovascular medical therapy as best as possible. Depending upon her clinical course if she does require repeat invasive evaluation then as noted above she would need to be transferred to a center such as [facility] or the [facility] for additional evaluation and care. (3) History of coronary artery stent placement: Status: Chronic Code(s): Z95.5 - Presence of coronary angioplasty implant and graft Plan: She does have an extensive history of multiple PTCA/stent procedures over the years. These have required additional catheter-based procedures such as laser atherectomy, etc. Thus, if she would require repeat evaluation and care in the cardiac catheterization laboratory this should be performed at a tertiary care [facility]. (4) Non-rheumatic aortic stenosis: Status: Chronic Code(s): I35.0 - Nonrheumatic aortic (valve) stenosis Plan: She does have a history of aortic valve disorder with aortic valve stenosis. Her echocardiogram is as noted above. (5) Chronic diastolic (congestive) heart failure: Status: Chronic Code(s): I50.32 - Chronic diastolic (congestive) heart failure Plan: She does not appear to have any acute on chronic CHF symptoms at this time. She will need to be monitored for any concerns of volume overload. (6) Hyperlipidemia: Status: Chronic Code(s): E78.5 - Hyperlipidemia, unspecified Qualifiers: Hyperlipidemia type: unspecified Qualified Code(s): E78.5 - Hyperlipidemia, unspecified Plan: She should continue risk factor evaluation care as deemed appropriate. (7) Essential hypertension: Status: Chronic Code(s): I10 - Essential (primary) hypertension Plan: Her blood pressure can be followed and her medications can be adjusted accordingly. (8) Anemia: Status: Chronic Code(s): D64.9 - Anemia, unspecified Plan: She did receive 1 unit of PRBCs. Her hemoglobin increased somewhat but not significantly. She may need additional PRBCs to increase her H&H to assist with her oxygen carrying capacity. (9) Hypokalemia: Status: Resolved Code(s): E87.6 - Hypokalemia Plan: Her electrolytes will need to be followed and supplemented accordingly. (10) YOSELIN (acute kidney injury): Status: Acute Code(s): N17.9 - Acute kidney failure, unspecified Plan: Her renal function will need to be followed for any acute changes as her clinical course progresses. (11) Encephalopathy acute: Status: Ruled-out Code(s): G93.40 - Encephalopathy, unspecified Plan: She has had issues with underlying mental status changes. This will require continued evaluation and care per internal medicine. This would impact her ability to go through any other cardiovascular studies especially invasive studies. Addt'l Comments Overall, at the present time, cardiovascular plan is for continued conservative medical management. This note was generated with [employer] dictation software. It may contain incorrect words, spelling, and punctuation that were not noted in checking the note before signing.
[2020-12-03 09:31] LABS: Absolute Lymphocyte Count 1.04 X10^3/uL (0.83-4.51); Absolute Neutrophil Count 2.2 X10^3/uL (2.0-7.7); Basophil# 0.01 X10^3/uL; Basophil% 0.3 % (0-1); Eosinophil# 0.13 X10^3/uL; Eosinophils% 3.6 % (0-5); Hematocrit 27.2 % (37-47); Hemoglobin 8.7 g/dL (12.0-15.0); Lymphocyte # 1.04 X10^3/ul (0.83-4.51); Mean Corpuscular Volume 96.8 fL (81-99); Mean Platelet Vol. 10.2 fl (6.2-12.0); Monocyte# 0.25 X10^3/uL; NRBC Flagged by Analyzer 0 % (0-5); Neutrophil # 2.16 X10^3/uL (2.7-7.7); Neutrophil % 60.1 % (47-70); Platelet Count 119 K/mm3 (150-450); RBC Distribution Width CV 17.2 % (11.6-14.6); RBC Distribution Width SD 60.8 fl (35.1-43.9); Red Blood Count 2.81 M/mm3 (4.2-5.4); White Blood Count 3.6 K/mm3 (4.4-11.0)
[2020-12-03] MEDS: Prenatal Vits Tablet 1 TABLET PO (11:35)
[2020-12-03] MEDS: Isosorbide Mononitrate 30 MG Tablet PO (11:38)
[2020-12-03 11:55] LABS: Bedside Glucose 197 mg/dL (70-110)
--- NOTE | 2020-12-03 14:09 | CASEMGMT ---
Addendum entered by Jadyn Barfield 12/03/20 15:44: SW received message that an employee of [facility] will drop off personal belongings to hospital at 5pm. SUAD met with pt and informed of this. KARIN Ybarra Original Note: Social Work SW placed call to Francia at [facility]. Francia confirms they received the list of belongings that pt is requesting but she is uncertain if they can bring items over. Francia states she will talk to Hope, DON about ability to collect pt items and bring to pt. SUAD confirmed with Francia that pt has no family to bring her things and importance to patient to have her glasses and purse and personal belongings before going to SNF. Francia to call this SW back. KARIN Ybarra
--- NOTE | 2020-12-03 16:16 | PN.HOSP_ITS ---
Subjective Subjective: no events overnight. Objective Data Objective Data Vital Signs: Vital Signs Temp Pulse Resp BP Pulse Ox 36.9 C 69 18 114/49 L 98 12/03/20 15:05 12/03/20 16:00 12/03/20 15:05 12/03/20 15:05 12/03/20 15:05 Oxygen Delivery Method Room Air Weight: 84.1 kg Body Mass Index (BMI) 29.0 Finger Stick Blood Glucose 270 Intake & Output: Intake and Output for Last 24 Hours 12/01/20 12/02/20 12/03/20 23:59 23:59 23:59 Intake Total 2120 / 2120 400 / 650 640 / 640 Output Total 1000 / 1000 600 / 1200 1150 / 1150 Balance 1120 / 1120 -200 / -550 -510 / -510 Lab / Micro Data Result Diagrams: 12/03/20 09:20 12/02/20 05:28 Labs: Laboratory Results - last 24 hr 11/30/20 12/02/20 12/02/20 17:04 17:35 20:06 WBC RBC Hgb Hct MCV MCH MCHC RDW Std Deviation RDW Coeff of Conchis Plt Count MPV Immature Gran % (Auto) Neut % (Auto) Lymph % (Auto) [place] % (Auto) Eos % (Auto) Baso % (Auto) Absolute Neuts (auto) Absolute Lymphs (auto) Nucleated RBC % POC Glucose 240 H 308 H Crossmatch See Detail 12/03/20 12/03/20 12/03/20 01:44 08:22 09:20 WBC 3.6 L RBC 2.81 L Hgb 8.7 L Hct 27.2 L MCV 96.8 MCH 31.0 MCHC 32.0 RDW Std Deviation 60.8 H RDW Coeff of Conchis 17.2 H Plt Count 119 L MPV 10.2 Immature Gran % (Auto) 0.000 Neut % (Auto) 60.1 Lymph % (Auto) 29.0 [place] % (Auto) 7.0 Eos % (Auto) 3.6 Baso % (Auto) 0.3 Absolute Neuts (auto) 2.2 Absolute Lymphs (auto) 1.04 Nucleated RBC % 0 POC Glucose 107 91 Crossmatch 12/03/20 11:34 WBC RBC Hgb Hct MCV MCH MCHC RDW Std Deviation RDW Coeff of Conchis Plt Count MPV Immature Gran % (Auto) Neut % (Auto) Lymph % (Auto) [place] % (Auto) Eos % (Auto) Baso % (Auto) Absolute Neuts (auto) Absolute Lymphs (auto) Nucleated RBC % POC Glucose 197 H Crossmatch Micro: Microbiology 12/01/20 01:50 Stool Stool Occult Blood (TARUN) - Final Occult Blood Positive 11/30/20 08:15 Mucosa - Nasopharyngeal SARS-CoV-2 Antigen (Rapid) - Final Physical Exam Const alert Resp normal respiratory effort and clear to auscultation bilaterally Cardio regular rate, regular rhythm, S1 normal heart sound and S2 normal heart sound GI normal to inspection, nondistended, normoactive bowel sounds, non-tender and non-distended Extremity normal to inspection Assessment & Plan Assessment/Plan (1) Elevated troponin I level: Status: Acute Code(s): R77.8 - Other specified abnormalities of plasma proteins Plan: Still elevated. Cardiology following Complicated case given comorbidities, anemia On Carvedilol, ASA Echo shows EF 55%, similiar to 02/11/2020 (2) Hypokalemia: Status: Resolved Code(s): E87.6 - Hypokalemia Plan: replace. Monitor (3) Generalized weakness: Status: Inactive Code(s): R53.1 - Weakness Plan: PT OT eval May need SNF (4) YOSELIN (acute kidney injury): Status: Acute Code(s): N17.9 - Acute kidney failure, unspecified Plan: resolved continue to hold metolazone, furosemide, losartan (5) Anemia: Status: Chronic Code(s): D64.9 - Anemia, unspecified Qualifiers: Anemia type: unspecified type Qualified Code(s): D64.9 - Anemia, unspecified Plan: transfuse a 3rd unit currently Hg stable (6) Encephalopathy acute: Status: Ruled-out Code(s): G93.40 - Encephalopathy, unspecified Plan: Chronic. Follow up with geriatrics for dementia evaluation. Visit Charges Inpatient E&M: 96191 Subs Hosp L2
[2020-12-03 16:56] LABS: Bedside Glucose 223 mg/dL (70-110)
[2020-12-03 22:56] LABS: Bedside Glucose 316 mg/dL (70-110)
[2020-12-04] VITALS (9 sets, daily range): BP systolic 112–140; BP diastolic 39–50; PULSE 63–72; RESP 10–18; TEMP 36.6–37; O2SAT 97–100
[2020-12-04] MEDS: 0.9% Saline Lock 10 ML Syringe IV (04:30)
[2020-12-04] MEDS: Levothyroxine 100 MCG Tablet PO (05:43)
[2020-12-04] MEDS: Menthol/Lanolin/Calamine/Znox 113 GM Tube 1 APPLIC TOPICAL ×2 (05:43→11:39)
[2020-12-04] MEDS: Potassium Chloride Oral Tablet 20 MEQ 40 MEQ PO (09:16)
[2020-12-04] MEDS: Cholecalciferol (VIT D3) 25 MCG TABLET (1,000 UNITS) 125 MCG PO (09:16)
[2020-12-04] MEDS: Isosorbide Mononitrate 30 MG Tablet PO (09:16)
[2020-12-04] MEDS: Carvedilol 3.125 MG TABLET PO ×2 (09:17→17:41)
[2020-12-04] MEDS: Insulin Lispro 100 UNIT/ML INSULN.PEN SC ×3 (09:17→17:41)
[2020-12-04] MEDS: Aspirin 81 MG TAB.CHEW PO (09:18)
[2020-12-04] MEDS: Pravastatin 80 MG Tablet PO (09:18)
[2020-12-04] MEDS: Pantoprazole Sodium 40 MG Tablet PO (09:18)
[2020-12-04] MEDS: Mirabegron 25 MG TAB.ER.24H PO (09:18)
[2020-12-04] MEDS: Ascorbic Acid 500 MG Tablet PO (09:18)
[2020-12-04 09:35] LABS: Bedside Glucose 216 mg/dL (70-110)
[2020-12-04] MEDS: Prenatal Vits Tablet 1 TABLET PO (11:39)
[2020-12-04 12:00] LABS: Bedside Glucose 224 mg/dL (70-110)
--- NOTE | 2020-12-04 14:56 | PCM.PN.HOSP ---
Subjective Subjective: feeling well. no new complaints. Objective Data Objective Data Vital Signs: Vital Signs Temp Pulse Resp BP Pulse Ox 36.6 C 67 18 124/45 H 100 12/04/20 09:29 12/04/20 11:01 12/04/20 09:29 12/04/20 09:29 12/04/20 09:29 Oxygen Delivery Method Room Air Weight: 185 lb 6.54 oz Body Mass Index (BMI) 29.0 Finger Stick Blood Glucose 270 Intake & Output: Intake and Output for Last 24 Hours 12/02/20 12/03/20 12/04/20 23:59 23:59 23:59 Intake Total 400 / 650 1040 / 1260 630 / 630 Output Total 600 / 1200 1550 / 1800 850 / 850 Balance -200 / -550 -510 / -540 -220 / -220 Lab / Micro Data Result Diagrams: 12/03/20 09:20 12/02/20 05:28 Labs: Laboratory Results - last 24 hr 12/03/20 12/03/20 12/04/20 16:51 21:51 09:13 POC Glucose 223 H 316 H 216 H 12/04/20 11:36 POC Glucose 224 H Micro: Microbiology 12/01/20 01:50 Stool Stool Occult Blood (TARUN) - Final Occult Blood Positive 11/30/20 08:15 Mucosa - Nasopharyngeal SARS-CoV-2 Antigen (Rapid) - Final Physical Exam Const alert and oriented x3 Resp normal respiratory effort and clear to auscultation bilaterally Cardio regular rate, regular rhythm, S1 normal heart sound and S2 normal heart sound GI normal to inspection, nondistended, normoactive bowel sounds, non-tender and non-distended Extremity normal to inspection Assessment & Plan Assessment/Plan (1) Elevated troponin I level: Status: Acute Code(s): R77.8 - Other specified abnormalities of plasma proteins Plan: Still elevated. Cardiology following Complicated case given comorbidities, anemia On Carvedilol, ASA Echo shows EF 55%, similiar to 02/11/2020 (2) Hypokalemia: Status: Resolved Code(s): E87.6 - Hypokalemia Plan: replace. Monitor (3) Generalized weakness: Status: Inactive Code(s): R53.1 - Weakness Plan: PT OT eval May need SNF (4) YOSELIN (acute kidney injury): Status: Acute Code(s): N17.9 - Acute kidney failure, unspecified Plan: resolved continue to hold metolazone, furosemide, losartan (5) Anemia: Status: Chronic Code(s): D64.9 - Anemia, unspecified Qualifiers: Anemia type: unspecified type Qualified Code(s): D64.9 - Anemia, unspecified Plan: transfuse a 3rd unit currently Hg stable (6) Encephalopathy acute: Status: Ruled-out Code(s): G93.40 - Encephalopathy, unspecified Plan: Chronic. Follow up with geriatrics for dementia evaluation. (7) Debility, unspecified: Status: Acute Code(s): R53.81 - Other malaise Plan: awaiting on precertification for SNF. She will be here until at least 12/06. Transfer to [facility].
[2020-12-04 17:11] LABS: Bedside Glucose 243 mg/dL (70-110)
[2020-12-04 22:10] LABS: Bedside Glucose 219 mg/dL (70-110)
[2020-12-05] VITALS (8 sets, daily range): BP systolic 106–122; BP diastolic 42–55; PULSE 60–75; RESP 12–18; TEMP 36.7; O2SAT 98–100
[2020-12-05] MEDS: Polyethylene Glycol 3350 17 GM PACKET PO (00:25)
[2020-12-05] MEDS: Levothyroxine 100 MCG Tablet PO (06:38)
[2020-12-05] MEDS: Insulin Lispro 100 UNIT/ML INSULN.PEN SC ×3 (08:15→16:52)
[2020-12-05 08:21] LABS: Bedside Glucose 115 mg/dL (70-110)
[2020-12-05] MEDS: Potassium Chloride Oral Tablet 20 MEQ 40 MEQ PO (09:14)
[2020-12-05] MEDS: Aspirin 81 MG TAB.CHEW PO (09:14)
[2020-12-05] MEDS: Cholecalciferol (VIT D3) 25 MCG TABLET (1,000 UNITS) 125 MCG PO (09:14)
[2020-12-05] MEDS: Pravastatin 80 MG Tablet PO (09:14)
[2020-12-05] MEDS: Mirabegron 25 MG TAB.ER.24H PO (09:14)
[2020-12-05] MEDS: Carvedilol 3.125 MG TABLET PO ×2 (09:14→16:52)
[2020-12-05] MEDS: Isosorbide Mononitrate 30 MG Tablet PO (09:14)
[2020-12-05] MEDS: Ascorbic Acid 500 MG Tablet PO (09:14)
[2020-12-05] MEDS: Pantoprazole Sodium 40 MG Tablet PO (09:14)
[2020-12-05 11:21] LABS: Bedside Glucose 219 mg/dL (70-110)
--- NOTE | 2020-12-05 12:37 | PN.HOSP_ITS ---
Subjective Subjective: Asking about putting a needle in her abdomen to get out the infection. Objective Data Objective Data Vital Signs: Vital Signs Temp Pulse Resp BP Pulse Ox 36.7 C 63 18 112/53 L 100 12/05/20 08:12 12/05/20 08:12 12/05/20 08:12 12/05/20 08:12 12/05/20 08:12 Oxygen Delivery Method Room Air Weight: 185 lb 6.54 oz Body Mass Index (BMI) 29.0 Finger Stick Blood Glucose 270 Intake & Output: Intake and Output for Last 24 Hours 12/03/20 12/04/20 12/05/20 23:59 23:59 23:59 Intake Total 1040 / 1260 1830 / 1830 400 / 400 Output Total 1550 / 1800 850 / 850 300 / 300 Balance -510 / -540 980 / 980 100 / 100 Lab / Micro Data Result Diagrams: 12/03/20 09:20 12/02/20 05:28 Labs: Laboratory Results - last 24 hr 12/04/20 12/04/20 12/05/20 16:58 22:06 08:05 POC Glucose 243 H 219 H 115 H 12/05/20 10:57 POC Glucose 219 H Micro: Microbiology 12/01/20 01:50 Stool Stool Occult Blood (TARUN) - Final Occult Blood Positive 11/30/20 08:15 Mucosa - Nasopharyngeal SARS-CoV-2 Antigen (Rapid) - Final Physical Exam Const alert Eyes PERRL Resp normal respiratory effort and clear to auscultation bilaterally Cardio regular rate, regular rhythm, S1 normal heart sound and S2 normal heart sound GI normal to inspection, nondistended, normoactive bowel sounds, non-tender and non-distended Skin Skin Narrative: ecchymosis on RLQ Neuro Sensorium / Orientation: awake and alert Assessment & Plan Assessment/Plan (1) Elevated troponin I level: Status: Acute Code(s): R77.8 - Other specified abnormalities of plasma proteins Plan: Still elevated. Cardiology following Complicated case given comorbidities, anemia On Carvedilol, ASA Echo shows EF 55%, similiar to 02/11/2020 (2) Hypokalemia: Status: Resolved Code(s): E87.6 - Hypokalemia Plan: replace. Monitor (3) Generalized weakness: Status: Inactive Code(s): R53.1 - Weakness Plan: PT OT eval May need SNF (4) YOSELIN (acute kidney injury): Status: Acute Code(s): N17.9 - Acute kidney failure, unspecified Plan: resolved continue to hold metolazone, furosemide, losartan (5) Anemia: Status: Chronic Code(s): D64.9 - Anemia, unspecified Qualifiers: Anemia type: unspecified type Qualified Code(s): D64.9 - Anemia, unspecified Plan: transfuse a 3rd unit currently Hg stable (6) Encephalopathy acute: Status: Ruled-out Code(s): G93.40 - Encephalopathy, unspecified Plan: Chronic. Follow up with geriatrics for dementia evaluation. (7) Debility, unspecified: Status: Acute Code(s): R53.81 - Other malaise Plan: awaiting on precertification for SNF. She will be here until at least 12/06. Transfer to [facility]. Visit Charges Inpatient E&M: 56250 Subs Hosp L2
--- NOTE | 2020-12-05 14:14 | PCM.TXEXTCAR ---
Diet 11/30/20 18:38 Diet: Cardiac - Heart Healthy Dietary Modifications:: Consistent Carbohydrate Type of Dietary Supplement:: Ensure Enlive Is pt able to select menu?: No Diet Comments: 120ml deena ensure enlive w/ dinner Routine Orders/Code Status Routine Lab Work: CBC and BMP Code Status: Full Code Wound(s) left buttock/cleft: Wound Type: Pressure Injury Therapies Weight Bearing: Full weight bearing Physical Therapy: Eval and Treat Occupational Therapy: Eval and Treat Problem/Diagnosis (1) Elevated troponin I level: Status: Acute (2) Hypokalemia: Status: Resolved (3) Generalized weakness: Status: Inactive (4) YOSELIN (acute kidney injury): Status: Acute (5) Anemia: Status: Chronic (6) Encephalopathy acute: Status: Ruled-out (7) Debility, unspecified: Status: Acute Allergies/Procedures Done in Hospital Allergies aripiprazole [From Abilify] Allergy (Intermediate, Verified 11/21/20 03:29) it over powered me lisinopril Allergy (Intermediate, Verified 11/21/20 03:29) Unknown atorvastatin calcium [From Lipitor] Adverse Reaction (Verified 11/21/20 03:29) Unknown rosiglitazone maleate [From Avandia] Adverse Reaction (Verified 11/21/20 03:29) Other Procedures: 2-D Echocardiogram Type of Care/Length of Stay Estimated LOS: Convalescent Care Less Than 30 days Type of Care Needed: Skilled Rehab Potential: Good Prognosis: Good Additional Orders/Day of Discharge Additional Orders: Active with [facility] Day of Discharge: 12/06/20 Dietary and Speech Recommendations Dietitian Recommendations/Changes: Will adjust diet to carb-controlled/cardiac (no caloric restriction). Will add 120ml deena ensure enlive w/ dinner for tolerance. Follow Up Care Please follow up with your Primary Care Physician in: 2 weeks Please Follow Up With: Cardiology When: 4-6 weeks Discharge Plan Admission Admit Date/Time: 11/30/20 15:50 Attending Provider: Marty Castillo Primary Care Provider: Diana Cohen Consulting Providers: Meet Kumar Discharge Orders/Prescriptions Prescriptions: New acetaminophen [Tylenol] 325 mg Tablet 650 mg PO Q6H PRN PRN (Reason: Pain Score 1-10/Temp > 100.7 F) Qty: 1 RF: 0 potassium chloride [Klor-Con M20] 20 mEq Tablet,Er Particles/Crystals 40 meq PO DAILY@0800 Qty: 0 RF: 0 bisacodyl 5 mg Tablet,Delayed Release (Dr/Ec) 5 mg PO DAILY PRN (Reason: constipation) Qty: 1 RF: 0 Calmoseptine 0.44-20.6 % Ointment 1 applic topical TID Qty: 71 RF: 0 Continued nitroglycerin 0.4 MG tablet, sublingual 0.4 mg SL PRN PRN (Reason: CHEST PAIN) RF: 0 aspirin 81 MG tablet,chewable 81 mg PO DAILY@0800 RF: 0 insulin glargine U-300 conc 300/ML insulin pen 34 unit SC DAILY RF: 0 carvedilol 3.125 MG tablet 3.125 mg PO BIDCM RF: 0 cholecalciferol (vitamin D3) 5,000 UNIT capsule 5,000 unit PO DAILY RF: 0 levothyroxine 100 MCG tablet 100 mcg PO DAILY RF: 0 insulin regular human 100 UNIT/ML solution 5 unit SQ TIDCM RF: 0 folic acid 1 MG tablet 1 mg PO DAILY RF: 0 pantoprazole 40 MG tablet 40 mg PO DAILY RF: 0 ranolazine 1,000 MG tablet extended release 12 hr 1,000 mg PO BID RF: 0 haloperidol 1 MG tablet 1 mg PO BID PRN (Reason: Nausea) RF: 0 polyethylene glycol 3350 17 GM packet 17 gm PO PRN PRN (Reason: Constipation) RF: 0 albuterol sulfate 1 PUFF inhaler 2 puff INHALATION Q4H PRN PRN (Reason: SOB/WHEEZING) RF: 0 PNV cmb#95-ferrous fumarate-FA 1 EACH tablet 1 each PO DAILY RF: 0 isosorbide mononitrate 60 MG tablet extended release 24 hr 30 mg PO DINNER RF: 0 pravastatin 80 mg tablet 80 mg PO DAILY Qty: 90 RF: 3 Discontinued losartan 25 mg tablet 25 mg PO DAILY Qty: 30 RF: 11 clopidogrel 75 MG tablet 75 mg PO DAILY RF: 0 spironolactone 25 MG tablet 25 mg PO QODAY RF: 0 furosemide 40 MG tablet 40 mg PO BID RF: 0 metolazone 2.5 MG tablet 2.5 mg PO WEFR RF: 0 potassium chloride 20 MEQ packet 20 meq PO DAILY RF: 0 No Action ascorbic acid (vitamin C) 500 mg tablet 500 mg PO DAILY RF: 0 mirabegron 25 mg tablet extended release 24 hr 25 mg PO DAILY RF: 0 Referrals: Diana Cohen MD [Primary Care Provider] - Disposition Patient Disposition: Nursing Home Facility
[2020-12-05] MEDS: Bisacodyl 5 MG Tablet PO (16:56)
[2020-12-05 17:06] LABS: Bedside Glucose 248 mg/dL (70-110)
[2020-12-05] MEDS: Acetaminophen 325 MG Tablet 650 MG PO (17:50)
[2020-12-05] MEDS: Menthol/Lanolin/Calamine/Znox 113 GM Tube 1 APPLIC TOPICAL (22:05)
[2020-12-05 22:11] LABS: Bedside Glucose 317 mg/dL (70-110)
[2020-12-06] VITALS (10 sets, daily range): BP systolic 103–118; BP diastolic 46–56; PULSE 56–70; RESP 12–17; TEMP 36.6–36.9; O2SAT 99–100
[2020-12-06] MEDS: Levothyroxine 100 MCG Tablet PO (06:42)
[2020-12-06 06:44] LABS: Absolute Lymphocyte Count 1.13 X10^3/uL (0.83-4.51); Absolute Neutrophil Count 1.1 X10^3/uL (2.0-7.7); Basophil# 0.02 X10^3/uL; Basophil% 0.8 % (0-1); Eosinophil# 0.15 X10^3/uL; Eosinophils% 5.7 % (0-5); Hematocrit 24.3 % (37-47); Hemoglobin 7.6 g/dL (12.0-15.0); Lymphocyte # 1.13 X10^3/ul (0.83-4.51); Mean Corp Hgb Conc 31.3 g/dL (32-36); Mean Corpuscular Hgb 31.3 pg (27.0-32.0); Mean Platelet Vol. 10.4 fl (6.2-12.0); Monocyte# 0.27 X10^3/uL; Monocyte% 10.3 % (0-10); NRBC Flagged by Analyzer 0 % (0-5); Neutrophil # 1.06 X10^3/uL (2.7-7.7); Neutrophil % 40.2 % (47-70); Platelet Count 129 K/mm3 (150-450); RBC Distribution Width CV 16.5 % (11.6-14.6); Red Blood Count 2.43 M/mm3 (4.2-5.4); White Blood Count 2.6 K/mm3 (4.4-11.0)
[2020-12-06 07:10] LABS: Anion Gap 6 (5-15); BUN 26 mg/dL (7-18); BUN/Creat Ratio 31.3 RATIO (10-20); Calcium,Total 8.4 mg/dL (8.5-10.1); Chloride 108 mmol/L (98-107); Creatinine, Serum 0.83 mg/dL (0.55-1.02); EST Glomerular Filtration Rate 70 mL/min (>60); Est Glom Filt Rate - Afr Amer 85 mL/min (>60); Estimated Creatinine Clearance 51.69 ml/min; Glucose 209 mg/dL (74-106); Potassium 4.1 mmol/L (3.5-5.1); Sodium Level 139 mmol/L (136-145)
[2020-12-06 08:21] LABS: Bedside Glucose 167 mg/dL (70-110)
[2020-12-06] MEDS: Acetaminophen 325 MG Tablet 650 MG PO ×2 (08:21→20:57)
[2020-12-06] MEDS: Cholecalciferol (VIT D3) 25 MCG TABLET (1,000 UNITS) 125 MCG PO (08:21)
[2020-12-06] MEDS: Carvedilol 3.125 MG TABLET PO ×2 (08:22→16:56)
[2020-12-06] MEDS: Aspirin 81 MG TAB.CHEW PO (08:22)
[2020-12-06] MEDS: Pantoprazole Sodium 40 MG Tablet PO (08:22)
[2020-12-06] MEDS: Ascorbic Acid 500 MG Tablet PO (08:22)
[2020-12-06] MEDS: Mirabegron 25 MG TAB.ER.24H PO (08:23)
[2020-12-06] MEDS: Isosorbide Mononitrate 30 MG Tablet PO (08:23)
[2020-12-06] MEDS: Pravastatin 80 MG Tablet PO (08:23)
[2020-12-06] MEDS: Potassium Chloride Oral Tablet 20 MEQ 40 MEQ PO (08:24)
[2020-12-06] MEDS: Insulin Lispro 100 UNIT/ML INSULN.PEN SC ×3 (08:24→16:56)
--- NOTE | 2020-12-06 11:14 | CASEMGMT ---
SW spoke w/Lona in TCU this morning, precert is still pending. SW spoke w/pt, let her know the precert is still pending. SW checked w/pt to make sure she got the belongings she needed, she states she did. SW explained will let her know as soon as SW has any updates in regard to the insurance precert. Pt states understanding. LIA Matthews
[2020-12-06] MEDS: Prenatal Vits Tablet 1 TABLET PO (11:36)
[2020-12-06 11:56] LABS: Bedside Glucose 258 mg/dL (70-110)
--- NOTE | 2020-12-06 14:40 | PN.HOSP_ITS ---
Documented by User: Wagner SRINIVASAN 12/06/20 14:55 Subjective Subjective: Patient is an 80-year-old female comfortably resting in bed, alert and oriented x3. Patient reports no development of symptoms, denies chest pain, shortness of breath, palpitations, fever, chills, N/V/D. Objective Data Objective Data Vital Signs: Vital Signs Temp Pulse Resp BP Pulse Ox 97.9 F 64 15 118/52 L 99 12/06/20 08:16 12/06/20 11:44 12/06/20 08:16 12/06/20 08:16 12/06/20 08:16 Oxygen Delivery Method Room Air Weight: 185 lb 6.54 oz Body Mass Index (BMI) 29.0 Finger Stick Blood Glucose 270 Intake & Output: Intake and Output for Last 24 Hours 12/04/20 12/05/20 12/06/20 23:59 23:59 23:59 Intake Total 1830 / 1830 620 / 620 650 / 650 Output Total 850 / 850 300 / 300 Balance 980 / 980 320 / 320 650 / 650 Lab / Micro Data Result Diagrams: 12/06/20 05:40 12/06/20 05:40 Labs: Laboratory Results - last 24 hr 12/05/20 12/05/20 12/06/20 16:51 22:04 05:40 WBC 2.6 L RBC 2.43 L Hgb 7.6 L Hct 24.3 L MCV 100.0 H MCH 31.3 MCHC 31.3 L RDW Std Deviation 60.0 H RDW Coeff of Conchis 16.5 H Plt Count 129 L MPV 10.4 Immature Gran % (Auto) 0.000 Neut % (Auto) 40.2 L Lymph % (Auto) 43.0 H [place] % (Auto) 10.3 H Eos % (Auto) 5.7 H Baso % (Auto) 0.8 Absolute Neuts (auto) 1.1 L Absolute Lymphs (auto) 1.13 Nucleated RBC % 0 Sodium Potassium Chloride Carbon Dioxide Anion Gap BUN Creatinine Estim Creat Clear Calc Est GFR (MDRD) Af Amer Est GFR (MDRD) Non-Af BUN/Creatinine Ratio Glucose Calcium POC Glucose 248 H 317 H 12/06/20 12/06/20 12/06/20 05:40 08:12 11:32 WBC RBC Hgb Hct MCV MCH MCHC RDW Std Deviation RDW Coeff of Conchis Plt Count MPV Immature Gran % (Auto) Neut % (Auto) Lymph % (Auto) [place] % (Auto) Eos % (Auto) Baso % (Auto) Absolute Neuts (auto) Absolute Lymphs (auto) Nucleated RBC % Sodium 139 Potassium 4.1 Chloride 108 H Carbon Dioxide 25.0 Anion Gap 6 BUN 26 H Creatinine 0.83 Estim Creat Clear Calc 51.69 Est GFR (MDRD) Af Amer 85 Est GFR (MDRD) Non-Af 70 BUN/Creatinine Ratio 31.3 H Glucose 209 H Calcium 8.4 L POC Glucose 167 H 258 H Micro: Microbiology 12/01/20 01:50 Stool Stool Occult Blood (TARUN) - Final Occult Blood Positive 11/30/20 08:15 Mucosa - Nasopharyngeal SARS-CoV-2 Antigen (Rapid) - Final Physical Exam Narrative See subjective. Const alert, oriented x3 and no apparent distress HEENT head/scalp atraumatic Head and Scalp: normocephalic Eyes EOMs intact bilaterally Neck no lymphadenopathy, supple and no JVD Resp normal respiratory effort, no retractions and clear to auscultation bilaterally Cardio regular rate, regular rhythm, no murmurs and no JVD GI normal to inspection, nondistended, normoactive bowel sounds, soft to palpation and non-tender Extremity normal to inspection and full ROM Skin no rashes or lesions noted and no wounds Neuro CN's II-XII intact bilaterally Psych affect normal Assessment & Plan Assessment/Plan (1) Elevated troponin I level: Status: Acute Code(s): R77.8 - Other specified abnormalities of plasma proteins (2) Hypokalemia: Status: Resolved Code(s): E87.6 - Hypokalemia (3) Generalized weakness: Status: Acute Code(s): R53.1 - Weakness (4) YOSELIN (acute kidney injury): Status: Acute Code(s): N17.9 - Acute kidney failure, unspecified (5) Anemia: Status: Chronic Code(s): D64.9 - Anemia, unspecified (6) Acute exacerbation of CHF (congestive heart failure): Status: Chronic Code(s): I50.9 - Heart failure, unspecified (7) Debility, unspecified: Status: Acute Code(s): R53.81 - Other malaise (8) Anemia: Status: Chronic Code(s): D64.9 - Anemia, unspecified Qualifiers: Anemia type: unspecified type Qualified Code(s): D64.9 - Anemia, unspecified Plan: No change from yesterday. Currently awaiting placement to group home facility. Will discharge pending approval. 1) elevated troponin Cardiology following. Plan; continue carvedilol and aspirin. 2) Hypokalemia Resolved. Continue to monitor BMP. 3) generalized weakness Plan; currently waiting for placement to SNF. 4) YOSELIN Resolved. Plan; continue to hold metolazone furosemide and losartan. 5) Anemia Hemoglobin currently stable. Plan; continue to monitor CBC. 6) encephalopathy Chronic. Plan; follow-up with geriatrics for dementia evaluation, awaiting for placement to SNF. 7) Debility Waiting for placement to SNF. DVT prophylaxis -SCDs Patient seen by Wagner Rebolledo PA-C, under the supervision of Dr. Kern. Documented by User: Dr. Gage Kern MD 12/06/20 15:03 Objective Data Lab / Micro Data Result Diagrams: 12/06/20 05:40 12/06/20 05:40 Assessment & Plan Assessment/Plan (1) Debility, unspecified: Status: Acute Code(s): R53.81 - Other malaise Plan: This patient was seen in conjunction with Wagner Rebolledo PA-C. I have independently interviewed and examined the patient and reviewed pertinent hi storical, laboratory, and other data. Please refer to Wagner Rebolledo PA-C's note for details of this patient's presentation, findings, and recommendations. I have reviewed Wagner Rebolledo PA-C's note and concur with documented findings. In brief, patient is an admitted with generalized weakness acute kidney injury and elevated troponin Physical Examination: GENERAL: cooperative HEENT: Atraumatic; EYES; Anicteric, Normal Conjunctiva NECK; supple, normal thyroid, MUSCULOSKELETAL: no muscle waisting NEURO: Awake; no lateralizing signs. SKIN: No Rash PSYCH; Flat affect Assessment: 1. Elevated troponin 2. Physical deconditioning 3. Acute kidney injury 4. Anemia secondary to anemia of chronic disorder 5. Acute metabolic encephalopathy 6. DVT prophylaxis Recommendations: 1. I have discussed the results of my overview and impressions with the patient 2. Options for management were reviewed
[2020-12-06] MEDS: Menthol/Lanolin/Calamine/Znox 113 GM Tube 1 APPLIC TOPICAL ×2 (16:56→21:00)
[2020-12-06 17:21] LABS: Bedside Glucose 181 mg/dL (70-110)
--- NOTE | 2020-12-06 20:55 | NURSING ---
Glucometer not scanning pt's wristband. Completed blood sugar check with override. Result was 173
[2020-12-06] MEDS: Bisacodyl 5 MG Tablet PO (21:06)
[2020-12-06 21:16] LABS: Bedside Glucose 173 mg/dL (70-110)
[2020-12-07 02:37] VITALS: BP 114/49; PULSE 64; RESP 16; TEMP 36.7; O2SAT 99
[2020-12-07 03:00] VITALS: PULSE 59
[2020-12-07] MEDS: Menthol/Lanolin/Calamine/Znox 113 GM Tube 1 APPLIC TOPICAL ×2 (06:26→14:10)
[2020-12-07] MEDS: Levothyroxine 100 MCG Tablet PO (06:26)
[2020-12-07 06:48] VITALS: PULSE 62
[2020-12-07 07:25] LABS: Bedside Glucose 110 mg/dL (70-110)
[2020-12-07 07:30] LABS: Absolute Lymphocyte Count 1.12 X10^3/uL (0.83-4.51); Basophil# 0.01 X10^3/uL; Basophil% 0.4 % (0-1); Eosinophil# 0.14 X10^3/uL; Eosinophils% 5.8 % (0-5); Hematocrit 22.4 % (37-47); Lymphocyte # 1.12 X10^3/ul (0.83-4.51); Lymphocyte % 46.5 % (19-41); Mean Corp Hgb Conc 31.3 g/dL (32-36); Mean Corpuscular Hgb 31.3 pg (27.0-32.0); Mean Platelet Vol. 10.2 fl (6.2-12.0); Monocyte# 0.18 X10^3/uL; Monocyte% 7.5 % (0-10); NRBC Flagged by Analyzer 0 % (0-5); Neutrophil # 0.95 X10^3/uL (2.7-7.7); Neutrophil % 39.4 % (47-70); POSITIVE DIFFERENTIAL YES; Platelet Count 122 K/mm3 (150-450); RBC Distribution Width CV 16.3 % (11.6-14.6); RBC Distribution Width SD 59.5 fl (35.1-43.9); Red Blood Count 2.24 M/mm3 (4.2-5.4); White Blood Count 2.4 K/mm3 (4.4-11.0)
[2020-12-07 07:33] LABS: Differential Indicated SCAN CRITERIA MET
--- NOTE | 2020-12-07 07:37 | CASEMGMT ---
Addendum entered by Karina Simmons 12/07/20 10:27: SW left a message for Helena with [facility] letting her know patient's discharge plan. Karina SERRATO Addendum entered by Karina Simmons 12/07/20 08:50: SW notified patient that she was approved for TCU and will likely go today. Karina SERRATO Original Note: SUAD received a voice mail this am from Lona. Patient was approved to go to TCU. Plan: [facility] TCU. Patient approved by insurance. Karina SERRATO
[2020-12-07 08:01] LABS: Anisocytosis 1+; Hypochromasia 1+; Macrocytosis 1+; Platelet Estimate SLT DEC (ADEQ)
[2020-12-07 08:03] LABS: Anion Gap 6 (5-15); BUN 25 mg/dL (7-18); BUN/Creat Ratio 34.7 RATIO (10-20); Calcium,Total 8.4 mg/dL (8.5-10.1); Chloride 111 mmol/L (98-107); Creatinine, Serum 0.72 mg/dL (0.55-1.02); EST Glomerular Filtration Rate 83 mL/min (>60); Est Glom Filt Rate - Afr Amer 100 mL/min (>60); Estimated Creatinine Clearance 42.91 ml/min; Glucose 113 mg/dL (74-106); Magnesium 2.1 mg/dL (1.6-2.6); Potassium 4.2 mmol/L (3.5-5.1); Sodium Level 142 mmol/L (136-145)
[2020-12-07 09:18] VITALS: BP 109/51; PULSE 64; RESP 18; TEMP 36.4; O2SAT 94
[2020-12-07] MEDS: Cholecalciferol (VIT D3) 25 MCG TABLET (1,000 UNITS) 125 MCG PO (09:21)
[2020-12-07] MEDS: Pantoprazole Sodium 40 MG Tablet PO (09:22)
[2020-12-07] MEDS: Mirabegron 25 MG TAB.ER.24H PO (09:22)
[2020-12-07] MEDS: Pravastatin 80 MG Tablet PO (09:22)
[2020-12-07] MEDS: Ascorbic Acid 500 MG Tablet PO (09:22)
[2020-12-07] MEDS: Carvedilol 3.125 MG TABLET PO (09:23)
[2020-12-07] MEDS: Aspirin 81 MG TAB.CHEW PO (09:23)
[2020-12-07] MEDS: Potassium Chloride Oral Tablet 20 MEQ 40 MEQ PO (09:23)
[2020-12-07] MEDS: Isosorbide Mononitrate 30 MG Tablet PO (09:24)
[2020-12-07] MEDS: Insulin Lispro 100 UNIT/ML INSULN.PEN SC ×2 (09:26→11:10)
--- NOTE | 2020-12-07 10:46 | PCM.TXEXTCAR ---
Diet 11/30/20 18:38 Diet: Cardiac - Heart Healthy Dietary Modifications:: Consistent Carbohydrate Type of Dietary Supplement:: Ensure Enlive Is pt able to select menu?: No Diet Comments: 120ml deena ensure enlive w/ dinner Routine Orders/Code Status Routine Lab Work: CBC and BMP Code Status: Full Code Wound(s) left buttock/cleft: Wound Type: Pressure Injury Therapies Weight Bearing: Full weight bearing Physical Therapy: Eval and Treat Occupational Therapy: Eval and Treat Problem/Diagnosis (1) Debility, unspecified: Status: Acute Allergies/Procedures Done in Hospital Allergies aripiprazole [From Abilify] Allergy (Intermediate, Verified 11/21/20 03:29) it over powered me lisinopril Allergy (Intermediate, Verified 11/21/20 03:29) Unknown atorvastatin calcium [From Lipitor] Adverse Reaction (Verified 11/21/20 03:29) Unknown rosiglitazone maleate [From Avandia] Adverse Reaction (Verified 11/21/20 03:29) Other Procedures: 2-D Echocardiogram Type of Care/Length of Stay Estimated LOS: Convalescent Care Less Than 30 days Type of Care Needed: Skilled Rehab Potential: Fair Prognosis: Fair Additional Orders/Day of Discharge Additional Orders: Active with [facility] Day of Discharge: 12/06/20 Dietary and Speech Recommendations Dietitian Recommendations/Changes: Will continue carb-controlled/cardiac (no caloric restriction) diet as ordered. Will continue to provide 120ml deena ensure enlive w/ dinner for tolerance. Follow Up Care Please follow up with your Primary Care Physician in: 2 weeks Please Follow Up With: Cardiology When: 4-6 weeks Discharge Plan Admission Admit Date/Time: 11/30/20 15:50 Attending Provider: Gage Kern Primary Care Provider: Diana Cohen Consulting Providers: Meet Kumar Discharge Orders/Prescriptions Prescriptions: New acetaminophen [Tylenol] 325 mg Tablet 650 mg PO Q6H PRN PRN (Reason: Pain Score 1-10/Temp > 100.7 F) Qty: 1 RF: 0 potassium chloride [Klor-Con M20] 20 mEq Tablet,Er Particles/Crystals 40 meq PO DAILY@0800 Qty: 0 RF: 0 bisacodyl 5 mg Tablet,Delayed Release (Dr/Ec) 5 mg PO DAILY PRN (Reason: constipation) Qty: 1 RF: 0 Calmoseptine 0.44-20.6 % Ointment 1 applic topical TID Qty: 71 RF: 0 Continued nitroglycerin 0.4 MG tablet, sublingual 0.4 mg SL PRN PRN (Reason: CHEST PAIN) RF: 0 aspirin 81 MG tablet,chewable 81 mg PO DAILY@0800 RF: 0 insulin glargine U-300 conc 300/ML insulin pen 34 unit SC DAILY RF: 0 carvedilol 3.125 MG tablet 3.125 mg PO BIDCM RF: 0 cholecalciferol (vitamin D3) 5,000 UNIT capsule 5,000 unit PO DAILY RF: 0 levothyroxine 100 MCG tablet 100 mcg PO DAILY RF: 0 insulin regular human 100 UNIT/ML solution 5 unit SQ TIDCM RF: 0 folic acid 1 MG tablet 1 mg PO DAILY RF: 0 pantoprazole 40 MG tablet 40 mg PO DAILY RF: 0 ranolazine 1,000 MG tablet extended release 12 hr 1,000 mg PO BID RF: 0 haloperidol 1 MG tablet 1 mg PO BID PRN (Reason: Nausea) RF: 0 polyethylene glycol 3350 17 GM packet 17 gm PO PRN PRN (Reason: Constipation) RF: 0 albuterol sulfate 1 PUFF inhaler 2 puff INHALATION Q4H PRN PRN (Reason: SOB/WHEEZING) RF: 0 PNV cmb#95-ferrous fumarate-FA 1 EACH tablet 1 each PO DAILY RF: 0 isosorbide mononitrate 60 MG tablet extended release 24 hr 30 mg PO DINNER RF: 0 pravastatin 80 mg tablet 80 mg PO DAILY Qty: 90 RF: 3 Discontinued losartan 25 mg tablet 25 mg PO DAILY Qty: 30 RF: 11 clopidogrel 75 MG tablet 75 mg PO DAILY RF: 0 spironolactone 25 MG tablet 25 mg PO QODAY RF: 0 furosemide 40 MG tablet 40 mg PO BID RF: 0 metolazone 2.5 MG tablet 2.5 mg PO WEFR RF: 0 potassium chloride 20 MEQ packet 20 meq PO DAILY RF: 0 No Action ascorbic acid (vitamin C) 500 mg tablet 500 mg PO DAILY RF: 0 mirabegron 25 mg tablet extended release 24 hr 25 mg PO DAILY RF: 0 Referrals: Diana Cohen MD [Primary Care Provider] - Disposition Disposition (needs filled in before D/C Order can be placed): Care Home Facility
--- NOTE | 2020-12-07 10:49 | DS.PCM_ITS ---
Documented by User: Wagner SRINIVASAN 12/07/20 11:13 Providers Date of Admission: 11/30/20 Primary Care Physician: Dr. Diana Cohen MD Consultations 11/30/20 10:58 Consult: Cardiology Routine Consulting Provider: Meet Kumar Reason for Consult: elevated troponin EMERGENT Consult: No MD Notified: Yes Date Notified:: 11/30/20 Time Notified: 11:01 Method of Notification: Text Reason For Visit: ENCEPHALOPATHY, ELEVATED TROPONIN Diagnosis Discharge Diagnosis (1) Debility, unspecified: Status: Acute Code(s): R53.81 - Other malaise Medications at Discharge Home Medications aspirin 81 mg PO DAILY@0800 06/30/17 nitroglycerin 0.4 mg SL PRN PRN 06/30/17 ascorbic acid (vitamin C) 500 mg tablet 500 mg PO DAILY 09/13/18 insulin glargine U-300 conc 34 unit SC DAILY 04/23/19 carvedilol 3.125 mg PO BIDCM 06/24/19 cholecalciferol (vitamin D3) 5,000 unit PO DAILY 06/24/19 levothyroxine 100 mcg PO DAILY 07/24/19 folic acid 1 mg PO DAILY 02/10/20 insulin regular human 5 unit SQ TIDCM 02/10/20 mirabegron 25 mg tablet,extended release 24 hr 25 mg PO DAILY 06/17/20 pravastatin 80 mg tablet 80 mg PO DAILY #90 tab 08/13/20 pantoprazole 40 mg PO DAILY 10/20/20 ranolazine 1,000 mg PO BID 10/20/20 haloperidol 1 mg PO BID PRN 11/13/20 PNV cmb#95-ferrous fumarate-FA 1 each PO DAILY 11/14/20 albuterol sulfate 2 puff INHALATION Q4H PRN PRN 11/14/20 polyethylene glycol 3350 17 gm PO PRN PRN 11/14/20 isosorbide mononitrate 30 mg PO DINNER 11/21/20 acetaminophen [Tylenol] 650 mg PO Q6H PRN PRN #1 tab 12/05/20 bisacodyl 5 mg PO DAILY PRN #1 tab 12/05/20 menthol-zinc oxide [Calmoseptine] 1 applic TOPICAL TID #71 g 12/05/20 potassium chloride [Klor-Con M20] 40 meq PO DAILY@0800 #0 tab 12/05/20 Hospital Course Summary of Care Provided Minutes Spent on Discharge: 35 Hospital Course: Patient is an 80-year-old female who was admitted to the hospital on 11/30/2020 with a chief complaint of elevated troponin and confusion. Echocardiogram demonstrated an estimated EF of 55%, RVSP of 33mmHg, Diastolic function indeterminate. Cardiovascular followed patient; believes she was not a candidate for invasive evaluation due to complex cardiovascular history and chronic anemia and should be continued on medical management. Patient will be discharged to TCU today for extended care. 1) elevated troponin Cardiology following. Echocardiogram as above. Plan; continue carvedilol and aspirin, follow-up with cardiology within the next 2 weeks. 2) Hypokalemia Resolved. Continue to monitor BMP. 3) generalized weakness Plan; currently waiting for placement to SNF. 4) YOSELIN Resolved. Plan; continue to hold metolazone furosemide and losartan. 5) Anemia Chronically anemic, hemoglobin stable. Follows up with Dr. Maguire as an outpatient. Plan; continue to follow with oncology outpatient. 6) encephalopathy Chronic. Plan; follow-up with geriatrics for dementia evaluation, awaiting for placement to SNF. 7) Debility Waiting for placement to SNF. DVT prophylaxis -SCDs Patient seen by Wagner Rebolledo PA-C, under the supervision of Dr. Kern. Physical Exam Narrative Patient is an 80-year-old female comfortable resting in a chair, alert and oriented x3. Patient denies any development of symptoms of the past 24 hours to include chest pain, shortness of breath, palpitations, fever, chills, N/V/D. Const alert, oriented x3 and no apparent distress HEENT normocephalic, head/scalp atraumatic and hearing grossly normal bilaterally Eyes EOMs intact bilaterally and no scleral icterus Neck full ROM, nuchal rigidity and no lymphadenopathy Lymph Lymphatic: no lymphadenopathy noted Chest inspection of chest normal and palpation of chest normal Resp normal respiratory effort, normal air movement and no use of accessory muscles Cardio regular rate, regular rhythm, no murmurs and no JVD GI normal to inspection, nondistended, normoactive bowel sounds, soft to palpation and non-tender no CVA tenderness Back/Spine no CVA tenderness, normal ROM and normal to inspection Extremity normal to inspection, no calf tenderness and no pedal edema Skin no rashes or lesions noted, no wounds and skin turgor normal Neuro CN's II-XII intact bilaterally Psych mental status grossly normal and thought process normal ABG / Lab / Microbiology Data Result Diagrams: 12/07/20 07:05 12/07/20 07:05 Laboratory: Laboratory Results - last 24 hr 12/06/20 12/06/20 12/06/20 11:32 16:52 20:53 WBC RBC Hgb Hct MCV MCH MCHC RDW Std Deviation RDW Coeff of Conchis Plt Count MPV Immature Gran % (Auto) Neut % (Auto) Lymph % (Auto) Prentiss % (Auto) Eos % (Auto) Baso % (Auto) Absolute Neuts (auto) Absolute Lymphs (auto) Nucleated RBC % Platelet Estimate Hypochromasia Anisocytosis Macrocytosis Sodium Potassium Chloride Carbon Dioxide Anion Gap BUN Creatinine Estim Creat Clear Calc Est GFR (MDRD) Af Amer Est GFR (MDRD) Non-Af BUN/Creatinine Ratio Glucose Calcium Magnesium POC Glucose 258 H 181 H 173 H 12/07/20 12/07/20 12/07/20 07:05 07:05 07:22 WBC 2.4 L RBC 2.24 L Hgb 7.0 L Hct 22.4 L MCV 100.0 H MCH 31.3 MCHC 31.3 L RDW Std Deviation 59.5 H RDW Coeff of Conchis 16.3 H Plt Count 122 L MPV 10.2 Immature Gran % (Auto) 0.400 Neut % (Auto) 39.4 L Lymph % (Auto) 46.5 H Prentiss % (Auto) 7.5 Eos % (Auto) 5.8 H Baso % (Auto) 0.4 Absolute Neuts (auto) 1.0 L Absolute Lymphs (auto) 1.12 Nucleated RBC % 0 Platelet Estimate SLT DEC Hypochromasia 1+ Anisocytosis 1+ Macrocytosis 1+ Sodium 142 Potassium 4.2 Chloride 111 H Carbon Dioxide 25.0 Anion Gap 6 BUN 25 H Creatinine 0.72 Estim Creat Clear Calc 42.91 Est GFR (MDRD) Af Amer 100 Est GFR (MDRD) Non-Af 83 BUN/Creatinine Ratio 34.7 H Glucose 113 H Calcium 8.4 L Magnesium 2.1 POC Glucose 110 Microbiology: Microbiology 12/01/20 01:50 Stool Stool Occult Blood (TARUN) - Final Occult Blood Positive 11/30/20 08:15 Mucosa - Nasopharyngeal SARS-CoV-2 Antigen (Rapid) - Final D/C Instructions Please follow up with your Primary Care Physician in: 2 weeks Please Follow Up With: Cardiology Meaningful Use Info Meaningful Use Diagnoses (Choose all that apply): None applicable Discharge Plan Admission Admit Date/Time: 11/30/20 15:50 Primary Reason for Your Visit: Elevated troponin Attending Provider: Gage Kern Primary Care Provider: Diana Cohen Consulting Providers: Meet Kumar Discharge Orders/Prescriptions Prescriptions: New acetaminophen [Tylenol] 325 mg Tablet 650 mg PO Q6H PRN PRN (Reason: Pain Score 1-10/Temp > 100.7 F) Qty: 1 RF: 0 potassium chloride [Klor-Con M20] 20 mEq Tablet,Er Particles/Crystals 40 meq PO DAILY@0800 Qty: 0 RF: 0 bisacodyl 5 mg Tablet,Delayed Release (Dr/Ec) 5 mg PO DAILY PRN (Reason: constipation) Qty: 1 RF: 0 Calmoseptine 0.44-20.6 % Ointment 1 applic topical TID Qty: 71 RF: 0 Continued nitroglycerin 0.4 MG tablet, sublingual 0.4 mg SL PRN PRN (Reason: CHEST PAIN) RF: 0 aspirin 81 MG tablet,chewable 81 mg PO DAILY@0800 RF: 0 insulin glargine U-300 conc 300/ML insulin pen 34 unit SC DAILY RF: 0 carvedilol 3.125 MG tablet 3.125 mg PO BIDCM RF: 0 cholecalciferol (vitamin D3) 5,000 UNIT capsule 5,000 unit PO DAILY RF: 0 levothyroxine 100 MCG tablet 100 mcg PO DAILY RF: 0 insulin regular human 100 UNIT/ML solution 5 unit SQ TIDCM RF: 0 folic acid 1 MG tablet 1 mg PO DAILY RF: 0 pantoprazole 40 MG tablet 40 mg PO DAILY RF: 0 ranolazine 1,000 MG tablet extended release 12 hr 1,000 mg PO BID RF: 0 haloperidol 1 MG tablet 1 mg PO BID PRN (Reason: Nausea) RF: 0 polyethylene glycol 3350 17 GM packet 17 gm PO PRN PRN (Reason: Constipation) RF: 0 albuterol sulfate 1 PUFF inhaler 2 puff INHALATION Q4H PRN PRN (Reason: SOB/WHEEZING) RF: 0 PNV cmb#95-ferrous fumarate-FA 1 EACH tablet 1 each PO DAILY RF: 0 isosorbide mononitrate 60 MG tablet extended release 24 hr 30 mg PO DINNER RF: 0 pravastatin 80 mg tablet 80 mg PO DAILY Qty: 90 RF: 3 Discontinued losartan 25 mg tablet 25 mg PO DAILY Qty: 30 RF: 11 clopidogrel 75 MG tablet 75 mg PO DAILY RF: 0 spironolactone 25 MG tablet 25 mg PO QODAY RF: 0 furosemide 40 MG tablet 40 mg PO BID RF: 0 metolazone 2.5 MG tablet 2.5 mg PO WEFR RF: 0 potassium chloride 20 MEQ packet 20 meq PO DAILY RF: 0 No Action ascorbic acid (vitamin C) 500 mg tablet 500 mg PO DAILY RF: 0 mirabegron 25 mg tablet extended release 24 hr 25 mg PO DAILY RF: 0 Referrals: Diana Cohen MD [Primary Care Provider] - Disposition Disposition (needs filled in before D/C Order can be placed): [facility] Facility Documented by User: Dr. Gage Kern MD 12/07/20 11:52 Providers Date of Admission: 11/30/20 Reason For Visit: ENCEPHALOPATHY, ELEVATED TROPONIN Medications at Discharge Home Medications aspirin 81 mg PO DAILY@0800 06/30/17 nitroglycerin 0.4 mg SL PRN PRN 06/30/17 ascorbic acid (vitamin C) 500 mg tablet 500 mg PO DAILY 09/13/18 insulin glargine U-300 conc 34 unit SC DAILY 04/23/19 carvedilol 3.125 mg PO BIDCM 06/24/19 cholecalciferol (vitamin D3) 5,000 unit PO DAILY 06/24/19 levothyroxine 100 mcg PO DAILY 07/24/19 folic acid 1 mg PO DAILY 02/10/20 insulin regular human 5 unit SQ TIDCM 02/10/20 mirabegron 25 mg tablet,extended release 24 hr 25 mg PO DAILY 06/17/20 pravastatin 80 mg tablet 80 mg PO DAILY #90 tab 08/13/20 pantoprazole 40 mg PO DAILY 10/20/20 ranolazine 1,000 mg PO BID 10/20/20 haloperidol 1 mg PO BID PRN 11/13/20 PNV cmb#95-ferrous fumarate-FA 1 each PO DAILY 11/14/20 albuterol sulfate 2 puff INHALATION Q4H PRN PRN 11/14/20 polyethylene glycol 3350 17 gm PO PRN PRN 11/14/20 isosorbide mononitrate 30 mg PO DINNER 11/21/20 acetaminophen [Tylenol] 650 mg PO Q6H PRN PRN #1 tab 12/05/20 bisacodyl 5 mg PO DAILY PRN #1 tab 12/05/20 menthol-zinc oxide [Calmoseptine] 1 applic TOPICAL TID #71 g 12/05/20 potassium chloride [Klor-Con M20] 40 meq PO DAILY@0800 #0 tab 12/05/20 Hospital Course Summary of Care Provided Minutes Spent on Discharge: 45 Hospital Course: This patient was seen in conjunction with Wagner Rebolledo PA-C. I have independently interviewed and examined the patient and reviewed pertinent historical, laboratory, and other data. Please refer to Wagner Rebolledo PA-C's note for details of this patient's presentation, findings, and recommendations. I have reviewed Wagner Rebolledo PA-C's note and concur with documented findings. In brief, patient admitted with generalized weakness acute kidney injury and elevated troponin Assessment: 1. Elevated troponin 2. Physical deconditioning 3. Acute kidney injury 4. Anemia secondary to anemia of chronic disorder 5. Acute metabolic encephalopathy 6. DVT prophylaxis Hospital course: As documented above ABG / Lab / Microbiology Data Result Diagrams: 12/07/20 07:05 12/07/20 07:05 Discharge Plan Admission Admit Date/Time: 11/30/20 15:50 Primary Reason for Your Visit: Elevated troponin Attending Provider: Gage Kern Primary Care Provider: Diana Cohen Consulting Providers: Meet Kumar Discharge Orders/Prescriptions Prescriptions: New acetaminophen [Tylenol] 325 mg Tablet 650 mg PO Q6H PRN PRN (Reason: Pain Score 1-10/Temp > 100.7 F) Qty: 1 RF: 0 potassium chloride [Klor-Con M20] 20 mEq Tablet,Er Particles/Crystals 40 meq PO DAILY@0800 Qty: 0 RF: 0 bisacodyl 5 mg Tablet,Delayed Release (Dr/Ec) 5 mg PO DAILY PRN (Reason: constipation) Qty: 1 RF: 0 Calmoseptine 0.44-20.6 % Ointment 1 applic topical TID Qty: 71 RF: 0 Continued nitroglycerin 0.4 MG tablet, sublingual 0.4 mg SL PRN PRN (Reason: CHEST PAIN) RF: 0 aspirin 81 MG tablet,chewable 81 mg PO DAILY@0800 RF: 0 insulin glargine U-300 conc 300/ML insulin pen 34 unit SC DAILY RF: 0 carvedilol 3.125 MG tablet 3.125 mg PO BIDCM RF: 0 cholecalciferol (vitamin D3) 5,000 UNIT capsule 5,000 unit PO DAILY RF: 0 levothyroxine 100 MCG tablet 100 mcg PO DAILY RF: 0 insulin regular human 100 UNIT/ML solution 5 unit SQ TIDCM RF: 0 folic acid 1 MG tablet 1 mg PO DAILY RF: 0 pantoprazole 40 MG tablet 40 mg PO DAILY RF: 0 ranolazine 1,000 MG tablet extended release 12 hr 1,000 mg PO BID RF: 0 haloperidol 1 MG tablet 1 mg PO BID PRN (Reason: Nausea) RF: 0 polyethylene glycol 3350 17 GM packet 17 gm PO PRN PRN (Reason: Constipation) RF: 0 albuterol sulfate 1 PUFF inhaler 2 puff INHALATION Q4H PRN PRN (Reason: SOB/WHEEZING) RF: 0 PNV cmb#95-ferrous fumarate-FA 1 EACH tablet 1 each PO DAILY RF: 0 isosorbide mononitrate 60 MG tablet extended release 24 hr 30 mg PO DINNER RF: 0 pravastatin 80 mg tablet 80 mg PO DAILY Qty: 90 RF: 3 Discontinued losartan 25 mg tablet 25 mg PO DAILY Qty: 30 RF: 11 clopidogrel 75 MG tablet 75 mg PO DAILY RF: 0 spironolactone 25 MG tablet 25 mg PO QODAY RF: 0 furosemide 40 MG tablet 40 mg PO BID RF: 0 metolazone 2.5 MG tablet 2.5 mg PO WEFR RF: 0 potassium chloride 20 MEQ packet 20 meq PO DAILY RF: 0 No Action ascorbic acid (vitamin C) 500 mg tablet 500 mg PO DAILY RF: 0 mirabegron 25 mg tablet extended release 24 hr 25 mg PO DAILY RF: 0 Referrals: Diana Cohen MD [Primary Care Provider] - Disposition Disposition (needs filled in before D/C Order can be placed): [facility] Facility Visit Charges Inpatient E&M: [id number] Disch Hosp
[2020-12-07] MEDS: Prenatal Vits Tablet 1 TABLET PO (11:10)
--- NOTE | 2020-12-07 11:19 | PHA.DC.MR ---
Pharmacy Service has performed discharge medication reconciliation for this patient. The patient's discharge medication list was reviewed for discrepancies and discrepancies were resolved. Home Medications aspirin 81 mg PO DAILY@0800 06/30/17 nitroglycerin 0.4 mg SL PRN PRN 06/30/17 ascorbic acid (vitamin C) 500 mg tablet 500 mg PO DAILY 09/13/18 insulin glargine U-300 conc 34 unit SC DAILY 04/23/19 carvedilol 3.125 mg PO BIDCM 06/24/19 cholecalciferol (vitamin D3) 5,000 unit PO DAILY 06/24/19 levothyroxine 100 mcg PO DAILY 07/24/19 folic acid 1 mg PO DAILY 02/10/20 insulin regular human 5 unit SQ TIDCM 02/10/20 mirabegron 25 mg tablet,extended release 24 hr 25 mg PO DAILY 06/17/20 pravastatin 80 mg tablet 80 mg PO DAILY #90 tab 08/13/20 pantoprazole 40 mg PO DAILY 10/20/20 ranolazine 1,000 mg PO BID 10/20/20 haloperidol 1 mg PO BID PRN 11/13/20 PNV cmb#95-ferrous fumarate-FA 1 each PO DAILY 11/14/20 albuterol sulfate 2 puff INHALATION Q4H PRN PRN 11/14/20 polyethylene glycol 3350 17 gm PO PRN PRN 11/14/20 isosorbide mononitrate 30 mg PO DINNER 11/21/20 acetaminophen [Tylenol] 650 mg PO Q6H PRN PRN #1 tab 12/05/20 bisacodyl 5 mg PO DAILY PRN #1 tab 12/05/20 menthol-zinc oxide [Calmoseptine] 1 applic TOPICAL TID #71 g 12/05/20 potassium chloride [Klor-Con M20] 40 meq PO DAILY@0800 #0 tab 12/05/20
[2020-12-07 11:20] LABS: Bedside Glucose 274 mg/dL (70-110)
--- NOTE | 2020-12-07 11:45 | NURSING ---
report called to maico taveras rn
--- NOTE | 2020-12-07 12:27 | NURSING ---
Attempted IV restart x2 without success. Tolerated well. Primary RN and fnps made aware.
--- NOTE | 2020-12-07 14:03 | NURSING ---
Per the request of Wagner Rebolledo I added a written TORB for repeat h/h in 1 week to TCU DC packet. I called and notified BELINDA Mcleod of the change. She voiced understanding.
[2020-12-07] MEDS: Iron Polysaccharide Complex 150 MG CAPSULE PO (14:09)
== END 2020-12-07 14:41 | disposition skilled nursing facility (03) | DRG 948 ==
LOC: ED 10:26 → PCU 17:34
PROVIDERS: Nurse Practitioner Family; Emergency Provider Emergency Medicine; PCP Internal Medicine; Visit Provider Internal Medicine
DX: R74.8 Abnormal levels of other serum enzymes (principal); D61.818 Other pancytopenia; N17.9 Acute kidney failure, unspecified; I50.32 Chronic diastolic (congestive) heart failure; I11.0 Hypertensive heart disease with heart failure; D63.8 Anemia in other chronic diseases classified elsewhere; I25.119 Atherosclerotic heart disease of native coronary artery with unspecified angina pectoris; E11.9 Type 2 diabetes mellitus without complications; F20.9 Schizophrenia, unspecified; Z79.4 Long term (current) use of insulin; I08.3 Combined rheumatic disorders of mitral, aortic and tricuspid valves; I25.2 Old myocardial infarction; E87.6 Hypokalemia; E78.5 Hyperlipidemia, unspecified; E03.9 Hypothyroidism, unspecified; R53.81 Other malaise; R53.1 Weakness; E66.9 Obesity, unspecified; Z68.29 Body mass index [BMI] 29.0-29.9, adult; Z95.5 Presence of coronary angioplasty implant and graft; Z79.82 Long term (current) use of aspirin; Z79.899 Other long term (current) drug therapy; Z79.02 Long term (current) use of antithrombotics/antiplatelets; Z79.890 Hormone replacement therapy
CPT/HCPCS: 36415; 70450; 80048; 81001; 82274; 82728; 82962; 83550; 83735; 84484; 85014; 85018; 85025; 86850; 86900; 86901; 86920; 86922; 87426; 93005; 93306; 96360; 97110; 97162; 97166; 97530; 97535; 99281; 99285; J7040; P9016; A4216

== ENCOUNTER 2020-12-07 14:45 | Inpatient (IN) | payer MEDICARE, MEDICAID, SELFPAY ==
[2020-11-30 11:05] VITALS: BMI 29.0
[2020-12-07 15:03] VITALS: BP 127/58; PULSE 67; RESP 18; TEMP 36.5; O2SAT 100; BMI 30.9
[2020-12-07 16:35] LABS: Bedside Glucose 184 mg/dL (70-110)
[2020-12-07] MEDS: Insulin Lispro 100 UNIT/ML INSULN.PEN SC (18:04)
[2020-12-07] MEDS: Ranolazine 500 MG Tablet 1000 MG PO (18:06)
[2020-12-07] MEDS: Carvedilol 3.125 MG TABLET PO (18:07)
[2020-12-07] MEDS: Isosorbide Mononitrate 30 MG Tablet PO (18:15)
--- NOTE | 2020-12-07 20:47 | PCM.HP.STD ---
HPI - General General Date of Admission: 12/07/20 HPI Narrative 11/30/2020 DANI JOHNSON, is a 80 Female with below past medical history presented to [facility] Emergency Department with change in mental status. 11/30/2020 EKG sinus versus ectopic atrial rhythm, ST&T wave abnormality, consider inferior ischemia. ST&T wave abnormality, consider anterolateral ischemia. Alf resident, recent treatment of urinary tract infection. CT head negative, UA negative, Troponin elevated at 2.4. 11/30/2020 Admit to Hospital. Hemoglobin 6.3, Transfuse 1 unit PRBC. Consult cardiology for NSTEMI. 11/30/2020 Cardiology recommended conservative management. 12/01/2020 Troponin elevated. PT/OT for debility. Hemoglobin 6.9, Transfuse another unit PRBC. 12/02/2020 Echo segmental dysfunction with preserved EF. EF 55%. RVSP 30mm HG. 12/02/2020 Cardiology troponin decreased conservative medical management. Recommend tertiary care center if invasive treatment desired. 12/02/2020 Transfuse 3rd unit PRBC. Encephalopathy resolved. 12/03/2020 Troponin still elevated. PT/OT for [facility] facility. acute kidney injury resolved, hold metolazone, furosemide, losartan. 12/04/2020 Patient feeling well. 12/07/2020 Admit to TCU with debility, here for rehabilitation, strengthening, prior to discharge to care home. [facility] Medical History (Updated 12/07/20 @ 20:[address] Prasad Tee MD) Acute respiratory failure with hypoxia Acute respiratory failure with hypoxia and hypercapnia Anemia Atherosclerotic heart disease [place] coronary artery w/angina pectoris Chronic diastolic (congestive) heart failure Diabetes mellitus, type II Essential hypertension GI bleed (05/07/20) History of non-ST elevation myocardial infarction (NSTEMI) (03/26/20) Hyperlipidemia Hypothyroidism Lactic acidosis 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) Mitral valve insufficiency Non-rheumatic aortic stenosis Non-rheumatic mitral regurgitation Nonrheumatic tricuspid valve regurgitation NSTEMI (non-ST elevated myocardial infarction) Obesity (BMI 30.0-34.9) Pancytopenia Postoperative haemorrhage Schizophrenia Thrombocytopenia Tricuspid valve insufficiency Home Medications aspirin 81 mg PO DAILY@0800 06/30/17 [History Last Taken 11/29/20] nitroglycerin 0.4 mg SL PRN PRN 06/30/17 [History Last Taken 09/13/20 15:00] ascorbic acid (vitamin C) 500 mg tablet 500 mg PO DAILY 09/13/18 [History Last Taken 11/29/20] insulin glargine U-300 conc 34 unit SC DAILY 04/23/19 [History Last Taken 11/30/20] carvedilol 3.125 mg PO BIDCM 06/24/19 [History Last Taken 11/30/20] cholecalciferol (vitamin D3) 5,000 unit PO DAILY 06/24/19 [History Last Taken 11/29/20] levothyroxine 100 mcg PO DAILY 07/24/19 [History Last Taken 11/30/20] folic acid 1 mg PO DAILY 02/10/20 [History Last Taken 11/30/20] insulin regular human 5 unit SQ TIDCM 02/10/20 [History Last Taken 11/30/20] mirabegron 25 mg tablet,extended release 24 hr 25 mg PO DAILY 06/17/20 [History Last Taken 11/30/20] pravastatin 80 mg tablet 80 mg PO DAILY #90 tab 08/13/20 [Rx Last Taken 11/29/20] pantoprazole 40 mg PO DAILY 10/20/20 [History Last Taken 11/30/20] ranolazine 1,000 mg PO BID 10/20/20 [History Last Taken 11/30/20] haloperidol 1 mg PO BID PRN 11/13/20 [History Last Taken Unknown] PNV cmb#95-ferrous fumarate-FA 1 each PO DAILY 11/14/20 [History Last Taken 11/29/20] albuterol sulfate 2 puff INHALATION Q4H PRN PRN 11/14/20 [History Last Taken Unknown] polyethylene glycol 3350 17 gm PO PRN PRN 11/14/20 [History Last Taken Unknown] isosorbide mononitrate 30 mg PO DINNER 11/21/20 [History Last Taken 11/29/20] acetaminophen [Tylenol] 650 mg PO Q6H PRN PRN #1 tab 12/05/20 [Rx Last Taken Unknown] bisacodyl 5 mg PO DAILY PRN #1 tab 12/05/20 [Rx Last Taken Unknown] menthol-zinc oxide [Calmoseptine] 1 applic TOPICAL TID 12/07/20 [History Last Taken Unknown] potassium chloride [Klor-Con M20] 40 meq PO DAILY@0800 12/07/20 [History Last Taken Unknown] Allergy/AdvReac Type Severity Reaction Status Date / Time aripiprazole [From Abilify] Allergy Intermediate it over Verified 11/21/20 03:29 powered me lisinopril Allergy Intermediate Unknown Verified 11/21/20 03:29 atorvastatin calcium AdvReac Unknown Verified 11/21/20 03:29 [From Lipitor] rosiglitazone maleate AdvReac Other Verified 11/21/20 03:29 [From Avandia] Family History Mother CAD (coronary artery disease) Father CAD (coronary artery disease) Surgical History History of appendectomy History of cholecystectomy History of colonoscopy (04/2020) History of coronary artery stent placement (08/20/18) History of esophagogastroduodenoscopy (EGD) (04/2020) History of left heart catheterization (06/25/19) History of spinal fusion History of tonsillectomy and adenoidectomy Social History (Updated 12/07/20 @ 20:[address] Prasad Tee MD) housing: care home Smoking Status: Never smoker alcohol intake: current details: occasional substance use type: does not use diet: low salt caffeine: No what type of physical activity do you participate in: walking frequency: daily seatbelt use: always do you feel safe at home: Yes ROS Constitutional Constitutional: Denies chills, fever(s) or weight gain ENT HEENT: Denies headache(s), nasal congestion or nasal discharge Cardiovascular Cardiovascular: Denies chest pain or palpitations Respiratory/Chest Respiratory/Chest: Denies cough, excessive phlegm production or shortness of breath with exertion Gastrointestinal Gastrointestinal: Denies abdominal pain, nausea or vomiting Genitourinary Genitourinary: Denies dysuria Musculoskeletal Musculoskeletal: Denies joint pain or joint swelling Integumentary Integumentary: Denies rash or wounds Neurologic Neurologic: Denies focal weakness, numbness or tingling Psychiatric Psychiatric: Reports auditory hallucinations; Denies anxiety, depression, homicidal ideation or suicidal ideation Vital Signs Vital Signs Vital Signs: 12/07/20 15:03 Temperature 97.7 F L Temperature Source Temporal Pulse Rate 67 Respiratory Rate 18 Blood Pressure 127/58 H Blood Pressure Mean 81 Blood Pressure Source Monitor Blood Pressure Position Sitting Blood Pressure Location Right Arm Pulse Ox 100 Oxygen Delivery Method Room Air Physical Exam Const alert and oriented x3 General Appearance: cooperative HEENT normocephalic Eyes PERRL and EOMs intact bilaterally Neck supple, no JVD and no carotid bruits Resp normal respiratory effort, normal air movement and clear to auscultation bilaterally Cardio regular rate and regular rhythm GI normal to inspection, nondistended, normoactive bowel sounds, non-tender and non-distended Extremity normal capillary refill General Extremity: Negative for edema Skin no rashes or lesions noted General Skin Exam: no breakdown Psych affect normal Appearance: appropriate Lab / Micro Data Labs: Laboratory Results - last 24 hr 12/07/20 16:11 POC Glucose 184 H Assessment & Plan Assessment/Plan (1) Debility: Status: Acute Code(s): R53.81 - Other malaise (2) Acute delirium: Status: Acute Code(s): R41.0 - Disorientation, unspecified (3) NSTEMI (non-ST elevated myocardial infarction): Status: Acute Code(s): I21.4 - Non-ST elevation (NSTEMI) myocardial infarction (4) Acute anemia: Status: Acute Code(s): D64.9 - Anemia, unspecified (5) Acute kidney injury: Status: Acute Code(s): N17.9 - Acute kidney failure, unspecified (6) Overactive bladder: Status: Acute Code(s): N32.81 - Overactive bladder (7) GERD (gastroesophageal reflux disease): Status: Acute Code(s): K21.9 - Gastro-esophageal reflux disease without esophagitis (8) Coronary artery disease: Status: Acute Code(s): I25.10 - Atherosclerotic heart disease of [place] coronary artery without angina pectoris (9) Chronic diastolic heart failure: Status: Chronic Code(s): I50.32 - Chronic diastolic (congestive) heart failure (10) Diabetes mellitus: Status: Acute Code(s): E11.9 - Type 2 diabetes mellitus without complications (11) Hyperlipidemia: Status: Acute Code(s): E78.5 - Hyperlipidemia, unspecified (12) Hypothyroidism: Status: Acute Code(s): E03.9 - Hypothyroidism, unspecified (13) Cirrhosis of liver: Status: Acute Code(s): K74.60 - Unspecified cirrhosis of liver (14) CHENEY (nonalcoholic steatohepatitis): Status: Acute Code(s): K75.81 - Nonalcoholic steatohepatitis (CHENEY) (15) Schizophrenia: Status: Acute Code(s): F20.9 - Schizophrenia, unspecified Plan: 80 year old female with below past medical history hospitalized for acute delirium, acute anemia requiring transfusion, complicated by NSTEMI, acute kidney injury, admitted to TCU with debility, here for rehabilitation, strengthening, prior to discharge to care home. Debility - PT/OT. Cognition - ST. Pain - Tylenol 650MG Q6H PRN. Bowel - Miralax 17GM daily PRN. Adult immunization - Administer Prevnar 13, Pneumovax 23, Fluzone, COVID19 vaccine as appropriate. DVT prophylaxis - Hold, acute anemia. Shortness of breath - Albuterol 2 puffs Q4H PRN. Coronary artery disease - Coreg 3.125MG BID, Isosorbide MN 30MG daily, Ranexa 1000MG BID, Aspirin 81MG DAILY>NTG 0.4MG Q5M PRN. vITAMIN D DEFICIENCY - [id number] DAILY. FOLATE DEFICIENCY - FOLIC ACID 1MG DAILY. 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 DIABETES MELLITUS II - LANTUS 34 UNITS DAILY, HUMALOG 5 UNITS TIDCM. HYPOTHYROIDISM - LEVOTHYROXINE 100MCG DAILY. SKIN IRRITATION - CALMOSEPTINE TOPICAL TID. GERD - PANTOPRAZOLE 40MG DAILY. HYPOKALEMIA - KCL 40MEQ DAILY. NUTRITION - VITAMIN 1 DAILY.
[2020-12-07] MEDS: Acetaminophen 325 MG Tablet 650 MG PO (21:03)
[2020-12-07] MEDS: Menthol/Lanolin/Calamine/Znox 113 GM Tube 1 APPLIC TOPICAL ×2 (21:05→21:14)
[2020-12-07 21:10] VITALS: PULSE 67; RESP 16
[2020-12-07 21:20] LABS: Bedside Glucose 160 mg/dL (70-110)
[2020-12-08 06:02] LABS: Basophil# 0.01 X10^3/uL; Basophil% 0.4 % (0-1); Eosinophil# 0.11 X10^3/uL; Eosinophils% 4.6 % (0-5); Hematocrit 21.6 % (37-47); Hemoglobin 6.8 g/dL (12.0-15.0); Lymphocyte % 45.8 % (19-41); Mean Corp Hgb Conc 31.5 g/dL (32-36); Mean Corpuscular Hgb 31.1 pg (27.0-32.0); Mean Corpuscular Volume 98.6 fL (81-99); Monocyte# 0.21 X10^3/uL; Monocyte% 8.8 % (0-10); NRBC Flagged by Analyzer 0 % (0-5); Neutrophil # 0.96 X10^3/uL (2.7-7.7); POSITIVE DIFFERENTIAL YES; Platelet Count 119 K/mm3 (150-450); RBC Distribution Width CV 16.1 % (11.6-14.6); Red Blood Count 2.19 M/mm3 (4.2-5.4); White Blood Count 2.4 K/mm3 (4.4-11.0)
[2020-12-08 06:03] LABS: Differential Indicated SCAN CRITERIA MET
[2020-12-08] MEDS: Prenatal Vits Tablet 1 TABLET PO (06:05)
[2020-12-08] MEDS: Pantoprazole Sodium 40 MG Tablet PO (06:05)
[2020-12-08] MEDS: Ranolazine 500 MG Tablet 1000 MG PO ×2 (06:06→17:33)
[2020-12-08] MEDS: Cholecalciferol (VIT D3) 25 MCG TABLET (1,000 UNITS) 125 MCG PO (06:06)
[2020-12-08] MEDS: Levothyroxine 100 MCG Tablet PO (06:06)
[2020-12-08 06:10] VITALS: BP 109/45; PULSE 65; RESP 18; TEMP 36.7; O2SAT 94
[2020-12-08 06:25] LABS: Bedside Glucose 86 mg/dL (70-110)
[2020-12-08 06:30] LABS: Anion Gap 4 (5-15); BUN 27 mg/dL (7-18); BUN/Creat Ratio 32.1 RATIO (10-20); Calcium,Total 8.3 mg/dL (8.5-10.1); Chloride 113 mmol/L (98-107); Creatinine, Serum 0.84 mg/dL (0.55-1.02); EST Glomerular Filtration Rate 69 mL/min (>60); Est Glom Filt Rate - Afr Amer 84 mL/min (>60); Estimated Creatinine Clearance 49.17 ml/min; Glucose 86 mg/dL (74-106); Potassium 4.5 mmol/L (3.5-5.1); Sodium Level 142 mmol/L (136-145)
[2020-12-08] MEDS: Aspirin 81 MG TAB.CHEW PO (08:14)
[2020-12-08] MEDS: Folic Acid 1 MG Tablet PO (08:14)
[2020-12-08] MEDS: Potassium Chloride Oral Tablet 20 MEQ 40 MEQ PO (08:14)
[2020-12-08] MEDS: Carvedilol 3.125 MG TABLET PO ×2 (08:14→17:33)
[2020-12-08 11:20] LABS: Bedside Glucose 211 mg/dL (70-110)
[2020-12-08] MEDS: Insulin Lispro 100 UNIT/ML INSULN.PEN SC (11:40)
[2020-12-08] MEDS: Tuberculin,Purif.prot.deriv. 50 TU/ML Vial 5 ML ID (11:40)
[2020-12-08] MEDS: Menthol/Lanolin/Calamine/Znox 113 GM Tube 1 APPLIC TOPICAL ×2 (11:44→21:22)
[2020-12-08 13:44] VITALS: BP 114/53; PULSE 67; RESP 17; TEMP 36.8; O2SAT 98
--- NOTE | 2020-12-08 14:20 | NURSING ---
ASKED R' IF THIS NURSE COULD CALL [facility]O FOR UPDATE. SHE GAVE PERMISSION. [facility] IS HER COUSIN AND LISTED NEXT OF KIN. UPDATED HIM THAT Zain' IS GETTING A BLOOD TRANSFUSION TOMORROW. HE STATED THIS NURSE SHOULD CALL HER SONS AND UPDATE THEM ON THIS WELL. ASKED R' FOR PERMISSION TO DO SO, BUT SHE REFUSED.
--- NOTE | 2020-12-08 14:48 | NURSING ---
Pt stated that she had $45.00 in her purse that she was going to give to someone for shopping. Pt can no longer find the money. Talked with staff and no one is aware of the $45.00. Pt did have a envelope with money in it. When asked about that she said no it was around my neck in purse. Belinda did look in her chair and found 20$ but unsure if it was the 20$ from envelope or part of the missing 45$. Will continue to ask staff and look for the money.
[2020-12-08 16:31] LABS: Bedside Glucose 311 mg/dL (70-110)
--- NOTE | 2020-12-08 16:32 | CASEMGMT ---
Social Work Met with patient for initial assessment. Discussed code status. Pt confirmed full code. MOLST form reviewed, communication to , placed in chart. Inquired about advanced directives. Pt would like both sons be HCPOA. However, only one son listed as try out person - inquired to contact to confirm HCPOA. Pt stated she does not want son called until after blood transfusion 5/ as he does not know pt has readmitted to the hospital. Pt has cousin, Wagner, listed as next of kin and okay with updates provided to him. Pt is active with [facility] care and the goal is to return to [facility]. Explained [facility] insurance with NRD 12/09 and continued stay is not guaranteed. SW to continue to follow to assist with DC planning. Margareth Fowler, JERRI TATEW
--- NOTE | 2020-12-08 17:18 | NURSING ---
Addendum entered by Joyce Cyr 12/08/20 17:46: DR INIGUEZ PUT TWO ORDERS FOR THIS EVENING FOR HUMALOG. VERIFIED ORDER. ONLY GIVE 10UNITS THIS EVENING, NOT 20UNITS TOTAL. UPDATED PHARMACY. Original Note: dr iniguez updated on blood sugar 311. increased humalog.
[2020-12-08] MEDS: Isosorbide Mononitrate 30 MG Tablet PO (17:33)
[2020-12-08] MEDS: Insulin Lispro 100 UNIT/ML INSULN.PEN 10 UNIT SC (17:33)
--- NOTE | 2020-12-08 19:45 | NURSING ---
Alarm sounds. Pt completed unassisted transfer ambulating from chair to bathroom. Incontinent of urine and also voided in toilet. Pt completed pericare. Absorbent pad of depend placed in underwear and tabs removed. Asks this nurse questions regarding blood transfusion tomorrow and answered. Pt going through belongings and thinks a check for her rent is missing. Check found in a green bag. This nurse offered to lock up check in med box and she refuses. Pt also informs this nurse she brought $45 into the hospital and only $20 has been located.
[2020-12-08 21:16] LABS: Bedside Glucose 260 mg/dL (70-110)
[2020-12-08] MEDS: Pravastatin 80 MG Tablet PO (21:22)
[2020-12-09] MEDS: Menthol/Lanolin/Calamine/Znox 113 GM Tube 1 APPLIC TOPICAL ×3 (05:39→20:56)
[2020-12-09] MEDS: Pantoprazole Sodium 40 MG Tablet PO (05:40)
[2020-12-09] MEDS: Prenatal Vits Tablet 1 TABLET PO (05:40)
[2020-12-09] MEDS: Levothyroxine 100 MCG Tablet PO (05:40)
[2020-12-09] MEDS: Cholecalciferol (VIT D3) 25 MCG TABLET (1,000 UNITS) 125 MCG PO (05:40)
[2020-12-09] MEDS: Ranolazine 500 MG Tablet 1000 MG PO ×2 (05:40→18:42)
[2020-12-09 05:43] VITALS: BP 103/37; PULSE 62; RESP 14; TEMP 36.6; O2SAT 99
[2020-12-09 06:25] LABS: Bedside Glucose 117 mg/dL (70-110)
[2020-12-09] MEDS: Insulin Lispro 100 UNIT/ML INSULN.PEN 10 UNIT SC ×3 (07:46→18:43)
[2020-12-09] MEDS: Folic Acid 1 MG Tablet PO (07:47)
[2020-12-09] MEDS: Potassium Chloride Oral Tablet 20 MEQ 40 MEQ PO (07:47)
[2020-12-09] MEDS: Aspirin 81 MG TAB.CHEW PO (07:47)
[2020-12-09 10:00] VITALS: PULSE 68; RESP 16; O2SAT 100
[2020-12-09 12:05] LABS: Bedside Glucose 108 mg/dL (70-110)
--- NOTE | 2020-12-09 13:32 | PCM.PN.RX ---
Progress Note - Pharmacy Subjective: TCU ADMISSION Objective: Allergies aripiprazole [From Abilify] Allergy (Intermediate, Verified 11/21/20 03:29) it over powered me lisinopril Allergy (Intermediate, Verified 11/21/20 03:29) Unknown atorvastatin calcium [From Lipitor] Adverse Reaction (Verified 11/21/20 03:29) Unknown rosiglitazone maleate [From Avandia] Adverse Reaction (Verified 11/21/20 03:29) Other Current Medications Generic Name Dose Route Start Last Admin Trade Name Freq PRN Reason Stop Dose Admin Acetaminophen 650 mg 12/07/20 15:15 12/07/20 21:03 Acetaminophen 325 Mg Tablet PO 650 mg Q6H PRN PRN Administration Pain Score 1-10/Temp > 100.7 F Albuterol Sulfate 2 puff 12/07/20 16:05 Albuterol Sulfate 8 Gm Inhaler (60 Puffs) INHALATION Q4H PRN PRN SOB/WHEEZING Aspirin 81 mg 12/08/20 08:00 12/09/20 07:47 Aspirin 81 Mg Tab.Chew PO 81 mg DAILY@0800 GEORGES Administration Bisacodyl 5 mg 12/07/20 15:15 Bisacodyl 5 Mg Tablet PO DAILY PRN constipation Calamine/Phenol 1 applic 12/07/20 22:00 12/09/20 05:39 Menthol/Lanolin/Calamine/Znox 113 Gm Tube TOPICAL 1 applic TID GEORGES Administration Protocol Carvedilol 3.125 mg 12/07/20 17:00 12/09/20 07:48 Carvedilol 3.125 Mg Tablet PO Not Given BIDCM [facility] Cholecalciferol 125 mcg 12/08/20 06:00 12/09/20 05:40 Cholecalciferol (Vit D3) 25 Mcg Tablet (1,000 Units) PO 125 mcg DAILY GEORGES Administration Folic Acid 1 mg 12/08/20 08:00 12/09/20 07:47 Folic Acid 1 Mg Tablet PO 1 mg DAILYCM [facility] Administration Haloperidol 1 mg 12/07/20 15:15 Haloperidol 1 Mg Tablet PO BID PRN Nausea Insulin Glargine 34 units 12/08/20 06:00 12/09/20 06:32 Insulin Glargine 100 Units/Ml Pen SC 34 u DAILY GEORGES Administration Insulin Human Lispro 10 unit 12/09/20 07:45 12/09/20 12:04 Insulin Lispro 100 Unit/Ml Insuln.Pen SC 10 u TIDCM GEORGES Administration Isosorbide Mononitrate 30 mg 12/07/20 17:00 12/08/20 17:33 Isosorbide Mononitrate 30 Mg Tablet PO 30 mg DINNER GEORGES Administration Levothyroxine Sodium 100 mcg 12/08/20 06:00 12/09/20 05:40 Levothyroxine 100 Mcg Tablet PO 100 mcg DAILY GEORGES Administration Nitroglycerin 0.4 mg 12/07/20 16:06 Nitroglycerin (Inpatient Use) 0.4 Mg Tab.Subl SL Q5M PRN CARDIAC/CHEST PAIN Pantoprazole Sodium 40 mg 12/08/20 06:00 12/09/20 05:40 Pantoprazole Sodium 40 Mg Tablet PO 40 mg DAILY GEORGES Administration Polyethylene Glycol 17 gm 12/07/20 15:15 Polyethylene Glycol 3350 17 Gm Packet PO DAILY PRN PRN Constipation Potassium Chloride 40 meq 12/08/20 08:00 12/09/20 07:47 Potassium Chloride Oral Tablet 20 Meq PO 40 meq DAILY@0800 GEORGES Administration Pravastatin Sodium 80 mg 12/08/20 22:00 12/08/20 21:22 Pravastatin 80 Mg Tablet PO 80 mg QHS GEORGES Administration Multivit/Folic Acid/Iron 1 tablet 12/08/20 06:00 12/09/20 05:40 Vits Tablet PO 1 tablet DAILY GEORGES Administration Ranolazine 1,000 mg 12/07/20 18:00 12/09/20 05:40 Ranolazine 500 Mg Tablet PO 1,000 mg BID GEORGES Administration Tuberculin PPD 5 tu 12/15/20 10:00 Tuberculin,Purif.Prot.Deriv. 50 Tu/Ml Vial ID 12/15/20 10:01 X1 ONE Problem List (Last Reviewed 11/30/20 @ 09:[address] Dax Quintana MD) Schizophrenia (Acute) CHENEY (nonalcoholic steatohepatitis) (Acute) Cirrhosis of liver (Acute) Hypothyroidism (Acute) Hyperlipidemia (Acute) Diabetes mellitus (Acute) Chronic diastolic heart failure (Chronic) Coronary artery disease (Acute) GERD (gastroesophageal reflux disease) (Acute) Overactive bladder (Acute) Acute kidney injury (Acute) Acute anemia (Acute) NSTEMI (non-ST elevated myocardial infarction) (Acute) Acute delirium (Acute) Debility (Acute) Vital Signs Temp Pulse Resp BP Pulse Ox 97.8 F 62 14 103/37 L 99 12/09/20 05:43 12/09/20 05:43 12/09/20 05:43 12/09/20 05:43 12/09/20 05:43 Oxygen Delivery Method Room Air Weight: 86.863 kg Body Mass Index (BMI) 30.9 Finger Stick Blood Glucose 270 Sodium 142 mmol/L (136-145) 12/08/20 05:30 Potassium 4.5 mmol/L (3.5-5.1) 12/08/20 05:30 Chloride 113 mmol/L (98-107) H 12/08/20 05:30 Carbon Dioxide 25.0 mmol/L (21.0-32.0) 12/08/20 05:30 Anion Gap 4 (5-15) L 12/08/20 05:30 BUN 27 mg/dL (7-18) H 12/08/20 05:30 Creatinine 0.84 mg/dL (0.55-1.02) 12/08/20 05:30 Est GFR (MDRD) Af Amer 84 mL/min (>60) 12/08/20 05:30 Est GFR (MDRD) Non-Af 69 mL/min (>60) 12/08/20 05:30 BUN/Creatinine Ratio 32.1 RATIO (10-20) H 12/08/20 05:30 Glucose 86 mg/dL (74-106) 12/08/20 05:30 Assessment/Plan: 1. Pain: Tylenol 650mg PO Q6H pain (1-10). Please continue to monitor pain and PRN usage. 2. Shortness of breath: albuterol 2 puffs inhalation Q4H PRN SOB/wheezing. 3. Coronary artery disease: carvedilol 3.125mg PO BID with meals, isosorbide mononitrate 30mg PO daily with dinner, ranolazine 1000mg PO BID, aspirin 81mg PO daily, nitroglycerin 0.4mg sublingual Q5min PRN cardiac/chest pain. Please continue to monitor HR (last 67), BP (last 114/53), S/S of bleeding, and S/S of CAD. 4. Vitamin D deficiency/Folate deficiency/Hypokalemia/Nutrition: Vitamin D 125mcg PO daily, folic acid 1mg PO daily with meals, potassium chloride 40mEq PO daily in the morning, vitamin 1 tab PO daily. Please continue to monitor calcium (last 8.3), S/S of vitamin D deficiency, and potassium (last 4.5). 5. Diabetes mellitus 2: Lantus 34 units SC daily, Humalog 5 units SC TID with meals. Please continue to monitor blood glucose (last 211) and S/S of abnormal blood sugar levels. 6. Hypothyroidism: levothyroxine 100mcg PO daily. Please continue to monitor FT4 (last 1.12 ng/dL on 10/07/18) and TSH (last 0.98 uIU/mL on 08/31/20). 7. Skin irritation: Calmoseptine topical TID. please continue to monitor skin irritation. 8. GERD: pantoprazole 40mg PO daily. Please continue to monitor S/S of GERD. 9. Hyperlipidemia: pravastatin 80mg PO QHS. Please continue to monitor muscle pain. Psychotropic Medications: *10. Schizophrenia: haloperidol 1mg PO BID PRN nausea. See physician's note regarding GDR. Please consider ordering serum haloperidol levels as clinically appropriate, medication effectiveness Unnecessary Medications: None Bowel Regimen: Miralax 17gm PO daily PRN constipation, bisacodyl 5mg daily PO PRN constipation. Please continue to monitor for constipation and PRN usage. Date of Note:: 12/09/20
[2020-12-09 16:00] VITALS: BP 136/61; PULSE 66; RESP 18; TEMP 36.7; O2SAT 97
--- NOTE | 2020-12-09 16:16 | CHAPLAIN ---
Type of Pastoral Visit ___ Initial Visit ___ Follow-up Visit ___ On-call Visit ___ General Patient Visit ___ Spiritual Assessment ___ Family Conference ___ Bereavement ___ Rapid Response ___ Code Blue ___ Other (describe below) Pastoral Care Referral From ___ Patient ___ Family ___ Nurse ___ Physician ___ Oil Field Equipment Mechanic Supervisor ___ Coffee Machine Technician ___ Other (describe below) Sacrament/Intervention ___ Active listening ___ Anointing ___ Spiritism ___ Bereavement ___ Communion ___ Rosa Maria exploration ___ ___ Life review ___ Prayer ___ Reconciliation ___ Sacrament of Sick ___ Supportive presence ___ Wedding ___ Other (describe below) Pastoral Comments patient was not available today; patient was sleeping yesterday when first attempt was made
[2020-12-09] MEDS: Isosorbide Mononitrate 30 MG Tablet PO (18:42)
[2020-12-09] MEDS: Carvedilol 3.125 MG TABLET PO (18:43)
[2020-12-09] MEDS: Bisacodyl 5 MG Tablet PO (20:56)
[2020-12-09] MEDS: Pravastatin 80 MG Tablet PO (20:57)
[2020-12-09 21:36] LABS: Bedside Glucose 71 mg/dL (70-110)
[2020-12-09 23:36] LABS: Bedside Glucose 77 mg/dL (70-110)
[2020-12-10 05:00] VITALS: BP 110/55; PULSE 64; RESP 16; TEMP 36.6; O2SAT 98
[2020-12-10 05:49] LABS: Hematocrit 29.1 % (37-47); Hemoglobin 9.3 g/dL (12.0-15.0)
[2020-12-10 06:21] LABS: Bedside Glucose 78 mg/dL (70-110)
[2020-12-10] MEDS: Menthol/Lanolin/Calamine/Znox 113 GM Tube 1 APPLIC TOPICAL ×3 (06:38→22:28)
[2020-12-10] MEDS: Levothyroxine 100 MCG Tablet PO (06:42)
[2020-12-10] MEDS: Cholecalciferol (VIT D3) 25 MCG TABLET (1,000 UNITS) 125 MCG PO (06:43)
[2020-12-10] MEDS: Pantoprazole Sodium 40 MG Tablet PO (06:43)
[2020-12-10] MEDS: Prenatal Vits Tablet 1 TABLET PO (06:44)
[2020-12-10] MEDS: Aspirin 81 MG TAB.CHEW PO (08:26)
[2020-12-10] MEDS: Folic Acid 1 MG Tablet PO (08:26)
[2020-12-10] MEDS: Carvedilol 3.125 MG TABLET PO ×2 (08:26→18:00)
[2020-12-10] MEDS: Potassium Chloride Oral Tablet 20 MEQ 40 MEQ PO (08:26)
[2020-12-10 11:11] LABS: Bedside Glucose 162 mg/dL (70-110)
[2020-12-10] MEDS: Insulin Lispro 100 UNIT/ML INSULN.PEN SC ×2 (12:22→18:00)
[2020-12-10 13:59] VITALS: BP 116/56; PULSE 61; RESP 16; TEMP 37.1; O2SAT 99
[2020-12-10 16:56] LABS: Bedside Glucose 150 mg/dL (70-110)
[2020-12-10] MEDS: Isosorbide Mononitrate 30 MG Tablet PO (18:00)
[2020-12-10] MEDS: Ranolazine 500 MG Tablet 1000 MG PO (18:00)
[2020-12-10 21:26] LABS: Bedside Glucose 144 mg/dL (70-110)
[2020-12-10] MEDS: Pravastatin 80 MG Tablet PO (22:29)
[2020-12-10] MEDS: Bisacodyl 5 MG Tablet PO (22:30)
[2020-12-10 22:40] VITALS: PULSE 61; RESP 16; O2SAT 98
[2020-12-11 05:00] VITALS: BP 111/51; PULSE 64; RESP 16; TEMP 36.6; O2SAT 99
[2020-12-11] MEDS: Menthol/Lanolin/Calamine/Znox 113 GM Tube 1 APPLIC TOPICAL ×3 (06:09→20:36)
[2020-12-11] MEDS: Levothyroxine 100 MCG Tablet PO (06:11)
[2020-12-11 07:21] LABS: Bedside Glucose 116 mg/dL (70-110)
[2020-12-11] MEDS: Insulin Lispro 100 UNIT/ML INSULN.PEN SC ×3 (08:20→17:42)
[2020-12-11] MEDS: Potassium Chloride Oral Tablet 20 MEQ 40 MEQ PO (08:20)
[2020-12-11] MEDS: Folic Acid 1 MG Tablet PO (08:21)
[2020-12-11] MEDS: Carvedilol 3.125 MG TABLET PO ×2 (08:21→17:41)
[2020-12-11] MEDS: Aspirin 81 MG TAB.CHEW PO (08:21)
[2020-12-11] MEDS: Prenatal Vits Tablet 1 TABLET PO (08:22)
[2020-12-11] MEDS: Cholecalciferol (VIT D3) 25 MCG TABLET (1,000 UNITS) 125 MCG PO (08:22)
[2020-12-11] MEDS: Pantoprazole Sodium 40 MG Tablet PO (08:22)
[2020-12-11 11:01] LABS: Bedside Glucose 156 mg/dL (70-110)
[2020-12-11 14:03] VITALS: BP 126/52; PULSE 66; RESP 17; TEMP 36; O2SAT 100
[2020-12-11 17:00] LABS: Bedside Glucose 132 mg/dL (70-110)
[2020-12-11] MEDS: Ranolazine 500 MG Tablet 1000 MG PO (17:41)
[2020-12-11] MEDS: Isosorbide Mononitrate 30 MG Tablet PO (17:41)
[2020-12-11] MEDS: Pravastatin 80 MG Tablet PO (20:36)
[2020-12-11 21:41] LABS: Bedside Glucose 154 mg/dL (70-110)
--- NOTE | 2020-12-12 03:48 | NURSING ---
Pt alert and cooperative with care, appropriate with using call light for assist. Helped several times to BR with 1 assist and walker. No c/o pain or other needs.
[2020-12-12 05:00] VITALS: BP 123/51; PULSE 69; RESP 14; TEMP 36.1
[2020-12-12] MEDS: Menthol/Lanolin/Calamine/Znox 113 GM Tube 1 APPLIC TOPICAL ×2 (05:39→21:12)
[2020-12-12] MEDS: Pantoprazole Sodium 40 MG Tablet PO (05:40)
[2020-12-12] MEDS: Cholecalciferol (VIT D3) 25 MCG TABLET (1,000 UNITS) 125 MCG PO (05:40)
[2020-12-12] MEDS: Ranolazine 500 MG Tablet 1000 MG PO ×2 (05:40→17:46)
[2020-12-12] MEDS: Prenatal Vits Tablet 1 TABLET PO (05:40)
[2020-12-12] MEDS: Levothyroxine 100 MCG Tablet PO (05:40)
[2020-12-12 06:30] LABS: Bedside Glucose 79 mg/dL (70-110)
[2020-12-12] MEDS: Insulin Lispro 100 UNIT/ML INSULN.PEN SC ×3 (08:46→17:46)
[2020-12-12] MEDS: Potassium Chloride Oral Tablet 20 MEQ 40 MEQ PO (08:48)
[2020-12-12] MEDS: Aspirin 81 MG TAB.CHEW PO (08:48)
[2020-12-12] MEDS: Carvedilol 3.125 MG TABLET PO ×2 (08:48→17:45)
[2020-12-12] MEDS: Folic Acid 1 MG Tablet PO (08:48)
[2020-12-12 11:26] LABS: Bedside Glucose 90 mg/dL (70-110)
[2020-12-12 14:33] VITALS: BP 109/49; PULSE 61; RESP 17; TEMP 36.9; O2SAT 98
[2020-12-12 16:51] LABS: Bedside Glucose 137 mg/dL (70-110)
[2020-12-12] MEDS: Isosorbide Mononitrate 30 MG Tablet PO (17:45)
[2020-12-12] MEDS: Pravastatin 80 MG Tablet PO (21:13)
[2020-12-12 21:55] LABS: Bedside Glucose 163 mg/dL (70-110)
[2020-12-12 22:08] VITALS: PULSE 68; RESP 14; O2SAT 98
[2020-12-13 05:00] VITALS: BP 123/47; PULSE 64; RESP 14; TEMP 36.9; O2SAT 98
[2020-12-13] MEDS: Menthol/Lanolin/Calamine/Znox 113 GM Tube 1 APPLIC TOPICAL ×3 (05:53→22:19)
[2020-12-13] MEDS: Levothyroxine 100 MCG Tablet PO (05:54)
[2020-12-13] MEDS: Pantoprazole Sodium 40 MG Tablet PO (05:54)
[2020-12-13] MEDS: Cholecalciferol (VIT D3) 25 MCG TABLET (1,000 UNITS) 125 MCG PO (05:54)
[2020-12-13] MEDS: Ranolazine 500 MG Tablet 1000 MG PO ×2 (05:54→18:17)
[2020-12-13 06:31] LABS: Bedside Glucose 75 mg/dL (70-110)
[2020-12-13] MEDS: Insulin Lispro 100 UNIT/ML INSULN.PEN SC ×2 (08:50→13:00)
[2020-12-13] MEDS: Potassium Chloride Oral Tablet 20 MEQ 40 MEQ PO (08:50)
[2020-12-13] MEDS: Aspirin 81 MG TAB.CHEW PO (08:50)
[2020-12-13] MEDS: Folic Acid 1 MG Tablet PO (08:50)
[2020-12-13] MEDS: Carvedilol 3.125 MG TABLET PO ×2 (08:50→18:17)
[2020-12-13] MEDS: Prenatal Vits Tablet 1 TABLET PO (10:05)
[2020-12-13 10:11] VITALS: PULSE 62; RESP 16; O2SAT 99
[2020-12-13 11:01] LABS: Bedside Glucose 132 mg/dL (70-110)
--- NOTE | 2020-12-13 13:41 | CASEMGMT ---
Social Work Brief interview for mental status (BIMS) and resident mood assessment (PHQ-9) completed don this day. BIMS score . PHQ-9 score 10/02. Lukas GUTHRIE, NICHOLASS
[2020-12-13 14:06] VITALS: BP 125/49; PULSE 62; RESP 18; TEMP 36.8; O2SAT 96
--- NOTE | 2020-12-13 16:28 | CASEMGMT ---
Social Work Met with patient in room per patient request. Patient requesting for discharge date to be set for 12/16/2020, team is agreeable to discharge date/request. Patient to return to living at [facility]. Therapy recommending for patient to have physical and occupational therapy. Patient reports to have all needed medical equipment already set up. Patient reports to have Taxi vouchers for transportation to home. Patient with no further questions. Emergency Medical Technician/Driver to continue to follow for: Set up home Home health services. Notification to [facility] of patient discharge plan. Discharge planning/support. Proposed discharge date set for 12/16/2020. Lukas GUTHRIE, NICHOLASS
[2020-12-13 16:31] LABS: Bedside Glucose 58 mg/dL (70-110)
[2020-12-13 17:40] LABS: Bedside Glucose 71 mg/dL (70-110)
[2020-12-13] MEDS: Isosorbide Mononitrate 30 MG Tablet PO (18:17)
--- NOTE | 2020-12-13 19:32 | DS.PCM_ITS ---
Providers Date of Admission: 12/07/20 Primary Care Physician: Dr. Diana Cohne MD Reason For Visit: ENCEPHALOPATHY/ELEVATED TROPONIN Diagnosis Discharge Diagnosis (1) Debility: Status: Acute Code(s): R53.81 - Other malaise (2) Acute delirium: Status: Acute Code(s): R41.0 - Disorientation, unspecified (3) NSTEMI (non-ST elevated myocardial infarction): Status: Acute Code(s): I21.4 - Non-ST elevation (NSTEMI) myocardial infarction (4) Acute anemia: Status: Acute Code(s): D64.9 - Anemia, unspecified (5) Acute kidney injury: Status: Acute Code(s): N17.9 - Acute kidney failure, unspecified (6) Overactive bladder: Status: Acute Code(s): N32.81 - Overactive bladder (7) GERD (gastroesophageal reflux disease): Status: Acute Code(s): K21.9 - Gastro-esophageal reflux disease without esophagitis (8) Coronary artery disease: Status: Acute Code(s): I25.10 - Atherosclerotic heart disease of [place] coronary artery without angina pectoris (9) Chronic diastolic heart failure: Status: Chronic Code(s): I50.32 - Chronic diastolic (congestive) heart failure (10) Diabetes mellitus: Status: Acute Code(s): E11.9 - Type 2 diabetes mellitus without complications (11) Hyperlipidemia: Status: Acute Code(s): E78.5 - Hyperlipidemia, unspecified (12) Hypothyroidism: Status: Acute Code(s): E03.9 - Hypothyroidism, unspecified (13) Cirrhosis of liver: Status: Acute Code(s): K74.60 - Unspecified cirrhosis of liver (14) CHENEY (nonalcoholic steatohepatitis): Status: Acute Code(s): K75.81 - Nonalcoholic steatohepatitis (CHENEY) (15) Schizophrenia: Status: Acute Code(s): F20.9 - Schizophrenia, unspecified Medications at Discharge Home Medications aspirin 81 mg PO DAILY@0800 06/30/17 nitroglycerin 0.4 mg SL PRN PRN 06/30/17 ascorbic acid (vitamin C) 500 mg tablet 500 mg PO DAILY 09/13/18 insulin glargine U-300 conc 34 unit SC DAILY 04/23/19 carvedilol 3.125 mg PO BIDCM 06/24/19 cholecalciferol (vitamin D3) 5,000 unit PO DAILY 06/24/19 levothyroxine 100 mcg PO DAILY 07/24/19 folic acid 1 mg PO DAILY 02/10/20 insulin regular human 5 unit SQ TIDCM 02/10/20 mirabegron 25 mg tablet,extended release 24 hr 25 mg PO DAILY 06/17/20 pravastatin 80 mg tablet 80 mg PO DAILY #90 tab 08/13/20 pantoprazole 40 mg PO DAILY 10/20/20 ranolazine 1,000 mg PO BID 10/20/20 haloperidol 1 mg PO BID PRN 11/13/20 PNV cmb#95-ferrous fumarate-FA 1 each PO DAILY 11/14/20 albuterol sulfate 2 puff INHALATION Q4H PRN PRN 11/14/20 polyethylene glycol 3350 17 gm PO PRN PRN 11/14/20 isosorbide mononitrate 30 mg PO DINNER 11/21/20 acetaminophen [Tylenol] 650 mg PO Q6H PRN PRN #1 tab 12/05/20 bisacodyl 5 mg PO DAILY PRN #1 tab 12/05/20 potassium chloride [Klor-Con M20] 40 meq PO DAILY@0800 12/07/20 Hospital Course Operations None Procedures None Summary of Care Provided Minutes Spent on Discharge: 35 Hospital Course: 80 year old female with below past medical history hospitalized for acute delirium, acute anemia requiring transfusion, complicated by NSTEMI, acute kidney injury, admitted to TCU with debility, here for rehabilitation, strengthening, prior to discharge to long-term. Discharge to [facility] 12/16/2020, Home Health Care PT/OT. ABG / Lab / Microbiology Data Result Diagrams: 12/10/20 05:15 12/08/20 05:30 Laboratory: Laboratory Results - last 24 hr 12/12/20 12/13/20 12/13/20 21:50 06:09 10:56 POC Glucose 163 H 75 132 H 12/13/20 12/13/20 16:09 16:41 POC Glucose 58 L 71 D/C Instructions Discharge Diet: No restrictions Discharge Activity: Return to Normal Activity, May Shower and Use Walker Weight Bearing Status: Weight bearing as tolerated Call your doctor if you observe: Fever of 101 or Higher, Inability to urinate, Inability to have a bowel movement, Shortness of breath, Chest pain and Uncontrolled pain Additional Instructions: Discharge to [facility] 12/16/2020, Home Health Care PT/OT. Please Follow Up With: Diana Cohen MD When: 1 week. Meaningful Use Info Meaningful Use Diagnoses (Choose all that apply): None applicable Discharge Plan Admission Admit Date/Time: 12/07/20 14:45 Primary Reason for Your Visit: Debility Attending Provider: Prasad Tee Chi Primary Care Provider: Diana Cohen Instructions Additional Instructions / Restrictions: Discharge to [facility] 12/16/2020, Home Health Care PT/OT. Discharge Orders/Prescriptions Prescriptions: Continued ascorbic acid (vitamin C) 500 mg tablet 500 mg PO DAILY RF: 0 mirabegron 25 mg tablet extended release 24 hr 25 mg PO DAILY RF: 0 nitroglycerin 0.4 MG tablet, sublingual 0.4 mg SL PRN PRN (Reason: CHEST PAIN) RF: 0 aspirin 81 MG tablet,chewable 81 mg PO DAILY@0800 RF: 0 insulin glargine U-300 conc 300/ML insulin pen 34 unit SC DAILY RF: 0 carvedilol 3.125 MG tablet 3.125 mg PO BIDCM RF: 0 cholecalciferol (vitamin D3) 5,000 UNIT capsule 5,000 unit PO DAILY RF: 0 levothyroxine 100 MCG tablet 100 mcg PO DAILY RF: 0 insulin regular human 100 UNIT/ML solution 5 unit SQ TIDCM RF: 0 folic acid 1 MG tablet 1 mg PO DAILY RF: 0 pantoprazole 40 MG tablet 40 mg PO DAILY RF: 0 ranolazine 1,000 MG tablet extended release 12 hr 1,000 mg PO BID RF: 0 haloperidol 1 MG tablet 1 mg PO BID PRN (Reason: Nausea) RF: 0 polyethylene glycol 3350 17 GM packet 17 gm PO PRN PRN (Reason: Constipation) RF: 0 albuterol sulfate 1 PUFF inhaler 2 puff INHALATION Q4H PRN PRN (Reason: SOB/WHEEZING) RF: 0 PNV cmb#95-ferrous fumarate-FA 1 EACH tablet 1 each PO DAILY RF: 0 isosorbide mononitrate 60 MG tablet extended release 24 hr 30 mg PO DINNER RF: 0 acetaminophen [Tylenol] 325 mg Tablet 650 mg PO Q6H PRN PRN (Reason: Pain Score 1-10/Temp > 100.7 F) Qty: 1 RF: 0 bisacodyl 5 mg Tablet,Delayed Release (Dr/Ec) 5 mg PO DAILY PRN (Reason: constipation) Qty: 1 RF: 0 potassium chloride [Klor-Con M20] 20 mEq tablet,ER particles/crystals 40 meq PO DAILY@0800 RF: 0 pravastatin 80 mg tablet 80 mg PO DAILY Qty: 90 RF: 3 Discontinued Calmoseptine 0.44-20.6 % ointment 1 applic topical TID RF: 0 Referrals / Follow Up: Diana Cohen MD [Primary Care Provider] - Disposition Disposition (needs filled in before D/C Order can be placed): Assisted Living
--- NOTE | 2020-12-13 19:41 | PCM.TXEXTCAR ---
Diet 12/07/20 15:48 Diet: Cardiac - Heart Healthy Food consistency:: Regular Liquid Consistency:: Regular/Thin Dietary Modifications:: Consistent Carbohydrate Is pt able to select menu?: Yes Routine Orders/Code Status Code Status: Full Code Therapies Weight Bearing: Weight bearing as tolerated Extremity Affected:: Bilateral Lower Physical Therapy: Eval and Treat Occupational Therapy: Eval and Treat Problem/Diagnosis (1) Debility: Status: Acute (2) Acute delirium: Status: Acute (3) NSTEMI (non-ST elevated myocardial infarction): Status: Acute (4) Acute anemia: Status: Acute (5) Acute kidney injury: Status: Acute (6) Overactive bladder: Status: Acute (7) GERD (gastroesophageal reflux disease): Status: Acute (8) Coronary artery disease: Status: Acute (9) Chronic diastolic heart failure: Status: Chronic (10) Diabetes mellitus: Status: Acute (11) Hyperlipidemia: Status: Acute (12) Hypothyroidism: Status: Acute (13) Cirrhosis of liver: Status: Acute (14) CHENEY (nonalcoholic steatohepatitis): Status: Acute (15) Schizophrenia: Status: Acute Allergies/Procedures Done in Hospital Allergies aripiprazole [From Abilify] Allergy (Intermediate, Verified 11/21/20 03:29) it over powered me lisinopril Allergy (Intermediate, Verified 11/21/20 03:29) Unknown atorvastatin calcium [From Lipitor] Adverse Reaction (Verified 11/21/20 03:29) Unknown rosiglitazone maleate [From Avandia] Adverse Reaction (Verified 11/21/20 03:29) Other Type of Care/Length of Stay Estimated LOS: More Than 30 Days Type of Care Needed: Skilled Nursing/Assisted Living Rehab Potential: Fair Prognosis: Fair Additional Orders/Day of Discharge Day of Discharge: 12/16/20 Dietary and Speech Recommendations Dietitian Recommendations/Changes: Continue current diet as ordered Follow Up Care Please Follow Up With: Diana Cohen MD When: when d/c from TCU Please Follow Up With: Meet Kumar MD (will see Zoila SRINIVASAN) Discharge Plan Admission Admit Date/Time: 12/07/20 14:45 Primary Reason for Your Visit: Debility Attending Provider: Prasad Tee Chi Primary Care Provider: Diana Cohen Instructions Additional Instructions / Restrictions: Discharge to [facility] 12/16/2020, Home Health Care PT/OT. Discharge Orders/Prescriptions Prescriptions: Continued ascorbic acid (vitamin C) 500 mg tablet 500 mg PO DAILY RF: 0 mirabegron 25 mg tablet extended release 24 hr 25 mg PO DAILY RF: 0 nitroglycerin 0.4 MG tablet, sublingual 0.4 mg SL PRN PRN (Reason: CHEST PAIN) RF: 0 aspirin 81 MG tablet,chewable 81 mg PO DAILY@0800 RF: 0 insulin glargine U-300 conc 300/ML insulin pen 34 unit SC DAILY RF: 0 carvedilol 3.125 MG tablet 3.125 mg PO BIDCM RF: 0 cholecalciferol (vitamin D3) 5,000 UNIT capsule 5,000 unit PO DAILY RF: 0 levothyroxine 100 MCG tablet 100 mcg PO DAILY RF: 0 insulin regular human 100 UNIT/ML solution 5 unit SQ TIDCM RF: 0 folic acid 1 MG tablet 1 mg PO DAILY RF: 0 pantoprazole 40 MG tablet 40 mg PO DAILY RF: 0 ranolazine 1,000 MG tablet extended release 12 hr 1,000 mg PO BID RF: 0 haloperidol 1 MG tablet 1 mg PO BID PRN (Reason: Nausea) RF: 0 polyethylene glycol 3350 17 GM packet 17 gm PO PRN PRN (Reason: Constipation) RF: 0 albuterol sulfate 1 PUFF inhaler 2 puff INHALATION Q4H PRN PRN (Reason: SOB/WHEEZING) RF: 0 PNV cmb#95-ferrous fumarate-FA 1 EACH tablet 1 each PO DAILY RF: 0 isosorbide mononitrate 60 MG tablet extended release 24 hr 30 mg PO DINNER RF: 0 acetaminophen [Tylenol] 325 mg Tablet 650 mg PO Q6H PRN PRN (Reason: Pain Score 1-10/Temp > 100.7 F) Qty: 1 RF: 0 bisacodyl 5 mg Tablet,Delayed Release (Dr/Ec) 5 mg PO DAILY PRN (Reason: constipation) Qty: 1 RF: 0 potassium chloride [Klor-Con M20] 20 mEq tablet,ER particles/crystals 40 meq PO DAILY@0800 RF: 0 pravastatin 80 mg tablet 80 mg PO DAILY Qty: 90 RF: 3 Discontinued Calmoseptine 0.44-20.6 % ointment 1 applic topical TID RF: 0 Referrals / Follow Up: Ganta,Diana, MD [Primary Care Provider] - Disposition Disposition (needs filled in before D/C Order can be placed): Assisted Living Discharge Orders: Discharge Patient (Routine); Ordered 12/16/20 Ordered By: Dr. Prasad Tee
[2020-12-13 22:01] LABS: Bedside Glucose 213 mg/dL (70-110)
[2020-12-13] MEDS: Bisacodyl 5 MG Tablet PO (22:19)
[2020-12-13] MEDS: Acetaminophen 325 MG Tablet 650 MG PO (22:19)
[2020-12-13] MEDS: Pravastatin 80 MG Tablet PO (22:19)
[2020-12-14] MEDS: Pantoprazole Sodium 40 MG Tablet PO (04:50)
[2020-12-14] MEDS: Cholecalciferol (VIT D3) 25 MCG TABLET (1,000 UNITS) 125 MCG PO (04:50)
[2020-12-14] MEDS: Levothyroxine 100 MCG Tablet PO (04:51)
[2020-12-14] MEDS: Menthol/Lanolin/Calamine/Znox 113 GM Tube 1 APPLIC TOPICAL ×3 (04:52→20:28)
[2020-12-14 05:00] VITALS: BP 105/46; PULSE 65; RESP 20; TEMP 36.9; O2SAT 98
[2020-12-14 06:26] LABS: Bedside Glucose 81 mg/dL (70-110)
[2020-12-14] MEDS: Aspirin 81 MG TAB.CHEW PO (08:36)
[2020-12-14] MEDS: Carvedilol 3.125 MG TABLET PO ×2 (08:36→17:27)
[2020-12-14] MEDS: Potassium Chloride Oral Tablet 20 MEQ 40 MEQ PO (08:36)
[2020-12-14] MEDS: Folic Acid 1 MG Tablet PO (08:36)
--- NOTE | 2020-12-14 10:22 | CASEMGMT ---
Addendum entered by Margareth Fowler 12/15/20 14:31: Patient has new Direction Home Hand Drawer In Helper - [facility] - faxed her DC info Original Note: Social Work Notified [facility] of DC date 12/16. [facility] can provide PT/OT/ST. Notified [facility] of DC and faxed DC info. Left message with ALEXY Malik of DC and offered to send DC info. Plan: DC to [facility] 12/16 Margareth Fowler, SQL DATABASE PROGRAMMER DETECTIVE SERGEANT
[2020-12-14 11:06] LABS: Bedside Glucose 194 mg/dL (70-110)
[2020-12-14] MEDS: Insulin Lispro 100 UNIT/ML INSULN.PEN SC ×2 (11:40→17:27)
[2020-12-14] MEDS: Prenatal Vits Tablet 1 TABLET PO (11:41)
[2020-12-14 14:52] VITALS: BP 125/56; PULSE 58; RESP 14; TEMP 36.4; O2SAT 100
[2020-12-14 16:35] LABS: Bedside Glucose 110 mg/dL (70-110)
[2020-12-14] MEDS: Ranolazine 500 MG Tablet 1000 MG PO (17:27)
[2020-12-14] MEDS: Isosorbide Mononitrate 30 MG Tablet PO (17:27)
[2020-12-14] MEDS: Acetaminophen 325 MG Tablet 650 MG PO (20:28)
[2020-12-14] MEDS: Pravastatin 80 MG Tablet PO (20:29)
[2020-12-14 20:42] VITALS: PULSE 72; RESP 16; O2SAT 100
[2020-12-14 21:46] LABS: Bedside Glucose 161 mg/dL (70-110)
[2020-12-15 05:00] VITALS: BP 112/40; PULSE 62; RESP 16; TEMP 36.7; O2SAT 99
[2020-12-15 05:49] LABS: Absolute Lymphocyte Count 1.19 X10^3/uL (0.83-4.51); Absolute Neutrophil Count 2.1 X10^3/uL (2.0-7.7); Basophil# 0.03 X10^3/uL; Basophil% 0.8 % (0-1); Eosinophil# 0.15 X10^3/uL; Eosinophils% 4.1 % (0-5); Hematocrit 32.2 % (37-47); Hemoglobin 10.1 g/dL (12.0-15.0); Lymphocyte # 1.19 X10^3/ul (0.83-4.51); Lymphocyte % 32.8 % (19-41); Mean Corp Hgb Conc 31.4 g/dL (32-36); Mean Corpuscular Hgb 30.6 pg (27.0-32.0); Mean Corpuscular Volume 97.6 fL (81-99); Mean Platelet Vol. 9.9 fl (6.2-12.0); Monocyte# 0.18 X10^3/uL; NRBC Flagged by Analyzer 0 % (0-5); Neutrophil # 2.07 X10^3/uL (2.7-7.7); Platelet Count 122 K/mm3 (150-450); RBC Distribution Width CV 15.3 % (11.6-14.6); RBC Distribution Width SD 55.1 fl (35.1-43.9); White Blood Count 3.6 K/mm3 (4.4-11.0)
[2020-12-15 06:08] LABS: Anion Gap 5 (5-15); BUN 17 mg/dL (7-18); BUN/Creat Ratio 21.7 RATIO (10-20); Calcium,Total 8.6 mg/dL (8.5-10.1); Chloride 111 mmol/L (98-107); Creatinine, Serum 0.78 mg/dL (0.55-1.02); EST Glomerular Filtration Rate 75 mL/min (>60); Est Glom Filt Rate - Afr Amer 91 mL/min (>60); Glucose 73 mg/dL (74-106); Potassium 4.5 mmol/L (3.5-5.1); Sodium Level 140 mmol/L (136-145)
[2020-12-15] MEDS: Menthol/Lanolin/Calamine/Znox 113 GM Tube 1 APPLIC TOPICAL ×3 (06:44→23:36)
[2020-12-15 06:45] LABS: Bedside Glucose 72 mg/dL (70-110)
[2020-12-15] MEDS: Cholecalciferol (VIT D3) 25 MCG TABLET (1,000 UNITS) 125 MCG PO (06:46)
[2020-12-15] MEDS: Pantoprazole Sodium 40 MG Tablet PO (06:47)
[2020-12-15] MEDS: Levothyroxine 100 MCG Tablet PO (06:47)
[2020-12-15] MEDS: Potassium Chloride Oral Tablet 20 MEQ 40 MEQ PO (08:29)
[2020-12-15] MEDS: Folic Acid 1 MG Tablet PO (08:29)
[2020-12-15] MEDS: Carvedilol 3.125 MG TABLET PO ×2 (08:29→18:53)
[2020-12-15] MEDS: Aspirin 81 MG TAB.CHEW PO (08:29)
[2020-12-15 11:06] LABS: Bedside Glucose 122 mg/dL (70-110)
[2020-12-15 11:50] VITALS: PULSE 81; RESP 18; O2SAT 98
[2020-12-15] MEDS: Prenatal Vits Tablet 1 TABLET PO (12:04)
[2020-12-15] MEDS: Insulin Lispro 100 UNIT/ML INSULN.PEN SC (12:08)
--- NOTE | 2020-12-15 12:34 | CASEMGMT ---
Social Work IDT met patient and son via conference call for care plan meeting. Discussed patient's progress in therapy and nursing. Pt is doing well and scheduled to DC 12/16. All services in place and pt to get taxi for [facility]. Margareth Fowler, RESTAURANT EXPEDITOR SITE DAMAGE PREVENTION TECHNICIAN
--- NOTE | 2020-12-15 15:35 | CHAPLAIN ---
Type of Pastoral Visit _x__ Initial Visit ___ Follow-up Visit ___ On-call Visit ___ General Patient Visit ___ Spiritual Assessment ___ Family Conference ___ Bereavement ___ Rapid Response ___ Code Blue ___ Other (describe below) Pastoral Care Referral From _x__ Patient ___ Family ___ Nurse ___ Physician ___ [employer] ___ Adjunct Faculty Mathematics Department ___ Other (describe below) Sacrament/Intervention _x__ Active listening ___ Anointing ___ Church ___ Bereavement ___ Communion ___ [place] exploration ___ _x__ Life review _x__ Prayer ___ Reconciliation ___ Sacrament of Sick _x__ Supportive presence ___ Wedding ___ Other (describe below) Pastoral Comments
[2020-12-15] MEDS: Tuberculin,Purif.prot.deriv. 50 TU/ML Vial 5 ML ID (15:39)
[2020-12-15 15:45] VITALS: BP 118/44; PULSE 63; RESP 16; TEMP 37; O2SAT 100
[2020-12-15 16:35] LABS: Bedside Glucose 56 mg/dL (70-110)
[2020-12-15 16:55] LABS: Bedside Glucose 58 mg/dL (70-110)
[2020-12-15] MEDS: Ranolazine 500 MG Tablet 1000 MG PO (18:44)
[2020-12-15] MEDS: Isosorbide Mononitrate 30 MG Tablet PO (18:53)
[2020-12-15 19:41] LABS: Bedside Glucose 132 mg/dL (70-110)
[2020-12-15] MEDS: Pravastatin 80 MG Tablet PO (23:36)
[2020-12-15 23:50] LABS: Bedside Glucose 85 mg/dL (70-110)
[2020-12-16 05:00] VITALS: BP 128/59; PULSE 67; RESP 16; TEMP 35.9
[2020-12-16] MEDS: Levothyroxine 100 MCG Tablet PO (05:38)
[2020-12-16] MEDS: Ranolazine 500 MG Tablet 1000 MG PO (05:38)
[2020-12-16] MEDS: Menthol/Lanolin/Calamine/Znox 113 GM Tube 1 APPLIC TOPICAL (05:38)
[2020-12-16] MEDS: Pantoprazole Sodium 40 MG Tablet PO (05:38)
[2020-12-16] MEDS: Cholecalciferol (VIT D3) 25 MCG TABLET (1,000 UNITS) 125 MCG PO (05:38)
[2020-12-16 06:41] LABS: Bedside Glucose 82 mg/dL (70-110)
[2020-12-16] MEDS: Carvedilol 3.125 MG TABLET PO (08:08)
[2020-12-16] MEDS: Aspirin 81 MG TAB.CHEW PO (08:08)
--- NOTE | 2020-12-16 08:10 | NURSING ---
PT GOING HOME THIS AM AND DOES NOT WANT HER POTASSIUM AND FOLIC ACID UNTIL LATER WHEN SHE GETS HOME.
[2020-12-16 09:21] VITALS: PULSE 78; RESP 18; O2SAT 95
--- NOTE | 2020-12-20 12:54 | MDS.RN ---
Information for the mds was obtained from review of the clinical record, interview of resident, staff, and direct observation of resident's care.
== END 2020-12-16 09:30 | disposition home health service (06) | DRG 281 ==
PROVIDERS: Admitting Provider Family Medicine Geriatric Medicine; PCP Internal Medicine; Visit Provider Family Medicine Geriatric Medicine
DX: I21.4 Non-ST elevation (NSTEMI) myocardial infarction (principal); I50.32 Chronic diastolic (congestive) heart failure; E78.5 Hyperlipidemia, unspecified; E11.9 Type 2 diabetes mellitus without complications; I11.0 Hypertensive heart disease with heart failure; K21.9 Gastro-esophageal reflux disease without esophagitis; D64.9 Anemia, unspecified; R41.0 Disorientation, unspecified; E66.9 Obesity, unspecified; K75.81 Nonalcoholic steatohepatitis (NASH); Z68.30 Body mass index [BMI] 30.0-30.9, adult; E03.9 Hypothyroidism, unspecified; I25.10 Atherosclerotic heart disease of native coronary artery without angina pectoris; Z79.82 Long term (current) use of aspirin; Z79.4 Long term (current) use of insulin; Z79.899 Other long term (current) drug therapy
CPT/HCPCS: 36415; 80048; 82962; 85014; 85018; 85025; 86920; 86922; 87426; 87635; 92507; 92523; 92526; 92610; 97110; 97116; 97162; 97166; 97530; 97535; U0002

== ENCOUNTER → 2020-12-09 07:55 | Outpatient (CLI) | payer MEDICARE, MEDICAID, SELFPAY ==
[2020-12-07 15:03] VITALS: BMI 30.9
[2020-12-09] VITALS (7 sets, daily range): BP systolic 109–133; BP diastolic 42–69; PULSE 61–66; RESP 16; TEMP 36.6–36.8; O2SAT 99–100; BMI 30.8
[2020-12-09] MEDS: 0.9% NaCl Peripheral Flush Adult/Peds IV ×3 (10:30→17:12)
[2020-12-09] MEDS: Furosemide 20 MG/2 ML VIAL IV (13:57)
[2020-12-09 18:41] LABS: Bedside Glucose 175 mg/dL (70-110)
== END ==
LOC: MEDOUTP 07:55
PROVIDERS: PCP Internal Medicine; Referring Provider Family Medicine Geriatric Medicine; Visit Provider Family Medicine Geriatric Medicine
DX: D64.9 Anemia, unspecified (principal)
CPT/HCPCS: 36430; 82962; 86850; 86900; 86901; 86920; 86922; J7040; P9016; A4216; J1940

== ENCOUNTER 2021-01-04 11:30 | Inpatient (IN) | payer MEDICARE, MEDICAID, SELFPAY ==
[2020-12-17 09:46] VITALS: BMI 33.7
[2021-01-04] VITALS (9 sets, daily range): BP systolic 107–137; BP diastolic 55–66; PULSE 75–90; RESP 16–20; TEMP 36–36.8; O2SAT 97–100; BMI 35.5; BMI 34.8
--- NOTE | 2021-01-04 11:35 | EKG12_ITS ---
Test Reason : SOB Blood Pressure : / mmHG Vent. Rate : 089 BPM Atrial Rate : 089 BPM P-R Int : 204 ms QRS Dur : 108 ms QT Int : 406 ms P-R-T Axes : 089 -26 111 degrees QTc Int : 493 ms Normal sinus rhythm ST & T wave abnormality, consider lateral ischemia Poor R wave progression Abnormal ECG Confirmed by JUAN ALBERTO CHEW, RC ([id number]), writer editor LAURIE MCCLELLAND ([id number]) on 01/06/2021 12:25:21 PM Referred By: FRANK Confirmed By:RC AVENDANO MD
--- NOTE | 2021-01-04 11:52 | EX.ED.DYSGE1 ---
HPI History of Present Illness Chief Complaint: Shortness of Breath Narrative Narrative: Worsening shortness of breath and leg edema. The patient was seen by her physician Dr. Guardado today in the office she had labored respirations, worsening increased lower extremity edema to the point she could not function physicians were concerned that somehow her medications at long-term were altered to where her diuretics were stopped the patient states she is simply extremely short of breath with any type of activity no cough no fever her legs are potentially twice that they are normal size she is passing stool and gas and urine she denies any other complaints she does not know what her medications are as the nurses at long-term give her her meds in [facility] Medical History Anemia Atherosclerotic heart disease [place] coronary artery w/angina pectoris Chronic diastolic (congestive) heart failure Diabetes mellitus, type II Essential hypertension GI bleed (05/07/20) History of non-ST elevation myocardial infarction (NSTEMI) (03/26/20) Hyperlipidemia Hypothyroidism Lactic acidosis 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) Mitral valve insufficiency Non-rheumatic aortic stenosis Non-rheumatic mitral regurgitation Nonrheumatic tricuspid valve regurgitation NSTEMI (non-ST elevated myocardial infarction) Obesity (BMI 30.0-34.9) Pancytopenia Postoperative haemorrhage Schizophrenia Thrombocytopenia Tricuspid valve insufficiency Home Medications aspirin 81 mg PO DAILY@0800 06/30/17 [History Last Taken 11/29/20] ascorbic acid (vitamin C) 500 mg tablet 500 mg PO DAILY 09/13/18 [History Last Taken 11/29/20] insulin glargine U-300 conc 34 unit SC DAILY 04/23/19 [History Last Taken 11/30/20] cholecalciferol (vitamin D3) 5,000 unit PO DAILY 06/24/19 [History Last Taken 11/29/20] levothyroxine 100 mcg PO DAILY 07/24/19 [History Last Taken 11/30/20] folic acid 1 mg PO DAILY 02/10/20 [History Last Taken 11/30/20] insulin regular human 5 unit SQ TIDCM 02/10/20 [History Last Taken 11/30/20] mirabegron 25 mg tablet,extended release 24 hr 25 mg PO DAILY 06/17/20 [History Last Taken 11/30/20] pantoprazole 40 mg PO DAILY 10/20/20 [History Last Taken 11/30/20] haloperidol 1 mg PO BID PRN 11/13/20 [History Last Taken Unknown] albuterol sulfate 2 puff INHALATION Q4H PRN PRN 11/14/20 [History Last Taken Unknown] polyethylene glycol 3350 17 gm PO PRN PRN 11/14/20 [History Last Taken Unknown] acetaminophen [Tylenol] 650 mg PO Q6H PRN PRN #1 tab 12/05/20 [Rx Last Taken Unknown] bisacodyl 5 mg PO DAILY PRN #1 tab 12/05/20 [Rx Last Taken Unknown] aspirin 81 mg tablet,delayed release 81 mg PO DAILY #30 tab 12/17/20 [Rx Last Taken Unknown] carvedilol 3.125 mg tablet 3.125 mg PO BID #60 tab 12/17/20 [Rx Last Taken Unknown] furosemide 40 mg tablet 40 mg PO DAILY #30 tab 12/17/20 [Rx Last Taken Unknown] isosorbide mononitrate 30 mg tablet,extended release 24 hr 30 mg PO DINNER #30 tab 12/17/20 [Rx Last Taken Unknown] nitroglycerin 0.4 mg sublingual tablet 0.4 mg SUBLINGUAL PRN PRN #25 tab 12/17/20 [Rx Last Taken Unknown] potassium chloride 20 mEq tablet,extended release(part/cryst) 40 meq PO DAILY #60 tab 12/17/20 [Rx Last Taken Unknown] pravastatin 80 mg tablet 80 mg PO DAILY #30 tab 12/17/20 [Rx Last Taken Unknown] ranolazine 1,000 mg tablet,extended release,12 hr 1,000 mg PO BID #60 tab 12/17/20 [Rx Last Taken Unknown] Allergy/AdvReac Type Severity Reaction Status Date / Time aripiprazole [From Abilify] Allergy Intermediate it over Verified 01/04/21 11:31 powered me lisinopril Allergy Intermediate Unknown Verified 01/04/21 11:31 atorvastatin calcium AdvReac Unknown Verified 01/04/21 11:31 [From Lipitor] rosiglitazone maleate AdvReac Other Verified 01/04/21 11:31 [From Avandia] Family History Mother CAD (coronary artery disease) Father CAD (coronary artery disease) Surgical History History of appendectomy History of cholecystectomy History of colonoscopy (04/2020) History of coronary artery stent placement (08/20/18) History of esophagogastroduodenoscopy (EGD) (04/2020) History of left heart catheterization (06/25/19) History of spinal fusion History of tonsillectomy and adenoidectomy Social History housing: long-term Smoking Status: Never smoker alcohol intake: current details: occasional substance use type: does not use diet: low salt caffeine: No what type of physical activity do you participate in: walking frequency: daily seatbelt use: always do you feel safe at home: Yes ROS ROS ED ROS Narrative Shortness of breath and lower extremity edema Constitutional Constitutional ED: Reports subjective, sweats and other; Denies chills, fever(s) or weight loss Eyes Eyes: Denies blurry vision or change in vision ENT ENT ED: Denies ear pain Cardiovascular Cardiovascular: Denies chest pain or palpitations Respiratory/Chest Respiratory/Chest: Reports dyspnea Gastrointestinal Gastrointestinal: Denies abdominal pain, nausea or vomiting Genitourinary Genitourinary ED: Denies dysuria or hematuria Musculoskeletal Musculoskeletal: Denies arthralgias or myalgias Integumentary Reports rash; Denies abscess Neurologic Neurologic: Denies weakness Psychiatric Psychiatric: Denies anxiety or depression Endocrine Endocrinology: Denies polydipsia or polyuria Allergic/Immunologic Allergic/Immunologic ED: Denies urticaria EXAM Physical Exam Const Vital Signs: 01/04/21 11:32 01/04/21 11:50 01/04/21 11:52 Temperature 96.8 F L Temperature Source Temporal Pulse Rate 88 Respiratory Rate 16 Respiratory Effort Short of Breath Respiratory Depth Shallow Respiratory Pattern Normal Blood Pressure 115/55 L Blood Pressure Mean 75 Pulse Ox 98 100 Oxygen Delivery Method Room Air Room Air Nasal Cannula Oxygen Flow Rate (L/min) 2 Positive well developed General Appearance ED: well developed HEENT Reports normocephalic Negative for trauma Eyes EOMs intact bilaterally Neck supple Chest Wall inspection of chest normal Resp normal respiratory effort Auscultation: diminished lung sounds Cardio regular rate GI non-tender and non-distended Back/Spine Back/Spine Narrative: unremarkable Extremity normal to inspection Extremity Narrative: 4-5+ edema with some early blisters to both lower extremities bilateral General Extremety ED: Yes edema General Extremity: edema Neuro oriented x3 and CN's II-XII intact bilaterally Sensorium / Orientation: alert Psych mental status grossly normal Skin no rashes or lesions noted MDM MDM MDM Narrative Medical decision making narrative: EKG shows a sinus rhythm rate 89 no acute injury pattern nonspecific changes, given her complaints given all the above given the phone call received from her physicians will begin diuretic therapy and discuss with hospitalist for admission further management her recent hemoglobin was 8.6 her physicians would like her transfused after she is more stable and after she diuresis will relay that information to her hospitalist team Patient is one view chest x-ray shows potential pleural effusion see radiologist review hemoglobin is 8 BNP noted, her troponins elevated is chronically elevated, she received IV Lasix spoke with the hospitalist given all the above will arrange for admission Admit stable Final impression congestive heart failure fluid overload Lab Data Labs: Laboratory Results - last 24 hr 01/04/21 01/04/21 01/04/21 12:35 12:35 12:35 WBC 3.2 L RBC 2.56 L Hgb 8.0 L Hct 25.7 L MCV 100.4 H MCH 31.3 MCHC 31.1 L RDW Std Deviation 58.7 H RDW Coeff of [place]ch[place] 15.9 H Plt Count 133 L MPV 9.9 Immature Gran % (Auto) 0.600 Neut % (Auto) 68.9 Lymph % (Auto) 21.2 [place] % (Auto) 6.2 Eos % (Auto) 2.5 Baso % (Auto) 0.6 Absolute Neuts (auto) 2.2 Absolute Lymphs (auto) 0.68 L Nucleated RBC % 0 Sodium 142 Potassium 4.1 Chloride 108 H Carbon Dioxide 30.0 Anion Gap 4 L BUN 26 H Creatinine 0.99 Estim Creat Clear Calc 41.72 Est GFR (MDRD) Af Amer 69 Est GFR (MDRD) Non-Af 57 L BUN/Creatinine Ratio 26.2 H Glucose 202 H Calcium 9.2 Troponin I 0.316 H B-Natriuretic Peptide 501.2 H Radiography Diagnostic Testing: Radiology Impression Chest X-Ray 01/04/21 12:35 IMPRESSION: Poor inspiration with some bibasilar atelectasis. Electronically Signed: Marshal Jiménez MD at 12:51 EDT Tel , Service support , Discharge Plan Triage Chief Complaint: Shortness of Breath ED Provider: Cindy Mccloud Dx/Rx/DC Orders Prescriptions: No Action ascorbic acid (vitamin C) 500 mg tablet 500 mg PO DAILY RF: 0 mirabegron 25 mg tablet extended release 24 hr 25 mg PO DAILY RF: 0 nitroglycerin 0.4 mg tablet, sublingual 0.4 mg sublingual PRN PRN (Reason: CHEST PAIN) Qty: 25 RF: 3 ranolazine 1,000 mg tablet extended release 12 hr 1,000 mg PO BID Qty: 60 RF: 11 pravastatin 80 mg tablet 80 mg PO DAILY Qty: 30 RF: 11 carvedilol 3.125 mg tablet 3.125 mg PO BID Qty: 60 RF: 11 aspirin [Adult Low Dose Aspirin] 81 mg tablet,delayed release (DR/EC) 81 mg PO DAILY Qty: 30 RF: 11 furosemide [Lasix] 40 mg tablet 40 mg PO DAILY Qty: 30 RF: 11 isosorbide mononitrate 30 mg tablet extended release 24 hr 30 mg PO DINNER Qty: 30 RF: 11 potassium chloride 20 mEq tablet,ER particles/crystals 40 meq PO DAILY Qty: 60 RF: 11 aspirin 81 MG tablet,chewable 81 mg PO DAILY@0800 RF: 0 insulin glargine U-300 conc 300/ML insulin pen 34 unit SC DAILY RF: 0 cholecalciferol (vitamin D3) 5,000 UNIT capsule 5,000 unit PO DAILY RF: 0 levothyroxine 100 MCG tablet 100 mcg PO DAILY RF: 0 insulin regular human 100 UNIT/ML solution 5 unit SQ TIDCM RF: 0 folic acid 1 MG tablet 1 mg PO DAILY RF: 0 pantoprazole 40 MG tablet 40 mg PO DAILY RF: 0 haloperidol 1 MG tablet 1 mg PO BID PRN (Reason: Nausea) RF: 0 polyethylene glycol 3350 17 GM packet 17 gm PO PRN PRN (Reason: Constipation) RF: 0 albuterol sulfate 1 PUFF inhaler 2 puff INHALATION Q4H PRN PRN (Reason: SOB/WHEEZING) RF: 0 acetaminophen [Tylenol] 325 mg Tablet 650 mg PO Q6H PRN PRN (Reason: Pain Score 1-10/Temp > 100.7 F) Qty: 1 RF: 0 bisacodyl 5 mg Tablet,Delayed Release (Dr/Ec) 5 mg PO DAILY PRN (Reason: constipation) Qty: 1 RF: 0 Primary Care Provider: Diana Cohen
[2021-01-04] MEDS: Furosemide 40 MG/4 ML Vial IV ×2 (12:00→17:07)
--- NOTE | 2021-01-04 12:35 | RAD_ITS ---
STUDY: X-RAY CHEST REASON FOR EXAM: Female, 80 years old. sob TECHNIQUE: Single AP portable view of the chest. COMPARISON: 10/20/2020 FINDINGS: Poor inspiration with some bibasilar atelectasis. There is no demonstrated pleural abnormality. There is moderate cardiac enlargement. Normal mediastinum and rell. Normal visualized pulmonary arteries. Normal visualized aortic arch and descending thoracic aorta. Normal visualized thoracic spine. Normal visualized ribs, clavicles, and shoulders. There is no demonstrated abnormality of the visualized soft tissue structures of the upper abdomen. RAD/Chest 1 View (Portable) IMPRESSION: Poor inspiration with some bibasilar atelectasis. Electronically Signed: Marshal Jiménez MD at 12:51 EDT Tel , Service support ,
[2021-01-04 12:45] LABS: Absolute Lymphocyte Count 0.68 X10^3/uL (0.83-4.51); Absolute Neutrophil Count 2.2 X10^3/uL (2.0-7.7); Basophil# 0.02 X10^3/uL; Basophil% 0.6 % (0-1); Eosinophil# 0.08 X10^3/uL; Eosinophils% 2.5 % (0-5); Hematocrit 25.7 % (37-47); Lymphocyte # 0.68 X10^3/ul (0.83-4.51); Lymphocyte % 21.2 % (19-41); Mean Corp Hgb Conc 31.1 g/dL (32-36); Mean Corpuscular Hgb 31.3 pg (27.0-32.0); Mean Corpuscular Volume 100.4 fL (81-99); Mean Platelet Vol. 9.9 fl (6.2-12.0); Monocyte% 6.2 % (0-10); NRBC Flagged by Analyzer 0 % (0-5); Neutrophil # 2.21 X10^3/uL (2.7-7.7); Neutrophil % 68.9 % (47-70); Platelet Count 133 K/mm3 (150-450); RBC Distribution Width CV 15.9 % (11.6-14.6); RBC Distribution Width SD 58.7 fl (35.1-43.9); Red Blood Count 2.56 M/mm3 (4.2-5.4); White Blood Count 3.2 K/mm3 (4.4-11.0)
[2021-01-04 13:07] LABS: Anion Gap 4 (5-15); BUN 26 mg/dL (7-18); BUN/Creat Ratio 26.2 RATIO (10-20); Calcium,Total 9.2 mg/dL (8.5-10.1); Chloride 108 mmol/L (98-107); Creatinine, Serum 0.99 mg/dL (0.55-1.02); EST Glomerular Filtration Rate 57 mL/min (>60); Est Glom Filt Rate - Afr Amer 69 mL/min (>60); Estimated Creatinine Clearance 41.72 ml/min; Glucose 202 mg/dL (74-106); Potassium 4.1 mmol/L (3.5-5.1); Sodium Level 142 mmol/L (136-145)
[2021-01-04 13:13] LABS: BNP,B-Type NATRIURETIC PEPTIDE 501.2 pg/mL (0-100)
--- NOTE | 2021-01-04 13:22 | PCM.HP.STD ---
HPI - General General Date of Admission: 01/04/21 Date of Service: 01/04/21 Chief Complaint: Dyspnea, worsening edema, weight gain, orthopnea. HPI Narrative The patient is an 80 y/o F residing at [facility] w/ PMHx: CHENEY w/ Liver Cirrhosis, Chronic anemia w/ Hx 05/2020 GI bleed, HTN, HLD, Hypothyroidism, Obesity, Schizophrenia, GERD, Diabetes melliutus type II, Chronic Diastolic CHF, CAD w/ Chronic angina s/p extensive PTCA/stenting procedures requiring transfer to [facility] when needed who now presents to the [facility] ED on 01/04/21 with history of recent evaluation per her PCP Dr. Cohen with worsening BL LE edema above baseline and noted increased work of breathing with weight gain as well as orthopnea with no chest pain, lightheadedness or dizziness associated prompting ED evaluation for CHF exacerbation concerns. Work-up in the ED included T 96.8 temporally, heart rate 88, BP 115/55, respiratory rate 16, 100% on 2 L nasal cannula and prior to this 98% on room air, CBC with WBC 3.2, hemoglobin 8, platelet 133 with lymphopenia, BMP with chloride 108, BUN/creatinine 26/0.99, glucose 202, troponin 0.316 last noted 11/30/2020 2.550 and prior to this has been chronically elevated in the 0.1-0.2 range, BNP 501.2, chest x-ray with poor inspiratory effort with some bibasilar atelectasis. In the ED patient administered lasix 40 mg IV x 1. Per ED physician Dr. Cohen requested patient be administered PRBC while hospitalized if appropriate pending repeat Hgb following diuresis. [facility] Medical History (Updated 01/04/21 @ 14:[address] 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) Mitral valve insufficiency Non-rheumatic aortic stenosis Non-rheumatic mitral regurgitation Nonrheumatic tricuspid valve regurgitation NSTEMI (non-ST elevated myocardial infarction) Obesity (BMI 30.0-34.9) Osteopenia Pancytopenia Postoperative haemorrhage Schizophrenia Thrombocytopenia Tricuspid valve insufficiency Home Medications aspirin 81 mg PO DAILY@0800 06/30/17 [History Last Taken 01/03/21] ascorbic acid (vitamin C) 500 mg tablet 500 mg PO DAILY 09/13/18 [History Last Taken 01/04/21] insulin glargine U-300 conc 34 unit SC DAILY 04/23/19 [History Last Taken 01/04/21] cholecalciferol (vitamin D3) 5,000 unit PO DAILY 06/24/19 [History Last Taken 01/04/21] levothyroxine 100 mcg PO DAILY 07/24/19 [History Last Taken 01/04/21] folic acid 1 mg PO DAILY 02/10/20 [History Last Taken 01/04/21] insulin regular human 5 unit SQ TIDCM 02/10/20 [History Last Taken 01/04/21] mirabegron 25 mg tablet,extended release 24 hr 25 mg PO DAILY 06/17/20 [History Last Taken 01/04/21] pantoprazole 40 mg PO DAILY 10/20/20 [History Last Taken 01/04/21] haloperidol 1 mg PO BID PRN 11/13/20 [History Last Taken Unknown] albuterol sulfate 2 puff INHALATION Q4H PRN PRN 11/14/20 [History Last Taken Unknown] polyethylene glycol 3350 17 gm PO PRN PRN 11/14/20 [History Last Taken Unknown] acetaminophen [Tylenol] 650 mg PO Q6H PRN PRN #1 tab 12/05/20 [Rx Last Taken 12/30/20] bisacodyl 5 mg PO DAILY PRN #1 tab 12/05/20 [Rx Last Taken Unknown] carvedilol 3.125 mg tablet 3.125 mg PO BID #60 tab 12/17/20 [Rx Last Taken 01/04/21] furosemide 40 mg tablet 40 mg PO DAILY #30 tab 12/17/20 [Rx Last Taken 01/04/21] isosorbide mononitrate 30 mg tablet,extended release 24 hr 30 mg PO DINNER #30 tab 12/17/20 [Rx Last Taken 01/03/21] nitroglycerin 0.4 mg sublingual tablet 0.4 mg SUBLINGUAL PRN PRN #25 tab 12/17/20 [Rx Last Taken Unknown] pravastatin 80 mg tablet 80 mg PO DAILY #30 tab 12/17/20 [Rx Last Taken 01/04/21] potassium chloride 40 meq PO DAILY 01/04/21 [History Last Taken 01/04/21] vit-iron fum-folic ac [ Tablet] 1 tab PO DAILY 01/04/21 [History Last Taken 01/04/21] ranolazine 1,000 mg PO BID 01/04/21 [History Last Taken 01/04/21] Allergy/AdvReac Type Severity Reaction Status Date / Time aripiprazole [From [facility]] Allergy lethargy Verified 01/04/21 14:45 rosiglitazone Allergy unknown Verified 01/04/21 14:40 lisinopril AdvReac Intermediate gi upset Verified 01/04/21 14:40 atorvastatin AdvReac intolerance Verified 01/04/21 14:40 environmental AdvReac Other Uncoded 01/04/21 14:40 Family History Mother CAD (coronary artery disease) Father CAD (coronary artery disease) Surgical History History of appendectomy History of cholecystectomy History of colonoscopy (04/2020) History of coronary artery stent placement (08/20/18) History of esophagogastroduodenoscopy (EGD) (04/2020) History of left heart catheterization (06/25/19) History of spinal fusion History of tonsillectomy and adenoidectomy Social History housing: longterm Smoking Status: Never smoker alcohol intake: current details: occasional substance use type: does not use diet: low salt caffeine: No what type of physical activity do you participate in: walking frequency: daily seatbelt use: always do you feel safe at home: Yes ROS ROS Narrative Admission Review of Systems: CONSTITUTIONAL: No weight loss, fever, chills, + weakness or fatigue. HEENT: Eyes: No visual loss, blurred vision, double vision or yellow sclerae. Ears, Nose, Throat: No hearing loss, sneezing, congestion, runny nose or sore throat. SKIN: No rash or itching, lesions, wounds. CARDIOVASCULAR: + Edema, orthopnea. No chest pain, chest pressure or chest discomfort, palpitations, syncopal events. RESPIRATORY: + shortness of breath, No marked cough or sputum, wheezing, hemoptysis. GASTROINTESTINAL: No anorexia, nausea, vomiting or diarrhea, abdominal pain, melena, BRBPR. GENITOURINARY: No dysuria, frequency, urgency or retention. NEUROLOGICAL: No headache, dizziness, syncope, paralysis, ataxia, numbness or tingling in the extremities, focal weakness, change in bowel or bladder control, seizure. MUSCULOSKELETAL: + muscle, back pain, joint pain or stiffness. HEMATOLOGIC: + anemia, bleeding or bruising. LYMPHATICS: No enlarged nodes. No history of splenectomy. PSYCHIATRIC: +history of schizophrenia. ENDOCRINOLOGIC: No reports of sweating, cold or heat intolerance. No polyuria or polydipsia. ALLERGIES: No history of asthma, hives, eczema or rhinitis. Vital Signs Vital Signs Vital Signs: 01/04/21 11:32 01/04/21 11:50 01/04/21 11:52 Temperature 96.8 F L Temperature Source Temporal Pulse Rate 88 Respiratory Rate 16 Respiratory Effort Short of Breath Respiratory Depth Shallow Respiratory Pattern Normal Blood Pressure 115/55 L Blood Pressure Mean 75 Pulse Ox 98 100 Oxygen Delivery Method Room Air Room Air Nasal Cannula Oxygen Flow Rate (L/min) 2 Weight Weight: 220 lb 6.4 oz Body Mass Index (BMI) 35.5 Physical Exam Narrative Physical Examination: General: awake, alert, oriented x [address], recent events, month, remains cooperative, seated upright in the ED bed in no apparent distress but fatigued appearing. Skin: normal color, normal turgor, no icterus, no cyanosis except BL LE stasis skin changes. HEENT: AT/NC, EOMI, PERRLA, MMM, no carotid bruits, difficult to discern JVD given thickened neck. Lungs: Diminished BS BL, > bases, mildly increased effort w/ increased RR, no distress noted, mild rales bases, no ronchi or wheezing. Heart: Regular rate and rhythm; no gallop, rub audible. Abdomen: soft, obese, NTTP, ND, distant normal BS, no obvious HSM. Extremities: no cyanosis or clubbing, see skin, notable pedal to proximal knee 4+ pitting edema. Neurological: patient awake, alert, oriented as noted, cognitive function appears intact, does have underlying history of schizophrenia; pupils equally reactive to light and accommodation, cranial nerves II-XII grossly normal, moving all 4 extremities, no focal deficits, strength moderately to severely globally decreased secondary to acute presentation. Psychiatric: affect appears fatigued, no acute evidence of depressive or anxiety feelings, underlying schizophrenia. Lab / Micro Data Result Diagrams: 01/04/21 12:35 01/04/21 12:35 Labs: Laboratory Results - last 24 hr 01/04/21 01/04/21 01/04/21 12:35 12:35 12:35 WBC 3.2 L RBC 2.56 L Hgb 8.0 L Hct 25.7 L MCV 100.4 H MCH 31.3 MCHC 31.1 L RDW Std Deviation 58.7 H RDW Coeff of Conchis 15.9 H Plt Count 133 L MPV 9.9 Immature Gran % (Auto) 0.600 Neut % (Auto) 68.9 Lymph % (Auto) 21.2 Grand % (Auto) 6.2 Eos % (Auto) 2.5 Baso % (Auto) 0.6 Absolute Neuts (auto) 2.2 Absolute Lymphs (auto) 0.68 L Nucleated RBC % 0 Sodium 142 Potassium 4.1 Chloride 108 H Carbon Dioxide 30.0 Anion Gap 4 L BUN 26 H Creatinine 0.99 Estim Creat Clear Calc 41.72 Est GFR (MDRD) Af Amer 69 Est GFR (MDRD) Non-Af 57 L BUN/Creatinine Ratio 26.2 H Glucose 202 H Calcium 9.2 Troponin I 0.316 H B-Natriuretic Peptide 501.2 H Radiology Impression Chest X-Ray 01/04/21 12:35 IMPRESSION: Poor inspiration with some bibasilar atelectasis. Electronically Signed: Marshal Jiménez MD at 12:51 EDT Tel , Service support , Assessment & Plan Assessment/Plan (1) Acute exacerbation of CHF (congestive heart failure): QUALIFIERS: Heart failure type: diastolic Qualified Code(s): I50.33 - Acute on chronic diastolic (congestive) heart failure (2) Elevated troponin I level: (3) Anemia: QUALIFIERS: Anemia type: unspecified type Qualified Code(s): D64.9 - Anemia, unspecified PLAN: The patient is an 80 y/o F residing at [facility] w/ PMHx: CHENEY w/ Liver Cirrhosis, Chronic anemia w/ Hx 05/2020 GI bleed, HTN, HLD, Hypothyroidism, Obesity, Schizophrenia, GERD, Diabetes melliutus type II, Chronic Diastolic CHF, CAD w/ Chronic angina s/p extensive PTCA/stenting procedures requiring transfer to [facility] when needed who now presents to the [facility] ED on 01/04/21 with history of recent evaluation per her PCP Dr. Cohen with worsening BL LE edema above baseline and noted increased work of breathing with weight gain as well as orthopnea with no chest pain, lightheadedness or dizziness associated prompting ED evaluation for CHF exacerbation concerns. 1. Acute Decompensated Diastolic CHF with indeterminate cardiac enzyme, chronic component: Patient administered IV lasix in the ED, will admit to PCU, maintain on cardiac telemetry, obtain cardiac enzyme series, obtain serial EKGs, continue IV lasix diuresis, monitor I/Os, continue medical therapy, obtain magnesium level. Admission troponin 0 0.316 and is noted 11/30/2020 2.55 however has been chronically elevated ranging 0.1 to at least 0.2 previously. Will defer initiation of heparin drip or therapeutic Lovenox given patient's significant GI bleed history until further trend. Most recent ECHO noted 12/02/20 with segmental dysfunction with preserved EF, EF 55%, mildly enlarged LA, mild MVI, mild TVI, mild left ear, RVSP 30 mmHg with indeterminate diastolic function. PRN morphine to decrease afterload, continue oxygen supplementation, if necessary will position w/ upright position with legs off bed to decrease preload. If significant further rise of cardiac troponins may consider cardiology consultation. 2. CAD with chronic angina s/p extensive PTCA/stenting with as noted indeterminate cardiac enzyme, chronically: We will continue treatment and evaluation as noted above, will continue to cycle cardiac enzymes and if further rise may consider cardiology consultation although per history if significant concerns or need for cardiac catheterization would require transfer, continue aspirin, Coreg, isosorbide, statin, Ranexa therapy. 3. Chronic Pancytopenia, Anemia, macrocytic, Chronic thrombocytopenia, Chronic leukopenia: Admission hemoglobin 8, prior baseline appears primarily 7-9. Platelet admission count 133, baseline prior appears 100 130s, stable. Admission WBC 3.2, baseline prior appears primarily 2-3, stable. We will continue to trend CBC and if significant decrease upon repeat 01/05/2021 following overnight diuresis would plan PRBC administration which has specifically been requested by Dr. Akins to be performed prior to patient discharge given her tenuous transfusion history for overload. 4. CHENEY w/ Liver cirrhosis: Noted history, will continue lasix as noted currently IV, coreg, not on lactulose or spironolactone chronically per review of current list, clarifying. 5. Diabetes mellitus type II: Will continue home insulin regimen, ADA diet, accu checks w/ ISS. 6. Schizophrenia: Unclear specific type, will continue as needed Haldol regimen, maintain on fall precautions. 7. Hypertension: Continue home regimen including IV Lasix as noted, isosorbide, Coreg, PRN hydralazine. 8. Hyperlipidemia: Continue home statin regimen. AM FLP. 9. Hypothyroidism: Continue home synthroid regimen, TSH pending. 10. Obesity: Weight loss and lifestyle changes encouraged. 11. GERD w/ Hx GI Bleed: Will continue home PPI. 12. DVT prophylaxis: SCDs, cautiously lovenox. 13. CODE status: Patient currently denies having healthcare power of defense attorney or specific living will in place. Discussed CODE status at length including difference between FULL code, DNR-CCA and DNR-CC status. Following discussions about the differences in these status, requested Full Code status. Advanced Care Planning Face to Face Time: 16 minutes. Visit Charges Inpatient E&M: 01286 Init Hosp L3 Procedures Hospitalists Procedures: 60227 Advncd Care Plan 30 Min
--- NOTE | 2021-01-04 14:14 | NURSING ---
PCU WHITE ACUTE CHF FLUID OVERLOAD
[2021-01-04 14:24] LABS: Magnesium 2.2 mg/dL (1.6-2.6)
[2021-01-04] MEDS: Isosorbide Mononitrate 30 MG Tablet PO (17:07)
[2021-01-04] MEDS: Carvedilol 3.125 MG TABLET PO (17:07)
[2021-01-04] MEDS: Glucerna Shake 120 ML LIQUID PO ×2 (17:11→20:59)
[2021-01-04] MEDS: Insulin Lispro 100 UNIT/ML INSULN.PEN SC (17:12)
[2021-01-04 17:30] LABS: Bedside Glucose 131 mg/dL (70-110)
[2021-01-04] MEDS: Acetaminophen 325 MG Tablet 650 MG PO (20:58)
[2021-01-04] MEDS: Ranolazine 500 MG Tablet 1000 MG PO (21:05)
[2021-01-04] MEDS: 0.9% Saline Lock 10 ML Syringe IV (21:07)
[2021-01-04 21:15] LABS: Bedside Glucose 77 mg/dL (70-110)
[2021-01-04] MEDS: Pravastatin 80 MG Tablet PO (21:49)
[2021-01-05] VITALS (10 sets, daily range): BP systolic 97–114; BP diastolic 48–60; PULSE 72–86; RESP 16–18; TEMP 36.8–37.1; O2SAT 95–100
[2021-01-05 03:01] LABS: Bedside Glucose 101 mg/dL (70-110)
[2021-01-05] MEDS: Levothyroxine 100 MCG Tablet PO (05:33)
[2021-01-05 06:22] LABS: Absolute Neutrophil Count 2.4 X10^3/uL (2.0-7.7); Basophil# 0.02 X10^3/uL; Basophil% 0.5 % (0-1); Hematocrit 24.2 % (37-47); Hemoglobin 7.6 g/dL (12.0-15.0); Lymphocyte % 27.6 % (19-41); Mean Corp Hgb Conc 31.4 g/dL (32-36); Mean Corpuscular Hgb 31.4 pg (27.0-32.0); Mean Platelet Vol. 9.8 fl (6.2-12.0); Monocyte# 0.31 X10^3/uL; Monocyte% 7.8 % (0-10); NRBC Flagged by Analyzer 0 % (0-5); Neutrophil # 2.35 X10^3/uL (2.7-7.7); Neutrophil % 59.1 % (47-70); Platelet Count 128 K/mm3 (150-450); RBC Distribution Width CV 16.2 % (11.6-14.6); RBC Distribution Width SD 58.6 fl (35.1-43.9); Red Blood Count 2.42 M/mm3 (4.2-5.4)
[2021-01-05 06:59] LABS: ALB/GLOB Ratio 0.8 RATIO (0.9-2.4); AST(SGOT) 28 U/L (15-37); Alanine Aminotransfer ALT/SGPT 19 U/L (13-56); Albumin, Serum 2.6 g/dL (3.2-5.0); Alkaline Phosphatase 92 U/L (45-117); Anion Gap 5 (5-15); BUN 28 mg/dL (7-18); Calcium,Total 8.6 mg/dL (8.5-10.1); Chloride 107 mmol/L (98-107); Cholesterol 116 mg/dL (200); Creatinine, Serum 0.85 mg/dL (0.55-1.02); EST Glomerular Filtration Rate 68 mL/min (>60); Est Glom Filt Rate - Afr Amer 83 mL/min (>60); Estimated Creatinine Clearance 48.59 ml/min; Globulin 3.4 g/dL (2.2-4.2); Glucose 98 mg/dL (74-106); High Density Lipoprotein 48 mg/dL; Potassium 3.9 mmol/L (3.5-5.1); Sodium Level 142 mmol/L (136-145); Thyroid Stim Hormone (TSH) 7.48 uIU/mL (0.358-3.74); Triglycerides 80 mg/dL; Very Low Density Lipoprotein 16 mg/dL (5-40)
[2021-01-05] MEDS: Insulin Lispro 100 UNIT/ML INSULN.PEN SC ×2 (08:28→11:23)
[2021-01-05] MEDS: Folic Acid 1 MG Tablet PO (08:29)
[2021-01-05] MEDS: Cholecalciferol (VIT D3) 25 MCG TABLET (1,000 UNITS) 125 MCG PO (08:29)
[2021-01-05] MEDS: Carvedilol 3.125 MG TABLET PO ×2 (08:29→17:18)
[2021-01-05] MEDS: Mirabegron 25 MG TAB.ER.24H PO (08:30)
[2021-01-05] MEDS: Potassium Chloride Oral Tablet 20 MEQ 40 MEQ PO (08:30)
[2021-01-05] MEDS: Aspirin E.C. 81 MG Tablet PO (08:30)
[2021-01-05] MEDS: Pantoprazole Sodium 40 MG Tablet PO (08:30)
[2021-01-05] MEDS: Ranolazine 500 MG Tablet 1000 MG PO ×2 (08:30→21:56)
[2021-01-05] MEDS: Enoxaparin 40 MG/0.4 ML Syringe SC (08:31)
[2021-01-05] MEDS: Furosemide 40 MG/4 ML Vial IV ×2 (08:38→17:19)
[2021-01-05] MEDS: 0.9% Saline Lock 10 ML Syringe IV ×3 (08:40→20:40)
[2021-01-05 08:53] LABS: Bedside Glucose 102 mg/dL (70-110)
--- NOTE | 2021-01-05 10:34 | CASEMGMT ---
Addendum entered by Joyce Diego 01/05/21 10:42: Per last visit, pt is active with [facility] and has a CM, Galilea, thru [facility]. Sameera BORJAS updated, voices understanding. Rolando TREVINO CM Original Note: Readmission chart review: Pt was initially admitted 11/30-12/07/20 for Encephalopathy, Elevated troponins. Pt was from [facility]. Pt was discharged to TCU at that time. Pt was released from TCU on 12/16/20 back to [facility] with their therapy set up. Pt returned to [facility] ED on 01/04/21 for SOB, bilat lower leg edema. Pt was admitted for Acute CHF exacerbation. Pt placed on iv lasix and is currently on 2L nc. CM to follow for PT/OT evals and any further discharge planning/needs. Sameera BORJAS is aware pt from assisted living, voices understanding. Rolando TREVINO CM
[2021-01-05 11:56] LABS: Bedside Glucose 102 mg/dL (70-110)
--- NOTE | 2021-01-05 12:31 | CASEMGMT ---
Addendum entered by Gissell Cheek 01/05/21 13:43: SW received a call back from [facility], she is just reviewing the paperwork SW sent over. SW will continue to update [facility], to see if pt will be able to return at discharge. LIA Matthews Original Note: Pt is here from [facility]. Pt is also active with [facility]. SW called, confirmed pt is still active with [facility](phone: [phone], fax [phone]). They would like discharge instructions/summary upon discharge. SW called [facility], message left and updates faxed. SW called [facility], message left that pt is here, Galilea Ndiaye is pt's adult protective caseworker. SW attempted to speak w/pt, she is sleeping soundly. SW will continue to follow. LIA Matthews
--- NOTE | 2021-01-05 12:33 | PN.HOSP_ITS ---
Documented by User: Wagner SRINIVASAN 01/05/21 12:56 Subjective Subjective Patient is an 80-year-old female comfortably resting in bed, alert and oriented x3. Patient reports improvement in shortness of breath from admission. Denies chest pain, palpitations, hemoptysis, sputum production, fever, chills, N/V/D. Objective Data Objective Data Vital Signs: Vital Signs Temp Pulse Resp BP Pulse Ox 98.2 F 82 18 114/59 L 96 01/05/21 08:30 01/05/21 08:30 01/05/21 08:30 01/05/21 08:30 01/05/21 08:30 Oxygen Flow Rate (L/min) 2 Oxygen Delivery Method Nasal Cannula Weight: 212 lb 15.465 oz Body Mass Index (BMI) 34.8 Intake & Output: Intake and Output for Last 24 Hours 01/03/21 01/04/21 01/05/21 23:59 23:59 23:59 Intake Total 960 / 960 420 / 420 Output Total 1450 / 1450 450 / 450 Balance -490 / -490 -30 / -30 Lab / Micro Data Result Diagrams: 01/05/21 06:10 01/05/21 06:10 Labs: Laboratory Results - last 24 hr 01/04/21 01/04/21 01/04/21 12:35 12:35 12:35 WBC 3.2 L RBC 2.56 L Hgb 8.0 L Hct 25.7 L MCV 100.4 H MCH 31.3 MCHC 31.1 L RDW Std Deviation 58.7 H RDW Coeff of Conchis 15.9 H Plt Count 133 L MPV 9.9 Immature Gran % (Auto) 0.600 Neut % (Auto) 68.9 Lymph % (Auto) 21.2 Ocean % (Auto) 6.2 Eos % (Auto) 2.5 Baso % (Auto) 0.6 Absolute Neuts (auto) 2.2 Absolute Lymphs (auto) 0.68 L Nucleated RBC % 0 Sodium 142 Potassium 4.1 Chloride 108 H Carbon Dioxide 30.0 Anion Gap 4 L BUN 26 H Creatinine 0.99 Estim Creat Clear Calc 41.72 Est GFR (MDRD) Af Amer 69 Est GFR (MDRD) Non-Af 57 L BUN/Creatinine Ratio 26.2 H Glucose 202 H Calcium 9.2 Magnesium Total Bilirubin AST ALT Alkaline Phosphatase Troponin I 0.316 H B-Natriuretic Peptide 501.2 H Total Protein Albumin Globulin Albumin/Globulin Ratio Triglycerides Cholesterol LDL Cholesterol VLDL Cholesterol HDL Cholesterol TSH POC Glucose Blood Type Antibody Screen 01/04/21 01/04/21 01/04/21 12:35 16:40 17:03 WBC RBC Hgb Hct MCV MCH MCHC RDW Std Deviation RDW Coeff of Conchis Plt Count MPV Immature Gran % (Auto) Neut % (Auto) Lymph % (Auto) [place] % (Auto) Eos % (Auto) Baso % (Auto) Absolute Neuts (auto) Absolute Lymphs (auto) Nucleated RBC % Sodium Potassium Chloride Carbon Dioxide Anion Gap BUN Creatinine Estim Creat Clear Calc Est GFR (MDRD) Af Amer Est GFR (MDRD) Non-Af BUN/Creatinine Ratio Glucose Calcium Magnesium 2.2 Total Bilirubin AST ALT Alkaline Phosphatase Troponin I 0.365 H B-Natriuretic Peptide Total Protein Albumin Globulin Albumin/Globulin Ratio Triglycerides Cholesterol LDL Cholesterol VLDL Cholesterol HDL Cholesterol TSH POC Glucose 131 H Blood Type Antibody Screen 01/04/21 01/04/21 01/05/21 19:07 21:10 02:53 WBC RBC Hgb Hct MCV MCH MCHC RDW Std Deviation RDW Coeff of Conchis Plt Count MPV Immature Gran % (Auto) Neut % (Auto) Lymph % (Auto) [place] % (Auto) Eos % (Auto) Baso % (Auto) Absolute Neuts (auto) Absolute Lymphs (auto) Nucleated RBC % Sodium Potassium Chloride Carbon Dioxide Anion Gap BUN Creatinine Estim Creat Clear Calc Est GFR (MDRD) Af Amer Est GFR (MDRD) Non-Af BUN/Creatinine Ratio Glucose Calcium Magnesium Total Bilirubin AST ALT Alkaline Phosphatase Troponin I 0.397 H B-Natriuretic Peptide Total Protein Albumin Globulin Albumin/Globulin Ratio Triglycerides Cholesterol LDL Cholesterol VLDL Cholesterol HDL Cholesterol TSH POC Glucose 77 101 Blood Type Antibody Screen 01/05/21 01/05/21 01/05/21 06:10 06:10 08:28 WBC 4.0 L RBC 2.42 L Hgb 7.6 L Hct 24.2 L MCV 100.0 H MCH 31.4 MCHC 31.4 L RDW Std Deviation 58.6 H RDW Coeff of Conchis 16.2 H Plt Count 128 L MPV 9.8 Immature Gran % (Auto) 0.000 Neut % (Auto) 59.1 Lymph % (Auto) 27.6 Ocean % (Auto) 7.8 Eos % (Auto) 5.0 Baso % (Auto) 0.5 Absolute Neuts (auto) 2.4 Absolute Lymphs (auto) 1.10 Nucleated RBC % 0 Sodium 142 Potassium 3.9 Chloride 107 Carbon Dioxide 30.0 Anion Gap 5 BUN 28 H Creatinine 0.85 Estim Creat Clear Calc 48.59 Est GFR (MDRD) Af Amer 83 Est GFR (MDRD) Non-Af 68 BUN/Creatinine Ratio 33.0 H Glucose 98 Calcium 8.6 Magnesium Total Bilirubin 0.90 AST 28 ALT 19 Alkaline Phosphatase 92 Troponin I B-Natriuretic Peptide Total Protein 6.0 L Albumin 2.6 L Globulin 3.4 Albumin/Globulin Ratio 0.8 L Triglycerides 80 Cholesterol 116 LDL Cholesterol 52 VLDL Cholesterol 16 HDL Cholesterol 48 TSH 7.48 H POC Glucose 102 Blood Type Antibody Screen 01/05/21 01/05/21 09:08 11:22 WBC RBC Hgb Hct MCV MCH MCHC RDW Std Deviation RDW Coeff of Conchis Plt Count MPV Immature Gran % (Auto) Neut % (Auto) Lymph % (Auto) [place] % (Auto) Eos % (Auto) Baso % (Auto) Absolute Neuts (auto) Absolute Lymphs (auto) Nucleated RBC % Sodium Potassium Chloride Carbon Dioxide Anion Gap BUN Creatinine Estim Creat Clear Calc Est GFR (MDRD) Af Amer Est GFR (MDRD) Non-Af BUN/Creatinine Ratio Glucose Calcium Magnesium Total Bilirubin AST ALT Alkaline Phosphatase Troponin I B-Natriuretic Peptide Total Protein Albumin Globulin Albumin/Globulin Ratio Triglycerides Cholesterol LDL Cholesterol VLDL Cholesterol HDL Cholesterol TSH POC Glucose 102 Blood Type A POSITIVE Antibody Screen NEGATIVE Radiography Diagnostic Testing: Radiology Impression Chest X-Ray 01/04/21 12:35 IMPRESSION: Poor inspiration with some bibasilar atelectasis. Electronically Signed: Marshal Jiménez MD at 12:51 EDT Tel , Service support , Physical Exam Narrative See subjective. Const alert and oriented x3 HEENT head/scalp atraumatic and moist oral mucous membranes Head and Scalp: normocephalic Eyes PERRL, EOMs intact bilaterally and conjunctivae normal Neck no lymphadenopathy, supple and no JVD Resp normal respiratory effort, normal air movement, no retractions and no use of accessory muscles GI normal to inspection, nondistended, normoactive bowel sounds, soft to palpation, non-tender and non-distended Extremity Extremity Narrative: Mild bilateral lower extremity edema. General Extremity: edema Skin no rashes or lesions noted, no wounds and skin turgor normal Neuro CN's II-XII intact bilaterally Psych affect normal Assessment & Plan Assessment/Plan (1) Chronic diastolic heart failure: (2) Acute exacerbation of CHF (congestive heart failure): QUALIFIERS: Heart failure type: diastolic Qualified Code(s): I50.33 - Acute on chronic diastolic (congestive) heart failure (3) CAD (coronary artery disease): QUALIFIERS: Coronary Disease-Associated Artery/Lesion type: poarch artery [place] vs. 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 Patient reports improvements in her shortness of breath from admission, however does not feel strong enough to return to her assisted living center. Patient to return to [facility] at discharge. 1) acute decompensated diastolic CHF Echo completed on 12/02/2020 demonstrated systolic dysfunction, an EF of 55%, RVSP of 30 mmHg and indeterminate diastolic function. Magnesium currently 2.2. Currently satting 96% on 2 L via nasal cannula. Plan; continue to monitor cardiac telemetry, continue IV Lasix, monitor I's and O's, monitor daily weights, as needed morphine to decrease afterload, position HOB. 2) CAD with chronic angina s/p PTCA Troponins elevated from 0.316 - 0.397. Plan; continue aspirin, Coreg, isosorbide, statin and Ranexa therapy 3) chronic pancytopenia Hemoglobin currently 7.6. Platelet count 128, baseline is between 100-130. Patient's oncologist, Dr. Priest, requested PRBC administration prior to discharge. Plan; type and cross ordered, will transfuse if hemoglobin less than 7. 4) ZHANG with liver cirrhosis Noted on patient history, lactulose or spironolactone not on patient's home med list. 5) DM 2 Continue home insulin regiment Accu-Cheks with sliding scale insulin ordered. 6) Schizophrenia Plan; Haldol as needed, 7) Hypertension Stable. Continue home Coreg, isosorbide. IV Lasix ordered, hydralazine as needed. 8) Hyperlipidemia Continue statin. 9) Hypothyroidism Continue Synthroid. 10) Obesity Weight loss and therapeutic lifestyle changes recommended. 11) GERD with history of GI bleed Continue home PPI. DVT prophylaxis: SCDs Patient seen by Wagner Rebolledo PA-C, under the supervision of Dr. Russell Documented by User: Dr. Jp Russell MD 01/05/21 16:39 Subjective Subjective Patient was admitted with CHF exacerbation, shortness of breath and leg swelling. She reports mild improvement in shortness of breath. She is elderly with difficulty in ambulation, chronic mild oropharyngeal dysphagia. PT OT and speech therapist following. Denies chest pain. Objective Data Lab / Micro Data Result Diagrams: 01/05/21 06:10 01/05/21 06:10 Physical Exam Narrative General: Alert, Oriented x2, Cooperative HEENT: Atraumatic, PERRLA, EOMI, Normocephalic Oral: No Gingival or Mucosal Lesions/ Ulcerations Neck: Supple, No JVD, Negative Carotid Bruits Lungs: Air entry diminished in bilateral lung bases. Bilateral lung bases crepitations present. Cardiovascular: Regular rate, Regular Rhythm, Normal S1, Normal S2, pansystolic murmur present over LLSB and cardiac apex. Abdomen: Mild abdominal distention probably ascites. Bowel Sounds Present, Soft, Non Tender : No renal angle tenderness. No suprapubic tenderness. Extremities: Bilateral lower extremity edema 4+ up to thigh, Capillary Refill Less than 3 Seconds Skin: No rashes, No breakdown Musculoskeletal: Mild joint tenderness over knees and hips. ROM restricted Neurological: Cranial nerves II-XII grossly intact, Neuro grossly intact Psych/Mental Status: Flat affect. Assessment & Plan Assessment/Plan (1) Acute exacerbation of CHF (congestive heart failure): QUALIFIERS: Heart failure type: diastolic Qualified Code(s): I50.33 - Acute on chronic diastolic (congestive) heart failure PLAN: This patient was seen in conjunction with ZARINA Allan. I have independently interviewed and examined the patient and reviewed pertinent history, examination findings, laboratory and plan of management. I have reviewed the note and agree with the documented findings with the few additional points. In brief, patient is admitted for on chronic decompensated diastolic heart failure with EF 55%, RVSP 30 mmHg. Patient has bilateral lower extremity lymphedema some mild ascites. On Lasix. Heart failure core measures including intake and output, fluid restriction less than 1500 mL, daily weight monitoring, kidney and electrolytes monitoring she also has Zhang related cirrhosis with chronic pancytopenia. History of coronary artery status post PTCA. Mildly elevated troponins. On medical management. Other multiple comorbidities as listed above. PT OT and speech evaluation. I have discussed my assessment with ZARINA Allan and orders have been reviewed. Visit Charges Inpatient E&M: 56927 Subs Hosp L2
[2021-01-05] MEDS: Glucerna Shake 120 ML LIQUID PO ×3 (13:27→22:00)
--- NOTE | 2021-01-05 14:41 | CHAPLAIN ---
Type of Pastoral Visit _x__ Initial Visit ___ Follow-up Visit ___ On-call Visit ___ General Patient Visit ___ Spiritual Assessment ___ Family Conference ___ Bereavement ___ Rapid Response ___ Code Blue ___ Other (describe below) Pastoral Care Referral From _x__ Patient ___ Family ___ Nurse ___ Physician ___ Sagger Maker ___ Buggy Operator ___ Other (describe below) Sacrament/Intervention _x__ Active listening ___ Anointing ___ Yazidism ___ Bereavement ___ Communion ___ [place] exploration ___ ___ Life review _x__ Prayer ___ Reconciliation ___ Sacrament of Sick _x__ Supportive presence ___ Wedding ___ Other (describe below) Pastoral Comments
[2021-01-05] MEDS: Isosorbide Mononitrate 30 MG Tablet PO (17:18)
[2021-01-05 17:46] LABS: Bedside Glucose 79 mg/dL (70-110)
[2021-01-05 17:46] LABS: Bedside Glucose 69 mg/dL (70-110)
[2021-01-05] MEDS: Acetaminophen 325 MG Tablet 650 MG PO (21:55)
[2021-01-05] MEDS: Pravastatin 80 MG Tablet PO (22:00)
[2021-01-05 22:40] LABS: Bedside Glucose 100 mg/dL (70-110)
[2021-01-06] VITALS (12 sets, daily range): BP systolic 97–113; BP diastolic 49–59; PULSE 68–78; RESP 14–18; TEMP 36.4–36.7; O2SAT 94–99
[2021-01-06] MEDS: oxyCODONE 5 MG Tablet PO ×3 (02:32→21:22)
[2021-01-06] MEDS: Levothyroxine 100 MCG Tablet PO (05:29)
[2021-01-06 07:13] LABS: Absolute Lymphocyte Count 0.99 X10^3/uL (0.83-4.51); Basophil# 0.01 X10^3/uL; Basophil% 0.3 % (0-1); Eosinophil# 0.18 X10^3/uL; Eosinophils% 5.2 % (0-5); Hematocrit 24.5 % (37-47); Hemoglobin 7.5 g/dL (12.0-15.0); Lymphocyte # 0.99 X10^3/ul (0.83-4.51); Lymphocyte % 28.5 % (19-41); Mean Corp Hgb Conc 30.6 g/dL (32-36); Mean Corpuscular Hgb 30.7 pg (27.0-32.0); Mean Corpuscular Volume 100.4 fL (81-99); Mean Platelet Vol. 9.6 fl (6.2-12.0); Monocyte# 0.26 X10^3/uL; Monocyte% 7.5 % (0-10); NRBC Flagged by Analyzer 0 % (0-5); Neutrophil # 2.02 X10^3/uL (2.7-7.7); Neutrophil % 58.2 % (47-70); Platelet Count 123 K/mm3 (150-450); RBC Distribution Width CV 16.9 % (11.6-14.6); RBC Distribution Width SD 60.8 fl (35.1-43.9); Red Blood Count 2.44 M/mm3 (4.2-5.4); White Blood Count 3.5 K/mm3 (4.4-11.0)
[2021-01-06 07:44] LABS: Anion Gap 5 (5-15); BUN 32 mg/dL (7-18); BUN/Creat Ratio 31.4 RATIO (10-20); Chloride 106 mmol/L (98-107); Creatinine, Serum 1.02 mg/dL (0.55-1.02); EST Glomerular Filtration Rate 55 mL/min (>60); Est Glom Filt Rate - Afr Amer 67 mL/min (>60); Estimated Creatinine Clearance 40.49 ml/min; Glucose 109 mg/dL (74-106); Potassium 3.9 mmol/L (3.5-5.1); Sodium Level 141 mmol/L (136-145)
[2021-01-06] MEDS: Senna/Docusate Sodium 1 Tablet 2 TABLET PO ×2 (08:26→21:23)
[2021-01-06] MEDS: Furosemide 40 MG/4 ML Vial IV ×2 (08:28→17:10)
[2021-01-06] MEDS: 0.9% Saline Lock 10 ML Syringe IV ×3 (08:28→21:23)
[2021-01-06] MEDS: Glucerna Shake 120 ML LIQUID PO ×3 (08:28→21:33)
[2021-01-06] MEDS: Potassium Chloride Oral Tablet 20 MEQ 40 MEQ PO (08:28)
[2021-01-06] MEDS: Aspirin E.C. 81 MG Tablet PO (08:29)
[2021-01-06] MEDS: Folic Acid 1 MG Tablet PO (08:29)
[2021-01-06] MEDS: Cholecalciferol (VIT D3) 25 MCG TABLET (1,000 UNITS) 125 MCG PO (08:29)
[2021-01-06] MEDS: Mirabegron 25 MG TAB.ER.24H PO (08:29)
[2021-01-06] MEDS: Carvedilol 3.125 MG TABLET PO (08:29)
[2021-01-06] MEDS: Pantoprazole Sodium 40 MG Tablet PO (08:29)
[2021-01-06] MEDS: Ranolazine 500 MG Tablet 1000 MG PO ×2 (08:30→21:23)
[2021-01-06] MEDS: Enoxaparin 40 MG/0.4 ML Syringe SC (08:30)
[2021-01-06 09:16] LABS: Vitamin B12 568 pg/mL (211-911)
[2021-01-06] MEDS: Insulin Lispro 100 UNIT/ML INSULN.PEN SC ×2 (12:12→12:13)
[2021-01-06 12:21] LABS: Bedside Glucose 180 mg/dL (70-110)
--- NOTE | 2021-01-06 13:46 | PCM.PN.HOSP ---
Documented by User: Lucero Valera NP, EMERGENCY MEDICAL TECHNICIAN-C 01/06/21 14:05 Subjective Subjective Patient seen and examined. Reports she remains dyspneic with minimal exertion. States she is always short of breath at baseline. Had extensive discussion with patient regarding plan of care. Given multiple comorbidities and recurrent admissions, patient amendable to hospice consult however she states she would want to return to her assisted living facility with hospice services. Objective Data Objective Data Vital Signs: Vital Signs Temp Pulse Resp BP Pulse Ox 97.6 F L 78 18 113/57 L 97 01/06/21 08:20 01/06/21 08:20 01/06/21 08:20 01/06/21 08:20 01/06/21 08:20 Oxygen Flow Rate (L/min) 2 Oxygen Delivery Method Room Air Weight: 212 lb 15.465 oz Body Mass Index (BMI) 34.8 Intake & Output: Intake and Output for Last 24 Hours 01/04/21 01/05/21 01/06/21 23:59 23:59 23:59 Intake Total 960 / 960 960 / 960 120 / 120 Output Total 1450 / 1450 1050 / 1050 650 / 650 Balance -490 / -490 -90 / -90 -530 / -530 Lab / Micro Data Result Diagrams: 01/06/21 07:01 01/06/21 07:01 Labs: Laboratory Results - last 24 hr 01/05/21 01/05/21 01/05/21 17:17 17:39 22:04 WBC RBC Hgb Hct MCV MCH MCHC RDW Std Deviation RDW Coeff of Conchis Plt Count MPV Immature Gran % (Auto) Neut % (Auto) Lymph % (Auto) [place] % (Auto) Eos % (Auto) Baso % (Auto) Absolute Neuts (auto) Absolute Lymphs (auto) Nucleated RBC % Sodium Potassium Chloride Carbon Dioxide Anion Gap BUN Creatinine Estim Creat Clear Calc Est GFR (MDRD) Af Amer Est GFR (MDRD) Non-Af BUN/Creatinine Ratio Glucose Calcium Vitamin B12 Folate POC Glucose 69 L 79 100 01/06/21 01/06/21 01/06/21 06:00 06:00 07:01 WBC 3.5 L RBC 2.44 L Hgb 7.5 L Hct 24.5 L MCV 100.4 H MCH 30.7 MCHC 30.6 L RDW Std Deviation 60.8 H RDW Coeff of Conchis 16.9 H Plt Count 123 L MPV 9.6 Immature Gran % (Auto) 0.300 Neut % (Auto) 58.2 Lymph % (Auto) 28.5 [place] % (Auto) 7.5 Eos % (Auto) 5.2 H Baso % (Auto) 0.3 Absolute Neuts (auto) 2.0 Absolute Lymphs (auto) 0.99 Nucleated RBC % 0 Sodium Potassium Chloride Carbon Dioxide Anion Gap BUN Creatinine Estim Creat Clear Calc Est GFR (MDRD) Af Amer Est GFR (MDRD) Non-Af BUN/Creatinine Ratio Glucose Calcium Vitamin B12 568 Folate 59.30 H POC Glucose 01/06/21 01/06/21 07:01 12:11 WBC RBC Hgb Hct MCV MCH MCHC RDW Std Deviation RDW Coeff of Conchis Plt Count MPV Immature Gran % (Auto) Neut % (Auto) Lymph % (Auto) [place] % (Auto) Eos % (Auto) Baso % (Auto) Absolute Neuts (auto) Absolute Lymphs (auto) Nucleated RBC % Sodium 141 Potassium 3.9 Chloride 106 Carbon Dioxide 30.0 Anion Gap 5 BUN 32 H Creatinine 1.02 Estim Creat Clear Calc 40.49 Est GFR (MDRD) Af Amer 67 Est GFR (MDRD) Non-Af 55 L BUN/Creatinine Ratio 31.4 H Glucose 109 H Calcium 9.0 Vitamin B12 Folate POC Glucose 180 H Physical Exam Const alert, oriented x3 and no apparent distress Orientation / Consciousness: awake, oriented to person, oriented to place and oriented to time HEENT normocephalic and moist oral mucous membranes Eyes PERRL, EOMs intact bilaterally and conjunctivae normal Neck no lymphadenopathy Resp clear to auscultation bilaterally Auscultation: diminished lung sounds Cardio regular rate, regular rhythm and no murmurs Peripheral Pulses: pulses 2+ throughout GI normal to inspection, nondistended, normoactive bowel sounds, non-tender and non-distended Extremity normal to inspection General Extremity: edema bilateral lower extremity Skin no rashes or lesions noted Lesions: no lesions Rashes: no rashes Trauma: no lacerations or abrasions Neuro CN's II-XII intact bilaterally, no focal motor deficits, no sensory deficits noted and deep tendon reflexes 2+ bilaterally Psych mental status grossly normal and affect normal Assessment & Plan Assessment/Plan (1) Acute exacerbation of CHF (congestive heart failure): QUALIFIERS: Heart failure type: diastolic Qualified Code(s): I50.33 - Acute on chronic diastolic (congestive) heart failure PLAN: 1. Acute hypoxic respiratory insufficiency secondary to acute on chronic heart failure with preserved ejection fraction-recent echocardiogram 12/02/2020 demonstrated an EF of 55%. Continue IV lasix. Strict I&O. Daily weight. Continue supplement oxygen to maintain O2 at above 90%. Given recurrent admissions and multiple comorbidities, discussed palliative/hospice with patient and she is amenable to consult. Further disposition pending consult. 2. ZHANG with liver cirrhosis, chronic pancytopenia- follows with Dr. Priest for chronic pancytopenia. Trend CBC. Plan to transfuse for hemoglobin less than 7. On lactulose, spironolactone. 3. CAD with history of stents-stable, continue medical management. 4. Type 2 diabetes [id number] with sliding scale insulin. 5. Hypertension-stable, continue current regimen. 6. Hyperlipidemia-continue statin. 7. Hypothyroidism-continue Synthroid regimen. 8. Schizophrenia-as needed Haldol. 9. GERD-on PPI. DVT prophylaxis-SCDs Discharge planning: Hospice consult pending. Possible return to assisted living facility with hospice services. This patient was seen by MARTY Ugalde under the supervision of Dr. Russell. Documented by User: Dr. Jp Russell MD 01/06/21 15:04 Subjective Subjective Patient still mild short of breath although somewhat better than yesterday. Has bilateral lower extremity edema with his admitted in January. Discussion about advanced directive and agreeable to hospice consult. Objective Data Lab / Micro Data Result Diagrams: 01/06/21 07:01 01/06/21 07:01 Physical Exam Narrative General: Alert, Oriented x2, Cooperative HEENT: Atraumatic, PERRLA, EOMI, Normocephalic Oral: No Gingival or Mucosal Lesions/ Ulcerations Neck: Supple, No JVD, Negative Carotid Bruits Lungs: Air entry diminished in bilateral lung bases but improving. No crepitation or rhonchi. Mild dyspnea on exertion Cardiovascular: Regular rate, Regular Rhythm, Normal S1, Normal S2, pansystolic murmur present over LLSB and cardiac apex. Abdomen: Mild abdominal distention probably ascites. Bowel Sounds Present, Soft, Non Tender : No renal angle tenderness. No suprapubic tenderness. Extremities: Bilateral lower extremity edema 4+ up to thigh, Capillary Refill Less than 3 Seconds Skin: No rashes, No breakdown Musculoskeletal: Mild joint tenderness over knees and hips. ROM restricted Neurological: Cranial nerves II-XII grossly intact, Neuro grossly intact Psych/Mental Status: Flat affect. Assessment & Plan Assessment/Plan (1) Acute exacerbation of CHF (congestive heart failure): QUALIFIERS: Heart failure type: diastolic Qualified Code(s): I50.33 - Acute on chronic diastolic (congestive) heart failure PLAN: This patient was seen in conjunction with EMERGENCY MEDICAL TECHNICIANLucero. I have independently interviewed and examined the patient and reviewed pertinent history, examination findings, laboratory and plan of management. I have reviewed the note and agree with the documented findings with the few additional points. In brief, patient is admitted for on chronic decompensated diastolic heart failure with EF 55%, RVSP 30 mmHg. Patient has bilateral lower extremity lymphedema some mild ascites. On Lasix. Heart failure core measures including intake and output, fluid restriction less than 1500 mL, daily weight monitoring, kidney and electrolytes monitoring she also has Zhang related cirrhosis with chronic pancytopenia. History of coronary artery status post PTCA. Mildly elevated troponins, demand ischemia type II VA. On medical management. Other multiple comorbidities as listed above. PT OT and speech evaluation. I have discussed my assessment with Lucero MONTANO and orders have been reviewed. Living will/advanced directive/end of life care: Patient does not have living will or advanced directive. After discussion of benefits/risks procedures involved with full code, DNR CC arrest and DNR CC, the patient opted for DNR-CC Arrest with no intubation although she is good for BiPAP or Ventimask. Patient agrees to for palliative/hospice control. Patient does not want artificial life support including intubation,ventilator and/chest compression, and DC shock if needed. Total time spent in [id number] encounter in discussion of advanced directive 16 minutes. Charges/Coding Visit Charges Inpatient E&M: 67290 Subs Hosp L2 Procedures Hospitalists Procedures: 04740 Advncd Care Plan 30 Min
--- NOTE | 2021-01-06 13:46 | CASEMGMT ---
Social Work Per EVAN Barker pt would be willing to speak with someone regarding hospice services. Pt is current with [facility]. Phone call to [facility] and they do not have hospice services. SW met with pt and she is agreeable to referral to [facility]. Referral made and clinical information faxed to [facility]. A hospice patient registration representative will meet with later today. Nurse practitioner updated. KARIN Ybarra
--- NOTE | 2021-01-06 15:33 | CASEMGMT ---
health care liaison spoke with patient. Patient is not sure what she wants to do. She does not want to give up her blood transfusions. She was given information about Hospice. SW to follow for d/c planning. Karina SERRATO
[2021-01-06 16:56] LABS: Bedside Glucose 97 mg/dL (70-110)
[2021-01-06] MEDS: Ondansetron 4 MG/2 ML Vial IV (17:10)
[2021-01-06] MEDS: Pravastatin 80 MG Tablet PO (21:22)
[2021-01-06 21:41] LABS: Bedside Glucose 102 mg/dL (70-110)
[2021-01-07] VITALS (17 sets, daily range): BP systolic 93–118; BP diastolic 44–66; PULSE 73–97; RESP 14–18; TEMP 36.4–37.3; O2SAT 93–98
--- NOTE | 2021-01-07 01:51 | NURSING ---
alfonzo rn charting reviewed
[2021-01-07] MEDS: Nitroglycerin (INPATIENT USE) 0.4 MG TAB.SUBL SL (03:37)
--- NOTE | 2021-01-07 03:51 | EKG12_ITS ---
Test Reason : CP Blood Pressure : / mmHG Vent. Rate : 095 BPM Atrial Rate : 095 BPM P-R Int : 144 ms QRS Dur : 110 ms QT Int : 390 ms P-R-T Axes : 083 -24 127 degrees QTc Int : 490 ms Normal sinus rhythm ST & T wave abnormality, consider lateral ischemia Abnormal ECG When compared with ECG of 04-JAN-2021 11:48, T wave inversion more evident in Lateral leads Confirmed by JUAN ALBERTO CHEW, RC ([id number]), film editor supervisor LAURIE MCCLELLAND ([id number]) on 01/11/2021 10:31:16 AM Referred By: DR KEYES Confirmed By:RC AVENDANO MD
[2021-01-07 05:50] LABS: Absolute Neutrophil Count 3.3 X10^3/uL (2.0-7.7); Basophil# 0.02 X10^3/uL; Basophil% 0.4 % (0-1); Eosinophil# 0.18 X10^3/uL; Eosinophils% 3.6 % (0-5); Hematocrit 22.7 % (37-47); Hemoglobin 6.9 g/dL (12.0-15.0); Lymphocyte % 21.7 % (19-41); Mean Corp Hgb Conc 30.4 g/dL (32-36); Mean Corpuscular Hgb 31.1 pg (27.0-32.0); Mean Corpuscular Volume 102.3 fL (81-99); Mean Platelet Vol. 9.5 fl (6.2-12.0); Monocyte# 0.43 X10^3/uL; Monocyte% 8.5 % (0-10); NRBC Flagged by Analyzer 0 % (0-5); Neutrophil # 3.32 X10^3/uL (2.7-7.7); Neutrophil % 65.6 % (47-70); Platelet Count 134 K/mm3 (150-450); RBC Distribution Width SD 61.2 fl (35.1-43.9); Red Blood Count 2.22 M/mm3 (4.2-5.4); White Blood Count 5.1 K/mm3 (4.4-11.0)
[2021-01-07] MEDS: Levothyroxine 100 MCG Tablet PO (05:55)
[2021-01-07] MEDS: 0.9% Saline Lock 10 ML Syringe IV ×5 (05:58→20:12)
[2021-01-07] MEDS: Ondansetron 4 MG/2 ML Vial IV ×2 (05:58→15:02)
[2021-01-07 06:37] LABS: Anion Gap 4 (5-15); BUN 38 mg/dL (7-18); BUN/Creat Ratio 33.6 RATIO (10-20); Calcium,Total 9.1 mg/dL (8.5-10.1); Chloride 104 mmol/L (98-107); Creatinine, Serum 1.13 mg/dL (0.55-1.02); EST Glomerular Filtration Rate 49 mL/min (>60); Est Glom Filt Rate - Afr Amer 59 mL/min (>60); Estimated Creatinine Clearance 36.55 ml/min; Glucose 147 mg/dL (74-106); Potassium 4.6 mmol/L (3.5-5.1); Sodium Level 139 mmol/L (136-145)
[2021-01-07] MEDS: Insulin Lispro 100 UNIT/ML INSULN.PEN SC ×4 (08:06→21:34)
[2021-01-07] MEDS: Enoxaparin 40 MG/0.4 ML Syringe SC (08:06)
[2021-01-07] MEDS: Furosemide 40 MG/4 ML Vial IV ×2 (08:07→17:17)
[2021-01-07] MEDS: Cholecalciferol (VIT D3) 25 MCG TABLET (1,000 UNITS) 125 MCG PO (08:09)
[2021-01-07] MEDS: Carvedilol 3.125 MG TABLET PO (08:09)
[2021-01-07] MEDS: Ranolazine 500 MG Tablet 1000 MG PO ×2 (08:09→21:33)
[2021-01-07] MEDS: Aspirin E.C. 81 MG Tablet PO (08:09)
[2021-01-07] MEDS: Potassium Chloride Oral Tablet 20 MEQ 40 MEQ PO (08:09)
[2021-01-07] MEDS: Pantoprazole Sodium 40 MG Tablet PO (08:09)
[2021-01-07] MEDS: Folic Acid 1 MG Tablet PO (08:09)
[2021-01-07] MEDS: Glucerna Shake 120 ML LIQUID PO ×2 (08:09→21:29)
[2021-01-07] MEDS: Mirabegron 25 MG TAB.ER.24H PO (08:10)
[2021-01-07 08:20] LABS: Bedside Glucose 146 mg/dL (70-110)
--- NOTE | 2021-01-07 10:19 | CASEMGMT ---
Call placed to Riccardo ([phone]), pt's palliative care provider, to collaborate on readmission reduction efforts. Call received back from Gage Zaidi NP. Per Gage, he has attempted many interventions to support Jaida staying in her home environment. He has placed his contact information on her refrigerator and table, but she does not contact him with concerns. Gage reports pt does approach the nursing staff at [facility] for assistance but despite their reassurance she returns to her room and calls 911. Gage confirms pt does not have any family support. Gage's medical technologist prn has also visited patient and discussed hospice care services with Jaida but she has not been agreeable. Will continue to collaborate with Gage/Riccardo as appropriate. Davon Bingham RN CM
--- NOTE | 2021-01-07 11:17 | CASEMGMT ---
Nurse Practitioner spoke with patient about Hospice again. Patient was willing to talk with someone again. SW met with patient. SW spoke with patient about Hospice. She is willing to talk with someone at Hospice again. She said she knows she would not be able to have blood transfusions. SW called Hospice and spoke with Abbi. She said she would have Roula come back and talk with patient. She said just so SW is aware patient's don't have to definitely give up blood transfusions. They look at them on a case by case basis. Karina Simmons BAKERY MACHINE MECHANIC AMA
[2021-01-07 12:00] LABS: Bedside Glucose 228 mg/dL (70-110)
--- NOTE | 2021-01-07 12:05 | CASEMGMT ---
Addendum entered by Karina Simmons 01/07/21 12:46: SUAD did talk with Francia from [facility] and let her know patient signed with [facility] and she will likely be discharged tomorrow. She thanked for the update. SUAD called [facility] and spoke with Aby. SUAD let her know patient signed with [facility]. She will be discharged back to her assisted living tomorrow. Aby said she will notify patient's nurse. Green sheet on chart. SUAD Plan: d/c back to [facility] on [facility]. Staff will have to set up transportation. Karina SERRATO Original Note: Roula from Hospice came and spoke with patient again. Patient signed Hospice papers. [facility] will let Hospice know when patient is discharged. SUAD called [facility] to let Francia know, but she was busy. SUAD will try and call her again. Plan: d/c back to [facility] on [facility]. Karina SERRATO
--- NOTE | 2021-01-07 14:19 | PCM.DC ---
Discharge Instructions Diet Discharge Diet: 8 Cup Fluid Restriction and 2000 mg Sodium Diet Activity Discharge Activity: Return to Normal Activity Follow Up Care Test Results: Test results from this visit will be discussed in further detail at your follow-up appointment, if applicable. Discharge Plan Admission Admit Date/Time: 01/04/21 13:41 Primary Reason for Your Visit: CHF, Liver cirrhosis Attending Provider: Jp Russell Primary Care Provider: Diana Cohen Instructions Additional Instructions / Restrictions: Hospice to follow at assisted living. Discharge Orders/Prescriptions Prescriptions: No Action ascorbic acid (vitamin C) 500 mg tablet 500 mg PO DAILY RF: 0 mirabegron 25 mg tablet extended release 24 hr 25 mg PO DAILY RF: 0 nitroglycerin 0.4 mg tablet, sublingual 0.4 mg sublingual PRN PRN (Reason: CHEST PAIN) Qty: 25 RF: 3 pravastatin 80 mg tablet 80 mg PO DAILY Qty: 30 RF: 11 carvedilol 3.125 mg tablet 3.125 mg PO BID Qty: 60 RF: 11 furosemide [Lasix] 40 mg tablet 40 mg PO DAILY Qty: 30 RF: 11 isosorbide mononitrate 30 mg tablet extended release 24 hr 30 mg PO DINNER Qty: 30 RF: 11 aspirin 81 MG tablet,chewable 81 mg PO DAILY@0800 RF: 0 insulin glargine U-300 conc 300/ML insulin pen 34 unit SC DAILY RF: 0 cholecalciferol (vitamin D3) 5,000 UNIT capsule 5,000 unit PO DAILY RF: 0 levothyroxine 100 MCG tablet 100 mcg PO DAILY RF: 0 insulin regular human 100 UNIT/ML solution 5 unit SQ TIDCM RF: 0 folic acid 1 MG tablet 1 mg PO DAILY RF: 0 pantoprazole 40 MG tablet 40 mg PO DAILY RF: 0 haloperidol 1 MG tablet 1 mg PO BID PRN (Reason: Nausea) RF: 0 polyethylene glycol 3350 17 GM packet 17 gm PO PRN PRN (Reason: Constipation) RF: 0 albuterol sulfate 1 PUFF inhaler 2 puff INHALATION Q4H PRN PRN (Reason: SOB/WHEEZING) RF: 0 acetaminophen [Tylenol] 325 mg Tablet 650 mg PO Q6H PRN PRN (Reason: Pain Score 1-10/Temp > 100.7 F) Qty: 1 RF: 0 bisacodyl 5 mg Tablet,Delayed Release (Dr/Ec) 5 mg PO DAILY PRN (Reason: constipation) Qty: 1 RF: 0 vit-iron fum-folic ac [ Tablet] 28 mg iron- 800 mcg Tablet 1 tab PO DAILY RF: 0 potassium chloride 20 mEq Packet 40 meq PO DAILY RF: 0 ranolazine 500 mg Tablet Extended Release 12 Hr 1,000 mg PO BID RF: 0 Referrals / Follow Up: Diana Cohen MD [Primary Care Provider] - See Referral Note (As needed) Disposition Disposition (needs filled in before D/C Order can be placed): Hospice in Home
--- NOTE | 2021-01-07 14:29 | PN.HOSP_ITS ---
Documented by User: Lucero Valera NP, CIVIL ENGINEER HELPER-C 01/07/21 14:32 Subjective Subjective Patient seen and examined. Reports improvement in breathing. Amendable to hospice transition, papers signed. Plan for discharge 01/08/2021 to assisted living facility under hospice. Objective Data Objective Data Vital Signs: Vital Signs Temp Pulse Resp BP Pulse Ox 99.1 F 75 18 97/60 96 01/07/21 12:30 01/07/21 12:30 01/07/21 12:30 01/07/21 12:30 01/07/21 12:30 Oxygen Flow Rate (L/min) 2 Oxygen Delivery Method Room Air Weight: 213 lb 6.519 oz Body Mass Index (BMI) 34.8 Intake & Output: Intake and Output for Last 24 Hours 01/05/21 01/06/21 01/07/21 23:59 23:59 23:59 Intake Total 960 / 960 840 / 840 1080 / 1080 Output Total 1050 / 1050 900 / 900 800 / 800 Balance -90 / -90 -60 / -60 280 / 280 Lab / Micro Data Result Diagrams: 01/07/21 05:36 01/07/21 05:36 Labs: Laboratory Results - last 24 hr 01/05/21 01/06/21 01/06/21 09:08 16:51 21:18 WBC RBC Hgb Hct MCV MCH MCHC RDW Std Deviation RDW Coeff of Conchis Plt Count MPV Immature Gran % (Auto) Neut % (Auto) Lymph % (Auto) [place] % (Auto) Eos % (Auto) Baso % (Auto) Absolute Neuts (auto) Absolute Lymphs (auto) Nucleated RBC % Sodium Potassium Chloride Carbon Dioxide Anion Gap BUN Creatinine Estim Creat Clear Calc Est GFR (MDRD) Af Amer Est GFR (MDRD) Non-Af BUN/Creatinine Ratio Glucose Calcium POC Glucose 97 102 Crossmatch See Detail 01/07/21 01/07/21 01/07/21 05:36 05:36 07:59 WBC 5.1 RBC 2.22 L Hgb 6.9 L Hct 22.7 L MCV 102.3 H MCH 31.1 MCHC 30.4 L RDW Std Deviation 61.2 H RDW Coeff of Conchis 17.0 H Plt Count 134 L MPV 9.5 Immature Gran % (Auto) 0.200 Neut % (Auto) 65.6 Lymph % (Auto) 21.7 [place] % (Auto) 8.5 Eos % (Auto) 3.6 Baso % (Auto) 0.4 Absolute Neuts (auto) 3.3 Absolute Lymphs (auto) 1.10 Nucleated RBC % 0 Sodium 139 Potassium 4.6 Chloride 104 Carbon Dioxide 31.0 Anion Gap 4 L BUN 38 H Creatinine 1.13 H Estim Creat Clear Calc 36.55 Est GFR (MDRD) Af Amer 59 L Est GFR (MDRD) Non-Af 49 L BUN/Creatinine Ratio 33.6 H Glucose 147 H Calcium 9.1 POC Glucose 146 H Crossmatch 01/07/21 11:52 WBC RBC Hgb Hct MCV MCH MCHC RDW Std Deviation RDW Coeff of [place]is Plt Count MPV Immature Gran % (Auto) Neut % (Auto) Lymph % (Auto) [place] % (Auto) Eos % (Auto) Baso % (Auto) Absolute Neuts (auto) Absolute Lymphs (auto) Nucleated RBC % Sodium Potassium Chloride Carbon Dioxide Anion Gap BUN Creatinine Estim Creat Clear Calc Est GFR (MDRD) Af Amer Est GFR (MDRD) Non-Af BUN/Creatinine Ratio Glucose Calcium POC Glucose 228 H Crossmatch Physical Exam Const alert, oriented x3 and no apparent distress Orientation / Consciousness: awake, oriented to person, oriented to place and oriented to time HEENT normocephalic and moist oral mucous membranes Eyes PERRL, EOMs intact bilaterally and conjunctivae normal Neck no lymphadenopathy Resp clear to auscultation bilaterally Auscultation: diminished lung sounds Cardio regular rate, regular rhythm and no murmurs Peripheral Pulses: pulses 2+ throughout GI normal to inspection, nondistended, normoactive bowel sounds, non-tender and non-distended Extremity normal to inspection General Extremity: edema bilateral lower extremity Skin no rashes or lesions noted Lesions: no lesions Rashes: no rashes Trauma: no lacerations or abrasions Neuro CN's II-XII intact bilaterally, no focal motor deficits, no sensory deficits noted and deep tendon reflexes 2+ bilaterally Psych mental status grossly normal and affect normal Assessment & Plan Assessment/Plan (1) Acute exacerbation of CHF (congestive heart failure): QUALIFIERS: Heart failure type: diastolic Qualified Code(s): I50.33 - Acute on chronic diastolic (congestive) heart failure PLAN: 1. Acute hypoxic respiratory insufficiency secondary to acute on chronic heart failure with preserved ejection fraction-recent echocardiogram 12/02/2020 demonstrated an EF of 55%. Continue IV lasix. Strict I&O. Daily w eight. Continue supplement oxygen to maintain O2 at above 90%. Given recurrent admissions and multiple comorbidities, discussed palliative/hospice with patient and she is amenable to hospice transition at assisted living facility. Plan for discharge 01/08/2021. 2. ZHANG with liver cirrhosis, chronic pancytopenia- follows with Dr. Priest for chronic pancytopenia. Trend CBC. 1 unit PRBC for hemoglobin 6.9. Trend CBC. 3. CAD with history of stents-stable, continue medical management. 4. Type 2 diabetes [id number] with sliding scale insulin. 5. Hypertension-stable, continue current regimen. 6. Hyperlipidemia-continue statin. 7. Hypothyroidism-continue Synthroid regimen. 8. Schizophrenia-as needed Haldol. 9. GERD-on PPI. DVT prophylaxis-SCDs Discharge planning: Discharge to assisted living facility under hospice 01/08/2021. This patient was seen by MARTY Ugalde under the supervision of Dr. Russell. Documented by User: Dr. Jp Russell MD 01/07/21 15:50 Subjective Subjective Patient hemoglobin 6.9. 1 unit of PRBC transfusion running. Patient states improvement in shortness of breath. Patient agreed for palliative care/hospice care. CODE STATUS changed Objective Data Lab / Micro Data Result Diagrams: 01/07/21 05:36 01/07/21 05:36 Physical Exam Narrative General: Alert, Oriented x3, Cooperative HEENT: Atraumatic, PERRLA, EOMI, Normocephalic, chronic hard of hearing. Oral: No Gingival or Mucosal Lesions/ Ulcerations Neck: Supple, No JVD, Negative Carotid Bruits Lungs: Air entry diminished in bilateral lung bases but improving. No crepitation or rhonchi. Cardiovascular: Regular rate, Regular Rhythm, Normal S1, Normal S2, pansystolic murmur present over LLSB and cardiac apex. Abdomen: Mild abdominal distention probably ascites. Bowel Sounds Present, Soft, Non Tender : No renal angle tenderness. No suprapubic tenderness. Extremities: Bilateral lower extremity edema 4+ up to thigh, Capillary Refill Less than 3 Seconds Skin: No rashes, No breakdown Musculoskeletal: Mild joint tenderness over knees and hips. ROM restricted Neurological: Cranial nerves II-XII grossly intact, Neuro grossly intact Psych/Mental Status: Flat affect. Assessment & Plan Assessment/Plan (1) Acute exacerbation of CHF (congestive heart failure): QUALIFIERS: Heart failure type: diastolic Qualified Code(s): I50.33 - Acute on chronic diastolic (congestive) heart failure (2) Acute anemia: PLAN: This patient was seen in conjunction with Lucero MONTANO. I have independently interviewed and examined the patient and reviewed pertinent history, examination findings, laboratory and plan of management. I have reviewed the note and agree with the documented findings with the few additional points. In brief, patient is admitted for acute on chronic decompensated diastolic heart failure with EF 55%, RVSP 30 mmHg. Patient has bilateral lower extremity lymphedema some mild ascites. On Lasix. Heart failure core measures including intake and output, fluid restriction less than 1500 mL, daily weight monitoring, kidney and electrolytes monitoring she also has Zhang related cirrhosis with chronic pancytopenia. History of coronary artery status post PTCA. Mildly elevated troponins, demand ischemia type II [place]. On medical management. Patient has acute anemia on anemia of chronic disease fro. 1 unit of PRBC transfusion Other multiple comorbidities as listed above. PT OT and speech evaluation. Patient had palliative care consult and she agreed for PEG active care and hospice care. CODE STATUS changed to DNR CC. I have discussed my assessment with Lucero MONTANO and orders have been reviewed. Living will/advanced directive/end of life care: Patient does not have living will or advanced directive. After discussion of benefits/risks procedures involved with full code, DNR CC arrest and DNR CC, the patient opted for DNR-CC Arrest with no intubation although she is good for BiPAP or Ventimask. Patient agrees to for palliative/hospice control. Patient does not want artificial life support including intubation,ventilator and/chest compression, and DC shock if needed. Charges/Coding Visit Charges Inpatient E&M: 47454 Subs Hosp L2
--- NOTE | 2021-01-07 14:36 | PHA.DC.MR ---
Pharmacy Service has performed discharge medication reconciliation for this patient. The patient's discharge medication list was reviewed for discrepancies and discrepancies were resolved. Home Medications aspirin 81 mg PO DAILY@0800 06/30/17 ascorbic acid (vitamin C) 500 mg tablet 500 mg PO DAILY 09/13/18 insulin glargine U-300 conc 34 unit SC DAILY 04/23/19 cholecalciferol (vitamin D3) 5,000 unit PO DAILY 06/24/19 levothyroxine 100 mcg PO DAILY 07/24/19 folic acid 1 mg PO DAILY 02/10/20 insulin regular human 5 unit SQ TIDCM 02/10/20 mirabegron 25 mg tablet,extended release 24 hr 25 mg PO DAILY 06/17/20 pantoprazole 40 mg PO DAILY 10/20/20 haloperidol 1 mg PO BID PRN 11/13/20 albuterol sulfate 2 puff INHALATION Q4H PRN PRN 11/14/20 polyethylene glycol 3350 17 gm PO PRN PRN 11/14/20 acetaminophen [Tylenol] 650 mg PO Q6H PRN PRN #1 tab 12/05/20 bisacodyl 5 mg PO DAILY PRN #1 tab 12/05/20 carvedilol 3.125 mg tablet 3.125 mg PO BID #60 tab 12/17/20 furosemide 40 mg tablet 40 mg PO DAILY #30 tab 12/17/20 isosorbide mononitrate 30 mg tablet,extended release 24 hr 30 mg PO DINNER #30 tab 12/17/20 nitroglycerin 0.4 mg sublingual tablet 0.4 mg SUBLINGUAL PRN PRN #25 tab 12/17/20 pravastatin 80 mg tablet 80 mg PO DAILY #30 tab 12/17/20 potassium chloride 40 meq PO DAILY 01/04/21 vit-iron fum-folic ac [ Tablet] 1 tab PO DAILY 01/04/21 ranolazine 1,000 mg PO BID 01/04/21
[2021-01-07 15:10] LABS: Bedside Glucose 136 mg/dL (70-110)
--- NOTE | 2021-01-07 15:24 | CASEMGMT ---
SUAD spoke with Abbi at Hospice and let her know patient will be discharged to [facility] tomorrow. Karina Simmons WEB PRESS ROLL TENDER AMA
[2021-01-07 17:30] LABS: Bedside Glucose 132 mg/dL (70-110)
[2021-01-07] MEDS: Pravastatin 80 MG Tablet PO (21:34)
[2021-01-07 23:45] LABS: Bedside Glucose 230 mg/dL (70-110)
[2021-01-08 03:20] VITALS: PULSE 80
[2021-01-08 05:13] VITALS: BP 116/63; PULSE 78; RESP 18; TEMP 36.5; O2SAT 97
[2021-01-08] MEDS: Levothyroxine 100 MCG Tablet PO (05:25)
[2021-01-08 06:53] LABS: Absolute Lymphocyte Count 1.35 X10^3/uL (0.83-4.51); Absolute Neutrophil Count 2.1 X10^3/uL (2.0-7.7); Basophil# 0.01 X10^3/uL; Basophil% 0.3 % (0-1); Eosinophil# 0.09 X10^3/uL; Eosinophils% 2.3 % (0-5); Hematocrit 24.5 % (37-47); Hemoglobin 7.6 g/dL (12.0-15.0); Lymphocyte # 1.35 X10^3/ul (0.83-4.51); Lymphocyte % 34.8 % (19-41); Mean Corpuscular Hgb 31.4 pg (27.0-32.0); Mean Corpuscular Volume 101.2 fL (81-99); Mean Platelet Vol. 10.2 fl (6.2-12.0); Monocyte# 0.35 X10^3/uL; NRBC Flagged by Analyzer 0 % (0-5); Neutrophil # 2.07 X10^3/uL (2.7-7.7); Neutrophil % 53.3 % (47-70); Platelet Count 121 K/mm3 (150-450); RBC Distribution Width CV 17.6 % (11.6-14.6); RBC Distribution Width SD 63.9 fl (35.1-43.9); Red Blood Count 2.42 M/mm3 (4.2-5.4); White Blood Count 3.9 K/mm3 (4.4-11.0)
[2021-01-08 07:00] VITALS: PULSE 76
[2021-01-08 07:19] VITALS: O2SAT 94
[2021-01-08 07:21] LABS: Anion Gap 5 (5-15); BUN 45 mg/dL (7-18); BUN/Creat Ratio 33.8 RATIO (10-20); Calcium,Total 8.6 mg/dL (8.5-10.1); Chloride 105 mmol/L (98-107); Creatinine, Serum 1.33 mg/dL (0.55-1.02); EST Glomerular Filtration Rate 41 mL/min (>60); Est Glom Filt Rate - Afr Amer 49 mL/min (>60); Estimated Creatinine Clearance 31.06 ml/min; Glucose 149 mg/dL (74-106); Potassium 4.2 mmol/L (3.5-5.1); Sodium Level 138 mmol/L (136-145)
[2021-01-08 08:50] VITALS: BP 113/58; PULSE 78; RESP 16; TEMP 37.1; O2SAT 96
[2021-01-08] MEDS: Insulin Lispro 100 UNIT/ML INSULN.PEN SC ×4 (08:51→11:25)
[2021-01-08] MEDS: Carvedilol 3.125 MG TABLET PO (08:52)
[2021-01-08] MEDS: Aspirin E.C. 81 MG Tablet PO (08:53)
[2021-01-08] MEDS: Potassium Chloride Oral Tablet 20 MEQ 40 MEQ PO (08:53)
[2021-01-08] MEDS: Enoxaparin 40 MG/0.4 ML Syringe SC (08:53)
[2021-01-08] MEDS: Folic Acid 1 MG Tablet PO (08:53)
[2021-01-08] MEDS: Furosemide 40 MG/4 ML Vial IV (08:53)
[2021-01-08] MEDS: Mirabegron 25 MG TAB.ER.24H PO (08:54)
[2021-01-08] MEDS: Pantoprazole Sodium 40 MG Tablet PO (08:54)
[2021-01-08 08:55] LABS: Bedside Glucose 152 mg/dL (70-110)
[2021-01-08] MEDS: Cholecalciferol (VIT D3) 25 MCG TABLET (1,000 UNITS) 125 MCG PO (08:55)
[2021-01-08] MEDS: Ranolazine 500 MG Tablet 1000 MG PO (08:55)
[2021-01-08] MEDS: 0.9% Saline Lock 10 ML Syringe IV (08:57)
--- NOTE | 2021-01-08 11:01 | PCM.DC ---
Discharge Instructions Diet Discharge Diet: No restrictions Activity Discharge Activity: Return to Normal Activity Follow Up Care Test Results: Test results from this visit will be discussed in further detail at your follow-up appointment, if applicable. Discharge Plan Admission Admit Date/Time: 01/04/21 13:41 Primary Reason for Your Visit: CHF, Liver cirrhosis Attending Provider: Keara Rodas Primary Care Provider: Diana Cohen Instructions Additional Instructions / Restrictions: Hospice to follow at assisted living. Discharge Orders/Prescriptions Prescriptions: Continued ascorbic acid (vitamin C) 500 mg tablet 500 mg PO DAILY RF: 0 mirabegron 25 mg tablet extended release 24 hr 25 mg PO DAILY RF: 0 nitroglycerin 0.4 mg tablet, sublingual 0.4 mg sublingual PRN PRN (Reason: CHEST PAIN) Qty: 25 RF: 3 pravastatin 80 mg tablet 80 mg PO DAILY Qty: 30 RF: 11 carvedilol 3.125 mg tablet 3.125 mg PO BID Qty: 60 RF: 11 isosorbide mononitrate 30 mg tablet extended release 24 hr 30 mg PO DINNER Qty: 30 RF: 11 aspirin 81 MG tablet,chewable 81 mg PO DAILY@0800 RF: 0 insulin glargine U-300 conc 300/ML insulin pen 34 unit SC DAILY RF: 0 cholecalciferol (vitamin D3) 5,000 UNIT capsule 5,000 unit PO DAILY RF: 0 levothyroxine 100 MCG tablet 100 mcg PO DAILY RF: 0 insulin regular human 100 UNIT/ML solution 5 unit SQ TIDCM RF: 0 folic acid 1 MG tablet 1 mg PO DAILY RF: 0 pantoprazole 40 MG tablet 40 mg PO DAILY RF: 0 haloperidol 1 MG tablet 1 mg PO BID PRN (Reason: Nausea) RF: 0 polyethylene glycol 3350 17 GM packet 17 gm PO PRN PRN (Reason: Constipation) RF: 0 albuterol sulfate 1 PUFF inhaler 2 puff INHALATION Q4H PRN PRN (Reason: SOB/WHEEZING) RF: 0 acetaminophen [Tylenol] 325 mg Tablet 650 mg PO Q6H PRN PRN (Reason: Pain Score 1-10/Temp > 100.7 F) Qty: 1 RF: 0 bisacodyl 5 mg Tablet,Delayed Release (Dr/Ec) 5 mg PO DAILY PRN (Reason: constipation) Qty: 1 RF: 0 vit-iron fum-folic ac [ Tablet] 28 mg iron- 800 mcg Tablet 1 tab PO DAILY RF: 0 potassium chloride 20 mEq Packet 40 meq PO DAILY RF: 0 ranolazine 500 mg Tablet Extended Release 12 Hr 1,000 mg PO BID RF: 0 Changed furosemide [Lasix] 40 mg tablet 40 mg PO BID Qty: 30 RF: 11 Referrals / Follow Up: Diana Cohen MD [Primary Care Provider] - See Referral Note (As needed) Disposition Disposition (needs filled in before D/C Order can be placed): Hospice in Home
--- NOTE | 2021-01-08 11:12 | PCM.DC.SUM ---
Documented by User: Lucero Valera NP, HOME ORGANIZER-C 01/08/21 11:17 Providers Date of Admission: 01/04/21 Date of Discharge: 01/08/21 Primary Care Physician: Dr. Diana Cohen MD Reason For Visit: ACUTE CHF EXACERBATION Diagnosis Discharge Diagnosis (1) Acute exacerbation of CHF (congestive heart failure): Status: Chronic Code(s): I50.9 - Heart failure, unspecified Qualifiers: Heart failure type: diastolic Qualified Code(s): I50.33 - Acute on chronic diastolic (congestive) heart failure (2) Acute anemia: Status: Acute Code(s): D64.9 - Anemia, unspecified Medications at Discharge Home Medications aspirin 81 mg PO DAILY@0800 06/30/17 ascorbic acid (vitamin C) 500 mg tablet 500 mg PO DAILY 09/13/18 insulin glargine U-300 conc 34 unit SC DAILY 04/23/19 cholecalciferol (vitamin D3) 5,000 unit PO DAILY 06/24/19 levothyroxine 100 mcg PO DAILY 07/24/19 folic acid 1 mg PO DAILY 02/10/20 insulin regular human 5 unit SQ TIDCM 02/10/20 mirabegron 25 mg tablet,extended release 24 hr 25 mg PO DAILY 06/17/20 pantoprazole 40 mg PO DAILY 10/20/20 haloperidol 1 mg PO BID PRN 11/13/20 albuterol sulfate 2 puff INHALATION Q4H PRN PRN 11/14/20 polyethylene glycol 3350 17 gm PO PRN PRN 11/14/20 acetaminophen [Tylenol] 650 mg PO Q6H PRN PRN #1 tab 12/05/20 bisacodyl 5 mg PO DAILY PRN #1 tab 12/05/20 carvedilol 3.125 mg tablet 3.125 mg PO BID #60 tab 12/17/20 isosorbide mononitrate 30 mg tablet,extended release 24 hr 30 mg PO DINNER #30 tab 12/17/20 nitroglycerin 0.4 mg sublingual tablet 0.4 mg SUBLINGUAL PRN PRN #25 tab 12/17/20 pravastatin 80 mg tablet 80 mg PO DAILY #30 tab 12/17/20 potassium chloride 40 meq PO DAILY 01/04/21 vit-iron fum-folic ac [ Tablet] 1 tab PO DAILY 01/04/21 ranolazine 1,000 mg PO BID 01/04/21 furosemide [Lasix] 40 mg PO BID #30 tab 01/08/21 Hospital Course Operations None Procedures Blood transfusion Summary of Care Provided Minutes Spent on Discharge: 35 Hospital Course: Patient is an 80-year-old female admitted 01/04/2021 due to dyspnea, worsening edema. 1. Acute hypoxic respiratory insufficiency secondary to acute on chronic heart failure with preserved ejection fraction-recent echocardiogram 12/02/2020 demonstrated an EF of 55%. IV Lasix during admission, transition to Lasix 40 mg twice daily at discharge. Oxygen currently stable on room air however patient may use oxygen as needed for comfort. Given recurrent admissions and multiple comorbidities, discussed palliative/hospice with patient and she is amenable to hospice transition at assisted living facility. Discharged to assisted living facility with hospice. 2. CHENEY with liver cirrhosis, chronic pancytopenia- follows with Dr. Priest for chronic pancytopenia. 1 unit PRBC for hemoglobin 6.9. Hemoglobin at discharge 7.6. Hospice may consider as needed blood transfusions if patient is symptomatic/for comfort. 3. CAD with history of stents-stable, continue medical management. 4. Type 2 diabetes mellitus-continue home insulin regimen. 5. Hypertension-stable, continue current regimen. 6. Hyperlipidemia-continue statin. 7. Hypothyroidism-continue Synthroid regimen. 8. Schizophrenia-as needed Haldol. 9. GERD-on PPI. Physical Exam Const alert, oriented x3 and no apparent distress Orientation / Consciousness: awake, oriented to person, oriented to place and oriented to time HEENT normocephalic and moist oral mucous membranes Eyes PERRL, EOMs intact bilaterally and conjunctivae normal Neck no lymphadenopathy Resp clear to auscultation bilaterally Auscultation: diminished lung sounds Cardio regular rate, regular rhythm and no murmurs Peripheral Pulses: pulses 2+ throughout GI normal to inspection, nondistended, normoactive bowel sounds, non-tender and non-distended Extremity normal to inspection General Extremity: edema bilateral lower extremity Skin no rashes or lesions noted Lesions: no lesions Rashes: no rashes Trauma: no lacerations or abrasions Neuro CN's II-XII intact bilaterally, no focal motor deficits, no sensory deficits noted and deep tendon reflexes 2+ bilaterally Psych mental status grossly normal and affect normal Patient seen and examined prior to discharge. Physical assessment as noted above. Patient will return to assisted living facility with hospice services at discharge. This patient was seen by MARTY Ugalde under the supervision of Dr. Rodas. ABG / Lab / Microbiology Data Result Diagrams: 01/08/21 06:25 01/08/21 06:25 Laboratory: Laboratory Results - last 24 hr 01/05/21 01/07/21 01/07/21 09:08 11:52 15:01 WBC RBC Hgb Hct MCV MCH MCHC RDW Std Deviation RDW Coeff of [place] Plt Count MPV Immature Gran % (Auto) Neut % (Auto) Lymph % (Auto) [place] % (Auto) Eos % (Auto) Baso % (Auto) Absolute Neuts (auto) Absolute Lymphs (auto) Nucleated RBC % Sodium Potassium Chloride Carbon Dioxide Anion Gap BUN Creatinine Estim Creat Clear Calc Est GFR (MDRD) Af Amer Est GFR (MDRD) Non-Af BUN/Creatinine Ratio Glucose Calcium POC Glucose 228 H 136 H Crossmatch See Detail 01/07/21 01/07/21 01/08/21 17:15 21:32 06:25 WBC 3.9 L RBC 2.42 L Hgb 7.6 L Hct 24.5 L MCV 101.2 H MCH 31.4 MCHC 31.0 L RDW Std Deviation 63.9 H RDW Coeff of [place] 17.6 H Plt Count 121 L MPV 10.2 Immature Gran % (Auto) 0.300 Neut % (Auto) 53.3 Lymph % (Auto) 34.8 [place] % (Auto) 9.0 Eos % (Auto) 2.3 Baso % (Auto) 0.3 Absolute Neuts (auto) 2.1 Absolute Lymphs (auto) 1.35 Nucleated RBC % 0 Sodium Potassium Chloride Carbon Dioxide Anion Gap BUN Creatinine Estim Creat Clear Calc Est GFR (MDRD) Af Amer Est GFR (MDRD) Non-Af BUN/Creatinine Ratio Glucose Calcium POC Glucose 132 H 230 H Crossmatch 01/08/21 01/08/21 06:25 08:46 WBC RBC Hgb Hct MCV MCH MCHC RDW Std Deviation RDW Coeff of [place] Plt Count MPV Immature Gran % (Auto) Neut % (Auto) Lymph % (Auto) [place] % (Auto) Eos % (Auto) Baso % (Auto) Absolute Neuts (auto) Absolute Lymphs (auto) Nucleated RBC % Sodium 138 Potassium 4.2 Chloride 105 Carbon Dioxide 28.0 Anion Gap 5 BUN 45 H Creatinine 1.33 H Estim Creat Clear Calc 31.06 Est GFR (MDRD) Af Amer 49 L Est GFR (MDRD) Non-Af 41 L BUN/Creatinine Ratio 33.8 H Glucose 149 H Calcium 8.6 POC Glucose 152 H Crossmatch D/C Instructions Discharge Diet: No restrictions Meaningful Use Info Meaningful Use Diagnoses (Choose all that apply): CHF CHF CAROL/ARB ordered at discharge?: Yes Documented LVEF (%): 55 Discharge Plan Admission Admit Date/Time: 01/04/21 13:41 Primary Reason for Your Visit: CHF, Liver cirrhosis Attending Provider: Keara Rodas Primary Care Provider: Diana Cohen Instructions Additional Instructions / Restrictions: Hospice to follow at assisted living. Discharge Orders/Prescriptions Prescriptions: Continued ascorbic acid (vitamin C) 500 mg tablet 500 mg PO DAILY RF: 0 mirabegron 25 mg tablet extended release 24 hr 25 mg PO DAILY RF: 0 nitroglycerin 0.4 mg tablet, sublingual 0.4 mg sublingual PRN PRN (Reason: CHEST PAIN) Qty: 25 RF: 3 pravastatin 80 mg tablet 80 mg PO DAILY Qty: 30 RF: 11 carvedilol 3.125 mg tablet 3.125 mg PO BID Qty: 60 RF: 11 isosorbide mononitrate 30 mg tablet extended release 24 hr 30 mg PO DINNER Qty: 30 RF: 11 aspirin 81 MG tablet,chewable 81 mg PO DAILY@0800 RF: 0 insulin glargine U-300 conc 300/ML insulin pen 34 unit SC DAILY RF: 0 cholecalciferol (vitamin D3) 5,000 UNIT capsule 5,000 unit PO DAILY RF: 0 levothyroxine 100 MCG tablet 100 mcg PO DAILY RF: 0 insulin regular human 100 UNIT/ML solution 5 unit SQ TIDCM RF: 0 folic acid 1 MG tablet 1 mg PO DAILY RF: 0 pantoprazole 40 MG tablet 40 mg PO DAILY RF: 0 haloperidol 1 MG tablet 1 mg PO BID PRN (Reason: Nausea) RF: 0 polyethylene glycol 3350 17 GM packet 17 gm PO PRN PRN (Reason: Constipation) RF: 0 albuterol sulfate 1 PUFF inhaler 2 puff INHALATION Q4H PRN PRN (Reason: SOB/WHEEZING) RF: 0 acetaminophen [Tylenol] 325 mg Tablet 650 mg PO Q6H PRN PRN (Reason: Pain Score 1-10/Temp > 100.7 F) Qty: 1 RF: 0 bisacodyl 5 mg Tablet,Delayed Release (Dr/Ec) 5 mg PO DAILY PRN (Reason: constipation) Qty: 1 RF: 0 vit-iron fum-folic ac [ Tablet] 28 mg iron- 800 mcg Tablet 1 tab PO DAILY RF: 0 potassium chloride 20 mEq Packet 40 meq PO DAILY RF: 0 ranolazine 500 mg Tablet Extended Release 12 Hr 1,000 mg PO BID RF: 0 Changed furosemide [Lasix] 40 mg tablet 40 mg PO BID Qty: 30 RF: 11 Referrals / Follow Up: Diana Cohen MD [Primary Care Provider] - See Referral Note (As needed) Disposition Disposition (needs filled in before D/C Order can be placed): Hospice in Home Documented by User: Dr. Keara Rodas MD 01/08/21 15:31 Providers Date of Admission: 01/04/21 Reason For Visit: ACUTE CHF EXACERBATION Medications at Discharge Home Medications aspirin 81 mg PO DAILY@0800 06/30/17 ascorbic acid (vitamin C) 500 mg tablet 500 mg PO DAILY 09/13/18 insulin glargine U-300 conc 34 unit SC DAILY 04/23/19 cholecalciferol (vitamin D3) 5,000 unit PO DAILY 06/24/19 levothyroxine 100 mcg PO DAILY 07/24/19 folic acid 1 mg PO DAILY 02/10/20 insulin regular human 5 unit SQ TIDCM 02/10/20 mirabegron 25 mg tablet,extended release 24 hr 25 mg PO DAILY 06/17/20 pantoprazole 40 mg PO DAILY 10/20/20 haloperidol 1 mg PO BID PRN 11/13/20 albuterol sulfate 2 puff INHALATION Q4H PRN PRN 11/14/20 polyethylene glycol 3350 17 gm PO PRN PRN 11/14/20 acetaminophen [Tylenol] 650 mg PO Q6H PRN PRN #1 tab 12/05/20 bisacodyl 5 mg PO DAILY PRN #1 tab 12/05/20 carvedilol 3.125 mg tablet 3.125 mg PO BID #60 tab 12/17/20 isosorbide mononitrate 30 mg tablet,extended release 24 hr 30 mg PO DINNER #30 tab 12/17/20 nitroglycerin 0.4 mg sublingual tablet 0.4 mg SUBLINGUAL PRN PRN #25 tab 12/17/20 pravastatin 80 mg tablet 80 mg PO DAILY #30 tab 12/17/20 potassium chloride 40 meq PO DAILY 01/04/21 vit-iron fum-folic ac [ Tablet] 1 tab PO DAILY 01/04/21 ranolazine 1,000 mg PO BID 01/04/21 furosemide [Lasix] 40 mg PO BID #30 tab 01/08/21 ABG / Lab / Microbiology Data Result Diagrams: 01/08/21 06:25 01/08/21 06:25 Discharge Plan Admission Admit Date/Time: 01/04/21 13:41 Primary Reason for Your Visit: CHF, Liver cirrhosis Attending Provider: Keara Rodas Primary Care Provider: Diana Cohen Instructions Additional Instructions / Restrictions: Hospice to follow at assisted living. Discharge Orders/Prescriptions Prescriptions: Continued ascorbic acid (vitamin C) 500 mg tablet 500 mg PO DAILY RF: 0 mirabegron 25 mg tablet extended release 24 hr 25 mg PO DAILY RF: 0 nitroglycerin 0.4 mg tablet, sublingual 0.4 mg sublingual PRN PRN (Reason: CHEST PAIN) Qty: 25 RF: 3 pravastatin 80 mg tablet 80 mg PO DAILY Qty: 30 RF: 11 carvedilol 3.125 mg tablet 3.125 mg PO BID Qty: 60 RF: 11 isosorbide mononitrate 30 mg tablet extended release 24 hr 30 mg PO DINNER Qty: 30 RF: 11 aspirin 81 MG tablet,chewable 81 mg PO DAILY@0800 RF: 0 insulin glargine U-300 conc 300/ML insulin pen 34 unit SC DAILY RF: 0 cholecalciferol (vitamin D3) 5,000 UNIT capsule 5,000 unit PO DAILY RF: 0 levothyroxine 100 MCG tablet 100 mcg PO DAILY RF: 0 insulin regular human 100 UNIT/ML solution 5 unit SQ TIDCM RF: 0 folic acid 1 MG tablet 1 mg PO DAILY RF: 0 pantoprazole 40 MG tablet 40 mg PO DAILY RF: 0 haloperidol 1 MG tablet 1 mg PO BID PRN (Reason: Nausea) RF: 0 polyethylene glycol 3350 17 GM packet 17 gm PO PRN PRN (Reason: Constipation) RF: 0 albuterol sulfate 1 PUFF inhaler 2 puff INHALATION Q4H PRN PRN (Reason: SOB/WHEEZING) RF: 0 acetaminophen [Tylenol] 325 mg Tablet 650 mg PO Q6H PRN PRN (Reason: Pain Score 1-10/Temp > 100.7 F) Qty: 1 RF: 0 bisacodyl 5 mg Tablet,Delayed Release (Dr/Ec) 5 mg PO DAILY PRN (Reason: constipation) Qty: 1 RF: 0 vit-iron fum-folic ac [ Tablet] 28 mg iron- 800 mcg Tablet 1 tab PO DAILY RF: 0 potassium chloride 20 mEq Packet 40 meq PO DAILY RF: 0 ranolazine 500 mg Tablet Extended Release 12 Hr 1,000 mg PO BID RF: 0 Changed furosemide [Lasix] 40 mg tablet 40 mg PO BID Qty: 30 RF: 11 Referrals / Follow Up: Diana Cohen MD [Primary Care Provider] - See Referral Note (As needed) Disposition Disposition (needs filled in before D/C Order can be placed): Hospice in Home
[2021-01-08 11:36] LABS: Bedside Glucose 154 mg/dL (70-110)
--- NOTE | 2021-01-08 13:13 | NURSING ---
Report called to Hospice nurse Jessica and report called to Lauren at [facility].
[2021-01-08 14:40] VITALS: BP 117/51; PULSE 76; RESP 18; TEMP 36.9; O2SAT 98
[2021-01-08 16:06] LABS: Bedside Glucose 148 mg/dL (70-110)
== END 2021-01-08 17:30 | disposition hospice, home (50) | DRG 293 ==
LOC: ED 13:15 → PCU 14:26
PROVIDERS: Internal Medicine; Nurse Practitioner Family; Physician Assistant; Admitting Provider Family Medicine; Emergency Provider Emergency Medicine; PCP Internal Medicine; Visit Provider Family Medicine
DX: I11.0 Hypertensive heart disease with heart failure (principal); E03.9 Hypothyroidism, unspecified; K74.60 Unspecified cirrhosis of liver; I50.33 Acute on chronic diastolic (congestive) heart failure; E11.9 Type 2 diabetes mellitus without complications; Z79.4 Long term (current) use of insulin; F20.9 Schizophrenia, unspecified; I25.119 Atherosclerotic heart disease of native coronary artery with unspecified angina pectoris; K75.81 Nonalcoholic steatohepatitis (NASH); E78.5 Hyperlipidemia, unspecified; K21.9 Gastro-esophageal reflux disease without esophagitis; R09.02 Hypoxemia; R06.89 Other abnormalities of breathing; Z95.5 Presence of coronary angioplasty implant and graft; Z79.899 Other long term (current) drug therapy; E66.9 Obesity, unspecified; Z68.35 Body mass index [BMI] 35.0-35.9, adult; Z66 Do not resuscitate
CPT/HCPCS: 36415; 71045; 80048; 80053; 80061; 82607; 82746; 82962; 83735; 83880; 84443; 84484; 85025; 86850; 86900; 86901; 86920; 93005; 97162; 97166; 97530; 97535; 99251; 99284; J7040; P9016; A4216; G0463; J1940; J2405

== ENCOUNTER 2021-01-26 10:00 | Emergency (ER) | payer MEDICARE, MEDICAID, SELFPAY ==
[2021-01-04 15:24] VITALS: BMI 34.8
[2021-01-26 10:01] VITALS: BP 96/46; PULSE 68; RESP 18; TEMP 36.2; O2SAT 98; BMI 38.1
--- NOTE | 2021-01-26 10:38 | EDS_ITS ---
HPI History of Present Illness Chief Complaint: Laceration Informant: patient Occured/Mechanism Mechanism/Context: Yes fall Onset/Context/Timing Onset: Today Context: Sudden Onset Timing: Continuous Quality of Pain: Aching Location: Right leg Worsened by: Nothing Relieved by: Nothing Narrative Narrative: Patient presents with laceration to her right leg that occurred today. Patient slid out of her wheelchair and cut her right lower leg on the footplate. Patient denies any paresthesias or weakness. Patient states her last tetanus is up-to-date. Patient describes her pain as aching. Patient states nothing makes it worse and nothing makes it better. Patient states the bleeding has been persistent since the injury. Patient also complains of pain in her low back which is chronic. 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 Chronic diastolic (congestive) heart failure Chronic lymphocytic thyroiditis Diabetes mellitus, type II Essential hypertension GI bleed (05/07/20) History of non-ST elevation myocardial infarction (NSTEMI) (03/26/20) Hyperlipidemia Hypothyroidism Lactic acidosis 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) Mitral valve insufficiency Non-rheumatic aortic stenosis Non-rheumatic mitral regurgitation Nonrheumatic tricuspid valve regurgitation NSTEMI (non-ST elevated myocardial infarction) Obesity (BMI 30.0-34.9) Osteopenia Pancytopenia Postoperative haemorrhage Schizophrenia Thrombocytopenia Tricuspid valve insufficiency Home Medications aspirin 81 mg PO DAILY@0800 06/30/17 [History Last Taken 01/03/21] ascorbic acid (vitamin C) 500 mg tablet 500 mg PO DAILY 09/13/18 [History Last Taken 01/04/21] insulin glargine U-300 conc 34 unit SC DAILY 04/23/19 [History Last Taken 01/04/21] cholecalciferol (vitamin D3) 5,000 unit PO DAILY 06/24/19 [History Last Taken 01/04/21] levothyroxine 100 mcg PO DAILY 07/24/19 [History Last Taken 01/04/21] folic acid 1 mg PO DAILY 02/10/20 [History Last Taken 01/04/21] insulin regular human 5 unit SQ TIDCM 02/10/20 [History Last Taken 01/04/21] mirabegron 25 mg tablet,extended release 24 hr 25 mg PO DAILY 06/17/20 [History Last Taken 01/04/21] pantoprazole 40 mg PO DAILY 10/20/20 [History Last Taken 01/04/21] haloperidol 1 mg PO BID PRN 11/13/20 [History Last Taken Unknown] albuterol sulfate 2 puff INHALATION Q4H PRN PRN 11/14/20 [History Last Taken Unknown] polyethylene glycol 3350 17 gm PO PRN PRN 11/14/20 [History Last Taken Unknown] acetaminophen [Tylenol] 650 mg PO Q6H PRN PRN #1 tab 12/05/20 [Rx Last Taken 12/30/20] bisacodyl 5 mg PO DAILY PRN #1 tab 12/05/20 [Rx Last Taken Unknown] carvedilol 3.125 mg tablet 3.125 mg PO BID #60 tab 12/17/20 [Rx Last Taken 01/04/21] isosorbide mononitrate 30 mg tablet,extended release 24 hr 30 mg PO DINNER #30 tab 12/17/20 [Rx Last Taken 01/03/21] nitroglycerin 0.4 mg sublingual tablet 0.4 mg SUBLINGUAL PRN PRN #25 tab 12/17/20 [Rx Last Taken Unknown] pravastatin 80 mg tablet 80 mg PO DAILY #30 tab 12/17/20 [Rx Last Taken 01/04/21] potassium chloride 40 meq PO DAILY 01/04/21 [History Last Taken 01/04/21] vit-iron fum-folic ac [ Tablet] 1 tab PO DAILY 01/04/21 [History Last Taken 01/04/21] ranolazine 1,000 mg PO BID 01/04/21 [History Last Taken 01/04/21] furosemide 40 mg tablet 40 mg PO BID #60 tab 01/11/21 [Rx Last Taken Unknown] Allergy/AdvReac Type Severity Reaction Status Date / Time aripiprazole [From [facility]] Allergy lethargy Verified 01/04/21 14:45 rosiglitazone Allergy unknown Verified 01/04/21 14:40 lisinopril AdvReac Intermediate gi upset Verified 01/04/21 14:40 atorvastatin AdvReac intolerance Verified 01/04/21 14:40 Family History Mother CAD (coronary artery disease) Father CAD (coronary artery disease) Surgical History History of appendectomy History of cholecystectomy History of colonoscopy (04/2020) History of coronary artery stent placement (08/20/18) History of esophagogastroduodenoscopy (EGD) (04/2020) History of left heart catheterization (06/25/19) History of spinal fusion History of tonsillectomy and adenoidectomy Social History housing: longterm Smoking Status: Never smoker alcohol intake: current details: occasional substance use type: does not use diet: low salt caffeine: No what type of physical activity do you participate in: walking frequency: daily seatbelt use: always do you feel safe at home: Yes ROS ROS ED Constitutional Constitutional ED: Denies chills or fever(s) Eyes Eyes: Denies blurry vision or change in vision ENT ENT ED: Denies rhinorrhea or sore throat Cardiovascular Cardiovascular: Denies chest pain or palpitations Respiratory/Chest Respiratory/Chest: Denies cough or dyspnea Gastrointestinal Gastrointestinal: Denies nausea or vomiting Genitourinary Genitourinary ED: Denies dysuria or hematuria Musculoskeletal Musculoskeletal: Reports back pain; Denies neck pain Integumentary Denies abscess or rash Neurologic Neurologic: Reports weakness; Denies headache(s) Allergic/Immunologic Allergic/Immunologic ED: Denies mouth swelling or urticaria EXAM Physical Exam Const Vital Signs: 01/26/21 10:01 01/26/21 11:17 01/26/21 13:24 Temperature 97.1 F L Temperature Source Temporal Pulse Rate 68 69 Respiratory Rate 18 14 16 Blood Pressure 96/46 L 111/57 L Blood Pressure Mean 62 75 Pulse Ox 98 96 Oxygen Delivery Method Room Air Room Air 01/26/21 15:10 01/26/21 16:10 Temperature Temperature Source Pulse Rate 72 74 Respiratory Rate 13 24 H Blood Pressure 115/52 L 107/67 Blood Pressure Mean 73 Pulse Ox Oxygen Delivery Method Positive well nourished and well developed General Appearance ED: well developed HEENT Reports moist mucous membranes Neck full ROM and supple Extremity Extremity Narrative: There is mild tenderness over the right lower leg. There is a 7 cm full-thickness L-shaped laceration over the anterior lateral aspect of the right lower leg. There are no foreign bodies. There is no active bleeding. There is adequate range of motion. Strength is 5/5 bilaterally in the lower extremities. Pedal pulses are equal bilaterally. Sensation was intact to light touch bilaterally in the lower extremities. Neuro CN's II-XII intact bilaterally, moves all extremities and no sensory deficits noted Sensorium / Orientation: alert Motor Exam: general weakness Psych mental status grossly normal Skin Skin Narrative: There is a 10 cm full-thickness U-shaped laceration over the anterolateral aspect of the right lower leg. There is no active bleeding. There are no foreign bodies noted. There is moderate gapping of the wound margins. There is no tendon involvement. MDM MDM MDM Narrative Medical decision making narrative: The wound was cleaned and irrigated with copious amounts of normal saline. The wound was anesthetized with 1% plain lidocaine locally. The wound was closed with 3 simple interrupted #4-0 Vicryl subcutaneous sutures and 6 #4-0 Vicryl horizontal mattress sutures under sterile technique. Patient tolerated the procedure well. Bacitracin dressing was applied. Patient was given a dose of [place] here. Patient was feeling better on reevaluation. Patient was instructed to keep the wound clean and dry. Patient was instructed to follow-up with her primary care physician in 3 to 5 days for wound recheck. Patient was instructed to follow-up in 7 to 10 days for suture removal. Patient understood and was agreeable with the plan. All questions were answered. Procedures Lacerations Right lower leg: Length: 10 cm Depth: Sub Q Shape: U-shaped Prep: Sterile Conditions and Chlorhexadine Laceration repair: Irrigated, Lidocaine, Local, Skin sutures (Six #4-0 Ethilon horizontal mattress sutures) and Subcutaneous sutures (3 simple interrupted #4-0 Vicryl) Irrigated (ml): 120 Discharge Plan Triage Chief Complaint: Laceration ED Provider: Marty Fam Dx/Rx/DC Orders Clinical Impression: Laceration of right lower leg Instructions: ED Laceration: All Closures Prescriptions: No Action ascorbic acid (vitamin C) 500 mg tablet 500 mg PO DAILY RF: 0 mirabegron 25 mg tablet extended release 24 hr 25 mg PO DAILY RF: 0 nitroglycerin 0.4 mg tablet, sublingual 0.4 mg sublingual PRN PRN (Reason: CHEST PAIN) Qty: 25 RF: 3 pravastatin 80 mg tablet 80 mg PO DAILY Qty: 30 RF: 11 carvedilol 3.125 mg tablet 3.125 mg PO BID Qty: 60 RF: 11 isosorbide mononitrate 30 mg tablet extended release 24 hr 30 mg PO DINNER Qty: 30 RF: 11 aspirin 81 MG tablet,chewable 81 mg PO DAILY@0800 RF: 0 insulin glargine U-300 conc 300/ML insulin pen 34 unit SC DAILY RF: 0 cholecalciferol (vitamin D3) 5,000 UNIT capsule 5,000 unit PO DAILY RF: 0 levothyroxine 100 MCG tablet 100 mcg PO DAILY RF: 0 insulin regular human 100 UNIT/ML solution 5 unit SQ TIDCM RF: 0 folic acid 1 MG tablet 1 mg PO DAILY RF: 0 pantoprazole 40 MG tablet 40 mg PO DAILY RF: 0 haloperidol 1 MG tablet 1 mg PO BID PRN (Reason: Nausea) RF: 0 polyethylene glycol 3350 17 GM packet 17 gm PO PRN PRN (Reason: Constipation) RF: 0 albuterol sulfate 1 PUFF inhaler 2 puff INHALATION Q4H PRN PRN (Reason: SOB/WHEEZING) RF: 0 acetaminophen [Tylenol] 325 mg Tablet 650 mg PO Q6H PRN PRN (Reason: Pain Score 1-10/Temp > 100.7 F) Qty: 1 RF: 0 bisacodyl 5 mg Tablet,Delayed Release (Dr/Ec) 5 mg PO DAILY PRN (Reason: constipation) Qty: 1 RF: 0 vit-iron fum-folic ac [ Tablet] 28 mg iron- 800 mcg Tablet 1 tab PO DAILY RF: 0 potassium chloride 20 mEq Packet 40 meq PO DAILY RF: 0 ranolazine 500 mg Tablet Extended Release 12 Hr 1,000 mg PO BID RF: 0 furosemide [Lasix] 40 mg tablet 40 mg PO BID Qty: 60 RF: 11 Primary Care Provider: Diana Cohen Referrals: Diana Cohen MD [Primary Care Provider] - 7 Days for suture removal Disposition Disposition: Home, Self Care Discharge Date/Time: 01/26/21 16:44
[2021-01-26] MEDS: HYDROcodone Bitartrate/Apap 5/325 Tablet PO (10:45)
[2021-01-26 11:17] VITALS: BP 111/57; PULSE 69; RESP 14; O2SAT 96
[2021-01-26 13:24] VITALS: RESP 16
[2021-01-26] MEDS: Lidocaine 1% (20 ml mdv) 20 ML Vial INFILT (15:09)
[2021-01-26 15:10] VITALS: BP 115/52; PULSE 72; RESP 13
--- NOTE | 2021-01-26 15:34 | ED.RN ---
CALLED [facility].
--- NOTE | 2021-01-26 16:09 | ED.RN ---
SPOKE WITH HOSPICE NURSE, THEY ARE AWARE SHE IS RETURNING TO [facility].
[2021-01-26 16:10] VITALS: BP 107/67; PULSE 74; RESP 24
--- NOTE | 2021-01-26 17:07 | ED.RN ---
spoke with anne, explained suture to come out in 7d
== END 2021-01-26 16:44 | disposition home or self-care (01) ==
PROVIDERS: Emergency Provider Emergency Medicine; PCP Internal Medicine
DX: S81.811A Laceration without foreign body, right lower leg, initial encounter (principal); I25.119 Atherosclerotic heart disease of native coronary artery with unspecified angina pectoris; I25.2 Old myocardial infarction; E66.9 Obesity, unspecified; X58.XXXA Exposure to other specified factors, initial encounter
CPT/HCPCS: 12004; 99284